=== PATIENT | female | born 1935 | race Caucasian/White ===

== ENCOUNTER 2021-10-31 13:27 | Inpatient (IN) ==
[2021-10-31 14:41] LABS: Partial Thromboplastin Ratio 0.9; Partial Thromboplastin Time 24.8 Seconds (21.0-31.0); Prothrombin Time 10.4 Seconds (9.0-12.0)
[2021-10-31 14:53] LABS: Basophils # (auto) 0.03 K/uL (0-0.2); Basophils % (auto) 0.4 %; Eosinophils # (auto) 0.03 K/uL (0-0.5); Eosinophils % (auto) 0.4 %; Hematocrit (blood only) 41.2 % (37-47); Hemoglobin 13.7 g/dL (12.0-16.0); Immature Granulocytes # (auto) 0.02 K/uL (0.00-0.02); Immature Granulocytes % (auto) 0.3 %; Lymphocytes # (auto) 1.87 K/uL (1.2-3.4); Lymphocytes % (auto) 26.7 %; Mean Corpuscular Hemoglobin 31.7 pg (25-34); Mean Corpuscular Hgb Conc 33.3 g/dL (32-36); Mean Corpuscular Volume 95.4 fL (80-100); Mean Platelet Volume 10.3 fL (7.4-10.4); Monocytes # (auto) 0.53 K/uL (0.11-0.59); Monocytes % (auto) 7.6 %; Neutrophils # (auto) 4.53 K/uL (1.4-6.5); Neutrophils % (auto) 64.6 %; Platelet Count 298 K/uL (130-400); RDW Coefficient of Variation 13.8 % (11.5-14.5); RDW Standard Deviation 47.7 fL (36.4-46.3); Red Blood Count 4.32 M/uL (4.2-5.4); White Blood Count 7.01 K/uL (4.8-10.8)
[2021-10-31 14:54] LABS: Alanine Aminotransferase 23 U/L (7-52); Albumin Globulin Ratio 1.3 (0.9-2); Albumin Level 4.2 gm/dl (3.4-5.0); Alkaline Phosphatase 40 U/L (34-104); Anion Gap 12 (3-11); Aspartate Aminotransferase 18 U/L (13-39); BUN Creatinine Ratio 25.6 (10-20); Bilirubin,Total 0.4 mg/dl (0.2-1.0); Blood Urea Nitrogen 32 mg/dl (6-23); Calcium 9.9 mg/dl (8.5-10.1); Carbon Dioxide 25 mmol/L (21-32); Chloride 100 mmol/L (98-107); Est GFR (African American) 44.8 ml/min; Est GFR (Non-African American) 38.6 ml/min; Globulin 3.2 gm/dl (2.5-4.0); Glucose 221 mg/dl (70-99(Fasting)); Potassium 4.1 mmol/L (3.5-5.1); Sodium 137 mmol/L (136-145); Total Protein 7.4 gm/dl (6.0-8.3)
--- NOTE | 2021-10-31 15:55 | Emergency Department Note ---
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 Patient states that time she did take her blood pressure was not feeling overall very well. The patient's systolic was greater than 200 systolic and when EMS arrived this was similar. The patient denies any fevers chills chest pains or shortness of br eath. The patient states that she has been having some erratic blood pressures over the last several weeks and is following Dr. Bauman with [facility]. Patient denies any alcohol tobacco or drug use. The patient denies any supplements stimulants or caffeine use. Patient did take 2 Tylenol this morning which she typically takes for arthritic changes or general body aches and had already taken this. Patient denies any numbness tingling or focal weakness. Patient denies any facial droop or slurred speech. The patient does have some GERD which is chronic but states that sometimes she has vision changes as she has a history of macular degeneration and had cataract surgeries completed within the last several months. Patient states that she has had some vision issues for some time but no acute issues today. Also of note the patient states that she currently resides in [place] but did recently moved from the [place] area to here to be closer to her family after she had developed COVID a year prior which is require hospitalization. ROS: See HPI for pertinent positives and negatives. A total of 10 systems were reviewed and otherwise negative. Past medical history: See below Surgical history: See below Social history: See below Physical Exam: GENERAL: NAD, wearing glasses, wearing a mask, non-toxic. EYE EXAM: Normal conjunctiva. PERRL, left greater than right anisocoria, extraocular muscles are intact, gross visual acuity intact with no visual field deficits. No obvious nystagmus noted. OROPHARYNX: Moist mucus membranes. Grossly normal dentition. NECK: Supple, no nuchal rigidity, no adenopathy, non-tender. No signs of meningismus. LUNGS: Clear to auscultation. Normal chest wall mechanics. HEART: NSR, no MRG. ABDOMEN: Abdomen soft, non-tender, normo-active bowel sounds, no masses, no rebound or guarding. BACK: No CVA TTP. SKIN: No rashes and no bruising. UPPER EXTREMITIES: Upper extremities are grossly normal. LOWER EXTREMITIES: Grossly normal, no edema. NEURO EXAM: A&O x3, cranial nerves II-XII grossly intact, normal speech, moves all 4 extremities on command w/o issue. Good finger to nose, no drift, no sensory deficits. Differential diagnoses: Migraine headache, meningitis, sinusitis, CO exposure, ICH, SAH, infection, tumor, headache, sinus thrombosis, arterial dissection, as well as other pathologies. Benign hypertension, hypertensive emergency, cardiovascular pathology, toxicologic, pheochromocytoma, electrolyte abnormality, renal disease, endorgan damage, as well as other pathologies. Course: Patient was seen and evaluated the bedside. Full history physical exam was performed. EKG interpreted by me Normal sinus rhythm, rate of 77, normal intervals, normal axis, slight elevation in lead III. No prior EKGs for comparison. No obvious concavity to the elevation in lead III Imaging Studies: See Below Cardiac monitoring: An order was placed for continuous cardiac monitoring. The monitor shows a rate of 87 with sinus rhythm. MDM: Patient was seen due to concern for headache and high blood pressure. The patient already had blood work completed. CT head and CT angiography of the head and neck were ordered as the patient did have some pupillary asymmetry which the patient states is unsure as whether or not there was there prior. Patient has a normal white count H&H and platelet count. The patient's kidney function with creatinine 1.2. Glucose elevated 221 patient is known diabetic. High-sensitivity troponin 17.7. EKG does show an elevation in lead III with Q waves no obvious concavity. The patient not complain of any chest pains or shortness of breath. Patient was treated with headache medication and a one- time dose of labetalol IV to help with blood pressure. Upon reassessment the patient did have improvement in her symptoms. The patient CT of the head is negative. CT angiography of the head is negative. CT angiography of the neck shows plaque within the right carotid bifurcation which is 70 per 80% stenotic in the proximal right ICA. I did convey these findings to the patient. I did discuss that given her positive troponin with associated elevated blood pressure do believe that the patient would benefit from observation and treatment. I did speak the on-call hospitalist Barber Day PA-C as well as Dr. Iverson. Past Med/Surg History Medical History DM2 (diabetes mellitus, type 2) H/O: HTN (hypertension) Surgical History Hx of cataract surgery Social History Smoking Status: Never smoker Hx Alcohol Use: No Hx Substance Use: No Feels Safe at Home: Yes Allergies Allergies Allergy/AdvReac Type Severity Reaction Status Date / Time latex Allergy Unknown Unknown Unverified 10/31/21 16:22 Penicillins Allergy Unknown Unknown Unverified 10/31/21 16:22 Sulfa (Sulfonamide Allergy Unknown Unknown Unverified 10/31/21 16:22 Antibiotics) Home Meds Home Medications Medication Instructions Recorded Confirmed Macular Degeneration Capsules 4 cap PO QAM 10/31/21 10/31/21 acetaminophen 500 mg tablet 1,000 mg PO Q8H PRN 10/31/21 10/31/21 aspirin 81 mg tablet,delayed 81 mg PO QAM 10/31/21 10/31/21 release atorvastatin 40 mg tablet 40 mg PO HS 10/31/21 10/31/21 coQ10 (ubiquinol) 100 mg capsule 100 mg PO QAM 10/31/21 10/31/21 cyanocobalamin (vitamin B-12) 1,000 mcg PO 3XWK 10/31/21 10/31/21 1,000 mcg tablet (Vitamin B-12) empagliflozin 25 mg tablet 25 mg PO QAM 10/31/21 10/31/21 (Jardiance) furosemide 20 mg tablet (Lasix) 20 mg PO 3XWK 10/31/21 10/31/21 ginkgo biloba 40 mg tablet 40 mg PO BID 10/31/21 10/31/21 glimepiride 2 mg tablet 2 mg PO DAILYBB 10/31/21 10/31/21 glimepiride 4 mg tablet 4 mg PO DAILYBB 10/31/21 10/31/21 lisinopril 20 mg tablet 20 mg PO BID 10/31/21 10/31/21 metformin 500 mg tablet 1,000 mg PO HS 10/31/21 10/31/21 metoprolol succinate 100 mg 100 mg PO QAM 10/31/21 10/31/21 tablet,extended release 24 hr polyvinyl alcohol-povidone (PF) 1 drp OPB BID 10/31/21 10/31/21 1.4 %-0.6 % eye drops in a dropperette (Refresh Classic (PF)) repaglinide 2 mg tablet 2 mg PO AC 10/31/21 10/31/21 triamcinolone acetonide 0.025 % 1 applic TOPICAL BID 10/31/21 10/31/21 topical cream Results & Data (ED) Vital Signs Vital Signs - 24 hr 10/31/21 13:57 10/31/21 15:20 10/31/21 16:10 Temperature 36.6 C Temperature Source Temporal Artery Scan Pulse Rate 89 Pulse Rate [Finger] Respiratory Rate 20 Respiratory Effort / Characteristics Non-Labored Spontaneous Non-Labored Respiratory Depth Normal Normal Respiratory Pattern Regular Regular Blood Pressure 213/111 H Blood Pressure [Right Arm] 190/96 H Blood Pressure Mean 145 Blood Pressure Mean [Right Arm] 127 Blood Pressure Position Sitting Pulse Oximetry 97 98 98 Oxygen Delivery Method Room Air Room Air Room Air Sepsis Recent Fever Within 48 Hours No Sepsis New/Unexplained Change in Mental Status No Sepsis Action Taken by Nursing No Action Required 10/31/21 16:53 10/31/21 17:00 Temperature Temperature Source Oral Pulse Rate Pulse Rate [Finger] 74 87 Respiratory Rate 18 Respiratory Effort / Characteristics Respiratory Depth Respiratory Pattern Blood Pressure Blood Pressure [Right Arm] 200/84 H 180/80 H Blood Pressure Mean Blood Pressure Mean [Right Arm] 122 113 Blood Pressure Position Pulse Oximetry 97 Oxygen Delivery Method Room Air Sepsis Recent Fever Within 48 Hours Sepsis New/Unexplained Change in Mental Status Sepsis Action Taken by [facility]dc Medications Current Medication List: was personally reviewed by me Laboratory Data Attestation: I reviewed the patient's lab results. Result diagrams: 10/31/21 14:09 10/31/21 14:09 Lab Results 10/31/21 10/31/21 10/31/21 Range/Units 14:09 14:09 14:09 WBC 7.01 (4.8-10.8) K/uL RBC 4.32 (4.2-5.4) M/uL Hgb 13.7 (12.0-16.0) g/dL Hct 41.2 (37-47) % MCV 95.4 (80-100) fL MCH 31.7 (25-34) pg MCHC 33.3 (32-36) g/dL RDW Std Deviation 47.7 H (36.4-46.3) fL RDW Coeff of Rojelio 13.8 (11.5-14.5) % Plt Count 298 (130-400) K/uL MPV 10.3 (7.4-10.4) fL Immature Gran % (Auto) 0.3 % Neut % (Auto) 64.6 % Lymph % (Auto) 26.7 % Platte % (Auto) 7.6 % Eos % (Auto) 0.4 % Baso % (Auto) 0.4 % Neut # (Auto) 4.53 (1.4-6.5) K/uL Lymph # (Auto) 1.87 (1.2-3.4) K/uL Platte # (Auto) 0.53 (0.11-0.59) K/uL Eos # (Auto) 0.03 (0-0.5) K/uL Baso # (Auto) 0.03 (0-0.2) K/uL Immature Gran # (Auto) 0.02 (0.00-0.02) K/uL PT 10.4 (9.0-12.0) Seconds INR 1.0 (0.9-1.1) APTT 24.8 (21.0-31.0) Seconds PTT Ratio 0.9 Sodium (136-145) mmol/L Potassium (3.5-5.1) mmol/L Chloride (98-107) mmol/L Carbon Dioxide (21-32) mmol/L Anion Gap (3-11) BUN (6-23) mg/dl Creatinine (0.6-1.2) mg/dl Est Cr Clr Drug Dosing Est GFR ( Amer) ml/min Est GFR (Non-Af Amer) ml/min BUN/Creatinine Ratio (10-20) Glucose (70-99(Fasting)) mg/dl Calcium (8.5-10.1) mg/dl Total Bilirubin (0.2-1.0) mg/dl AST (13-39) U/L ALT (7-52) U/L Alkaline Phosphatase (34-104) U/L Troponin I High Sens 17.7 H (0-14) pg/ml Total Protein (6.0-8.3) gm/dl Albumin (3.4-5.0) gm/dl Globulin (2.5-4.0) gm/dl Albumin/Globulin Ratio (0.9-2) 10/31/21 Range/Units 14:09 WBC (4.8-10.8) K/uL RBC (4.2-5.4) M/uL Hgb (12.0-16.0) g/dL Hct (37-47) % MCV (80-100) fL MCH (25-34) pg MCHC (32-36) g/dL RDW Std Deviation (36.4-46.3) fL RDW Coeff of Rojelio (11.5-14.5) % Plt Count (130-400) K/uL MPV (7.4-10.4) fL Immature Gran % (Auto) % Neut % (Auto) % Lymph % (Auto) % [place]atte % (Auto) % Eos % (Auto) % Baso % (Auto) % Neut # (Auto) (1.4-6.5) K/uL Lymph # (Auto) (1.2-3.4) K/uL [place]atte # (Auto) (0.11-0.59) K/uL Eos # (Auto) (0-0.5) K/uL Baso # (Auto) (0-0.2) K/uL Immature Gran # (Auto) (0.00-0.02) K/uL PT (9.0-12.0) Seconds INR (0.9-1.1) APTT (21.0-31.0) Seconds PTT Ratio Sodium 137 (136-145) mmol/L Potassium 4.1 (3.5-5.1) mmol/L Chloride 100 (98-107) mmol/L Carbon Dioxide 25 (21-32) mmol/L Anion Gap 12 H (3-11) BUN 32 H (6-23) mg/dl Creatinine 1.25 H (0.6-1.2) mg/dl Est Cr Clr Drug Dosing Not Reportable Est GFR ( Amer) 44.8 ml/min Est GFR (Non-Af Amer) 38.6 ml/min BUN/Creatinine Ratio 25.6 H (10-20) Glucose 221 H (70-99(Fasting)) mg/dl Calcium 9.9 (8.5-10.1) mg/dl Total Bilirubin 0.4 (0.2-1.0) mg/dl AST 18 (13-39) U/L ALT 23 (7-52) U/L Alkaline Phosphatase 40 (34-104) U/L Troponin I High Sens (0-14) pg/ml Total Protein 7.4 (6.0-8.3) gm/dl Albumin 4.2 (3.4-5.0) gm/dl Globulin 3.2 (2.5-4.0) gm/dl Albumin/Globulin Ratio 1.3 (0.9-2) Administered Medications Discontinued Medications Sodium Chloride (Nss) 500 mls @ 999 mls/hr IV .Q31M LUCAS Stop: 10/31/21 16:45 Last Infusion: 10/31/21 17:58 Dose: 0 mls/hr Documented by: [id number] Admin: 10/31/21 17:30 Dose: 999 mls/hr Documented by: [id number] Magnesium Sulfate/Dextrose (Magnesium Sulfate / D5w) 1 gm in 100 mls @ 100 mls/hr IV NOW ONE Stop: 10/31/21 17:06 Last Infusion: 10/31/21 17:54 Dose: 0 mls/hr Documented by: [id number] Admin: 10/31/21 16:41 Dose: 100 mls/hr Documented by: [id number] Sodium Chloride (Nss 1000ml) 500 mls @ 999 mls/hr IV .Q31M ONE Stop: 10/31/21 17:06 Last Admin: 10/31/21 17:58 Dose: 999 mls/hr Documented by: [id number] Ioversol (Optiray 320 125ml) 118 ml IV ONCE ONE Stop: 10/31/21 16:35 Last Admin: 10/31/21 16:34 Dose: 118 ml Documented by: [id number] Labetalol HCl (Labetalol Hcl Iv 5 Mg/Ml 20ml) 10 mg IV NOW STA Stop: 10/31/21 16:09 Last Admin: 10/31/21 16:26 Dose: 10 mg Documented by: [id number] Cosigned by: [id number] Ondansetron HCl (Ondansetron Inj 2 Mg/Ml 2 Ml Vial) 4 mg IV NOW STA Stop: 10/31/21 16:08 Last Admin: 10/31/21 16:26 Dose: 4 mg Documented by: [id number] Imaging Data Radiologist's Impression: Head CT 10/31/21 16:07 CT OF THE HEAD WITHOUT CONTRAST CLINICAL HISTORY: Headache. Pupillary asymmetry. COMPARISON STUDY: No previous studies for comparison. TECHNIQUE: Helical axial images of the head were obtained without IV contrast. Automated exposure control was utilized for the study. A dose lowering techn ique was utilized adhering to the principles of ALARA. FINDINGS: No acute intracranial hemorrhage, midline shift or mass effect is present. The ventricular system is unremarkable. The basal cisterns are patent. No extra-axial collections are present. There are no findings to suggest acute dural sinus thrombosis or acute territorial infarct. No significant calvarial abnormalities are present. Visualized portions of the sinuses and mastoid air cells are clear. IMPRESSION: No acute intracranial findings. ACT 112: Negative or not required by law. Electronically signed by: Demetrius Sena M.D. 10/31/2021 4:45 PM Head CTA 10/31/21 16:08 CT angio head w con CLINICAL HISTORY: L > R pupillary assymetry, frontal CAMACHO, elevated BP COMPARISON STUDY: CT brain without contrast from 10/23/2021 CT DOSE: 1054.64 mGy.cm TECHNIQUE: CT Angio of the brain was performed.followed by image post processing with coronal, and sagittal MIP reformats. Contrast Volume: Optiray 320, 118 ml FINDINGS: Vascular findings: There is normal enhancement within the internal carotid arteries bilaterally. There is normal enhancement noted within the anterior, middle and posterior cerebral arteries. Nonvascular findings: There is homogeneous attenuation of the brain parenchyma bilaterally. There is no evidence for an acute infarct or cerebral edema. IMPRESSION: Negative CT angiogram of the brain with contrast. ACT 112: Negative or not required by law. Electronically signed by: Clayton West M.D. 10/31/2021 4:47 PM Neck CTA 10/31/21 16:08 CT ANGIOGRAPHY OF THE NECK WITH CONTRAST CLINICAL HISTORY: L > R pupillary asymmetry, frontal CAMACHO, elevated BP COMPARISON STUDY: No previous studies for comparison. Technique: CT angiography of the carotid and vertebral arteries was obtained using Optiray and 3D reconstruction on an independent workstation. NASCET criteria was utilized. Automated exposure control was utilized for the study. A dose lowering technique was utilized adhering to the principles of ALARA. Findings: Visualized portions of lung apices are clear. No acute cervical spine fracture is noted. There is no cervical lymphadenopathy. Note is made of extensive calcified and not opacified plaque within the right carotid bifurcation. This results in a 70-80% stenosis of the proximal right internal carotid artery. Vessel measures approximately .7 mm in caliber at site of stenosis and 4 mm distally. The stenosis extends for approximately 5 mm in craniocaudal dimension. This plaque results in mild stenosis of the proximal right external carotid artery. No additional stenoses are identified within the bilateral common carotid or cervical internal carotid artery. There is moderate plaque within the left carotid bifurcation without stenosis. Bilateral cervical portions of the vertebral arteries are patent. There is plaque at the origin of the left vertebral artery without stenosis. There is no dissection within the neck. There is no aneurysm within the neck. IMPRESSION: 1. Extensive plaque within the right carotid bifurcation which results in 70-80% stenosis of the proximal right internal carotid artery. 2. No additional stenoses within the bilateral common carotid, cervical internal carotid or vertebral arteries. ACT 112: Negative or not required by law. Electronically signed by: Demetrius Sena M.D. 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 Patient Disposition: Admitted As Inpatient Forms Stand Alone Forms: My [facility] Prescriptions Prescriptions: No Action atorvastatin 40 mg Tablet 40 mg PO HS RF: 0 metformin 500 mg Tablet 1,000 mg PO HS RF: 0 repaglinide [Prandin] 2 mg Tablet 2 mg PO AC RF: 0 lisinopril 20 mg Tablet 20 mg PO BID RF: 0 metoprolol succinate 100 mg Tablet Extended Release 24 Hr 100 mg PO QAM RF: 0 cyanocobalamin (vitamin B-12) [Vitamin B-12] 1,000 mcg Tablet 1,000 mcg PO 3XWK RF: 0 aspirin [Aspir-81] 81 mg Tablet,Delayed Release (Dr/Ec) 81 mg PO QAM RF: 0 acetaminophen 500 mg Tablet 1,000 mg PO Q8H PRN (Reason: Pain) RF: 0 glimepiride 2 mg Tablet 2 mg PO DAILYBB RF: 0 ginkgo biloba 40 mg Tablet 40 mg PO BID RF: 0 triamcinolone acetonide [Aristocort] 0.025 % Cream 1 applic TOPICAL BID RF: 0 glimepiride 4 mg Tablet 4 mg PO DAILYBB RF: 0 furosemide [Lasix] 20 mg Tablet 20 mg PO 3XWK RF: 0 Refresh Classic (PF) 1.4-0.6 % Dropperette 1 drp OPB BID RF: 0 coQ10 (ubiquinol) 100 mg Capsule 100 mg PO QAM RF: 0 Jardiance 25 mg Tablet 25 mg PO QAM RF: 0 Macular Degeneration Capsules 4 cap PO QAM RF: 0 Referrals Referrals: PCP,NO [Physician] -
[2021-10-31] MEDS ORDERED: ONDANSETRON INJ 2 MG/ML 2 ML VIAL IV STA (16:07)
[2021-10-31] MEDS ORDERED: MAGNESIUM SULFATE / D5W 1 GM/100 ML BAG IV ONE (16:07)
[2021-10-31] MEDS ORDERED: LABETALOL HCL IV 5 MG/ML 20ML IV STA (16:08)
[2021-10-31] MEDS ORDERED: SODIUM CHLORIDE 0.9% 500 ML IV SCH (16:15)
[2021-10-31] MEDS ORDERED: OPTIRAY 320 125ml IV ONE (16:34)
[2021-10-31] MEDS ORDERED: SODIUM CHLORIDE 0.9% 1000ML 500 ML IV ONE (16:36)
--- NOTE | 2021-10-31 16:47 | CT Scan Report ---
CT OF THE HEAD WITHOUT CONTRAST CLINICAL HISTORY: Headache. Pupillary asymmetry. COMPARISON STUDY: No previous studies for comparison. TECHNIQUE: Helical axial images of the head were obtained without IV contrast. Automated exposure con trol was utilized for the study. A dose lowering technique was utilized adhering to the principles o f ALARA. FINDINGS: No acute intracranial hemorrhage, midline shift or mass effect is present. The ventricular system is unremarkable. The basal cisterns are patent. No extra-axial collections are present. There are no findings to suggest acute dural sinus thrombosis or acute territorial infarct. No significant calvarial abnormalities are present. Visualized portions of the sinuses and mastoid air cells are dayanna ar. IMPRESSION: No acute intracranial findings. ACT 112: Negative or not required by law. Electronically signed by: Demetrius Sena M.D. 10/31/2021 4:45 PM
--- NOTE | 2021-10-31 16:49 | CT Scan Report ---
CT angio head w con CLINICAL HISTORY: L > R pupillary assymetry, frontal CAMACHO, elevated BP COMPARISON STUDY: CT brain without contrast from 10/23/2021 CT DOSE: 1054.64 mGy.cm TECHNIQUE: CT Angio of the brain was performed.followed by image post processing with coronal, and s agittal MIP reformats. Contrast Volume: Optiray 320, 118 ml FINDINGS: Vascular findings: There is normal enhancement within the internal carotid arteries bilaterally. The re is normal enhancement noted within the anterior, middle and posterior cerebral arteries. Nonvascular findings: There is homogeneous attenuation of the brain parenchyma bilaterally. There is no evidence for an acute infarct or cerebral edema. IMPRESSION: Negative CT angiogram of the brain with contrast. ACT 112: Negative or not required by law. Electronically signed by: Clayton West M.D. 10/31/2021 4:47 PM
--- NOTE | 2021-10-31 16:56 | CT Scan Report ---
CT ANGIOGRAPHY OF THE NECK WITH CONTRAST CLINICAL HISTORY: L > R pupillary asymmetry, frontal CAMACHO, elevated BP COMPARISON STUDY: No previous studies for comparison. Technique: CT angiography of the carotid and vertebral arteries was obtained using Optiray and 3D rec onstruction on an independent workstation. NASCET criteria was utilized. Automated exposure control was utilized for the study. A dose lowering technique was utilized adhering to the principles of ALA RA. Findings: Visualized portions of lung apices are clear. No acute cervical spine fracture is noted. Th ere is no cervical lymphadenopathy. Note is made of extensive calcified and not opacified plaque with in the right carotid bifurcation. This results in a 70-80% stenosis of the proximal right internal ca rotid artery. Vessel measures approximately .7 mm in caliber at site of stenosis and 4 mm distally. T he stenosis extends for approximately 5 mm in craniocaudal dimension. This plaque results in mild yosi nosis of the proximal right external carotid artery. No additional stenoses are identified within the bilateral common carotid or cervical internal carotid artery. There is moderate plaque within the le ft carotid bifurcation without stenosis. Bilateral cervical portions of the vertebral arteries are pa tent. There is plaque at the origin of the left vertebral artery without stenosis. There is no dissec tion within the neck. There is no aneurysm within the neck. IMPRESSION: 1. Extensive plaque within the right carotid bifurcation which results in 70-80% stenosis of the prox imal right internal carotid artery. 2. No additional stenoses within the bilateral common carotid, cervical internal carotid or vertebral arteries. ACT 112: Negative or not required by law. Electronically signed by: Demetrius Sena M.D. 10/31/2021 4:54 PM
[2021-10-31] MEDS ORDERED: STAT IV Infusion **Titration per Protocol STA (18:50)
[2021-10-31] MEDS: niCARdipine 25 MG in SODIUM CHLORIDE 0.9% 240 ML IV SCH ×2 (19:05→23:32)
--- NOTE | 2021-10-31 19:12 | History & Physical Report ---
Date of Service October 31, 2021 Assessment & Plan (1) Hypertensive urgency: (2) Elevated troponin I level: (3) Carotid artery stenosis: (4) Diabetes mellitus with kidney complication, without long-term current use of insulin: Plan: HTNsive urgency- No hypertensive emergency at this point. BP persistently in 220s-230s despite a dose of labetalol in ED. will admit to PCU on nicardipine drip with aim to slowly decrease the blood pressure. Continue home lisinopril, toprol and lasix- will uptitrate home meds once BP better controlled - will get echo and renal duplex; low salt diet Carotid artery disease- seen in CT- 70-80% stenosis- vascular surgery eval Elevated trop- mild elevation, likely demand ischemia, no CP, no EKG changes, no prior cardiac history. Recheck in am. Continue tele. 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 History of Present Illness Chief Complaint: Frontal headache, fogginess- hypertensive urgency Primary Care Provider: Dalila Bauman MD 86 yo female with h/o HTN, DM-2, CKD who presented to the ED with hypertensive urgency. Patient is from [place] and moved here [address] Bauman. Last visit 10/16. Multiple medications were adjusted including her blood pressure medications and diabetic medications. Did not check her BP in between as asymptomatic. This morning, after breakfast around 11 am, she had a frontal headache along with worsening head fogginess (had foggy head since Covid last year but worse. She took her BP as she was not feeling very well and her BP monitor would not read. EMS was called and her BP was in 230s for EMS. In the ED, BP in 190s-230s. Labs, EKG and CT reviewed. No neurological symptoms or deficits. Denies any chest pain, lightheadedness dizziness. States she did take her lisinopril and toprol this morning. Her BP was in 230s during my encounter even after iv labetalol but she was comfortable and neurologically intact. She was asking for food and drink. States she is to get echo and renal US as OP and requested to be done here. Allergies Allergy/AdvReac Type Severity Reaction Status Date / Time latex Allergy Unknown Unknown Unverified 10/31/21 16:22 Penicillins Allergy Unknown Unknown Unverified 10/31/21 16:22 Sulfa (Sulfonamide Allergy Unknown Unknown Unverified 10/31/21 16:22 Antibiotics) Home Medications Medication Instructions Recorded Confirmed Type Macular Degeneration Capsules 4 cap PO QAM 10/31/21 10/31/21 History acetaminophen 500 mg tablet 1,000 mg PO Q8H PRN 10/31/21 10/31/21 History aspirin 81 mg tablet,delayed 81 mg PO QAM 10/31/21 10/31/21 History release atorvastatin 40 mg tablet 40 mg PO HS 10/31/21 10/31/21 History coQ10 (ubiquinol) 100 mg capsule 100 mg PO QAM 10/31/21 10/31/21 History cyanocobalamin (vitamin B-12) 1,000 mcg PO 3XWK 10/31/21 10/31/21 History 1,000 mcg tablet (Vitamin B-12) empagliflozin 25 mg tablet 25 mg PO QAM 10/31/21 10/31/21 History (Jardiance) furosemide 20 mg tablet (Lasix) 20 mg PO 3XWK 10/31/21 10/31/21 History ginkgo biloba 40 mg tablet 40 mg PO BID 10/31/21 10/31/21 History glimepiride 2 mg tablet 2 mg PO DAILYBB 10/31/21 10/31/21 History glimepiride 4 mg tablet 4 mg PO DAILYBB 10/31/21 10/31/21 History lisinopril 20 mg tablet 20 mg PO BID 10/31/21 10/31/21 History metformin 500 mg tablet 1,000 mg PO HS 10/31/21 10/31/21 History metoprolol succinate 100 mg 100 mg PO QAM 10/31/21 10/31/21 History tablet,extended release 24 hr polyvinyl alcohol-povidone (PF) 1 drp OPB BID 10/31/21 10/31/21 History 1.4 %-0.6 % eye drops in a dropperette (Refresh Classic (PF)) repaglinide 2 mg tablet 2 mg PO AC 10/31/21 10/31/21 History triamcinolone acetonide 0.025 % 1 applic TOPICAL BID 10/31/21 10/31/21 History topical cream Past Med/Surg History Medical History DM2 (diabetes mellitus, type 2) H/O: HTN (hypertension) Surgical History Hx of cataract surgery Social History Smoking Status: Never smoker Hx Alcohol Use: No Hx Substance Use: No Feels Safe at Home: Yes Review of Systems Review of Systems: All systems reviewed & are unremarkable except as noted in Subjective Physical Exam Physical Exam: General: Sitting comfortably in bed, not in distress, on room air HEENT: EOMI, ANABEL, MMM Chest: Clear breath sounds bilaterally, no wheezes or crackles CVS: Regular rate and rhythm, normal heart sounds, no murmur Abdomen: Soft, non tender, not distended, normal bowel sounds Neuro: Awake, alert, oriented, conversing well, non focal Extremities: No cyanosis, clubbing or edema Results & Data Results & Data ([facility]) Vital Signs (Past 12 Hours) Vital Signs Temp Pulse Pulse Resp BP BP Pulse Ox 10/31/21 18:33 230/100 H 10/31/21 18:25 78 234/127 H 10/31/21 17:00 87 18 180/80 H 97 10/31/21 16:53 74 200/84 H 10/31/21 16:10 98 10/31/21 15:20 190/96 H 98 10/31/21 13:57 36.6 C 89 20 213/111 H 97 Laboratory Results Short CBC 10/31/21 Range/Units 14:09 WBC 7.01 (4.8-10.8) K/uL Hgb 13.7 (12.0-16.0) g/dL Hct 41.2 (37-47) % Plt Count 298 (130-400) K/uL BMP 10/31/21 14:09 Sodium 137 Potassium 4.1 Chloride 100 Carbon Dioxide 25 BUN 32 H Creatinine 1.25 H Glucose 221 H Calcium 9.9 Liver Function 10/31/21 Range/Units 14:09 Total Bilirubin 0.4 (0.2-1.0) mg/dl AST 18 (13-39) U/L ALT 23 (7-52) U/L Alkaline Phosphatase 40 (34-104) U/L Albumin 4.2 (3.4-5.0) gm/dl Diagnostic Findings Head CT 10/31/21 16:07 CT OF THE HEAD WITHOUT CONTRAST CLINICAL HISTORY: Headache. Pupillary asymmetry. COMPARISON STUDY: No previous studies for comparison. TECHNIQUE: Helical axial images of the head were obtained without IV contrast. Automated exposure control was utilized for the study. A dose lowering technique was utilized adhering to the principles of ALARA. FINDINGS: No acute intracranial hemorrhage, midline shift or mass effect is present. The ventricular system is unremarkable. The basal cisterns are patent. No extra-axial collections are present. There are no findings to suggest acute dural sinus thrombosis or acute territorial infarct. No significant calvarial abnormalities are present. Visualized portions of the sinuses and mastoid air cells are clear. IMPRESSION: No acute intracranial findings. ACT 112: Negative or not required by law. Electronically signed by: Demetrius Sena M.D. 10/31/2021 4:45 PM Head CTA 10/31/21 16:08 CT angio head w con CLINICAL HISTORY: L > R pupillary assymetry, frontal CAMACHO, elevated BP COMPARISON STUDY: CT brain without contrast from 10/23/2021 CT DOSE: 1054.64 mGy.cm TECHNIQUE: CT Angio of the brain was performed.followed by image post processing with coronal, and sagittal MIP reformats. Contrast Volume: Optiray 320, 118 ml FINDINGS: Vascular findings: There is normal enhancement within the internal carotid arteries bilaterally. There is normal enhancement noted within the anterior, middle and posterior cerebral arteries. Nonvascular findings: There is homogeneous attenuation of the brain parenchyma bilaterally. There is no evidence for an acute infarct or cerebral edema. IMPRESSION: Negative CT angiogram of the brain with contrast. ACT 112: Negative or not required by law. Electronically signed by: Clayton West M.D. 10/31/2021 4:47 PM Neck CTA 10/31/21 16:08 CT ANGIOGRAPHY OF THE NECK WITH CONTRAST CLINICAL HISTORY: L > R pupillary asymmetry, frontal CAMACHO, elevated BP COMPARISON STUDY: No previous studies for comparison. Technique: CT angiography of the carotid and vertebral arteries was obtained using Optiray and 3D reconstruction on an independent workstation. NASCET criteria was utilized. Automated exposure control was utilized for the study. A dose lowering technique was utilized adhering to the principles of ALARA. Findings: Visualized portions of lung apices are clear. No acute cervical spine fracture is noted. There is no cervical lymphadenopathy. Note is made of extensive calcified and not opacified plaque within the right carotid bifurcation. This results in a 70-80% stenosis of the proximal right internal carotid artery. Vessel measures approximately .7 mm in caliber at site of stenosis and 4 mm distally. The stenosis extends for approximately 5 mm in craniocaudal dimension. This plaque results in mild stenosis of the proximal right external carotid artery. No additional stenoses are identified within the bilateral common carotid or cervical internal carotid artery. There is moderate plaque within the left carotid bifurcation without stenosis. Bilateral cervical portions of the vertebral arteries are patent. There is plaque at the origin of the left vertebral artery without stenosis. There is no dissection within the neck. There is no aneurysm within the neck. IMPRESSION: 1. Extensive plaque within the right carotid bifurcation which results in 70-80% stenosis of the proximal right internal carotid artery. 2. No additional stenoses within the bilateral common carotid, cervical internal carotid or vertebral arteries. ACT 112: Negative or not required by law. Electronically signed by: Demetrius Sena M.D. 10/31/2021 4:54 PM Medications Administered Current Inpatient Medications Nicardipine HCl 25 mg/ Sodium (Chloride) 250 mls @ 50 mls/hr IV .Q5H [facility]; Protocol Stop: 11/30/21 18:59
[2021-10-31] MEDS ORDERED: GLUCOSE 10 TABS/TUBE PO PRN (22:00)
[2021-10-31] MEDS ORDERED: CARBOHYDRATES FOR HYPOGLYCEMIA PO PRN (22:00)
[2021-10-31] MEDS ORDERED: GLUCOSE 40% GEL 15 GM TUBE PO PRN (22:00)
[2021-10-31] MEDS ORDERED: GLUCAGON FOR INJ 1 MG VIAL SQ PRN (22:00)
[2021-10-31] MEDS ORDERED: DEXTROSE 50% 50 ML SYRINGE IV PRN (22:00)
[2021-10-31] MEDS: ACETAMINOPHEN 500 MG TAB PO PRN (22:29)
[2021-10-31] MEDS: INSULIN ASPART PER UNIT SC SCH (23:22)
[2021-10-31] MEDS: INSULIN GLARGINE SOLOSTAR 100 UNITS/ML 3 ML PEN SC SCH (23:23)
[2021-10-31] MEDS: lisinopril 20 MG TAB PO SCH (23:24)
[2021-10-31] MEDS: ATORVASTATIN 40 MG TAB PO SCH (23:24)
[2021-11-01] MEDS: niCARdipine 25 MG in SODIUM CHLORIDE 0.9% 240 ML IV SCH ×7 (02:30→17:06)
[2021-11-01] MEDS ORDERED: NITROGLYCERIN SL 0.4 MG/TAB TAB SL STA ×2 (05:26→05:29)
[2021-11-01] MEDS ORDERED: NITROGLYCERIN SL 0.4 MG/TAB TAB ONE (05:28)
[2021-11-01] MEDS ORDERED: MoRPHine SULFATE 2 MG/ML CARP IV STA (05:48)
--- NOTE | 2021-11-01 06:06 | Electrocardiogram Report ---
Test Reason : Blood Pressure : / mmHG Vent. Rate : 077 BPM Atrial Rate : 077 BPM P-R Int : 198 ms QRS Dur : 086 ms QT Int : 374 ms P-R-T Axes : 102 033 086 degrees QTc Int : 423 ms Normal sinus rhythm Cannot rule out Anterior infarct , age undetermined Possible Inferior infarct Abnormal ECG No previous ECGs available Confirmed by Nathen Knutson ([id number]) on 11/01/2021 6:05:41 AM Referred By: Confirmed By:Nathen Knutson
[2021-11-01 07:21] LABS: Hemoglobin 12.4 g/dL (12.0-16.0); Mean Corpuscular Hgb Conc 32.6 g/dL (32-36); Mean Corpuscular Volume 98.2 fL (80-100); Mean Platelet Volume 10.2 fL (7.4-10.4); Platelet Count 280 K/uL (130-400); RDW Standard Deviation 49.7 fL (36.4-46.3); Red Blood Count 3.87 M/uL (4.2-5.4); White Blood Count 9.47 K/uL (4.8-10.8)
[2021-11-01 07:26] LABS: Troponin I High Sensitivity 33.8 pg/ml (0-14)
[2021-11-01 07:31] LABS: BUN Creatinine Ratio 19.5 (10-20); Calcium 9.1 mg/dl (8.5-10.1); Creatinine Clr Calc Pharmacy 26.4 ml/min; Est GFR (African American) 32.3 ml/min; Est GFR (Non-African American) 27.8 ml/min; Potassium 3.9 mmol/L (3.5-5.1)
[2021-11-01] MEDS ORDERED: ALUMINUM/MAGNESIUM SUSP 30 ML UDC PO STA (07:33)
[2021-11-01 08:40] LABS: Estimated Average Glucose 249 mg/dl; Hemoglobin A1C 10.3 % (4.5-5.6)
--- NOTE | 2021-11-01 08:54 | Ultrasound Report ---
US duplex renal artery CLINICAL HISTORY: uncontrolled hypertension COMPARISON STUDY: No previous studies for comparison. TECHNIQUE: Color and duplex Doppler sonography of the abdominal aorta and bilateral renal arteries wa s performed. FINDINGS: There is moderate bilateral renal cortical thinning. The right kidney measured 9.9 cm in le ngth and the left measured 11.5 cm. There is no hydronephrosis. Peak systolic velocity within the abd ominal aorta was 163 cm/s. Maximal velocity within the left renal artery was within its proximal aspe ct, with a peak systolic velocity of 239 cm/s. The left renal to aortic ratio was 1.47. Systolic upst rokes within the segmental vessels of the left kidney were within normal limits. Peak systolic veloci ty within the right renal artery was 113 cm/s. Delayed systolic upstrokes within the segmental vessel s of the right kidney were noted. IMPRESSION: 1. Mildly elevated velocities within the left renal artery with without significant increase in renal to aortic ratio. Normal segmental waveforms within the left kidney. These findings are equivocal for left-sided renal artery stenosis. A CTA of the abdomen could be obtained for further evaluation. 2. Normal velocities within the right renal artery however delayed upstrokes within the segmental ves sels raise the possibility of an upstream stenosis. This can be assessed on CTA. ACT 112: Negative or not required by law. Electronically signed by: Demetrius Sena M.D. 11/01/2021 8:53 AM
[2021-11-01] MEDS ORDERED: FUROSEMIDE 20 MG TAB PO SCH (09:00)
[2021-11-01] MEDS: lisinopril 20 MG TAB PO SCH ×2 (09:03→20:31)
[2021-11-01] MEDS: METOPROLOL SUCC 50MG EXT REL TAB PO SCH (09:03)
[2021-11-01] MEDS: PANTOprazole 40 MG TAB PO SCH (09:03)
[2021-11-01] MEDS: ASPIRIN 81 MG ECTAB PO SCH (09:03)
--- NOTE | 2021-11-01 09:06 | Consultation ---
Date of Consultation November 01, 2021 Assessment & Plan (1) More than 50 percent stenosis of right internal carotid artery: Pt with incidental finding of 70% R ICA stenosis. She is asymptomatic from this. After discussion with Dr Witt, recommends pt be reeval in 6 months with a carotid US and OV. Our office will call pt to schedule. Please call if needed. History of Present Illness Reason for Consultation: R ICA stenosis Attending Physician: Francisco Iverson MD History of Present Illness 86 yo f with hx of DMII, HTN, macular degeneration, hypercholesterolemia, vertigo, admitted with hypertensive urgency, seen in consultation today for R ICA stenosis of 70% by CTA. Pt states no prior knowledge of this. Denies amaurosis, unilateral extremity weakness or numbness, facial droop, slurred speech, fever, chest pain, SOB, abd pain, N/V, rest pain, claudication, other complaints. Pt states she lives independently but does have family nearby. CTA neck demonstrates approx 70% R ICA. Allergies Allergy/AdvReac Type Severity Reaction Status Date / Time latex Allergy Unknown Unknown Unverified 10/31/21 16:22 Penicillins Allergy Unknown Unknown Unverified 10/31/21 16:22 Sulfa (Sulfonamide Allergy Unknown Unknown Unverified 10/31/21 16:22 Antibiotics) Home Medications Medication Instructions Recorded Confirmed Type Macular Degeneration Capsules 4 cap PO QAM 10/31/21 10/31/21 History acetaminophen 500 mg tablet 1,000 mg PO Q8H PRN 10/31/21 10/31/21 History aspirin 81 mg tablet,delayed 81 mg PO QAM 10/31/21 10/31/21 History release atorvastatin 40 mg tablet 40 mg PO HS 10/31/21 10/31/21 History coQ10 (ubiquinol) 100 mg capsule 100 mg PO QAM 10/31/21 10/31/21 History cyanocobalamin (vitamin B-12) 1,000 mcg PO 3XWK 10/31/21 10/31/21 History 1,000 mcg tablet (Vitamin B-12) empagliflozin 25 mg tablet 25 mg PO QAM 10/31/21 10/31/21 History (Jardiance) furosemide 20 mg tablet (Lasix) 20 mg PO 3XWK 10/31/21 10/31/21 History ginkgo biloba 40 mg tablet 40 mg PO BID 10/31/21 10/31/21 History glimepiride 2 mg tablet 2 mg PO DAILYBB 10/31/21 10/31/21 History glimepiride 4 mg tablet 4 mg PO DAILYBB 10/31/21 10/31/21 History lisinopril 20 mg tablet 20 mg PO BID 10/31/21 10/31/21 History metformin 500 mg tablet 1,000 mg PO HS 10/31/21 10/31/21 History metoprolol succinate 100 mg 100 mg PO QAM 10/31/21 10/31/21 History tablet,extended release 24 hr polyvinyl alcohol-povidone (PF) 1 drp OPB BID 10/31/21 10/31/21 History 1.4 %-0.6 % eye drops in a dropperette (Refresh Classic (PF)) repaglinide 2 mg tablet 2 mg PO AC 10/31/21 10/31/21 History triamcinolone acetonide 0.025 % 1 applic TOPICAL BID 10/31/21 10/31/21 History topical cream Patient History Medical History DM2 (diabetes mellitus, type 2) H/O: HTN (hypertension) Surgical History Hx of cataract surgery Social History Smoking Status: Never smoker Second Hand Exposure: Yes; Do You Dip or Chew Tobacco: No; Hx Alcohol Use: Yes Alcohol type: wine Hx Substance Use: No Preferred Language: Slovenian Communication Ability: Effective Office Equipment Mechanic Required: No Beliefs That Will Affect Care: None Current Living Situation: Alone Other Information That Helps Us Care for You: No Feels Safe at Home: Yes Safety Concerns: Feels Safe At This Time Assistive Devices: Walker Review of Systems Review of Systems: All systems reviewed & are unremarkable except as noted in HPI & below CAMACHO yesterday upon admission, improved today. Physical Exam Constitutional: WD/WN, vitals as above + obese, cooperative and comfortable; not in distress ENMT: Ears: no hearing impairment Neck: trachea midline Respiratory: normal respiratory effort, lungs clear to auscultation Auscultation: + diminished lung sounds Cardiovascular: Rate/Rhythm: regular rate and regular rhythm Vessels: + carotid bruit, femoral pulses present, posterior tibial pulses present, dorsalis pedis pulses present, brachial pulses present and radial pulses present; + abno rmal peripheral pulses Extremities: normal capillary refill and + edema (trace) Gastrointestinal (Abdomen): Inspection/Auscultation: abdomen normal to inspection and normal bowel sounds Percussion/Palpation: abdomen soft; abdomen nontender Musculoskeletal: no cyanosis or clubbing, extremities motor strength 5/5 Skin: no rashes, warm and dry Neurologic: moves all extremities and awake; no focal motor deficits and not confused Psychiatric: A+Ox3, euthymic affect Results & Data ([facility]) Vital Signs (Past 12 Hours) Vital Signs Temp Pulse Pulse Resp BP Pulse Ox 11/01/21 08:38 85 163/63 H 11/01/21 07:50 91 H 163/92 H 11/01/21 07:31 68 151/57 H 11/01/21 07:00 71 126/55 L 11/01/21 06:30 83 146/56 H 11/01/21 06:00 79 165/60 H 11/01/21 05:50 146/62 H 11/01/21 05:46 79 133/50 L 11/01/21 05:09 176/64 H 11/01/21 04:48 105 H 167/62 H 11/01/21 04:00 36.9 C 85 18 140/58 L 96 11/01/21 03:30 175/67 H 11/01/21 03:00 82 146/60 H 11/01/21 02:30 83 175/85 H 11/01/21 02:00 164/53 H 11/01/21 01:30 88 16 158/56 H 11/01/21 01:00 151/55 H 11/01/21 00:30 146/53 H 11/01/21 00:15 155/57 H 11/01/21 00:00 66 161/60 H 10/31/21 23:46 140/60 10/31/21 23:30 190/99 H 10/31/21 23:15 157/60 H 10/31/21 23:00 88 177/72 H 10/31/21 22:43 173/74 H 10/31/21 22:20 36.8 C 78 18 200/72 H 96
[2021-11-01] MEDS: INSULIN GLARGINE SOLOSTAR 100 UNITS/ML 3 ML PEN SC SCH ×3 (09:11→20:31)
[2021-11-01] MEDS: INSULIN ASPART PER UNIT SC SCH ×4 (09:38→20:32)
--- NOTE | 2021-11-01 11:31 | XRay Report ---
XR chest 1V portable HISTORY: hypertension COMPARISON: None. FINDINGS: No pneumothorax. No pleural effusions. The cortex and what is mildly enlarged. A few bibasi lar linear densities consistent with subsegmental atelectasis. Otherwise, no focal lung consolidation s to suggest pneumonia. No evidence for pulmonary edema. There are calcifications within the aortic k nob. Degenerative changes noted within the shoulder. IMPRESSION: Chronic changes as described above. No acute process within the chest. ACT 112: Negative or not required by law. Electronically signed by: Alber Capellan M.D. 11/01/2021 11:30 AM
[2021-11-01] MEDS ORDERED: VERAPAMIL HCL 40 MG TAB PO ONE (12:21)
[2021-11-01] MEDS ORDERED: SODIUM CHLORIDE 0.9% 1000ML 1,000 ML IV SCH (12:30)
--- NOTE | 2021-11-01 12:33 | Cardiology Consultation ---
Date of Consultation November 01, 2021 Assessment & Plan (1) Hypertensive urgency: (2) Elevated troponin I level: (3) Carotid artery stenosis: 86 year old female (1) Hypertensive urgency: Patient with longstanding history of difficult to control hypertension. Reviewed her medication regimen for when she initially established with local care in January,. At that time she was on amlodipine 5 mg daily which had since been discontinued apparently in early October, due to concerns of edema. She had previously been on lisinopril 10 mg daily and this is most recently been titrated to 20 mg twice daily. She had previously been on spironolactone 25 mg daily. This was cut back to 12.5 mg daily in January,, and then discontinued completely in June,, apparently due to mildly elevated potassium level, 5.2 mmol/L noted at the time medication was discontinued. She has been on metoprolol succinate on a chronic basis 100 mg daily which is unchanged. More recently, Lasix 20 mg every Thursday added. Patient notes that she has some degree of frustration and feels she would understand her medication regimen if she could take the same medication every day. Present we will wean her nicardipine infusion and start short acting verapamil for blood pressure and negative inotropic effects, 40 mg 3 times daily, with plans to transition it to long-acting formulation as tolerated. Holding furosemide due to acute increase in her creatinine. She tolerates a daily dose of loop diuretic, reinitiation of low-dose spironolactone, 25 mg daily may be reasonable in the future, but noted with recent increase in the lisinopril, hyperkalemia may once again be an issue. (2) Elevated troponin I level: Transient chest tightness, in the setting of hospitalization elevated blood pressure. EKG performed x2 without acute findings. J-point elevation noted in the inferior leads at time of EKG at 10:34 AM, but she certainly does not have symptoms to suggest that she is having a transmural myocardial infarction. Her echocardiogram performed this morning revealed normal LV wall motion, with hyperdynamic left ventricular systolic function. Mild elevation in her at bedtime troponin is likely explained on the part of hyperdynamic left ventricular systolic function in the setting of high blood pressure. She denies having had a past history of coronary heart disease. Continue chronic therapy with aspirin. (3) Carotid artery stenosis: 70% right internal carotid stenosis noted on CT angiogram of the neck vessels. No neurologic symptoms. Patient seen by vascular surgery. Agree with risk factor management such as blood pressure control, ongoing statin therapy with atorvastatin 40 mg daily, vascular recommends clinic follow-up with them and repeat imaging at a 6-month interval. (4) acute kidney injury Baseline creatinine typically around 1.3, with measurement on presentation last evening 1.25, up to 1.64 today, having received a contrast dose. Proceed with gentle IV fluids, normal saline, 70 ml / hr , to stop after 1 L or sooner. History of Present Illness Attending Physician: Francisco Iverson MD History of Present Illness Ramila Urrutia is a delightful 86 year old female seen in cardiology consultation per the request of Dr Iverson for the evaluation of difficult to control hypertension , chest pain, and mild elevation in HS troponin. Patient moved to the area from [facility] in 2020. She moved to be closer to her family, and notes that her daughter works in the [employer] at [facility] [employer]. The patient describes a longstanding history of difficulty control hypertension. She had been followed intermittently by cardiology in the past for 30 years. She describes having been hospitalized on 2 separate occasions in the past for uncontrolled hypertension. The most recent episode had occurred 4 years ago at which time she had a 3-day hospital stay. Yesterday, she was in her normal state of health. She got up and had breakfast at 8 AM. She took a nap at 11 AM, and when she got up she felt a fogginess with regards to her thinking. She notes that she has had some degree of foggy thinking since having been ill with COVID several months ago. She attempted to take her BP at home , however it was so high the cuff would not register, prompting presentation to the ED. Her presenting blood pressure 10/31/2021 at 1357 was 213/111. Blood pressure reading last night at 1833 was 230/100 mmHg. Ultimately she was admitted to room 210, and placed on nicardipine infusion with significant interval improvement in her blood pressures. Most recent systolic blood pressures in the 130s to 140s. Currently nicardipine infusion has been titrated down to 5 mcg/min, with intention to cut that back to 2.5 mcg/min imminently. Present the patient feels well. She states that her mild headache symptom is improved. She did note that at 4 AM she had a transient episode of what she felt like it was a chest tightness feeling like a bag of sugar was on her chest. This is also improved. Allergies Allergy/AdvReac Type Severity Reaction Status Date / Time latex Allergy Unknown Unknown Unverified 10/31/21 16:22 Penicillins Allergy Unknown Unknown Unverified 10/31/21 16:22 Sulfa (Sulfonamide Allergy Unknown Unknown Unverified 10/31/21 16:22 Antibiotics) Home Medications Medication Instructions Recorded Confirmed Type Macular Degeneration Capsules 4 cap PO QAM 10/31/21 10/31/21 History acetaminophen 500 mg tablet 1,000 mg PO Q8H PRN 10/31/21 10/31/21 History aspirin 81 mg tablet,delayed 81 mg PO QAM 10/31/21 10/31/21 History release atorvastatin 40 mg tablet 40 mg PO HS 10/31/21 10/31/21 History coQ10 (ubiquinol) 100 mg capsule 100 mg PO QAM 10/31/21 10/31/21 History cyanocobalamin (vitamin B-12) 1,000 mcg PO 3XWK 10/31/21 10/31/21 History 1,000 mcg tablet (Vitamin B-12) empagliflozin 25 mg tablet 25 mg PO QAM 10/31/21 10/31/21 History (Jardiance) furosemide 20 mg tablet (Lasix) 20 mg PO 3XWK 10/31/21 10/31/21 History ginkgo biloba 40 mg tablet 40 mg PO BID 10/31/21 10/31/21 History glimepiride 2 mg tablet 2 mg PO DAILYBB 10/31/21 10/31/21 History glimepiride 4 mg tablet 4 mg PO DAILYBB 10/31/21 10/31/21 History lisinopril 20 mg tablet 20 mg PO BID 10/31/21 10/31/21 History metformin 500 mg tablet 1,000 mg PO HS 10/31/21 10/31/21 History metoprolol succinate 100 mg 100 mg PO QAM 10/31/21 10/31/21 History tablet,extended release 24 hr polyvinyl alcohol-povidone (PF) 1 drp OPB BID 10/31/21 10/31/21 History 1.4 %-0.6 % eye drops in a dropperette (Refresh Classic (PF)) repaglinide 2 mg tablet 2 mg PO AC 10/31/21 10/31/21 History triamcinolone acetonide 0.025 % 1 applic TOPICAL BID 10/31/21 10/31/21 History topical cream Patient History Medical History DM2 (diabetes mellitus, type 2) H/O: HTN (hypertension) Surgical History Hx of cataract surgery Social History Smoking Status: Never smoker Second Hand Exposure: Yes; Do You Dip or Chew Tobacco: No; Hx Alcohol Use: Yes Alcohol type: wine Hx Substance Use: No Preferred Language: Lao Communication Ability: Effective Automotive Alignment Specialist Required: No Beliefs That Will Affect Care: None Current Living Situation: Alone Other Information That Helps Us Care for You: No Feels Safe at Home: Yes Safety Concerns: Feels Safe At This Time Assistive Devices: Walker Review of Systems Review of Systems: All systems reviewed & are unremarkable except as noted in HPI & below Physical Exam Physical Exam: Temp Pulse Resp BP Pulse Ox 36.8 C 68 15 149/60 H 95 11/01/21 12:38 11/01/21 12:38 11/01/21 12:38 11/01/21 12:38 11/01/21 12:38 Constitutional: WD/WN, vitals as above Respiratory: normal respiratory effort, lungs clear to auscultation Cardiovascular: RRR, no murmur, no edema Gastrointestinal (Abdomen): normal bowel sounds, soft, nontender, no hepatosplenomegaly Neurologic: PERRL, EOMI, accommodation nl, no face palsy, no dysarthria Results & Data ([facility]) Laboratory Results Cardiac Enzymes 10/31/21 10/31/21 11/01/21 Range/Units 14:09 14:09 06:21 AST 18 (13-39) U/L Troponin I High Sens 17.7 H 33.8 H D (0-14) pg/ml Coagulation 10/31/21 Range/Units 14:09 PT 10.4 (9.0-12.0) Seconds APTT 24.8 (21.0-31.0) Seconds CBC 10/31/21 11/01/21 Range/Units 14:09 06:21 WBC 7.01 9.47 (4.8-10.8) K/uL RBC 4.32 3.87 L (4.2-5.4) M/uL Hgb 13.7 12.4 (12.0-16.0) g/dL Hct 41.2 38.0 (37-47) % Plt Count 298 280 (130-400) K/uL Neut # (Auto) 4.53 (1.4-6.5) K/uL Lymph # (Auto) 1.87 (1.2-3.4) K/uL Hawkins # (Auto) 0.53 (0.11-0.59) K/uL Eos # (Auto) 0.03 (0-0.5) K/uL Baso # (Auto) 0.03 (0-0.2) K/uL Comprehensive Metabolic Panel 10/31/21 11/01/21 Range/Units 14:09 06:21 Sodium 137 135 L (136-145) mmol/L Potassium 4.1 3.9 (3.5-5.1) mmol/L Chloride 100 102 (98-107) mmol/L Carbon Dioxide 25 19 L (21-32) mmol/L BUN 32 H 32 H (6-23) mg/dl Creatinine 1.25 H 1.64 H D (0.6-1.2) mg/dl Glucose 221 H 280 H (70-99(Fasting)) mg/dl Calcium 9.9 9.1 (8.5-10.1) mg/dl AST 18 (13-39) U/L ALT 23 (7-52) U/L Alkaline Phosphatase 40 (34-104) U/L Total Protein 7.4 (6.0-8.3) gm/dl Albumin 4.2 (3.4-5.0) gm/dl
--- NOTE | 2021-11-01 13:43 | Electrocardiogram Report ---
Test Reason : Blood Pressure : / mmHG Vent. Rate : 081 BPM Atrial Rate : 081 BPM P-R Int : 186 ms QRS Dur : 078 ms QT Int : 416 ms P-R-T Axes : 000 019 073 degrees QTc Int : 483 ms Sinus rhythm with Premature atrial complexes Nonspecific ST and T wave abnormality Abnormal ECG When compared with ECG of 31-OCT-2021 14:06, Premature atrial complexes are now Present QT has lengthened Confirmed by Juan Reese ([id number]) on 11/01/2021 1:43:35 PM Referred By: Dalila Bauman Confirmed By:Juan Reese
--- NOTE | 2021-11-01 13:52 | Electrocardiogram Report ---
Test Reason : Blood Pressure : / mmHG Vent. Rate : 071 BPM Atrial Rate : 071 BPM P-R Int : 210 ms QRS Dur : 078 ms QT Int : 444 ms P-R-T Axes : 029 031 073 degrees QTc Int : 482 ms Sinus rhythm with 1st degree A-V block Nonspecific ST abnormality Abnormal ECG When compared with ECG of 01-NOV-2021 05:16, (unconfirmed) Premature atrial complexes are no longer Present Confirmed by Juan Reese ([id number]) on 11/01/2021 1:52:01 PM Referred By: Dalila Bauman Confirmed By:Juan Reese
--- NOTE | 2021-11-01 14:43 | Hospitalist Progress Note ---
Date of Service November 01, 2021 Assessment & Plan (1) Hypertensive urgency: (2) Elevated troponin I level: (3) Carotid artery stenosis: (4) Diabetes mellitus with kidney complication, without long-term current use of insulin: Plan: HTNsive urgency- controlled with cardene drip. Seen by cardio- now weaning off cardene and starting on verapamil. Continue lisinopril, toprol. - Echo reviewed- normal EF, some diastolic dysfunction, no WMA, no significant valvular abnormality - Renal duplex with possible left renal artery stenosis and recommended CTA. Discussed with cardio- would hold off given her worsening creatinine, age and will manage her hypertension medically for now. 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 On presentation 1.25, currently 1.64. Did receive contrast yesterday. Hold lasix, continue gentle IVF, avoid nephrotoxic, recheck in am. Hold further contrast. Carotid artery disease- seen in CT- 70-80% stenosis- vascular surgery recommened OP follow up in 6 months with US carotid Elevated trop- mild elevation, already flattening, likely demand ischemia, no EKG changes, no prior cardiac history. Echo reviewed- no WMA. Cardio following. DM-2 with CKD3 with hyperglycemia- on 5 antidiabetics at home- on hold. On Lantus and novolog which we will continue to adjust based on hyperglycemia. Code status- full code Dispo- Pending medical stability DVT prophylaxis- wa lovenox Admission and Anticipated Discharge Date Admission Date: October 31, 2021 Subjective She had chest tightness overnight which did not improve with nitrox3, now having heart burn symptoms this morning. Headache is improved. Fogginess still there. BP improved with cardene drip but still with hyperglycemia- she says it is not new for her. Physical Exam Physical Exam: General: Lying comfortably in bed, not in distress, on room air HEENT: EOMI, ANABEL, MMM Chest: Clear breath sounds bilaterally, no wheezes or crackles CVS: Regular rate and rhythm, normal heart sounds, no murmur Abdomen: Soft, non tender, not distended, normal bowel sounds Neuro: Awake, alert, oriented, conversing well, non focal Extremities: No cyanosis, clubbing or edema Results & Data Results & Data ([facility]) Vital Signs (Past 12 Hours) Vital Signs Temp Pulse Pulse Resp BP Pulse Ox 11/01/21 14:02 72 141/54 H 11/01/21 13:31 63 136/63 11/01/21 13:08 70 133/61 11/01/21 12:38 36.8 C 68 15 149/60 H 95 11/01/21 12:00 71 147/56 H 11/01/21 11:50 83 137/56 L 11/01/21 11:25 71 153/55 H 11/01/21 11:00 87 114/71 11/01/21 10:30 66 160/53 H 11/01/21 10:00 90 153/73 H 11/01/21 09:30 86 144/57 H 11/01/21 09:00 90 154/66 H 11/01/21 08:38 85 163/63 H 11/01/21 07:50 91 H 163/92 H 11/01/21 07:31 68 151/57 H 11/01/21 07:00 71 126/55 L 11/01/21 06:30 83 146/56 H 11/01/21 06:15 66 11/01/21 06:00 79 165/60 H 11/01/21 05:50 146/62 H 11/01/21 05:46 79 133/50 L 11/01/21 05:09 176/64 H 11/01/21 04:48 105 H 167/62 H 11/01/21 04:00 36.9 C 85 18 140/58 L 96 11/01/21 03:30 175/67 H 11/01/21 03:00 82 146/60 H 11/01/21 02:30 83 175/85 H Laboratory Results Short CBC 10/31/21 11/01/21 Range/Units 14:09 06:21 WBC 7.01 9.47 (4.8-10.8) K/uL Hgb 13.7 12.4 (12.0-16.0) g/dL Hct 41.2 38.0 (37-47) % Plt Count 298 280 (130-400) K/uL BMP 10/31/21 11/01/21 14:09 06:21 Sodium 137 135 L Potassium 4.1 3.9 Chloride 100 102 Carbon Dioxide 25 19 L BUN 32 H 32 H Creatinine 1.25 H 1.64 H D Glucose 221 H 280 H Calcium 9.9 9.1 Liver Function 10/31/21 Range/Units 14:09 Total Bilirubin 0.4 (0.2-1.0) mg/dl AST 18 (13-39) U/L ALT 23 (7-52) U/L Alkaline Phosphatase 40 (34-104) U/L Albumin 4.2 (3.4-5.0) gm/dl Diagnostic Findings Renal Artery Duplex 11/01/21 00:00 US duplex renal artery CLINICAL HISTORY: uncontrolled hypertension COMPARISON STUDY: No previous studies for comparison. TECHNIQUE: Color and duplex Doppler sonography of the abdominal aorta and bilateral renal arteries was performed. FINDINGS: There is moderate bilateral renal cortical thinning. The right kidney measured 9.9 cm in length and the left measured 11.5 cm. There is no hydronephrosis. Peak systolic velocity within the abdominal aorta was 163 cm/s. Maximal velocity within the left renal artery was within its proximal aspect, with a peak systolic velocity of 239 cm/s. The left renal to aortic ratio was 1.47. Systolic upstrokes within the segmental vessels of the left kidney were within normal limits. Peak systolic velocity within the right renal artery was 113 cm/s. Delayed systolic upstrokes within the segmental vessels of the right kidney were noted. IMPRESSION: 1. Mildly elevated velocities within the left renal artery with without significant increase in renal to aortic ratio. Normal segmental waveforms within the left kidney. These findings are equivocal for left-sided renal artery stenosis. A CTA of the abdomen could be obtained for further evaluation. 2. Normal velocities within the right renal artery however delayed upstrokes within the segmental vessels raise the possibility of an upstream stenosis. This can be assessed on CTA. ACT 112: Negative or not required by law. Electronically signed by: Demetrius Sena M.D. 11/01/2021 8:53 AM Chest X-Ray 11/01/21 10:58 XR chest 1V portable HISTORY: hypertension COMPARISON: None. FINDINGS: No pneumothorax. No pleural effusions. The cortex and what is mildly enlarged. A few bibasilar linear densities consistent with subsegmental atelectasis. Otherwise, no focal lung consolidations to suggest pneumonia. No evidence for pulmonary edema. There are calcifications within the aortic knob. Degenerative changes noted within the shoulder. IMPRESSION: Chronic changes as described above. No acute process within the chest. ACT 112: Negative or not required by law. Electronically signed by: Alber Capellan M.D. 11/01/2021 11:30 AM Medications Administered Current Inpatient Medications Acetaminophen (Acetaminophen 500 Mg Tab) 1,000 mg PO Q8H PRN PRN Reason: Pain Stop: 11/30/21 21:42 Last Admin: 10/31/21 22:29 Dose: 1,000 mg Documented by: Aspirin (Aspirin 81 Mg Ectab) 81 mg PO QAM [facility] Stop: 12/01/21 08:59 Last Admin: 11/01/21 09:03 Dose: 81 mg Documented by: Atorvastatin Calcium (Atorvastatin 40 Mg Tab) 40 mg PO HS [facility] Stop: 11/30/21 21:59 Last Admin: 10/31/21 23:24 Dose: 40 mg Documented by: Dextrose (Dextrose 50% 50 Ml Syringe) 25 - 50 ml IV UD PRN; Protocol PRN Reason: Hypoglycemia Protocol Stop: 11/30/21 21:59 Furosemide (Furosemide 20 Mg Tab) 20 mg PO MoWeFr@0900 [facility] Stop: 12/01/21 08:59 Last Admin: 11/01/21 09:03 Dose: 20 mg Documented by: Glucagon (Glucagon For Inj 1 Mg Vial) 1 mg SQ UD PRN; Protocol PRN Reason: Hypoglycemia Protocol Stop: 11/30/21 21:59 Glucose (Glucose 10 Tabs/Tube) 4 - 8 tabs PO UD PRN; Protocol PRN Reason: Hypoglycemia Protocol Stop: 11/30/21 21:59 Glucose (Glucose 40% Gel 15 Gm Tube) 15 - 30 gm PO UD PRN; Protocol PRN Reason: Hypoglycemia Protocol Stop: 11/30/21 21:59 Sodium Chloride (Nss 1000ml) 1,000 mls @ 70 mls/hr IV .[id number] [facility] Stop: 11/02/21 02:47 Last Admin: 11/01/21 12:34 Dose: 70 mls/hr Documented by: Insulin Aspart (Insulin Aspart Per Unit) 0 units SC ACHS [facility] Stop: 11/30/21 21:59 Last Admin: 11/01/21 12:05 Dose: 6 units Documented by: Insulin Glargine (Insulin Glargine Solostar 100 Units/Ml 3 Ml Pen) 15 units SC BID [facility] Stop: 11/30/21 21:59 Last Admin: 11/01/21 09:11 Dose: 15 units Documented by: Lisinopril (Lisinopril 20 Mg Tab) 20 mg PO BID [facility] Stop: 11/30/21 21:59 Last Admin: 11/01/21 09:03 Dose: 20 mg Documented by: Metoprolol Succinate (Metoprolol Succ 50mg Ext Rel Tab) [facility] [place] Stop: 12/01/21 08:59 Last Admin: 11/01/21 09:03 Dose: 100 mg Documented by: Miscellaneous (Carbohydrates For Hypoglycemia ) 15 - 30 gm PO UD PRN PRN Reason: Hypoglycemia Protocol Stop: 11/30/21 21:59 Pantoprazole Sodium (Pantoprazole 40 Mg Tab) 40 mg PO [facility] Stop: 12/01/21 08:59 Last Admin: 11/01/21 09:03 Dose: 40 mg Documented by: Verapamil HCl (Verapamil Hcl 40 Mg Tab) 40 mg PO TID [facility] Stop: 12/01/21 16:59
[2021-11-01] MEDS ORDERED: ENOXAPARIN INJ 40 MG/0.4 ML SYR SQ SCH (14:45)
[2021-11-01] MEDS: ENOXAPARIN INJ 30 MG/0.3 ML SYR SQ SCH (15:43)
[2021-11-01] MEDS: VERAPAMIL HCL 40 MG TAB PO SCH ×2 (17:42→20:31)
[2021-11-01] MEDS: ATORVASTATIN 40 MG TAB PO SCH (20:31)
[2021-11-01] MEDS: ACETAMINOPHEN 500 MG TAB PO PRN (20:34)
[2021-11-02] MEDS: INSULIN ASPART PER UNIT SC SCH ×4 (08:14→20:32)
[2021-11-02] MEDS: INSULIN GLARGINE SOLOSTAR 100 UNITS/ML 3 ML PEN SC SCH ×2 (08:15→20:33)
[2021-11-02] MEDS: lisinopril 20 MG TAB PO SCH ×2 (08:22→19:46)
[2021-11-02] MEDS: METOPROLOL SUCC 50MG EXT REL TAB PO SCH (08:22)
[2021-11-02] MEDS: PANTOprazole 40 MG TAB PO SCH (08:22)
[2021-11-02] MEDS: ASPIRIN 81 MG ECTAB PO SCH (08:22)
[2021-11-02] MEDS: VERAPAMIL HCL 40 MG TAB PO SCH ×3 (08:23→19:46)
[2021-11-02] MEDS: ACETAMINOPHEN 500 MG TAB PO PRN ×2 (08:23→19:25)
[2021-11-02] MEDS: ENOXAPARIN INJ 30 MG/0.3 ML SYR SQ SCH (08:23)
--- NOTE | 2021-11-02 09:46 | Cardiology Progress Note ---
Date of Service November 02, 2021 Assessment & Plan (1) Hypertensive urgency: (2) Elevated troponin I level: (3) Carotid artery stenosis: Plan: 86 year old female (1) Hypertensive urgency: Patient with longstanding history of difficult to control hypertension. Reviewed her medication regimen for when she initially established with local care in January,. At that time she was on amlodipine 5 mg daily which had since been discontinued apparently in early October, due to concerns of edema. She had previously been on lisinopril 10 mg daily and this is most recently been titrated to 20 mg twice daily. She had previously been on spironolactone 25 mg daily. This was cut back to 12.5 mg daily in January,, and then discontinued completely in June,, apparently due to mildly elevated potassium level, 5.2 mmol/L noted at the time medication was discontinued. She has been on metoprolol succinate on a chronic basis 100 mg daily which is unchanged. More recently, Lasix 20 mg every Thursday added. Patient notes that she has some degree of frustration and feels she would understand her medication regimen if she could take the same medication every day. Present we will wean her nicardipine infusion and start short acting verapamil for blood pressure and negative inotropic effects, 40 mg 3 times daily, with plans to transition it to long-acting formulation as tolerated. Holding furosemide due to acute increase in her creatinine. (2) Elevated troponin I level: Transient chest tightness, in the setting of hospitalization elevated blood pressure. EKG performed x2 without acute findings. J-point elevation noted in the inferior leads at time of EKG at 10:34 AM, but she certainly does not have symptoms to suggest that she is having a transmural myocardial infarction. Her echocardiogram performed revealed normal LV wall motion, with hyperdynamic left ventricular systolic function. Mild elevation in her at bedtime troponin is likely explained on the part of hy perdynamic left ventricular systolic function in the setting of high blood pressure. She denies having had a past history of coronary heart disease. Continue chronic therapy with aspirin. (3) Carotid artery stenosis: 70% right internal carotid stenosis noted on CT angiogram of the neck vessels. No neurologic symptoms. Patient seen by vascular surgery. Agree with risk factor management such as blood pressure control, ongoing statin therapy with atorvastatin 40 mg daily, vascular recommends clinic follow-up with them and repeat imaging at a 6-month interval. (4) acute kidney injury Baseline creatinine typically around 1.3, with measurement on presentation last evening 1.25, up to 1.64 today, having received a contrast dose. Plan: Patient hypertensive urgency is improving. Recent history is notable for discontinuation of spironolactone 09/13/2021 due 2 mild hyperkalemia, discontinuation of amlodipine secondary to lower extremity edema 10/16/2021 Signs of fluid volume retention lower extremity edema improved in hospital Would continue current medications as ordered including oral verapamil Will follow renal function. Ultimately require low-dose diuretic possible spironolactone for chronic diastolic heart failure, hypertensive heart disease Admission and Anticipated Discharge Date Admission Date: October 31, 2021 Subjective Patient seen and examined, chart, medications, telemetry reviewed. Patient disgruntled regarding lab testing otherwise no acute complaints. Breathing improved, lower extremity edema resolved, blood pressure improved Review of Systems Review of Systems: All systems reviewed & are unremarkable except as noted in Subjective Physical Exam Physical Exam: Constitutional: WD/WN, vitals as above Eyes: PERRL, conjunctivae normal, anicteric sclerae ENMT: external ear and nose normal, oropharynx normal Respiratory: normal respiratory effort, lungs clear to auscultation Cardiovascular: RRR, no murmur, no edema Vessels: no JVD Extremities: no edema Gastrointestinal (Abdomen): normal bowel sounds, soft, nontender, no hepatosplenomegaly Neurologic: PERRL, EOMI, accommodation nl, no face palsy, no dysarthria Results & Data ([facility]) Vital Signs (Past 12 Hours) Vital Signs Temp Pulse Pulse Resp BP Pulse Ox 11/02/21 09:13 79 149/76 H 11/02/21 08:21 79 153/121 H 11/02/21 07:32 69 11/02/21 04:03 36.7 C 67 18 144/58 H 97 11/01/21 23:58 36.7 C 75 18 148/54 H 96 11/01/21 22:19 77 Laboratory Results Laboratory Results - last 24 hr 11/01/21 11/01/21 11/01/21 11:14 11:14 12:45 POC Glucose 319 H* 315 H* Troponin I High Sens 33.1 H 04/29/22 04/29/22 04/30/22 16:31 20:29 07:27 POC Glucose 97 116 H 140 H Troponin I High Sens
[2021-11-02 10:29] LABS: BUN Creatinine Ratio 17.9 (10-20); Calcium 8.9 mg/dl (8.5-10.1); Creatinine Clr Calc Pharmacy 27.2 ml/min; Est GFR (African American) 32.7 ml/min; Est GFR (Non-African American) 28.2 ml/min; Potassium 4.2 mmol/L (3.5-5.1)
--- NOTE | 2021-11-02 13:44 | Hospitalist Progress Note ---
Date of Service November 02, 2021 Assessment & Plan (1) Hypertensive urgency: (2) Elevated troponin I level: (3) Carotid artery stenosis: (4) Diabetes mellitus with kidney complication, without long-term current use of insulin: Plan: HTNsive urgency- s/p cardene drip. Seen by cardio- started on trial of verapamil. Continue lisinopril, toprol. Might need addition of aldactone. - Echo reviewed- normal EF, some diastolic dysfunction, no WMA, no significant valvular abnormality - Renal duplex with possible left renal artery stenosis and recommended CTA. Discussed with cardio- would hold off given her worsening creatinine, age and will manage her hypertension medically for now. 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 On presentation 1.25, peaked to 1.64 and now stable at 1.62. Did receive contrast on admission. Lasix on hold. S/p gentle IVF. Hold further contrast or nephrotoxics. recheck in am. Carotid artery disease- seen in CT- 70-80% stenosis- vascular surgery recommended OP follow up in 6 months with US carotid Elevated trop- mild elevation, flat trend, likely demand ischemia, no EKG changes, no prior cardiac history. Echo reviewed- no WMA. Cardio following. DM-2 with CKD3 with hyperglycemia- on 5 antidiabetics at home- on hold. On Lantus and novolog which we will continue to adjust based on hyperglycemia. Code status- full code Dispo- Pending better control of blood pressure on oral regimen, 1- 2 more days DVT prophylaxis- [place] lovenox Admission and Anticipated Discharge Date Admission Date: October 31, 2021 Subjective No new issues. She feels better. Her headache is resolved. Chest pressure is resolved. Normal appetite. Ambulating independently. Physical Exam Physical Exam: General: Lying comfortably in bed, not in distress, on room air HEENT: EOMI, ANABEL, MMM Chest: Clear breath sounds bilaterally, no wheezes or crackles CVS: Regular rate and rhythm, normal heart sounds, no murmur Abdomen: Soft, non tender, not distended, normal bowel sounds Neuro: Awake, alert, oriented, conversing well, non focal Extremities: No cyanosis, clubbing or edema Results & Data Results & Data ([facility]) Vital Signs (Past 12 Hours) Vital Signs Temp Pulse Pulse Resp BP Pulse Ox 11/02/21 11:25 36.7 C 67 18 151/69 H 96 11/02/21 09:13 79 149/76 H 11/02/21 08:21 79 153/121 H 11/02/21 07:32 69 11/02/21 04:03 36.7 C 67 18 144/58 H 97 Laboratory Results Short CBC 10/31/21 11/01/21 11/02/21 Range/Units 14:09 06:21 09:38 Creatinine 1.25 H 1.64 H D 1.62 H (0.6-1.2) mg/dl BMP 11/02/21 09:38 Sodium 135 L Potassium 4.2 Chloride 104 Carbon Dioxide 22 BUN 29 H Creatinine 1.62 H Glucose 229 H Calcium 8.9 Medications Administered Current Inpatient Medications Acetaminophen (Acetaminophen 500 Mg Tab) 1,000 mg PO Q8H PRN PRN Reason: Pain Stop: 11/30/21 21:42 Last Admin: 11/02/21 08:23 Dose: 1,000 mg Documented by: Aspirin (Aspirin 81 Mg Ectab) 81 mg PO QAM [facility] Stop: 12/01/21 08:59 Last Admin: 11/02/21 08:22 Dose: 81 mg Documented by: Atorvastatin Calcium (Atorvastatin 40 Mg Tab) 40 mg PO HS [facility] Stop: 11/30/21 21:59 Last Admin: 11/01/21 20:31 Dose: 40 mg Documented by: Dextrose (Dextrose 50% 50 Ml Syringe) 25 - 50 ml IV UD PRN; Protocol PRN Reason: Hypoglycemia Protocol Stop: 11/30/21 21:59 Enoxaparin Sodium (Enoxaparin Inj 30 Mg/0.3 Ml Syr) 30 mg SQ QAM [facility] Stop: 12/01/21 14:44 Last Admin: 11/02/21 08:23 Dose: 30 mg Documented by: Furosemide (Furosemide 20 Mg Tab) 20 mg PO MoWeFr@0900 [facility] Stop: 12/01/21 08:59 Last Admin: 11/01/21 09:03 Dose: 20 mg Documented by: Glucagon (Glucagon For Inj 1 Mg Vial) 1 mg SQ UD PRN; Protocol PRN Reason: Hypoglycemia Protocol Stop: 11/30/21 21:59 Glucose (Glucose 10 Tabs/Tube) 4 - 8 tabs PO UD PRN; Protocol PRN Reason: Hypoglycemia Protocol Stop: 11/30/21 21:59 Glucose (Glucose 40% Gel 15 Gm Tube) 15 - 30 gm PO UD PRN; Protocol PRN Reason: Hypoglycemia Protocol Stop: 11/30/21 21:59 Insulin Aspart (Insulin Aspart Per Unit) 0 units SC ACHS [facility] Stop: 11/30/21 21:59 Last Admin: 11/02/21 11:55 Dose: 4 units Documented by: Insulin Glargine (Insulin Glargine Solostar 100 Units/Ml 3 Ml Pen) 15 units SC BID [facility] Stop: 11/30/21 21:59 Last Admin: 11/02/21 08:15 Dose: 15 units Documented by: Lisinopril (Lisinopril 20 Mg Tab) 20 mg PO BID [facility] Stop: 11/30/21 21:59 Last Admin: 11/02/21 08:22 Dose: 20 mg Documented by: Metoprolol Succinate (Metoprolol Succ 50mg Ext Rel Tab) 100 mg PO QAM [facility] Stop: 12/01/21 08:59 Last Admin: 11/02/21 08:22 Dose: 100 mg Documented by: Miscellaneous (Carbohydrates For Hypoglycemia ) 15 - 30 gm PO UD PRN PRN Reason: Hypoglycemia Protocol Stop: 11/30/21 21:59 Pantoprazole Sodium (Pantoprazole 40 Mg Tab) 40 mg PO QAM [facility] Stop: 12/01/21 08:59 Last Admin: 11/02/21 08:22 Dose: 40 mg Documented by: Verapamil HCl (Verapamil Hcl 40 Mg Tab) 40 mg PO TID [facility] Stop: 12/01/21 16:59 Last Admin: 11/02/21 08:23 Dose: 40 mg Documented by:
[2021-11-02] MEDS: ATORVASTATIN 40 MG TAB PO SCH (19:46)
[2021-11-03 07:20] LABS: BUN Creatinine Ratio 22.2 (10-20); Calcium 8.8 mg/dl (8.5-10.1); Creatinine Clr Calc Pharmacy 27.9 ml/min; Est GFR (African American) 33.7 ml/min; Est GFR (Non-African American) 29.1 ml/min; Magnesium 1.7 mg/dl (1.7-2.4)
[2021-11-03] MEDS: ASPIRIN 81 MG ECTAB PO SCH (08:03)
[2021-11-03] MEDS: ENOXAPARIN INJ 30 MG/0.3 ML SYR SQ SCH (08:04)
[2021-11-03] MEDS: INSULIN GLARGINE SOLOSTAR 100 UNITS/ML 3 ML PEN SC SCH ×2 (08:04→21:00)
[2021-11-03] MEDS: VERAPAMIL HCL 40 MG TAB PO SCH ×2 (08:05→14:00)
[2021-11-03] MEDS: lisinopril 20 MG TAB PO SCH ×2 (08:05→20:56)
[2021-11-03] MEDS: METOPROLOL SUCC 50MG EXT REL TAB PO SCH (08:05)
[2021-11-03] MEDS: PANTOprazole 40 MG TAB PO SCH (08:06)
[2021-11-03] MEDS: ACETAMINOPHEN 500 MG TAB PO PRN ×2 (08:09→20:58)
[2021-11-03] MEDS: INSULIN ASPART PER UNIT SC SCH ×4 (08:10→21:06)
[2021-11-03] MEDS ORDERED: hydrALAZINE HCL 20 MG/ML VIAL ONE (09:42)
[2021-11-03] MEDS ORDERED: hydrALAZINE HCL 20 MG/ML VIAL IV STA (09:45)
--- NOTE | 2021-11-03 10:10 | Cardiology Progress Note ---
Date of Service November 03, 2021 Assessment & Plan (1) Hypertensive urgency: (2) Elevated troponin I level: (3) Carotid artery stenosis: Plan: 86 year old female (1) Hypertensive urgency: Patient with longstanding history of difficult to control hypertension. Reviewed her medication regimen for when she initially established with local care in January,. At that time she was on amlodipine 5 mg daily which had since been discontinued apparently in early October, due to concerns of edema. She had previously been on lisinopril 10 mg daily and this is most recently been titrated to 20 mg twice daily. She had previously been on spironolactone 25 mg daily. This was cut back to 12.5 mg daily in January,, and then discontinued completely in June,, apparently due to mildly elevated potassium level, 5.2 mmol/L noted at the time medication was discontinued. She has been on metoprolol succinate on a chronic basis 100 mg daily which is unchanged. More recently, Lasix 20 mg every Thursday added. (2) Elevated troponin I level: Transient chest tightness, in the setting of hospitalization elevated blood pressure. EKG performed x2 without acute findings. J-point elevation noted in the inferior leads at time of EKG at 10:34 AM, but she certainly does not have symptoms to suggest that she is having a transmural myocardial infarction. Her echocardiogram performed revealed normal LV wall motion, with hyperdynamic left ventricular systolic function. Mild elevation in her at bedtime troponin is likely explained on the part of hyperdynamic left ventricular systolic function in the setting of high blood pressure. She denies having had a past history of coronary heart disease. Continue chronic therapy with aspirin. (3) Carotid artery stenosis: 70% right internal carotid stenosis noted on CT angiogram of the neck vessels. No neurologic symptoms. Patient seen by vascular surgery. Agree with risk factor management such as blood pressure control, ongoing statin therapy with atorvastatin 40 mg daily, vascular recommends clinic follow-up with them and repeat imaging at a 6-month interval. (4) acute kidney injury Baseline creatinine typically around 1.3 Plan: Patient hypertensive urgency is improving. Recent history is notable for discontinuation of spironolactone 09/13/2021 due 2 mild hyperkalemia, discontinuation of amlodipine secondary to lower extremity edema 10/16/2021 Signs of fluid volume retention lower extremity edema improved in hospital Hypertensive heart disease with diastolic dysfunction No indications for renal artery CTA Plan continue to titrate medications. We will change verapamil to once daily dosing at 180 mg nightly. Add hydralazine 10 mg twice daily. Anticipate use of diuretic as management of blood pressure and edema as renal function stabilizes Would continue to monitor additional 24 to 48 hours Admission and Anticipated Discharge Date Admission Date: October 31, 2021 Subjective Patient seen and examined, chart, medications, telemetry reviewed. Blood pressure still trending higher. Lower extremity edema has essentially resolved. No arrhythmias or bradycardia arrhythmias on current medical therapies. No chest pain or shortness of breath Review of Systems Review of Systems: All systems reviewed & are unremarkable except as noted in Subjective Physical Exam Physical Exam: Constitutional: WD/WN, vitals as above Eyes: PERRL, conjunctivae normal, anicteric sclerae ENMT: external ear and nose normal, oropharynx normal Respiratory: normal respiratory effort, lungs clear to auscultation Cardiovascular: RRR, no murmur, no edema Vessels: no JVD Extremities: no edema Gastrointestinal (Abdomen): normal bowel sounds, soft, nontender, no hepatosplenomegaly Neurologic: PERRL, EOMI, accommodation nl, no face palsy, no dysarthria Results & Data ([facility]) Vital Signs (Past 12 Hours) Vital Signs Temp Pulse Pulse Resp BP Pulse Ox 11/03/21 07:25 36.8 C 65 18 183/90 H 94 11/03/21 04:04 36.6 C 59 L 18 165/71 H 97 11/02/21 23:29 36.6 C 63 18 141/52 H 95 11/02/21 22:19 65 Laboratory Results Laboratory Results - last 24 hr 11/02/21 11/02/21 11/02/21 09:38 11:23 16:32 Sodium 135 L Potassium 4.2 Chloride 104 Carbon Dioxide 22 Anion Gap 9 BUN 29 H Creatinine 1.62 H Est Cr Clr Drug Dosing 27.2 Est GFR ( Amer) 32.7 Est GFR (Non-Af Amer) 28.2 BUN/Creatinine Ratio 17.9 Glucose 229 H POC Glucose 191 H 124 H Calcium 8.9 Magnesium 11/02/21 11/03/21 11/03/21 20:29 06:41 07:23 Sodium 137 Potassium 4.0 Chloride 106 Carbon Dioxide 23 Anion Gap 8 BUN 35 H Creatinine 1.58 H Est Cr Clr Drug Dosing 27.9 Est GFR ( Amer) 33.7 Est GFR (Non-Af Amer) 29.1 BUN/Creatinine Ratio 22.2 H Glucose 124 H POC Glucose 123 H 140 H Calcium 8.8 Magnesium 1.7
[2021-11-03] MEDS ORDERED: hydrALAZINE 10 MG TAB PO ONE (10:15)
--- NOTE | 2021-11-03 11:40 | Hospitalist Progress Note ---
Date of Service November 03, 2021 Assessment & Plan (1) Hypertensive urgency: (2) Carotid artery stenosis: (3) Diabetes mellitus with kidney complication, without long-term current use of insulin: Plan: HTNsive urgency - s/p cardene drip. - Seen by cardio- started on trial of verapamil and changed to long acting today. HLZ added. Continue lisinopril, toprol. Might need addition of aldactone. - Echo reviewed- normal EF, some diastolic dysfunction, no WMA, no significant valvular abnormality - Renal duplex with possible left renal artery stenosis- per cardio, no indication for CTA. 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 On presentation 1.25, peaked to 1.64 and now at 1.5. Did receive contrast on admission. Lasix on hold. S/p gentle IVF. Hold further contrast or nephrotoxics. recheck in am. Carotid artery disease- seen in CT- 70-80% stenosis- vascular surgery recommended OP follow up in 6 months with US carotid Elevated trop- mild elevation, flat trend, likely demand ischemia, no EKG changes, no prior cardiac history. Echo reviewed- no WMA. Cardio following. DM-2 with CKD3 with hyperglycemia- on 5 antidiabetics at home- on hold. On Lantus and novolog which we will continue to adjust based on hyperglycemia. Code status- full code Dispo- Pending better control of blood pressure on oral regimen, 1- 2 more days DVT prophylaxis- [place] lovenox Admission and Anticipated Discharge Date Admission Date: October 31, 2021 Subjective She is pleased that her BG is under control but her BP is still out of control. Her BP was in 180s last night and 210s this morning. Discussed that her meds are being adjusted. No other issues. No chest pain, shortness of breath, headache or other issues. Discussed the case with cardiology. Physical Exam Physical Exam: General: Lying comfortably in bed, not in distress, on room air HEENT: EOMI, ANABEL, MMM Chest: Clear breath sounds bilaterally, no wheezes or crackles CVS: Regular rate and rhythm, normal heart sounds, no murmur Abdomen: Soft, non tender, not distended, normal bowel sounds Neuro: Awake, alert, oriented, conversing well, non focal Extremities: No cyanosis, clubbing or edema Results & Data Results & Data ([facility]) Vital Signs (Past 12 Hours) Vital Signs Temp Pulse Resp BP Pulse Ox 11/03/21 11:23 36.8 C 68 20 163/67 H 97 11/03/21 07:25 36.8 C 65 18 183/90 H 94 11/03/21 04:04 36.6 C 59 L 18 165/71 H 97 Laboratory Results Short CBC 10/31/21 11/01/21 11/01/21 Range/Units 22:39 08:42 08:44 POC Glucose 200 H 317 H* 315 H* (70-99) mg/dl 11/01/21 11/01/21 11/01/21 Range/Units 11:14 11:14 16:31 POC Glucose 319 H* 315 H* 97 (70-99) mg/dl 11/01/21 11/02/21 11/02/21 Range/Units 20:29 07:27 11:23 POC Glucose 116 H 140 H 191 H (70-99) mg/dl 11/02/21 11/02/21 11/03/21 Range/Units 16:32 20:29 07:23 POC Glucose 124 H 123 H 140 H (70-99) mg/dl 11/03/21 Range/Units 11:13 POC Glucose 183 H (70-99) mg/dl BMP 11/03/21 06:41 Sodium 137 Potassium 4.0 Chloride 106 Carbon Dioxide 23 BUN 35 H Creatinine 1.58 H Glucose 124 H Calcium 8.8 Medications Administered Current Inpatient Medications Acetaminophen (Acetaminophen 500 Mg Tab) 1,000 mg PO Q8H PRN PRN Reason: Pain Stop: 11/30/21 21:42 Last Admin: 11/03/21 08:09 Dose: 1,000 mg Documented by: Aspirin (Aspirin 81 Mg Ectab) [facility]: 12/01/21 08:59 Last Admin: 11/03/21 08:03 Dose: 81 mg Documented by: Atorvastatin Calcium (Atorvastatin 40 Mg Tab) 40 mg PO HS [facility] Stop: 11/30/21 21:59 Last Admin: 11/02/21 19:46 Dose: 40 mg Documented by: Dextrose (Dextrose 50% 50 Ml Syringe) 25 - 50 ml IV UD PRN; Protocol PRN Reason: Hypoglycemia Protocol Stop: 11/30/21 21:59 Enoxaparin Sodium (Enoxaparin Inj 30 Mg/0.3 Ml Syr) 30 mg SQ QAM [facility] Stop: 12/01/21 14:44 Last Admin: 11/03/21 08:04 Dose: 30 mg Documented by: Furosemide (Furosemide 20 Mg Tab) 20 mg PO MoWeFr@0900 [facility] Stop: 12/01/21 08:59 Last Admin: 11/01/21 09:03 Dose: 20 mg Documented by: Glucagon (Glucagon For Inj 1 Mg Vial) 1 mg SQ UD PRN; Protocol PRN Reason: Hypoglycemia Protocol Stop: 11/30/21 21:59 Glucose (Glucose 10 Tabs/Tube) 4 - 8 tabs PO UD PRN; Protocol PRN Reason: Hypoglycemia Protocol Stop: 11/30/21 21:59 Glucose (Glucose 40% Gel 15 Gm Tube) 15 - 30 gm PO UD PRN; Protocol PRN Reason: Hypoglycemia Protocol Stop: 11/30/21 21:59 Hydralazine HCl (Hydralazine 10 Mg Tab) 10 mg PO [id number] [facility] Stop: 12/03/21 16:59 Hydralazine HCl (Hydralazine Hcl 20 Mg/Ml Vial) 10 mg IV Q4 PRN PRN Reason: HTN Stop: 12/03/21 11:34 Insulin Aspart (Insulin Aspart Per Unit) 0 units SC ACHS [facility] Stop: 11/30/21 21:59 Last Admin: 11/03/21 08:10 Dose: 4 units Documented by: Insulin Glargine (Insulin Glargine Solostar 100 Units/Ml 3 Ml Pen) 15 units SC BID [facility] Stop: 11/30/21 21:59 Last Admin: 11/03/21 08:04 Dose: 15 units Documented by: Lisinopril (Lisinopril 20 Mg Tab) 20 mg PO BID [facility] Stop: 11/30/21 21:59 Last Admin: 11/03/21 08:05 Dose: 20 mg Documented by: Metoprolol Succinate (Metoprolol Succ 50mg Ext Rel Tab) 100 mg PO QAM [facility] Stop: 12/01/21 08:59 Last Admin: 11/03/21 08:05 Dose: 100 mg Documented by: Miscellaneous (Carbohydrates For Hypoglycemia ) 15 - 30 gm PO UD PRN PRN Reason: Hypoglycemia Protocol Stop: 11/30/21 21:59 Pantoprazole Sodium (Pantoprazole 40 Mg Tab) 40 mg PO QAM [facility] Stop: 12/01/21 08:59 Last Admin: 11/03/21 08:06 Dose: 40 mg Documented by: Verapamil HCl (Verapamil Hcl 40 Mg Tab) 40 mg PO TID [facility] Stop: 12/01/21 16:59 Last Admin: 11/03/21 08:05 Dose: 40 mg Documented by: Verapamil HCl (Verapamil Hcl 180 Mg Tabcr) 180 mg PO QPM [facility] Stop: 12/03/21 20:59
[2021-11-03] MEDS ORDERED: hydrALAZINE 10 MG TAB PO SCH (17:00)
[2021-11-03] MEDS: DOCUSATE SODIUM/SENNA 50/8.6MG TAB PO PRN (20:54)
[2021-11-03] MEDS: VERAPAMIL HCL 180 MG TABCR PO SCH (20:55)
[2021-11-03] MEDS: ATORVASTATIN 40 MG TAB PO SCH (20:55)
[2021-11-04] MEDS: hydrALAZINE HCL 20 MG/ML VIAL IV PRN (00:09)
[2021-11-04] MEDS ORDERED: hydrALAZINE TAB 50 MG TAB PO SCH (07:30)
[2021-11-04 07:44] LABS: BUN Creatinine Ratio 20.8 (10-20); Calcium 9.2 mg/dl (8.5-10.1); Creatinine Clr Calc Pharmacy 27.7 ml/min; Est GFR (African American) 33.5 ml/min; Est GFR (Non-African American) 28.9 ml/min; Potassium 4.1 mmol/L (3.5-5.1)
[2021-11-04] MEDS: ACETAMINOPHEN 500 MG TAB PO PRN (07:52)
[2021-11-04] MEDS: INSULIN ASPART PER UNIT SC SCH ×4 (07:53→20:50)
[2021-11-04] MEDS: lisinopril 20 MG TAB PO SCH ×2 (08:44→20:45)
[2021-11-04] MEDS: PANTOprazole 40 MG TAB PO SCH (08:45)
[2021-11-04] MEDS: ENOXAPARIN INJ 30 MG/0.3 ML SYR SQ SCH (08:45)
[2021-11-04] MEDS: ASPIRIN 81 MG ECTAB PO SCH (08:45)
[2021-11-04] MEDS: INSULIN GLARGINE SOLOSTAR 100 UNITS/ML 3 ML PEN SC SCH ×2 (08:45→20:43)
[2021-11-04] MEDS: METOPROLOL SUCC 50MG EXT REL TAB PO SCH (08:45)
--- NOTE | 2021-11-04 09:50 | Cardiology Progress Note ---
Date of Service November 04, 2021 Assessment & Plan (1) Hypertensive urgency: (2) Elevated troponin I level: (3) Carotid artery stenosis: Plan: 86 year old female (1) Hypertensive urgency: Patient with longstanding history of difficult to control hypertension. Reviewed her medication regimen for when she initially established with local care in January,. At that time she was on amlodipine 5 mg daily which had since been discontinued apparently in early October, due to concerns of edema. She had previously been on lisinopril 10 mg daily and this is most recently been titrated to 20 mg twice daily. She had previously been on spironolactone 25 mg daily. This was cut back to 12.5 mg daily in January,, and then discontinued completely in June,, apparently due to mildly elevated potassium level, 5.2 mmol/L noted at the time medication was discontinued. She has been on metoprolol succinate on a chronic basis 100 mg daily which is unchanged. More recently, Lasix 20 mg every Thursday added. (2) Elevated troponin I level: Transient chest tightness, in the setting of hospitalization elevated blood pressure. EKG performed x2 without acute findings. J-point elevation noted in the inferior leads at time of EKG at 10:34 AM, but she certainly does not have symptoms to suggest that she is having a transmural myocardial infarction. Her echocardiogram performed revealed normal LV wall motion, with hyperdynamic left ventricular systolic function. Mild elevation in her at bedtime troponin is likely explained on the part of hyperdynamic left ventricular systolic function in the setting of high blood pressure. She denies having had a past history of coronary heart disease. Continue chronic therapy with aspirin. (3) Carotid artery stenosis: 70% right internal carotid stenosis noted on CT angiogram of the neck vessels. No neurologic symptoms. Patient seen by vascular surgery. Agree with risk factor management such as blood pressure control, ongoing statin therapy with atorvastatin 40 mg daily, vascular recommends clinic follow-up with them and repeat imaging at a 6-month interval. (4) acute kidney injury Baseline creatinine typically around 1.3 Plan: Patient hypertensive urgency is improving. Recent history is notable for discontinuation of spironolactone 09/13/2021 due 2 mild hyperkalemia, discontinuation of amlodipine secondary to lower extremity edema 10/16/2021 Signs of fluid volume retention lower extremity edema improved in hospital Hypertensive heart disease with diastolic dysfunction No indications for renal artery CTA Plan: Continue to titrate medications. Continue current dosing of metoprolol, lisinopril and verapamil. Agree with upward titration of hydralazine will change to 25 mg every 8 hours with room to increase Will need to add back low-dose diuretic as renal function will allow Admission and Anticipated Discharge Date Admission Date: October 31, 2021 Subjective Patient seen and examined, chart, medications, telemetry reviewed. No focal complaints. No shortness of breath or chest pain. Blood pressure still running elevated and received additional dose of hydralazine this morning. No fevers chills unexplained infections. Review of Systems Review of Systems: All systems reviewed & are unremarkable except as noted in Subjective Physical Exam Physical Exam: Constitutional: WD/WN, vitals as above Eyes: PERRL, conjunctivae normal, anicteric sclerae ENMT: external ear and nose normal, oropharynx normal Respiratory: normal respiratory effort, lungs clear to auscultation Cardiovascular: RRR, no murmur, no edema Vessels: no JVD Extremities: no edema Gastrointestinal (Abdomen): normal bowel sounds, soft, nontender, no hepatosplenomegaly Neurologic: PERRL, EOMI, accommodation nl, no face palsy, no dysarthria Results & Data ([facility]) Vital Signs (Past 12 Hours) Vital Signs Temp Pulse Resp BP Pulse Ox 11/04/21 07:11 36.6 C 66 16 192/81 H 98 11/04/21 02:23 36.8 C 58 L 20 156/82 H 97 11/04/21 00:48 76 181/53 H 11/04/21 00:02 36.8 C 76 18 188/59 H 97 Laboratory Results Laboratory Results - last 24 hr 11/03/21 11/03/21 11/03/21 11:13 16:16 20:39 Sodium Potassium Chloride Carbon Dioxide Anion Gap BUN Creatinine Est Cr Clr Drug Dosing Est GFR ( Amer) Est GFR (Non-Af Amer) BUN/Creatinine Ratio Glucose POC Glucose 183 H 120 H 142 H Calcium 11/04/21 11/04/21 06:54 07:13 Sodium 138 Potassium 4.1 Chloride 107 Carbon Dioxide 24 Anion Gap 7 BUN 33 H Creatinine 1.59 H Est Cr Clr Drug Dosing 27.7 Est GFR ( Amer) 33.5 Est GFR (Non-Af Amer) 28.9 BUN/Creatinine Ratio 20.8 H Glucose 138 H POC Glucose 150 H Calcium 9.2
--- NOTE | 2021-11-04 12:01 | Hospitalist Progress Note ---
Date of Service November 04, 2021 Assessment & Plan (1) Hypertensive urgency: (2) Carotid artery stenosis: (3) Diabetes mellitus with kidney complication, without long-term current use of insulin: Plan: HTNsive urgency - s/p cardene drip. - Seen by cardio- started on trial of verapamil and changed to long acting verapamil 11/03. HLZ uptitrated today. Continue lisinopril, toprol. Might need addition of low dose diuretic based on renal function- cardio managing. Will c onsult nephro if continues to have resistant hypertension. - Echo reviewed- normal EF, some diastolic dysfunction, no WMA, no significant valvular abnormality - Renal duplex with possible left renal artery stenosis- per cardio, no indication for CTA. 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 On presentation 1.25, and now stable around 1.6 which might be her baseline. Did receive contrast on admission. Lasix on hold. S/p gentle IVF. Hold further contrast or nephrotoxics. recheck in am. Carotid artery disease- seen in CT- 70-80% stenosis- vascular surgery recommended OP follow up in 6 months with US carotid Elevated trop- mild elevation, flat trend, likely demand ischemia, no EKG changes, no prior cardiac history. Echo reviewed- no WMA. Cardio following. DM-2 with CKD3 with hyperglycemia- on 5 antidiabetics at home- on hold. On Lantus and novolog which we will continue to adjust based on hyperglycemia. Code status- full code Dispo- Pending better control of blood pressure on oral regimen, 1- 2 more days DVT prophylaxis- mt lovenox Admission and Anticipated Discharge Date Admission Date: October 31, 2021 Subjective She is concerned about the spikes in her blood pressure. States her BP was in 210s last night and she had some headache. Denies any other issues. No chest pain, shortness of breath, neurological issues. Physical Exam Physical Exam: General: Lying comfortably in bed, not in distress, on room air HEENT: EOMI, ANABEL, MMM Chest: Clear breath sounds bilaterally, no wheezes or crackles CVS: Regular rate and rhythm, normal heart sounds, no murmur Abdomen: Soft, non tender, not distended, normal bowel sounds Neuro: Awake, alert, oriented, conversing well, non focal Extremities: No cyanosis, clubbing or edema Results & Data Results & Data ([facility]) Vital Signs (Past 12 Hours) Vital Signs Temp Pulse Pulse Resp BP Pulse Ox 11/04/21 11:39 36.5 C 79 16 164/56 H 96 11/04/21 10:03 149/76 H 11/04/21 08:00 65 11/04/21 07:11 36.6 C 66 16 192/81 H 98 11/04/21 02:23 36.8 C 58 L 20 156/82 H 97 11/04/21 00:48 76 181/53 H 11/04/21 00:02 36.8 C 76 18 188/59 H 97 Laboratory Results BMP 11/04/21 06:54 Sodium 138 Potassium 4.1 Chloride 107 Carbon Dioxide 24 BUN 33 H Creatinine 1.59 H Glucose 138 H Calcium 9.2
[2021-11-04] MEDS: hydrALAZINE HCL 25 MG TAB PO SCH ×2 (14:04→20:47)
[2021-11-04] MEDS: ATORVASTATIN 40 MG TAB PO SCH (20:43)
[2021-11-04] MEDS: VERAPAMIL HCL 180 MG TABCR PO SCH (20:45)
[2021-11-05] MEDS: hydrALAZINE HCL 25 MG TAB PO SCH ×2 (06:14→11:41)
[2021-11-05 07:12] LABS: BUN Creatinine Ratio 23.8 (10-20); Calcium 9.3 mg/dl (8.5-10.1); Creatinine Clr Calc Pharmacy 34.9 ml/min; Est GFR (African American) 44.4 ml/min; Est GFR (Non-African American) 38.3 ml/min; Magnesium 1.7 mg/dl (1.7-2.4)
[2021-11-05] MEDS: INSULIN ASPART PER UNIT SC SCH ×4 (07:46→20:41)
--- NOTE | 2021-11-05 09:18 | Cardiology Progress Note ---
Date of Service November 05, 2021 Assessment & Plan (1) Hypertensive urgency: (2) Elevated troponin I level: (3) Carotid artery stenosis: Plan: 86 year old female (1) Hypertensive urgency: Patient with longstanding history of difficult to control hypertension. Reviewed her medication regimen for when she initially established with local care in January,. At that time she was on amlodipine 5 mg daily which had since been discontinued apparently in early October, due to concerns of edema. She had previously been on lisinopril 10 mg daily and this is most recently been titrated to 20 mg twice daily. She had previously been on spironolactone 25 mg daily. This was cut back to 12.5 mg daily in January,, and then discontinued completely in June,, apparently due to mildly elevated potassium level, 5.2 mmol/L noted at the time medication was discontinued. She has been on metoprolol succinate on a chronic basis 100 mg daily which is unchanged. More recently, Lasix 20 mg every Thursday added. (2) Elevated troponin I level: Transient chest tightness, in the setting of hospitalization elevated blood pressure. EKG performed x2 without acute findings. J-point elevation noted in the inferior leads at time of EKG at 10:34 AM, but she certainly does not have symptoms to suggest that she is having a transmural myocardial infarction. Her echocardiogram performed revealed normal LV wall motion, with hyperdynamic left ventricular systolic function. Mild elevation in her at bedtime troponin is likely explained on the part of hyperdynamic left ventricular systolic function in the setting of high blood pressure. She denies having had a past history of coronary heart disease. Continue chronic therapy with aspirin. (3) Carotid artery stenosis: 70% right internal carotid stenosis noted on CT angiogram of the neck vessels. No neurologic symptoms. Patient seen by vascular surgery. Agree with risk factor management such as blood pressure control, ongoing statin therapy with atorvastatin 40 mg daily, vascular recommends clinic follow-up with them and repeat imaging at a 6-month interval. (4) acute kidney injury Baseline creatinine typically around 1.3 Plan: Patient hypertensive urgency is improving. Recent history is notable for discontinuation of spironolactone 09/13/2021 due 2 mild hyperkalemia, discontinuation of amlodipine secondary to lower extremity edema 10/16/2021 Signs of fluid volume retention lower extremity edema improved in hospital Hypertensive heart disease with diastolic dysfunction/diastolic heart failure No indications for renal artery CTA Plan: Continue to titrate medications. Continue current dosing of metoprolol, lisinopril and verapamil, hydralazine Will restart spironolactone at 12.5 mg today. BMP in a.m. Patient already on Jardiance for diabetes with addition of cardiac benefits discussed in setting of diastolic dysfunction Admission and Anticipated Discharge Date Admission Date: October 31, 2021 Subjective Patient was seen and examined, chart, medications, telemetry reviewed. "Had a good night." Blood pressure trending towards better control. Renal function improving. No arrhythmias on telemetry Review of Systems Review of Systems: All systems reviewed & are unremarkable except as noted in Subjective Physical Exam Physical Exam: Constitutional: WD/WN, vitals as above Eyes: PERRL, conjunctivae normal, anicteric sclerae ENMT: external ear and nose normal, oropharynx normal Neck: trachea midline, no thyromegaly Respiratory: normal respiratory effort, lungs clear to auscultation Cardiovascular: RRR, no murmur, no edema Vessels: no JVD Extremities: no edema Gastrointestinal (Abdomen): normal bowel sounds, soft, nontender, no hepatosplenomegaly Neurologic: PERRL, EOMI, accommodation nl, no face palsy, no dysarthria Results & Data ([facility]) Vital Signs (Past 12 Hours) Vital Signs Temp Pulse Pulse Resp BP Pulse Ox 11/05/21 08:37 36.7 C 66 17 153/68 H 93 11/05/21 07:19 62 11/05/21 04:02 36.7 C 69 18 149/66 H 94 11/05/21 03:01 69 11/04/21 23:29 36.6 C 74 18 177/85 H 98 Laboratory Results Laboratory Results - last 24 hr 11/04/21 11/04/21 11/04/21 11:05 16:08 20:19 Sodium Potassium Chloride Carbon Dioxide Anion Gap BUN Creatinine Est Cr Clr Drug Dosing Est GFR ( Amer) Est GFR (Non-Af Amer) BUN/Creatinine Ratio Glucose POC Glucose 167 H 121 H 223 H Calcium Magnesium 11/05/21 11/05/21 06:06 07:22 Sodium 138 Potassium 4.0 Chloride 107 Carbon Dioxide 25 Anion Gap 6 BUN 30 H Creatinine 1.26 H D Est Cr Clr Drug Dosing 34.9 Est GFR ( Amer) 44.4 Est GFR (Non-Af Amer) 38.3 BUN/Creatinine Ratio 23.8 H Glucose 113 H POC Glucose 145 H Calcium 9.3 Magnesium 1.7
[2021-11-05] MEDS: lisinopril 20 MG TAB PO SCH ×2 (09:51→20:41)
[2021-11-05] MEDS: PANTOprazole 40 MG TAB PO SCH (09:51)
[2021-11-05] MEDS: ENOXAPARIN INJ 30 MG/0.3 ML SYR SQ SCH (09:53)
[2021-11-05] MEDS: INSULIN GLARGINE SOLOSTAR 100 UNITS/ML 3 ML PEN SC SCH ×2 (09:53→20:41)
[2021-11-05] MEDS: ASPIRIN 81 MG ECTAB PO SCH (09:55)
[2021-11-05] MEDS: METOPROLOL SUCC 50MG EXT REL TAB PO SCH (09:55)
[2021-11-05] MEDS: SPIRONOLACTONE 12.5 MG TAB PO SCH (09:56)
[2021-11-05] MEDS: ACETAMINOPHEN 500 MG TAB PO PRN ×2 (09:58→20:42)
--- NOTE | 2021-11-05 10:53 | Hospitalist Progress Note ---
Date of Service November 05, 2021 Assessment & Plan (1) Hypertensive urgency: (2) Carotid artery stenosis: (3) Diabetes mellitus with kidney complication, without long-term current use of insulin: Plan: HTNsive urgency - s/p cardene drip. - Seen by cardio- started on trial of verapamil and changed to long acting verapamil 11/03. Also started on HLZ 11/03. Aldatone added today 11/05, BMP tomorrow am. Continue lisinopril, toprol. Cardio managing. Will consult nephro if con tinues to have resistant hypertension. - Echo reviewed- normal EF, some diastolic dysfunction, no WMA, no significant valvular abnormality - Renal duplex with possible left renal artery stenosis- per cardio, no indication for CTA. 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 Did receive contrast on admission. Lasix on hold. S/p gentle IVF. Hold further contrast or nephrotoxics. recheck in am. Carotid artery disease- seen in CT- 70-80% stenosis- vascular surgery recommended OP follow up in 6 months with US carotid Elevated trop- mild elevation, flat trend, likely demand ischemia, no EKG changes, no prior cardiac history. Echo reviewed- no WMA. Cardio following. DM-2 with CKD3 with hyperglycemia- on 5 antidiabetics at home- on hold. On Lantus and novolog which we will continue to adjust based on hyperglycemia. Code status- full code Dispo- Pending better control of blood pressure on oral regimen. Anticipate discharge per patient as she states there is no one at home until . DVT prophylaxis- de lovenox Admission and Anticipated Discharge Date Admission Date: October 31, 2021 Subjective She is happy that her blood pressure finally seems to be stabilizing. Denies any headache, chest pressure, shortness of breath. She states she can't go home until as there will be no one available at home. Physical Exam Physical Exam: General: Lying comfortably in bed, not in distress, on room air HEENT: EOMI, ANABEL, MMM Chest: Clear breath sounds bilaterally, no wheezes or crackles CVS: Regular rate and rhythm, normal heart sounds, no murmur Abdomen: Soft, non tender, not distended, normal bowel sounds Neuro: Awake, alert, oriented, conversing well, non focal Extremities: No cyanosis, clubbing or edema Results & Data Results & Data ([facility]) Vital Signs (Past 12 Hours) Vital Signs Temp Pulse Pulse Resp BP Pulse Ox 11/05/21 08:37 36.7 C 66 17 153/68 H 93 11/05/21 07:19 62 11/05/21 04:02 36.7 C 69 18 149/66 H 94 11/05/21 03:01 69 11/04/21 23:29 36.6 C 74 18 177/85 H 98 Laboratory Results BMP 11/05/21 06:06 Sodium 138 Potassium 4.0 Chloride 107 Carbon Dioxide 25 BUN 30 H Creatinine 1.26 H D Glucose 113 H Calcium 9.3 Medications Administered Current Inpatient Medications Acetaminophen (Acetaminophen 500 Mg Tab) 1,000 mg PO Q8H PRN PRN Reason: Pain Stop: 11/30/21 21:42 Last Admin: 11/05/21 09:58 Dose: 1,000 mg Documented by: Aspirin (Aspirin 81 Mg Ectab) 81 mg PO QAM REPLACED BY [facility] Stop: 12/01/21 08:59 Last Admin: 11/05/21 09:55 Dose: 81 mg Documented by: Atorvastatin Calcium (Atorvastatin 40 Mg Tab) 40 mg PO HS REPLACED BY [facility] Stop: 11/30/21 21:59 Last Admin: 11/04/21 20:43 Dose: 40 mg Documented by: Dextrose (Dextrose 50% 50 Ml Syringe) 25 - 50 ml IV UD PRN; Protocol PRN Reason: Hypoglycemia Protocol Stop: 11/30/21 21:59 Enoxaparin Sodium (Enoxaparin Inj 30 Mg/0.3 Ml Syr) 30 mg SQ QAM REPLACED BY [facility] Stop: 12/01/21 14:44 Last Admin: 11/05/21 09:53 Dose: 30 mg Documented by: Furosemide (Furosemide 20 Mg Tab) 20 mg PO MoWeFr@0900 REPLACED BY [facility] Stop: 12/01/21 08:59 Last Admin: 11/01/21 09:03 Dose: 20 mg Documented by: Glucagon (Glucagon For Inj 1 Mg Vial) 1 mg SQ UD PRN; Protocol PRN Reason: Hypoglycemia Protocol Stop: 11/30/21 21:59 Glucose (Glucose 10 Tabs/Tube) 4 - 8 tabs PO UD PRN; Protocol PRN Reason: Hypoglycemia Protocol Stop: 11/30/21 21:59 Glucose (Glucose 40% Gel 15 Gm Tube) 15 - 30 gm PO UD PRN; Protocol PRN Reason: Hypoglycemia Protocol Stop: 11/30/21 21:59 Hydralazine HCl (Hydralazine Hcl 20 Mg/Ml Vial) 10 mg IV Q4 PRN PRN Reason: SBP>180 or DBP>110 Stop: 12/03/21 11:34 Last Admin: 11/04/21 00:09 Dose: 10 mg Documented by: Hydralazine HCl (Hydralazine Hcl 25 Mg Tab) 25 mg PO Q8 REPLACED BY [facility] Stop: 12/04/21 13:59 Last Admin: 11/05/21 06:14 Dose: 25 mg Documented by: Insulin Aspart (Insulin Aspart Per Unit) 0 units SC ACHS REPLACED BY [facility] Stop: 11/30/21 21:59 Last Admin: 11/05/21 07:46 Dose: 7 units Documented by: Insulin Glargine (Insulin Glargine Solostar 100 Units/Ml 3 Ml Pen) 15 units SC BID REPLACED BY [facility] Stop: 11/30/21 21:59 Last Admin: 11/05/21 09:53 Dose: 15 units Documented by: Lisinopril (Lisinopril 20 Mg Tab) 20 mg PO BID REPLACED BY [facility] Stop: 11/30/21 21:59 Last Admin: 11/05/21 09:51 Dose: 20 mg Documented by: Metoprolol Succinate (Metoprolol Succ 50mg Ext Rel Tab) 100 mg PO QAM REPLACED BY [facility] Stop: 12/01/21 08:59 Last Admin: 11/05/21 09:55 Dose: 100 mg Documented by: Miscellaneous (Carbohydrates For Hypoglycemia ) 15 - 30 gm PO UD PRN PRN Reason: Hypoglycemia Protocol Stop: 11/30/21 21:59 Pantoprazole Sodium (Pantoprazole 40 Mg Tab) 40 mg PO QAM REPLACED BY [facility] Stop: 12/01/21 08:59 Last Admin: 11/05/21 09:51 Dose: 40 mg Documented by: Senna/Docusate Sodium (Docusate Sodium/Senna 50/8.6mg Tab) 2 tab PO HS PRN PRN Reason: Constipation Stop: 12/03/21 20:59 Last Admin: 11/03/21 20:54 Dose: 2 tab Documented by: Spironolactone (Spironolactone 12.5 Mg Tab) 12.5 mg PO DAILY REPLACED BY [facility] Stop: 12/05/21 09:44 Last Admin: 11/05/21 09:56 Dose: 12.5 mg Documented by: Verapamil HCl (Verapamil Hcl 40 Mg Tab) 40 mg PO TID REPLACED BY [facility] Stop: 12/01/21 16:59 Last Admin: 11/03/21 14:00 Dose: 40 mg Documented by: Verapamil HCl (Verapamil Hcl 180 Mg Tabcr) 180 mg PO QPM REPLACED BY [facility] Stop: 12/03/21 20:59 Last Admin: 11/04/21 20:45 Dose: 180 mg Documented by:
[2021-11-05] MEDS: ATORVASTATIN 40 MG TAB PO SCH (20:41)
[2021-11-05] MEDS: VERAPAMIL HCL 180 MG TABCR PO SCH (20:41)
[2021-11-05] MEDS: DOCUSATE SODIUM/SENNA 50/8.6MG TAB PO PRN (20:42)
[2021-11-05] MEDS: hydrALAZINE TAB 50 MG TAB PO SCH (22:43)
[2021-11-06] MEDS: hydrALAZINE HCL 20 MG/ML VIAL IV PRN ×2 (04:08→10:51)
[2021-11-06] MEDS: hydrALAZINE TAB 50 MG TAB PO SCH ×3 (06:29→21:31)
[2021-11-06] MEDS ORDERED: SODIUM CHLORIDE 0.65% NA SOLN 45 ML (OCEAN) ONE ×2 (06:33→07:00)
[2021-11-06] MEDS: ACETAMINOPHEN 500 MG TAB PO PRN ×2 (06:34→20:21)
[2021-11-06 06:57] LABS: BUN Creatinine Ratio 22.9 (10-20); Calcium 9.2 mg/dl (8.5-10.1); Creatinine Clr Calc Pharmacy 31.5 ml/min; Est GFR (African American) 39.1 ml/min; Est GFR (Non-African American) 33.7 ml/min; Potassium 4.1 mmol/L (3.5-5.1)
[2021-11-06] MEDS: INSULIN ASPART PER UNIT SC SCH ×4 (08:12→21:26)
[2021-11-06] MEDS: INSULIN GLARGINE SOLOSTAR 100 UNITS/ML 3 ML PEN SC SCH ×2 (08:13→21:26)
[2021-11-06] MEDS: SPIRONOLACTONE 12.5 MG TAB PO SCH (08:14)
[2021-11-06] MEDS: lisinopril 20 MG TAB PO SCH ×2 (08:14→20:21)
[2021-11-06] MEDS: ENOXAPARIN INJ 30 MG/0.3 ML SYR SQ SCH (08:15)
[2021-11-06] MEDS: ASPIRIN 81 MG ECTAB PO SCH (08:15)
[2021-11-06] MEDS ORDERED: traMADol HCL 50 MG TABLET PO ONE (08:15)
[2021-11-06] MEDS: METOPROLOL SUCC 50MG EXT REL TAB PO SCH (08:15)
[2021-11-06] MEDS: PANTOprazole 40 MG TAB PO SCH (08:16)
--- NOTE | 2021-11-06 08:54 | Hospitalist Progress Note ---
Date of Service November 06, 2021 Assessment & Plan (1) Hypertensive urgency: (2) Carotid artery stenosis: (3) Diabetes mellitus with kidney complication, without long-term current use of insulin: Plan: HTNsive urgency - s/p natacha miramontes. Cardiology on board Currently on Long acting Verpamil, aldactone, lisinopril, hydralazine, metoprolol, iv hydralazine prn Echo > Normal EF. NO wall motion abnormality. Renal duplex with possible left renal artery stenosis, no indication for CTA as per cardio. Word finding difficulty for few seconds last night and earlier today last night BP was high when it happened Recent CTA neck Right carotid stenosis On aspirin , statin and BP meds will consult neurology and close monitor. 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 Baseline around 1.3.Today 1.4. Received contrast. To avoid contrast or nephrotoxic meds. Right Carotid artery disease- seen in CTA- 70-80% stenosis, Seen by vascular surgery recommended OP follow up in 6 months with US carotid Elevated trop, mild elevationMost likely demand ischemia, EKG ok, . Echo reviewed- no WMA. Cardio on board. DM-2 with CKD3 with hyperglycemia- on 5 antidiabetics at home- on hold. On Lantus and novolog which we will continued and adjusted Code status- full code Dispo- Pending better control of blood pressure.Anticipating discharge on DVT prophylaxis- co lovenox Admission and Anticipated Discharge Date Admission Date: October 31, 2021 Subjective Patient complaining of frontal headache 6/10 in severity Last night and earlier in morning she had few second episode of word finding difficulty but doing ok now during the first episode her BP was high Ate her breakfast denies chest pain or sob No nausea no abdominal pain ambulating in room ok Afebrile chronic on and off double vision since cataract surgery Review of Systems Review of Systems: All systems reviewed & are unremarkable except as noted in Subjective Physical Exam Eyes: EOMI Neck: trachea midline, no thyromegaly Respiratory: normal respiratory effort, lungs clear to auscultation Cardiovascular: RRR, no murmur, no edema Gastrointestinal (Abdomen): normal bowel sounds, soft, nontender, no hepatosplenomegaly Neurologic: PERRL, EOMI, accommodation nl, no face palsy, no dysarthria Cranial Nerves: EOM intact bilaterally and normal hearing Psychiatric: A+Ox3, euthymic affect Results & Data Results & Data ([facility]) Vital Signs (Past 12 Hours) Vital Signs Temp Pulse Pulse Resp BP Pulse Ox 11/06/21 07:30 74 20 159/73 H 97 11/06/21 04:20 36.6 C 55 L 18 187/80 H 97 11/06/21 01:08 56 L 11/05/21 23:19 36.6 C 61 18 151/86 H 97
--- NOTE | 2021-11-06 11:30 | Cardiology Progress Note ---
Date of Service November 06, 2021 Assessment & Plan (1) Hypertensive urgency: (2) Elevated troponin I level: (3) Carotid artery stenosis: Plan: 86 year old female (1) Hypertensive urgency: Patient with longstanding history of difficult to control hypertension. Reviewed her medication regimen for when she initially established with local care in January,. At that time she was on amlodipine 5 mg daily which had since been discontinued apparently in early October, due to concerns of edema. She had previously been on lisinopril 10 mg daily and this is most recently been titrated to 20 mg twice daily. She had previously been on spironolactone 25 mg daily. This was cut back to 12.5 mg daily in January,, and then discontinued completely in June,, apparently due to mildly elevated potassium level, 5.2 mmol/L noted at the time medication was discontinued. She has been on metoprolol succinate on a chronic basis 100 mg daily which is unchanged. More recently, Lasix 20 mg every Thursday added. (2) Elevated troponin I level: Transient chest tightness, in the setting of hospitalization elevated blood pressure. EKG performed x2 without acute findings. J-point elevation noted in the inferior leads at time of EKG at 10:34 AM, but she certainly does not have symptoms to suggest that she is having a transmural myocardial infarction. Her echocardiogram performed revealed normal LV wall motion, with hyperdynamic left ventricular systolic function. Mild elevation in her at bedtime troponin is likely explained on the part of hyperdynamic left ventricular systolic function in the setting of high blood pressure. She denies having had a past history of coronary heart disease. Continue chronic therapy with aspirin. (3) Carotid artery stenosis: 70% right internal carotid stenosis noted on CT angiogram of the neck vessels. No neurologic symptoms. Patient seen by vascular surgery. Agree with risk factor management such as blood pressure control, ongoing statin therapy with atorvastatin 40 mg daily, vascular recommends clinic follow-up with them and repeat imaging at a 6-month interval. (4) acute kidney injury Baseline creatinine typically around 1.3 Plan: Patient hypertensive urgency is improving. Recent history is notable for discontinuation of spironolactone 09/13/2021 due 2 mild hyperkalemia, discontinuation of amlodipine secondary to lower extremity edema 10/16/2021 Signs of fluid volume retention lower extremity edema improved in hospital Hypertensive heart disease with diastolic dysfunction/diastolic heart failure No indications for renal artery CTA Today having concerns reading word searching and BL arm tingling in the setting of HTN- Primary team consulted neurology and there are plans to have noncontrast head CT repeated. Mini neuro exam unremarkable on my assessment besides arm tingling. I believe that there is a component of anxiety related to her labile BP readings. Patient became very upset and she stated she does not want to be discharged at this time. BP also elevated after having a stressful call with social security- discussed financial concerns at home. Patient tearful on exam. Plan: Continue to titrate medications. Continue current dosing of metoprolol, lisinopril and verapamil, and hydralazine. Renal function stable showed a slight decline (1.4 from 1.26) with a mildly low sodium of 135 (previously 138), potassium stable. Okay to continue Aldactone at this time- repeat a BMP tomorrow am to reassess. There is some room for some titration of hydralazine, however I am hesitant given age and lability of her BP readings. I would suggest that there is some mental health/anxiety contributing to her labile readings and will defer to primary team for anxiolytics if they deem appropriate. Agree with neurology workup and head CT. Patient already on Jardiance for diabetes with addition of cardiac benefits discussed in setting of diastolic dysfunction Case discussed with Dr. Billy Admission and Anticipated Discharge Date Admission Date: October 31, 2021 Supervising Physician Co-Signing Physician Notes Patient seen and examined the bedside. Reports concerns regarding labile blood pressure. Blood pressure trending downward currently to 150/100. Notes transient paresthesias involving her fingertips as well as word finding issues this morning. Neurology recommending CT of the head which was unremarkable. Symptoms have resolved. PE: Elevated blood pressure, otherwise stable vital signs. General: NAD, anxious. Heart: Regular, normal S1-S2. No murmur. Lungs: Clear bilateral, no rales, rhonchi, wheeze. Abdomen: Soft nontender, no rebound or guarding. Extremities: No edema. 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 Continue current antihypertensive medications including lisinopril, metoprolol, verapamil, hydralazine, and furosemide. Monitor blood pressure. Consider addition of anxiolytic therapy. Subjective Patient seen and examined, chart, medications, and tele reviewed. Patient has a known history of difficult to control labile HTN. BP elevated after getting off the phone with social security- given 10 mg IV hydralazine with little improvement 230/71 >> 208/85. Continues to note fullness in the head/head ache. Upon entrance into the room- resting comfortably in bed, asleep. Woke easily- very anxious now tearful on exam. States, "I am not leaving the hospital prematurely". Concerns regarding numbness and tingling in BL upper extremities over night and into this morning. Good/equal strength, no issues with movement or coordination. Concerns regarding word searching episodes. Nursing stated that she was having difficulty finding the work "[employer]". Seen by hospitalist team- planning on repeating head CT and neuro was consulted. Review of Systems Review of Systems: All systems reviewed & are unremarkable except as noted in HPI & below Physical Exam Physical Exam: Constitutional: WD/WN, vitals as above Eyes: PERRL, conjunctivae normal, anicteric sclerae No concerning visual changes. ENMT: external ear and nose normal, oropharynx normal Neck: trachea midline, no thyromegaly Respiratory: normal respiratory effort, lungs clear to auscultation Cardiovascular: RRR, no murmur, no edema Vessels: no JVD Extremities: no edema Gastrointestinal (Abdomen): normal bowel sounds, soft, nontender, no hepatosplenomegaly Skin: no rashes, warm and dry Neurologic: PERRL, EOMI, accommodation nl, no face palsy, no dysarthria awake Speech / Cognition: no expressive aphasia Motor/Sensory: + sensory deficit (numbness and tingling in BL upper extremities); no tremor, normal movement and no pronator drift Cranial Nerves: PERRL, normal facial strength and tongue midline Coordination: normal [id number] test and normal rapid alternating movements Psychiatric: Orientation: alert, oriented x 3 and cooperative Eye Contact: good eye contact Motor Behavior: no abnormal motor movements; n tremor Speech: normal rate/rhythm/volume of speech Affect: + anxious affect and + tearful affect Mood: + anxious mood Thought Process: clear/coherent thought process Results & Data ([facility]) Vital Signs (Past 12 Hours) Vital Signs Temp Pulse Pulse Resp BP Pulse Ox 11/06/21 10:48 36.3 C L 63 20 230/71 H 97 11/06/21 07:30 74 20 159/73 H 97 11/06/21 04:20 36.6 C 55 L 18 187/80 H 97 11/06/21 01:08 56 L Laboratory Results Comprehensive Metabolic Panel 11/06/21 Range/Units 06:23 Sodium 135 L (136-145) mmol/L Potassium 4.1 (3.5-5.1) mmol/L Chloride 104 (98-107) mmol/L Carbon Dioxide 23 (21-32) mmol/L BUN 32 H (6-23) mg/dl Creatinine 1.40 H (0.6-1.2) mg/dl Glucose 141 H (70-99(Fasting)) mg/dl Calcium 9.2 (8.5-10.1) mg/dl Intake and Output 11/05/21 11/06/21 11/06/21 22:59 06:59 14:59 Intake Total 120 / 1040 Output Total Balance 120 / 1040 - Intake: Oral 120 / 1040 Output: # Bowel Movements Other: Weight 93.2 kg Weight Measurement Method Built in [facility]
--- NOTE | 2021-11-06 12:46 | CT Scan Report ---
CT OF THE HEAD WITHOUT CONTRAST CLINICAL HISTORY: BRIEF WORD FINDING DIFFICULTY COMPARISON STUDY: Head CT and CTA of the head October 31, 2021. CT DOSE: 614.27 mGy.cm TECHNIQUE: Helical axial images of the head were obtained without IV contrast. Automated exposure con trol was utilized for the study. A dose lowering technique was utilized adhering to the principles o f ALARA. FINDINGS: No acute intracranial hemorrhage, midline shift or mass effect is present. White matter hyp odensities favor small vessel disease. The ventricular system is unremarkable. The basal cisterns are patent. No extra-axial collections are present. There are no findings to suggest acute dural sinus t hrombosis or acute territorial infarct. No significant calvarial abnormalities are present. Visualize d portions of the sinuses and mastoid air cells are clear. IMPRESSION: No acute intracranial findings. ACT 112: Negative or not required by law. Electronically signed by: Demetrius Sena M.D. 11/06/2021 12:45 PM
--- NOTE | 2021-11-06 12:54 | Neurology Consultation ---
Date of Consultation November 06, 2021 Assessment & Plan (1) Word finding difficulty: 1. CT head- no acute findings 2. MRI brain if no contra indications- without contrast 3. blood pressure control moderate 4. TTE no ASD 5. CTA head neck- RCA stenosis- will see vascular as outpatient 6. continue aspirin 81 mg for now 7. HLD, DM optimize LDL <70 8. this may have been a hypertensive neurologic symptoms but will r/o stroke with MRI Supervising Physician Co-Signing Physician Notes I have seen and discussed above patient with Dr Kari Freedman, neurology. Pt seen and examined with MANUEL Fernandez via video. Exam notable only for decreased LT R hand. Pt discussed 1 episode of difficulty finding words lasting seconds to 1-2 min and another episode of numbness bl arms which has persisted but is improved. CT head neg and CTA head and neck on admission shows a SLIME stenosis of 80% which is otherwise asx. (I have reviewed vascular's note) Suspect that sx were related to a hypertensive urgency. None appear to localize to the SLIME, Rec MRI brain ,eval for new infarct, if that was noted would change antiplt tx. Rec gradual good control of bp. LDL goal <70. Will follow with you. MD Prashant History of Present Illness Reason for Consultation: TIA?? Requesting Physician: Zak Currie MD Attending Physician: Zak Currie MD History of Present Illness Ramila is a 86 year old female with PMH HTN, DM-2, CKD who presented to [facility] 10/31/21 with hypertensive urgency. She is from [place] and moved here [address] Bauman. as PCP her last was visit 10/16. some of her medications were adjusted including her blood pressure medications and diabetic medications. This morning, after breakfast around 11 am, she had a frontal headache along with worsening head fogginess (had foggy head since Covid last year but worse). She took her BP as she was not feeling very well and her BP monitor would not read. EMS was called and her BP was in 230s for EMS. After arrival her BP in 190s- 230s. No neurological symptoms or deficits. She took her lisinopril and Toprol that morning.Last evening and this am she had some word finding issues. A CT head was done with no new findings. She is feeling very "foggy" but this has been going on since she was hospitalized in [place] with [facility]. She has had issues with word finding in the past but this seemed more of a problem with getting the word out that she wanted to say. She also had some numbness in her hand the goes up her arms which she has experienced in the past since covid. denies CP, SOB, abdominal pain, one sided weakness, numbness tingling N, V. Allergies Allergy/AdvReac Type Severity Reaction Status Date / Time latex Allergy Unknown Unknown Unverified 10/31/21 16:22 Penicillins Allergy Unknown Unknown Unverified 10/31/21 16:22 Sulfa (Sulfonamide Allergy Unknown Unknown Unverified 10/31/21 16:22 Antibiotics) Home Medications Medication Instructions Recorded Confirmed Type Macular Degeneration Capsules 4 cap PO QAM 10/31/21 10/31/21 History acetaminophen 500 mg tablet 1,000 mg PO Q8H PRN 10/31/21 10/31/21 History aspirin 81 mg tablet,delayed 81 mg PO QAM 10/31/21 10/31/21 History release atorvastatin 40 mg tablet 40 mg PO HS 10/31/21 10/31/21 History coQ10 (ubiquinol) 100 mg capsule 100 mg PO QAM 10/31/21 10/31/21 History cyanocobalamin (vitamin B-12) 1,000 mcg PO 3XWK 10/31/21 10/31/21 History 1,000 mcg tablet (Vitamin B-12) empagliflozin 25 mg tablet 25 mg PO QAM 10/31/21 10/31/21 History (Jardiance) furosemide 20 mg tablet (Lasix) 20 mg PO 3XWK 10/31/21 10/31/21 History ginkgo biloba 40 mg tablet 40 mg PO BID 10/31/21 10/31/21 History glimepiride 2 mg tablet 2 mg PO DAILYBB 10/31/21 10/31/21 History glimepiride 4 mg tablet 4 mg PO DAILYBB 10/31/21 10/31/21 History lisinopril 20 mg tablet 20 mg PO BID 10/31/21 10/31/21 History metformin 500 mg tablet 1,000 mg PO HS 10/31/21 10/31/21 History metoprolol succinate 100 mg 100 mg PO QAM 10/31/21 10/31/21 History tablet,extended release 24 hr polyvinyl alcohol-povidone (PF) 1 drp OPB BID 10/31/21 10/31/21 History 1.4 %-0.6 % eye drops in a dropperette (Refresh Classic (PF)) repaglinide 2 mg tablet 2 mg PO AC 10/31/21 10/31/21 History triamcinolone acetonide 0.025 % 1 applic TOPICAL BID 10/31/21 10/31/21 History topical cream Patient History Medical History DM2 (diabetes mellitus, type 2) H/O: HTN (hypertension) Surgical History Hx of cataract surgery Social History Smoking Status: Never smoker Second Hand Exposure: Yes; Do You Dip or Chew Tobacco: No; Hx Alcohol Use: Yes Alcohol type: wine Hx Substance Use: No Preferred Language: Libyan Communication Ability: Effective [place]el Required: No Beliefs That Will Affect Care: None Current Living Situation: Alone Other Information That Helps Us Care for You: No Feels Safe at Home: Yes Safety Concerns: Feels Safe At This Time Assistive Devices: Walker Review of Systems Review of Systems: All systems reviewed & are unremarkable except as noted in HPI & below Physical Exam Physical Exam: Physical Exam: Constitutional: appearance nourished, healthy and normal Ears, Nose, Mouth and Throat: mucous membranes moist, no injection and skin normal, eyes normal Cardiovascular: opening murmur RRR Respiratory: clear to auscultation (CTA) and no rales, ronchi or wheeze Musculoskeletal: non pitting peripheral edema and good distal pulses Skin: no stigmata of neurocutaneous disease noted and normal and intact Eyes: extraocular muscles intact (EOMI) and pupils equal, round and reactive to light (PERRL) NEUROLOGIC EXAMINATION: Mental status: Alert and interactive Oriented to person Speech fluent with no evidence of aphasia Cranial Nerves some simone flattening of nasolabial fold on the left Reflexes: Deep tendon reflexes were symmetrical and decreased bilaterally LE Sensory: decrease sensation to cold hand to mid forearm. intact to vibration LE bilaterally decreased to sensation vibration bilaterally to mid lara, GT proprioception intact Coordination: finger to nose Gait/Stance: Posture normal. able to move freely from lying to sitting position Motor: Negative for pronator drift of out stretched arms with eyes closed. Strength: hand piping blocker biceps tricpes 5/5 hip flex 5/5 plantar flex 5/5 Results & Data ([facility]) Vital Signs (Past 12 Hours) Vital Signs Temp Pulse Pulse Resp BP Pulse Ox 11/06/21 11:42 61 208/85 H 11/06/21 10:48 36.3 C L 63 20 230/71 H 97 11/06/21 07:30 74 20 159/73 H 97 11/06/21 04:20 36.6 C 55 L 18 187/80 H 97 11/06/21 01:08 56 L Laboratory Results Abnormal lab results 11/05/21 11/05/21 11/06/21 Range/Units 16:29 20:15 06:23 Sodium 135 L (136-145) mmol/L BUN 32 H (6-23) mg/dl Creatinine 1.40 H (0.6-1.2) mg/dl BUN/Creatinine Ratio 22.9 H (10-20) Glucose 141 H (70-99(Fasting)) mg/dl POC Glucose 153 H 205 H (70-99) mg/dl 11/06/21 11/06/21 Range/Units 07:30 11:17 Sodium (136-145) mmol/L BUN (6-23) mg/dl Creatinine (0.6-1.2) mg/dl BUN/Creatinine Ratio (10-20) Glucose (70-99(Fasting)) mg/dl POC Glucose 159 H 178 H (70-99) mg/dl Diagnostic Findings CT head- repeated 11/06/21-No acute intracranial hemorrhage, midline shift or mass effect is present. White matter hypodensities favor small vessel disease. The ventricular system is unremarkable. The basal cisterns are patent. No extra- axial collections are present. There are no findings to suggest acute dural sinus thrombosis or acute territorial infarct. No significant calvarial abnormalities are present. Visualized portions of the sinuses and mastoid air cells are clear. TTE-70 % EF, no ASD Renal US-. Mildly elevated velocities within the left renal artery with without significant increase in renal to aortic ratio. Normal segmental waveforms within the left kidney. These findings are equivocal for left-sided renal artery stenosis. A CTA of the abdomen could be obtained for further evaluation. Normal velocities within the right renal artery however delayed upstrokes within the segmental vessels raise the possibility of an upstream stenosis. This can be assessed on CTA. CTA head-Negative CT angiogram of the brain with contrast. CTA neck-Extensive plaque within the right carotid bifurcation which results in 70-80% stenosis of the proximal right internal carotid artery. No additional stenoses within the bilateral common carotid, cervical internal carotid or vertebral arteries.
[2021-11-06] MEDS ORDERED: traMADol HCL 50 MG TABLET PO PRN (14:00)
[2021-11-06] MEDS: ATORVASTATIN 40 MG TAB PO SCH (20:20)
[2021-11-06] MEDS: VERAPAMIL HCL 180 MG TABCR PO SCH (20:21)
[2021-11-06] MEDS: DOCUSATE SODIUM/SENNA 50/8.6MG TAB PO PRN (20:23)
--- NOTE | 2021-11-06 21:11 | Magnetic Resonance Report ---
MRI OF THE BRAIN WITHOUT IV CONTRAST CLINICAL HISTORY: Transient ischemic attack. Difficulty with word finding. COMPARISON STUDY: CT of the brain dated 11/06/2021 TECHNIQUE: MRI of the brain was performed utilizing various T1 and T2-weighted sequences in the axial , sagittal, and coronal planes. IV contrast was not administered for this examination. FINDINGS: Brain parenchyma: There is age-related involutional change noting minimal microangiopathic disease. T here is no hemorrhage or mass effect. There is no restricted diffusion typical for acute ischemia. Gr ay-white matter differentiation is preserved. No extra-axial fluid collection is seen. The cerebellar tonsils are normal in configuration. Ventricles, sulci, and cisterns: Prominent secondary to involutional change. Pituitary and sella: Partially empty sella is incidentally noted. Intracranial vasculature: Normal flow voids are maintained at the skull base. Orbits: The bony orbits are grossly intact. Orbital contents are normal in appearance noting bilatera l ocular lens implants. Sinuses and mastoids: There is trace mucosal thickening, fluid, and a 1.4 cm retention cyst in the le ft maxillary antrum. Mild mucosal thickening is noted within the right ethmoid sinus. The remaining p aranasal sinuses are clear. The mastoid air cells are well pneumatized. Calvarium: Unremarkable. Cervical cord: Partially visualized cervical spinal cord is normal in morphology and signal intensity . IMPRESSION: No acute intracranial abnormality. ACT 112: Negative or not required by law. Electronically signed by: Tyler Vang M.D. 11/06/2021 9:09 PM
[2021-11-07] MEDS: hydrALAZINE TAB 50 MG TAB PO SCH ×3 (05:51→21:41)
[2021-11-07] MEDS: INSULIN ASPART PER UNIT SC SCH ×4 (08:33→21:42)
[2021-11-07] MEDS: ENOXAPARIN INJ 30 MG/0.3 ML SYR SQ SCH (08:34)
[2021-11-07] MEDS: ASPIRIN 81 MG ECTAB PO SCH (08:34)
[2021-11-07] MEDS: INSULIN GLARGINE SOLOSTAR 100 UNITS/ML 3 ML PEN SC SCH ×2 (08:34→21:42)
[2021-11-07] MEDS: PANTOprazole 40 MG TAB PO SCH (08:34)
[2021-11-07] MEDS: SPIRONOLACTONE 12.5 MG TAB PO SCH (08:34)
[2021-11-07] MEDS: METOPROLOL SUCC 50MG EXT REL TAB PO SCH (08:34)
[2021-11-07] MEDS: lisinopril 20 MG TAB PO SCH ×2 (08:34→21:39)
--- NOTE | 2021-11-07 10:34 | Cardiology Progress Note ---
Date of Service November 07, 2021 Assessment & Plan (1) Hypertensive urgency: (2) Elevated troponin I level: (3) Carotid artery stenosis: Plan: 86 year old female (1) Hypertensive urgency: Patient with longstanding history of difficult to control hypertension. Reviewed her medication regimen for when she initially established with local care in January,. At that time she was on amlodipine 5 mg daily which had since been discontinued apparently in early October, due to concerns of edema. (2) Elevated troponin I level: Transient chest tightness, in the setting of hospitalization elevated blood pressure. EKG performed x2 without acute findings. J-point elevation noted in the inferior leads at time of EKG at 10:34 AM, but she certainly does not have symptoms to suggest that she is having a transmural myocardial infarction. Her echocardiogram performed revealed normal LV wall motion, with hyperdynamic left ventricular systolic function. Mild elevation in her at bedtime troponin is likely explained on the part of hyperdynamic left ventricular systolic function in the setting of high blood pressure. She denies having had a past history of coronary heart disease. Continue chronic therapy with aspirin. (3) Carotid artery stenosis: 70% right internal carotid stenosis noted on CT angiogram of the neck vessels. No neurologic symptoms. Patient seen by vascular surgery. Agree with risk factor management such as blood pressure control, ongoing statin therapy with atorvastatin 40 mg daily, vascular recommends clinic follow-up with them and repeat imaging at a 6-month interval. (4) acute kidney injury Baseline creatinine typically around 1.3 Plan: Patient hypertensive urgency is improving. Recent history is notable for discontinuation of spironolactone 09/13/2021 due 2 mild hyperkalemia, discontinuation of amlodipine secondary to lower extremity edema 10/16/2021 Signs of fluid volume retention lower extremity edema improved in hospital Hypertensive heart disease with diastolic dysfunction/diastolic heart failure No indications for renal artery CTA Plan: Blood pressures are trending towards better control. Would not use IV hydralazine for any isolated elevation in blood pressures. Do not expect blood pressures to "normalize" in near future Creatinine up slightly but I agree with holding furosemide gentle hydration today. Ultimate goal transition to home now on current medical regimen Admission and Anticipated Discharge Date Admission Date: October 31, 2021 Subjective Patient seen and examined, chart, medications, telemetry reviewed. Feels better this morning no chest pains no neurologic complaints. Evaluation yesterday resulted in negative cerebral imaging. Blood pressures are gradually trending towards better control Review of Systems Review of Systems: All systems reviewed & are unremarkable except as noted in Subjective Physical Exam Physical Exam: Constitutional: WD/WN, vitals as above Eyes: PERRL, conjunctivae normal, anicteric sclerae ENMT: external ear and nose normal, oropharynx normal Neck: trachea midline, no thyromegaly Respiratory: normal respiratory effort, lungs clear to auscultation Cardiovascular: RRR, no murmur, no edema Vessels: no JVD Extremities: no edema Gastrointestinal (Abdomen): normal bowel sounds, soft, nontender, no hepatosplenomegaly Neurologic: PERRL, EOMI, accommodation nl, no face palsy, no dysarthria Results & Data ([facility]) Vital Signs (Past 12 Hours) Vital Signs Temp Pulse Resp BP Pulse Ox 11/07/21 07:35 36.6 C 64 18 174/98 H 94 11/07/21 05:49 60 16 137/58 L 95 11/07/21 02:39 36.7 C 63 16 137/52 L 96 11/06/21 23:21 36.8 C 64 16 125/51 L 95 Laboratory Results Diagnostic Findings Laboratory Results - last 24 hr 11/06/21 11/06/21 11/07/21 16:13 21:05 07:30 Sodium Potassium Chloride Carbon Dioxide Anion Gap BUN Creatinine Est Cr Clr Drug Dosing Est GFR ( Amer) Est GFR (Non-Af Amer) BUN/Creatinine Ratio Glucose POC Glucose 187 H 221 H 116 H Calcium 11/07/21 11/07/21 09:58 11:08 Sodium 133 L Potassium 4.4 Chloride 102 Carbon Dioxide 22 Anion Gap 9 BUN 43 H Creatinine 1.90 H D Est Cr Clr Drug Dosing 23.2 Est GFR ( Amer) 27.0 Est GFR (Non-Af Amer) 23.3 BUN/Creatinine Ratio 22.6 H Glucose 214 H POC Glucose 206 H Calcium 9.5
[2021-11-07 10:39] LABS: BUN Creatinine Ratio 22.6 (10-20); Calcium 9.5 mg/dl (8.5-10.1); Creatinine Clr Calc Pharmacy 23.2 ml/min; Est GFR (Non-African American) 23.3 ml/min; Potassium 4.4 mmol/L (3.5-5.1)
--- NOTE | 2021-11-07 10:48 | Hospitalist Progress Note ---
Date of Service November 07, 2021 Assessment & Plan (1) Hypertensive urgency: (2) Carotid artery stenosis: (3) Diabetes mellitus with kidney complication, without long-term current use of insulin: Plan: HTNsive urgency s/p natacha miramontes. Cardiology on board Currently on Long acting Verpamil, aldactone, lisinopril, hydralazine, metoprolol, iv hydralazine prn seems better controlled . continue to monitor Echo > Normal EF. NO wall motion abnormality. Renal duplex with possible left renal artery stenosis, no indication for CTA as per cardio. Word finding difficulty for few seconds yesterday morning and also on 11/05 night seems BP was high when it happened Recent CTA neck Right carotid stenosis On aspirin , statin and BP meds CT head and mRi head ok appreciate neurology inputs Anxiet/stress ok to try zoloft will start on 25mg daily and followup with PCP. 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 Baseline around 1.3.Today again 1.9. gentle fluids, avoid nephrotoxic agents. Followup labs. Right Carotid artery disease- seen in CTA- 70-80% stenosis, Seen by vascular surgery recommended OP follow up in 6 months with US carotid Elevated trop, mild elevation.Most likely demand ischemia, EKG ok, . Echo reviewed- no WMA. Cardio on board. DM-2 with CKD3 with hyperglycemia- on 5 antidiabetics at home- on hold. On Lantus and novolog . Adjsuted ISS today. Will monitor. Code status- full code Dispo- Pending better control of blood pressure.Possibe d/c tomorrow. PT/OT DVT prophylaxis- sc lovenox Admission and Anticipated Discharge Date Admission Date: October 31, 2021 Subjective says she is ahppy her BP stayed controlled last night feels like going home but want to stay one more day to be sure BP is under control Says has stress anxiety with her condition and ok to try trial of low dose zoloft denies any chest pain or sob afebrile eating good no nausea ambulating in room on normal bowel and bladder movements has mild headache and attributes to sinus congestion Review of Systems Review of Systems: All systems reviewed & are unremarkable except as noted in Subjective Physical Exam Constitutional: WD/WN, vitals as above Neck: trachea midline, no thyromegaly Respiratory: normal respiratory effort, lungs clear to auscultation Cardiovascular: RRR, no murmur, no edema Gastrointestinal (Abdomen): normal bowel sounds, soft, nontender, no hepatosplenomegaly Neurologic: EOMI, No facial palsy, No dysarthria, Moves extremties Results & Data Results & Data ([facility]) Vital Signs (Past 12 Hours) Vital Signs Temp Pulse Resp BP Pulse Ox 11/07/21 07:35 36.6 C 64 18 174/98 H 94 11/07/21 05:49 60 16 137/58 L 95 11/07/21 02:39 36.7 C 63 16 137/52 L 96 11/06/21 23:21 36.8 C 64 16 125/51 L 95
[2021-11-07] MEDS ORDERED: SODIUM CHLORIDE 0.9% 1000ML 1,000 ML IV SCH (11:00)
[2021-11-07] MEDS: SERTRALINE HCL 50 MG TABLET PO SCH (12:19)
--- NOTE | 2021-11-07 14:33 | Neurology Progress Note ---
Date of Service November 07, 2021 Assessment & Plan (1) Word finding difficulty: Plan: 1. CT head- no acute findings 2. MRI brain if no contra indications- without contrast -no acute findings 3. blood pressure control moderate - cardiology follow up 4. TTE no ASD 5. CTA head neck- RCA stenosis- will see vascular as outpatient 6. continue aspirin 81 mg for now 7. HLD, DM optimize LDL <70 8. this may have been a hypertensive neurologic symptoms but will r/o stroke with MRI no follow up in neurology needed at this time will be glad to see her with any future issues Admission and Anticipated Discharge Date Admission Date: October 31, 2021 Supervising Physician Co-Signing Physician Notes I have seen and discussed above patient with Dr Kari Freedman, neurology. PT seen. Brief episode lasting secs to 2 min of word finding difficulty and bl arm tinglin which lasted longer, both in the setting of profound hypertension. MRI brain no acute infarct. Suspect these somewhat brief, vague episodes were related to hypertensive emergency and that continued good control of vasc risk factors is appropriate. neither episode localizes the the stenotic SLIME 70-80%. in this regard pt should follow with vascular surgery post dc. Will sign off. MD Prashant Hernesto Mcgrath is a 86 year old female with PMH HTN, DM-2, CKD who presented to [facility] 10/31/21 with hypertensive urgency. She is from [place] and moved here [address] Bauman. as PCP her last was visit 10/16. some of her medications were adjusted including her blood pressure medications and diabetic medications. This morning, after breakfast around 11 am, she had a frontal headache along with worsening head fogginess (had foggy head since Covid last year but worse). She took her BP as she was not feeling very well and her BP monitor would not read. EMS was called and her BP was in 230s for EMS. After arrival her BP in 190s- 230s. No neurological symptoms or deficits. She took her lisinopril and Toprol that morning.Last evening and this am she had some word finding issues. A CT head was done with no new findings. She is feeling very "foggy" but this has been going on since she was hospitalized in [place] with covid. She has had issues with word finding in the past but this seemed more of a problem with getting the word out that she wanted to say. She also had some numbness in her hand the goes up her arms which she has experienced in the past since covid. She is going home tomorrow with follow up with cardiology and vascular. denies CP, SOB, abdominal pain, one sided weakness, numbness tingling N, V. Review of Systems Review of Systems: All systems reviewed & are unremarkable except as noted in HPI & below Physical Exam Physical Exam: Physical Exam: Constitutional: appearance nourished, healthy and normal Ears, Nose, Mouth and Throat: mucous membranes moist, no injection and skin normal, eyes normal Skin: no stigmata of neurocutaneous disease noted and normal and intact Eyes: extraocular muscles intact (EOMI) and pupils equal, round and reactive to light (PERRL) NEUROLOGIC EXAMINATION: Mental status: Alert and interactive Oriented to person Speech fluent with no evidence of aphasia Cranial Nerves facial symmetry Gait/Stance: Posture sitting up bedside eating supper Results & Data ([facility]) Vital Signs (Past 12 Hours) Vital Signs Temp Pulse Resp BP Pulse Ox 11/07/21 11:43 36.6 C 69 18 163/65 H 95 11/07/21 07:35 36.6 C 64 18 174/98 H 94 11/07/21 05:49 60 16 137/58 L 95 11/07/21 02:39 36.7 C 63 16 137/52 L 96 Laboratory Results Abnormal lab results 11/06/21 11/06/21 11/07/21 Range/Units 16:13 21:05 07:30 Sodium (136-145) mmol/L BUN (6-23) mg/dl Creatinine (0.6-1.2) mg/dl BUN/Creatinine Ratio (10-20) Glucose (70-99(Fasting)) mg/dl POC Glucose 187 H 221 H 116 H (70-99) mg/dl 11/07/21 11/07/21 Range/Units 09:58 11:08 Sodium 133 L (136-145) mmol/L BUN 43 H (6-23) mg/dl Creatinine 1.90 H D (0.6-1.2) mg/dl BUN/Creatinine Ratio 22.6 H (10-20) Glucose 214 H (70-99(Fasting)) mg/dl POC Glucose 206 H (70-99) mg/dl Diagnostic Findings MRI brain-No acute intracranial abnormality.
[2021-11-07] MEDS: VERAPAMIL HCL 180 MG TABCR PO SCH (21:40)
[2021-11-07] MEDS: ATORVASTATIN 40 MG TAB PO SCH (21:41)
[2021-11-08] MEDS: ACETAMINOPHEN 500 MG TAB PO PRN (03:56)
[2021-11-08] MEDS: hydrALAZINE TAB 50 MG TAB PO SCH ×2 (05:50→14:30)
[2021-11-08 07:27] LABS: Creatinine Clr Calc Pharmacy 22.8 ml/min; Est GFR (Non-African American) 22.4 ml/min
[2021-11-08] MEDS: INSULIN ASPART PER UNIT SC SCH ×2 (07:58→12:20)
[2021-11-08] MEDS: ASPIRIN 81 MG ECTAB PO SCH (09:06)
[2021-11-08] MEDS: PANTOprazole 40 MG TAB PO SCH (09:09)
[2021-11-08] MEDS: INSULIN GLARGINE SOLOSTAR 100 UNITS/ML 3 ML PEN SC SCH (09:09)
[2021-11-08] MEDS: METOPROLOL SUCC 50MG EXT REL TAB PO SCH (09:09)
[2021-11-08] MEDS: SERTRALINE HCL 50 MG TABLET PO SCH (09:09)
[2021-11-08] MEDS: lisinopril 20 MG TAB PO SCH (09:10)
[2021-11-08] MEDS: ENOXAPARIN INJ 30 MG/0.3 ML SYR SQ SCH (09:11)
--- NOTE | 2021-11-08 10:21 | Cardiology Progress Note ---
Date of Service November 08, 2021 Assessment & Plan (1) Hypertensive urgency: (2) Elevated troponin I level: (3) Carotid artery stenosis: Plan: 86 year old female (1) Hypertensive urgency: Patient with longstanding history of difficult to control hypertension. Reviewed her medication regimen for when she initially established with local care in January,. At that time she was on amlodipine 5 mg daily which had since been discontinued apparently in early October, due to concerns of edema. (2) Elevated troponin I level: Transient chest tightness, in the setting of hospitalization elevated blood pressure. EKG performed x2 without acute findings. J-point elevation noted in the inferior leads at time of EKG at 10:34 AM, but she certainly does not have symptoms to suggest that she is having a transmural myocardial infarction. Her echocardiogram performed revealed normal LV wall motion, with hyperdynamic left ventricular systolic function. Mild elevation in her at bedtime troponin is likely explained on the part of hyperdynamic left ventricular systolic function in the setting of high blood pressure. She denies having had a past history of coronary heart disease. Continue chronic therapy with aspirin. (3) Carotid artery stenosis: 70% right internal carotid stenosis noted on CT angiogram of the neck vessels. No neurologic symptoms. Patient seen by vascular surgery. Agree with risk factor management such as blood pressure control, ongoing statin therapy with atorvastatin 40 mg daily, vascular recommends clinic follow-up with them and repeat imaging at a 6-month interval. (4) acute kidney injury Baseline creatinine typically around 1.3 Plan: Patient hypertensive urgency is improving. Recent history is notable for discontinuation of spironolactone 09/13/2021 due 2 mild hyperkalemia, discontinuation of amlodipine secondary to lower extremity edema 10/16/2021 Signs of fluid volume retention lower extremity edema improved in hospital Hypertensive heart disease with diastolic dysfunction/diastolic heart failure No indications for renal artery CTA Plan: Blood pressures are trending towards better control. Would not use IV hydralazine for any isolated elevation in blood pressures. Recent mental status changes as well as likely acute decline in renal function following IV hydralazine Do not expect blood pressures to "normalize" in near future Creatinine up slightly continue to hold furosemide and spironolactone continue other medications as prescribed Ultimate goal transition to home now on current medical regimen Will follow closely as an outpatient. Would recommend home health with lab draws given independent living and limited mobility. BMP early next week Follow-up with cardiology scheduled on 11/22/2021 Admission and Anticipated Discharge Date Admission Date: October 31, 2021 Subjective Patient seen and examined, chart, medications, telemetry reviewed. No chest pains or worsening shortness of breath. Blood pressure trending towards good control. Creatinine elevated but stable. No worsening edema. Patient ambulatory in room without difficulty. No dizziness or lightheadedness. Review of Systems Review of Systems: All systems reviewed & are unremarkable except as noted in Subjective Physical Exam Physical Exam: Constitutional: WD/WN, vitals as above no acute distress Eyes: PERRL, conjunctivae normal, anicteric sclerae ENMT: external ear and nose normal, oropharynx normal Neck: trachea midline, no thyromegaly Respiratory: normal respiratory effort, lungs clear to auscultation Cardiovascular: RRR, no murmur, no edema Vessels: no JVD Extremities: no edema Gastrointestinal (Abdomen): normal bowel sounds, soft, nontender, no hepatosplenomegaly Neurologic: PERRL, EOMI, accommodation nl, no face palsy, no dysarthria Results & Data ([facility]) Vital Signs (Past 12 Hours) Vital Signs Temp Pulse Pulse Resp BP Pulse Ox 11/08/21 09:30 36.7 C 62 16 145/58 H 96 11/08/21 09:07 65 145/50 H 11/08/21 07:32 56 L 11/08/21 05:45 150/82 H 11/08/21 04:13 36.6 C 59 L 14 164/59 H 95 11/07/21 23:26 36.7 C 61 16 159/57 H 94 Laboratory Results Laboratory Results - last 24 hr 11/07/21 11/07/21 11/07/21 09:58 11:08 16:26 Sodium 133 L Potassium 4.4 Chloride 102 Carbon Dioxide 22 Anion Gap 9 BUN 43 H Creatinine 1.90 H D Est Cr Clr Drug Dosing 23.2 Est GFR ( Amer) 27.0 Est GFR (Non-Af Amer) 23.3 BUN/Creatinine Ratio 22.6 H Glucose 214 H POC Glucose 206 H 150 H Calcium 9.5 11/07/21 11/08/21 11/08/21 21:36 06:34 07:46 Sodium Potassium Chloride Carbon Dioxide Anion Gap BUN Creatinine 1.96 H Est Cr Clr Drug Dosing 22.8 Est GFR ( Amer) 26.0 Est GFR (Non-Af Amer) 22.4 BUN/Creatinine Ratio Glucose POC Glucose 131 H 143 H Calcium
--- NOTE | 2021-11-08 11:50 | Discharge Summary ---
Date of Service November 08, 2021 Admission HPI Per Admitting Provider 86 yo female with h/o HTN, DM-2, CKD who presented to the ED with hypertensive urgency. Patient is from [place] and moved here [address] Bauman. Last visit 10/16. Multiple medications were adjusted including her blood pressure medications and diabetic medications. Did not check her BP in between as asymptomatic. This morning, after breakfast around 11 am, she had a frontal headache along with worsening head fogginess (had foggy head since Covid last year but worse. She took her BP as she was not feeling very well and her BP monitor would not read. EMS was called and her BP was in 230s for EMS. In the ED, BP in 190s-230s. Labs, EKG and CT reviewed. No neurological symptoms or deficits. Denies any chest pain, lightheadedness dizziness. States she did take her lisinopril and toprol this morning. Her BP was in 230s during my encounter even after iv labetalol but she was comfortable and neurologically intact. She was asking for food and drink. States she is to get echo and renal US as OP and requested to be done here. Admission Exam Per Admitting Provider General: Sitting comfortably in bed, not in distress, on room air HEENT: EOMI, ANABEL, MMM Chest: Clear breath sounds bilaterally, no wheezes or crackles CVS: Regular rate and rhythm, normal heart sounds, no murmur Abdomen: Soft, non tender, not distended, normal bowel sounds Neuro: Awake, alert, oriented, conversing well, non focal Extremities: No cyanosis, clubbing or edema Principal Diagnosis Hypertensive urgency Carotid artery stenosis, right Elevated troponin Acute on chronic kidney disease III Discharge Exam Constitutional + well hydrated; no acute distress Eyes PERRL, conjunctivae normal, anicteric sclerae ENMT external ear and nose normal, oropharynx normal Respiratory normal respiratory effort, lungs clear to auscultation Cardiovascular Rate/Rhythm: regular rate and regular rhythm S1 S2 Gastrointestinal (Abdomen) normal bowel sounds, soft, nontender, no hepatosplenomegaly Musculoskeletal no cyanosis or clubbing, extremities motor strength 5/5 Neurologic PERRL, EOMI, accommodation nl, no face palsy, no dysarthria Psychiatric A+Ox3, euthymic affect Discharge Data Allergies Allergy/AdvReac Type Severity Reaction Status Date / Time latex Allergy Unknown Unknown Unverified 10/31/21 16:22 Penicillins Allergy Unknown Unknown Unverified 10/31/21 16:22 Sulfa (Sulfonamide Allergy Unknown Unknown Unverified 10/31/21 16:22 Antibiotics) Consultations 10/31/21 17:55 ED Decision to Admit Stat 10/31/21 19:24 Consult Vascular Surgery Routine 11/01/21 10:42 Consult Cardiology Routine 11/06/21 08:54 Consult Neurology Routine 11/08/21 07:51 Consult Nephrology Routine Ordered Studies 10/31/21 16:07 CT head/brain wo con Stat No acute intracranial hemorrhage, midline shift or mass effect is present. The ventricular system is unremarkable. The basal cisterns are patent. No extra- axial collections are present. There are no findings to suggest acute dural sinus thrombosis or acute territorial infarct. No significant calvarial abnormalities are present. Visualized portions of the sinuses and mastoid air cells are clear. IMPRESSION: No acute intracranial findings. 10/31/21 16:08 CT angio head w con Stat Vascular findings: There is normal enhancement within the internal carotid arteries bilaterally. There is normal enhancement noted within the anterior, middle and posterior cerebral arteries. Nonvascular findings: There is homogeneous attenuation of the brain parenchyma bilaterally. There is no evidence for an acute infarct or cerebral edema. IMPRESSION: Negative CT angiogram of the brain with contrast. CT angio neck with con Stat Visualized portions of lung apices are clear. No acute cervical spine fracture is noted. There is no cervical lymphadenopathy. Note is made of extensive calcified and not opacified plaque within the right carotid bifurcation. This results in a 70-80% stenosis of the proximal right internal carotid artery. Vessel measures approximately .7 mm in caliber at site of stenosis and 4 mm distally. The stenosis extends for approximately 5 mm in craniocaudal dimension. This plaque results in mild stenosis of the proximal right external carotid artery. No additional stenoses are identified within the bilateral common carotid or cervical internal carotid artery. There is moderate plaque within the left carotid bifurcation without stenosis. Bilateral cervical portions of the vertebral arteries are patent. There is plaque at the origin of the left vertebral artery without stenosis. There is no dissection within the neck. There is no aneurysm within the neck. IMPRESSION: 1. Extensive plaque within the right carotid bifurcation which results in 70-80% stenosis of the proximal right internal carotid artery. 2. No additional stenoses within the bilateral common carotid, cervical internal carotid or vertebral arteries. 11/01/21 US duplex renal artery Routine There is moderate bilateral renal cortical thinning. The right kidney measured 9.9 cm in length and the left measured 11.5 cm. There is no hydronephrosis. Peak systolic velocity within the abdominal aorta was 163 cm/s. Maximal velocity within the left renal artery was within its proximal aspect, with a peak systolic velocity of 239 cm/s. The left renal to aortic ratio was 1.47. Systolic upstrokes within the segmental vessels of the left kidney were within normal limits. Peak systolic velocity within the right renal artery was 113 cm/s. Delayed systolic upstrokes within the segmental vessels of the right kidney were noted. IMPRESSION: 1. Mildly elevated velocities within the left renal artery with without significant increase in renal to aortic ratio. Normal segmental waveforms within the left kidney. These findings are equivocal for left-sided renal artery stenosis. A CTA of the abdomen could be obtained for further evaluation. 2. Normal velocities within the right renal artery however delayed upstrokes within the segmental vessels raise the possibility of an upstream stenosis. This can be assessed on CTA 11/06/21 11:45 CT head/brain wo con Urgent No acute intracranial hemorrhage, midline shift or mass effect is present. White matter hypodensities favor small vessel disease. The ventricular system is unremarkable. The basal cisterns are patent. No extra-axial collections are present. There are no findings to suggest acute dural sinus thrombosis or acute territorial infarct. No significant calvarial abnormalities are present. Visualized portions of the sinuses and mastoid air cells are clear. IMPRESSION: No acute intracranial findings. 11/06/21 16:27 MR brain wo con Urgent Brain parenchyma: There is age-related involutional change noting minimal microangiopathic disease. There is no hemorrhage or mass effect. There is no restricted diffusion typical for acute ischemia. Motta-white matter differentiation is preserved. No extra-axial fluid collection is seen. The cerebellar tonsils are normal in configuration. Ventricles, sulci, and cisterns: Prominent secondary to involutional change. Pituitary and sella: Partially empty sella is incidentally noted. Intracranial vasculature: Normal flow voids are maintained at the skull base. Orbits: The bony orbits are grossly intact. Orbital contents are normal in appearance noting bilateral ocular lens implants. Sinuses and mastoids: There is trace mucosal thickening, fluid, and a 1.4 cm retention cyst in the left maxillary antrum. Mild mucosal thickening is noted within the right ethmoid sinus. The remaining paranasal sinuses are clear. The mastoid air cells are well pneumatized. Calvarium: Unremarkable. Cervical cord: Partially visualized cervical spinal cord is normal in morphology and signal intensity. IMPRESSION: No acute intracranial abnormality. Diabetes Follow up Diabetes Follow-up Needed for HgbA1c >9% Hospital Course (1) Hypertensive urgency: (2) Carotid artery stenosis: (3) Diabetes mellitus with kidney complication, without long-term current use of insulin: Patient presented with elevated blood pressure of 213/111 with report of Frontal headache and fogginess. Patient was started on nicardipine drip to titrate blood pressure control. Patient was also comanaged with cardiology. Blood pressure was difficult to control over time requiring multiple medication adjustments. Patient's echocardiogram showed normal EF with no wall motion abnormalities. Renal artery duplex showed findings equivocal for left-sided renal artery stenosis. Troponin was mildly elevated likely due to demand ischemia. Patient to continue lisinopril 20 mg twice daily, metoprolol succinate 100 mg daily. Was started on hydralazine 50 mg every 8 hours and verapamil 180 mg every afternoon. Patient to follow-up with cardiology outpatient for close monitoring and continued management CT head on presentation was negative for any acute finding. While inpatient. Had few episodes of word finding difficulty which prompted evaluation to rule out CVA CT angio head and neck showed extensive plaque within the right carotid bifurcation with 70 to 80% stenosis of proximal right internal carotid artery. CT head and MRI brain were negative for any acute findings. Patient was ev aluated by neurology as well as vascular surgery. Vascular surgery recommended outpatient follow-up. They will call patient for follow-up and repeat imaging in 6 months. Patient was started on Zoloft for anxiety. This was continued on discharge. Patient has CKD 3. Patient creatinine increased over time. 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 Patient home diuretic Lasix was discontinued for now. Patient to get BMP in 3 days (on thursday11/11/21) and follow up result with PCP Due to current renal function, patient's home glimepiride was reduced to 2 mg daily and Jardiance reduced to 10 mg daily. 7 day dose of jardiance sent to her pharm. Patient to follow up with PCP on 11/13/21 who will review lab results and adjust meds as needed. Patient advised to keep home BP and blood glucose log. Continue home eyedrops Total Time Total Time Spent Total Time Spent (In Minutes): 50 Total Time Includes: Examination of the Patient, Discharge Planning, Medication Reconciliation, Communication With Other Providers and Other (Updated PCP) Discharge Plan Discharge Items Patient Disposition: Home - Self-Care Reason For Visit: HTNSIVE URGENCY Discharge Diagnosis: Hypertensive urgency Carotid artery stenosis, right Elevated troponin Acute on chronic kidney disease III Activity: Resume your previous activity Non-emergency contact: Primary Care Provider, Sales Assistant Institutional Sales and [employer] 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 ) Dalila Bauman MD [Primary Care Provider] - (Date & Time 11/13/2021 4:00 PM Provider Dalila Bauman MD Department General Internal Medicine [facility] ) Pan Witt MD [Physician] - ( Carotid scheduled at Dr. Witt's office on Thursday05/12/22 at 3:00 pm. Please arrive to the office at 2:45 pm for your appointment. Please follow up with Dr. Witt on Thursday05/19/22 at 1:15 pm. Please arrive to the office at 1:00 pm for your appointment. If you are unable to keep these appointments, please call the office to reschedule at [phone].) Diet: Carb Consistent or DM2, Heart Healthy and Low Sodium (2gm) Ambulatory Orders: Basic Metabolic Panel (Routine) Timeframe: 20211111 Location: Determined by Patient Ordered By: Merari Barajas Attending Provider Instructions: Mrs Urrutia You came to the hospital due to elevated blood pressure. You had some headache on presentation. Your blood pressure was significantly elevated and required adjustments to achieve better control. You also had some neurological symptoms during your stay that necessitated further evaluation but you did not have any stroke. You do have a narrowing of one of the blood vessel supplying your brain which was evaluated by the Vascular surgeon. The Vascular surgeon will call you to make appointment in the future for follow up and you will need repeat imaging in about 6 months. You were started on zoloft to help with anxiety. You were started on hydralazine and verapamil for better blood pressure control. Please do the blood test called BMP (Basic metabolic panel) on thursday and follow up the result with your Primary Doctor. PLEASE STOP TAKING FUROSEMIDE FOR NOW UNTIL FOLLOW UP WITH YOUR PRIMARY DOCTOR AND TAPROOM ATTENDANT. Your glimepiride was reduced to 2mg daily and jardiance changed to 10mg daily dose for now due to your renal function until blood test on thursday. These can be resumed once lab work next week show improved renal function Please follow up with Nephrology for management of your Chronic kidney disease. It was a pleasure taking care of you. Pending Studies at Discharge: No Stand-Alone Forms: My [facility], Smoking Cessation Medications and DC Order Prescriptions: New verapamil 180 mg Tablet Extended Release 180 mg PO QPM Qty: 30 RF: 0 hydralazine 50 mg Tablet 50 mg PO Q8 Qty: 90 RF: 0 Jardiance 10 mg tablet 10 mg PO DAILY Qty: 7 RF: 0 sertraline 50 mg Tablet 25 mg PO QAM Qty: 30 RF: 0 Continued atorvastatin 40 mg Tablet 40 mg PO HS RF: 0 metformin 500 mg Tablet 1,000 mg PO HS RF: 0 repaglinide 2 mg Tablet 2 mg PO AC RF: 0 lisinopril 20 mg Tablet 20 mg PO BID RF: 0 metoprolol succinate 100 mg Tablet Extended Release 24 Hr 100 mg PO QAM RF: 0 cyanocobalamin (vitamin B-12) [Vitamin B-12] 1,000 mcg Tablet 1,000 mcg PO 3XWK RF: 0 aspirin 81 mg Tablet,Delayed Release (Dr/Ec) 81 mg PO QAM RF: 0 acetaminophen 500 mg Tablet 1,000 mg PO Q8H PRN (Reason: Pain) RF: 0 glimepiride 2 mg Tablet 2 mg PO DAILYBB RF: 0 ginkgo biloba 40 mg Tablet 40 mg PO BID RF: 0 triamcinolone acetonide 0.025 % Cream 1 applic TOPICAL BID RF: 0 coQ10 (ubiquinol) 100 mg Capsule 100 mg PO QAM RF: 0 Macular Degeneration Capsules 4 cap PO QAM RF: 0 Discontinued glimepiride 4 mg Tablet 4 mg PO DAILYBB RF: 0 furosemide [Lasix] 20 mg Tablet 20 mg PO 3XWK RF: 0 Refresh Classic (PF) 1.4-0.6 % Dropperette 1 drp OPB BID RF: 0 Jardiance 25 mg Tablet 25 mg PO QAM RF: 0 Discharge Orders: Discharge Order (Routine); Ordered 11/08/21 Ordered By: Merari Warner/Other Patient Handouts: Managing Type 2 Diabetes Admission Data Admit Date/Time: 10/31/21 19:21 Attending Provider: Merari Segura I. Admit Provider: Francisco Iverson Primary Care Provider: Dalila Bauman Other Providers: Pan Witt ; Francisco Iverson ; Dread Waller ; Martinez Lazaro ; Wiliam Schroeder ; Chavo Billy ; Phuc Louis ; Duane Montejo ; May Gipson ; Kari Tellez ; Mayra Barbour ; Cortes Acosta ; Kari Freedman ; Zak Currie ; Cornel Smith Other Interventions: Discharge Summary Assessment (RN) Last Done: 11/08/21 13:28
--- NOTE | 2021-11-08 21:25 | Consultation Report ---
NEPHROLOGY CONSULTATION NOTE DATE OF SERVICE: 11/08/2021 REASON FOR CONSULTATION: Acute renal failure on background CKD with hypertensive urgency. HISTORY OF PRESENT ILLNESS: The patient is an 86-year-old female who was admitted to the hospital ab out a week ago because of frontal headaches, fogginess and hypertensive urgency. She was found to vega ve a blood pressure in the 200s in the Emergency Department. She has been seen by cardiology for the last few days and blood pressure ____ been adjusted, but even now her blood pressure is high. I hav e been consulted for acute on chronic renal failure, creatinine is 1.96. At the time of admission, i t was 1.25, but since then has gone up. She is making urine. Currently on lisinopril, metoprolol, v erapamil, hydralazine for hypertension management. She was on Lasix, but that has since been stopped . She is supposed to be discharged home today. ALLERGIES: ALLERGY LIST REVIEWED. MEDICATIONS: Home medication list was reviewed in detail. PAST MEDICAL AND SURGICAL HISTORY: Type 2 diabetes, hypertension, cataract surgery. SOCIAL HISTORY: Never smoked. No alcohol. She lives alone in her home in an apartment and is able to do all of her cooking and basic cleaning. REVIEW OF SYSTEMS: Twelve systems reviewed and otherwise negative. She no longer has headache. PHYSICAL EXAMINATION: GENERAL: Elderly white female who actually looks younger than her stated age. She is awake, alert, oriented x3. VITAL SIGNS: Most recent vital signs show a blood pressure of 177/61, pulse rate 67, temperature 36. 4, and 94% on room air. HEENT: Mucous membrane is moist. NECK: Supple. No jugular venous distention. CHEST: Bilaterally clear to auscultation. CARDIOVASCULAR: S1 and S2, regular rate and rhythm. Normal heart sounds. No murmur. ABDOMEN: Soft, nontender. EXTREMITIES: Show no edema. LABORATORY TEST: Blood work from today shows a creatinine of 1.96, yesterday it was 1.90. On admissi on, which was 7 days ago, it was 1.25. Chest x-ray done at the time of admission was unremarkable. A renal artery duplex was also done. There was not any obvious clearcut renal artery stenosis. Hemog lobin 12.4, platelet count 280. ASSESSMENT AND PLAN: An 86-year-old female with hypertensive urgency, admitted with symptoms, which could be related with hypertensive urgency. She has developed mild acute renal failure on background chronic kidney disease III, for which I have been consulted. Acute renal failure on background chronic kidney disease: This is most likely hemodynamic given that patient has significant change in her blood pressure, multiple medications have been added/escalated. Even a rapid decline of blood pressure from very high readings to normal readings can cause hemodyn amic issue, especially in an 86-year-old. I do not think we need to do a detailed workup for acute r enal failure. She is supposed to be discharged today anyway. She is supposed to have blood work don e next week through cardiology. If there is further rise in creatinine, the patient can be seen in t nephrology clinic. I reviewed all the medications that she was going to be discharged on. As per the note, Lasix and spironolactone will be on hold, but she will be getting lisinopril as well as ot her medication. Hypertension management is being addressed by cardiology. Job ID: [id number]
== END 2021-11-08 15:10 | disposition home or self-care (01) | DRG 305 ==
LOC: ED 13:27 → SUATTDRO 19:21 → 2E 19:21

== ENCOUNTER 2021-12-16 14:40 | Inpatient (IN) ==
[2021-12-16] MEDS ORDERED: ACETAMINOPHEN 500 MG TAB PO STA (15:31)
[2021-12-16] MEDS ORDERED: LABETALOL HCL IV 5 MG/ML 20ML IV STA ×2 (15:31→19:12)
--- NOTE | 2021-12-16 15:35 | Emergency Department Note ---
Impression & Plan Hypertensive urgency, Headache, Tingling ED Provider Note NAME: BERNARD TRAN AGE: 86 SEX: F : 1935 ARRIVES VIA: Ambulance INFORMANT: [Patient] ED PROVIDER(S): [Tyler Gaines MD] CHIEF COMPLAINT: Hypertension HISTORY OF PRESENT ILLNESS: The patient is an 86-year-old female presents to the ER with about 4 hours of tingling all over her body and a feeling of uneasiness. She took her blood pressure and it was quite high. Too high to even register on her machine. She spoke with her doctors office who referred her to the ER via 911. The patient denies chest pain or dyspnea. She does have a moderate headache. She just feels uneasy. This same exact presentation occurred about a month ago when her blood pressure was too high, she was admitted to the hospital with medication adjustments. She is on her medications as prescribed, she has not missed any medications. REVIEW OF SYSTEMS: See HPI for pertinent positives and negatives. A total of ten systems were reviewed and were otherwise negative. PMHx/PSHx: See Below SOCIAL HISTORY: See Below. PHYSICAL EXAM: GENERAL: Patient is in no acute distress. HEENT: No acute trauma, normocephalic atraumatic, mucous membranes moist, no nasal congestion, no scleral icterus. NECK: No stridor, no adenopathy, no meningismus, trachea is midline. LUNGS: Clear to auscultation bilaterally, no wheeze, no rhonchi, breath sounds equal. HEART: Without murmurs gallops or rubs, regular rate and rhythm. ABDOMEN: Soft, nontender, bowel sounds positive, no peritonitis. EXTREMITIES: No cyanosis or edema, full range of motion of all the joints without pain or difficulty, no signs for acute trauma. NEUROLOGIC: Oriented x 3, no acute motor or sensory deficits, no focal weakness. SKIN: No rash, no jaundice, no diaphoresis. DIFFERENTIAL DIAGNOSIS: Infection, dehydration, metabolic abnormality, hypo/hyperglycemia, electrolyte disturbance, renal failure, missed medication, anemia, hypoxia, cardiac sources, intracerebral event, hypertensive urgency, as well as other pathologies. EMERGENCY DEPARTMENT COURSE/PROCEDURES: ECG: Indication was hypertension. The ECG shows a normal sinus rhythm with a rate of 64. There is no ST elevation. There is some nonspecific ST change. No PVCs. The QTc is 410. Continuous Cardiac Monitoring: An order was placed for continuous cardiac monitoring. The monitor shows a rate of 68 with normal sinus rhythm. MEDICAL DECISION MAKING: There is no leukocytosis or concerning anemia. There is a normal platelet count. There is some renal insufficiency but this appears to be a chronic issue. No electrolyte abnormality in need of emergent correction. No con cerning liver enzyme elevation. No evidence for thyroid dysfunction. ECG shows a normal sinus rhythm, no obvious ischemia. Cardiac enzyme testing x1 is not consistent with acute cardiac injury. COVID test returned negative. On exam, there were no focal neurologic findings. The patient presents with a high blood pressure and some body tingling. She had a mild headache. The patient received IV Ativan for some anxiety. She was given IV labetalol, she received a second dose of IV labetalol. She was given IV hydralazine and oral Tylenol. The patient's blood pressure is somewhat better, she seems to be resting comfortably. The patient is on 4 medications for her blood pressure. She presents with a high pressure and has required numerous doses of IV medications here in the ED to bring the pressure down. I do think a hospital stay and medication adjustment is warranted. I spoke with the patient and case management. The on-call hospitalist was consulted. Past Med/Surg History Medical History DM2 (diabetes mellitus, type 2) H/O: HTN (hypertension) Surgical History Hx of cataract surgery Social History Smoking Status: Never smoker Second Hand Exposure: Yes; Hx Alcohol Use: Yes Alcohol type: wine Hx Substance Use: No Preferred Language: Greek Communication Ability: Effective Physician Office Clin Asst Required: No Beliefs That Will Affect Care: None Current Living Situation: Alone Feels Safe at Home: Yes Assistive Devices: Walker Allergies Allergies Allergy/AdvReac Type Severity Reaction Status Date / Time latex Allergy Unknown Unknown Unverified 12/16/21 17:57 Penicillins Allergy Unknown Unknown Unverified 12/16/21 17:57 Sulfa (Sulfonamide Allergy Unknown Unknown Unverified 12/16/21 17:57 Antibiotics) Home Meds Home Medications Medication Instructions Recorded Confirmed acetaminophen 500 mg tablet 1,000 mg PO Q8H PRN 10/31/21 12/16/21 aspirin 81 mg tablet,delayed 81 mg PO QAM 10/31/21 12/16/21 release atorvastatin 40 mg tablet 40 mg PO HS 10/31/21 12/16/21 coQ10 (ubiquinol) 100 mg capsule 100 mg PO QAM 10/31/21 12/16/21 cyanocobalamin (vitamin B-12) 1,000 mcg PO 3XWK 10/31/21 12/16/21 1,000 mcg tablet (Vitamin B-12) ginkgo biloba 40 mg tablet 40 mg PO BID 10/31/21 12/16/21 lisinopril 20 mg tablet 20 mg PO BID 10/31/21 12/16/21 metoprolol succinate 100 mg 100 mg PO QAM 10/31/21 12/16/21 tablet,extended release 24 hr repaglinide 2 mg tablet 2 mg PO AC 10/31/21 12/16/21 triamcinolone acetonide 0.025 % 1 applic TOPICAL BID 10/31/21 12/16/21 topical cream famotidine 20 mg tablet 20 mg PO BID 12/16/21 12/16/21 linagliptin 5 mg tablet (Tradjenta) 5 mg PO DAILY 12/16/21 12/16/21 loratadine 10 mg tablet 10 mg PO HS 12/16/21 12/16/21 Previous Rx's Medication Instructions Recorded empagliflozin 10 mg tablet 10 mg PO DAILY #7 tab 11/08/21 (Jardiance) hydralazine 50 mg tablet 50 mg PO Q8 #90 tab 11/08/21 sertraline 50 mg tablet 25 mg PO QAM #30 tab 11/08/21 verapamil 180 mg tablet,extended 180 mg PO QPM #30 tab 11/08/21 release Results & Data (ED) Vital Signs Vital Signs - 24 hr 12/16/21 14:33 12/16/21 14:48 12/16/21 17:18 Temperature 37.2 C Temperature Source Oral Pulse Rate 68 Pulse Rate [Apical] 68 64 Pulse Rhythm [Apical] Regular Respiratory Rate 18 18 18 Respiratory Depth Normal Blood Pressure 219/82 H Blood Pressure [Left Arm] 219/82 H 185/77 H Blood Pressure Mean 127 Blood Pressure Mean [Left Arm] 127 113 Blood Pressure Position [Left Arm] Sitting Pulse Oximetry 97 97 95 Oxygen Delivery Method Room Air Room Air Sepsis Recent Fever Within 48 Hours No Sepsis New/Unexplained Change in Mental Status No Sepsis Action Taken by Nursing No Action Required 12/16/21 19:00 12/16/21 19:10 12/16/21 19:20 Temperature Temperature Source Pulse Rate 63 67 67 Pulse Rate [Apical] Pulse Rhythm [Apical] Respiratory Rate 15 16 17 Respiratory Depth Blood Pressure Blood Pressure [Left Arm] Blood Pressure Mean Blood Pressure Mean [Left Arm] Blood Pressure Position [Left Arm] Pulse Oximetry 94 96 96 Oxygen Delivery Method Room Air Room Air Room Air Sepsis Recent Fever Within 48 Hours Sepsis New/Unexplained Change in Mental Status Sepsis Action Taken by Nursing 12/16/21 19:30 12/16/21 19:40 12/16/21 19:41 Temperature Temperature Source Pulse Rate 60 62 Pulse Rate [Apical] Pulse Rhythm [Apical] Respiratory Rate 15 16 Respiratory Depth Blood Pressure 200/103 H Blood Pressure [Left Arm] Blood Pressure Mean 135 Blood Pressure Mean [Left Arm] Blood Pressure Position [Left Arm] Pulse Oximetry 96 96 96 Oxygen Delivery Method Room Air Room Air Room Air Sepsis Recent Fever Within 48 Hours Sepsis New/Unexplained Change in Mental Status Sepsis Action Taken by Nursing 12/16/21 19:50 12/16/21 20:00 12/16/21 20:10 Temperature Temperature Source Pulse Rate 64 64 59 L Pulse Rate [Apical] Pulse Rhythm [Apical] Respiratory Rate 14 15 13 Respiratory Depth Blood Pressure Blood Pressure [Left Arm] Blood Pressure Mean Blood Pressure Mean [Left Arm] Blood Pressure Position [Left Arm] Pulse Oximetry 96 96 95 Oxygen Delivery Method Room Air Room Air Room Air Sepsis Recent Fever Within 48 Hours Sepsis New/Unexplained Change in Mental Status Sepsis Action Taken by Nursing 12/16/21 20:20 12/16/21 20:30 12/16/21 20:34 Temperature Temperature Source Pulse Rate 57 L 55 L 55 L Pulse Rate [Apical] Pulse Rhythm [Apical] Respiratory Rate 16 20 19 Respiratory Depth Blood Pressure 149/56 H Blood Pressure [Left Arm] Blood Pressure Mean 87 Blood Pressure Mean [Left Arm] Blood Pressure Position [Left Arm] Pulse Oximetry 95 94 95 Oxygen Delivery Method Room Air Room Air Room Air Sepsis Recent Fever Within 48 Hours Sepsis New/Unexplained Change in Mental Status Sepsis Action Taken by Nursing 12/16/21 20:40 12/16/21 20:45 12/16/21 20:50 Temperature Temperature Source Pulse Rate 60 60 64 Pulse Rate [Apical] Pulse Rhythm [Apical] Respiratory Rate 14 15 18 Respiratory Depth Blood Pressure 178/74 H Blood Pressure [Left Arm] Blood Pressure Mean 108 Blood Pressure Mean [Left Arm] Blood Pressure Position [Left Arm] Pulse Oximetry 96 96 96 Oxygen Delivery Method Room Air Room Air Room Air Sepsis Recent Fever Within 48 Hours Sepsis New/Unexplained Change in Mental Status Sepsis Action Taken by Nursing 12/16/21 21:00 12/16/21 21:10 12/16/21 21:15 Temperature Temperature Source Pulse Rate 62 66 63 Pulse Rate [Apical] Pulse Rhythm [Apical] Respiratory Rate 13 21 18 Respiratory Depth Blood Pressure 206/78 H 215/74 H Blood Pressure [Left Arm] Blood Pressure Mean 120 121 Blood Pressure Mean [Left Arm] Blood Pressure Position [Left Arm] Pulse Oximetry 96 96 96 Oxygen Delivery Method Room Air Room Air Room Air Sepsis Recent Fever Within 48 Hours Sepsis New/Unexplained Change in Mental Status Sepsis Action Taken by Nursing 12/16/21 21:20 Temperature Temperature Source Pulse Rate 63 Pulse Rate [Apical] Pulse Rhythm [Apical] Respiratory Rate 14 Respiratory Depth Blood Pressure Blood Pressure [Left Arm] Blood Pressure Mean Blood Pressure Mean [Left Arm] Blood Pressure Position [Left Arm] Pulse Oximetry 96 Oxygen Delivery Method Room Air Sepsis Recent Fever Within 48 Hours Sepsis New/Unexplained Change in Mental Status Sepsis Action Taken by Group Home Medications Current Medication List: was personally reviewed by me Laboratory Data Attestation: I reviewed the patient's lab results. Result diagrams: 12/16/21 15:00 12/16/21 18:12 Lab Results 12/16/21 12/16/21 12/16/21 Range/Units 15:00 15:00 15:00 WBC 8.92 (4.8-10.8) K/uL RBC 4.08 L (4.2-5.4) M/uL Hgb 12.8 (12.0-16.0) g/dL Hct 39.1 (37-47) % MCV 95.8 (80-100) fL MCH 31.4 (25-34) pg MCHC 32.7 (32-36) g/dL RDW Std Deviation 48.3 H (36.4-46.3) fL RDW Coeff of Rojelio 13.8 (11.5-14.5) % Plt Count 336 (130-400) K/uL MPV 10.8 H (7.4-10.4) fL Immature Gran % (Auto) 0.2 % Neut % (Auto) 65.6 % Lymph % (Auto) 22.2 % [place] % (Auto) 10.9 % Eos % (Auto) 0.8 % Baso % (Auto) 0.3 % Neut # (Auto) 5.85 (1.4-6.5) K/uL Lymph # (Auto) 1.98 (1.2-3.4) K/uL [place] # (Auto) 0.97 H (0.11-0.59) K/uL Eos # (Auto) 0.07 (0-0.5) K/uL Baso # (Auto) 0.03 (0-0.2) K/uL Immature Gran # (Auto) 0.02 (0.00-0.02) K/uL Sodium 134 L (136-145) mmol/L Potassium TNP Chloride 102 (98-107) mmol/L Carbon Dioxide 21 (21-32) mmol/L Anion Gap 11 (3-11) BUN 23 (6-23) mg/dl Creatinine 1.34 H (0.6-1.2) mg/dl Est Cr Clr Drug Dosing 32.6 ml/min Est GFR ( Amer) 41.2 ml/min Est GFR (Non-Af Amer) 35.5 ml/min BUN/Creatinine Ratio 17.2 (10-20) Glucose 242 H (70-99(Fasting)) mg/dl Calcium 10.0 (8.5-10.1) mg/dl Magnesium 1.7 (1.7-2.4) mg/dl Total Bilirubin 0.5 (0.2-1.0) mg/dl AST TNP ALT 21 (7-52) U/L Alkaline Phosphatase 37 (34-104) U/L Troponin I High Sens 10.6 (0-14) pg/ml Total Protein 8.1 (6.0-8.3) gm/dl Albumin 4.5 (3.4-5.0) gm/dl Globulin 3.6 (2.5-4.0) gm/dl Albumin/Globulin Ratio 1.3 (0.9-2) TSH 2.300 (0.300-4.500) uIu/ml SARS-CoV-2, RNA, NAAT (NEGATIVE) 12/16/21 12/16/21 Range/Units 18:12 Unknown WBC (4.8-10.8) K/uL RBC (4.2-5.4) M/uL Hgb (12.0-16.0) g/dL Hct (37-47) % MCV (80-100) fL MCH (25-34) pg MCHC (32-36) g/dL RDW Std Deviation (36.4-46.3) fL RDW Coeff of Rojelio (11.5-14.5) % Plt Count (130-400) K/uL MPV (7.4-10.4) fL Immature Gran % (Auto) % Neut % (Auto) % Lymph % (Auto) % [place] % (Auto) % Eos % (Auto) % Baso % (Auto) % Neut # (Auto) (1.4-6.5) K/uL Lymph # (Auto) (1.2-3.4) K/uL [place] # (Auto) (0.11-0.59) K/uL Eos # (Auto) (0-0.5) K/uL Baso # (Auto) (0-0.2) K/uL Immature Gran # (Auto) (0.00-0.02) K/uL Sodium (136-145) mmol/L Potassium 3.7 Chloride (98-107) mmol/L Carbon Dioxide (21-32) mmol/L Anion Gap (3-11) BUN (6-23) mg/dl Creatinine (0.6-1.2) mg/dl Est Cr Clr Drug Dosing ml/min Est GFR ( Amer) ml/min Est GFR (Non-Af Amer) ml/min BUN/Creatinine Ratio (10-20) Glucose (70-99(Fasting)) mg/dl Calcium (8.5-10.1) mg/dl Magnesium (1.7-2.4) mg/dl Total Bilirubin (0.2-1.0) mg/dl AST 18 ALT (7-52) U/L Alkaline Phosphatase (34-104) U/L Troponin I High Sens (0-14) pg/ml Total Protein (6.0-8.3) gm/dl Albumin (3.4-5.0) gm/dl Globulin (2.5-4.0) gm/dl Albumin/Globulin Ratio (0.9-2) TSH (0.300-4.500) uIu/ml SARS-CoV-2, RNA, NAAT NEGATIVE (NEGATIVE) Administered Medications Discontinued Medications Acetaminophen (Acetaminophen 500 Mg Tab) 1,000 mg PO NOW STA Stop: 12/16/21 15:32 Last Admin: 12/16/21 15:44 Dose: 1,000 mg Documented by: [id number] Hydralazine HCl (Hydralazine Hcl 20 Mg/Ml Vial) 10 mg IV NOW STA Stop: 12/16/21 16:41 Last Admin: 12/16/21 16:58 Dose: 10 mg Documented by: [id number] Labetalol HCl (Labetalol Hcl Iv 5 Mg/Ml 20ml) 10 mg IV NOW STA Stop: 12/16/21 15:32 Last Admin: 12/16/21 15:44 Dose: 10 mg Documented by: [id number] Cosigned by: [id number] Labetalol HCl (Labetalol Hcl Iv 5 Mg/Ml 20ml) 10 mg IV NOW STA Stop: 12/16/21 19:13 Last Admin: 12/16/21 19:42 Dose: 10 mg Documented by: [id number] Cosigned by: [id number] Lorazepam (Lorazepam 2 Mg/1 Ml Vial) 0.5 mg IV NOW STA; Protocol Stop: 12/16/21 17:09 Last Admin: 12/16/21 17:23 Dose: 0.5 mg Documented by: [id number] Discharge Plan Visit Data Chief Complaint: Hypertension Stated Complaint: H/A ED Provider: Tyler Gaines Discharge Problem: Hypertensive urgency, Headache, Tingling Patient Disposition: Admitted As Inpatient Condition: Fair Forms Stand Alone Forms: My [facility] Prescriptions Prescriptions: No Action atorvastatin 40 mg Tablet 40 mg PO HS RF: 0 repaglinide 2 mg Tablet 2 mg PO AC RF: 0 lisinopril 20 mg Tablet 20 mg PO BID RF: 0 metoprolol succinate 100 mg Tablet Extended Release 24 Hr 100 mg PO QAM RF: 0 cyanocobalamin (vitamin B-12) [Vitamin B-12] 1,000 mcg Tablet 1,000 mcg PO 3XWK RF: 0 aspirin 81 mg Tablet,Delayed Release (Dr/Ec) 81 mg PO QAM RF: 0 acetaminophen 500 mg Tablet 1,000 mg PO Q8H PRN (Reason: Pain) RF: 0 ginkgo biloba 40 mg Tablet 40 mg PO BID RF: 0 triamcinolone acetonide 0.025 % Cream 1 applic TOPICAL BID RF: 0 coQ10 (ubiquinol) 100 mg Capsule 100 mg PO QAM RF: 0 verapamil 180 mg Tablet Extended Release 180 mg PO QPM Qty: 30 RF: 0 hydralazine 50 mg Tablet 50 mg PO Q8 Qty: 90 RF: 0 Jardiance 10 mg tablet 10 mg PO DAILY Qty: 7 RF: 0 sertraline 50 mg Tablet 25 mg PO QAM Qty: 30 RF: 0 famotidine 20 mg tablet 20 mg PO BID RF: 0 loratadine 10 mg tablet 10 mg PO HS RF: 0 Tradjenta 5 mg tablet 5 mg PO DAILY RF: 0 Referrals Referrals: Dalila Bauman MD [Primary Care Provider] -
[2021-12-16 16:02] LABS: Basophils # (auto) 0.03 K/uL (0-0.2); Basophils % (auto) 0.3 %; Eosinophils # (auto) 0.07 K/uL (0-0.5); Eosinophils % (auto) 0.8 %; Hematocrit (blood only) 39.1 % (37-47); Hemoglobin 12.8 g/dL (12.0-16.0); Immature Granulocytes # (auto) 0.02 K/uL (0.00-0.02); Immature Granulocytes % (auto) 0.2 %; Lymphocytes # (auto) 1.98 K/uL (1.2-3.4); Lymphocytes % (auto) 22.2 %; Mean Corpuscular Hemoglobin 31.4 pg (25-34); Mean Corpuscular Hgb Conc 32.7 g/dL (32-36); Mean Corpuscular Volume 95.8 fL (80-100); Mean Platelet Volume 10.8 fL (7.4-10.4); Monocytes # (auto) 0.97 K/uL (0.11-0.59); Monocytes % (auto) 10.9 %; Neutrophils # (auto) 5.85 K/uL (1.4-6.5); Neutrophils % (auto) 65.6 %; Platelet Count 336 K/uL (130-400); RDW Coefficient of Variation 13.8 % (11.5-14.5); RDW Standard Deviation 48.3 fL (36.4-46.3); Red Blood Count 4.08 M/uL (4.2-5.4); White Blood Count 8.92 K/uL (4.8-10.8)
[2021-12-16 16:25] LABS: Troponin I High Sensitivity 10.6 pg/ml (0-14)
[2021-12-16] MEDS ORDERED: hydrALAZINE HCL 20 MG/ML VIAL IV STA (16:40)
[2021-12-16] MEDS ORDERED: LORazepam 2 MG/1 ML VIAL IV STA (17:08)
[2021-12-16 17:13] LABS: Alanine Aminotransferase 21 U/L (7-52); Albumin Globulin Ratio 1.3 (0.9-2); Albumin Level 4.5 gm/dl (3.4-5.0); Alkaline Phosphatase 37 U/L (34-104); Anion Gap 11 (3-11); BUN Creatinine Ratio 17.2 (10-20); Bilirubin,Total 0.5 mg/dl (0.2-1.0); Blood Urea Nitrogen 23 mg/dl (6-23); Carbon Dioxide 21 mmol/L (21-32); Chloride 102 mmol/L (98-107); Creatinine Clr Calc Pharmacy 32.6 ml/min; Est GFR (African American) 41.2 ml/min; Est GFR (Non-African American) 35.5 ml/min; Globulin 3.6 gm/dl (2.5-4.0); Glucose 242 mg/dl (70-99(Fasting)); Magnesium 1.7 mg/dl (1.7-2.4); Sodium 134 mmol/L (136-145); Total Protein 8.1 gm/dl (6.0-8.3)
--- NOTE | 2021-12-16 18:41 | Electrocardiogram Report ---
Test Reason : Blood Pressure : / mmHG Vent. Rate : 064 BPM Atrial Rate : 064 BPM P-R Int : 206 ms QRS Dur : 076 ms QT Int : 398 ms P-R-T Axes : 026 018 088 degrees QTc Int : 410 ms Poor data quality, interpretation may be adversely affected Normal sinus rhythm When compared with ECG of 01-NOV-2021 10:34, QT has shortened Confirmed by Jaya Burrell ([id number]) on 12/16/2021 6:41:22 PM Referred By: ED Confirmed By:Jamil Burrell
[2021-12-16 19:03] LABS: Potassium 3.7 mmol/L (3.5-5.1)
[2021-12-16] MEDS: NITROGLYCERIN 2% OINTMENT 30GM TUBE EXT SCH (22:52)
--- NOTE | 2021-12-17 01:08 | History and Physical Report ---
DATE OF ADMISSION: 12/16/2021. CHIEF COMPLAINT: Hypertensive urgency. HISTORY OF PRESENT ILLNESS: This is an 86-year-old female with past medical history significant for hypertension, type 2 diabetes, chronic kidney disease, history of hypercalcemia, history of renal artery stenosis, right carotid stenosis, B12 deficiency, depression, history of COVID-19, who presents with elevated blood pressure. The patient was recently in the hospital and was discharged on 11/08/2021 with a similar hypertensive urgency, at that time seen by neurology and cardiology. Her Lasix was stopped as she was having JOSE. She is on 4 different kinds of high blood pressure medications. She says she checked her blood pressure regularly, it was running in the 160s last week. She did not go to the appointments because of transport issues, because she has vertigo and her daughter was worried that she may fall down. She lives alone, ambulates with a walker. Daughter lives close by. Today when she woke up, she felt tingliness all over the body. When checked the blood pressure, it was very high, more than 200s, that was why she came here. In ER blood pressure in 200s, she had received two doses of IV labetalol and one dose of hydralazine, still it is significantly high. She says when the blood pressure was high, she had some right-sided chest discomfort. When blood pressure was coming down, the chest pain improved. Denies any shortness of breath. Has headache today with the high blood pressure. No dizziness. Her vision is not that great. No earache, no runny nose, no sore throat. Appetite is okay. No difficulty swallowing. No shortness of breath. No nausea, no abdominal pain. Normal bowel and bladder movements. ALLERGIES: LATEX, PENICILLIN, SULFA ANTIBIOTICS. PAST MEDICAL HISTORY: As mentioned above. PAST SURGICAL HISTORY: Bilateral cataract surgery. MEDICATIONS: The patient is on Tylenol 1000 mg p.o. 8 hours p.r.n., aspirin 81 mg p.o. a.m., atorvastatin 40 mg p.o. at bedtime, Coenzyme Q10 100 mg p.o. a.m., vitamin B12 1000 mcg p.o. 3 times a week, Jardiance 10 mg p.o. daily, famotidine 20 mg p.o. b.i.d., Ginkgo Biloba 40 mg p.o. b.i.d., hydralazine 50 mg p.o. t.i.d., Tradjenta 5 mg p.o. daily, lisinopril 20 mg p.o. b.i.d., loratadine 10 mg p.o. at bedtime, metoprolol succinate 100 mg p.o. a.m., repaglinide 2 mg p.o. a.c., sertraline 25 mg p.o. a.m., triamcinolone 1 application topical b.i.d., verapamil 180 mg p.o. q.p.m. FAMILY HISTORY: Significant for family history on file. SOCIAL HISTORY: , currently lives alone. Daughter lives close by. No smoking. two standard drinks alcohol per week. No drug use. REVIEW OF SYSTEMS: As per HPI. Rest of review of systems is negative. PHYSICAL EXAMINATION: GENERAL: The patient is old and frail, not in acute distress. VITAL SIGNS: Temperature 37.2, pulse 66, respiratory rate 14, blood pressure 215/74, oxygen 96% on room air. HEENT: Pupils equal, round and reactive to light. Oral mucosa moist. NECK: No JVD, no neck masses. CARDIOVASCULAR: S1 and S2 heard, regular rate and rhythm. No murmur, no gallop. RESPIRATORY SYSTEM: Normal AP diameter. No accessory muscle use. No wheezing, no crackles. ABDOMEN: Soft. Bowel sounds are present, nontender, no distention. CENTRAL NERVOUS SYSTEM: Cranial nerves II-XII grossly intact, nonfocal. EXTREMITIES: No edema, no erythema. LABORATORY DATA: WBC 8.9, hemoglobin 12.8, hematocrit 39.1, platelets 336. Sodium 134, potassium 3.7, chloride 102, bicarbonate 21, BUN 23, creatinine 1.34, serum glucose 242, calcium 10, magnesium 1.7, total bilirubin 0.5, AST 18, ALT 21, alkaline phosphatase 37. Troponin 1 high sensitivity 10.6. TSH is 2.3. SARS-CoV-2 rapid test negative. EKG DATA: Normal sinus rhythm at a rate of 64, no acute ST changes seen. ASSESSMENT AND PLAN: This is an 86-year-old female who presents with hypertensive urgency. 1. Hypertensive urgency: She had previous admissions with similar problem. Currently on hydralazine 50 mg p.o. t.i.d., lisinopril 20 mg p.o. b.i.d., metoprolol succinate 100 mg p.o. a.m., verapamil 180 mg p.o. p.m. Currently received hydralazine and labetalol in ER.Placed on nitro paste 1 inch q. [address] on IV labetalol p.r.n. Will closely monitor in the tele floor. Consult cardiology in the a.m. for further adjustment of the medications. 2. History of diabetes: Hold her home p.o. medications. Will place on Lantus 6 units b.i.d., insulin sliding scale. Follow the blood sugars. 3. Gastroesophageal reflux disease: Continue Pepcid. 4. Hyperlipidemia: Continue statin. 5. History of carotid artery stenosis, history of left-sided renal artery stenosis: Needs followup. Looks like seen by neurology and vascular surgery at last admission and recommended outpatient followup. It looks like she did not follow up. 6. Anxiety: On Zoloft. 7. Chronic kidney disease stage III: Presently with creatinine of 1.3, seems to be around baseline. 8. Deep venous thrombosis prophylaxis: Will place on heparin subQ. DISPOSITION: Closely monitor in the tele floor. Level 1 full code. PT/OT prior to discharge. Social service to help with discharge planning. Job ID: [id number] MTDD
[2021-12-17] MEDS ORDERED: POLYETHYLENE (MIRALAX) 17 GM PACK PO PRN (01:23)
[2021-12-17] MEDS ORDERED: NITROGLYCERIN SL 0.4 MG/TAB TAB SL PRN (01:23)
[2021-12-17] MEDS ORDERED: LABETALOL HCL IV 5 MG/ML 20ML IV PRN (01:23)
[2021-12-17] MEDS: lisinopril 20 MG TAB PO SCH ×3 (03:11→21:39)
[2021-12-17] MEDS: NITROGLYCERIN 2% OINTMENT 30GM TUBE EXT SCH ×2 (03:36→08:50)
[2021-12-17] MEDS ORDERED: hydrALAZINE TAB 50 MG TAB PO SCH (06:00)
[2021-12-17] MEDS: TRIAMCINOLONE ACET 0.025% CR 15 GM TUBE TOP SCH ×2 (08:38→21:41)
[2021-12-17] MEDS: METOPROLOL SUCC 50MG EXT REL TAB PO SCH (08:40)
[2021-12-17] MEDS: SERTRALINE HCL 50 MG TABLET PO SCH (08:41)
[2021-12-17] MEDS: FAMOTIDINE 20 MG TAB PO SCH (08:41)
[2021-12-17] MEDS: ASPIRIN 81 MG ECTAB PO SCH (08:42)
[2021-12-17] MEDS: HEPARIN SOD 5,000 UNIT/0.5 ML VIAL SQ SCH ×2 (08:50→21:38)
[2021-12-17] MEDS ORDERED: NON-FORMULARY MEDICATION (Coq10 (Ubiquinol) 100 mg Capsule) PO SCH (09:00)
[2021-12-17] MEDS ORDERED: FAMOTIDINE 20 MG TAB PO SCH (09:00)
[2021-12-17] MEDS: INSULIN GLARGINE SOLOSTAR 100 UNITS/ML 3 ML PEN SC SCH ×2 (09:30→21:57)
[2021-12-17] MEDS: INSULIN ASPART PER UNIT SC SCH ×4 (09:30→21:26)
[2021-12-17 10:28] LABS: Appearance Urine Clear (Clear); Bacteria Urine Automated Negative (Negative); Bilirubin Urine Negative (Negative); Blood Urine Negative (Negative); Cast Urine Automated 0 /lpf (0-5); Color Urine Yellow; Epithelial Cell Urine Auto 0-5 /lpf (0-5); Glucose Urine UA 3+ (Negative); Ketones Urine Negative (Negative); Leukocyte Esterase Urine Negative (Negative); Nitrite Urine Negative (Negative); Protein Urine 2+ (Negative); RBC Urine Automated 0-4 /hpf (0-4); Specific Gravity Urine 1.017 (1.000-1.030); Urobilinogen Urine Negative (Negative); pH Urine 5.5 (4.5-7.5)
--- NOTE | 2021-12-17 12:55 | Hospitalist Progress Note ---
Date of Service December 17, 2021 Assessment & Plan (1) Hypertensive urgency: Plan: Patient was recently hospitalized and managed for hypertensive urgency and had evaluation with multiple antihypertensive adjustment at that time. Reports adherence to medicines Continue verapamil, hydralazine, lisinopril, metoprolol. Monitor blood pressure Will appreciate cardiology's evaluation with respect to difficulty controlling blood pressure (2) Diabetes mellitus with kidney complication, without long-term current use of insulin: Plan: Hold home oral antidiabetic's Insulin sliding scale while inpatient (3) Anxiety: Plan: Continue home Zoloft (4) CKD (chronic kidney disease) stage 3, GFR 30-59 ml/min: Plan: Monitor renal function Avoid nephrotoxins (5) DVT prophylaxis: Plan: Heparin subcu Admission and Anticipated Discharge Date Admission Date: December 16, 2021 Subjective Patient seen and examined Reported some sort of headache yesterday which is resolved. Denies any dizziness Denies any nausea today. Reported some yesterday when her blood pressure was significantly elevated at home. Denies chest pain, cough, shortness of breath Denies vomiting, abdominal pain, diarrhea Denies dysuria, frequency, urgency, incontinence Denies fevers or chills Physical Exam Constitutional: + well hydrated and + obese; no acute distress Eyes: PERRL, conjunctivae normal, anicteric sclerae ENMT: external ear and nose normal, oropharynx normal Respiratory: normal respiratory effort, lungs clear to auscultation Cardiovascular: Rate/Rhythm: regular rate and regular rhythm S1 S2 Gastrointestinal (Abdomen): normal bowel sounds, soft, nontender, no hepatosplenomegaly Musculoskeletal: No pedal edema Neurologic: PERRL, EOMI, accommodation nl, no face palsy, no dysarthria Psychiatric: A+Ox3, euthymic affect Results & Data Results & Data ([facility]) Vital Signs (Past 12 Hours) Vital Signs Temp Pulse Pulse Pulse Resp BP Pulse Ox 12/17/21 11:10 36.7 C 68 18 193/69 H 98 12/17/21 08:31 96 H 69 16 179/71 H 96 12/17/21 07:14 73 12/17/21 03:12 36.5 C 68 16 181/72 H 96 12/17/21 03:01 57 L 12/17/21 02:39 36.8 C 56 L 16 205/79 H 97 Laboratory Results Abnormal lab results 12/16/21 12/16/21 12/17/21 Range/Units 15:00 15:00 08:37 RBC 4.08 L (4.2-5.4) M/uL RDW Std Deviation 48.3 H (36.4-46.3) fL MPV 10.8 H (7.4-10.4) fL [place] # (Auto) 0.97 H (0.11-0.59) K/uL Sodium 134 L (136-145) mmol/L Creatinine 1.34 H (0.6-1.2) mg/dl Glucose 242 H (70-99(Fasting)) mg/dl POC Glucose 235 H (70-99) mg/dl Urine Protein (Negative) Urine Glucose (UA) (Negative) 12/17/21 12/17/21 Range/Units 10:00 11:22 RBC (4.2-5.4) M/uL RDW Std Deviation (36.4-46.3) fL MPV (7.4-10.4) fL [place] # (Auto) (0.11-0.59) K/uL Sodium (136-145) mmol/L Creatinine (0.6-1.2) mg/dl Glucose (70-99(Fasting)) mg/dl POC Glucose 173 H (70-99) mg/dl Urine Protein 2+ H (Negative) Urine Glucose (UA) 3+ H (Negative)
--- NOTE | 2021-12-17 13:16 | Cardiology Consultation ---
Date of Consultation December 17, 2021 Assessment & Plan (1) Hypertensive urgency: (2) CKD (chronic kidney disease) stage 3, GFR 30-59 ml/min: 86-year-old female with longstanding hypertension and past hypertensive urgency presents now once again with hypertensive urgency sense of mild tingling but no acute neurologic complaints. Blood pressures have improved since hospitalization Plan: We will increase antihypertensive regimen. Will increase hydralazine to 50 mg 4 times per day (may dose with meals and bedtime on discharge). We will add oral nitrates given good response in hospital to topical nitro paste History of Present Illness Reason for Consultation: Hypertensive urgency Requesting Physician: Merari Segura MD Attending Physician: Merari Segura MD History of Present Illness Patient is an 86-year-old female whose ongoing issues include 1. Longstanding hypertension with past hypertensive urgency 2. CKD stage III 3. Type 2 diabetes mellitus 4. Atherosclerotic carotid disease Patient was last hospitalized in late October 2021 with hypertensive urgency, symptomatic. Medications adjusted in hospital with course notable for transient renal insufficiency and discontinuation of diuretic therapy. Notes difficulty making outpatient appointments but has been compliant with medications. Yesterday awakened having sensation of tingling all over and checked blood pressures and noted spiraling higher blood pressures each time she checked. She was referred to the ER presenting with marked hypertension she was treated with IV labetalol and hydralazine and topical nitrates. Feels improved this morning. No chest pains, shortness of breath, tachypalpitations. No fevers chills or unexplained infections. No abdominal pain or discomfort. Allergies Allergy/AdvReac Type Severity Reaction Status Date / Time latex Allergy Unknown Unknown Unverified 12/16/21 17:57 Penicillins Allergy Unknown Unknown Unverified 12/16/21 17:57 Sulfa (Sulfonamide Allergy Unknown Unknown Unverified 12/16/21 17:57 Antibiotics) Home Medications Medication Instructions Recorded Confirmed Type acetaminophen 500 mg tablet 1,000 mg PO Q8H PRN 10/31/21 12/16/21 History aspirin 81 mg tablet,delayed 81 mg PO QAM 10/31/21 12/16/21 History release atorvastatin 40 mg tablet 40 mg PO HS 10/31/21 12/16/21 History coQ10 (ubiquinol) 100 mg capsule 100 mg PO QAM 10/31/21 12/16/21 History cyanocobalamin (vitamin B-12) 1,000 mcg PO 3XWK 10/31/21 12/16/21 History 1,000 mcg tablet (Vitamin B-12) ginkgo biloba 40 mg tablet 40 mg PO BID 10/31/21 12/16/21 History lisinopril 20 mg tablet 20 mg PO BID 10/31/21 12/16/21 History metoprolol succinate 100 mg 100 mg PO QAM 10/31/21 12/16/21 History tablet,extended release 24 hr repaglinide 2 mg tablet 2 mg PO AC 10/31/21 12/16/21 History triamcinolone acetonide 0.025 % 1 applic TOPICAL BID 10/31/21 12/16/21 History topical cream empagliflozin 10 mg tablet 10 mg PO DAILY #7 tab 11/08/21 12/16/21 Rx (Jardiance) hydralazine 50 mg tablet 50 mg PO Q8 #90 tab 11/08/21 12/16/21 Rx sertraline 50 mg tablet 25 mg PO QAM #30 tab 11/08/21 12/16/21 Rx verapamil 180 mg tablet,extended 180 mg PO QPM #30 tab 11/08/21 12/16/21 Rx release famotidine 20 mg tablet 20 mg PO BID 12/16/21 12/16/21 History linagliptin 5 mg tablet (Tradjenta) 5 mg PO DAILY 12/16/21 12/16/21 History loratadine 10 mg tablet 10 mg PO HS 12/16/21 12/16/21 History Patient History Medical History DM2 (diabetes mellitus, type 2) H/O: HTN (hypertension) Surgical History Hx of cataract surgery Social History Smoking Status: Never smoker Second Hand Exposure: Yes; Hx Alcohol Use: Yes Alcohol type: beer and wine Hx Substance Use: No Preferred Language: Welsh Communication Ability: Effective Field Scout Required: No Beliefs That Will Affect Care: None marital status: / Current Living Situation: Alone Other Information That Helps Us Care for You: No Feels Safe at Home: Yes Safety Concerns: Feels Safe At This Time Assistive Devices: Walker Review of Systems Review of Systems: All systems reviewed & are unremarkable except as noted in HPI & below Physical Exam Constitutional: WD/WN, vitals as above Eyes: PERRL, conjunctivae normal, anicteric sclerae ENMT: external ear and nose normal, oropharynx normal Neck: trachea midline, no thyromegaly Respiratory: normal respiratory effort, lungs clear to auscultation Cardiovascular: Rate/Rhythm: regular rate and regular rhythm Heart Sounds: normal S1 and normal S2 Vessels: no JVD and no carotid bruit Extremities: no edema Gastrointestinal (Abdomen): normal bowel sounds, soft, nontender, no hepatosplenomegaly Musculoskeletal: no cyanosis or clubbing, extremities motor strength 5/5 Results & Data ([facility]) Vital Signs (Past 12 Hours) Vital Signs Temp Pulse Pulse Pulse Resp BP Pulse Ox 12/17/21 12:53 166/74 H 12/17/21 11:10 36.7 C 68 18 193/69 H 98 12/17/21 08:31 96 H 69 16 179/71 H 96 12/17/21 07:14 73 12/17/21 03:12 36.5 C 68 16 181/72 H 96 12/17/21 03:01 57 L 12/17/21 02:39 36.8 C 56 L 16 205/79 H 97 Laboratory Results Laboratory Results - last 24 hr 12/16/21 12/16/21 12/16/21 15:00 15:00 15:00 WBC 8.92 RBC 4.08 L Hgb 12.8 Hct 39.1 MCV 95.8 MCH 31.4 MCHC 32.7 RDW Std Deviation 48.3 H RDW Coeff of Rojelio 13.8 Plt Count 336 MPV 10.8 H Immature Gran % (Auto) 0.2 Neut % (Auto) 65.6 Lymph % (Auto) 22.2 Centre % (Auto) 10.9 Eos % (Auto) 0.8 Baso % (Auto) 0.3 Neut # (Auto) 5.85 Lymph # (Auto) 1.98 Centre # (Auto) 0.97 H Eos # (Auto) 0.07 Baso # (Auto) 0.03 Immature Gran # (Auto) 0.02 Sodium 134 L Potassium TNP Chloride 102 Carbon Dioxide 21 Anion Gap 11 BUN 23 Creatinine 1.34 H Est Cr Clr Drug Dosing 32.6 Est GFR ( Amer) 41.2 Est GFR (Non-Af Amer) 35.5 BUN/Creatinine Ratio 17.2 Glucose 242 H POC Glucose Calcium 10.0 Magnesium 1.7 Total Bilirubin 0.5 AST TNP ALT 21 Alkaline Phosphatase 37 Troponin I High Sens 10.6 Total Protein 8.1 Albumin 4.5 Globulin 3.6 Albumin/Globulin Ratio 1.3 TSH 2.300 Urine Color Urine Appearance Urine pH Ur Specific [place] Urine Protein Urine Glucose (UA) Urine Ketones Urine Blood Urine Nitrite Urine Bilirubin Urine Urobilinogen Ur Leukocyte Esterase Urine WBC (Auto) Urine RBC (Auto) U Hyaline Cast (Auto) U Epithel Cells (Auto) Urine Bacteria (Auto) SARS-CoV-2, RNA, NAAT 12/16/21 12/16/21 12/17/21 18:12 Unknown 08:37 WBC RBC Hgb Hct MCV MCH MCHC RDW Std Deviation RDW Coeff of Rojelio Plt Count MPV Immature Gran % (Auto) Neut % (Auto) Lymph % (Auto) Centre % (Auto) Eos % (Auto) Baso % (Auto) Neut # (Auto) Lymph # (Auto) Centre # (Auto) Eos # (Auto) Baso # (Auto) Immature Gran # (Auto) Sodium Potassium 3.7 Chloride Carbon Dioxide Anion Gap BUN Creatinine Est Cr Clr Drug Dosing Est GFR ( Amer) Est GFR (Non-Af Amer) BUN/Creatinine Ratio Glucose POC Glucose 235 H Calcium Magnesium Total Bilirubin AST 18 ALT Alkaline Phosphatase Troponin I High Sens Total Protein Albumin Globulin Albumin/Globulin Ratio TSH Urine Color Urine Appearance Urine pH Ur Specific [place] Urine Protein Urine Glucose (UA) Urine Ketones Urine Blood Urine Nitrite Urine Bilirubin Urine Urobilinogen Ur Leukocyte Esterase Urine WBC (Auto) Urine RBC (Auto) U Hyaline Cast (Auto) U Epithel Cells (Auto) Urine Bacteria (Auto) SARS-CoV-2, RNA, NAAT NEGATIVE 12/17/21 12/17/21 10:00 11:22 WBC RBC Hgb Hct MCV MCH MCHC RDW Std Deviation RDW Coeff of Rojelio Plt Count MPV Immature Gran % (Auto) Neut % (Auto) Lymph % (Auto) Centre % (Auto) Eos % (Auto) Baso % (Auto) Neut # (Auto) Lymph # (Auto) Centre # (Auto) Eos # (Auto) Baso # (Auto) Immature Gran # (Auto) Sodium Potassium Chloride Carbon Dioxide Anion Gap BUN Creatinine Est Cr Clr Drug Dosing Est GFR ( Amer) Est GFR (Non-Af Amer) BUN/Creatinine Ratio Glucose POC Glucose 173 H Calcium Magnesium Total Bilirubin AST ALT Alkaline Phosphatase Troponin I High Sens Total Protein Albumin Globulin Albumin/Globulin Ratio TSH Urine Color Yellow Urine Appearance Clear Urine pH 5.5 Ur Specific [place] 1.017 Urine Protein 2+ H Urine Glucose (UA) 3+ H Urine Ketones Negative Urine Blood Negative Urine Nitrite Negative Urine Bilirubin Negative Urine Urobilinogen Negative Ur Leukocyte Esterase Negative Urine WBC (Auto) 1-5 Urine RBC (Auto) 0-4 U Hyaline Cast (Auto) 0 U Epithel Cells (Auto) 0-5 Urine Bacteria (Auto) Negative SARS-CoV-2, RNA, NAAT ECG Additional Comments: ID:[id number] 16-DEC-2021 14:51:07 Normal sinus rhythm When compared with ECG of 01-NOV-2021 10:34, QT has shortened, rate 64 bpm
[2021-12-17] MEDS: ISOSORBIDE DINITRATE 20 MG TAB PO SCH (17:28)
[2021-12-17] MEDS: hydrALAZINE TAB 50 MG TAB PO SCH ×2 (17:28→21:38)
[2021-12-17] MEDS: ATORVASTATIN 40 MG TAB PO SCH (21:37)
[2021-12-17] MEDS: VERAPAMIL HCL 180 MG TABCR PO SCH (21:41)
[2021-12-17] MEDS: LORATADINE 10 MG TAB PO SCH (21:42)
[2021-12-18] MEDS: ISOSORBIDE DINITRATE 20 MG TAB PO SCH ×3 (06:07→17:23)
[2021-12-18] MEDS: lisinopril 20 MG TAB PO SCH ×2 (08:24→20:35)
[2021-12-18] MEDS: SERTRALINE HCL 50 MG TABLET PO SCH (08:25)
[2021-12-18] MEDS: hydrALAZINE TAB 50 MG TAB PO SCH ×4 (08:25→21:23)
[2021-12-18] MEDS: METOPROLOL SUCC 50MG EXT REL TAB PO SCH (08:26)
[2021-12-18] MEDS: ASPIRIN 81 MG ECTAB PO SCH (08:26)
[2021-12-18] MEDS: FAMOTIDINE 20 MG TAB PO SCH (08:26)
[2021-12-18] MEDS: INSULIN ASPART PER UNIT SC SCH ×4 (08:27→21:24)
[2021-12-18] MEDS: HEPARIN SOD 5,000 UNIT/0.5 ML VIAL SQ SCH ×2 (08:28→20:32)
[2021-12-18] MEDS: TRIAMCINOLONE ACET 0.025% CR 15 GM TUBE TOP SCH ×2 (08:28→20:38)
[2021-12-18] MEDS: INSULIN GLARGINE SOLOSTAR 100 UNITS/ML 3 ML PEN SC SCH ×2 (08:28→21:25)
[2021-12-18] MEDS ORDERED: COVID-19 VACC, TRIS(PFIZER)/PF 30 MCG/0.3 ML VIAL IM ONE (13:00)
--- NOTE | 2021-12-18 15:14 | Cardiology Progress Note ---
Date of Service December 18, 2021 Assessment & Plan (1) Hypertensive urgency: (2) CKD (chronic kidney disease) stage 3, GFR 30-59 ml/min: Plan: 86-year-old female with longstanding hypertension and past hypertensive urgency presents now once again with hypertensive urgency sense of mild tingling but no acute neurologic complaints. Blood pressures have improved since hospitalization Plan: Blood pressure trending towards better control with increase hydralazine to 50 mg 4 times per day (may dose with meals and bedtime on discharge) and Isordil 20 3 times daily with room to increase Admission and Anticipated Discharge Date Admission Date: December 16, 2021 Subjective Patient seen and examined, chart, medications, telemetry reviewed. Blood pressure trending towards better control Feels well without complaint currently tolerating medication changes. Review of Systems Review of Systems: All systems reviewed & are unremarkable except as noted in Subjective Physical Exam Constitutional: WD/WN, vitals as above Eyes: PERRL, conjunctivae normal, anicteric sclerae ENMT: external ear and nose normal, oropharynx normal Neck: trachea midline, no thyromegaly Respiratory: normal respiratory effort, lungs clear to auscultation Cardiovascular: Rate/Rhythm: regular rate and regular rhythm Heart Sounds: normal S1 and normal S2 Vessels: no JVD and no carotid bruit Extremities: no edema Gastrointestinal (Abdomen): normal bowel sounds, soft, nontender, no hepatosplenomegaly Musculoskeletal: no cyanosis or clubbing, extremities motor strength 5/5 Results & Data ([facility]) Vital Signs (Past 12 Hours) Vital Signs Temp Pulse Resp BP Pulse Ox 12/18/21 11:35 36.6 C 64 18 185/79 H 96 12/18/21 07:35 36.8 C 70 18 148/69 H 94 Laboratory Results Laboratory Results - last 24 hr 12/17/21 12/17/21 12/18/21 16:12 20:53 07:31 POC Glucose 134 H 107 H 193 H 12/18/21 11:32 POC Glucose 116 H
[2021-12-18] MEDS: ACETAMINOPHEN 325 MG TAB PO PRN (20:30)
[2021-12-18] MEDS: ATORVASTATIN 40 MG TAB PO SCH (20:31)
[2021-12-18] MEDS: LORATADINE 10 MG TAB PO SCH (20:38)
[2021-12-18] MEDS: VERAPAMIL HCL 180 MG TABCR PO SCH (20:39)
[2021-12-18] MEDS ORDERED: CYANOCOBALAMIN (B-12) 500 MCG TABLET PO SCH (21:00)
--- NOTE | 2021-12-19 00:20 | Hospitalist Progress Note ---
Date of Service December 18, 2021 Assessment & Plan (1) Hypertensive urgency: Plan: Patient was recently hospitalized and managed for hypertensive urgency and had evaluation with multiple antihypertensive adjustment at that time. Reports adherence to medicines Continue verapamil, lisinopril, metoprolol. Hydralazine increased to 50mg QID Cardiology on board Continue monitor BP (2) Diabetes mellitus with kidney complication, without long-term current use of insulin: Plan: Hold home oral antidiabetic's Insulin sliding scale while inpatient (3) Anxiety: Plan: Continue home Zoloft (4) CKD (chronic kidney disease) stage 3, GFR 30-59 ml/min: Plan: Monitor renal function Avoid nephrotoxins (5) DVT prophylaxis: Plan: Heparin subcu Admission and Anticipated Discharge Date Admission Date: December 16, 2021 Subjective Pt was seen and examined for elevated BP Sitting in chair with no acute distress Pt said that she feels ok She is very anxious to go home because she does not want her BP elevates Denies any chest pain, palpitation, dizziness and SOB Review of Systems Review of Systems: All systems reviewed & are unremarkable except as noted in Subjective Physical Exam Physical Exam: General- No acute distress Head- atraumatic Eyes- PERRL, EOMI, ENT- oropharynx clear Neck- supple, no JVD Lungs- clear to auscultation Heart- regular rhythm; no murmur Abdomen- normal bowel sounds, soft, nontender Extremities- no calf tenderness Neuro- alert, oriented x 3; PERRL, EOMI; no facial palsy; no dysarthria Skin- warm & dry Results & Data Results & Data ([facility]) Vital Signs (Past 12 Hours) Vital Signs Temp Pulse Resp BP Pulse Ox 12/18/21 23:39 36.6 C 67 12 131/65 96 12/18/21 20:25 37 C 72 12 166/72 H 97 12/18/21 15:36 36.8 C 71 17 122/64 97
--- NOTE | 2021-12-19 08:19 | Cardiology Progress Note ---
Date of Service December 19, 2021 Assessment & Plan (1) Hypertensive urgency: (2) CKD (chronic kidney disease) stage 3, GFR 30-59 ml/min: Plan: 86-year-old female with longstanding hypertension and past hypertensive urgency presents now once again with hypertensive urgency sense of mild tingling but no acute neurologic complaints. Blood pressures have improved since hospitalization. Plan: Blood pressure trending towards better control with increase in hydralazin e to 50 mg 4 times per day (may dose with meals and bedtime on discharge) and Isordil 20mg 3 times daily with room to increase. Continue lisinopril 20 mg twice daily as well as verapamil 180 mg nightly at discharge. Case discussed with Dr. Ana Baird with discharge from a cardiology standpoint. Nursing and case management made aware- will anticipate the use of a wheelchair van. Admission and Anticipated Discharge Date Admission Date: December 16, 2021 Supervising Physician Co-Signing Physician Notes Patient seen and examined, chart, medications, telemetry reviewed. Full assessment as above. Patient improved and blood pressure trending towards better control. Patient asymptomatic and tolerating current medical therapies. Options of future treatments discussed in detail with patient. Will need cardiology, medicine follow-up in 3 to 4 weeks time Subjective 86-year-old female with longstanding hypertension and past hypertensive urgency presents now once again with hypertensive urgency sense of mild tingling but no acute neurologic complaints. BP improved over the last 24 hours. Tele: SR 1 AVB 80s Chart and tele reviewed. Patient seen and examined at bedside. Upon entrance into the room patient resting on the edge of the bed without concern. Stated that she was ready to get going home and she was feeling well this am. She does voice concerns regarding transportation- daughters are out of town at a and she is requesting to be provided transportation. Review of Systems Review of Systems: All systems reviewed & are unremarkable except as noted in HPI & below Physical Exam Constitutional: WD/WN, vitals as above Eyes: PERRL, conjunctivae normal, anicteric sclerae ENMT: external ear and nose normal, oropharynx normal Neck: trachea midline, no thyromegaly Respiratory: normal respiratory effort, lungs clear to auscultation Cardiovascular: Rate/Rhythm: regular rate and regular rhythm Heart Sounds: normal S1 and normal S2 Vessels: no JVD and no carotid bruit Extremities: no edema Gastrointestinal (Abdomen): normal bowel sounds, soft, nontender, no hepatosplenomegaly Musculoskeletal: no cyanosis or clubbing, extremities motor strength 5/5 Results & Data ([facility]) Vital Signs (Past 12 Hours) Vital Signs Temp Pulse Pulse Resp BP Pulse Ox 12/19/21 07:26 36.6 C 50 L 18 163/75 H 96 12/19/21 03:35 36.5 C 61 16 136/57 L 96 12/19/21 02:09 66 12/18/21 23:39 36.6 C 67 12 131/65 96 12/18/21 20:25 37 C 72 12 166/72 H 97 Laboratory Results Intake and Output 12/18/21 12/19/21 12/19/21 22:59 06:59 14:59 Intake Total 200 / 620 Balance 200 / 620 Intake: Oral 200 / 620 Other: # Unmeasured Voids 2 Weight 91.9 kg Weight Measurement Method Built in [facility]
[2021-12-19] MEDS: ASPIRIN 81 MG ECTAB PO SCH (08:39)
[2021-12-19] MEDS: ISOSORBIDE DINITRATE 20 MG TAB PO SCH ×2 (08:39→12:12)
[2021-12-19] MEDS: FAMOTIDINE 20 MG TAB PO SCH (08:39)
[2021-12-19] MEDS: hydrALAZINE TAB 50 MG TAB PO SCH ×2 (08:39→12:12)
[2021-12-19] MEDS: HEPARIN SOD 5,000 UNIT/0.5 ML VIAL SQ SCH (08:40)
[2021-12-19] MEDS: METOPROLOL SUCC 50MG EXT REL TAB PO SCH (08:40)
[2021-12-19] MEDS: lisinopril 20 MG TAB PO SCH (08:40)
[2021-12-19] MEDS: SERTRALINE HCL 50 MG TABLET PO SCH (08:41)
[2021-12-19] MEDS: TRIAMCINOLONE ACET 0.025% CR 15 GM TUBE TOP SCH (08:41)
[2021-12-19] MEDS: INSULIN GLARGINE SOLOSTAR 100 UNITS/ML 3 ML PEN SC SCH (08:43)
[2021-12-19] MEDS: INSULIN ASPART PER UNIT SC SCH ×2 (08:43→12:10)
[2021-12-19] MEDS: ACETAMINOPHEN 325 MG TAB PO PRN (08:48)
--- NOTE | 2021-12-19 13:53 | Discharge Summary ---
Date of Service December 19, 2021 Discharge Exam General- No acute distress Head- atraumatic Eyes- PERRL, EOMI, ENT- oropharynx clear Neck- supple, no JVD Lungs- clear to auscultation Heart- regular rhythm; no murmur Abdomen- normal bowel sounds, soft, nontender Extremities- no calf tenderness Neuro- alert, oriented x 3; PERRL, EOMI; no facial palsy; no dysarthria Skin- warm & dry Discharge Data Allergies Allergy/AdvReac Type Severity Reaction Status Date / Time latex Allergy Unknown Unknown Unverified 12/16/21 17:57 Penicillins Allergy Unknown Unknown Unverified 12/16/21 17:57 Sulfa (Sulfonamide Allergy Unknown Unknown Unverified 12/16/21 17:57 Antibiotics) Consultations 12/16/21 20:52 ED Decision to Admit Stat 12/17/21 01:23 Consult Cardiology Routine Hospital Course (1) Hypertensive urgency: Patient was recently hospitalized and managed for hypertensive urgency and had evaluation with multiple antihypertensive adjustment at that time. Reports adherence to medicines Continue verapamil, lisinopril, metoprolol. Hydralazine increased to 50mg QID Cardiology on board Continue monitor BP (2) Diabetes mellitus with kidney complication, without long-term current use of insulin: Hold home oral antidiabetic's Insulin sliding scale while inpatient (3) Anxiety: Continue home Zoloft (4) CKD (chronic kidney disease) stage 3, GFR 30-59 ml/min: Monitor renal function Avoid nephrotoxins (5) DVT prophylaxis: Heparin subcu Discharge Plan Discharge Items Reason For Visit: HTN Condition on Discharge: Fair Follow-up/Referrals: Dalila Bauman MD [Primary Care Provider] - (Date & Time 12/25/2021 11:00 AM Provider Francesco Thomas III, MD Department [facility] ) Medications and DC Order Prescriptions: No Action atorvastatin 40 mg Tablet 40 mg PO HS RF: 0 repaglinide 2 mg Tablet 2 mg PO AC RF: 0 lisinopril 20 mg Tablet 20 mg PO BID RF: 0 metoprolol succinate 100 mg Tablet Extended Release 24 Hr 100 mg PO QAM RF: 0 cyanocobalamin (vitamin B-12) [Vitamin B-12] 1,000 mcg Tablet 1,000 mcg PO 3XWK RF: 0 aspirin 81 mg Tablet,Delayed Release (Dr/Ec) 81 mg PO QAM RF: 0 acetaminophen 500 mg Tablet 1,000 mg PO Q8H PRN (Reason: Pain) RF: 0 ginkgo biloba 40 mg Tablet 40 mg PO BID RF: 0 triamcinolone acetonide 0.025 % Cream 1 applic TOPICAL BID RF: 0 coQ10 (ubiquinol) 100 mg Capsule 100 mg PO QAM RF: 0 verapamil 180 mg Tablet Extended Release 180 mg PO QPM Qty: 30 RF: 0 hydralazine 50 mg Tablet 50 mg PO Q8 Qty: 90 RF: 0 Jardiance 10 mg tablet 10 mg PO DAILY Qty: 7 RF: 0 sertraline 50 mg Tablet 25 mg PO QAM Qty: 30 RF: 0 famotidine 20 mg tablet 20 mg PO BID RF: 0 loratadine 10 mg tablet 10 mg PO HS RF: 0 Tradjenta 5 mg tablet 5 mg PO DAILY RF: 0 Admission Data Admit Date/Time: 12/16/21 22:13 Attending Provider: Shant Ji Admit Provider: Zak Currie Primary Care Provider: Dalila Bauman Other Providers: Zak Currie ; Dread Waller ; Martinez Lazaro ; Wiliam Schroeder ; Chavo Billy ; MissyPhuc garcia ; Duane Montejo ; May Gipson ; Kari Tellez ; Mayra Barbour ; Cortes Acosta ; Merari Segura I.
== END 2021-12-19 15:42 | disposition home or self-care (01) | DRG 305 ==
LOC: ED 14:40 → 2S 22:13 → SUATTDRO 22:13 → 2S 12-17 00:56

== ENCOUNTER 2022-09-02 17:43 | Inpatient (IN) ==
--- NOTE | 2022-09-02 17:50 | ED Triage Note ---
Date of Service September 02, 2022 History of Present Illness This patient was briefly evaluated while in triage. An abbreviated physical exam was performed. This patient is a 87-year-old Female who presents to the ED for evaluation of Sent by cards for abnormal labs from 1 and 2 days ago low sodium, high potassium feeling "wiped out and tired" no chest pain, no shortness of breath, no urinary symptoms, no diarrhea recent medication changes Physical Exam GENERAL: Elderly 87-year-old female in a wheelchair in no acute distress. CARDIOVASCULAR: RRR RESPIRATORY: CTA ABDOMEN: BS x 4. Nontender to palpation. Initial orders for labs and / or imaging were placed and patient was placed in the waiting area until a bed is available. Please see further documentation for the full ED course. MDM / Impression Impression Impression: Acute hyponatremia, Acute hyperglycemia, JOSE (acute kidney injury), Urinary tract infection Impression: Urinary tract infection Qualifiers: Urinary tract infection type: site unspecified Hematuria presence: without h ematuria Qualified Code(s): N39.0 - Urinary tract infection, site not specified
--- NOTE | 2022-09-02 20:36 | Emergency Department Note ---
Impression & Plan Acute hyponatremia, Acute hyperglycemia, JOSE (acute kidney injury), Urinary tract infection ED Provider Note NAME: BERNARD TRAN AGE: 87 SEX: F : 1935 ARRIVES VIA: Ambulance INFORMANT: Patient, ED PROVIDER(S): Juan Wild DO CHIEF COMPLAINT: Weakness HPI: The patient is an 87-year-old female who went to see her tree thinner today for routine follow-up. She has not been feeling well but she states that she did not feel necessarily sick. She recently got over an upper respiratory tract infection. She did take a COVID test which was negative. The patient denies having any nausea or vomiting. She was told to go to the emergency department for admission because of abnormal labs including elevation in her potassium and hyponatremia. ROS: See above HPI for pertinent positives & negatives. A total of 10 systems reviewed and were otherwise negative. PAST MEDICAL HISTORY: See Below PAST SURGICAL HISTORY: See Below FAMILY HISTORY: See Below SOCIAL HISTORY: See Below HOME MEDICATIONS: See Below ALLERGIES: See Below VITALS: See Below PHYSICAL EXAMINATION: GENERAL: Patient is awake alert in no acute distress patient is resting comfortably and showing no signs of anxiety EYES: The conjunctivae are clear. The pupils are round and reactive. EARS, NOSE, MOUTH AND THROAT: The nose is without any evidence of any deformity. NECK: The neck is nontender and supple. RESPIRATORY: Normal respiratory effort is noted there is no evidence of wheezing rhonchi or rales CARDIOVASCULAR: Regular rate and rhythm noted there no murmurs rubs or gallops normal S1 normal S2. GASTROINTESTINAL: The abdomen is soft. Abdomen is nontender. MUSCULOSKELETAL/EXTREMITIES: There is no evidence of gross deformity full range of motion is noted in the hips and shoulders. SKIN: There is no obvious evidence of any rash. There are no petechiae, pallor or cyanosis noted. NEUROLOGIC: Patient is awake alert and oriented x3 MEDICAL DECISION MAKING: The patient is an 87-year-old female who was sent to the emergency department for further evaluation. She was seen by her primary tree thinner today and had outpatient lab studies. She was found to have an elevation in her creatinine as well as hyponatremia elevated blood sugar and elevated potassium. Laboratory studies were repeated in the emergency department. Potassium within the normal range and her sodium had improved along with her glucose. She was treated with IV fluids as well as given her outpatient blood pressure medication. She was started on an antibiotic for presumed urinary tract infection noted on urinalysis. I discussed patient's laboratory and radiographic studies with her. I also discussed her condition with the on-call [facility] hospitalist. They have agreed to evaluate the patient in the emergency department for further management and disposition. Triage Nursing notes reviewed. Prior medical records reviewed Vital Signs: reviewed and remarkable for elevated blood pressure. Differential diagnosis: Infection, dehydration, metabolic abnormality, hypo/hyperglycemia, electrolyte disturbance, anemia, hypoxia, cardiac sources, intracerebral event, toxicologic, neurologic, as well as other pathologies. ER treatment provided: See below Diagnostics interpreted by me: ECG: EKG was obtained in the emergency department. My interpretation is sinus rhythm at [address] flattening was noted. High lateral ST segment abnormalities were noted. This was compared to a tracing from December 16, 2021. No specific changes were noted. Cardiac Monitoring: An order was placed for continuous cardiac monitoring. The monitor shows a rate of 65 bpm with sinus rhythm. Laboratory studies: As stated above and show below. Imaging studies: See below. Radiographic imaging was reviewed by myself Consultation(s): I discussed this case with Dr. Vickers [facility]. 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 Tender Required: No Beliefs That Will Affect Care: None marital status: / Current Living Situation: Alone Feels Safe at Home: Yes Assistive Devices: Walker Allergies Allergies Allergy/AdvReac Type Severity Reaction Status Date / Time latex Allergy Unknown Unknown Unverified 09/02/22 21:13 Penicillins Allergy Unknown Unknown Unverified 09/02/22 21:13 Sulfa (Sulfonamide Allergy Unknown Unknown Unverified 09/02/22 21:13 Antibiotics) Home Meds Home Medications Medication Instructions Recorded Confirmed acetaminophen 500 mg tablet 1,000 mg PO BID 10/31/21 09/02/22 aspirin 81 mg tablet,delayed 81 mg PO QAM 10/31/21 09/02/22 release coQ10 (ubiquinol) 100 mg capsule 100 mg PO QAM 10/31/21 09/02/22 cyanocobalamin (vitamin B-12) 1,000 mcg PO Q OTHER DAY 10/31/21 09/02/22 1,000 mcg tablet (Vitamin B-12) ginkgo biloba 40 mg tablet 40 mg PO BID 10/31/21 09/02/22 lisinopril 20 mg tablet 20 mg PO BID 10/31/21 09/02/22 metoprolol succinate 100 mg 100 mg PO QAM 10/31/21 09/02/22 tablet,extended release 24 hr repaglinide 2 mg tablet 2 mg PO AC 10/31/21 09/02/22 triamcinolone acetonide 0.025 % 1 applic topical BID 10/31/21 09/02/22 topical cream linagliptin 5 mg tablet (Tradjenta) 5 mg PO DAILY 12/16/21 09/02/22 loratadine 10 mg tablet 10 mg PO HS 12/16/21 09/02/22 atorvastatin 80 mg tablet 80 mg PO DAILY 09/02/22 09/02/22 empagliflozin 25 mg tablet 25 mg PO DAILY 09/02/22 09/02/22 (Jardiance) hydralazine 50 mg tablet 50 mg PO TID 09/02/22 09/02/22 Previous Rx's Medication Instructions Recorded sertraline 50 mg tablet 25 mg PO QAM #30 tabs 11/08/21 verapamil 180 mg tablet,extended 180 mg PO QPM #30 tabs 11/08/21 release isosorbide dinitrate 20 mg tablet 20 mg PO TID@0700,1200,1700 #90 12/19/21 tabs Results & Data (ED) Vital Signs Vital Signs - 24 hr 09/02/22 17:51 09/02/22 20:21 09/02/22 20:21 Temperature 36.3 C L Temperature Source Temporal Artery Scan Pulse Rate 72 65 Pulse Rate [Apical] 67 Pulse Rhythm [Apical] Regular Pulse Strength [Apical] Normal Respiratory Rate 20 16 Respiratory Effort / Characteristics Non-Labored Respiratory Depth Normal Respiratory Pattern Regular Blood Pressure 193/71 H Blood Pressure [Right Arm] 231/84 H Blood Pressure Mean 111 Blood Pressure Mean [Right Arm] 133 Blood Pressure Position [Right Arm] Lying Pulse Oximetry 94 97 Oxygen Delivery Method Room Air Room Air Sepsis Recent Fever Within 48 Hours No Sepsis New/Unexplained Change in Mental Status N/A Sepsis Action Taken by Nursing No Action Required Home Medications Current Medication List: was personally reviewed by me Laboratory Data Attestation: I reviewed the patient's lab results. 09/02/22 20:15 09/02/22 20:15 Lab Results 09/02/22 09/02/22 09/02/22 Range/Units 20:15 20:15 20:15 WBC 9.01 (4.8-10.8) K/ul RBC 3.89 L (4.20-5.40) M/uL Hgb 12.4 (12.0-16.0) g/dl Hct 37.6 (37.0-47.0) % MCV 96.7 (80.0-100.0) fL MCH 31.9 (25.0-34.0) pg MCHC 33.0 (32.0-36.0) g/dL RDW Std Deviation 41.5 (36.4-46.3) fL RDW Coeff of Rojelio 11.9 (11.5-14.5) % Plt Count 306 (130-400) K/uL MPV 10.5 (9.4-12.4) fL Immature Gran % (Auto) 0.2 % Neut % (Auto) 60.2 % Lymph % (Auto) 28.5 % [place] % (Auto) 9.2 % Eos % (Auto) 1.3 % Baso % (Auto) 0.6 % Neut # (Auto) 5.42 (1.40-6.50) K/uL Lymph # (Auto) 2.57 (1.2-3.4) K/uL [place] # (Auto) 0.83 H (0.11-0.59) K/uL Eos # (Auto) 0.12 (0-0.50) K/uL Baso # (Auto) 0.05 (0-0.2) K/uL Immature Gran # (Auto) 0.02 (0.01-0.20) K/uL VBG pH (7.36-7.41) VBG pCO2 (38-50) mmHg VBG pO2 mmHg VBG HCO3 mmol/L VBG O2 Saturation % VBG Base Excess mEq/L Sodium 131 L (136-145) mmol/L Potassium 4.6 (3.5-5.1) mmol/L Chloride 100 (98-107) mmol/L Carbon Dioxide 20 L (21-32) mmol/L Anion Gap 11 (3-11) BUN 43 H (6-23) mg/dl Creatinine 1.77 H (0.6-1.2) mg/dl Est Cr Clr Drug Dosing Not Reportable Est GFR ( Amer) 29.2 ml/min Est GFR (Non-Af Amer) 25.2 ml/min BUN/Creatinine Ratio 24.3 H (10-20) Glucose 336 H* (70-99(Fasting)) mg/dl Osmolality 306 H (280-300) mOsm/kg Calcium 10.5 H (8.5-10.1) mg/dl Phosphorus 4.2 (2.5-4.9) mg/dl Magnesium 1.8 (1.7-2.4) mg/dl Total Bilirubin 0.4 (0.2-1.0) mg/dl AST 16 (13-39) U/L ALT 19 (7-52) U/L Alkaline Phosphatase 54 (34-104) U/L Troponin I High Sens 11.7 (0-14) pg/ml Total Protein 8.5 H (6.0-8.3) gm/dl Albumin 4.6 (3.4-5.0) gm/dl Globulin 3.9 (2.5-4.0) gm/dl Albumin/Globulin Ratio 1.2 (0.9-2) Urine Color Urine Appearance (Clear) Urine pH (4.5-7.5) Ur Specific [place] (1.000-1.030) Urine Protein (Negative) Urine Glucose (UA) (Negative) Urine Ketones (Negative) Urine Blood (Negative) Urine Nitrite (Negative) Urine Bilirubin (Negative) Urine Urobilinogen (Negative) Ur Leukocyte Esterase (Negative) Urine WBC (Auto) (0-5) /hpf Urine RBC (Auto) (0-4) /hpf U Hyaline Cast (Auto) (0-5) /lpf U Epithel Cells (Auto) (0-5) /lpf Urine Bacteria (Auto) (Negative) Urine Osmolality (500-800) mOsm/kg Ur Random Sodium mmol/L SARS-CoV-2, RNA, NAAT (NEGATIVE) 09/02/22 09/02/22 09/02/22 Range/Units 20:21 20:21 20:21 WBC (4.8-10.8) K/ul RBC (4.20-5.40) M/uL Hgb (12.0-16.0) g/dl Hct (37.0-47.0) % MCV (80.0-100.0) fL MCH (25.0-34.0) pg MCHC (32.0-36.0) g/dL RDW Std Deviation (36.4-46.3) fL RDW Coeff of Rojelio (11.5-14.5) % Plt Count (130-400) K/uL MPV (9.4-12.4) fL Immature Gran % (Auto) % Neut % (Auto) % Lymph % (Auto) % [place] % (Auto) % Eos % (Auto) % Baso % (Auto) % Neut # (Auto) (1.40-6.50) K/uL Lymph # (Auto) (1.2-3.4) K/uL [place] # (Auto) (0.11-0.59) K/uL Eos # (Auto) (0-0.50) K/uL Baso # (Auto) (0-0.2) K/uL Immature Gran # (Auto) (0.01-0.20) K/uL VBG pH (7.36-7.41) VBG pCO2 (38-50) mmHg VBG pO2 mmHg VBG HCO3 mmol/L VBG O2 Saturation % VBG Base Excess mEq/L Sodium (136-145) mmol/L Potassium (3.5-5.1) mmol/L Chloride (98-107) mmol/L Carbon Dioxide (21-32) mmol/L Anion Gap (3-11) BUN (6-23) mg/dl Creatinine (0.6-1.2) mg/dl Est Cr Clr Drug Dosing Est GFR ( Amer) ml/min Est GFR (Non-Af Amer) ml/min BUN/Creatinine Ratio (10-20) Glucose (70-99(Fasting)) mg/dl Osmolality (280-300) mOsm/kg Calcium (8.5-10.1) mg/dl Phosphorus (2.5-4.9) mg/dl Magnesium (1.7-2.4) mg/dl Total Bilirubin (0.2-1.0) mg/dl AST (13-39) U/L ALT (7-52) U/L Alkaline Phosphatase (34-104) U/L Troponin I High Sens (0-14) pg/ml Total Protein (6.0-8.3) gm/dl Albumin (3.4-5.0) gm/dl Globulin (2.5-4.0) gm/dl Albumin/Globulin Ratio (0.9-2) Urine Color Yellow Urine Appearance Clear (Clear) Urine pH 5.0 (4.5-7.5) Ur Specific [place] 1.025 (1.000-1.030) Urine Protein 1+ H (Negative) Urine Glucose (UA) 3+ H (Negative) Urine Ketones Trace H (Negative) Urine Blood Negative (Negative) Urine Nitrite Negative (Negative) Urine Bilirubin Negative (Negative) Urine Urobilinogen Negative (Negative) Ur Leukocyte Esterase 1+ H (Negative) Urine WBC (Auto) >30 H (0-5) /hpf Urine RBC (Auto) 0-4 (0-4) /hpf U Hyaline Cast (Auto) 0 (0-5) /lpf U Epithel Cells (Auto) 5-10 H (0-5) /lpf Urine Bacteria (Auto) Negative (Negative) Urine Osmolality 563 (500-800) mOsm/kg Ur Random Sodium mmol/L SARS-CoV-2, RNA, NAAT NEGATIVE (NEGATIVE) 09/02/22 09/02/22 Range/Units 20:21 20:57 WBC (4.8-10.8) K/ul RBC (4.20-5.40) M/uL Hgb (12.0-16.0) g/dl Hct (37.0-47.0) % MCV (80.0-100.0) fL MCH (25.0-34.0) pg MCHC (32.0-36.0) g/dL RDW Std Deviation (36.4-46.3) fL RDW Coeff of Rojelio (11.5-14.5) % Plt Count (130-400) K/uL MPV (9.4-12.4) fL Immature Gran % (Auto) % Neut % (Auto) % Lymph % (Auto) % [place] % (Auto) % Eos % (Auto) % Baso % (Auto) % Neut # (Auto) (1.40-6.50) K/uL Lymph # (Auto) (1.2-3.4) K/uL [place] # (Auto) (0.11-0.59) K/uL Eos # (Auto) (0-0.50) K/uL Baso # (Auto) (0-0.2) K/uL Immature Gran # (Auto) (0.01-0.20) K/uL VBG pH 7.33 L (7.36-7.41) VBG pCO2 40 (38-50) mmHg VBG pO2 45 mmHg VBG HCO3 21 mmol/L VBG O2 Saturation 72.4 % VBG Base Excess -4.5 mEq/L Sodium (136-145) mmol/L Potassium (3.5-5.1) mmol/L Chloride (98-107) mmol/L Carbon Dioxide (21-32) mmol/L Anion Gap (3-11) BUN (6-23) mg/dl Creatinine (0.6-1.2) mg/dl Est Cr Clr Drug Dosing Est GFR ( Amer) ml/min Est GFR (Non-Af Amer) ml/min BUN/Creatinine Ratio (10-20) Glucose (70-99(Fasting)) mg/dl Osmolality (280-300) mOsm/kg Calcium (8.5-10.1) mg/dl Phosphorus (2.5-4.9) mg/dl Magnesium (1.7-2.4) mg/dl Total Bilirubin (0.2-1.0) mg/dl AST (13-39) U/L ALT (7-52) U/L Alkaline Phosphatase (34-104) U/L Troponin I High Sens (0-14) pg/ml Total Protein (6.0-8.3) gm/dl Albumin (3.4-5.0) gm/dl Globulin (2.5-4.0) gm/dl Albumin/Globulin Ratio (0.9-2) Urine Color Urine Appearance (Clear) Urine pH (4.5-7.5) Ur Specific [place] (1.000-1.030) Urine Protein (Negative) Urine Glucose (UA) (Negative) Urine Ketones (Negative) Urine Blood (Negative) Urine Nitrite (Negative) Urine Bilirubin (Negative) Urine Urobilinogen (Negative) Ur Leukocyte Esterase (Negative) Urine WBC (Auto) (0-5) /hpf Urine RBC (Auto) (0-4) /hpf U Hyaline Cast (Auto) (0-5) /lpf U Epithel Cells (Auto) (0-5) /lpf Urine Bacteria (Auto) (Negative) Urine Osmolality (500-800) mOsm/kg Ur Random Sodium 58 mmol/L SARS-CoV-2, RNA, NAAT (NEGATIVE) Imaging Data Attestation: I personally reviewed and interpreted this imaging study as follows: My Impression: 1 view chest x-ray was obtained in the emergency department. My interpretation is no definite infiltrate, no free air, no acute disease. This was compared to a chest x-ray from November 01, 2021. No specific changes were noted. Discharge Plan Visit Data Chief Complaint: Abnormal Labs/Diagnostic Testing Stated Complaint: ABNORMAL LABS ED Provider: Juan Wild Discharge Problem: Acute hyponatremia, Acute hyperglycemia, JOSE (acute kidney injury), Urinary tract infection Patient Disposition: Being Evaluated by Hospitalist Forms Stand Alone Forms: My [facility] Prescriptions Prescriptions: No Action repaglinide 2 mg Tablet 2 mg PO AC lisinopril 20 mg Tablet 20 mg PO BID metoprolol succinate 100 mg Tablet Extended Release 24 Hr 100 mg PO QAM cyanocobalamin (vitamin B-12) [Vitamin B-12] 1,000 mcg Tablet 1,000 mcg PO Q OTHER DAY Rx Instructions: Take on odd days aspirin 81 mg Tablet,Delayed Release (Dr/Ec) 81 mg PO QAM acetaminophen 500 mg Tablet 1,000 mg PO BID ginkgo biloba 40 mg Tablet 40 mg PO BID triamcinolone acetonide 0.025 % Cream 1 applic TOPICAL BID coQ10 (ubiquinol) 100 mg Capsule 100 mg PO QAM verapamil 180 mg Tablet Extended Release 180 mg PO QPM Qty: 30 0RF sertraline 50 mg Tablet 25 mg PO QAM Qty: 30 0RF loratadine 10 mg tablet 10 mg PO HS Tradjenta 5 mg tablet 5 mg PO DAILY isosorbide dinitrate 20 mg Tablet 20 mg PO TID@0700,1200,1700 Qty: 90 0RF atorvastatin 80 mg tablet 80 mg PO DAILY Jardiance 25 mg tablet 25 mg PO DAILY hydralazine 50 mg tablet 50 mg PO TID Referrals Referrals: Dalila Bauman MD [Primary Care Provider] -
[2022-09-02 20:44] LABS: Basophils # (auto) 0.05 K/uL (0-0.2); Basophils % (auto) 0.6 %; Eosinophils # (auto) 0.12 K/uL (0-0.50); Eosinophils % (auto) 1.3 %; Hematocrit (blood only) 37.6 % (37.0-47.0); Hemoglobin 12.4 g/dl (12.0-16.0); Immature Granulocytes # (auto) 0.02 K/uL (0.01-0.20); Immature Granulocytes % (auto) 0.2 %; Lymphocytes # (auto) 2.57 K/uL (1.2-3.4); Lymphocytes % (auto) 28.5 %; Mean Corpuscular Hemoglobin 31.9 pg (25.0-34.0); Mean Corpuscular Volume 96.7 fL (80.0-100.0); Mean Platelet Volume 10.5 fL (9.4-12.4); Monocytes # (auto) 0.83 K/uL (0.11-0.59); Monocytes % (auto) 9.2 %; Neutrophils # (auto) 5.42 K/uL (1.40-6.50); Neutrophils % (auto) 60.2 %; Platelet Count 306 K/uL (130-400); RDW Coefficient of Variation 11.9 % (11.5-14.5); RDW Standard Deviation 41.5 fL (36.4-46.3); Red Blood Count 3.89 M/uL (4.20-5.40); White Blood Count 9.01 K/ul (4.8-10.8)
[2022-09-02 20:51] LABS: Appearance Urine Clear (Clear); Bacteria Urine Automated Negative (Negative); Bilirubin Urine Negative (Negative); Blood Urine Negative (Negative); Cast Urine Automated 0 /lpf (0-5); Color Urine Yellow; Glucose Urine UA 3+ (Negative); Ketones Urine Trace (Negative); Leukocyte Esterase Urine 1+ (Negative); Nitrite Urine Negative (Negative); Protein Urine 1+ (Negative); RBC Urine Automated 0-4 /hpf (0-4); Specific Gravity Urine 1.025 (1.000-1.030); Urobilinogen Urine Negative (Negative); WBC Urine Automated >30 /hpf (0-5)
[2022-09-02 21:10] LABS: Base Excess VBG -4.5 mEq/L; HCO3 VBG 21 mmol/L; Oxygen Saturation VBG 72.4 %; PCO2 VBG 40 mmHg (38-50); PO2 VBG 45 mmHg; pH VBG 7.33 (7.36-7.41)
[2022-09-02 21:21] LABS: Alanine Aminotransferase 19 U/L (7-52); Albumin Globulin Ratio 1.2 (0.9-2); Albumin Level 4.6 gm/dl (3.4-5.0); Alkaline Phosphatase 54 U/L (34-104); Anion Gap 11 (3-11); Aspartate Aminotransferase 16 U/L (13-39); BUN Creatinine Ratio 24.3 (10-20); Bilirubin,Total 0.4 mg/dl (0.2-1.0); Blood Urea Nitrogen 43 mg/dl (6-23); Calcium 10.5 mg/dl (8.5-10.1); Carbon Dioxide 20 mmol/L (21-32); Chloride 100 mmol/L (98-107); Est GFR (African American) 29.2 ml/min; Est GFR (Non-African American) 25.2 ml/min; Globulin 3.9 gm/dl (2.5-4.0); Glucose 336 mg/dl (70-99(Fasting)); Magnesium 1.8 mg/dl (1.7-2.4); Phosphorus 4.2 mg/dl (2.5-4.9); Potassium 4.6 mmol/L (3.5-5.1); Sodium 131 mmol/L (136-145); Total Protein 8.5 gm/dl (6.0-8.3); Troponin I High Sensitivity 11.7 pg/ml (0-14)
[2022-09-02] MEDS ORDERED: cefTRIAXone SODIUM 2,000 MG/70 ML BAG IV STA (21:22)
[2022-09-02] MEDS ORDERED: SODIUM CHLORIDE 0.9% 500 ML IV ONE (21:22)
[2022-09-02] MEDS ORDERED: NovoLIN-R INSULIN PER UNIT CHARGE IV STA (21:22)
[2022-09-02] MEDS ORDERED: lisinopril 20 MG TAB PO STA (21:22)
[2022-09-02] MEDS ORDERED: hydrALAZINE HCL 25 MG TAB PO STA (21:22)
[2022-09-02] MEDS ORDERED: VERAPAMIL HCL 180 MG TABCR PO ONE (21:23)
[2022-09-02] MEDS ORDERED: hydrALAZINE HCL 20 MG/ML VIAL IV STA (21:39)
[2022-09-02] MEDS ORDERED: LANTUS PER UNIT CHARGE SQ STA (21:47)
[2022-09-02] MEDS ORDERED: GLUCOSE 40% GEL 15 GM TUBE PO PRN (21:48)
[2022-09-02] MEDS ORDERED: GLUCAGON FOR INJ 1 MG VIAL SQ PRN (21:48)
[2022-09-02] MEDS ORDERED: CARBOHYDRATES FOR HYPOGLYCEMIA PO PRN (21:48)
[2022-09-02] MEDS ORDERED: DEXTROSE 50% 50 ML SYRINGE IV PRN (21:48)
[2022-09-02] MEDS ORDERED: GLUCOSE 10 TAB/TUBE PO PRN (21:48)
[2022-09-02] MEDS: INSULIN ASPART PER UNIT SC SCH (22:23)
[2022-09-02] MEDS ORDERED: SODIUM CHLORIDE 0.9% 1000ML 1,000 ML IV STA (22:55)
[2022-09-02] MEDS ORDERED: amLODIPine BESYLATE 5 MG TAB PO STA (22:55)
--- NOTE | 2022-09-02 22:56 | History & Physical Report ---
Date of Service September 02, 2022 Assessment & Plan (1) Hypertensive crisis: Plan: Patient asymptomatic except for usual exertional SOB. ARF on CKD secondary to uncontrolled BP, medications chronic diastolic heart failure (EF 70%, TTE 2021), patient euvolemic hx PVD hyperlipidemia on statin Rx DM 2, on oral medications, patient started by Selina SCHWARTZ on Lantus subcutaneous prescription today with note of recent outpatient hemoglobin A1c blood work hx [facility] mood disorder, at baseline Asymptomatic pyuria PCU Continue home beta-pb, CCB at current doses Increase hydralazine to 75 mg p.o. 3 times daily as contemplated by Cardiology. Initiate Amlodipine Monitor creatinine response to IVF Appropriate to hold home ACEI for now for now until kidney function back to baseline Basal bolus insulin, ISS BG goal 1 10-1 40, carb count coverage DM education, poorly controlled DM2, newly on insulin home medication Follow urine CS, hold off on antibiotics for now for asymptomatic pyuria DVT prophylaxis. Heparin subcu Full code Text document was generated using [employer] voice recognition software. It may contain grammatical or spelling errors. Kindly contact undersigned for clarification of any documentation item in question. History of Present Illness Chief Complaint: Abnormal blood work Primary Care Provider: Dalila Bauman MD History obtained from patient and records. Medical history significant for chronic diastolic heart failure (EF 70%, TTE 2021), PVD, hypertension, hyperlipidemia, DM 2 (recently started on insulin ), CRI (baseline creatinine 1.6), familial hypocalciuric hypercalcemia, mood disorder. Two admissions last year for hypertensive crisis. 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 SBP at the office noted to be 170 to 210s. Patient compliant with home medications. Usual SBP at home 150s as per patient. Patient without headache, chest pain symptoms at time of visit. Usual exertional SOB. Denies fluid retention. Denies unusual stress. Admits to being tired after COVID-19 illness last year. Denies OTC NSAID intake. Not aware of PATRICK. Patient instructed to monitor BP at home and to notify tank builder supervisor office if SBP greater than 150s. Hydralazine increased from 50 to 75 mg p.o. 3 times daily contemplated if BP still uncontrolled. Abnormal outpatient lab results obtained yesterday (2/27). Serum sodium 129, potassium 5.7, glucose 434, calcium 10.5 Hemoglobin A1c noted to be 10.7. Patient instructed by cardiology provider to stop Aldactone and to repeat chemistry today (09/02). Serum sodium 126, potassium 5.3, glucose 519. Patient directed to ER for further evaluation. 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 Allergies Allergy/AdvReac Type Severity Reaction Status Date / Time latex Allergy Unknown Unknown Unverified 09/02/22 21:13 Penicillins Allergy Unknown Unknown Unverified 09/02/22 21:13 Sulfa (Sulfonamide Allergy Unknown Unknown Unverified 09/02/22 21:13 Antibiotics) Home Medications Medication Instructions Recorded Confirmed Type acetaminophen 500 mg tablet 1,000 mg PO BID 10/31/21 09/02/22 History aspirin 81 mg tablet,delayed 81 mg PO QAM 10/31/21 09/02/22 History release coQ10 (ubiquinol) 100 mg capsule 100 mg PO QAM 10/31/21 09/02/22 History cyanocobalamin (vitamin B-12) 1,000 mcg PO Q OTHER DAY 10/31/21 09/02/22 History 1,000 mcg tablet (Vitamin B-12) ginkgo biloba 40 mg tablet 40 mg PO BID 10/31/21 09/02/22 History lisinopril 20 mg tablet 20 mg PO BID 10/31/21 09/02/22 History metoprolol succinate 100 mg 100 mg PO QAM 10/31/21 09/02/22 History tablet,extended release 24 hr repaglinide 2 mg tablet 2 mg PO AC 10/31/21 09/02/22 History triamcinolone acetonide 0.025 % 1 applic topical BID 10/31/21 09/02/22 History topical cream sertraline 50 mg tablet 25 mg PO QAM #30 tabs 11/08/21 09/02/22 Rx verapamil 180 mg tablet,extended 180 mg PO QPM #30 tabs 11/08/21 09/02/22 Rx release linagliptin 5 mg tablet (Tradjenta) 5 mg PO DAILY 12/16/21 09/02/22 History loratadine 10 mg tablet 10 mg PO HS 12/16/21 09/02/22 History isosorbide dinitrate 20 mg tablet 20 mg PO TID@0700,1200,1700 #90 12/19/21 09/02/22 Rx tabs Lantus Solostar U-100 Insulin 100 units SC 09/02/22 09/02/22 History atorvastatin 80 mg tablet 80 mg PO DAILY 09/02/22 09/02/22 History empagliflozin 25 mg tablet 25 mg PO DAILY 09/02/22 09/02/22 History (Jardiance) hydralazine 50 mg tablet 50 mg PO TID 09/02/22 09/02/22 History Past Med/Surg History Medical History Anxiety CKD (chronic kidney disease) stage 3, GFR 30-59 ml/min Diabetes mellitus with kidney complication, without long-term current use of insulin DM2 (diabetes mellitus, type 2) H/O: HTN (hypertension) Headache Hypertensive urgency Tingling Surgical History Hx of cataract surgery Social History Smoking Status: Never smoker Second Hand Exposure: Yes; Hx Alcohol Use: Yes Alcohol type: beer and wine Hx Substance Use: No Preferred Language: Qatari Communication Ability: Effective Pharmacy 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 Required: No Beliefs That Will Affect Care: None marital status: / Current Living Situation: Alone Feels Safe at Home: Yes Assistive Devices: Walker Review of Systems Review of Systems: As per HPI, all other systems reviewed and negative Physical Exam Physical Exam: GENERAL: Comfortable, pleasant, looks younger than stated age, no respiratory distress SKIN: Normal color, warm HEENT: [place] palpebral conjunctivae, no ptosis, moist buccal mucosa NECK : Supple, no tenderness CHEST : CTA, no tenderness HEART : RRR, no obvious murmurs ABDOMEN: Some distention, nontender EXTREMITIES : No LE swelling/tenderness, no other conspicuous deformities noted NEUROLOGIC : Coherent, no facial asymmetry, no other gross focality Results & Data Results & Data ([facility]) Vital Signs (Past 12 Hours) Vital Signs Temp Pulse Pulse Resp BP BP Pulse Ox 09/02/22 20:21 65 09/02/22 20:21 67 16 231/84 H 97 09/02/22 17:51 36.3 C L 72 20 193/71 H 94 O2 Del Method 09/02/22 20:21 09/02/22 20:21 Room Air 09/02/22 17:51 Room Air Laboratory Results Laboratory Results WBC 9.01 K/ul (4.8-10.8) 09/02/22 20:15 RBC 3.89 M/uL (4.20-5.40) L 09/02/22 20:15 Hgb 12.4 g/dl (12.0-16.0) 09/02/22 20:15 Hct 37.6 % (37.0-47.0) 09/02/22 20:15 MCV 96.7 fL (80.0-100.0) 09/02/22 20:15 MCH 31.9 pg (25.0-34.0) 09/02/22 20:15 MCHC 33.0 g/dL (32.0-36.0) 09/02/22 20:15 RDW Std Deviation 41.5 fL (36.4-46.3) 09/02/22 20:15 RDW Coeff of Rojelio 11.9 % (11.5-14.5) 09/02/22 20:15 Plt Count 306 K/uL (130-400) 09/02/22 20:15 MPV 10.5 fL (9.4-12.4) 09/02/22 20:15 Immature Gran % (Auto) 0.2 % 09/02/22 20:15 Neut % (Auto) 60.2 % 09/02/22 20:15 Lymph % (Auto) 28.5 % 09/02/22 20:15 [place] % (Auto) 9.2 % 09/02/22 20:15 Eos % (Auto) 1.3 % 09/02/22 20:15 Baso % (Auto) 0.6 % 09/02/22 20:15 Neut # (Auto) 5.42 K/uL (1.40-6.50) 09/02/22 20:15 Lymph # (Auto) 2.57 K/uL (1.2-3.4) 09/02/22 20:15 [place] # (Auto) 0.83 K/uL (0.11-0.59) H 09/02/22 20:15 Eos # (Auto) 0.12 K/uL (0-0.50) 09/02/22 20:15 Baso # (Auto) 0.05 K/uL (0-0.2) 09/02/22 20:15 Immature Gran # (Auto) 0.02 K/uL (0.01-0.20) 09/02/22 20:15 VBG pH 7.33 (7.36-7.41) L 09/02/22 20:57 VBG pCO2 40 mmHg (38-50) 09/02/22 20:57 VBG pO2 45 mmHg 09/02/22 20:57 VBG HCO3 21 mmol/L 09/02/22 20:57 VBG O2 Saturation 72.4 % 09/02/22 20:57 VBG Base Excess -4.5 mEq/L 09/02/22 20:57 Sodium 131 mmol/L (136-145) L 09/02/22 20:15 Potassium 4.6 mmol/L (3.5-5.1) 09/02/22 20:15 Chloride 100 mmol/L (98-107) 09/02/22 20:15 Carbon Dioxide 20 mmol/L (21-32) L 09/02/22 20:15 Anion Gap 11 (3-11) 09/02/22 20:15 BUN 43 mg/dl (6-23) H 09/02/22 20:15 Creatinine 1.77 mg/dl (0.6-1.2) H 09/02/22 20:15 Est Cr Clr Drug Dosing Not Reportable 09/02/22 20:15 Est GFR ( Amer) 29.2 ml/min 09/02/22 20:15 Est GFR (Non-Af Amer) 25.2 ml/min 09/02/22 20:15 BUN/Creatinine Ratio 24.3 (10-20) H 09/02/22 20:15 Glucose 336 mg/dl (70-99(Fasting)) H* 09/02/22 20:15 Osmolality 306 mOsm/kg (280-300) H 09/02/22 20:15 Calcium 10.5 mg/dl (8.5-10.1) H 09/02/22 20:15 Phosphorus 4.2 mg/dl (2.5-4.9) 09/02/22 20:15 Magnesium 1.8 mg/dl (1.7-2.4) 09/02/22 20:15 Total Bilirubin 0.4 mg/dl (0.2-1.0) 09/02/22 20:15 AST 16 U/L (13-39) 09/02/22 20:15 ALT 19 U/L (7-52) 09/02/22 20:15 Alkaline Phosphatase 54 U/L (34-104) 09/02/22 20:15 Troponin I High Sens 11.7 pg/ml (0-14) 09/02/22 20:15 Total Protein 8.5 gm/dl (6.0-8.3) H 09/02/22 20:15 Albumin 4.6 gm/dl (3.4-5.0) 09/02/22 20:15 Globulin 3.9 gm/dl (2.5-4.0) 09/02/22 20:15 Albumin/Globulin Ratio 1.2 (0.9-2) 09/02/22 20:15 Urine Color Yellow 09/02/22 20:21 Urine Appearance Clear (Clear) 09/02/22 20:21 Urine pH 5.0 (4.5-7.5) 09/02/22 20:21 Ur Specific [place] 1.025 (1.000-1.030) 09/02/22 20:21 Urine Protein 1+ (Negative) H 09/02/22 20:21 Urine Glucose (UA) 3+ (Negative) H 09/02/22 20:21 Urine Ketones Trace (Negative) H 09/02/22 20:21 Urine Blood Negative (Negative) 09/02/22 20:21 Urine Nitrite Negative (Negative) 09/02/22 20:21 Urine Bilirubin Negative (Negative) 09/02/22 20:21 Urine Urobilinogen Negative (Negative) 09/02/22 20:21 Ur Leukocyte Esterase 1+ (Negative) H 09/02/22 20:21 Urine WBC (Auto) >30 /hpf (0-5) H 09/02/22 20:21 Urine RBC (Auto) 0-4 /hpf (0-4) 09/02/22 20:21 U Hyaline Cast (Auto) 0 /lpf (0-5) 09/02/22 20:21 U Epithel Cells (Auto) 5-10 /lpf (0-5) H 09/02/22 20:21 Urine Bacteria (Auto) Negative (Negative) 09/02/22 20:21 Urine Osmolality 563 mOsm/kg (500-800) 09/02/22 20:21 Ur Random Sodium 58 mmol/L 09/02/22 20:21 SARS-CoV-2, RNA, NAAT NEGATIVE (NEGATIVE) 09/02/22 20:21 Diagnostic Findings EKG as per my interpretation : Rate 70, NSR, normal axis, no ischemia Code Status & VTE Plan VTE Prophylaxis Plan VTE Prophylaxis will be ordered: Yes
[2022-09-03] MEDS ORDERED: PROMETHAZINE HCL 12.5 MG in SODIUM CHLORIDE 0.9% 50 ML IV PRN (00:54)
[2022-09-03] MEDS ORDERED: oxyCODONE HCL IR 5 MG TAB (IMMEDIATE RELEASE) PO PRN (00:54)
[2022-09-03] MEDS ORDERED: ACETAMINOPHEN 325 MG TAB PO PRN (00:54)
[2022-09-03] MEDS: LORATADINE 10 MG TAB PO SCH ×2 (01:24→20:59)
[2022-09-03] MEDS ORDERED: amLODIPine BESYLATE 5 MG TAB PO ONE (02:21)
[2022-09-03] MEDS: HEPARIN SOD 5,000 UNIT/0.5 ML VIAL SQ SCH ×3 (05:51→21:01)
[2022-09-03] MEDS: ISOSORBIDE DINITRATE 20 MG TAB PO SCH ×3 (05:52→17:13)
[2022-09-03] MEDS: METOPROLOL SUCC 50MG EXT REL TAB PO SCH (06:19)
[2022-09-03 07:22] LABS: Basophils # (auto) 0.04 K/uL (0-0.2); Basophils % (auto) 0.5 %; Eosinophils # (auto) 0.11 K/uL (0-0.50); Eosinophils % (auto) 1.4 %; Hematocrit (blood only) 33.6 % (37.0-47.0); Hemoglobin 11.3 g/dl (12.0-16.0); Immature Granulocytes # (auto) 0.02 K/uL (0.01-0.20); Immature Granulocytes % (auto) 0.3 %; Lymphocytes # (auto) 2.06 K/uL (1.2-3.4); Lymphocytes % (auto) 26.3 %; Mean Corpuscular Hemoglobin 32.4 pg (25.0-34.0); Mean Corpuscular Hgb Conc 33.6 g/dL (32.0-36.0); Mean Corpuscular Volume 96.3 fL (80.0-100.0); Mean Platelet Volume 10.3 fL (9.4-12.4); Monocytes % (auto) 10.2 %; Neutrophils # (auto) 4.79 K/uL (1.40-6.50); Neutrophils % (auto) 61.3 %; Platelet Count 263 K/uL (130-400); RDW Coefficient of Variation 11.9 % (11.5-14.5); RDW Standard Deviation 41.5 fL (36.4-46.3); Red Blood Count 3.49 M/uL (4.20-5.40); White Blood Count 7.82 K/ul (4.8-10.8)
[2022-09-03 07:37] LABS: BUN Creatinine Ratio 24.4 (10-20); Calcium 9.7 mg/dl (8.5-10.1); Creatinine Clr Calc Pharmacy 25.2 ml/min; Est GFR (Non-African American) 28.5 ml/min; Potassium 4.2 mmol/L (3.5-5.1)
--- NOTE | 2022-09-03 08:14 | XRay Report ---
XR chest 1V portable HISTORY: 87 years-old Female generalized illness COMPARISON: 11/01/2021 TECHNIQUE: AP view of the chest FINDINGS: Cardiac silhouette is enlarged. Atherosclerosis of the aorta. No pneumothorax, large pleural effusion , airspace consolidation or pulmonary edema. Degenerative changes of the shoulders and spine. IMPRESSION: Cardiomegaly without acute process. ACT 112: Negative or not required by law. The above report was generated using voice recognition software. It may contain grammatical, syntax o r spelling errors. Electronically signed by: Deon Mercado M.D. 09/03/2022 8:12 AM
[2022-09-03] MEDS: ATORVASTATIN 40 MG TAB PO SCH (08:19)
[2022-09-03] MEDS: SERTRALINE HCL 50 MG TABLET PO SCH (08:19)
[2022-09-03] MEDS: ASPIRIN 81 MG ECTAB PO SCH (08:20)
[2022-09-03] MEDS: hydrALAZINE HCL 25 MG TAB PO SCH ×3 (08:21→20:59)
[2022-09-03] MEDS ORDERED: PHARMACY GLYCEMIC MGMT CONSULT PRN (08:21)
[2022-09-03] MEDS: INSULIN ASPART PER UNIT SC SCH ×4 (08:24→20:52)
--- NOTE | 2022-09-03 08:39 | Cardiology Consultation ---
Date of Consultation September 03, 2022 Assessment & Plan (1) Hypertensive crisis: (2) Acute hyponatremia: (3) Acute hyperglycemia: (4) Acute on chronic kidney failure: Plan Patient admitted for hypertensive crisis and electrolyte disturbances. BP improving this morning with titration of hydralazine. Amlodipine was added last night, but patient already taking CCB with verapamil 180 mg. Will stop amlodipine. Continue verapamil. If needed, there is room to increase hydralazine, isosorbide, or verapamil if needed. Renal function returned to baseline. Potassium improved. Resume lower dose lisinopril 20 mg daily (home dose was 20 mg BID) Continue to hold spironolactone. Monitor renal function, sodium, potassium. HS troponin was unremarkable. EKG without acute changes. Patient without cardiac complaints. Once BP and electrolyte disturbances have improved, anticipate discharge in 1 day. Glucose yesterday as outpatient was > 500 would benefit from DM management while inpatient. Case discussed with Dr. Louis Supervising Physician Co-Signing Physician Notes I have reviewed the advance practitioner documentation and agree. I saw and evaluated the patient on the date of service referenced in the note and have performed a medically appropriate history and or exam. The patient needs better management of hypertension and diabetes and we will help out. History of Present Illness Reason for Consultation: HTN crisis; Electrolyte disturbances Requesting Physician: Dr. Ramos Attending Physician: Dr. Louis History of Present Illness Patient is a 87 year old female known to [facility], Dr. Schroeder/FELICITY Maynard History includes: 1. Longstanding history of hypertension with past hypertensive urgency 2. Diastolic heart failure 3. CKD stage 3 4. Type 2 diabetes 5. Atherosclerotic carotid disease, right carotid artery stenosis 70% on neck CTA- follows with vascular 6. Chronic vertigo Patient evaluated in cardiology clinic last week. Found to be hypertensive with BP ranging 170-200/80's. She was asymptomatic. She went for updated blood work which demonstrated renal dysfunction with creatinine of 1.7 (baseline around 1.5) with hyperkalemia (5.7) and hyponatremia (129). Aldactone was held and repeat labs requested in 1 day. Unfortunately these labs demonstrated worsening hyponatremia at 126, potassium improving at 5.3, and critical glucose level of 519. She was referred to the ER due to electrolyte disturbances. Upon arrival to ER, BP was significantly elevated > 200/80 suggesting hypertensive crisis. She was asymptomatic. Upon arrival as well, sodium levels were better at 131, but remained low. Potassium improved as well. Creatinine at 1.7. Hbg A1C at 10. Upon admission, hydralazine was increased to 75 mg BID. Lisinopril held due to renal dysfunction. Amlodipine was added by hospitalist. (Patient already on verapamil). chest xray was without acute process. HS troponin unremarkable. EKG demonstrating NSR without ischemic changes. She was admitted due to HTN and electrolyte disturbances. At time of consult, patient resting in bed comfortably. Denies acute complaints. BP trending down this morning. Headache resolved. No chest pain or SOB. No edema. Feels tired as she did not sleep well. Allergies Allergy/AdvReac Type Severity Reaction Status Date / Time latex Allergy Unknown Unknown Unverified 09/02/22 21:13 Penicillins Allergy Unknown Unknown Unverified 09/02/22 21:13 Sulfa (Sulfonamide Allergy Unknown Unknown Unverified 09/02/22 21:13 Antibiotics) Home Medications Medication Instructions Recorded Confirmed Type acetaminophen 500 mg tablet 1,000 mg PO BID 10/31/21 09/02/22 History aspirin 81 mg tablet,delayed 81 mg PO QAM 10/31/21 09/02/22 History release coQ10 (ubiquinol) 100 mg capsule 100 mg PO QAM 10/31/21 09/02/22 History cyanocobalamin (vitamin B-12) 1,000 mcg PO Q OTHER DAY 10/31/21 09/02/22 History 1,000 mcg tablet (Vitamin B-12) ginkgo biloba 40 mg tablet 40 mg PO BID 10/31/21 09/02/22 History lisinopril 20 mg tablet 20 mg PO BID 10/31/21 09/02/22 History metoprolol succinate 100 mg 100 mg PO QAM 10/31/21 09/02/22 History tablet,extended release 24 hr repaglinide 2 mg tablet 2 mg PO AC 10/31/21 09/02/22 History triamcinolone acetonide 0.025 % 1 applic topical BID 10/31/21 09/02/22 History topical cream sertraline 50 mg tablet 25 mg PO QAM #30 tabs 11/08/21 09/02/22 Rx verapamil 180 mg tablet,extended 180 mg PO QPM #30 tabs 11/08/21 09/02/22 Rx release linagliptin 5 mg tablet (Tradjenta) 5 mg PO DAILY 12/16/21 09/02/22 History loratadine 10 mg tablet 10 mg PO HS 12/16/21 09/02/22 History isosorbide dinitrate 20 mg tablet 20 mg PO TID@0700,1200,1700 #90 12/19/21 09/02/22 Rx tabs Lantus Solostar U-100 Insulin 30 units SC HS 09/02/22 09/03/22 History atorvastatin 80 mg tablet 80 mg PO DAILY 09/02/22 09/02/22 History empagliflozin 25 mg tablet 25 mg PO DAILY 09/02/22 09/03/22 History (Jardiance) hydralazine 50 mg tablet 50 mg PO TID 09/02/22 09/02/22 History Patient History Medical History Anxiety CKD (chronic kidney disease) stage 3, GFR 30-59 ml/min Diabetes mellitus with kidney complication, without long-term current use of insulin DM2 (diabetes mellitus, type 2) H/O: HTN (hypertension) Headache Hypertensive urgency Tingling Surgical History Hx of cataract surgery Social History Smoking Status: Never smoker Second Hand Exposure: Yes; Hx Alcohol Use: Yes Alcohol type: beer and wine Hx Substance Use: No Preferred Language: Korean Communication Ability: Effective 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 Beliefs That Will Affect Care: None marital status: / Current Living Situation: Alone Feels Safe at Home: Yes Assistive Devices: Walker Review of Systems Review of Systems: All systems reviewed & are unremarkable except as noted in HPI & below Physical Exam Constitutional: WD/WN, vitals as above well developed; no acute distress Neck: normal visual inspection Respiratory: normal respiratory effort, lungs clear to auscultation Cardiovascular: RRR, no murmur, no edema Gastrointestinal (Abdomen): normal bowel sounds, soft, nontender, no hepatosplenomegaly Skin: no rashes, warm and dry Psychiatric: A+Ox3, euthymic affect Results & Data ([place]) Vital Signs (Past 12 Hours) Vital Signs Temp Pulse Pulse Resp BP Pulse Ox O2 Del Method 09/03/22 08:17 36.8 C 69 18 150/74 H 96 Room Air 09/03/22 05:55 187/74 H 09/03/22 03:24 79 09/03/22 00:15 36.6 C 74 16 193/79 H 97 Room Air 09/03/22 00:00 74 18 166/89 H 97 Room Air 09/02/22 22:00 72 18 182/101 H 97 Room Air Laboratory Results Cardiac Enzymes 09/02/22 Range/Units 20:15 AST 16 (13-39) U/L Troponin I High Sens 11.7 (0-14) pg/ml CBC 09/02/22 09/03/22 Range/Units 20:15 06:38 WBC 9.01 7.82 (4.8-10.8) K/ul RBC 3.89 L 3.49 L (4.20-5.40) M/uL Hgb 12.4 11.3 L (12.0-16.0) g/dl Hct 37.6 33.6 L (37.0-47.0) % Plt Count 306 263 (130-400) K/uL Neut # (Auto) 5.42 4.79 (1.40-6.50) K/uL Lymph # (Auto) 2.57 2.06 (1.2-3.4) K/uL [place] # (Auto) 0.83 H 0.80 H (0.11-0.59) K/uL Eos # (Auto) 0.12 0.11 (0-0.50) K/uL Baso # (Auto) 0.05 0.04 (0-0.2) K/uL Comprehensive Metabolic Panel 09/02/22 09/03/22 Range/Units 20:15 06:38 Sodium 131 L 132 L (136-145) mmol/L Potassium 4.6 4.2 (3.5-5.1) mmol/L Chloride 100 104 (98-107) mmol/L Carbon Dioxide 20 L 20 L (21-32) mmol/L BUN 43 H 39 H (6-23) mg/dl Creatinine 1.77 H 1.60 H (0.6-1.2) mg/dl Glucose 336 H* 168 H (70-99(Fasting)) mg/dl Calcium 10.5 H 9.7 (8.5-10.1) mg/dl AST 16 (13-39) U/L ALT 19 (7-52) U/L Alkaline Phosphatase 54 (34-104) U/L Total Protein 8.5 H (6.0-8.3) gm/dl Albumin 4.6 (3.4-5.0) gm/dl Intake and Output 09/02/22 09/03/22 09/03/22 22:59 06:59 14:59 Intake Total 500 / 500 Balance 500 / 500 Intake: IV 500 / 500 Sodium Chloride 0.9% 500 ml @ 500 / 500 999 mls/hr IV .Q31M ONE Rx#: [id number] Other: # Unmeasured Voids 1 Weight 85.3 kg Weight Measurement Method Built in [facility] Diagnostic Findings Telemetry reviewed: NSR in the 70's. rare ectopy. EKG reviewed on admission: Normal sinus rhythm Nonspecific ST and T wave abnormality Abnormal ECG When compared with ECG of 16-DEC-2021 14:51, No significant change was found Chest xray: no acute process Medications Administered Current Inpatient Medications Acetaminophen (Acetaminophen 325 Mg Tab) 650 mg PO Q4H PRN PRN Reason: Pain or Fever Stop: 10/03/22 00:53 Last Admin: 09/03/22 01:25 Dose: 650 mg Aspirin (Aspirin 81 Mg Ectab) 81 mg PO QAM [facility] Stop: 10/03/22 08:59 Last Admin: 09/03/22 08:20 Dose: 81 mg Atorvastatin Calcium (Atorvastatin 40 Mg Tab) 80 mg PO DAILY [facility] Stop: 10/03/22 08:59 Last Admin: 09/03/22 08:19 Dose: 80 mg Cyanocobalamin (Cyanocobalamin (B-12) 500 Mcg Tablet) 1,000 mcg PO Q2D@0900 [facility] Stop: 10/03/22 08:59 Last Admin: 09/03/22 08:20 Dose: 1,000 mcg Dextrose (Dextrose 50% 50 Ml Syringe) 25 - 50 ml IV UD PRN; Protocol PRN Reason: Hypoglycemia Protocol Stop: 10/02/22 21:47 Glucagon (Glucagon For Inj 1 Mg Vial) 1 mg SQ UD PRN; Protocol PRN Reason: Hypoglycemia Protocol Stop: 10/02/22 21:47 Glucose (Glucose 10 Tab/Tube) 4 - 8 tab PO UD PRN; Protocol PRN Reason: Hypoglycemia Treatment Stop: 10/02/22 21:47 Glucose (Glucose 40% Gel 15 Gm Tube) 15 - 30 gm PO UD PRN; Protocol PRN Reason: Hypoglycemia Protocol Stop: 10/02/22 21:47 Heparin Sodium (Porcine) (Heparin Sod 5,000 Unit/0.5 Ml Vial) 5,000 units SQ Q8 [facility] Stop: 10/03/22 05:59 Last Admin: 09/03/22 05:51 Dose: 5,000 units Hydralazine HCl (Hydralazine Hcl 25 Mg Tab) 75 mg PO TID [facility] Stop: 10/03/22 08:59 Last Admin: 09/03/22 08:21 Dose: 75 mg Sodium Chloride (Nss 1000ml) 1,000 mls @ 60 mls/hr IV .[id number] [facility] Stop: 09/03/22 15:34 Last Admin: 09/03/22 00:56 Dose: 60 mls/hr Promethazine HCl 12.5 mg/ (Sodium Chloride) 50.5 mls @ 202 mls/hr IV Q6H PRN PRN Reason: Nausea And Vomiting Stop: 10/03/22 00:53 Insulin Aspart (Insulin Aspart Per Unit) 0 units SC ACHS [facility] Stop: 10/02/22 21:49 Last Admin: 09/03/22 08:24 Dose: 6 units Insulin Glargine (Lantus Per Unit Charge) 30 units SQ PM [facility] Stop: 10/03/22 16:29 Isosorbide Dinitrate (Isosorbide Dinitrate 20 Mg Tab) 20 mg PO TID@0700,1200,1700 [facility] Stop: 10/03/22 06:59 Last Admin: 09/03/22 05:52 Dose: 20 mg Lisinopril (Lisinopril 20 Mg Tab) 20 mg PO QAM [facility] Stop: 10/03/22 09:14 Loratadine (Loratadine 10 Mg Tab) 10 mg PO HS [facility] Stop: 10/03/22 00:53 Last Admin: 09/03/22 01:24 Dose: Not Given Metoprolol Succinate (Metoprolol Succ 50mg Ext Rel Tab) 100 mg PO QAM [facility] Stop: 10/03/22 05:59 Last Admin: 09/03/22 06:19 Dose: 100 mg Miscellaneous (Carbohydrates For Hypoglycemia ) 15 - 30 gm PO UD PRN PRN Reason: Hypoglycemia Protocol Stop: 10/02/22 21:47 Miscellaneous Information (Pharmacy Glycemic Mgmt Consult) 1 each N/A UD PRN; Protocol PRN Reason: Consult Stop: 10/03/22 08:20 Oxycodone HCl (Oxycodone Hcl Ir 5 Mg Tab (Immediate Release)) 5 mg PO Q4H PRN PRN Reason: Pain Stop: 09/17/22 00:53 Sertraline HCl (Sertraline Hcl 50 Mg Tablet) 25 mg PO QAM [facility] Stop: 10/03/22 08:59 Last Admin: 09/03/22 08:19 Dose: 25 mg Verapamil HCl (Verapamil Hcl 180 Mg Tabcr) 180 mg PO QPM [facility] Stop: 10/03/22 20:59
[2022-09-03] MEDS ORDERED: METOPROLOL SUCC 50MG EXT REL TAB PO SCH (09:00)
[2022-09-03] MEDS ORDERED: CYANOCOBALAMIN (B-12) 500 MCG TABLET PO SCH (09:00)
[2022-09-03] MEDS: lisinopril 20 MG TAB PO SCH (11:15)
--- NOTE | 2022-09-03 14:14 | Hospitalist Progress Note ---
Date of Service September 03, 2022 Assessment & Plan (1) Hypertensive crisis: Plan: Hypertensive urgency Hydralazine dose increased to 75 mg daily Continue verapamil, metoprolol, isosorbide, Resume lisinopril 20 mg daily Appreciate cardiology input Monitor blood pressure Hyperkalemia Patient blood work showed potassium 5.3 Resolved Potassium 4.2 today Lisinopril resumed Uncontrolled diabetes mellitus HbA1c 10.7 Recently initiated on Lantus Hold p.o. 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 In setting of hypoglycemia, H/O familial hypocalciuric hypercalcemia, Sodium 132 to today Monitor sodium levels Asymptomatic PVD Hyperlipidemia Continue aspirin, statin Mood disorder Continue home meds Asymptomatic pyuria Urine culture pending Asymptomatic We will consider antibiotics if needed DVT Px: Heparin SQ Code Status Full code Admission and Anticipated Discharge Date Admission Date: September 02, 2022 Subjective Patient is seen and examined at bedside States having minimal headache this morning but later improved Denies any chest pain, shortness breath, dizziness, nausea, abdominal pain No other complaints Also denies any dysuria, hematuria, increased urinary frequency Review of Systems Review of Systems: All systems reviewed & are unremarkable except as noted in Subjective Physical Exam Physical Exam: Physical Exam: Vitals signs as noted above General Appearance:Obese, no apparent distress Head: normocephalic, Atraumatic Eyes: normal inspection, EOMI Neck: supple, Trachea midline Respiratory/Chest: Normal breath sounds, CTA, No accessory muscle use Cardiovascular: S1, S2, No murmur Abdomen/GI:Soft, Non tender, Bowel sounds present Extremities/Musculoskeletal:normal inspection, Trace edema Neurologic/Psych:AAOX3, grossly no focal neurological deficits Skin: normal color, warm Results & Data Results & Data ([facility]) Vital Signs (Past 12 Hours) Vital Signs Temp Pulse Pulse Resp BP Pulse Ox O2 Del Method 09/03/22 12:22 69 09/03/22 11:12 36.7 C 71 19 149/70 H 97 Room Air 09/03/22 08:17 36.8 C 69 18 150/74 H 96 Room Air 09/03/22 05:55 187/74 H 09/03/22 03:24 79 Laboratory Results Short CBC 09/02/22 09/03/22 Range/Units 20:15 06:38 WBC 9.01 7.82 (4.8-10.8) K/ul Hgb 12.4 11.3 L (12.0-16.0) g/dl Hct 37.6 33.6 L (37.0-47.0) % Plt Count 306 263 (130-400) K/uL BMP 09/02/22 09/03/22 20:15 06:38 Sodium 131 L 132 L Potassium 4.6 4.2 Chloride 100 104 Carbon Dioxide 20 L 20 L BUN 43 H 39 H Creatinine 1.77 H 1.60 H Glucose 336 H* 168 H Calcium 10.5 H 9.7 Liver Function 09/02/22 Range/Units 20:15 Total Bilirubin 0.4 (0.2-1.0) mg/dl AST 16 (13-39) U/L ALT 19 (7-52) U/L Alkaline Phosphatase 54 (34-104) U/L Albumin 4.6 (3.4-5.0) gm/dl Urine 09/02/22 Range/Units 20:21 Urine Color Yellow Urine Appearance Clear (Clear) Urine pH 5.0 (4.5-7.5) Ur Specific [place] 1.025 (1.000-1.030) Urine Protein 1+ H (Negative) Urine Glucose (UA) 3+ H (Negative)
--- NOTE | 2022-09-03 14:35 | Pharmacy Report ---
Pharmacy Glycemic Short Note 2 - Date of Service September 03, 2022 - Glycemic Short BSG Results (Last 24 hours): 09/02/22 09/03/22 09/03/22 20:15 06:38 08:15 Glucose 336 H* 168 H POC Glucose 225 H 09/03/22 11:11 Glucose POC Glucose 176 H OUTPATIENT ANTIDIABETIC REGIMEN: * Lantus 30 units SQ qHS * Jardiance 10 mg PO daily * Tradjenta 5 mg PO daily * Prandin 2mg PO TID before meals * HbA1c: 10.7% (09/01/22) ASSESSMENT: * Ms Urrutia is an 87yo diabetic F admitted with hypertensive crisis. * BSGs were elevated on admission. * Pharmacy consulted this morning to assist with glycemic mgmt. * Lantus increased to outpt dose beginning this evening. Novolog parameters adjusted this morning to provide additional carb coverage. * Pharmacy will continue to follow and adjust regimen as indicated. PLAN FOR INPATIENT GLYCEMIC CONTROL: * Hold outpatient oral diabetes medications * Basal insulin * Lantus 30 units SQ qPM * Bolus insulin * NovoLog per scale ACHS or Q6hrs while NPO * Goal Range: Low 110 mg/dL - High 140 mg/dL * Correction Factor: 30 mg/dL/unit * Nutritional / Prandial insulin per carb ratio of 1 unit per 10 grams CHO consumed
--- NOTE | 2022-09-03 15:58 | Electrocardiogram Report ---
Test Reason : Blood Pressure : / mmHG Vent. Rate : 072 BPM Atrial Rate : 072 BPM P-R Int : 196 ms QRS Dur : 082 ms QT Int : 362 ms P-R-T Axes : 114 031 095 degrees QTc Int : 396 ms Normal sinus rhythm Nonspecific ST and T wave abnormality Abnormal ECG When compared with ECG of 16-DEC-2021 14:51, No significant change was found Confirmed by Juan Reese ([id number]) on 09/03/2022 3:57:59 PM Referred By: Wiliam Schroeder Confirmed By:Juan Reese
[2022-09-03] MEDS ORDERED: LANTUS PER UNIT CHARGE SQ SCH ×2 (16:30→21:00)
[2022-09-03] MEDS ORDERED: VERAPAMIL HCL 180 MG TABCR PO SCH (21:00)
[2022-09-03] MEDS ORDERED: amLODIPine BESYLATE 5 MG TAB PO SCH ×2 (21:00)
[2022-09-04] MEDS: HEPARIN SOD 5,000 UNIT/0.5 ML VIAL SQ SCH ×2 (06:03→14:34)
[2022-09-04] MEDS: ISOSORBIDE DINITRATE 20 MG TAB PO SCH (06:25)
[2022-09-04 06:51] LABS: Hematocrit (blood only) 33.1 % (37.0-47.0); Hemoglobin 11.1 g/dl (12.0-16.0); Mean Corpuscular Hemoglobin 32.5 pg (25.0-34.0); Mean Corpuscular Hgb Conc 33.5 g/dL (32.0-36.0); Mean Corpuscular Volume 96.8 fL (80.0-100.0); Mean Platelet Volume 10.4 fL (9.4-12.4); Platelet Count 236 K/uL (130-400); RDW Standard Deviation 42.5 fL (36.4-46.3); Red Blood Count 3.42 M/uL (4.20-5.40); White Blood Count 6.36 K/ul (4.8-10.8)
[2022-09-04 07:12] LABS: BUN Creatinine Ratio 23.2 (10-20); Calcium 9.2 mg/dl (8.5-10.1); Creatinine Clr Calc Pharmacy 22.2 ml/min; Est GFR (African American) 28.4 ml/min; Est GFR (Non-African American) 24.5 ml/min; Magnesium 1.7 mg/dl (1.7-2.4); Potassium 4.4 mmol/L (3.5-5.1)
[2022-09-04] MEDS: SERTRALINE HCL 50 MG TABLET PO SCH (08:40)
[2022-09-04] MEDS: ASPIRIN 81 MG ECTAB PO SCH (08:40)
[2022-09-04] MEDS: hydrALAZINE HCL 25 MG TAB PO SCH ×2 (08:40→15:12)
[2022-09-04] MEDS: lisinopril 20 MG TAB PO SCH (08:40)
[2022-09-04] MEDS: ATORVASTATIN 40 MG TAB PO SCH (08:40)
[2022-09-04] MEDS: METOPROLOL SUCC 50MG EXT REL TAB PO SCH (08:41)
[2022-09-04] MEDS: INSULIN ASPART PER UNIT SC SCH ×3 (08:44→16:49)
--- NOTE | 2022-09-04 10:48 | Cardiology Progress Note ---
Date of Service September 04, 2022 Assessment & Plan (1) Hypertensive crisis: (2) Acute hyponatremia: (3) Acute hyperglycemia: (4) Acute on chronic kidney failure: Plan Patient admitted for hypertensive crisis and electrolyte disturbances. BP improving throughout admission. Amlodipine was added last night, but patient already taking CCB with verapamil 180 mg. Will stop amlodipine. Continue verapamil. hydralazine increased to 75 mg TID Isosorbide increased to 30 TID Continue metoprolol and verapamil Lisinopril resumed at lower dose at 20 mg daily due to hyperkalemia and renal dysfunction. (prior dose was 20 mg BID) Renal function returned to baseline. Potassium improved. Sodium improved. Continue to hold spironolactone. May need to resume furosemide on discharge. Stable for discharge from cardiac perspective with above recommendations. Case discussed with Dr. Louis Admission and Anticipated Discharge Date Admission Date: September 02, 2022 Supervising Physician Co-Signing Physician Notes I have reviewed the advance practitioner documentation and agree. I saw and evaluated the patient on the date of service referenced in the note and have performed a medically appropriate history and or exam. We will follow patient up as an outpatient. Subjective Patient out of bed, resting comfortably. Denies acute complaints. BP has trended down since admission. Denies chest pain or SOB. No edema. Review of Systems Review of Systems: All systems reviewed & are unremarkable except as noted in HPI & below Physical Exam Constitutional: WD/WN, vitals as above well developed; no acute distress Neck: normal visual inspection Respiratory: normal respiratory effort, lungs clear to auscultation Cardiovascular: RRR, no murmur, no edema Gastrointestinal (Abdomen): normal bowel sounds, soft, nontender, no hepatosplenomegaly Skin: no rashes, warm and dry Psychiatric: A+Ox3, euthymic affect Results & Data ([facility]) Vital Signs (Past 12 Hours) Vital Signs Temp Pulse Pulse Pulse Resp BP Pulse Ox 09/04/22 07:47 65 09/04/22 07:33 36.9 C 70 20 168/75 H 96 09/04/22 05:54 62 09/04/22 04:42 36.7 C 67 18 153/80 H 95 09/04/22 02:52 67 09/04/22 01:50 75 09/04/22 01:35 79 09/03/22 23:52 37 C 71 20 136/76 98 Pulse Ox O2 Del Method O2 Del Method 09/04/22 07:47 09/04/22 07:33 Room Air 09/04/22 05:54 93 Room Air 09/04/22 04:42 Room Air 09/04/22 02:52 94 Room Air 09/04/22 01:50 09/04/22 01:35 96 Room Air 09/03/22 23:52 Room Air Laboratory Results CBC 09/04/22 Range/Units 06:13 WBC 6.36 (4.8-10.8) K/ul RBC 3.42 L (4.20-5.40) M/uL Hgb 11.1 L (12.0-16.0) g/dl Hct 33.1 L (37.0-47.0) % Plt Count 236 (130-400) K/uL Comprehensive Metabolic Panel 09/04/22 Range/Units 06:13 Sodium 135 L (136-145) mmol/L Potassium 4.4 (3.5-5.1) mmol/L Chloride 108 H (98-107) mmol/L Carbon Dioxide 19 L (21-32) mmol/L BUN 42 H (6-23) mg/dl Creatinine 1.81 H (0.6-1.2) mg/dl Glucose 158 H (70-99(Fasting)) mg/dl Calcium 9.2 (8.5-10.1) mg/dl Intake and Output 09/03/22 09/04/22 09/04/22 22:59 06:59 14:59 Intake Total 500 / 1404 100 / 1404 Balance 500 / 1404 100 / 1404 Intake: Oral 500 / 600 100 / 600 Other: # Unmeasured Voids 3 Weight 85.2 kg Weight Measurement Method Built in [facility] Diagnostic Findings Telemetry reviewed: NSR in the 60-70's. No concerning arrhythmias Medications Administered Current Inpatient Medications Acetaminophen (Acetaminophen 325 Mg Tab) 650 mg PO Q4H PRN PRN Reason: Pain or Fever Stop: 10/03/22 00:53 Last Admin: 09/03/22 01:25 Dose: 650 mg Aspirin (Aspirin 81 Mg Ectab) [facility] [place] Stop: 10/03/22 08:59 Last Admin: 09/04/22 08:40 Dose: 81 mg Atorvastatin Calcium (Atorvastatin 40 Mg Tab) 80 mg PO DAILY [facility] Stop: 10/03/22 08:59 Last Admin: 09/04/22 08:40 Dose: 80 mg Cyanocobalamin (Cyanocobalamin (B-12) 500 Mcg Tablet) 1,000 mcg PO Q2D@0900 [facility] Stop: 10/03/22 08:59 Last Admin: 09/03/22 08:20 Dose: 1,000 mcg Dextrose (Dextrose 50% 50 Ml Syringe) 25 - 50 ml IV UD PRN; Protocol PRN Reason: Hypoglycemia Protocol Stop: 10/02/22 21:47 Glucagon (Glucagon For Inj 1 Mg Vial) 1 mg SQ UD PRN; Protocol PRN Reason: Hypoglycemia Protocol Stop: 10/02/22 21:47 Glucose (Glucose 10 Tab/Tube) 4 - 8 tab PO UD PRN; Protocol PRN Reason: Hypoglycemia Treatment Stop: 10/02/22 21:47 Glucose (Glucose 40% Gel 15 Gm Tube) 15 - 30 gm PO UD PRN; Protocol PRN Reason: Hypoglycemia Protocol Stop: 10/02/22 21:47 Heparin Sodium (Porcine) (Heparin Sod 5,000 Unit/0.5 Ml Vial) 5,000 units SQ Q8 [facility] Stop: 10/03/22 05:59 Last Admin: 09/04/22 06:03 Dose: Not Given Hydralazine HCl (Hydralazine Hcl 25 Mg Tab) 75 mg PO TID [facility] Stop: 10/03/22 08:59 Last Admin: 09/04/22 08:40 Dose: 75 mg Promethazine HCl 12.5 mg/ (Sodium Chloride) 50.5 mls @ 202 mls/hr IV Q6H PRN PRN Reason: Nausea And Vomiting Stop: 10/03/22 00:53 Insulin Aspart (Insulin Aspart Per Unit) 0 units SC ACHS [facility] Stop: 10/02/22 21:49 Last Admin: 09/04/22 08:44 Dose: 6 units Insulin Glargine (Lantus Per Unit Charge) 30 units SQ PM [facility] Stop: 10/03/22 16:29 Last Admin: 09/03/22 17:12 Dose: 30 units Isosorbide Dinitrate (Isosorbide Dinitrate 10 Mg Tab) 30 mg PO TID@0700,1200,1700 [facility] Stop: 10/04/22 11:59 Lisinopril (Lisinopril 20 Mg Tab) 20 mg PO QAM [facility] Stop: 10/03/22 09:14 Last Admin: 09/04/22 08:40 Dose: 20 mg Loratadine (Loratadine 10 Mg Tab) 10 mg PO HS [facility] Stop: 10/03/22 00:53 Last Admin: 09/03/22 20:59 Dose: 10 mg Metoprolol Succinate (Metoprolol Succ 50mg Ext Rel Tab) [facility] [place] Stop: 10/03/22 05:59 Last Admin: 09/04/22 08:41 Dose: 100 mg Miscellaneous (Carbohydrates For Hypoglycemia ) 15 - 30 gm PO UD PRN PRN Reason: Hypoglycemia Protocol Stop: 10/02/22 21:47 Miscellaneous Information (Pharmacy Glycemic Mgmt Consult) 1 each N/A UD PRN; Protocol PRN Reason: Consult Stop: 10/03/22 08:20 Oxycodone HCl (Oxycodone Hcl Ir 5 Mg Tab (Immediate Release)) 5 mg PO Q4H PRN PRN Reason: Pain Stop: 09/17/22 00:53 Sertraline HCl (Sertraline Hcl 50 Mg Tablet) [facility] [place] Stop: 10/03/22 08:59 Last Admin: 09/04/22 08:40 Dose: 50 mg Verapamil HCl (Verapamil Hcl 180 Mg Tabcr) 180 mg PO QPM [facility] Stop: 10/03/22 20:59 Last Admin: 09/03/22 20:59 Dose: 180 mg
--- NOTE | 2022-09-04 11:29 | Hospitalist Progress Note ---
Date of Service September 04, 2022 Assessment & Plan (1) Hypertensive crisis: Plan: Hypertensive urgency Hydralazine dose increased to 75 mg 3 times daily Continue verapamil, metoprolol Isosorbide increased to 30 mg 3 times daily Resume lisinopril 20 mg daily (Reduced from 20mg BID) Can resume Lasix if patient develops leg edema upon discharge Hold spironolactone for now Appreciate cardiology input Plan to discharge home in next 24-48 hours Hyperkalemia Patient blood work showed potassium 5.3 Potassium 4.4 today Lisinopril resumed as above Monitor potassium levels Uncontrolled diabetes mellitus HbA1c 10.7 Recently initiated on Lantus Hold p.o. 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 In setting of hypoglycemia, H/O familial hypocalciuric hypercalcemia, Sodium 135 to today Monitor sodium levels Asymptomatic PVD Hyperlipidemia Continue aspirin, statin Mood disorder Continue home meds Asymptomatic pyuria Urine culture growing gram-positive cocci Asymptomatic Will consider antibiotics if needed DVT Px: Heparin SQ Code Status Full code Admission and Anticipated Discharge Date Admission Date: September 02, 2022 Subjective Patient is seen and examined at bedside Doing well today Bp much improved Discussed with Cardiology today Denies any chest pain, shortness breath, dizziness, nausea, abdominal pain, dysuria, hematuria No events overnight Review of Systems Review of Systems: All systems reviewed & are unremarkable except as noted in Subjective Physical Exam Physical Exam: Physical Exam: Vitals signs as noted above General Appearance:Obese, no apparent distress Head: normocephalic, Atraumatic Eyes: normal inspection, EOMI Neck: supple, Trachea midline Respiratory/Chest: Normal breath sounds, CTA, No accessory muscle use Cardiovascular: S1, S2, No murmur Abdomen/GI:Soft, Non tender, Bowel sounds present Extremities/Musculoskeletal:normal inspection, Trace edema Neurologic/Psych:AAOX3, grossly no focal neurological deficits Skin: normal color, warm Results & Data Results & Data ([facility]) Vital Signs (Past 12 Hours) Vital Signs Temp Pulse Pulse Pulse Resp BP Pulse Ox 09/04/22 11:19 36.8 C 74 16 146/65 H 95 09/04/22 07:47 65 09/04/22 07:33 36.9 C 70 20 168/75 H 96 09/04/22 05:54 62 09/04/22 04:42 36.7 C 67 18 153/80 H 95 09/04/22 02:52 67 09/04/22 01:50 75 09/04/22 01:35 79 09/03/22 23:52 37 C 71 20 136/76 98 Pulse Ox O2 Del Method O2 Del Method 09/04/22 11:19 Room Air 09/04/22 07:47 09/04/22 07:33 Room Air 09/04/22 05:54 93 Room Air 09/04/22 04:42 Room Air 09/04/22 02:52 94 Room Air 09/04/22 01:50 09/04/22 01:35 96 Room Air 09/03/22 23:52 Room Air Laboratory Results Short CBC 09/04/22 Range/Units 06:13 WBC 6.36 (4.8-10.8) K/ul Hgb 11.1 L (12.0-16.0) g/dl Hct 33.1 L (37.0-47.0) % Plt Count 236 (130-400) K/uL BMP 09/04/22 06:13 Sodium 135 L Potassium 4.4 Chloride 108 H Carbon Dioxide 19 L BUN 42 H Creatinine 1.81 H Glucose 158 H Calcium 9.2
[2022-09-04] MEDS: ISOSORBIDE DINITRATE 10 MG TAB PO SCH ×2 (12:23→16:51)
--- NOTE | 2022-09-04 13:42 | Pharmacy Report ---
Pharmacy Glycemic Short Note 2 - Date of Service September 04, 2022 - Glycemic Short BSG Results (Last 24 hours): 09/03/22 09/03/22 09/04/22 16:15 20:10 06:13 Glucose 158 H POC Glucose 226 H 270 H 09/04/22 09/04/22 09/04/22 07:29 11:27 11:51 Glucose POC Glucose 164 H 376 H* 335 H* OUTPATIENT ANTIDIABETIC REGIMEN: * Lantus 30 units SQ qHS * Jardiance 10 mg PO daily * Tradjenta 5 mg PO daily * Prandin 2mg PO TID before meals * HbA1c: 10.7% (09/01/22) ASSESSMENT: 09/04/22: * BSGs trended up throughout the day yesterday, despite insulin regimen changes. * Novolog parameters were tightened further this morning. Pre-lunch BSG was much higher than anticipated. RN reports that pt had two large pancakes for breakfast which may be contributing? * Will continue to follow. 09/03 * Ms Urrutia is an 87yo diabetic F admitted with hypertensive crisis. * BSGs were elevated on admission. * Pharmacy consulted this morning to assist with glycemic mgmt. * Lantus increased to outpt dose beginning this evening. Novolog parameters adjusted this morning to provide additional carb coverage. * Pharmacy will continue to follow and adjust regimen as indicated. PLAN FOR INPATIENT GLYCEMIC CONTROL: * Hold outpatient oral diabetes medications * Basal insulin * Lantus 30 units SQ qPM * Bolus insulin * NovoLog per scale ACHS or Q6hrs while NPO * Goal Range: Low 110 mg/dL - High 140 mg/dL * Correction Factor: 25 mg/dL/unit * Nutritional / Prandial insulin per carb ratio of 1 unit per 8 grams CHO consumed
--- NOTE | 2022-09-04 13:54 | Discharge Summary ---
Date of Service September 04, 2022 Admission HPI Per Admitting Provider History obtained from patient and records. Medical history significant for chronic diastolic heart failure (EF 70%, TTE 2021), PVD, hypertension, hyperlipidemia, DM 2 (recently started on insulin ), CRI (baseline creatinine 1.6), familial hypocalciuric hypercalcemia, mood disorder. Two admissions last year for hypertensive crisis. Patient seen at [facility] calender runner's office 5 days ago for follow-up visit. SBP at the office noted to be 170 to 210s. Patient compliant with home medications. Usual SBP at home 150s as per patient. Patient without headache, chest pain symptoms at time of visit. Usual exertional SOB. Denies fluid retention. Denies unusual stress. Admits to being tired after COVID-19 illness last year. Denies OTC NSAID intake. Not aware of PATRICK. Patient instructed to monitor BP at home and to notify calender runner office if SBP greater than 150s. Hydralazine increased from 50 to 75 mg p.o. 3 times daily contemplated if BP still uncontrolled. Abnormal outpatient lab results obtained yesterday (09/01). Serum sodium 129, potassium 5.7, glucose 434, calcium 10.5 Hemoglobin A1c noted to be 10.7. Patient instructed by cardiology provider to stop Aldactone and to repeat chemistry today (09/02). Serum sodium 126, potassium 5.3, glucose 519. Patient directed to ER for further evaluation. 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 Admission Exam Per Admitting Provider GENERAL: Comfortable, pleasant, looks younger than stated age, no respiratory distress SKIN: Normal color, warm HEENT: [place] palpebral conjunctivae, no ptosis, moist buccal mucosa NECK : Supple, no tenderness CHEST : CTA, no tenderness HEART : RRR, no obvious murmurs ABDOMEN: Some distention, nontender EXTREMITIES : No LE swelling/tenderness, no other conspicuous deformities noted NEUROLOGIC : Coherent, no facial asymmetry, no other gross focality Principal Diagnosis Hypertensive urgency Hyperkalemia Uncontrolled diabetes mellitus Chronic Hyponatremia Asymptomatic pyuria Discharge Data Allergies Allergy/AdvReac Type Severity Reaction Status Date / Time latex Allergy Unknown Unknown Unverified 09/02/22 21:13 Penicillins Allergy Unknown Unknown Unverified 09/02/22 21:13 Sulfa (Sulfonamide Allergy Unknown Unknown Unverified 09/02/22 21:13 Antibiotics) Consultations 09/02/22 21:37 ED Decision to Admit Stat 09/03/22 00:54 Consult Cardiology Routine Procedures Performed Laboratory Results WBC 6.36 K/ul (4.8-10.8) 09/04/22 06:13 RBC 3.42 M/uL (4.20-5.40) L 09/04/22 06:13 Hgb 11.1 g/dl (12.0-16.0) L 09/04/22 06:13 Hct 33.1 % (37.0-47.0) L 09/04/22 06:13 MCV 96.8 fL (80.0-100.0) 09/04/22 06:13 MCH 32.5 pg (25.0-34.0) 09/04/22 06:13 MCHC 33.5 g/dL (32.0-36.0) 09/04/22 06:13 RDW Std Deviation 42.5 fL (36.4-46.3) 09/04/22 06:13 RDW Coeff of Rojelio 12.0 % (11.5-14.5) 09/04/22 06:13 Plt Count 236 K/uL (130-400) 09/04/22 06:13 MPV 10.4 fL (9.4-12.4) 09/04/22 06:13 Immature Gran % (Auto) 0.3 % 09/03/22 06:38 Neut % (Auto) 61.3 % 09/03/22 06:38 Lymph % (Auto) 26.3 % 09/03/22 06:38 [place] % (Auto) 10.2 % 09/03/22 06:38 Eos % (Auto) 1.4 % 09/03/22 06:38 Baso % (Auto) 0.5 % 09/03/22 06:38 Neut # (Auto) 4.79 K/uL (1.40-6.50) 09/03/22 06:38 Lymph # (Auto) 2.06 K/uL (1.2-3.4) 09/03/22 06:38 [place] # (Auto) 0.80 K/uL (0.11-0.59) H 09/03/22 06:38 Eos # (Auto) 0.11 K/uL (0-0.50) 09/03/22 06:38 Baso # (Auto) 0.04 K/uL (0-0.2) 09/03/22 06:38 Immature Gran # (Auto) 0.02 K/uL (0.01-0.20) 09/03/22 06:38 VBG pH 7.33 (7.36-7.41) L 09/02/22 20:57 VBG pCO2 40 mmHg (38-50) 09/02/22 20:57 VBG pO2 45 mmHg 09/02/22 20:57 VBG HCO3 21 mmol/L 09/02/22 20:57 VBG O2 Saturation 72.4 % 09/02/22 20:57 VBG Base Excess -4.5 mEq/L 09/02/22 20:57 Sodium 135 mmol/L (136-145) L 09/04/22 06:13 Potassium 4.4 mmol/L (3.5-5.1) 09/04/22 06:13 Chloride 108 mmol/L (98-107) H 09/04/22 06:13 Carbon Dioxide 19 mmol/L (21-32) L 09/04/22 06:13 Anion Gap 8 (3-11) 09/04/22 06:13 BUN 42 mg/dl (6-23) H 09/04/22 06:13 Creatinine 1.81 mg/dl (0.6-1.2) H 09/04/22 06:13 Est Cr Clr Drug Dosing 22.2 ml/min 09/04/22 06:13 Est GFR ( Amer) 28.4 ml/min 09/04/22 06:13 Est GFR (Non-Af Amer) 24.5 ml/min 09/04/22 06:13 BUN/Creatinine Ratio 23.2 (10-20) H 09/04/22 06:13 Glucose 158 mg/dl (70-99(Fasting)) H 09/04/22 06:13 POC Glucose 335 mg/dl (70-99) H* 09/04/22 11:51 Osmolality 306 mOsm/kg (280-300) H 09/02/22 20:15 Calcium 9.2 mg/dl (8.5-10.1) 09/04/22 06:13 Phosphorus 4.2 mg/dl (2.5-4.9) 09/02/22 20:15 Magnesium 1.7 mg/dl (1.7-2.4) 09/04/22 06:13 Total Bilirubin 0.4 mg/dl (0.2-1.0) 09/02/22 20:15 AST 16 U/L (13-39) 09/02/22 20:15 ALT 19 U/L (7-52) 09/02/22 20:15 Alkaline Phosphatase 54 U/L (34-104) 09/02/22 20:15 Troponin I High Sens 11.7 pg/ml (0-14) 09/02/22 20:15 Total Protein 8.5 gm/dl (6.0-8.3) H 09/02/22 20:15 Albumin 4.6 gm/dl (3.4-5.0) 09/02/22 20:15 Globulin 3.9 gm/dl (2.5-4.0) 09/02/22 20:15 Albumin/Globulin Ratio 1.2 (0.9-2) 09/02/22 20:15 Urine Color Yellow 09/02/22 20:21 Urine Appearance Clear (Clear) 09/02/22 20:21 Urine pH 5.0 (4.5-7.5) 09/02/22 20:21 Ur Specific [place] 1.025 (1.000-1.030) 09/02/22 20:21 Urine Protein 1+ (Negative) H 09/02/22 20:21 Urine Glucose (UA) 3+ (Negative) H 09/02/22 20:21 Urine Ketones Trace (Negative) H 09/02/22 20:21 Urine Blood Negative (Negative) 09/02/22 20:21 Urine Nitrite Negative (Negative) 09/02/22 20:21 Urine Bilirubin Negative (Negative) 09/02/22 20:21 Urine Urobilinogen Negative (Negative) 09/02/22 20:21 Ur Leukocyte Esterase 1+ (Negative) H 09/02/22 20:21 Urine WBC (Auto) >30 /hpf (0-5) H 09/02/22 20:21 Urine RBC (Auto) 0-4 /hpf (0-4) 09/02/22 20:21 U Hyaline Cast (Auto) 0 /lpf (0-5) 09/02/22 20:21 U Epithel Cells (Auto) 5-10 /lpf (0-5) H 09/02/22 20:21 Urine Bacteria (Auto) Negative (Negative) 09/02/22 20:21 Urine Osmolality 563 mOsm/kg (500-800) 09/02/22 20:21 Ur Random Sodium 58 mmol/L 09/02/22 20:21 SARS-CoV-2, RNA, NAAT NEGATIVE (NEGATIVE) 09/02/22 20:21 Impressions Chest X-Ray 09/02/22 20:55 XR chest 1V portable HISTORY: 87 years-old Female generalized illness COMPARISON: 11/01/2021 TECHNIQUE: AP view of the chest FINDINGS: Cardiac silhouette is enlarged. Atherosclerosis of the aorta. No pneumothorax, large pleural effusion, airspace consolidation or pulmonary edema. Degenerative changes of the shoulders and spine. IMPRESSION: Cardiomegaly without acute process. ACT 112: Negative or not required by law. The above report was generated using voice recognition software. It may contain grammatical, syntax or spelling errors. Electronically signed by: Deon Mercado M.D. 09/03/2022 8:12 AM Hospital Course (1) Hypertensive crisis: Hypertensive urgency Hydralazine dose increased to 75 mg 3 times daily Continue verapamil, metoprolol Isosorbide increased to 30 mg 3 times daily Resume lisinopril 20 mg daily (Was on Lisinopril 20mg BID) Can resume Lasix if patient develops leg edema upon discharge Hold spironolactone for now Appreciate cardiology input Plan to discharge home today Hyperkalemia Patient blood work showed potassium 5.3 Potassium 4.4 today Lisinopril resumed as above Monitor potassium levels Uncontrolled diabetes mellitus HbA1c 10.7 Recently initiated on Lantus Hold p.o. meds while hospitalized Continue insulin per Protocol simulation educator consulted CKD III Baseline Cr ~1.6-1.7 Monitor renal function Received IV fluids Avoid nephrotoxic agents as able Chronic diastolic heart failure No signs of exacerbation Monitor volume status Currently off diuretics Chronic Hyponatremia Possible SIADH due to Zoloft In setting of hyperglycemia Sodium 135 to today Monitor sodium levels Asymptomatic H/O familial hypocalciuric hypercalcemia Monitor Calcium levels PVD Hyperlipidemia Continue aspirin, statin Mood disorder Continue home meds Asymptomatic pyuria Urine culture growing gram-positive cocci: 70,000 colonies Asymptomatic No indication for antibiotics currently DVT Px: Heparin SQ Code Status Full code Disposition Home Total Time Total Time Spent Total Time Spent (In Minutes): 58 minutes Discharge Plan Discharge Items Patient Disposition: Home - Self-Care Reason For Visit: HTN CRISIS Discharge Diagnosis: Hypertensive urgency Hyperkalemia Uncontrolled diabetes mellitus Chronic Hyponatremia Asymptomatic pyuria Activity: Per Instructions section Exercise/Sports: Gradually increase as tolerated Non-emergency contact: Primary Care Provider Call non-emergency contact if: you have any medication questions, your symptoms worsen, your pain is concerning for you and you have a fever Follow-up/Referrals: Dalila Bauman MD [Primary Care Provider] - Diet: Carb Consistent or DM2 and Heart Healthy Addtl Attending Provider Instructions: Follow-up with your primary care physician Dr. Dalila Bauman in 1 week Consider following with your calender runner as needed --- Your blood pressure medications are adjusted. Monitor your blood pressure regularly at home. Discuss with your primary care physician for further adjustment of blood pressure medications as needed. Medication changes Hydralazine dose increased to 75 mg 3 times a day Isosorbide dinitrate increased to 30 mg 3 times a day Lisinopril dose decreased to 20 mg daily --- Your urine culture is pending at the time of discharge. Follow-up with your physician for results. --- Your diuretics (spironolactone, Lasix) are discontinued for now. If you develop excessive fluid retention, weight gain--discussed with your physician for further recommendations about restarting diuretics as needed. Seek immediate medical attention if your symptoms reoccur or worsen Please take all medications as instructed on discharge list below. Please call if you have any questions or problems. You can reach a [facility] hospitalist on duty at [facility] 24 hours a day by calling [phone] Pending Studies at Discharge: Yes Studies:: Urine Culture Stand-Alone Forms: My [facility] [employer], Smoking Cessation Medications and DC Order Prescriptions: New isosorbide dinitrate 30 mg tablet 30 mg PO TID Qty: 90 1RF Rx Instructions: allow nitrate-free interval of 12-14 hrs per 24-hr period hydralazine 25 mg tablet 25 mg PO TID Qty: 90 1RF Rx Instructions: Total 75MG TID per Day Continued repaglinide 2 mg Tablet 2 mg PO AC metoprolol succinate 100 mg Tablet Extended Release 24 Hr 100 mg PO QAM cyanocobalamin (vitamin B-12) [Vitamin B-12] 1,000 mcg Tablet 1,000 mcg PO Q OTHER DAY Rx Instructions: Take on odd days aspirin 81 mg Tablet,Delayed Release (Dr/Ec) 81 mg PO QAM acetaminophen 500 mg Tablet 1,000 mg PO BID ginkgo biloba 40 mg Tablet 40 mg PO BID triamcinolone acetonide 0.025 % Cream 1 applic TOPICAL BID coQ10 (ubiquinol) 100 mg Capsule 100 mg PO QAM verapamil 180 mg Tablet Extended Release 180 mg PO QPM Qty: 30 0RF sertraline 50 mg Tablet 25 mg PO QAM Qty: 30 0RF loratadine 10 mg tablet 10 mg PO HS Tradjenta 5 mg tablet 5 mg PO DAILY atorvastatin 80 mg tablet 80 mg PO DAILY Jardiance 25 mg tablet 25 mg PO DAILY hydralazine 50 mg tablet 50 mg PO TID Lantus Solostar U-100 Insulin 30 units SC HS Rx Instructions: px has not started increase by 3 units every 3 days until a.m. BSG less than 180 glimepiride 2 mg tablet 4 mg PO DAILY Changed lisinopril 20 mg Tablet 20 mg PO DAILY Qty: 30 0RF Discontinued isosorbide dinitrate 20 mg Tablet 20 mg PO TID@0700,1200,1700 Qty: 90 0RF Discharge Orders: Discharge Order (Routine); Ordered 09/04/22 Ordered By: Masoud King Admission Data Admit Date/Time: 09/02/22 22:38 Attending Provider: Masoud King Admit Provider: Olman Ramos Primary Care Provider: Dalila Bauman Other Providers: Olman Ramos ; Mayra Isaacs ; Dread Waller ; Martinez Lazaro ; Wiliam Schroeder ; Chavo Billy ; Phuc Louis ; Duane Montejo ; May Gipson ; Kari Tellez ; Mayra Barbour ; Cortes Acosta
== END 2022-09-04 18:11 | disposition home or self-care (01) | DRG 305 ==
LOC: ED 17:43 → 2S 22:38

== ENCOUNTER 2023-08-12 19:23 | Inpatient (IN) ==
--- NOTE | 2023-08-12 19:49 | Emergency Department Note ---
Impression & Plan Hypertension, uncontrolled, Elevated troponin, CKD (chronic kidney disease) ED Provider Note ED Provider Note NAME: BERNARD TRAN AGE:88 SEX: Female : 1935 ARRIVES VIA: EMS INFORMANT: Patient ED PROVIDER(s): Mamta Cruz DO CHIEF COMPLAINT: High blood pressure HPI: This is an 88-year-old female presents emerged from due to concern for high blood pressure and feeling "unwell". Patient states she was seen in the office today for a follow-up routine visit and her blood pressure check in the office was elevated. She states she went home and tried to relax took her usual medications and got something to eat and rechecked it again with her home monitor and it was still very high. She states into the evening it remained high and she felt generally unwell. She states she developed a mild headache additionally and decided to call 911 to come in and be evaluated. En route EMS gave her 4 baby aspirin, as well as nitro. She states the nitro gave her headache and she does not want any more of it. Blood pressures en route for EMS were markedly elevated. Patient states she had a similar episode and was admitted about a year ago and her blood pressure medications need to be adjusted. She does follow with cardiology as well as with nephrology. She states no other recent change in her blood pressure medications, she has not missed or skipped any doses. No recent illness, fevers or chills. She denies any chest pain or trouble breathing. PAST MEDICAL HISTORY:See Below PAST SURGICAL HISTORY:See Below FAMILY HISTORY:See Below SOCIAL HISTORY:See Below HOME MEDICATIONS:See Below ALLERGIES:See Below VITALS:See Below PHYSICAL EXAMINATION: GENERAL: alert, well appearing, well nourished, no distress, non-toxic EYE EXAM: normal conjunctiva, PERRL and EOM's grossly intact OROPHARYNX: no exudate, no erythema, lips, buccal mucosa, and tongue normal and mucous membranes are moist NECK: supple, no nuchal rigidity, no adenopathy, non-tender LUNGS: Clear to auscultation. Normal chest wall mechanics, no w/r/r HEART: no murmurs, S1 normal and S2 normal ABDOMEN: abdomen soft, non-tender, normo-active bowel sounds, no masses, no rebound or guarding. BACK: Back is symmetrical on inspection and there is no deformity, no midline tenderness, no CVA tenderness. SKIN: no rashes, petechiae, orbruising UPPER EXTREMITIES: upper extremities are grossly normal. FROM, nml pulses b/l. LOWER EXTREMITIES: No pitting edema. FROM, nml pulses b/l. NEURO EXAM: Normal sensorium, cranial nerves II-XII grossly intact, normal speech, no facial droop,nogross weakness of arms, no gross weakness of legs. Gross sensation intact. No ataxia. Vital Signs: reviewed and remarkable Differential Diagnosis: Hypertensive urgency, hypertensive emergency, CVA, ICH, dissection, noncompliance, medication ADR, electrolyte abnormality, JOSE, nephrotic syndrome, CHF, as well as others were considered MEDICAL DECISION MAKING: This is an 88-year-old female with a history of high blood pressure who presents due to significant high blood pressure readings at home and reported not feeling well. Patient noted to have marked hypertension for EMS who did try nitro and the patient however this contributed to a headache. Patient with significant blood pressure elevation upon arrival here. Labs drawn and sent, IV established, EKG and chest x-ray performed at bedside interpreted by me and patient monitored on telemetry. We initially started by giving the patient 3 doses of hydralazine. She was given cautious IV fluid rehydration. She was sent for CT head which was unremarkable. Patient then given her usual nighttime antihypertensive medication. Repeat EKG did not show any acute changes. Troponin was noted to be elevated however I suspect this is secondary to the uncontrolled hypertension. Patient with a normal and nonfocal neuroexam. Patient with no chest pain, back pain, or abdominal pain. I do not suspect occult dissection. No findings to suggest acute CHF. Case discussed with hospitalist team for additional evaluation and management. Consultation(s): [] ER Treatment Provided: See below Diagnostics Interpreted By Me: -ECG: Normal sinus at 62, normal axis, normal intervals, no acute ST/T wave changes EKG #2 normal sinus at 63, normal axis, normal intervals, no acute ST/T wave changes -Cardiac Monitoring: An order was placed for continuous cardiac monitoring. The monitor shows a rate of 62 with normal sinus rhythm. -Laboratory studies: As stated above and show below. -Imaging studies: X-ray Chest: A single view study of the chest was reviewed and was negative for cardiomegaly, focal infiltrate, effusion, pulmonary edema, or wide mediastinum. Triage Nursing Note Reviewed Prior/Outside Records Reviewed -prior discharge summary for uncontrolled hypertension reviewed Critical Care: Critical care of 48 min performed to assess and manage high likelihood of life- threatening uncontrolled hypertension, involving labs and imaging performed with assessment to evaluate uncontrolled hypertension diagnosis with frequent reassessment. This time includes bedside time, treatment discussions with patient/family/consultants, documentation time and excludes procedure time. Past Med/Surg History Medical History CKD (chronic kidney disease) stage 3, GFR 30-59 ml/min Anxiety Tingling Headache Hypertensive urgency Diabetes mellitus with kidney complication, without long-term current use of insulin DM2 (diabetes mellitus, type 2) H/O: HTN (hypertension) Surgical History Hx of cataract surgery Social History Smoking Status: Never smoker Second Hand Exposure: Yes; Do You Dip or Chew Tobacco: No; Hx Alcohol Use: No Hx Substance Use: No Preferred Language: [place] Communication Ability: Effective Transport Technician Required: No Beliefs That Will Affect Care: None marital status: / Current Living Situation: Alone Other Information That Helps Us Care for You: No Feels Safe at Home: Yes Safety Concerns: Feels Safe At This Time Assistive Devices: Glasses, Hearing Aid - Bilateral and Walker Allergies Allergies Allergy/AdvReac Type Severity Reaction Status Date / Time latex Allergy Severe DIFFICULTY Verified 08/12/23 21:08 BREATHING, TONGUE SWELLS Penicillins Allergy Severe DIFFICULTY Verified 08/12/23 21:08 BREATHING, TONGUE SWELLS Sulfa (Sulfonamide Allergy Severe DIFFICULTY Verified 08/12/23 21:08 Antibiotics) BREATHING, TONGUE SWELLS Home Meds Home Medications Medication Instructions Recorded Confirmed acetaminophen 500 mg tablet 1,000 mg PO BID 10/31/21 08/12/23 aspirin 81 mg tablet,delayed 81 mg PO QAM 10/31/21 08/12/23 release cyanocobalamin (vitamin B-12) 1,000 mcg PO 3XWK 10/31/21 08/12/23 1,000 mcg tablet (Vitamin B-12) metoprolol succinate 100 mg 100 mg PO QAM 10/31/21 08/12/23 tablet,extended release 24 hr repaglinide 2 mg tablet 2 mg PO AC 10/31/21 08/12/23 linagliptin 5 mg tablet (Tradjenta) 5 mg PO DAILY 12/16/21 08/12/23 loratadine 10 mg tablet 10 mg PO HS 12/16/21 08/12/23 atorvastatin 80 mg tablet 80 mg PO HS 09/02/22 08/12/23 empagliflozin 25 mg tablet 25 mg PO DAILY 09/02/22 08/12/23 (Jardiance) Prevagen 10 mg PO QPM 08/12/23 08/12/23 coQ10 (ubiquinol) 200 mg capsule 200 mg PO DAILY 08/12/23 08/12/23 furosemide 20 mg tablet 20 mg PO .[id number] 08/12/23 08/12/23 hydralazine 100 mg tablet 100 mg PO TID 08/12/23 08/12/23 insulin degludec 100 unit/mL (3 33 unit subcut QAM 08/12/23 08/12/23 mL) subcutaneous pen (Tresiba FlexTouch U-100 insulin) insulin glargine 100 unit/mL 33 unit subcut DAILY 08/12/23 08/12/23 subcutaneous solution (Lantus U-100 Insulin) lisinopril 20 mg tablet 20 mg PO BID 08/12/23 08/12/23 melatonin 1 mg tablet 1 mg PO HS Sleep 08/12/23 08/12/23 [id number] 5 mg-zeaxanth 1 cap PO QID 08/12/23 08/12/23 1 mg-bilberry 7.5 mg-herbal capsule ([employer] Formula) Previous Rx's Medication Instructions Recorded sertraline 50 mg tablet 25 mg (1/2 x 50 mg) PO QAM #30 tabs 11/08/21 verapamil 180 mg tablet,extended 180 mg PO QPM #30 tabs 11/08/21 release isosorbide dinitrate 30 mg tablet 30 mg PO TID #90 tabs 09/04/22 Results & Data (ED) Vital Signs Vital Signs - 24 hr 08/12/23 19:10 08/12/23 19:10 08/12/23 19:36 Temperature 36.9 C 36.9 C Temperature Source Oral Oral Pulse Rate 61 68 Pulse Rate [Right Finger] 65 Respiratory Rate 20 18 Blood Pressure 270/81 H Blood Pressure [Right Arm] 270/81 H Blood Pressure Mean 144 Blood Pressure Mean [Right Arm] 144 Pulse Oximetry 91 99 Oxygen Delivery Method Room Air Room Air Sepsis Recent Fever Within 48 Hours No Sepsis New/Unexplained Change in Mental Status N/A Sepsis Action Taken by Nursing No Action Required Laboratory Data 08/13/23 05:53 08/13/23 06:04 Lab Results 08/12/23 08/12/23 Range/Units 19:37 20:02 WBC 9.25 (4.8-10.8) K/ul RBC 3.90 L (4.20-5.40) M/uL Hgb 12.7 (12.0-16.0) g/dl Hct 37.4 (37.0-47.0) % MCV 95.9 (80.0-100.0) fL MCH 32.6 (25.0-34.0) pg MCHC 34.0 (32.0-36.0) g/dL RDW Std Deviation 45.3 (36.4-46.3) fL RDW Coeff of Rojelio 12.9 (11.5-14.5) % Plt Count 274 (130-400) K/uL MPV 9.8 (9.4-12.4) fL Immature Gran % (Auto) 0.3 % Neut % (Auto) 60.2 % Lymph % (Auto) 27.6 % Daniels % (Auto) 10.8 % Eos % (Auto) 0.6 % Baso % (Auto) 0.5 % Neut # (Auto) 5.56 (1.40-6.50) K/uL Lymph # (Auto) 2.55 (1.20-3.40) K/uL Daniels # (Auto) 1.00 H (0.11-0.59) K/uL Eos # (Auto) 0.06 (0.00-0.50) K/uL Baso # (Auto) 0.05 (0.00-0.20) K/uL Immature Gran # (Auto) 0.03 (0.01-0.20) K/uL PT 10.4 (9.0-12.0) Seconds INR 0.9 (0.9-1.1) APTT 31 (21-31) Seconds PTT Ratio 1.1 Sodium 136 (136-145) mmol/L Potassium 3.6 (3.5-5.1) mmol/L Chloride 104 (98-107) mmol/L Carbon Dioxide 23 (21-32) mmol/L Anion Gap 9 (3-11) BUN 38 H (6-23) mg/dl Creatinine 1.55 H (0.6-1.2) mg/dl Est Cr Clr Drug Dosing 26.1 ml/min Est GFR ( Amer) 34.1 ml/min Est GFR (Non-Af Amer) 29.4 ml/min BUN/Creatinine Ratio 24.5 H (10-20) Glucose 168 H (70-99(Fasting)) mg/dl POC Glucose 158 H (70-99) mg/dl Calcium 10.1 (8.6-10.3) mg/dl Magnesium 1.7 (1.7-2.4) mg/dl Total Bilirubin 0.4 (0.2-1.0) mg/dl AST 20 (13-39) U/L ALT 20 (7-52) U/L Alkaline Phosphatase 47 (34-104) U/L Troponin I High Sens 20.0 H (0-14) pg/ml Total Protein 8.1 (6.0-8.3) gm/dl Albumin 4.2 (3.4-5.0) gm/dl Globulin 3.9 (2.5-4.0) gm/dl Albumin/Globulin Ratio 1.1 (0.9-2) Lipase 31 (11-82) U/L TSH 2.651 (0.300-4.500) uIu/ml Administered Medications Acetaminophen (Acetaminophen 500 Mg Tab) 1,000 mg PO BID [facility] Stop: 09/12/23 08:59 Last Admin: 08/13/23 20:42 Dose: 1,000 mg Documented By: JOSE ELIAS Admin: 08/13/23 10:35 Dose: 1,000 mg Documented By: SAMANTHA Aspirin (Aspirin 81 Mg Ectab) 81 mg PO [facility] Stop: 09/12/23 08:59 Last Admin: 08/13/23 10:34 Dose: 81 mg Documented By: SAMANTHA Atorvastatin Calcium (Atorvastatin 40 Mg Tab) 80 mg PO [facility] Stop: 09/12/23 20:59 Last Admin: 08/13/23 20:44 Dose: 80 mg Documented By: JOSE ELIAS Calcium Carbonate (Calcium Carbonate 500 Mg Chewable Tab) 500 mg PO TID PRN PRN Reason: Indigestion Stop: 09/12/23 11:26 Last Admin: 08/13/23 12:46 Dose: 500 mg Documented By: SAMANTHA Heparin Sodium (Porcine) (Heparin Sod 5,000 Unit/0.5 Ml Vial) 5,000 units SQ Q8 [facility] Stop: 09/12/23 05:59 Last Admin: 08/13/23 20:44 Dose: 5,000 units Documented By: JOSE ELIAS Admin: 08/13/23 15:17 Dose: 5,000 units Documented By: Admin: 08/13/23 06:05 Dose: 5,000 units Documented By: ONEYDA Hydralazine HCl (Hydralazine Tab 50 Mg Tab) 100 mg PO TID [facility] Stop: 09/12/23 08:59 Last Admin: 08/13/23 20:44 Dose: 100 mg Documented By: JOSE ELIAS Admin: 08/13/23 15:17 Dose: 100 mg Documented By: Admin: 08/13/23 10:56 Dose: Not Given Documented By: SAMANTHA Insulin Aspart (Insulin Aspart Per Unit Charge) 0 units SC ACHS [facility] Stop: 09/12/23 16:59 Last Admin: 08/13/23 20:51 Dose: 5 units Documented By: JOSE ELIAS Co-signed By: ANOOP Admin: 08/13/23 17:26 Dose: 10 units Documented By: MADDIE Co-signed By: TENA Isosorbide Dinitrate (Isosorbide Dinitrate 10 Mg Tab) 30 mg PO 0700,1200,1700 [facility] Stop: 09/12/23 06:59 Last Admin: 08/13/23 17:23 Dose: 30 mg Documented By: Admin: 08/13/23 15:46 Dose: Not Given Documented By: Admin: 08/13/23 07:43 Dose: 30 mg Documented By: SAMANTHA Labetalol HCl (Labetalol Hcl 100 Mg Tab) 100 mg PO BID [facility] Stop: 09/12/23 08:59 Last Admin: 08/13/23 20:43 Dose: 100 mg Documented By: JOSE ELIAS Admin: 08/13/23 07:42 Dose: 100 mg Documented By: SAMANTHA Lisinopril (Lisinopril 20 Mg Tab) 20 mg PO BID [facility] Stop: 09/12/23 08:59 Last Admin: 08/13/23 20:43 Dose: 20 mg Documented By: JOSE ELIAS Admin: 08/13/23 10:37 Dose: 20 mg Documented By: SAMANTHA Loratadine (Loratadine 10 Mg Tab) 10 mg PO HS [facility] Stop: 09/11/23 23:46 Last Admin: 08/13/23 20:43 Dose: 10 mg Documented By: JOSE ELIAS Admin: 08/13/23 00:52 Dose: 10 mg Documented By: ONEYDA Sertraline HCl (Sertraline Hcl 50 Mg Tablet) 25 mg PO QAM [facility] Stop: 09/12/23 08:59 Last Admin: 08/13/23 10:36 Dose: 25 mg Documented By: SAMANTHA Discontinued Medications Amlodipine Besylate (Amlodipine Besylate 5 Mg Tab) 2.5 mg PO NOW STA Stop: 08/13/23 00:46 Last Admin: 08/13/23 00:52 Dose: 2.5 mg Documented By: ONEYDA Amlodipine Besylate (Amlodipine Besylate 5 Mg Tab) 2.5 mg PO NOW STA Stop: 08/13/23 05:38 Last Admin: 08/13/23 06:04 Dose: 2.5 mg Documented By: ONEYDA Hydralazine HCl (Hydralazine Hcl 20 Mg/Ml Vial) 5 mg IV NOW ONE Stop: 08/12/23 19:54 Last Admin: 08/12/23 20:03 Dose: 5 mg Documented By: ZACH Hydralazine HCl (Hydralazine Hcl 20 Mg/Ml Vial) 5 mg IV NOW ONE Stop: 08/12/23 20:23 Last Admin: 08/12/23 20:34 Dose: 5 mg Documented By: ONEYDA Hydralazine HCl (Hydralazine Hcl 20 Mg/Ml Vial) 10 mg IV NOW STA Stop: 08/12/23 21:05 Last Admin: 08/12/23 21:08 Dose: 10 mg Documented By: ZACH Hydralazine HCl (Hydralazine Hcl 20 Mg/Ml Vial) 10 mg IV NOW STA Stop: 08/13/23 05:03 Last Admin: 08/13/23 05:06 Dose: 10 mg Documented By: ONEYDA Sodium Chloride (Nss) 500 mls @ 80 mls/hr IV .Q6H15M [facility] Stop: 09/11/23 19:59 Last Infusion: 08/13/23 00:24 Dose: Infused Documented By: Admin: 08/12/23 20:02 Dose: 80 mls/hr Documented By: ZACH Acetaminophen (Ofirmev) 1,000 mg in 100 mls @ 400 mls/hr IV NOW STA Stop: 08/12/23 21:29 Last Infusion: 08/12/23 21:59 Dose: Infused Documented By: Admin: 08/12/23 21:23 Dose: 400 mls/hr Documented By: ONEYDA Sodium Chloride (Nss) 500 mls @ 40 mls/hr IV .[id number] [facility] Stop: 08/13/23 10:00 Last Infusion: 08/13/23 07:25 Dose: Infused Documented By: Admin: 08/13/23 00:24 Dose: 40 mls/hr Documented By: SONJA Insulin Aspart (Insulin Aspart Per Unit Charge) 0 units SC Q6 [facility] Stop: 09/12/23 00:00 Last Admin: 08/13/23 14:14 Dose: 6 units Documented By: BART Co-signed By: SAMANTHA Admin: 08/13/23 06:14 Dose: Not Given Documented By: ONEYDA Co-signed By: ZACH Admin: 08/13/23 00:24 Dose: 2 units Documented By: SONJA Co-signed By: ONEYDA Insulin Glargine (Lantus Per Unit Charge) 5 units SQ DAILY [facility] Stop: 09/12/23 08:59 Last Admin: 08/13/23 10:37 Dose: 5 units Documented By: SAMANTHA Co-signed By: EDGARD Insulin Glargine (Lantus Per Unit Charge) 10 units SQ NOW STA Stop: 08/13/23 19:20 Last Admin: 08/13/23 20:55 Dose: 10 units Documented By: JOSE ELIAS Co-signed By: ANOOP Lisinopril (Lisinopril 20 Mg Tab) 20 mg PO NOW STA Stop: 08/12/23 21:12 Last Admin: 08/12/23 21:20 Dose: 20 mg Documented By: ONEYDA Oxycodone HCl (Oxycodone Hcl Ir 5 Mg Tab (Immediate Release)) 5 mg PO NOW STA Stop: 08/12/23 22:07 Last Admin: 08/12/23 22:34 Dose: 5 mg Documented By: ONEYDA Verapamil HCl (Verapamil Hcl 180 Mg Tabcr) 180 mg PO NOW STA Stop: 08/12/23 21:12 Last Admin: 08/13/23 00:26 Dose: Not Given Documented By: SONJA Imaging Data Radiologist's Impression: Head CT 08/12/23 19:49 Exam(s): CT HEAD Without Contrast EXAM: CT Head Without Intravenous Contrast CLINICAL HISTORY: Reason for exam: vega, htn. TECHNIQUE: Axial computed tomography images of the head/brain without intravenous contrast. CTDI is 36.9 mGy and DLP is 625.8 mGy-cm. Automated exposure control was utilized for the study. A dose lowering technique was utilized adhering to the principles of ALARA. COMPARISON: 11/06/2021. FINDINGS: Brain: Mild generalized brain atrophy . Decreased attenuation within the deep white matter compatible with mild microangiopathic disease. No hemorrhage. Ventricles: Unremarkable. No ventriculomegaly. Bones/joints: Unremarkable. No acute fracture. Soft tissues: Unremarkable. Sinuses: Unremarkable as visualized. No acute sinusitis. Mastoid air cells: Unremarkable as visualized. No mastoid effusion. IMPRESSION: Chronic changes as described with no acute intracranial hemorrhage or space-occupying lesion. Electronically signed by: Crys Duff MD 08/12/23 21:01 PM Discharge Plan Visit Data Chief Complaint: Hypertension Stated Complaint: HYPERTENSION, DOESNT FEEL WELL ED Provider: Mamta Cruz Discharge Problem: Hypertension, uncontrolled, Elevated troponin, CKD (chronic kidney disease) Patient Disposition: Admitted As Inpatient Discharge Instructions Interventions: ED Discharge Assessment Last Done: 08/12/23 23:48
[2023-08-12] MEDS: SODIUM CHLORIDE 0.9% 500 ML IV SCH (20:02)
[2023-08-12] MEDS: hydrALAZINE HCL 20 MG/ML VIAL IV ONE ×2 (20:03→20:34)
[2023-08-12 20:29] LABS: Basophils # (auto) 0.05 K/uL (0.00-0.20); Basophils % (auto) 0.5 %; Eosinophils # (auto) 0.06 K/uL (0.00-0.50); Eosinophils % (auto) 0.6 %; Hematocrit (blood only) 37.4 % (37.0-47.0); Hemoglobin 12.7 g/dl (12.0-16.0); Immature Granulocytes # (auto) 0.03 K/uL (0.01-0.20); Immature Granulocytes % (auto) 0.3 %; Lymphocytes # (auto) 2.55 K/uL (1.20-3.40); Lymphocytes % (auto) 27.6 %; Mean Corpuscular Hemoglobin 32.6 pg (25.0-34.0); Mean Corpuscular Volume 95.9 fL (80.0-100.0); Mean Platelet Volume 9.8 fL (9.4-12.4); Monocytes % (auto) 10.8 %; Neutrophils # (auto) 5.56 K/uL (1.40-6.50); Neutrophils % (auto) 60.2 %; Platelet Count 274 K/uL (130-400); RDW Coefficient of Variation 12.9 % (11.5-14.5); RDW Standard Deviation 45.3 fL (36.4-46.3); White Blood Count 9.25 K/ul (4.8-10.8)
[2023-08-12 20:48] LABS: Albumin Globulin Ratio 1.1 (0.9-2); Albumin Level 4.2 gm/dl (3.4-5.0); BUN Creatinine Ratio 24.5 (10-20); Bilirubin,Total 0.4 mg/dl (0.2-1.0); Calcium 10.1 mg/dl (8.6-10.3); Creatinine Clr Calc Pharmacy 26.1 ml/min; Est GFR (African American) 34.1 ml/min; Est GFR (Non-African American) 29.4 ml/min; Globulin 3.9 gm/dl (2.5-4.0); Magnesium 1.7 mg/dl (1.7-2.4); Potassium 3.6 mmol/L (3.5-5.1); Total Protein 8.1 gm/dl (6.0-8.3)
--- NOTE | 2023-08-12 21:02 | CT Scan Report ---
Exam(s): CT HEAD Without Contrast EXAM: CT Head Without Intravenous Contrast CLINICAL HISTORY: Reason for exam: vega, htn. TECHNIQUE: Axial computed tomography images of the head/brain without intravenous contrast. CTDI is 36.9 mGy and DLP is 625.8 mGy-cm. Automated exposure control was utilized for the study. A dose lowering technique was utilized adhering to the principles of ALARA. COMPARISON: 11/06/2021. FINDINGS: Brain: Mild generalized brain atrophy . Decreased attenuation within the deep white matter compatible with mild microangiopathic disease. No hemorrhage. Ventricles: Unremarkable. No ventriculomegaly. Bones/joints: Unremarkable. No acute fracture. Soft tissues: Unremarkable. Sinuses: Unremarkable as visualized. No acute sinusitis. Mastoid air cells: Unremarkable as visualized. No mastoid effusion. IMPRESSION: Chronic changes as described with no acute intracranial hemorrhage or space-occupying lesion. Electronically signed by: Crys Duff MD 08/12/23 21:01 PM
[2023-08-12 21:03] LABS: Thyroid Stimulating Hormone 2.651 uIu/ml (0.300-4.500)
[2023-08-12 21:05] LABS: INR 0.9 (0.9-1.1); Prothrombin Time 10.4 Seconds (9.0-12.0)
[2023-08-12] MEDS: hydrALAZINE HCL 20 MG/ML VIAL IV STA (21:08)
[2023-08-12] MEDS: lisinopril 20 MG TAB PO STA (21:20)
[2023-08-12] MEDS: ACETAMINOPHEN 1,000 MG/100 ML VIAL IV STA (21:23)
[2023-08-12] MEDS ORDERED: PROMETHAZINE HCL 6.25 MG in SODIUM CHLORIDE 0.9% 50 ML IV PRN (21:35)
[2023-08-12] MEDS ORDERED: HYDROmorphone INJ 0.5 MG/0.5 ML SYR IV PRN (21:35)
[2023-08-12 21:39] LABS: Partial Thromboplastin Ratio 1.1; Partial Thromboplastin Time 31 Seconds (21-31)
--- NOTE | 2023-08-12 22:05 | History & Physical Report ---
Date of Service August 12, 2023 Assessment & Plan (1) Hypertensive crisis: Plan: History labile hypertension Suboptimal BP control at baseline over the last 6 months Chest pain secondary to above Rule out ACS given troponin elevation chronic diastolic heart failure (EF 70%, TTE 2021), patient euvolemic hx PVD hyperlipidemia on statin Rx DM 2, insulin requiring, well-controlled as of recent hemoglobin A1c of 6.05 April 2023 CRI, creatinine at baseline PCU Options somewhat limited given episodic bradycardia Change patient's Toprol-XL to labetalol Add amlodipine (dihydropyridine CCB) to patient's verapamil (nondihydropyridine CCB) Aspirin for CAD prevention Follow troponin TTE if with progression Cardiology consult Re: Hypertensive crisis, chest pain N.p.o. until patient seen by Cardiology in anticipation of ischemic workup Basal bolus insulin adjusted for n.p.o. status, ISS BG goal 1 10-1 40 DVT prophylaxis. Heparin subcu Full code Text document was generated using [employer] voice recognition software. It may contain grammatical or spelling errors. Kindly contact undersigned for clarification of any documentation item in question. History of Present Illness Chief Complaint: Chest heaviness, high blood pressure Primary Care Provider: Dalila Bauman MD History obtained from patient and records. Medical history significant for chronic diastolic heart failure (EF 70%, TTE 2021), PVD, hypertension, hyperlipidemia, DM 2 insulin requiring, CRI (baseline creatinine 1.7), chronic hyponatremia, MGUS, familial hypocalciuric hypercalcemia, mood disorder. Recurrent admissions last 2 years for hypertensive crisis. Last confinement September 2022. Isosorbide dinitrate dose increased, hydralazine added to patient's regimen. SBP 150 to 180s at home as per patient. SBP 190 to 200s on outpatient cardiology and PCP follow-up visits last year. Patient felt BP elevation situational and did not wish to make medication changes as per last outpatient [facility] cardiology note from April 2023. Patient seen on outpatient [facility] vascular surgery follow-up visit today. SBP noted to be 220s. Patient denies headache, chest pain, SOB, fluid retention. Patient compliant with home medications. Denies unusual stress. Denies OTC NSAID intake. Patient woke up at home not feeling well. Achy headache symptoms and chest heaviness with some radiation to the back. Blood pressure read as "high" on her machine. EMS called to patient's home. SBP noted to be 260s. Chest heaviness improved with aspirin and nitroglycerin administration. SBP 270s upon arrival at the ER. IV hydralazine and lisinopril administered at the ER. SBP currently 210s. 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 Allergies Allergy/AdvReac Type Severity Reaction Status Date / Time latex Allergy Severe DIFFICULTY Verified 08/12/23 21:08 BREATHING, TONGUE SWELLS Penicillins Allergy Severe DIFFICULTY Verified 08/12/23 21:08 BREATHING, TONGUE SWELLS Sulfa (Sulfonamide Allergy Severe DIFFICULTY Verified 08/12/23 21:08 Antibiotics) BREATHING, TONGUE SWELLS Home Medications Medication Instructions Recorded Confirmed Type acetaminophen 500 mg tablet 1,000 mg PO BID 10/31/21 08/12/23 History aspirin 81 mg tablet,delayed 81 mg PO QAM 10/31/21 08/12/23 History release cyanocobalamin (vitamin B-12) 1,000 mcg PO 3XWK 10/31/21 08/12/23 History 1,000 mcg tablet (Vitamin B-12) metoprolol succinate 100 mg 100 mg PO QAM 10/31/21 08/12/23 History tablet,extended release 24 hr repaglinide 2 mg tablet 2 mg PO AC 10/31/21 08/12/23 History sertraline 50 mg tablet 25 mg (1/2 x 50 mg) PO QAM #30 tabs 11/08/21 08/12/23 Rx verapamil 180 mg tablet,extended 180 mg PO QPM #30 tabs 11/08/21 08/12/23 Rx release linagliptin 5 mg tablet (Tradjenta) 5 mg PO DAILY 12/16/21 08/12/23 History loratadine 10 mg tablet 10 mg PO HS 12/16/21 08/12/23 History atorvastatin 80 mg tablet 80 mg PO HS 09/02/22 08/12/23 History empagliflozin 25 mg tablet 25 mg PO DAILY 09/02/22 08/12/23 History (Jardiance) isosorbide dinitrate 30 mg tablet 30 mg PO TID #90 tabs 09/04/22 08/12/23 Rx Prevagen 10 mg PO QPM 08/12/23 08/12/23 History coQ10 (ubiquinol) 200 mg capsule 200 mg PO DAILY 08/12/23 08/12/23 History furosemide 20 mg tablet 20 mg PO .[id number] 08/12/23 08/12/23 History hydralazine 100 mg tablet 100 mg PO TID 08/12/23 08/12/23 History insulin degludec 100 unit/mL (3 33 unit subcut QAM 08/12/23 08/12/23 History mL) subcutaneous pen (Tresiba FlexTouch U-100 insulin) insulin glargine 100 unit/mL 33 unit subcut DAILY 08/12/23 08/12/23 History subcutaneous solution (Lantus U-100 Insulin) lisinopril 20 mg tablet 20 mg PO BID 08/12/23 08/12/23 History melatonin 1 mg tablet 1 mg PO HS Sleep 08/12/23 08/12/23 History sazyzbxy-ejo-rwbtws 5 mg-zeaxanth 1 cap PO QID 08/12/23 08/12/23 History 1 mg-bilberry 7.5 mg-herbal capsule (charity: water Health Formula) Past Med/Surg History Medical History Anxiety CKD (chronic kidney disease) stage 3, GFR 30-59 ml/min Diabetes mellitus with kidney complication, without long-term current use of insulin DM2 (diabetes mellitus, type 2) H/O: HTN (hypertension) Headache Hypertensive urgency Tingling Surgical History Hx of cataract surgery Social History Smoking Status: Never smoker Second Hand Exposure: Yes; Do You Dip or Chew Tobacco: No; Hx Alcohol Use: Yes Alcohol type: beer and wine Hx Substance Use: No Preferred Language: Ukrainian Communication Ability: Effective Front Tender Required: No Beliefs That Will Affect Care: Spiritual marital status: / Current Living Situation: Alone Feels Safe at Home: Yes Assistive Devices: Walker Review of Systems Review of Systems: As per HPI, all other systems reviewed and negative Physical Exam Physical Exam: GENERAL: Slightly uncomfortable, pleasant, looks younger than stated age, anxious, obese, no respiratory distress SKIN: Normal color, warm HEENT: Wister palpebral conjunctivae, no ptosis, moist buccal mucosa NECK : Supple, short neck, no tenderness CHEST : CTA, no tenderness HEART : Bradycardic, no obvious murmurs ABDOMEN: Some distention, nontender EXTREMITIES : Minimal LE swelling, no LE tenderness, no other conspicuous deformities noted NEUROLOGIC : Coherent, no facial asymmetry, no other gross focality Results & Data Results & Data Vital Signs (Past 12 Hours) Vital Signs Temp Pulse Pulse Resp BP BP Pulse Ox 08/12/23 19:36 68 08/12/23 19:10 36.9 C 61 18 270/81 H 99 08/12/23 19:10 36.9 C 65 20 270/81 H 91 O2 Del Method 08/12/23 19:36 08/12/23 19:10 Room Air 08/12/23 19:10 Room Air Laboratory Results Laboratory Results WBC 9.25 K/ul (4.8-10.8) 08/12/23 20:02 RBC 3.90 M/uL (4.20-5.40) L 08/12/23 20:02 Hgb 12.7 g/dl (12.0-16.0) 08/12/23 20:02 Hct 37.4 % (37.0-47.0) 08/12/23 20:02 MCV 95.9 fL (80.0-100.0) 08/12/23 20:02 MCH 32.6 pg (25.0-34.0) 08/12/23 20:02 MCHC 34.0 g/dL (32.0-36.0) 08/12/23 20:02 RDW Std Deviation 45.3 fL (36.4-46.3) 08/12/23 20:02 RDW Coeff of Rojelio 12.9 % (11.5-14.5) 08/12/23 20:02 Plt Count 274 K/uL (130-400) 08/12/23 20:02 MPV 9.8 fL (9.4-12.4) 08/12/23 20:02 Immature Gran % (Auto) 0.3 % 08/12/23 20: Neut % (Auto) 60.2 % 08/12/23 20:02 Lymph % (Auto) 27.6 % 08/12/23 20:02 [place] % (Auto) 10.8 % 08/12/23 20:02 Eos % (Auto) 0.6 % 08/12/23 20:02 Baso % (Auto) 0.5 % 08/12/23 20:02 Neut # (Auto) 5.56 K/uL (1.40-6.50) 08/12/23 20:02 Lymph # (Auto) 2.55 K/uL (1.20-3.40) 08/12/23 20:02 [place] # (Auto) 1.00 K/uL (0.11-0.59) H 08/12/23 20:02 Eos # (Auto) 0.06 K/uL (0.00-0.50) 08/12/23 20:02 Baso # (Auto) 0.05 K/uL (0.00-0.20) 08/12/23 20:02 Immature Gran # (Auto) 0.03 K/uL (0.01-0.20) 08/12/23 20:02 PT 10.4 Seconds (9.0-12.0) 08/12/23 20:02 INR 0.9 (0.9-1.1) 08/12/23 20:02 APTT 31 Seconds (21-31) 08/12/23 20:02 PTT Ratio 1.1 08/12/23 20:02 Sodium 136 mmol/L (136-145) 08/12/23 20:02 Potassium 3.6 mmol/L (3.5-5.1) 08/12/23 20:02 Chloride 104 mmol/L (98-107) 08/12/23 20:02 Carbon Dioxide 23 mmol/L (21-32) 08/12/23 20:02 Anion Gap 9 (3-11) 08/12/23 20:02 BUN 38 mg/dl (6-23) H 08/12/23 20:02 Creatinine 1.55 mg/dl (0.6-1.2) H 08/12/23 20:02 Est Cr Clr Drug Dosing 26.1 ml/min 08/12/23 20:02 Est GFR ( Amer) 34.1 ml/min 08/12/23 20:02 Est GFR (Non-Af Amer) 29.4 ml/min 08/12/23 20:02 BUN/Creatinine Ratio 24.5 (10-20) H 08/12/23 20:02 Glucose 168 mg/dl (70-99(Fasting)) H 08/12/23 20:02 POC Glucose 158 mg/dl (70-99) H 08/12/23 19:37 Calcium 10.1 mg/dl (8.6-10.3) 08/12/23 20:02 Magnesium 1.7 mg/dl (1.7-2.4) 08/12/23 20:02 Total Bilirubin 0.4 mg/dl (0.2-1.0) 08/12/23 20:02 AST 20 U/L (13-39) 08/12/23 20:02 ALT 20 U/L (7-52) 08/12/23 20:02 Alkaline Phosphatase 47 U/L (34-104) 08/12/23 20:02 Troponin I High Sens 20.0 pg/ml (0-14) H 08/12/23 20:02 Total Protein 8.1 gm/dl (6.0-8.3) 08/12/23 20:02 Albumin 4.2 gm/dl (3.4-5.0) 08/12/23 20:02 Globulin 3.9 gm/dl (2.5-4.0) 08/12/23 20:02 Albumin/Globulin Ratio 1.1 (0.9-2) 08/12/23 20:02 Lipase 31 U/L (11-82) 08/12/23 20:02 TSH 2.651 uIu/ml (0.300-4.500) 08/12/23 20:[address] 08/12/23 19:49 Exam(s): CT HEAD Without Contrast EXAM: CT Head Without Intravenous Contrast CLINICAL HISTORY: Reason for exam: vega, htn. TECHNIQUE: Axial computed tomography images of the head/brain without intravenous contrast. CTDI is 36.9 mGy and DLP is 625.8 mGy-cm. Automated exposure control was utilized for the study. A dose lowering technique was utilized adhering to the principles of ALARA. COMPARISON: 11/06/2021. FINDINGS: Brain: Mild generalized brain atrophy . Decreased attenuation within the deep white matter compatible with mild microangiopathic disease. No hemorrhage. Ventricles: Unremarkable. No ventriculomegaly. Bones/joints: Unremarkable. No acute fracture. Soft tissues: Unremarkable. Sinuses: Unremarkable as visualized. No acute sinusitis. Mastoid air cells: Unremarkable as visualized. No mastoid effusion. IMPRESSION: Chronic changes as described with no acute intracranial hemorrhage or space-occupying lesion. Electronically signed by: Crys Duff MD 08/12/23 21:01 PM Diagnostic Findings Chest x-ray as per my interpretation cardiomegaly EKG as per my interpretation : Rate 65, junctional rhythm
[2023-08-12] MEDS: oxyCODONE HCL IR 5 MG TAB (IMMEDIATE RELEASE) PO STA (22:34)
[2023-08-12] MEDS ORDERED: GLUCOSE 40% GEL 15 GM TUBE PO PRN (23:47)
[2023-08-12] MEDS ORDERED: NITROGLYCERIN SL 0.4 MG/TAB TAB SL PRN (23:47)
[2023-08-12] MEDS ORDERED: GLUCAGON FOR INJ 1 MG VIAL SQ PRN (23:47)
[2023-08-12] MEDS ORDERED: DEXTROSE 50% 50 ML SYRINGE IV PRN (23:47)
[2023-08-12] MEDS ORDERED: GLUCOSE 10 TAB/TUBE PO PRN (23:47)
[2023-08-12] MEDS ORDERED: CARBOHYDRATES FOR HYPOGLYCEMIA PO PRN (23:47)
[2023-08-13] MEDS: INSULIN ASPART PER UNIT CHARGE SC SCH ×2 (00:24→17:26)
[2023-08-13] MEDS: SODIUM CHLORIDE 0.9% 500 ML IV STA (00:24)
[2023-08-13] MEDS: VERAPAMIL HCL 180 MG TABCR PO STA (00:26)
[2023-08-13] MEDS: amLODIPine BESYLATE 5 MG TAB PO STA ×2 (00:52→06:04)
[2023-08-13] MEDS: LORATADINE 10 MG TAB PO SCH (00:52)
[2023-08-13] MEDS: hydrALAZINE HCL 20 MG/ML VIAL IV STA (05:06)
[2023-08-13] MEDS: HEPARIN SOD 5,000 UNIT/0.5 ML VIAL SQ SCH (06:05)
--- OUTSIDE RECORDS SUMMARY | 2023-08-13 06:44 | External Medical Summary | Summary of Care ---
Author Name Unknown Organization [facility] [address] [facility] [address] Phone [phone] Care Team Providers Care Gut Dropper Name Role Phone Dalila Bauman MD Primary Care Provider [phone] Encounter Details Date Type Department Care Team (Late st Contact Info) Description 07/31/2023 Orders Only General Internal Medicine [facility] [place] [address] [facility] [place] [address] Dalila Bauman MD [address] [facility] [address] Allergies Active Allergy Reactions Criticality Noted Date Comments Latex 01/09/2021 Penicillins 01/09/2021 Sulfa Antibiotics 01/09/2021 documented as of this encounter (statuses as of 07/31/2023) Medications Medication Sig Dispensed Refills Start Date End Date Status Aspirin EC 81 MG Oral Tablet Delayed ReleaseIndications: Type 2 diabetes mellitus with retinopathy of both eyes, without long-term current use of insulin, macular edema presence unspecified, unspecified retinopathy severity (HCC),Dyslipidemia, goal LDL below 100 Take 1 Tablet by mouth in the morning. 100 Tab 3 01/09/2021 Active Prodigy Voice Blood Glucose w/Device KitIndications:Type 2 diabetes mellitus with hemoglobin A1c goal of less than 8.0% (HCC) Use to test blood glucose 3 times daily. DX: E11.9. 1 Kit 0 07/15/2021 Active FreeStyle Jimmy 2 SensorIndications:T ype 2 diabetes mellitus with hemoglobin A1c goal of less than 8.0% (HCC) Use as directed every 14 days . Change every 14 weeks 2 Each 11 08/23/2021 Active Acetaminophen 500 MG Oral Tablet (Tylenol) Take by mouth 2 Tablets every 8 hours as needed for Pain, Moderate. STOP ibuprofen 09/13/2021 100 Tablet 0 09/13/2021 Active Additional Information Patient taking differently:1,000 mg OralBID (.AM/PM), STOP ibuprofen 09/13/2021, Reported on 08/28/2022 NATURAL SUPPLEMENT Take by mouth 4 Tablets daily . Macuhealth Plus 0 Active Insulin Pen Needle 32G X 6 MMIndications:Type 2 diabetes mellitus with hemoglobin A1c goal of less than 8.0% ([facility]) Use with Lantus once daily 100 Each 3 09/02/2022 Active Prodigy No Coding Blood Gluc In Vitro Strip (Glucose Blood)Indications:T ype 2 diabetes mellitus with hemoglobin A1c goal of less than 8.0% ([facility]) Use to test blood glucose 3 times daily as directed. 300 Strip 3 09/02/2022 Active Prevagen 10 MG Oral Capsule (Apoaequorin) Take by mouth every evening. 0 Active Furosemide 20 MG Oral Tablet (Lasix)Indications: Type 2 diabetes mellitus with stage 3b chronic kidney disease, without long-term current use of insulin ([facility]),HTN, goal below 150/90,Bilateral leg edema Take 1 to 2 tablets per week. 45 Tablet 3 09/24/2022 Active Lisinopril 20 MG Oral Tablet (Prinivil)Indicatio ns:Type 2 diabetes mellitus with stage 3b chronic kidney disease, without long-term current use of insulin ([facility]),HTN, goal below 150/90,History of hypertensive crisis Take 1 Tablet by mouth in the morning and 1 Tablet in the evening. 180 Tablet 3 09/24/2022 Active Isosorbide Dinitrate 30 MG Oral Tablet Take 1 Tablet by mouth in the morning and 1 Tablet at noon and 1 Tablet before bedtime. 270 Tablet 3 09/24/2022 Active Vitamin B-12 1000 MCG Oral Tablet (Cyanocobalamin)Ind ications:Type 2 diabetes mellitus with stage 3b chronic kidney disease, without long-term current use of insulin ([facility]) 1 tab on odd days only, start 06/13/2021--dec 3d/wk 10/18/2021 45 Tablet 3 10/13/2022 Active CoQ10 200 MG Oral Capsule Take by mouth. 0 Active Repaglinide 2 MG Oral Tablet (Prandin)Indication s:Type 2 diabetes mellitus with hemoglobin A1c goal of less than 8.0% (HCC) take 1 tablet by mouth three times a day BEFORE MEALS Strength: 2 mg 270 Tablet 3 2023 Active Sertraline HCl 50 MG Oral Tablet (Zoloft) TAKE 1/2 A TABLET BY MOUTH EVERY MORNING 45 Tablet 3 03/02/2023 Active Atorvastatin Calcium 80 MG Oral Tablet (Lipitor)Indication s:Renal artery stenosis (HCC),Carotid stenosis, asymptomatic, right,Dyslipidemia, goal LDL below 70 take 1 tablet by mouth at bedtime INCREASE 11/13/2021 90 Tablet 2 04/13/2023 Active Tresiba FlexTouch 100 UNIT/ML Subcutaneous Solution Pen-injector (Insulin Degludec)Indication s:Type 2 diabetes mellitus with hemoglobin A1c goal of less than 8.0% ([facility]) Inject 33 Units under the skin in the morning. 5 Each 3 05/04/2023 Active Additional Information Patient not taking.Reported on 05/04/2023 Melatonin ER 1 MG Oral Tablet Extended ReleaseIndications: Other insomnia daily1 tab at bedtime daily, if not improved may increase upto 5 mg daily 90 Tablet 1 05/04/2023 Active Metoprolol Succinate ER 100 MG Oral Tablet Extended Release 24 Hour (toPROL XL)Indications:HTN, goal below 150/90 take 1 tablet by mouth once daily 90 Tablet 3 05/07/2023 Active Verapamil HCl ER 180 MG Oral Tablet Extended Release (Isoptin SR)Indications:HTN, goal below 150/90,Type 2 diabetes mellitus with stage 3b chronic kidney disease, without long-term current use of insulin (HCC) take 1 tablet by mouth every evening 90 Tablet 1 05/14/2023 Active Tradjenta 5 MG Oral Tablet (linaGLIPtin)Indica tions:Type 2 diabetes mellitus with retinopathy of both eyes, without long-term current use of insulin, macular edema presence unspecified, unspecified retinopathy severity (HCC) take 1 tablet by mouth daily 90 Tablet 1 05/20/2023 Active Loratadine 10 MG Oral Tablet (Claritin)Indicatio ns:Seasonal allergic rhinitis due to pollen,Mucous retention cyst of maxillary sinus take 1 tablet by mouth at bedtime 90 Tablet 3 05/26/2023 Active hydrALAZINE HCl 100 MG Oral TabletIndications:H TN, goal below 150/90,Type 2 diabetes mellitus with stage 3b chronic kidney disease, without long-term current use of insulin (HCC) Take 1 Tablet by mouth in the morning and 1 Tablet at noon and 1 Tablet before bedtime. 270 Tablet 3 06/08/2023 Active Insulin Glargine Solostar 100 UNIT/ML Subcutaneous Solution Pen-injector (Lantus SoloStar)Indication s:Type 2 diabetes mellitus with hemoglobin A1c goal of less than 8.0% (HCC) Inject 33 Units under the skin daily. 30 mL 0 06/08/2023 Active Empagliflozin 25 MG Oral Tablet (Jardiance)Indicati ons:Type 2 diabetes mellitus with stage 3b chronic kidney disease, without long-term current use of insulin (HCC) Take 1 Tablet by mouth in the morning. 90 Tablet 3 06/08/2023 Active Prodigy Lancets 28GIndications:Type 2 diabetes mellitus with hemoglobin A1c goal of less than 8.0% ([facility]) Use to test blood glucose 3 times daily. DX: E11.9 300 Each 3 07/02/2023 Active documented as of this encounter (statuses as of 07/31/2023) Active Problems Problem Noted Date Diagnosed Date Chronic kidney disease, stage 4 (severe) 023 Overview: Per CKD protocol Hypertensive heart disease w ith chronic diastolic congestive heart failure 05/12/2023 MGUS (monoclonal gammopathy of unknown significa nce) 09/12/2022 Overview: 09/25-- -A monoclonal IgG kappa gammopathy is present. Submit urine soon; refer to Hematology for evaluation as discussed. Senile osteoporosis 04/23/2022 Type 2 diabetes mellitus wit h stage 4 chronic kidney disease, with long-term current use of insulin 03/17/2022 Overview: Per CKD protocol Renal artery stenosis 11/13/2021 Carotid stenosis, asymptomatic, right 11/13/2021 FHH (familial hypocalciuric hypercalcemia) 11/13 History of 2019 novel coronavirus disease (COVID -19) 10/16/2021 S/P bilateral cataract extraction 10/16/2021 HTN, goal below 150/90 07/26/2021 Dyslipidemia, goal LDL below 70 07/26/2021 Adjustment disorder with anxious mood 07/26/2021 B12 deficiency 07/26/2021 Type 2 diabetes mellitus wit h hemoglobin A1c goal of less than 8.0% 07/02/2021 documented as of this encounter (statuses as of 07/31/2023) Resolved Problems Problem Noted Date Diagnosed Date Resolved Date Chronic kidney disease, stage 3b 03/17/2022 05/21/2023 Overview: Per CKD protocol Type 2 diabetes mellitus wit h stage 3b chronic kidney disease, without long-term current use of insulin 07/26/2021 03/20/2022 Overview: Per CKD protocol documented as of this encounter (statuses as of 07/31/2023) Immunizations Name Administration Dates Next Due COVID-19 mRNA, LNP-s, No Pre serve, 2-Dose Series (Moderna) 12/11/2020,11/13/2020 COVID-19, LNP-s, No Preserve , Michel-sucrose, Ages 12+ (Pfizer) 12/18/2021 COVID-19, mRNA, LNP-s, PF, B ooster, 100mcg/0.5mg (Moderna) 07/11/2021 documented as of this encounter Social History Tobacco Use Types Packs/Day Years Used Date Smoking Tobacco: Never Smokeless Tobacco: Never Alcohol Use Standard Drinks/Week Comments Yes 2 (1 standard drink = 0.6 oz pur e alcohol) AUDIT-C Answer Date Recorded Q1: How often do you have a drink containing alc ohol? 2-3 times a week 07/11/2021 Q2: How many drinks containi ng alcohol do you have on a typical day when you are drinking? 1 or 2 07/11/2021 Q3: How often do you have si x or more drinks on one occasion? Never 07/11/2021 PHQ-2 Answer Date Recorded PHQ Adult Total Score 0 10/24/2022 Hunger Vital Sign Answer Date Recorded Within the past 12 months, y ou worried that your food would run out before you got the money to buy more. Never true 12/31/19 23 Within the past 12 months, t he food you bought just didn't last and you didn't have money to get more. Never true 12/30/2022 Sex and Gender Information Value Date Recorded Sex Assigned at Not on file Gender Identity Not on file Sexual Orientation Not on file Job Start Date Occupation Industry Not on file Not on file Not on file documented as of this encounter Plan of Treatment Upcoming Encounters Date Type Department Care Team (Late st Contact Info) Description 08/07/2023 1:00 PM EST [facility] [address] [facility] [place] [address] 08/12/2023 2:10 PM EST Office Visit Vascular Surgery, [facility] [address] [place] [address] Francesco Cohen MD [address] [place] [address] 09/11/2023 3:30 PM EST Office Visit Pharmacy, [facility] [place] [address] [place] [address] Pharmacist1, [facility] [address] [facility] [place] [address] 09/11/2023 4:00 PM EST Office Visit Nephrology, [facility] [address] [place] [address] Cornel Smith MD [address] [place] [id number] 10/29/2023 1:30 PM EDT Laboratory Laboratory [facility] [place] [address] [place] [id number] [place] [facility] [address] [facility] [place] [address] 11/03/2023 2:00 PM EDT Office Visit General Internal Medicine [facility] [place] [address] [place] [address] [address] Dalila Bauman MD [address] [facility] [place] [address] 11/10/2023 3:00 PM EDT Office Visit Hematology/Oncology [facility] [place] [address] [place] [address] [address] Joshua Nunez MD [address] [facility] [place] [address] Health Maintenance Due Date Last Done Comments Pneumococcal Vaccine: 65+ Years (1 - PCV) 02/18/1941 DTaP,Tdap,and Td Vaccines (1 - Tdap) 1953 Zoster Vaccines (1 of 2) 02/18/1984 Hepatitis B (1 of 3 - Risk 3-dose series) 1994 Diabetic Foot Exam 10/16/2022 10/16/2021 COVID-19 Vaccine ( season) 2023 12/18/2021, 07/11/2021, 12/11/2020, Additional history exists Influenza Vaccine (FLU shot) (#1) 2023 Albumin/Creatinine Ratio 09/01/2023 09/01/2022, 07/07 Depression Screening 10/25/2023 10/24/2022 HbA1c 10/30/2023 04/30/2023, 12/04, 09/01/2022, Additional history exists PTH 12/20/2023 12/19/2022, 03/07, 11/11/2021, Additional history exists Phosphate 12/20/2023 12/19/2022, 10/05, 03/25/2022, Additional history exists Nephrology Referral 02/20/2024 02/19/2023 DXA Scan 03/17/2024 03/17/2022, 03/17/2022 Hgb 05/04/2024 05/04/2023, 12/04, 09/01/2022, Additional history exists Diabetic Eye Exam 07/31/2024 07/30/2023, , 12/10/2022, Additional history exists VITAMIN D LEVEL ONCE IN A LIFETIME-USE SMARTSET# [id number] Completed 12/19/2022, 03/25/2022, 11/11/2021, Additional history exists GARDASIL-HPV IMMUNIZATION SERIES Aged Out No longer eligible based on patient's age to complete this topic MENINGOCOCCAL (MENACTRA/MENVEO) Aged Out No longer eligible based on patient's age to complete this topic documented as of this encounter Medical Devices Implanted Type Area Aircraft Technician Device Identifier Shelf Expiration Date Model / Serial / Lot Lens Intraoc 25.0 - [id number] - [id number] Implanted:Qty: 1 on 09/03/2021 by Deon Griffin MD at [facility] Left: Eye [employer] 10/02/2025 [id number] / [id number] / [id number] Lens Intraoc 26.0 - [id number] - [id number] Implanted:Qty: 1 on 09/17/2021 by Deon Griffin MD at OR [facility] Right: Eye [employer] 10/03/2025 [id number] / [id number] / [id number] documented as of this encounter Procedures Procedure Name Priority Date/Time Associated Diagnosis Comments DIABETIC EYE EXAM Routine 07/30/2023 documented in this encounter Results * DIABETIC EYE EXAM (07/30/2023) 07/30/2023 History Per Patient OTHER OUTSIDE LAB (SEE SCANNED REPORT) documented in this encounter Care Teams Gut Dropper Relationship Specialty Start Date End Date Dalila Bauman MD [address] [place] [address] PCP - General Internal Medicine 01/09/21 documented as of this encounter
--- OUTSIDE RECORDS SUMMARY | 2023-08-13 06:44 | External Medical Summary | Summary of Care ---
Author Name Unknown Organization [facility] Address [address] [place] [address] Phone [phone] Care Team Providers Care All Around Presser Name Role Phone Dalila Bauman MD Primary Care Provider [phone] Reason for Visit * Reason Onset Date Comments Order Request 07/29/2023 Encounter Details Date Type Department Care Team (Late st Contact Info) Description 07/29/2023 Telephone Vascular Surg [facility] [address], [place] [id number] Francesco Cohen MD [address] [place] [address] Order Request Allergies Active Allergy Reactions Criticality Noted Date [...] . Change every 14 weeks 2 Each 08/23/2021 Active Acetaminophen 500 MG Oral Tablet [...] hemoglobin A1c goal of less than 8.0% ([facility]) Use with Lantus once daily 100 Each 3 09/02/2022 Active Prodigy No Coding Blood Gluc In Vitro Strip (Glucose Blood)Indications:T ype 2 diabetes mellitus with hemoglobin A1c goal of less than 8.0% ([facility]) Use to test blood glucose 3 times daily as directed. 300 Strip 3 09/02/2022 Active Prevagen 10 MG Oral Capsule (Apoaequorin) Take by mouth every evening. 0 Active Furosemide 20 MG Oral Tablet (Lasix)Indications: Type 2 diabetes mellitus with stage 3b chronic kidney disease, without long-term current use of insulin ([facility]),HTN, goal below 150/90,Bilateral leg edema Take 1 to 2 tablets per week. 45 Tablet 3 09/24/2022 Active Lisinopril 20 MG Oral Tablet (Prinivil)Indicatio ns:Type 2 diabetes mellitus with stage 3b chronic kidney disease, without long-term current use of insulin ([facility]),HTN, goal below 150/90,History of hypertensive crisis Take [...] disease, without long-term current use of insulin ([facility]) 1 tab on odd days only, start 06/13/2021--dec 3d/wk 10/18/2021 45 Tablet 3 10/13/2022 Active CoQ10 200 MG Oral Capsule Take by mouth. 0 Active Repaglinide 2 MG Oral Tablet (Prandin)Indication s:Type 2 diabetes mellitus with hemoglobin A1c goal of less than 8.0% ([facility]) take 1 tablet by mouth three times [...] hemoglobin A1c goal of less than 8.0% ([facility]) Inject 33 Units under the skin in [...] LNP-s, No Preserve , Michel-sucrose, Ages 12+ ([employer] 12/18/2021 COVID-19, mRNA, LNP-s, PF, B ooster, [...] on file documented as of this encounter Miscellaneous Notes * Addendum Note - Sofya Mota LPN - 07/31/2023 8:53 AM ESTAddended by: SOFYA MOTA on: 07/31/2023 08:53 AM Modules accepted: Orders * Telephone Encounter - Sofya Mota LPN - 07/31/2023 8:51 AM EST Pt was last seen on 04/06/22 in [facility] with Dr. Cohen and plan was to f/u in 1 year with carotid. New order pended. Please review and sign if appropriate. Sofya Mota LPN 07/31/2023 8:52 AM * Telephone Encounter - Berenice Longoria OSA - 07/29/2023 9:52 AM EST Pt is scheduled for a vasc duplex of the carotid and needs a new order placed as the old one documented in this encounter Plan of Treatment Upcoming Encounters Date Type Department Care Team (Late st Contact Info) Description 08/07/2023 1:00 PM EST Imaging Vascular Lab, [facility] 2nd Floor, [place] [address] [facility] [place] [address] 08/12/2023 2:10 PM EST Office Visit Vascular Surgery, [facility] [address] [facility] [place] [address] Frances[facility] [address] [facility] [address] 09/11/2023 3:30 PM EST Office Visit Pharmacy, [facility] [address] [place] [address] Pharmacist1, [facility] [address] [place] [address] 09/11/2023 4:00 PM EST Office Visit Nephrology, [facility] [address] [address] Cornel Smith MD [address] [place] [address] 10/29/2023 1:30 PM EDT Laboratory Laboratory [facility] [address] [place] [id number] [facility] [address] [place] [address] 11/03/2023 2:00 PM EDT Office Visit General Internal Medicine [facility] [address] [address] Dalila Bauman MD [address] [place] [address] 11/10/2023 3:00 PM EDT Office Visit Hematology/Oncology [facility] [address] [place] [address] Joshua Nunez MD [address] [place] [address] Health Maintenance Due Date Last Done Comments Pneumococcal Vaccine: 65+ Years (1 - PCV) 02/18/1941 DTaP,Tdap,and Td Vaccines (1 - Tdap) 1953 Zoster Vaccines (1 of 2) 02/18/1984 Hepatitis B (1 of 3 - Risk 3-dose series) 1994 Diabetic Foot Exam 10/16/2022 10/16/2021 COVID-19 Vaccine ( - 2022-24 season) 2023 12/18/2021, 07/11/2021, 12/11/2020, Additional history exists Influenza Vaccine (FLU shot) (#1) 2023 Albumin/Creatinine Ratio 09/01/2023 09/01/2022, 07/07 Depression Screening 10/25/2023 10/24/2022 HbA1c 10/30/2023 04/30/2023, 12/04, 09/01/2022, Additional history exists Diabetic Eye Exam 12/11/2023 12/10/2022, , 12/10/2022, Additional history exists PTH 12/20/2023 12/19/2022, 03/07, 11/11/2021, Additional history exists Phosphate 12/20/2023 12/19/2022, 10/05, 03/25/2022, Additional history exists Nephrology Referral 02/20/2024 02/19/2023 DXA Scan 03/17/2024 03/17/2022, 03/17/2022 Hgb 05/04/2024 05/04/2023, 12/04, 09/01/2022, Additional history exists VITAMIN D LEVEL ONCE IN A LIFETIME-USE SMARTSET# [id number] Completed 12/19/2022, 03/25/2022, 11/11/2021, Additional history exists GARDASIL-HPV IMMUNIZATION SERIES Aged Out No longer eligible based on patient's age to complete this topic MENINGOCOCCAL (MENACTRA/MENVEO) Aged Out No longer eligible based on patient's age to complete this topic documented as of this encounter Medical Devices Implanted Type Area Level Vial Setter Device Identifier Shelf Expiration Date Model / Serial / Lot Lens Intraoc 25.0 - [id number] - [id number] Implanted:Qty: 1 on 09/03/2021 by Deon Griffin MD at OR [facility] Left: Eye [employer] 10/02/2025 [id number] / [id number] / [id number] Lens Intraoc 26.0 - [id number] - [id number] Implanted:Qty: 1 on 09/17/2021 by Deon Griffin MD at OR [facility] Right: Eye [employer]OM[employer] 10/03/2025 [id number] / [id number] / [id number] documented as of this encounter Visit Diagnoses Diagnosis Carotid stenosis, non-symptomatic, bilateral- Primary documented in this encounter Care Teams All Around Presser Relationship Specialty Start Date End Date Dalila Bauman MD [address] [facility] [place] [address] PCP - General Internal Medicine 01/09/21 documented as of this encounter
--- OUTSIDE RECORDS SUMMARY | 2023-08-13 06:44 | External Medical Summary | Summary of Care ---
Author Name Unknown Organization [facility] Address [address] [place] [address] Phone [phone] Care Team Providers Care Digital Computer Operator Name Role Phone Dalila Bauman MD Primary Care Provider [phone] Reason for Visit * Reason Onset Date Comments Order Request 07/29/2023 Encounter Details Date Type Department Care Team (Late st Contact Info) Description 07/29/2023 Telephone Vascular Surg [facility] [address], [place] [phone] Francesco Cohen MD [address] [place] [address] Order Request Allergies Active Allergy [...] hemoglobin A1c goal of less than 8.0% ([facility]) Use with Lantus once daily 100 Each 3 09/02/2022 Active Prodigy No Coding Blood Gluc In Vitro Strip (Glucose Blood)Indications:T ype 2 diabetes mellitus with hemoglobin A1c goal of less than 8.0% ([facility]) Use to test blood glucose 3 times daily as directed. 300 Strip 3 09/02/2022 Active Prevagen 10 MG Oral Capsule (Apoaequorin) Take by mouth every evening. 0 Active Furosemide 20 MG Oral Tablet (Lasix)Indications: Type 2 diabetes mellitus with stage 3b chronic kidney disease, without long-term current use of insulin ([facility]),HTN, goal below 150/90,Bilateral leg edema Take 1 to 2 tablets per week. 45 Tablet 3 09/24/2022 Active Lisinopril 20 MG Oral Tablet (Prinivil)Indicatio ns:Type 2 diabetes mellitus with stage 3b chronic kidney disease, without long-term current use of insulin ([facility]),HTN, goal below 150/90,History of hypertensive crisis Take [...] disease, without long-term current use of insulin ([facility]) 1 tab on odd days only, start 06/13/2021--dec 3d/wk 10/18/2021 45 Tablet 3 10/13/2022 Active CoQ10 200 MG Oral Capsule Take by mouth. 0 Active Repaglinide 2 MG Oral Tablet (Prandin)Indication s:Type 2 diabetes mellitus with hemoglobin A1c goal of less than 8.0% ([facility]) take 1 tablet by mouth three times [...] hemoglobin A1c goal of less than 8.0% ([facility]) Inject 33 Units under the skin in [...] LNP-s, No Preserve , Michel-sucrose, Ages 12+ ([employer] 12/18/2021 COVID-19, mRNA, LNP-s, PF, B [...] encounter Miscellaneous Notes * Addendum Note - Frank Yuan CRNP - 07/31/2023 8:55 AM ESTAddended by: FRANK YUAN on: 07/31/2023 08:55 AM Modules accepted: Orders * Telephone Encounter - Frank Yuan CRNP - 07/31/2023 8:55 AM EST Signed as requested * Addendum Note - Sofya Mota LPN - 07/31/2023 8:53 AM ESTAddended by: SOFYA MOTA on: 07/31/2023 08:53 AM Modules accepted: Orders * Telephone Encounter - Sofya Mota LPN - 07/31/2023 8:51 AM EST Pt was last seen on 04/06/[address] [facility] with Dr. Cohen and plan was to [...] 08/07/2023 1:00 PM EST [facility] [address] [facility] [place] [address] 08/12/2023 2:10 PM EST Office Visit Vascular Surgery, [facility] [address] [facility] [place] [address] Francesco Cohen MD [address] [place] [address] 09/11/2023 3:30 PM EST Office Visit Pharmacy, [facility] [address] [place] [address] Pharmacist1, [facility] [address] [place] [address] [address] 09/11/2023 4:00 PM EST Office Visit Nephrology, [facility] [address] [place] [address] Cornel Smith MD [address] [place] [address] 10/29/2023 1:30 PM EDT Laboratory Laboratory [facility] [address] [phone] [facility] [address] [place] [address] 11/03/2023 2:00 PM EDT Office Visit General Internal Medicine [facility] [address] [place] [address] [address] Dalila Bauman MD [address] [place] [address] 11/10/2023 3:00 PM EDT Office Visit Hematology/Oncology [facility] [address] [place] [address] Joshua Nunez MD [address] [facility] [place] [address] Scheduled Orders Name Type Priority Associated Diagnoses Orde r Schedule VASC DUPLEX CAROTID BILAT Medical Imaging Routine Carotid stenosis, non-symptomatic, bilateral Ordered: 07/31/2023 Health Maintenance Due Date Last Done Comments [...] D LEVEL ONCE IN A LIFETIME-USE SMARTSET# [id number] Completed 12/19/2022, 03/25/2022, 11/11/2021, Additional history exists GARDASIL-HPV IMMUNIZATION SERIES Aged Out No longer eligible based on patient's age to complete this topic MENINGOCOCCAL (MENACTRA/MENVEO) Aged Out No longer eligible based on patient's age to complete this topic documented as of this encounter Medical Devices Implanted Type Area Radiology Director Device Identifier Shelf Expiration Date Model / Serial / Lot Lens Intraoc 25.0 - [id number] - [id number] Implanted:Qty: 1 on 09/03/2021 by Deon Griffin MD at OR [facility] Left: Eye [employer] 10/02/2025 [id number] / [id number] / [id number] Lens Intraoc 26.0 - [id number] - [id number] Implanted:Qty: 1 on 09/17/2021 by Deon Griffin MD at OR [facility] Right: Eye [employer]OM[employer] 10/03/2025 [id number] / [id number] / [id number] documented as of this encounter Visit Diagnoses Diagnosis Carotid stenosis, non-symptomatic, bilateral- Primary documented in this encounter Care Teams Digital Computer Operator Relationship Specialty Start Date End Date Dalila Bauman MD [address] [facility] [place] [address] PCP - General Internal Medicine 01/09/21 documented as of this encounter
--- OUTSIDE RECORDS SUMMARY | 2023-08-13 06:44 | External Medical Summary | Summary of Care ---
Author Name Unknown Organization [facility] Address [address] [place] [address] Phone [phone] Care Team Providers Care Fruit Grader Operator Name Role Phone Dalila Bauman MD Primary Care Provider [phone] Reason for Visit * Reason Onset Date Comments Order Request 07/29/2023 Encounter Details Date Type Department Care Team (Late st Contact Info) Description 07/29/2023 Telephone Vascular Surg [facility] [address], [place] [phone] Francesco Cohen MD [address] [place] [address] Order Request Allergies Active Allergy [...] hemoglobin A1c goal of less than 8.0% ([facility]) Use with Lantus once daily 100 Each 3 09/02/2022 Active Prodigy No Coding Blood Gluc In Vitro Strip (Glucose Blood)Indications:T ype 2 diabetes mellitus with hemoglobin A1c goal of less than 8.0% ([facility]) Use to test blood glucose 3 times daily as directed. 300 Strip 3 09/02/2022 Active Prevagen 10 MG Oral Capsule (Apoaequorin) Take by mouth every evening. 0 Active Furosemide 20 MG Oral Tablet (Lasix)Indications: Type 2 diabetes mellitus with stage 3b chronic kidney disease, without long-term current use of insulin ([facility]),HTN, goal below 150/90,Bilateral leg edema Take 1 to 2 tablets per week. 45 Tablet 3 09/24/2022 Active Lisinopril 20 MG Oral Tablet (Prinivil)Indicatio ns:Type 2 diabetes mellitus with stage 3b chronic kidney disease, without long-term current use of insulin ([facility]),HTN, goal below 150/90,History of hypertensive crisis [...] disease, without long-term current use of insulin ([facility]) 1 tab on odd days only, start 06/13/2021--dec 3d/wk 10/18/2021 45 Tablet 3 10/13/2022 Active CoQ10 200 MG Oral Capsule Take by mouth. 0 Active Repaglinide 2 MG Oral Tablet (Prandin)Indication s:Type 2 diabetes mellitus with hemoglobin A1c goal of less than 8.0% ([facility]) take 1 tablet by mouth three [...] hemoglobin A1c goal of less than 8.0% ([facility]) Inject 33 Units under the skin [...] LNP-s, No Preserve , Michel-sucrose, Ages 12+ ([employer]) 12/18/2021 COVID-19, mRNA, LNP-s, PF, B ooster, [...] as of this encounter Miscellaneous Notes * Telephone Encounter - Berenice Longoria OSA - 07/29/2023 9:52 AM EST Pt is scheduled for a vasc duplex of the carotid and needs a new order placed as the old one documented in this encounter Plan of Treatment Upcoming Encounters Date Type Department Care Team (Late st Contact Info) Description 08/07/2023 1:00 PM EST Imaging [facility] [address] [facility] [place] [address] 08/12/2023 2:10 PM EST Office Visit [facility], [facility] [address] Francesco Cohen MD [address] [place] [address] 09/11/2023 3:30 PM EST Office Visit Pharmacy, [facility] [address] [place] [address] Pharmacist1, [facility] [address] [place] [address] 09/11/2023 4:00 PM EST Office Visit Nephrology, [facility] [address] [place] [address] Cornel Smith MD [address] [place] [address] 10/29/2023 1:30 PM EDT Laboratory Laboratory [facility] [place] [address] [place] [phone] [facility] [address] [facility] [place] [address] 11/03/2023 2:00 PM EDT Office Visit General Internal Medicine [facility] [address] [facility] [place], [place] [address] Dalila Bauman MD [address] [facility] [place], [place] [address] 11/10/2023 3:00 PM EDT Office Visit Hematology/Oncology [facility] [address] [facility] [place] [address] Joshua Nunez MD [address] [facility] [place], [place] [address] Health Maintenance Due Date Last Done Comments [...] D LEVEL ONCE IN A LIFETIME-USE SMARTSET# [id number] Completed 12/19/2022, 03/25/2022, 11/11/2021, Additional history exists GARDASIL-HPV IMMUNIZATION SERIES Aged Out No longer eligible based on patient's age to complete this topic MENINGOCOCCAL (MENACTRA/MENVEO) Aged Out No longer eligible based on patient's age to complete this topic documented as of this encounter Medical Devices Implanted Type Area Supervisor Shipping Room Device Identifier Shelf Expiration Date Model / Serial / Lot Lens Intraoc 25.0 - [id number] - [id number] Implanted:Qty: 1 on 09/03/2021 by Deon Griffin MD at OR [facility] Left: Eye [employer] 10/02/2025 [id number] / [id number] / [id number] Lens Intraoc 26.0 - [id number] - [id number] Implanted:Qty: 1 on 09/17/2021 by Deon Griffin MD at OR [facility] Right: Eye [employer] 10/03/2025 [id number] / [id number] / [id number] documented as of this encounter Care Teams Fruit Grader Operator Relationship Specialty Start Date End Date Dalila Bauman MD [address] [place] [address] PCP - General Internal Medicine 01/09/21 documented as of this encounter
--- OUTSIDE RECORDS SUMMARY | 2023-08-13 06:45 | External Medical Summary | Summary of Care ---
Author Name Unknown Organization [facility] Address [address] [place] [place] [place] [address] Phone [phone] Care Team Providers Care Safety Advisor Name Role Phone Dalila Bauman MD Primary Care Provider [phone] Reason for Visit * Reason Onset Date Comments Medication Refill 07/02/2023 Encounter Details Date Type Department Care Team (Late st Contact Info) Description 07/02/2023 Refill General Internal Medicine [facility] [place] 200 [facility] [place] [address] Dalila Bauman MD 200 [facility] [address] Type 2 diabetes mellitus with hemoglobin A1c goal of less than 8.0% (HCC) Allergies Active Allergy Reactions Criticality Noted Date Comments Latex 01/09/2021 Penicillins 01/09/2021 Sulfa Antibiotics 01/09/2021 documented as of this encounter (statuses as of 07/02/2023) Medications Medication Sig Dispensed Refills Start Date End Date Status Aspirin EC 81 MG Oral Tablet Delayed ReleaseIndications :Type 2 diabetes mellitus with retinopathy of both eyes, without long-term current use of insulin, macular edema presence unspecified, unspecified retinopathy severity (HCC),Dyslipidemia , goal LDL below 100 Take 1 Tablet by mouth in the morning. 100 Tab 3 01/09/2021 Active Prodigy Voice Blood Glucose w/Device KitIndications:Typ e 2 diabetes mellitus with hemoglobin A1c goal of less than 8.0% (HCC) Use to test blood glucose 3 times daily. DX: E11.9. 1 Kit 0 07/15/2021 Active FreeStyle Jimmy 2 SensorIndications: Type 2 diabetes mellitus with hemoglobin A1c goal [...] hemoglobin A1c goal of less than 8.0% ([facility]) Use with Lantus once daily 100 Each 3 09/02/2022 Active Prodigy No Coding Blood Gluc In Vitro Strip (Glucose Blood)Indications: Type 2 diabetes mellitus with hemoglobin A1c goal of less than 8.0% ([facility]) Use to test blood glucose 3 times daily as directed. 300 Strip 3 09/02/2022 Active Prevagen 10 MG Oral Capsule (Apoaequorin) Take by mouth every evening. 0 Active Furosemide 20 MG Oral Tablet (Lasix)Indications :Type 2 diabetes mellitus with stage 3b chronic kidney disease, without long-term current use of insulin (HCC),HTN, goal below 150/90,Bilateral leg edema Take 1 to 2 tablets per week. 45 Tablet 3 09/24/2022 Active Lisinopril 20 MG Oral Tablet (Prinivil)Indicati ons:Type 2 diabetes mellitus with stage 3b chronic kidney disease, without long-term current use of insulin ([facility]),HTN, goal below 150/90,History of hypertensive crisis Take 1 Tablet by mouth in the morning and 1 Tablet in the evening. 180 Tablet 3 09/24/2022 Active Isosorbide Dinitrate 30 MG Oral Tablet Take 1 Tablet by mouth in the morning and 1 Tablet at noon and 1 Tablet before bedtime. 270 Tablet 3 09/24/2022 Active Vitamin B-12 1000 MCG Oral Tablet (Cyanocobalamin)In dications:Type 2 diabetes mellitus with stage 3b chronic kidney disease, without long-term current use of insulin ([facility]) 1 tab on odd days only, start 06/13/2021--dec 3d/wk 10/18/2021 45 Tablet 3 10/13/2022 Active CoQ10 200 MG Oral Capsule Take by mouth. 0 Active Repaglinide 2 MG Oral Tablet (Prandin)Indicatio ns:Type 2 diabetes mellitus with hemoglobin A1c goal of less than 8.0% (HCC) take 1 tablet by mouth three times a day BEFORE MEALS Strength: 2 mg 270 Tablet 3 2023 Active Sertraline HCl 50 MG Oral Tablet (Zoloft) TAKE 1/2 A TABLET BY MOUTH EVERY MORNING 45 Tablet 3 03/02/2023 Active Atorvastatin Calcium 80 MG Oral Tablet (Lipitor)Indicatio ns:Renal artery stenosis (HCC),Carotid stenosis, asymptomatic, right,Dyslipidemia , goal LDL below 70 take 1 tablet by mouth at bedtime INCREASE 11/13/2021 90 Tablet 2 04/13/2023 Active Tresiba FlexTouch 100 UNIT/ML Subcutaneous Solution Pen-injector (Insulin Degludec)Indicatio ns:Type 2 diabetes mellitus with hemoglobin A1c goal of less than 8.0% ([facility]) Inject 33 Units under the skin in the morning. 5 Each 3 05/04/2023 Active Additional Information Patient not taking.Reported on 05/04/2023 Melatonin ER 1 MG Oral Tablet Extended ReleaseIndications :Other insomnia daily1 tab at bedtime daily, if not improved may increase upto 5 mg daily 90 Tablet 1 05/04/2023 Active Metoprolol Succinate ER 100 MG Oral Tablet Extended Release 24 Hour (toPROL XL)Indications:HTN , goal below 150/90 take 1 tablet by mouth once daily 90 Tablet 3 05/07/2023 Active Verapamil HCl ER 180 MG Oral Tablet Extended Release (Isoptin SR)Indications:HTN , goal below 150/90,Type 2 diabetes mellitus with stage 3b chronic kidney disease, without long-term current use of insulin (HCC) take 1 tablet by mouth every evening 90 Tablet 1 05/14/2023 Active Tradjenta 5 MG Oral Tablet (linaGLIPtin)Indic ations:Type 2 diabetes mellitus with retinopathy of both eyes, without long-term current use of insulin, macular edema presence unspecified, unspecified retinopathy severity (HCC) take 1 tablet by mouth daily 90 Tablet 1 05/20/2023 Active Loratadine 10 MG Oral Tablet (Claritin)Indicati ons:Seasonal allergic rhinitis due to pollen,Mucous retention cyst of maxillary sinus take 1 tablet by mouth at bedtime 90 Tablet 3 05/26/2023 Active hydrALAZINE HCl 100 MG Oral TabletIndications: HTN, goal below 150/90,Type 2 diabetes mellitus with stage 3b chronic kidney disease, without long-term current use of insulin (HCC) Take 1 Tablet by mouth in the morning and 1 Tablet at noon and 1 Tablet before bedtime. 270 Tablet 3 06/08/2023 Active Insulin Glargine Solostar 100 UNIT/ML Subcutaneous Solution Pen-injector (Lantus SoloStar)Indicatio ns:Type 2 diabetes mellitus with hemoglobin A1c goal of less than 8.0% (HCC) Inject 33 Units under the skin daily. 30 mL 0 06/08/2023 Active Empagliflozin 25 MG Oral Tablet (Jardiance)Indicat ions:Type 2 diabetes mellitus with stage 3b chronic kidney disease, without long-term current use of insulin (HCC) Take 1 Tablet by mouth in the morning. 90 Tablet 3 06/08/2023 Active Prodigy Lancets 28GIndications:Typ e 2 diabetes mellitus with hemoglobin A1c goal of less than 8.0% ([facility]) Use to test blood glucose 3 times daily. DX: E11.9 300 Each 3 07/02/2023 Active Prodigy Lancets 28GIndications:Typ e 2 diabetes mellitus with hemoglobin A1c goal of less than 8.0% ([facility]) Use to test blood glucose 3 times daily. DX: E11.9 300 Each 3 10/03/2022 3 Discontinue d(Refill) documented as of this encounter (statuses as of 07/02/2023) Active Problems Problem Noted Date Diagnosed Date [...] as of this encounter (statuses as of 07/02/2023) Resolved Problems Problem Noted Date Diagnosed Date Resolved Date Chronic kidney disease, stage 3b 03/17/2022 05/21/2023 Overview: Per CKD protocol Type 2 diabetes mellitus wit h stage 3b chronic kidney disease, without long-term current use of insulin 07/26/2021 03/20/2022 Overview: Per CKD protocol documented as of this encounter (statuses as of 07/02/2023) Immunizations Name Administration Dates Next Due COVID-19 [...] encounter Miscellaneous Notes * Telephone Encounter - Virgil Ortez MD - 07/02/2023 1:34 PM ESTSigned Prescriptions: Disp Refills Prodigy Lancets 28G 300 Ea*3 Sig: Use to test blood glucose 3 times daily. DX: E11.9 Authorizing Provider: VIRGIL ORTEZ * Telephone Encounter - Shandra Mancia LPN - 07/02/2023 12:50 PM EST Pt calling, [facility] need [facility] RX for prodigy lancets Pending Prescriptions: Disp Refills Prodigy Lancets 28G 300 Ea*3 Sig: Use to test blood glucose 3 times daily. DX: E11.9 Last Visit: 05/04/2023 (in office), Visit date not found (telemedicine) Next Visit: 11/03/2023 Last date the medication was ordered: 10/03/22 Patient Active Problem List Diagnosis Code Type 2 diabetes mellitus with hemoglobin A1c goal of less than 8.0% ([facility]) E11.9 HTN, goal below 150/90 I10 Dyslipidemia, goal LDL below 70 E78.5 Adjustment disorder with anxious mood F43.22 B12 deficiency E53.8 History of 2019 novel coronavirus disease (COVID-19) Z86.16 S/P bilateral cataract extraction Z98.41, Z98.42 Renal artery stenosis ([facility]) I70.1 Carotid stenosis, asymptomatic, right 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 disease, with long-term current use of insulin([facility]) E11.22, N18.4, Z79.4 Senile osteoporosis M81.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.2 Hypertensive heart disease with chronic diastolic congestive heart failure ([facility]) I11.0, I50.32 Chronic kidney disease, stage 4 (severe) ([facility]) N18.4 Labs: Lab Results Component Value Date/Time CREATININE - [facility] 1.7 (H) 05/04/2023 04:24 PM CREATININE, RANDOM URINE - [facility] 35 09/01/2022 01:06 PM CREATININE-OUTSIDE LAB 1.25 (A) 10/31/2021 12:00 AM CREATININE-OUTSIDE LAB 1.90 (A) 10/31/2021 12:00 AM Lab Results Component Value Date/Time POTASSIUM - [facility] 4.0 05/04/2023 04:24 PM POTASSIUM-OUTSIDE LAB 4.1 10/31/2021 12:00 AM POTASSIUM-OUTSIDE LAB 4.4 10/31/2021 12:00 AM Lab Results Component Value Date/Time TSH - [facility] 3.02 09/01/2022 01:06 PM Lab Results Component Value Date/Time LDL CHOLESTEROL (CALCULATED) - [facility] 51 12/19/2022 01:45 PM LDL CHOLESTEROL (CALCULATED) - [facility] 40 01/09/2021 03:40 PM LDL CHOLESTEROL (DIRECT MEASURE) - [facility] 63 04/30/2023 11:43 AM LDL CHOLESTEROL (DIRECT MEASURE) - [facility] 66 01/22/2022 04:26 PM Lab Results Component Value Date/Time ALT - [facility] 30 05/04/2023 04:24 PM Hemoglobin AIC Results: Lab Results Component Value Date/Time HEMOGLOBIN A1C - [facility] 6.1 (H) 04/30/2023 11:43 AM HEMOGLOBIN A1C - [facility] 7.4 (H) 12/19/2022 01:45 PM HEMOGLOBIN A1C - [facility] 10.7 (H) 09/01/2022 01:06 PM HEMOGLOBIN A1C POCT - [facility] 8.8 (H) 04/23/2022 06:15 PM HEMOGLOBIN A1C POCT - [facility] 8.9 (H) 09/13/2021 03:42 PM documented in this encounter Plan of Treatment Upcoming Encounters Date Type Department Care Team (Late st Contact Info) Description 08/07/2023 1:00 PM EST [facility] [address] [facility] [place] [address] 08/12/2023 2:10 PM EST Office Visit Vascular Surgery, [facility] [address] [facility] [place] [address] Francesco Cohen MD [address] [place], [place] [id number] 09/11/2023 3:30 PM EST Office Visit Pharmacy, [facility] [address] [place] [address] Pharmacist1, [facility] [address] [facility] [place] [address] 09/11/2023 4:00 PM EST Office Visit Nephrology, [facility] [address] [place] [address] [address] Cornel Smith MD [address] [place] [address] 10/29/2023 1:30 PM EDT Laboratory Laboratory [facility] [address] [place] [id number] [place] [facility] [address] [facility] [place] [address] 11/03/2023 2:00 PM EDT Office Visit General Internal Medicine [facility] [address] [place] [address] Dalila Bauman MD [address] [place] [address] [address] 11/10/2023 3:00 PM EDT Office Visit Hematology/Oncology [facility] [address] [place] [address] Joshua Nunez MD 200 [facility] [place] [address] Health Maintenance Due Date Last Done Comments [...] D LEVEL ONCE IN A LIFETIME-USE SMARTSET# [id number] Completed 12/19/2022, 03/25/2022, 11/11/2021, Additional history exists GARDASIL-HPV IMMUNIZATION SERIES Aged Out No longer eligible based on patient's age to complete this topic MENINGOCOCCAL (MENACTRA/MENVEO) Aged Out No longer eligible based on patient's age to complete this topic documented as of this encounter Medical Devices Implanted Type Area Hot Top Liner Helper Device Identifier Shelf Expiration Date Model / Serial / Lot Lens Intraoc 25.0 - [id number] - [id number] Implanted:Qty: 1 on 09/03/2021 by Deon Griffin MD at OR [facility] Left: Eye [employer] 10/02/2025 [id number] / [id number] / [id number] Lens Intraoc 26.0 - [id number] - [id number] Implanted:Qty: 1 on 09/17/2021 by Deon Griffin MD at OR [facility] Right: Eye [employer] 10/03/2025 [id number] / [id number] / [id number] documented as of this encounter Visit Diagnoses Diagnosis Type 2 diabetes mellitus with hemoglobin A1c goal of less than 8.0% (HCC) documented in this encounter Care Teams Safety Advisor Relationship Specialty Start Date End Date Dalila Bauman MD [address] [place] [address] PCP - General Internal Medicine 01/09/21 documented as of this encounter
--- OUTSIDE RECORDS SUMMARY | 2023-08-13 06:45 | External Medical Summary | Summary of Care ---
Author Name Unknown Organization [facility] Address [address] [place] [address] Phone [phone] Care Team Providers Care Hydroelectric Plant Structural Engineer Name Role Phone Dalila Bauman MD Primary Care Provider [phone] Reason for Visit * Reason Onset Date Comments Order Request 07/29/2023 Encounter Details Date Type Department Care Team (Late st Contact Info) Description 07/29/2023 Telephone Vascular Surg [facility] [address] [place], [place] [id number] Francesco Cohen MD [address] [place] [address] Order Request Allergies Active Allergy Reactions Criticality Noted Date Comments Latex 01/09/2021 Penicillins 01/09/2021 Sulfa Antibiotics 01/09/2021 documented as of this encounter (statuses as of 07/30/2023) Medications Medication Sig Dispensed Refills Start Date [...] A1c goal of less than 8.0% ([facility]) Use with Lantus once daily 100 Each 3 09/02/2022 Active Prodigy No Coding Blood Gluc In Vitro Strip (Glucose Blood)Indications:T ype 2 diabetes mellitus with hemoglobin A1c goal of less than 8.0% ([facility]) Use to test blood glucose 3 times daily as directed. 300 Strip 3 09/02/2022 Active Prevagen 10 MG Oral Capsule (Apoaequorin) Take by mouth every evening. 0 Active Furosemide 20 MG Oral Tablet (Lasix)Indications: Type 2 diabetes mellitus with stage 3b chronic kidney disease, without long-term current use of insulin ([facility]),HTN, goal below 150/90,Bilateral leg edema Take 1 to 2 tablets per week. 45 Tablet 3 09/24/2022 Active Lisinopril 20 MG Oral Tablet (Prinivil)Indicatio ns:Type 2 diabetes mellitus with stage 3b chronic kidney disease, without long-term current use of insulin ([facility]),HTN, goal below 150/90,History of hypertensive [...] without long-term current use of insulin ([facility]) 1 tab on odd days only, start 06/13/2021--dec 3d/wk 10/18/2021 45 Tablet 3 10/13/2022 Active CoQ10 200 MG Oral Capsule Take by mouth. 0 Active Repaglinide 2 MG Oral Tablet (Prandin)Indication s:Type 2 diabetes mellitus with hemoglobin A1c goal of less than 8.0% ([facility]) take 1 tablet by mouth three times [...] A1c goal of less than 8.0% ([facility]) Inject 33 Units under the [...] as of this encounter (statuses as of 07/30/2023) Active Problems Problem Noted Date Diagnosed Date [...] as of this encounter (statuses as of 07/30/2023) Resolved Problems Problem Noted Date Diagnosed Date Resolved Date Chronic kidney disease, stage 3b 03/17/2022 05/21/2023 Overview: Per CKD protocol Type 2 diabetes mellitus wit h stage 3b chronic kidney disease, without long-term current use of insulin 07/26/2021 03/20/2022 Overview: Per CKD protocol documented as of this encounter (statuses as of 07/30/2023) Immunizations Name Administration Dates Next Due COVID-19 mRNA, LNP-s, No Pre serve, 2-Dose Series (Moderna) 12/11/2020,11/13/2020 COVID-19, LNP-s, No Preserve , Michel-sucrose, Ages 12+ (Meiaoju) 12/18/2021 COVID-19, mRNA, LNP-s, PF, B ooster, [...] [facility] [address] [facility] [place] [address] 08/12/2023 2:10 PM EST Office Visit Vascular Surgery, [facility] [address] [facility] [address] Francesco Cohen MD [address] [place] [address] 09/11/2023 3:30 PM EST Office Visit Pharmacy, [facility] [address] [place] [address] Pharmacist1, [facility] [address] [place] [address] 09/11/2023 4:00 PM EST Office Visit Nephrology, [facility] [address] [place] [address] Cornel Smith MD [address] [place] [address] 10/29/2023 1:30 PM EDT Laboratory Laboratory [facility] [place] [address] [place] [address] [phone] Park [facility] [address] [facility] [place] [address] 11/03/2023 2:00 PM EDT Office Visit General Internal Medicine [facility] [address] [facility] [place], [place] [address] Dalila Bauman MD [address] [facility] [place], [place] [address] 11/10/2023 3:00 PM EDT Office Visit Hematology/Oncology [facility] [address] [facility] [place] [address] Joshua Nunez MD [address] [facility] [place], [place] [address] Health Maintenance Due Date Last Done Comments [...] D LEVEL ONCE IN A LIFETIME-USE SMARTSET# [id number] Completed 12/19/2022, 03/25/2022, 11/11/2021, Additional history exists GARDASIL-HPV IMMUNIZATION SERIES Aged Out No longer eligible based on patient's age to complete this topic MENINGOCOCCAL (MENACTRA/MENVEO) Aged Out No longer eligible based on patient's age to complete this topic documented as of this encounter Medical Devices Implanted Type Area [employer] Device Identifier Shelf Expiration Date Model / Serial / Lot Lens Intraoc 25.0 - [id number] - [id number] Implanted:Qty: 1 on 09/03/2021 by Deon Griffin MD at OR [facility] Left: Eye [employer] 10/02/2025 [id number] / [id number] / [id number] Lens Intraoc 26.0 - [id number] - [id number] Implanted:Qty: 1 on 09/17/2021 by Deon Griffin MD at OR [facility] Right: Eye [employer] 10/03/2025 [id number] / [id number] / [id number] documented as of this encounter Care Teams Hydroelectric Plant Structural Engineer Relationship Specialty Start Date End Date Dalila Bauman MD 200 [facility] [place] [address] PCP - General Internal Medicine 01/09/21 documented as of this encounter
--- OUTSIDE RECORDS SUMMARY | 2023-08-13 06:45 | External Medical Summary | Summary of Care ---
Author Name Unknown Organization [facility] Address [address] [facility] [address] Phone [phone] Care Team Providers Care Tape Controlled Machine Stitcher Name Role Phone Dalila Bauman MD Primary Care Provider [phone] Reason for Visit * Reason Onset Date Comments Advice 07/02/2023 Encounter Details Date Type Department Care Team (Late st Contact Info) Description 07/02/2023 Telephone General Internal Medicine [facility] [place] 200 [facility] [place] [address] Dalila Bauman MD 200 [place] [address] Advice (/) Allergies Active Allergy Reactions Criticality Noted Date Comments Latex 01/09/2021 Penicillins 01/09/2021 Sulfa Antibiotics 01/09/2021 documented as of this encounter (statuses as of 07/03/2023) Medications Medication Sig Dispensed Refills Start Date [...] hemoglobin A1c goal of less than 8.0% ([facility]) Use with Lantus once daily 100 Each 3 09/02/2022 Active Prodigy No Coding Blood Gluc In Vitro Strip (Glucose Blood)Indications:T ype 2 diabetes mellitus with hemoglobin A1c goal of less than 8.0% ([facility]) Use to test blood glucose 3 times daily as directed. 300 Strip 3 09/02/2022 Active Prevagen 10 MG Oral Capsule (Apoaequorin) Take by mouth every evening. 0 Active Furosemide 20 MG Oral Tablet (Lasix)Indications: Type 2 diabetes mellitus with stage 3b chronic kidney disease, without long-term current use of insulin ([facility]),HTN, goal below 150/90,Bilateral leg edema Take 1 to 2 tablets per week. 45 Tablet 3 09/24/2022 Active Lisinopril 20 MG Oral Tablet (Prinivil)Indicatio ns:Type 2 diabetes mellitus with stage 3b chronic kidney disease, without long-term current use of insulin ([facility]),HTN, goal below 150/90,History of hypertensive [...] disease, without long-term current use of insulin ([facility]) 1 tab on odd days only, start 06/13/2021--dec 3d/wk 10/18/2021 45 Tablet 3 10/13/2022 Active CoQ10 200 MG Oral Capsule Take by mouth. 0 Active Repaglinide 2 MG Oral Tablet (Prandin)Indication s:Type 2 diabetes mellitus with hemoglobin A1c goal of less than 8.0% ([facility]) take 1 tablet by mouth [...] (HCC) Inject 33 Units under the skin in [...] as of this encounter (statuses as of 07/03/2023) Active Problems Problem Noted Date Diagnosed Date [...] as of this encounter (statuses as of 07/03/2023) Resolved Problems Problem Noted Date Diagnosed Date Resolved Date Chronic kidney disease, stage 3b 03/17/2022 05/21/2023 Overview: Per CKD protocol Type 2 diabetes mellitus wit h stage 3b chronic kidney disease, without long-term current use of insulin 07/26/2021 03/20/2022 Overview: Per CKD protocol documented as of this encounter (statuses as of 07/03/2023) Immunizations Name Administration Dates Next Due COVID-19 [...] encounter Miscellaneous Notes * Telephone Encounter - Crow Dowling OSA - 07/03/2023 9:32 AM EST Appt summary sent 07-03-2023. * Telephone Encounter - Bernie Carlos LPN - 07/02/2023 2:58 PM EST Patient calling in stating that she has had a lot of appointment cancellations and re-scheduled appointments. She is asking if she could get a list of all her current appointments printed and sent toher home address so that she can have transportation scheduled. Thanks! documented in this encounter Plan of Treatment Upcoming Encounters Date Type Department Care Team (Late st Contact Info) Description 08/07/2023 1:00 PM EST Imaging Vascular Lab, [facility] 2nd [facility] [address] [facility] [place] [address] 08/12/2023 2:10 PM EST Office Visit Vascular Surgery, [facility] 132 [place] [address] Francesco Cohen MD [address] [place] [facility] [address] 09/11/2023 3:30 PM EST Office Visit Pharmacy, [facility] [address] [place] [address] Pharmacist1, [facility] [address] [place] [address] 09/11/2023 4:00 PM EST Office Visit Nephrology, [facility] [place] [address] [place] [address] Cornel Smith MD 200 [place] [address] 10/29/2023 1:30 PM EDT Laboratory Laboratory [facility] 200 [facility] [place] [place] [id number] [facility] [address] [place] [address] 11/03/2023 2:00 PM EDT Office Visit General Internal Medicine [facility] 200 [facility] [place] [place] [address] Dalila Bauman MD 200 [place] [address] 11/10/2023 3:00 PM EDT Office Visit Hematology/Oncology [facility] 200 [facility] [place] [place] [address] Joshua Nunez MD 200 [place] [address] Health Maintenance Due Date Last Done Comments [...] D LEVEL ONCE IN A LIFETIME-USE SMARTSET# [id number] Completed 12/19/2022, 03/25/2022, 11/11/2021, Additional history exists GARDASIL-HPV IMMUNIZATION SERIES Aged Out No longer eligible based on patient's age to complete this topic MENINGOCOCCAL (MENACTRA/MENVEO) Aged Out No longer eligible based on patient's age to complete this topic documented as of this encounter Medical Devices Implanted Type Area Deck Officer Device Identifier Shelf Expiration Date Model / Serial / Lot Lens Intraoc 25.0 - [id number] - [id number] Implanted:Qty: 1 on 09/03/2021 by Deon Griffin MD at OR [facility] Left: Eye [employer] LOMB 10/02/2025 [id number] / [id number] Lens Intraoc 26.0 - [id number] - [id number] Implanted:Qty: 1 on 09/17/2021 by Deon Griffin MD at OR [facility] Right: Eye [employer] LOMB 10/03/2025 [id number] / [id number] / [id number] documented as of this encounter Care Teams Tape Controlled Machine Stitcher Relationship Specialty Start Date End Date Dalila Bauman MD 200 [facility] [place] [address] PCP - General Internal Medicine 01/09/21 documented as of this encounter
--- OUTSIDE RECORDS SUMMARY | 2023-08-13 06:45 | External Medical Summary | Summary of Care ---
Author Name Unknown Organization [facility] Address [address] [place] [address] Phone [phone] Care Team Providers Care Diagnostic Tech Name Role Phone Dalila Bauman MD Primary Care Provider [phone] Reason for Visit * Reason Onset Date Comments Order Request 07/29/2023 Encounter Details Date Type Department Care Team (Late st Contact Info) Description 07/29/2023 Telephone Vascular Surg [facility] [address], [place] [id number] Francesco Cohen MD [address] [place] [address] Order Request Allergies Active Allergy Reactions Criticality Noted Date Comments Latex 01/09/2021 Penicillins 01/09/2021 Sulfa Antibiotics 01/09/2021 documented as of this encounter (statuses as of 07/29/2023) Medications Medication Sig Dispensed Refills Start Date [...] of insulin ([facility]),HTN, goal below 150/90,Bilateral leg edema [...] of less than 8.0% ([facility]) take 1 tablet by mouth [...] as of this encounter (statuses as of 07/29/2023) Active Problems Problem Noted Date Diagnosed Date [...] as of this encounter (statuses as of 07/29/2023) Resolved Problems Problem Noted Date Diagnosed Date Resolved Date Chronic kidney disease, stage 3b 03/17/2022 05/21/2023 Overview: Per CKD protocol Type 2 diabetes mellitus wit h stage 3b chronic kidney disease, without long-term current use of insulin 07/26/2021 03/20/2022 Overview: Per CKD protocol documented as of this encounter (statuses as of 07/29/2023) Immunizations Name Administration Dates Next Due COVID-19 mRNA, LNP-s, No Pre serve, 2-Dose Series (Moderna) 12/11/2020,11/13/2020 COVID-19, LNP-s, No Preserve , Michel-sucrose, Ages 12+ ([employer]) 12/18/2021 COVID-19, mRNA, LNP-s, PF, B ooster, [...] 08/07/2023 1:00 PM EST [facility] 132 [facility] [place] [address] 08/12/2023 2:10 PM EST Office Visit Vascular Surgery, [facility] [address] [facility] [address] Francesco Cohen MD [address] [place] [address] 09/11/2023 3:30 PM EST Office Visit Pharmacy, [facility] [address] [place] [address] Pharmacist1, [facility] [address] [place] [address] 09/11/2023 4:00 PM EST Office Visit Nephrology, [facility] [address] [place] [address] Cornel Smith MD [address] [place] [address] 10/29/2023 1:30 PM EDT Laboratory Laboratory [facility] [place] [address] [place] [phone] [facility] [address] [facility] [place] [address] 11/03/2023 2:00 PM EDT Office Visit General Internal Medicine [facility] 200 [facility] [place], [place] [address] Dalila Bauman MD 200 [facility] [place], [place] [address] 11/10/2023 3:00 PM EDT Office Visit Hematology/Oncology [facility] 200 [facility] [place] [address] Joshua Nunez MD 200 [facility] [place], [place] [address] Health Maintenance Due Date Last Done Comments [...] D LEVEL ONCE IN A LIFETIME-USE SMARTSET# [id number] Completed 12/19/2022, 03/25/2022, 11/11/2021, Additional history exists GARDASIL-HPV IMMUNIZATION SERIES Aged Out No longer eligible based on patient's age to complete this topic MENINGOCOCCAL (MENACTRA/MENVEO) Aged Out No longer eligible based on patient's age to complete this topic documented as of this encounter Medical Devices Implanted Type Area Resource Manager Forester Device Identifier Shelf Expiration Date Model / Serial / Lot Lens Intraoc 25.0 - [id number] - [id number] Implanted:Qty: 1 on 09/03/2021 by Deon Griffin MD at OR [facility] Left: Eye [employer]CH [employer] LOMB 10/02/2025 [id number] / [id number] / [id number] Lens Intraoc 26.0 - [id number] - [id number] Implanted:Qty: 1 on 09/17/2021 by Deon Griffin MD at OR [facility] Right: Eye [employer]USCH [employer] LOMB 10/03/2025 [id number] / [id number] / [id number] documented as of this encounter Care Teams Diagnostic Tech Relationship Specialty Start Date End Date Dalila Bauman MD 200 [place] [address] PCP - General Internal Medicine 01/09/21 documented as of this encounter
--- OUTSIDE RECORDS SUMMARY | 2023-08-13 06:45 | External Medical Summary | Summary of Care ---
Author Name Unknown Organization [facility] Address [address] [place] [address] Phone [phone] Care Team Providers Care High Pressure Boiler Operator Name Role Phone Dalila Bauman MD Primary Care Provider [phone] Reason for Visit * Reason Comments eRx-Medication Refill Encounter Details Date Type Department Care Team (Late st Contact Info) Description 06/05/2023 Refill Pharmacy, [facility] [place] 200 [facility] [place] [address] Dalila Bauman MD 200 [facility] [place] [address] Type 2 diabetes mellitus with hemoglobin A1c goal of less than 8.0% ([facility]); Type 2 diabetes mellitus with stage 3b chronic kidney disease, without long-term current use of insulin ([facility]) Allergies Active Allergy Reactions Criticality Noted Date Comments Latex 01/09/2021 Penicillins 01/09/2021 Sulfa Antibiotics 01/09/2021 documented as of this encounter (statuses as of 06/08/2023) Medications Medication Sig Dispensed Refills Start Date End Date Status Aspirin EC 81 MG Oral Tablet Delayed ReleaseIndication s:Type 2 diabetes mellitus with retinopathy of both eyes, without long-term current use of insulin, macular edema presence unspecified, unspecified retinopathy severity (HCC),Dyslipidemi a, goal LDL below 100 Take 1 Tablet by mouth in the morning. 100 Tab 3 01/09/2021 Active Apptimize Voice Blood Glucose w/Device KitIndications:Ty pe 2 diabetes mellitus with hemoglobin A1c goal of less than 8.0% (HCC) Use to test blood glucose 3 times daily. DX: E11.9. 1 Kit 0 07/15/2021 Active FreeStyle Jimmy 2 SensorIndications :Type 2 diabetes mellitus with hemoglobin A1c goal of less than 8.0% ([facility]) Use as directed every 14 days . [...] Active Insulin Pen Needle 32G X 6 MMIndications:Typ e 2 diabetes mellitus with hemoglobin A1c goal of less than 8.0% (HCC) Use with Lantus once daily 100 Each 09/02/2022 Active Prodigy No Coding Blood Gluc In Vitro Strip (Glucose Blood)Indications :Type 2 diabetes mellitus with hemoglobin A1c goal of less than 8.0% ([facility]) Use to test blood glucose 3 times daily as directed. 300 Strip 3 09/02/2022 Active Prevagen 10 MG Oral Capsule (Apoaequorin) Take by mouth every evening. 0 Active hydrALAZINE HCl 100 MG Oral Tablet Take 1 Tablet by mouth in the morning and 1 Tablet at noon and 1 Tablet before bedtime. 270 Tablet 09/24/2022 Active Furosemide 20 MG Oral Tablet (Lasix)Indication s:Type 2 diabetes mellitus with stage 3b chronic kidney disease, without long-term current use of insulin (HCC),HTN, goal below 150/90,Bilateral leg edema Take 1 to 2 tablets per week. 45 Tablet 09/24/2022 Active Lisinopril 20 MG Oral Tablet (Prinivil)Indicat ions:Type 2 diabetes mellitus with stage 3b chronic kidney disease, without long-term current use of insulin ([facility]),HTN, goal below 150/90,History of hypertensive crisis Take 1 Tablet by mouth in the morning and 1 Tablet in the evening. 180 Tablet 09/24/2022 Active Isosorbide Dinitrate 30 MG Oral Tablet Take 1 Tablet by mouth in the morning and 1 Tablet at noon and 1 Tablet before bedtime. 270 Tablet 09/24/2022 Active Prodigy Lancets 28GIndications:Ty pe 2 diabetes mellitus with hemoglobin A1c goal of less than 8.0% (HCC) Use to test blood glucose 3 times daily. DX: E11.9 300 Each 3 10/03/2022 Active Vitamin B-12 1000 MCG Oral Tablet (Cyanocobalamin)I ndications:Type 2 diabetes mellitus with stage 3b chronic kidney disease, without long-term current use of insulin (HCC) 1 tab on odd days only, start 06/13/2021--dec 3d/wk 10/18/2021 45 Tablet 3 10/13/2022 Active CoQ10 200 MG Oral Capsule Take by mouth. 0 Active Repaglinide 2 MG Oral Tablet (Prandin)Indicati ons:Type 2 diabetes mellitus with hemoglobin A1c goal of less than 8.0% (HCC) take 1 tablet by mouth three times a day BEFORE MEALS Strength: 2 mg 270 Tablet 3 2023 Active Sertraline HCl 50 MG Oral Tablet (Zoloft) TAKE 1/2 A TABLET BY MOUTH EVERY MORNING 45 Tablet 3 03/02/2023 Active Atorvastatin Calcium 80 MG Oral Tablet (Lipitor)Indicati ons:Renal artery stenosis (HCC),Carotid stenosis, asymptomatic, right,Dyslipidemi a, goal LDL below 70 take 1 tablet by mouth at bedtime INCREASE 11/13/2021 90 Tablet 2 04/13/2023 Active Tresiba FlexTouch 100 UNIT/ML Subcutaneous Solution Pen-injector (Insulin Degludec)Indicati ons:Type 2 diabetes mellitus with hemoglobin A1c goal of less than 8.0% ([facility]) Inject 33 Units under the skin in the morning. 5 Each 3 05/04/2023 Active Additional Information Patient not taking.Reported on 05/04/2023 Melatonin ER 1 MG Oral Tablet Extended ReleaseIndication s:Other insomnia daily1 tab at bedtime daily, if not improved may increase upto 5 mg daily 90 Tablet 1 05/04/2023 Active Metoprolol Succinate ER 100 MG Oral Tablet Extended Release 24 Hour (toPROL XL)Indications:HT N, goal below 150/90 take 1 tablet by mouth once daily 90 Tablet 3 05/07/2023 Active Verapamil HCl ER 180 MG Oral Tablet Extended Release (Isoptin SR)Indications:HT N, goal below 150/90,Type 2 diabetes mellitus with stage 3b chronic kidney disease, without long-term current use of insulin (HCC) take 1 tablet by mouth every evening 90 Tablet 1 05/14/2023 Active Tradjenta 5 MG Oral Tablet (linaGLIPtin)Dora cations:Type 2 diabetes mellitus with retinopathy of both eyes, without long-term current use of insulin, macular edema presence unspecified, unspecified retinopathy severity (HCC) take 1 tablet by mouth daily 90 Tablet 1 05/20/2023 Active Loratadine 10 MG Oral Tablet (Claritin)Indicat ions:Seasonal allergic rhinitis due to pollen,Mucous retention cyst of maxillary sinus take 1 tablet by mouth at bedtime 90 Tablet 3 05/26/2023 Active Insulin Glargine Solostar 100 UNIT/ML Subcutaneous Solution Pen-injector (Lantus SoloStar)Indicati ons:Type 2 diabetes mellitus with hemoglobin A1c goal of less than 8.0% (HCC) Inject 33 Units under the skin daily. 30 mL 0 06/08/2023 Active Empagliflozin 25 MG Oral Tablet (Jardiance)Indica tions:Type 2 diabetes mellitus with stage 3b chronic kidney disease, without long-term current use of insulin (HCC) Take 1 Tablet by mouth in the morning. 90 Tablet 3 06/08/2023 Active Jardiance 25 MG Oral Tablet (Empagliflozin)In dications:Type 2 diabetes mellitus with hemoglobin A1c goal of less than 8.0% (HCC),Type 2 diabetes mellitus with stage 3b chronic kidney disease, without long-term current use of insulin (HCC) take 1 tablet by mouth every morning INCREASE BACK 11/14/21 AND STOP METFORMIN 90 Tablet 1 01/22/2023 06/08/20 23 Discontinued documented as of this encounter (statuses as of 06/08/2023) Active Problems Problem Noted Date Diagnosed Date [...] as of this encounter (statuses as of 06/08/2023) Resolved Problems Problem Noted Date Diagnosed Date Resolved Date Chronic kidney disease, stage 3b 03/17/2022 05/21/2023 Overview: Per CKD protocol Type 2 diabetes mellitus wit h stage 3b chronic kidney disease, without long-term current use of insulin 07/26/2021 03/20/2022 Overview: Per CKD protocol documented as of this encounter (statuses as of 06/08/2023) Immunizations Name Administration Dates Next Due COVID-19 [...] encounter Miscellaneous Notes * Telephone Encounter - Maryse Tee RPh - 06/08/2023 8:26 AM ESTSigned Prescriptions: Disp Refills Insulin Glargine Solostar 100 UNIT/ML Subc*30 mL 0 Sig: Inject 33 Units under the skin daily.Authorizing Provider: Luana BAUMAN User: MARYSE WILLIS V Empagliflozin 25 MG Oral Tablet (Jardiance)90 Tab*3 Sig: Take 1 Tablet by mouth in the morning.Authorizing Pr ovider: Luana BAUMAN User: MARYSE WILLIS V * Telephone Encounter - Maryse Tee RPh - 06/08/2023 8:22 AM EST Did you pend patient's preferred pharmacy and medication before forwarding?no Pharmacy: [facility] #[id number] Pending Prescriptions: Disp Refills Lantus SoloStar 100 UNIT/ML Subcutaneous *30 mL 3 Sig: INJECT 30 UNITS NIC[place]S THE SKIN DAILY Jardiance 25 MG Oral Tablet (Empagliflozi*90 Tab*1 Sig: take 1 tablet by mouth every morning INCREASE BACK 11/14/21 AND STOP METFORMIN Last Visit: 05/04/2023 (in office), 10/11/2021 (telemedicine) Next Visit: 09/11/2023 If no future appointments scheduled, and last appointment is greater than a year ago, please schedule patient for a follow-up appointment Last date the medication was ordered: 01/22/23 Is this request for a controlled substance?No Urine Drug Screen:No results found for this or any previous visit. Patient Phone Numbers Labs: Lab Results Component Value Date/Time CREAT 1.7 (H) 05/04/2023 04:24 PM CREAT 1.25 (A) 10/31/2021 12:00 AM CREAT 1.90 (A) 10/31/2021 12:00 AM POTASSIUM 4.0 05/04/2023 04:24 PM POTASSIUM 4.1 10/31/2021 12:00 AM POTASSIUM 4.4 10/31/2021 12:00 AM TSH 3.02 09/01/2022 01:06 PM LDLCALC 51 12/19/2022 01:45 PM LDLDIRECT 63 04/30/2023 11:43 AM ALT 30 05/04/2023 04:24 PM HGBA1C 6.1 (H) 04/30/2023 11:43 AM HGBA1C 8.8 (H) 04/23/2022 06:15 PM HGBA1C 10.3 (A) 10/31/2021 12:00 AM Maryse Willis RPh, CACP, CDE Clinical Pharmacist [facility] 06/08/2023, 8:22 AM * Telephone Encounter - Jaya Amado RPh - 06/07/2023 7:40 PM EST Pending Prescriptions: Disp Refills Lantus SoloStar 100 UNIT/ML Subcutaneous S*30 mL 3 Sig: INJECT 30 UNITS [place]IC[place]S THE SKIN DAILY Jardiance 25 MG Oral Tablet [Pharmacy Med *90 Tab*1 Sig: take 1 tabletby mouth every morning INCREASE BACK 11/14/21 AND STOP METFORMIN documented in this encounter Plan of Treatment Upcoming Encounters Date Type Department Care Team (Late st Contact Info) Description 06/17/2023 3:30 PM EST Office Visit Cardiology, [facility] [address] [place] [address] Wiliam Schroeder MD [address] [place] [address] 09/11/2023 3:30 PM EST Office Visit Pharmacy, [facility] [address] [place], [place] [address] Pharmacist1, [facility] [address] [place], [place] [address] 09/11/2023 4:00 PM EST Office Visit Nephrology, [facility] [address] [place], [place] [address] Cornel Smith MD [address] [place], [place] [address] 10/29/2023 1:30 PM EDT Laboratory Laboratory [facility] [place] [address] [place], [place] [phone] Myrna Gonzalez [facility] [address] [place], [place] [address] 11/03/2023 2:00 PM EDT Office Visit General Internal Medicine [facility] [place] [address] [place], [place] [address] Dalila Bauman MD [address] [place], [place] [address] 11/10/2023 3:00 PM EDT Office Visit Hematology/Oncology [facility] [place] [address] [place] [address] Joshua Nunez MD 200 [place] [address] Health Maintenance Due Date Last Done Comments Pneumococcal Vaccine: 65+ Years (1 - PCV) 02/18/1941 DTaP,Tdap,and Td Vaccines (1 - Tdap) 1953 Zoster Vaccines (1 of 2) 02/18/1984 Hepatitis B (1 of 3 - Risk 3-dose series) 1994 Diabetic Foot Exam 10/16/2022 10/16/2021 COVID-19 Vaccine (2022- season) 2023 12/18/2021, 07/11/2021, 12/11/2020, Additional history exists Influenza Vaccine (FLU shot) (#1) 2023 Albumin/Creatinine Ratio 09/01/2023 09/01/2022, 07/07 Depression Screening 10/25/2023 10/24/2022 HbA1c 10/30/2023 04/30/2023, 12/04, 09/01/2022, Additional history exists Diabetic Eye Exam 12/11/2023 12/10/2022, , 12/10/2022, Additional history exists DXA Scan 03/17/2024 03/17/2022, 03/17/2022 VITAMIN D LEVEL ONCE IN A LIFETIME-USE SMARTSET# [id number] Completed 12/19/2022, 03/25/2022, 11/11/2021, Additional history exists GARDASIL-HPV IMMUNIZATION SERIES Aged Out No longer eligible based on patient's age to complete this topic MENINGOCOCCAL (MENACTRA/MENVEO) Aged Out No longer eligible based on patient's age to complete this topic documented as of this encounter Medical Devices Implanted Type Area Public Relations Analyst Device Identifier Shelf Expiration Date Model / Serial / Lot Lens Intraoc 25.0 - [id number] - [id number] Implanted:Qty: 1 on 09/03/2021 by Deon Griffin MD at OR [facility] Left: Eye [employer] LOMB 10/02/2025 [id number] / [id number] / [id number] Lens Intraoc 26.0 - [id number] - [id number] Implanted:Qty: 1 on 09/17/2021 by Deon Griffin MD at OR [facility] Right: Eye [employer]USCH [employer] LOMB 10/03/2025 [id number] / [id number] / [id number] documented as of this encounter Visit Diagnoses Diagnosis Type 2 diabetes mellitus with hemoglobin A1c goal of less than 8.0% (HCC) Type 2 diabetes mellitus with stage 3b chronic kidney disease, without long-term current use of insulin (HCC) documented in this encounter Care Teams High Pressure Boiler Operator Relationship Specialty Start Date End Date Dalila Bauman MD [address] [place] [address], [place] [address] PCP - General Internal Medicine 01/09/21 documented as of this encounter
--- OUTSIDE RECORDS SUMMARY | 2023-08-13 06:45 | External Medical Summary | Summary of Care ---
Author Name Unknown Organization [facility] Address [address] [place] [address] Phone [phone] Care Team Providers Care Capsule Filling Machine Operator Name Role Phone Dalila Bauman MD Primary Care Provider [phone] Reason for Visit * Reason Onset Date Comments Order Request 07/29/2023 Encounter Details Date Type Department Care Team (Late st Contact Info) Description 07/29/2023 Telephone Vascular Surg [facility] [address], [place] [id number] Francesco Cohen MD [address] [place] [address] Order Request Allergies Active Allergy [...] LNP-s, No Preserve , Michel-sucrose, Ages 12+ ([place]) 12/18/2021 COVID-19, mRNA, LNP-s, PF, B ooster, [...] 08/07/2023 1:00 PM EST [facility] [address] [facility] [place] [address] 08/12/2023 2:10 PM EST Office Visit Vascular Surgery, [facility] [address] [facility] [place] [address] Francesco Cohen MD [address] [place] [address] 09/11/2023 3:30 PM EST Office Visit Pharmacy, [facility] [address] [place] [address] Pharmacist1, [facility] [address] [place] [address] 09/11/2023 4:00 PM EST Office Visit Nephrology, [facility] [address] [place] [address] Cornel Smith MD [address] [place] [address] 10/29/2023 1:30 PM EDT Laboratory Laboratory [facility] [place] [address] [id number] [facility] [address] [facility] [place] [address] 11/03/2023 2:00 PM EDT Office Visit General Internal Medicine [facility] 200 [facility] [place], [place] [address] Dalila Bauman MD 200 [facility] [place], [place] [address] 11/10/2023 3:00 PM EDT Office Visit Hematology/Oncology [facility] [address] [facility] [place] [address] Joshua Nunez MD 200 [facility] [place], [place] [address] Health Maintenance Due Date Last Done Comments [...] D LEVEL ONCE IN A LIFETIME-USE SMARTSET# [id number] Completed 12/19/2022, 03/25/2022, 11/11/2021, Additional history exists GARDASIL-HPV IMMUNIZATION SERIES Aged Out No longer eligible based on patient's age to complete this topic MENINGOCOCCAL (MENACTRA/MENVEO) Aged Out No longer eligible based on patient's age to complete this topic documented as of this encounter Medical Devices Implanted Type Area Hoisting Laborer Device Identifier Shelf Expiration Date Model / Serial / Lot Lens Intraoc 25.0 - [id number] - [id number] Implanted:Qty: 1 on 09/03/2021 by Deon Griffin MD at OR [facility] Left: Eye [employer] 10/02/2025 [id number] / [id number] / [id number] Lens Intraoc 26.0 - [id number] - [id number] Implanted:Qty: 1 on 09/17/2021 by Deon Griffin MD at OR [facility] Right: Eye BAUSCH [employer] LOMB 10/03/2025 [id number] / [id number] / [id number] documented as of this encounter Care Teams Capsule Filling Machine Operator Relationship Specialty Start Date End Date Dalila Bauman MD 200 [facility] [place] [address] PCP - General Internal Medicine 01/09/21 documented as of this encounter
--- OUTSIDE RECORDS SUMMARY | 2023-08-13 06:45 | External Medical Summary | Summary of Care ---
Author Name Unknown Organization [facility] Address [address] [facility] [address] Phone [phone] Care Team Providers Care Pathology Laboratory Technologist Name Role Phone Dalila Bauman MD Primary Care Provider [phone] Reason for Visit * Reason Comments eRx-Medication Refill Encounter Details Date Type Department Care Team (Late st Contact Info) Description 06/05/2023 Refill Cardiology, [facility] [address] [place] [address] Wiliam Schroeder MD [address] [place] [address] HTN, goal below 150/90; Type 2 diabetes mellitus with stage 3b chronic kidney disease, without long-term current use of insulin ([facility]) Allergies Active Allergy Reactions Criticality Noted Date [...] than 8.0% ([facility]) Use to test blood glucose 3 times daily as directed. 300 Strip 3 09/02/2022 Active Prevagen 10 MG Oral Capsule (Apoaequorin) Take by mouth every evening. 0 Active Furosemide 20 MG Oral Tablet (Lasix)Indications :Type 2 diabetes mellitus with stage 3b chronic kidney disease, without long-term current use of insulin ([facility]),HTN, goal below 150/90,Bilateral leg edema Take 1 to 2 tablets per week. 45 Tablet 3 09/24/2022 Active Lisinopril 20 MG Oral Tablet (Prinivil)Indicati ons:Type 2 diabetes mellitus with stage 3b chronic kidney disease, without long-term current use of insulin ([facility]),HTN, goal below 150/90,History of hypertensive crisis Take 1 Tablet by mouth in the morning and 1 Tablet in the evening. 180 Tablet 3 09/24/2022 Active Isosorbide Dinitrate 30 MG Oral Tablet Take 1 Tablet by mouth in the morning and 1 Tablet at noon and 1 Tablet before bedtime. 270 Tablet 3 09/24/2022 Active Prodigy Lancets 28GIndications:Typ e 2 diabetes mellitus with hemoglobin A1c goal of less than 8.0% ([facility]) Use to test blood glucose 3 times [...] MG Oral Tablet (Lipitor)Indicatio ns:Renal artery stenosis ([facility]),Carotid stenosis, asymptomatic, right,Dyslipidemia , goal LDL below 70 take 1 tablet by mouth at bedtime INCREASE 11/13/2021 90 Tablet 2 04/13/2023 Active Tresiba FlexTouch 100 UNIT/ML Subcutaneous Solution Pen-injector (Insulin Degludec)Indicatio ns:Type 2 diabetes mellitus with hemoglobin A1c goal of less than 8.0% ([facility]) Inject 33 Units under the skin in [...] macular edema presence unspecified, unspecified retinopathy severity ([facility]) take 1 tablet by mouth daily 90 [...] the morning. 90 Tablet 3 06/08/2023 Active hydrALAZINE HCl 100 MG Oral Tablet Take 1 Tablet by mouth in the morning and 1 Tablet at noon and 1 Tablet before bedtime. 270 Tablet 3 09/24/2022 3 Discontinue d(Medicatio n List Clean Up) documented as of this encounter (statuses as [...] LNP-s, No Preserve , Michel-sucrose, Ages 12+ ([email or web address]) 12/18/2021 COVID-19, mRNA, LNP-s, PF, B ooster, [...] encounter Miscellaneous Notes * Telephone Encounter - Charles Coats PA-C - 06/08/2023 2:25 PM EST Signed Prescriptions: Disp Refills hydrALAZINE HCl 100 MG Oral Tablet 270 Ta*3 Sig: Take 1 Tablet by mouth in the morning and 1 Tablet at noon and 1 Tablet before bedtime. Authorizing Provider: CHARLES COATS * Telephone Encounter - Santiago Dumont RN - 06/08/2023 2:08 PM ESTPending Prescriptions: Disp Refills hydrALAZINE HCl 100 MG Oral Tablet 270 Ta*3 Sig: Take 1 Tablet by mouth in the morning and 1 Tablet at noon and 1 Tablet before bedtime. * Telephone Encounter - Santiago Dumont RN - 06/08/2023 2:03 PM EST Pending Prescriptions: Disp Refills hydrALAZINE HCl 100 MG Oral Tablet 270 Ta*3 Sig: Take 1 Tablet by mouth in the morning and 1 Tablet at noon and 1 Tablet before bedtime. Last Visit: 04/30/2023 (in office), Visit date not found (telemedicine) Next Visit: 06/17/2023 Last medication order date: 09/25/2022 Have you choosen a preferred pharm?? 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 disease, with long-term current use of insulin([facility]) E11.22, N18.4, Z79.4 Senile osteoporosis M81.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.2 Hypertensive heart disease with chronic diastolic congestive heart failure ([facility]) I11.0, I50.32 Chronic kidney disease, stage 4 (severe) ([facility]) N18.4 Labs: Lab Results Component Value Date/Time [...] 06/17/2023 3:30 PM EST Office Visit Cardiology, [facility] 132 [facility] [place] [address] Wiliam Schroeder MD [address] [place] [address] 09/11/2023 3:30 PM EST Office Visit Pharmacy, [facility] [place] [address] [place] [address] Pharmacist1, [facility] [address] [place] [address] 09/11/2023 4:00 PM EST Office Visit Nephrology, [facility] [address] [place] [address] Cornel Smith MD 200 [facility] [place] [address] 10/29/2023 1:30 PM EDT Laboratory Laboratory [facility] [address] [facility] [place] [phone] Myrna Gonzalez [facility] 200 [facility] [place] [address] 11/03/2023 2:00 PM EDT Office Visit General Internal Medicine [facility] 200 [facility] [place], [place] [address] Dalila Bauman MD 200 [facility] [place], [place] [address] 11/10/2023 3:00 PM EDT Office Visit Hematology/Oncology [facility] 200 [facility] [place], [place] [address] Joshua Nunez MD 200 [facility] [address] Health Maintenance Due Date Last Done Comments [...] D LEVEL ONCE IN A LIFETIME-USE SMARTSET# [id number] Completed 12/19/2022, 03/25/2022, 11/11/2021, Additional history exists GARDASIL-HPV IMMUNIZATION SERIES Aged Out No longer eligible based on patient's age to complete this topic MENINGOCOCCAL (MENACTRA/MENVEO) Aged Out No longer eligible based on patient's age to complete this topic documented as of this encounter Medical Devices Implanted Type Area Claims Adjuster Supervisor Device Identifier Shelf Expiration Date Model / Serial / Lot Lens Intraoc 25.0 - [id number] - [id number] Implanted:Qty: 1 on 09/03/2021 by Deon Griffin MD at OR [facility] Left: Eye [employer]OM[employer] 10/02/2025 [id number] / [id number] / [id number] Lens Intraoc 26.0 - [id number] - [id number] Implanted:Qty: 1 on 09/17/2021 by Deon Griffin MD at OR [facility] Right: Eye [employer]CH [employer] LOMB 10/03/2025 [id number] / [id number] / [id number] documented as of this encounter Visit Diagnoses Diagnosis HTN, goal below 150/90 Type 2 diabetes mellitus with stage 3b chronic kidney disease, without long-term current use of insulin (HCC) documented in this encounter Care Teams Pathology Laboratory Technologist Relationship Specialty Start Date End Date Dalila Bauman MD 200 [facility] [place] [address] PCP - General Internal Medicine 01/09/21 documented as of this encounter
--- OUTSIDE RECORDS SUMMARY | 2023-08-13 06:46 | External Medical Summary | Summary of Care ---
Author Name Unknown Organization [facility] Address [address] [place] [address] Phone [phone] Care Team Providers Care Vocational Training Instructor Name Role Phone Dalila Bauman MD Primary Care Provider [phone] Reason for Visit * Reason Onset Date Comments Appointment 06/01/2023 recall Encounter Details Date Type Department Care Team (Late st Contact Info) Description 06/01/2023 Telephone Vascular Surg [facility] [address], [place] [phone] Francesco Cohen MD [address] [place] [address] Appointment (recall) Allergies Active Allergy Reactions Criticality Noted Date Comments Latex 01/09/2021 Penicillins 01/09/2021 Sulfa Antibiotics 01/09/2021 documented as of this encounter (statuses as of 06/05/2023) Medications Medication Sig Dispensed Refills Start Date [...] hemoglobin A1c goal of less than 8.0% ([facility]) Use with Lantus once daily 100 Each 3 09/02/2022 Active Prodigy No Coding Blood Gluc In Vitro Strip (Glucose Blood)Indications:T ype 2 diabetes mellitus with hemoglobin A1c goal of less than 8.0% ([facility]) Use to test blood glucose 3 times daily as directed. 300 Strip 3 09/02/2022 Active Prevagen 10 MG Oral Capsule (Apoaequorin) Take by mouth every evening. 0 Active hydrALAZINE HCl 100 MG Oral Tablet Take 1 Tablet by mouth in the morning and 1 Tablet at noon and 1 Tablet before bedtime. 270 Tablet 3 09/24/2022 Active Furosemide 20 MG Oral Tablet (Lasix)Indications: Type 2 diabetes mellitus with stage 3b chronic kidney disease, without long-term current use of insulin ([facility]),HTN, goal below 150/90,Bilateral leg edema Take 1 to 2 tablets per week. 45 Tablet 3 09/24/2022 Active Lisinopril 20 MG Oral Tablet (Prinivil)Indicatio ns:Type 2 diabetes mellitus with stage 3b chronic kidney disease, without long-term current use of insulin ([facility]),HTN, goal below 150/90,History of hypertensive crisis Take 1 Tablet by mouth in the morning and 1 Tablet in the evening. 180 Tablet 3 09/24/2022 Active Isosorbide Dinitrate 30 MG Oral Tablet Take 1 Tablet by mouth in the morning and 1 Tablet at noon and 1 Tablet before bedtime. 270 Tablet 3 09/24/2022 Active Prodigy Lancets 28GIndications:Type 2 diabetes mellitus with hemoglobin A1c goal of less than 8.0% ([facility]) Use to test blood glucose 3 [...] Oral Capsule Take by mouth. 0 Active Jardiance 25 MG Oral Tablet (Empagliflozin)Dora cations:Type 2 diabetes mellitus with hemoglobin A1c goal of less than 8.0% ([facility]),Type 2 diabetes mellitus with stage 3b chronic kidney disease, without long-term current use of insulin ([facility]) take 1 tablet by mouth every morning INCREASE BACK 11/14/21 AND STOP METFORMIN 90 Tablet 1 01/22/2023 Active Repaglinide 2 MG Oral Tablet (Prandin)Indication s:Type 2 diabetes mellitus with hemoglobin A1c goal of less than 8.0% ([facility]) take 1 tablet by mouth three times a day BEFORE MEALS Strength: 2 mg 270 Tablet 3 2023 Active Sertraline HCl 50 MG Oral Tablet (Zoloft) TAKE 1/2 A TABLET BY MOUTH EVERY MORNING 45 Tablet 3 03/02/2023 Active Atorvastatin Calcium 80 MG Oral Tablet (Lipitor)Indication s:Renal artery stenosis ([facility]),Carotid stenosis, asymptomatic, right,Dyslipidemia, goal LDL below 70 take 1 tablet by mouth at bedtime INCREASE 11/13/2021 90 Tablet 2 04/13/2023 Active Tresiba FlexTouch 100 UNIT/ML Subcutaneous Solution Pen-injector (Insulin Degludec)Indication s:Type 2 diabetes mellitus with hemoglobin A1c goal of less than 8.0% ([facility]) Inject 33 Units under the skin [...] at bedtime 90 Tablet 3 05/26/2023 Active documented as of this encounter (statuses as of 06/05/2023) Active Problems Problem Noted Date Diagnosed Date [...] as of this encounter (statuses as of 06/05/2023) Resolved Problems Problem Noted Date Diagnosed Date Resolved Date Chronic kidney disease, stage 3b 03/17/2022 05/21/2023 Overview: Per CKD protocol Type 2 diabetes mellitus wit h stage 3b chronic kidney disease, without long-term current use of insulin 07/26/2021 03/20/2022 Overview: Per CKD protocol documented as of this encounter (statuses as of 06/05/2023) Immunizations Name Administration Dates Next Due COVID-19 [...] encounter Miscellaneous Notes * Telephone Encounter - Zeinab Bueno, PATRICK - 06/05/2023 9:50 AM EST Sent [facility] * Telephone Encounter - Zeinab Bueno OSA - 06/03/2023 11:18 AM EST Called patient x2 to reschedule her for her cancelled appt Left message * Telephone Encounter - Zeinab Bueno OSA - 06/01/2023 10:46 AM EST Patient cancelled her appt for 06/03 I called to reschedule her and left a message for her to call and reschedule [facility] documented in this encounter Plan of Treatment Upcoming Encounters Date Type Department Care Team (Late st Contact Info) Description 06/17/2023 3:30 PM EST Office Visit Cardiology, [facility] [address] [place] [address] Wiliam Schroeder MD [address] [place] [address] 09/11/2023 3:30 PM EST Office Visit Pharmacy, [facility] [place] [address] [place] [address] Pharmacist1, [facility] [address] [place] [address] [address] 09/11/2023 4:00 PM EST Office Visit Nephrology, [facility] [address] [place] [address] [address] Cornel Smith MD [address] [place] [address] 10/29/2023 1:30 PM EDT Laboratory Laboratory [facility] [place] [address] [id number] Myrna Gonzalez [facility] 200 [facility] [place] [address] 11/03/2023 2:00 PM EDT Office Visit General Internal Medicine [facility] [address] [facility] [address] [place], [place] [address] Dalila Bauman MD 200 [facility] [place] [address] 11/10/2023 3:00 PM EDT Office Visit Hematology/Oncology [facility] [place] 200 [facility] [place], [place] [address] Joshua Nunez MD 200 [facility] [place], [place] [address] Health Maintenance Due Date Last Done Comments Pneumococcal Vaccine: 65+ Years (1 - PCV) 02/18/1941 DTaP,Tdap,and Td Vaccines (1 - Tdap) 1953 Zoster Vaccines (1 of 2) 02/18/1984 Hepatitis B (1 of 3 - Risk 3-dose series) 1994 Diabetic Foot Exam 10/16/2022 10/16/2021 COVID-19 Vaccine ( - 2022- season) 2023 12/18/2021, 07/11/2021, 12/11/2020, Additional history exists Influenza Vaccine (FLU shot) (#1) 2023 Albumin/Creatinine Ratio 09/01/2023 09/01/2022, 07/07 Depression Screening 10/25/2023 10/24/2022 HbA1c 10/30/2023 04/30/2023, 12/04, 09/01/2022, Additional history exists Diabetic Eye Exam 12/11/2023 12/10/2022, , 12/10/2022, Additional history exists DXA Scan 03/17/2024 03/17/2022, 03/17/2022 VITAMIN D LEVEL ONCE IN A LIFETIME-USE SMARTSET# [id number] Completed 12/19/2022, 03/25/2022, 11/11/2021, Additional history exists GARDASIL-HPV IMMUNIZATION SERIES Aged Out No longer eligible based on patient's age to complete this topic MENINGOCOCCAL (MENACTRA/MENVEO) Aged Out No longer eligible based on patient's age to complete this topic documented as of this encounter Medical Devices Implanted Type Area Remotely Piloted Vehicle Controller Device Identifier Shelf Expiration Date Model / Serial / Lot Lens Intraoc 25.0 - [id number] - [id number] Implanted:Qty: 1 on 09/03/2021 by Deon Griffin MD at OR [facility] Left: Eye [employer] 10/02/2025 [id number] / [id number] / [id number] Lens Intraoc 26.0 - [id number] - [id number] Implanted:Qty: 1 on 09/17/2021 by Deon Griffin MD at OR [facility] Right: Eye [employer]OMB 10/03/2025 [id number] / [id number] / [id number] documented as of this encounter Care Teams Vocational Training Instructor Relationship Specialty Start Date End Date Dalila Bauman MD 200 [facility], [place] [address] PCP - General Internal Medicine 01/09/21 documented as of this encounter
--- OUTSIDE RECORDS SUMMARY | 2023-08-13 06:46 | External Medical Summary | Summary of Care ---
Author Name Unknown Organization [facility] Address [address] [place] [address] Phone [phone] Care Team Providers Care Rehabilitation Clerk Name Role Phone Dalila Bauman MD Primary Care Provider [phone] Reason for Visit * Reason Comments eRx-Medication Refill Encounter Details Date Type Department Care Team (Late st Contact Info) Description 05/19/2023 Refill General Internal Medicine [facility] [place] [address] [facility] [place] [id number] Dalila Bauman MD 200 [facility] [address] Type 2 diabetes mellitus with retinopathy of both eyes, without long-term current use of insulin, macular edema presence unspecified, unspecified retinopathy severity (HCC) Allergies Active Allergy Reactions Criticality Noted Date Comments Latex 01/09/2021 Penicillins 01/09/2021 Sulfa Antibiotics 01/09/2021 documented as of this encounter (statuses as of 05/20/2023) Medications Medication Sig Dispensed Refills Start Date [...] 01/09/2021 Active Prodigy Voice Blood Glucose w/Device KitIndications:Ty pe 2 diabetes mellitus with hemoglobin A1c goal of less than 8.0% (HCC) Use to test blood glucose 3 times daily. DX: E11.9. 1 Kit 0 07/15/2021 Active FreeStyle Jimmy 2 SensorIndications :Type 2 diabetes mellitus with hemoglobin A1c goal of less than 8.0% ([facility]) Use as directed every 14 days . [...] Tablets daily . Macuhealth Plus 0 Active RA Loratadine 10 MG Oral Tablet (Loratadine)Indic ations:Seasonal allergic rhinitis due to pollen,Mucous retention cyst of maxillary sinus take 1 tablet by mouth at bedtime 90 Tablet 3 05/14/2022 Active Insulin Pen Needle 32G X 6 MMIndications:Typ e 2 diabetes mellitus with hemoglobin A1c goal of less than 8.0% (HCC) Use with Lantus once daily 100 Each 3 09/02/2022 Active Prodigy No Coding Blood Gluc In Vitro Strip (Glucose Blood)Indications :Type 2 diabetes mellitus with hemoglobin A1c goal of less than 8.0% ([facility]) Use to test blood glucose 3 [...] long-term current use of insulin ([facility]),HTN, goal below 150/90,Bilateral leg edema Take 1 to 2 tablets per week. 45 Tablet 3 09/24/2022 Active Lisinopril 20 MG Oral Tablet (Prinivil)Indicat ions:Type 2 diabetes mellitus with stage 3b chronic kidney disease, without long-term current use of insulin ([facility]),HTN, goal below 150/90,History of hypertensive crisis Take 1 Tablet by mouth in the morning and 1 Tablet in the evening. 180 Tablet 3 09/24/2022 Active Isosorbide Dinitrate 30 MG Oral Tablet Take 1 Tablet by mouth in the morning and 1 Tablet at noon and 1 Tablet before bedtime. 270 Tablet 3 09/24/2022 Active Prodigy Lancets 28GIndications:Ty pe 2 [...] 0 Active Jardiance 25 MG Oral Tablet (Empagliflozin)In dications:Type 2 diabetes mellitus with hemoglobin A1c goal of less than 8.0% (HCC),Type 2 diabetes mellitus with stage 3b chronic kidney disease, without long-term current use of insulin (HCC) take 1 tablet by mouth every morning INCREASE BACK 11/14/21 AND STOP METFORMIN 90 Tablet 1 01/22/2023 Active Repaglinide 2 MG Oral Tablet (Prandin)Indicati [...] mouth daily 90 Tablet 1 05/20/2023 Active Tradjenta 5 MG Oral Tablet (linaGLIPtin)Dora cations:Type 2 diabetes mellitus with retinopathy of both eyes, without long-term current use of insulin, macular edema presence unspecified, unspecified retinopathy severity (HCC) take 1 tablet by mouth daily 90 Tablet 1 11/27/2022 05/20/20 23 Discontinued documented as of this encounter (statuses as of 05/20/2023) Active Problems Problem Noted Date Diagnosed Date Hypertensive heart disease w ith chronic diastolic congestive heart failure 05/12/2023 MGUS (monoclonal gammopathy of unknown significa nce) 09/12/2022 Overview: 09/25-- -A monoclonal IgG kappa gammopathy is present. Submit urine soon; refer to Hematology for evaluation as discussed. Senile osteoporosis 04/23/2022 Chronic kidney disease, stage 3b 03/17/2022 Overview: Per CKD protocol Type 2 diabetes [...] as of this encounter (statuses as of 05/20/2023) Resolved Problems Problem Noted Date Diagnosed Date Resolved Date Type 2 diabetes mellitus wit h stage 3b chronic kidney disease, without long-term current use of insulin 07/26/2021 03/20/2022 Overview: Per CKD protocol documented as of this encounter (statuses as of 05/20/2023) Immunizations Name Administration Dates Next Due COVID-19 [...] encounter Miscellaneous Notes * Telephone Encounter - Gallo Willis [facility] - 05/20/2023 10:36 AM ESTSigned Prescriptions: Disp Refills Tradjenta 5 MG Oral Tablet (linaGLIPtin) 90 Tab*1 Sig: take 1 tablet by mouth dailyAuthorizing Provider: Luana BAUMAN User: GALLO WILLIS documented in this encounter Plan of Treatment Upcoming Encounters Date Type Department Care Team (Late st Contact Info) Description 05/25/2023 2:00 PM EST Imaging Vascular Lab, [facility] [address] [facility] [place] [address] 06/03/2023 1:30 PM EST Office Visit Vascular Surgery, [facility] 132 [place] [address] Francesco Cohen MD [address] [place] [address] 06/17/2023 3:30 PM EST Office Visit Cardiology, [facility] 132 [facility] [place] [address] Wiliam Schroeder MD 132 [facility] [place] [address] 09/11/2023 3:30 PM EST Office Visit Pharmacy, [facility] [address] [facility], [facility] 200 [facility] [place] [address] 09/11/2023 4:00 PM EST Office Visit Nephrology, [facility] [address] [facility] [place] [place] [address] Cornel Smith MD 200 [facility] [place] [address] 10/29/2023 1:30 PM EDT Laboratory Laboratory [facility] [address] [facility] [place] [phone] [facility] [address] [place] [address] 11/03/2023 2:00 PM EDT Office Visit General Internal Medicine [facility] [address] [facility] [place] [address] Dalila Bauman MD 200 [facility] [place] [address] 11/10/2023 3:00 PM EDT Office Visit Hematology/Oncology [facility] [address] [facility] [place] [address] Joshua Nunez MD 200 [facility] [place] [address] Health Maintenance Due Date Last Done Comments Pneumococcal Vaccine: 65+ Years (1 - PCV) 02/18/1941 DTaP,Tdap,and Td Vaccines (1 - Tdap) 1953 Zoster Vaccines (1 of 2) 02/18/1984 Hepatitis B (1 of 3 - Risk 3-dose series) 1994 Diabetic Foot Exam 10/16/2022 10/16/2021 COVID-19 Vaccine (5 - 2022-24 season) 2023 12/18/2021, 07/11/2021, 12/11/2020, Additional history exists Influenza Vaccine (FLU shot) (#1) 2023 Albumin/Creatinine Ratio 09/01/2023 09/01/2022, 07/07 Depression Screening 10/25/2023 10/24/2022 HbA1c 10/30/2023 04/30/2023, 12/04, 09/01/2022, Additional history exists Diabetic Eye Exam 12/11/2023 12/10/2022, 05/10/2021 DXA Scan 03/17/2024 03/17/2022 VITAMIN D LEVEL ONCE IN A LIFETIME-USE SMARTSET# [id number] Completed 12/19/2022, 03/25/2022, 11/11/2021, Additional history exists GARDASIL-HPV IMMUNIZATION SERIES Aged Out No longer eligible based on patient's age to complete this topic MENINGOCOCCAL (MENACTRA/MENVEO) Aged Out No longer eligible based on patient's age to complete this topic documented as of this encounter Medical Devices Implanted Type Area Cylindrical Mixer Device Identifier Shelf Expiration Date Model / Serial / Lot Lens Intraoc 25.0 - [id number] - [id number] Implanted:Qty: 1 on 09/03/2021 by Deon Griffin MD at OR [facility] Left: Eye [employer] 10/02/2025 [id number] / [id number] / [id number] Lens Intraoc 26.0 - [id number] - [id number] Implanted:Qty: 1 on 09/17/2021 by Deon Griffin MD at OR [facility] Right: Eye [employer]OMB 10/03/2025 [id number] / [id number] / [id number] documented as of this encounter Visit Diagnoses Diagnosis Type 2 diabetes mellitus with retinopathy of both eyes, without long-term current use of insulin, macular edema presence unspecified, unspecified retinopathy severity (HCC) documented in this encounter Care Teams Rehabilitation Clerk Relationship Specialty Start Date End Date Dalila Bauman MD 200 [facility] [place] [address] PCP - General Internal Medicine 01/09/21 documented as of this encounter
--- OUTSIDE RECORDS SUMMARY | 2023-08-13 06:46 | External Medical Summary | Summary of Care ---
Author Name Unknown Organization [facility] Address [address] [place] [address] Phone [phone] Care Team Providers Care Seam Hammerer Name Role Phone Dalila Bauman MD Primary Care Provider [phone] Reason for Visit * Reason Comments eRx-Medication Refill Encounter Details Date Type Department Care Team (Late st Contact Info) Description 05/25/2023 Refill General Internal Medicine [facility] [place] [address] [facility] [place] [id number] Dalila Bauman MD [address] [facility] [address] Seasonal allergic rhinitis due to pollen; Mucous retention cyst of maxillary sinus Allergies Active Allergy Reactions Criticality Noted Date Comments Latex 01/09/2021 Penicillins 01/09/2021 Sulfa Antibiotics 01/09/2021 documented as of this encounter (statuses as of 05/26/2023) Medications Medication Sig Dispensed Refills Start Date [...] goal of less than 8.0% ([facility]) Use with Lantus once daily 100 Each 3 09/02/2022 Active Prodigy No Coding Blood Gluc In Vitro Strip (Glucose Blood)Indications :Type 2 diabetes mellitus with hemoglobin A1c goal of less than 8.0% ([facility]) Use to test blood glucose 3 [...] long-term current use of insulin ([facility]),HTN, goal below 150/90,Bilateral leg edema Take 1 to 2 tablets per week. 45 Tablet 3 09/24/2022 Active Lisinopril 20 MG Oral Tablet (Prinivil)Indicat ions:Type 2 diabetes mellitus with stage 3b chronic kidney disease, without long-term current use of insulin ([facility]),HTN, goal below 150/90,History of hypertensive crisis [...] goal of less than 8.0% ([facility]) Use to test blood glucose 3 [...] goal of less than 8.0% ([facility]) take 1 tablet by mouth three times [...] goal of less than 8.0% ([facility]) Inject 33 Units under the skin [...] at bedtime 90 Tablet 3 05/26/2023 Active RA Loratadine 10 MG Oral Tablet (Loratadine)Indic ations:Seasonal allergic rhinitis due to pollen,Mucous retention cyst of maxillary sinus take 1 tablet by mouth at bedtime 90 Tablet 3 05/14/2022 05/26/20 23 Discontinued documented as of this encounter (statuses as of 05/26/2023) Active Problems Problem Noted Date Diagnosed Date [...] as of this encounter (statuses as of 05/26/2023) Resolved Problems Problem Noted Date Diagnosed Date Resolved Date Chronic kidney disease, stage 3b 03/17/2022 05/21/2023 Overview: Per CKD protocol Type 2 diabetes mellitus wit h stage 3b chronic kidney disease, without long-term current use of insulin 07/26/2021 03/20/2022 Overview: Per CKD protocol documented as of this encounter (statuses as of 05/26/2023) Immunizations Name Administration Dates Next Due COVID-19 mRNA, LNP-s, No Pre serve, 2-Dose Series (Moderna) 12/11/2020,11/13/2020 COVID-19, LNP-s, No Preserve , Michel-sucrose, Ages 12+ (Zoomph) 12/18/2021 COVID-19, mRNA, LNP-s, PF, B ooster, [...] encounter Miscellaneous Notes * Telephone Encounter - Mario Gant [facility] - 05/26/2023 3:38 PM ESTSigned Prescriptions: Disp Refills Loratadine 10 MG Oral Tablet (Claritin) 90 Tab*3 Sig: take 1 tablet by mouth at bedtimeAuthorizing Provider: Luana BAUMAN User: MARIO GANT documented in this encounter Plan of Treatment Upcoming Encounters Date Type Department Care Team (Late st Contact Info) Description 06/03/2023 1:00 PM EST Imaging [facility] [address] [facility] [address] 06/03/2023 1:30 PM EST Office Visit Vascular Surgery, [facility] 132 [place] [address] Francesco Cohen MD [address] [place] [address] 06/17/2023 3:30 PM EST Office Visit Cardiology, [facility] 132 [facility] [place] [address] Wiliam Schroeder MD 132 [facility] [place] [address] 09/11/2023 3:30 PM EST Office Visit Pharmacy, [facility] [address] [facility] [place] [address] Pharmacist1, [facility] 200 [facility] [place] [address] 09/11/2023 4:00 PM EST Office Visit Nephrology, [facility] [address] [facility] [place] [address] Cornel Smith MD [address] [facility] [place] [address] 10/29/2023 1:30 PM EDT Laboratory Laboratory [facility] [address] [facility] [place] [phone] [facility] [address] [place] [address] 11/03/2023 2:00 PM EDT Office Visit General Internal Medicine [facility] [address] [facility] [place] [address] Dalila Bauman MD [address] [facility] [place] [address] 11/10/2023 3:00 PM EDT Office Visit Hematology/Oncology [facility] [address] [facility] [place] [address] Joshua Nunez MD [address] [facility] [place] [address] Health Maintenance Due Date Last Done Comments [...] D LEVEL ONCE IN A LIFETIME-USE SMARTSET# [id number] Completed 12/19/2022, 03/25/2022, 11/11/2021, Additional history exists GARDASIL-HPV IMMUNIZATION SERIES Aged Out No longer eligible based on patient's age to complete this topic MENINGOCOCCAL (MENACTRA/MENVEO) Aged Out No longer eligible based on patient's age to complete this topic documented as of this encounter Medical Devices Implanted Type Area Cnc Lathe Machine Operator Device Identifier Shelf Expiration Date Model / Serial / Lot Lens Intraoc 25.0 - [id number] - [id number] Implanted:Qty: 1 on 09/03/2021 by Deon Griffin MD at OR [facility] Left: Eye [employer]OMB 10/02/2025 [id number] / [id number] / [id number] Lens Intraoc 26.0 - [id number] - [id number] Implanted:Qty: 1 on 09/17/2021 by Deon Griffin MD at OR [facility] Right: Eye BA[employer]CH [employer] LOMB 10/03/2025 [id number] / [id number] / [id number] documented as of this encounter Visit Diagnoses Diagnosis Seasonal allergic rhinitis due to pollen Mucous retention cyst of maxillary sinus Other diseases of nasal cavity and sinuses documented in this encounter Care Teams Seam Hammerer Relationship Specialty Start Date End Date Dalila Bauman MD 200 [facility] [place] [address] PCP - General Internal Medicine 01/09/21 documented as of this encounter
--- OUTSIDE RECORDS SUMMARY | 2023-08-13 06:46 | External Medical Summary | Summary of Care ---
Author Name Unknown Organization [facility] Address [address] [place] [address] Phone [phone] Care Team Providers Care Flat Screen Worker Name Role Phone Dalila Bauman MD Primary Care Provider [phone] Reason for Visit * Reason Onset Date Comments Appointment 06/01/2023 recall Encounter Details Date Type Department Care Team (Late st Contact Info) Description 06/01/2023 Telephone Vascular Surg [facility] [address] [place], [place] [phone] Francesco Cohen MD [address] [place] [address] Appointment (recall) Allergies Active Allergy [...] hemoglobin A1c goal of less than 8.0% ([facility]) Use with Lantus once daily 100 Each 3 09/02/2022 Active Prodigy No Coding Blood Gluc In Vitro Strip (Glucose Blood)Indications:T ype 2 diabetes mellitus with hemoglobin A1c goal of less than 8.0% ([facility]) Use to test blood glucose [...] disease, without long-term current use of insulin ([facility]),HTN, goal below 150/90,Bilateral leg edema Take 1 to 2 tablets per week. 45 Tablet 3 09/24/2022 Active Lisinopril 20 MG Oral Tablet (Prinivil)Indicatio ns:Type 2 diabetes mellitus with stage 3b chronic kidney disease, without long-term current use of insulin ([facility]),HTN, goal below 150/90,History of hypertensive [...] hemoglobin A1c goal of less than 8.0% ([facility]) Use to test blood glucose [...] hemoglobin A1c goal of less than 8.0% ([facility]),Type 2 diabetes mellitus with stage 3b chronic kidney disease, without long-term current use of insulin ([facility]) take 1 tablet by mouth every morning INCREASE BACK 11/14/21 AND STOP METFORMIN 90 Tablet 1 01/22/2023 Active Repaglinide 2 MG Oral Tablet (Prandin)Indication s:Type 2 diabetes mellitus with hemoglobin A1c goal of less than 8.0% ([facility]) take 1 tablet by mouth three times a day BEFORE MEALS Strength: 2 mg 270 Tablet 3 2023 Active Sertraline HCl 50 MG Oral Tablet (Zoloft) TAKE 1/2 A TABLET BY MOUTH EVERY MORNING 45 Tablet 3 03/02/2023 Active Atorvastatin Calcium 80 MG Oral Tablet (Lipitor)Indication s:Renal artery stenosis ([facility]),Carotid stenosis, asymptomatic, right,Dyslipidemia, goal LDL below 70 take 1 tablet by mouth at bedtime INCREASE 11/13/2021 90 Tablet 2 04/13/2023 Active Tresiba FlexTouch 100 UNIT/ML Subcutaneous Solution Pen-injector (Insulin Degludec)Indication s:Type 2 diabetes mellitus with hemoglobin A1c goal of less than 8.0% ([facility]) Inject 33 Units under the [...] - 06/05/2023 9:50 AM EST Sent letter [facility] * Telephone Encounter - Zeinab Bueno OSA - 06/03/2023 11:18 AM EST Called patient x2 to reschedule her for her cancelled appt Left message * Telephone Encounter - Zeinab Bueno OSA - 06/01/2023 10:46 AM EST Patient cancelled her appt for 06/03 I called to reschedule her and left a message for her to call and reschedule [facility] documented in this encounter Plan of Treatment Upcoming Encounters Date Type Department Care Team (Late st Contact Info) Description 06/17/2023 3:30 PM EST Office Visit Cardiology, [facility] [address] [place] [address] Wiliam Schroeder MD [address] [place] [address] 09/11/2023 3:30 PM EST Office Visit Pharmacy, [facility] [place] [address] [place] [address] Pharmacist1, [facility] [address] [place] [address] [address] 09/11/2023 4:00 PM EST Office Visit Nephrology, [facility] [address] [place] [address] Cornel Smith MD [address] [place] [address] 10/29/2023 1:30 PM EDT Laboratory Laboratory [facility] [place] [address] [place] [address] [phone] Myrna Gonzalez [facility] 200 [facility] [place] [address] 11/03/2023 2:00 PM EDT Office Visit General Internal Medicine [facility] [address] [facility] [address] [place], [place] [address] Dalila Bauman MD 200 [facility] [place] [address] 11/10/2023 3:00 PM EDT Office Visit Hematology/Oncology [facility] [place] 200 [facility] [place], [place] [address] Joshua Nunez MD 200 [facility] [place], [place] [address] Health Maintenance Due Date Last Done Comments [...] D LEVEL ONCE IN A LIFETIME-USE SMARTSET# [id number] Completed 12/19/2022, 03/25/2022, 11/11/2021, Additional history exists GARDASIL-HPV IMMUNIZATION SERIES Aged Out No longer eligible based on patient's age to complete this topic MENINGOCOCCAL (MENACTRA/MENVEO) Aged Out No longer eligible based on patient's age to complete this topic documented as of this encounter Medical Devices Implanted Type Area Ticket Maker Device Identifier Shelf Expiration Date Model / Serial / Lot Lens Intraoc 25.0 - [id number] - [id number] Implanted:Qty: 1 on 09/03/2021 by Deon Griffin MD at OR [facility] Left: Eye [employer]OM[employer] 10/02/2025 [id number] / [id number] / [id number] Lens Intraoc 26.0 - [id number] - [id number] Implanted:Qty: 1 on 09/17/2021 by Deon Griffin MD at OR [facility] Right: Eye [employer]CH [employer] LOMB 10/03/2025 [id number] / [id number] / [id number] documented as of this encounter Care Teams Flat Screen Worker Relationship Specialty Start Date End Date Dalila Bauman MD 200 [facility], [place] [address] PCP - General Internal Medicine 01/09/21 documented as of this encounter
--- OUTSIDE RECORDS SUMMARY | 2023-08-13 06:46 | External Medical Summary | Summary of Care ---
Author Name Unknown Organization [facility] Address [address] [facility] [place] [address] Phone [phone] Care Team Providers Care Shot Blast Equipment Operator Name Role Phone Dalila Bauman MD Primary Care Provider [phone] Reason for Visit * Reason Comments eRx-Medication Refill Encounter Details Date Type Department Care Team (Late st Contact Info) Description 06/05/2023 Refill Family Practice State Amanda Dalal 200 [facility] [place] [address] Francesco Thomas III, MD [facility] [address] Allergies Active Allergy Reactions Criticality Noted Date Comments Latex 01/09/2021 Penicillins 01/09/2021 Sulfa Antibiotics 01/09/2021 documented as of this encounter (statuses as of 06/06/2023) Medications Medication Sig Dispensed Refills Start Date [...] hemoglobin A1c goal of less than 8.0% ([facility]) Use to test blood glucose 3 times [...] disease, without long-term current use of insulin ([facility]),HTN, goal below 150/90,Bilateral leg edema Take 1 to 2 tablets per week. 45 Tablet 3 09/24/2022 Active Lisinopril 20 MG Oral Tablet (Prinivil)Indicatio ns:Type 2 diabetes mellitus with stage 3b chronic kidney disease, without long-term current use of insulin ([facility]),HTN, goal below 150/90,History of hypertensive crisis Take [...] hemoglobin A1c goal of less than 8.0% ([facility]) Use to test blood glucose 3 times [...] hemoglobin A1c goal of less than 8.0% ([facility]),Type 2 diabetes mellitus with stage 3b chronic kidney disease, without long-term current use of insulin ([facility]) take 1 tablet by mouth every morning INCREASE BACK 11/14/21 AND STOP METFORMIN 90 Tablet 1 01/22/2023 Active Repaglinide 2 MG Oral Tablet (Prandin)Indication s:Type 2 diabetes mellitus with hemoglobin A1c goal of less than 8.0% ([facility]) take 1 tablet by mouth three times a day BEFORE MEALS Strength: 2 mg 270 Tablet 3 2023 Active Sertraline HCl 50 MG Oral Tablet (Zoloft) TAKE 1/2 A TABLET BY MOUTH EVERY MORNING 45 Tablet 3 03/02/2023 Active Atorvastatin Calcium 80 MG Oral Tablet (Lipitor)Indication s:Renal artery stenosis ([facility]),Carotid stenosis, asymptomatic, right,Dyslipidemia, goal LDL below 70 take 1 tablet by mouth at bedtime INCREASE 11/13/2021 90 Tablet 2 04/13/2023 Active Tresiba FlexTouch 100 UNIT/ML Subcutaneous Solution Pen-injector (Insulin Degludec)Indication s:Type 2 diabetes mellitus with hemoglobin A1c goal of less than 8.0% ([facility]) Inject 33 Units under the skin in [...] as of this encounter (statuses as of 06/06/2023) Active Problems Problem Noted Date Diagnosed Date [...] as of this encounter (statuses as of 06/06/2023) Resolved Problems Problem Noted Date Diagnosed Date Resolved Date Chronic kidney disease, stage 3b 03/17/2022 05/21/2023 Overview: Per CKD protocol Type 2 diabetes mellitus wit h stage 3b chronic kidney disease, without long-term current use of insulin 07/26/2021 03/20/2022 Overview: Per CKD protocol documented as of this encounter (statuses as of 06/06/2023) Immunizations Name Administration Dates Next Due COVID-19 [...] encounter Miscellaneous Notes * Telephone Encounter - Purnima Kaur RP - 06/06/2023 11:20 AM ESTRefused Prescriptions: Disp Refills Spironolactone 25 MG Oral Tablet ([place]*30 Tab*11 Sig: TAKE 1/2 TABLET BY MOUTH ON THURSDAY, THURSDAY AND THURSDAYRefused By: Aubrey KAUR for Refusal: Course of treatment complete documented in this encounter Plan of Treatment Upcoming Encounters Date Type Department Care Team (Late st Contact Info) Description 06/17/2023 3:30 PM EST Office Visit Cardiology, [facility] [address] [address] Wiliam Schroeder MD [address] [address] 09/11/2023 3:30 PM EST Office Visit Pharmacy, [facility] [place] [address] [place] [address] Pharmacist1, [facility] [address] [facility] [place] [address] 09/11/2023 4:00 PM EST Office Visit Nephrology, [facility] [place] [address] [place] [address] Cornel Smith MD [address] [place] [address] 10/29/2023 1:30 PM EDT Laboratory Laboratory [facility] [place] [address] [place] [address] [phone] Myrna Gonzalez [address] [facility] [place] [address] 11/03/2023 2:00 PM EDT Office Visit General Internal Medicine [facility] [place] [address] [place] [address] [address] Dalila Bauman MD 200 [facility] [place], [place] [address] 11/10/2023 3:00 PM EDT Office Visit Hematology/Oncology [address] [place] [address] [facility] [place] [address] Joshua Nunez MD 200 [facility] [place], [place] [address] Health Maintenance Due Date Last Done Comments [...] D LEVEL ONCE IN A LIFETIME-USE SMARTSET# [id number] Completed 12/19/2022, 03/25/2022, 11/11/2021, Additional history exists GARDASIL-HPV IMMUNIZATION SERIES Aged Out No longer eligible based on patient's age to complete this topic MENINGOCOCCAL (MENACTRA/MENVEO) Aged Out No longer eligible based on patient's age to complete this topic documented as of this encounter Medical Devices Implanted Type Area Dowel Sander Operator Device Identifier Shelf Expiration Date Model / Serial / Lot Lens Intraoc 25.0 - [id number] - [id number] Implanted:Qty: 1 on 09/03/2021 by Deon Griffin MD at OR [facility] Left: Eye [employer] 10/02/2025 [id number] / [id number] / [id number] Lens Intraoc 26.0 - [id number] - [id number] Implanted:Qty: 1 on 09/17/2021 by Deon Griffin MD at OR [facility] Right: Eye [employer] 10/03/2025 [id number] / [id number] / [id number] documented as of this encounter Care Teams Shot Blast Equipment Operator Relationship Specialty Start Date End Date Dalila Bauman MD 200 [place] [address] PCP - General Internal Medicine 01/09/21 documented as of this encounter
--- OUTSIDE RECORDS SUMMARY | 2023-08-13 06:46 | External Medical Summary | Summary of Care ---
Author Name Unknown Organization [facility] Address [address] [place] [address] Phone [phone] Care Team Providers Care Lodge Attendant Name Role Phone Dalila Bauman MD Primary Care Provider [phone] Reason for Visit * Reason Onset Date Comments Appointment 06/01/2023 recall Encounter Details Date Type Department Care Team (Late st Contact Info) Description 06/01/2023 Telephone Vascular Surg [facility] [address], [place] [id number] Francesco Cohen MD [address] [place] [address] Appointment (recall) Allergies Active Allergy Reactions Criticality Noted Date Comments Latex 01/09/2021 Penicillins 01/09/2021 Sulfa Antibiotics 01/09/2021 documented as of this encounter (statuses as of 06/01/2023) Medications Medication Sig Dispensed Refills Start Date [...] A1c goal of less than 8.0% ([facility]) Use with Lantus once daily 100 Each 3 09/02/2022 Active Prodigy No Coding Blood Gluc In Vitro Strip (Glucose Blood)Indications:T ype 2 diabetes mellitus with hemoglobin A1c goal of less than 8.0% ([facility]) Use to test blood glucose 3 [...] without long-term current use of insulin ([facility]),HTN, goal below 150/90,Bilateral leg edema Take 1 to 2 tablets per week. 45 Tablet 3 09/24/2022 Active Lisinopril 20 MG Oral Tablet (Prinivil)Indicatio ns:Type 2 diabetes mellitus with stage 3b chronic kidney disease, without long-term current use of insulin ([facility]),HTN, goal below 150/90,History of hypertensive crisis [...] A1c goal of less than 8.0% ([facility]) Use to test blood glucose 3 [...] A1c goal of less than 8.0% ([facility]),Type 2 diabetes mellitus with stage 3b chronic kidney disease, without long-term current use of insulin ([facility]) take 1 tablet by mouth every morning INCREASE BACK 11/14/21 AND STOP METFORMIN 90 Tablet 1 01/22/2023 Active Repaglinide 2 MG Oral Tablet (Prandin)Indication s:Type 2 diabetes mellitus with hemoglobin A1c goal of less than 8.0% ([facility]) take 1 tablet by mouth three times a day BEFORE MEALS Strength: 2 mg 270 Tablet 3 2023 Active Sertraline HCl 50 MG Oral Tablet (Zoloft) TAKE 1/2 A TABLET BY MOUTH EVERY MORNING 45 Tablet 3 03/02/2023 Active Atorvastatin Calcium 80 MG Oral Tablet (Lipitor)Indication s:Renal artery stenosis ([facility]),Carotid stenosis, asymptomatic, right,Dyslipidemia, goal LDL below 70 take 1 tablet by mouth at bedtime INCREASE 11/13/2021 90 Tablet 2 04/13/2023 Active Tresiba FlexTouch 100 UNIT/ML Subcutaneous Solution Pen-injector (Insulin Degludec)Indication s:Type 2 diabetes mellitus with hemoglobin A1c goal of less than 8.0% ([facility]) Inject 33 Units under the skin [...] as of this encounter (statuses as of 06/01/2023) Active Problems Problem Noted Date Diagnosed Date [...] as of this encounter (statuses as of 06/01/2023) Resolved Problems Problem Noted Date Diagnosed Date Resolved Date Chronic kidney disease, stage 3b 03/17/2022 05/21/2023 Overview: Per CKD protocol Type 2 diabetes mellitus wit h stage 3b chronic kidney disease, without long-term current use of insulin 07/26/2021 03/20/2022 Overview: Per CKD protocol documented as of this encounter (statuses as of 06/01/2023) Immunizations Name Administration Dates Next Due COVID-19 [...] Telephone Encounter - Zeinab Bueno, PATRICK - 06/01/2023 10:46 AM EST Patient cancelled her appt for 06/03 I called to reschedule her and left a message for her to call and reschedule [facility] documented in this encounter Plan of Treatment Upcoming Encounters Date Type Department Care Team (Late st Contact Info) Description 06/17/2023 3:30 PM EST Office Visit Cardiology, [facility] [address] [facility] [place] [address] Wiliam Schroeder MD 132 [facility] [place] [address] 09/11/2023 3:30 PM EST Office Visit Pharmacy, [facility] [place] [address] [place] [address] [address] Pharmacist1, [facility] [address] [place] [address] [address] 09/11/2023 4:00 PM EST Office Visit Nephrology, [facility] [address] [place] [address] [address] Cornel Smith MD [address] [place] [address] 10/29/2023 1:30 PM EDT Laboratory Laboratory [facility] [place] [address] [place] [address] [phone] Lisa Lab [facility] [address] [place] [address] 11/03/2023 2:00 PM EDT Office Visit General Internal Medicine [facility] [place] [address] [place] [address] Dalila Bauman MD [address] [place] [address] 11/10/2023 3:00 PM EDT Office Visit Hematology/Oncology [facility] [place] [address] [place] [address] Joshua Nunez MD 200 [facility] [place] [address] Health Maintenance Due Date Last Done Comments [...] D LEVEL ONCE IN A LIFETIME-USE SMARTSET# [id number] Completed 12/19/2022, 03/25/2022, 11/11/2021, Additional history exists GARDASIL-HPV IMMUNIZATION SERIES Aged Out No longer eligible based on patient's age to complete this topic MENINGOCOCCAL (MENACTRA/MENVEO) Aged Out No longer eligible based on patient's age to complete this topic documented as of this encounter Medical Devices Implanted Type Area Ultrasound Spec Device Identifier Shelf Expiration Date Model / Serial / Lot Lens Intraoc 25.0 - [id number] - [id number] Implanted:Qty: 1 on 09/03/2021 by Deon Griffin MD at OR [facility] Left: Eye [employer] 10/02/2025 [id number] / [id number] / [id number] Lens Intraoc 26.0 - [id number] - [id number] Implanted:Qty: 1 on 09/17/2021 by Deon Griffin MD at OR [facility] Right: Eye [employer] 10/03/2025 [id number] / [id number] / [id number] documented as of this encounter Care Teams Lodge Attendant Relationship Specialty Start Date End Date Dalila Bauman MD 200 [place] [address] PCP - General Internal Medicine 01/09/21 documented as of this encounter
--- OUTSIDE RECORDS SUMMARY | 2023-08-13 06:46 | External Medical Summary | Summary of Care ---
Author Name Unknown Organization [facility] Address [address] [place] [address] Phone [phone] Care Team Providers Care Regulatory Auditor Name Role Phone Dalila Bauman MD Primary Care Provider [phone] Reason for Visit * Reason Comments Follow Up 6m Encounter Details Date Type Department Care Team (Late st Contact Info) Description 05/11/2023 2:30 PM EST Office Visit [place]ology/[place] [facility] [address] [facility] [place] [address] Joshua Nunez MD [address] [place] [id number] MGUS (monoclonal gammopathy of unknown significance)* Allergies Active Allergy Reactions Criticality Noted Date Comments Latex 01/09/2021 Penicillins 01/09/2021 Sulfa Antibiotics 01/09/2021 documented as of this encounter (statuses as of 05/11/2023) Medications Medication Sig Dispensed Refills Start Date [...] Active RA Loratadine 10 MG Oral Tablet (Loratadine)Indicat ions:Seasonal allergic rhinitis due to pollen,Mucous retention cyst of maxillary sinus take 1 tablet by mouth at bedtime 90 Tablet 3 05/14/2022 Active Insulin Pen Needle 32G X 6 MMIndications:Type 2 diabetes mellitus with hemoglobin A1c goal of less than 8.0% ([facility]) Use with Lantus once daily 100 Each 3 09/02/2022 Active Prodigy No Coding Blood Gluc In Vitro Strip (Glucose Blood)Indications:T ype 2 diabetes mellitus with hemoglobin A1c goal of less than 8.0% ([facility]) Use to test blood glucose [...] disease, without long-term current use of insulin ([facility]),HTN, goal below 150/90,Bilateral leg edema Take 1 to 2 tablets per week. 45 Tablet 3 09/24/2022 Active Lisinopril 20 MG Oral Tablet (Prinivil)Indicatio ns:Type 2 diabetes mellitus with stage 3b chronic kidney disease, without long-term current use of insulin ([facility]),HTN, goal below 150/90,History of hypertensive [...] hemoglobin A1c goal of less than 8.0% ([facility]) Use to test blood glucose 3 times daily. DX: E11.9 300 Each 3 10/03/2022 Active Vitamin B-12 1000 MCG Oral Tablet (Cyanocobalamin)Ind ications:Type 2 diabetes mellitus with stage 3b chronic kidney disease, without long-term current use of insulin ([facility]) 1 tab on odd days only, start 06/13/2021--dec 3d/wk 10/18/2021 45 Tablet 3 10/13/2022 Active Verapamil HCl ER 180 MG Oral Tablet Extended Release (Isoptin SR)Indications:HTN, goal below 150/90,Type 2 diabetes mellitus with stage 3b chronic kidney disease, without long-term current use of insulin ([facility]) take 1 tablet by mouth every evening 90 Tablet 1 11/24/2022 Active Tradjenta 5 MG Oral Tablet (linaGLIPtin)Indica tions:Type 2 diabetes mellitus with retinopathy of both eyes, without long-term current use of insulin, macular edema presence unspecified, unspecified retinopathy severity ([facility]) take 1 tablet by mouth daily 90 Tablet 1 11/27/2022 Active CoQ10 200 MG Oral Capsule Take by mouth. 0 Active Jardiance 25 MG Oral Tablet (Empagliflozin)Dora cations:Type 2 diabetes mellitus with hemoglobin A1c goal of less than 8.0% ([facility]),Type 2 diabetes mellitus with stage 3b chronic kidney disease, without long-term current use of insulin ([facility]) take 1 tablet by mouth every morning INCREASE BACK 11/14/21 AND STOP METFORMIN 90 Tablet 1 01/22/2023 Active Repaglinide 2 MG Oral Tablet (Prandin)Indication s:Type 2 diabetes mellitus with hemoglobin A1c goal of less than 8.0% ([facility]) take 1 tablet by mouth three times a day BEFORE MEALS Strength: 2 mg 270 Tablet 3 2023 Active Sertraline HCl 50 MG Oral Tablet (Zoloft) TAKE 1/2 A TABLET BY MOUTH EVERY MORNING 45 Tablet 3 03/02/2023 Active Atorvastatin Calcium 80 MG Oral Tablet (Lipitor)Indication s:Renal artery stenosis ([facility]),Carotid stenosis, asymptomatic, right,Dyslipidemia, goal LDL [...] once daily 90 Tablet 3 05/07/2023 Active documented as of this encounter (statuses as of 05/11/2023) Active Problems Problem Noted Date Diagnosed Date MGUS (monoclonal gammopathy of unknown significa nce) [...] as of this encounter (statuses as of 05/11/2023) Resolved Problems Problem Noted Date Diagnosed Date Resolved Date Type 2 diabetes mellitus wit h stage 3b chronic kidney disease, without long-term current use of insulin 07/26/2021 03/20/2022 Overview: Per CKD protocol documented as of this encounter (statuses as of 05/11/2023) Immunizations Name Administration Dates Next Due COVID-19 mRNA, LNP-s, No Pre serve, 2-Dose Series (Moderna) 12/11/2020,11/13/2020 COVID-19, LNP-s, No Preserve , Michel-sucrose, Ages 12+ (Pfizer) 12/18/2021 COVID-19, mRNA, LNP-s, PF, B ooster, 100mcg/0.5mg (Moderna) 07/11/2021 documented as of this encounter Social History Tobacco Use Types Packs/Day Years Used Date Smoking Tobacco: Never Smokeless Tobacco: Never Tobacco Cessation:Counseling Given: Not Answered Alcohol Use Standard Drinks/Week Comments Yes 2 [...] on file documented as of this encounter Last Filed Vital Signs Vital Sign Reading Time Taken Comments Blood Pressure 198/70 05/11/2023 2:34 PM EST Pulse 68 05/11/2023 2:34 PM EST Temperature 36.7 C (98.1 F) 05/11/2023 2:34 PM ES T Respiratory Rate 16 05/11/2023 2:34 PM EST Oxygen Saturation 93% 05/11/2023 2:34 PM EST Inhaled Oxygen Concentration - - Weight 89.5 kg (197 lb 6.4 oz) 05/11/2023 2:34 P M EST Height 162.6 cm (5' 4") 05/11/2023 2:34 PM EST Body Mass Index 33.88 05/11/2023 2:34 PM EST documented in this encounter Progress Notes * Joshua Nunez MD - 05/11/2023 2:50 PM EST Outpatient Consult Note Data Source: Patient, Epic record. Data Source: Patient, Epic record. 05/11/2023 2:50 PM Ramila Urrutia [id number] 88 year old Patient Encounter: HEMATOLOGY/ONCOLOGY [facility] Cancer Diagnosis: Monoclonal IgG kappa gammopathy Current Treatment: Observation Previous Treatment: None Oncologic History : 88-year-old female with past medical history significant for hypertension, CKD, hyperlipidemia, history of COVID-19 infection and chronic diastolic CHF was referred with the above diagnosis. Clinically patient is doing well without any new symptoms of complain. She was last admitted to the hospital on 09/04/2022 with electrolytes abnormality and high blood sugar. Last CBC done on 09/01/2022 which shows WBC count of 7.49, hemoglobin 12.3 and platelet count 273. Creatinine was 1.5 and the rest of the electrolytes were in acceptable range. Urine immunofixation was positive for monoclonal intact immunoglobulins and absent of monoclonal free light chain. Immunoglobulin levels including IgG and IgA were normal and IgM was 19. Serum free light chain kappa level was 23.19 and the lambda was 17.7 with ratio of 1.31. Serum immunofixation was positive for monoclonal IgG kappa gammopathy. She denies any fever, night sweats, headache, dizziness blurred vision, chest pain, palpitation. abdominal pain or distention, bleeding, bruising, nausea, vomiting, fever, night sweats, new bone pain, hematuria, hematochezia. She denies smoking. Drinks about 3 glasses wine per week. Family history significant for 1 brother was diagnosed of squamous cell carcinoma of the throat. Other brother was diagnosed of T-cell lymphoma. Interval History: Clinically she is doing well without any new symptoms complain. Denies any headache, dizziness, blurred vision, chest pain palpitation abdominal pain or distention, bleeding, bruising, fever, night sweats, weight loss. LABS/IMAGING: Results for orders placed or performed in visit on 05/04/23 VITAMIN B12 Result Value Ref Range Vitamin B12 789 232 - 1,245 pg/mL COMPREHENSIVE METABOLIC PANEL Result Value Ref Range BUN 33 (H) 6 - 20 mg/dL Creatinine 1.7 (H) 0.5 - 1.0 mg/dL Estimated Glomerular Filtration Rate 28 (L) >=60 mL/min Sodium 137 135 - 146 mmol/L Potassium 4.0 3.5 - 5.1 mmol/L Chloride 101 98 - 107 mmol/L CO2 22 22 - 32 mmol/L Anion Gap 14 7 - 15 mmol/L Glucose 93 70 - 120 mg/dL Albumin 4.3 3.8 - 5.0 g/dL AST 28 10 - 35 U/L Alkaline Phosphatase 42 35 - 130 U/L Bilirubin, Total 0.3 <=1.2 mg/dL Calcium 9.9 8.4 - 10.2 mg/dL Protein 7.3 6.0 - 8.3 g/dL ALT 30 10 - 35 U/L SERUM PROTEIN ELECTROPHORESIS REFLEX PROFILE Result Value Ref Range Protein 7.3 6.0 - 8.3 g/dL Albumin 3.57 3.30 - 4.40 g/dL Alpha-1 Globulin 0.26 0.10 - 0.30 g/dL Alpha-2 Globulin 1.10 (H) 0.60 - 1.00 g/dL Beta-Globulin 0.86 0.80 - 1.30 g/dL Gamma-Globulin 1.51 0.70 - 1.70 g/dL M Ollie 1.11 g/dL Electrophoresis Interpretation 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 SERUM FREE LIGHT CHAINS Result Value Ref Range [place] Free Light Chains, Serum 29.12 (H) 3.30 - 19.40 mg/L Lambda Free Light Chains, Serum 21.94 5.71 - 26.30 mg/L [place] Lambda Free Light Chains Ratio 1.33 0.26 - 1.65 IMMUNOGLOBULIN QUANTITATIVE Result Value Ref Range IgG 1,527 700 - 1,600 mg/dL IgA 130 70 - 400 mg/dL IgM 25 (L) 40 - 230 mg/dL CBC Result Value Ref Range WBC 6.92 4.00 - 10.80 K/uL RBC 3.74 3.85 - 5.15 M/uL HGB 12.1 12.0 - 15.3 g/dL HCT 38.4 36.0 - 45.2 % MCV 102.7 81.5 - 97.5 fL MCH 32.4 27.0 - 34.0 pg MCHC 31.5 32.0 - 36.0 g/dL RDW 12.5 11.5 - 15.5 % PLT 268 140 - 400 K/uL MPV 9.8 6.6 - 11.1 fL nRBCs 0 <=0 /100 WBCs DIFFERENTIAL, AUTOMATED Result Value Ref Range WBC 6.92 4.00 - 10.80 K/uL Neutrophils % 49.6 40.0 - 75.0 % Lymphocytes % 37.7 18.0 - 42.0 % Monocytes % 11.1 (H) 1.0 - 11.0 % Eosinophils % 0.9 0.0 - 6.0 % Basophils % 0.6 0.0 - 2.0 % Immature Granulocytes % 0.1 0.0 - 2.0 % Absolute Neutrophils 3.43 1.80 - 7.70 K/uL Absolute Lymphocytes 2.61 1.00 - 4.80 K/ul Absolute Monocytes 0.77 0.00 - 1.10 K/uL Absolute Eosinophils 0.06 0.00 - 0.70 K/uL Absolute Basophils 0.04 0.00 - 0.20 K/uL Absolute Immature Granulocytes 0.01 0.00 - 0.20 K/uL All her blood counts are in acceptable range with stable creatinine and normal hemoglobin level. Myeloma panel is stable. REVIEW OF SYSTEMS: General: No Fever, chills, night sweats, or weight loss. HEENT: No change in visual acuity, blurred or double vision. No epistaxis, facial pain, nasal discharge or change in hearing. Denies dysphagia, no muscosal ulceration, or sores noted. Cardiovascular: No chest pain, ESCOBAR, or palpitations Respiratory: No shortness of breath, cough, hemoptysis, or pleuritic chest pain Gastrointestinal: No abdominal pain, nausea, vomiting, diarrhea, rectal pain or bleeding Genitourinary: Denies Hematuria or dysuria Musculoskeletal: Stable joint and back pain Psychiatric: No vegetative signs of depression Endocrine: No symptoms of hypothyroidism or hyperglycemia Hematologic: No bleeding or lymph nodes noted As mentioned above, all of the systems were reviewed in full and are unremarkable. Past Medical History: Diagnosis Date Hypertension Current Outpatient Medications Medication Sig Dispense Refill Aspirin EC 81 MG Oral Tablet Delayed Release Take 1 Tablet by mouth in the morning. 100 Tab 3 Prodigy Voice Blood Glucose w/Device Kit Use to test blood glucose 3 times daily. DX: E11.9. 1 Kit 0 FreeStyle Jimmy 2 Sensor Use as directed every 14 days . Change every 14 weeks 2 Each 11 Acetaminophen 500 MG Oral Tablet (Tylenol) Take by mouth 2 Tablets every 8 hours as needed for Pain, Moderate. STOP ibuprofen 09/13/2021 (Patient taking differently: Take 2 Tablets by mouth in the morning and 2 Tablets before bedtime. STOP ibuprofen 09/13/2021.) 100 Tablet 0 NATURAL SUPPLEMENT Take by mouth 4 Tablets daily . [facility] Plus RA Loratadine 10 MG Oral Tablet (Loratadine) take 1 tablet by mouth at bedtime 90 Tablet 3 Insulin Pen Needle 32G X 6 MM Use with Lantus once daily 100 Each 3 Prodigy No Coding Blood Gluc In Vitro Strip (Glucose Blood) Use to test blood glucose 3 times dailyas directed. 300 Strip 3 Prevagen 10 MG Oral Capsule (Apoaequorin) Take by mouth every evening. hydrALAZINE HCl 100 MG Oral Tablet Take 1 Tablet by mouth in the morning and 1 Tablet at noon and 1Tablet before bedtime. 270 Tablet 3 Furosemide 20 MG Oral Tablet (Lasix) Take 1 to 2 tablets per week. 45 Tablet 3 Lisinopril 20 MG Oral Tablet (Prinivil) Take 1 Tablet by mouth in the morning and 1 Tablet in the evening. 180 Tablet 3 Isosorbide Dinitrate 30 MG Oral Tablet Take 1 Tablet by mouth in the morning and 1 Tablet at noon and 1 Tablet before bedtime. 270 Tablet 3 Prodigy Lancets 28G Use to test blood glucose 3 times daily. DX: E11.9 300 Each 3 Vitamin B-12 1000 MCG Oral Tablet (Cyanocobalamin) 1 tab on odd days only, start 06/13/2021--dec 3d/wk 10/18/2021 45 Tablet 3 Verapamil HCl ER 180 MG Oral Tablet Extended Release (Isoptin SR) take 1 tablet by mouth every evening 90 Tablet 1 Tradjenta 5 MG Oral Tablet (linaGLIPtin) take 1 tablet by mouth daily 90 Tablet 1 CoQ10 200 MG Oral Capsule Take by mouth. Jardiance 25 MG Oral Tablet (Empagliflozin) take 1 tablet by mouth every morning INCREASE BACK 11/14/21 AND STOP METFORMIN 90 Tablet 1 Repaglinide 2 MG Oral Tablet (Prandin) take 1 tablet by mouth three times a day BEFORE MEALS Strength: 2 mg 270 Tablet 3 Sertraline HCl 50 MG Oral Tablet (Zoloft) TAKE 1/2 A TABLET BY MOUTH EVERY MORNING 45 Tablet 3 Atorvastatin Calcium 80 MG Oral Tablet (Lipitor) take 1 tablet by mouth at bedtime INCREASE 11/13/2021 90 Tablet 2 Tresiba FlexTouch 100 UNIT/ML Subcutaneous Solution Pen-injector (Insulin Degludec) Inject 33 Unitsunder the skin in the morning. (Patient not taking: Reported on 05/04/2023) 5 Each 3 Melatonin ER 1 MG Oral Tablet Extended Release daily1 tab at bedtime daily, if not improved may increase upto 5 mg daily 90 Tablet 1 Metoprolol Succinate ER 100 MG Oral Tablet Extended Release 24 Hour (toPROL XL) take 1 tablet by mouth once daily 90 Tablet 3 No current facility-administered medications for this visit. Social History Tobacco Use Smoking status: Never Smokeless tobacco: Never Vaping Use Vaping Use: Never used Substance Use Topics Alcohol use: Yes Alcohol/week: 2.0 standard drinks of alcohol Types: 2 5 oz of wine per week Drug use: Never Review of patient's allergies indicates: Allergen Reactions Latex Penicillins Sulfa Antibiotics PHYSICAL EXAMINATION: General Appearance: Healthy appearing patient in no acute distress BP 198/70 (BP Site: Right Arm, BP Position: Sitting, BP Cuff Size: Large) | Pulse 68 | Temp 36.7 C (98.1 F) (Oral) | Resp 16 | Ht 1.626 m (5' 4") | Wt 89.5 kg (197 lb 6.4 oz) | SpO2 93% | BMI 33.88 kg/m | BSA 2.01 m Vitals reviewed. HEENT: No oral or pharyngeal masses, ulceration or thrush noted, no sinus tenderness. Neck is supple with no thyromegaly or JVD noted. Lymph Nodes: No lymphadenopathy noted in the occipital, pre and post auricular, cervical, supra andinfraclavicular, axillary, epitrochlear, inguinal, and popliteal region. Lungs/Thorax: Clear to auscultation, no accessory muscles of respiration being used. Heart: Regular rate and rhythm, normal S1, S2 Abdomen: Soft, nontender, bowel sounds present, no appreciable hepatosplenomegaly, no palpable masses Extremeties: Good pulses bilaterally, no peripheral edema. Skin: Normal skin tone with no rash, petechiae, ecchymosis noted. Musculoskeletal: No pain on palpation over bony prominence, no edema, no evidence of gout, no jointor bony deformity ASSESSMENT: 88-year-old female with past medical history significant for hypertension, CKD, hyperlipidemia, history of COVID-19 infection and chronic diastolic CHF was referred with the diagnosis of monoclonal IgG kappa gammopathy. Clinically she is doing well in good performance status and physical examination is unremarkable. All her blood counts are stable in acceptable range with stable creatinine and normal electrolytes and calcium. Myeloma panel result is stable. Discussed with the patient about diagnosis reviewed all the available blood test result with her. PLAN: Return to clinic in 6 months with CBC, CMP and myeloma panel. The patient voiced understanding of all of the above. All questions and concerns were addressed in an apparently satisfactory manner. Joshua Nunez MD (This note was completed using the dictation program Fluency Direct. As such, there may be misspellings, word substitutions, or other variations that should not change the essence of the clinical content of this encounter note. If there is need for further clarification, please direct questions to me.) documented in this encounter Nursing Notes * Bernie Sparks LPN - 05/11/2023 3:21 PM EST Patient was contacted for Specialty HTN. Visit date not found (in office), Visit date not found (telemedicine) Care Gap Outreach Action Taken: Did not contact: After chart review outreach not indicated. Bernie Sparks LPN 05/11/2023 * Rosita Carranza CMA - 05/11/2023 2:38 PM EST Patient identifed by name and birthdate Do you have any concerns about pain management for today's visit? No Living Will or Advance Directive for Health Care as noted on the problem list. [facility] is a way you can talk to your provider on line through e-mail. Would you like to sign up? I can activate it for you? NO Filed Vitals: 05/11/23 1434 BP: 198/70 Pulse: 68 Resp: 16 Temp: 36.7 C (98.1 F) TempSrc: Oral SpO2: 93% Weight: 89.5 kg (197 lb 6.4 oz) Height: 1.626 m (5' 4") Patient was instructed to not get up on the exam table/exam chair until directed and assisted by their provider; patient is to remain seated in the chair/ wheelchair/ exam table/ exam chair for fall prevention and safety reasons. Patient is aware to have assistance to step down off exam table/exam chair with personnel. Patient voiced full comprehension of instructions. documented in this encounter Plan of Treatment Upcoming Encounters Date Type Department Care Team (Late st Contact Info) Description 05/25/2023 2:00 PM EST Imaging [facility] [address] [place] [address] 06/03/2023 1:30 PM EST Office Visit Vascular Surgery, [facility] [address] [place] [address] Francesco Cohen MD [address] [place] [address] 06/17/2023 3:30 PM EST Office Visit Cardiology, [facility] [address] [place] [address] Wiliam Schroeder MD [address] [place] [address] 09/11/2023 3:30 PM EST Office Visit Pharmacy, [facility] [address] [facility] [place] [address] Pharmacist1, [facility] [address] [facility] [place] [address] 09/11/2023 4:00 PM EST Office Visit Nephrology, [facility] [address] [facility] [place] [address] Cornel Smith MD [address] [facility] [place] [address] 10/29/2023 1:30 PM EDT Laboratory Laboratory [facility] [address] [facility] [place] [id number] [place], [address] [place] [address] 11/03/2023 2:00 PM EDT Office Visit General Internal Medicine [facility] [address] [facility] [place] [address] Dalila Bauman MD [address] [facility] [place] [address] 11/10/2023 3:00 PM EDT Office Visit Hematology/Oncology [facility] [address] [facility] [place] [address] Joshua Nunez MD [address] [place] [address] Scheduled Orders Name Type Priority Associated Diagnoses Orde r Schedule [id number], SERUM Lab Routine MGUS (monoclonal gammopathy of unknown significance) Expected: 11/09/2023, Expires: 06/10/2024 CBC WITH WBC DIFFERENTIAL Lab Routine MGUS (monoclonal gammopathy of unknown significance) Expected: 11/09/2023, Expires: 06/10/2024 COMPREHENSIVE METABOLIC PANEL Lab Routine MGUS (monoclonal gammopathy of unknown significance) Expected: 11/09/2023, Expires: 06/10/2024 IMMUNOGLOBULIN QUANTITATIVE Lab Routine MGUS (monoclonal gammopathy of unknown significance) Expected: 11/09/2023, Expires: 06/10/2024 SERUM FREE LIGHT CHAINS Lab Routine MGUS (monoclonal gammopathy of unknown significance) Expected: 11/09/2023, Expires: 06/10/2024 SERUM PROTEIN ELECTROPHORESIS REFLEX PROFILE Lab Routine MGUS (monoclonal gammopathy of unknown significance) Expected: 11/09/2023, Expires: 06/10/2024 Health Maintenance Due Date Last Done Comments [...] D LEVEL ONCE IN A LIFETIME-USE SMARTSET# [id number] Completed 12/19/2022, 03/25/2022, 11/11/2021, Additional history exists GARDASIL-HPV IMMUNIZATION SERIES Aged Out No longer eligible based on patient's age to complete this topic MENINGOCOCCAL (MENACTRA/MENVEO) Aged Out No longer eligible based on patient's age to complete this topic documented as of this encounter Medical Devices Implanted Type Area Teacher Advisor Device Identifier Shelf Expiration Date Model / Serial / Lot Lens Intraoc 25.0 - [id number] - [id number] Implanted:Qty: 1 on 09/03/2021 by Deon Griffin MD at [facility] Left: Eye [employer] 10/02/2025 [id number] / [id number] / [id number] Lens Intraoc 26.0 - [id number] - [id number] Implanted:Qty: 1 on 09/17/2021 by Deon Griffin MD at [facility] Right: Eye [employer] 10/03/2025 [id number] / [id number] / [id number] documented as of this encounter Visit Diagnoses Diagnosis 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 [place] [address] PCP - General Internal Medicine 01/09/21 documented as of this encounter
--- OUTSIDE RECORDS SUMMARY | 2023-08-13 06:46 | External Medical Summary | Summary of Care ---
Author Name Unknown Organization [facility] Address [address] [place] [address] Phone [phone] Care Team Providers Care Utility Worker Forge Name Role Phone Dalila Bauman MD Primary Care Provider [phone] Reason for Visit * Reason Onset Date Comments Appointment 05/26/2023 Vascular Study 05/26/2023 Encounter Details Date Type Department Care Team (Late st Contact Info) Description 05/26/2023 Telephone Vascular Surgery, [facility] [address] [place] [address] Phuc Hernandez PA-C [address] [place] [address] Appointment; Vascular Study Allergies Active Allergy Reactions Criticality Noted Date [...] hemoglobin A1c goal of less than 8.0% ([facility]) Use with Lantus once daily 100 Each 3 09/02/2022 Active Prodigy No Coding Blood Gluc In Vitro Strip (Glucose Blood)Indications:T ype 2 diabetes mellitus with hemoglobin A1c goal of less than 8.0% ([facility]) Use to test blood [...] disease, without long-term current use of insulin ([facility]),HTN, goal below 150/90,Bilateral leg edema Take 1 to 2 tablets per week. 45 Tablet 3 09/24/2022 Active Lisinopril 20 MG Oral Tablet (Prinivil)Indicatio ns:Type 2 diabetes mellitus with stage 3b chronic kidney disease, without long-term current use of insulin ([facility]),HTN, goal below 150/90,History of [...] hemoglobin A1c goal of less than 8.0% ([facility]) Use to test blood [...] hemoglobin A1c goal of less than 8.0% ([facility]),Type 2 diabetes mellitus with stage 3b chronic kidney disease, without long-term current use of insulin ([facility]) take 1 tablet by mouth every morning INCREASE BACK 11/14/21 AND STOP METFORMIN 90 Tablet 1 01/22/2023 Active Repaglinide 2 MG Oral Tablet (Prandin)Indication s:Type 2 diabetes mellitus with hemoglobin A1c goal of less than 8.0% ([facility]) take 1 tablet by mouth three times a day BEFORE MEALS Strength: 2 mg 270 Tablet 3 2023 Active Sertraline HCl 50 MG Oral Tablet (Zoloft) TAKE 1/2 A TABLET BY MOUTH EVERY MORNING 45 Tablet 3 03/02/2023 Active Atorvastatin Calcium 80 MG Oral Tablet (Lipitor)Indication s:Renal artery stenosis ([facility]),Carotid stenosis, asymptomatic, right,Dyslipidemia, goal LDL below 70 take 1 tablet by mouth at bedtime INCREASE 11/13/2021 90 Tablet 2 04/13/2023 Active Tresiba FlexTouch 100 UNIT/ML Subcutaneous Solution Pen-injector (Insulin Degludec)Indication s:Type 2 diabetes mellitus with hemoglobin A1c goal of less than 8.0% ([facility]) Inject 33 Units under [...] mouth daily 90 Tablet 1 05/20/2023 Active documented as of this encounter (statuses [...] (Moderna) 12/11/2020,11/13/2020 COVID-19, LNP-s, No Preserve , Mcihel-sucrose, Ages 12+ (Pfizer) 12/18/2021 COVID-19, mRNA, LNP-s, [...] encounter Miscellaneous Notes * Telephone Encounter - Tessy Browning OSA - 05/26/2023 11:23 AM EST I scheduled pt on at 1:00 for study, but no answer at home. (pt didn't cancel, the pod) * Telephone Encounter - Phuc Hernandez PA-C - 05/26/2023 10:22 AM EST MARK- Patient missed her 05/25 carotid duplex in prior to her 06/03 GWs return with Noel Can we get duplex prior or on same day as 06/03 visit, or re-schedule both? Thank you Phuc documented in this encounter Plan of Treatment Upcoming Encounters Date Type Department Care Team (Late st Contact Info) Description 06/03/2023 1:00 PM EST [facility] [address] [facility] [place] [address] 06/03/2023 1:30 PM EST Office Visit Vascular Surgery, [facility] [address] [facility] [place] [address] Francesco Cohen MD [address] [place] [address] 06/17/2023 3:30 PM EST Office Visit Cardiology, [facility] [address] [facility] [place] [address] Wiliam Schroeder MD [address] [facility] [place] [address] 09/11/2023 3:30 PM EST Office Visit Pharmacy, [facility] [address] [facility] [place] [address] Pharmacist1, [facility] [address] [facility] [place] [address] 09/11/2023 4:00 PM EST Office Visit Nephrology, [facility] [address] [facility] [place] [address] Cornel Smith MD [address] [facility] [place] [address] 10/29/2023 1:30 PM EDT Laboratory Laboratory [facility] [address] [facility] [place] [id number] [facility] [address] [place] [address] 11/03/2023 2:00 PM EDT Office Visit General Internal Medicine [facility] [place] [address] [facility] [place] [address] Dalila Bauman MD [address] [facility] [place] [address] 11/10/2023 3:00 PM EDT Office Visit Hematology/Oncology [facility] [place] [address] [facility] [place] [address] Joshua Nunez MD [address] [facility] [place] [address] Health Maintenance Due Date Last Done Comments [...] D LEVEL ONCE IN A LIFETIME-USE SMARTSET# [id number] Completed 12/19/2022, 03/25/2022, 11/11/2021, Additional history exists GARDASIL-HPV IMMUNIZATION SERIES Aged Out No longer eligible based on patient's age to complete this topic MENINGOCOCCAL (MENACTRA/MENVEO) Aged Out No longer eligible based on patient's age to complete this topic documented as of this encounter Medical Devices Implanted Type Area Chief Librarian Circulation Department Device Identifier Shelf Expiration Date Model / Serial / Lot Lens Intraoc 25.0 - [id number] - [id number] Implanted:Qty: 1 on 09/03/2021 by Deon Griffin MD at OR [facility] Left: Eye [employer] 10/02/2025 [id number] / [id number] / [id number] Lens Intraoc 26.0 - [id number] - [id number] Implanted:Qty: 1 on 09/17/2021 by Deon Griffin MD at OR [facility] Right: Eye [employer] 10/03/2025 [id number] / [id number] / [id number] documented as of this encounter Care Teams Utility Worker Forge Relationship Specialty Start Date End Date Dalila Bauman MD [address] [facility] [place] [address] PCP - General Internal Medicine 01/09/21 documented as of this encounter
--- OUTSIDE RECORDS SUMMARY | 2023-08-13 06:46 | External Medical Summary | Summary of Care ---
Author Name Unknown Organization [facility] Address [address] [place] [facility] [place] [address] Phone [phone] Care Team Providers Care Chemical Unit Operator Name Role Phone Dailla Bauman MD Primary Care Provider [phone] Reason for Visit * Reason Comments Follow Up Encounter Details Date Type Department Care Team (Late st Contact Info) Description 04/30/2023 11:00 AM EDT Office Visit Cardiology, [facility] [address] [place] [address] May Gipson PA-C [address] [place] [address] Hypertensive heart disease with chronic diastolic congestive heart failure (HCC)*; Renal artery stenosis (HCC); Dyslipidemia, goal LDL below 70; Carotid stenosis, asymptomatic, right; HTN, goal below 150/90 Allergies Active Allergy Reactions Criticality Noted Date Comments Latex 01/09/2021 Penicillins 01/09/2021 Sulfa Antibiotics 01/09/2021 documented as of this encounter (statuses as of 05/12/2023) Medications Medication Sig Dispensed Refills Start Date End Date Status Aspirin EC 81 MG Oral Tablet Delayed ReleaseIndicatio ns:Type 2 diabetes mellitus with retinopathy of both eyes, without long-term current use of insulin, macular edema presence unspecified, unspecified retinopathy severity ([facility]),Dyslipidem ia, goal LDL below 100 Take 1 Tablet by mouth in the morning. 100 Tab 3 Active Prodigy Voice Blood Glucose w/Device KitIndications:T ype 2 diabetes mellitus with hemoglobin A1c goal of less than 8.0% ([facility]) Use to test blood glucose 3 times daily. DX: E11.9. 1 Kit 0 2 Active FreeStyle Jimmy 2 SensorIndication s:Type 2 diabetes mellitus with hemoglobin A1c goal of less than 8.0% (HCC) Use as directed every 14 days . Change every 14 weeks 2 Each 2 Active Acetaminophen 500 MG Oral Tablet (Tylenol) Take by mouth 2 Tablets every 8 hours as needed for Pain, Moderate. STOP ibuprofen 09/13/2021 100 Tablet 0 2 Active Additional Information Patient taking differently:1,000 mg OralBID (.AM/PM), STOP ibuprofen 09/13/2021, Reported on 08/28/2022 NATURAL SUPPLEMENT Take by mouth 4 Tablets daily . Macuhealth Plus 0 Active RA Loratadine 10 MG Oral Tablet (Loratadine)Dora cations:Seasonal allergic rhinitis due to pollen,Mucous retention cyst of maxillary sinus take 1 tablet by mouth at bedtime 90 Tablet 3 2 Active Insulin Pen Needle 32G X 6 MMIndications:Ty pe 2 diabetes mellitus with hemoglobin A1c goal of less than 8.0% (HCC) Use with Lantus once daily 100 Each 3 3 Active Prodigy No Coding Blood Gluc In Vitro Strip (Glucose Blood)Indication s:Type 2 diabetes mellitus with hemoglobin A1c goal of less than 8.0% (HCC) Use to test blood glucose 3 times daily as directed. 300 Strip 3 3 Active Prevagen 10 MG Oral Capsule (Apoaequorin) Take by mouth every evening. 0 Active hydrALAZINE HCl 100 MG Oral Tablet Take 1 Tablet by mouth in the morning and 1 Tablet at noon and 1 Tablet before bedtime. 270 Tablet 3 3 Active Furosemide 20 MG Oral Tablet (Lasix)Indicatio ns:Type 2 diabetes mellitus with stage 3b chronic kidney disease, without long-term current use of insulin (HCC),HTN, goal below 150/90,Bilateral leg edema Take 1 to 2 tablets per week. 45 Tablet 3 3 Active Lisinopril 20 MG Oral Tablet (Prinivil)Indica tions:Type 2 diabetes mellitus with stage 3b chronic kidney disease, without long-term current use of insulin (HCC),HTN, goal below 150/90,History of hypertensive crisis Take 1 Tablet by mouth in the morning and 1 Tablet in the evening. 180 Tablet 3 3 Active Isosorbide Dinitrate 30 MG Oral Tablet Take 1 Tablet by mouth in the morning and 1 Tablet at noon and 1 Tablet before bedtime. 270 Tablet 3 3 Active Prodigy Lancets 28GIndications:T ype 2 diabetes mellitus with hemoglobin A1c goal of less than 8.0% ([facility]) Use to test blood glucose 3 times daily. DX: E11.9 300 Each 3 3 Active Vitamin B-12 1000 MCG Oral Tablet (Cyanocobalamin) Indications:Type 2 diabetes mellitus with stage 3b chronic kidney disease, without long-term current use of insulin ([facility]) 1 tab on odd days only, start 06/13/2021--dec 3d/wk 10/18/2021 45 Tablet 3 3 Active Verapamil HCl ER 180 MG Oral Tablet Extended Release (Isoptin SR)Indications:H TN, goal below 150/90,Type 2 diabetes mellitus with stage 3b chronic kidney disease, without long-term current use of insulin ([facility]) take 1 tablet by mouth every evening 90 Tablet 1 3 Active Tradjenta 5 MG Oral Tablet (linaGLIPtin)Ind ications:Type 2 diabetes mellitus with retinopathy of both eyes, without long-term current use of insulin, macular edema presence unspecified, unspecified retinopathy severity ([facility]) take 1 tablet by mouth daily 90 Tablet 1 3 Active CoQ10 200 MG Oral Capsule Take by mouth. 0 Active Jardiance 25 MG Oral Tablet (Empagliflozin)I ndications:Type 2 diabetes mellitus with hemoglobin A1c goal of less than 8.0% ([facility]),Type 2 diabetes mellitus with stage 3b chronic kidney disease, without long-term current use of insulin ([facility]) take 1 tablet by mouth every morning INCREASE BACK 11/14/21 AND STOP METFORMIN 90 Tablet 1 3 Active Repaglinide 2 MG Oral Tablet (Prandin)Indicat ions:Type 2 diabetes mellitus with hemoglobin A1c goal of less than 8.0% ([facility]) take 1 tablet by mouth three times a day BEFORE MEALS Strength: 2 mg 270 Tablet 3 3 Active Sertraline HCl 50 MG Oral Tablet (Zoloft) TAKE 1/2 A TABLET BY MOUTH EVERY MORNING 45 Tablet 3 3 Active Atorvastatin Calcium 80 MG Oral Tablet (Lipitor)Indicat ions:Renal artery stenosis (HCC),Carotid stenosis, asymptomatic, right,Dyslipidem ia, goal LDL below 70 take 1 tablet by mouth at bedtime INCREASE 11/13/2021 90 Tablet 2 3 Active Metoprolol Succinate ER 100 MG Oral Tablet Extended Release 24 Hour (toPROL XL)Indications:H TN, goal below 150/90 take 1 tablet by mouth once daily 90 Tablet 3 2 05/07/20 23 Discontinued Insulin Glargine Solostar 100 UNIT/ML Subcutaneous Solution Pen-injector Inject 36 Units under the skin daily. (increase by 3 units every 3 days until AM BG <180) 30 mL 3 3 05/04/20 23 Discontinued(For mulary/Cost) Diclofenac Sodium 1 % External Gel (Voltaren) Apply topically to affected area 3 times a day as needed for Pain, Mild or Pain, Moderate. 0 3 04/30/20 23 Discontinued(Med ication List Clean Up) Diclofenac Sodium 1 % External Gel (Voltaren) Apply topically to affected area 3 times a day. Apply 2-4 gm to affected areas for pain 50 g 3 3 04/30/20 23 Discontinued(Med ication List Clean Up) COVID-19 At Home Antigen Test In Vitro KitIndications:E ncounter for screening laboratory testing for COVID-19 virus Use as directed 3 Each 1 3 05/04/20 23 Discontinued documented as of this encounter (statuses as of 05/12/2023) Active Problems Problem Noted Date Diagnosed Date [...] as of this encounter (statuses as of 05/12/2023) Resolved Problems Problem Noted Date Diagnosed Date Resolved Date Type 2 diabetes mellitus wit h stage 3b chronic kidney disease, without long-term current use of insulin 07/26/2021 03/20/2022 Overview: Per CKD protocol documented as of this encounter (statuses as of 05/12/2023) Immunizations Name Administration Dates Next Due COVID-19 mRNA, LNP-s, No Pre serve, 2-Dose Series (Moderna) 12/11/2020,11/13/2020 COVID-19, LNP-s, No Preserve , Michel-sucrose, Ages 12+ ([facility]) 12/18/2021 COVID-19, mRNA, LNP-s, PF, B ooster, 100mcg/0.5mg (Moderna) 07/11/2021 documented as of this encounter Social History Tobacco Use Types Packs/Day Years Used Date Smoking Tobacco: Never Smokeless Tobacco: Never Tobacco Cessation:Counseling Given: No Alcohol Use Standard Drinks/Week Comments Yes 2 [...] Sign Reading Time Taken Comments Blood Pressure 192/70 04/30/2023 11:01 AM EDT Pulse 64 04/30/2023 11:01 AM EDT Temperature - - Respiratory Rate 16 04/30/2023 11:0 1 AM EDT Oxygen Saturation - - Inhaled Oxygen Concentration - - Weight 89.7 kg (197 lb 12.8 oz) 023 11:01 AM EDT Height - - Body Mass Index 33.95 11/04/2022 2:24 PM EDT documented in this encounter Progress Notes * May Gipson PA-C - 04/30/2023 11:16 AM EDT 05/12/2023 Cardiology F/U: HPI: Patient is an 88 -year-old female here today for routine cardiology hospital follow-up. Last clinic evaluation approximately 6 months ago with the undersigned. Primary delivery agent is Dr. Schroeder. History includes: Longstanding history of hypertension with past hypertensive urgency Diastolic heart failure CKD stage 3 Type 2 diabetes Atherosclerotic carotid disease and renal artery stenosis - follows with vascular Chronic vertigo Patient presents today feeling well. As her normal, BP is significantly elevated in clinic. Trending down on my repeat, but remains elevated. She is asymptomatic. Denies headache, vision changes, CP. BP at home ranging 130-140/70's. She reports compliance with medications. No chest pain, shortness of breath, palpitations, dizziness, syncope or near syncope. No orthopnea,PND, or increased lower extremity edema. No fever, chills, cough, hematochezia, melena, or hemoptysis. Review of Systems: See HPI for pertinent positives. All others negative, other than those noted in HPI. 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 Review of patient's allergies indicates: Allergen Reactions Latex Penicillins Sulfa Antibiotics Current Outpatient Medications Medication Sig Dispense Refill Aspirin EC 81 MG Oral Tablet Delayed Release Take 1 Tablet by mouth in the morning. 100 Tab 3 BiancaMed Blood Glucose w/Device Kit Use to test [...] by mouth at bedtime 90 Tablet 3 Metoprolol Succinate ER 100 MG Oral Tablet Extended Release 24 Hour (toPROL XL) take 1 tablet by mouth once daily 90 Tablet 3 Insulin Pen Needle 32G X 6 MM Use with Lantus once daily 100 Each 3 Prodigy No Coding Blood Gluc In Vitro Strip (Glucose Blood) Use to test blood glucose 3 times dailyas directed. 300 Strip 3 Prevagen 10 MG Oral Capsule (Apoaequorin) Take by mouth every evening. Insulin Glargine Solostar 100 UNIT/ML Subcutaneous Solution Pen-injector Inject 36 Units under the skin daily. (increase by 3 units every 3 days until AM BG <180) 30 mL 3 hydrALAZINE HCl 100 MG Oral Tablet Take [...] BY MOUTH EVERY MORNING 45 Tablet 3 COVID-19 At Home Antigen Test In Vitro Kit Use as directed 3 Each 1 Atorvastatin Calcium 80 MG Oral Tablet (Lipitor) take 1 tablet by mouth at bedtime INCREASE 11/13/2021 90 Tablet 2 No current facility-administered medications for this visit. Physical Exam BP 192/70 (BP Site: Left Arm, BP Position: Sitting, BP Cuff Size: Large) | Pulse 64 | Resp 16 | Wt 89.7 kg (197 lb 12.8 oz) | BMI 33.95 kg/m | BSA 2.01 m On my repeat 180/80 BP Readings from Last 4 Encounters: 04/30/23 192/70 02/19/23 201/82 12/30/22 162/64 11/04/22 166/72 General: No acute distress. A+Ox3. HEENT: Normocephalic. Atraumatic. Conjunctiva and sclera clear. NECK: No carotid bruits. No JVD. Carotid upstrokes are brisk. Heart: RRR. S1 and S2 noted without murmur, rubs, gallops. PMI non displaced. Lungs: Clear to auscultation. No wheezes, rhonchi, rales. Abdomen: Normal bowel sounds. Soft. Nontender. No masses or organomegaly. No abdominal bruits. Extremities: No edema. No clubbing or cyanosis. Pulses: radial=2/4, posterior tibial=2/4, dorsalis pedis = 2/4. NEURO: No focal deficits. PSYCH: Normal. Lab data/imaging study review: EKG reviewed from Aug 2022: Normal sinus rhythm Nonspecific ST and T wave abnormality Abnormal ECG When compared with ECG of 10-JUN-2021 12:30, No significant change was found Echo at [facility] 10/2021 LVEF >70% No WMA Grade I diastolic dysfunction Mild concentric LVH No valvular pathology Latest Reference Range & Units 05/04/23 16:24 Sodium 135 - 146 mmol/L 137 Potassium 3.5 - 5.1 mmol/L 4.0 Chloride 98 - 107 mmol/L 101 CO2 22 - 32 mmol/L 22 BUN 6 - 20 mg/dL 33 (H) Creatinine 0.5 - 1.0 mg/dL 1.7 (H) Estimated Glomerular Filtration Rate >=60 mL/min 28 (L) Anion Gap 7 - 15 mmol/L 14 Glucose 70 - 120 mg/dL 93 Calcium 8.4 - 10.2 mg/dL 9.9 (H): Data is abnormally high (L): Data is abnormally low Latest Reference Range & Units 12/19/22 13:45 04/30/23 11:43 Triglycerides <=174 mg/dL 77 Cholesterol <200 mg/dL 127 Non-HDL Cholesterol <=159 mg/dL 66 HDL Cholesterol >49 mg/dL 61 LDL Cholesterol <=129 mg/dL 51 LDL Cholesterol (Direct Measure) <=129 mg/dL 63 Impression: 88 year old female 1. Hypertensive heart disease with chronic diastolic congestive heart failure (HCC) 2. HTN, goal below 150/90 3. Labile hypertension 4. Renal artery stenosis; carotid stenosis - follows with vascular 5. CKD with history of hyperkalemia 6. Dyslipidemia PLAN: Patient with long history of xtdjresjk-ah-fupalkc hypertension. Unfortunately blood pressure remains elevated today. BP is typically well controlled at home, per patient. Options discussed. Patient does not wish to make med changes at this time. She feels BP elevation is situational. She will continue to monitor BP at home and report uncontrolled readings. Low sodium diet encouraged. Lipids controlled. Continue statin and ASA I spent a total of 30 minutes on the date of service in preparation, delivery, and documentation ofthe care provided to Ramila Urrutia excluding any time spent in the performance of separately billedservices. The patient agrees to the above plan and will call with additional questions or concerns. ER with all emergencies advised. Check-out note: Keep f/u as scheduled with Dr. Alexandre Gipson PA-C Department of Cardiology This chart was completed in part utilizing [employer] Speech Voice Recognition Software. Grammatical errors, random word insertions, prounoun errors, and incomplete sentences are an occasional consequence of this system due to software limitations, ambient noise, and hardware issues. Any formal questions or concerns about the content, text, or information contained within the body of this dictation should be directly addressed to the provider for clarification. documented in this encounter Nursing Notes * Erin Mercado RN - 04/30/2023 11:04 AM EDT Examination Room: 6 Name: Ramila Urrutia Date of : (1935). Reason for Visit: Follow up Interim Hospitalization(s): No Problems/Concerns: States feeling well, overall. Ongoing generalized fatigue, unchanged. Chest Pain/SOB: Denies [facility] Discussed: Not applicable [facility] is a way you can talk to your provider online through e-mail. Would you like to sign up? I can activate it for you? DECLINES Patient was instructed to not get up on the exam table until directed and assisted by their provider; patient is to remain seated in the chair/ wheelchair/ exam table for fall prevention and safety reasons. Patient is aware to have assistance to step down off exam table with personnel. Patient voiced full comprehension of instructions. documented in this encounter Plan of Treatment Upcoming Encounters Date Type Department Care Team (Late st Contact Info) Description 05/25/2023 2:00 PM EST [facility] [address] [place] [address] 06/03/2023 1:30 PM EST Office Visit Vascular Surgery, [facility] [address] [place] [address] Francesco Cohen MD [address] [place] [address] 06/17/2023 3:30 PM EST Office Visit Cardiology, [facility] [address] [place] [address] Wiliam Schroeder MD [address] [place] [address] 09/11/2023 3:30 PM EST Office Visit Pharmacy, [facility] [address] [place] [address] [address] Pharmacist1, [facility] [address] [facility] [place] [address] 09/11/2023 4:00 PM EST Office Visit Nephrology, [facility] [address] [place] [address] [address] Cornel Smith MD [address] [place] [address] [place] [address] 10/29/2023 1:30 PM EDT Laboratory Laboratory [facility] [place] [address] [place], [place] [id number] Myrna Gonzalez [facility] [address] [facility] [address] [place], [place] [address] 11/03/2023 2:00 PM EDT Office Visit General Internal Medicine [facility] [place] [address] [facility] [place] [address] Dalila Bauman MD [address] [facility] [address] [place], [place] [address] 11/10/2023 3:00 PM EDT Office Visit Hematology/Oncology [facility] [place] [address] [facility] [address] [place], [place] [address] Joshua Nunez MD [address] [facility] [place], [place] [address] Health Maintenance Due Date Last Done Comments [...] D LEVEL ONCE IN A LIFETIME-USE SMARTSET# [id number] Completed 12/19/2022, 03/25/2022, 11/11/2021, Additional history exists GARDASIL-HPV IMMUNIZATION SERIES Aged Out No longer eligible based on patient's age to complete this topic MENINGOCOCCAL (MENACTRA/MENVEO) Aged Out No longer eligible based on patient's age to complete this topic documented as of this encounter Medical Devices Implanted Type Area Perianesthesia Nurse Device Identifier Shelf Expiration Date Model / Serial / Lot Lens Intraoc 25.0 - [id number] - [id number] Implanted:Qty: 1 on 09/03/2021 by Deon Griffin MD at OR [facility] Left: Eye [employer] 10/02/2025 [id number] / [id number] / [id number] Lens Intraoc 26.0 - [id number] - [id number] Implanted:Qty: 1 on 09/17/2021 by Deon Griffin MD at OR [facility] Right: Eye [employer] LOMB 10/03/2025 [id number] / [id number] / [id number] documented as of this encounter Visit Diagnoses Diagnosis Hypertensive heart disease with chronic diastolic congestive heart failure (HCC)- Primary Renal artery stenosis (HCC) Atherosclerosis of renal artery Dyslipidemia, goal LDL below 70 Other and unspecified hyperlipidemia Carotid stenosis, asymptomatic, right HTN, goal below 150/90 documented in this encounter Care Teams Chemical Unit Operator Relationship Specialty Start Date End Date Dalila Bauman MD [address] [facility] [place] [address] PCP - General Internal Medicine 01/09/21 documented as of this encounter"
--- OUTSIDE RECORDS SUMMARY | 2023-08-13 06:46 | External Medical Summary | Summary of Care ---
Author Name Unknown Organization [facility] Address [address] [place] [address] Phone [phone] Care Team Providers Care Literary Agent Name Role Phone Dalila Bauman MD Primary Care Provider [phone] Reason for Visit * Reason Onset Date Comments Appointment 05/26/2023 Vascular Study 05/26/2023 Encounter Details Date Type Department Care Team (Late st Contact Info) Description 05/26/2023 Telephone Vascular Surgery, [facility] [address] [place] [address] Phuc Hernandez PA-C [address] [place] [address] Appointment; Vascular Study Allergies Active [...] less than 8.0% ([facility]),Type 2 diabetes mellitus with stage 3b chronic kidney disease, without long-term current use of insulin ([facility]) take 1 [...] Oral Tablet (Lipitor)Indication s:Renal artery stenosis ([facility]),Carotid stenosis, asymptomatic, right,Dyslipidemia, goal [...] encounter Miscellaneous Notes * Telephone Encounter - Doll, Phuc Matthew, PA-C - 05/26/2023 10:22 AM EST MARK- Patient missed her 05/25 carotid duplex in prior to her 06/03 GWs return with Noel Can we get duplex prior or on same day as 06/03 visit, or re-schedule both? Thank you Phuc documented in this encounter Plan of Treatment Upcoming Encounters Date Type Department Care Team (Late st Contact Info) Description 06/03/2023 1:30 PM EST Office Visit Vascular Surgery, [facility] [address] [facility] [place] [address] Francesco Cohen MD [address] [place] [address] 06/17/2023 3:30 PM EST Office Visit Cardiology, [facility] [address] [facility] [place] [address] Wiliam Schroeder MD [address] [facility] [place] [address] 09/11/2023 3:30 PM EST Office Visit Pharmacy, [facility] [address] [place] [address] Pharmacist1, [facility] [address] [place] [address] 09/11/2023 4:00 PM EST Office Visit Nephrology, [facility] [address] [place] [address] Cornel Smith MD [address] [place] [address] 10/29/2023 1:30 PM EDT Laboratory Laboratory [facility] [address] [place] [phone] [facility] [address] [place] [address] 11/03/2023 2:00 PM EDT Office Visit General Internal Medicine [facility] [address] [facility] [place], [place] [address] Dalila Bauman MD [address] [facility] [place], [place] [address] 11/10/2023 3:00 PM EDT Office Visit Hematology/Oncology [facility] [address] [facility] [place] [address] Joshua Nunez MD [address] [facility] [place], [place] [address] Health Maintenance Due Date Last Done Comments [...] D LEVEL ONCE IN A LIFETIME-USE SMARTSET# [id number] Completed 12/19/2022, 03/25/2022, 11/11/2021, Additional history exists GARDASIL-HPV IMMUNIZATION SERIES Aged Out No longer eligible based on patient's age to complete this topic MENINGOCOCCAL (MENACTRA/MENVEO) Aged Out No longer eligible based on patient's age to complete this topic documented as of this encounter Medical Devices Implanted Type Area Tar Kettle Runner Device Identifier Shelf Expiration Date Model / Serial / Lot Lens Intraoc 25.0 - [id number] - [id number] Implanted:Qty: 1 on 09/03/2021 by Deon Griffin MD at OR [facility] Left: Eye [employer]OM[employer] 10/02/2025 [id number] / [id number] / [id number] Lens Intraoc 26.0 - [id number] - [id number] Implanted:Qty: 1 on 09/17/2021 by Deon Griffin MD at OR [facility] Right: Eye [employer]OM[employer] 10/03/2025 [id number] / [id number] / [id number] documented as of this encounter Care Teams Literary Agent Relationship Specialty Start Date End Date Dalila Bauman MD [address] [facility] [place] [address] PCP - General Internal Medicine 01/09/21 documented as of this encounter
--- OUTSIDE RECORDS SUMMARY | 2023-08-13 06:46 | External Medical Summary | Summary of Care ---
Author Name Unknown Organization [facility] Address [address] [place] [address] Phone [phone] Care Team Providers Care Route Sales Person Name Role Phone Dalila Bauman MD Primary Care Provider [phone] Reason for Visit * Reason Onset Date Comments Appointment 06/01/2023 recall Encounter Details Date Type Department Care Team (Late st Contact Info) Description 06/01/2023 Telephone Vascular Surg [facility] [address], [place] [id number] Francesco Cohen MD [address] [place] [address] Appointment (recall) Allergies Active Allergy Reactions Criticality Noted Date Comments Latex 01/09/2021 Penicillins 01/09/2021 Sulfa Antibiotics 01/09/2021 documented as of this encounter (statuses as of 06/03/2023) Medications Medication Sig Dispensed Refills Start Date [...] goal of less than 8.0% ([facility]) Use with Lantus once daily 100 Each 3 09/02/2022 Active Prodigy No Coding Blood Gluc In Vitro Strip (Glucose Blood)Indications:T ype 2 diabetes mellitus with hemoglobin A1c goal of less than 8.0% ([facility]) Use to test blood glucose 3 [...] long-term current use of insulin ([facility]),HTN, goal below 150/90,Bilateral leg edema Take 1 to 2 tablets per week. 45 Tablet 3 09/24/2022 Active Lisinopril 20 MG Oral Tablet (Prinivil)Indicatio ns:Type 2 diabetes mellitus with stage 3b chronic kidney disease, without long-term current use of insulin ([facility]),HTN, goal below 150/90,History of hypertensive crisis [...] goal of less than 8.0% ([facility]) Use to test blood glucose 3 [...] goal of less than 8.0% ([facility]),Type 2 diabetes mellitus with stage 3b chronic kidney disease, without long-term current use of insulin ([facility]) take 1 tablet by mouth every morning INCREASE BACK 11/14/21 AND STOP METFORMIN 90 Tablet 1 01/22/2023 Active Repaglinide 2 MG Oral Tablet (Prandin)Indication s:Type 2 diabetes mellitus with hemoglobin A1c goal of less than 8.0% ([facility]) take 1 tablet by mouth three times a day BEFORE MEALS Strength: 2 mg 270 Tablet 3 2023 Active Sertraline HCl 50 MG Oral Tablet (Zoloft) TAKE 1/2 A TABLET BY MOUTH EVERY MORNING 45 Tablet 3 03/02/2023 Active Atorvastatin Calcium 80 MG Oral Tablet (Lipitor)Indication s:Renal artery stenosis ([facility]),Carotid stenosis, asymptomatic, right,Dyslipidemia, goal LDL below 70 take 1 tablet by mouth at bedtime INCREASE 11/13/2021 90 Tablet 2 04/13/2023 Active Tresiba FlexTouch 100 UNIT/ML Subcutaneous Solution Pen-injector (Insulin Degludec)Indication s:Type 2 diabetes mellitus with hemoglobin A1c goal of less than 8.0% ([facility]) Inject 33 Units under the skin [...] as of this encounter (statuses as of 06/03/2023) Active Problems Problem Noted Date Diagnosed Date [...] as of this encounter (statuses as of 06/03/2023) Resolved Problems Problem Noted Date Diagnosed Date Resolved Date Chronic kidney disease, stage 3b 03/17/2022 05/21/2023 Overview: Per CKD protocol Type 2 diabetes mellitus wit h stage 3b chronic kidney disease, without long-term current use of insulin 07/26/2021 03/20/2022 Overview: Per CKD protocol documented as of this encounter (statuses as of 06/03/2023) Immunizations Name Administration Dates Next Due COVID-19 [...] Telephone Encounter - Zeinab Bueno, PATRICK - 06/03/2023 11:18 AM EST Called patient x2 to reschedule her for her cancelled appt Left message * Telephone Encounter - Zeinab Bueno OSA - 06/01/2023 10:46 AM EST Patient cancelled her appt for 06/03 I called to reschedule her and left a message for her to call and reschedule [facility] documented in this encounter Plan of Treatment Upcoming Encounters Date Type Department Care Team (Late st Contact Info) Description 06/17/2023 3:30 PM EST Office Visit Cardiology, [facility] [address] [facility] [place] [address] Wiliam Schroeder MD [address] [place] [address] 09/11/2023 3:30 PM EST Office Visit Pharmacy, [facility] [place] [address] [place] [address] Pharmacist1, [facility] [address] [facility] [place] [address] 09/11/2023 4:00 PM EST Office Visit Nephrology, [facility] [place] [address] [place] [address] Cornel Smith MD [address] [place] [address] 10/29/2023 1:30 PM EDT Laboratory Laboratory [facility] [place] [address] [place] [address] [address] [id number] Lisa Lab [facility] [address] [facility] [place] [address] 11/03/2023 2:00 PM EDT Office Visit [facility] [address] [place] [address] Dalila Bauman MD [address] [facility] [place] [address] 11/10/2023 3:00 PM EDT Office Visit Hematology/Oncology [facility] [address] [facility] [place] [address] Joshua Nunez MD [address] [place] [address] Health Maintenance Due Date Last Done Comments [...] D LEVEL ONCE IN A LIFETIME-USE SMARTSET# [id number] Completed 12/19/2022, 03/25/2022, 11/11/2021, Additional history exists GARDASIL-HPV IMMUNIZATION SERIES Aged Out No longer eligible based on patient's age to complete this topic MENINGOCOCCAL (MENACTRA/MENVEO) Aged Out No longer eligible based on patient's age to complete this topic documented as of this encounter Medical Devices Implanted Type Area Electrical Assembly Supervisor Device Identifier Shelf Expiration Date Model / Serial / Lot Lens Intraoc 25.0 - [id number] - [id number] Implanted:Qty: 1 on 09/03/2021 by Deon Griffin MD at OR [facility] Left: Eye [employer] 10/02/2025 [id number] / [id number] / [id number] Lens Intraoc 26.0 - [id number] - [id number] Implanted:Qty: 1 on 09/17/2021 by Deon Griffin MD at OR [facility] Right: Eye [employer]OM[employer] 10/03/2025 [id number] / [id number] / [id number] documented as of this encounter Care Teams Route Sales Person Relationship Specialty Start Date End Date Dalila Bauman MD [address] [place] [address] PCP - General Internal Medicine 01/09/21 documented as of this encounter
--- OUTSIDE RECORDS SUMMARY | 2023-08-13 06:46 | External Medical Summary | Summary of Care ---
Author Name Unknown Organization [facility] Address [address] [place] [address] Phone [phone] Care Team Providers Care Cokeman Name Role Phone Dalila Bauman MD Primary Care Provider [phone] Reason for Visit * Reason Comments Follow Up 6m Encounter Details Date Type Department Care Team (Late st Contact Info) Description 05/11/2023 2:30 PM EST Office [facility] [place] [address] [facility] [place] [address] Joshua Nunez MD [address] [place] [address] MGUS (monoclonal gammopathy of unknown significance)* Allergies [...] goal of less than 8.0% ([facility]) Use with Lantus once daily 100 Each 3 09/02/2022 Active Prodigy No Coding Blood Gluc In Vitro Strip (Glucose Blood)Indications:T ype 2 diabetes mellitus with hemoglobin A1c goal of less than 8.0% ([facility]) Use to test blood glucose 3 [...] long-term current use of insulin ([facility]),HTN, goal below 150/90,Bilateral leg edema Take 1 to 2 tablets per week. 45 Tablet 3 09/24/2022 Active Lisinopril 20 MG Oral Tablet (Prinivil)Indicatio ns:Type 2 diabetes mellitus with stage 3b chronic kidney disease, without long-term current use of insulin ([facility]),HTN, goal below 150/90,History of hypertensive crisis [...] goal of less than 8.0% ([facility]) Use to test blood glucose 3 times daily. DX: E11.9 300 Each 3 10/03/2022 Active Vitamin B-12 1000 MCG Oral Tablet (Cyanocobalamin)Ind ications:Type 2 diabetes mellitus with stage 3b chronic kidney disease, without long-term current use of insulin ([facility]) 1 tab on odd days only, start 06/13/2021--dec 3d/wk 10/18/2021 45 Tablet 3 10/13/2022 Active Verapamil HCl ER 180 MG Oral Tablet Extended Release (Isoptin SR)Indications:HTN, goal below 150/90,Type 2 diabetes mellitus with stage 3b chronic kidney disease, without long-term current use of insulin ([facility]) take 1 tablet by mouth every evening 90 Tablet 1 11/24/2022 Active Tradjenta 5 MG Oral Tablet (linaGLIPtin)Indica tions:Type 2 diabetes mellitus with retinopathy of both eyes, without long-term current use of insulin, macular edema presence unspecified, unspecified retinopathy severity ([facility]) take 1 tablet by mouth daily 90 Tablet 1 11/27/2022 Active CoQ10 200 MG Oral Capsule Take by mouth. 0 Active Jardiance 25 MG Oral Tablet (Empagliflozin)Dora cations:Type 2 diabetes mellitus with hemoglobin A1c goal of less than 8.0% ([facility]),Type 2 diabetes mellitus with stage 3b chronic kidney disease, without long-term current use of insulin ([facility]) take 1 tablet by mouth every morning INCREASE BACK 11/14/21 AND STOP METFORMIN 90 Tablet 1 01/22/2023 Active Repaglinide 2 MG Oral Tablet (Prandin)Indication s:Type 2 diabetes mellitus with hemoglobin A1c goal of less than 8.0% ([facility]) take 1 tablet by mouth three times a day BEFORE MEALS Strength: 2 mg 270 Tablet 3 2023 Active Sertraline HCl 50 MG Oral Tablet (Zoloft) TAKE 1/2 A TABLET BY MOUTH EVERY MORNING 45 Tablet 3 03/02/2023 Active Atorvastatin Calcium 80 MG Oral Tablet (Lipitor)Indication s:Renal artery stenosis ([facility]),Carotid stenosis, asymptomatic, right,Dyslipidemia, goal LDL below 70 [...] Epic record. 05/11/2023 2:50 PM Ramila Urrutia [id number] 88 year old Patient Encounter: HEMATOLOGY[facility]COL[facility]Y [facility] Cancer Diagnosis: Monoclonal IgG kappa gammopathy [...] FREE LIGHT CHAINS Result Value Ref Range [place] Free Light Chains, Serum 29.12 (H) 3.30 - 19.40 mg/L Lambda Free Light Chains, Serum 21.94 5.71 - 26.30 mg/L [place] Lambda Free Light Chains Ratio 1.33 0.26 [...] documented in this encounter Nursing Notes * Rosita Carranza CMA - 05/11/2023 2:38 [...] 05/25/2023 2:00 PM EST Imaging Vascular Lab, [facility] 2nd [facility] [address] [place] [address] 06/03/2023 1:30 PM EST Office Visit Vascular Surgery, [facility] [address] [place] [address] Francesco Cohen MD [address] [place] [address] 06/17/2023 3:30 PM EST Office Visit Cardiology, [facility] [address] [place] [address] Wiliam Schroeder MD 132 [place] [address] 09/11/2023 3:30 PM EST Office Visit Pharmacy, [facility] [address] [facility] [place] [address] Pharmacist1, [facility] [address] [place] [facility] [place] [address] 09/11/2023 4:00 PM EST Office Visit Nephrology, [facility] [address] [facility] [place] [address] Cornel Smith MD [address] [place] [address] 10/29/2023 1:30 PM EDT Laboratory Laboratory [facility] [address] [place] [address] [place], Lab [facility] [address] [place] [address] 11/03/2023 2:00 PM EDT Office Visit General Internal Medicine [facility] [address] [facility] [place] [address] Dalila Bauman MD [address] [place] [address] 11/10/2023 3:00 PM EDT Office Visit Hematology/Oncology [facility] [address] [facility] [place], [place] [address] Joshua Nunez MD 200 [facility] [place] [address] Scheduled Orders Name Type Priority Associated Diagnoses Orde r Schedule [id number], SERUM Lab Routine MGUS (monoclonal gammopathy of [...] D LEVEL ONCE IN A LIFETIME-USE SMARTSET# [id number] Completed 12/19/2022, 03/25/2022, 11/11/2021, Additional history exists GARDASIL-HPV IMMUNIZATION SERIES Aged Out No longer eligible based on patient's age to complete this topic MENINGOCOCCAL (MENACTRA/MENVEO) Aged Out No longer eligible based on patient's age to complete this topic documented as of this encounter Medical Devices Implanted Type Area Gis Database Administrator Device Identifier Shelf Expiration Date Model / Serial / Lot Lens Intraoc 25.0 - [id number] - [id number] Implanted:Qty: 1 on 09/03/2021 by Deon Griffin MD at OR [facility] Left: Eye [employer]OM[employer] 10/02/2025 [id number] / [id number] / [id number] Lens Intraoc 26.0 - [id number] - [id number] Implanted:Qty: 1 on 09/17/2021 by Deon Griffin MD at OR [facility] Right: Eye [employer]CH [employer] LOMB 10/03/2025 [id number] / [id number] / [id number] documented as of this encounter Visit Diagnoses Diagnosis 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
--- OUTSIDE RECORDS SUMMARY | 2023-08-13 06:46 | External Medical Summary | Summary of Care ---
Author Name Unknown Organization [facility] Address [address] [place] [address] Phone [phone] Care Team Providers Care Program Manager Rn Name Role Phone Dalila Bauman MD Primary Care Provider [phone] Reason for Visit * Reason Comments eRx-Medication Refill Encounter Details Date Type Department Care Team (Late st Contact Info) Description 05/13/2023 Refill General Internal Medicine [facility] [place] [address] [facility] [place] [id number] [facility]ila [facility] [address] HTN, goal below 150/90; Type 2 diabetes mellitus with stage 3b chronic kidney disease, without long-term current use of insulin ([facility]) Allergies Active Allergy Reactions Criticality Noted Date Comments Latex 01/09/2021 Penicillins 01/09/2021 Sulfa Antibiotics 01/09/2021 documented as of this encounter (statuses as of 05/14/2023) Medications Medication Sig Dispensed Refills Start Date [...] hemoglobin A1c goal of less than 8.0% ([facility]) Use to test blood glucose 3 times [...] disease, without long-term current use of insulin ([facility]),HTN, goal below 150/90,Bilateral leg edema Take 1 to 2 tablets per week. 45 Tablet 3 09/24/2022 Active Lisinopril 20 MG Oral Tablet (Prinivil)Indicat ions:Type 2 diabetes mellitus with stage 3b chronic kidney disease, without long-term current use of insulin ([facility]),HTN, goal below 150/90,History of hypertensive crisis Take [...] 3d/wk 10/18/2021 45 Tablet 3 10/13/2022 Active Tradjenta 5 MG Oral Tablet (linaGLIPtin)Dora [...] every evening 90 Tablet 1 05/14/2023 Active Verapamil HCl ER 180 MG Oral Tablet Extended Release (Isoptin SR)Indications:HT N, goal below 150/90,Type 2 diabetes mellitus with stage 3b chronic kidney disease, without long-term current use of insulin ([facility]) take 1 tablet by mouth every evening 90 Tablet 1 11/24/2022 05/14/20 23 Discontinued documented as of this encounter (statuses as of 05/14/2023) Active Problems Problem Noted Date Diagnosed Date [...] as of this encounter (statuses as of 05/14/2023) Resolved Problems Problem Noted Date Diagnosed Date Resolved Date Type 2 diabetes mellitus wit h stage 3b chronic kidney disease, without long-term current use of insulin 07/26/2021 03/20/2022 Overview: Per CKD protocol documented as of this encounter (statuses as of 05/14/2023) Immunizations Name Administration Dates Next Due COVID-19 [...] encounter Miscellaneous Notes * Telephone Encounter - Dalila Bauman MD - 05/14/2023 12:37 PM ESTSigned Prescriptions: Disp Refills Verapamil HCl ER 180 MG Oral Tablet Extend*90 Tab*1 Sig: take 1 tablet by mouth every evening Authorizing Provider: DALILA BAUMAN * Telephone Encounter - Mago Valdovinos [facility] - 05/14/2023 7:48 AM ESTPending Prescriptions: Disp Refills Verapamil HCl ER 180 MG Oral Tablet Extend*90 Tab*1 Sig: take 1 tablet by mouth every evening * Telephone Encounter - Mago Valdovinos RP - 05/14/2023 7:47 AM EST Unable to authorize medication refills for pended medication(s) at this time. Part of the protocol criteria used for refill authorization was not satisfied. Patient needs creatinine within normal limits. Please approve if appropriate. Serum creatinine: 1.7 mg/dL (H) 05/04/23 1624 Estimated creatinine clearance: 24.3 mL/min (A) Mago Wang Clinical Pharmacist [facility] ([facility]) [phone] 05/14/2023, 7:47 AM * Telephone Encounter - Mago Valdovinos RPh - 05/14/2023 7:47 AM EST Did you pend patient's preferred pharmacy and medication before forwarding?yes [facility] [id number] Pending Prescriptions: Disp Refills Verapamil HCl ER 180 MG Oral Tablet Exten*90 Tab*1 Sig: take 1 tablet by mouth every evening Last Visit: 05/04/2023 (in office), Visit date not found (telemedicine) Next Visit: 11/03/2023 If no future appointments scheduled, and last appointment is greater than a year ago, please schedule patient for a follow-up appointment Last date the medication was ordered: 11/24/22 Is this request for a controlled substance?No [...] PM HGBA1C 10.3 (A) 10/31/2021 12:00 AM documented in this encounter Plan of Treatment Upcoming Encounters Date Type Department Care Team (Late st Contact Info) Description 05/25/2023 2:00 PM EST Imaging [facility] [address] [facility] [address] 06/03/2023 1:30 PM EST Office Visit Vascular Surgery, [facility] [address] [place] [address] Francesco Cohen MD [address] [place] [address] 06/17/2023 3:30 PM EST Office Visit Cardiology, [facility] [address] [place] [address] Wiliam Schroeder MD [address] [place] [address] 09/11/2023 3:30 PM EST Office Visit Pharmacy, [facility] [address] [place] [address] Pharmacist1, [facility] [address] [place] [address] 09/11/2023 4:00 PM EST Office Visit Nephrology, [facility] [address] [place], [place] [address] Cornel Smith MD [address] [place], [place] [address] 10/29/2023 1:30 PM EDT Laboratory Laboratory [facility] [address] [place], [place] [id number] Park Lab [facility] [address] [place], [place] [address] 11/03/2023 2:00 PM EDT Office Visit General Internal Medicine [facility] [address] [place], [place] [address] Dalila Bauman MD [address] [place] [address] 11/10/2023 3:00 PM EDT Office Visit Hematology/Oncology [facility] [place] 200 [facility] [place] [address] Joshua Nunez MD [address] [facility] [place] [address] Health Maintenance Due Date Last Done Comments [...] D LEVEL ONCE IN A LIFETIME-USE SMARTSET# [id number] Completed 12/19/2022, 03/25/2022, 11/11/2021, Additional history exists GARDASIL-HPV IMMUNIZATION SERIES Aged Out No longer eligible based on patient's age to complete this topic MENINGOCOCCAL (MENACTRA/MENVEO) Aged Out No longer eligible based on patient's age to complete this topic documented as of this encounter Medical Devices Implanted Type Area Combination Technician Device Identifier Shelf Expiration Date Model / Serial / Lot Lens Intraoc 25.0 - [id number] - [id number] Implanted:Qty: 1 on 09/03/2021 by Deon Griffin MD at OR [facility] Left: Eye [employer] 10/02/2025 [id number] / [id number] / [id number] Lens Intraoc 26.0 - [id number] - [id number] Implanted:Qty: 1 on 09/17/2021 by Deon Griffin MD at OR [facility] Right: Eye [employer] LOMB 10/03/2025 [id number] / [id number] / [id number] documented as of this encounter Visit Diagnoses Diagnosis HTN, goal below 150/90 Type 2 diabetes mellitus with stage 3b chronic kidney disease, without long-term current use of insulin ([facility]) documented in this encounter Care Teams Program Manager Rn Relationship Specialty Start Date End Date Dalila Bauman MD [address] [facility] [place] [address] PCP - General Internal Medicine 01/09/21 documented as of this encounter
--- OUTSIDE RECORDS SUMMARY | 2023-08-13 06:47 | External Medical Summary | Summary of Care ---
Author Name Unknown Organization [facility] Address [address] [place] [address] Phone [phone] Care Team Providers Care [employer] Professor Name Role Phone Dalila Bauman MD Primary Care Provider [phone] Reason for Visit * Reason Comments eRx-Medication Refill Encounter Details Date Type Department Care Team (Late st Contact Info) Description 05/07/2023 Refill General Internal Medicine [facility] [place] [address] [facility] [place] [id number] Dalila Bauman MD [address] [place] [address] HTN, goal below 150/90 Allergies Active Allergy Reactions Criticality Noted Date Comments Latex 01/09/2021 Penicillins 01/09/2021 Sulfa Antibiotics 01/09/2021 documented as of this encounter (statuses as of 05/07/2023) Medications Medication Sig Dispensed Refills Start Date [...] less than 8.0% ([facility]) Use as directed every 14 days . [...] less than 8.0% ([facility]) Use with Lantus once daily 100 Each [...] 11/24/2022 Active Tradjenta 5 MG Oral Tablet (linaGLIPtin)Dora [...] of less than 8.0% ([facility]) Inject 33 Units under the skin in [...] once daily 90 Tablet 3 05/07/2023 Active Metoprolol Succinate ER 100 MG Oral Tablet Extended Release 24 Hour (toPROL XL)Indications:HT N, goal below 150/90 take 1 tablet by mouth once daily 90 Tablet 3 05/31/2022 05/07/20 23 Discontinued documented as of this encounter (statuses as of 05/07/2023) Active Problems Problem Noted Date Diagnosed Date [...] as of this encounter (statuses as of 05/07/2023) Resolved Problems Problem Noted Date Diagnosed Date Resolved Date Type 2 diabetes mellitus wit h stage 3b chronic kidney disease, without long-term current use of insulin 07/26/2021 03/20/2022 Overview: Per CKD protocol documented as of this encounter (statuses as of 05/07/2023) Immunizations Name Administration Dates Next Due COVID-19 [...] encounter Miscellaneous Notes * Telephone Encounter - Rebecca [address]resp[address] - 05/07/2023 8:41 PM EDT Signed Prescriptions: Disp Refills Metoprolol Succinate ER 100 MG Oral Tablet*90 Tab*3 Sig: take 1 tablet by mouth once dailyAuthorizing Provider: Luana BAUMAN User: REBECCA CRESPO----- documented in this encounter Plan of Treatment Upcoming Encounters Date Type Department Care Team (Late st Contact Info) Description 05/11/2023 3:30 PM EST Office Visit Hematology/Oncology [address] [place] [address] Joshua Nunez MD [address] [place] [address] [place] [address] 05/25/2023 2:00 PM EST Imaging Vascular Lab, [facility] [address]nd [facility] [address] [place] [address] 06/03/2023 1:30 PM EST Office Visit Vascular Surgery, [facility] [address] [place] [address] Francesco Cohen MD [address] [place] [address] 06/17/2023 3:30 PM EST Office Visit Cardiology, [facility] [address] [facility] [place] [address] Wiliam Schroeder MD [address] [place] [address] 09/11/2023 3:30 PM EST Office Visit Pharmacy, [facility] [address] [place] [address] Pharmacist1, [facility] [address] [facility] [place], [place] [address] 09/11/2023 4:00 PM EST Office Visit Nephrology, [facility] [address] [place], [place] [address] Cornel Smith MD [address] [facility] [place] [address] 11/03/2023 2:00 PM EDT Office Visit General Internal Medicine [facility] [place] [address] [place] [address] Dalila Bauman MD [address] [facility] [place], [place] [address] Health Maintenance Due Date Last Done Comments [...] D LEVEL ONCE IN A LIFETIME-USE SMARTSET# [id number] Completed 12/19/2022, 03/25/2022, 11/11/2021, Additional history exists GARDASIL-HPV IMMUNIZATION SERIES Aged Out No longer eligible based on patient's age to complete this topic MENINGOCOCCAL (MENACTRA/MENVEO) Aged Out No longer eligible based on patient's age to complete this topic documented as of this encounter Medical Devices Implanted Type Area Strategic Analyst Device Identifier Shelf Expiration Date Model / Serial / Lot Lens Intraoc 25.0 - [id number] - [id number] Implanted:Qty: 1 on 09/03/2021 by Deon Griffin MD at [facility] Left: Eye [employer] 10/02/2025 [id number] / [id number] / [id number] Lens Intraoc 26.0 - [id number] - [id number] Implanted:Qty: 1 on 09/17/2021 by Deon Griffin MD at OR [facility] Right: Eye [employer] 10/03/2025 [id number] / [id number] / [id number] documented as of this encounter Visit Diagnoses Diagnosis HTN, goal below 150/90 documented in this encounter Care Teams [employer] Professor Relationship Specialty Start Date End Date Dalila Bauman MD [address] [place] [address] PCP - General Internal Medicine 01/09/21 documented as of this encounter
--- OUTSIDE RECORDS SUMMARY | 2023-08-13 06:47 | External Medical Summary | Summary of Care ---
Author Name Unknown Organization [facility] Address [address] [place] [address] Phone [phone] Care Team Providers Care Wave Solder Offbearer Name Role Phone Dalila Bauman MD Primary Care Provider [phone] Reason for Visit * Reason Comments Follow Up 4mo return--still c/ o being extremely tired. Small tasks are very exhausting. Encounter Details Date Type Department Care Team (Late st Contact Info) Description 05/04/2023 3:00 PM EDT Office Visit General Internal Medicine [facility] [address] [facility] [address] [place] [id number] Dalila Bauman MD [address] [facility] [place] [address] Type 2 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 disease, with long-term current use of insulin ([facility])*; Type 2 diabetes mellitus with hemoglobin A1c goal of less than 8.0% ([facility]); HTN, goal below 150/90; Dyslipidemia, goal LDL below 70; Renal artery stenosis ([facility]); MGUS (monoclonal gammopathy of unknown significance); Adjustment disorder with anxious mood; Other insomnia; B12 deficiency; Senile osteoporosis Allergies Active Allergy Reactions Criticality Noted Date Comments Latex 01/09/2021 Penicillins 01/09/2021 Sulfa Antibiotics 01/09/2021 documented as of this encounter (statuses as of 05/04/2023) Medications Medication Sig Dispensed Refills Start Date End Date Status Aspirin EC 81 MG Oral Tablet Delayed ReleaseIndication s:Type 2 diabetes mellitus with retinopathy of both eyes, without long-term current use of insulin, macular edema presence unspecified, unspecified retinopathy severity ([facility]),Dyslipidemi a, goal LDL below 100 Take 1 Tablet by mouth in the morning. 100 Tab 3 01/09/2021 Active Prodigy Voice Blood Glucose w/Device KitIndications:Ty pe 2 diabetes mellitus with hemoglobin A1c goal of less than 8.0% ([facility]) Use to test blood glucose 3 times daily. DX: E11.9. 1 Kit 0 07/15/2021 Active FreeStyle Jimmy 2 SensorIndications :Type 2 diabetes mellitus with hemoglobin A1c goal of less than 8.0% ([facility]) Use as directed every 14 days [...] at bedtime 90 Tablet 3 05/14/2022 Active Metoprolol Succinate ER 100 MG Oral Tablet Extended Release 24 Hour (toPROL XL)Indications:HT N, goal below 150/90 take 1 tablet by mouth once daily 90 Tablet 3 05/31/2022 Active Insulin Pen Needle 32G X 6 MMIndications:Typ e 2 diabetes mellitus with hemoglobin A1c goal of less than 8.0% ([facility]) Use with Lantus once daily 100 Each 3 09/02/2022 Active Prodigy No Coding Blood Gluc In Vitro Strip (Glucose Blood)Indications :Type 2 diabetes mellitus with hemoglobin A1c goal of less than 8.0% ([facility]) Use to test blood glucose [...] without long-term current use of insulin ([facility]),HTN, goal below 150/90,History of hypertensive [...] A1c goal of less than 8.0% ([facility]) Use to test blood glucose 3 times daily. DX: E11.9 300 Each 3 10/03/2022 Active Vitamin B-12 1000 MCG Oral Tablet (Cyanocobalamin)I ndications:Type 2 diabetes mellitus with stage 3b chronic kidney disease, without long-term current use of insulin ([facility]) 1 tab on odd days only, start 06/13/2021--dec 3d/wk 10/18/2021 45 Tablet 3 10/13/2022 Active Verapamil HCl ER 180 MG Oral Tablet Extended Release (Isoptin SR)Indications:HT N, goal below 150/90,Type 2 diabetes mellitus with stage 3b chronic kidney disease, without long-term current use of insulin ([facility]) take 1 tablet by mouth every evening 90 Tablet 1 11/24/2022 Active Tradjenta 5 MG Oral Tablet (linaGLIPtin)Dora cations:Type 2 diabetes mellitus with retinopathy of both eyes, without long-term current use of insulin, macular edema presence unspecified, unspecified retinopathy severity ([facility]) take 1 tablet by mouth daily 90 Tablet 1 11/27/2022 Active CoQ10 200 MG Oral Capsule Take by mouth. 0 Active Jardiance 25 MG Oral Tablet (Empagliflozin)In dications:Type 2 diabetes mellitus with hemoglobin A1c goal of less than 8.0% ([facility]),Type 2 diabetes mellitus with stage 3b chronic kidney disease, without long-term current use of insulin ([facility]) take 1 tablet by mouth [...] mg daily 90 Tablet 1 05/04/2023 Active COVID-19 At Home Antigen Test In Vitro KitIndications:En counter for screening laboratory testing for COVID-19 virus Use as directed 3 Each 1 03/11/2023 05/04/20 23 Discontinued documented as of this encounter (statuses as of 05/04/2023) Active Problems Problem Noted Date Diagnosed Date [...] as of this encounter (statuses as of 05/04/2023) Resolved Problems Problem Noted Date Diagnosed Date Resolved Date Type 2 diabetes mellitus wit h stage 3b chronic kidney disease, without long-term current use of insulin 07/26/2021 03/20/2022 Overview: Per CKD protocol documented as of this encounter (statuses as of 05/04/2023) Immunizations Name Administration Dates Next Due COVID-19 mRNA, LNP-s, No Pre serve, 2-Dose Series (Moderna) 12/11/2020,11/13/2020 COVID-19, LNP-s, No Preserve , Michel-sucrose, Ages 12+ (ImaginAb) 12/18/2021 COVID-19, mRNA, LNP-s, PF, B ooster, [...] money to buy more. Never true 12/31/19 Within the past 12 months, t he [...] Sign Reading Time Taken Comments Blood Pressure 192/72 05/04/2023 3:02 PM EDT Pulse 63 05/04/2023 3:02 PM EDT Temperature 37.1 C (98.7 F) 05/04/2023 3:02 PM ED T Respiratory Rate - - Oxygen Saturation 96% 05/04/2023 3:02 PM EDT Inhaled Oxygen Concentration - - Weight 89.9 kg (198 lb 3.2 oz) 05/04/2023 3:02 P M EDT Height 162.6 cm (5' 4") 05/04/2023 3:02 PM EDT Body Mass Index 34.02 05/04/2023 3:02 PM EDT documented in this encounter Progress Notes * Dalila Bauman MD - 05/04/2023 3:07 PM EDT SUBJECTIVE: Ramila Urrutia is a 86 year old female. Chief Complaint Patient presents with Follow Up 4mo return--still c/o being extremely tired. Small tasks are very exhausting. HPI: 4 mth fu Wt Readings from Last 6 Encounters: 05/04/23 89.9 kg (198 lb 3.2 oz) 04/30/23 89.7 kg (197 lb 12.8 oz) 02/19/23 87.1 kg (192 lb) 12/30/22 87.2 kg (192 lb 4.8 oz) 11/04/22 86.8 kg (191 lb 6.4 oz) 10/24/22 86.5 kg (190 lb 11.2 oz) BP Readings from Last 6 Encounters: 05/04/23 192/72 04/30/23 192/70 02/19/23 201/82 12/30/22 162/64 11/04/22 166/72 10/24/22 164/52 Got CAMACHO February via--online [email or web address]--(they send equipment hearting test)-[place],she can ctr setting on her phone. Cost $4500. Medicare covers 950. Has 3 lower teeth,h/I implant in past--to with ins reg list of dentist she can see. [employer] 01/2021;Medical history type 2 diabetes f/u MTM now ; hard to ctr hypertension with stage 3B CKD f/b cardiology and nephrology, prior admissions for HTN crisis; dyslipidemia, history of hyperkalemia, B12 deficiency, history of COVID- 19 infection June 2021, bilateral cataract extraction, adjustment disorder with depressed mood after her move from [place]/anxiety, chr diastolic CHF; h/o hypercalcemia .03/27--24 calcium low at 40 mg/day--c/w [facility], [facility] 05/07/22-Asymptomatic 50-69% SLIME stenosis;Asymptomatic less than 50% LICA stenosis Renal artery stenosis, left 50-69%--saw [facility] 05/27-adv to ct asa, statins-fu 1 yr One daughter lives close by, has 4 grandchildren here, another daughter lives in [place] and has 2 grand kids, 2 sons are diseased. She worked for [employer] in the past and then in [employer] at [employer] for 4-5 years. 11/13/21--hosp FU 10/23/2021, discharged 11/08/2021 -hypertensive urgency, right carotid artery stenosis, elevated troponin, acute on chronic kidney disease. CT head without contrast no acute findings. CTA head and neck-negative ex extensive plaque right carotid bifurcation resulting in 70-80% stenosis proximal RT CA. 11/01/2021-renal duplex mildly elevated velocities left renal artery equivocal for left-sided renal artery stenosis, normal on the right however delayed upstrokes raising the possibility of an upstream stenosis. (Rt 9.9, left 11.5cm) 11/06/2021-for symptoms of word-finding difficulty-repeat head CT negative, MRI brain without contrast negative, trace mucosal thickening 1.4 cm retention cyst left maxillary sinus mild mucosal thickening right ethmoid sinus. 11/01/21-Echo-EF 70%, no ASD, hyperdynamic LV,mild CLVH, gr 1 DD, normal WM. Meds at DC: Ct atorvastatin 40 mg, metformin 1000 mg HS, B12 1000 mcg 3 times per week, aspirin 81 mg daily, Tylenol as needed, gingko, Co Q10, macular degeneration capsules; glimepiride 2 mg before breakfast; lisinopril 20 mg twice a day, metoprolol 100 mg daily, started on hydralazine 50 mg threetimes daily and verapamil 180 mg in the afternoon ---tradjenta 5mg not on dc list-taking -started on Zoloft 25mg for anxiety. Creatinine at discharge 1.96, home diuretic Lasix 3d/wk was discontinued. Glimepiride 4 mg dec to 2 mg, Jardiance 25mg dec to 10 mg daily. -added Claritin 10 mg daily 11/11/2021 Follow-up appointment echocardiogram 11/22/2021, [facility] clinic and cardiology appointment. Right upper quadrant ultrasound and mesentery Doppler 12/05/2021, Dr. Witt office for carotid Doppler 05/12/22 and follow up with him 05/19/2022. Discussed labs, has elevated calcium, avoid any lers-lom-iekqmso calcium supplements including Tumsor multivitamin Seen for acute generalized postprandial abdominal pain and bloating, recommended Pepcid twice a dayas needed, ultrasound abdomen as above 01/22/2022> Was readmitted 12/16- for hypertensive urgency. Meds >-atorvastatin 40 mg, lisinopril 20 mg twice a day, metoprolol XL 100 mg am, Verapamil 180 mg q.p.m., aspirin 81 mg daily, B12 1000 mcg 3 days a week, Zoloft 25 mg daily, Jardiance 10 mg daily, Tradjenta 5 mg daily, prandin 2mg tid Co Q10, Tylenol, Claritin, Pepcid twice a day(we Dc metformin sec ckd) Medication -added Isordil 20 mg three times daily , HLZ increased to 50 mg four times daily. Saw 12/25/2021>+ Aldactone 25 mg half tablet Thursday, saw Dr. Schroeder 01/10/2022, added back Lasix 20 mg 3 days per week, referred to vascular has appointment with 05/07/2022 11/13/21 -I inc liptor 80mg, inc jardiance 25mg, +amaryl 2mg lunch >inc 4mg 01/31/2202/24-Right upper quadrant ultrasound-gallstones, no evidence of acute cholecystitis, 2.4 cm RT renal cyst.-follow low-fat diet. 03/17/22-DEXA [id number] at the left femoral neck-high risk scan for osteoporosis. Last 2 GFR below 30 due to change in her antihypertensive regimes, will not be candidate for osteoporosis therapy. If GFR were to improve >30 would consider referral to soil expert at the [facility] . For now continue follow-up with Nephrology. 04/23/22- 24 urine for calcium low at 40 mg/day.--c/w [facility], [facility] familial hypocalciuric hypercalcemia. 04/14/22-Carotid Doppler-right ICA -50-69% stenosis ,may be higher degree of stenosis due to heavily calcified plaque;left ICAless than 50% stenosis .-- vascular in May.--adv 1 yr fu With Carotid doppler. Patient admitted 09/02/2022, discharged 09/04/2022. Ht urgency,hyponatremia Seen at cardiology office on 08/28/2022, hydralazine increased from 50-75 mg three times daily labs on 09/01/2022-sodium 129, K 5.7, sugar 434 calcium 10.5, A1c 10.7%, had recently been started on Lantus. Aldactone was held, repeat labs showed sodium 126, K 5.3>ER Repeat labs-WBC 6.3, HB 11, platelets 236, sodium 135, potassium 4.4, BUN/42/1.8, serum osmolality 306, urine osmolality 563, urine sodium 58, COVID swab negative, mg 1.7, phos 4.2, normal LFT, totalprotein 8.5, UA 1+ protein 3+ glucose on a poor sample. Chest x-ray cardiomegaly, EKG non acute findings, troponin was negative 09/11/22-BMP with Na+136, K+4.7, BUN/CR 26/1.3. Calcium 10.3. Ct 2 gm K+ diet-, increase lisinopril to 20 mg 1.5 tablets daily as bp still high. -repeat BMP last week september with nurse bp check--[facility] to hold lasix, aldactone 09/12/22-SPEP_-M spike 0.82, S -A monoclonal IgG kappa gammopathy is present.-IgG kappa free light chains Urine BJP-neg Refer to Hematology for evaluation --has appt 11/04/22 10/24/2022--brings in all med occasion bottles. Compliant with medications. Home blood pressures have been 150/70, blood sugars fasting have been between 120- 140. Denies headache chest pain or shortness of breath. Minimal leg edema. Admits occasional dizziness when she changes position or after she is watching TV. Has been using her walker regularly. No blurry vision double vision difficulty with speech or swallowing weakness or numbness of the extremities. No recent diarrhea or constipation. Has chronic tinnitus, no recent URI symptoms. Recent increase in creatinine felt to be due to increasing ANANT-inhibitor dose back, repeat labs today to monitor. Has Nephrology and Hematology Oncology appointment 11/04/22--The risk of progression tomultiple myeloma is about 1% per year, fu 6 mths with labs 11/20/22- CTA renal artery-( There are simple-appearing cortical cysts in both kidneys which measureup to 2.8 cm in the right lower pole and 2.1 cm in the left lower pole.) Right kidney atrophic with severe origin stenosis. Left kidney is also small, but less so. <50% stenosis of the left renal artery. ---stenting not needed for Right Renal artery stenosis as kidney atrophic If kidney function was declining precipitously, HTN becoming unmanageable, flash pulm edema, would take for aortagram, possible L renal intervention. Francesco Cohen MD 12/26--discussed at length above results, future implications Home BP 140-150/62-68 FBS 120-140, BL 127-170--saw MTM, a1c improved on lantus +3 meds. --also brings in a form to sign to have a pet at home for stress relief, she has had pets in past, does not have the 1st page, advised to have them send us a the same. MEDS> Continue asa 81 mg, atorvastatin 80 mg, coq10.verapamil 180 mg, metoprolol xl 100 mg,, isosorbide increased 20 to 30 mg three times daily, hydralazine increased 50 to 75 mg three times daily>inc 09/24/22 100mg tid. Aldactone held, Lasix to start if edema develops-takes 1/wk, lisinopril 20 mg twice a day Ct B12 3d/wk ,claritin,Tradjenta 5mg, Jardiance 25 mg; Glimepiride 2 mg was dc 09/02/[address]-now 36 units--was chg to tresiba 33 u today but will not st till 2023; prandin 2 mg ac,,possible SIADH in the setting of hyperglycemia ? question due to Zoloft 25 mg which was started lastyear -- Eye exam DrBrown 04/26>, 12/10/22-mild NPDR, ARMD,presbyopia Foot exam--saw podiatry-10/14/22-- mild diabetic neuropathy Defesr 04/27 Daughter from [place] visited and had overindulged. Eating and gained wt BT [place];Wakes up 3 am;DOWD 6 am, sleeps 10 am to 2 pm, late lunch, dinner 6pm Melatonin did not help, in past--unsure what kind--try ER form--ph to get and will chg her C/o fatigue -chr, no leg edema,cp/sob. She has refused to get flu, tetanus Prevnar and Shingrix vaccines Discussed about covid booster, RSV vaccine. Immunization History Administered Date(s) Administered COVID-19 mRNA, LNP-s, No Preserve, 2-Dose Series (Moderna) 11/13/2020, 12/11/2020 COVID-19, LNP-s, No Preserve, Michel-sucrose, Ages 12+ (Pfizer) 12/18/2021 Covid-19 Mrna, Lnp-s, No Preserve, Booster (Moderna) 07/11/2021 Hemoglobin AIC Results: Lab Results Component Value Date/Time HEMOGLOBIN A1C - [facility] 6.1 (H) 04/30/2023 11:43 AM HEMOGLOBIN A1C - [facility] 7.4 (H) 12/19/2022 01:45 PM HEMOGLOBIN A1C - [facility] 10.7 (H) 09/01/2022 01:06 PM HEMOGLOBIN A1C POCT - [facility] 8.8 (H) 04/23/2022 06:15 PM HEMOGLOBIN A1C POCT - [facility] 8.9 (H) 09/13/2021 03:42 PM Component Latest Ref Rng 01/09/2021 06/10/2021 10/17/2021 Vitamin B12 232-1,245 pg/mL 371 252 1,475 (H) Ferritin 13 - 150 ng/mL 45 Folic Acid >4.5 ng/mL >20.0 12/19/22--nml PTH,VD,lipids,LFT,BMP with cr bun/cr 36/1.7,cbc with Hb 11.8 [facility] labs --not done - CBC, CMP and myeloma panel. Results for orders placed or performed in visit on 04/30/23 HEMOGLOBIN A1C Result Value Ref Range Hemoglobin A1C 6.1 (H) 4.0 - 5.6 % Estimated Average Glucose 128 (H) <126 mg/dL LDL CHOLESTEROL (DIRECT MEASURE) Result Value Ref Range LDL Cholesterol (Direct Measure) 63 <=129 mg/dL Component Latest Ref Rng 10/14/2022 10/24/2022 12/19/2022 BUN 6 - 20 mg/dL 36 (H) 28 (H) 36 (H) Creatinine 0.5 - 1.0 mg/dL 1.8 (H) 1.5 (H) 1.7 (H) Estimated Glomerular Filtration Rate >=60 mL/min 26 (L) 33 (L) 28 (L) Sodium 135 - 146 mmol/L 137 137 140 Potassium 3.5 - 5.1 mmol/L 4.8 4.2 4.4 Chloride 98 - 107 mmol/L 105 105 105 CO2 22 - 32 mmol/L 19 (L) 20 (L) 21 (L) Anion Gap 7 - 15 mmol/L 13 12 14 Glucose 70 - 120 mg/dL 97 147 (H) 76 Calcium 8.4 - 10.2 mg/dL 9.6 9.9 10.1 Albumin 3.8 - 5.0 g/dL 4.2 4.4 AST 10 - 35 U/L 22 Alkaline Phosphatase 35 - 130 U/L 46 ALT 10 - 35 U/L 26 Bilirubin, Total <=1.2 mg/dL 0.3 Protein 6.0 - 8.3 g/dL 7.4 Protein 6.0 - 8.3 g/dL 7.1 Patient Active Problem List Diagnosis Code Type 2 diabetes mellitus with hemoglobin A1c goal of less than 8.0% (HCC) E11.9 HTN, goal below 150/90 I10 Dyslipidemia, goal LDL below 70 E78.5 Adjustment disorder with anxious mood F43.22 B12 deficiency E53.8 History of 2019 novel coronavirus disease (COVID-19) Z86.16 S/P bilateral cataract extraction Z98.41, Z98.42 Renal artery stenosis (HCC) I70.1 Carotid stenosis, asymptomatic, right I65.21 FHH (familial hypocalciuric hypercalcemia) E83.52 Chronic kidney disease, stage 3b ([facility]) N18.32 Type 2 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 disease, with long-term current use of insulin([facility]) E11.22, N18.4, Z79.4 Senile osteoporosis M81.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.2 Current Outpatient Medications Medication Sig Dispense Refill Acetaminophen 500 MG Oral Tablet (Tylenol) Take by mouth 2 Tablets every 8 hours as needed for Pain, Moderate. STOP ibuprofen 09/13/2021 (Patient taking differently: Take 2 Tablets by mouth in the morning and 2 Tablets before bedtime. STOP ibuprofen 09/13/2021.) 100 Tablet 0 Aspirin EC 81 MG Oral Tablet Delayed Release Take 1 Tablet by mouth in the morning. 100 Tab 3 Atorvastatin Calcium 80 MG Oral Tablet (Lipitor) take 1 tablet by mouth at bedtime INCREASE 11/13/2021 90 Tablet 2 CoQ10 200 MG Oral Capsule Take by mouth. FreeStyle Jimmy 2 Sensor Use as directed every 14 days . Change every 14 weeks 2 Each 11 Furosemide 20 MG Oral Tablet (Lasix) Take 1 to 2 tablets per week. 45 Tablet 3 hydrALAZINE HCl 100 MG Oral Tablet Take 1 Tablet by mouth in the morning and 1 Tablet at noon and 1Tablet before bedtime. 270 Tablet 3 Insulin Pen Needle 32G X 6 MM Use with Lantus once daily 100 Each 3 Isosorbide Dinitrate 30 MG Oral Tablet Take 1 Tablet by mouth in the morning and 1 Tablet at noon and 1 Tablet before bedtime. 270 Tablet 3 Jardiance 25 MG Oral Tablet (Empagliflozin) take 1 tablet by mouth every morning INCREASE BACK 11/14/21 AND STOP METFORMIN 90 Tablet 1 Lisinopril 20 MG Oral Tablet (Prinivil) Take 1 Tablet by mouth in the morning and 1 Tablet in the evening. 180 Tablet 3 Metoprolol Succinate ER 100 MG Oral Tablet Extended Release 24 Hour (toPROL XL) take 1 tablet by mouth once daily 90 Tablet 3 NATURAL SUPPLEMENT Take by mouth 4 Tablets daily . [employer] Plus Prevagen 10 MG Oral Capsule (Apoaequorin) Take by mouth every evening. Prodigy Lancets 28G Use to test blood glucose 3 times daily. DX: E11.9 300 Each 3 Prodigy No Coding Blood Gluc In Vitro Strip (Glucose Blood) Use to test blood glucose 3 times dailyas directed. 300 Strip 3 Prodigy Voice Blood Glucose w/Device Kit Use to test blood glucose 3 times daily. DX: E11.9. 1 Kit 0 RA Loratadine 10 MG Oral Tablet (Loratadine) take 1 tablet by mouth at bedtime 90 Tablet 3 Repaglinide 2 MG Oral Tablet (Prandin) take 1 tablet by mouth three times a day BEFORE MEALS Strength: 2 mg 270 Tablet 3 Sertraline HCl 50 MG Oral Tablet (Zoloft) TAKE 1/2 A TABLET BY MOUTH EVERY MORNING 45 Tablet 3 Tradjenta 5 MG Oral Tablet (linaGLIPtin) take 1 tablet by mouth daily 90 Tablet 1 Tresiba FlexTouch 100 UNIT/ML Subcutaneous Solution Pen-injector (Insulin Degludec) Inject 33 Unitsunder the skin in the morning. (Patient not taking: Reported on 05/04/2023) 5 Each 3 Verapamil HCl ER 180 MG Oral Tablet Extended Release (Isoptin SR) take 1 tablet by mouth every evening 90 Tablet 1 Vitamin B-12 1000 MCG Oral Tablet (Cyanocobalamin) 1 tab on odd days only, start 06/13/2021--dec 3d/wk 10/18/2021 45 Tablet 3 No current facility-administered medications for this visit. Review of patient's allergies indicates: Allergen Reactions Latex Penicillins Sulfa Antibiotics OBJECTIVE: BP 192/72 | Pulse 63 | Temp 37.1 C (98.7 F) (Tympanic) | Ht 1.626 m (5' 4") | Wt 89.9 kg (198 lb 3.2 oz) | SpO2 96% | BMI 34.02 kg/m | BSA 2.02 m PHYSICAL EXAM: General: alert, healthy, no distress, well nourished and well developed Head: Normocephalic, atraumatic Eye Exam: PERRLA, EOMI, Conjunctiva are pink and non-injected, sclera clear Neck: supple, +rt bruits, no JVD, thyroid normal size, non-tender, without nodularity Lymph: No palpable lymphadenopathy. Heart: Regular rhythm and rate, no murmurs and no gallops Lungs: lungs clear to auscultation Abdomen: Soft, non-tender, normal bowel sounds, no masses or organomegaly, no bruits Extremities: trace pitting ankle edema, no clubbing, no cyanosis. Neuro Exam: alert & oriented x 3 with fluent speech, no focal motor/sensory deficits, gait normal Skin: skin color, texture, turgor are normal, no rashes ASSESSMENT/PLAN: Type 2 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 disease, with long-term current use of insulin([facility]) (Primary) - HEMOGLOBIN A1C; Future; Expected date: 11/03/2023 Type 2 diabetes mellitus with hemoglobin A1c goal of less than 8.0% ([facility]) - HEMOGLOBIN A1C; Future; Expected date: 11/03/2023 ct current meds Lantus chg to tresiba from jul by [place] HTN, goal below 150/90 Home bp better per pt. If >150/90--may need to inc imdur to 30mg qid --GFR 28, nephrology in feb made no chg , may consider 24 hr amb BP meter., saw card 04/30/23 Call if any Cp/CAMACHO/inc edema/sob call for eval Ct fu hemonc. Mood Stable on low dose zoloft Drop home BP readings at next offic evisit Dyslipidemia, goal LDL below 70 - LIPID PANEL WITH DIRECT LDL IF TG IS HIGH; Future; Expected date: 11/03/2023 Renal artery stenosis (HCC) Has appt vasc 06/03/23 MGUS (monoclonal gammopathy of unknown significance) Adjustment disorder with anxious mood ct current meds Other insomnia - Melatonin ER 1 MG Oral Tablet Extended Release; daily1 tab at bedtime daily, if not improved may increase upto 5 mg daily B12 deficiency - VITAMIN B12; Future; Expected date: 05/04/2023 Senile osteoporosis Follow Up: Return in about 6 months (around 11/03/2023), or if symptoms worsen or fail to improve, for Fasting Labs 2-5 Days Before Next Visit, Return with Physician. | For: Fasting Labs 2-5 Days Before Next Visit, Return with Physician | Check-out note: B12 and Dr.Memon mae today '(This note was completed using the dictation program Fluency Direct. As such, there may be misspellings, word substitutions, or other variations that should not change the essence of the clinical content of this encounter note. If there is need for further clarification, please direct questions tothe provider listed above.) Patient and / caregiver verbalize understanding of above instructions and agrees with plan of care. Dalila Bauman MD 05/04/2023 documented in this encounter Nursing Notes * Kala Baca LPN - 05/04/2023 3:01 PM EDT Chief Complaint Patient presents with Follow Up 4mo return--still c/o being extremely tired. Small tasks are very exhausting. documented in this encounter Plan of Treatment Upcoming Encounters Date Type Department Care Team (Late st Contact Info) Description 05/11/2023 3:30 PM EST Office Visit Hematology/Oncology [facility] 200 [facility] [place] [address] Joshua Nunez MD 200 [facility] [place] [address] 05/25/2023 2:00 PM EST Imaging Vascular Lab, [facility] 2nd Floor, [place] 132 [facility] [place] [address] 06/03/2023 1:30 PM EST Office Visit Vascular Surgery, [facility] 132 [facility] [place] [address] Francesco Cohen MD [address] [place] [address] 06/17/2023 3:30 PM EST Office Visit Cardiology, [facility] 132 [facility] [place] [address] Wiliam Schroeder MD 132 [facility] [place] [address] 09/11/2023 3:30 PM EST Office Visit Pharmacy, [facility] 200 [facility] [place] [address] Pharmacist1, [facility] 200 [facility] [place] [address] 09/11/2023 4:00 PM EST Office Visit Nephrology, [facility] 200 [facility] [place] [address] Cornel Smith MD 200 [facility] [place] [address] 11/03/2023 2:00 PM EDT Office Visit General Internal Medicine [facility] 200 [facility] [place] [address] Dalila Bauman MD 200 [facility] [place] [address] Scheduled Orders Name Type Priority Associated Diagnoses Orde r Schedule HEMOGLOBIN A1C Lab Routine Type 2 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 disease, with long-term current use of insulin (HCC) Type 2 diabetes mellitus with hemoglobin A1c goal of less than 8.0% (HCC) Expected: 11/03/2023 (Approximate), Expires: 05/03/2024 LIPID PANEL WITH DIRECT LDL IF TG IS HIGH Lab Routine Dyslipidemia, goal LDL below 70 Expected: 11/03/2023, Expires: 05/04/2024 VITAMIN B12 Lab Routine B12 deficiency Expected: 05/04/2023 (Approximate), Expires: 05/03/2024 Health Maintenance Due Date Last Done Comments Pneumococcal Vaccine: 65+ Years (1 - PCV) 02/18/1941 DTaP,Tdap,and Td Vaccines (1 - Tdap) 1953 Zoster Vaccines (1 of 2) 02/18/1984 Hepatitis B (1 of 3 - Risk 3-dose series) 1994 Diabetic Foot Exam 10/16/2022 10/16/2021 COVID-19 Vaccine (2022-24 season) 2023 12/18/2021, 07/11/2021, 12/11/2020, Additional history exists Influenza Vaccine (FLU shot) (#1) 2023 Albumin/Creatinine Ratio 09/01/2023 09/01/2022, 07/07 Depression Screening 10/25/2023 10/24/2022 HbA1c 10/30/2023 04/30/2023, 12/04, 09/01/2022, Additional history exists Diabetic Eye Exam 12/11/2023 12/10/2022, 05/10/2021 DXA Scan 03/17/2024 03/17/2022 VITAMIN D LEVEL ONCE IN A LIFETIME-USE SMARTSET# [id number] Completed 12/19/2022, 03/25/2022, 11/11/2021, Additional history exists GARDASIL-HPV IMMUNIZATION SERIES Aged Out No longer eligible based on patient's age to complete this topic MENINGOCOCCAL (MENACTRA/MENVEO) Aged Out No longer eligible based on patient's age to complete this topic documented as of this encounter Medical Devices Implanted Type Area Credit Processor Device Identifier Shelf Expiration Date Model / Serial / Lot Lens Intraoc 25.0 - [id number] - [id number] Implanted:Qty: 1 on 09/03/2021 by Deon Griffin MD at OR [facility] Left: Eye [employer]USCH [employer] LOMB 10/02/2025 [id number] / [id number] / [id number] Lens Intraoc 26.0 - [id number] - [id number] Implanted:Qty: 1 on 09/17/2021 by Deon Griffin MD at OR [facility] Right: Eye BAUSCH [employer] LOMB 10/03/2025 [id number] / [id number] / [id number] documented as of this encounter Visit Diagnoses Diagnosis Type 2 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 disease, with long-term current use of insulin (HCC)- Primary Type 2 diabetes mellitus with hemoglobin A1c goal of less than 8.0% ([facility]) HTN, goal below 150/90 Dyslipidemia, goal LDL below 70 Other and unspecified hyperlipidemia Renal artery stenosis (HCC) Atherosclerosis of renal artery MGUS (monoclonal gammopathy of unknown significance) Monoclonal paraproteinemia Adjustment disorder with anxious mood Adjustment disorder with anxiety Other insomnia B12 deficiency Other B-complex deficiencies Senile osteoporosis documented in this encounter Care Teams Wave Solder Offbearer Relationship Specialty Start Date End Date Dalila Bauman MD [address] [place] [address] PCP - General Internal Medicine 01/09/21 documented as of this encounter
--- OUTSIDE RECORDS SUMMARY | 2023-08-13 06:47 | External Medical Summary | Summary of Care ---
Author Name Unknown Organization [facility] Address [address] [place] [facility] [place] [address] Phone [phone] Care Team Providers Care Photocomposing Machine Operator Name Role Phone Dalila Bauman MD Primary Care Provider [phone] Reason for Visit * Reason Onset Date Comments Advice 05/11/2023 Encounter Details Date Type Department Care Team (Late st Contact Info) Description 05/11/2023 Telephone Hematology/Oncology [facility] [place] [address] [place] [address] Joshua Nunez MD [address] [place] [address] Advice Allergies Active Allergy Reactions Criticality Noted Date [...] A1c goal of less than 8.0% ([facility]) Use with Lantus once daily 100 Each 3 09/02/2022 Active Prodigy No Coding Blood Gluc In Vitro Strip (Glucose Blood)Indications:T ype 2 diabetes mellitus with hemoglobin A1c goal of less than 8.0% ([facility]) Use to test blood glucose 3 times [...] without long-term current use of insulin ([facility]),HTN, goal below 150/90,Bilateral leg edema Take 1 to 2 tablets per week. 45 Tablet 3 09/24/2022 Active Lisinopril 20 MG Oral Tablet (Prinivil)Indicatio ns:Type 2 diabetes mellitus with stage 3b chronic kidney disease, without long-term current use of insulin ([facility]),HTN, goal below 150/90,History of hypertensive crisis Take [...] A1c goal of less than 8.0% ([facility]) Use to test blood glucose 3 times [...] macular edema presence unspecified, unspecified retinopathy severity ([facility]) take 1 tablet by mouth daily 90 Tablet 1 11/27/2022 Active CoQ10 200 MG Oral Capsule Take by mouth. 0 Active Jardiance 25 MG Oral Tablet (Empagliflozin)Dora cations:Type 2 diabetes mellitus with hemoglobin A1c goal of less than 8.0% ([facility]),Type 2 diabetes mellitus with stage 3b chronic kidney disease, without long-term current use of insulin (HCC) take 1 tablet by mouth every morning INCREASE BACK 11/14/21 AND STOP METFORMIN 90 Tablet 1 01/22/2023 Active Repaglinide 2 MG Oral Tablet (Prandin)Indication s:Type 2 diabetes mellitus with hemoglobin A1c goal of less than 8.0% ([facility]) take 1 tablet by mouth three times [...] encounter Miscellaneous Notes * Telephone Encounter - Yina Lambert OSA - 05/11/2023 9:32 AM EST Called the patient and had to lmom with all info stating appt for today was moved up to 2:30pm. * Telephone Encounter - Carolyne Cisneros OSA - 05/11/2023 8:57 AM EST PT's daughter is calling in regards to a call she received for her mom's schedule. She states that she should not be phoned unless it is an emergency, but it was regarding an appointment. She states that Ramila needs to be call directly. Please advise: [phone] documented in this encounter Plan of Treatment Upcoming Encounters Date Type Department Care Team (Late st Contact Info) Description 05/11/2023 2:30 PM EST Office Visit Hematology/Oncology [facility] 200 [facility] [place] [place] [address] Joshua Nunez MD [address] [facility] [address] 05/25/2023 2:00 PM EST Imaging [facility] Lab, [facility] [address] [facility] [place] [address] 06/03/2023 1:30 PM EST Office Visit Vascular Surgery, [facility] 132 [place] [address] Francesco Cohen MD [address] [place] [address] 06/17/2023 3:30 PM EST Office Visit Cardiology, [facility] 132 [facility] [address] Wiliam Schroeder MD 132 [facility] [place] [address] 09/11/2023 3:30 PM EST Office Visit Pharmacy, [facility] [address] [place] [address] Pharmacist1, [facility] [address] [place] [address] 09/11/2023 4:00 PM EST Office Visit Nephrology, [facility] [address] [facility] [place] [address] Cornel Smith MD [address] [facility] [address] [place] [address] 11/03/2023 2:00 PM EDT Office Visit General Internal Medicine [facility] [place] [address] [facility] [place] [address] Dalila Bauman MD [address] [facility] [address] [place] [address] Health Maintenance Due Date Last Done Comments [...] D LEVEL ONCE IN A LIFETIME-USE SMARTSET# [id number] Completed 12/19/2022, 03/25/2022, 11/11/2021, Additional history exists GARDASIL-HPV IMMUNIZATION SERIES Aged Out No longer eligible based on patient's age to complete this topic MENINGOCOCCAL (MENACTRA/MENVEO) Aged Out No longer eligible based on patient's age to complete this topic documented as of this encounter Medical Devices Implanted Type Area Hosting Engineer Device Identifier Shelf Expiration Date Model / Serial / Lot Lens Intraoc 25.0 - [id number] - [id number] Implanted:Qty: 1 on 09/03/2021 by Deon Griffin MD at OR [facility] Left: Eye BAUSCH [employer] LOMB 10/02/2025 [id number] / [id number] / [id number] Lens Intraoc 26.0 - [id number] - [id number] Implanted:Qty: 1 on 09/17/2021 by Deon Griffin MD at OR [facility] Right: Eye BAUSCH [employer] LOMB 10/03/2025 [id number] / [id number] / [id number] documented as of this encounter Care Teams Photocomposing Machine Operator Relationship Specialty Start Date End Date Dalila Bauman MD [address] [facility] [place] [address] PCP - General Internal Medicine 01/09/21 documented as of this encounter
--- OUTSIDE RECORDS SUMMARY | 2023-08-13 06:47 | External Medical Summary | Summary of Care ---
Author Name Unknown Organization [facility] Address [address] [facility] [place] [address] Phone [phone] Care Team Providers Care Oncology Physician Assistant Name Role Phone Dalila Bauman MD Primary Care Provider [phone] Reason for Visit * Reason Onset Date Comments Advice 05/11/2023 Encounter Details Date Type Department Care Team (Late st Contact Info) Description 05/11/2023 Telephone Hematology/Oncology [facility] [place] [address] [place] [address] Joshau Nunez MD [address] [place] [address] Advice Allergies Active Allergy Reactions Criticality Noted [...] A1c goal of less than 8.0% ([facility]) Use with Lantus once daily 100 Each 3 09/02/2022 Active Prodigy No Coding Blood Gluc In Vitro Strip (Glucose Blood)Indications:T ype 2 diabetes mellitus with hemoglobin A1c goal of less than 8.0% ([facility]) Use to test blood glucose 3 times [...] without long-term current use of insulin ([facility]),HTN, goal below 150/90,Bilateral leg edema Take 1 to 2 tablets per week. 45 Tablet 3 09/24/2022 Active Lisinopril 20 MG Oral Tablet (Prinivil)Indicatio ns:Type 2 diabetes mellitus with stage 3b chronic kidney disease, without long-term current use of insulin ([facility]),HTN, goal below 150/90,History of hypertensive crisis Take [...] A1c goal of less than 8.0% ([facility]) Use to test blood glucose 3 times [...] edema presence unspecified, unspecified retinopathy severity ([facility]) take 1 tablet by mouth daily 90 Tablet 1 11/27/2022 Active CoQ10 200 MG Oral Capsule Take by mouth. 0 Active Jardiance 25 MG Oral Tablet (Empagliflozin)Dora cations:Type 2 diabetes mellitus with hemoglobin A1c goal of less than 8.0% ([facility]),Type 2 diabetes mellitus with stage 3b chronic kidney disease, without long-term current use of insulin (HCC) take 1 tablet by mouth every morning INCREASE BACK 11/14/21 AND STOP METFORMIN 90 Tablet 1 01/22/2023 Active Repaglinide 2 MG Oral Tablet (Prandin)Indication s:Type 2 diabetes mellitus with hemoglobin A1c goal of less than 8.0% ([facility]) take 1 tablet by mouth three times [...] needs to be call directly. Please advise: [phone] documented in this encounter Plan of Treatment Upcoming Encounters Date Type Department Care Team (Late st Contact Info) Description 05/11/2023 2:30 PM EST Office Visit Hematology/Oncology [facility] 200 [facility] [place] [place] [address] Joshua Nunez MD 200 [facility] [place] [address] 05/25/2023 2:00 PM EST Imaging [facility], [facility] 132 [place] [address] 06/03/2023 1:30 PM EST Office Visit Vascular Surgery, [facility] 132 [place] [address] Francesco Cohen MD [address] [place] [address] 06/17/2023 3:30 PM EST Office Visit Cardiology, [facility] 132 [place] [address] Wiliam Schroeder MD 132 [facility] [place] [address] 09/11/2023 3:30 PM EST Office Visit Pharmacy, [facility] [address] [place] [address] Pharmacist1, [facility] [address] [place] [place] [address] 09/11/2023 4:00 PM EST Office Visit Nephrology, [facility] 200 [facility] [place] [address] Cornel Smith MD [address] [facility] [address] [place] [address] 11/03/2023 2:00 PM EDT Office Visit General Internal Medicine [facility] [place] 200 [facility] [place] [address] Dalila Bauman MD [address] [facility] [address] [facility] [address] Health Maintenance Due Date Last Done Comments [...] D LEVEL ONCE IN A LIFETIME-USE SMARTSET# [id number] Completed 12/19/2022, 03/25/2022, 11/11/2021, Additional history exists GARDASIL-HPV IMMUNIZATION SERIES Aged Out No longer eligible based on patient's age to complete this topic MENINGOCOCCAL (MENACTRA/MENVEO) Aged Out No longer eligible based on patient's age to complete this topic documented as of this encounter Medical Devices Implanted Type Area Analytical Laboratory Technician Device Identifier Shelf Expiration Date Model / Serial / Lot Lens Intraoc 25.0 - [id number] - [id number] Implanted:Qty: 1 on 09/03/2021 by Deon Griffin MD at OR [facility] Left: Eye BAUSCH [employer] LOMB 10/02/2025 [id number] / [id number] / [id number] Lens Intraoc 26.0 - [id number] - [id number] Implanted:Qty: 1 on 09/17/2021 by Deon Griffin MD at OR [facility] Right: Eye BAUSCH & LOMB 10/03/2025 [id number] / [id number] / [id number] documented as of this encounter Care Teams Oncology Physician Assistant Relationship Specialty Start Date End Date Dalila Bauman MD 200 [facility] [place] [address] PCP - General Internal Medicine 01/09/21 documented as of this encounter
--- OUTSIDE RECORDS SUMMARY | 2023-08-13 06:47 | External Medical Summary | Summary of Care ---
Author Name Unknown Organization [facility] Address [address] [facility] [place] [address] Phone [phone] Care Team Providers Care Stock Saw Operator Name Role Phone Dalila Bauman MD Primary Care Provider [phone] Reason for Visit * Reason Onset Date Comments Advice 05/11/2023 Encounter Details Date Type Department Care Team (Late st Contact Info) Description 05/11/2023 Telephone Hematology/Oncology [facility] [place] [address] [place] [address] Joshua Nunez MD [address] [place] [address] Advice Allergies Active Allergy Reactions Criticality Noted [...] macular edema presence unspecified, unspecified retinopathy severity ([facility]) take 1 tablet by mouth daily [...] encounter Miscellaneous Notes * Telephone Encounter - Shandra Mancia, CRISTIAN - 05/11/2023 2:10 PM EST Pt calling her ride just arrived for her appt at 2:30 today. She wanted to make staff aware she is on her way. * Telephone Encounter - Yina Lambert OSA [...] needs to be call directly. Please advise: [phone] documented in this encounter Plan of Treatment Upcoming Encounters Date Type Department Care Team (Late st Contact Info) Description 05/11/2023 2:30 PM EST Office Visit Hematology/Oncology [facility] 200 [facility] [place] [address] Joshua Nunez MD [address] [place] [address] 05/25/2023 2:00 PM EST Imaging Vascular Lab, [facility] 2nd Floor, [place] 132 [facility] [place] [address] 06/03/2023 1:30 PM EST Office Visit Vascular Surgery, [facility] 132 [facility] [place] [address] Francesco Cohen MD [address] [facility] [place] [address] 06/17/2023 3:30 PM EST Office Visit Cardiology, [facility] 132 [facility] [place] [address] Wiliam Schroeder MD [address] [place] [address] 09/11/2023 3:30 PM EST Office Visit Pharmacy, [facility] 200 [facility] [place] [address] Pharmacist1, [facility] 200 [facility] [place] [address] 09/11/2023 4:00 PM EST Office Visit Nephrology, [facility] 200 [facility] [place] [address] Cornel Smith MD 200 [facility] [place] [address] 11/03/2023 2:00 PM EDT Office Visit General Internal Medicine [facility] 200 [facility] [place] [address] Dalila Bauman MD [address] [facility] [address] [facility] [place] [address] Health Maintenance Due Date Last Done Comments [...] D LEVEL ONCE IN A LIFETIME-USE SMARTSET# [id number] Completed 12/19/2022, 03/25/2022, 11/11/2021, Additional history exists GARDASIL-HPV IMMUNIZATION SERIES Aged Out No longer eligible based on patient's age to complete this topic MENINGOCOCCAL (MENACTRA/MENVEO) Aged Out No longer eligible based on patient's age to complete this topic documented as of this encounter Medical Devices Implanted Type Area School Curriculum Developer Device Identifier Shelf Expiration Date Model / Serial / Lot Lens Intraoc 25.0 - [id number] - [id number] Implanted:Qty: 1 on 09/03/2021 by Deon Griffin MD at OR [facility] Left: Eye BAUSCH & LOMB 10/02/2025 [id number] / [id number] / [id number] Lens Intraoc 26.0 - [id number] - [id number] Implanted:Qty: 1 on 09/17/2021 by Deon Griffin MD at OR [facility] Right: Eye BAUSCH & LOMB 10/03/2025 [id number] / [id number] / [id number] documented as of this encounter Care Teams Stock Saw Operator Relationship Specialty Start Date End Date Dalila Bauman MD 200 [place] [address] PCP - General Internal Medicine 01/09/21 documented as of this encounter
--- OUTSIDE RECORDS SUMMARY | 2023-08-13 06:47 | External Medical Summary | Summary of Care ---
Author Name Unknown Organization [facility] Address [address] [place] [address] Phone [phone] Care Team Providers Care Rf Technician Name Role Phone Dalila Bauman MD Primary Care Provider [phone] Reason for Visit * Reason Comments Outpatient Testing Encounter Details Date Type Department Care Team (Late st Contact Info) Description 05/04/2023 4:10 PM EDT Laboratory Laboratory [facility] State Amanda Gonzalez [address] [place] [address] [place], Lab Scenery [address] [place] [address] B12 deficiency; MGUS (monoclonal gammopathy of unknown significance) Allergies Active Allergy Reactions Criticality Noted Date [...] A1c goal of less than 8.0% ([facility]) Use with Lantus once daily 100 Each 3 09/02/2022 Active Prodigy No Coding Blood Gluc In Vitro Strip (Glucose Blood)Indications:T ype 2 diabetes mellitus with hemoglobin A1c goal of less than 8.0% ([facility]) Use to test blood [...] without long-term current use of insulin ([facility]),HTN, goal below 150/90,Bilateral leg edema Take 1 to 2 tablets per week. 45 Tablet 3 09/24/2022 Active Lisinopril 20 MG Oral Tablet (Prinivil)Indicatio ns:Type 2 diabetes mellitus with stage 3b chronic kidney disease, without long-term current use of insulin ([facility]),HTN, goal below 150/90,History of [...] A1c goal of less than 8.0% ([facility]) Use to test blood glucose 3 times daily. DX: E11.9 300 Each 3 10/03/2022 Active Vitamin B-12 1000 MCG Oral Tablet (Cyanocobalamin)Ind ications:Type 2 diabetes mellitus with stage 3b chronic kidney disease, without long-term current use of insulin ([facility]) 1 tab on odd days only, start 06/13/2021--dec 3d/wk 10/18/2021 45 Tablet 3 10/13/2022 Active Verapamil HCl ER 180 MG Oral Tablet Extended Release (Isoptin SR)Indications:HTN, goal below 150/90,Type 2 diabetes mellitus with stage 3b chronic kidney disease, without long-term current use of insulin ([facility]) take 1 tablet by mouth every evening 90 Tablet 1 11/24/2022 Active Tradjenta 5 MG Oral Tablet (linaGLIPtin)Indica tions:Type 2 diabetes mellitus with retinopathy of both eyes, without long-term current use of insulin, macular edema presence unspecified, unspecified retinopathy severity ([facility]) take 1 tablet by mouth daily 90 Tablet 1 11/27/2022 Active CoQ10 200 MG Oral Capsule Take by mouth. 0 Active Jardiance 25 MG Oral Tablet (Empagliflozin)Dora cations:Type 2 diabetes mellitus with hemoglobin A1c goal of less than 8.0% ([facility]),Type 2 diabetes mellitus with stage 3b chronic kidney disease, without long-term current use of insulin ([facility]) take 1 tablet by mouth every morning INCREASE BACK 11/14/21 AND STOP METFORMIN 90 Tablet 1 01/22/2023 Active Repaglinide 2 MG Oral Tablet (Prandin)Indication s:Type 2 diabetes mellitus with hemoglobin A1c goal of less than 8.0% ([facility]) take 1 tablet by [...] mg daily 90 Tablet 1 05/04/2023 Active documented as of this encounter (statuses [...] 05/11/2023 3:30 PM EST Office Visit Hematology/Oncology State Amanda Dalal [address] [place], [place] [id number] Joshua Nunez MD [address] [place], [place] [address] 05/25/2023 2:00 PM EST [facility] [address] [place] [address] 06/03/2023 1:30 PM EST Office Visit Vascular Surgery, [facility] [address] [place] [address] Francesco Cohen MD [address] [place] [address] 06/17/2023 3:30 PM EST Office Visit Cardiology, [facility] [address] [place] [address] Wiliam Schroeder MD [address] [place] [address] 09/11/2023 3:30 PM EST Office Visit Pharmacy, [facility] [address] [facility] [place] [address] Pharmacist1, [facility] [address] [facility] [place] [address] 09/11/2023 4:00 PM EST Office Visit Nephrology, [facility] 200 [facility] [place] [address] Cornel Smith MD 200 [facility] [place] [address] 11/03/2023 2:00 PM EDT Office Visit General Internal Medicine [facility] 200 [facility] [address] [place] [address] Dalila Bauman MD 200 [facility] [place] [address] Pending Results Name Type Priority Associated Diagnoses Date /Time VITAMIN B12 Lab Routine B12 deficiency 05/04/2023 4:24 PM EDT CBC WITH WBC DIFFERENTIAL Lab STAT MGUS (monoclonal gammopathy of unknown significance) 05/04/2023 4:24 PM EDT COMPREHENSIVE METABOLIC PANEL Lab STAT MGUS (monoclonal gammopathy of unknown significance) 05/04/2023 4:24 PM EDT SERUM PROTEIN ELECTROPHORESIS REFLEX PROFILE Lab STAT MGUS (monoclonal gammopathy of unknown significance) 05/04/2023 4:24 PM EDT SERUM FREE LIGHT CHAINS Lab STAT MGUS (monoclonal gammopathy of unknown significance) 05/04/2023 4:24 PM EDT IMMUNOGLOBULIN QUANTITATIVE Lab STAT MGUS (monoclonal gammopathy of unknown significance) 05/04/2023 4:24 PM EDT CBC Lab STAT MGUS (monoclonal gammopathy of unknown significance) 05/04/2023 4:24 PM EDT DIFFERENTIAL, AUTOMATED Lab STAT MGUS (monoclonal gammopathy of unknown significance) 05/04/2023 4:24 PM EDT Health Maintenance Due Date Last Done Comments [...] D LEVEL ONCE IN A LIFETIME-USE SMARTSET# [id number] Completed 12/19/2022, 03/25/2022, 11/11/2021, Additional history exists GARDASIL-HPV IMMUNIZATION SERIES Aged Out No longer eligible based on patient's age to complete this topic MENINGOCOCCAL (MENACTRA/MENVEO) Aged Out No longer eligible based on patient's age to complete this topic documented as of this encounter Medical Devices Implanted Type Area Rubber Stamps And Dies Supervisor Device Identifier Shelf Expiration Date Model / Serial / Lot Lens Intraoc 25.0 - [id number] - [id number] Implanted:Qty: 1 on 09/03/2021 by Deon Griffin MD at OR [facility] Left: Eye [employer] 10/02/2025 [id number] / [id number] / [id number] Lens Intraoc 26.0 - [id number] - [id number] Implanted:Qty: 1 on 09/17/2021 by Deon Griffin MD at OR [facility] Right: Eye [employer]OM[employer] 10/03/2025 [id number] / [id number] / [id number] documented as of this encounter Visit Diagnoses Diagnosis B12 deficiency Other B-complex deficiencies MGUS (monoclonal gammopathy of unknown significance) Monoclonal paraproteinemia documented in this encounter Care Teams Rf Technician Relationship Specialty Start Date End Date Dalila Bauman MD 200 [place] [address] PCP - General Internal Medicine 01/09/21 documented as of this encounter
--- OUTSIDE RECORDS SUMMARY | 2023-08-13 06:48 | External Medical Summary ---
Author Name Unknown Address Unknown Organization K01:[facility] [place] [address] [place] [address] Laboratory Report Ordering Provider Test Date Status SHADI FELIX 05/04/2023 14:11:19 Final Observation Date Value Abnormality Reference (Units) Status Protein, 24-hr Urine 05/04/2023 14:11:19 21 (mg/dL) Final Immunofixation for 24 hour Urine Narrative 05/04/2023 14:11:19 Monoclonal intact immunoglobulins present; no monoclonal free light chain detected. A monoclonal IgG kappa gammopathy is present. Final Performing Location [facility] [place] [address] [place] [address]
--- OUTSIDE RECORDS SUMMARY | 2023-08-13 06:48 | External Medical Summary | Summary of Care ---
Author Name Unknown Organization [facility] Address [address] [facility] [address] Phone [phone] Care Team Providers Care Nursing Coordinator Name Role Phone Dalila Bauman MD Primary Care Provider [phone] Reason for Visit * Reason Comments Diabetes Follow-Up Dosage Adjustment In Person (Anticoag Cl inic) Encounter Details Date Type Department Care Team Description 02/20/2023 Office Visit Pharmacy, [place] [address] [facility] [place] [address] Pharmacist1, [facility] [address] [facility] [place] [address] Type 2 diabetes mellitus with hemoglobin A1c goal of less than 8.0% (HCC)* Allergies Active Allergy Reactions Severity Noted Date Comments Latex 01/09/2021 Penicillins 01/09/2021 Sulfa Antibiotics 01/09/2021 documented as of this encounter (statuses as of 02/20/2023) Medications Medication Sig Dispensed Refills Start Date [...] Active Additional Information Patient taking differently:1,000 mg OralBID(AM/PM), (No PRN reasons reported), STOP ibuprofen 09/13/2021, Reported on 08/28/2022 NATURAL SUPPLEMENT Take by mouth 4 Tablets daily . [facility] Plus 0 Active Sertraline HCl 50 MG Oral Tablet (Zoloft) TAKE 1/2 A TABLET BY MOUTH EVERY MORNING 45 Tablet 3 03/26/2022 Active Atorvastatin Calcium 80 MG Oral Tablet (Lipitor)Indication s:Renal artery stenosis (HCC),Carotid stenosis, asymptomatic, right,Dyslipidemia, goal LDL below 70 take 1 tablet by mouth at bedtime INCREASE 11/13/2021 90 Tablet 3 05/06/2022 Active RA Loratadine 10 MG Oral Tablet [...] A1c goal of less than 8.0% ([facility]) Use with Lantus once daily 100 Each 3 09/02/2022 Active Prodigy No Coding Blood Gluc In Vitro Strip (Glucose Blood)Indications:T ype 2 diabetes mellitus with hemoglobin A1c goal of less than 8.0% ([facility]) Use to test blood glucose 3 times daily as directed. 300 Strip 3 09/02/2022 Active Prevagen 10 MG Oral Capsule (Apoaequorin) Take by mouth every evening. 0 Active Insulin Glargine Solostar 100 UNIT/ML Subcutaneous Solution Pen-injector Inject 36 Units under the skin daily. (increase by 3 units every 3 days until AM BG <180) 30 mL 3 09/10/2022 Active hydrALAZINE HCl 100 MG Oral Tablet Take 1 Tablet by mouth in the morning and 1 Tablet at noon and 1 Tablet before bedtime. 270 Tablet 3 09/24/2022 Active Furosemide 20 MG Oral Tablet (Lasix)Indications: Type 2 diabetes mellitus with stage 3b chronic kidney disease, without long-term current use of insulin ([facility]),HTN, goal below 150/90,Bilateral leg edema Take 1 to 2 tablets per week. 45 Tablet 3 09/24/2022 Active Lisinopril 20 MG Oral Tablet (Prinivil)Indicatio ns:Type 2 diabetes mellitus with stage 3b chronic kidney disease, without long-term current use of insulin ([facility]),HTN, goal below 150/90,History of [...] A1c goal of less than 8.0% ([facility]) Use to test blood glucose 3 times daily. DX: E11.9 300 Each 3 10/03/2022 Active Vitamin B-12 1000 MCG Oral Tablet (Cyanocobalamin)Ind ications:Type 2 diabetes mellitus with stage 3b chronic kidney disease, without long-term current use of insulin ([facility]) 1 tab on odd days only, start 06/13/2021--dec 3d/wk 10/18/2021 45 Tablet 3 10/13/2022 Active Verapamil HCl ER 180 MG Oral Tablet Extended Release (Isoptin SR)Indications:HTN, goal below 150/90,Type 2 diabetes mellitus with stage 3b chronic kidney disease, without long-term current use of insulin ([facility]) take 1 tablet by mouth every evening 90 Tablet 1 11/24/2022 Active Tradjenta 5 MG Oral Tablet (linaGLIPtin)Indica tions:Type 2 diabetes mellitus with retinopathy of both eyes, without long-term current use of insulin, macular edema presence unspecified, unspecified retinopathy severity ([facility]) take 1 tablet by mouth daily 90 Tablet 1 11/27/2022 Active CoQ10 200 MG Oral Capsule Take by mouth. 0 Active Diclofenac Sodium 1 % External Gel (Voltaren) Apply topically to affected area 3 times a day as needed for Pain, Mild or Pain, Moderate. 0 01/01/2023 Active Diclofenac Sodium 1 % External Gel (Voltaren) Apply topically to affected area 3 times a day. Apply 2-4 gm to affected areas for pain 50 g 3 01/02/2023 Active Jardiance 25 MG Oral Tablet (Empagliflozin)Dora cations:Type 2 diabetes mellitus with hemoglobin A1c goal of less than 8.0% (HCC),Type 2 diabetes mellitus with stage 3b chronic kidney disease, without long-term current use of insulin ([facility]) take 1 tablet by mouth every morning INCREASE BACK 11/14/21 AND STOP METFORMIN 90 Tablet 1 01/22/2023 Active Repaglinide 2 MG Oral Tablet (Prandin)Indication s:Type 2 diabetes mellitus with hemoglobin A1c goal of less than 8.0% ([facility]) take 1 tablet by mouth three times a day BEFORE MEALS Strength: 2 mg 270 Tablet 3 2023 Active documented as of this encounter (statuses as of 02/20/2023) Active Problems Problem Noted Date 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 Submit urine soon; refer to Hematology for evaluation as discussed. 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 History of 2019 novel coronavirus diseas e (COVID-19) 10/16/2021 S/P bilateral cataract extraction 2021 HTN, goal below 150/90 07/26/2021 Dyslipidemia, goal LDL below 70 07/26/19 Adjustment disorder with anxious mood B12 deficiency 07/26/2021 Type 2 diabetes mellitus with hemoglobin A1c goal of less than 8.0% 07/02/2021 documented as of this encounter (statuses as of 02/20/2023) Resolved Problems Problem Noted Date Resolved Date Type 2 diabetes mellitus wit h stage 3b chronic kidney disease, without long-term current use of insulin 07/26/202103/06 Overview: Per CKD protocol documented as of this encounter (statuses as of 02/20/2023) Immunizations Name Administration Dates Next Due COVID-19 mRNA, LNP-s, No Pre serve, 2-Dose Series (Moderna) 12/11/2020,11/13/2020 COVID-19, LNP-s, No Preserve , Michel-sucrose, Ages 12+ (Pfizer) 12/18/2021 Covid-19 Mrna, Lnp-s, No Preserve, Booster (Mode rna) 07/11/2021 documented as of this encounter Social History Tobacco Use Types Packs/Day Years Used Date Smoking Tobacco: Never Smokeless Tobacco: Never Alcohol Use Standard Drinks/Week Comments Yes 2 (1 standard drink = 0.6 oz pur e alcohol) Alcohol Habits Answer Date Recorded How often do you have a drink containing alcohol ? 2-3 times a week 07/11/2021 How many drinks containing a lcohol do you have on a typical day when you are drinking? 1 or 2 07/11/2021 How often do you have six or more drinks on one occasion? Never 07/11/2021 Food Insecurity Answer Date Recorded Within the past 12 months, y ou worried that your food would run out before you got money to buy more. Never true 12/30/2022 Within the past 12 months, t he food you bought just didn't last and you didn't have money to get more. Never true 12/30/2022 Sex Assigned at Date Recorded Not on file Job Start Date Occupation Industry Not on file Not on file Not on file documented as of this encounter Progress Notes * Pedrito Mclain V, [facility] - 02/20/2023 1:37 PM EDT Medication Therapy Disease Management [facility] - Diabetes Management Progress Note Ramila Urrutia, identified by name and date of , is a 88 year old female being seen for diabetes management/education. Patient presents for return diabetic visit. DIABETES: Current diabetic medications: Lantus 36 units daily Prandin 2mg TID with meals Tradjenta 5mg QD Jardiance 25mg QAM Medication Injection Site: Abdomen Lifestyle: Diet: unchanged History of Treatment Barriers: Lifestyle: None Therapy considerations: Retinopathy (avoid GLP1a) Medication: None Glucose Review/SMBG: Readings obtained from patient documented BG logbook Pre am Pre Lunch Pre pm HS 119 173 213 221 140 127 196 196 180 170 220 164 148 185 177 138 115 124 174 243 121 186 308 147 226 183 140 189 375 107 227 107 167 110 119 151 Pre am Pre Lunch Pre pm HS Average 131 177 196 229 Hi 180 227 220 375 Lo 107 124 174 138 Range 73 103 46 237 Hypoglycemia: Does your blood sugar go below 70 mg/dL? No Hyperglycemia symptoms present: none Recent Labs Units 12/19/22 1345 09/01/22 1306 04/23/22 1815 HEMOGLOBIN A1C - [facility] % 7.4* 10.7* -- HEMOGLOBIN A1C POCT - [facility] % -- -- 8.8* Recent Labs Units 12/19/22 1345 10/24/22 1537 10/14/22 1415 ESTIMATED GLOMERULAR FILTRATION RATE - [facility] mL/min 28* 33* 26* CREATININE - [facility] mg/dL 1.7* 1.5* 1.8* Lab Results Component Value Date/Time CREATININE - [facility] 1.7 (H) 12/19/2022 01:45 PM CREATININE - [facility] 1.5 (H) 10/24/2022 03:37 PM CREATININE - [facility] 1.8 (H) 10/14/2022 02:15 PM CREATININE, RANDOM URINE - [facility] 35 09/01/2022 01:06 PM CREATININE, RANDOM URINE - [facility] 26 03/31/2022 12:32 PM CREATININE, RANDOM URINE - [facility] 28 08/02/2021 03:14 PM CREATININE-OUTSIDE LAB 1.25 (A) 10/31/2021 12:00 AM CREATININE-OUTSIDE LAB 1.90 (A) 10/31/2021 12:00 AM HYPERTENSION: Patient on ACEi/ARB: yes, lisinopril 20mg daily BP Readings from Last 3 Encounters: 02/19/23 201/82 12/30/22 162/64 11/04/22 166/72 Blood pressure at goal: No Current regimen: Lisinopril 20mg twice daily Verapamil ER 180mg daily Metoprolol Succinate 100mg daily Hydralazine 100mg three times daily Furosemide 20mg once or twice weekly as needed Isordil 30mg 3 times daily Blood Pressure Goal: <140/90 mmHg No results for input(s): MICROALBUMIN in the last 45689 hours. Recent Labs Units 12/19/22 1345 10/24/22 1537 10/14/22 1415 POTASSIUM - [facility] mmol/L 4.4 4.2 4.8 HYPERLIPIDEMIA: Patient is taking moderate or high intensity statin: yes, Atorvastatin 80mg daily HEALTH MAINTENANCE REVIEW: Health Maintenance Due Topic Date Due Pneumococcal Vaccine: 65+ Years (1 - PCV) Never done DTaP,Tdap,and Td Vaccines (1 - Tdap) Never done Zoster Vaccines (1 of 2) Never done COVID-19 Vaccine (5 - Moderna series) 02/12/2022 DIABETES-FOOT EXAM 10/16/2022 ASSESSMENT & PLAN: ICD-10-CM 1. Type 2 diabetes mellitus with hemoglobin A1c goal of less than 8.0% ([facility]) E11.9 BG Readings - Blood sugars uncontrolled. Most elevated BG were due to dietary intake:, ice cream, beer Medications - Reviewed current regimen, patient is adherent to regimen. Diet, Exercise, Lifestyle - No significant lifestyle changes since last visit. Discussed with patient today. Patient is agreeable to SMBG 1 time(s) daily. Patient aware to contact clinic if any hypoglycemia before next visit. MEDICATION CHANGES: no change Diabetic Medications: Lantus 36 units daily Prandin 2mg TID with meals Tradjenta 5mg QD Jardiance 25mg QAM HEALTH MAINTENANCE INTERVENTIONS: Labs: Up to Date Immunizations: needs pneumococcal, tetanus, shingles Foot Exam: needs completed Eye Exam: Up to Date Annual Wellness Visit: Up to Date FOLLOW UP: Return to clinic in 10 weeks 05/04/2023 Pedrito Mclain RPh, CDE Clinical Pharmacist - Equipment Or Machinery Cleaner Medication Therapy Management Clinic 02/20/2023, 1:38 PM documented in this encounter Plan of Treatment Upcoming Encounters Date Type Specialty Care Team Description 04/30/2023 Office Visit Cardiology May Gipson PA-C [address] [place] [address] 04/30/2023 Laboratory [facility] [address] [facility] [place] [address] 05/04/2023 Office Visit Pharmacy Pharmacist1, [facility] [address] [facility] [place] [address] 05/04/2023 Office Visit Internal Medicine Dalila Bauman MD 200 [facility] [place] [address] 05/11/2023 Office Visit Hematology Oncology Joshua Nunez MD [address] [facility] [place] [address] 06/17/2023 Office Visit Cardiology Wiliam Schroeder MD 132 [facility] [place] [address] 09/11/2023 Office Visit Nephrology Cornel Smith MD 200 [place] [address] Health Maintenance Due Date Last Done Comments Pneumococcal Vaccine: 65+ Years (1 - PCV) 02/18/1941 DTaP,Tdap,and Td Vaccines (1 - Tdap) 1954 Zoster Vaccines (1 of 2) 1954 COVID-19 Vaccine (5 - Moderna series) 02/12/2022 12/18/2021, 07/11/2021, 12/11/2020, Additional history exists DIABETES-FOOT EXAM 10/16/2022 10/16/2021 Influenza Vaccine (FLU shot) (#1) 2023 HbA1c 06/20/2023 12/19/2022, 08/07, 04/23/2022, Additional history exists Albumin/Creatinine Ratio 09/01/2023 09/01/2022, 07/07 Depression Screening, Annual for Pts 12 and Over 10/25/2023 10/24/2022 DIABETES-EYE EXAM 12/11/2023 12/10/2022, 05/10/2021 DXA Scan 03/17/2024 03/17/2022 VITAMIN D LEVEL ONCE IN A LIFETIME-USE SMARTSET# [id number] Completed 12/19/2022, 03/25/2022, 11/11/2021, Additional history exists GARDASIL-HPV IMMUNIZATION SERIES Aged Out No longer eligible based on patient's age to complete this topic Hepatitis B Aged Out No longer eligi ble based on patient's age to complete this topic MENINGOCOCCAL (MENACTRA/MENVEO) Aged Out No longer eligible based on patient's age to complete this topic documented as of this encounter Medical Devices Implanted Type Area Program Associate Device Identifier Shelf Expiration Date Model / Serial / Lot Lens Intraoc 25.0 - [id number] - [id number] Implanted:Qty: 1 on 09/03/2021 by Deon Griffin MD at OR [facility] Left: Eye [employer] 10/02/2025 [id number] / [id number] / [id number] Lens Intraoc 26.0 - [id number] - [id number] Implanted:Qty: 1 on 09/17/2021 by Deon Griffin MD at OR [facility] Right: Eye [employer]OM[employer] 10/03/2025 [id number] / [id number] / [id number] documented as of this encounter Visit Diagnoses Diagnosis Type 2 diabetes mellitus with hemoglobin A1c goal of less than 8.0% ([facility])- Primary documented in this encounter Care Teams Nursing Coordinator Relationship Specialty Start Date End Date Dalila Bauman MD [address] [facility] [place] [address] PCP - General Internal Medicine 01/09/21 documented as of this encounter
--- OUTSIDE RECORDS SUMMARY | 2023-08-13 06:48 | External Medical Summary ---
Author Name Unknown Address Unknown Organization K01:[facility] [place] [address] [place] [address] Laboratory Report Ordering Provider Test Date Status KAREN FRAIRE 05/04/2023 16:24:55 [facility] Observation Date Value Abnormality Reference (Units ) Status Vitamin B12 05/04/2023 16:24:55 [id number] (pg/mL) Final Performing Location LABORATORY [facility] - [address] [place] [address]
--- OUTSIDE RECORDS SUMMARY | 2023-08-13 06:48 | External Medical Summary | Summary of Care ---
Author Name Unknown Organization [facility] Address [address] [place] [place] [place] [address] Phone [phone] Care Team Providers Care Supervisor Winding Department Name Role Phone Dalila Bauman MD Primary Care Provider [phone] Reason for Visit * Reason Comments Outpatient Testing Encounter Details Date Type Department Care Team (Late st Contact Info) Description 05/04/2023 2:10 PM EDT Laboratory Laboratory [facility] [place] [address] [place] [address] Pod3, Specimen Drop Off [facility] [address] [place], [place] [id number] MGUS (monoclonal gammopathy of unknown significance) Allergies [...] A1c goal of less than 8.0% ([facility]) Use with Lantus once daily 100 Each 3 09/02/2022 Active Prodigy No Coding Blood Gluc In Vitro Strip (Glucose Blood)Indications:T ype 2 diabetes mellitus with hemoglobin A1c goal of less than 8.0% ([facility]) Use to test blood glucose [...] without long-term current use of insulin ([facility]),HTN, goal below 150/90,History of hypertensive [...] A1c goal of less than 8.0% ([facility]) Use to test blood glucose 3 times daily. DX: E11.9 300 Each 3 10/03/2022 Active Vitamin B-12 1000 MCG Oral Tablet (Cyanocobalamin)Ind ications:Type 2 diabetes mellitus with stage 3b chronic kidney disease, without long-term current use of insulin ([facility]) 1 tab on odd days only, start 06/13/2021--dec 3d/wk 10/18/2021 45 Tablet 3 10/13/2022 Active Verapamil HCl ER 180 MG Oral Tablet Extended Release (Isoptin SR)Indications:HTN, goal below 150/90,Type 2 diabetes mellitus with stage 3b chronic kidney disease, without long-term current use of insulin ([facility]) take 1 tablet by mouth every evening 90 Tablet 1 11/24/2022 Active Tradjenta 5 MG Oral Tablet (linaGLIPtin)Indica tions:Type 2 diabetes mellitus with retinopathy of both eyes, without long-term current use of insulin, macular edema presence unspecified, unspecified retinopathy severity ([facility]) take 1 tablet by mouth daily 90 Tablet 1 11/27/2022 Active CoQ10 200 MG Oral Capsule Take by mouth. 0 Active Jardiance 25 MG Oral Tablet (Empagliflozin)Dora cations:Type 2 diabetes mellitus with hemoglobin A1c goal of less than 8.0% ([facility]),Type 2 diabetes mellitus with stage 3b chronic kidney disease, without long-term current use of insulin ([facility]) take 1 tablet by mouth every morning INCREASE BACK 11/14/21 AND STOP METFORMIN 90 Tablet 1 01/22/2023 Active Repaglinide 2 MG Oral Tablet (Prandin)Indication s:Type 2 diabetes mellitus with hemoglobin A1c goal of less than 8.0% ([facility]) take 1 tablet by mouth three times a day BEFORE MEALS Strength: 2 mg 270 Tablet 3 2023 Active Sertraline HCl 50 MG Oral Tablet (Zoloft) TAKE 1/2 A TABLET BY MOUTH EVERY MORNING 45 Tablet 3 03/02/2023 Active COVID-19 At Home Antigen Test In Vitro KitIndications:Christen allen for screening laboratory testing for COVID-19 virus Use as directed 3 Each 1 03/11/2023 Active Atorvastatin Calcium 80 MG Oral Tablet (Lipitor)Indication s:Renal artery stenosis (HCC),Carotid stenosis, asymptomatic, right,Dyslipidemia, goal LDL below 70 take 1 tablet by mouth at bedtime INCREASE 11/13/2021 90 Tablet 2 04/13/2023 Active documented as of this encounter (statuses [...] Team (Late st Contact Info) Description 05/04/2023 2:30 PM EDT Office Visit Pharmacy, [place] [address] [place] [address] Pharmacist1, [facility] [address] [place] [address] Type 2 diabetes mellitus with hemoglobin A1c goal of less than 8.0% (HCC)* 05/04/2023 3:00 PM EDT Office Visit General Internal Medicine [facility] [address] [facility] [place], [place] [address] Dalila Bauman MD [address] [facility] [place], [place] [address] 05/11/2023 3:30 PM EST Office Visit Hematology/Oncology [facility] [address] [facility] [place] [address] Joshua Nunez MD [address] [facility] [place], [place] [address] 05/25/2023 2:00 PM EST Imaging Vascular Lab, [facility] 2nd [facility] [address] [place] [address] 06/03/2023 1:30 PM EST Office Visit Vascular Surgery, [facility] [address] [place] [address] Francesco Cohen MD [address] [place] [address] 06/17/2023 3:30 PM EST Office Visit Cardiology, [facility] [address] [place] [address] Wiliam Schroeder MD [address] [place] [address] 09/11/2023 4:00 PM EST Office Visit Nephrology, [facility] [address] [facility] [place] [place], [place] [address] Cronel Smith MD [address] [facility] [place], [place] [address] Pending Results Name Type Priority Associated Diagnoses Date /Time URINE IMMUNOFIXATION, BENCE CASILLAS PROTEIN, 24 HOUR URINE Lab Routine MGUS (monoclonal gammopathy of unknown significance) 05/04/2023 2:11 PM EDT Health Maintenance Due Date Last Done Comments Pneumococcal Vaccine: 65+ Years (1 - PCV) 02/18/1941 DTaP,Tdap,and Td Vaccines (1 - Tdap) 1953 Zoster Vaccines (1 of 2) 02/18/1984 Hepatitis B (1 of 3 - Risk 3-dose series) 1994 Diabetic Foot Exam 10/16/2022 10/16/2021 COVID-19 Vaccine ( - season) 2023 12/18/2021, 07/11/2021, 12/11/2020, Additional history exists Influenza Vaccine (FLU shot) (#1) 2023 Albumin/Creatinine Ratio 09/01/2023 09/01/2022, 07/07 Depression Screening 10/25/2023 10/24/2022 HbA1c 10/30/2023 04/30/2023, 12/04, 09/01/2022, Additional history exists Diabetic Eye Exam 12/11/2023 12/10/2022, 05/10/2021 DXA Scan 03/17/2024 03/17/2022 VITAMIN D LEVEL ONCE IN A LIFETIME-USE SMARTSET# [id number] Completed 12/19/2022, 03/25/2022, 11/11/2021, Additional history exists GARDASIL-HPV IMMUNIZATION SERIES Aged Out No longer eligible based on patient's age to complete this topic MENINGOCOCCAL (MENACTRA/MENVEO) Aged Out No longer eligible based on patient's age to complete this topic documented as of this encounter Medical Devices Implanted Type Area Tube Balancer Device Identifier Shelf Expiration Date Model / Serial / Lot Lens Intraoc 25.0 - [id number] - [id number] Implanted:Qty: 1 on 09/03/2021 by Deon Griffin MD at OR [facility] Left: Eye [employer] 10/02/2025 [id number] / [id number] / [id number] Lens Intraoc 26.0 - [id number] - [id number] Implanted:Qty: 1 on 09/17/2021 by Deon Griffin MD at OR [facility] Right: Eye [employer] LOMB 10/03/2025 [id number] / [id number] / [id number] documented as of this encounter Visit Diagnoses Diagnosis Type 2 diabetes mellitus with hemoglobin A1c goal of less than 8.0% (HCC)- Primary MGUS (monoclonal gammopathy of unknown significance) Monoclonal paraproteinemia documented in this encounter Care Teams Supervisor Winding Department Relationship Specialty Start Date End Date Dalila Bauman MD [address] [facility] [place] [address] PCP - General Internal Medicine 01/09/21 documented as of this encounter
--- OUTSIDE RECORDS SUMMARY | 2023-08-13 06:48 | External Medical Summary | Summary of Care ---
Author Name Unknown Organization [facility] Address [address] [place] [address] Phone [phone] Care Team Providers Care Client Customer Manager Name Role Phone Dalila Bauman MD Primary Care Provider [phone] Reason for Visit * Reason Comments Outpatient Testing Encounter Details Date Type Department Care Team (Late st Contact Info) Description 04/30/2023 12:10 PM EDT Laboratory Laboratory, [facility] [address] [place] [address] [facility] [address] [place] [address] Arrived Allergies Active Allergy Reactions Criticality Noted Date Comments Latex 01/09/2021 Penicillins 01/09/2021 Sulfa Antibiotics 01/09/2021 documented as of this encounter (statuses as of 04/30/2023) Medications Medication Sig Dispensed Refills Start Date [...] A1c goal of less than 8.0% ([facility]) Use with Lantus once daily 100 Each 3 09/02/2022 Active Prodigy No Coding Blood Gluc In Vitro Strip (Glucose Blood)Indications:T ype 2 diabetes mellitus with hemoglobin A1c goal of less than 8.0% ([facility]) Use to test blood glucose [...] without long-term current use of insulin ([facility]),HTN, goal below 150/90,Bilateral leg edema Take 1 to 2 tablets per week. 45 Tablet 3 09/24/2022 Active Lisinopril 20 MG Oral Tablet (Prinivil)Indicatio ns:Type 2 diabetes mellitus with stage 3b chronic kidney disease, without long-term current use of insulin ([facility]),HTN, goal below 150/90,History of hypertensive [...] A1c goal of less than 8.0% ([facility]) Use to test blood glucose 3 times daily. DX: E11.9 300 Each 3 10/03/2022 Active Vitamin B-12 1000 MCG Oral Tablet (Cyanocobalamin)Ind ications:Type 2 diabetes mellitus with stage 3b chronic kidney disease, without long-term current use of insulin ([facility]) 1 tab on odd days only, start 06/13/2021--dec 3d/wk 10/18/2021 45 Tablet 3 10/13/2022 Active Verapamil HCl ER 180 MG Oral Tablet Extended Release (Isoptin SR)Indications:HTN, goal below 150/90,Type 2 diabetes mellitus with stage 3b chronic kidney disease, without long-term current use of insulin ([facility]) take 1 tablet by mouth every evening 90 Tablet 1 11/24/2022 Active Tradjenta 5 MG Oral Tablet (linaGLIPtin)Indica tions:Type 2 diabetes mellitus with retinopathy of both eyes, without long-term current use of insulin, macular edema presence unspecified, unspecified retinopathy severity ([facility]) take 1 tablet by mouth daily 90 Tablet 1 11/27/2022 Active CoQ10 200 MG Oral Capsule Take by mouth. 0 Active Jardiance 25 MG Oral Tablet (Empagliflozin)Dora cations:Type 2 diabetes mellitus with hemoglobin A1c goal of less than 8.0% ([facility]),Type 2 diabetes mellitus with stage 3b chronic kidney disease, without long-term current use of insulin ([facility]) take 1 tablet by mouth every morning INCREASE BACK 11/14/21 AND STOP METFORMIN 90 Tablet 1 01/22/2023 Active Repaglinide 2 MG Oral Tablet (Prandin)Indication s:Type 2 diabetes mellitus with hemoglobin A1c goal of less than 8.0% ([facility]) take 1 tablet by mouth [...] as of this encounter (statuses as of 04/30/2023) Active Problems Problem Noted Date Diagnosed Date [...] as of this encounter (statuses as of 04/30/2023) Resolved Problems Problem Noted Date Diagnosed Date Resolved Date Type 2 diabetes mellitus wit h stage 3b chronic kidney disease, without long-term current use of insulin 07/26/2021 03/20/2022 Overview: Per CKD protocol documented as of this encounter (statuses as of 04/30/2023) Immunizations Name Administration Dates Next Due COVID-19 [...] State Amanda [place] [address] [place] [address] [address] Pharmacist1, [facility] [address] [place] [address] [address] 05/04/2023 3:00 PM EDT Office Visit General Internal Medicine [facility] [address] [facility] [place] [address] Dalila Bauman MD [address] [facility] [place] [address] 05/11/2023 3:30 PM EST Office Visit Hematology/Oncology [facility] [address] [facility] [place] [address] Joshua Nunez MD [address] [facility] [place], [place] [address] 05/25/2023 2:00 PM EST [facility] [address] [place] [address] 06/03/2023 1:30 PM EST Office Visit Vascular Surgery, [facility] [address] [place] [address] Francesco Cohen MD [address] [place] [address] 06/17/2023 3:30 PM EST Office Visit Cardiology, [facility] [address] [place] [address] Wiliam Schroeder MD [address] [place] [address] 09/11/2023 4:00 PM EST Office Visit Nephrology, [facility] [address] [facility] [place], [place] [address] Cornel Smith MD [address] [facility] [place], [place] [address] Health Maintenance Due Date Last Done Comments Pneumococcal Vaccine: 65+ Years (1 - PCV) 02/18/1941 DTaP,Tdap,and Td Vaccines (1 - Tdap) 1953 Zoster Vaccines (1 of 2) 02/18/1984 Hepatitis B (1 of 3 - Risk 3-dose series) 1994 Diabetic Foot Exam 10/16/2022 10/16/2021 COVID-19 Vaccine ( season) 2023 12/18/2021, 07/11/2021, 12/11/2020, Additional history exists Influenza Vaccine (FLU shot) (#1) 2023 HbA1c 06/20/2023 12/19/2022, 08/07, 04/23/2022, Additional history exists Albumin/Creatinine Ratio 09/01/2023 09/01/2022, 07/07 Depression Screening 10/25/2023 10/24/2022 DIABETES-EYE EXAM 12/11/2023 12/10/2022, 05/10/2021 DXA Scan 03/17/2024 03/17/2022 VITAMIN D LEVEL ONCE IN A LIFETIME-USE SMARTSET# [id number] Completed 12/19/2022, 03/25/2022, 11/11/2021, Additional history exists GARDASIL-HPV IMMUNIZATION SERIES Aged Out No longer eligible based on patient's age to complete this topic MENINGOCOCCAL (MENACTRA/MENVEO) Aged Out No longer eligible based on patient's age to complete this topic documented as of this encounter Medical Devices Implanted Type Area Cigar Maker Device Identifier Shelf Expiration Date Model / Serial / Lot Lens Intraoc 25.0 - [id number] - [id number] Implanted:Qty: 1 on 09/03/2021 by Deon Griffin MD at OR [facility] Left: Eye [employer]OM[employer] 10/02/2025 [id number] / [id number] / [id number] Lens Intraoc 26.0 - [id number] - [id number] Implanted:Qty: 1 on 09/17/2021 by Deon Griffin MD at OR [facility] Right: Eye BAUSCH [employer] LOMB 10/03/2025 [id number] / [id number] / [id number] documented as of this encounter Care Teams Client Customer Manager Relationship Specialty Start Date End Date Dalila Bauman MD [address] [facility] [place] [address] PCP - General Internal Medicine 01/09/21 documented as of this encounter
--- OUTSIDE RECORDS SUMMARY | 2023-08-13 06:48 | External Medical Summary | Summary of Care ---
Author Name Unknown Organization [facility] Address [address] [place] [address] Phone [phone] Care Team Providers Care Soil Fertility Specialist Name Role Phone Dalila Bauman MD Primary Care Provider [phone] Reason for Visit * Reason Comments eRx-Medication Refill Encounter Details Date Type Department Care Team Description 03/01/2023 Refill General Internal Medicine [facility] [place] [facility] [address] Dalila Bauman MD [address] [place] [address] Allergies Active Allergy Reactions Severity Noted Date Comments Latex 01/09/2021 Penicillins 01/09/2021 Sulfa Antibiotics 01/09/2021 documented as of this encounter (statuses as of 03/02/2023) Medications Medication Sig Dispensed Refills Start Date [...] hemoglobin A1c goal of less than 8.0% ([facility]) Use as directed every 14 days . [...] Tablets daily . [facility] 0 Active Atorvastatin Calcium 80 MG Oral Tablet [...] hemoglobin A1c goal of less than 8.0% ([facility]) Use with Lantus once daily 100 Each 3 09/02/2022 Active Prodigy No Coding Blood Gluc In Vitro Strip (Glucose Blood)Indications :Type 2 diabetes mellitus with hemoglobin A1c goal of less than 8.0% ([facility]) Use to test blood glucose [...] disease, without long-term current use of insulin ([facility]),HTN, goal below 150/90,Bilateral leg edema Take 1 to 2 tablets per week. 45 Tablet 3 09/24/2022 Active Lisinopril 20 MG Oral Tablet (Prinivil)Indicat ions:Type 2 diabetes mellitus with stage 3b chronic kidney disease, without long-term current use of insulin ([facility]),HTN, goal below 150/90,History of hypertensive [...] hemoglobin A1c goal of less than 8.0% ([facility]) Use to test blood glucose 3 times daily. DX: E11.9 300 Each 3 10/03/2022 Active Vitamin B-12 1000 MCG Oral Tablet (Cyanocobalamin)I ndications:Type 2 diabetes mellitus with stage 3b chronic kidney disease, without long-term current use of insulin ([facility]) 1 tab on odd days only, start 06/13/2021--dec 3d/wk 10/18/2021 45 Tablet 3 10/13/2022 Active Verapamil HCl ER 180 MG Oral Tablet Extended Release (Isoptin SR)Indications:HT N, goal below 150/90,Type 2 diabetes mellitus with stage 3b chronic kidney disease, without long-term current use of insulin ([facility]) take 1 tablet by mouth every evening 90 Tablet 1 11/24/2022 Active Tradjenta 5 MG Oral Tablet (linaGLIPtin)Dora cations:Type 2 diabetes mellitus with retinopathy of both eyes, without long-term current use of insulin, macular edema presence unspecified, unspecified retinopathy severity ([facility]) take 1 tablet by mouth [...] 01/02/2023 Active Jardiance 25 MG Oral Tablet (Empagliflozin)In [...] EVERY MORNING 45 Tablet 3 03/02/2023 Active Sertraline HCl 50 MG Oral Tablet (Zoloft) TAKE 1/2 A TABLET BY MOUTH EVERY MORNING 45 Tablet 3 03/26/2022 03/02/20 23 Discontinued documented as of this encounter (statuses as of 03/02/2023) Active Problems Problem Noted Date MGUS (monoclonal [...] 07/26/2021 Dyslipidemia, goal LDL below 70 07/26/19 22 Adjustment disorder with anxious mood B12 deficiency 07/26/2021 Type 2 diabetes mellitus with hemoglobin A1c goal of less than 8.0% 07/02/2021 documented as of this encounter (statuses as of 03/02/2023) Resolved Problems Problem Noted Date Resolved Date Type 2 diabetes mellitus wit h stage 3b chronic kidney disease, without long-term current use of insulin 07/26/202103/06 Overview: Per CKD protocol documented as of this encounter (statuses as of 03/02/2023) Immunizations Name Administration Dates Next Due COVID-19 [...] encounter Miscellaneous Notes * Telephone Encounter - Romario Jay [facility] - 03/02/2023 10:46 AM EDT Signed Prescriptions: Disp Refills Sertraline HCl 50 MG Oral Tablet (Zoloft) 45 Tab*3 Sig: TAKE 1/2 A TABLET BY MOUTH EVERY MORNINGAuthorizing Provider: Luana BAUMAN User: ROMARIO JAY SE documented in this encounter Plan of Treatment Upcoming Encounters Date Type Specialty Care Team Description 04/30/2023 Office Visit Cardiology May Gipson PA-C [address] [place] [address] 04/30/[address] [facility] Christen [address] [facility] [place] [address] 05/04/2023 Office Visit Pharmacy Pharmacist1, [facility] [address] [facility] [place] [address] 05/04/2023 Office Visit Internal Medicine Dalila Bauman MD [address] [place] [address] 05/11/2023 Office Visit Hematology Oncology Joshua Nunez MD [address] [place] [address] 05/25/2023 Imaging Radiology 06/03/2023 Office Visit Vascular Surgery Francesco Cohen MD [address] [place] [address] 06/17/2023 Office Visit Cardiology Wiliam Schroeder MD [address] [place] [address] 09/11/2023 Office Visit Nephrology Cornel Smith MD [address] [place] [address] Health Maintenance Due Date Last Done Comments [...] D LEVEL ONCE IN A LIFETIME-USE SMARTSET# [id number] Completed 12/19/2022, 03/25/2022, 11/11/2021, Additional history exists [...] this encounter Medical Devices Implanted Type Area [employer] Assistant Principal Device Identifier Shelf Expiration Date Model / Serial / Lot Lens Intraoc 25.0 - [id number] - [id number] Implanted:Qty: 1 on 09/03/2021 by Deon Griffin MD at OR [facility] Left: Eye [employer] LOMB 10/02/2025 [id number] / [id number] / [id number] Lens Intraoc 26.0 - [id number] - [id number] Implanted:Qty: 1 on 09/17/2021 by Deon Griffin MD at OR [facility] Right: Eye [employer]CH [employer] LOMB 10/03/2025 [id number] / [id number] / [id number] documented as of this encounter Care Teams Soil Fertility Specialist Relationship Specialty Start Date End Date Dalila Bauman MD [address] [place] [address] PCP - General Internal Medicine 01/09/21 documented as of this encounter
--- OUTSIDE RECORDS SUMMARY | 2023-08-13 06:48 | External Medical Summary ---
Author Name Unknown Address Unknown Organization [id number]:[facility] - [address] [facility] [place] [address] Laboratory Report Ordering Provider Test Date Status SHADI FELIX 05/04/2023 16:24:55 Final Observation Date Value Abnormality Reference (Units ) Status BUN 05/04/2023 16:24:55 33 Above high normal 6-20 (mg/dL) Final Creatinine 05/04/2023 16:24:55 1.7 Above high normal 0.5-1.0 (mg/dL) Final Glomerular filtration rate/1.73 sq M.predicted [Volume Rate/Area] in Serum, Plasma or Blood by Creatinine-based formula (CKD-EPI) 05/04/2023 16:24:55 28 Below low normal >=60 (mL/min) Final eGFR is calculated based on the CKD-EPI 2020 equation SODIUM 05/04/2023 16:24:55 137 135-146 (m mol/L) Final Potassium 05/04/2023 16:24:55 4.0 3.5-5.1 (m mol/L) Final Cl 05/04/2023 16:24:55 101 98-107 (mm ol/L) Final CO2 05/04/2023 16:24:55 22 22-32 (mmo l/L) Final Anion gap 05/04/2023 16:24:55 14 7-15 (mmol /L) Final Glucose 05/04/2023 16:24:55 93 70-120 (mg /dL) Final Albumin 05/04/2023 16:24:55 4.3 3.8-5.0 (g /dL) Final AST (Aspartate aminotransferase) 05/04/2023 16:24:55 28 10-35 (U/L) Final Alk Phos 05/04/2023 16:24:55 42 35-130 (U/ L) Final Bilirubin, Total 05/04/2023 16:24:55 0.3 <=1 .2 (mg/dL) Final Calcium 05/04/2023 16:24:55 9.9 8.4-10.2 ( mg/dL) Final Protein 05/04/2023 16:24:55 7.3 6.0-8.3 (g /dL) Final ALT (Alanine aminotransferase) 05/04/2023 16:24:55 30 10-35 (U/L) Final Performing Location [facility] [place] [facility] [address] [facility] [address]
--- OUTSIDE RECORDS SUMMARY | 2023-08-13 06:48 | External Medical Summary ---
Author Name Unknown Address Unknown Organization [id number]:[facility]ATORY [facility] [place] - [address] [facility] [address] [place] [address] Laboratory Report Ordering Provider Test Date Status SHADI FELIX 05/04/2023 16:24:55 Final Observation Date Value Abnormality Reference (Units ) Status IgG 05/04/2023 16:24:55 3390 [id number] ( mg/dL) Final IgA 05/04/2023 16:24:55 130 70-400 (mg /dL) Final IgM 05/04/2023 16:24:55 25 Below low normal 40- 230 (mg/dL) Final Performing Location [facility] - [address] [place] [address]
--- OUTSIDE RECORDS SUMMARY | 2023-08-13 06:48 | External Medical Summary | Summary of Care ---
Author Name Unknown Organization [facility] Address [address] [place] [address] Phone [phone] Care Team Providers Care Sales And Support Center Agent Name Role Phone Dalila Bauman MD Primary Care Provider [phone] Reason for Visit * Reason Comments eRx-Medication Refill Encounter Details Date Type Department Care Team Description 04/11/2023 Refill General Internal Medicine [facility] Lisa [place] [address] [place] [address] Dalila Bauman MD 200 [place] [address] Renal artery stenosis (HCC); Carotid stenosis, asymptomatic, right; Dyslipidemia, goal LDL below 70 Allergies Active Allergy Reactions Severity Noted Date Comments Latex 01/09/2021 Penicillins 01/09/2021 Sulfa Antibiotics 01/09/2021 documented as of this encounter (statuses as of 04/13/2023) Medications Medication Sig Dispensed Refills Start Date [...] Information Patient taking differently:1,000 mg OralBID (.AM/PM), (No PRN reasons reported), STOP ibuprofen 09/13/2021, [...] hemoglobin A1c goal of less than 8.0% ([facility]) Use with Lantus once daily 100 Each 3 09/02/2022 Active Prodigy No Coding Blood Gluc In Vitro Strip (Glucose Blood)Indications :Type 2 diabetes mellitus with hemoglobin A1c goal of less than 8.0% ([facility]) Use to test blood glucose 3 [...] disease, without long-term current use of insulin ([facility]),HTN, goal below 150/90,Bilateral leg edema Take 1 to 2 tablets per week. 45 Tablet 3 09/24/2022 Active Lisinopril 20 MG Oral Tablet (Prinivil)Indicat ions:Type 2 diabetes mellitus with stage 3b chronic kidney disease, without long-term current use of insulin ([facility]),HTN, goal below 150/90,History of hypertensive crisis [...] hemoglobin A1c goal of less than 8.0% ([facility]) Use to test blood glucose 3 times daily. DX: E11.9 300 Each 3 10/03/2022 Active Vitamin B-12 1000 MCG Oral Tablet (Cyanocobalamin)I ndications:Type 2 diabetes mellitus with stage 3b chronic kidney disease, without long-term current use of insulin ([facility]) 1 tab on odd days only, start 06/13/2021--dec 3d/wk 10/18/2021 45 Tablet 3 10/13/2022 Active Verapamil HCl ER 180 MG Oral Tablet Extended Release (Isoptin SR)Indications:HT N, goal below 150/90,Type 2 diabetes mellitus with stage 3b chronic kidney disease, without long-term current use of insulin ([facility]) take 1 tablet by mouth every evening 90 Tablet 1 11/24/2022 Active Tradjenta 5 MG Oral Tablet (linaGLIPtin)Dora cations:Type 2 diabetes mellitus with retinopathy of both eyes, without long-term current use of insulin, macular edema presence unspecified, unspecified retinopathy severity ([facility]) take 1 tablet by mouth daily 90 [...] hemoglobin A1c goal of less than 8.0% ([facility]),Type 2 diabetes mellitus with stage 3b [...] INCREASE 11/13/2021 90 Tablet 2 04/13/2023 Active Atorvastatin Calcium 80 MG Oral Tablet (Lipitor)Indicati ons:Renal artery stenosis (HCC),Carotid stenosis, asymptomatic, right,Dyslipidemi a, goal LDL below 70 take 1 tablet by mouth at bedtime INCREASE 11/13/2021 90 Tablet 3 05/06/2022 04/13/20 23 Discontinued documented as of this encounter (statuses as of 04/13/2023) Active Problems Problem Noted Date MGUS (monoclonal [...] as of this encounter (statuses as of 04/13/2023) Resolved Problems Problem Noted Date Resolved Date Type 2 diabetes mellitus wit h stage 3b chronic kidney disease, without long-term current use of insulin 07/26/202103/06 Overview: Per CKD protocol documented as of this encounter (statuses as of 04/13/2023) Immunizations Name Administration Dates Next Due COVID-19 [...] encounter Miscellaneous Notes * Telephone Encounter - Mago Valdovinos [facility] - 04/13/2023 8:34 AM EDTSigned Prescriptions: Disp Refills Atorvastatin Calcium 80 MG Oral Tablet (Li*90 Tab*2 Sig: take 1tablet by mouth at bedtime INCREASE 11/13/2021uthorizing Provider: Luana BAUMAN User: MAGO VALDOVINOS documented in this encounter Plan of Treatment Upcoming Encounters Date Type Specialty Care Team Description 04/30/2023 Office Visit Cardiology May Gipson PA-C [address] [place] [address] 04/30/2023 Laboratory Laboratory [place], Lab [place] [address] [place] [address] 05/04/2023 Office Visit Pharmacy Pharmacist1, [facility] [address] [place] [address] 05/04/2023 Office Visit Internal Medicine Dalila Bauman MD 200 [facility] [place] [address] 05/11/2023 Office Visit Hematology Oncology Joshua Nunez MD 200 [facility] [place] [address] 05/25/2023 Imaging Radiology 06/03/2023 Office Visit Vascular Surgery Francesco Cohen MD [address] [place] [address] 06/17/2023 Office Visit Cardiology Wiliam Schroeder MD [address] [place] [address] 09/11/2023 Office Visit Nephrology Cornel Smith MD [address] [place] [address] Health Maintenance Due Date Last Done Comments Pneumococcal Vaccine: 65+ Years (1 - PCV) 02/18/1941 DTaP,Tdap,and Td Vaccines (1 - Tdap) 1954 Zoster Vaccines (1 of 2) 1954 Diabetic Foot Exam 10/16/2022 10/16/2021 COVID-19 Vaccine (5 - 2022- season) 2023 12/18/2021, 07/11/2021, 12/11/2020, Additional history exists Influenza Vaccine (FLU shot) (#1) 2023 HbA1c 06/20/2023 12/19/2022, 08/07, 04/23/2022, Additional history exists Albumin/Creatinine Ratio 09/01/2023 09/01/2022, 07/07 Depression Screening 10/25/2023 10/24/2022 DIABETES-EYE EXAM 12/11/2023 12/10/2022, 05/10/2021 DXA Scan 03/17/2024 03/17/2022 VITAMIN D LEVEL ONCE IN A LIFETIME-USE SMARTSET# [id number] Completed 12/19/2022, 03/25/2022, 11/11/2021, Additional history exists [...] this encounter Medical Devices Implanted Type Area Department Store General Manager Device Identifier Shelf Expiration Date Model / Serial / Lot Lens Intraoc 25.0 - [id number] - [id number] Implanted:Qty: 1 on 09/03/2021 by Deon Griffin MD at OR [facility] Left: Eye [employer] 10/02/2025 [id number] / [id number] Lens Intraoc 26.0 - [id number] - [id number] Implanted:Qty: 1 on 09/17/2021 by Deon Griffin MD at OR [facility] Right: Eye [employer] 10/03/2025 [id number] / [id number] / [id number] documented as of this encounter Visit Diagnoses Diagnosis Renal artery stenosis (HCC) Atherosclerosis of renal artery Carotid stenosis, asymptomatic, right Dyslipidemia, goal LDL below 70 Other and unspecified hyperlipidemia documented in this encounter Care Teams Sales And Support Center Agent Relationship Specialty Start Date End Date Dalila Bauman MD [address] [place] [address], [place] [address] PCP - General Internal Medicine 01/09/21 documented as of this encounter
--- OUTSIDE RECORDS SUMMARY | 2023-08-13 06:48 | External Medical Summary ---
Author Name Unknown Address Unknown Organization [id number]:[facility] [place] - [address] [place] [address] Laboratory Report Ordering Provider Test Date Status KAREN FRAIRE 04/30/2023 11:43:30 Final Observation Date Value Abnormality Reference (Units ) Status LDL, (direct) 04/30/2023 11:43:30 63 <=129 (mg/dL) Final LDL Cholesterol Reference Ra nges (mg/dL):
<70 Target level for high risk ASCVD patient
<100 Optimal for general population
100-129 Near optimal for general population
130-159 Borderline high
160-189 High
>=190 Very high Performing Location [facility] - [address] [place] [address]
--- OUTSIDE RECORDS SUMMARY | 2023-08-13 06:48 | External Medical Summary ---
Author Name Unknown Address Unknown Organization [id number]:[facility] [place] - [address] [facility] [address] Laboratory Report Ordering Provider Test Date Status SHADI FELIX 05/04/2023 16:24:55 Final Observation Date Value Abnormality Reference (Units) Status Protein 05/04/2023 16:24:55 7.3 6.0-8.3 (g/dL) Final Albumin/Protein.total [Pure mass fraction] in Serum or Plasma by Electrophoresis 05/04/2023 16:24:55 3.57 3.30-4.40 (g/dL) Final Alpha 1 globulin/Protein.tota l [Pure mass fraction] in Serum or Plasma by Electrophoresis 05/04/2023 16:24:55 0.26 0.10-0.30 (g/dL) Final Alpha 2 globulin/Protein.tota l [Pure mass fraction] in Serum or Plasma by Electrophoresis 05/04/2023 16:24:55 1.10 Above high normal 0.60-1.00 (g/dL) Final Beta globulin/Protein.tota l [Pure mass fraction] in Serum or Plasma by Electrophoresis 05/04/2023 16:24:55 0.86 0.80-1.30 (g/dL) Final Gamma globulin/Protein.tota l [Pure mass fraction] in Serum or Plasma by Electrophoresis 05/04/2023 16:24:55 1.51 0.70-1.70 (g/dL) Final Monoclonal protein 05/04/2023 16:24:55 1.11 (g/dL) Final Protein Fractions [Interpretation] in Serum or Plasma by Electrophoresis Narrative 05/04/2023 16:24:55 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 Final Performing Location LABORATORY C - [address] [facility] [address]
--- OUTSIDE RECORDS SUMMARY | 2023-08-13 06:48 | External Medical Summary | Summary of Care ---
Author Name Unknown Organization [facility] Address [address] [facility] [address] Phone [phone] Care Team Providers Care Email Marketing Specialist Name Role Phone Dalila Bauman MD Primary Care Provider [phone] Reason for Visit * Reason Onset Date Comments Advice 03/11/2023 Encounter Details Date Type Department Care Team Description 03/11/2023 Telephone General Internal Medicine [facility] [place] [address] [facility] [place] [address] Dalila Bauman MD [address] [facility] [address] Advice Allergies Active Allergy Reactions Severity Noted Date Comments Latex 01/09/2021 Penicillins 01/09/2021 Sulfa Antibiotics 01/09/2021 documented as of this encounter (statuses as of 03/11/2023) Medications Medication Sig Dispensed Refills Start Date [...] goal of less than 8.0% ([facility]) Use with Lantus once daily 100 Each 3 09/02/2022 Active Prodigy No Coding Blood Gluc In Vitro Strip (Glucose Blood)Indications:T ype 2 diabetes mellitus with hemoglobin A1c goal of less than 8.0% ([facility]) Use to test blood glucose 3 times [...] long-term current use of insulin ([facility]),HTN, goal below 150/90,Bilateral leg edema Take 1 to 2 tablets per week. 45 Tablet 3 09/24/2022 Active Lisinopril 20 MG Oral Tablet (Prinivil)Indicatio ns:Type 2 diabetes mellitus with stage 3b chronic kidney disease, without long-term current use of insulin ([facility]),HTN, goal below 150/90,History of hypertensive crisis Take [...] goal of less than 8.0% ([facility]) Use to test blood glucose 3 times daily. DX: E11.9 300 Each 3 10/03/2022 Active Vitamin B-12 1000 MCG Oral Tablet (Cyanocobalamin)Ind ications:Type 2 diabetes mellitus with stage 3b chronic kidney disease, without long-term current use of insulin ([facility]) 1 tab on odd days only, start 06/13/2021--dec 3d/wk 10/18/2021 45 Tablet 3 10/13/2022 Active Verapamil HCl ER 180 MG Oral Tablet Extended Release (Isoptin SR)Indications:HTN, goal below 150/90,Type 2 diabetes mellitus with stage 3b chronic kidney disease, without long-term current use of insulin ([facility]) take 1 tablet by mouth every evening 90 Tablet 1 11/24/2022 Active Tradjenta 5 MG Oral Tablet (linaGLIPtin)Indica tions:Type 2 diabetes mellitus with retinopathy of both eyes, without long-term current use of insulin, macular edema presence unspecified, unspecified retinopathy severity ([facility]) take 1 tablet by mouth daily 90 [...] COVID-19 At Home Antigen Test In Vitro KitIndications:Harinio tiffany for screening laboratory testing for COVID-19 virus Use as directed 3 Each 1 03/11/2023 Active documented as of this encounter (statuses as of 03/11/2023) Active Problems Problem Noted Date MGUS (monoclonal [...] as of this encounter (statuses as of 03/11/2023) Resolved Problems Problem Noted Date Resolved Date Type 2 diabetes mellitus wit h stage 3b chronic kidney disease, without long-term current use of insulin 07/26/202103/06 Overview: Per CKD protocol documented as of this encounter (statuses as of 03/11/2023) Immunizations Name Administration Dates Next Due COVID-19 [...] encounter Miscellaneous Notes * Telephone Encounter - Cally Hill LPN - 03/11/2023 2:14 PM EDT Provider to address: n/a Reason for Call: Advice Contact: Telephone Call Contact Type: Follow-up Outcome: Patient returned call. Informed of message. Verbalized understanding. Total Time including non face to face (minutes): 5 * Telephone Encounter - Nola Gregg CMA - 03/11/2023 1:00 PM EDT Called, left message for patient to return call. * Telephone Encounter - Dalila Bauman MD - 03/11/2023 10:52 AM EDT Last booster was in December 2021. New covid booster vaccine is said to be release mid March per CDC, can wait till then or get current bivalent vaccine now; Follow masking guidelines when she is outside, she can buy [id number] COVID vaccine kits, prescription sent * Telephone Encounter - Bernie Carlos LPN - 03/11/2023 9:27 AM EDT Provider to address: Patient lives in an apartment complex with 56 occupants. She stated that there are 7 people with COVID, one was hospitalized. She stated that across the garcia and both sides of her are among the infected with COVID. She took a test on Thursday that came back Negative but the test had an expiration date of November of 2022. She stated that she had her Initial vaccines and Booster She is asking for advice on how to stay healthy and if she should get more tests that are not . Please advise. Reason for Call: Advice Contact: Telephone Call Contact Type: Information Total Time including non face to face (minutes): 5 documented in this encounter Plan of Treatment Upcoming Encounters Date Type Specialty Care Team Description 04/30/2023 Office Visit Cardiology May Gipson PA-C 132 [facility] [place] [address] 04/30/2023 Laboratory Laboratory [place], Lab [facility] [address] [place] [address] 05/04/2023 Office Visit Pharmacy Pharmacist1, [facility] [address] [place] [address] 05/04/2023 Office Visit Internal Medicine Dalila Bauman MD 200 [place] [address] 05/11/2023 Office Visit Hematology Oncology Joshua Nunez MD 200 [place] [address] 05/25/2023 Imaging Radiology 06/03/2023 Office Visit Vascular Surgery Francesco Cohen MD [address] [place], [place] [address] 06/17/2023 Office Visit Cardiology Wiliam Schroeder MD [address] [place] [address] 09/11/2023 Office Visit Nephrology Cornel Smith MD 200 [place] [address] Health Maintenance Due Date Last Done Comments Pneumococcal Vaccine: 65+ Years (1 - PCV) 02/18/1941 DTaP,Tdap,and Td Vaccines (1 - Tdap) 1954 Zoster Vaccines (1 of 2) 1954 COVID-19 Vaccine (5 - Moderna series) 02/12/2022 12/18/2021, 07/11/2021, 12/11/2020, Additional history exists Diabetic Foot Exam 10/16/2022 10/16/2021 Influenza Vaccine (FLU shot) (#1) 2023 HbA1c 06/20/2023 12/19/2022, 02/2 01/2023, 04/23/2022, Additional history exists Albumin/Creatinine Ratio 09/01/2023 09/01/2022, 07/07 Depression Screening, Annual for Pts 12 and Over 10/25/2023 10/24/2022 DIABETES-EYE EXAM 12/11/2023 12/10/2022, 05/10/2021 DXA Scan 03/17/2024 03/17/2022 VITAMIN D LEVEL ONCE IN A LIFETIME-USE SMARTSET# [id number] Completed 12/19/2022, 03/25/2022, 11/11/2021, Additional history exists [...] this encounter Medical Devices Implanted Type Area Singing Telegram Performer Device Identifier Shelf Expiration Date Model / Serial / Lot Lens Intraoc 25.0 - [id number] - [id number] Implanted:Qty: 1 on 09/03/2021 by Deon Griffin MD at OR [facility] Left: Eye [employer] 10/02/2025 [id number] / [id number] / [id number] Lens Intraoc 26.0 - [id number] - [id number] Implanted:Qty: 1 on 09/17/2021 by Deon Griffin MD at OR [facility] Right: Eye [employer] 10/03/2025 [id number] / [id number] / [id number] documented as of this encounter Visit Diagnoses Diagnosis Encounter for screening laboratory testing for COVID-19 virus- Primary documented in this encounter Care Teams Email Marketing Specialist Relationship Specialty Start Date End Date Dalila Bauman MD [address] [place] [address], [place] [address] PCP - General Internal Medicine 01/09/21 documented as of this encounter
--- OUTSIDE RECORDS SUMMARY | 2023-08-13 06:48 | External Medical Summary ---
Author Name Unknown Address Unknown Organization K01:[facility] [place] [address] [facility] [address] Laboratory Report Ordering Provider Test Date Status KAREN FRAIRE 04/30/2023 11:43:30 Final Observation Date Value Abnormality Reference (Units ) Status HbA1C 04/30/2023 11:43:30 6.1 Above high normal 4. 0-5.6 (%) Final The use of HbA1c to monitor glycemic status is based on normal hemoglobin and HbA composition. This test should not be used in patients with abnormal hemoglobin that affects the half life of the red blood cell or the in vivo glycation rates. Glucose, estimated average 04/30/2023 11:43:30 128 Above high normal <126 (mg/dL) Agustin starks Performing Location [facility] [address] [place] [place] [address]
--- OUTSIDE RECORDS SUMMARY | 2023-08-13 06:48 | External Medical Summary | Summary of Care ---
Author Name Unknown Organization [facility] Address [address] [place] [address] Phone [phone] Care Team Providers Care Section Chief Name Role Phone aDlila Bauman MD Primary Care Provider [phone] Encounter Details Date Type Department Care Team Description 02/24/2023 Orders Only Outcomes Research Department [address] [place] [address] Cindy Webber CHRA [employer] Research Other*[id number] Allergies Active Allergy Reactions Severity Noted Date Comments Latex 01/09/2021 Penicillins 01/09/2021 Sulfa Antibiotics 01/09/2021 documented as of this encounter (statuses as of 02/24/2023) Medications Medication Sig Dispensed Refills Start Date End Date Status Aspirin EC 81 MG Oral Tablet Delayed ReleaseIndications: Type 2 diabetes mellitus with retinopathy of both eyes, without long-term current use of insulin, macular edema presence unspecified, unspecified retinopathy severity (HCC),Dyslipidemia, goal LDL below 100 Take 1 Tablet by mouth in the morning. 100 Tab 3 01/09/2021 Active ProdThe Ratnakar Banky Voice Blood Glucose w/Device KitIndications:Type 2 diabetes [...] goal of less than 8.0% ([facility]) Use with Lantus once daily 100 Each 3 09/02/2022 Active Prodigy No Coding Blood Gluc In Vitro Strip (Glucose Blood)Indications:T ype 2 diabetes mellitus with hemoglobin A1c goal of less than 8.0% ([facility]) Use to test blood glucose 3 times [...] long-term current use of insulin ([facility]),HTN, goal below 150/90,Bilateral leg edema Take 1 to 2 tablets per week. 45 Tablet 3 09/24/2022 Active Lisinopril 20 MG Oral Tablet (Prinivil)Indicatio ns:Type 2 diabetes mellitus with stage 3b chronic kidney disease, without long-term current use of insulin ([facility]),HTN, goal below 150/90,History of hypertensive crisis Take [...] goal of less than 8.0% ([facility]) Use to test blood glucose 3 times daily. DX: E11.9 300 Each 3 10/03/2022 Active Vitamin B-12 1000 MCG Oral Tablet (Cyanocobalamin)Ind ications:Type 2 diabetes mellitus with stage 3b chronic kidney disease, without long-term current use of insulin ([facility]) 1 tab on odd days only, start 06/13/2021--dec 3d/wk 10/18/2021 45 Tablet 3 10/13/2022 Active Verapamil HCl ER 180 MG Oral Tablet Extended Release (Isoptin SR)Indications:HTN, goal below 150/90,Type 2 diabetes mellitus with stage 3b chronic kidney disease, without long-term current use of insulin ([facility]) take 1 tablet by mouth every evening 90 Tablet 1 11/24/2022 Active Tradjenta 5 MG Oral Tablet (linaGLIPtin)Indica tions:Type 2 diabetes mellitus with retinopathy of both eyes, without long-term current use of insulin, macular edema presence unspecified, unspecified retinopathy severity ([facility]) take 1 tablet by mouth daily 90 [...] long-term current use of insulin ([facility]) take 1 tablet by mouth every morning INCREASE BACK 11/14/21 AND STOP METFORMIN 90 Tablet 1 01/22/2023 Active Repaglinide 2 MG Oral Tablet (Prandin)Indication s:Type 2 diabetes mellitus with hemoglobin A1c goal of less than 8.0% ([facility]) take 1 tablet by mouth three times a day BEFORE MEALS Strength: 2 mg 270 Tablet 3 2023 Active documented as of this encounter (statuses as of 02/24/2023) Active Problems Problem Noted Date MGUS (monoclonal [...] as of this encounter (statuses as of 02/24/2023) Resolved Problems Problem Noted Date Resolved Date Type 2 diabetes mellitus wit h stage 3b chronic kidney disease, without long-term current use of insulin 07/26/202103/06 Overview: Per CKD protocol documented as of this encounter (statuses as of 02/24/2023) Immunizations Name Administration Dates Next Due COVID-19 [...] Visit Cardiology May Gipson PA-C [address] [place] [address] 04/30/2023 Laboratory Laboratory Myrna [place] [address] [place] [address] 05/04/2023 Office Visit Pharmacy Pharmacist, [facility] 200 [place] [address] 05/04/2023 Office Visit Internal Medicine Dalila Bauman MD 200 [place] [address] 05/11/2023 Office Visit Hematology Oncology Joshua Nunez MD [address] [place] [address] 05/25/2023 Imaging Radiology 06/03/2023 Office Visit Vascular Surgery IrFrancesco sullivan MD [address] [place] [address] 06/17/2023 Office Visit Cardiology Wiliam Schroeder MD [address] [place] [address] 09/11/2023 Office Visit Nephrology Cornel Smith MD [address] [place] [address] Scheduled Orders Name Type Priority Associated Diagnoses Orde r Schedule MYCODE SUBSEQUENT ADULT Lab Routine My[facility] Research Other*[id number] Every 6 Months for 2 Occurrences starting 02/24/2023 until 03/15/2024 Health Maintenance Due Date Last Done Comments [...] D LEVEL ONCE IN A LIFETIME-USE SMARTSET# [id number] Completed 12/19/2022, 03/25/2022, 11/11/2021, Additional history exists [...] this encounter Medical Devices Implanted Type Area Hand Ii Tube Bender Device Identifier Shelf Expiration Date Model / Serial / Lot Lens Intraoc 25.0 - [id number] - [id number] Implanted:Qty: 1 on 09/03/2021 by Deon Griffin MD at OR [facility] Left: Eye [employer] 10/02/2025 [id number] / [id number] / [id number] Lens Intraoc 26.0 - [id number] - [id number] Implanted:Qty: 1 on 09/17/2021 by Deon Griffin MD at OR [facility] Right: Eye [employer]OM[employer] 10/03/2025 [id number] / [id number] / [id number] documented as of this encounter Visit Diagnoses Diagnosis [employer] Other*[id number] documented in this encounter Care Teams Section Chief Relationship Specialty Start Date End Date Dalila Bauman MD [address] [place] [address], [place] [address] PCP - General Internal Medicine 01/09/21 documented as of this encounter
--- OUTSIDE RECORDS SUMMARY | 2023-08-13 06:48 | External Medical Summary ---
Author Name Unknown Address Unknown Organization [id number]:[facility] [place] [address] [facility] [address] Laboratory Report Ordering Provider Test Date Status SHADI FELIX 05/04/2023 16:24:55 Final Observation Date Value Abnormality Reference (Units ) Status WBC, Total 05/04/2023 16:24:55 6.92 4.00-10.80 (K/uL) Final RBC 05/04/2023 16:24:55 3.74 3.85-5.15 (M/uL) Final Hemoglobin 05/04/2023 16:24:55 12.1 12.0-15.3 (g/dL) Final HCT 05/04/2023 16:24:55 38.4 36.0-45.2 (%) Final MCV 05/04/2023 16:24:55 102.7 81.5-97.5 (fL) Final MCH 05/04/2023 16:24:55 32.4 27.0-34.0 (pg) Final MCHC 05/04/2023 16:24:55 31.5 32.0-36.0 (g/dL) Final RDW 05/04/2023 16:24:55 12.5 11.5-15.5 (%) Final Platelets 05/04/2023 16:24:55 268 140-400 (K/uL) Final MPV 05/04/2023 16:24:55 9.8 6.6-11.1 (fL) Final Nucleated erythrocytes/100 leukocytes [Ratio] in Blood by Automated count 05/04/2023 16:24:55 0 <=0 (/100 WBCs) Final Performing Location [facility] [place] [address] [place] [address]
--- OUTSIDE RECORDS SUMMARY | 2023-08-13 06:48 | External Medical Summary | Summary of Care ---
Author Name Unknown Organization [facility] Address [address] [place] [address] Phone [phone] Care Team Providers Care Manager Property Name Role Phone Dalila Bauman MD Primary Care Provider [phone] Reason for Visit * Reason Onset Date Comments Appointment 02/18/2023 Recall Encounter Details Date Type Department Care Team Description 02/18/2023 Telephone Vascular Surg [facility] [address] [place] [address] Francesco Cohen MD [address] [place] [address] Appointment (Recall/) Allergies Active Allergy Reactions Severity Noted Date [...] use of insulin ([facility]) take 1 tablet by mouth every evening 90 Tablet 1 11/24/2022 Active Tradjenta 5 MG Oral Tablet (linaGLIPtin)Indica tions:Type 2 diabetes mellitus with retinopathy of both eyes, without long-term current use of insulin, macular edema presence unspecified, unspecified retinopathy severity ([facility]) take 1 tablet [...] encounter Miscellaneous Notes * Telephone Encounter - PATRICK Villa - 02/24/2023 7:48 AM EDT Scheduled rr * Telephone Encounter - PATRICK Villa - 02/20/2023 9:31 AM EDT Called patient x2 to schedule her year return Left message rr * Telephone Encounter - PATRICK Villa - 02/18/2023 10:13 AM EDT RTC 1 yr with carotid duplex ([facility] May 2023) Called patient to schedule her year return Left message rr documented in this encounter Plan of Treatment Upcoming Encounters Date Type Specialty Care Team Description 04/30/2023 Office Visit Cardiology May Gipson PA-C [address] [place] [address] 04/30/2023 Laboratory Laboratory [facility] [address] [place] [address] 05/04/2023 Office Visit Pharmacy Pharmacist1, [facility] [address] [place] [address] 05/04/2023 Office Visit Internal Medicine Dalila Bauman MD [address] [place] [address] 05/11/2023 Office Visit Hematology Oncology Joshua Nunez MD [address] [place] [address] 05/25/2023 Imaging Radiology 06/03/2023 Office Visit Vascular Surgery Francesco Cohen MD [address] [place] [address] 06/17/2023 Office Visit Cardiology Wiliam Schroeder MD [address] [place] [address] 09/11/2023 Office Visit NephCornel Mliler MD [address] [place] [address] Health Maintenance Due Date Last Done Comments [...] D LEVEL ONCE IN A LIFETIME-USE SMARTSET# [id number] Completed 12/19/2022, 03/25/2022, 11/11/2021, Additional history exists [...] this encounter Medical Devices Implanted Type Area Advertising Account Representative Device Identifier Shelf Expiration Date Model / Serial / Lot Lens Intraoc 25.0 - [id number] - [id number] Implanted:Qty: 1 on 09/03/2021 by Deon Griffin MD at [facility] Left: Eye [employer] 10/02/2025 [id number] / [id number] / [id number] Lens Intraoc 26.0 - [id number] - [id number] Implanted:Qty: 1 on 09/17/2021 by Deon Griffin MD at OR [facility] Right: Eye [employer] 10/03/2025 [id number] / [id number] / [id number] documented as of this encounter Care Teams Manager Property Relationship Specialty Start Date End Date Dalila Bauman MD [address] [place] [address] PCP - General Internal Medicine 01/09/21 documented as of this encounter
--- OUTSIDE RECORDS SUMMARY | 2023-08-13 06:48 | External Medical Summary | Summary of Care ---
Author Name Unknown Organization [facility] Address [address] [facility] [place] [address] Phone [phone] Care Team Providers Care Mechanical Engineering Specialist Name Role Phone Juno Bauman MD Primary Care Provider [phone] Reason for Visit * Reason Onset Date Comments Medication Refill 03/27/2023 Encounter Details Date Type Department Care Team Description 02/11/2023 Refill General Internal Medicine [facility] Amanda Gonzalez [address] [facility] [place] [address] Kadi Smith MD [address] [facility] [place] [id number] Type 2 diabetes mellitus with hemoglobin A1c goal of less than 8.0% (HCC) Allergies Active Allergy Reactions Severity Noted Date Comments Latex 01/09/2021 Penicillins 01/09/2021 Sulfa Antibiotics 01/09/2021 documented as of this encounter (statuses as of 03/27/2023) Medications Medication Sig Dispensed Refills Start Date End Date Status Aspirin EC 81 MG Oral Tablet Delayed ReleaseIndicatio ns:Type 2 diabetes mellitus with retinopathy of both eyes, without long-term current use of insulin, macular edema presence unspecified, unspecified retinopathy severity (HCC),Dyslipidem ia, goal LDL below 100 Take 1 Tablet by mouth in the morning. 100 Tab 3 1 Active Prodigy Voice Blood Glucose w/Device KitIndications:T [...] Change every 14 weeks 2 Each 11 2 Active Acetaminophen 500 MG Oral Tablet [...] at bedtime INCREASE 11/13/2021 90 Tablet 3 2 Active RA Loratadine 10 MG Oral Tablet (Loratadine)Dora cations:Seasonal allergic rhinitis due to pollen,Mucous retention cyst of maxillary sinus take 1 tablet by mouth at bedtime 90 Tablet 3 2 Active Metoprolol Succinate ER 100 MG Oral Tablet Extended Release 24 Hour (toPROL XL)Indications:H TN, goal below 150/90 take 1 tablet by mouth once daily 90 Tablet 3 2 Active Insulin Pen Needle 32G X 6 MMIndications:Ty pe 2 diabetes mellitus with hemoglobin A1c goal of less than 8.0% (HCC) Use with Lantus once daily 100 Each 3 3 Active Prodigy No Coding Blood Gluc In Vitro Strip (Glucose Blood)Indication s:Type 2 diabetes mellitus with hemoglobin A1c goal of less than 8.0% ([facility]) Use to test blood glucose 3 times daily as directed. 300 Strip 3 3 Active Prevagen 10 MG Oral Capsule (Apoaequorin) Take by mouth every evening. 0 Active Insulin Glargine Solostar 100 UNIT/ML Subcutaneous Solution Pen-injector Inject 36 Units under the skin daily. (increase by 3 units every 3 days until AM BG <180) 30 mL 3 3 Active hydrALAZINE HCl 100 MG Oral Tablet Take 1 Tablet by mouth in the morning and 1 Tablet at noon and 1 Tablet before bedtime. 270 Tablet 3 3 Active Furosemide 20 MG Oral Tablet (Lasix)Indicatio ns:Type 2 diabetes mellitus with stage 3b chronic kidney disease, without long-term current use of insulin ([facility]),HTN, goal below 150/90,Bilateral leg edema Take 1 to 2 tablets per week. 45 Tablet 3 3 Active Lisinopril 20 MG Oral Tablet (Prinivil)Indica tions:Type 2 diabetes mellitus with stage 3b chronic kidney disease, without long-term current use of insulin ([facility]),HTN, goal below 150/90,History of hypertensive [...] hemoglobin A1c goal of less than 8.0% ([facility]) Use to test blood glucose 3 times daily. DX: E11.9 300 Each 3 3 Active Vitamin B-12 1000 MCG Oral Tablet (Cyanocobalamin) Indications:Type 2 diabetes mellitus with stage 3b chronic kidney disease, without long-term current use of insulin ([facility]) 1 tab on odd days only, start 06/13/2021--dec 3d/wk 10/18/2021 45 Tablet 3 3 Active Verapamil HCl ER 180 MG Oral Tablet Extended Release (Isoptin SR)Indications:H TN, goal below 150/90,Type 2 diabetes mellitus with stage 3b chronic kidney disease, without long-term current use of insulin ([facility]) take 1 tablet by mouth every evening 90 Tablet 1 3 Active Tradjenta 5 MG Oral Tablet (linaGLIPtin)Ind ications:Type 2 diabetes mellitus with retinopathy of both eyes, without long-term current use of insulin, macular edema presence unspecified, unspecified retinopathy severity ([facility]) take 1 tablet by mouth daily 90 Tablet 1 3 Active CoQ10 200 MG Oral Capsule Take by mouth. 0 Active Diclofenac Sodium 1 % External Gel (Voltaren) Apply topically to affected area 3 times a day as needed for Pain, Mild or Pain, Moderate. 0 3 Active Diclofenac Sodium 1 % External Gel (Voltaren) Apply topically to affected area 3 times a day. Apply 2-4 gm to affected areas for pain 50 g 3 3 Active Jardiance 25 MG Oral Tablet (Empagliflozin)I [...] BY MOUTH EVERY MORNING 45 Tablet 3 2 03/02/20 23 Discontinued Repaglinide 2 MG Oral Tablet (Prandin)Indicat ions:Type 2 diabetes mellitus with hemoglobin A1c goal of less than 8.0% (HCC) take 1 tablet by mouth three times a day BEFORE MEALS Strength: 2 mg 90 Tablet 3 3 02/18/20 23 Discontinued(Ref ill) documented as of this encounter (statuses as of 03/27/2023) Active Problems Problem Noted Date MGUS (monoclonal [...] as of this encounter (statuses as of 03/27/2023) Resolved Problems Problem Noted Date Resolved Date Type 2 diabetes mellitus wit h stage 3b chronic kidney disease, without long-term current use of insulin 07/26/202103/06 Overview: Per CKD protocol documented as of this encounter (statuses as of 03/27/2023) Immunizations Name Administration Dates Next Due COVID-19 [...] encounter Miscellaneous Notes * Telephone Encounter - Juno Bauman MD - 2023 1:03 PM EDTSigned Prescriptions: Disp Refills Repaglinide 2 MG Oral Tablet (Prandin) 270 Ta*3 Sig: take 1 tablet by mouth three times a day BEFORE MEALS Strength: 2 mg Authorizing Provider: JUNO BAUMAN * Telephone Encounter - PATRICK Diop - 02/11/2023 1:15 PM EDT 90 Day Supply Request Patient requested a 90 day supply of Repaglinide 2 MG Tablet documented in this encounter Plan of Treatment Upcoming Encounters Date Type Specialty Care Team Description 04/30/2023 Office Visit [facility]iology [facility] [address] [facility] [address] 04/30/2023 Laboratory [facility] [address] [facility] [place] [address] 05/04/2023 Office Visit Pharmacy Pharmacist1, [facility] [address] [place], [place] [address] 05/04/2023 Office Visit Internal Medicine Juno Bauman MD [address] [place], [place] [address] 05/11/2023 Office Visit Hematology Oncology Joshua Nunez MD [address] [place] [address] 05/25/2023 Imaging Radiology 06/03/2023 Office Visit Vascular Surgery Francesco Cohen MD [address] [place] [address] 06/17/2023 Office Visit Cardiology Wiliam Schroeder MD [address] [place] [address] 09/11/2023 Office Visit Nephrology Cornel Smith MD [address] [facility] [place] [address] Health Maintenance Due Date Last Done Comments [...] D LEVEL ONCE IN A LIFETIME-USE SMARTSET# [id number] Completed 12/19/2022, 03/25/2022, 11/11/2021, Additional history exists [...] this encounter Medical Devices Implanted Type Area Enrollment Processor Device Identifier Shelf Expiration Date Model / Serial / Lot Lens Intraoc 25.0 - [id number] - [id number] Implanted:Qty: 1 on 09/03/2021 by Deon Griffin MD at OR [facility] Left: Eye [employer] 10/02/2025 [id number] / [id number] / [id number] Lens Intraoc 26.0 - [id number] - [id number] Implanted:Qty: 1 on 09/17/2021 by Deon Griffin MD at OR [facility] Right: Eye [employer]OM[employer] 10/03/2025 [id number] / [id number] / [id number] documented as of this encounter Visit Diagnoses Diagnosis Type 2 diabetes mellitus with hemoglobin A1c goal of less than 8.0% (HCC) documented in this encounter Care Teams Mechanical Engineering Specialist Relationship Specialty Start Date End Date Juno Bauman MD [address] [place] [address], [place] [address] PCP - General Internal Medicine 01/09/21 documented as of this encounter
--- OUTSIDE RECORDS SUMMARY | 2023-08-13 06:48 | External Medical Summary | Summary of Care ---
Author Name Unknown Organization [facility] Address [address] [place] [address] Phone [phone] Care Team Providers Care Filter Washer And Presser Name Role Phone Dalila Bauman MD Primary Care Provider [phone] Reason for Visit * Reason Comments Diabetes Follow-Up Dosage Adjustment In Person (Anticoag Cl inic) Encounter Details Date Type Department Care Team (Late st Contact Info) Description 05/04/2023 2:30 PM EDT Office Visit Pharmacy, [facility] [address] [facility] [place] [address] Pharmacist1, [facility] [address] [facility] [place] [address] Type 2 diabetes mellitus with hemoglobin A1c goal of less than 8.0% (HCC)* Allergies Active Allergy Reactions Criticality Noted Date [...] Active RA Loratadine 10 MG Oral Tablet (Loratadine)Indica tions:Seasonal allergic rhinitis due to pollen,Mucous retention cyst [...] hemoglobin A1c goal of less than 8.0% ([facility]) Use with Lantus once daily 100 Each 3 09/02/2022 Active Prodigy No Coding Blood Gluc In Vitro Strip (Glucose Blood)Indications: Type 2 diabetes mellitus with hemoglobin A1c goal of less than 8.0% ([facility]) Use to test blood glucose 3 times daily as directed. 300 Strip 3 09/02/2022 Active Prevagen 10 MG Oral Capsule (Apoaequorin) Take by mouth every evening. 0 Active hydrALAZINE HCl 100 MG Oral Tablet Take 1 Tablet by mouth in the morning and 1 Tablet at noon and 1 Tablet before bedtime. 270 Tablet 3 09/24/2022 Active Furosemide 20 MG Oral Tablet (Lasix)Indications :Type 2 diabetes mellitus with stage 3b chronic kidney disease, without long-term current use of insulin ([facility]),HTN, goal below 150/90,Bilateral leg edema Take 1 to 2 tablets per week. 45 Tablet 3 09/24/2022 Active Lisinopril 20 MG Oral Tablet (Prinivil)Indicati ons:Type 2 diabetes mellitus with stage 3b chronic kidney disease, without long-term current use of insulin ([facility]),HTN, goal below 150/90,History of hypertensive crisis Take [...] hemoglobin A1c goal of less than 8.0% ([facility]) Use to test blood glucose 3 times [...] disease, without long-term current use of insulin ([facility]) take 1 tablet by mouth every evening 90 Tablet 1 11/24/2022 Active Tradjenta 5 MG Oral Tablet (linaGLIPtin)Indic ations:Type 2 diabetes mellitus with retinopathy of both eyes, without long-term current use of insulin, macular edema presence unspecified, unspecified retinopathy severity ([facility]) take 1 tablet by mouth daily 90 Tablet 1 11/27/2022 Active CoQ10 200 MG Oral Capsule Take by mouth. 0 Active Jardiance 25 MG Oral Tablet (Empagliflozin)Ind ications:Type 2 diabetes mellitus with hemoglobin A1c goal of less than 8.0% ([facility]),Type 2 diabetes mellitus with stage 3b chronic kidney disease, without long-term current use of insulin (HCC) take 1 tablet by mouth every morning INCREASE BACK 11/14/21 AND STOP METFORMIN 90 Tablet 1 01/22/2023 Active Repaglinide 2 MG Oral Tablet (Prandin)Indicatio ns:Type 2 diabetes mellitus with hemoglobin A1c goal of less than 8.0% ([facility]) take 1 tablet by mouth three times a day BEFORE MEALS Strength: 2 mg 270 Tablet 3 2023 Active Sertraline HCl 50 MG Oral Tablet (Zoloft) TAKE 1/2 A TABLET BY MOUTH EVERY MORNING 45 Tablet 3 03/02/2023 Active COVID-19 At Home Antigen Test In Vitro KitIndications:Harini moreira for screening laboratory testing for COVID-19 virus [...] the morning. 5 Each 3 05/04/2023 Active Insulin Glargine Solostar 100 UNIT/ML Subcutaneous Solution Pen-injector Inject 36 Units under the skin daily. (increase by 3 units every 3 days until AM BG <180) 30 mL 3 09/10/2022 3 Discontinue d(Formulary /Cost) documented as of this encounter (statuses as [...] of this encounter Progress Notes * Pedrito Tee, [facility] - 05/04/2023 2:09 PM EDT Medication Therapy Disease Management Clinic - Diabetes Management Progress Note Ramila Urrutia, identified by name and date of , is a 88 year old female being seen for diabetes management/education. Patient presents for return diabetic visit. DIABETES: Current diabetic medications: Lantus 36 units daily Prandin 2mg TID with meals Tradjenta 5mg QD Jardiance 25mg QAM Medication Injection Site: Abdomen Lifestyle: Diet: improved History of Treatment Barriers: Lifestyle: None Therapy considerations: Retinopathy (avoid GLP1a) Medication: None Glucose Review/SMBG: Readings obtained from patient documented BG logbook Pre am Pre Lunch Pre pm HS -Feb 137 135 154 230 112 114 110 125 117 129 208 136 144 186 139 115 117 129 122 109 131 138 123 117 117 96 132 135 107 Pre am Pre Lunch Pre pm HS Average 125 125 147 178 Hi 139 144 208 230 Lo 107 96 109 125 Range 32 48 99 105 Hypoglycemia: Does your blood sugar go below 70 mg/dL? No Hyperglycemia symptoms present: none Recent Labs Units 04/30/23 1143 12/19/22 1345 09/01/22 1306 HEMOGLOBIN A1C - [facility] % 6.1* 7.4* 10.7* Recent Labs Units 12/19/22 1345 10/24/22 1537 [...] daily BP Readings from Last 3 Encounters: 04/30/23 192/70 02/19/23 201/82 12/30/22 162/64 Blood pressure at goal: No Current regimen: Lisinopril 20mg twice daily Verapamil ER 180mg daily Metoprolol Succinate 100mg daily Hydralazine 100mg three times daily Furosemide 20mg once or twice weekly as needed Isordil 30mg 3 times daily Blood Pressure Goal: <140/90 mmHg No results for input(s): "MICROALBUMIN" in the last 69129 hours. Recent Labs Units 12/19/22 1345 10/24/22 1537 10/14/22 1415 POTASSIUM - [facility] mmol/L 4.4 4.2 4.8 HYPERLIPIDEMIA: Patient is taking moderate or high intensity statin: yes, Atorvastatin 80mg daily HEALTH MAINTENANCE REVIEW: Health Maintenance Due Topic Date Due Pneumococcal Vaccine: 65+ Years (1 - PCV) Never done DTaP,Tdap,and Td Vaccines (1 - Tdap) Never done Zoster Vaccines (1 of 2) Never done Hepatitis B (1 of 3 - Risk 3-dose series) Never done Diabetic Foot Exam 10/16/2022 Influenza Vaccine (FLU shot) (1) Never done COVID-19 Vaccine ( - 2022- season) 2023 ASSESSMENT & PLAN: ICD-10-CM 1. Type 2 diabetes mellitus with hemoglobin A1c goal of less than 8.0% (HCC) E11.9 BG Readings - Blood sugars controlled. BG are on the lower end of her goal. WIll decrease long acting insulin 3 units daily. Medications - Reviewed current regimen, patient is adherent to regimen. Switching Lantus to Tresibafor formulary in 2023. Diet, Exercise, Lifestyle - No significant lifestyle changes since last visit. Discussed with patient today. Patient is agreeable to SMBG 1 time(s) daily. Patient aware to contact clinic if any hypoglycemia before next visit. MEDICATION CHANGES: yes, see below; preferred pharmacy: [facility] Medications: DECREASE: Tresiba U100 33 units daily in AM Prandin 2mg TID with meals Tradjenta 5mg QD Jardiance 25mg QAM HEALTH MAINTENANCE INTERVENTIONS: Labs: Up to Date Immunizations: needs pneumococcal, tetanus, shingles Foot Exam: needs completed Eye Exam: Up to Date Annual Wellness Visit: Up to Date FOLLOW UP: Return to clinic in 3 months 09/11/2023 Pedrito Mclain RPh, CDE Clinical Pharmacist - Subcontracts Manager Medication Therapy Management Clinic 05/04/2023, 2:10 PM documented in this encounter Plan of Treatment Upcoming Encounters Date Type Department Care Team (Late st Contact Info) Description 05/04/2023 3:00 PM EDT Office Visit General Internal Medicine [facility] [address] [facility] [place] [address] Dalila Bauman MD 200 [facility] [place] [address] Arrived 05/11/2023 3:30 PM EST Office Visit Hematology/Oncology [facility] 200 [facility] [place] [address] Joshua Nunez MD 200 [facility] [place] [address] 05/25/2023 2:00 PM EST Imaging Vascular Lab, [facility] 2nd Floor, [place] [address] [facility] [place] [address] 06/03/2023 1:30 PM EST Office Visit Vascular Surgery, [facility] 132 [place] [address] Francesco Cohen MD [address] [place] [address] 06/17/2023 3:30 PM EST Office Visit Cardiology, [facility] 132 [place] [address] Wiliam Schroeder MD [address] [place] [address] 09/11/2023 3:30 PM EST Office Visit [facility], [facility] [place] [address] [facility] [place] [address] Pharmacist1, [facility] 200 [facility] [address] [facility] [place] [address] 09/11/2023 4:00 PM EST Office Visit Nephrology, [facility] [address] [facility] [place] [address] Cornel Smith MD 200 [facility] [place] [address] Health Maintenance Due Date Last Done Comments [...] D LEVEL ONCE IN A LIFETIME-USE SMARTSET# [id number] Completed 12/19/2022, 03/25/2022, 11/11/2021, Additional history exists GARDASIL-HPV IMMUNIZATION SERIES Aged Out No longer eligible based on patient's age to complete this topic MENINGOCOCCAL (MENACTRA/MENVEO) Aged Out No longer eligible based on patient's age to complete this topic documented as of this encounter Medical Devices Implanted Type Area Vinyl Dipper Device Identifier Shelf Expiration Date Model / Serial / Lot Lens Intraoc 25.0 - [id number] - [id number] Implanted:Qty: 1 on 09/03/2021 by Deon Griffin MD at OR [facility] Left: Eye [employer] 10/02/2025 [id number] / [id number] / [id number] Lens Intraoc 26.0 - [id number] - [id number] Implanted:Qty: 1 on 09/17/2021 by Deon Griffin MD at OR [facility] Right: Eye [employer]OM[employer] 10/03/2025 [id number] / [id number] / [id number] documented as of this encounter Visit Diagnoses Diagnosis Type 2 diabetes mellitus with hemoglobin A1c goal of less than 8.0% (HCC)- Primary documented in this encounter Care Teams Filter Washer And Presser Relationship Specialty Start Date End Date Dalila Bauman MD 200 [place] [address] PCP - General Internal Medicine 01/09/21 documented as of this encounter
--- OUTSIDE RECORDS SUMMARY | 2023-08-13 06:49 | External Medical Summary | Summary of Care ---
Author Name Unknown Organization [facility] Address [address] [place] [address] Phone [phone] Care Team Providers Care Machine Room Operator Name Role Phone Dalila Bauman MD Primary Care Provider [phone] Reason for Visit * Reason Onset Date Comments Appointment 02/18/2023 Recall Encounter Details Date Type Department Care Team Description 02/18/2023 Telephone Vascular Surg [facility] [address] [place] [address] Francesco Cohen MD [address] [place] [address] Appointment (Recall/) Allergies Active Allergy Reactions Severity Noted Date Comments Latex 01/09/2021 Penicillins 01/09/2021 Sulfa Antibiotics 01/09/2021 documented as of this encounter (statuses as of 02/18/2023) Medications Medication Sig Dispensed Refills Start Date [...] every 14 weeks 2 Each 08/23/2021 Active Additional Information Patient not taking.Reported on 12/30/2022 Acetaminophen 500 MG Oral Tablet (Tylenol) Take [...] goal of less than 8.0% ([facility]) Use with Lantus once daily 100 Each 3 09/02/2022 Active Prodigy No Coding Blood Gluc In Vitro Strip (Glucose Blood)Indications:T ype 2 diabetes mellitus with hemoglobin A1c goal of less than 8.0% ([facility]) Use to test blood glucose 3 [...] long-term current use of insulin ([facility]),HTN, goal below 150/90,Bilateral leg edema Take 1 to 2 tablets per week. 45 Tablet 3 09/24/2022 Active Lisinopril 20 MG Oral Tablet (Prinivil)Indicatio ns:Type 2 diabetes mellitus with stage 3b chronic kidney disease, without long-term current use of insulin ([facility]),HTN, goal below 150/90,History of hypertensive crisis [...] goal of less than 8.0% ([facility]) Use to test blood glucose 3 times daily. DX: E11.9 300 Each 3 10/03/2022 Active Vitamin B-12 1000 MCG Oral Tablet (Cyanocobalamin)Ind ications:Type 2 diabetes mellitus with stage 3b chronic kidney disease, without long-term current use of insulin ([facility]) 1 tab on odd days only, start 06/13/2021--dec 3d/wk 10/18/2021 45 Tablet 3 10/13/2022 Active Verapamil HCl ER 180 MG Oral Tablet Extended Release (Isoptin SR)Indications:HTN, goal below 150/90,Type 2 diabetes mellitus with stage 3b chronic kidney disease, without long-term current use of insulin ([facility]) take 1 tablet by mouth every evening 90 Tablet 1 11/24/2022 Active Tradjenta 5 MG Oral Tablet (linaGLIPtin)Indica tions:Type 2 diabetes mellitus with retinopathy of both eyes, without long-term current use of insulin, macular edema presence unspecified, unspecified retinopathy severity ([facility]) take 1 tablet by mouth daily [...] goal of less than 8.0% ([facility]),Type 2 diabetes mellitus with stage 3b chronic kidney disease, without long-term current use of insulin ([facility]) take 1 tablet by mouth every morning INCREASE BACK 11/14/21 AND STOP METFORMIN 90 Tablet 1 01/22/2023 Active Repaglinide 2 MG Oral Tablet (Prandin)Indication s:Type 2 diabetes mellitus with hemoglobin A1c goal of less than 8.0% ([facility]) take 1 tablet by mouth three times a day BEFORE MEALS Strength: 2 mg 270 Tablet 3 2023 Active documented as of this encounter (statuses as of 02/18/2023) Active Problems Problem Noted Date MGUS (monoclonal [...] as of this encounter (statuses as of 02/18/2023) Resolved Problems Problem Noted Date Resolved Date Type 2 diabetes mellitus wit h stage 3b chronic kidney disease, without long-term current use of insulin 07/26/202103/06 Overview: Per CKD protocol documented as of this encounter (statuses as of 02/18/2023) Immunizations Name Administration Dates Next Due COVID-19 [...] EDT RTC 1 yr with carotid duplex (Noel Campoverde May 2023) Called patient to schedule her year return Left message [facility] documented in this encounter Plan of Treatment Upcoming Encounters Date Type Specialty Care Team Description 02/19/2023 Office Visit Nephrology Cornel Smith MD [address] [facility] [place] [address] 02/20/2023 Office Visit Pharmacy Pharmacist1, [facility] [address] [facility] [place] [address] 04/30/2023 Office Visit Cardiology May Gipson PA-C [address] [place] [address] 04/30/2023 Laboratory Laboratory [facility] [address] [facility] [place] [address] 05/04/2023 Office Visit Internal Medicine Dalila Bauman MD [address] [facility] [place] [address] 05/11/2023 Office Visit Hematology Oncology Joshua Nunez MD [address] [facility] [place] [address] 06/17/2023 Office Visit Cardiology Wiliam Schroeder MD [address] [place] [address] Health Maintenance Due Date Last Done Comments [...] D LEVEL ONCE IN A LIFETIME-USE SMARTSET# [id number] Completed 12/19/2022, 03/25/2022, 11/11/2021, Additional history exists [...] this encounter Medical Devices Implanted Type Area Business Applications Manager Device Identifier Shelf Expiration Date Model / Serial / Lot Lens Intraoc 25.0 - [id number] - [id number] Implanted:Qty: 1 on 09/03/2021 by Deon Griffin MD at OR [facility] Left: Eye [employer] 10/02/2025 [id number] / [id number] / [id number] Lens Intraoc 26.0 - [id number] - [id number] Implanted:Qty: 1 on 09/17/2021 by Deon Griffin MD at OR [facility] Right: Eye [employer] 10/03/2025 [id number] / [id number] / [id number] documented as of this encounter Care Teams Machine Room Operator Relationship Specialty Start Date End Date Dalila Bauman MD [address] [place] [address] PCP - General Internal Medicine 01/09/21 documented as of this encounter
--- OUTSIDE RECORDS SUMMARY | 2023-08-13 06:49 | External Medical Summary | Summary of Care ---
Author Name Unknown Organization [facility] Address [address] [place] [address] Phone [phone] Care Team Providers Care Wood Router Hand Name Role Phone Dalila Bauman MD Primary Care Provider [phone] Reason for Visit * Reason Onset Date Comments Appointment 02/18/2023 Recall Encounter Details Date Type Department Care Team Description 02/18/2023 Telephone Vascular Surg [facility] [address] [place] [address] Francesco Cohen MD [address] [place] [address] Appointment (Recall/) Allergies Active Allergy [...] than 8.0% ([facility]) Use with Lantus once daily 100 Each 3 09/02/2022 Active Prodigy No Coding Blood Gluc In Vitro Strip (Glucose Blood)Indications:T ype 2 diabetes mellitus with hemoglobin A1c goal of less than 8.0% ([facility]) Use to test blood glucose 3 [...] of insulin ([facility]),HTN, goal below 150/90,Bilateral leg edema Take 1 to 2 tablets per week. 45 Tablet 3 09/24/2022 Active Lisinopril 20 MG Oral Tablet (Prinivil)Indicatio ns:Type 2 diabetes mellitus with stage 3b chronic kidney disease, without long-term current use of insulin ([facility]),HTN, goal below 150/90,History of hypertensive crisis [...] than 8.0% ([facility]) Use to test blood glucose 3 times daily. DX: E11.9 300 Each 3 10/03/2022 Active Vitamin B-12 1000 MCG Oral Tablet (Cyanocobalamin)Ind ications:Type 2 diabetes mellitus with stage 3b chronic kidney disease, without long-term current use of insulin ([facility]) 1 tab on odd days only, start 06/13/2021--dec 3d/wk 10/18/2021 45 Tablet 3 10/13/2022 Active Verapamil HCl ER 180 MG Oral Tablet Extended Release (Isoptin SR)Indications:HTN, goal below 150/90,Type 2 diabetes mellitus with stage 3b chronic kidney disease, without long-term current use of insulin ([facility]) take 1 tablet by mouth every evening 90 Tablet 1 11/24/2022 Active Tradjenta 5 MG Oral Tablet (linaGLIPtin)Indica tions:Type 2 diabetes mellitus with retinopathy of both eyes, without long-term current use of insulin, macular edema presence unspecified, unspecified retinopathy severity ([facility]) take 1 tablet by mouth daily [...] than 8.0% ([facility]) take 1 tablet by mouth three times [...] to schedule her year return Left message [facility] * Telephone Encounter - PATRICK Villa - 02/18/2023 10:13 AM EDT RTC 1 yr with carotid duplex (Noel Velásquez Campoverde May 2023) Called patient to schedule her year return Left message [facility] documented in this encounter Plan of Treatment Upcoming Encounters Date Type Specialty Care Team Description 02/20/2023 Office Visit Pharmacy Pharmacist1, [facility] [address] [place] [address] 04/30/2023 Office Visit Cardiology May Gipson PA-C [address] [place] [address] 04/30/2023 Laboratory Laboratory [facility] [address] [facility] [place] [address] 05/04/2023 Office Visit Internal Medicine Dalila Bauman MD [address] [place] [address] 05/11/2023 Office Visit Hematology Oncology Joshua Nunez MD [address] [facility] [place] [address] 06/17/2023 Office Visit Cardiology Wiliam Schroeder MD [address] [place] [address] 09/11/2023 Office Visit Nephrology Cornel Smith MD [address] [place] [address] Health Maintenance Due Date Last Done Comments [...] D LEVEL ONCE IN A LIFETIME-USE SMARTSET# [id number] Completed 12/19/2022, 03/25/2022, 11/11/2021, Additional history exists [...] this encounter Medical Devices Implanted Type Area Equipment Installation Professional Device Identifier Shelf Expiration Date Model / Serial / Lot Lens Intraoc 25.0 - [id number] - [id number] Implanted:Qty: 1 on 09/03/2021 by Deon Griffin MD at OR [facility] Left: Eye [employer] 10/02/2025 [id number] / [id number] / [id number] Lens Intraoc 26.0 - [id number] - [id number] Implanted:Qty: 1 on 09/17/2021 by Deon Griffin MD at OR [facility] Right: Eye [employer] 10/03/2025 [id number] / [id number] / [id number] documented as of this encounter Care Teams Wood Router Hand Relationship Specialty Start Date End Date Dalila Bauman MD [address] [facility] [place] [address] PCP - General Internal Medicine 01/09/21 documented as of this encounter
--- OUTSIDE RECORDS SUMMARY | 2023-08-13 06:49 | External Medical Summary | Summary of Care ---
Author Name Unknown Organization [facility] Address [address] [place] [address] Phone [phone] Care Team Providers Care Armature Winder Repairer Name Role Phone Dalila Bauman MD Primary Care Provider [phone] Reason for Visit * Reason Comments Chronic Kidney Disease (CKD) Encounter Details Date Type Department Care Team Description 02/19/2023 Office Visit Nephrology, Marcia Gonzalez [address] [place] [address] Cornel Smith MD 200 [facility] [place] [address] Stage 3b chronic kidney disease (HCC)*; HTN, goal below 150/90 Allergies Active Allergy Reactions Severity Noted Date Comments Latex 01/09/2021 Penicillins 01/09/2021 Sulfa Antibiotics 01/09/2021 documented as of this encounter (statuses as of 02/19/2023) Medications Medication Sig Dispensed Refills Start Date [...] hemoglobin A1c goal of less than 8.0% ([facility]) Use as directed every 14 [...] hemoglobin A1c goal of less than 8.0% ([facility]) Use with Lantus once daily 100 Each 3 09/02/2022 Active Prodigy No Coding Blood Gluc In Vitro Strip (Glucose Blood)Indications:T ype 2 diabetes mellitus with hemoglobin A1c goal of less than 8.0% ([facility]) Use to test blood glucose [...] disease, without long-term current use of insulin ([facility]),HTN, goal below 150/90,Bilateral leg edema Take 1 to 2 tablets per week. 45 Tablet 3 09/24/2022 Active Lisinopril 20 MG Oral Tablet (Prinivil)Indicatio ns:Type 2 diabetes mellitus with stage 3b chronic kidney disease, without long-term current use of insulin ([facility]),HTN, goal below 150/90,History of hypertensive [...] hemoglobin A1c goal of less than 8.0% ([facility]) Use to test blood glucose 3 times daily. DX: E11.9 300 Each 3 10/03/2022 Active Vitamin B-12 1000 MCG Oral Tablet (Cyanocobalamin)Ind ications:Type 2 diabetes mellitus with stage 3b chronic kidney disease, without long-term current use of insulin ([facility]) 1 tab on odd days only, start 06/13/2021--dec 3d/wk 10/18/2021 45 Tablet 3 10/13/2022 Active Verapamil HCl ER 180 MG Oral Tablet Extended Release (Isoptin SR)Indications:HTN, goal below 150/90,Type 2 diabetes mellitus with stage 3b chronic kidney disease, without long-term current use of insulin ([facility]) take 1 tablet by mouth every evening 90 Tablet 1 11/24/2022 Active Tradjenta 5 MG Oral Tablet (linaGLIPtin)Indica tions:Type 2 diabetes mellitus with retinopathy of both eyes, without long-term current use of insulin, macular edema presence unspecified, unspecified retinopathy severity ([facility]) take 1 tablet by mouth [...] hemoglobin A1c goal of less than 8.0% ([facility]) take 1 tablet by mouth three times a day BEFORE MEALS Strength: 2 mg 270 Tablet 3 2023 Active documented as of this encounter (statuses as of 02/19/2023) Active Problems Problem Noted Date MGUS (monoclonal [...] as of this encounter (statuses as of 02/19/2023) Resolved Problems Problem Noted Date Resolved Date Type 2 diabetes mellitus wit h stage 3b chronic kidney disease, without long-term current use of insulin 07/26/202103/06 Overview: Per CKD protocol documented as of this encounter (statuses as of 02/19/2023) Immunizations Name Administration Dates Next Due COVID-19 [...] Sign Reading Time Taken Comments Blood Pressure 201/82 02/19/2023 2:21 PM EDT Pulse 66 02/19/2023 2:10 PM EDT Temperature 35.9 C (96.7 F) 02/19/2023 2:10 PM ED T Respiratory Rate 18 02/19/2023 2:10 PM EDT Oxygen Saturation 96% 02/19/2023 2:10 PM EDT Inhaled Oxygen Concentration - - Weight 87.1 kg (192 lb) 02/19/2023 2:10 PM EDT Height - - Body Mass Index 32.96 11/04/2022 2:24 PM EDT documented in this encounter Progress Notes * Cornel Smith MD - 02/19/2023 2:18 PM EDT Chief Complaint Patient presents with Chronic Kidney Disease (CKD) HPI: 88-year-old female who is here evaluation of 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 Her kidney function has fluctuated quite a bit for the last 1 year. She had a creatinine of 0.9 a year ago but since then it has fluctuated anywhere from 1.2 to as high as 1.9. She has been added on multiple medication for blood pressure including Lasix. The Lasix dose has been very different at multiple times and currently once a week. She moved from [facility] to [place] to live with her daughter and grand kids. She lives in an apartment. History of diabetes type 2 for 30+ years as well as hypertension for 30+ years . However blood pressure was relatively controlled in the past but in a challenge last 1 year. She had COVID pneumonia requiring hospitalization and according to the patient everything has been more difficult since then.She is able to keep track of all of her medical problems including medications Her blood pressure has been a challenge and is currently being managed by Cardiology. She has had 2admission in the hospital for hypertension as well as slight acute renal failure 1 time in November 2021. That ARF was related with volume depletion in the setting of new onset Lasix and got better with IV fluid. Since last visit February 2022---- NSAID No Renal Stone No Herbal Medication No Urinary Complaints No Current Outpatient Medications Medication Sig Dispense Refill Aspirin EC 81 MG Oral Tablet Delayed Release Take 1 Tablet by mouth in the morning. 100 Tab 3 FreeStyle Jimmy 2 Sensor Use as directed [...] mouth 4 Tablets daily . [facility] Plus Sertraline HCl 50 MG Oral Tablet (Zoloft) TAKE 1/2 A TABLET BY MOUTH EVERY MORNING 45 Tablet 3 Atorvastatin Calcium 80 MG Oral Tablet (Lipitor) take 1 tablet by mouth at bedtime INCREASE 11/13/2021 90 Tablet 3 RA Loratadine 10 MG Oral Tablet (Loratadine) take 1 tablet by mouth at bedtime 90 Tablet 3 Metoprolol Succinate ER 100 MG Oral Tablet Extended Release 24 Hour (toPROL XL) take 1 tablet by mouth once daily 90 Tablet 3 Prevagen 10 MG Oral Capsule (Apoaequorin) [...] 1 Tablet before bedtime. 270 Tablet 3 Vitamin B-12 1000 MCG Oral Tablet (Cyanocobalamin) 1 tab on odd days only, start 06/13/2021--dec /wk 10/18/2021 45 Tablet 3 Verapamil HCl ER 180 MG Oral Tablet Extended Release (Isoptin SR) take 1 tablet by mouth every evening 90 Tablet 1 Tradjenta 5 MG Oral Tablet (linaGLIPtin) take 1 tablet by mouth daily 90 Tablet 1 CoQ10 200 MG Oral Capsule Take by mouth. Diclofenac Sodium 1 % External Gel (Voltaren) Apply topically to affected area 3 times a day as needed for Pain, Mild or Pain, Moderate. Diclofenac Sodium 1 % External Gel (Voltaren) Apply topically to affected area 3 times a day. Apply2-4 gm to affected areas for pain 50 g 3 Jardiance 25 MG Oral Tablet (Empagliflozin) take 1 tablet by mouth every morning INCREASE BACK 11/14/21 AND STOP METFORMIN 90 Tablet 1 Repaglinide 2 MG Oral Tablet (Prandin) take 1 tablet by mouth three times a day BEFORE MEALS Strength: 2 mg 270 Tablet 3 Prodigy Voice Blood Glucose w/Device Kit Use to test blood glucose 3 times daily. DX: E11.9. 1 Kit 0 Insulin Pen Needle 32G X 6 MM Use with Lantus once daily 100 Each 3 Prodigy No Coding Blood Gluc In Vitro Strip (Glucose Blood) Use to test blood glucose 3 times dailyas directed. 300 Strip 3 Prodigy Lancets 28G Use to test blood glucose 3 times daily. DX: E11.9 300 Each 3 No current facility-administered medications for this visit. Past Medical History: Diagnosis Date Hypertension Past Surgical History: Procedure Laterality Date REMOVE CATARACT, INSERT LENS PROSTH Left 09/03/2021 Left EXTRACAPSULAR CATARACT REMOVAL WITH INTRAOCULAR LENS performed by Deon Griffin MD at OR [facility] REMOVE CATARACT, INSERT LENS PROSTH Right 09/17/2021 Right EXTRACAPSULAR CATARACT REMOVAL WITH INTRAOCULAR LENS performed by Deon Griffin MD at OR [facility] Review of patient's allergies indicates: Allergen Reactions Latex Penicillins Sulfa Antibiotics No family history on file. Family History of Renal Disease No Social History Socioeconomic History Marital status: Spouse name: Not on file Number of children: Not on file Years of education: Not on file Highest education level: Not on file Occupational History Not on file Tobacco Use Smoking status: Never Smokeless tobacco: Never Vaping Use Vaping Use: Never used Substance and Sexual Activity Alcohol use: Yes Alcohol/week: 2.0 standard drinks Types: 2 5 oz of wine per week Drug use: Never Sexual activity: Not on file Other Topics Concern Not on file Social History Narrative Not on file Social Determinants of Health Financial Resource Strain: Not on file Food Insecurity: No Food Insecurity Worried About Running Out of Food in the Last Year: Never true Ran Out of Food in the Last Year: Never true Transportation Needs: Not on file Physical Activity: Not on file Stress: Not on file Social Connections: Not on file Intimate Partner Violence: Not on file Housing Stability: Not on file Ambulation: Walker Review of Systems: She feels completely normal at this time. Twelve systems reviewed and negative OBJECTIVE: PHYSICAL EXAM: BP 208/72 (BP Site: Right Arm, BP Position: Sitting, BP Cuff Size: Large) | Pulse 66 | Temp 35.9 C (96.7 F) | Resp 18 | Wt 87.1 kg (192 lb) | SpO2 96% | BMI 32.96 kg/m | BSA 1.98 m General: alert and no distress Neck: supple, no JVD Heart: regular rate & rhythm, no murmurs and no gallops Lungs: normal respiratory rate and rhythm, lungs clear to auscultation Abdomen: abdomen soft and non-tender Back: no costovertebral angle tenderness Extremities: no edema Neuro Exam: alert & oriented x 3 with fluent speech, no focal motor/sensory deficits Skin: skin color, texture, turgor are normal, no rashes or significant lesions BP Readings from Last 4 Encounters: 02/19/23 208/72 12/30/22 162/64 11/04/22 166/72 10/24/22 164/52 Wt Readings from Last 4 Encounters: 02/19/23 87.1 kg (192 lb) 12/30/22 87.2 kg (192 lb 4.8 oz) 11/04/22 86.8 kg (191 lb 6.4 oz) 10/24/22 86.5 kg (190 lb 11.2 oz) Estimated body mass index is 32.96 kg/m as calculated from the following: Height as of 11/04/22: 1.626 m (5' 4"). Weight as of this encounter: 87.1 kg (192 lb). NEPH-FLOW Latest Ref Rng & Units 08/02/2021 08/22/2021 10/17/2021 Bun 6 - 20 mg/dL 29 (H) 28 (H) 35 (H) Cr 0.5 - 1.0 mg/dL 1.2 (H) 1.2 (H) 1.3 (H) eGFR >=60 mL/min 46 (L) 45 (L) 41 (L) K 3.5 - 5.1 mmol/L 4.2 4.2 4.9 Hb 12 - 16 G/DL NEPH-FLOW Latest Ref Rng & Units 10/31/2021 10/31/2021 11/11/2021 Bun 6 - 20 mg/dL 29 (H) Cr 0.5 - 1.0 mg/dL 1.25 (A) 1.90 (A) 1.3 (H) eGFR >=60 mL/min 38.6 22.4 39 (L) K 3.5 - 5.1 mmol/L 4.1 4.4 4.4 Hb 12 - 16 G/DL 13.7 12.4 NEPH-FLOW Latest Ref Rng & Units 01/03/2022 01/22/2022 02/03/2022 Bun 6 - 20 mg/dL 28 (H) 42 (H) 37 (H) Cr 0.5 - 1.0 mg/dL 1.5 (H) 1.9 (H) 1.8 (H) eGFR >=60 mL/min 35 (L) 25 (L) 27 (L) K 3.5 - 5.1 mmol/L 4.7 4.4 5.0 Hb 12 - 16 G/DL Results for BERNARD TRAN ( ) as of 03/03/2022 12:24 Ref. Range 08/02/2021 15:14 Albumin / Creatinine Ratio, Urine Latest Ref Range: <30 mg/g Creat 375 (H) ALBUMIN / CREATININE RATIO, URINE Unknown Rpt (A) Latest Reference Range & Units 10/14/22 14:15 10/24/22 15:37 12/19/22 13:45 Sodium 135 - 146 mmol/L 137 137 140 Potassium 3.5 - 5.1 mmol/L 4.8 4.2 4.4 Chloride 98 - 107 mmol/L 105 105 105 CO2 22 - 32 mmol/L 19 (L) 20 (L) 21 (L) BUN 6 - 20 mg/dL 36 (H) 28 (H) 36 (H) Creatinine 0.5 - 1.0 mg/dL 1.8 (H) 1.5 (H) 1.7 (H) Estimated Glomerular Filtration Rate >=60 mL/min 26 (L) 33 (L) 28 (L) Anion Gap 7 - 15 mmol/L 13 12 14 Glucose 70 - 120 mg/dL 97 147 (H) 76 Calcium 8.4 - 10.2 mg/dL 9.6 9.9 10.1 ASSESSMENT: Stage 3b chronic kidney disease (HCC) (Primary) 88 year-old female with 30+ years diabetes and hypertension and now has 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 She has moderate proteinuria but no nephrotic syndrome. GFR has declined relatively fast in the last 2 year coinciding with multiple new medication added/increased. 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 Currently minimal edema with few times a week of Lasix No acute symptoms We explain the meaning of GFR and creatinine. Risk of ESRD still fairly low. We did discuss about renovascular scan that was done in October 2021---no need of renal artery stenting Labs done December 2022 was reviewed and shows creatinine of 1.7 GFR of 28 which is within her baselinerange Continue all medications same HTN, goal below 150/90 Hypertension management as per Cardiology. Very difficult as she constantly runs high blood pressure. Always blames this on being very worried about kidney disease and dialysis and says blood pressure is much better at home. Cardiology been managing hypertension and they are aware of this significant high blood pressure in the clinic. Follow Up: Return in about 6 months (around 08/22/2023) for Clinic Visit. | For: Clinic Visit Cornel Smith MD documented in this encounter Nursing Notes * Yeimi Mckeon RN - 02/19/2023 2:12 PM EDT Follow up visit today. No recent illness or hospital stays. Pt does monitor blood pressure at home.Cardiology aware that it runs higher . documented in this encounter Plan of Treatment Upcoming Encounters Date Type Specialty Care Team Description 02/20/2023 Office Visit Pharmacy Pharmacist1, [facility] [address] [facility] [place] [address] 04/30/2023 Office Visit Cardiology May Gipson PA-C [address] [place] [address] 04/30/2023 Laboratory Laboratory Myrna Gonzalez 200 [facility] [place] [address] 05/04/2023 Office Visit Internal Medicine Dalila Bauman MD 200 [facility] [place] [address] 05/11/2023 Office Visit Hematology Oncology Joshua Nunez MD 200 [facility] [place] [address] 06/17/2023 Office Visit Cardiology Wiliam Schroeder MD [address] [place] [address] 09/11/2023 Office Visit Nephrology Cornel Smith MD 200 [facility] [place] [address] Health Maintenance Due Date Last Done Comments [...] D LEVEL ONCE IN A LIFETIME-USE SMARTSET# [id number] Completed 12/19/2022, 03/25/2022, 11/11/2021, Additional history exists [...] this encounter Medical Devices Implanted Type Area Agricultural Pilot Device Identifier Shelf Expiration Date Model / Serial / Lot Lens Intraoc 25.0 - [id number] - [id number] Implanted:Qty: 1 on 09/03/2021 by Deon Griffin MD at OR [facility] Left: Eye [employer] 10/02/2025 [id number] / [id number] / [id number] Lens Intraoc 26.0 - [id number] - [id number] Implanted:Qty: 1 on 09/17/2021 by Deon Griffin MD at OR [facility] Right: Eye [employer] 10/03/2025 [id number] / [id number] / [id number] documented as of this encounter Visit Diagnoses Diagnosis Stage 3b chronic kidney disease (HCC)- Primary HTN, goal below 150/90 documented in this encounter Care Teams Armature Winder Repairer Relationship Specialty Start Date End Date Dalila Bauman MD [address] [place] [address], [place] [address] PCP - General Internal Medicine 01/09/21 documented as of this encounter
[2023-08-13 07:02] LABS: BUN Creatinine Ratio 25.5 (10-20); Calcium 9.8 mg/dl (8.6-10.3); Chol HDL Ratio 2.5 (0-5); Creatinine Clr Calc Pharmacy 27.2 ml/min; Est GFR (African American) 35.7 ml/min; Est GFR (Non-African American) 30.8 ml/min
[2023-08-13 07:03] LABS: Basophils # (auto) 0.05 K/uL (0.00-0.20); Basophils % (auto) 0.5 %; Eosinophils # (auto) 0.02 K/uL (0.00-0.50); Eosinophils % (auto) 0.2 %; Hemoglobin 12.4 g/dl (12.0-16.0); Immature Granulocytes # (auto) 0.03 K/uL (0.01-0.20); Immature Granulocytes % (auto) 0.3 %; Lymphocytes # (auto) 1.92 K/uL (1.20-3.40); Lymphocytes % (auto) 19.6 %; Mean Corpuscular Hemoglobin 31.6 pg (25.0-34.0); Mean Corpuscular Hgb Conc 32.6 g/dL (32.0-36.0); Mean Corpuscular Volume 96.9 fL (80.0-100.0); Monocytes # (auto) 0.69 K/uL (0.11-0.59); Neutrophils % (auto) 72.4 %; Platelet Count 262 K/uL (130-400); RDW Standard Deviation 46.7 fL (36.4-46.3); Red Blood Count 3.92 M/uL (4.20-5.40); White Blood Count 9.81 K/ul (4.8-10.8)
[2023-08-13 07:09] LABS: Troponin I High Sensitivity 36.7 pg/ml (0-14)
--- NOTE | 2023-08-13 07:19 | XRay Report ---
XR chest 1V portable HISTORY: 88 years-old Female cp acute chest pain COMPARISON: 09/02/2022 TECHNIQUE: AP view of the chest FINDINGS: Cardiac silhouette is enlarged. Atherosclerosis of the aorta. Mild chronic interstitial coarsening. N o pneumothorax, large pleural effusion, airspace consolidation or pulmonary edema. Degenerative ferguson es of the shoulders and spine. IMPRESSION: Cardiomegaly without acute process. ACT 112: Negative or not required by law. The above report was generated using voice recognition software. It may contain grammatical, syntax o r spelling errors. Electronically signed by: Deon Mercado M.D. 08/13/2023 7:18 AM
[2023-08-13] MEDS: LABETALOL HCL 100 MG TAB PO SCH (07:42)
[2023-08-13] MEDS: ISOSORBIDE DINITRATE 10 MG TAB PO SCH (07:43)
[2023-08-13 07:49] LABS: Partial Thromboplastin Ratio 1.2; Partial Thromboplastin Time 33 Seconds (21-31)
--- NOTE | 2023-08-13 08:07 | Electrocardiogram Report ---
Test Reason : Blood Pressure : / mmHG Vent. Rate : 062 BPM Atrial Rate : 062 BPM P-R Int : 190 ms QRS Dur : 086 ms QT Int : 410 ms P-R-T Axes : 051 038 045 degrees QTc Int : 416 ms Normal sinus rhythm Diffuse Minor Nonspecific ST and T wave abnormality Abnormal ECG When compared with ECG of 02-SEP-2022 20:13, T wave amplitude has decreased in Anterior leads T wave inversion no longer evident in Lateral leads Confirmed by Chris Jiang ([id number]) on 08/13/2023 8:07:20 AM Referred By: REFERRED SELF Confirmed By:Chris Jiang
--- NOTE | 2023-08-13 08:09 | Electrocardiogram Report ---
Test Reason : Blood Pressure : / mmHG Vent. Rate : 063 BPM Atrial Rate : 000 BPM P-R Int : 000 ms QRS Dur : 082 ms QT Int : 418 ms P-R-T Axes : 000 038 029 degrees QTc Int : 427 ms Sinus rhythm Nonspecific ST abnormality Lateral leads Abnormal ECG When compared with ECG of 12-AUG-2023 19:42, Nonspecific T wave abnormality no longer present Confirmed by Chris Jiang ([id number]) on 08/13/2023 8:08:43 AM Referred By: REFERRED SELF Confirmed By:Chris Jiang
[2023-08-13] MEDS ORDERED: NON-FORMULARY MEDICATION (Mv-Mn-Lutein-Zeax-Bilber-Hb277 [Macular Health Formula] 5-1-7.5 PO SCH (09:00)
[2023-08-13] MEDS: ASPIRIN 81 MG ECTAB PO SCH (10:34)
[2023-08-13] MEDS: ACETAMINOPHEN 500 MG TAB PO SCH (10:35)
[2023-08-13] MEDS: SERTRALINE HCL 50 MG TABLET PO SCH (10:36)
[2023-08-13] MEDS: LANTUS PER UNIT CHARGE SQ SCH (10:37)
[2023-08-13] MEDS: lisinopril 20 MG TAB PO SCH (10:37)
[2023-08-13] MEDS: hydrALAZINE TAB 50 MG TAB PO SCH (10:56)
--- NOTE | 2023-08-13 11:00 | Cardiology Consultation ---
Date of Consultation August 13, 2023 Assessment & Plan (1) Hypertensive urgency: (2) Elevated troponin: Plan Patient admitted for hypertensive urgency with uncontrolled HTN and CAMACHO. Negative head CT. HS troponin just minimally elevated initial at 20 and increasing to 36, cons istent with uncontrolled HTN Not indicative of ACS. No chest pain reported. No acute EKG changes. Echocardiogram is pending. HTN improving with med changes overnight. Continue oral labetalol 100 mg BID. Stop home dose metoprolol. Amlodipine added and continue 5 mg daily. Stop verapamil. Continue lisinopril 20 mg BID BP is currently controlled without her hydralazine this morning. May need to reduce dose. Home dose is 100 mg TID Continue isosorbide dinitrate 30 mg TID Will review echo when available. Otherwise I do not anticipate other cardiac testing. Monitor BP Case discussed with Dr. Billy I spent a total of 60 minutes on the date of service in preparation, delivery, and documentation of the care provided to this patient, excluding any time spent in the performance of separately billed services. May Gipson PA-C Department of Cardiology, [facility] This chart was completed in part utilizing Speech Voice Recognition Software. Grammatical errors, random word insertions, pronoun errors, and incomplete sentences are an occasional consequence of this system due to software limitations, ambient noise, and hardware issues. Any formal questions or concerns about the content, text, or information contained within the body of this dictation should be directly addressed to the provider for clarification. Supervising Physician Co-Signing Physician Notes I have reviewed the advance practitioner's documentation, and I agree with, and take responsibility for the plan of care. 88-year-old female present to the ER with uncontrolled hypertension. Denies chest pain or shortness of breath. No palpitations, lightheadedness, or dizziness currently. Reports mild lightheadedness after dose of labetalol with rapid reduction of systolic blood pressure earlier today. PE: VSS, BP trending upward. General: NAD, awake, alert, and oriented x 3. Heart: Regular rhythm, normal S1-S2. No murmur. Lungs: Clear bilateral, no rales, rhonchi, wheeze. Extremities: No edema. A/P: 88-year-old female admitted with hypertensive urgency/uncontrolled hypertension. Improvement noted with transition from metoprolol to labetalol. Consider titration of labetalol to 200 mg twice daily pending clinical response. Verapamil discontinued in favor of amlodipine. Continue other antihypertensive medications including hydralazine,lisinopril, and isosorbide dinitrate. History of Present Illness Reason for Consultation: HTN urgency Requesting Physician: Dr. Ramos Attending Physician: Dr. Billy History of Present Illness Patient is a 88 year old female, known to [facility], Dr. Schroeder. History includes: 1. Longstanding history of hypertensive heart disease/labile hypertension with past hypertensive urgency 2. Diastolic heart failure 3. CKD stage 3 4. Type 2 diabetes 5. Atherosclerotic carotid disease and renal artery stenosis - follows with vascular 6. Chronic vertigo Patient's BP is persistently elevated at clinic visits, but per patient blood pressure is typically well-controlled at home. She admits to not monitoring it closely over the last several weeks. She went to see vascular surgery yesterday and blood pressure was greater than 220/100. She was told to go home and monitor her blood pressure. Her home blood pressure cuff was not reading and due to intermittent headache and dizziness, she came to [facility] for evaluation. Blood pressure was significantly elevated on arrival reading approximately 270/90. She was treated in the ER with multiple doses of IV hydralazine and then started on labetalol. Labetalol was then transitioned to oral labetalol in place of her metoprolol. Amlodipine was also added. High-sensitivity troponin minimally elevated at 20 - 32 - 36 since admission. She noted mild back pain on arrival, but now resolved. No chest pain. No SOB. No diaphoresis. EKG on admission demonstrated normal sinus rhythm without acute ischemic changes. Head CT was also negative for acute intracranial process. With these above blood pressure medication changes, her blood pressure trended downward morning ranging 130s over 60's. Patient did report episode of dizziness after receiving labetalol after a sudden drop in her blood pressure. At time of consult, patient resting in bed comfortably. She denies acute cardiac complaints. No recurrent headache or vision changes. No chest pain. No orthopnea, PND, lower extremity edema. Allergies Allergy/AdvReac Type Severity Reaction Status Date / Time latex Allergy Severe DIFFICULTY Verified 08/12/23 21:08 BREATHING, TONGUE SWELLS Penicillins Allergy Severe DIFFICULTY Verified 08/12/23 21:08 BREATHING, TONGUE SWELLS Sulfa (Sulfonamide Allergy Severe DIFFICULTY Verified 08/12/23 21:08 Antibiotics) BREATHING, TONGUE SWELLS Home Medications Medication Instructions Recorded Confirmed Type acetaminophen 500 mg tablet 1,000 mg PO BID 10/31/21 08/12/23 History aspirin 81 mg tablet,delayed 81 mg PO QAM 10/31/21 08/12/23 History release cyanocobalamin (vitamin B-12) 1,000 mcg PO 3XWK 10/31/21 08/12/23 History 1,000 mcg tablet (Vitamin B-12) metoprolol succinate 100 mg 100 mg PO QAM 10/31/21 08/12/23 History tablet,extended release 24 hr repaglinide 2 mg tablet 2 mg PO AC 10/31/21 08/12/23 History sertraline 50 mg tablet 25 mg (1/2 x 50 mg) PO QAM #30 tabs 11/08/21 08/12/23 Rx verapamil 180 mg tablet,extended 180 mg PO QPM #30 tabs 11/08/21 08/12/23 Rx release linagliptin 5 mg tablet (Tradjenta) 5 mg PO DAILY 12/16/21 08/12/23 History loratadine 10 mg tablet 10 mg PO HS 12/16/21 08/12/23 History atorvastatin 80 mg tablet 80 mg PO HS 09/02/22 08/12/23 History empagliflozin 25 mg tablet 25 mg PO DAILY 09/02/22 08/12/23 History (Jardiance) isosorbide dinitrate 30 mg tablet 30 mg PO TID #90 tabs 09/04/22 08/12/23 Rx Prevagen 10 mg PO QPM 08/12/23 08/12/23 History coQ10 (ubiquinol) 200 mg capsule 200 mg PO DAILY 08/12/23 08/12/23 History furosemide 20 mg tablet 20 mg PO .[id number] 08/12/23 08/12/23 History hydralazine 100 mg tablet 100 mg PO TID 08/12/23 08/12/23 History insulin degludec 100 unit/mL (3 33 unit subcut QAM 08/12/23 08/12/23 History mL) subcutaneous pen (Tresiba FlexTouch U-100 insulin) insulin glargine 100 unit/mL 33 unit subcut DAILY 08/12/23 08/12/23 History subcutaneous solution (Lantus U-100 Insulin) lisinopril 20 mg tablet 20 mg PO BID 08/12/23 08/12/23 History melatonin 1 mg tablet 1 mg PO HS Sleep 08/12/23 08/12/23 History [id number] 5 mg-zeaxanth 1 cap PO QID 08/12/23 08/12/23 History 1 mg-bilberry 7.5 mg-herbal capsule ([employer] Formula) Patient History Medical History CKD (chronic kidney disease) stage 3, GFR 30-59 ml/min Anxiety Tingling Headache Hypertensive urgency Diabetes mellitus with kidney complication, without long-term current use of insulin DM2 (diabetes mellitus, type 2) H/O: HTN (hypertension) Surgical History Hx of cataract surgery Social History Smoking Status: Never smoker Second Hand Exposure: Yes; Do You Dip or Chew Tobacco: No; Hx Alcohol Use: No Hx Substance Use: No Preferred Language: Malawian Communication Ability: Effective General Clerk Required: No Beliefs That Will Affect Care: None marital status: / Current Living Situation: Alone Other Information That Helps Us Care for You: No Feels Safe at Home: Yes Safety Concerns: Feels Safe At This Time Assistive Devices: Glasses, Hearing Aid - Bilateral and Walker Review of Systems Review of Systems: All systems reviewed & are unremarkable except as noted in HPI & below Physical Exam Constitutional: WD/WN, vitals as above + not well nourished and no acute distress Neck: normal visual inspection Respiratory: normal respiratory effort, lungs clear to auscultation Auscultation: lungs clear to auscultation bilaterally; no crackles and no rales Cardiovascular: RRR, no murmur, no edema Gastrointestinal (Abdomen): normal bowel sounds, soft, nontender, no hepatosplenomegaly Neurologic: PERRL, EOMI, accommodation nl, no face palsy, no dysarthria Results & Data Vital Signs (Past 12 Hours) Vital Signs Pulse Pulse Resp BP BP Pulse Ox Pulse Ox 08/13/23 10:10 66 20 08/13/23 10:01 88 18 08/13/23 10:01 133/56 L 08/13/23 10:00 66 12 08/13/23 09:50 66 19 08/13/23 09:40 64 16 08/13/23 09:30 68 18 08/13/23 09:30 124/58 L 08/13/23 09:29 112/54 L 08/13/23 09:29 66 15 08/13/23 09:20 58 L 22 08/13/23 09:10 59 L 21 08/13/23 09:00 62 18 08/13/23 08:50 60 15 08/13/23 08:40 69 17 08/13/23 08:30 56 L 12 94 08/13/23 08:30 108/64 08/13/23 08:20 63 19 96 08/13/23 08:10 70 17 95 08/13/23 08:00 64 14 97 08/13/23 08:00 181/78 H 08/13/23 07:50 67 22 94 08/13/23 07:40 85 96 08/13/23 07:14 71 08/13/23 07:10 62 20 93 08/13/23 07:00 68 17 95 08/13/23 07:00 216/79 H 08/13/23 06:30 58 L 18 226/76 H 95 08/13/23 05:30 58 L 19 216/85 H 93 08/13/23 04:30 53 L 16 202/81 H 97 08/13/23 02:30 55 L 14 194/77 H 95 08/13/23 01:32 62 16 191/80 H 97 08/13/23 00:00 56 L 15 228/84 H 96 08/12/23 23:47 97 08/12/23 23:42 58 L 08/12/23 23:00 61 14 214/86 H 97 O2 Del Method O2 Del Method 08/13/23 10:10 08/13/23 10:01 08/13/23 10:01 08/13/23 10:00 08/13/23 09:50 08/13/23 09:40 08/13/23 09:30 08/13/23 09:30 08/13/23 09:29 08/13/23 09:29 08/13/23 09:20 08/13/23 09:10 08/13/23 09:00 08/13/23 08:50 08/13/23 08:40 08/13/23 08:30 08/13/23 08:30 08/13/23 08:20 08/13/23 08:10 08/13/23 08:00 08/13/23 08:00 08/13/23 07:50 08/13/23 07:40 08/13/23 07:14 08/13/23 07:10 08/13/23 07:00 08/13/23 07:00 08/13/23 06:30 Room Air 08/13/23 05:30 Room Air 08/13/23 04:30 Room Air 08/13/23 02:30 Room Air 08/13/23 01:32 Room Air 08/13/23 00:00 Room Air 08/12/23 23:47 Room Air 08/12/23 23:42 08/12/23 23:00 Room Air Laboratory Results Cardiac Enzymes 08/12/23 08/12/23 08/13/23 Range/Units 20:02 22:48 06:04 AST 20 (13-39) U/L Troponin I High Sens 20.0 H 32.6 H D 36.7 H (0-14) pg/ml Coagulation 08/12/23 08/13/23 Range/Units 20:02 05:53 PT 10.4 (9.0-12.0) Seconds APTT 31 33 H (21-31) Seconds Lipids 08/13/23 Range/Units 06:04 Triglycerides 117 (0-150) mg/dl Cholesterol 131 (0-200) mg/dl HDL Cholesterol 52 mg/dl Cholesterol/HDL Ratio 2.5 (0-5) CBC 08/12/23 08/13/23 Range/Units 20:02 05:53 WBC 9.25 9.81 (4.8-10.8) K/ul RBC 3.90 L 3.92 L (4.20-5.40) M/uL Hgb 12.7 12.4 (12.0-16.0) g/dl Hct 37.4 38.0 (37.0-47.0) % Plt Count 274 262 (130-400) K/uL Neut # (Auto) 5.56 7.10 H (1.40-6.50) K/uL Lymph # (Auto) 2.55 1.92 (1.20-3.40) K/uL [place] # (Auto) 1.00 H 0.69 H (0.11-0.59) K/uL Eos # (Auto) 0.06 0.02 (0.00-0.50) K/uL Baso # (Auto) 0.05 0.05 (0.00-0.20) K/uL Comprehensive Metabolic Panel 08/12/23 08/13/23 Range/Units 20:02 06:04 Sodium 136 135 L (136-145) mmol/L Potassium 3.6 4.0 (3.5-5.1) mmol/L Chloride 104 105 (98-107) mmol/L Carbon Dioxide 23 20 L (21-32) mmol/L BUN 38 H 38 H (6-23) mg/dl Creatinine 1.55 H 1.49 H (0.6-1.2) mg/dl Glucose 168 H 154 H (70-99(Fasting)) mg/dl Calcium 10.1 9.8 (8.6-10.3) mg/dl AST 20 (13-39) U/L ALT 20 (7-52) U/L Alkaline Phosphatase 47 (34-104) U/L Total Protein 8.1 (6.0-8.3) gm/dl Albumin 4.2 (3.4-5.0) gm/dl Intake and Output 08/12/23 08/13/23 08/13/23 22:59 06:59 14:59 Intake Total 100 / 449.333 349.333 / 449.333 500 / 500 Balance 100 / 449.333 349.333 / 449.333 500 / 500 Intake: IV 100 / 449.333 349.333 / 449.333 500 / 500 Acetaminophen 1,000 mg In 100 100 / 100 ml @ 400 mls/hr IV NOW STA Rx#: [id number] Sodium Chloride 0.9% 500 ml @ 349.333 / 349.333 500 / 500 40 mls/hr IV .[id number] STA Rx#: [id number] Other: Weight 89.5 kg Weight Measurement Method Built in [facility] Diagnostic Findings Telemetry reviewed: Sinus bradycardia in the 50s. No pauses. EKG reviewed from 08/12/2023 on admission: Normal sinus rhythm at [address]-T wave changes EKG reviewed from this morning dated 08/13/2023: Normal sinus rhythm, no acute changes Chest x-ray without acute findings Head CT without acute findings Medications Administered Current Inpatient Medications Acetaminophen (Acetaminophen 500 Mg Tab) 1,000 mg PO BID LUCAS Stop: 09/12/23 08:59 Last Admin: 08/13/23 10:35 Dose: 1,000 mg Acetaminophen (Acetaminophen 325 Mg Tab) 650 mg PO Q4H PRN PRN Reason: Pain or Fever Stop: 09/11/23 23:46 Amlodipine Besylate (Amlodipine Besylate 5 Mg Tab) 5 mg PO DAILY LUCAS Stop: 09/13/23 08:59 Aspirin (Aspirin 81 Mg Ectab) 81 mg PO QAM LUCAS Stop: 09/12/23 08:59 Last Admin: 08/13/23 10:34 Dose: 81 mg Atorvastatin Calcium (Atorvastatin 40 Mg Tab) 80 mg PO HS LUCAS Stop: 09/12/23 20:59 Dextrose (Dextrose 50% 50 Ml Syringe) 25 - 50 ml IV UD PRN; Protocol PRN Reason: Hypoglycemia Protocol Stop: 09/11/23 23:46 Glucagon (Glucagon For Inj 1 Mg Vial) 1 mg SQ UD PRN; Protocol PRN Reason: Hypoglycemia Protocol Stop: 09/11/23 23:46 Glucose (Glucose 10 Tab/Tube) 4 - 8 tab PO UD PRN; Protocol PRN Reason: Hypoglycemia Treatment Stop: 09/11/23 23:46 Glucose (Glucose 40% Gel 15 Gm Tube) 15 - 30 gm PO UD PRN; Protocol PRN Reason: Hypoglycemia Protocol Stop: 09/11/23 23:46 Heparin Sodium (Porcine) (Heparin Sod 5,000 Unit/0.5 Ml Vial) 5,000 units SQ Q8 LUCAS Stop: 09/12/23 05:59 Last Admin: 08/13/23 06:05 Dose: 5,000 units Hydralazine HCl (Hydralazine Tab 50 Mg Tab) 100 mg PO TID LUCAS Stop: 09/12/23 08:59 Last Admin: 08/13/23 10:56 Dose: Not Given Hydromorphone HCl (Hydromorphone Inj 0.5 Mg/0.5 Ml Syr) 0.5 mg IV Q6H PRN PRN Reason: Pain Stop: 08/26/23 21:34 Promethazine HCl 6.25 mg/ (Sodium Chloride) 50.25 mls @ 201 mls/hr IV Q6H PRN PRN Reason: Nausea And Vomiting Stop: 09/11/23 21:34 Insulin Aspart (Insulin Aspart Per Unit Charge) 0 units SC Q6 LUCAS Stop: 09/12/23 00:00 Last Admin: 08/13/23 06:14 Dose: Not Given Insulin Glargine (Lantus Per Unit Charge) 5 units SQ DAILY LUCAS Stop: 09/12/23 08:59 Last Admin: 08/13/23 10:37 Dose: 5 units Isosorbide Dinitrate (Isosorbide Dinitrate 10 Mg Tab) 30 mg PO 0700,1200,1700 [facility] Stop: 09/12/23 06:59 Last Admin: 08/13/23 07:43 Dose: 30 mg Labetalol HCl (Labetalol Hcl 100 Mg Tab) 100 mg PO BID [facility] Stop: 09/12/23 08:59 Last Admin: 08/13/23 07:42 Dose: 100 mg Lisinopril (Lisinopril 20 Mg Tab) 20 mg PO BID [facility] Stop: 09/12/23 08:59 Last Admin: 08/13/23 10:37 Dose: 20 mg Loratadine (Loratadine 10 Mg Tab) 10 mg PO HS [facility] Stop: 09/11/23 23:46 Last Admin: 08/13/23 00:52 Dose: 10 mg Lorazepam (Lorazepam 0.5 Mg Tab) 0.5 mg PO TID PRN PRN Reason: Anxiety Stop: 09/11/23 21:34 Miscellaneous (Carbohydrates For Hypoglycemia ) 15 - 30 gm PO UD PRN PRN Reason: Hypoglycemia Protocol Stop: 09/11/23 23:46 Nitroglycerin (Nitroglycerin Sl 0.4 Mg/Tab Tab) 0.4 mg SL Q5M PRN PRN Reason: Chest Pain Stop: 09/11/23 23:46 Oxycodone HCl (Oxycodone Hcl Ir 5 Mg Tab (Immediate Release)) 5 mg PO Q4H PRN PRN Reason: Pain Stop: 08/26/23 21:34 Sertraline HCl (Sertraline Hcl 50 Mg Tablet) 25 mg PO QAM [facility] Stop: 09/12/23 08:59 Last Admin: 08/13/23 10:36 Dose: 25 mg
--- NOTE | 2023-08-13 11:29 | Hospitalist Progress Note ---
Date of Service August 13, 2023 Assessment & Plan (1) Hypertensive crisis: Plan: History labile hypertension Suboptimal BP control at baseline over the last 6 months Chest pain secondary to above Rule out ACS given troponin elevation chronic diastolic heart failure (EF 70%, TTE 2021), patient euvolemic hx PVD hyperlipidemia on statin Rx PCU Options somewhat limited given episodic bradycardia Change patient's Toprol-XL to labetalol Add amlodipine (dihydropyridine CCB) to patient's verapamil (nondihydropyridine CCB) Aspirin for CAD prevention Follow troponin TTE if with progression Cardiology consult Re: Hypertensive crisis, chest pain Per cardiology - HTN improving with med changes overnight. Continue oral labetalol 100 mg BID. Stop home dose metoprolol. Amlodipine added and continue 5 mg daily. Stop verapamil. Continue lisinopril 20 mg BID BP is currently controlled without her hydralazine this morning. May need to reduce dose. Home dose is 100 mg TID Continue isosorbide dinitrate 30 mg TID Will review echo when available. Otherwise I do not anticipate other cardiac testing. DM 2, insulin requiring, well-controlled as of recent hemoglobin A1c of 6.05 April 2023 Basal bolus insulin adjusted for n.p.o. status, ISS BG goal 110-140 CRI, creatinine at baseline DVT prophylaxis. Heparin subcu Full code Admission and Anticipated Discharge Date Admission Date: August 12, 2023 Subjective Pt seen in follow up of uncontrolled hypertension Was seen by her vasc. surgeon yesterday where she was found to have elev. BP This AM SBP in 200s, gave PO labetalol which decreased her BP quite a bit - holding any other AM meds and discussing w/ cardiology at the bedside Currently pt is sitting up in bed in NAD. She is awake, alert, oriented. Denies any headache or chest pain. No nausea. No vision changes, No fever, chills, abd. pain. Review of Systems Review of Systems: All systems reviewed & are unremarkable except as noted in Subjective Physical Exam Physical Exam: GENERAL: WD/WN elderly F in NAD SKIN: Normal color, warm HEENT: [place] palpebral conjunctivae NECK : Supple CHEST : CTA, no tenderness HEART : rrr, no obvious murmurs ABDOMEN: soft, positive bowel sounds, nontender EXTREMITIES : Minimal LE swelling, no LE tenderness, moves extremities NEUROLOGIC : Coherent, no facial asymmetry, speech fluent, moves extremities Results & Data Results & Data Vital Signs (Past 12 Hours) Vital Signs Pulse Pulse Resp BP BP Pulse Ox Pulse Ox 08/13/23 10:10 66 20 08/13/23 10:01 88 18 08/13/23 10:01 133/56 L 08/13/23 10:00 66 12 08/13/23 09:50 66 19 08/13/23 09:40 64 16 08/13/23 09:30 68 18 08/13/23 09:30 124/58 L 08/13/23 09:29 112/54 L 08/13/23 09:29 66 15 08/13/23 09:20 58 L 22 08/13/23 09:10 59 L 21 08/13/23 09:00 62 18 08/13/23 08:50 60 15 08/13/23 08:40 69 17 08/13/23 08:30 56 L 12 94 08/13/23 08:30 108/64 08/13/23 08:20 63 19 96 08/13/23 08:10 70 17 95 08/13/23 08:00 64 14 97 08/13/23 08:00 181/78 H 08/13/23 07:50 67 22 94 08/13/23 07:40 85 96 08/13/23 07:14 71 08/13/23 07:10 62 20 93 08/13/23 07:00 68 17 95 08/13/23 07:00 216/79 H 08/13/23 06:30 58 L 18 226/76 H 95 08/13/23 05:30 58 L 19 216/85 H 93 08/13/23 04:30 53 L 16 202/81 H 97 08/13/23 02:30 55 L 14 194/77 H 95 08/13/23 01:32 62 16 191/80 H 97 08/13/23 00:00 56 L 15 228/84 H 96 08/12/23 23:47 97 08/12/23 23:42 58 L O2 Del Method O2 Del Method 08/13/23 10:10 08/13/23 10:01 08/13/23 10:01 08/13/23 10:00 08/13/23 09:50 08/13/23 09:40 08/13/23 09:30 08/13/23 09:30 08/13/23 09:29 08/13/23 09:29 08/13/23 09:20 08/13/23 09:10 08/13/23 09:00 08/13/23 08:50 08/13/23 08:40 08/13/23 08:30 08/13/23 08:30 08/13/23 08:20 08/13/23 08:10 08/13/23 08:00 08/13/23 08:00 08/13/23 07:50 08/13/23 07:40 08/13/23 07:14 08/13/23 07:10 08/13/23 07:00 08/13/23 07:00 08/13/23 06:30 Room Air 08/13/23 05:30 Room Air 08/13/23 04:30 Room Air 08/13/23 02:30 Room Air 08/13/23 01:32 Room Air 08/13/23 00:00 Room Air 08/12/23 23:47 Room Air 08/12/23 23:42 Laboratory Results 08/13/23 08/13/23 08/13/23 Range/Units 08:50 06:04 05:53 WBC 9.81 (4.8-10.8) K/ul RBC 3.92 L (4.20-5.40) M/uL Hgb 12.4 (12.0-16.0) g/dl Hct 38.0 (37.0-47.0) % MCV 96.9 (80.0-100.0) fL MCH 31.6 (25.0-34.0) pg MCHC 32.6 (32.0-36.0) g/dL RDW Std Deviation 46.7 H (36.4-46.3) fL RDW Coeff of Rojelio 13.0 (11.5-14.5) % Plt Count 262 (130-400) K/uL MPV 10.0 (9.4-12.4) fL Immature Gran % (Auto) 0.3 % Neut % (Auto) 72.4 % Lymph % (Auto) 19.6 % [place] % (Auto) 7.0 % Eos % (Auto) 0.2 % Baso % (Auto) 0.5 % Neut # (Auto) 7.10 H (1.40-6.50) K/uL Lymph # (Auto) 1.92 (1.20-3.40) K/uL [place] # (Auto) 0.69 H (0.11-0.59) K/uL Eos # (Auto) 0.02 (0.00-0.50) K/uL Baso # (Auto) 0.05 (0.00-0.20) K/uL Immature Gran # (Auto) 0.03 (0.01-0.20) K/uL PT (9.0-12.0) Seconds INR (0.9-1.1) APTT 33 H (21-31) Seconds PTT Ratio 1.2 Sodium 135 L (136-145) mmol/L Potassium 4.0 (3.5-5.1) mmol/L Chloride 105 (98-107) mmol/L Carbon Dioxide 20 L (21-32) mmol/L Anion Gap 10 (3-11) BUN 38 H (6-23) mg/dl Creatinine 1.49 H (0.6-1.2) mg/dl Est Cr Clr Drug Dosing 27.2 ml/min Est GFR ( Amer) 35.7 ml/min Est GFR (Non-Af Amer) 30.8 ml/min BUN/Creatinine Ratio 25.5 H (10-20) Glucose 154 H (70-99(Fasting)) mg/dl POC Glucose 195 H (70-99) mg/dl Calcium 9.8 (8.6-10.3) mg/dl Magnesium (1.7-2.4) mg/dl Total Bilirubin (0.2-1.0) mg/dl AST (13-39) U/L ALT (7-52) U/L Alkaline Phosphatase (34-104) U/L Troponin I High Sens 36.7 H (0-14) pg/ml Total Protein (6.0-8.3) gm/dl Albumin (3.4-5.0) gm/dl Globulin (2.5-4.0) gm/dl Albumin/Globulin Ratio (0.9-2) Triglycerides 117 (0-150) mg/dl Cholesterol 131 (0-200) mg/dl LDL Cholesterol, Calc 56 mg/dl VLDL Cholesterol, Calc 23 (0-30) mg/dl HDL Cholesterol 52 mg/dl Cholesterol/HDL Ratio 2.5 (0-5) Lipase (11-82) U/L TSH (0.300-4.500) uIu/ml 08/13/23 08/13/23 08/12/23 Range/Units 05:42 00:14 22:48 WBC (4.8-10.8) K/ul RBC (4.20-5.40) M/uL Hgb (12.0-16.0) g/dl Hct (37.0-47.0) % MCV (80.0-100.0) fL MCH (25.0-34.0) pg MCHC (32.0-36.0) g/dL RDW Std Deviation (36.4-46.3) fL RDW Coeff of Rojelio (11.5-14.5) % Plt Count (130-400) K/uL MPV (9.4-12.4) fL Immature Gran % (Auto) % Neut % (Auto) % Lymph % (Auto) % [place] % (Auto) % Eos % (Auto) % Baso % (Auto) % Neut # (Auto) (1.40-6.50) K/uL Lymph # (Auto) (1.20-3.40) K/uL [place] # (Auto) (0.11-0.59) K/uL Eos # (Auto) (0.00-0.50) K/uL Baso # (Auto) (0.00-0.20) K/uL Immature Gran # (Auto) (0.01-0.20) K/uL PT (9.0-12.0) Seconds INR (0.9-1.1) APTT (21-31) Seconds PTT Ratio Sodium (136-145) mmol/L Potassium (3.5-5.1) mmol/L Chloride (98-107) mmol/L Carbon Dioxide (21-32) mmol/L Anion Gap (3-11) BUN (6-23) mg/dl Creatinine (0.6-1.2) mg/dl Est Cr Clr Drug Dosing ml/min Est GFR ( Amer) ml/min Est GFR (Non-Af Amer) ml/min BUN/Creatinine Ratio (10-20) Glucose (70-99(Fasting)) mg/dl POC Glucose 162 H 183 H (70-99) mg/dl Calcium (8.6-10.3) mg/dl Magnesium (1.7-2.4) mg/dl Total Bilirubin (0.2-1.0) mg/dl AST (13-39) U/L ALT (7-52) U/L Alkaline Phosphatase (34-104) U/L Troponin I High Sens 32.6 H D (0-14) pg/ml Total Protein (6.0-8.3) gm/dl Albumin (3.4-5.0) gm/dl Globulin (2.5-4.0) gm/dl Albumin/Globulin Ratio (0.9-2) Triglycerides (0-150) mg/dl Cholesterol (0-200) mg/dl LDL Cholesterol, Calc mg/dl VLDL Cholesterol, Calc (0-30) mg/dl HDL Cholesterol mg/dl Cholesterol/HDL Ratio (0-5) Lipase (11-82) U/L TSH (0.300-4.500) uIu/ml 08/12/23 08/12/23 Range/Units 20:02 19:37 WBC 9.25 (4.8-10.8) K/ul RBC 3.90 L (4.20-5.40) M/uL Hgb 12.7 (12.0-16.0) g/dl Hct 37.4 (37.0-47.0) % MCV 95.9 (80.0-100.0) fL MCH 32.6 (25.0-34.0) pg MCHC 34.0 (32.0-36.0) g/dL RDW Std Deviation 45.3 (36.4-46.3) fL RDW Coeff of Rojelio 12.9 (11.5-14.5) % Plt Count 274 (130-400) K/uL MPV 9.8 (9.4-12.4) fL Immature Gran % (Auto) 0.3 % Neut % (Auto) 60.2 % Lymph % (Auto) 27.6 % [place] % (Auto) 10.8 % Eos % (Auto) 0.6 % Baso % (Auto) 0.5 % Neut # (Auto) 5.56 (1.40-6.50) K/uL Lymph # (Auto) 2.55 (1.20-3.40) K/uL [place] # (Auto) 1.00 H (0.11-0.59) K/uL Eos # (Auto) 0.06 (0.00-0.50) K/uL Baso # (Auto) 0.05 (0.00-0.20) K/uL Immature Gran # (Auto) 0.03 (0.01-0.20) K/uL PT 10.4 (9.0-12.0) Seconds INR 0.9 (0.9-1.1) APTT 31 (21-31) Seconds PTT Ratio 1.1 Sodium 136 (136-145) mmol/L Potassium 3.6 (3.5-5.1) mmol/L Chloride 104 (98-107) mmol/L Carbon Dioxide 23 (21-32) mmol/L Anion Gap 9 (3-11) BUN 38 H (6-23) mg/dl Creatinine 1.55 H (0.6-1.2) mg/dl Est Cr Clr Drug Dosing 26.1 ml/min Est GFR ( Amer) 34.1 ml/min Est GFR (Non-Af Amer) 29.4 ml/min BUN/Creatinine Ratio 24.5 H (10-20) Glucose 168 H (70-99(Fasting)) mg/dl POC Glucose 158 H (70-99) mg/dl Calcium 10.1 (8.6-10.3) mg/dl Magnesium 1.7 (1.7-2.4) mg/dl Total Bilirubin 0.4 (0.2-1.0) mg/dl AST 20 (13-39) U/L ALT 20 (7-52) U/L Alkaline Phosphatase 47 (34-104) U/L Troponin I High Sens 20.0 H (0-14) pg/ml Total Protein 8.1 (6.0-8.3) gm/dl Albumin 4.2 (3.4-5.0) gm/dl Globulin 3.9 (2.5-4.0) gm/dl Albumin/Globulin Ratio 1.1 (0.9-2) Triglycerides (0-150) mg/dl Cholesterol (0-200) mg/dl LDL Cholesterol, Calc mg/dl VLDL Cholesterol, Calc (0-30) mg/dl HDL Cholesterol mg/dl Cholesterol/HDL Ratio (0-5) Lipase 31 (11-82) U/L TSH 2.651 (0.300-4.500) uIu/ml Medications Administered Current Inpatient Medications Acetaminophen (Acetaminophen 500 Mg Tab) 1,000 mg PO BID [facility] Stop: 09/12/23 08:59 Last Admin: 08/13/23 10:35 Dose: 1,000 mg Acetaminophen (Acetaminophen 325 Mg Tab) 650 mg PO Q4H PRN PRN Reason: Pain or Fever Stop: 09/11/23 23:46 Amlodipine Besylate (Amlodipine Besylate 5 Mg Tab) 5 mg PO DAILY [facility] Stop: 09/13/23 08:59 Aspirin (Aspirin 81 Mg Ectab) 81 mg PO QAM [facility] Stop: 09/12/23 08:59 Last Admin: 08/13/23 10:34 Dose: 81 mg Atorvastatin Calcium (Atorvastatin 40 Mg Tab) 80 mg PO HS [facility] Stop: 09/12/23 20:59 Calcium Carbonate (Calcium Carbonate 500 Mg Chewable Tab) 500 mg PO TID PRN PRN Reason: Indigestion Stop: 09/12/23 11:26 Dextrose (Dextrose 50% 50 Ml Syringe) 25 - 50 ml IV UD PRN; Protocol PRN Reason: Hypoglycemia Protocol Stop: 09/11/23 23:46 Glucagon (Glucagon For Inj 1 Mg Vial) 1 mg SQ UD PRN; Protocol PRN Reason: Hypoglycemia Protocol Stop: 09/11/23 23:46 Glucose (Glucose 10 Tab/Tube) 4 - 8 tab PO UD PRN; Protocol PRN Reason: Hypoglycemia Treatment Stop: 09/11/23 23:46 Glucose (Glucose 40% Gel 15 Gm Tube) 15 - 30 gm PO UD PRN; Protocol PRN Reason: Hypoglycemia Protocol Stop: 09/11/23 23:46 Heparin Sodium (Porcine) (Heparin Sod 5,000 Unit/0.5 Ml Vial) 5,000 units SQ Q8 [facility] Stop: 09/12/23 05:59 Last Admin: 08/13/23 06:05 Dose: 5,000 units Hydralazine HCl (Hydralazine Tab 50 Mg Tab) 100 mg PO TID [facility] Stop: 09/12/23 08:59 Last Admin: 08/13/23 10:56 Dose: Not Given Hydromorphone HCl (Hydromorphone Inj 0.5 Mg/0.5 Ml Syr) 0.5 mg IV Q6H PRN PRN Reason: Pain Stop: 08/26/23 21:34 Promethazine HCl 6.25 mg/ (Sodium Chloride) 50.25 mls @ 201 mls/hr IV Q6H PRN PRN Reason: Nausea And Vomiting Stop: 09/11/23 21:34 Insulin Aspart (Insulin Aspart Per Unit Charge) 0 units SC Q6 [facility] Stop: 09/12/23 00:00 Last Admin: 08/13/23 06:14 Dose: Not Given Insulin Glargine (Lantus Per Unit Charge) 5 units SQ DAILY [facility] Stop: 09/12/23 08:59 Last Admin: 08/13/23 10:37 Dose: 5 units Isosorbide Dinitrate (Isosorbide Dinitrate 10 Mg Tab) 30 mg PO 0700,1200,1700 [facility] Stop: 09/12/23 06:59 Last Admin: 08/13/23 07:43 Dose: 30 mg Labetalol HCl (Labetalol Hcl 100 Mg Tab) 100 mg PO BID [facility] Stop: 09/12/23 08:59 Last Admin: 08/13/23 07:42 Dose: 100 mg Lisinopril (Lisinopril 20 Mg Tab) 20 mg PO BID [facility] Stop: 09/12/23 08:59 Last Admin: 08/13/23 10:37 Dose: 20 mg Loratadine (Loratadine 10 Mg Tab) 10 mg PO HS [facility] Stop: 09/11/23 23:46 Last Admin: 08/13/23 00:52 Dose: 10 mg Lorazepam (Lorazepam 0.5 Mg Tab) 0.5 mg PO TID PRN PRN Reason: Anxiety Stop: 09/11/23 21:34 Miscellaneous (Carbohydrates For Hypoglycemia ) 15 - 30 gm PO UD PRN PRN Reason: Hypoglycemia Protocol Stop: 09/11/23 23:46 Nitroglycerin (Nitroglycerin Sl 0.4 Mg/Tab Tab) 0.4 mg SL Q5M PRN PRN Reason: Chest Pain Stop: 09/11/23 23:46 Oxycodone HCl (Oxycodone Hcl Ir 5 Mg Tab (Immediate Release)) 5 mg PO Q4H PRN PRN Reason: Pain Stop: 08/26/23 21:34 Sertraline HCl (Sertraline Hcl 50 Mg Tablet) 25 mg PO QAM [facility] Stop: 09/12/23 08:59 Last Admin: 08/13/23 10:36 Dose: 25 mg
[2023-08-13] MEDS: CALCIUM CARBONATE 500 MG CHEWABLE TAB PO PRN (12:46)
[2023-08-13] MEDS: ATORVASTATIN 40 MG TAB PO SCH (20:44)
[2023-08-13] MEDS: LANTUS PER UNIT CHARGE SQ STA (20:55)
[2023-08-13] MEDS ORDERED: NON-FORMULARY MEDICATION (Prevagen 10 MG) PO SCH (21:00)
[2023-08-13] MEDS ORDERED: amLODIPine BESYLATE 5 MG TAB PO SCH (21:00)
[2023-08-13] MEDS ORDERED: VERAPAMIL HCL 180 MG TABCR PO SCH (21:00)
[2023-08-14 05:09] LABS: Hematocrit (blood only) 30.8 % (37.0-47.0); Hemoglobin 10.4 g/dl (12.0-16.0); Mean Corpuscular Hgb Conc 33.8 g/dL (32.0-36.0); Mean Corpuscular Volume 94.8 fL (80.0-100.0); Platelet Count 220 K/uL (130-400); RDW Standard Deviation 45.1 fL (36.4-46.3); Red Blood Count 3.25 M/uL (4.20-5.40); White Blood Count 7.37 K/ul (4.8-10.8)
[2023-08-14 05:26] LABS: BUN Creatinine Ratio 25.4 (10-20); Calcium 9.2 mg/dl (8.6-10.3); Creatinine Clr Calc Pharmacy 17.6 ml/min; Est GFR (African American) 21.4 ml/min; Est GFR (Non-African American) 18.4 ml/min; Magnesium 1.7 mg/dl (1.7-2.4); Phosphorus 3.4 mg/dl (2.5-4.9); Potassium 3.7 mmol/L (3.5-5.1)
--- NOTE | 2023-08-14 08:59 | Nephrology Consultation ---
Date of Consultation August 14, 2023 Assessment & Plan (1) JOSE (acute kidney injury): in elderly female with Sig vascular disease sudden change in BP is enough to cause JOSE. Most likely related to hemodynamic changes and change in renal perfusion. Agree with holding Lisinopril for now. Sometime could get a significant ATN also if BP drop was severe enough.--time will tell. if this happens creat will rise even higher in the coming days for now Accept BP < 160/100. Dont aim for lower than that. Other meds are fine. No need of Iv fluids though. 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 Current creat is worse than usual (3) Hypertensive crisis: Not entirely clear why her BP is all over the place. At home she also gets verapamil and lasix it seems. at this time BP is at acceptable goal. verapamil as per cards. Hold lasix for now given JOSE. Plan Cardiology, H and P and notes from [employer] [facility] [place] reviewed in detail. 55 mins spent in total care History of Present Illness Attending Physician: Masoud King MD History of Present Illness 88/F CKD 3b/4-baseline creat in the mid to high 1's, longstanding history of hypertensive heart disease/labile hypertension with past hypertensive urgency , Diastolic heart failure,Type 2 diabetes ,carotid disease and renal artery stenosis - follows with vascular, Chronic vertigo. Patient's BP is persistently elevated at clinic visits, but per patient blood pressure is typically well-controlled at home. Admitted to [facility] since 08/12/2023 for HTN urgency. Blood pressure was significantly elevated on arrival reading approximately 270/90. She was treated in the ER with multiple doses of IV hydralazine and then started on labetalol. Labetalol was then transitioned to oral labetalol in place of her metoprolol. Amlodipine was also added. Creat was baseline but has gone up to 2.28 today and that led to consult. baseline creat 1.5 on admission. BP has dropped quite fast and even had Symptoms of that. Now is 151/68. Lisinopril held from this AM. ROS-- was having headache and some vertigo/lightheadedness. otherwise 12 systems reviewed and negative. Physical Exam Constitutional: Awake and alert. no acute distress Neck: Supple. no JVD Respiratory: normal respiratory effort, lungs clear to auscultation Auscultation: lungs clear to auscultation bilaterally; no crackles and no rales Cardiovascular: RRR, no murmur, no edema Gastrointestinal (Abdomen): normal bowel sounds, soft, nontender, no hepatosplenomegaly Neurologic: PERRL, EOMI, accommodation nl, no face palsy, no dysarthria Allergies Allergy/AdvReac Type Severity Reaction Status Date / Time latex Allergy Severe DIFFICULTY Verified 08/12/23 21:08 BREATHING, TONGUE SWELLS Penicillins Allergy Severe DIFFICULTY Verified 08/12/23 21:08 BREATHING, TONGUE SWELLS Sulfa (Sulfonamide Allergy Severe DIFFICULTY Verified 08/12/23 21:08 Antibiotics) BREATHING, TONGUE SWELLS Home Medications Medication Instructions Recorded Confirmed Type acetaminophen 500 mg tablet 1,000 mg PO BID 10/31/21 08/12/23 History aspirin 81 mg tablet,delayed 81 mg PO QAM 10/31/21 08/12/23 History release cyanocobalamin (vitamin B-12) 1,000 mcg PO [id number] 10/31/21 08/12/23 History 1,000 mcg tablet (Vitamin B-12) metoprolol succinate 100 mg 100 mg PO QAM 10/31/21 08/12/23 History tablet,extended release 24 hr repaglinide 2 mg tablet 2 mg PO AC 10/31/21 08/12/23 History sertraline 50 mg tablet 25 mg (1/2 x 50 mg) PO QAM #30 tabs 11/08/21 08/12/23 Rx verapamil 180 mg tablet,extended 180 mg PO QPM #30 tabs 11/08/21 08/12/23 Rx release linagliptin 5 mg tablet (Tradjenta) 5 mg PO DAILY 12/16/21 08/12/23 History loratadine 10 mg tablet 10 mg PO HS 12/16/21 08/12/23 History atorvastatin 80 mg tablet 80 mg PO HS 09/02/22 08/12/23 History empagliflozin 25 mg tablet 25 mg PO DAILY 09/02/22 08/12/23 History (Jardiance) isosorbide dinitrate 30 mg tablet 30 mg PO TID #90 tabs 09/04/22 08/12/23 Rx Prevagen 10 mg PO QPM 08/12/23 08/12/23 History coQ10 (ubiquinol) 200 mg capsule 200 mg PO DAILY 08/12/23 08/12/23 History furosemide 20 mg tablet 20 mg PO .[id number] 08/12/23 08/12/23 History hydralazine 100 mg tablet 100 mg PO TID 08/12/23 08/12/23 History insulin degludec 100 unit/mL (3 33 unit subcut QAM 08/12/23 08/12/23 History mL) subcutaneous pen (Tresiba FlexTouch U-100 insulin) insulin glargine 100 unit/mL 33 unit subcut DAILY 08/12/23 08/12/23 History subcutaneous solution (Lantus U-100 Insulin) lisinopril 20 mg tablet 20 mg PO BID 08/12/23 08/12/23 History melatonin 1 mg tablet 1 mg PO HS Sleep 08/12/23 08/12/23 History byiqzozk-yoe-facvtb 5 mg-zeaxanth 1 cap PO QID 08/12/23 08/12/23 History 1 mg-bilberry 7.5 mg-herbal capsule (Macular Health Formula) Patient History Medical History CKD (chronic kidney disease) stage 3, GFR 30-59 ml/min Anxiety Tingling Headache Hypertensive urgency Diabetes mellitus with kidney complication, without long-term current use of insulin DM2 (diabetes mellitus, type 2) H/O: HTN (hypertension) Surgical History Hx of cataract surgery Social History Smoking Status: Never smoker Second Hand Exposure: Yes; Do You Dip or Chew Tobacco: No; Hx Alcohol Use: No Hx Substance Use: No Preferred Language: Afghan Communication Ability: Effective Laundry Aide Required: No Beliefs That Will Affect Care: None marital status: / Current Living Situation: Alone Other Information That Helps Us Care for You: No Feels Safe at Home: Yes Safety Concerns: Feels Safe At This Time Assistive Devices: Glasses, Hearing Aid - Bilateral and Walker Results & Data Vital Signs (Past 12 Hours) Vital Signs Temp Pulse Pulse Resp BP Pulse Ox Pulse Ox 08/14/23 02:47 36.7 C 80 18 151/68 H 95 08/13/23 23:47 96 08/13/23 23:22 36.5 C 86 18 150/70 H 96 08/13/23 22:59 80 O2 Del Method O2 Del Method 08/14/23 02:47 Room Air 08/13/23 23:47 Room Air 08/13/23 23:22 Room Air 08/13/23 22:59
[2023-08-14] MEDS ORDERED: LANTUS PER UNIT CHARGE SQ SCH (09:00)
[2023-08-14] MEDS ORDERED: PHARMACY GLYCEMIC MGMT CONSULT PRN (09:07)
[2023-08-14] MEDS: amLODIPine BESYLATE 5 MG TAB PO SCH (09:28)
[2023-08-14] MEDS: LANTUS PER UNIT CHARGE SQ SCH (09:48)
--- NOTE | 2023-08-14 11:00 | Cardiology Progress Note ---
Date of Service August 14, 2023 Assessment & Plan (1) Hypertensive urgency: (2) Elevated troponin: (3) JOSE (acute kidney injury): Plan Patient admitted for hypertensive urgency with uncontrolled HTN and CAMACHO. Negative head CT. HS troponin just minimally elevated initial at 20 and increasing to 36, consistent with uncontrolled HTN Not indicative of ACS. No chest pain reported. No acute EKG changes. Echocardiogram is pending. HTN improving with med changes overnight. Continue oral labetalol 100 mg BID. Stop home dose metoprolol. Amlodipine added and continue 5 mg daily. Stop verapamil. Continue lisinopril 20 mg BID BP is currently controlled without her hydralazine this morning. May need to reduce dose. Home dose is 100 mg TID Continue isosorbide dinitrate 30 mg TID 08/14/23: BP improved from admission with med adjustments. Unfortunately creatinine trending higher this morning. Nephrology consulted. Holding lisinopril and lasix. BP acceptable if < 160/100. Continue labetalol 100 mg BID and titrate as needed. Home dose metoprolol discontinued Amlodipine initiated and Verapamil discontinued. Continue hydralazine and Isordil. Echo ordered and results pending. If unremarkable, no further cardiac testing warranted. Case discussed with Dr. Billy I spent a total of 30 minutes on the date of service in preparation, delivery, and documentation of the care provided to this patient, excluding any time spent in the performance of separately billed services. May Gipson PA-C Department of Cardiology, [facility] This chart was completed in part utilizing Speech Voice Recognition Software. Grammatical errors, random word insertions, pronoun errors, and incomplete sentences are an occasional consequence of this system due to software limitations, ambient noise, and hardware issues. Any formal questions or concerns about the content, text, or information contained within the body of this dictation should be directly addressed to the provider for clarification. Admission and Anticipated Discharge Date Admission Date: August 12, 2023 Supervising Physician Co-Signing Physician Notes I have reviewed the advance practitioner's documentation, and I agree with, and take responsibility for the plan of care. 88-year-old female present to the ER with uncontrolled hypertension. Feeling better today. Blood pressure control improved. Denies chest pain or shortness of breath. No palpitations, lightheadedness, or dizziness currently. Elevated creatinine noted. PE: VSS, BP trending upward. General: NAD, awake, alert, and oriented x 3. Heart: Regular rhythm, normal S1-S2. No murmur. Lungs: Clear bilateral, no rales, rhonchi, wheeze. Extremities: No edema. A/P: 88-year-old female admitted with hypertensive urgency/uncontrolled hypertension. Improvement noted with transition from metoprolol to labetalol. Verapamil discontinued in favor of amlodipine. Continue other antihypertensive medications including hydralazine,lisinopril, and isosorbide dinitrate. Creatinine mildly elevated from baseline today. She will remain hospitalized for an additional 24 hours with repeat lab testing in AM. No further cardiac testing or intervention recommended at this time. Cardiology will sign off. Please call with any additional concerns/questions. I spent a total of 20 minutes on the date of service in preparation, delivery, and documentation of the care provided to this patient, excluding any time spent in the performance of separately billed services. Subjective Patient resting in bed. Feeling "great". No recurrent headache or dizziness. Tolerating med changes. Unfortunately her creatinine sarahy to 2.28 overnight. Possibly due to sudden drop in BP yesterday? Nephrology consulted. Lasix and lisinopril now on hold. BP acceptable. Per nephrology, accept BP < 160/100. No chest pain, SOB Review of Systems Review of Systems: All systems reviewed & are unremarkable except as noted in HPI & below Physical Exam Constitutional: WD/WN, vitals as above + not well nourished and no acute distress Neck: normal visual inspection Respiratory: normal respiratory effort, lungs clear to auscultation Auscultation: lungs clear to auscultation bilaterally; no crackles and no rales Cardiovascular: RRR, no murmur, no edema Gastrointestinal (Abdomen): normal bowel sounds, soft, nontender, no hepatosplenomegaly Neurologic: PERRL, EOMI, accommodation nl, no face palsy, no dysarthria Results & Data Vital Signs (Past 12 Hours) Vital Signs Temp Pulse Pulse Resp BP Pulse Ox Pulse Ox 08/14/23 07:16 36.7 C 70 19 148/71 H 94 08/14/23 02:47 36.7 C 80 18 151/68 H 95 08/13/23 23:47 96 08/13/23 23:22 36.5 C 86 18 150/70 H 96 08/13/23 22:59 80 O2 Del Method O2 Del Method 08/14/23 07:16 Room Air 08/14/23 02:47 Room Air 08/13/23 23:47 Room Air 08/13/23 23:22 Room Air 08/13/23 22:59 Laboratory Results CBC 08/14/23 Range/Units 04:19 WBC 7.37 (4.8-10.8) K/ul RBC 3.25 L (4.20-5.40) M/uL Hgb 10.4 L (12.0-16.0) g/dl Hct 30.8 L (37.0-47.0) % Plt Count 220 (130-400) K/uL Comprehensive Metabolic Panel 08/14/23 Range/Units 04:19 Sodium 132 L (136-145) mmol/L Potassium 3.7 (3.5-5.1) mmol/L Chloride 103 (98-107) mmol/L Carbon Dioxide 20 L (21-32) mmol/L BUN 58 H D (6-23) mg/dl Creatinine 2.28 H D (0.6-1.2) mg/dl Glucose 177 H (70-99(Fasting)) mg/dl Calcium 9.2 (8.6-10.3) mg/dl Intake and Output 08/13/23 08/14/23 08/14/23 22:59 06:59 14:59 Intake Total 350 / 850 Balance 350 / 850 Intake: Oral 350 / 350 Other: Weight 88.2 kg 88.1 kg Weight Measurement Method [facility] [place] Diagnostic Findings Telemetry reviewed: NSR ranging 60-80 bmp; occ PVC Medications Administered Current Inpatient Medications Acetaminophen (Acetaminophen 500 Mg Tab) 1,000 mg PO BID [facility] Stop: 09/12/23 08:59 Last Admin: 08/14/23 09:28 Dose: 1,000 mg Acetaminophen (Acetaminophen 325 Mg Tab) 650 mg PO Q4H PRN PRN Reason: Pain or Fever Stop: 09/11/23 23:46 Amlodipine Besylate (Amlodipine Besylate 5 Mg Tab) 5 mg PO DAILY [facility] Stop: 09/13/23 08:59 Last Admin: 08/14/23 09:28 Dose: 5 mg Aspirin (Aspirin 81 Mg Ectab) 81 mg PO QAM [facility] Stop: 09/12/23 08:59 Last Admin: 08/14/23 10:46 Dose: 81 mg Atorvastatin Calcium (Atorvastatin 40 Mg Tab) 80 mg PO HS [facility] Stop: 09/12/23 20:59 Last Admin: 08/13/23 20:44 Dose: 80 mg Calcium Carbonate (Calcium Carbonate 500 Mg Chewable Tab) 500 mg PO TID PRN PRN Reason: Indigestion Stop: 09/12/23 11:26 Last Admin: 08/13/23 12:46 Dose: 500 mg Dextrose (Dextrose 50% 50 Ml Syringe) 25 - 50 ml IV UD PRN; Protocol PRN Reason: Hypoglycemia Protocol Stop: 09/11/23 23:46 Glucagon (Glucagon For Inj 1 Mg Vial) 1 mg SQ UD PRN; Protocol PRN Reason: Hypoglycemia Protocol Stop: 09/11/23 23:46 Glucose (Glucose 10 Tab/Tube) 4 - 8 tab PO UD PRN; Protocol PRN Reason: Hypoglycemia Treatment Stop: 09/11/23 23:46 Glucose (Glucose 40% Gel 15 Gm Tube) 15 - 30 gm PO UD PRN; Protocol PRN Reason: Hypoglycemia Protocol Stop: 09/11/23 23:46 Heparin Sodium (Porcine) (Heparin Sod 5,000 Unit/0.5 Ml Vial) 5,000 units SQ Q8 [facility] Stop: 09/12/23 05:59 Last Admin: 08/14/23 05:49 Dose: 5,000 units Hydralazine HCl (Hydralazine Tab 50 Mg Tab) 100 mg PO TID [facility] Stop: 09/12/23 08:59 Last Admin: 08/14/23 09:28 Dose: 100 mg Hydromorphone HCl (Hydromorphone Inj 0.5 Mg/0.5 Ml Syr) 0.5 mg IV Q6H PRN PRN Reason: Pain Stop: 08/26/23 21:34 Promethazine HCl 6.25 mg/ (Sodium Chloride) 50.25 mls @ 201 mls/hr IV Q6H PRN PRN Reason: Nausea And Vomiting Stop: 09/11/23 21:34 Insulin Aspart (Insulin Aspart Per Unit Charge) 0 units SC ACHS [facility] Stop: 09/12/23 16:59 Last Admin: 08/14/23 09:47 Dose: 2 units Insulin Glargine (Lantus Per Unit Charge) 20 units SQ DAILY [facility] Stop: 09/13/23 09:44 Last Admin: 08/14/23 09:48 Dose: 20 units Isosorbide Dinitrate (Isosorbide Dinitrate 10 Mg Tab) 30 mg PO 0700,1200,1700 [facility] Stop: 09/12/23 06:59 Last Admin: 08/14/23 05:49 Dose: 30 mg Labetalol HCl (Labetalol Hcl 100 Mg Tab) 100 mg PO BID [facility] Stop: 09/12/23 08:59 Last Admin: 08/14/23 09:27 Dose: 100 mg Lisinopril (Lisinopril 20 Mg Tab) 20 mg PO BID [facility] Stop: 09/12/23 08:59 Last Admin: 08/13/23 20:43 Dose: 20 mg Loratadine (Loratadine 10 Mg Tab) 10 mg PO HS [facility] Stop: 09/11/23 23:46 Last Admin: 08/13/23 20:43 Dose: 10 mg Lorazepam (Lorazepam 0.5 Mg Tab) 0.5 mg PO TID PRN PRN Reason: Anxiety Stop: 09/11/23 21:34 Miscellaneous (Carbohydrates For Hypoglycemia ) 15 - 30 gm PO UD PRN PRN Reason: Hypoglycemia Protocol Stop: 09/11/23 23:46 Miscellaneous Information (Pharmacy Glycemic Mgmt Consult) 1 each N/A UD PRN; Protocol PRN Reason: Consult Stop: 09/13/23 09:06 Nitroglycerin (Nitroglycerin Sl 0.4 Mg/Tab Tab) 0.4 mg SL Q5M PRN PRN Reason: Chest Pain Stop: 09/11/23 23:46 Oxycodone HCl (Oxycodone Hcl Ir 5 Mg Tab (Immediate Release)) 5 mg PO Q4H PRN PRN Reason: Pain Stop: 08/26/23 21:34 Sertraline HCl (Sertraline Hcl 50 Mg Tablet) 25 mg PO QAM [facility] Stop: 09/12/23 08:59 Last Admin: 08/14/23 09:27 Dose: 25 mg
--- NOTE | 2023-08-14 13:04 | Pharmacy Report ---
Pharmacy Glycemic Short Note 2 - Date of Service August 14, 2023 - Glycemic Short BSG Results (Last 24 hours): 08/13/23 08/13/23 08/14/23 16:24 20:05 04:19 Glucose 177 H POC Glucose 223 H 250 H 08/14/23 08/14/23 07:59 12:00 Glucose POC Glucose 208 H 243 H OUTPATIENT ANTIDIABETIC REGIMEN: * Tresiba 33 units SQ qAM * Empagliflozin 25mg PO daily * Linagliptin 5mg PO daily * Repaglinide 2mg PO before meals * HbA1c: pending w/ am labs ASSESSMENT: * Ms Urrutia is an 88yo diabetic F admitted with hypertensive crisis. * BSGs have been trending high since admission. Pharmacy consult placed today for glycemic mgmt. * Basal dose increased and Novolog parameters tightened. Exercising caution in regimen adjustments in the setting of JOSE (SCr 2.28, baseline SCr ~ 1.5). * Pharmacy will continue to follow and adjust regimen as indicated. PLAN FOR INPATIENT GLYCEMIC CONTROL: * Hold outpatient oral diabetes medications * Basal insulin * Lantus 20 units SQ today, will re-evaluate tomorrow * Bolus insulin * NovoLog per scale ACHS or Q6hrs while NPO * Goal Range: Low 110 mg/dL - High 140 mg/dL * Correction Factor: 25 mg/dL/unit * Nutritional / Prandial insulin per carb ratio of 1 unit per 10 grams CHO consumed
--- NOTE | 2023-08-14 15:40 | Hospitalist Progress Note ---
Date of Service August 14, 2023 Assessment & Plan (1) Hypertensive crisis: Plan: Hypertensive urgency Chest pain likely secondary to above Mild troponin elevation--likely demand ischemia secondary to above --ECHO: Left ventricle systolic function is normal. EF 60 to 65%. Mild concentric LVH with grade 1 diastolic dysfunction. Mild mitral regurgitation. Trace tricuspid regurgitation. Findings do not suggest pulmonary hypertension. 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 Hold lisinopril, Lasix for now Avoid nephrotoxic agents as able Appreciate nephrology input Monitor renal function Cr 2.28 today DM II Update HbA1c Continue insulin while hospitalized per protocol Monitor BGs Chronic diastolic heart failure ECHO as above Volume status seem to be at baseline Resume home diuretics as able H/O PVD Hyperlipidemia Continue aspirin, statin Macular degeneration Chronic hyponatremia Mood disorder Continue home medications DVT Px: Heparin SQ Code Status Full code Admission and Anticipated Discharge Date Admission Date: August 12, 2023 Subjective Patient is seen and examined at bedside Headache, dizziness resolved States feeling well today Renal function slightly worse today Denies any chest pain, dyspnea, nausea, vomiting, abdominal pain No other complaints Review of Systems Review of Systems: All systems reviewed & are unremarkable except as noted in Subjective Physical Exam Physical Exam: Physical Exam: Vitals signs as noted above General Appearance:Obese, no apparent distress Head: normocephalic, Atraumatic Eyes: normal inspection, EOMI Neck: supple, Trachea midline Respiratory/Chest: Normal breath sounds, CTA, No accessory muscle use Cardiovascular: S1, S2, No murmur Abdomen/GI:Soft, Non tender, Bowel sounds present Extremities/Musculoskeletal:normal inspection, Trace edema Neurologic/Psych:AAOX3, grossly no focal neurological deficits Skin: normal color, warm Results & Data Results & Data Vital Signs (Past 12 Hours) Vital Signs Temp Pulse Resp BP Pulse Ox O2 Del Method 08/14/23 11:17 36.3 C L 73 19 123/68 94 Room Air 08/14/23 07:16 36.7 C 70 19 148/71 H 94 Room Air Laboratory Results Short CBC 08/14/23 Range/Units 04:19 WBC 7.37 (4.8-10.8) K/ul Hgb 10.4 L (12.0-16.0) g/dl Hct 30.8 L (37.0-47.0) % Plt Count 220 (130-400) K/uL [facility] 08/14/23 04:19 Sodium 132 L Potassium 3.7 Chloride 103 Carbon Dioxide 20 L BUN 58 H D Creatinine 2.28 H D Glucose 177 H Calcium 9.2
[2023-08-14] MEDS: DOCUSATE SODIUM/SENNA 50/8.6MG TAB PO SCH (23:39)
--- NOTE | 2023-08-15 00:16 | CT Scan Report ---
Exam(s): CT ABDOMEN + PELVIS Without Contrast EXAM: CT Abdomen and Pelvis Without Intravenous Contrast CLINICAL HISTORY: Reason for exam: abd pain. TECHNIQUE: Axial computed tomography images of the abdomen and pelvis without intravenous contrast. CTDI is 27.14 mGy and DLP is 1264.04 mGy-cm. Automated exposure control was utilized for the study. A dose lowering technique was utilized adhering to the principles of ALARA. COMPARISON: No relevant prior studies available. FINDINGS: Lung bases: Unremarkable. No mass. No consolidation. ABDOMEN: Liver: Unremarkable. Gallbladder and bile ducts: Cholelithiasis. No ductal dilation. Pancreas: Unremarkable. No ductal dilation. Spleen: Unremarkable. No splenomegaly. Adrenals: Unremarkable. No mass. Kidneys and ureters: Atrophy of the RIGHT kidney. Renal cyst. No obstructing stones. No hydronephrosis. Stomach and bowel: Diverticulosis, without acute diverticulitis. No small bowel obstruction. No free intraperitoneal air. PELVIS: Appendix: No findings to suggest acute appendicitis. Bladder: Decompressed urinary bladder. No stones. Reproductive: Unremarkable as visualized. ABDOMEN and PELVIS: Intraperitoneal space: Unremarkable. No free air. No significant fluid collection. Bones/joints: Degenerative changes of the spine. No acute fracture. No dislocation. Soft tissues: Unremarkable. Vasculature: Atherosclerotic changes of the aorta. No abdominal aortic aneurysm. Lymph nodes: Unremarkable. No enlarged lymph nodes. IMPRESSION: 1. Cholelithiasis. 2. Diverticulosis, without acute diverticulitis. No small bowel obstruction. No free intraperitoneal air. Electronically signed by: Rick Rogers MD 08/15/23 00:15 AM
[2023-08-15] MEDS: LORazepam 0.5 MG TAB PO PRN (00:52)
[2023-08-15] MEDS: oxyCODONE HCL IR 5 MG TAB (IMMEDIATE RELEASE) PO PRN (00:52)
[2023-08-15] MEDS: INSULIN ASPART PER UNIT CHARGE SC SCH (02:14)
[2023-08-15 06:10] LABS: Hematocrit (blood only) 31.1 % (37.0-47.0); Hemoglobin 10.3 g/dl (12.0-16.0); Mean Corpuscular Hemoglobin 32.1 pg (25.0-34.0); Mean Corpuscular Hgb Conc 33.1 g/dL (32.0-36.0); Mean Corpuscular Volume 96.9 fL (80.0-100.0); Mean Platelet Volume 10.2 fL (9.4-12.4); Platelet Count 216 K/uL (130-400); RDW Coefficient of Variation 12.8 % (11.5-14.5); RDW Standard Deviation 45.9 fL (36.4-46.3); Red Blood Count 3.21 M/uL (4.20-5.40); White Blood Count 9.83 K/ul (4.8-10.8)
[2023-08-15 06:26] LABS: BUN Creatinine Ratio 28.4 (10-20); Calcium 9.2 mg/dl (8.6-10.3); Creatinine Clr Calc Pharmacy 18.5 ml/min; Est GFR (African American) 22.5 ml/min; Est GFR (Non-African American) 19.5 ml/min; Magnesium 1.6 mg/dl (1.7-2.4); Potassium 4.6 mmol/L (3.5-5.1)
[2023-08-15 07:29] LABS: Estimated Average Glucose 140 mg/dl; Hemoglobin A1C 6.5 % (4.5-5.6)
[2023-08-15] MEDS: LANTUS PER UNIT CHARGE SQ SCH (08:58)
[2023-08-15] MEDS: hydrALAZINE TAB 50 MG TAB PO STA (09:54)
[2023-08-15] MEDS: MAGNESIUM SULFATE / D5W 1 GM/100 ML BAG IV ONE ×2 (09:58→12:54)
--- NOTE | 2023-08-15 10:56 | Cardiology Progress Note ---
Date of Service August 15, 2023 Assessment & Plan (1) Hypertensive urgency: (2) Elevated troponin: (3) JOSE (acute kidney injury): Plan Very pleasant 88-year-old female admitted on August 12, 2023 with uncontrolled hypertension and headache, hypertensive urgency. Initial blood pressure was 270/81. Head CT negative. High-sensitivity troponin minimally elevated (20.0, 32.6, 36.7 pg/mL). EKG without acute changes. Patient chest pain-free. Resting echocardiography in the morning of August 14, 2023 revealed normal LV systolic function, EF 60 to 65%, with mild concentric LVH, grade 1 diastolic dysfunction, mild mitral regurgitation, trace tricuspid regurgitation. Doppler findings not suggestive of pulmonary hypertension. Blood pressures have improved considerably following medication changes made this admission. Metoprolol discontinued. Labetalol prescribed. Verapamil switched to amlodipine. Hydralazine reduced to 50 mg 3 times daily. Furosemide, lisinopril and isosorbide are currently on hold. Volume status appears euvolemic. Overnight patient noted to have transient epigastric discomfort while straining to have a bowel movement. Blood pressure 184/65 at that time. Patient has had the discomfort in the past, attributed to gallbladder issues per patient. EKG obtained at that time revealed sinus at 90 bpm with a new left bundle branch block. Review of telemetry longer shows left bundle branch block. Suspect rate related left bundle branch block. Options of management discussed with patient. Creatinine notably 2.18 mg/dL. Patient requests conservative noninterventional medical management only. Blood pressure control paramount. Admission and Anticipated Discharge Date Admission Date: August 12, 2023 Supervising Physician Co-Signing Physician Notes I have reviewed the advance practitioner's documentation, and I agree with, and take responsibility for the plan of care. 88-year-old female present to the ER with uncontrolled hypertension. Transient epigastric discomfort recorded overnight with ECG demonstrating left bundle branch block. No chest discomfort or heaviness. Nursing with questions regarding antihypertensive medication recommendations this morning. PE: VSS, BP trending upward. General: NAD, awake, alert, and oriented x 3. Heart: Regular rhythm, normal S1-S2. No murmur. Lungs: Clear bilateral, no rales, rhonchi, wheeze. Extremities: No edema. A/P: 88-year-old female admitted with hypertensive urgency/uncontrolled hypertension. Elevated creatinine possibly due to decline in blood pressure with transition to labetalol. Creatinine improving today. Recommend reduce hydralazine to 50 mg 3 times daily. Hold isosorbide dinitrate. Lisinopril and furosemide will remain on hold due to acute renal insufficiency. Repeat basic metabolic panel in the a.m. Left bundle branch block noted on ECG. Likely rate related. Continue telemetry monitoring. Replace electrolytes as indicated. I spent a total of 30 minutes on the date of service in preparation, delivery, and documentation of the care provided to this patient, excluding any time spent in the performance of separately billed services. Subjective Patient seen and examined. Chart, medications, telemetry reviewed. Overnight last night patient experienced pain below the diaphragm described as a tightening or bearhug, epigastric area definitely tender to palpation. EKG at 22:56:06 revealed normal sinus rhythm at 90 bpm with a left bundle branch block. This morning (10:00 AM) patient feels okay. No further abdominal pain. Tired. No chest pain. No further epigastric pain. No unusual shortness of breath. No cough, orthopnea, PND, or peripheral edema. No palpitations. No dizziness or syncope. No subjective fevers or chills. Telemetry: Sinus with occasional ectopy, left bundle branch block no longer present this morning. Review of Systems Review of Systems: Complete review of systems is otherwise as stated above, negative, or noncontributory. Physical Exam Physical Exam: General: A&Ox3. NAD. HENT: Normocephalic. Atraumatic. Eyes: PER. Conjunctiva pink, sclera clear. Neck: No JVD. Heart: Regular rate and rhythm, 70 bpm. Soft systolic ejection murmur. No diastolic murmur. No rub. Lungs: Clear to auscultation. Abdomen: +BS. Soft. Nontender. No masses or organomegaly. Extremities: No significant edema. Limited neurological examination is without focal deficits. Pulses: radial=2/4, posterior tibial=1/4. Results & Data Vital Signs (Past 12 Hours) Vital Signs Temp Pulse Pulse Resp BP Pulse Ox Pulse Ox 08/15/23 07:18 36.6 C 75 18 135/64 94 08/15/23 05:42 162/67 H 08/15/23 02:48 36.8 C 74 18 161/69 H 97 08/14/23 23:32 90 02/09/24 23:00 97 O2 Del Method O2 Del Method 08/15/23 07:18 Room Air 08/15/23 05:42 08/15/23 02:48 Room Air 08/14/23 23:32 08/14/23 23:00 Room Air Laboratory Results CBC 08/15/23 Range/Units 05:24 WBC 9.83 (4.8-10.8) K/ul RBC 3.21 L (4.20-5.40) M/uL Hgb 10.3 L (12.0-16.0) g/dl Hct 31.1 L (37.0-47.0) % Plt Count 216 (130-400) K/uL Comprehensive Metabolic Panel 08/15/23 Range/Units 05:24 Sodium 129 L (136-145) mmol/L Potassium 4.6 D (3.5-5.1) mmol/L Chloride 101 (98-107) mmol/L Carbon Dioxide 20 L (21-32) mmol/L BUN 62 H (6-23) mg/dl Creatinine 2.18 H (0.6-1.2) mg/dl Glucose 212 H (70-99(Fasting)) mg/dl Calcium 9.2 (8.6-10.3) mg/dl Intake and Output 08/14/23 08/15/23 08/15/23 22:59 06:59 14:59 Intake Total 800 / 1000 200 / 1000 Balance 800 / 1000 200 / 1000 Intake: Oral 800 / 1000 200 / 1000 Other: # Unmeasured Voids 2 Weight 88.9 kg
--- NOTE | 2023-08-15 11:48 | Electrocardiogram Report ---
Test Reason : Blood Pressure : / mmHG Vent. Rate : 090 BPM Atrial Rate : 090 BPM P-R Int : 174 ms QRS Dur : 138 ms QT Int : 404 ms P-R-T Axes : 081 003 142 degrees QTc Int : 494 ms Poor data quality, interpretation may be adversely affected Normal sinus rhythm Left bundle branch block Abnormal ECG When compared with ECG of 12-AUG-2023 21:13, Left bundle branch block is now Present Confirmed by Jaya Burrell ([id number]) on 08/15/2023 11:47:35 AM Referred By: REFERRED SELF Confirmed By:Jamil Burrell
--- NOTE | 2023-08-15 13:27 | Pharmacy Report ---
Pharmacy Glycemic Short Note 2 - Date of Service August 15, 2023 - Glycemic Short BSG Results (Last 24 hours): 08/14/23 08/15/23 08/15/23 20:06 02:09 05:24 Glucose 212 H POC Glucose 153 H 205 H 08/15/23 08/15/23 07:58 11:49 Glucose POC Glucose 207 H 298 H OUTPATIENT ANTIDIABETIC REGIMEN: * Tresiba 33 units SC AM * Empagliflozin 25mg PO daily * Linagliptin 5mg PO daily * Repaglinide 2mg PO before meals * HbA1c: 6.5% (08/15/23) ASSESSMENT: 08/15: * Ramila received 38 units of insulin yesterday, 20 basal + 18 bolus. BSGs were: 208-243-153 mg/dL. * Fasting BSG was 207 mg/dL this AM. Increase basal by 50%. * Novolog tightened this AM as well. 08/14: * Ms Urrutia is an 88yo diabetic F admitted with hypertensive crisis. * BSGs have been trending high since admission. Pharmacy consult placed today for glycemic mgmt. * Basal dose increased and Novolog parameters tightened. Exercising caution in regimen adjustments in the setting of JOSE (SCr 2.28, baseline SCr ~ 1.5). * Pharmacy will continue to follow and adjust regimen as indicated. PLAN FOR INPATIENT GLYCEMIC CONTROL: * Hold outpatient oral diabetes medications * Basal insulin * Lantus 30 units SC today * Bolus insulin * NovoLog per scale ACHS or Q6hrs while NPO * Goal Range: Low 110 mg/dL - High 140 mg/dL * Correction Factor: 20 mg/dL/unit * Nutritional / Prandial insulin per carb ratio of 1 unit per 7 grams CHO consumed
--- NOTE | 2023-08-15 14:25 | Hospitalist Progress Note ---
Date of Service August 15, 2023 Assessment & Plan (1) Hypertensive crisis: Plan: Hypertensive urgency Chest pain likely secondary to above Mild troponin elevation--likely demand ischemia secondary to above --ECHO: Left ventricle systolic function is normal. EF 60 to 65%. Mild concentric LVH with grade 1 diastolic dysfunction. Mild mitral regurgitation. Trace tricuspid regurgitation. Findings do not suggest pulmonary hypertension. 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 Diverticulosis, without acute diverticulitis. No small bowel obstruction. No free intraperitoneal air. Will consider surgical evaluation if recurrence of abdominal pain Currently asymptomatic New LBBB Likely rate related per Cardiology Appreciate Input Patients prefers conservative management DM II HbA1c 6.5 Continue insulin while hospitalized per protocol Monitor BGs Chronic diastolic heart failure ECHO as above Volume status seem to be at baseline Resume home diuretics as able H/O PVD Hyperlipidemia Continue aspirin, statin Macular degeneration Chronic hyponatremia Mood disorder Continue home medications DVT Px: Heparin SQ Code Status Full code Admission and Anticipated Discharge Date Admission Date: August 12, 2023 Subjective Patient is seen and examined at bedside Reports having abdominal tightness/pain overnight which currently resolved No recurrence of headache, dizziness Offers no complaints this morning Discussed with cardiology today Denies any chest pain, dyspnea, nausea, vomiting, dizziness Review of Systems Review of Systems: All systems reviewed & are unremarkable except as noted in Subjective Physical Exam Physical Exam: Physical Exam: Vitals signs as noted above General Appearance:Obese, no apparent distress Head: normocephalic, Atraumatic Eyes: normal inspection, EOMI Neck: supple, Trachea midline Respiratory/Chest: Normal breath sounds, CTA, No accessory muscle use Cardiovascular: S1, S2, No murmur Abdomen/GI:Soft, Non tender, Bowel sounds present Extremities/Musculoskeletal:normal inspection, Trace edema Neurologic/Psych:AAOX3, grossly no focal neurological deficits Skin: normal color, warm Results & Data Results & Data Vital Signs (Past 12 Hours) Vital Signs Temp Pulse Resp BP Pulse Ox O2 Del Method 08/15/23 11:10 36.7 C 71 18 126/68 95 Room Air 08/15/23 07:18 36.6 C 75 18 135/64 94 Room Air 08/15/23 05:42 162/67 H 08/15/23 02:48 36.8 C 74 18 161/69 H 97 Room Air Laboratory Results Short CBC 08/15/23 Range/Units 05:24 WBC 9.83 (4.8-10.8) K/ul Hgb 10.3 L (12.0-16.0) g/dl Hct 31.1 L (37.0-47.0) % Plt Count 216 (130-400) K/uL BMP 08/15/23 05:24 Sodium 129 L Potassium 4.6 D Chloride 101 Carbon Dioxide 20 L BUN 62 H Creatinine 2.18 H Glucose 212 H Calcium 9.2
[2023-08-15] MEDS: hydrALAZINE TAB 50 MG TAB PO SCH (14:54)
[2023-08-16 05:08] LABS: Hematocrit (blood only) 29.8 % (37.0-47.0); Hemoglobin 10.2 g/dl (12.0-16.0); Mean Corpuscular Hemoglobin 32.7 pg (25.0-34.0); Mean Corpuscular Hgb Conc 34.2 g/dL (32.0-36.0); Mean Corpuscular Volume 95.5 fL (80.0-100.0); Mean Platelet Volume 10.3 fL (9.4-12.4); Platelet Count 202 K/uL (130-400); RDW Coefficient of Variation 13.1 % (11.5-14.5); RDW Standard Deviation 45.4 fL (36.4-46.3); Red Blood Count 3.12 M/uL (4.20-5.40); White Blood Count 6.78 K/ul (4.8-10.8)
[2023-08-16 05:23] LABS: BUN Creatinine Ratio 30.7 (10-20); Calcium 8.9 mg/dl (8.6-10.3); Creatinine Clr Calc Pharmacy 21.3 ml/min; Est GFR (African American) 26.8 ml/min; Est GFR (Non-African American) 23.1 ml/min; Magnesium 2.2 mg/dl (1.7-2.4); Potassium 4.2 mmol/L (3.5-5.1)
[2023-08-16] MEDS ORDERED: SODIUM CHLORIDE 0.65% NA SOLN 45 ML (OCEAN) PRN (06:16)
--- NOTE | 2023-08-16 10:14 | Cardiology Progress Note ---
Date of Service August 16, 2023 Assessment & Plan (1) Hypertensive urgency: (2) Elevated troponin: (3) JSOE (acute kidney injury): Plan Very pleasant 88-year-old female admitted on August 12, 2023 with uncontrolled hypertension and headache, hypertensive urgency. Initial blood pressure was 270/81. Head CT negative. High-sensitivity troponin minimally elevated (20.0, 32.6, 36.7 pg/mL). EKG without acute changes. Patient chest pain-free. Resting echocardiography in the morning of August 14, 2023 revealed normal LV systolic function, EF 60 to 65%, with mild concentric LVH, grade 1 diastolic dysfunction, mild mitral regurgitation, trace tricuspid regurgitation. Doppler findings not suggestive of pulmonary hypertension. Significantly labile hypertension, uncontrolled this morning. Labetalol held last evening. Recommend targeting an SBP of 130-150. Restart Isordil. Increase hydralazine to 75 mg 3 times per day. Continue labetalol (Metoprolol discontinued this admission). Verapamil changed to amlodipine this admission. Furosemide and lisinopril are currently on hold. Volume status appears euvolemic. Rate related left bundle branch block. Asymptomatic. Without high degree heart block via telemetry review. Carotid artery stenosis, 50-69% right internal carotid artery stenosis via August 2023 carotid duplex. Chronic kidney disease. Creatinine improving, 1.89 mg/dL this morning. Potassium normal at 4.2 this AM. Admission and Anticipated Discharge Date Admission Date: August 12, 2023 Supervising Physician Co-Signing Physician Notes I have reviewed the advance practitioner's documentation, and I agree with, and take responsibility for the plan of care. 88-year-old female present to the ER with uncontrolled hypertension. Feeling well today. She did not receive p.m. dose of labetalol per discussion with nursing. Blood pressure elevated this a.m. prior to medications. Previo usly noted abdominal discomfort has resolved. Telemetry with sinus rhythm with rate related left bundle branch block. PE: VSS, BP trending upward. General: NAD, awake, alert, and oriented x 3. Hea rt: Regular rhythm, normal S1-S2. No murmur. Lungs: Clear bilateral, no rales, rhonchi, wheeze. Extremities: No edema. A/P: 88-year-old female admitted with hypertensive urgency/uncontrolled hyper tension. Blood pressure remains labile. Creatinine trending downward today. Resume Isordil 3 times daily. Increase hydralazine to 75 mg 3 times daily. Continue labetalol and amlodipine as ordered. Resume lisinopril and furosemide as per nephrology. Subjective Patient seen and examined. Chart, medications, telemetry reviewed. Blood pressures have trended upwards this morning. Labetalol not given last evening for unclear reason(s) No chest pain. No epigastric pain. No palpitations. No unusual shortness of breath. No cough, orthopnea, PND, or peripheral edema. No headaches. No dizziness or syncope. Telemetry: Sinus in the 60s to 80s, with occasional PVCs Review of Systems Review of Systems: Complete review of systems is otherwise as stated above, negative, or noncontributory. Physical Exam Physical Exam: General: A&Ox3. NAD. HENT: Normocephalic. Atraumatic. Eyes: PER. Conjunctiva pink, sclera clear. Neck: No JVD. Heart: Regular rate and rhythm, 84 bpm. Soft systolic ejection murmur. No diastolic murmur. No rub. Lungs: Clear to auscultation. Abdomen: +BS. Soft. Nontender. No masses or organomegaly. Extremities: No significant edema. Limited neurological examination is without focal deficits. Pulses: radial=2/4, posterior tibial=1/4. Results & Data Vital Signs (Past 12 Hours) Vital Signs Temp Pulse Pulse Resp BP BP Pulse Ox 08/16/23 07:38 36.7 C 71 18 188/73 H 198/69 H 95 08/16/23 02:48 36.5 C 75 18 161/73 H 97 08/15/23 23:23 79 08/15/23 22:51 36.6 C 81 18 154/72 H 94 O2 Del Method 08/16/23 07:38 Room Air 08/16/23 02:48 Room Air 08/15/23 23:23 08/15/23 22:51 Room Air Laboratory Results CBC 08/16/23 Range/Units 04:16 WBC 6.78 (4.8-10.8) K/ul RBC 3.12 L (4.20-5.40) M/uL Hgb 10.2 L (12.0-16.0) g/dl Hct 29.8 L (37.0-47.0) % Plt Count 202 (130-400) K/uL Comprehensive Metabolic Panel 08/16/23 Range/Units 04:16 Sodium 134 L (136-145) mmol/L Potassium 4.2 (3.5-5.1) mmol/L Chloride 106 (98-107) mmol/L Carbon Dioxide 20 L (21-32) mmol/L BUN 58 H (6-23) mg/dl Creatinine 1.89 H (0.6-1.2) mg/dl Glucose 77 (70-99(Fasting)) mg/dl Calcium 8.9 (8.6-10.3) mg/dl Intake and Output 08/15/23 08/16/23 08/16/23 22:59 06:59 14:59 Intake Total 1420 / 2150 150 / 2150 Output Total 1 / 2 Balance 1419 / 2148 150 / 2148 Intake: IV 100 / 200 Magnesium Sulfate / D5w 1 gm In 100 / 100 100 ml @ 50 mls/hr IV ONE ONE Rx#:[id number] Oral 1320 / 1950 150 / 1950 Output: # Bowel Movements 1 / 2 Other: # Unmeasured Voids 2 Weight 88.8 kg
--- NOTE | 2023-08-16 13:08 | Nephrology Progress Note ---
Date of Service August 16, 2023 Assessment & Plan (1) JOSE (acute kidney injury): Plan: in elderly female with Sig vascular disease sudden change in BP is enough to cause JOSE. Most likely related to hemodynamic changes and change in renal perfusion. - BP was very well controlled until today morning-- did not get evening labetelol - Renal fucntions continue to improve and is almost at baseline now. -- Contineu to hold lisinopril and lasix - BP is managed by Cardiology , Agree with changes. She needs to f/u with Dr Colbert within 1-2 weeks for discharge with [facility]. 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 (3) Hypertensive crisis: Plan Cardiology, H and P and notes from [facility] [employer] reviewed in detail. 55 mins spent in total care Admission and Anticipated Discharge Date Admission Date: August 12, 2023 Subjective Patient seen and examined. Blood pressures have trended upwards this morning. No chest pain/ palpitations/ dizziness or syncope. - Does not c/o Abdominal pain, feels back to baseline Review of Systems 2 Review of Systems: All systems reviewed & are unremarkable except as noted in HPI & below Results & Data Vital Signs (Past 12 Hours) Vital Signs Temp Pulse Resp BP BP Pulse Ox O2 Del Method 08/16/23 11:04 36.8 C 74 18 144/68 H 95 Room Air 08/16/23 07:38 36.7 C 71 18 188/73 H 198/69 H 95 Room Air 08/16/23 02:48 36.5 C 75 18 161/73 H 97 Room Air Laboratory Results 08/16/23 04:16 08/16/23 04:16
--- NOTE | 2023-08-16 13:53 | Hospitalist Progress Note ---
Date of Service August 16, 2023 Assessment & Plan (1) Hypertensive crisis: Plan: Hypertensive urgency Chest pain likely secondary to above Mild troponin elevation--likely demand ischemia secondary to above --ECHO: Left ventricle systolic function is normal. EF 60 to 65%. Mild concentric LVH with grade 1 diastolic dysfunction. Mild mitral regurgitation. Trace tricuspid regurgitation. Findings do not suggest pulmonary hypertension. 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 Diverticulosis, without acute diverticulitis. No small bowel obstruction. No free intraperitoneal air. Currently asymptomatic Patient not interested in aggressive/invasive procedures New LBBB Likely rate related per Cardiology Appreciate Input Patients prefers conservative management DM II HbA1c 6.5 Continue insulin while hospitalized per protocol Monitor BGs Chronic diastolic heart failure ECHO as above Volume status seem to be at baseline Resume home diuretics as able H/O PVD Hyperlipidemia Continue aspirin, statin Macular degeneration Chronic hyponatremia Mood disorder Continue home medications DVT Px: Heparin SQ Code Status Full code Admission and Anticipated Discharge Date Admission Date: August 12, 2023 Subjective Patient is seen and examined at bedside States feeling well today No recurrence of abdominal pain Renal function improving Offers no complaints Denies any chest pain, dyspnea, nausea, vomiting, dizziness Review of Systems Review of Systems: All systems reviewed & are unremarkable except as noted in Subjective Physical Exam Physical Exam: Physical Exam: Vitals signs as noted above General Appearance:Obese, no apparent distress Head: normocephalic, Atraumatic Eyes: normal inspection, EOMI Neck: supple, Trachea midline Respiratory/Chest: Normal breath sounds, CTA, No accessory muscle use Cardiovascular: S1, S2, No murmur Abdomen/GI:Soft, Non tender, Bowel sounds present Extremities/Musculoskeletal:normal inspection, Trace edema Neurologic/Psych:AAOX3, grossly no focal neurological deficits Skin: normal color, warm Results & Data Results & Data Vital Signs (Past 12 Hours) Vital Signs Temp Pulse Resp BP BP Pulse Ox O2 Del Method 08/16/23 11:04 36.8 C 74 18 144/68 H 95 Room Air 08/16/23 07:38 36.7 C 71 18 188/73 H 198/69 H 95 Room Air 08/16/23 02:48 36.5 C 75 18 161/73 H 97 Room Air Laboratory Results Short CBC 08/16/23 Range/Units 04:16 WBC 6.78 (4.8-10.8) K/ul Hgb 10.2 L (12.0-16.0) g/dl Hct 29.8 L (37.0-47.0) % Plt Count 202 (130-400) K/uL BMP 08/16/23 04:16 Sodium 134 L Potassium 4.2 Chloride 106 Carbon Dioxide 20 L BUN 58 H Creatinine 1.89 H Glucose 77 Calcium 8.9
[2023-08-16] MEDS: hydrALAZINE HCL 25 MG TAB PO SCH (15:22)
[2023-08-17 05:09] LABS: BUN Creatinine Ratio 30.9 (10-20); Calcium 9.2 mg/dl (8.6-10.3); Creatinine Clr Calc Pharmacy 27.1 ml/min; Est GFR (African American) 35.7 ml/min; Est GFR (Non-African American) 30.8 ml/min; Potassium 4.6 mmol/L (3.5-5.1)
--- NOTE | 2023-08-17 08:35 | Pharmacy Report ---
Pharmacy Glycemic Short Note 2 - Date of Service August 17, 2023 - Glycemic Short BSG Results (Last 24 hours): 08/16/23 08/16/23 08/16/23 12:18 16:57 20:04 Glucose POC Glucose 161 H 168 H 199 H 08/17/23 08/17/23 04:00 07:51 Glucose 142 H POC Glucose 158 H OUTPATIENT ANTIDIABETIC REGIMEN: * Tresiba 33 units SC AM * Empagliflozin 25mg PO daily * Linagliptin 5mg PO daily * Repaglinide 2mg PO before meals HbA1c: 6.5% (08/15/23) ASSESSMENT: 08/16: * Blood sugars remain reasonably controlled w/ mildly elevated fasting BSG this AM * Received 57 units of insulin yesterday (30 units of basal and 27 units of prandial/correctional bolus) * Will increase basal insulin today and maintain current Novolog parameters for now * JOSE continues to resolve (SCr is 1.49 mg/dL today, which appears to be at/near baseline) 08/15: * Ramila received 38 units of insulin yesterday, 20 basal + 18 bolus. BSGs were: 208-243-153 mg/dL. * Fasting BSG was 207 mg/dL this AM. Increase basal by 50%. * Novolog tightened this AM as well. 08/14: * Ms Urrutia is an 88yo diabetic F admitted with hypertensive crisis. * BSGs have been trending high since admission. Pharmacy consult placed today for glycemic mgmt. * Basal dose increased and Novolog parameters tightened. Exercising caution in regimen adjustments in the setting of JOSE (SCr 2.28, baseline SCr ~ 1.5). * Pharmacy will continue to follow and adjust regimen as indicated. PLAN FOR INPATIENT GLYCEMIC CONTROL: * Hold outpatient oral diabetes medications * Basal insulin * Lantus 35 units SC today * Bolus insulin * NovoLog per scale ACHS or Q6hrs while NPO * Goal Range: Low 110 mg/dL - High 140 mg/dL * Correction Factor: 25 mg/dL/unit * Nutritional / Prandial insulin per carb ratio of 1 unit per 7 grams CHO consumed
[2023-08-17] MEDS: LANTUS PER UNIT CHARGE SQ SCH (09:03)
--- NOTE | 2023-08-17 09:48 | Cardiology Progress Note ---
Date of Service August 17, 2023 Assessment & Plan (1) Hypertensive urgency: (2) Elevated troponin: (3) JOSE (acute kidney injury): Plan Very pleasant 88-year-old female admitted on August 12, 2023 with uncontrolled hypertension and headache, hypertensive urgency. Initial blood pressure was 270/81. Head CT negative. High-sensitivity troponin minimally elevated (20.0, 32.6, 36.7 pg/mL). EKG without acute changes. Patient chest pain-free. Resting echocardiography in the morning of August 14, 2023 revealed normal LV systolic function, EF 60 to 65%, with mild concentric LVH, grade 1 diastolic dysfunction, mild mitral regurgitation, trace tricuspid regurgitation. Doppler findings not suggestive of pulmonary hypertension. Significantly labile hypertension, uncontrolled. Target SBP goal 130-150. Increase hydralazine to 100 mg 3 times daily. Resume lisinopril at 10 mg twice per day. Continue Isordil. Continue labetalol (Metoprolol discontinued this admission). Verapamil changed to amlodipine this admission. Furosemide remains on hold, will likely need to resume in the next couple days Rate related left bundle branch block. Asymptomatic. Without high degree heart block via personal telemetry review. Carotid artery stenosis, 50-69% right internal carotid artery stenosis via August 2023 carotid duplex. Chronic kidney disease. Creatinine improving, 1.49 mg/dL this morning. Potassium OK. Mild hyponatremia noted. Admission and Anticipated Discharge Date Admission Date: August 12, 2023 Supervising Physician Co-Signing Physician Notes I have reviewed the advance practitioner's documentation, and I agree with, and take responsibility for the plan of care. Patient was seen and personally examined Full assessment and plan as outlined above Blood pressure still running elevated. At home patient on significantly higher dose of beta-pb Other than complaints of depression overall no clinical complaints Denies headaches or nausea, renal function Will increase labetalol to 100 mg 3 times per day Subjective Patient seen and examined. Chart, medications, telemetry reviewed. Did not sleep well last night. Received Ativan just before my evaluation. Notes mild worsening depression, feels titration of Zoloft to 50 mg/day is appropriate now Blood pressure is elevated No chest pain. No epigastric pain. No palpitations. No unusual shortness of breath. No cough, orthopnea, PND, or peripheral edema. No headaches. No dizziness or syncope. Telemetry: Sinus in the 80s Review of Systems Review of Systems: Complete review of systems is otherwise as stated above, negative, or noncontributory. Physical Exam Physical Exam: General: A&Ox3. NAD. HENT: Normocephalic. Atraumatic. Eyes: PER. Conjunctiva pink, sclera clear. Neck: No JVD. Heart: Regular rate and rhythm, 80 bpm. Soft systolic ejection murmur. No diastolic murmur. No rub. Lungs: Clear to auscultation. Abdomen: +BS. Soft. Nontender. No masses or organomegaly. Extremities: Trivial significant edema. Limited neurological examination is without focal deficits. Pulses: radial=2/4, posterior tibial=1/4. Results & Data Vital Signs (Past 12 Hours) Vital Signs Temp Pulse Pulse Resp BP BP Pulse Ox 08/17/23 07:50 36.7 C 79 18 180/64 H 186/66 H 95 08/17/23 03:11 36.9 C 75 18 178/70 H 96 08/16/23 23:29 78 08/16/23 22:48 08/16/23 22:36 36.7 C 77 18 145/71 H 97 O2 Del Method 08/17/23 07:50 Room Air 08/17/23 03:11 Room Air 08/16/23 23:29 08/16/23 22:48 Room Air 08/16/23 22:36 Room Air Laboratory Results Comprehensive Metabolic Panel 08/17/23 Range/Units 04:00 Sodium 131 L (136-145) mmol/L Potassium 4.6 (3.5-5.1) mmol/L Chloride 103 (98-107) mmol/L Carbon Dioxide 19 L (21-32) mmol/L BUN 46 H (6-23) mg/dl Creatinine 1.49 H D (0.6-1.2) mg/dl Glucose 142 H (70-99(Fasting)) mg/dl Calcium 9.2 (8.6-10.3) mg/dl Intake and Output 08/16/23 08/17/23 08/17/23 22:59 06:59 14:59 Intake Total 1170 / 1850 200 / 1850 Output Total Balance 1169 / 1849 200 / 1849 Intake: Oral 1170 / 1850 200 / 1850 Output: # Bowel Movements Other: Weight 87.5 kg Weight Measurement Method Built in [facility]
[2023-08-17] MEDS: lisinopril 10 MG TAB PO SCH (12:06)
[2023-08-17] MEDS: SERTRALINE HCL 50 MG TABLET PO ONE (14:29)
[2023-08-17] MEDS: LABETALOL HCL 100 MG TAB PO SCH (14:30)
[2023-08-17] MEDS: hydrALAZINE TAB 50 MG TAB PO SCH (14:31)
--- NOTE | 2023-08-17 15:49 | Hospitalist Progress Note ---
Date of Service August 17, 2023 Assessment & Plan (1) Hypertensive crisis: Plan: Hypertensive urgency Chest pain likely secondary to above Mild troponin elevation--likely demand ischemia secondary to above --ECHO: Left ventricle systolic function is normal. EF 60 to 65%. Mild concentric LVH with grade 1 diastolic dysfunction. Mild mitral regurgitation. Trace tricuspid regurgitation. Findings do not suggest pulmonary hypertension. 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 Diverticulosis, without acute diverticulitis. No small bowel obstruction. No free intraperitoneal air. Currently asymptomatic Patient not interested in aggressive/invasive procedures New LBBB Likely rate related per Cardiology Appreciate Input Patients prefers conservative management DM II HbA1c 6.5 Continue insulin while hospitalized per protocol Monitor BGs Chronic diastolic heart failure ECHO as above Volume status seem to be at baseline Resume home diuretics as able H/O PVD Hyperlipidemia Continue aspirin, statin Macular degeneration Chronic hyponatremia Mood disorder Continue home medications Increase Zoloft to 50 mg daily DVT Px: Heparin SQ Code Status Full code Disposition Plan to discharge home as able Admission and Anticipated Discharge Date Admission Date: August 12, 2023 Subjective Patient is seen and examined at bedside Reports poor sleep overnight Feels depressed due to prolonged need for hospitalization BP elevated this morning No other complaints Denies any chest pain, dyspnea, nausea, vomiting, dizziness, abdominal pain Review of Systems Review of Systems: All systems reviewed & are unremarkable except as noted in Subjective Physical Exam Physical Exam: Physical Exam: Vitals signs as noted above General Appearance:Obese, no apparent distress Head: normocephalic, Atraumatic Eyes: normal inspection, EOMI Neck: supple, Trachea midline Respiratory/Chest: Normal breath sounds, CTA, No accessory muscle use Cardiovascular: S1, S2, No murmur Abdomen/GI:Soft, Non tender, Bowel sounds present Extremities/Musculoskeletal:normal inspection, Trace edema Neurologic/Psych:AAOX3, grossly no focal neurological deficits Skin: normal color, warm Results & Data Results & Data Vital Signs (Past 12 Hours) Vital Signs Temp Pulse Resp BP BP Pulse Ox O2 Del Method 08/17/23 12:10 37.0 C 87 18 182/70 H 95 Room Air 08/17/23 07:50 36.7 C 79 18 180/64 H 186/66 H 95 Room Air Laboratory Results [facility] 08/17/23 04:00 Sodium 131 L Potassium 4.6 Chloride 103 Carbon Dioxide 19 L BUN 46 H Creatinine 1.49 H D Glucose 142 H Calcium 9.2
[2023-08-18 07:15] LABS: BUN Creatinine Ratio 24.1 (10-20); Calcium 9.1 mg/dl (8.6-10.3); Creatinine Clr Calc Pharmacy 22.5 ml/min; Est GFR (African American) 29.6 ml/min; Est GFR (Non-African American) 25.5 ml/min; Potassium 4.6 mmol/L (3.5-5.1)
[2023-08-18] MEDS: SERTRALINE HCL 50 MG TABLET PO SCH (09:06)
--- NOTE | 2023-08-18 11:27 | Cardiology Progress Note ---
Date of Service August 18, 2023 Assessment & Plan (1) Hypertensive urgency: (2) Elevated troponin: (3) JOSE (acute kidney injury): Plan Very pleasant 88-year-old female admitted on August 12, 2023 with uncontrolled hypertension and headache, hypertensive urgency. Initial blood pressure was 270/81. Head CT negative. High-sensitivity troponin minimally elevated (20.0, 32.6, 36.7 pg/mL). EKG without acute changes. Patient chest pain-free. Resting echocardiography in the morning of August 14, 2023 revealed normal LV systolic function, EF 60 to 65%, with mild concentric LVH, grade 1 diastolic dysfunction, mild mitral regurgitation, trace tricuspid regurgitation. Doppler findings not suggestive of pulmonary hypertension. Blood pressures have trended to good control. Will change Labetalol from 100 mg TID to 200 mg BID, continuing all other antihypertensive agents as prescribed which include Hydralazine 100 mg 3 times daily, Lisinopril 10 mg BID, Isordil 30 mg BID, and amlodipine 5 mg/day. Metoprolol and Verapamil discontinued this admission. Furosemide remains on hold; would resume as needed only for now. Rate related left bundle branch block. Asymptomatic. Without high degree heart block via personal telemetry review. Carotid artery stenosis, 50-69% right internal carotid artery stenosis via August 2023 carotid duplex. Chronic kidney disease. Creatinine 1.74 mg/dL, not unexpected. Please contact with any questions or concerns. Outpatient Cardiology Follow-up. Admission and Anticipated Discharge Date Admission Date: August 12, 2023 Supervising Physician Co-Signing Physician Notes I have reviewed the advance practitioner's documentation, and I agree with, and take responsibility for the plan of care. Patient was seen and personally examined Full assessment and plan as outlined above Longstanding history of hypertensive renal disease. Blood pressure is labile but trending towards good control. Do not expect further adjustments on medications in hospital Would not hold medications Subjective Patient seen and examined. Chart, medications, telemetry reviewed. Feeling well. BP improved. No pain or discomfort. No palpitations. No unusual shortness of breath, orthopnea, PND, or peripheral edema. Telemetry: Sinus with occasional PVC, heart rates in the 70's and 80's. Review of Systems Review of Systems: Complete review of systems is otherwise as stated above, negative, or noncontributory. Physical Exam Physical Exam: General: A&Ox3. NAD. HENT: Normocephalic. Atraumatic. Eyes: PER. Conjunctiva pink, sclera clear. Neck: No JVD. Heart: Regular rate and rhythm, 80 bpm. Soft systolic ejection murmur. No diastolic murmur. No rub. Lungs: Clear to auscultation. Abdomen: +BS. Soft. Nontender. No masses or organomegaly. Extremities: No edema. No clubbing. No cyanosis. Limited neurological examination is without focal deficits. Pulses: radial=2/4, posterior tibial=1/4. Results & Data Vital Signs (Past 12 Hours) Vital Signs Temp Pulse Pulse Resp BP BP Pulse Ox 08/18/23 07:30 68 08/18/23 07:20 36.6 C 70 18 126/62 96 08/18/23 03:42 36.5 C 77 18 158/71 H 96 08/17/23 23:53 O2 Del Method 08/18/23 07:30 08/18/23 07:20 Room Air 08/18/23 03:42 Room Air 08/17/23 23:53 Room Air Laboratory Results Comprehensive Metabolic Panel 08/18/23 Range/Units 06:04 Sodium 132 L (136-145) mmol/L Potassium 4.6 (3.5-5.1) mmol/L Chloride 105 (98-107) mmol/L Carbon Dioxide 20 L (21-32) mmol/L BUN 42 H (6-23) mg/dl Creatinine 1.74 H (0.6-1.2) mg/dl Glucose 111 H (70-99(Fasting)) mg/dl Calcium 9.1 (8.6-10.3) mg/dl Intake and Output 08/17/23 08/18/23 08/18/23 22:59 06:59 14:59 Intake Total 1175 / 1175 0 / 1175 Output Total Balance 1174 / 1174 0 / 1174 Intake: Oral 1175 / 1175 0 / 1175 Output: # Bowel Movements Other: # Unmeasured Voids 1 3 Weight 83.8 kg Weight Measurement Method Built in [facility]
--- NOTE | 2023-08-18 15:34 | Hospitalist Progress Note ---
Date of Service August 18, 2023 Assessment & Plan (1) Hypertensive crisis: Plan: Hypertensive urgency Chest pain likely secondary to above Mild troponin elevation--likely demand ischemia secondary to above --ECHO: Left ventricle systolic function is normal. EF 60 to 65%. Mild concentric LVH with grade 1 diastolic dysfunction. Mild mitral regurgitation. Trace tricuspid regurgitation. Findings do not suggest pulmonary hypertension. 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 Diverticulosis, without acute diverticulitis. No small bowel obstruction. No free intraperitoneal air. Currently asymptomatic Patient not interested in aggressive/invasive procedures New LBBB Likely rate related per Cardiology Appreciate Input Patients prefers conservative management DM II HbA1c 6.5 Continue insulin while hospitalized per protocol Monitor BGs Chronic diastolic heart failure ECHO as above Volume status seem to be at baseline Resume home diuretics as PRN per cardiology H/O PVD Hyperlipidemia Continue aspirin, statin Macular degeneration Chronic hyponatremia Mood disorder Continue home medications Increase Zoloft to 50 mg daily DVT Px: Heparin SQ Code Status Full code Disposition Plan to discharge home as able Admission and Anticipated Discharge Date Admission Date: August 12, 2023 Subjective Patient is seen and examined at bedside States having slept well overnight Subjectively feels well No new complaints Denies any chest pain, dyspnea, nausea, vomiting, dizziness, abdominal pain Blood pressure medications readjusted by cardiology today Review of Systems Review of Systems: All systems reviewed & are unremarkable except as noted in Subjective Physical Exam Physical Exam: Physical Exam: Vitals signs as noted above General Appearance:Obese, no apparent distress Head: normocephalic, Atraumatic Eyes: normal inspection, EOMI Neck: supple, Trachea midline Respiratory/Chest: Normal breath sounds, CTA, No accessory muscle use Cardiovascular: S1, S2, No murmur Abdomen/GI:Soft, Non tender, Bowel sounds present Extremities/Musculoskeletal:normal inspection, Trace edema Neurologic/Psych:AAOX3, grossly no focal neurological deficits Skin: normal color, warm Results & Data Results & Data Vital Signs (Past 12 Hours) Vital Signs Temp Pulse Pulse Resp BP BP Pulse Ox 08/18/23 11:18 36.9 C 72 18 151/71 H 96 08/18/23 07:30 68 08/18/23 07:20 36.6 C 70 18 126/62 96 08/18/23 03:42 36.5 C 77 18 158/71 H 96 O2 Del Method 08/18/23 11:18 Room Air 08/18/23 07:30 08/18/23 07:20 Room Air 08/18/23 03:42 Room Air Laboratory Results [facility] 08/18/23 06:04 Sodium 132 L Potassium 4.6 Chloride 105 Carbon Dioxide 20 L BUN 42 H Creatinine 1.74 H Glucose 111 H Calcium 9.1
[2023-08-18] MEDS: LABETALOL HCL 200 MG TAB PO SCH (19:55)
[2023-08-19 06:42] LABS: Hematocrit (blood only) 28.9 % (37.0-47.0); Hemoglobin 9.6 g/dl (12.0-16.0); Mean Corpuscular Hgb Conc 33.2 g/dL (32.0-36.0); Mean Corpuscular Volume 96.3 fL (80.0-100.0); Mean Platelet Volume 10.4 fL (9.4-12.4); Platelet Count 207 K/uL (130-400); RDW Coefficient of Variation 13.3 % (11.5-14.5); RDW Standard Deviation 47.5 fL (36.4-46.3); White Blood Count 6.93 K/ul (4.8-10.8)
[2023-08-19 08:15] LABS: Calcium 8.9 mg/dl (8.6-10.3); Potassium 4.7 mmol/L (3.5-5.1)
[2023-08-19 08:21] LABS: BUN Creatinine Ratio 24.2 (10-20); Creatinine Clr Calc Pharmacy 19.7 ml/min; Est GFR (African American) 25.3 ml/min; Est GFR (Non-African American) 21.9 ml/min
--- NOTE | 2023-08-19 09:03 | Pharmacy Report ---
Pharmacy Glycemic Short Note 2 - Date of Service August 19, 2023 - Glycemic Short BSG Results (Last 24 hours): 08/18/23 08/18/23 08/18/23 11:51 16:56 19:55 Glucose POC Glucose 169 H 118 H 144 H 08/19/23 08/19/23 05:43 07:56 Glucose 135 H POC Glucose 140 H OUTPATIENT ANTIDIABETIC REGIMEN: * Tresiba 33 units SC AM * Empagliflozin 25mg PO daily * Linagliptin 5mg PO daily * Repaglinide 2mg PO before meals HbA1c: 6.5% (08/15/23) ASSESSMENT: 08/19: * BSGs within goal the last 48h: 114-199mg/dl. Received 35 units of basal and 18 units of bolus insulin yesterday. * Tolerating diet - other stressors stable. * Continue Lantus 35 units daily and current Novolog parameters. 08/16: * Blood sugars remain reasonably controlled w/ mildly elevated fasting BSG this AM * Received 57 units of insulin yesterday (30 units of basal and 27 units of prandial/correctional bolus) * Will increase basal insulin today and maintain current Novolog parameters for now * JOSE continues to resolve (SCr is 1.49 mg/dL today, which appears to be at/near baseline) 08/15: * Ramila received 38 units of insulin yesterday, 20 basal + 18 bolus. BSGs were: 208-243-153 mg/dL. * Fasting BSG was 207 mg/dL this AM. Increase basal by 50%. * Novolog tightened this AM as well. 08/14: * Ms Urrutia is an 88yo diabetic F admitted with hypertensive crisis. * BSGs have been trending high since admission. Pharmacy consult placed today for glycemic mgmt. * Basal dose increased and Novolog parameters tightened. Exercising caution in regimen adjustments in the setting of JOSE (SCr 2.28, baseline SCr ~ 1.5). * Pharmacy will continue to follow and adjust regimen as indicated. PLAN FOR INPATIENT GLYCEMIC CONTROL: * Hold outpatient oral diabetes medications * Basal insulin * Lantus 35 units SC daily * Bolus insulin * NovoLog per scale ACHS or Q6hrs while NPO * Goal Range: Low 110 mg/dL - High 140 mg/dL * Correction Factor: 25 mg/dL/unit * Nutritional / Prandial insulin per carb ratio of 1 unit per 7 grams CHO consumed
--- NOTE | 2023-08-19 10:08 | Cardiology Progress Note ---
Date of Service August 19, 2023 Assessment & Plan (1) Hypertensive urgency: (2) Elevated troponin: (3) JOSE (acute kidney injury): Plan 88-year-old female admitted on August 12, 2023 with uncontrolled hypertension and headache, hypertensive urgency. Initial blood pressure was 270/81. Head CT negative. High-sensitivity troponin minimally elevated (20.0, 32.6, 36.7 pg/mL). EKG without acute changes. Patient chest pain-free. Resting echocardiography in the morning of August 14, 2023 revealed normal LV systolic function, EF 60 to 65%, with mild concentric LVH, grade 1 diastolic dysfunction, mild mitral regurgitation, trace tricuspid regurgitation. Doppler findings not suggestive of pulmonary hypertension. Blood pressures have trended to good control. SBP's 117-158 and DBP's 62-71 over the last 24 hours. Continue currently therapies as prescribed. Rate related left bundle branch block. Asymptomatic. Without high degree heart block via personal telemetry review. Carotid artery stenosis, 50-69% right internal carotid artery stenosis via August 2023 carotid duplex. Chronic kidney disease. Hyponatremia. Restrict oral fluid intake to less than 60 US fluid ounces per day. This requires close follow-up. Please contact with any questions or concerns. Outpatient Cardiology Follow-up. Admission and Anticipated Discharge Date Admission Date: August 12, 2023 Supervising Physician Co-Signing Physician Notes I have reviewed the advance practitioner's documentation, and I agree with, and take responsibility for the plan of care. Patient was seen and personally examined Full assessment and plan as outlined above Subjective Patient seen and examined. Chart, medications, telemetry reviewed. Tired. Didn't sleep well. Anxious about going home. Lives along though with family close. Sodium 129 mmol/L this AM. Notes drinking "a lot of water because that's what I was told to do." No chest pain, palpitations, shortness of breath, abdominal bloating, orthopnea, PND, or peripheral edema. Telemetry: Sinus with a first degree AV block, 60's. Review of Systems Review of Systems: Complete review of systems is otherwise as stated above, negative, or noncontributory. Physical Exam Physical Exam: General: A&Ox3. NAD. HENT: Normocephalic. Atraumatic. Eyes: PER. Conjunctiva pink, sclera clear. Neck: No JVD. Heart: Regular rate and rhythm, 78 bpm. Soft systolic ejection murmur. No diastolic murmur. No rub. Lungs: Clear to auscultation. Abdomen: +BS. Soft. Nontender. No masses or organomegaly. Extremities: No edema. No clubbing. No cyanosis. Limited neurological examination is without focal deficits. Pulses: radial=2/4, posterior tibial=1/4. Results & Data Vital Signs (Past 12 Hours) Vital Signs Temp Pulse Resp BP BP Pulse Ox O2 Del Method 08/19/23 07:15 36.5 C 68 17 119/65 95 Room Air 08/19/23 03:48 36.7 C 68 20 117/62 93 Room Air 08/18/23 23:00 08/18/23 22:39 36.5 C 75 18 144/67 H 96 Room Air O2 Del Method 08/19/23 07:15 08/19/23 03:48 08/18/23 23:00 Room Air 08/18/23 22:39 Laboratory Results CBC 08/19/23 Range/Units 05:43 WBC 6.93 (4.8-10.8) K/ul RBC 3.00 L (4.20-5.40) M/uL Hgb 9.6 L (12.0-16.0) g/dl Hct 28.9 L (37.0-47.0) % Plt Count 207 (130-400) K/uL Comprehensive Metabolic Panel 08/19/23 Range/Units 05:43 Sodium 129 L (136-145) mmol/L Potassium 4.7 (3.5-5.1) mmol/L Chloride 103 (98-107) mmol/L Carbon Dioxide 19 L (21-32) mmol/L BUN 48 H (6-23) mg/dl Creatinine 1.98 H (0.6-1.2) mg/dl Glucose 135 H (70-99(Fasting)) mg/dl Calcium 8.9 (8.6-10.3) mg/dl Intake and Output 08/18/23 08/19/23 08/19/23 22:59 06:59 14:59 Intake Total 200 / 700 0 / 700 Balance 200 / 699 0 / 699 Intake: Oral 200 / 700 0 / 700 Other: # Unmeasured Voids 1 2 Weight 83 kg Weight Measurement Method Built in [facility]
--- NOTE | 2023-08-19 11:33 | Nephrology Progress Note ---
Date of Service August 19, 2023 Assessment & Plan Admission and Anticipated Discharge Date Admission Date: August 12, 2023 Subjective Assessment & Plan (1) JOSE (acute kidney injury): Plan: in elderly female with Sig vascular disease sudden change in BP is enough to cause JOSE. Most likely related to hemodynamic changes and change in renal perfusion. Creat came down to much better but now rising again. Lisinopril restarted 08/17. if creat rise again tomorrow may have to hold lisinopril again. Already got AM dose. would like to see her AM labs tomorrow before we use it. so for now hold it She was on lasix at home but not now. na is dropping could be related with not getting lasix. . 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 (3) Hypertensive crisis: Much better BP now. on Labetalol now and Hydralazine raised to 100 tid. Lisinopril restarted 08/17 Subjective Patient seen and examined. Blood pressures much better now--cards managing it. No new issues. Discharge delayed now because of Drop in Na and rise in creat Physical Exam Physical Exam: General: A&Ox3. NAD. HENT: Normocephalic. Atraumatic. Eyes: PER. Conjunctiva pink, sclera clear. Neck: No JVD. Heart: Regular rate and rhythm, 78 bpm. Soft systolic ejection murmur. No diastolic murmur. No rub. Lungs: Clear to auscultation. Abdomen: +BS. Soft. Nontender. No masses or organomegaly. Extremities: No edema. No clubbing. No cyanosis. Limited neurological examination is without focal deficits. Pulses: radial=2/4, posterior tibial=1/4. Results & Data Vital Signs (Past 12 Hours) Vital Signs Temp Pulse Resp BP BP Pulse Ox O2 Del Method 08/19/23 07:15 36.5 C 68 17 119/65 95 Room Air 08/19/23 03:48 36.7 C 68 20 117/62 93 Room Air
--- NOTE | 2023-08-19 13:03 | Hospitalist Progress Note ---
Date of Service August 19, 2023 Assessment & Plan (1) Hypertensive crisis: Plan: 88 year old woman with history of HFpEF, PVD, Hypertension, HLD, DM2, CKD, hyponatremia, MGUS, familial hypocalciuric hypercalcemia, mood disorder who presented with significantly elevated blood pressure Hypertensive urgency Chest pain likely secondary to above Mild troponin elevation-likely demand ischemia secondary to above ECHO: Left ventricle systolic function is normal. EF 60 to 65%. Mild concentric LVH with grade 1 diastolic dysfunction. Mild mitral regurgitation. Trace tricuspid regurgitation. Findings do not suggest pulmonary hypertension. 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 Diverticulosis, without acute diverticulitis. No small bowel obstruction. No free intraperitoneal air. Currently asymptomatic Patient not interested in aggressive/invasive procedures New LBBB Likely rate related per Cardiology Appreciate Input Patients prefers conservative management DM II HbA1c 6.5 Continue insulin while hospitalized per protocol Monitor BGs Chronic diastolic heart failure ECHO as above Volume status seem to be at baseline Plan to possibly resume home diuretics as PRN per cardiology H/O PVD Hyperlipidemia Continue aspirin, statin Macular degeneration Chronic hyponatremia Mood disorder Continue home medications Increase Zoloft to 50 mg daily DVT Px:Heparin SQ Code Status Full code I spent a total of 45 minutes coordinating, documenting and providing care for this patient excluding time spent in performance of separately billed services Admission and Anticipated Discharge Date Admission Date: August 12, 2023 Subjective Patient seen and examined Denied any new complaints BP is better controlled Physical Exam Constitutional: + well hydrated; no acute distress Eyes: PERRL, conjunctivae normal, anicteric sclerae ENMT: external ear and nose normal, oropharynx normal Respiratory: normal respiratory effort, lungs clear to auscultation Cardiovascular: Rate/Rhythm: regular rate and regular rhythm S1 S2 Gastrointestinal (Abdomen): normal bowel sounds, soft, nontender, no hepatosplenomegaly Musculoskeletal: no cyanosis or clubbing, extremities motor strength 5/5 No pedal edema Neurologic: PERRL, EOMI, accommodation nl, no face palsy, no dysarthria Psychiatric: A+Ox3, euthymic affect Results & Data Results & Data Vital Signs (Past 12 Hours) Vital Signs Temp Pulse Resp BP BP Pulse Ox O2 Del Method 08/19/23 11:17 36.7 C 77 18 163/73 H 95 Room Air 08/19/23 07:15 36.5 C 68 17 119/65 95 Room Air 08/19/23 03:48 36.7 C 68 20 117/62 93 Room Air Laboratory Results Abnormal lab results 08/18/23 08/18/23 08/19/23 Range/Units 16:56 19:55 05:43 RBC 3.00 L (4.20-5.40) M/uL Hgb 9.6 L (12.0-16.0) g/dl Hct 28.9 L (37.0-47.0) % RDW Std Deviation 47.5 H (36.4-46.3) fL Sodium 129 L (136-145) mmol/L Carbon Dioxide 19 L (21-32) mmol/L BUN 48 H (6-23) mg/dl Creatinine 1.98 H (0.6-1.2) mg/dl BUN/Creatinine Ratio 24.2 H (10-20) Glucose 135 H (70-99(Fasting)) mg/dl POC Glucose 118 H 144 H (70-99) mg/dl 08/19/23 08/19/23 Range/Units 07:56 11:53 RBC (4.20-5.40) M/uL Hgb (12.0-16.0) g/dl Hct (37.0-47.0) % RDW Std Deviation (36.4-46.3) fL Sodium (136-145) mmol/L Carbon Dioxide (21-32) mmol/L BUN (6-23) mg/dl Creatinine (0.6-1.2) mg/dl BUN/Creatinine Ratio (10-20) Glucose (70-99(Fasting)) mg/dl POC Glucose 140 H 145 H (70-99) mg/dl
[2023-08-19] MEDS: ACETAMINOPHEN 325 MG TAB PO PRN (21:09)
[2023-08-20 06:37] LABS: Hematocrit (blood only) 28.7 % (37.0-47.0); Hemoglobin 9.3 g/dl (12.0-16.0); Mean Corpuscular Hemoglobin 31.8 pg (25.0-34.0); Mean Corpuscular Hgb Conc 32.4 g/dL (32.0-36.0); Mean Corpuscular Volume 98.3 fL (80.0-100.0); Mean Platelet Volume 10.4 fL (9.4-12.4); Platelet Count 202 K/uL (130-400); RDW Coefficient of Variation 13.5 % (11.5-14.5); RDW Standard Deviation 47.9 fL (36.4-46.3); Red Blood Count 2.92 M/uL (4.20-5.40); White Blood Count 7.79 K/ul (4.8-10.8)
[2023-08-20 07:02] LABS: BUN Creatinine Ratio 25.5 (10-20); Calcium 8.8 mg/dl (8.6-10.3); Creatinine Clr Calc Pharmacy 18.9 ml/min; Est GFR (African American) 23.9 ml/min; Est GFR (Non-African American) 20.6 ml/min; Potassium 5.1 mmol/L (3.5-5.1)
--- NOTE | 2023-08-20 11:13 | Nephrology Progress Note ---
Date of Service August 20, 2023 Assessment & Plan Admission and Anticipated Discharge Date Admission Date: August 12, 2023 Subjective Assessment & Plan (1) JOSE (acute kidney injury): Plan: in elderly female with Sig vascular disease sudden change in BP is enough to cause JOSE. Most likely related to hemodynamic changes and change in renal perfusion. Creat came down to much better but now rising again. Lisinopril restarted 08/17. Did get AM dose of 08/19. If her creat is about same tomorrow then ok for discharge but as of now still rising. Give 500 ml NS today--stop after that No Lisinopril for now. " IN fact given one functional kidney only status at advanced age " maybe better to not use ANANT/ARB ever again . BP goal to be liberalized to < 160/100 She was on lasix at home but not now. 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 (3) Hypertensive crisis: Much better BP now. on Labetalol now and Hydralazine raised to 100 tid. Lisinopril restarted 08/17 and stopped after 08/19 PM Subjective Patient seen and examined. Blood pressures much better now--cards managing it. Physical Exam Physical Exam: General: A&Ox3. NAD. HENT: Normocephalic. Atraumatic. Eyes: PER. Conjunctiva pink, sclera clear. Neck: No JVD. Heart: Regular rate and rhythm, 78 bpm. Soft systolic ejection murmur. No diastolic murmur. No rub. Lungs: Clear to auscultation. Abdomen: +BS. Soft. Nontender. No masses or organomegaly. Extremities: No edema. No clubbing. No cyanosis. Limited neurological examination is without focal deficits. Results & Data Vital Signs (Past 12 Hours) Vital Signs Temp Pulse Pulse Resp BP BP Pulse Ox 08/20/23 07:27 36.5 C 80 18 144/69 H 96 08/20/23 03:00 36.4 C L 70 16 121/66 96 08/20/23 00:31 76 O2 Del Method 08/20/23 07:27 Room Air 08/20/23 03:00 Room Air 08/20/23 00:31
[2023-08-20] MEDS: SODIUM CHLORIDE 0.9% 500 ML IV SCH (12:07)
[2023-08-20] MEDS: ISOSORBIDE DINITRATE 20 MG TAB PO SCH (12:12)
--- NOTE | 2023-08-20 13:31 | Hospitalist Progress Note ---
Date of Service August 20, 2023 Assessment & Plan (1) Hypertensive crisis: Plan: 88 year old woman with history of HFpEF, PVD, Hypertension, HLD, DM2, CKD, hyponatremia, MGUS, familial hypocalciuric hypercalcemia, mood disorder who presented with significantly elevated blood pressure Hypertensive urgency Chest pain likely secondary to above Mild troponin elevation-likely demand ischemia secondary to above ECHO: Left ventricle systolic function is normal. EF 60 to 65%. Mild concentric LVH with grade 1 diastolic dysfunction. Mild mitral regurgitation. Trace tricuspid regurgitation. Findings do not suggest pulmonary hypertension. 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 Avoid nephrotoxic agents as able Appreciate nephrology input Monitor renal function Cr had initially improved but then started trending up again Lisinopril was initially held but later resumed at Lisinopril 10mg BID (was on 20mg BID) Considering patient CKD and increasing Cr, lisinopril has been discontinued permanently Cr is 2.08 today Discussed with Business Continuity Strategy Director who recommends discontinuing ACEI going forward, 500cc IVF today, reassess renal function tomorrow and to allow BP to trend a little higher than normal Cholelithiasis Diverticulosis Reported transient abdominal pain during hospital stay -CT ABD:Cholelithiasis. Diverticulosis, without acute diverticulitis. No small bowel obstruction. No free intraperitoneal air. Currently asymptomatic Patient not interested in aggressive/invasive procedures New LBBB Likely rate related per Cardiology Appreciate Input Patients prefers conservative management DM II HbA1c 6.5 Continue insulin while hospitalized per protocol Monitor BGs Chronic diastolic heart failure ECHO as above Euvolemic Plan to possibly resume home diuretics as PRN per cardiology H/O PVD Hyperlipidemia Continue aspirin, statin Macular degeneration Chronic hyponatremia Mood disorder Continue home medications Continue zoloft DVT Px:Heparin SQ Code Status Full code I spent a total of 45 minutes coordinating, documenting and providing care for this patient excluding time spent in performance of separately billed services Admission and Anticipated Discharge Date Admission Date: August 12, 2023 Subjective Patient seen and examined Denied any complaints on ROS Physical Exam Constitutional: + well hydrated; no acute distress Eyes: PERRL, conjunctivae normal, anicteric sclerae ENMT: external ear and nose normal, oropharynx normal Respiratory: normal respiratory effort, lungs clear to auscultation Cardiovascular: Rate/Rhythm: regular rate and regular rhythm S1 S2 Gastrointestinal (Abdomen): normal bowel sounds, soft, nontender, no hepatosplenomegaly Musculoskeletal: no cyanosis or clubbing, extremities motor strength 5/5 Neurologic: PERRL, EOMI, accommodation nl, no face palsy, no dysarthria Psychiatric: A+Ox3, euthymic affect Results & Data Results & Data Vital Signs (Past 12 Hours) Vital Signs Temp Pulse Resp BP BP Pulse Ox O2 Del Method 08/20/23 10:56 36.7 C 74 19 138/70 95 Room Air 08/20/23 07:27 36.5 C 80 18 144/69 H 96 Room Air 08/20/23 03:00 36.4 C L 70 16 121/66 96 Room Air Laboratory Results Abnormal lab results 08/19/23 08/19/23 08/20/23 Range/Units 16:54 20:19 05:47 RBC 2.92 L (4.20-5.40) M/uL Hgb 9.3 L (12.0-16.0) g/dl Hct 28.7 L (37.0-47.0) % RDW Std Deviation 47.9 H (36.4-46.3) fL Sodium 131 L (136-145) mmol/L Carbon Dioxide 18 L (21-32) mmol/L BUN 53 H (6-23) mg/dl Creatinine 2.08 H (0.6-1.2) mg/dl BUN/Creatinine Ratio 25.5 H (10-20) Glucose 115 H (70-99(Fasting)) mg/dl POC Glucose 266 H 143 H (70-99) mg/dl 08/20/23 08/20/23 Range/Units 08:01 11:41 RBC (4.20-5.40) M/uL Hgb (12.0-16.0) g/dl Hct (37.0-47.0) % RDW Std Deviation (36.4-46.3) fL Sodium (136-145) mmol/L Carbon Dioxide (21-32) mmol/L BUN (6-23) mg/dl Creatinine (0.6-1.2) mg/dl BUN/Creatinine Ratio (10-20) Glucose (70-99(Fasting)) mg/dl POC Glucose 140 H 203 H (70-99) mg/dl
--- NOTE | 2023-08-20 13:56 | Cardiology Progress Note ---
Date of Service August 20, 2023 Assessment & Plan (1) Hypertension, uncontrolled: (2) Acute on chronic kidney failure: Plan Appreciate nephrology input Blood pressure trending towards good control however with ANANT inhibitor had subsequent rise in creatinine, hyponatremia. Medication on hold and likely to be discontinued indefinitely Will continue current regimen otherwise Admission and Anticipated Discharge Date Admission Date: August 12, 2023 Subjective Patient seen and examined, chart, medications, telemetry reviewed Patient feels improved No acute complaints however creatinine has risen Blood pressure is much better controlled no orthostatic complaints no headache or visual change Physical Exam Constitutional: no acute distress Eyes: PERRL, conjunctivae normal, anicteric sclerae ENMT: external ear and nose normal, oropharynx normal Neck: trachea midline, no thyromegaly Cardiovascular: Rate/Rhythm: regular rate and regular rhythm Heart Sounds: normal S1 and normal S2 Gastrointestinal (Abdomen): normal bowel sounds, soft, nontender, no hepatosp lenomegaly Results & Data Vital Signs (Past 12 Hours) Vital Signs Temp Pulse Resp BP BP Pulse Ox O2 Del Method 08/20/23 10:56 36.7 C 74 19 138/70 95 Room Air 08/20/23 07:27 36.5 C 80 18 144/69 H 96 Room Air 08/20/23 03:00 36.4 C L 70 16 121/66 96 Room Air
[2023-08-21 06:13] LABS: Hematocrit (blood only) 29.6 % (37.0-47.0); Hemoglobin 9.6 g/dl (12.0-16.0); Mean Corpuscular Hemoglobin 31.9 pg (25.0-34.0); Mean Corpuscular Hgb Conc 32.4 g/dL (32.0-36.0); Mean Corpuscular Volume 98.3 fL (80.0-100.0); Mean Platelet Volume 10.3 fL (9.4-12.4); Platelet Count 212 K/uL (130-400); RDW Coefficient of Variation 13.4 % (11.5-14.5); RDW Standard Deviation 48.9 fL (36.4-46.3); Red Blood Count 3.01 M/uL (4.20-5.40); White Blood Count 7.55 K/ul (4.8-10.8)
[2023-08-21 06:29] LABS: BUN Creatinine Ratio 28.6 (10-20); Creatinine Clr Calc Pharmacy 21.6 ml/min; Est GFR (Non-African American) 24.2 ml/min; Potassium 5.1 mmol/L (3.5-5.1)
--- NOTE | 2023-08-21 09:24 | Nephrology Progress Note ---
Date of Service August 21, 2023 Assessment & Plan Admission and Anticipated Discharge Date Admission Date: August 12, 2023 Subjective Assessment & Plan (1) JOSE (acute kidney injury): Plan: in elderly female with Sig vascular disease sudden change in BP is enough to cause JOSE. Most likely related to hemodynamic changes and change in renal perfusion. Lisinopril restarted 08/17. Did get AM dose of 08/19. Creat down a bit from yesterday No Lisinopril for now. " IN fact given one functional kidney only status at advanced age " maybe better to not use ANANT/ARB ever again . BP goal to be liberalized to < 160/100 She was on lasix at home but not now. for discharge no ANANT and No Lasix. 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 (3) Hypertensive crisis: Much better BP now. on Labetalol now and Hydralazine raised to 100 tid. Lisinopril restarted 08/17 and stopped after 08/19 PM Subjective Patient seen and examined. Blood pressures much better now. No new issues Physical Exam Physical Exam: General: A&Ox3. NAD. HENT: Normocephalic. Atraumatic. Eyes: PER. Conjunctiva pink, sclera clear. Neck: No JVD. Heart: Regular rate and rhythm, 78 bpm. Soft systolic ejection murmur. No diastolic murmur. No rub. Lungs: Clear to auscultation. Abdomen: +BS. Soft. Nontender. No masses or organomegaly. Extremities: No edema. No clubbing. No cyanosis. Limited neurological examination is without focal deficits. Results & Data Vital Signs (Past 12 Hours) Vital Signs Temp Pulse Pulse Resp BP Pulse Ox O2 Del Method 08/21/23 08:00 69 08/21/23 07:10 36.6 C 70 19 136/63 95 Room Air 08/21/23 03:15 36.6 C 74 16 136/63 95 Room Air 08/20/23 23:55 78 08/20/23 23:00 36.7 C 73 19 132/73 98 Room Air
--- NOTE | 2023-08-21 12:11 | Discharge Summary ---
Date of Service August 21, 2023 Admission HPI Per Admitting Provider History obtained from patient and records. Medical history significant for chronic diastolic heart failure (EF 70%, TTE 2021), PVD, hypertension, hyperlipidemia, DM 2 insulin requiring, CRI (baseline creatinine 1.7), chronic hyponatremia, MGUS, familial hypocalciuric hypercalcemia, mood disorder. Recurrent admissions last 2 years for hypertensive crisis. Last confinement September 2022. Isosorbide dinitrate dose increased, hydralazine added to patient's regimen. SBP 150 to 180s at home as per patient. SBP 190 to 200s on outpatient cardiology and PCP follow-up visits last year. Patient felt BP elevation situational and did not wish to make medication changes as per last outpatient [facility] cardiology note from April 2023. Patient seen on outpatient [facility] vascular surgery follow-up visit today. SBP noted to be 220s. Patient denies headache, chest pain, SOB, fluid retention. Patient compliant with home medications. Denies unusual stress. Denies OTC NSAID intake. Patient woke up at home not feeling well. Achy headache symptoms and chest heaviness with some radiation to the back. Blood pressure read as "high" on her machine. EMS called to patient's home. SBP noted to be 260s. Chest heaviness improved with aspirin and nitroglycerin administration. SBP 270s upon arrival at the ER. IV hydralazine and lisinopril administered at the ER. SBP currently 210s. 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 Admission Exam Per Admitting Provider GENERAL: Slightly uncomfortable, pleasant, looks younger than stated age, anxious, obese, no respiratory distress SKIN: Normal color, warm HEENT: [place] palpebral conjunctivae, no ptosis, moist buccal mucosa NECK : Supple, short neck, no tenderness CHEST : CTA, no tenderness HEART : Bradycardic, no obvious murmurs ABDOMEN: Some distention, nontender EXTREMITIES : Minimal LE swelling, no LE tenderness, no other conspicuous deformities noted NEUROLOGIC : Coherent, no facial asymmetry, no other gross focality Principal Diagnosis Uncontrolled Hypertension Acute on chronic kidney disease Cholelithiasis Discharge Exam Constitutional + well hydrated; no acute distress Eyes PERRL, conjunctivae normal, anicteric sclerae ENMT external ear and nose normal, oropharynx normal Respiratory normal respiratory effort, lungs clear to auscultation Cardiovascular Rate/Rhythm: regular rate and regular rhythm S1 S2 Gastrointestinal (Abdomen) normal bowel sounds, soft, nontender, no hepatosplenomegaly Musculoskeletal no cyanosis or clubbing, extremities motor strength 5/5 Neurologic PERRL, EOMI, accommodation nl, no face palsy, no dysarthria Psychiatric A+Ox3, euthymic affect Discharge Data Allergies Allergy/AdvReac Type Severity Reaction Status Date / Time latex Allergy Severe DIFFICULTY Verified 08/12/23 21:08 BREATHING, TONGUE SWELLS Penicillins Allergy Severe DIFFICULTY Verified 08/12/23 21:08 BREATHING, TONGUE SWELLS Sulfa (Sulfonamide Allergy Severe DIFFICULTY Verified 08/12/23 21:08 Antibiotics) BREATHING, TONGUE SWELLS Consultations 08/12/23 23:47 Consult Cardiology Routine 08/14/23 08:01 Consult Nephrology Routine Ordered Studies 08/12/23 19:49 CT head/brain wo con Stat 08/14/23 23:07 CT abd pelvis wo con Stat Hospital Course (1) Hypertensive crisis: 88 year old woman with history of HFpEF, PVD, Hypertension, HLD, DM2, CKD, hyponatremia, MGUS, familial hypocalciuric hypercalcemia, mood disorder who presented with significantly elevated blood pressure Hypertensive urgency Chest pain likely secondary to above Mild troponin elevation-likely demand ischemia secondary to above ECHO: Left ventricle systolic function is normal. EF 60 to 65%. Mild concentric LVH with grade 1 diastolic dysfunction. Mild mitral regurgitation. Trace tricuspid regurgitation. Findings do not suggest pulmonary hypertension. Antihypertensives were adjusted per [employer] and [employer] recommendations Metoprolol changed to labetalol 200 mg BID Verapamil discontinued Started on amlodipine 5 mg daily Continue hydralazine 100 mg TID, Isosorbide 30 mg TID. 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 Diverticulosis, without acute diverticulitis. No small bowel obstruction. No free intraperitoneal air. Currently asymptomatic Patient not interested in aggressive/invasive procedures New LBBB Likely rate related per Cardiology Appreciate Input Patients prefers conservative management DM II HbA1c 6.5 Continue home diabetic regimen Chronic diastolic heart failure ECHO as above Euvolemic Lasix stopped as above H/O PVD Hyperlipidemia Continue aspirin, statin Macular degeneration Chronic hyponatremia Mood disorder Continue home medications Total Time Total Time Spent Total Time Spent (In Minutes): 40 Total Time Includes: Examination of the Patient, Discharge Planning, Medication Reconciliation and Communication With Other Providers Discharge Plan Discharge Items Patient Disposition: Home - Self-Care Reason For Visit: Elevated Blood pressure Discharge Diagnosis: Uncontrolled Hypertension Acute on chronic kidney disease Cholelithiasis Activity: Resume your previous activity Non-emergency contact: Primary Care Provider Call non-emergency contact if: you have any medication questions Follow-up/Referrals: Cornel Smith MD [Surgeon] - (The Nephrology office will contact you for a follow up appointment.) Dalila Bauman MD [Primary Care Provider] - (Date & Time 08/25/2023 10:20 AM Provider Dalila Bauman MD Department General Internal Medicine [facility] ) Diet: Carb Consistent or DM2 and Heart Healthy Fluids: 1500ml (6 cups) Addtl Attending Provider Instructions: Mrs Urrutia You came to the hospital due to significantly elevated blood pressure. You were managed for the above listed diagnoses. Your blood pressure is better controlled. The following changes were made to your medications: -STOP Lisinopril -STOP Verapamil -STOP Lasix for now -STOP Metoprolol succinate (Replaced by Labetalol) -START Labetalol -START Amlodipine Continue taking your other medications Adhere to the 1500cc per day fluid restriction You had a brief abdominal pain and CT abdomen showed gall stone. Please ensure follow up with Nephrology and your Primary Doctor. It was a pleasure taking care of you. Pending Studies at Discharge: No Stand-Alone Forms: My [employer], Smoking Cessation Medications and DC Order Prescriptions: New labetalol 200 mg Tablet 200 mg PO BID Qty: 60 0RF amlodipine [Norvasc] 5 mg Tablet 5 mg PO DAILY Qty: 30 0RF Continued repaglinide 2 mg Tablet 2 mg PO AC cyanocobalamin (vitamin B-12) [Vitamin B-12] 1,000 mcg Tablet 1,000 mcg PO [id number] Rx Instructions: MON, WED, FRI aspirin 81 mg Tablet,Delayed Release (Dr/Ec) 81 mg PO QAM acetaminophen 500 mg Tablet 1,000 mg PO BID sertraline 50 mg Tablet 25 mg PO QAM Qty: 30 0RF loratadine 10 mg tablet 10 mg PO HS Tradjenta 5 mg tablet 5 mg PO DAILY atorvastatin 80 mg tablet 80 mg PO HS Jardiance 25 mg tablet 25 mg PO DAILY isosorbide dinitrate 30 mg tablet 30 mg PO TID Qty: 90 1RF Rx Instructions: allow nitrate-free interval of 12-14 hrs per 24-hr period insulin glargine [Lantus U-100 Insulin] 100 unit/mL Solution 33 unit SUBCUT DAILY Rx Instructions: PER [facility] "ON LANTUS 33 UNITS, UNTIL SHE GETS TRESBIA" hydralazine 100 mg tablet 100 mg PO TID melatonin 1 mg Tablet 1 mg PO HS Rx Instructions: PER [facility] "MAY INCREASE TO 5 MG AT HS". coQ10 (ubiquinol) 200 mg Capsule 200 mg PO DAILY insulin degludec [Tresiba FlexTouch U-100] 100 unit/mL (3 mL) insulin pen 33 unit SUBCUT QAM Rx Instructions: PER [facility] "ON LANTUS 33 UNITS, UNTIL SHE GETS TRESBIA" Macular Health Formula 5-1-7.5 mg Capsule 1 cap PO QID Prevagen 10 mg PO QPM Discontinued metoprolol succinate 100 mg Tablet Extended Release 24 Hr 100 mg PO QAM verapamil 180 mg Tablet Extended Release 180 mg PO QPM Qty: 30 0RF furosemide 20 mg tablet 20 mg PO .[id number] Rx Instructions: PER [facility] lisinopril 20 mg tablet 20 mg PO BID Discharge Orders: Discharge Order (Routine); Ordered 08/21/23 Ordered By: Merari Warner/Other Patient Handouts: Hypoglycemia (Low Blood Sugar), Managing Type 2 Diabetes Admission Data Admit Date/Time: 08/12/23 22:09 Attending Provider: Merari Segura I. Admit Provider: Olman Ramos Primary Care Provider: Dalila Bauman Other Providers: Eve Carney; Cornel Smith; Alee Patterson Japheth E.; Gonzalo Reece; Nicolasa De Luna; Masoud King Other Interventions: Discharge Summary Assessment (RN) Last Done: 08/21/23 14:34
== END 2023-08-21 15:32 | disposition home or self-care (01) | DRG 305 ==
LOC: ED 19:23 → SUATTDRO 22:09 → EDINP 22:09 → 4W 23:48

== ENCOUNTER 2023-09-01 08:56 | Inpatient (IN) ==
--- NOTE | 2023-09-01 09:17 | Emergency Department Note ---
Impression & Plan Hypoxia, CHF (congestive heart failure), Hypertension, SOB (shortness of breath), Elevated troponin ED Provider Note NAME: BERNARD TRAN AGE: 88 SEX: F : 1935 ARRIVES VIA: Ambulance INFORMANT: [Patient] ED PROVIDER(S): [Tyler Gaines MD] CHIEF COMPLAINT: Shortness of breath HISTORY OF PRESENT ILLNESS: The patient is an 88-year-old female who presents to the ER for shortness of breath. The patient states that her O2 saturation was 83% at home. As per EMS, the sat was in the upper 80s. The patient was in our hospital just over 2 weeks ago. She was in for high blood pressure. She had significant medication changes made during this hospitalization. She is now on labetalol and Norvasc for blood pressure control. The patient has felt woozy and dizzy and not quite herself since discharge from the hospital. She blames the medications. Today, the patient's blood pressure was high, she noticed a headache when she was standing. She has not had fever or increased cough. She has not had chest pain. She has noticed some slight pedal edema but she states this is because they stopped her Lasix with the last hospitalization. Of note, the patient has not taken any medications yet this morning. PMHx/PSHx/Social Hx: See Below PHYSICAL EXAM: GENERAL: Patient is in no acute distress. HEENT: No acute trauma, normocephalic atraumatic, mucous membranes moist, no nasal congestion. NECK: No stridor, no adenopathy, no meningismus, trachea is midline. LUNGS: A few scattered crackles heard, no wheezing, breath sounds are diminished bilaterally. No respiratory distress. HEART: No murmur, regular rate, extra beats heard. ABDOMEN: Soft, nontender, no peritonitis. EXTREMITIES: No cyanosis, full range of motion of all the joints without pain or difficulty. Mild bilateral pedal edema. NEUROLOGIC: Oriented x 3, no acute motor or sensory deficits, no focal weakness. SKIN: No jaundice, no diaphoresis. Pale. DIFFERENTIAL DIAGNOSIS: Fluid overload, CHF, bronchitis or pneumonia, anemia, cardiac ischemia, medication reaction, among others. EMERGENCY DEPARTMENT PROCEDURES: MEDICAL DECISION MAKING: There is no leukocytosis. The patient is anemic but this is a chronic finding for her. There was a normal platelet count. No coagulopathy. Creatinine was slightly elevated however, the patient does have a history of some renal insufficiency. Magnesium is low 1.5. No concerning liver enzyme elevation. ECG shows a sinus rhythm with some PVCs. No obvious acute ischemia. Cardiac enzyme testing x 1 was slightly elevated. This troponin elevation could be consistent with cardiac injury or potentially just mismatch from her hypertension and dyspnea. Of note, the patient has a history of a mild troponin elevation. BNP was elevated consistent with CHF and fluid overload. Chest x- ray does show findings of CHF. On exam, patient had a few crackles in her lungs. She was hypertensive. She was not not toxic-appearing. Respiratory bio fire was run, this returned unremarkable. The patient was maintained on nasal cannula O2 supplementation. A Delvalle catheter was ordered to monitor her urine output. She received IV Lasix, 40 mg. She was given IV hydralazine for her high blood pressure. She received IV magnesium and 1 inch of nitroglycerin paste. The patient is in need of a hospital stay. She is hypoxic and fluid overloaded. She is in CHF and quite hypertensive. She will require diuresis inpatient. I spoke with the patient and case management, the on-call hospitalist was consulted. Prior/Outside records/notes reviewed: Today's EMS notes describing her presentation and transport to this hospital. ECG per my interpretation: Indication was shortness of breath. The ECG shows a sinus rhythm with frequent PVCs. There is a left bundle branch block. The rate is 83. There is no acute ST elevation. The QTc is 467. Compared to an ECG from 14 August 2023, PVCs are now present. Continuous Cardiac Monitoring per my interpretation: An order was placed for continuous cardiac monitoring. The monitor shows a rate of 85 with sinus rhythm with PVCs. Imaging/x-ray results per my interpretation: Chest x-ray shows what appears to be CHF. No pneumothorax. Chronic Medical/Social conditions affecting care: Advanced age. Care/Management discussed with: Case management, the on-call hospitalist. Level of care consideration(s): After review of the information above and other included data: --I believe the patient requires escalation of care to admission Critical Care Note: I have personally spent 43 minutes of critical care time in the direct management of this patient. This includes bedside care, interpretation of diagnostic studies, and testing, discussion with consultants, patient, and family members, and other required patient management activities. This 43 minutes is in excess of all separately billable procedures. DISPOSITION: Admission Past Med/Surg History Medical History CKD (chronic kidney disease) stage 3, GFR 30-59 ml/min Anxiety Tingling Headache Hypertensive urgency Diabetes mellitus with kidney complication, without long-term current use of insulin DM2 (diabetes mellitus, type 2) H/O: HTN (hypertension) Surgical History Hx of cataract surgery Social History Smoking Status: Never smoker Second Hand Exposure: Yes; Do You Dip or Chew Tobacco: No; Hx Alcohol Use: No Hx Substance Use: No Preferred Language: Austrian Communication Ability: Effective Airport [employer]anner Required: No Beliefs That Will Affect Care: Spiritual marital status: / Current Living Situation: Alone Feels Safe at Home: Yes Assistive Devices: Glasses, Hearing Aid - Bilateral and Walker Allergies Allergies Allergy/AdvReac Type Severity Reaction Status Date / Time latex Allergy Severe DIFFICULTY Verified 08/12/23 21:08 BREATHING, TONGUE SWELLS Penicillins Allergy Severe DIFFICULTY Verified 08/12/23 21:08 BREATHING, TONGUE SWELLS Sulfa (Sulfonamide Allergy Severe DIFFICULTY Verified 08/12/23 21:08 Antibiotics) BREATHING, TONGUE SWELLS Home Meds Home Medications Medication Instructions Recorded Confirmed acetaminophen 500 mg tablet 1,000 mg PO BID 10/31/21 09/01/23 aspirin 81 mg tablet,delayed 81 mg PO QAM 10/31/21 09/01/23 release repaglinide 2 mg tablet 2 mg PO AC 10/31/21 09/01/23 linagliptin 5 mg tablet (Tradjenta) 5 mg PO DAILY 12/16/21 09/01/23 loratadine 10 mg tablet 10 mg PO HS 12/16/21 09/01/23 atorvastatin 80 mg tablet 80 mg PO HS 09/02/22 09/01/23 empagliflozin 25 mg tablet 25 mg PO DAILY 09/02/22 09/01/23 (Jardiance) coQ10 (ubiquinol) 200 mg capsule 200 mg PO DAILY 08/12/23 09/01/23 hydralazine 100 mg tablet 100 mg PO TID 08/12/23 09/01/23 insulin degludec 100 unit/mL (3 30 unit subcut QAM 08/12/23 09/01/23 mL) subcutaneous pen (Tresiba FlexTouch U-100 insulin) [id number]-macoux 5 mg-zeaxanth 1 cap PO QID 08/12/23 09/01/23 1 mg-bilberry 7.5 mg-herbal capsule ([employer] Formula) Previous Rx's Medication Instructions Recorded sertraline 50 mg tablet 25 mg (1/2 x 50 mg) PO QAM #30 tabs 11/08/21 isosorbide dinitrate 30 mg tablet 30 mg PO TID #90 tabs 09/04/22 amlodipine 5 mg tablet (Norvasc) 5 mg PO DAILY #30 tabs 08/21/23 labetalol 200 mg tablet 200 mg PO BID #60 tabs 08/21/23 Results & Data (ED) Vital Signs Vital Signs - 24 hr 09/01/23 09:06 09/01/23 09:07 09/01/23 09:09 Temperature Temperature Source Pulse Rate 84 88 Pulse Rate [Apical] Pulse Rate from SpO2 Sensor 88 Pulse Rhythm Regular Respiratory Rate 28 H 22 Respiratory Effort / Characteristics Respiratory Depth Respiratory Pattern Blood Pressure 217/96 H Blood Pressure [Right Arm] Blood Pressure Mean 157 Blood Pressure Mean [Right Arm] Blood Pressure Position Blood Pressure Position [Right Arm] Pulse Oximetry 95 90 Oxygen Delivery Method Nasal Cannula Oxygen Flow Rate 2 Sepsis Recent Fever Within 48 Hours Sepsis New/Unexplained Change in Mental Status Sepsis Action Taken by Nursing 09/01/23 09:10 09/01/23 09:11 09/01/23 09:20 Temperature Temperature Source Pulse Rate 85 85 82 Pulse Rate [Apical] Pulse Rate from SpO2 Sensor 85 85 Pulse Rhythm Respiratory Rate 18 22 Respiratory Effort / Characteristics Respiratory Depth Respiratory Pattern Blood Pressure Blood Pressure [Right Arm] Blood Pressure Mean Blood Pressure Mean [Right Arm] Blood Pressure Position Blood Pressure Position [Right Arm] Pulse Oximetry 93 94 Oxygen Delivery Method Oxygen Flow Rate Sepsis Recent Fever Within 48 Hours Sepsis New/Unexplained Change in Mental Status Sepsis Action Taken by Nursing 09/01/23 09:27 09/01/23 09:30 09/01/23 09:32 Temperature Temperature Source Pulse Rate 79 81 Pulse Rate [Apical] Pulse Rate from SpO2 Sensor 84 Pulse Rhythm Respiratory Rate 24 Respiratory Effort / Characteristics Non-Labored Spontaneous Respiratory Depth Normal Respiratory Pattern Regular Blood Pressure 217/96 H Blood Pressure [Right Arm] Blood Pressure Mean Blood Pressure Mean [Right Arm] Blood Pressure Position Blood Pressure Position [Right Arm] Pulse Oximetry 93 Oxygen Delivery Method Nasal Cannula Oxygen Flow Rate 2 Sepsis Recent Fever Within 48 Hours Sepsis New/Unexplained Change in Mental Status Sepsis Action Taken by Nursing 09/01/23 09:32 09/01/23 09:32 09/01/23 09:32 Temperature 36.8 C Temperature Source Temporal Artery Scan Pulse Rate 88 72 Pulse Rate [Apical] Pulse Rate from SpO2 Sensor 71 Pulse Rhythm Respiratory Rate 18 21 Respiratory Effort / Characteristics Non-Labored Spontaneous Respiratory Depth Normal Respiratory Pattern Blood Pressure 202/84 H 202/84 H Blood Pressure [Right Arm] Blood Pressure Mean 123 146 Blood Pressure Mean [Right Arm] Blood Pressure Position Sitting Blood Pressure Position [Right Arm] Pulse Oximetry 88 L 92 Oxygen Delivery Method Room Air Oxygen Flow Rate Sepsis Recent Fever Within 48 Hours No Sepsis New/Unexplained Change in Mental Status No Sepsis Action Taken by Nursing No Action Required 09/01/23 09:37 09/01/23 09:40 09/01/23 09:46 Temperature Temperature Source Pulse Rate 73 Pulse Rate [Apical] 72 Pulse Rate from SpO2 Sensor 73 Pulse Rhythm Respiratory Rate 16 18 Respiratory Effort / Characteristics Non-Labored Spontaneous Respiratory Depth Normal Respiratory Pattern Blood Pressure Blood Pressure [Right Arm] 213/72 H Blood Pressure Mean Blood Pressure Mean [Right Arm] 119 Blood Pressure Position Blood Pressure Position [Right Arm] Sitting Pulse Oximetry 97 94 97 Oxygen Delivery Method Nasal Cannula Nasal Cannula Oxygen Flow Rate 2 2 Sepsis Recent Fever Within 48 Hours Sepsis New/Unexplained Change in Mental Status Sepsis Action Taken by Nursing 09/01/23 09:46 09/01/23 09:46 09/01/23 09:50 Temperature Temperature Source Pulse Rate 74 73 Pulse Rate [Apical] Pulse Rate from SpO2 Sensor 75 74 Pulse Rhythm Respiratory Rate 20 15 Respiratory Effort / Characteristics Respiratory Depth Respiratory Pattern Blood Pressure 213/72 H Blood Pressure [Right Arm] Blood Pressure Mean 130 Blood Pressure Mean [Right Arm] Blood Pressure Position Blood Pressure Position [Right Arm] Pulse Oximetry 94 94 Oxygen Delivery Method Oxygen Flow Rate Sepsis Recent Fever Within 48 Hours Sepsis New/Unexplained Change in Mental Status Sepsis Action Taken by Nursing 09/01/23 10:00 09/01/23 10:00 09/01/23 10:01 Temperature Temperature Source Pulse Rate 69 71 Pulse Rate [Apical] 77 Pulse Rate from SpO2 Sensor 62 75 Pulse Rhythm Respiratory Rate 18 16 20 Respiratory Effort / Characteristics Non-Labored Spontaneous Respiratory Depth Normal Respiratory Pattern Blood Pressure Blood Pressure [Right Arm] 220/77 H Blood Pressure Mean Blood Pressure Mean [Right Arm] 124 Blood Pressure Position Blood Pressure Position [Right Arm] Sitting Pulse Oximetry 97 94 94 Oxygen Delivery Method Nasal Cannula Oxygen Flow Rate 2 Sepsis Recent Fever Within 48 Hours Sepsis New/Unexplained Change in Mental Status Sepsis Action Taken by Nursing 09/01/23 10:01 09/01/23 10:10 09/01/23 10:16 Temperature Temperature Source Pulse Rate 71 Pulse Rate [Apical] Pulse Rate from SpO2 Sensor 68 Pulse Rhythm Respiratory Rate 21 Respiratory Effort / Characteristics Respiratory Depth Respiratory Pattern Blood Pressure 220/77 H 211/107 H Blood Pressure [Right Arm] Blood Pressure Mean 92 165 Blood Pressure Mean [Right Arm] Blood Pressure Position Blood Pressure Position [Right Arm] Pulse Oximetry 95 Oxygen Delivery Method Oxygen Flow Rate Sepsis Recent Fever Within 48 Hours Sepsis New/Unexplained Change in Mental Status Sepsis Action Taken by Nursing 09/01/23 10:16 09/01/23 10:20 09/01/23 10:30 Temperature Temperature Source Pulse Rate 70 72 Pulse Rate [Apical] Pulse Rate from SpO2 Sensor 75 76 Pulse Rhythm Respiratory Rate 23 20 Respiratory Effort / Characteristics Respiratory Depth Respiratory Pattern Blood Pressure 213/83 H Blood Pressure [Right Arm] Blood Pressure Mean 176 Blood Pressure Mean [Right Arm] Blood Pressure Position Blood Pressure Position [Right Arm] Pulse Oximetry 95 94 Oxygen Delivery Method Oxygen Flow Rate Sepsis Recent Fever Within 48 Hours Sepsis New/Unexplained Change in Mental Status Sepsis Action Taken by Nursing 09/01/23 10:30 09/01/23 10:39 09/01/23 10:39 Temperature Temperature Source Pulse Rate 90 81 Pulse Rate [Apical] Pulse Rate from SpO2 Sensor 67 80 Pulse Rhythm Respiratory Rate 27 H 15 Respiratory Effort / Characteristics Respiratory Depth Respiratory Pattern Blood Pressure 196/99 H Blood Pressure [Right Arm] Blood Pressure Mean 139 Blood Pressure Mean [Right Arm] Blood Pressure Position Blood Pressure Position [Right Arm] Pulse Oximetry 94 94 Oxygen Delivery Method Oxygen Flow Rate Sepsis Recent Fever Within 48 Hours Sepsis New/Unexplained Change in Mental Status Sepsis Action Taken by Nursing 09/01/23 10:40 09/01/23 10:47 09/01/23 10:47 Temperature Temperature Source Pulse Rate 82 78 Pulse Rate [Apical] Pulse Rate from SpO2 Sensor 81 84 Pulse Rhythm Respiratory Rate 19 21 Respiratory Effort / Characteristics Respiratory Depth Respiratory Pattern Blood Pressure 209/127 H Blood Pressure [Right Arm] Blood Pressure Mean 171 Blood Pressure Mean [Right Arm] Blood Pressure Position Blood Pressure Position [Right Arm] Pulse Oximetry 94 95 Oxygen Delivery Method Oxygen Flow Rate Sepsis Recent Fever Within 48 Hours Sepsis New/Unexplained Change in Mental Status Sepsis Action Taken by Nursing 09/01/23 10:50 09/01/23 11:00 09/01/23 11:00 Temperature Temperature Source Pulse Rate 73 73 Pulse Rate [Apical] Pulse Rate from SpO2 Sensor 74 68 Pulse Rhythm Respiratory Rate 20 16 Respiratory Effort / Characteristics Respiratory Depth Respiratory Pattern Blood Pressure 218/88 H Blood Pressure [Right Arm] Blood Pressure Mean 169 Blood Pressure Mean [Right Arm] Blood Pressure Position Blood Pressure Position [Right Arm] Pulse Oximetry 95 92 Oxygen Delivery Method Oxygen Flow Rate Sepsis Recent Fever Within 48 Hours Sepsis New/Unexplained Change in Mental Status Sepsis Action Taken by Group Home Medications Current Medication List: was personally reviewed by me Laboratory Data Attestation: I reviewed the patient's lab results. 09/01/23 09:14 09/01/23 09:14 Lab Results 09/01/23 09/01/23 09/01/23 Range/Units 09:14 10:07 10:55 WBC 9.81 (4.8-10.8) K/ul RBC 3.30 L (4.20-5.40) M/uL Hgb 10.7 L (12.0-16.0) g/dl Hct 31.6 L (37.0-47.0) % MCV 95.8 (80.0-100.0) fL MCH 32.4 (25.0-34.0) pg MCHC 33.9 (32.0-36.0) g/dL RDW Std Deviation 47.4 H (36.4-46.3) fL RDW Coeff of Rojelio 13.3 (11.5-14.5) % Plt Count 303 (130-400) K/uL MPV 9.7 (9.4-12.4) fL Immature Gran % (Auto) 0.4 % Neut % (Auto) 80.0 % Lymph % (Auto) 11.3 % [place] % (Auto) 7.5 % Eos % (Auto) 0.5 % Baso % (Auto) 0.3 % Neut # (Auto) 7.84 H (1.40-6.50) K/uL Lymph # (Auto) 1.11 L (1.20-3.40) K/uL [place] # (Auto) 0.74 H (0.11-0.59) K/uL Eos # (Auto) 0.05 (0.00-0.50) K/uL Baso # (Auto) 0.03 (0.00-0.20) K/uL Immature Gran # (Auto) 0.04 (0.01-0.20) K/uL PT 11.4 (9.0-12.0) Seconds INR 1.0 (0.9-1.1) APTT 35 H (21-31) Seconds PTT Ratio 1.2 Sodium 136 (136-145) mmol/L Potassium 3.7 (3.5-5.1) mmol/L Chloride 105 (98-107) mmol/L Carbon Dioxide 22 (21-32) mmol/L Anion Gap 9 (3-11) BUN 27 H (6-23) mg/dl Creatinine 1.44 H (0.6-1.2) mg/dl Est Cr Clr Drug Dosing 28.5 ml/min Est GFR ( Amer) 37.2 ml/min Est GFR (Non-Af Amer) 32.1 ml/min BUN/Creatinine Ratio 18.8 (10-20) Glucose 78 (70-99(Fasting)) mg/dl Calcium 9.5 (8.6-10.3) mg/dl Magnesium 1.5 L (1.7-2.4) mg/dl Total Bilirubin 0.6 (0.2-1.0) mg/dl AST 16 (13-39) U/L ALT 16 (7-52) U/L Alkaline Phosphatase 43 (34-104) U/L Troponin I High Sens 33.8 H 39.6 H (0-14) pg/ml B-Natriuretic Peptide 1221 H (0-100) pg/ml Total Protein 7.5 (6.0-8.3) gm/dl Albumin 3.8 (3.4-5.0) gm/dl Globulin 3.7 (2.5-4.0) gm/dl Albumin/Globulin Ratio 1.0 (0.9-2) Adenovirus (PCR) Not Detected (NotDetected) B. pertussis DNA (PCR) Not Detected (NotDetected) B.parapertussis DNA PCR Not Detected (NotDetected) C. pneumoniae DNA (PCR) Not Detected (NotDetected) Coronavirus OC43 (PCR) Not Detected (NotDetected) Coronavirus HKU1 (PCR) Not Detected (NotDetected) Coronavirus 229E (PCR) Not Detected (NotDetected) SARS-CoV-2 (PCR) Not Detected (NotDetected) Coronavirus NL63 (PCR) Not Detected (NotDetected) Human Metapneumovir PCR Not Detected (NotDetected) Influenza Type A (PCR) Not Detected (NotDetected) Influenza Type B (PCR) Not Detected (NotDetected) M. pneumoniae (PCR) Not Detected (NotDetected) Parainfluenza 1 (PCR) Not Detected (NotDetected) Parainfluenza 2 (PCR) Not Detected (NotDetected) Parainfluenza 3 (PCR) Not Detected (NotDetected) Parainfluenza 4 (PCR) Not Detected (NotDetected) RSV (PCR) Not Detected (NotDetected) Entero/Rhino (PCR) Not Detected (NotDetected) Administered Medications Hydralazine HCl (Hydralazine Hcl 20 Mg/Ml Vial) 5 mg IV Q6H PRN PRN Reason: systolic blood pressure =>185 Stop: 10/01/23 12:15 Last Admin: 09/01/23 14:14 Dose: 5 mg Documented By: KMO Discontinued Medications Amlodipine Besylate (Amlodipine Besylate 5 Mg Tab) 5 mg PO NOW ONE Stop: 09/01/23 09:12 Last Admin: 09/01/23 09:20 Dose: 5 mg Documented By: CC Furosemide (Furosemide 40 Mg/4 Ml Vial) 40 mg IV ONE ONE Stop: 09/01/23 09:33 Last Admin: 09/01/23 10:04 Dose: 40 mg Documented By: CC Hydralazine HCl (Hydralazine Hcl 20 Mg/Ml Vial) 10 mg IV NOW STA Stop: 09/01/23 10:59 Last Admin: 09/01/23 11:02 Dose: 10 mg Documented By: GINA Hydralazine HCl (Hydralazine Tab 50 Mg Tab) 100 mg PO NOW STA Stop: 09/01/23 11:03 Last Admin: 09/01/23 11:42 Dose: 100 mg Documented By: BHAVANA Magnesium Sulfate/Dextrose (Magnesium Sulfate / D5w) 1 gm in 100 mls @ 100 mls/hr IV NOW STA Stop: 09/01/23 10:47 Last Infusion: 09/01/23 11:32 Dose: Infused Documented By: Admin: 09/01/23 10:04 Dose: 100 mls/hr Documented By: GINA Labetalol HCl (Labetalol Hcl Iv 5 Mg/Ml 20ml) 10 mg IV NOW STA Stop: 09/01/23 09:12 Last Admin: 09/01/23 09:27 Dose: 10 mg Documented By: GINA Co-signed By: MARGARITO Nitroglycerin (Nitroglycerin 2% Ointment 30gm Tube) 1 inch EXT NOW STA Stop: 09/01/23 09:33 Last Admin: 09/01/23 10:05 Dose: 1 inch Documented By: GINA Imaging Data Radiologist's Impression: Chest X-Ray 09/01/23 09:09 XR chest 1V portable CLINICAL HISTORY: Dyspnea. COMPARISON STUDY: Chest radiograph August 12, 2023. FINDINGS: No pneumothorax. No definite pleural effusion. Interstitial thickening has developed. Right basilar airspace opacity is present. Cardiomediastinal silhouette is stable. IMPRESSION: 1. Interval development of interstitial pulmonary edema. 2. Right basilar opacity which likely reflects alveolar pulmonary edema. Superimposed pneumonia could appear similar. ACT 112: Negative or not required by law. Electronically signed by: Demetrius Sena M.D. 09/01/2023 9:58 AM Discharge Plan Visit Data Chief Complaint: Shortness of Breath/Dyspnea ED Provider: Tyler Gaines Discharge Problem: Hypoxia, CHF (congestive heart failure), Hypertension, SOB (shortness of breath), Elevated troponin Patient Disposition: Admitted As Inpatient Condition: Fair Discharge Problem: CHF (congestive heart failure) Qualifiers: Heart failure type: unspecified Heart failure chronicity: acute Qualified Code(s): I50.9 - Heart failure, unspecified Hypertension Qualifiers: Hypertension type: unspecified Qualified Code(s): I10 - Essential (primary) hypertension
[2023-09-01] MEDS: amLODIPine BESYLATE 5 MG TAB PO ONE (09:20)
[2023-09-01] MEDS: LABETALOL HCL IV 5 MG/ML 20ML IV STA (09:27)
[2023-09-01 09:40] LABS: Basophils # (auto) 0.03 K/uL (0.00-0.20); Basophils % (auto) 0.3 %; Eosinophils # (auto) 0.05 K/uL (0.00-0.50); Eosinophils % (auto) 0.5 %; Hematocrit (blood only) 31.6 % (37.0-47.0); Hemoglobin 10.7 g/dl (12.0-16.0); Immature Granulocytes # (auto) 0.04 K/uL (0.01-0.20); Immature Granulocytes % (auto) 0.4 %; Lymphocytes # (auto) 1.11 K/uL (1.20-3.40); Lymphocytes % (auto) 11.3 %; Mean Corpuscular Hemoglobin 32.4 pg (25.0-34.0); Mean Corpuscular Hgb Conc 33.9 g/dL (32.0-36.0); Mean Corpuscular Volume 95.8 fL (80.0-100.0); Mean Platelet Volume 9.7 fL (9.4-12.4); Monocytes # (auto) 0.74 K/uL (0.11-0.59); Monocytes % (auto) 7.5 %; Neutrophils # (auto) 7.84 K/uL (1.40-6.50); Platelet Count 303 K/uL (130-400); RDW Coefficient of Variation 13.3 % (11.5-14.5); RDW Standard Deviation 47.4 fL (36.4-46.3); White Blood Count 9.81 K/ul (4.8-10.8)
[2023-09-01 09:47] LABS: Albumin Level 3.8 gm/dl (3.4-5.0); BUN Creatinine Ratio 18.8 (10-20); Bilirubin,Total 0.6 mg/dl (0.2-1.0); Calcium 9.5 mg/dl (8.6-10.3); Creatinine Clr Calc Pharmacy 28.5 ml/min; Est GFR (African American) 37.2 ml/min; Est GFR (Non-African American) 32.1 ml/min; Globulin 3.7 gm/dl (2.5-4.0); Magnesium 1.5 mg/dl (1.7-2.4); Potassium 3.7 mmol/L (3.5-5.1); Total Protein 7.5 gm/dl (6.0-8.3)
[2023-09-01 09:53] LABS: Troponin I High Sensitivity 33.8 pg/ml (0-14)
[2023-09-01 09:58] LABS: Partial Thromboplastin Ratio 1.2; Partial Thromboplastin Time 35 Seconds (21-31); Prothrombin Time 11.4 Seconds (9.0-12.0)
--- NOTE | 2023-09-01 09:59 | XRay Report ---
XR chest 1V portable CLINICAL HISTORY: Dyspnea. COMPARISON STUDY: Chest radiograph August 12, 2023. FINDINGS: No pneumothorax. No definite pleural effusion. Interstitial thickening has developed. Right basilar airspace opacity is present. Cardiomediastinal silhouette is stable. IMPRESSION: 1. Interval development of interstitial pulmonary edema. 2. Right basilar opacity which likely reflects alveolar pulmonary edema. Superimposed pneumonia could appear similar. ACT 112: Negative or not required by law. Electronically signed by: Demetrius Sena M.D. 09/01/2023 9:58 AM
[2023-09-01] MEDS: MAGNESIUM SULFATE / D5W 1 GM/100 ML BAG IV STA (10:04)
[2023-09-01] MEDS: FUROSEMIDE 40 MG/4 ML VIAL IV ONE (10:04)
[2023-09-01] MEDS: NITROGLYCERIN 2% OINTMENT 30GM TUBE EXT STA (10:05)
--- NOTE | 2023-09-01 10:17 | History & Physical Report ---
Date of Service September 01, 2023 Assessment & Plan (1) Hypertensive emergency: (2) Acute heart failure with preserved ejection fraction: (3) Elevated troponin I level: Plan Ms. Urrutia is an 88 year old woman with past medical history remarkable for chronic heart failure with preserved EF (EF 60%, TTE 2023), PVD, hypertension, hyperlipidemia, DM 2 insulin requiring, CKD 4(baseline creatinine 1.7),MGUS, familial hypocalciuric hypercalcemia, carotid disease and renal artery stenosis, mood disorder admitted for HTN emergency and acute HFpEF. Patient doing better with IV dosing and resumption of PO regimen. Plan to discontinue labetolol in favor for coreg. patient wishes to discontinue at this time. Nephrology consult for IV diuersis recommendations #Hypertensive Emergency #Acute Heart failure with persevered EF #Mild Trop elevation ECHO 08/14/2023, EF 60-65%, G1DD, no PHTN Home regimen: Hydralazine 100mg TID, Isordil 30mg TID, recently started on Labetolol 200mg BID Last admission verapamil discontinued in favor of amlodipine, ANANT discontinued, lasix held Resume home regimen: Hydralazine, isordil, labetolol, amlodipine -s/p IV lasix 40mg in ED, labetalol 10mg IV, hydralazine 10mg IV Declined liu catheter placement -Encourage IOs PO meds now Daily weights Discontinue labetalol in favor for 12.5mg coreg BID -Patient wishes to discontinue labetolol -Consult nephrology for diuresis guidance #NSVT Asymptomatic, < 30seconds -Continue BB as above -Cardiology consult #CKD IV #Renal artery stenosis. Left 50% origin stenosis & atrophic right kidney, on 2022 renal duplex Avoid nephrotoxic agents, including ANANT/ARB Nephrology consult to discuss ongoing diuresis #Asymptomatic 50-69% SLIME stenosis, stable velocities on most recent duplex #Asymptomatic < 50% LICA stenosis Followed with vascular surgery for R ICA stenosis Resume home ASA and statin #LBBB -Chronic, Labtelol to coreg Monitor on Tele #DMII Tresiba 30U daily, Jardiance, Tradjenta, repaglinide -SSI 16 U BID, correction factor #Depression Continue Sertraline DVT ppx Heparin Admit PCU tele Admission and Anticipated Discharge Date Admission Date: Time spent evaluating patient, direct bedside care, chart review, placing orders, interpretation of diagnostic studies, discussion with consultants, patient, and family members, as well as other required patient management a ctivities is 60 minutes. History of Present Illness Chief Complaint: SOB, edema Primary Care Provider: Dalila Bauman MD Ms. Urrutia is an 88 year old woman with past medical history remarkable for chronic diastolic heart failure (EF 70%, TTE 2021), PVD, hypertension, hyperlipidemia, DM 2 insulin requiring, CKD 4(baseline creatinine 1.7),MGUS, familial hypocalciuric hypercalcemia, carotid disease and renal artery stenosis, mood disorder presented to [facility] ED due to feeling more fatigued, dyspnea, and pedal edema. Patient states since discharge she initially felt "great" but noted declined just 48 hours later, marked by fatigue and feeling "zombie like." In the last 3- 4 days, she noted leg swelling--which she reports has been sometime since she last had swelling in her extremities. She last took her medications the evening of 08/31. Her pressures since discharge have sustained mostly in 160-170s Patient was admitted 08/11 for hypertension. Metoprolol transitioned to Labetalol. Verapamil to amlodipine. Hydralazine to 100mg TID. Lasix held. ACEi discontinued 2/2 progressive CKD. Patient denies headache. Endorses 1 week chest pain, SOB, fluid retention. Patient compliant with home medications, did not take this morning given timing and presentation to ED. In the ED, vitals were notable for BP up to 217, HR of 80s, and O2 sat of low 80s on RA, transitioned to NC 2L Imaging revealed pulmonary edema. EKG LBBB [chronic] PVCs ED interventions: IV hydralazine, labetalol, lasix, nitro Consultants: Nephrology consulted upon eval Patient to be admitted to PCU/tele for further evaluation and management of HTN emergency with signs of HFpEF. Allergies Allergy/AdvReac Type Severity Reaction Status Date / Time latex Allergy Severe DIFFICULTY Verified 08/12/23 21:08 BREATHING, TONGUE SWELLS Penicillins Allergy Severe DIFFICULTY Verified 08/12/23 21:08 BREATHING, TONGUE SWELLS Sulfa (Sulfonamide Allergy Severe DIFFICULTY Verified 08/12/23 21:08 Antibiotics) BREATHING, TONGUE SWELLS Home Medications Medication Instructions Recorded Confirmed Type acetaminophen 500 mg tablet 1,000 mg PO BID 10/31/21 09/01/23 History aspirin 81 mg tablet,delayed 81 mg PO QAM 10/31/21 09/01/23 History release repaglinide 2 mg tablet 2 mg PO AC 10/31/21 09/01/23 History sertraline 50 mg tablet 25 mg (1/2 x 50 mg) PO QAM #30 tabs 11/08/21 09/01/23 Rx linagliptin 5 mg tablet (Tradjenta) 5 mg PO DAILY 12/16/21 09/01/23 History loratadine 10 mg tablet 10 mg PO HS 12/16/21 09/01/23 History atorvastatin 80 mg tablet 80 mg PO HS 09/02/22 09/01/23 History empagliflozin 25 mg tablet 25 mg PO DAILY 09/02/22 09/01/23 History (Jardiance) isosorbide dinitrate 30 mg tablet 30 mg PO TID #90 tabs 09/04/22 09/01/23 Rx coQ10 (ubiquinol) 200 mg capsule 200 mg PO DAILY 08/12/23 09/01/23 History hydralazine 100 mg tablet 100 mg PO TID 08/12/23 09/01/23 History insulin degludec 100 unit/mL (3 30 unit subcut QAM 08/12/23 09/01/23 History mL) subcutaneous pen (Tresiba FlexTouch U-100 insulin) kvzrljqr-hwz-ihaylh 5 mg-zeaxanth 1 cap PO QID 08/12/23 09/01/23 History 1 mg-bilberry 7.5 mg-herbal capsule ([employer] Formula) amlodipine 5 mg tablet (Norvasc) 5 mg PO DAILY #30 tabs 08/21/23 09/01/23 Rx labetalol 200 mg tablet 200 mg PO BID #60 tabs 08/21/23 09/01/23 Rx Past Med/Surg History Medical History CKD (chronic kidney disease) stage 3, GFR 30-59 ml/min Anxiety Tingling Headache Hypertensive urgency Diabetes mellitus with kidney complication, without long-term current use of insulin DM2 (diabetes mellitus, type 2) H/O: HTN (hypertension) Surgical History Hx of cataract surgery Social History Smoking Status: Never smoker Second Hand Exposure: Yes; Do You Dip or Chew Tobacco: No; Hx Alcohol Use: No Hx Substance Use: No Preferred Language: Sami Communication Ability: Effective 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 Head: (-) headache, (-) dizziness. Eye: (-) blurring of vision, (-) double vision, (-) redness. Ear: (-) hearing loss, (-) discharge, (-) vertigo Nose: (-) discharge, (-) bleeding, (-) congestion, (-) post nasal drip. Throat: (-) sore throat, (-) hoarseness of voice, (-) odynophagia. Cardiovascular: (++) chest pain, (-) palpitations, (-) syncope, (-) orthopnea, (-) PND, (++) leg swelling. Respiratory: (-) shortness of breath, (-) cough, (-) wheezing, (-) hemoptysis. Neuro: (-) weakness in extremities, (-) numbness, (-) tingling, (-) tremor. Gastrointestinal: (-) belly pain, (-) belly distension, (-) nausea, (-) vomiting, (-) diarrhea, (-) constipation, (-) hematemesis, (-) hematochezia, (-) bowel incontinence Genitourinary: (-) hematuria, (-) dysuria, (-) polyuria, (-) hesitancy, (-) frequency, (-) urinary incontinence. Musculoskeletal: (-) myalgia, (-) arthralgia. Skin: (-) rashes. Endocrine: (-) heat/cold intolerance. Physical Exam Physical Exam: GENERAL APPEARANCE: AxOx4, generally well-appearing female no acute distress. HEENT: NC, AT. MMM. EOMI, clear conjunctiva, oropharynx clear. NECK: Supple without lymphadenopathy. No stiffness or restricted ROM. HEART: Normal rate and regular rhythm, normal S1/S1, no m/r/g LUNGS:crackles bilateral bases ABDOMEN: Soft, nontender, nondistended with good bowel sounds heard. BACK: No CVAT, no obvious deformity. EXTREMITIES: Without cyanosis, +2+ edema above ankles NEUROLOGICAL: Grossly nonfocal. Alert and oriented, moving all 4 extremities. CN not formally tested but appear grossly intact Skin: Warm and dry without any rash. Results & Data Results & Data Vital Signs (Past 12 Hours) Vital Signs Temp Pulse Resp BP Pulse Ox O2 Del Method O2 Flow Rate 09/01/23 09:37 97 Nasal Cannula 2 09/01/23 09:32 36.8 C 88 18 202/84 H 88 L Room Air 09/01/23 09:32 Nasal Cannula 2 09/01/23 09:27 79 217/96 H 09/01/23 09:11 85 Laboratory Results Short CBC 09/01/23 Range/Units 09:14 WBC 9.81 (4.8-10.8) K/ul Hgb 10.7 L (12.0-16.0) g/dl Hct 31.6 L (37.0-47.0) % Plt Count 303 (130-400) K/uL BMP 09/01/23 09:14 Sodium 136 Potassium 3.7 Chloride 105 Carbon Dioxide 22 BUN 27 H Creatinine 1.44 H Glucose 78 Calcium 9.5 Liver Function 09/01/23 Range/Units 09:14 Total Bilirubin 0.6 (0.2-1.0) mg/dl AST 16 (13-39) U/L ALT 16 (7-52) U/L Alkaline Phosphatase 43 (34-104) U/L Albumin 3.8 (3.4-5.0) gm/dl Diagnostic Findings Chest X-Ray 09/01/23 09:09 XR chest 1V portable CLINICAL HISTORY: Dyspnea. COMPARISON STUDY: Chest radiograph August 12, 2023. FINDINGS: No pneumothorax. No definite pleural effusion. Interstitial thickening has developed. Right basilar airspace opacity is present. Cardiomediastinal silhouette is stable. IMPRESSION: 1. Interval development of interstitial pulmonary edema. 2. Right basilar opacity which likely reflects alveolar pulmonary edema. Superimposed pneumonia could appear similar. ACT 112: Negative or not required by law. Electronically signed by: Demetrius Sena M.D. 09/01/2023 9:58 AM Medications Administered Home Medications Medication Instructions Recorded Confirmed Last Taken acetaminophen 500 mg tablet 1,000 mg PO BID 10/31/21 09/01/23 08/12/23 08:00 aspirin 81 mg tablet,delayed 81 mg PO QAM 10/31/21 09/01/23 08/12/23 release repaglinide 2 mg tablet 2 mg PO AC 10/31/21 09/01/23 08/12/23 12:00 sertraline 50 mg tablet 25 mg (1/2 x 50 mg) PO QAM #30 tabs 11/08/21 09/01/23 08/12/23 linagliptin 5 mg tablet (Tradjenta) 5 mg PO DAILY 12/16/21 09/01/23 08/12/23 loratadine 10 mg tablet 10 mg PO HS 12/16/21 09/01/23 08/11/23 atorvastatin 80 mg tablet 80 mg PO HS 09/02/22 09/01/23 08/11/23 empagliflozin 25 mg tablet 25 mg PO DAILY 09/02/22 09/01/23 08/12/23 (Jardiance) isosorbide dinitrate 30 mg tablet 30 mg PO TID #90 tabs 09/04/22 09/01/23 08/12/23 12:00 coQ10 (ubiquinol) 200 mg capsule 200 mg PO DAILY 08/12/23 09/01/23 08/12/23 hydralazine 100 mg tablet 100 mg PO TID 08/12/23 09/01/23 08/12/23 12:00 insulin degludec 100 unit/mL (3 30 unit subcut QAM 08/12/23 09/01/23 08/12/23 mL) subcutaneous pen (Tresiba FlexTouch U-100 insulin) kejvhcdy-xoy-ugmwyz 5 mg-zeaxanth 1 cap PO QID 08/12/23 09/01/23 08/12/23 12:00 1 mg-bilberry 7.5 mg-herbal capsule ([employer] Formula) amlodipine 5 mg tablet (Norvasc) 5 mg PO DAILY #30 tabs 08/21/23 09/01/23 Unknown labetalol 200 mg tablet 200 mg PO BID #60 tabs 08/21/23 09/01/23 Unknown
--- NOTE | 2023-09-01 10:46 | Electrocardiogram Report ---
Test Reason : Blood Pressure : / mmHG Vent. Rate : 083 BPM Atrial Rate : 083 BPM P-R Int : 176 ms QRS Dur : 138 ms QT Int : 398 ms P-R-T Axes : 000 -06 135 degrees QTc Int : 467 ms Sinus rhythm with frequent Premature ventricular complexes Left bundle branch block Abnormal ECG When compared with ECG of 14-AUG-2023 22:56, Premature ventricular complexes are now Present Confirmed by Juan Reese ([id number]) on 09/01/2023 10:46:31 AM Referred By: Confirmed By:Juan Reese
[2023-09-01] MEDS: hydrALAZINE HCL 20 MG/ML VIAL IV STA (11:02)
[2023-09-01] MEDS: hydrALAZINE TAB 50 MG TAB PO STA (11:42)
[2023-09-01 11:44] LABS: Adenovirus PCR Not Detected (NotDetected); Bordetella parapertussis PCR Not Detected (NotDetected); Bordetella pertussis PCR Not Detected (NotDetected); Chlamydia pneumoniae PCR Not Detected (NotDetected); Coronavirus 229E PCR Not Detected (NotDetected); Coronavirus CoV-2 (COVID19)PCR Not Detected (NotDetected); Coronavirus HKU1 PCR Not Detected (NotDetected); Coronavirus NL63 PCR Not Detected (NotDetected); Coronavirus OC43PCR Not Detected (NotDetected); Human Metapneumovirus PCR Not Detected (NotDetected); Influenza A PCR Not Detected (NotDetected); Influenza B PCR Not Detected (NotDetected); Mycoplasma pneumoniae PCR Not Detected (NotDetected); Parainfluenza Virus 1 PCR Not Detected (NotDetected); Parainfluenza Virus 2 PCR Not Detected (NotDetected); Parainfluenza Virus 3 PCR Not Detected (NotDetected); Parainfluenza Virus 4 PCR Not Detected (NotDetected); Respiratory Syncytial VirusPCR Not Detected (NotDetected); Rhinovirus/Enterovirus PCR Not Detected (NotDetected)
--- OUTSIDE RECORDS SUMMARY | 2023-09-01 12:50 | External Medical Summary | Summary of Care ---
Author Name Unknown Organization [facility] [address] [facility] [address] Phone [phone] Care Team Providers Care Drill Sergeant Name Role Phone Dalila Bauman MD Primary Care Provider [phone] Reason for Visit * Reason Onset Date Comments Advice 08/28/2023 Encounter Details Date Type Department Care Team (Late st Contact Info) Description 08/28/2023 Telephone General Internal Medicine [facility] [place] [address] [place] [address] Dalila Bauman MD [address] [place] [place] [address] Advice Allergies Active Allergy Reactions Criticality Noted Date Comments Latex 01/09/2021 Penicillins 01/09/2021 Sulfa Antibiotics 01/09/2021 documented as of this encounter (statuses as of 08/31/2023) Medications Medication Sig Dispensed Refills Start Date End Date Status Aspirin EC 81 MG Oral Tablet Delayed ReleaseIndications: Type 2 diabetes mellitus with retinopathy of both eyes, without long-term current use of insulin, macular edema presence unspecified, unspecified retinopathy severity (HCC),Dyslipidemia, goal LDL below 100 Take 1 Tablet by mouth in the morning. 100 Tab 3 01/09/2021 Active ProdCollectay Voice Blood Glucose w/Device KitIndications:Type 2 diabetes [...] per week. 45 Tablet 3 09/24/2022 Active Additional Information Patient not taking.Reported on 08/24/2023 Isosorbide Dinitrate 30 MG Oral Tablet Take 1 Tablet by mouth in the morning and 1 Tablet at noon and 1 Tablet before bedtime. 270 Tablet 3 09/24/2022 Active Vitamin B-12 1000 MCG Oral Tablet (Cyanocobalamin)Ind ications:Type 2 diabetes mellitus with stage 3b chronic kidney disease, without long-term current use of insulin ([facility]) 1 tab on odd days only, start [...] the morning. 5 Each 3 05/04/2023 Active Melatonin ER 1 MG Oral Tablet Extended ReleaseIndications: Other insomnia daily1 tab at bedtime daily, if not improved may increase upto 5 mg daily 90 Tablet 1 05/04/2023 Active Tradjenta 5 MG Oral Tablet (linaGLIPtin)Indica [...] DX: E11.9 300 Each 3 07/02/2023 Active Labetalol HCl 200 MG Oral Tablet (Normodyne) Take 1 Tablet by mouth in the morning and 1 Tablet before bedtime. 0 Active amLODIPine Besylate 5 MG Oral Tablet (Norvasc) Take 1 Tablet by mouth in the morning. 0 Active documented as of this encounter (statuses as of 08/31/2023) Active Problems Problem Noted Date Diagnosed Date [...] as of this encounter (statuses as of 08/31/2023) Resolved Problems Problem Noted Date Diagnosed Date Resolved Date Chronic kidney disease, stage 3b 03/17/2022 05/21/2023 Overview: Per CKD protocol Type 2 diabetes mellitus wit h stage 3b chronic kidney disease, without long-term current use of insulin 07/26/2021 03/20/2022 Overview: Per CKD protocol documented as of this encounter (statuses as of 08/31/2023) Immunizations Name Administration Dates Next Due COVID-19 [...] Date Recorded PHQ Adult Total Score 0 08/24/2023 Hunger Vital Sign Answer Date Recorded Within the past 12 months, y ou worried that your food would run out before you got the money to buy more. Never true 08/24/19 24 Within the past 12 months, t he food you bought just didn't last and you didn't have money to get more. Never true 08/24/2023 Sex and Gender Information Value Date Recorded Sex Assigned at Not on file Gender Identity Not on file Sexual Orientation Not on file Job Start Date Occupation Industry Not on file Not on file Not on file documented as of this encounter Miscellaneous Notes * Telephone Encounter - Rosetta Tony MED ASSIST - 08/31/2023 2:24 PM EST Patient aware and verbalized understanding. * Telephone Encounter - Dalila Bauman MD - 08/28/2023 12:18 PM EST Okay to miss 1 dose. * Telephone Encounter - Bernie Carlos LPN - 08/28/2023 12:10 PM EST Patient calling in stating that she takes Atorvastatin and will not have medication on Thursday. She is asking if missing Sundays dose will affect her? She will receive her medication from the pharmacyon Thursday. Please advise. documented in this encounter Plan of Treatment Upcoming Encounters Date Type Department Care Team (Late st Contact Info) Description 09/02/2023 4:00 PM EST Office Visit General Internal Medicine [facility] [place] [address] [place] [address] Dalila Bauman MD [address] [facility] [address] 09/11/2023 3:30 PM EST Office Visit Pharmacy, [facility] [place] [address] [place] [address] [address] Pharmacist1, [facility] [address] [place] [address] [address] 09/11/2023 4:00 PM EST Office Visit Nephrology, [facility] [address] [place] [address] Cornel Smith MD [address] [place] [address] 10/29/2023 1:30 PM EDT [facility] [place] [address] [place] [address] [phone] Myrna Gonzalez [facility] [address] [place] [address] 11/03/2023 2:00 PM EDT Office Visit General Internal Medicine [facility] [place] [address] [place] [address] Dalila Bauman MD [address] [place] [address] 11/10/2023 3:00 PM EDT Office Visit Hematology/Oncology [employer] [address] [place], [place] [phone] Joshua Nunez MD [address] [place] [address] Health Maintenance Due Date Last Done Comments Pneumococcal Vaccine: 65+ Years (1 of 2 - PCV) 02/18/1941 DTaP,Tdap,and Td Vaccines (1 - Tdap) 1954 Zoster Vaccines (1 of 2) 02/18/1984 Diabetic Foot Exam 10/16/2022 10/16/2021 COVID-19 Vaccine ( - 2022- season) 2023 12/18/2021, 07/11/2021, 12/11/2020, Additional history exists Influenza Vaccine (FLU shot) (#1) 2023 Albumin/Creatinine Ratio 09/01/2023 09/01/2022, 07/07 HbA1c 10/30/2023 04/30/2023, 12/04, 09/01/2022, Additional history exists PTH 12/20/2023 12/19/2022, 03/07, 11/11/2021, Additional history exists Phosphate 12/20/2023 12/19/2022, 10/05, 03/25/2022, Additional history exists Nephrology Referral 02/20/2024 02/19/2023 DXA Scan 03/17/2024 03/17/2022, 03/17/2022 Hgb 05/04/2024 05/04/2023, 12/04, 09/01/2022, Additional history exists Diabetic Eye Exam 07/30/2024 07/30/2023, , 12/10/2022, Additional history exists Depression Screening 08/24/2024 08/24/2023 VITAMIN D LEVEL ONCE IN A LIFETIME-USE SMARTSET# [id number] Completed 12/19/2022, 03/25/2022, 11/11/2021, Additional history exists [...] this encounter Medical Devices Implanted Type Area Unix Consultant Device Identifier Shelf Expiration Date Model / Serial / Lot Lens Intraoc 25.0 - [id number] - [id number] Implanted:Qty: 1 on 09/03/2021 by Deon Griffin MD at [facility] Left: Eye [employer] 10/02/2025 [id number] / [id number] / [id number] Lens Intraoc 26.0 - [id number] - [id number] Implanted:Qty: 1 on 09/17/2021 by Deon Griffin MD at OR [facility] Right: Eye [employer] 10/03/2025 [id number] / [id number] / [id number] documented as of this encounter Advance Directives Healthcare Agents on File Name Relationship Healthcare Agent Relationshi p Communication [facility] R epresentative (appointed verbally by patient or by statute hierarchy) Care Teams Drill Sergeant Relationship Specialty Start Date End Date Dalila Bauman MD [address] [place] [address], [place] [address] PCP - General Internal Medicine 01/09/21 documented as of this encounter
--- OUTSIDE RECORDS SUMMARY | 2023-09-01 12:50 | External Medical Summary | Summary of Care ---
Author Name Unknown Organization [facility] Address [address] [facility] [address] Phone [phone] Care Team Providers Care Service Line Coordinator Name Role Phone Dalila Bauman MD Primary Care Provider [phone] Encounter Details Date Type Department Care Team (Late st Contact Info) Description 08/14/2023 Result Scan Unspecified Department May Gipson PA-C [address] [place] [address] <No scans attached> Allergies Active Allergy Reactions Criticality Noted Date Comments Latex 01/09/2021 Penicillins 01/09/2021 Sulfa Antibiotics 01/09/2021 documented as of this encounter (statuses as of 08/18/2023) Medications Medication Sig Dispensed Refills Start Date End Date Status Aspirin EC 81 MG Oral Tablet Delayed ReleaseIndications: Type 2 diabetes mellitus with retinopathy of both eyes, without long-term current use of insulin, macular edema presence unspecified, unspecified retinopathy severity (HCC),Dyslipidemia, goal LDL below 100 Take 1 Tablet by mouth in the morning. 100 Tab 3 01/09/2021 Active Cardiovascular Provider [employer] Voice Blood Glucose w/Device KitIndications:Type 2 diabetes [...] goal of less than 8.0% ([facility]) Use with Lantus once daily 100 Each 3 09/02/2022 Active Prodigy No Coding Blood Gluc In Vitro Strip (Glucose Blood)Indications:T ype 2 diabetes mellitus with hemoglobin A1c goal of less than 8.0% ([facility]) Use to test blood glucose 3 times daily as directed. 300 Strip 3 09/02/2022 Active Prevagen 10 MG Oral Capsule (Apoaequorin) Take by mouth every evening. 0 Active Furosemide 20 MG Oral Tablet (Lasix)Indications: Type 2 diabetes mellitus with stage 3b chronic kidney disease, without long-term current use of insulin ([facility]),HTN, goal below 150/90,Bilateral leg edema Take 1 to 2 tablets per week. 45 Tablet 3 09/24/2022 Active Lisinopril 20 MG Oral Tablet (Prinivil)Indicatio ns:Type 2 diabetes mellitus with stage 3b chronic kidney disease, without long-term current use of insulin ([facility]),HTN, goal below 150/90,History of hypertensive [...] long-term current use of insulin ([facility]) 1 tab on odd days only, start 06/13/2021--dec 3d/wk 10/18/2021 45 Tablet 3 10/13/2022 Active CoQ10 200 MG Oral Capsule Take by mouth. 0 Active Repaglinide 2 MG Oral Tablet (Prandin)Indication s:Type 2 diabetes mellitus with hemoglobin A1c goal of less than 8.0% ([facility]) take 1 tablet by mouth [...] goal of less than 8.0% ([facility]) Inject 33 Units under the [...] long-term current use of insulin ([facility]) take 1 tablet by mouth every evening 90 Tablet 1 05/14/2023 Active Tradjenta 5 MG Oral Tablet (linaGLIPtin)Indica tions:Type 2 diabetes mellitus with retinopathy of both eyes, without long-term current use of insulin, macular edema presence unspecified, unspecified retinopathy severity ([facility]) take 1 tablet by mouth [...] long-term current use of insulin ([facility]) Take 1 Tablet by mouth in the morning and 1 Tablet at noon and 1 Tablet before bedtime. 270 Tablet 3 06/08/2023 Active Insulin Glargine Solostar 100 UNIT/ML Subcutaneous Solution Pen-injector (Lantus SoloStar)Indication s:Type 2 diabetes mellitus with hemoglobin A1c goal of less than 8.0% ([facility]) Inject 33 Units under the skin daily. [...] goal of less than 8.0% ([facility]) Use to test blood glucose 3 times daily. DX: E11.9 300 Each 3 07/02/2023 Active documented as of this encounter (statuses as of 08/18/2023) Active Problems Problem Noted Date Diagnosed Date [...] as of this encounter (statuses as of 08/18/2023) Resolved Problems Problem Noted Date Diagnosed Date Resolved Date Chronic kidney disease, stage 3b 03/17/2022 05/21/2023 Overview: Per CKD protocol Type 2 diabetes mellitus wit h stage 3b chronic kidney disease, without long-term current use of insulin 07/26/2021 03/20/2022 Overview: Per CKD protocol documented as of this encounter (statuses as of 08/18/2023) Immunizations Name Administration Dates Next Due COVID-19 [...] Care Team (Late st Contact Info) Description 09/11/2023 3:30 PM EST Office Visit Pharmacy, [facility] [place] [address] [place] [address] Pharmacist1, [facility] [address] [place] [address] 09/11/2023 4:00 PM EST Office Visit Nephrology, [facility] [address] [employer], [place] [address] Cornel Smith MD [address] [place] [address] 10/29/2023 1:30 PM EDT Laboratory Laboratory [facility] [place] [address] [facility] [facility] [place] [phone] [facility] [address] [place] [address] 11/03/2023 2:00 PM EDT Office Visit General Internal Medicine [facility] [place] [address] [place], [place] [address] Dalila Bauman MD [address] [address] [address] 11/10/2023 3:00 PM EDT Office Visit Hematology/Oncology [facility] [address] [place] [address] Joshua Nunez MD [address] [facility] [address] [facility] [place] [address] Health Maintenance Due Date Last Done Comments [...] 07/30/2024 07/30/2023, , 12/10/2022, Additional history exists VITAMIN D LEVEL ONCE IN A LIFETIME-USE SMARTSET# [id number] Completed 12/19/2022, 03/25/2022, 11/11/2021, Additional history exists GARDASIL-HPV IMMUNIZATION SERIES Aged Out No longer eligible based on patient's age to complete this topic MENINGOCOCCAL (MENACTRA/MENVEO) Aged Out No longer eligible based on patient's age to complete this topic documented as of this encounter Medical Devices Implanted Type Area [employer] Member Device Identifier Shelf Expiration Date Model / Serial / Lot Lens Intraoc 25.0 - [id number] - [id number] Implanted:Qty: 1 on 09/03/2021 by Deon Griffin MD at [facility] Left: Eye [employer] 10/02/2025 [id number] / [id number] / [id number] Lens Intraoc 26.0 - [id number] - [id number] Implanted:Qty: 1 on 09/17/2021 by Deon Griffin MD at OR [facility] Right: Eye [employer] 10/03/2025 [id number] / [id number] / [id number] documented as of this encounter Procedures Procedure Name Priority Date/Time Associated Diagnosis Comments ECHOCARDIOLOGY SCANNED RESULT 08/14/2023 documented in this encounter Results * ECHOCARDIOLOGY SCANNED RESULT (08/14/2023) 08/14/2023 May Gipson PA-C ECHOCARDIOLOGY documented in this encounter Care Teams Service Line Coordinator Relationship Specialty Start Date End Date Dalila Bauman MD [address] [place] [address] PCP - General Internal Medicine 01/09/21 documented as of this encounter
--- OUTSIDE RECORDS SUMMARY | 2023-09-01 12:50 | External Medical Summary | Summary of Care ---
Author Name Unknown Organization [facility] Address [address] [place] [address] Phone [phone] Care Team Providers Care Ceiling Cleaner Name Role Phone Dalila Bauman MD Primary Care Provider [phone] Reason for Visit * Reason Comments Follow Up Encounter Details Date Type Department Care Team (Late st Contact Info) Description 08/12/2023 2:10 PM EST Office Visit Vascular Surgery, [facility] [address] [place] [address] rFancesco Cohen MD [address] [place] [address] Carotid stenosis, non-symptomatic, bilateral*; Carotid stenosis, asymptomatic, right Allergies Active Allergy Reactions Criticality Noted Date Comments Latex 01/09/2021 Penicillins 01/09/2021 Sulfa Antibiotics 01/09/2021 documented as of this encounter (statuses as of 08/17/2023) Medications Medication Sig Dispensed Refills Start Date [...] of less than 8.0% ([facility]) Inject 33 Units under the skin in [...] as of this encounter (statuses as of 08/17/2023) Active Problems Problem Noted Date Diagnosed Date [...] as of this encounter (statuses as of 08/17/2023) Resolved Problems Problem Noted Date Diagnosed Date Resolved Date Chronic kidney disease, stage 3b 03/17/2022 05/21/2023 Overview: Per CKD protocol Type 2 diabetes mellitus wit h stage 3b chronic kidney disease, without long-term current use of insulin 07/26/2021 03/20/2022 Overview: Per CKD protocol documented as of this encounter (statuses as of 08/17/2023) Immunizations Name Administration Dates Next Due COVID-19 mRNA, LNP-s, No Pre serve, 2-Dose Series (Moderna) 12/11/2020,11/13/2020 COVID-19, LNP-s, No Preserve , Michel-sucrose, Ages 12+ ([email or web address]) 12/18/2021 COVID-19, mRNA, LNP-s, PF, B ooster, [...] Sign Reading Time Taken Comments Blood Pressure 222/80 08/12/2023 1:39 PM EST Pulse - - Temperature 36.1 C (96.9 F) 08/12/2023 1:39 PM ES T Respiratory Rate - - Oxygen Saturation - - Inhaled Oxygen Concentration - - Weight 89.7 kg (197 lb 12.8 oz) 08/12/2023 1:39 PM EST Height - - Body Mass Index 33.95 05/11/2023 2:34 PM EST documented in this encounter Progress Notes * Phuc Hernandez PA-C - 08/12/2023 2:10 PM EST Images from the original note were not included. Date of Service: 08/12/2023 1:44 PM Ramila Urrutia is a 88 year old female. Patient being seen in consultation at the request of Dalila Bauman MD Chief Complaint: Return patient, carotid stenosis HPI: Asymptomatic R ICA stenosis. Denies amaurosis or hemispheric ischemic symptoms. CAROTID DISEASE: Patient denies recent TIA, recent stroke and recent amaurosis fugax. FAMILY HISTORY: Family history is noncontributory. Current Outpatient Medications Medication Sig Dispense Refill Aspirin EC 81 MG Oral Tablet Delayed Release Take 1 Tablet by mouth in the morning. 100 Tab 3 [employer] Voice Blood Glucose w/Device Kit Use to test blood glucose 3 times daily. DX: E11.9. 1 Kit 0 Acetaminophen 500 MG Oral Tablet (Tylenol) Take by mouth 2 Tablets every 8 hours as needed for Pain, Moderate. STOP ibuprofen 09/13/2021 (Patient taking differently: Take 2 Tablets by mouth in the morning and 2 Tablets before bedtime. STOP ibuprofen 09/13/2021.) 100 Tablet 0 NATURAL SUPPLEMENT Take by mouth 4 Tablets daily . [facility] Prodigy No Coding Blood Gluc In Vitro Strip (Glucose Blood) Use to test blood glucose 3 times dailyas directed. 300 Strip 3 Prevagen 10 MG Oral Capsule (Apoaequorin) Take by mouth every evening. Furosemide 20 MG Oral Tablet (Lasix) Take [...] start 06/13/2021--dec 3d/wk 10/18/2021 45 Tablet 3 CoQ10 200 MG Oral Capsule Take by mouth. Repaglinide 2 MG Oral Tablet (Prandin) take [...] 33 Unitsunder the skin in the morning. 5 Each 3 Melatonin ER 1 MG Oral Tablet Extended Release daily1 tab at bedtime daily, if not improved may increase upto 5 mg daily 90 Tablet 1 Metoprolol Succinate ER 100 MG Oral Tablet Extended Release 24 Hour (toPROL XL) take 1 tablet by mouth once daily 90 Tablet 3 Verapamil HCl ER 180 MG Oral Tablet Extended Release (Isoptin SR) take 1 tablet by mouth every evening 90 Tablet 1 Tradjenta 5 MG Oral Tablet (linaGLIPtin) take 1 tablet by mouth daily 90 Tablet 1 Loratadine 10 MG Oral Tablet (Claritin) take 1 tablet by mouth at bedtime 90 Tablet 3 hydrALAZINE HCl 100 MG Oral Tablet Take 1 Tablet by mouth in the morning and 1 Tablet at noon and 1Tablet before bedtime. 270 Tablet 3 Empagliflozin 25 MG Oral Tablet (Jardiance) Take 1 Tablet by mouth in the morning. 90 Tablet 3 Pro[employer] Lancets 28G Use to test blood glucose 3 times daily. DX: E11.9 300 Each 3 FreeStyle Jimmy 2 Sensor Use as directed every 14 days . Change every 14 weeks 2 Each 11 Insulin Pen Needle 32G X 6 MM Use with Lantus once daily 100 Each 3 Insulin Glargine Solostar 100 UNIT/ML Subcutaneous Solution Pen-injector (Lantus SoloStar) Inject 33 Units under the skin daily. 30 mL 0 No current facility-administered medications for this visit. 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 disease, with long-term current use of insulin([facility]) E11.22, N18.4, Z79.4 Senile osteoporosis M81.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.2 Hypertensive heart disease with chronic diastolic congestive heart failure ([facility]) I11.0, I50.32 Chronic kidney disease, stage 4 (severe) ([facility]) N18.4 Past Medical History: Diagnosis Date Hypertension Past Surgical History: Procedure Laterality Date REMOVE CATARACT, INSERT LENS PROSTH Left 09/03/2021 Left EXTRACAPSULAR CATARACT REMOVAL WITH INTRAOCULAR LENS performed by Deon Griffin MD at OR [facility] REMOVE CATARACT, INSERT LENS PROSTH Right 09/17/2021 Right EXTRACAPSULAR CATARACT REMOVAL WITH INTRAOCULAR LENS performed by Deon Griffin MD at OR [facility] No family history on file. Social History Socioeconomic History Marital status: Spouse [...] on file Food Insecurity: No Food Insecurity (12/30/2022) Hunger Vital Sign Worried About Running Out of Food in the Last Year: Never true Ran Out of Food in the Last Year: Never true Transportation Needs: Not on file Physical Activity: Not on file Stress: Not on file Social Connections: Not on file Intimate Partner Violence: Not on file Housing Stability: Not on file COMPLETE REVIEW OF SYSTEMS: Cardiovascular: Negative for chest pain, shortness of breath, palpitations, angina or AK Neurological: Negative for stroke, TIA, amaurosis fugax All other systems negative except for those noted above and in the history of present illness (HPI). GENERAL MULTI-SYSTEM PHYSICAL EXAM: VITAL SIGNS: BP 222/80 (BP Site: Left Arm, BP Position: Sitting, BP Cuff Size: Large) | Temp 36.1 C (96.9 F)(Tympanic) | Wt 89.7 kg (197 lb 12.8 oz) | BMI 33.95 kg/m | BSA 2.01 m GENERAL MULTI-SYSTEM PHYSICAL EXAM:ADDITIONAL VS: pulse regular. NECK: No masses and Normal Thyroid. RESPIRATORY: CTA, nl effort CARDIOVASCULAR: RRR, no heart murmurs, no edema and no varicosities. SKIN: no ulcers, no rash, no induration, capillary refill normal and no dependent rubor. NEUROLOGIC: Cranial nerves intact, Motor function intact and Sensory exam intact PULSE SCALE: Carotid Right:----Bruit: No Left:----Bruit: No Radial Right: 2 Left: 2 PULSE SCALE: 4=Aneurysmal; 3=Normal; 2=Diminished; 1=Barely Palpable; 0=Absent DIAGNOSTIC STUDIES: 08/07/2023 Carotid Duplex: SLIME 211/31, LICA 127/29, ante verts 11/20/2022 Renal Duplex: Atrophic R kidney, 50% stenosis origin of left kidney The above diagnostic images were directly visualized and independently interpreted by me on 08/12/2023 with results as above 04/14/2022 Carotid Duplex: SLIME 257/34, LICA 105/22, Verts Ante 10/31/2021 CTA Neck: Extensive plaque within the right carotid bifurcation which results in 70-80% stenosis of the proximal right internal carotid artery. 10/31/2021 Renal Artery Duplex @ [facility]: Hemoglobin AIC Results: Lab Results Component Value Date/Time HEMOGLOBIN A1C - [facility] 6.1 (H) 04/30/2023 11:43 AM HEMOGLOBIN A1C - [facility] 7.4 (H) 12/19/2022 01:45 PM HEMOGLOBIN A1C - [facility] 10.7 (H) 09/01/2022 01:06 PM HEMOGLOBIN A1C POCT - [facility] 8.8 (H) 04/23/2022 06:15 PM HEMOGLOBIN A1C POCT - [facility] 8.9 (H) 09/13/2021 03:42 PM Lab Results Component Value Date/Time CREATININE - [facility] 1.7 (H) 05/04/2023 04:24 PM CREATININE - [facility] 1.7 (H) 12/19/2022 01:45 PM CREATININE - [facility] 1.5 (H) 10/24/2022 03:37 PM CREATININE, RANDOM URINE - [facility] 35 09/01/2022 01:06 PM CREATININE, RANDOM URINE - [facility] 26 03/31/2022 12:32 PM CREATININE, RANDOM URINE - [facility] 28 08/02/2021 03:14 PM CREATININE-OUTSIDE LAB 1.25 (A) 10/31/2021 12:00 AM CREATININE-OUTSIDE LAB 1.90 (A) 10/31/2021 12:00 AM Lab Results Component Value Date/Time LDL CHOLESTEROL (CALCULATED) - [facility] 51 12/19/2022 01:45 PM LDL CHOLESTEROL (DIRECT MEASURE) - [facility] 63 04/30/2023 11:43 AM The above clinical labs were reviewed by me on 08/12/23 IMPRESSIONS: Asymptomatic 50-69% SLIME stenosis, stable velocities on most recent duplex Asymptomatic < 50% LICA stenosis HTN, on 4 meds, followed by Cardiology GWs. BP not well controlled today. Review of recent OP visits, summer/fall 2022, reveal similar BP readings CKD III, baseline creat 1.4-1.5 range w/ GFRs in 30's DM Renal artery stenosis. Left 50% origin stenosis & atrophic right kidney, on 2022 renal duplex B12 Def Depression Dyslipidemia PLAN: The patient was counseled regarding the pathophysiology and natural history of carotid disease, as well as the symptoms of CVA/TIA/amaurosis fugax. Continue Lipitor 80 mg daily for dyslipidemia & Pleiotropic effects of statins Continue ASA 81 mg daily for arteriolosclerosis RTC 1 year with repeat carotid duplex U/S. The patient was seen and examined with Angel Cohen MD. Phuc Hernandez PA-C I have reviewed the advanced practitioner's documentation on the date of service referenced in note, and I agree with, and take responsibility for the plan of care. Francesco Cohen MD Vascular Surgeon Department of Vascular Surgery [facility] documented in this encounter Nursing Notes * Brenda Moncada LPN - 08/12/2023 1:38 PM EST 15 month ret Carotid stenosis documented in this encounter Plan of Treatment Upcoming Encounters Date Type Department Care Team (Late st Contact Info) Description 09/11/2023 3:30 PM EST Office Visit Pharmacy, [place] [address] [place] [address] Pharmacist1, [facility] [address] [place] [address] 09/11/2023 4:00 PM EST Office Visit Nephrology, [facility] [address] [place] [address] Cornel Smith MD [address] [place] [address] 10/29/2023 1:30 PM EDT Laboratory Laboratory [place] [address] [place] [id number] [facility] [address] [place] [address] 11/03/2023 2:00 PM EDT Office Visit General Internal Medicine [facility] [place] [address] [facility] [place] [address] Dalila Bauman MD [address] [facility] [place] [address] 11/10/2023 3:00 PM EDT Office Visit Hematology/Oncology [facility] [place] [address] [facility] [place] [address] Joshua Nunez MD [address] [facility] [place] [address] Scheduled Orders Name Type Priority Associated Diagnoses Orde r Schedule VASC DUPLEX CAROTID BILAT Medical Imaging Routine Carotid stenosis, asymptomatic, right Ordered: 08/12/2023 Health Maintenance Due Date Last Done Comments [...] D LEVEL ONCE IN A LIFETIME-USE SMARTSET# [id number] Completed 12/19/2022, 03/25/2022, 11/11/2021, Additional history exists GARDASIL-HPV IMMUNIZATION SERIES Aged Out No longer eligible based on patient's age to complete this topic MENINGOCOCCAL (MENACTRA/MENVEO) Aged Out No longer eligible based on patient's age to complete this topic documented as of this encounter Medical Devices Implanted Type Area [place] Device Identifier Shelf Expiration Date Model / Serial / Lot Lens Intraoc 25.0 - [id number] - [id number] Implanted:Qty: 1 on 09/03/2021 by Deon Griffin MD at OR [facility] Left: Eye [employer] 10/02/2025 [id number] / [id number] / [id number] Lens Intraoc 26.0 - [id number] - [id number] Implanted:Qty: 1 on 09/17/2021 by Deon Griffin MD at OR [facility] Right: Eye [employer]OM[employer] 10/03/2025 [id number] / [id number] / [id number] documented as of this encounter Visit Diagnoses Diagnosis Carotid stenosis, non-symptomatic, bilateral- Primary Carotid stenosis, asymptomatic, right documented in this encounter Care Teams Ceiling Cleaner Relationship Specialty Start Date End Date Dalila Bauman MD [address] [place] [address] PCP - General Internal Medicine 01/09/21 documented as of this encounter"
[2023-09-01] MEDS: hydrALAZINE HCL 20 MG/ML VIAL IV PRN (14:14)
[2023-09-01] MEDS ORDERED: NITROGLYCERIN SL 0.4 MG/TAB TAB SL PRN (15:29)
[2023-09-01] MEDS ORDERED: POLYETHYLENE (MIRALAX) 17 GM PACK PO PRN (15:29)
[2023-09-01 15:35] LABS: Appearance Urine Clear (Clear); Bacteria Urine Automated Negative (Negative); Bilirubin Urine Negative (Negative); Blood Urine Negative (Negative); Cast Urine Automated 0 /lpf (0-5); Color Urine Yellow; Glucose Urine UA 1+ (Negative); Ketones Urine Negative (Negative); Leukocyte Esterase Urine Negative (Negative); Nitrite Urine Negative (Negative); Protein Urine 2+ (Negative); RBC Urine Automated 0-4 /hpf (0-4); Specific Gravity Urine 1.009 (1.000-1.030); Urobilinogen Urine Negative (Negative); pH Urine 5.5 (4.5-7.5)
[2023-09-01] MEDS: ACETAMINOPHEN 325 MG TAB ONE (15:35)
[2023-09-01] MEDS ORDERED: GLUCOSE 10 TAB/TUBE PO PRN (18:13)
[2023-09-01] MEDS ORDERED: GLUCOSE 40% GEL 15 GM TUBE PO PRN (18:13)
[2023-09-01] MEDS ORDERED: CARBOHYDRATES FOR HYPOGLYCEMIA PO PRN (18:13)
[2023-09-01] MEDS ORDERED: GLUCAGON FOR INJ 1 MG VIAL SQ PRN (18:13)
[2023-09-01] MEDS: HEPARIN SOD 5,000 UNIT/0.5 ML VIAL SQ SCH (18:33)
[2023-09-01] MEDS: amLODIPine BESYLATE 5 MG TAB PO SCH (18:34)
[2023-09-01] MEDS: ASPIRIN 81 MG ECTAB PO SCH (18:34)
[2023-09-01] MEDS: ATORVASTATIN 40 MG TAB PO SCH (18:35)
[2023-09-01] MEDS: ACETAMINOPHEN 500 MG TAB PO SCH (18:37)
[2023-09-01] MEDS: ISOSORBIDE DINITRATE 20 MG TAB PO SCH (19:58)
[2023-09-01] MEDS: carvediloL 6.25 MG TAB PO SCH (19:58)
[2023-09-01] MEDS: hydrALAZINE TAB 50 MG TAB PO SCH (19:59)
[2023-09-01] MEDS: SERTRALINE HCL 50 MG TABLET PO SCH (19:59)
[2023-09-01] MEDS: LORATADINE 10 MG TAB PO SCH (21:16)
[2023-09-01] MEDS: INSULIN ASPART PER UNIT CHARGE SC SCH (21:17)
[2023-09-01] MEDS: LANTUS PER UNIT CHARGE SQ SCH (21:17)
[2023-09-01] MEDS ORDERED: Nursing to Pharmacy Communication SCH (22:00)
[2023-09-02 06:10] LABS: Hematocrit (blood only) 29.9 % (37.0-47.0); Hemoglobin 9.8 g/dl (12.0-16.0); Mean Corpuscular Hemoglobin 31.4 pg (25.0-34.0); Mean Corpuscular Hgb Conc 32.8 g/dL (32.0-36.0); Mean Corpuscular Volume 95.8 fL (80.0-100.0); Mean Platelet Volume 9.7 fL (9.4-12.4); Platelet Count 267 K/uL (130-400); RDW Coefficient of Variation 13.2 % (11.5-14.5); RDW Standard Deviation 46.5 fL (36.4-46.3); Red Blood Count 3.12 M/uL (4.20-5.40); White Blood Count 7.36 K/ul (4.8-10.8)
[2023-09-02 06:40] LABS: BUN Creatinine Ratio 18.9 (10-20); Calcium 9.4 mg/dl (8.6-10.3); Creatinine Clr Calc Pharmacy 24.5 ml/min; Est GFR (African American) 31.8 ml/min; Est GFR (Non-African American) 27.4 ml/min; Magnesium 1.8 mg/dl (1.7-2.4); Phosphorus 3.1 mg/dl (2.5-4.9); Potassium 3.2 mmol/L (3.5-5.1)
[2023-09-02] MEDS: DEXTROSE 50% 50 ML SYRINGE IV PRN (06:48)
[2023-09-02 07:12] LABS: Estimated Average Glucose 146 mg/dl; Hemoglobin A1C 6.7 % (4.5-5.6)
[2023-09-02] MEDS: CEROVITE ADV FORMULA TAB PO SCH (08:04)
[2023-09-02] MEDS: carvediloL 6.25 MG TAB PO ONE (09:36)
[2023-09-02] MEDS: POTASSIUM CHLORIDE CRTAB 20 MEQ TABCR PO STA (09:36)
[2023-09-02] MEDS ORDERED: SODIUM CHLORIDE 0.65% NA SOLN 45 ML (OCEAN) PRN (10:02)
--- NOTE | 2023-09-02 11:17 | Cardiology Consultation ---
Date of Consultation September 02, 2023 Assessment & Plan (1) Acute heart failure with preserved ejection fraction: (2) Hypertensive emergency: (3) Elevated troponin: (4) CKD (chronic kidney disease): (5) LBBB (left bundle branch block): Plan 88-year-old female presents with acute on chronic heart failure with preserved ejection fraction, hypertensive emergency in the setting of underlying hypertensive heart disease/labile hypertension. Troponin mildly elevated secondary to demand ischemia, CKD, and heart failure with preserved ejection fraction. I do not suspect acute coronary syndrome at this time. I will repeat a limited 2D transthoracic echocardiogram for reassessment of LV function given episode of nonsustained ventricular tachycardia overnight, however, I suspect this is related to electrolyte shifts and administration of intravenous furosemide. Mild hypokalemia noted this a.m. which has been supplemented. Labetalol discontinued due to side effects. Agree with addition of carvedilol 12.5 mg twice daily. Titrate to 25 mg twice daily as tolerated. Continue amlodipine, hydralazine, and isosorbide dinitrate as ordered. Patient will require diuretic therapy for BP and fluid management. Discussed with nephrology. Avoid thiazide diuretic due to history of hyponatremia. Loop diuretic therapy will be added per their discretion. Monitor fluid balance, daily weight, GFR, and electrolytes. I spent a total of 55 minutes on the date of service in preparation, delivery, and documentation of the care provided to this patient, excluding any time spent in the performance of separately billed services. History of Present Illness Reason for Consultation: Heart failure with preserved ejection fraction, nonsustained ventricular tachycardia Requesting Physician: Dr. Jerri Graham Attending Physician: Jerri Graham MD History of Present Illness 88-year-old female presented to the emergency department with shortness of breath, leg swelling, and elevated blood pressure. Recently hospitalized due to uncontrolled hypertension earlier this month. During admission 08/11/2023, patient transition from metoprolol to labetalol, verapamil to amlodipine, and hydralazine titrated to 100 mg 3 times daily. Due to chronic kidney disease (patient only has 1 kidney) she was not discharged on Lasix, ANANT inhibitor, or ARB. Patient treated with dose of IV furosemide in the ER with significant clinical improvement. Remains hypertensive. Denies chest pain or heaviness. Reports significant shortness of breath preceding admission. No orthopnea or PND. Lower extremity edema has improved. Reports intolerance to labetalol, (feeling foggy). Labetalol discontinued by primary service and patient received dose of carvedilol this a.m. Run of nonsustained ventricular tachycardia at a rate of approximate 150 bpm recorded overnight. No associated symptoms. Hypokalemia noted this a.m. after receiving IV furosemide. Potassium supplementation ordered. Recent echocardiogram demonstrating moderate left ventricular hypertrophy with preserved left ventricular systolic function. Allergies Allergy/AdvReac Type Severity Reaction Status Date / Time latex Allergy Severe DIFFICULTY Verified 08/12/23 21:08 BREATHING, TONGUE SWELLS Penicillins Allergy Severe DIFFICULTY Verified 08/12/23 21:08 BREATHING, TONGUE SWELLS Sulfa (Sulfonamide Allergy Severe DIFFICULTY Verified 08/12/23 21:08 Antibiotics) BREATHING, TONGUE SWELLS Home Medications Medication Instructions Recorded Confirmed Type acetaminophen 500 mg tablet 1,000 mg PO BID 10/31/21 09/01/23 History aspirin 81 mg tablet,delayed 81 mg PO QAM 10/31/21 09/01/23 History release repaglinide 2 mg tablet 2 mg PO AC 10/31/21 09/01/23 History sertraline 50 mg tablet 25 mg (1/2 x 50 mg) PO QAM #30 tabs 11/08/21 09/01/23 Rx linagliptin 5 mg tablet (Tradjenta) 5 mg PO DAILY 12/16/21 09/01/23 History loratadine 10 mg tablet 10 mg PO HS 12/16/21 09/01/23 History atorvastatin 80 mg tablet 80 mg PO HS 09/02/22 09/01/23 History empagliflozin 25 mg tablet 25 mg PO DAILY 09/02/22 09/01/23 History (Jardiance) isosorbide dinitrate 30 mg tablet 30 mg PO TID #90 tabs 09/04/22 09/01/23 Rx coQ10 (ubiquinol) 200 mg capsule 200 mg PO DAILY 08/12/23 09/01/23 History hydralazine 100 mg tablet 100 mg PO TID 08/12/23 09/01/23 History insulin degludec 100 unit/mL (3 30 unit subcut QAM 08/12/23 09/01/23 History mL) subcutaneous pen (Tresiba FlexTouch U-100 insulin) [id number] 5 mg-zeaxanth 1 cap PO QID 08/12/23 09/01/23 History 1 mg-bilberry 7.5 mg-herbal capsule ([employer] Formula) amlodipine 5 mg tablet (Norvasc) 5 mg PO DAILY #30 tabs 08/21/23 09/01/23 Rx labetalol 200 mg tablet 200 mg PO BID #60 tabs 08/21/23 09/01/23 Rx Patient History Medical History CKD (chronic kidney disease) stage 3, GFR 30-59 ml/min Anxiety Tingling Headache Hypertensive urgency Diabetes mellitus with kidney complication, without long-term current use of insulin DM2 (diabetes mellitus, type 2) H/O: HTN (hypertension) Surgical History Hx of cataract surgery Social History Smoking Status: Never smoker Second Hand Exposure: Yes; Do You Dip or Chew Tobacco: No; Hx Alcohol Use: Yes Alcohol type: wine Hx Substance Use: No Preferred Language: Welsh Communication Ability: Effective Joist Setter Required: No Beliefs That Will Affect Care: None marital status: / Current Living Situation: Alone Feels Safe at Home: Yes Safety Concerns: Feels Safe At This Time Assistive Devices: Glasses, Hearing Aid - Bilateral and Walker Review of Systems Review of Systems: All systems reviewed & are unremarkable except as noted in Subjective Physical Exam Constitutional: well nourished and + ill appearing; no acute distress Respiratory: no respiratory distress, no labored breathing and no retractions Auscultation: + crackles (Right base); no rhonchi and no wheezes Cardiovascular: Rate/Rhythm: regular rate and regular rhythm Heart Sounds: normal S1 and normal S2; no murmur Vessels: radial pulses present; no JVD Extremities: no edema Gastrointestinal (Abdomen): Inspection/Auscultation: abdomen normal to inspection and normal bowel sounds; abdomen not distended Percussion/Palpation: abdomen soft; abdomen nontender and no guarding Neurologic: CN's II-XI intact bilaterally and moves all extremities; no focal motor deficits Results & Data Vital Signs (Past 12 Hours) Vital Signs Temp Pulse Pulse Resp BP BP Pulse Ox 09/02/23 08:00 69 02/28/24 08:00 09/02/23 07:59 36.5 C 63 18 197/75 H 96 09/02/23 05:34 36.9 C 75 18 186/67 H 93 09/02/23 03:35 36.9 C 49 L 18 164/66 H 92 09/01/23 23:16 96 O2 Del Method O2 Flow Rate 09/02/23 08:00 09/02/23 08:00 Nasal Cannula 2 09/02/23 07:59 Nasal Cannula 09/02/23 05:34 Nasal Cannula 2 09/02/23 03:35 Nasal Cannula 1 09/01/23 23:16 Nasal Cannula 2 Laboratory Results Cardiac Enzymes 09/01/23 Range/Units 10:55 Troponin I High Sens 39.6 H (0-14) pg/ml CBC 09/02/23 Range/Units 05:23 WBC 7.36 (4.8-10.8) K/ul RBC 3.12 L (4.20-5.40) M/uL Hgb 9.8 L (12.0-16.0) g/dl Hct 29.9 L (37.0-47.0) % Plt Count 267 (130-400) K/uL Comprehensive Metabolic Panel 09/02/23 Range/Units 05:23 Sodium 137 (136-145) mmol/L Potassium 3.2 L (3.5-5.1) mmol/L Chloride 103 (98-107) mmol/L Carbon Dioxide 24 (21-32) mmol/L BUN 31 H (6-23) mg/dl Creatinine 1.64 H (0.6-1.2) mg/dl Glucose 49 L* (70-99(Fasting)) mg/dl Calcium 9.4 (8.6-10.3) mg/dl Intake and Output 09/01/23 09/02/23 09/02/23 22:59 06:59 14:59 Intake Total 0 / 100 Output Total 700 / 700 0 / 700 Balance -700 / -600 0 / -600 Intake: Oral 0 / 0 Output: Urine 700 / 700 0 / 700 Other: # Unmeasured Voids 0 Weight 87.9 kg Weight Measurement Method Built in [facility]
--- NOTE | 2023-09-02 11:24 | Hospitalist Progress Note ---
Date of Service September 02, 2023 Assessment & Plan (1) Hypertensive emergency: (2) Acute heart failure with preserved ejection fraction: (3) Elevated troponin I level: Plan Ms. Urrutia is an 88 year old woman with past medical history remarkable for chronic heart failure with preserved EF (EF 60%, TTE 2023), PVD, hypertension, hyperlipidemia, DM 2 insulin requiring, CKD 4(baseline creatinine 1.7),MGUS, familial hypocalciuric hypercalcemia, carotid disease and renal artery stenosis, mood disorder admitted for HTN emergency and acute HFpEF. Patient doing better with IV dosing and resumption of PO regimen. Plan to discontinue labetolol in favor for coreg. patient wishes to discontinue at this time. Cardiology notes reviewed: concurs with transition to 12.5mg coreg, with goal to increase to 25mg BID Nephrology consult for IV diuersis recommendations #Hypertensive Emergency #Acute Heart failure with persevered EF #Mild Trop elevation ECHO 08/14/2023, EF 60-65%, G1DD, no PHTN Home regimen: Hydralazine 100mg TID, Isordil 30mg TID, recently started on Labetolol 200mg BID Last admission verapamil discontinued in favor of amlodipine, ANANT discontinued, lasix held Resume home regimen: Hydralazine, isordil, labetolol, amlodipine -s/p IV lasix 40mg in ED, labetalol 10mg IV, hydralazine 10mg IV Declined liu catheter placement -Encourage IOs PO meds now Daily weights Discontinue labetalol in favor for 12.5mg coreg BID (increased from 6.25mg BID with good tolerance) -Patient wishes to discontinue labetolol -Consult nephrology for diuresis guidance -Potassium replaced this morning #NSVT #Chronic LBBB Asymptomatic, < 30seconds -Continue BB as above -Cardiology consult #CKD IV #Renal artery stenosis. Left 50% origin stenosis & atrophic right kidney, on 2022 renal duplex Avoid nephrotoxic agents, including ANANT/ARB Nephrology consult to discuss ongoing diuresis, awaiting recommendations #Asymptomatic 50-69% SLIME stenosis, stable velocities on most recent duplex #Asymptomatic < 50% LICA stenosis Followed with vascular surgery for R ICA stenosis Resume home ASA and statin #DMII Tresiba 30U daily, Jardiance, Tradjenta, repaglinide -SSI 16 U BID, correction factor -Holding glargine 2/2 hypoglycemia #Depression Continue Sertraline DVT ppx Heparin Admit PCU tele Admission and Anticipated Discharge Date Admission Date: September 01, 2023 Subjective Patient evaluated at bedside Reports feeling notably improved this am Denies headache, vision changes, ESCOBAR Sleeping flat initially upon entering room Physical Exam Constitutional: WD/WN, vitals as above Respiratory: few crackles bibasilar, good airway entry Cardiovascular: RRR minimal edema, improved since yesterday am Results & Data Results & Data Vital Signs (Past 12 Hours) Vital Signs Temp Pulse Pulse Resp BP BP Pulse Ox 09/02/23 08:00 69 09/02/23 08:00 09/02/23 07:59 36.5 C 63 18 197/75 H 96 09/02/23 05:34 36.9 C 75 18 186/67 H 93 09/02/23 03:35 36.9 C 49 L 18 164/66 H 92 O2 Del Method O2 Flow Rate 09/02/23 08:00 09/02/23 08:00 Nasal Cannula 2 09/02/23 07:59 Nasal Cannula 09/02/23 05:34 Nasal Cannula 2 09/02/23 03:35 Nasal Cannula 1 Laboratory Results Short CBC 09/02/23 Range/Units 05:23 WBC 7.36 (4.8-10.8) K/ul Hgb 9.8 L (12.0-16.0) g/dl Hct 29.9 L (37.0-47.0) % Plt Count 267 (130-400) K/uL BMP 09/02/23 05:23 Sodium 137 Potassium 3.2 L Chloride 103 Carbon Dioxide 24 BUN 31 H Creatinine 1.64 H Glucose 49 L* Calcium 9.4 Urine 09/01/23 Range/Units 14:00 Urine Color Yellow Urine Appearance Clear (Clear) Urine pH 5.5 (4.5-7.5) Ur Specific [place] 1.009 (1.000-1.030) Urine Protein 2+ H (Negative) Urine Glucose (UA) 1+ H (Negative) Medications Administered Home Medications Medication Instructions Recorded Confirmed Last Taken acetaminophen 500 mg tablet 1,000 mg PO BID 10/31/21 09/01/23 08/12/23 08:00 aspirin 81 mg tablet,delayed 81 mg PO QAM 10/31/21 09/01/23 08/12/23 release repaglinide 2 mg tablet 2 mg PO AC 10/31/21 09/01/23 08/12/23 12:00 sertraline 50 mg tablet 25 mg (1/2 x 50 mg) PO QAM #30 tabs 11/08/21 09/01/23 08/12/23 linagliptin 5 mg tablet (Tradjenta) 5 mg PO DAILY 12/16/21 09/01/23 08/12/23 loratadine 10 mg tablet 10 mg PO HS 12/16/21 09/01/23 08/11/23 atorvastatin 80 mg tablet 80 mg PO HS 09/02/22 09/01/23 08/11/23 empagliflozin 25 mg tablet 25 mg PO DAILY 09/02/22 09/01/23 08/12/23 (Jardiance) isosorbide dinitrate 30 mg tablet 30 mg PO TID #90 tabs 09/04/22 09/01/23 08/12/23 12:00 coQ10 (ubiquinol) 200 mg capsule 200 mg PO DAILY 08/12/23 09/01/23 08/12/23 hydralazine 100 mg tablet 100 mg PO TID 08/12/23 09/01/23 08/12/23 12:00 insulin degludec 100 unit/mL (3 30 unit subcut QAM 08/12/23 09/01/23 08/12/23 mL) subcutaneous pen (Tresiba FlexTouch U-100 insulin) [id number]-[id number] 5 mg-zeaxanth 1 cap PO QID 08/12/23 09/01/23 08/12/23 12:00 1 mg-bilberry 7.5 mg-herbal capsule ([employer] Formula) amlodipine 5 mg tablet (Norvasc) 5 mg PO DAILY #30 tabs 08/21/23 09/01/23 Unknown labetalol 200 mg tablet 200 mg PO BID #60 tabs 08/21/23 09/01/23 Unknown Active Medications Generic Name Dose Route Start Last Admin Trade Name Freq PRN Reason Stop Dose Admin Acetaminophen 1,000 mg 09/01/23 15:30 09/02/23 08:03 Acetaminophen 500 Mg Tab PO 10/01/23 15:29 1,000 mg BID LUCAS Administration Amlodipine Besylate 5 mg 09/02/23 09:00 09/01/23 18:34 Amlodipine Besylate 5 Mg Tab PO 10/02/23 08:59 5 mg DAILY LUCAS Administration Aspirin 81 mg 09/01/23 15:45 09/02/23 08:03 Aspirin 81 Mg Ectab PO 10/01/23 15:44 81 mg QAM LUCAS Administration Atorvastatin Calcium 80 mg 09/01/23 21:00 09/01/23 18:35 Atorvastatin 40 Mg Tab PO 10/01/23 20:59 80 mg HS LUCAS Administration Dextrose 25 - 50 ml 09/01/23 18:13 09/02/23 06:48 Dextrose 50% 50 Ml Syringe IV 10/01/23 18:12 50 ml UD PRN Administration Hypoglycemia Protocol Protocol Heparin Sodium (Porcine) 5,000 units 09/01/23 15:45 09/02/23 06:12 Heparin Sod 5,000 Unit/0.5 Ml Vial SQ 10/01/23 15:44 Not Given Q8 LUCAS Hydralazine HCl 5 mg 09/01/23 12:16 09/01/23 14:14 Hydralazine Hcl 20 Mg/Ml Vial IV 10/01/23 12:15 5 mg Q6H PRN Administration systolic blood pressure =>185 Hydralazine HCl 100 mg 09/01/23 15:45 09/02/23 08:04 Hydralazine Tab 50 Mg Tab PO 10/01/23 15:44 100 mg TID LUCAS Administration Insulin Aspart 0 units 09/01/23 21:00 09/02/23 08:37 Insulin Aspart Per Unit Charge SC 10/01/23 20:59 2 units ACHS LUCAS Administration Insulin Glargine 16 units 09/01/23 21:00 09/01/23 21:17 Lantus Per Unit Charge SQ 10/01/23 20:59 16 units BID LUCAS Administration Isosorbide Dinitrate 30 mg 09/01/23 16:00 09/02/23 08:02 Isosorbide Dinitrate 20 Mg Tab PO 10/01/23 15:59 30 mg TID@0700,1200,1700 LUCAS Administration Loratadine 10 mg 09/01/23 21:00 09/01/23 21:16 Loratadine 10 Mg Tab PO 10/01/23 20:59 10 mg HS LUCAS Administration Multivitamins/Minerals 1 tab 09/02/23 09:00 09/02/23 08:04 Cerovite Adv Formula Tab PO 10/02/23 08:59 1 tab DAILY LUCAS Administration Sertraline HCl 50 mg 09/01/23 15:45 09/02/23 08:04 Sertraline Hcl 50 Mg Tablet PO 10/01/23 15:44 50 mg QAM LUCAS Administration
--- NOTE | 2023-09-02 12:39 | Nephrology Consultation ---
Date of Consultation September 02, 2023 Assessment & Plan (1) JOSE (acute kidney injury): slight rise in creatinine compared to her baseline. So does qualify as acute kidney injury on background CKD. JOSE is hemodynamic related in the setting of congestive heart failure and hypertensive urgency. (2) CKD (chronic kidney disease): does have underlying CKD related with advanced age hypertension. Recent renal function blood test has been all over the place. However as long as her cardiac status remained stable she should not have major problem with her kidney function (3) Acute heart failure with preserved ejection fraction: based on her symptoms and her chest x-ray it appears she did have acute pulmonary edema with underlying diastolic heart failure. she had 1 dose of Lasix 40 IV yesterday will write for 20 IV today. Patient is extremely hesitant about using Lasix and very worried about how it affects the kidney function. however given the circumstances we do have to give her some diuretics both for fluid management as well as blood pressure control. her blood pressure still quite high and this will be managed by Cardiology. Plan case complexity high with multisystem involvement. I did discuss with Dr. Billy of Cardiology about the plan and we are in agreement History of Present Illness Reason for Consultation: JOSE and hypertensive urgency Attending Physician: Jerri Graham MD History of Present Illness 88/F came to the emergency department Yesterday with shortness of breath, leg swelling, and very high blood pressure. she was Recently hospitalized due to uncontrolled hypertension earlier this month. During admission 08/11/2023, patient transition from metoprolol to labetalol, verapamil to amlodipine, and hydralazine titrated to 100 mg 3 times daily. Due to chronic kidney disease (patient only has 1 kidney) she was not discharged on Lasix, ANANT inhibitor, or ARB. she did have some hyponatremia which eventually resolved. in the emergency department she was given Lasix 40 mg IV with significant clinical improvement. however she still Remains very hypertensive. Denies chest pain or heaviness. No orthopnea or PND. Lower extremity edema has improved. she was having some side-effect with labetalol and has been switched over to carvedilol. cardiology did see the patient already. she also had a Run of nonsustained ventricular tachycardia at a rate of approximate 150 bpm recorded overnight. Hypokalemia of 3.2 noted after receiving IV furosemide. Potassium supplementation already ordered. her Recent echocardiogram shows moderate left ventricular hypertrophy with preserved left ventricular systolic function. daughter who works in [facility] administration was also present at bedside review of systems------ positive for shortness of breath lower extremity edema and orthopnea. otherwise 12 systems reviewed and negative Physical Exam Constitutional: no acute distress. perfectly normal speech and mentally very sharp Respiratory: no respiratory distress, clear to auscultation no rhonchi and no wheezes Cardiovascular: Rate/Rhythm: regular rate and regular rhythm Heart Sounds: normal S1 and normal S2; no murmur Vessels: radial pulses present; no JVD Extremities: no edema Gastrointestinal (Abdomen): Inspection/Auscultation: abdomen normal to inspection and normal bowel sounds; abdomen not distended Percussion/Palpation: abdomen soft; abdomen nontender and no guarding Neurologic: CN's II-XI intact bilaterally and moves all extremities; no focal motor deficits Allergies Allergy/AdvReac Type Severity Reaction Status Date / Time latex Allergy Severe DIFFICULTY Verified 08/12/23 21:08 BREATHING, TONGUE SWELLS Penicillins Allergy Severe DIFFICULTY Verified 08/12/23 21:08 BREATHING, TONGUE SWELLS Sulfa (Sulfonamide Allergy Severe DIFFICULTY Verified 08/12/23 21:08 Antibiotics) BREATHING, TONGUE SWELLS Home Medications Medication Instructions Recorded Confirmed Type acetaminophen 500 mg tablet 1,000 mg PO BID 10/31/21 09/01/23 History aspirin 81 mg tablet,delayed 81 mg PO QAM 10/31/21 09/01/23 History release repaglinide 2 mg tablet 2 mg PO AC 10/31/21 09/01/23 History sertraline 50 mg tablet 25 mg (1/2 x 50 mg) PO QAM #30 tabs 11/08/21 09/01/23 Rx linagliptin 5 mg tablet (Tradjenta) 5 mg PO DAILY 12/16/21 09/01/23 History loratadine 10 mg tablet 10 mg PO HS 12/16/21 09/01/23 History atorvastatin 80 mg tablet 80 mg PO HS 09/02/22 09/01/23 History empagliflozin 25 mg tablet 25 mg PO DAILY 09/02/22 09/01/23 History (Jardiance) isosorbide dinitrate 30 mg tablet 30 mg PO TID #90 tabs 09/04/22 09/01/23 Rx coQ10 (ubiquinol) 200 mg capsule 200 mg PO DAILY 08/12/23 09/01/23 History hydralazine 100 mg tablet 100 mg PO TID 08/12/23 09/01/23 History insulin degludec 100 unit/mL (3 30 unit subcut QAM 08/12/23 09/01/23 History mL) subcutaneous pen (Tresiba FlexTouch U-100 insulin) [id number]-cxw-[id number] 5 mg-zeaxanth 1 cap PO QID 08/12/23 09/01/23 History 1 mg-bilberry 7.5 mg-herbal capsule ([employer] Formula) amlodipine 5 mg tablet (Norvasc) 5 mg PO DAILY #30 tabs 08/21/23 09/01/23 Rx labetalol 200 mg tablet 200 mg PO BID #60 tabs 08/21/23 09/01/23 Rx Patient History Medical History CKD (chronic kidney disease) stage 3, GFR 30-59 ml/min Anxiety Tingling Headache Hypertensive urgency Diabetes mellitus with kidney complication, without long-term current use of insulin DM2 (diabetes mellitus, type 2) H/O: HTN (hypertension) Surgical History Hx of cataract surgery Social History Smoking Status: Never smoker Second Hand Exposure: Yes; Do You Dip or Chew Tobacco: No; Hx Alcohol Use: Yes Alcohol type: wine Hx Substance Use: No Preferred Language: Citizen Of [place] Communication Ability: Effective Adult Protective Caseworker Required: No Beliefs That Will Affect Care: None marital status: / Current Living Situation: Alone Feels Safe at Home: Yes Safety Concerns: Feels Safe At This Time Assistive Devices: Glasses, Hearing Aid - Bilateral and Walker Results & Data Vital Signs (Past 12 Hours) Vital Signs Temp Pulse Pulse Resp BP BP Pulse Ox 09/02/23 11:34 36.7 C 82 18 175/71 H 96 09/02/23 08:00 69 09/02/23 08:00 09/02/23 07:59 36.5 C 63 18 197/75 H 96 09/02/23 05:34 36.9 C 75 18 186/67 H 93 09/02/23 03:35 36.9 C 49 L 18 164/66 H 92 O2 Del Method O2 Flow Rate 09/02/23 11:34 Nasal Cannula 09/02/23 08:00 09/02/23 08:00 Nasal Cannula 2 09/02/23 07:59 Nasal Cannula 09/02/23 05:34 Nasal Cannula 2 09/02/23 03:35 Nasal Cannula 1 Laboratory Results reviewed Diagnostic Findings reviewed chest x-ray which shows pulmonary edema and recent echocardiogram
[2023-09-02] MEDS: FUROSEMIDE INJ 20 MG/2 ML VIAL IV ONE (13:09)
[2023-09-02] MEDS ORDERED: carvediloL 12.5 MG TAB PO SCH (17:00)
[2023-09-02] MEDS: carvediloL 25 MG TAB PO SCH (17:04)
[2023-09-03 07:14] LABS: Hematocrit (blood only) 31.5 % (37.0-47.0); Hemoglobin 10.7 g/dl (12.0-16.0); Mean Corpuscular Hemoglobin 32.1 pg (25.0-34.0); Mean Corpuscular Volume 94.6 fL (80.0-100.0); Mean Platelet Volume 9.9 fL (9.4-12.4); Platelet Count 310 K/uL (130-400); RDW Coefficient of Variation 12.9 % (11.5-14.5); RDW Standard Deviation 44.7 fL (36.4-46.3); Red Blood Count 3.33 M/uL (4.20-5.40); White Blood Count 7.78 K/ul (4.8-10.8)
[2023-09-03 07:46] LABS: BUN Creatinine Ratio 20.9 (10-20); Calcium 9.5 mg/dl (8.6-10.3); Creatinine Clr Calc Pharmacy 23.3 ml/min; Est GFR (Non-African American) 25.9 ml/min; Magnesium 1.7 mg/dl (1.7-2.4); Phosphorus 2.9 mg/dl (2.5-4.9); Potassium 3.8 mmol/L (3.5-5.1)
[2023-09-03] MEDS: amLODIPine BESYLATE 5 MG TAB PO SCH (08:38)
--- NOTE | 2023-09-03 11:58 | Hospitalist Progress Note ---
Date of Service September 03, 2023 Assessment & Plan (1) Hypertensive emergency: (2) Acute heart failure with preserved ejection fraction: (3) Elevated troponin I level: Plan Ms. Urrutia is an 88 year old woman with past medical history remarkable for chronic heart failure with preserved EF (EF 60%, TTE 2023), PVD, hypertension, hyperlipidemia, DM 2 insulin requiring, CKD 4(baseline creatinine 1.7),MGUS, familial hypocalciuric hypercalcemia, carotid disease and renal artery stenosis, mood disorder admitted for HTN emergency and acute HFpEF. Patient doing better with IV dosing and resumption of PO regimen. Plan to discontinue labetolol in favor for coreg. patient wishes to discontinue at this time. Cardiology notes reviewed: concurs with transition to 12.5mg coreg, with goal to increase to 25mg BID Nephrology consult for IV diuersis recommendations Patient with slow improvements in pressure to prevent drastic fluctuations and maintain strong renal perfusion #Hypertensive Emergency *improved #Acute Heart failure with persevered EF #Mild Trop elevation ECHO 08/14/2023, EF 60-65%, G1DD, no PHTN Home regimen: Hydralazine 100mg TID, Isordil 30mg TID, recently started on Labetalol 200mg BID Last admission verapamil discontinued in favor of amlodipine, ANANT discontinued, lasix held Resume home regimen: Hydralazine, isordil, labetolol, amlodipine -s/p IV lasix 40mg in ED, labetalol 10mg IV, hydralazine 10mg IV Declined liu catheter placement -Encourage IOs PO meds now Daily weights Discontinue labetalol in favor for coreg -Patient wishes to discontinue labetolol -Started Coreg--increased to 25mg BID -Increased amlodipine 10mg daily -Consult nephrology for diuresis guidance -Potassium replaced this morning #NSVT #Chronic LBBB Asymptomatic, < 30seconds -Continue BB as above -Cardiology consult #CKD IV #Renal artery stenosis. Left 50% origin stenosis & atrophic right kidney, on 2022 renal duplex Avoid nephrotoxic agents, including ANANT/ARB Nephrology consult to discuss ongoing diuresis, awaiting recommendations #Asymptomatic 50-69% SLIME stenosis, stable velocities on most recent duplex #Asymptomatic < 50% LICA stenosis Followed with vascular surgery for R ICA stenosis Resume home ASA and statin #DMII Tresiba 30U daily, [place], N[place]is, repaglinide -SSI 16 U BID, correction factor -Holding glargine 2/2 hypoglycemia #Depression Continue Sertraline DVT ppx Heparin Admit PCU tele Admission and Anticipated Discharge Date Admission Date: September 01, 2023 Subjective Patient evaluated at bedside Reports feeling concern of lasix and "last kidney" Spent considerable time educating patient about medications and process of slowly increasing medications to ensure success and prevent drastic shifts in pressure Patient verbalized understanding Physical Exam Constitutional: WD/WN, vitals as above Respiratory: right basilar crackles >>left Gastrointestinal (Abdomen): normal bowel sounds, soft, nontender, no hepatosplenomegaly Results & Data Results & Data Vital Signs (Past 12 Hours) Vital Signs Temp Pulse Pulse Resp BP BP Pulse Ox 09/03/23 11:44 36.7 C 62 20 146/68 H 94 09/03/23 07:53 81 09/03/23 07:53 09/03/23 07:50 36.5 C 77 19 175/66 H 96 09/03/23 04:15 162/80 H 09/03/23 03:40 36.3 C L 80 18 195/79 H 94 O2 Del Method O2 Flow Rate 09/03/23 11:44 Room Air 09/03/23 07:53 09/03/23 07:53 Nasal Cannula 2 09/03/23 07:50 Nasal Cannula 2 09/03/23 04:15 09/03/23 03:40 Nasal Cannula 2 Laboratory Results Short CBC 09/03/23 Range/Units 06:36 WBC 7.78 (4.8-10.8) K/ul Hgb 10.7 L (12.0-16.0) g/dl Hct 31.5 L (37.0-47.0) % Plt Count 310 (130-400) K/uL BMP 09/03/23 06:36 Sodium 136 Potassium 3.8 Chloride 103 Carbon Dioxide 23 BUN 36 H Creatinine 1.72 H Glucose 150 H Calcium 9.5 Medications Administered Home Medications Medication Instructions Recorded Confirmed Last Taken acetaminophen 500 mg tablet 1,000 mg PO BID 10/31/21 09/01/23 08/12/23 08:00 aspirin 81 mg tablet,delayed 81 mg PO QAM 10/31/21 09/01/23 08/12/23 release repaglinide 2 mg tablet 2 mg PO AC 10/31/21 09/01/23 08/12/23 12:00 sertraline 50 mg tablet 25 mg (1/2 x 50 mg) PO QAM #30 tabs 11/08/21 09/01/23 08/12/23 linagliptin 5 mg tablet (Tradjenta) 5 mg PO DAILY 12/16/21 09/01/23 08/12/23 loratadine 10 mg tablet 10 mg PO HS 12/16/21 09/01/23 08/11/23 atorvastatin 80 mg tablet 80 mg PO HS 09/02/22 09/01/23 08/11/23 empagliflozin 25 mg tablet 25 mg PO DAILY 09/02/22 09/01/23 08/12/23 (Jardiance) isosorbide dinitrate 30 mg tablet 30 mg PO TID #90 tabs 09/04/22 09/01/23 08/12/23 12:00 coQ10 (ubiquinol) 200 mg capsule 200 mg PO DAILY 08/12/23 09/01/23 08/12/23 hydralazine 100 mg tablet 100 mg PO TID 08/12/23 09/01/23 08/12/23 12:00 insulin degludec 100 unit/mL (3 30 unit subcut QAM 08/12/23 09/01/23 08/12/23 mL) subcutaneous pen (Tresiba FlexTouch U-100 insulin) [id number] 5 mg-zeaxanth 1 cap PO QID 08/12/23 09/01/23 08/12/23 12:00 1 mg-bilberry 7.5 mg-herbal capsule ([employer] Formula) amlodipine 5 mg tablet (Norvasc) 5 mg PO DAILY #30 tabs 08/21/23 09/01/23 Unknown labetalol 200 mg tablet 200 mg PO BID #60 tabs 08/21/23 09/01/23 Unknown Active Medications Generic Name Dose Route Start Last Admin Trade Name Freq PRN Reason Stop Dose Admin Acetaminophen 1,000 mg 09/01/23 15:30 09/03/23 08:18 Acetaminophen 500 Mg Tab PO 10/01/23 15:29 1,000 mg BID LUCAS Administration Amlodipine Besylate 10 mg 09/03/23 09:00 09/03/23 08:38 Amlodipine Besylate 5 Mg Tab PO 10/03/23 08:59 10 mg DAILY LUCAS Administration Aspirin 81 mg 09/01/23 15:45 09/03/23 08:14 Aspirin 81 Mg Ectab PO 10/01/23 15:44 81 mg QAM LUCAS Administration Atorvastatin Calcium 80 mg 09/01/23 21:00 09/02/23 20:38 Atorvastatin 40 Mg Tab PO 10/01/23 20:59 80 mg HS LUCAS Administration Carvedilol 25 mg 09/02/23 17:00 09/03/23 08:16 Carvedilol 25 Mg Tab PO 10/02/23 16:59 25 mg BIDM LUCAS Administration Dextrose 25 - 50 ml 09/01/23 18:13 09/02/23 06:48 Dextrose 50% 50 Ml Syringe IV 10/01/23 18:12 50 ml UD PRN Administration Hypoglycemia Protocol Protocol Heparin Sodium (Porcine) 5,000 units 09/01/23 15:45 09/03/23 05:47 Heparin Sod 5,000 Unit/0.5 Ml Vial SQ 10/01/23 15:44 5,000 units Q8 LUCAS Administration Hydralazine HCl 5 mg 09/01/23 12:16 09/03/23 03:43 Hydralazine Hcl 20 Mg/Ml Vial IV 10/01/23 12:15 5 mg Q6H PRN Administration systolic blood pressure =>185 Hydralazine HCl 100 mg 09/01/23 15:45 09/03/23 08:13 Hydralazine Tab 50 Mg Tab PO 10/01/23 15:44 100 mg TID LUCAS Administration Insulin Aspart 0 units 09/01/23 21:00 09/03/23 08:20 Insulin Aspart Per Unit Charge SC 10/01/23 20:59 2 units ACHS LUCAS Administration Insulin Glargine 16 units 09/01/23 21:00 09/01/23 21:17 Lantus Per Unit Charge SQ 10/01/23 20:59 16 units BID LUCAS Administration Isosorbide Dinitrate 30 mg 09/01/23 16:00 09/03/23 08:15 Isosorbide Dinitrate 20 Mg Tab PO 10/01/23 15:59 30 mg TID@0700,1200,1700 LUCAS Administration Loratadine 10 mg 09/01/23 21:00 09/02/23 20:38 Loratadine 10 Mg Tab PO 10/01/23 20:59 10 mg HS LUCAS Administration Multivitamins/Minerals 1 tab 09/02/23 09:00 09/03/23 08:14 Cerovite Adv Formula Tab PO 10/02/23 08:59 1 tab DAILY LUCAS Administration Sertraline HCl 50 mg 09/01/23 15:45 09/03/23 08:13 Sertraline Hcl 50 Mg Tablet PO 10/01/23 15:44 50 mg QAM LUCAS Administration
--- NOTE | 2023-09-03 13:30 | Electrocardiogram Report ---
Test Reason : Blood Pressure : / mmHG Vent. Rate : 073 BPM Atrial Rate : 073 BPM P-R Int : 198 ms QRS Dur : 138 ms QT Int : 444 ms P-R-T Axes : 111 -12 102 degrees QTc Int : 489 ms Sinus rhythm with frequent Premature ventricular complexes Left bundle branch block Abnormal ECG When compared with ECG of 01-SEP-2023 09:04, No significant change was found Confirmed by Juan Reese [id number]) on 09/03/2023 1:29:44 PM Referred By: REFERRED SELF Confirmed By:Juan Reese
--- NOTE | 2023-09-03 14:21 | Nephrology Progress Note ---
Date of Service September 03, 2023 Assessment & Plan Admission and Anticipated Discharge Date Admission Date: September 01, 2023 Subjective Assessment & Plan (1) JOSE (acute kidney injury): slight rise in creatinine compared to her baseline. So does qualify as acute kidney injury on background CKD. JOSE is hemodynamic related in the setting of congestive heart failure and hypertensive urgency. (2) CKD (chronic kidney disease): does have underlying CKD related with advanced age hypertension. Recent renal function blood test has been all over the place. However as long as her cardiac status remained stable she should not have major problem with her kidney function (3) Acute heart failure with preserved ejection fraction: based on her symptoms and her chest x-ray it appears she did have acute pulmonary edema with underlying diastolic heart failure. she had 1 dose of Lasix 40 IV yesterday Patient is extremely hesitant about using Lasix and very worried about how it affects the kidney function. however given the circumstances we do have to give her some diuretics both for fluid management as well as blood pressure control. her blood pressure still quite high and this will be managed by Cardiology. lasix 20 mg po daily from now. I did explain that we have to accept a slightly higher creat to maintain BP and fluid status. Creat 1.7 slightly higher than her previous baseline Daily renal panel S---feels weak and tired. Did not get much sleep. made good bit of urine. BP is better now Physical Exam Constitutional: no acute distress. perfectly normal speech and mentally very sharp Respiratory: no respiratory distress, clear to auscultation no rhonchi and no wheezes Cardiovascular: Rate/Rhythm: regular rate and regular rhythm Heart Sounds: normal S1 and normal S2; no murmur Vessels: radial pulses present; no JVD Ext remities: no edema Gastrointestinal (Abdomen): Inspection/Auscultation: abdomen normal to inspection and normal bowel sounds; abdomen not distended Percussion/Palpation: abdomen soft; abdomen nontender and no guarding Neurologic: CN's II-XI intact bilaterally and moves all extremities; no focal motor deficits Results & Data Vital Signs (Past 12 Hours) Vital Signs Temp Pulse Pulse Resp BP BP Pulse Ox 09/03/23 11:44 36.7 C 62 20 146/68 H 94 09/03/23 07:53 81 09/03/23 07:53 09/03/23 07:50 36.5 C 77 19 175/66 H 96 09/03/23 04:15 162/80 H 09/03/23 03:40 36.3 C L 80 18 195/79 H 94 O2 Del Method O2 Flow Rate 09/03/23 11:44 Room Air 09/03/23 07:53 09/03/23 07:53 Nasal Cannula 2 09/03/23 07:50 Nasal Cannula 2 09/03/23 04:15 09/03/23 03:40 Nasal Cannula 2
--- NOTE | 2023-09-03 14:58 | Cardiology Progress Note ---
Date of Service September 03, 2023 Assessment & Plan (1) Acute heart failure with preserved ejection fraction: (2) Hypertensive emergency: (3) Elevated troponin: (4) CKD (chronic kidney disease): (5) LBBB (left bundle branch block): Plan 88-year-old female presents with acute on chronic heart failure with preserved ejection fraction, hypertensive emergency in the setting of underlying hypertensive heart disease/labile hypertension. Troponin mildly elevated secondary to demand ischemia, CKD, and heart failure with preserved ejection fraction. Agree with titration of carvedilol to 25 mg twice daily and amlodipine to 10 mg daily. Nephrology input appreciated. Add Lasix 20 mg daily. Labetalol discontinued due to side effects. Continue hydralazine, and isosorbide dinitrate as ordered. I spent a total of 35 minutes on the date of service in preparation, delivery, and documentation of the care provided to this patient, excluding any time spent in the performance of separately billed services. Admission and Anticipated Discharge Date Admission Date: September 01, 2023 Subjective 88-year-old female seen and examined at the bedside. Shortness of breath has resolved. Denies chest pain or heaviness. Blood pressure improved. Creatinine trending upward slightly today. Review of Systems Review of Systems: All systems reviewed & are unremarkable except as noted in Subjective Physical Exam Constitutional: well nourished and + ill appearing; no acute distress Respiratory: no respiratory distress, no labored breathing and no retractions Auscultation: + crackles (Right base); no rhonchi and no wheezes Cardiovascular: Rate/Rhythm: regular rate and regular rhythm Heart Sounds: normal S1 and normal S2; no murmur Vessels: radial pulses present; no JVD Extremities: no edema Gastrointestinal (Abdomen): Inspection/Auscultation: abdomen normal to inspection and normal bowel sounds; abdomen not distended Percussion /Palpation: abdomen soft; abdomen nontender and no guarding Neurologic: CN's II-XI intact bilaterally and moves all extremities; no focal motor deficits Results & Data Vital Signs (Past 12 Hours) Vital Signs Temp Pulse Pulse Resp BP BP Pulse Ox 09/03/23 11:44 36.7 C 62 20 146/68 H 94 09/03/23 07:53 81 09/03/23 07:53 09/03/23 07:50 36.5 C 77 19 175/66 H 96 09/03/23 04:15 162/80 H 09/03/23 03:40 36.3 C L 80 18 195/79 H 94 O2 Del Method O2 Flow Rate 09/03/23 11:44 Room Air 09/03/23 07:53 09/03/23 07:53 Nasal Cannula 2 09/03/23 07:50 Nasal Cannula 2 09/03/23 04:15 09/03/23 03:40 Nasal Cannula 2 Laboratory Results CBC 09/03/23 Range/Units 06:36 WBC 7.78 (4.8-10.8) K/ul RBC 3.33 L (4.20-5.40) M/uL Hgb 10.7 L (12.0-16.0) g/dl Hct 31.5 L (37.0-47.0) % Plt Count 310 (130-400) K/uL Comprehensive Metabolic Panel 09/03/23 Range/Units 06:36 Sodium 136 (136-145) mmol/L Potassium 3.8 (3.5-5.1) mmol/L Chloride 103 (98-107) mmol/L Carbon Dioxide 23 (21-32) mmol/L BUN 36 H (6-23) mg/dl Creatinine 1.72 H (0.6-1.2) mg/dl Glucose 150 H (70-99(Fasting)) mg/dl Calcium 9.5 (8.6-10.3) mg/dl Intake and Output 09/02/23 09/03/23 09/03/23 22:59 06:59 14:59 Intake Total 500 / 740 Balance 500 / 740 Intake: Oral 500 / 740 Other: # Unmeasured Voids 3 Weight 87.5 kg Weight Measurement Method Built in [facility]
[2023-09-03] MEDS: FUROSEMIDE 20 MG TAB PO SCH (15:27)
[2023-09-04 06:14] LABS: Hemoglobin 9.5 g/dl (12.0-16.0); Mean Corpuscular Hemoglobin 31.6 pg (25.0-34.0); Mean Corpuscular Hgb Conc 32.8 g/dL (32.0-36.0); Mean Corpuscular Volume 96.3 fL (80.0-100.0); Mean Platelet Volume 9.9 fL (9.4-12.4); Platelet Count 272 K/uL (130-400); RDW Coefficient of Variation 12.8 % (11.5-14.5); RDW Standard Deviation 45.2 fL (36.4-46.3); Red Blood Count 3.01 M/uL (4.20-5.40); White Blood Count 6.45 K/ul (4.8-10.8)
[2023-09-04 06:30] LABS: BUN Creatinine Ratio 26.5 (10-20); Calcium 9.4 mg/dl (8.6-10.3); Creatinine Clr Calc Pharmacy 23.6 ml/min; Est GFR (African American) 30.5 ml/min; Est GFR (Non-African American) 26.3 ml/min; Magnesium 1.7 mg/dl (1.7-2.4); Phosphorus 2.8 mg/dl (2.5-4.9)
[2023-09-04 06:58] LABS: Potassium 3.7 mmol/L (3.5-5.1)
--- NOTE | 2023-09-04 08:59 | Hospitalist Progress Note ---
Date of Service September 04, 2023 Assessment & Plan (1) Hypertensive emergency: (2) Acute heart failure with preserved ejection fraction: (3) Elevated troponin I level: Plan Ms. Urrutia is an 88 year old woman with past medical history remarkable for chronic heart failure with preserved EF (EF 60%, TTE 2023), PVD, hypertension, hyperlipidemia, DM 2 insulin requiring, CKD 4(baseline creatinine 1.7),MGUS, familial hypocalciuric hypercalcemia, carotid disease and renal artery stenosis, mood disorder admitted for HTN emergency and acute HFpEF. Patient doing better with IV dosing and resumption of PO regimen. Plan to discontinue labetolol in favor for coreg. patient wishes to discontinue at this time. Cardiology notes reviewed: ccontinue coreg, increase to 37.5mg BID Nephrology consult for IV diuersis recommendations--transitioned to PO lasix 20mg daily. Patient with slow improvements in pressure to prevent drastic fluctuations and maintain strong renal perfusion given history of liable blood pressure. #Hypertensive Emergency *improved #Acute Heart failure with persevered EF #Mild Trop elevation ECHO 08/14/2023, EF 60-65%, G1DD, no PHTN Home regimen: Hydralazine 100mg TID, Isordil 30mg TID, recently started on Labetalol 200mg BID Last admission verapamil discontinued in favor of amlodipine, ANANT discontinued, lasix held Resume home regimen: Hydralazine, isordil, labetolol, amlodipine -s/p IV lasix 40mg in ED, labetalol 10mg IV, hydralazine 10mg IV Declined liu catheter placement -Encourage IOs Daily weights Discontinued labetalol in favor for coreg -Patient wishes to discontinue labetolol -Started Coreg--increased to 37.5 mg BID to start this afternoon -Continue amlodipine 10mg daily -If increased coreg fails to reduce pressure, consider nifedipine however long history of liable blood pressure noted -Consult nephrology for diuresis guidance -Continue lasix 20mg daily -Potassium replaced this morning #Daytime fatigue given nocturnal hypertension and question of nocturnal hypoxemia, plan for overnight pulse oximetry test #NSVT #Chronic LBBB Asymptomatic, < 30seconds -Continue BB as above -Cardiology consult #CKD IV #Renal artery stenosis. Left 50% origin stenosis & atrophic right kidney, on 2022 renal duplex Avoid nephrotoxic agents, including ANANT/ARB Nephrology consult to discuss ongoing diuresis, awaiting recommendations #Asymptomatic 50-69% SLIME stenosis, stable velocities on most recent duplex #Asymptomatic < 50% LICA stenosis Followed with vascular surgery for R ICA stenosis Resume home ASA and statin #DMII Tresiba 30U daily, Jardiance, Tradjenta, repaglinide -SSI 16 U BID, correction factor -Resume glargine 2/2 hypoglycemia #Depression Continue Sertraline DVT ppx Heparin Admit PCU tele Admission and Anticipated Discharge Date Admission Date: September 01, 2023 Subjective Reports concern for "low oxygen overnight" DEnies any chest pain or palpitations Reports edema in legs has improved and no SOB/ESCOBAR Physical Exam Constitutional: WD/WN, vitals as above Respiratory: normal respiratory effort, lungs clear to auscultation Cardiovascular: RRR, no murmur, no edema Musculoskeletal: no cyanosis or clubbing, extremities motor strength 5/5 Results & Data Results & Data Vital Signs (Past 12 Hours) Vital Signs Temp Pulse Pulse Resp BP BP Pulse Ox 09/04/23 07:50 09/04/23 07:46 69 09/04/23 07:30 36.6 C 84 18 176/65 H 95 09/04/23 05:48 174/62 H 09/04/23 04:45 193/73 H 09/04/23 04:30 36.4 C L 72 204/65 H 96 09/03/23 23:09 36.7 C 72 140/54 L 93 09/03/23 21:44 79 O2 Del Method O2 Flow Rate 09/04/23 07:50 Nasal Cannula 1 09/04/23 07:46 09/04/23 07:30 Nasal Cannula 1 09/04/23 05:48 09/04/23 04:45 09/04/23 04:30 Nasal Cannula 2 09/03/23 23:09 Room Air 09/03/23 21:44 Laboratory Results Short CBC 09/04/23 Range/Units 05:33 WBC 6.45 (4.8-10.8) K/ul Hgb 9.5 L (12.0-16.0) g/dl Hct 29.0 L (37.0-47.0) % Plt Count 272 (130-400) K/uL BMP 09/04/23 05:33 Sodium 134 L Potassium 3.7 Chloride 102 Carbon Dioxide 23 BUN 45 H Creatinine 1.70 H Glucose 194 H Calcium 9.4 Medications Administered Home Medications Medication Instructions Recorded Confirmed Last Taken acetaminophen 500 mg tablet 1,000 mg PO BID 10/31/21 09/01/23 08/12/23 08:00 aspirin 81 mg tablet,delayed 81 mg PO QAM 10/31/21 09/01/23 08/12/23 release repaglinide 2 mg tablet 2 mg PO AC 10/31/21 09/01/23 08/12/23 12:00 sertraline 50 mg tablet 25 mg (1/2 x 50 mg) PO QA #30 tabs 11/08/21 09/01/23 08/12/23 linagliptin 5 mg tablet (Tradjenta) 5 mg PO DAILY 12/16/21 09/01/23 08/12/23 loratadine 10 mg tablet 10 mg PO 12/16/21 09/01/23 08/11/23 atorvastatin 80 mg tablet 80 mg PO 09/02/22 09/01/23 08/11/23 empagliflozin 25 mg tablet 25 mg PO DAILY 09/02/22 09/01/23 08/12/23 (Jardiance) isosorbide dinitrate 30 mg tablet 30 mg PO TID #90 tabs 09/04/22 09/01/23 08/12/23 12:00 coQ10 (ubiquinol) 200 mg capsule 200 mg PO DAILY 08/12/23 09/01/23 08/12/23 hydralazine 100 mg tablet 100 mg PO TID 08/12/23 09/01/23 08/12/23 12:00 insulin degludec 100 unit/mL (3 30 unit subcut [facility] 08/12/23 09/01/23 08/12/23 mL) subcutaneous pen (Tresiba FlexTouch U-100 insulin) [id number]-nfn-bscrpo 5 mg-zeaxanth 1 cap PO QID 08/12/23 09/01/23 08/12/23 12:00 1 mg-bilberry 7.5 mg-herbal capsule ([email or web address] Formula) amlodipine 5 mg tablet (Norvasc) 5 mg PO DAILY #30 tabs 08/21/23 09/01/23 Unknown labetalol 200 mg tablet 200 mg PO BID #60 tabs 08/21/23 09/01/23 Unknown Active Medications Generic Name Dose Route Start Last Admin Trade Name Freq PRN Reason Stop Dose Admin Acetaminophen 1,000 mg 09/01/23 15:30 09/04/23 08:26 Acetaminophen 500 Mg Tab PO 10/01/23 15:29 1,000 mg BID LUCAS Administration Amlodipine Besylate 10 mg 09/03/23 09:00 09/04/23 08:22 Amlodipine Besylate 5 Mg Tab PO 10/03/23 08:59 10 mg DAILY LUCAS Administration Aspirin 81 mg 09/01/23 15:45 09/04/23 08:23 Aspirin 81 Mg Ectab PO 10/01/23 15:44 81 mg QAM LUCAS Administration Atorvastatin Calcium 80 mg 09/01/23 21:00 09/03/23 20:54 Atorvastatin 40 Mg Tab PO 10/01/23 20:59 80 mg HS LUCAS Administration Dextrose 25 - 50 ml 09/01/23 18:13 09/02/23 06:48 Dextrose 50% 50 Ml Syringe IV 10/01/23 18:12 50 ml UD PRN Administration Hypoglycemia Protocol Protocol Furosemide 20 mg 09/03/23 14:30 09/04/23 08:21 Furosemide 20 Mg Tab PO 10/03/23 14:29 20 mg QAM LUCAS Administration Heparin Sodium (Porcine) 5,000 units 09/01/23 15:45 09/04/23 05:17 Heparin Sod 5,000 Unit/0.5 Ml Vial SQ 10/01/23 15:44 5,000 units Q8 LUCAS Administration Hydralazine HCl 5 mg 09/01/23 12:16 09/04/23 05:19 Hydralazine Hcl 20 Mg/Ml Vial IV 10/01/23 12:15 5 mg Q6H PRN Administration systolic blood pressure =>185 Hydralazine HCl 100 mg 09/01/23 15:45 09/04/23 08:23 Hydralazine Tab 50 Mg Tab PO 10/01/23 15:44 100 mg TID LUCAS Administration Insulin Aspart 0 units 09/01/23 21:00 09/03/23 20:58 Insulin Aspart Per Unit Charge SC 10/01/23 20:59 5 units ACHS LUCAS Administration Insulin Glargine 16 units 09/01/23 21:00 09/01/23 21:17 Lantus Per Unit Charge SQ 10/01/23 20:59 16 units BID LUCAS Administration Isosorbide Dinitrate 30 mg 09/01/23 16:00 09/04/23 07:34 Isosorbide Dinitrate 20 Mg Tab PO 10/01/23 15:59 30 mg TID@0700,1200,1700 LUCAS Administration Loratadine 10 mg 09/01/23 21:00 09/03/23 20:54 Loratadine 10 Mg Tab PO 10/01/23 20:59 10 mg HS LUCAS Administration Multivitamins/Minerals 1 tab 09/02/23 09:00 09/04/23 08:21 Cerovite Adv Formula Tab PO 10/02/23 08:59 1 tab DAILY LUCAS Administration Sertraline HCl 50 mg 09/01/23 15:45 09/04/23 08:23 Sertraline Hcl 50 Mg Tablet PO 10/01/23 15:44 50 mg QAM LUCAS Administration
[2023-09-04] MEDS: LANTUS PER UNIT CHARGE SQ SCH (09:15)
[2023-09-04] MEDS: POTASSIUM CHLORIDE 10 MEQ TABCR PO STA (09:15)
--- NOTE | 2023-09-04 10:11 | Nephrology Progress Note ---
Date of Service September 04, 2023 Assessment & Plan Admission and Anticipated Discharge Date Admission Date: September 01, 2023 Subjective Assessment & Plan (1) JOSE (acute kidney injury): slight rise in creatinine compared to her baseline. So does qualify as acute kidney injury on background CKD. JOSE is hemodynamic related in the setting of congestive heart failure and hypertensive urgency. (2) CKD (chronic kidney disease): does have underlying CKD related with advanced age hypertension. Recent renal function blood test has been all over the place. However as long as her cardiac status remained stable she should not have major problem with her kidney function (3) Acute heart failure with preserved ejection fraction: based on her symptoms and her chest x-ray it appears she did have acute pulmonary edema with underlying diastolic heart failure. she had 1 dose of Lasix 40 IV and then 20 iv next day. Patient is extremely hesitant about using Lasix and very worried about how it affects the kidney function. however given the circumstances we do have to give her some diuretics both for fluid management as well as blood pressure control. her blood pressure still quite high and this will be managed by Cardiology. Na was higher with Iv lasix but dropped with lasix 20 mg po daily. she likely needs higher maintenance dose than 20--raise to 40 daily. I did explain that we have to accept a slightly higher creat to maintain BP and fluid status. Creat 1.7 slightly higher than her previous baseline Daily renal panel S---feels weak and tired. Did not get much sleep. made good bit of urine. BP is better now Physical Exam Constitutional: no acute distress. perfectly normal speech and mentally very sharp Respiratory: no respiratory distress, clear to auscultation no rhonchi and no wheezes Cardiovascular: Rate/Rhythm: regular rate and regular rhythm Heart Sounds: normal S1 and normal S2; no murmur Vessels: radial pulses present; no JVD Extremities: no edema Gastrointestinal (Abdomen): Inspection/Auscultation: abdomen normal to inspection and normal bowel sounds; abdomen not distended Percussion/Palpation: abdomen soft; abdomen nontender and no guarding Neurologic: CN's II-XI intact bilaterally and moves all extremities; no focal motor deficits Results & Data Vital Signs (Past 12 Hours) Vital Signs Temp Pulse Pulse Resp BP BP Pulse Ox 09/04/23 07:50 09/04/23 07:46 69 09/04/23 07:30 36.6 C 84 18 176/65 H 95 09/04/23 05:48 174/62 H 09/04/23 04:45 193/73 H 09/04/23 04:30 36.4 C L 72 204/65 H 96 09/03/23 23:09 36.7 C 72 140/54 L 93 O2 Del Method O2 Flow Rate 09/04/23 07:50 Nasal Cannula 1 09/04/23 07:46 09/04/23 07:30 Nasal Cannula 1 09/04/23 05:48 09/04/23 04:45 09/04/23 04:30 Nasal Cannula 2 09/03/23 23:09 Room Air
[2023-09-04] MEDS: carvediloL 12.5 MG TAB PO ONE (12:07)
[2023-09-04] MEDS: FUROSEMIDE 40 MG TAB PO SCH (13:09)
--- NOTE | 2023-09-04 14:17 | Cardiology Progress Note ---
Date of Service September 04, 2023 Assessment & Plan (1) Acute heart failure with preserved ejection fraction: (2) Hypertensive emergency: (3) Elevated troponin: (4) CKD (chronic kidney disease): (5) LBBB (left bundle branch block): Plan 88-year-old female presents with acute on chronic heart failure with preserved ejection fraction, hypertensive emergency in the setting of underlying hypertensive heart disease/labile hypertension. Troponin mildly elevated secondary to demand ischemia, CKD, and heart failure with preserved ejection fraction. Labetalol discontinued due to side effects. Titrate carvedilol to 37.5 mg twice daily. Amlodipine titrated to 10 mg daily 09/03/2023. Lasix 40 mg daily added today. Continue hydralazine, and isosorbide dinitrate as ordered. Nocturnal pulse ox trend ordered. I spent a total of 35 minutes on the date of service in preparation, delivery, and documentation of the care provided to this patient, excluding any time spent in the performance of separately billed services. Admission and Anticipated Discharge Date Admission Date: September 01, 2023 Subjective 88-year-old patient seen and examined at the bedside. Reports sleep disturbance overnight. Voices concern regarding possible nocturnal hypoxia. Blood pressure improving this a.m. after medication. Denies chest pain or shortness of breath. First dose of oral furosemide today as per nephrology. Patient offers no other concerns/complaints. Review of Systems Review of Systems: All systems reviewed & are unremarkable except as noted in Subjective Physical Exam Constitutional: well nourished and + ill appearing; no acute distress Respiratory: no respiratory distress, no labored breathing and no retractions Auscultation: + crackles (Right base); no rhonchi and no wheezes Cardiovascular: Rate/Rhythm: regular rate and regular rhythm Heart Sounds: normal S1 and normal S2; no murmur Vessels: radial pulses present; no JVD Extremities: no edema Gastrointestinal (Abdomen): Inspection/Auscultation: abdomen normal to inspection and normal bowel sounds; abdomen not distended Percussion/Palpation: abdomen soft; abdomen nontender and no guarding Neurologic: CN's II-XI intact bilaterally and moves all extremities; no focal motor deficits Results & Data Vital Signs (Past 12 Hours) Vital Signs Temp Pulse Pulse Resp BP BP Pulse Ox 09/04/23 11:06 36.9 C 75 18 158/67 H 96 09/04/23 07:50 09/04/23 07:46 69 09/04/23 07:30 36.6 C 84 18 176/65 H 95 09/04/23 05:48 174/62 H 09/04/23 04:45 193/73 H 09/04/23 04:30 36.4 C L 72 204/65 H 96 O2 Del Method O2 Flow Rate 09/04/23 11:06 Nasal Cannula 1 09/04/23 07:50 Nasal Cannula 1 09/04/23 07:46 09/04/23 07:30 Nasal Cannula 1 09/04/23 05:48 09/04/23 04:45 09/04/23 04:30 Nasal Cannula 2 Laboratory Results CBC 09/04/23 Range/Units 05:33 WBC 6.45 (4.8-10.8) K/ul RBC 3.01 L (4.20-5.40) M/uL Hgb 9.5 L (12.0-16.0) g/dl Hct 29.0 L (37.0-47.0) % Plt Count 272 (130-400) K/uL Comprehensive Metabolic Panel 09/04/23 Range/Units 05:33 Sodium 134 L (136-145) mmol/L Potassium 3.7 (3.5-5.1) mmol/L Chloride 102 (98-107) mmol/L Carbon Dioxide 23 (21-32) mmol/L BUN 45 H (6-23) mg/dl Creatinine 1.70 H (0.6-1.2) mg/dl Glucose 194 H (70-99(Fasting)) mg/dl Calcium 9.4 (8.6-10.3) mg/dl Intake and Output 09/03/23 09/04/23 09/04/23 22:59 06:59 14:59 Intake Total 1040 / 1040 Balance 1040 / 1040 Intake: Oral 1040 / 1040 Other: # Unmeasured Voids 4 Weight 87.9 kg Weight Measurement Method Built in [facility]
[2023-09-04] MEDS: carvediloL 25 MG TAB PO SCH (18:18)
[2023-09-05 06:12] LABS: Hematocrit (blood only) 26.3 % (37.0-47.0); Hemoglobin 8.9 g/dl (12.0-16.0); Mean Corpuscular Hemoglobin 31.7 pg (25.0-34.0); Mean Corpuscular Hgb Conc 33.8 g/dL (32.0-36.0); Mean Corpuscular Volume 93.6 fL (80.0-100.0); Mean Platelet Volume 10.1 fL (9.4-12.4); Platelet Count 266 K/uL (130-400); RDW Coefficient of Variation 12.7 % (11.5-14.5); RDW Standard Deviation 43.8 fL (36.4-46.3); Red Blood Count 2.81 M/uL (4.20-5.40); White Blood Count 6.93 K/ul (4.8-10.8)
[2023-09-05 06:36] LABS: BUN Creatinine Ratio 29.4 (10-20); Calcium 8.9 mg/dl (8.6-10.3); Creatinine Clr Calc Pharmacy 23.8 ml/min; Est GFR (African American) 30.5 ml/min; Est GFR (Non-African American) 26.3 ml/min; Magnesium 1.5 mg/dl (1.7-2.4); Phosphorus 3.4 mg/dl (2.5-4.9); Potassium 3.6 mmol/L (3.5-5.1)
[2023-09-05] MEDS: MAGNESIUM SULFATE / D5W 1 GM/100 ML BAG IV SCH (07:53)
[2023-09-05] MEDS ORDERED: MAGNESIUM CHLORIDE W/CALCIUM 64MG DELAYED REL TAB PO SCH (09:00)
--- NOTE | 2023-09-05 10:15 | Electrocardiogram Report ---
Test Reason : Blood Pressure : / mmHG Vent. Rate : 071 BPM Atrial Rate : 071 BPM P-R Int : 194 ms QRS Dur : 142 ms QT Int : 444 ms P-R-T Axes : 000 -09 122 degrees QTc Int : 482 ms Normal sinus rhythm Left bundle branch block Abnormal ECG When compared with ECG of 03-SEP-2023 05:52, Premature ventricular complexes are no longer Present Confirmed by Chris Jiang ([id number]) on 09/05/2023 10:14:38 AM Referred By: REFERRED SELF Confirmed By:Chris Jiang
[2023-09-05] MEDS: MAGNESIUM CHLORIDE W/CALCIUM 64MG DELAYED REL TAB PO SCH (10:49)
--- NOTE | 2023-09-05 13:11 | Hospitalist Progress Note ---
Date of Service September 05, 2023 Assessment & Plan (1) Hypertensive emergency: (2) Acute heart failure with preserved ejection fraction: (3) Elevated troponin I level: Plan Ms. Urrutia is an 88 year old woman with past medical history remarkable for chronic heart failure with preserved EF (EF 60%, TTE 2023), PVD, hypertension, hyperlipidemia, DM 2 insulin requiring, CKD 4(baseline creatinine 1.7),MGUS, familial hypocalciuric hypercalcemia, carotid disease and renal artery stenosis, mood disorder admitted for HTN emergency and acute HFpEF. Patient doing better with IV dosing and resumption of PO regimen. Plan to discontinue labetolol in favor for coreg. patient wishes to discontinue at this time. Cardiology notes reviewed: ccontinue coreg, increase to 37.5mg BID Nephrology consult for IV diuersis recommendations--transitioned to PO lasix 20mg daily. Patient with slow improvements in pressure to prevent drastic fluctuations and maintain strong renal perfusion given history of liable blood pressure. #Hypertensive Emergency *resolved #Acute Heart failure with persevered EF *improving #Mild Trop elevation ECHO 08/14/2023, EF 60-65%, G1DD, no PHTN Home regimen: Hydralazine 100mg TID, Isordil 30mg TID, recently started on Labetalol 200mg BID Last admission verapamil discontinued in favor of amlodipine, ANANT discontinued, lasix held Resume home regimen: Hydralazine, isordil, labetolol, amlodipine -s/p IV lasix 40mg in ED, labetalol 10mg IV, hydralazine 10mg IV Declined liu catheter placement -Encourage IOs Daily weights Discontinued labetalol in favor for coreg -Patient wishes to discontinue labetolol -Started Coreg-Continue 37.5 mg BID -Continue amlodipine 10mg daily -allow for pressures in 160s at this time -Consult nephrology for diuresis guidance -Continue lasix 20mg daily -Potassium replaced this morning #Daytime fatigue given nocturnal hypertension and question of nocturnal hypoxemia, plan for overnight pulse oximetry test #NSVT #Chronic LBBB Asymptomatic, < 30seconds -Continue BB as above -Cardiology consult #CKD IV #Renal artery stenosis. Left 50% origin stenosis & atrophic right kidney, on 2022 renal duplex Avoid nephrotoxic agents, including ANANT/ARB Nephrology consult to discuss ongoing diuresis, awaiting recommendations #Asymptomatic 50-69% SLIME stenosis, stable velocities on most recent duplex #Asymptomatic < 50% LICA stenosis Followed with vascular surgery for R ICA stenosis Resume home ASA and statin #DMII Tresiba 30U daily, Jardiance, Tradjenta, repaglinide -SSI 16 U BID, correction factor -Resume glargine , intake better #Depression Continue Sertraline DVT ppx Heparin Admit PCU tele Admission and Anticipated Discharge Date Admission Date: September 01, 2023 Subjective Patient evaluated at bedside Reports feeling much better overall, denies any acute concerns Initial concern regarding the magnesium, but verbalized understanding when explained Still notes ESCOBAR, but much improved overall Physical Exam Constitutional: WD/WN, vitals as above Respiratory: normal respiratory effort, lungs clear to auscultation no crackles apprecaited Results & Data Results & Data Vital Signs (Past 12 Hours) Vital Signs Temp Pulse Pulse Pulse Resp BP BP 09/05/23 11:17 36.8 C 70 18 160/66 H 09/05/23 11:00 171/75 H 09/05/23 09:00 09/05/23 08:00 69 09/05/23 07:30 181/75 H 09/05/23 07:20 36.6 C 75 18 09/05/23 03:33 36.8 C 79 16 171/68 H 09/05/23 03:00 72 Pulse Ox Pulse Ox O2 Del Method O2 Del Method O2 Flow Rate O2 Flow Rate 09/05/23 11:17 95 Nasal Cannula 1 09/05/23 11:00 09/05/23 09:00 Nasal Cannula 2 09/05/23 08:00 09/05/23 07:30 09/05/23 07:20 95 Nasal Cannula 1 09/05/23 03:33 94 Nasal Cannula 2 09/05/23 03:00 94 Nasal Cannula 2 Laboratory Results Short CBC 09/05/23 Range/Units 05:34 WBC 6.93 (4.8-10.8) K/ul Hgb 8.9 L (12.0-16.0) g/dl Hct 26.3 L (37.0-47.0) % Plt Count 266 (130-400) K/uL BMP 09/05/23 05:34 Sodium 134 L Potassium 3.6 Chloride 102 Carbon Dioxide 22 BUN 50 H Creatinine 1.70 H Glucose 204 H Calcium 8.9 Medications Administered Home Medications Medication Instructions Recorded Confirmed Last Taken acetaminophen 500 mg tablet 1,000 mg PO BID 10/31/21 09/01/23 08/12/23 08:00 aspirin 81 mg tablet,delayed 81 mg PO QAM 10/31/21 09/01/23 08/12/23 release repaglinide 2 mg tablet 2 mg PO AC 10/31/21 09/01/23 08/12/23 12:00 sertraline 50 mg tablet 25 mg (1/2 x 50 mg) PO QAM #30 tabs 11/08/21 09/01/23 08/12/23 linagliptin 5 mg tablet (Tradjenta) 5 mg PO DAILY 12/16/21 09/01/23 08/12/23 loratadine 10 mg tablet 10 mg PO HS 12/16/21 09/01/23 08/11/23 atorvastatin 80 mg tablet 80 mg PO 09/02/22 09/01/23 08/11/23 empagliflozin 25 mg tablet 25 mg PO DAILY 09/02/22 09/01/23 08/12/23 (Jardiance) isosorbide dinitrate 30 mg tablet 30 mg PO TID #90 tabs 09/04/22 09/01/23 08/12/23 12:00 coQ10 (ubiquinol) 200 mg capsule 200 mg PO DAILY 08/12/23 09/01/23 08/12/23 hydralazine 100 mg tablet 100 mg PO TID 08/12/23 09/01/23 08/12/23 12:00 insulin degludec 100 unit/mL (3 30 unit subcut QAM 08/12/23 09/01/23 08/12/23 mL) subcutaneous pen (Tresiba FlexTouch U-100 insulin) [id number] 5 mg-zeaxanth 1 cap PO QID 08/12/23 09/01/23 08/12/23 12:00 1 mg-bilberry 7.5 mg-herbal capsule (Macular Health Formula) amlodipine 5 mg tablet (Norvasc) 5 mg PO DAILY #30 tabs 08/21/23 09/01/23 Unknown labetalol 200 mg tablet 200 mg PO BID #60 tabs 08/21/23 09/01/23 Unknown Active Medications Generic Name Dose Route Start Last Admin Trade Name Freq PRN Reason Stop Dose Admin Acetaminophen 1,000 mg 09/01/23 15:30 09/05/23 09:02 Acetaminophen 500 Mg Tab PO 10/01/23 15:29 1,000 mg BID LUCAS Administration Amlodipine Besylate 10 mg 09/03/23 09:00 09/05/23 09:02 Amlodipine Besylate 5 Mg Tab PO 10/03/23 08:59 10 mg DAILY LUCAS Administration Aspirin 81 mg 09/01/23 15:45 09/05/23 09:03 Aspirin 81 Mg Ectab PO 10/01/23 15:44 81 mg QAM LUCAS Administration Atorvastatin Calcium 80 mg 09/01/23 21:00 09/04/23 20:06 Atorvastatin 40 Mg Tab PO 10/01/23 20:59 80 mg HS LUCAS Administration Carvedilol 37.5 mg 09/04/23 17:00 09/05/23 09:03 Carvedilol 25 Mg Tab PO 10/04/23 16:59 37.5 mg BIDM LUCAS Administration Dextrose 25 - 50 ml 09/01/23 18:13 09/02/23 06:48 Dextrose 50% 50 Ml Syringe IV 10/01/23 18:12 50 ml UD PRN Administration Hypoglycemia Protocol Protocol Furosemide 40 mg 09/04/23 10:45 09/05/23 09:03 Furosemide 40 Mg Tab PO 10/04/23 10:44 40 mg QAM LUCAS Administration Heparin Sodium (Porcine) 5,000 units 09/01/23 15:45 09/05/23 05:36 Heparin Sod 5,000 Unit/0.5 Ml Vial SQ 10/01/23 15:44 5,000 units Q8 LUCAS Administration Hydralazine HCl 5 mg 09/01/23 12:16 09/04/23 05:19 Hydralazine Hcl 20 Mg/Ml Vial IV 10/01/23 12:15 5 mg Q6H PRN Administration systolic blood pressure =>185 Hydralazine HCl 100 mg 09/01/23 15:45 09/05/23 09:03 Hydralazine Tab 50 Mg Tab PO 10/01/23 15:44 100 mg TID LUCAS Administration Magnesium Sulfate/Dextrose 1 gm in 100 mls @ 50 mls/hr 09/05/23 07:30 09/05/23 11:26 Magnesium Sulfate / D5w IV 09/05/23 13:29 50 mls/hr Q2H LUCAS Administration Insulin Aspart 0 units 09/01/23 21:00 09/05/23 13:06 Insulin Aspart Per Unit Charge SC 10/01/23 20:59 9 units ACHS LUCAS Administration Isosorbide Dinitrate 30 mg 09/01/23 16:00 09/05/23 13:06 Isosorbide Dinitrate 20 Mg Tab PO 10/01/23 15:59 30 mg TID@0700,1200,1700 LUCAS Administration Loratadine 10 mg 09/01/23 21:00 09/04/23 20:05 Loratadine 10 Mg Tab PO 10/01/23 20:59 10 mg HS LUCAS Administration Magnesium Chloride 64 mg 09/05/23 09:00 09/05/23 10:49 Magnesium Chloride W/Calcium 64mg Delayed Rel Tab PO 10/05/23 08:59 64 mg DAILY LUCAS Administration Multivitamins/Minerals 1 tab 09/02/23 09:00 09/05/23 09:03 Cerovite Adv Formula Tab PO 10/02/23 08:59 1 tab DAILY LUCAS Administration Sertraline HCl 50 mg 09/01/23 15:45 09/05/23 09:03 Sertraline Hcl 50 Mg Tablet PO 10/01/23 15:44 50 mg QAM LUCAS Administration
--- NOTE | 2023-09-05 19:53 | Cardiology Progress Note ---
Date of Service September 05, 2023 Assessment & Plan (1) Acute heart failure with preserved ejection fraction: Plan: pt is no longer volume overloaded no longer needs IV diuretics on PO now (2) Hypertensive emergency: Plan: goal BP <170 systolic; continue current regiment (3) Elevated troponin: (4) CKD (chronic kidney disease): (5) LBBB (left bundle branch block): Plan 88-year-old female presents with acute on chronic heart failure with preserved ejection fraction, hypertensive emergency in the setting of underlying hypertensive heart disease/labile hypertension. Troponin mildly elevated secondary to demand ischemia, CKD, and heart failure with preserved ejection fraction. Continue current multiple anti-hypertensive agents Monitor on telemetry I would not increase the coreg dose given her age and LBBB i do not want to promote any bradycardia I would increase dose of imdur if need to keep BP systolic <170 as next option I discussed my assessment with the hospitalist and she agreed with the plan Admission and Anticipated Discharge Date Admission Date: September 01, 2023 Subjective pt seen in cardiology f/u due to hypertensive urgency Pt did not sleep well last night due to having nocturnal pulse ox monitor all night She tells me she is tired and fatigued no headache or blurry vision kidney function jumped a little BP was better after her morning medications on telemetry she has SR in the 70s and some ectopic atrial rhythms no bradycardia Review of Systems Review of Systems: All systems reviewed & are unremarkable except as noted in HPI & below Physical Exam Physical Exam: aaox3, NAD NC/AT, EOMI Supple No JVD Nrl S1/S2, No murmur CTA b/l no w/r/r soft nt/nd no LE edema b/l skin intact no focal deficits Results & Data Vital Signs (Past 12 Hours) Vital Signs Temp Pulse Pulse Resp BP Pulse Ox O2 Del Method 09/05/23 16:33 36.6 C 71 18 148/65 H 95 Nasal Cannula 09/05/23 16:00 Nasal Cannula 09/05/23 11:17 36.8 C 70 18 160/66 H 95 Nasal Cannula 09/05/23 11:00 171/75 H 09/05/23 09:00 Nasal Cannula 09/05/23 08:00 69 O2 Flow Rate 09/05/23 16:33 1 09/05/23 16:00 2 09/05/23 11:17 1 09/05/23 11:00 09/05/23 09:00 2 09/05/23 08:00 Laboratory Results Laboratory Results - last 24 hr 09/04/23 09/05/23 09/05/23 20:02 05:34 07:51 WBC 6.93 RBC 2.81 L Hgb 8.9 L Hct 26.3 L MCV 93.6 MCH 31.7 MCHC 33.8 RDW Std Deviation 43.8 RDW Coeff of Rojelio 12.7 Plt Count 266 MPV 10.1 Sodium 134 L Potassium 3.6 Chloride 102 Carbon Dioxide 22 Anion Gap 10 BUN 50 H Creatinine 1.70 H Est Cr Clr Drug Dosing 23.8 Est GFR ( Amer) 30.5 Est GFR (Non-Af Amer) 26.3 BUN/Creatinine Ratio 29.4 H Glucose 204 H POC Glucose 207 H 216 H Calcium 8.9 Phosphorus 3.4 Magnesium 1.5 L 09/05/23 09/05/23 11:51 16:46 WBC RBC Hgb Hct MCV MCH MCHC RDW Std Deviation RDW Coeff of Rojelio Plt Count MPV Sodium Potassium Chloride Carbon Dioxide Anion Gap BUN Creatinine Est Cr Clr Drug Dosing Est GFR ( Amer) Est GFR (Non-Af Amer) BUN/Creatinine Ratio Glucose POC Glucose 299 H 210 H Calcium Phosphorus Magnesium Medications Administered Current Inpatient Medications Acetaminophen (Acetaminophen 500 Mg Tab) 1,000 mg PO BID [facility] Stop: 10/01/23 15:29 Last Admin: 09/05/23 09:02 Dose: 1,000 mg Amlodipine Besylate (Amlodipine Besylate 5 Mg Tab) 10 mg PO DAILY LUCAS Stop: 10/03/23 08:59 Last Admin: 09/05/23 09:02 Dose: 10 mg Aspirin (Aspirin 81 Mg Ectab) 81 mg PO QAM LUCAS Stop: 10/01/23 15:44 Last Admin: 09/05/23 09:03 Dose: 81 mg Atorvastatin Calcium (Atorvastatin 40 Mg Tab) 80 mg PO HS [facility] Stop: 10/01/23 20:59 Last Admin: 09/04/23 20:06 Dose: 80 mg Carvedilol (Carvedilol 25 Mg Tab) 37.5 mg PO BIDM LUCAS Stop: 10/04/23 16:59 Last Admin: 09/05/23 17:18 Dose: 37.5 mg Dextrose (Dextrose 50% 50 Ml Syringe) 25 - 50 ml IV UD PRN; Protocol PRN Reason: Hypoglycemia Protocol Stop: 10/01/23 18:12 Last Admin: 09/02/23 06:48 Dose: 50 ml Furosemide (Furosemide 40 Mg Tab) 40 mg PO QAM LUCAS Stop: 10/04/23 10:44 Last Admin: 09/05/23 09:03 Dose: 40 mg Glucagon (Glucagon For Inj 1 Mg Vial) 1 mg SQ UD PRN; Protocol PRN Reason: Hypoglycemia Protocol Stop: 10/01/23 18:12 Glucose (Glucose 10 Tab/Tube) 4 - 8 tab PO UD PRN; Protocol PRN Reason: Hypoglycemia Treatment Stop: 10/01/23 18:12 Glucose (Glucose 40% Gel 15 Gm Tube) 15 - 30 gm PO UD PRN; Protocol PRN Reason: Hypoglycemia Protocol Stop: 10/01/23 18:12 Heparin Sodium (Porcine) (Heparin Sod 5,000 Unit/0.5 Ml Vial) 5,000 units SQ Q8 LUCAS Stop: 10/01/23 15:44 Last Admin: 09/05/23 13:45 Dose: 5,000 units Hydralazine HCl (Hydralazine Hcl 20 Mg/Ml Vial) 5 mg IV Q6H PRN PRN Reason: systolic blood pressure =>185 Stop: 10/01/23 12:15 Last Admin: 09/04/23 05:19 Dose: 5 mg Hydralazine HCl (Hydralazine Tab 50 Mg Tab) 100 mg PO TID LUCAS Stop: 10/01/23 15:44 Last Admin: 09/05/23 13:45 Dose: 100 mg Insulin Aspart (Insulin Aspart Per Unit Charge) 0 units SC ACHS [facility] Stop: 10/01/23 20:59 Last Admin: 09/05/23 17:21 Dose: 8 units Insulin Glargine (Lantus Per Unit Charge) 10 units SQ BID [facility] Stop: 10/05/23 20:59 Isosorbide Dinitrate (Isosorbide Dinitrate 20 Mg Tab) 30 mg PO TID@0700,1200,1700 [facility] Stop: 10/01/23 15:59 Last Admin: 09/05/23 17:17 Dose: 30 mg Loratadine (Loratadine 10 Mg Tab) 10 mg PO HS [facility] Stop: 10/01/23 20:59 Last Admin: 09/04/23 20:05 Dose: 10 mg Magnesium Chloride (Magnesium Chloride W/Calcium 64mg Delayed Rel Tab) 64 mg PO DAILY LUCAS Stop: 10/05/23 08:59 Last Admin: 09/05/23 10:49 Dose: 64 mg Miscellaneous (Carbohydrates For Hypoglycemia ) 15 - 30 gm PO UD PRN PRN Reason: Hypoglycemia Protocol Stop: 10/01/23 18:12 Multivitamins/Minerals (Cerovite Adv Formula Tab) 1 tab PO DAILY LUCAS Stop: 10/02/23 08:59 Last Admin: 09/05/23 09:03 Dose: 1 tab Nitroglycerin (Nitroglycerin Sl 0.4 Mg/Tab Tab) 0.4 mg SL Q5M PRN PRN Reason: Chest Pain Stop: 10/01/23 15:28 Polyethylene Glycol (Polyethylene (Miralax) 17 Gm Pack) 17 gm PO DAILY PRN PRN Reason: Constipation Stop: 10/01/23 15:28 Sertraline HCl (Sertraline Hcl 50 Mg Tablet) 50 mg PO QAM [facility] Stop: 10/01/23 15:44 Last Admin: 09/05/23 09:03 Dose: 50 mg Sodium Chloride (Sodium Chloride 0.65% Na Soln 45 Ml (Wolfe)) 1 sprays NA PRN PRN PRN Reason: Congestion Stop: 10/02/23 10:01
[2023-09-05] MEDS: LANTUS PER UNIT CHARGE SQ SCH (21:03)
[2023-09-06 06:52] LABS: Calcium 9.1 mg/dl (8.6-10.3); Magnesium 2.2 mg/dl (1.7-2.4); Potassium 3.6 mmol/L (3.5-5.1)
[2023-09-06 06:58] LABS: BUN Creatinine Ratio 29.4 (10-20); Creatinine Clr Calc Pharmacy 22.6 ml/min
--- NOTE | 2023-09-06 09:07 | Communication Note ---
Date of Service: September 06, 2023 Care reviewed w/ Dr Graham today regarding lasix dosing, sodium levels, BUN/creat trends, overall d/c dispo. Reasonable to d/c today w/ following plan: -d/c on lasix 40 mg MWF -d/c on current doses of hydralazine, amlodipine, coreg, imdur, and as above lasix -hospital d/c appt w/ Dr Smith (her OP therapeutic recreation director) in 1-2 wks w/ bmp, serum and urine osms, urine electrolytes to be ordered by Neph nurse and obtained a few days before appt -may be a candidate for MTM HTN monitoring or ambulatory BP study or CKD Case Management all through nephrology but defer this to Dr Smith I discussed each point above with Dr Graham and she is in agreement.
--- NOTE | 2023-09-06 14:10 | Hospitalist Progress Note ---
Date of Service September 06, 2023 Assessment & Plan (1) Hypertensive emergency: (2) Acute heart failure with preserved ejection fraction: (3) Elevated troponin I level: Plan Ms. Urrutia is an 88 year old woman with past medical history remarkable for chronic heart failure with preserved EF (EF 60%, TTE 2023), PVD, hypertension, hyperlipidemia, DM 2 insulin requiring, CKD 4(baseline creatinine 1.7),MGUS, familial hypocalciuric hypercalcemia, carotid disease and renal artery stenosis, mood disorder admitted for HTN emergency and acute HFpEF. Patient doing better with IV dosing and resumption of PO regimen. Plan to discontinue labetolol in favor for coreg. patient wishes to discontinue at this time. Cardiology notes reviewed: ccontinue coreg, increase to 37.5mg BID Nephrology consult for IV diuersis recommendations--transitioned to PO lasix 20mg daily. Patient with slow improvements in pressure to prevent drastic fluctuations and maintain strong renal perfusion given history of liable blood pressure. #Hypertensive Emergency *resolved #Acute Heart failure with persevered EF *improving #Mild Trop elevation ECHO 08/14/2023, EF 60-65%, G1DD, no PHTN Home regimen: Hydralazine 100mg TID, Isordil 30mg TID, recently started on Labetalol 200mg BID Last admission verapamil discontinued in favor of amlodipine, ANANT discontinued, lasix held Resume home regimen: Hydralazine, isordil, labetolol, amlodipine -s/p IV lasix 40mg in ED, labetalol 10mg IV, hydralazine 10mg IV Declined liu catheter placement -Encourage IOs Daily weights Discontinued labetalol in favor for coreg -Patient wishes to discontinue labetolol -Started Coreg-Continue 37.5 mg BID -Continue amlodipine 10mg daily -allow for pressures in 160s at this time -Consult nephrology for diuresis guidance -Hold lasix 20mg for now--plan for MWF on discharge #Daytime fatigue given nocturnal hypertension and question of nocturnal hypoxemia, plan for overnight pulse oximetry test Qualifies for home oxygen Plan for 2 step tomorrow #NSVT #Chronic LBBB Asymptomatic, < 30seconds -Continue BB as above -Cardiology consult, continue current coreg dosing #CKD IV #Renal artery stenosis. Left 50% origin stenosis & atrophic right kidney, on 2022 renal duplex Avoid nephrotoxic agents, including ANANT/ARB Nephrology consult to discuss ongoing diuresis, awaiting recommendations #Asymptomatic 50-69% SLIME stenosis, stable velocities on most recent duplex #Asymptomatic < 50% LICA stenosis Followed with vascular surgery for R ICA stenosis Continue home ASA and statin #DMII Tresiba 30U daily, Jardiance, Tradjenta, repaglinide -SSI 16 U BID, correction factor -Resume glargine , intake better #Depression Continue Sertraline DVT ppx Heparin Admit PCU tele Plan for discharge tomorrow Admission and Anticipated Discharge Date Admission Date: September 01, 2023 Subjective Patient evaluated at bedside Denies any acute events. Actively engaged in care and all questions answered Physical Exam Constitutional: WD/WN, vitals as above Respiratory: normal respiratory effort, lungs clear to auscultation Cardiovascular: RRR, no murmur, no edema Gastrointestinal (Abdomen): normal bowel sounds, soft, nontender, no hepatosplenomegaly Results & Data Results & Data Vital Signs (Past 12 Hours) Vital Signs Temp Pulse Resp BP Pulse Ox O2 Del Method O2 Flow Rate 09/06/23 11:40 36.5 C 67 16 137/65 95 Room Air 09/06/23 08:00 Nasal Cannula 1 09/06/23 07:51 36.6 C 76 18 177/74 H 94 Nasal Cannula 2 09/06/23 06:12 164/72 H Laboratory Results [facility] 09/06/23 05:20 Sodium 132 L Potassium 3.6 Chloride 101 Carbon Dioxide 24 BUN 52 H Creatinine 1.77 H Glucose 163 H Calcium 9.1 Medications Administered Home Medications Medication Instructions Recorded Confirmed Last Taken acetaminophen 500 mg tablet 1,000 mg PO BID 10/31/21 09/01/23 08/12/23 08:00 aspirin 81 mg tablet,delayed 81 mg PO QAM 10/31/21 09/01/23 08/12/23 release repaglinide 2 mg tablet 2 mg PO AC 10/31/21 09/01/23 08/12/23 12:00 sertraline 50 mg tablet 25 mg (1/2 x 50 mg) PO QAM #30 tabs 11/08/21 09/01/23 08/12/23 linagliptin 5 mg tablet (Tradjenta) 5 mg PO DAILY 12/16/21 09/01/23 08/12/23 loratadine 10 mg tablet 10 mg PO HS 12/16/21 09/01/23 08/11/23 atorvastatin 80 mg tablet 80 mg PO HS 09/02/22 09/01/23 08/11/23 empagliflozin 25 mg tablet 25 mg PO DAILY 09/02/22 09/01/23 08/12/23 (Jardiance) isosorbide dinitrate 30 mg tablet 30 mg PO TID #90 tabs 09/04/22 09/01/23 08/12/23 12:00 coQ10 (ubiquinol) 200 mg capsule 200 mg PO DAILY 08/12/23 09/01/23 08/12/23 hydralazine 100 mg tablet 100 mg PO TID 08/12/23 09/01/23 08/12/23 12:00 insulin degludec 100 unit/mL (3 30 unit subcut QAM 08/12/23 09/01/23 08/12/23 mL) subcutaneous pen (Tresiba FlexTouch U-100 insulin) [id number] 5 mg-zeaxanth 1 cap PO QID 08/12/23 09/01/23 08/12/23 12:00 1 mg-bilberry 7.5 mg-herbal capsule ([employer] Formula) amlodipine 5 mg tablet (Norvasc) 5 mg PO DAILY #30 tabs 08/21/23 09/01/23 Unknown labetalol 200 mg tablet 200 mg PO BID #60 tabs 08/21/23 09/01/23 Unknown Active Medications Generic Name Dose Route Start Last Admin Trade Name Shawnq PRN Reason Stop Dose Admin Acetaminophen 1,000 mg 09/01/23 15:30 09/06/23 09:09 Acetaminophen 500 Mg Tab PO 10/01/23 15:29 1,000 mg BID LUCAS Administration Amlodipine Besylate 10 mg 09/03/23 09:00 09/06/23 08:59 Amlodipine Besylate 5 Mg Tab PO 10/03/23 08:59 10 mg DAILY LUCAS Administration Aspirin 81 mg 09/01/23 15:45 09/06/23 08:59 Aspirin 81 Mg Ectab PO 10/01/23 15:44 81 mg QAM LUCAS Administration Atorvastatin Calcium 80 mg 09/01/23 21:00 09/05/23 20:57 Atorvastatin 40 Mg Tab PO 10/01/23 20:59 80 mg HS LUCAS Administration Carvedilol 37.5 mg 09/04/23 17:00 09/06/23 08:59 Carvedilol 25 Mg Tab PO 10/04/23 16:59 37.5 mg BIDM LUCAS Administration Dextrose 25 - 50 ml 09/01/23 18:13 09/02/23 06:48 Dextrose 50% 50 Ml Syringe IV 10/01/23 18:12 50 ml UD PRN Administration Hypoglycemia Protocol Protocol Furosemide 40 mg 09/04/23 10:45 09/06/23 09:01 Furosemide 40 Mg Tab PO 10/04/23 10:44 40 mg QAM LUCAS Administration Heparin Sodium (Porcine) 5,000 units 09/01/23 15:45 09/06/23 06:07 Heparin Sod 5,000 Unit/0.5 Ml Vial SQ 10/01/23 15:44 5,000 units Q8 LUCAS Administration Hydralazine HCl 5 mg 09/01/23 12:16 09/04/23 05:19 Hydralazine Hcl 20 Mg/Ml Vial IV 10/01/23 12:15 5 mg Q6H PRN Administration systolic blood pressure =>185 Hydralazine HCl 100 mg 09/01/23 15:45 09/06/23 08:58 Hydralazine Tab 50 Mg Tab PO 10/01/23 15:44 100 mg TID LUCAS Administration Insulin Aspart 0 units 09/01/23 21:00 09/06/23 12:21 Insulin Aspart Per Unit Charge SC 10/01/23 20:59 13 units ACHS LUCAS Administration Isosorbide Dinitrate 30 mg 09/01/23 16:00 09/06/23 12:23 Isosorbide Dinitrate 20 Mg Tab PO 10/01/23 15:59 30 mg TID@0700,1200,1700 LUCAS Administration Loratadine 10 mg 09/01/23 21:00 09/05/23 20:58 Loratadine 10 Mg Tab PO 10/01/23 20:59 10 mg HS LUCAS Administration Magnesium Chloride 64 mg 09/05/23 09:00 09/06/23 09:02 Magnesium Chloride W/Calcium 64mg Delayed Rel Tab PO 10/05/23 08:59 64 mg DAILY LUCAS Administration Multivitamins/Minerals 1 tab 09/02/23 09:00 09/06/23 09:01 Cerovite Adv Formula Tab PO 10/02/23 08:59 1 tab DAILY LUCAS Administration Sertraline HCl 50 mg 09/01/23 15:45 09/06/23 09:02 Sertraline Hcl 50 Mg Tablet PO 10/01/23 15:44 50 mg QAM LUCAS Administration
--- NOTE | 2023-09-06 19:34 | Nephrology Progress Note ---
Date of Service September 06, 2023 Assessment & Plan (1) JOSE (acute kidney injury): Plan: slight rise in creatinine compared to her baseline in setting of solitary kidney. Creatinine has been stable; So does qualify as acute kidney injury on background CKD. JOSE is hemodynamic related in the setting of congestive heart failure and hypertensive urgency. 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 (2) CKD (chronic kidney disease): Plan: does have underlying CKD related with advanced age hypertension. Recent renal function blood test has been all over the place. However as long as her cardiac status remained stable she should not have major problem with her kidney function (3) Acute heart failure with preserved ejection fraction: Plan: resolved now; recommend/ agree w/ 40 mg po lasix at least MWF if not daily. In fact think she will need 60 mg on some days. Presenting symptoms and her chest x-ray c/w acute pulmonary edema with under lying diastolic heart failure. Patient had been extremely hesitant about using Lasix and very worried about how it affects the kidney function > but willing to do so given need for diuretics in BP control Admission and Anticipated Discharge Date Admission Date: September 01, 2023 Subjective Seen on evening rounds. Sitting on the side of the bed with no distress. Wearing oxygen now after being found to have nocturnal hypoxia. No nausea vomiting. No worsening shortness of breath. No worsening edema. FR liberalized today Review of Systems Review of Systems: All systems reviewed & are unremarkable except as noted in Subjective Physical Exam Constitutional: well developed, well nourished, + obese, + frail appearing and cooperative; no acute distress Eyes: EOM intact bilaterally ENMT: Ears: no external ear abnormality Nose: no external nose abnormality Mouth: + dry oral mucous membranes Neck: no nuchal rigidity Respiratory: normal respiratory effort Auscultation: + diminished lung sounds Cardiovascular: Rate/Rhythm: regular rate and regular rhythm Extremities: + edema (trace BLE) Gastrointestinal (Abdomen): Inspection/Auscultation: normal bowel sounds Percussion/Palpation: abdomen soft; abdomen nontender Musculoskeletal: Extremities: strength 5/5 throughout Skin: no rashes, warm and dry Neurologic: gonzalez, fluent speech, no tremor Results & Data Vital Signs (Past 12 Hours) Vital Signs Temp Pulse Resp BP Pulse Ox O2 Del Method O2 Flow Rate 09/06/23 15:39 36.7 C 72 18 156/69 H 94 Nasal Cannula 2 09/06/23 11:40 36.5 C 67 16 137/65 95 Room Air 09/06/23 08:00 Nasal Cannula 1 09/06/23 07:51 36.6 C 76 18 177/74 H 94 Nasal Cannula 2
[2023-09-06] MEDS: LANTUS PER UNIT CHARGE SQ SCH (20:42)
--- NOTE | 2023-09-07 12:01 | Discharge Summary ---
Discharge Summary Date of Service September 07, 2023 Notes For Next Care Provider Medication Changes From Visit Discontinue Labetalol Started Coreg 37.5 BID Increased Amlodipine 10mg daily Restarted Lasix 40mg M,W, Oxygen at bedtime 2L NC Admission HPI Per Admitting Provider Ms. Urrutia is an 88 year old woman with past medical history remarkable for chronic diastolic heart failure (EF 70%, TTE 2021), PVD, hypertension, hyperlipidemia, DM 2 insulin requiring, CKD 4(baseline creatinine 1.7),MGUS, familial hypocalciuric hypercalcemia, carotid disease and renal artery stenosis, mood disorder presented to [facility] ED due to feeling more fatigued, dyspnea, and pedal edema. Patient states since discharge she initially felt "great" but noted declined just 48 hours later, marked by fatigue and feeling "zombie like." In the last 3- 4 days, she noted leg swelling--which she reports has been sometime since she last had swelling in her extremities. She last took her medications the evening of 08/31. Her pressures since discharge have sustained mostly in 160-170s Patient was admitted 08/11 for hypertension. Metoprolol transitioned to Labetalol. Verapamil to amlodipine. Hydralazine to 100mg TID. Lasix held. ACEi discontinued 2/2 progressive CKD. Patient denies headache. Endorses 1 week chest pain, SOB, fluid retention. Patient compliant with home medications, did not take this morning given timing and presentation to ED. In the ED, vitals were notable for BP up to 217, HR of 80s, and O2 sat of low 80s on RA, transitioned to NC 2L Imaging revealed pulmonary edema. EKG LBBB [chronic] PVCs ED interventions: IV hydralazine, labetalol, lasix, nitro Consultants: Nephrology consulted upon eval Patient to be admitted to PCU/tele for further evaluation and management of HTN emergency with signs of HFpEF. Admission Exam Per Admitting Provider GENERAL APPEARANCE: AxOx4, generally well-appearing female no acute distress. HEENT: NC, AT. MMM. EOMI, clear conjunctiva, oropharynx clear. NECK: Supple without lymphadenopathy. No stiffness or restricted ROM. HEART: Normal rate and regular rhythm, normal S1/S1, no m/r/g LUNGS:crackles bilateral bases ABDOMEN: Soft, nontender, nondistended with good bowel sounds heard. BACK: No CVAT, no obvious deformity. EXTREMITIES: Without cyanosis, +2+ edema above ankles NEUROLOGICAL: Grossly nonfocal. Alert and oriented, moving all 4 extremities. CN not formally tested but appear grossly intact Skin: Warm and dry without any rash. Principal Dx & Hospital Course #1 = Principal Diagnosis (1) Hypertensive emergency: (2) Acute heart failure with preserved ejection fraction: (3) Elevated troponin I level: Plan Ms. Urrutia is an 88 year old woman with past medical history remarkable for chr onic heart failure with preserved EF (EF 60%, TTE 2023), PVD, hypertension, hyperlipidemia, DM 2 insulin requiring, CKD 4(baseline creatinine 1.7),MGUS, familial hypocalciuric hypercalcemia, carotid disease and renal artery stenosis, mood disorder admitted for HTN emergency and acute HFpEF. Patient doing better with IV dosing and resumption of PO regimen. Plan to discontinue labetolol in favor for coreg. patient wishes to discontinue at this time. Cardiology notes reviewed: ccontinue coreg, increase to 37.5mg BID Nephrology consult for IV diuersis recommendations--transitioned to PO lasix 20mg daily. Patient with slow improvements in pressure to prevent drastic fluctuations and maintain strong renal perfusion given history of liable blood pressure. Patient off of oxygen after passing 2 step, just requiring nocturnal oxygen at this time. #Hypertensive Emergency *resolved #Acute Heart failure with persevered EF *improving #Mild Trop elevation ECHO 08/14/2023, EF 60-65%, G1DD, no PHTN Home regimen: Hydralazine 100mg TID, Isordil 30mg TID, recently started on Labetalol 200mg BID Last admission verapamil discontinued in favor of amlodipine, ANANT discontinued, lasix held Resume home regimen: Hydralazine, isordil, labetolol, amlodipine -s/p IV lasix 40mg in ED, labetalol 10mg IV, hydralazine 10mg IV Declined liu catheter placement -Encourage IOs Daily weights Discontinued labetalol in favor for coreg -Patient wishes to discontinue labetolol -Continue Coreg-Continue 37.5 mg BID -Continue amlodipine 10mg daily -allow for pressures in 160s at this time -Consult nephrology for diuresis guidance -Hold lasix 40mg for now--plan for MWF on discharge #Nocturnal Hypoxemia #Daytime fatigue given nocturnal hypertension and question of nocturnal hypoxemia, plan for overnight pulse oximetry test Qualifies for home oxygen 2 step: no oxygen with rest/exertion -Recommended OP sleep study #NSVT #Chronic LBBB Asymptomatic, < 30seconds -Continue BB as above -Cardiology consult, continue current coreg dosing #CKD IV #Renal artery stenosis. Left 50% origin stenosis & atrophic right kidney, on 2022 renal duplex Avoid nephrotoxic agents, including ANANT/ARB Nephrology consult to discuss ongoing diuresis, awaiting recommendations Close Op follow up #Asymptomatic 50-69% SLIME stenosis, stable velocities on most recent duplex #Asymptomatic < 50% LICA stenosis Followed with vascular surgery for R ICA stenosis Continue home ASA and statin #DMII Tresiba 30U daily, Jardiance, Tradjenta, repaglinide -SSI 16 U BID, correction factor -Resume glargine , intake better #Depression Continue Sertraline 55 mintues spent explaining medications and follow up with patient Patient denied further questions Discharge Exam Constitutional WD/WN, vitals as above Respiratory normal respiratory effort, lungs clear to auscultation Cardiovascular RRR, no murmur, no edema Gastrointestinal (Abdomen) normal bowel sounds, soft, nontender, no hepatosplenomegaly Updated Medication List Medication Instructions Recorded Confirmed Type acetaminophen 500 mg tablet 1,000 mg PO BID 10/31/21 09/01/23 History aspirin 81 mg tablet,delayed 81 mg PO QAM 10/31/21 09/01/23 History release repaglinide 2 mg tablet 2 mg PO AC 10/31/21 09/01/23 History sertraline 50 mg tablet 25 mg (1/2 x 50 mg) PO QAM #30 tabs 11/08/21 09/01/23 Rx linagliptin 5 mg tablet (Tradjenta) 5 mg PO DAILY 12/16/21 09/01/23 History loratadine 10 mg tablet 10 mg PO HS 12/16/21 09/01/23 History atorvastatin 80 mg tablet 80 mg PO HS 09/02/22 09/01/23 History empagliflozin 25 mg tablet 25 mg PO DAILY 09/02/22 09/01/23 History (Jardiance) isosorbide dinitrate 30 mg tablet 30 mg PO TID #90 tabs 09/04/22 09/01/23 Rx coQ10 (ubiquinol) 200 mg capsule 200 mg PO DAILY 08/12/23 09/01/23 History hydralazine 100 mg tablet 100 mg PO TID 08/12/23 09/01/23 History insulin degludec 100 unit/mL (3 30 unit subcut QAM 08/12/23 09/01/23 History mL) subcutaneous pen (Tresiba FlexTouch U-100 insulin) [id number]-oaw-xrhgay 5 mg-zeaxanth 1 cap PO QID 08/12/23 09/01/23 History 1 mg-bilberry 7.5 mg-herbal capsule ([employer] Formula) amlodipine 5 mg tablet (Norvasc) 10 mg (2 x 5 mg) PO DAILY #60 tabs 09/07/23 Rx carvedilol 25 mg tablet 37.5 mg (1.5 x 25 mg) PO BIDM #90 09/07/23 Rx tabs furosemide 40 mg tablet 40 mg PO 3XWK #30 tabs 09/07/23 Rx magnesium chloride 64 mg 64 mg PO DAILY #30 tabs 09/07/23 Rx (magnesium chloride) tablet,delayed release (Mag 64) Hospital Stay Data Consultations 09/01/23 10:22 ED Decision to Admit Stat 09/01/23 11:51 Consult Nephrology Routine 09/01/23 18:28 Consult Cardiology Routine Pending Results Patient Have Any Pending Studies at Discharge: No Discharge Instructions Given to Patient (Per Discharging Provider) You were admitted for heart failure exacerbation and uncontrolled high blood pressure. You blood pressure regimen was adjusted with a more liberal goal for pressure to allow for good renal (kidney) perfusion -Please discontinue Labetalol -You will start Coreg (carvedilol) 37.5mg two times a day (1 1/2 tablets two times daily) -You will increase your amlodipine from 5mg to 10mg daily (2 tablets) -Continue your Hydralazine and Imdur as previously prescribed. -You will start Lasix (furosemide) 40mg three times a week (Thursday, Thursday, Fridays) -It is encouraged you follow a 1.8 to 2 liter fluid restriction -You will start a daily magnesium supplement It was also noted that you require oxygen overnight, called nocturnal hypoxemia. This can be due to multiple reasons (sleep apnea, fluid issues, etc). You will need 2liters of Oxygen at night time. You were noted to not require oxygen while walking or at rest. Follow up with Nephrology and Cardiology will be established to monitor your blood pressure and your kidney function. Home Health Attestation I certify that this patient is under my care and that I, or a physicians office administrative assistant working with me, had a face to-face encounter that meets the home health [id number] encounter requirements with this patient. The encounter with the patient was in whole, or in part, for the following medical condition, which is the primary reason for home health care (list medical condition): CHF- hypertensive emergency I certify that, based on my findings, the following services are medically necessary home health services: My clinical findings support the need for the above services because: Skilled Nsg Assessment Further, I certify that my clinical findings support that this patient is homebound (i.e. absences from home require considerable and taxing effort and are for medical reasons or orthodoxy services or infrequently or of short duration when for other reasons) because: Supportive Aid - Walker Transportation Assistance/Unable to Leave Home Unassisted Certification for Home Health Services: Based on the above findings, I certify that this patient is confined to the home and needs intermittent fpc care, physical therapy and/or speech th erapy or continues to need occupational therapy. The patient is under my care, and I have initiated the establishment of the plan of care. This patient will be followed by a physician who will periodically review the plan of care. Total Time Total Time Spent Total Time Spent (In Minutes): 60
== END 2023-09-07 14:58 | disposition home or self-care (01) | DRG 304 ==
LOC: ED 08:56 → EDINP 11:01 → 2S 15:29 → 4W 09-02 05:30

== ENCOUNTER 2023-10-30 11:13 | Inpatient (IN) ==
[2023-10-30 12:02] LABS: Basophils # (auto) 0.04 K/uL (0.00-0.20); Basophils % (auto) 0.5 %; Eosinophils # (auto) 0.05 K/uL (0.00-0.50); Eosinophils % (auto) 0.6 %; Hematocrit (blood only) 25.1 % (37.0-47.0); Hemoglobin 7.9 g/dl (12.0-16.0); Immature Granulocytes # (auto) 0.02 K/uL (0.01-0.20); Immature Granulocytes % (auto) 0.3 %; Lymphocytes # (auto) 1.33 K/uL (1.20-3.40); Lymphocytes % (auto) 17.1 %; Mean Corpuscular Hgb Conc 31.5 g/dL (32.0-36.0); Mean Corpuscular Volume 98.4 fL (80.0-100.0); Mean Platelet Volume 9.2 fL (9.4-12.4); Monocytes # (auto) 0.54 K/uL (0.11-0.59); Monocytes % (auto) 6.9 %; Neutrophils % (auto) 74.6 %; Platelet Count 267 K/uL (130-400); RDW Coefficient of Variation 14.4 % (11.5-14.5); RDW Standard Deviation 51.1 fL (36.4-46.3); Red Blood Count 2.55 M/uL (4.20-5.40); White Blood Count 7.78 K/ul (4.8-10.8)
--- NOTE | 2023-10-30 12:08 | Emergency Department Note ---
History of Present Illness General Chief complaint: Shortness of Breath/Dyspnea Stated complaint: FLUID RETENTION, SOB W/ EXHURSTION Time Seen by Provider: 10/30/23 11:44 Source: patient, RN notes reviewed and old records reviewed (I have reviewed notes from EMS from today. Also a recent discharge summary on 09/07/23 for CHF) Mode of arrival: EMS Limitations: no limitations History of Present Illness This patient is a an 88-year-old female who comes in with concern for CHF. She was admitted to the hospital from September 01 through September 05 was diagnosed with CHF she has been on oxygen 2 L at night but has been needing it during the day she had increasing lower extremity edema she estimates has gained about 1/4 pound a day recently. She saw Dr. Schroeder in follow-up for hospital visit on October 18 and he told her to use oxygen all the time if she needed it. She says she got a phone call yesterday from the office that they had read her x-ray and told her she was in CHF and had fluid and was told to come to the ER. She says she feels fine at rest with her oxygen and runs 94 to 96% on her pulse ox but she says when she gets up and exerts herself she drops to the mid 80s. She is on Lasix 40 mg every other day and had been effective until recently. Her treatment has been complicated due to the fact that she has 1 functioning kidney and at baseline creatinine about 1.7. She is followed by Dr. Paul from a renal standpoint. She denies any syncope or fall no abdominal pain no blood or melena in her stool. No urinary symptoms no fever or cough. She denies any chest pain when she exerts herself and gets short of breath she does feel tight in her back but this has been chronic when she had the CHF and is not new. She is on no blood thinners. She is a diabetic but manages her blood sugar well she says Home Medications Medication Instructions Recorded Confirmed Type acetaminophen 500 mg tablet 1,000 mg PO BID 10/31/21 10/30/23 History aspirin 81 mg tablet,delayed 81 mg PO QAM 10/31/21 10/30/23 History release repaglinide 2 mg tablet 2 mg PO AC 10/31/21 10/30/23 History sertraline 50 mg tablet 25 mg (1/2 x 50 mg) PO QAM #30 tabs 11/08/21 10/30/23 Rx linagliptin 5 mg tablet (Tradjenta) 5 mg PO DAILY 12/16/21 10/30/23 History loratadine 10 mg tablet 10 mg PO HS 12/16/21 10/30/23 History atorvastatin 80 mg tablet 80 mg PO HS 09/02/22 10/30/23 History empagliflozin 25 mg tablet 25 mg PO DAILY 09/02/22 10/30/23 History (Jardiance) isosorbide dinitrate 30 mg tablet 30 mg PO TID #90 tabs 09/04/22 10/30/23 Rx coQ10 (ubiquinol) 200 mg capsule 200 mg PO DAILY 08/12/23 10/30/23 History insulin degludec 100 unit/mL (3 30 unit subcut QAM 08/12/23 10/30/23 History mL) subcutaneous pen (Tresiba FlexTouch U-100 insulin) [id number] 5 mg-zeaxanth 1 cap PO QID 08/12/23 10/30/23 History 1 mg-bilberry 7.5 mg-herbal capsule ([employer] Formula) amlodipine 5 mg tablet (Norvasc) 10 mg (2 x 5 mg) PO DAILY #60 tabs 09/07/23 10/30/23 Rx carvedilol 25 mg tablet 37.5 mg (1.5 x 25 mg) PO BIDM #90 09/07/23 10/30/23 Rx tabs magnesium chloride 64 mg 64 mg PO DAILY #30 tabs 09/07/23 10/30/23 Rx (magnesium chloride) tablet,delayed release (Mag 64) furosemide 40 mg tablet 40 mg PO .EVERY OTHER DAY 10/30/23 10/30/23 History potassium chloride 20 mEq 20 meq PO QAM 10/30/23 10/30/23 History tablet,extended release(part/cryst) Allergies Allergy/AdvReac Type Severity Reaction Status Date / Time latex Allergy Severe DIFFICULTY Verified 08/12/23 21:08 BREATHING, TONGUE SWELLS Penicillins Allergy Severe DIFFICULTY Verified 08/12/23 21:08 BREATHING, TONGUE SWELLS Sulfa (Sulfonamide Allergy Severe DIFFICULTY Verified 08/12/23 21:08 Antibiotics) BREATHING, TONGUE SWELLS Past Med/Surg History Medical History (Updated 10/30/23 @ 18:29 by Daniel Lindsay MD) Diabetes mellitus with kidney complication, without long-term current use of insulin CKD (chronic kidney disease) stage 3, GFR 30-59 ml/min Anxiety Tingling Headache Hypertensive urgency DM2 (diabetes mellitus, type 2) H/O: HTN (hypertension) Surgical History Hx of cataract surgery Social History Smoking Status: Never smoker Second Hand Exposure: Yes; Do You Dip or Chew Tobacco: No; Hx Alcohol Use: Yes Alcohol type: wine Hx Substance Use: No Preferred Language: Divehi Communication Ability: Effective [employer] Center Officer Required: No Beliefs That Will Affect Care: None marital status: / Current Living Situation: Alone Feels Safe at Home: Yes Assistive Devices: Walker Immunizations: Social historyshe does live independently although does have some home visiting nurses. She does not smoke she drinks occasionally. Dr. Bauman is her primary care physician Review of Systems A total of 10 systems reviewed and were otherwise negative Physical Exam Vital Signs Vital Signs - 24 hr 10/30/23 11:16 10/30/23 11:16 10/30/23 11:16 Temperature 36.6 C Temperature Source Temporal Artery Scan Pulse Rate 65 Pulse Rate [Apical] Respiratory Rate 16 Respiratory Effort / Characteristics Non-Labored Respiratory Depth Normal Blood Pressure 171/62 H Blood Pressure [Right Arm] Blood Pressure Mean 98 Blood Pressure Mean [Right Arm] Pulse Oximetry 98 98 Oxygen Delivery Method Nasal Cannula Nasal Cannula Nasal Cannula Oxygen Flow Rate 2 2 2 Sepsis Recent Fever Within 48 Hours No Sepsis New/Unexplained Change in Mental Status No Sepsis Action Taken by Nursing No Action Required 10/30/23 12:45 10/30/23 12:55 Temperature Temperature Source Pulse Rate 59 L Pulse Rate [Apical] 65 Respiratory Rate 20 Respiratory Effort / Characteristics Respiratory Depth Blood Pressure Blood Pressure [Right Arm] 117/87 Blood Pressure Mean Blood Pressure Mean [Right Arm] 97 Pulse Oximetry 100 Oxygen Delivery Method Room Air Oxygen Flow Rate Sepsis Recent Fever Within 48 Hours Sepsis New/Unexplained Change in Mental Status Sepsis Action Taken by Nursing General: Well developed well nourished older female who is wearing supplemental oxygen and sitting in a wheelchair but in no acute distress, breathing comfortably on room air. Normal speech HEENT: Normal cephalic atraumatic. Pupils are equal round and reactive to light. Extraocular movements are intact. Oropharynx is pink with moist mucous membranes. No swelling of the mouth lips or tongue. Neck: Supple with a midline trachea. No meningeal signs or stiffness, no JVD or bruits. No Stridor. Chest: Clear to auscultation bilaterally. No wheezes or rhonchi. No increased work of breathing. Heart: Regular rate and rhythm without murmurs or gallops. Abdomen: Soft nontender, nondistended without rebound guarding or rigidity. Extremities: No cyanosis clubbing. She does have 1+ pitting edema bilaterally in the lower extremities. no calf tenderness or assymetry Spine/Back. Non tender to palpation. No CVA tenderness Skin: Good turgor without rashes. Neurologic exam: Cranial nerves two through 12 are intact. Motor and sensation are intact and symmetrical throughout. Course Administered Medications Carvedilol (Carvedilol 25 Mg Tab) 37.5 mg PO BIDM [facility] Stop: 11/29/23 16:59 Last Admin: 10/30/23 18:04 Dose: 37.5 mg Documented By: BART Isosorbide Dinitrate (Isosorbide Dinitrate 20 Mg Tab) 30 mg PO TID@0700,1200,1700 [facility] Stop: 11/29/23 16:59 Last Admin: 10/30/23 18:03 Dose: 30 mg Documented By: BART Discontinued Medications Furosemide (Furosemide 40 Mg/4 Ml Vial) 40 mg IV ONE ONE Stop: 10/30/23 14:31 Last Admin: 10/30/23 14:41 Dose: 40 mg Documented By: NRB Medical Decision Making Differential Diagnosis CHF, acute coronary syndrome, arrhythmia, electrolyte or metabolic abnormality, kidney disease, anemia, infection Medical Records Attestation: I reviewed the patient's medical records. Home Medications Current Medication List: was personally reviewed by me Laboratory Data Attestation: I reviewed the patient's lab results. 10/30/23 11:35 10/30/23 11:35 Lab Results 10/30/23 10/30/23 Range/Units 11:35 12:39 WBC 7.78 (4.8-10.8) K/ul RBC 2.55 L (4.20-5.40) M/uL Hgb 7.9 L (12.0-16.0) g/dl Hct 25.1 L (37.0-47.0) % MCV 98.4 (80.0-100.0) fL MCH 31.0 (25.0-34.0) pg MCHC 31.5 L (32.0-36.0) g/dL RDW Std Deviation 51.1 H (36.4-46.3) fL RDW Coeff of Rojelio 14.4 (11.5-14.5) % Plt Count 267 (130-400) K/uL MPV 9.2 L (9.4-12.4) fL Immature Gran % (Auto) 0.3 % Neut % (Auto) 74.6 % Lymph % (Auto) 17.1 % Bonner % (Auto) 6.9 % Eos % (Auto) 0.6 % Baso % (Auto) 0.5 % Neut # (Auto) 5.80 (1.40-6.50) K/uL Lymph # (Auto) 1.33 (1.20-3.40) K/uL Bonner # (Auto) 0.54 (0.11-0.59) K/uL Eos # (Auto) 0.05 (0.00-0.50) K/uL Baso # (Auto) 0.04 (0.00-0.20) K/uL Immature Gran # (Auto) 0.02 (0.01-0.20) K/uL Polychromasia 1+ PT 11.4 (9.0-12.0) Seconds INR 1.0 (0.9-1.1) APTT 35 H (21-31) Seconds PTT Ratio 1.2 Sodium 138 (136-145) mmol/L Potassium 3.7 (3.5-5.1) mmol/L Chloride 102 (98-107) mmol/L Carbon Dioxide 27 (21-32) mmol/L Anion Gap 9 (3-11) BUN 19 (6-23) mg/dl Creatinine 1.45 H (0.6-1.2) mg/dl Est Cr Clr Drug Dosing Not Reportable Est GFR ( Amer) 36.9 ml/min Est GFR (Non-Af Amer) 31.8 ml/min BUN/Creatinine Ratio 13.1 (10-20) Glucose 153 H (70-99(Fasting)) mg/dl Calcium 9.4 (8.6-10.3) mg/dl Total Bilirubin 0.5 (0.2-1.0) mg/dl AST 14 (13-39) U/L ALT 8 (7-52) U/L Alkaline Phosphatase 34 (34-104) U/L Troponin I High Sens 19.5 H (0-14) pg/ml B-Natriuretic Peptide 414 H (0-100) pg/ml Total Protein 7.6 (6.0-8.3) gm/dl Albumin 3.9 (3.4-5.0) gm/dl Globulin 3.7 (2.5-4.0) gm/dl Albumin/Globulin Ratio 1.1 (0.9-2) Imaging Data Attestation: I personally reviewed and interpreted this imaging study as follows: My Impression: Chest x-raycardiomegaly with some interstitial pulmonary edema Radiologist's Impression: Chest X-Ray 10/30/23 11:21 XR chest 1V portable HISTORY: Chest pain, nonspecific COMPARISON: Chest 09/01/2023. FINDINGS: No pneumothorax. Trace bilateral pleural effusions. The heart remains enlarged. Aortic calcifications again noted. There is diffuse interstitial/vascular thickening likely representing mild pulmonary edema. This has improved in the interval. No acute fractures. IMPRESSION: Cardiomegaly with mild interstitial pulmonary edema and trace bilateral pleural effusions. This has improved compared to the prior study. ACT 112: Negative or not required by law. Electronically signed by: Alber Capellan M.D. 10/30/2023 12:58 PM ECG Data Attestation: I personally reviewed and interpreted this ECG as follows: Indication: + SOB/dyspnea Rate (beats per minute): 65 Rhythm: + normal sinus ECG Intervals/blocks: + Left bundle branch block, + Normal QT and + Normal [place] ECG [place]: + Normal ECG ST segments: + Normal ST segments ECG Findings: no PACs or no PVCs Comparison ECG Date: from (09/05/23) Change: no significant change MDM Narrative This patient is an 88-year-old female who has a history of CHF is concerned that she is having more fluid she says cardiology office called her and told her to come to the ER. She is wearing oxygen more and is gaining weight and having lower extremity edema again this is complicated by the fact that she does have 1 functional kidney and a baseline creatinine of 1.7. I did see her out in triage to help expedite her care. She does have stable vital signs here while at rest but she is very symptomatic with exertion she tells me her initial EKG shows a baseline left bundle branch block but no acute change compared to old. Chest x- ray multiple blood testing was obtained. She was reassessed frequently. Her troponin was mildly elevated but she has no chest pain or EKG changes and this can be trended in the hospital. Her creatinine is 1.4 which compared to her baseline looks significantly better. She has no significant electrolyte or metabolic abnormalities. Her BNP was elevated consistent with CHF. Her chest x-ray suggest CHF as well. She has a delicate balance given her renal function. She was also noted to be anemic with a hemoglobin of 7.9, she reports no blood or black colors in her stool. I do think she needs to be admitted/observed for further treatment of her CHF and evaluation for her anemia as well. 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 upon my evaluation patient was noted to be in normal sinus rhythm rate of 60 Impression & Plan CHF (congestive heart failure), Bilateral lower extremity edema, CKD (chronic kidney disease), Anemia, Elevated troponin I level Discharge Plan Visit Data Chief Complaint: Shortness of Breath/Dyspnea Stated Complaint: FLUID RETENTION, SOB W/ EXHURSTION ED Provider: Daniel Lindsay Discharge Problem: CHF (congestive heart failure), Bilateral lower extremity edema, CKD (chronic kidney disease), Anemia, Elevated troponin I level Patient Disposition: Admitted As Inpatient Discharge Instructions Interventions: ED Discharge Assessment Last Done: 10/30/23 15:52 Discharge Problem: CHF (congestive heart failure) Qualifiers: Heart failure type: unspecified Heart failure chronicity: acute on chronic Q ualified Code(s): I50.9 - Heart failure, unspecified CKD (chronic kidney disease) Qualifiers: Chronic kidney disease stage: unspecified stage Qualified Code(s): N18.9 - Chronic kidney disease, unspecified Anemia Qualifiers: Anemia type: unspecified type Qualified Code(s): D64.9 - Anemia, unspecified
[2023-10-30 12:16] LABS: Partial Thromboplastin Ratio 1.2; Partial Thromboplastin Time 35 Seconds (21-31); Prothrombin Time 11.4 Seconds (9.0-12.0)
[2023-10-30 12:20] LABS: Alanine Aminotransferase 8 U/L (7-52); Albumin Globulin Ratio 1.1 (0.9-2); Albumin Level 3.9 gm/dl (3.4-5.0); Alkaline Phosphatase 34 U/L (34-104); Anion Gap 9 (3-11); Aspartate Aminotransferase 14 U/L (13-39); BUN Creatinine Ratio 13.1 (10-20); Bilirubin,Total 0.5 mg/dl (0.2-1.0); Blood Urea Nitrogen 19 mg/dl (6-23); Calcium 9.4 mg/dl (8.6-10.3); Carbon Dioxide 27 mmol/L (21-32); Chloride 102 mmol/L (98-107); Est GFR (African American) 36.9 ml/min; Est GFR (Non-African American) 31.8 ml/min; Globulin 3.7 gm/dl (2.5-4.0); Glucose 153 mg/dl (70-99(Fasting)); Potassium 3.7 mmol/L (3.5-5.1); Sodium 138 mmol/L (136-145); Total Protein 7.6 gm/dl (6.0-8.3)
[2023-10-30 12:27] LABS: Polychromasia 1+
[2023-10-30 12:28] LABS: Troponin I High Sensitivity 19.5 pg/ml (0-14)
--- NOTE | 2023-10-30 12:59 | XRay Report ---
XR chest 1V portable HISTORY: Chest pain, nonspecific COMPARISON: Chest 09/01/2023. FINDINGS: No pneumothorax. Trace bilateral pleural effusions. The heart remains enlarged. Aortic calc ifications again noted. There is diffuse interstitial/vascular thickening likely representing mild pu lmonary edema. This has improved in the interval. No acute fractures. IMPRESSION: Cardiomegaly with mild interstitial pulmonary edema and trace bilateral pleural effusions. This has i mproved compared to the prior study. ACT 112: Negative or not required by law. Electronically signed by: Alber Capellan M.D. 10/30/2023 12:58 PM
--- NOTE | 2023-10-30 13:11 | Electrocardiogram Report ---
Test Reason : Blood Pressure : / mmHG Vent. Rate : 065 BPM Atrial Rate : 065 BPM P-R Int : 198 ms QRS Dur : 140 ms QT Int : 460 ms P-R-T Axes : 000 -28 119 degrees QTc Int : 478 ms Normal sinus rhythm Left bundle branch block Abnormal ECG When compared with ECG of 05-SEP-2023 06:56, No significant change was found Confirmed by Juan Reese ([id number]) on 10/30/2023 1:10:46 PM Referred By: Confirmed By:Juan Reese
--- NOTE | 2023-10-30 13:52 | History & Physical Report ---
Date of Service October 30, 2023 Assessment & Plan (1) CHF (congestive heart failure): (2) LBBB (left bundle branch block): (3) Bilateral lower extremity edema: (4) Hypertension: Plan: - Admit to tele - Lasix 40 mg PO dosing every other day as outpatient and was sent into hospital per cardiology due to minimal improvement - place pur wick and give lasix 40 mg IV once now, assess outs and determine further diuresis - Consult cards - Last echo was 09/02/23 - showed EF of 60-65%, mild concentric LVH,-defer to cardiology if they would like limited echo/repeat - Strict I/Os, fluid restriction, trend daily weights, dry weight is 197- 193lbs, she is weighing herself daily and states that it is transmitted electronically to [employer] system but that data is not available for my review. Standing weights here. - BP stable at 117/87 and HR acceptable in mid 60s at bedside - Cont propranolol, isosorbide dinitrate, aspirin 81 mg daily, atorvastatin 80 mg (5) Anemia: Plan: - hgb on admission of 7.9, has been referred to hematology as outpatient with recent iron studies in the [email or web address] EMR link reviewed - Macrocytic anemia with high TIBC of 227, iron 46, Transferrin 20, folic acid 7.2, vit b 12 391 - Anemia as above noted to have recent 1 g drop, pt denies acute bleeding - Pt is not on iron supplementation (6) Diabetes mellitus, type II, insulin dependent: Plan: - Tresiba 30 U daily at home, there is note in pharmacy that it could be 33 U? Pt reports she is taking 30 U daily so will continue, can adjust if necessary. Holding, repaglinide and tradjenta. - ISS with accuchecks achs ordered - Trend A1c with am labs (7) IgG gammopathy: Plan: - Hematology is scheduled to see her within 2 weeks, follow as outpatient (8) CKD (chronic kidney disease): Plan: - Chronic, stable, baseline Cr 1.5-1.6, Cr currently 1.45 and BUN 19 on admission - Follows with Dr. Smiht as outpatient DVT ppx: teds, scds Lines: PIV x 1 FEN/GI: HH/DM diet with fluid restriction of 1500ml daily CODE: Full code - discussed with pt at bedside Dispo: From home, likely to remain in the hospital x 1-2 days A total of 77 minutes were spent with greater than 50% of that time face to face with the patient, personally reviewing all current laboratories, imaging studies, past medication reconciliation, outpatient chart review, and discussion with specialists to collaborate care for the patient with attending. Please see attending documentation for corrections and/or additions. Plan I have seen and examined the patient and have discussed the case with the provider above. I have reviewed the advanced practitioner's documentation, and I agree with, and take responsibility for that plan of care. 88-year-old female presented with acute on chronic heart failure exacerbation. She denies any chest pain and reports progressive SOB over the past two weeks. She received Lasix in the ER and has had no output yet but states she is already feeling improved. She is normally not on 24/7 oxygena supplementation until just the last couple of weeks. Exam reveals NAD, WNWD No increased respiratory effort, small crackles at left base, o/w good airflow throughout all lung shepard. S1/2 heard, sinus rhythm, no murmur, no wiley edema on bilateral lower extremities. Abd: NTND Neuromsk: no gross focal deficits. Labs/Imaging/Meds reviewed 1. Acute on chronic heart failure: Cardiology on board to help with diuretic dosing and medication management. She is very ambulatory and independent and declines a potty chair or liu catheter. Continue coreg, jardiance, atorvastatin. Cont oxygen supplementation. Consider 2 step prior to discharge. DO Javier History of Present Illness Chief Complaint: Shortness of breath, edema, weight gain Primary Care Provider: Dalila Bauman MD This is an 88-year-old female with PMHx of chronic hypertension, history of hypertensive urgency, diastolic CHF, right carotid artery stenosis, CKD stage III, DM type II, HLD, IgG kappa clonal gammopathy, macrocytic anemia, who presents to the hospital with increased weight gain, edema in lower extremities and progressive shortness of breath over the past 2 weeks. She was recently seen by her automatic head sawyer as outpatient on 10/14/2023. She has been taking Lasix 40 mg p.o. every other day for lower extremity edema and weight gain. Her dry weight is somewhere between 193 and 197 however she is not quite sure. Reports that she has a scale which transmits her daily weights electronically to [facility] system. I do not have access to those records currently. Last week she took an additional Lasix tablet with minimal results. She has previously been on spironolactone but due to hyperkalemia and hyponatremia she was taken off this medication. She does follow with Dr. Colbert with nephrology as an outpatient as well. In addition she has recently been referred to see hematology for persistent anemia with history of her IgG gammopathy, that appointment was supposed to happen on 10/28 however did not go. Patient states that she feels generally well overall but is requiring oxygen whenever she does exertional things such as walking around her house as well as at bedtime, wears 2 L. She does not require oxygen at rest. Denies any cough, chest pain at rest or on exertion, fever, chills or sick contacts. She notes her appetite has remained the same. She denies any increase in salt intake or fluids. Allergies Allergy/AdvReac Type Severity Reaction Status Date / Time latex Allergy Severe DIFFICULTY Verified 08/12/23 21:08 BREATHING, TONGUE SWELLS Penicillins Allergy Severe DIFFICULTY Verified 08/12/23 21:08 BREATHING, TONGUE SWELLS Sulfa (Sulfonamide Allergy Severe DIFFICULTY Verified 08/12/23 21:08 Antibiotics) BREATHING, TONGUE SWELLS Home Medications Medication Instructions Recorded Confirmed Type acetaminophen 500 mg tablet 1,000 mg PO BID 10/31/21 10/30/23 History aspirin 81 mg tablet,delayed 81 mg PO QAM 10/31/21 10/30/23 History release repaglinide 2 mg tablet 2 mg PO AC 10/31/21 10/30/23 History sertraline 50 mg tablet 25 mg (1/2 x 50 mg) PO QAM #30 tabs 11/08/21 10/30/23 Rx linagliptin 5 mg tablet (Tradjenta) 5 mg PO DAILY 12/16/21 10/30/23 History loratadine 10 mg tablet 10 mg PO HS 12/16/21 10/30/23 History atorvastatin 80 mg tablet 80 mg PO HS 09/02/22 10/30/23 History empagliflozin 25 mg tablet 25 mg PO DAILY 09/02/22 10/30/23 History (Jardiance) isosorbide dinitrate 30 mg tablet 30 mg PO TID #90 tabs 09/04/22 10/30/23 Rx coQ10 (ubiquinol) 200 mg capsule 200 mg PO DAILY 08/12/23 10/30/23 History insulin degludec 100 unit/mL (3 30 unit subcut QAM 08/12/23 10/30/23 History mL) subcutaneous pen (Tresiba FlexTouch U-100 insulin) [id number] 5 mg-zeaxanth 1 cap PO QID 08/12/23 10/30/23 History 1 mg-bilberry 7.5 mg-herbal capsule ([employer] Formula) amlodipine 5 mg tablet (Norvasc) 10 mg (2 x 5 mg) PO DAILY #60 tabs 09/07/23 10/30/23 Rx carvedilol 25 mg tablet 37.5 mg (1.5 x 25 mg) PO BIDM #90 09/07/23 10/30/23 Rx tabs magnesium chloride 64 mg 64 mg PO DAILY #30 tabs 09/07/23 10/30/23 Rx (magnesium chloride) tablet,delayed release (Mag 64) furosemide 40 mg tablet 40 mg PO .EVERY OTHER DAY 10/30/23 10/30/23 History potassium chloride 20 mEq 20 meq PO QAM 10/30/23 10/30/23 History tablet,extended release(part/cryst) Past Med/Surg History Medical History (Updated 10/30/23 @ 18:29 by Daniel Lindsay MD) Diabetes mellitus with kidney complication, without long-term current use of insulin CKD (chronic kidney disease) stage 3, GFR 30-59 ml/min Anxiety Tingling Headache Hypertensive urgency DM2 (diabetes mellitus, type 2) H/O: HTN (hypertension) Surgical History Hx of cataract surgery Social History Smoking Status: Never smoker Second Hand Exposure: Yes; Do You Dip or Chew Tobacco: No; Hx Alcohol Use: Yes Alcohol type: wine Hx Substance Use: No Preferred Language: Beninese Communication Ability: Effective Investigations Consultant Required: No Beliefs That Will Affect Care: None marital status: / Current Living Situation: Alone Feels Safe at Home: Yes Assistive Devices: Walker Review of Systems Review of Systems: Constitutional: No fever, chills, sweats, + chronic fatigue, no generalized weakness Eyes: No diplopia, no changes in vision ENT: No sore throat, tinnitus, or trouble swallowing Respiratory: As per HPI, + shortness of breath on exertion, wears 2L with exertional activities and nighttime, no cough or sputum Cardiovascular: No chest pain, palpitations, or flutter Abdomen: No pain, No constipation, No diarrhea, No nausea, No vomiting Musculoskeletal: No calf pain, No joint pain, + swelling as per HPI in bilateral lower extremities Genitourinary : No dysuria or urinary frequency, No hematuria Neurologic: No numbness/tingling, no difficulty with ambulation, no sensory or motor deficits Psychiatric: No depression or anxiety symptoms Endocrine: No fatigue, + weight increase as per HPI Integumentary: No itch, No rash Physical Exam Physical Exam: General: awake, alert, no apparent distress, obese white female Head: Normocephalic, atraumatic ENT: PERRL, EOMI, no pharyngeal exudate, mucous membranes moist Chest: Clear to auscultation, on 2 LPM NC, O2 sats 99%, no adventitious breath sounds Cardiac: Regular rate and rhythm, + systolic murmur, no JVD, normal peripheral pulses, 1+ pitting edema in BLE up to knees good capillary refill Abdominal: NABS x 4 quadrants, soft, nondistended, nontender to palpation, no rebound or guarding Extremities: Normal inspection, 1+ pitting peripheral edema, no erythema, calfs nontender to palpation Psych: Normal mood and affect Neuro: AAO x 3, strength intact bilaterally and rated 5/5, no motor deficits, speech is clear, no peripheral sensory deficits Results & Data Results & Data Vital Signs (Past 12 Hours) Vital Signs Temp Pulse Pulse Resp BP BP Pulse Ox 10/30/23 12:55 59 L 10/30/23 12:45 65 20 117/87 100 10/30/23 11:16 98 10/30/23 11:16 10/30/23 11:16 36.6 C 65 16 171/62 H 98 O2 Del Method O2 Flow Rate 10/30/23 12:55 10/30/23 12:45 Room Air 10/30/23 11:16 Nasal Cannula 2 10/30/23 11:16 Nasal Cannula 2 10/30/23 11:16 Nasal Cannula 2 Laboratory Results 10/30/23 11:35 WBC 7.78 RBC 2.55 L Hgb 7.9 L Hct 25.1 L MCV 98.4 MCH 31.0 MCHC 31.5 L RDW Std Deviation 51.1 H RDW Coeff of Rojelio 14.4 Plt Count 267 MPV 9.2 L Immature Gran % (Auto) 0.3 Neut % (Auto) 74.6 Lymph % (Auto) 17.1 [place] % (Auto) 6.9 Eos % (Auto) 0.6 Baso % (Auto) 0.5 Neut # (Auto) 5.80 Lymph # (Auto) 1.33 [place] # (Auto) 0.54 Eos # (Auto) 0.05 Baso # (Auto) 0.04 Immature Gran # (Auto) 0.02 Polychromasia 1+ PT 11.4 INR 1.0 APTT 35 H PTT Ratio 1.2 Sodium 138 Potassium 3.7 Chloride 102 Carbon Dioxide 27 Anion Gap 9 BUN 19 Creatinine 1.45 H Est Cr Clr Drug Dosing Not Reportable Est GFR ( Amer) 36.9 Est GFR (Non-Af Amer) 31.8 BUN/Creatinine Ratio 13.1 Glucose 153 H Calcium 9.4 Total Bilirubin 0.5 AST 14 ALT 8 Alkaline Phosphatase 34 Troponin I High Sens 19.5 H Total Protein 7.6 Albumin 3.9 Globulin 3.7 Albumin/Globulin Ratio 1.1 Diagnostic Findings Chest X-Ray 10/30/23 11:21 XR chest 1V portable HISTORY: Chest pain, nonspecific COMPARISON: Chest 09/01/2023. FINDINGS: No pneumothorax. Trace bilateral pleural effusions. The heart remains enlarged. Aortic calcifications again noted. There is diffuse interstitial/vascular thickening likely representing mild pulmonary edema. This has improved in the interval. No acute fractures. IMPRESSION: Cardiomegaly with mild interstitial pulmonary edema and trace bilateral pleural effusions. This has improved compared to the prior study. ACT 112: Negative or not required by law. Electronically signed by: Alber Capellan M.D. 10/30/2023 12:58 PM ECG Additional Comments: Reviewed showing NSR, chronic LBBB, no signs of ST wave changes or signs of acute ischemia Code Status & VTE Plan Code Status Full code-discussed with the patient at bedside (4) Hypertension Hypertension type: unspecified Qualified Code(s): I10 - Essential (primary) hypertension
[2023-10-30] MEDS: FUROSEMIDE 40 MG/4 ML VIAL IV ONE (14:41)
--- NOTE | 2023-10-30 14:57 | Cardiology Consultation ---
Date of Consultation October 30, 2023 Assessment & Plan (1) IgG gammopathy: (2) Anemia: (3) Bilateral lower extremity edema: (4) Acute on chronic diastolic HF (heart failure): (5) LBBB (left bundle branch block): (6) SOB (shortness of breath): Plan 1. Acute on chronic diastolic HF 2. Hypoxia -requiring 2L supplemental 02 3. Macrocytic anemia 4. HTN 5. CKD stage III 6. T2 DM 7. Carotid artery disease 8. Renal artery stenosis 9. Chronic vertigo 10. LBBB 11. IgG kappa clonal gammopathy -Patient with hypoxia, shortness of breath in setting of progressive macrocytic anemia with a history of IgG gammopathy. Hgb trending down since 10/14/2023 8.9- >7.6 today -Appears mildly volume overloaded on examination. -Weight is fairly stable -CXR with slight improvement from prior. -CHF likely exacerbated by significant anemia -Recommend further work-up of progressive anemia per primary team -Continue gentle diuresis with IV lasix 40mg daily Case discussed with Dr. Lazaro. I spent a total of 42 minutes on the date of service in preparation, delivery, and documentation of the care provided to this patient, excluding any time spent in the performance of separately billed services. Yvonne Goodrich PA-C Department of Cardiology, [facility] This chart was completed in part utilizing Speech Voice Recognition Software. Grammatical errors, random word insertions, pronoun errors, and incomplete sentences are an occasional consequence of this system due to software limitations, ambient noise, and hardware issues. Any formal questions or concerns about the content, text, or information contained within the body of this dictation should be directly addressed to the provider for clarification. Supervising Physician Co-Signing Physician Notes Attending attestation: Case reviewed with the advanced practitioner. I have personally performed a history and physical examination on the patient. I have reviewed the advanced practitioner's documentation on the date of service referenced in note, and I agree with, and take responsibility for the plan of care. Pulse oximetry on room air went down down to 79% walking back from the bathroom. Hgb 7.9 g/dl. Continue furosemide. Given degree of shortness of breath and hypoxia would have low threshold to transfuse if Hgb remains less than 8 g/dl. I spent a total of 20 minutes coordinating, documenting, and providing care for this patient excluding time spent in the performance of separately billed services or time spent by another provider. Martinez Lazaro DO History of Present Illness Reason for Consultation: CHF, hypoxia Requesting Physician: Selina Hospitalist Attending Physician: Daniel Lindsay History of Present Illness Ramila Urrutia is an 88 year old female with PMHx HTN, HFpEF, CKD stage II, T2 DM, carotid artery disease, renal artery stenosis, chronic vertigo, anemia that presented to [facility] ED per recommendation of home health nurse today for hypoxia and shortness of breath. Patient was recent admitted to [facility] for HTN crisis, hyponatremia and acute on chronic renal failure. Blood pressure medications were adjusted and renal function stabilized. She was last evaluated in the cardiology clinic on 10/[address] Schroeder. At that time CXR was ordered as patient had BLE edema and decreased appetite. CXR with congestion and tiny b/l pleural effusions. Lasix 40mg increased to QOD dosing, previously maintained on lasix 40mg three times per week. Previously wearing 2L 02 at night only. Advised to wear 2L 02 continuously. Spironolactone was stopped due to hyperkalemia 09/01/2023. Patient reports she has been wearing 02 continuously as advised. Has noticed weight fluctuation and LE edema x 2 weeks. Continues to feel mildly short of breath particularly with activity. Notes with activity sp02 drops to 88%. She trialed ambulation on RA with sp02 dropping to 83%. Believes her legs are slightly more swollen then normal. Not painful or warm. Reports her appetite has been so-so for weeks, feels this is due to medication adjustments. Denies recent illness. Denies orthopnea/PND. Denies chest pain, palpitations. Denies abdominal distention. Denies prior history of lung disease. Never smoker, although she was exposed to second hand smoke until age 22. Reports compliance with low sodium diet and fluid restriction. Feels as though she has not been urinating as much recently. Denies urinary symptoms or changes in urine appearance. Patient was referred to hematology for history of IgG gammopathy and anemia with appointment scheduled 10/28, but patient did not attend. Allergies Allergy/AdvReac Type Severity Reaction Status Date / Time latex Allergy Severe DIFFICULTY Verified 08/12/23 21:08 BREATHING, TONGUE SWELLS Penicillins Allergy Severe DIFFICULTY Verified 08/12/23 21:08 BREATHING, TONGUE SWELLS Sulfa (Sulfonamide Allergy Severe DIFFICULTY Verified 08/12/23 21:08 Antibiotics) BREATHING, TONGUE SWELLS Home Medications Medication Instructions Recorded Confirmed Type acetaminophen 500 mg tablet 1,000 mg PO BID 10/31/21 10/30/23 History aspirin 81 mg tablet,delayed 81 mg PO QAM 10/31/21 10/30/23 History release repaglinide 2 mg tablet 2 mg PO AC 10/31/21 10/30/23 History sertraline 50 mg tablet 25 mg (1/2 x 50 mg) PO QAM #30 tabs 11/08/21 10/30/23 Rx linagliptin 5 mg tablet (Tradjenta) 5 mg PO DAILY 12/16/21 10/30/23 History loratadine 10 mg tablet 10 mg PO HS 12/16/21 10/30/23 History atorvastatin 80 mg tablet 80 mg PO HS 09/02/22 10/30/23 History empagliflozin 25 mg tablet 25 mg PO DAILY 09/02/22 10/30/23 History (Jardiance) isosorbide dinitrate 30 mg tablet 30 mg PO TID #90 tabs 09/04/22 10/30/23 Rx coQ10 (ubiquinol) 200 mg capsule 200 mg PO DAILY 08/12/23 10/30/23 History insulin degludec 100 unit/mL (3 30 unit subcut QAM 08/12/23 10/30/23 History mL) subcutaneous pen (Tresiba FlexTouch U-100 insulin) [id number] 5 mg-zeaxanth 1 cap PO QID 08/12/23 10/30/23 History 1 mg-bilberry 7.5 mg-herbal capsule ([facility] Formula) amlodipine 5 mg tablet (Norvasc) 10 mg (2 x 5 mg) PO DAILY #60 tabs 09/07/23 10/30/23 Rx carvedilol 25 mg tablet 37.5 mg (1.5 x 25 mg) PO BIDM #90 09/07/23 10/30/23 Rx tabs magnesium chloride 64 mg 64 mg PO DAILY #30 tabs 09/07/23 10/30/23 Rx (magnesium chloride) tablet,delayed release (Mag 64) furosemide 40 mg tablet 40 mg PO .EVERY OTHER DAY 10/30/23 10/30/23 History potassium chloride 20 mEq 20 meq PO QAM 10/30/23 10/30/23 History tablet,extended release(part/cryst) Patient History Medical History (Updated 10/30/23 @ 18:29 by Daniel Lindsay MD) Diabetes mellitus with kidney complication, without long-term current use of insulin CKD (chronic kidney disease) stage 3, GFR 30-59 ml/min Anxiety Tingling Headache Hypertensive urgency DM2 (diabetes mellitus, type 2) H/O: HTN (hypertension) Surgical History Hx of cataract surgery Social History Smoking Status: Never smoker Second Hand Exposure: Yes; Do You Dip or Chew Tobacco: No; Hx Alcohol Use: Yes Alcohol type: wine Hx Substance Use: No Preferred Language: Azeri Communication Ability: Effective Assembler Surgical Garment Required: No Beliefs That Will Affect Care: None marital status: / Current Living Situation: Alone Feels Safe at Home: Yes Assistive Devices: Walker Review of Systems Review of Systems: All systems reviewed & are unremarkable except as noted in HPI & below Respiratory: + dyspnea on exertion Cardiovascular: + edema Physical Exam Constitutional: WD/WN, vitals as above Eyes: PERRL, conjunctivae normal, anicteric sclerae Neck: trachea midline, no thyromegaly Respiratory: normal respiratory effort, lungs clear to auscultation Auscultation: no crackles, no rales, no rhonchi and no wheezes Cardiovascular: Rate/Rhythm: regular rate and regular rhythm Heart Sounds: normal S1, normal S2 and + murmur Vessels: no JVD Extremities: + edema +1 BLE edema extending below the knees Musculoskeletal: no cyanosis or clubbing, extremities motor strength 5/5 Skin: no rashes, warm and dry Neurologic: PERRL, EOMI, accommodation nl, no face palsy, no dysarthria Psychiatric: A+Ox3, euthymic affect Results & Data Vital Signs (Past 12 Hours) Vital Signs Temp Pulse Pulse Resp BP BP Pulse Ox 10/30/23 12:55 59 L 10/30/23 12:45 65 20 117/87 100 10/30/23 11:16 98 10/30/23 11:16 10/30/23 11:16 36.6 C 65 16 171/62 H 98 O2 Del Method O2 Flow Rate 10/30/23 12:55 10/30/23 12:45 Room Air 10/30/23 11:16 Nasal Cannula 2 10/30/23 11:16 Nasal Cannula 2 10/30/23 11:16 Nasal Cannula 2 Laboratory Results Cardiac Enzymes 10/30/23 10/30/23 Range/Units 11:35 12:39 AST 14 (13-39) U/L Troponin I High Sens 19.5 H (0-14) pg/ml B-Natriuretic Peptide 414 H (0-100) pg/ml Coagulation 10/30/23 10/30/23 Range/Units 11:35 12:39 PT 11.4 (9.0-12.0) Seconds APTT 35 H (21-31) Seconds B-Natriuretic Peptide 414 H (0-100) pg/ml CBC 10/30/23 Range/Units 11:35 WBC 7.78 (4.8-10.8) K/ul RBC 2.55 L (4.20-5.40) M/uL Hgb 7.9 L (12.0-16.0) g/dl Hct 25.1 L (37.0-47.0) % Plt Count 267 (130-400) K/uL Neut # (Auto) 5.80 (1.40-6.50) K/uL Lymph # (Auto) 1.33 (1.20-3.40) K/uL [place] # (Auto) 0.54 (0.11-0.59) K/uL Eos # (Auto) 0.05 (0.00-0.50) K/uL Baso # (Auto) 0.04 (0.00-0.20) K/uL Comprehensive Metabolic Panel 10/30/23 Range/Units 11:35 Sodium 138 (136-145) mmol/L Potassium 3.7 (3.5-5.1) mmol/L Chloride 102 (98-107) mmol/L Carbon Dioxide 27 (21-32) mmol/L BUN 19 (6-23) mg/dl Creatinine 1.45 H (0.6-1.2) mg/dl Glucose 153 H (70-99(Fasting)) mg/dl Calcium 9.4 (8.6-10.3) mg/dl AST 14 (13-39) U/L ALT 8 (7-52) U/L Alkaline Phosphatase 34 (34-104) U/L Total Protein 7.6 (6.0-8.3) gm/dl Albumin 3.9 (3.4-5.0) gm/dl Diagnostic Findings EKG 10/30/2023 NSR 65bpm LBBB ECHO 09/02/2023 RV cavity is normal. EF 60-65%. Mild concentric LVH. LV wall motion is normal Moderate mitral annular calcification
[2023-10-30] MEDS ORDERED: GLUCAGON FOR INJ 1 MG VIAL SQ PRN (15:51)
[2023-10-30] MEDS ORDERED: GLUCOSE 40% GEL 15 GM TUBE PO PRN (15:51)
[2023-10-30] MEDS ORDERED: GLUCOSE 10 TAB/TUBE PO PRN (15:51)
[2023-10-30] MEDS ORDERED: DEXTROSE 50% 50 ML SYRINGE IV PRN (15:51)
[2023-10-30] MEDS ORDERED: REPAGLINIDE 2 MG PO SCH (16:30)
[2023-10-30] MEDS: ISOSORBIDE DINITRATE 20 MG TAB PO SCH (18:03)
[2023-10-30] MEDS: carvediloL 25 MG TAB PO SCH (18:04)
[2023-10-30] MEDS: INSULIN ASPART PER UNIT CHARGE SC SCH (18:39)
[2023-10-30] MEDS: LORATADINE 10 MG TAB PO SCH (22:05)
[2023-10-30] MEDS: ACETAMINOPHEN 500 MG TAB PO SCH (22:05)
[2023-10-30] MEDS: ATORVASTATIN 40 MG TAB PO SCH (22:06)
[2023-10-30] MEDS: hydrALAZINE TAB 50 MG TAB PO SCH (22:59)
[2023-10-31 06:21] LABS: Hematocrit (blood only) 24.1 % (37.0-47.0); Hemoglobin 7.5 g/dl (12.0-16.0); Mean Corpuscular Hemoglobin 30.6 pg (25.0-34.0); Mean Corpuscular Hgb Conc 31.1 g/dL (32.0-36.0); Mean Corpuscular Volume 98.4 fL (80.0-100.0); Mean Platelet Volume 9.1 fL (9.4-12.4); Platelet Count 230 K/uL (130-400); RDW Coefficient of Variation 14.2 % (11.5-14.5); RDW Standard Deviation 50.8 fL (36.4-46.3); Red Blood Count 2.45 M/uL (4.20-5.40); White Blood Count 5.98 K/ul (4.8-10.8)
[2023-10-31 07:13] LABS: BUN Creatinine Ratio 12.2 (10-20); Calcium 8.8 mg/dl (8.6-10.3); Creatinine Clr Calc Pharmacy 25.1 ml/min; Est GFR (African American) 33.8 ml/min; Est GFR (Non-African American) 29.2 ml/min; Potassium 2.9 mmol/L (3.5-5.1)
--- NOTE | 2023-10-31 07:14 | Hospitalist Progress Note ---
Date of Service October 31, 2023 Assessment & Plan (1) CHF (congestive heart failure): (2) LBBB (left bundle branch block): (3) Bilateral lower extremity edema: (4) Hypertension: (5) Anemia: (6) Diabetes mellitus, type II, insulin dependent: (7) IgG gammopathy: (8) CKD (chronic kidney disease): Plan Ms. Urrutia is an 88 year old woman with past medical history remarkable for chronic heart failure with preserved EF (EF 60%, TTE 2023), PVD, hypertension, hyperlipidemia, DM 2 insulin requiring, CKD 4(baseline creatinine 1.7),MGUS/IgG Gammopathy, familial hypocalciuric hypercalcemia, carotid disease and renal artery stenosis, mood disorder admitted on 10/29 for acute heart failure with preserved EF. Patient follows Dr. Schroeder, who increased lasix dosing from MWF to every other day. Patient not feeling improved despite continuous oxygen use. Discussed case with Dr. Frye, heme/onc. Further anemia labs ordered and 1 UPRBC ordered. #Acute on chronic anemia, likely multifactorial iso CKD, IgG gammopathy Recent anemia labs as Op: Macrocytic anemia with low TIBC of 227, iron 46, Transferrin 20, folic acid 7.2, vit b 12 391 Referral recently placed regarding macrocytic anemia, renal insufficiency, IgG kappa clonal gammopathy to OP hematology SPEP on 10/13 revealed a monoclonal IgG kappa gammopathy This is not dissimilar to immunofixation results from 08/[address] Nunez in 05/2023 regarding this finding, however at that time anemia stable with hgb of 12. Add on reticulocyte count: notably elevated Discussed case over phone with Dr. Casey Frye -Order immunofixation -Repeat anemia labs, ferritin, iron, b12, folate, ldh, haptoglobin -Hair test -Transfuse 1 unit PRBC, goal >8 hgb #Acute Heart failure with preserved EF #Mild Trop elevation, appears to have chronic elevation ECHO 08/14/2023, EF 60-65%, G1DD, no PHTN BNP 414 10/29 *down from prior of 1221 in 08/2023 Home regimen: Hydralazine 100mg TID, Isordil 30mg TID, coreg 37.5 BID, amlodipine 10mg Prior admissions: verapamil discontinued in favor of amlodipine, ANANT discontinued, labetalol for coreg -s/p IV lasix Declined liu catheter placement -Encourage IOs Daily weights -Continue Coreg, amlodipine 10mg daily -allow for pressures in 160s at this time -Cardiology on consult, Lasix IV 40 daily at this time -Hold lasix 40mg for now--plan for MWF on discharge Continue furosemide, consider addition lasix with transfusion contingent on symptoms #Nocturnal Hypoxemia #Daytime fatigue given nocturnal hypertension and question of nocturnal hypoxemia, plan for overnight pulse oximetry test Qualifies for home oxygen at night 2L 2 step: no oxygen with rest/exertion -Recommended OP sleep study #NSVT #Chronic LBBB Asymptomatic, < 30seconds -Continue BB as above -Cardiology consult, continue current coreg dosing #CKD IV #Renal artery stenosis. Left 50% origin stenosis & atrophic right kidney, on 2022 renal duplex Avoid nephrotoxic agents, including ANANT/ARB Nephrology consult to discuss ongoing diuresis, awaiting recommendations Close Op follow up #Asymptomatic 50-69% SLIME stenosis, stable velocities on most recent duplex #Asymptomatic < 50% LICA stenosis Followed with vascular surgery for R ICA stenosis Continue home ASA and statin #Hypoglycemic episode #DMII A1C 5.0% , may be falsely low 2/2 anemia Tresiba 30U daily, Jardiance, Tradjenta, repaglinide -SSI, hold glargine 2/2 hypoglycemic episode #Depression Continue Sertraline DVT ppx: teds, scds Lines: PIV x 1 FEN/GI: HH/DM diet with fluid restriction of 2000ml daily CODE: Full code - discussed with pt at bedside Admission and Anticipated Discharge Date Admission Date: October 30, 2023 Subjective Patient evaluated at bedside Reports feeling tired and exhausted Episode of hypoglycemia overnight and reports feeling exhausted from recovering from the low sugar level Discussed question of transfusion--patient initially apprehensive but agreeable for a unit Physical Exam Constitutional: anxious, upset--able to calm and redirect, tired appearing Respiratory: clear to auscultation, no wheezing/crackles Cardiovascular: RRR Musculoskeletal: trace lower extremity edema Results & Data Results & Data Vital Signs (Past 12 Hours) Vital Signs Temp Pulse Pulse Resp BP Pulse Ox O2 Del Method 10/31/23 03:56 36.8 C 68 16 160/72 H 96 Nasal Cannula 10/30/23 23:09 72 10/30/23 22:01 36.6 C 77 16 173/67 H 96 Nasal Cannula 10/30/23 22:00 Nasal Cannula 10/30/23 19:21 37.1 C 80 16 173/74 H 97 Nasal Cannula O2 Flow Rate 10/31/23 03:56 2 10/30/23 23:09 10/30/23 22:01 2 10/30/23 22:00 2 10/30/23 19:21 2 Laboratory Results Short CBC 10/31/23 Range/Units 05:53 WBC 5.98 (4.8-10.8) K/ul Hgb 7.5 L (12.0-16.0) g/dl Hct 24.1 L (37.0-47.0) % Plt Count 230 (130-400) K/uL BMP 10/31/23 05:53 Sodium 140 Potassium 2.9 L D Chloride 105 Carbon Dioxide 30 BUN 19 Creatinine 1.56 H Glucose 48 L* Calcium 8.8 Medications Administered Home Medications Medication Instructions Recorded Confirmed Last Taken acetaminophen 500 mg tablet 1,000 mg PO BID 10/31/21 10/30/23 08/12/23 08:00 aspirin 81 mg tablet,delayed 81 mg PO QAM 10/31/21 10/30/23 08/12/23 release repaglinide 2 mg tablet 2 mg PO AC 10/31/21 10/30/23 08/12/23 12:00 sertraline 50 mg tablet 25 mg (1/2 x 50 mg) PO QAM #30 tabs 11/08/21 10/30/23 08/12/23 linagliptin 5 mg tablet (Tradjenta) 5 mg PO DAILY 12/16/21 10/30/23 08/12/23 loratadine 10 mg tablet 10 mg PO HS 12/16/21 10/30/23 08/11/23 atorvastatin 80 mg tablet 80 mg PO HS 09/02/22 10/30/23 08/11/23 empagliflozin 25 mg tablet 25 mg PO DAILY 09/02/22 10/30/23 08/12/23 (Jardiance) isosorbide dinitrate 30 mg tablet 30 mg PO TID #90 tabs 09/04/22 10/30/23 08/12/23 12:00 coQ10 (ubiquinol) 200 mg capsule 200 mg PO DAILY 08/12/23 10/30/23 08/12/23 insulin degludec 100 unit/mL (3 30 unit subcut QAM 08/12/23 10/30/23 08/12/23 mL) subcutaneous pen (Tresiba FlexTouch U-100 insulin) hlovwgim-syf-blasia 5 mg-zeaxanth 1 cap PO QID 08/12/23 10/30/23 08/12/23 12:00 1 mg-bilberry 7.5 mg-herbal capsule (ReTargeter Health Formula) amlodipine 5 mg tablet (Norvasc) 10 mg (2 x 5 mg) PO DAILY #60 tabs 09/07/23 10/30/23 Unknown carvedilol 25 mg tablet 37.5 mg (1.5 x 25 mg) PO BIDM #90 09/07/23 10/30/23 Unknown tabs magnesium chloride 64 mg 64 mg PO DAILY #30 tabs 09/07/23 10/30/23 Unknown (magnesium chloride) tablet,delayed release (Mag 64) furosemide 40 mg tablet 40 mg PO .EVERY OTHER DAY 10/30/23 10/30/23 10/29/23 hydralazine 100 mg tablet 100 mg PO TID 10/30/23 10/30/23 Unknown potassium chloride 20 mEq 20 meq PO QAM 10/30/23 10/30/23 Unknown tablet,extended release(part/cryst) Active Medications Generic Name Dose Route Start Last Admin Trade Name Freq PRN Reason Stop Dose Admin Acetaminophen 1,000 mg 10/30/23 21:00 10/31/23 09:10 Acetaminophen 500 Mg Tab PO 11/29/23 20:59 1,000 mg BID LUCAS Administration Amlodipine Besylate 10 mg 10/31/23 09:00 10/31/23 09:12 Amlodipine Besylate 5 Mg Tab PO 11/30/23 08:59 10 mg DAILY LUCAS Administration Aspirin 81 mg 10/31/23 09:00 10/31/23 09:12 Aspirin 81 Mg Ectab PO 11/30/23 08:59 81 mg QAM LUCAS Administration Atorvastatin Calcium 80 mg 10/30/23 21:00 10/30/23 22:06 Atorvastatin 40 Mg Tab PO 11/29/23 20:59 80 mg HS LUCAS Administration Carvedilol 37.5 mg 10/30/23 17:00 10/31/23 09:11 Carvedilol 25 Mg Tab PO 11/29/23 16:59 37.5 mg BIDM LUCAS Administration Empagliflozin 25 mg 10/31/23 09:00 10/31/23 09:11 Empagliflozin 25 Mg Tab PO 11/30/23 08:59 25 mg DAILY LUCAS Administration Furosemide 40 mg 10/31/23 09:00 10/31/23 09:12 Furosemide 40 Mg/4 Ml Vial IV 11/30/23 08:59 40 mg QAM LUCAS Administration Hydralazine HCl 100 mg 10/30/23 22:45 10/31/23 13:03 Hydralazine Tab 50 Mg Tab PO 11/29/23 22:44 100 mg TID LUCAS Administration Potassium Chloride 10 meq in 100 mls @ 100 mls/hr 10/31/23 10:45 10/31/23 11:57 K Ceasar / Wtr IV 10/31/23 14:44 Infused Q1H LUCAS Infusion Insulin Aspart 0 units 10/30/23 16:30 10/31/23 13:06 Insulin Aspart Per Unit Charge SC 11/29/23 16:29 3 units ACHS LUCAS Administration Isosorbide Dinitrate 30 mg 10/30/23 17:00 10/31/23 13:03 Isosorbide Dinitrate 20 Mg Tab PO 11/29/23 16:59 30 mg TID@0700,1200,1700 LUCAS Administration Loratadine 10 mg 10/30/23 21:00 10/30/23 22:05 Loratadine 10 Mg Tab PO 11/29/23 20:59 10 mg HS LUCAS Administration Lorazepam 0.5 mg 10/31/23 12:49 10/31/23 13:03 Lorazepam 0.5 Mg Tab PO 11/30/23 12:48 0.5 mg Q4H PRN Administration Anxiety Magnesium Chloride 64 mg 10/31/23 09:00 10/31/23 09:11 Magnesium Chloride W/Calcium 64mg Delayed Rel Tab PO 11/30/23 08:59 64 mg DAILY LUCAS Administration Miscellaneous 15 - 30 gm 10/30/23 15:51 10/31/23 07:21 Carbohydrates For Hypoglycemia PO 11/29/23 15:50 30 gm UD PRN Administration Hypoglycemia Protocol Multivitamins/Minerals 1 tab 10/31/23 09:00 10/31/23 09:12 Cerovite Adv Formula Tab PO 11/30/23 08:59 1 tab DAILY LUCAS Administration Potassium Chloride 20 meq 10/31/23 09:00 10/31/23 09:11 Potassium Chloride Crtab 20 Meq Tabcr PO 11/30/23 08:59 20 meq QAM LUCAS Administration Sertraline HCl 25 mg 10/31/23 09:00 10/31/23 09:11 Sertraline Hcl 50 Mg Tablet PO 11/30/23 08:59 25 mg QAM LUCAS Administration (1) CHF (congestive heart failure) Heart failure chronicity: acute on chronic Heart failure type: unspecified Qualified Code(s): I50.9 - Heart failure, unspecified (4) Hypertension Hypertension type: unspecified Qualified Code(s): I10 - Essential (primary) hypertension (8) CKD (chronic kidney disease) Chronic kidney disease stage: unspecified stage Qualified Code(s): N18.9 - Chronic kidney disease, unspecified
[2023-10-31 07:18] LABS: Estimated Average Glucose 97 mg/dl
[2023-10-31] MEDS: CARBOHYDRATES FOR HYPOGLYCEMIA PO PRN (07:21)
[2023-10-31 07:59] LABS: Immature Retic Fraction 22.3 % (2.3-15.9); Reticulated Hemoglobin 32.8 pg (28.2-36.6); Reticulocyte % 3.53 % (0.50-2.00)
[2023-10-31] MEDS ORDERED: LANTUS PER UNIT CHARGE SQ SCH (09:00)
[2023-10-31] MEDS ORDERED: NON-FORMULARY MEDICATION (Coq10 (Ubiquinol) 200 mg Capsule) PO SCH (09:00)
[2023-10-31] MEDS: SERTRALINE HCL 50 MG TABLET PO SCH (09:11)
[2023-10-31] MEDS: MAGNESIUM CHLORIDE W/CALCIUM 64MG DELAYED REL TAB PO SCH (09:11)
[2023-10-31] MEDS: POTASSIUM CHLORIDE CRTAB 20 MEQ TABCR PO SCH (09:11)
[2023-10-31] MEDS: EMPAGLIFLOZIN 25 MG TAB PO SCH (09:11)
[2023-10-31] MEDS: ASPIRIN 81 MG ECTAB PO SCH (09:12)
[2023-10-31] MEDS: CEROVITE ADV FORMULA TAB PO SCH (09:12)
[2023-10-31] MEDS: FUROSEMIDE 40 MG/4 ML VIAL IV SCH (09:12)
[2023-10-31] MEDS: amLODIPine BESYLATE 5 MG TAB PO SCH (09:12)
[2023-10-31] MEDS: POTASSIUM CHLORIDE / WTR 10 MEQ/100 ML PLCT IV SCH (10:57)
[2023-10-31] MEDS: POTASSIUM CHLORIDE CRTAB 20 MEQ TABCR PO STA (10:57)
[2023-10-31] MEDS ORDERED: SODIUM CHLORIDE 0.9% 250 ML IV PRN (11:26)
--- NOTE | 2023-10-31 12:00 | Electrocardiogram Report ---
Test Reason : Blood Pressure : / mmHG Vent. Rate : 066 BPM Atrial Rate : 066 BPM P-R Int : 204 ms QRS Dur : 144 ms QT Int : 476 ms P-R-T Axes : 000 006 113 degrees QTc Int : 499 ms Poor data quality, interpretation may be adversely affected Normal sinus rhythm Left bundle branch block Abnormal ECG When compared with ECG of 30-OCT-2023 11:31, No significant change was found Confirmed by Juan Reese ([id number]) on 10/31/2023 11:59:46 AM Referred By: Dalila Bauman Confirmed By:Juan Reese
[2023-10-31] MEDS: LORazepam 0.5 MG TAB PO PRN (13:03)
[2023-10-31 14:09] LABS: Folate (Folic Acid),Ser orPlas 7.54 ng/ml (>5.38)
--- OUTSIDE RECORDS SUMMARY | 2023-10-31 14:27 | External Medical Summary | Summary of Care ---
Author Name Unknown Organization [facility] Address [address] [place] [address] Phone [phone] Care Team Providers Care Human Resources Compensation Analyst Name Role Phone Dalila Bauman MD Primary Care Provider [phone] Reason for Referral * Evaluate & Treat - Unlimited Visits (Within 10 days (routine)) - Authorized Specialty Diagnoses / Procedures Referred By Sandra chris Referred To Contact Hematology/Oncology / Hematology Oncology Diagnoses Macrocytic anemia Renal insufficiency IgG gammopathy Wiliam Schroeder MD [address] [place] [address] Referral ID Status Reason Start Date Expiration Date Visits Requested Visits Authorized [id number] Authorized Specialty Services Required 10/23/[phone] Question Answer Referral Priority Within 10 days (routine) Where should this appointment be scheduled? [facility] Reason for Referral Anemia Reason for Visit * Reason Onset Date Comments Test Results 10/22/2023 Encounter Details Date Type Department Care Team (Late st Contact Info) Description 10/22/2023 Telephone Cardiology, [facility] [address] [address] Wiliam Schroeder MD [address] [place] [address] Test Results Allergies Active Allergy Reactions Criticality Noted Date Comments Latex 01/09/2021 Penicillins 01/09/2021 Sulfa Antibiotics 01/09/2021 documented as of this encounter (statuses as of 10/26/2023) Medications Medication Sig Dispensed Refills Start Date [...] Tablets daily . [facility] Plus 0 Active Prodigy No Coding Blood Gluc In Vitro Strip (Glucose Blood)Indications:T ype 2 diabetes mellitus with hemoglobin A1c goal of less than 8.0% (HCC) Use to test blood glucose 3 times daily as directed. 300 Strip 3 09/02/2022 Active Prevagen 10 MG Oral Capsule (Apoaequorin) Take by mouth every evening. 0 Active Isosorbide Dinitrate 30 MG Oral Tablet [...] 10/13/2022 Active CoQ10 200 MG Oral Capsule 0 Active Repaglinide 2 MG Oral Tablet (Prandin)Indication s:Type 2 diabetes mellitus with hemoglobin A1c goal of less than 8.0% (HCC) take 1 tablet by mouth three times a day BEFORE MEALS Strength: 2 mg 270 Tablet 3 2023 Active Atorvastatin Calcium 80 MG Oral Tablet (Lipitor)Indication s:Renal artery stenosis (HCC),Carotid stenosis, asymptomatic, right,Dyslipidemia, goal LDL below 70 take 1 tablet by mouth at bedtime INCREASE 11/13/2021 90 Tablet 2 04/13/2023 Active Melatonin ER 1 MG Oral Tablet [...] before bedtime. 270 Tablet 3 06/08/2023 Active Empagliflozin 25 MG Oral Tablet [...] DX: E11.9 300 Each 3 07/02/2023 Active Magnesium Chloride 64 MG Oral Tablet Take by mouth daily. 0 Active Sertraline HCl 50 MG Oral Tablet (Zoloft)Indications :Adjustment disorder with anxious mood Take 1 Tablet by mouth in the morning. Inc at DC 09/07/23. 0 09/16/2023 Active Tresiba FlexTouch 100 UNIT/ML Subcutaneous Solution Pen-injector (Insulin Degludec)Indication s:Type 2 diabetes mellitus with stage 3b chronic kidney disease, without long-term current use of insulin ([facility]),Type 2 diabetes mellitus with hemoglobin A1c goal of less than 8.0% ([facility]) Inject 30 Units under the skin in the morning. 0 09/16/2023 Active Carvedilol 25 MG Oral Tablet (Coreg) Take 1.5 Tablets by mouth 2 times a day with morning and evening meals. 270 Tablet 1 10/03/2023 Active Potassium Chloride Denise ER 20 MEQ Oral Tablet Extended ReleaseIndications: Diastolic CHF with preserved left ventricular function, NYHA class 2 ([facility]),Hypokalemia Take 1 Tablet by mouth in the morning. 90 Tablet 1 10/10/2023 Active Furosemide 40 MG Oral Tablet (Lasix) Take 1 Tablet by mouth every other day. And as directed for edema 60 Tablet 13 10/14/2023 Active amLODIPine Besylate 10 MG Oral Tablet (Norvasc) Take 1 Tablet by mouth in the morning. 90 Tablet 1 10/16/2023 Active Droplet Pen Bagdad 32G X 6 MM (NOVOFINE 32G PEN NEEDLE)Indications: Type 2 diabetes mellitus with hemoglobin A1c goal of less than 8.0% ([facility]) USE WITH LANTUS DAILY 100 Each 1 10/16/2023 Active documented as of this encounter (statuses as of 10/26/2023) Active Problems Problem Noted Date Diagnosed Date [...] asymptomatic, right 11/13/2021 FHH (familial hypocalciuric hypercalcemia) 05/11 /2022 History of 2019 novel coronavirus disease (COVID -19) 10/16/2021 S/P bilateral cataract extraction 10/16/2021 HTN, goal below 150/90 07/26/2021 Dyslipidemia, goal LDL below 70 07/26/2021 Adjustment disorder with anxious mood 07/26/2021 B12 deficiency 07/26/2021 Type 2 diabetes mellitus wit h hemoglobin A1c goal of less than 8.0% 07/02/2021 documented as of this encounter (statuses as of 10/26/2023) Resolved Problems Problem Noted Date Diagnosed Date Resolved Date Chronic kidney disease, stage 3b 03/17/2022 05/21/2023 Overview: Per CKD protocol Type 2 diabetes mellitus wit h stage 3b chronic kidney disease, without long-term current use of insulin 07/26/2021 03/20/2022 Overview: Per CKD protocol documented as of this encounter (statuses as of 10/26/2023) Immunizations Name Administration Dates Next Due COVID-19 mRNA, LNP-s, No Pre serve, 2-Dose Series (Moderna) 12/11/2020,11/13/2020 COVID-19, LNP-s, No Preserve , Michel-sucrose, Ages 12+ (ActualSun) 12/18/2021 COVID-19, mRNA, LNP-s, PF, B ooster, [...] encounter Miscellaneous Notes * Telephone Encounter - Santiago Dumont RN - 10/26/2023 2:55 PM EDT Patient returned call to the clinic. I reviewed the message with her from DR. Schroeder in regards of her lab work. She states she already sees a vacuum cooker operator here at [facility]. She has an up coming appointment with DR. Diaz on 11/10/2023. * Telephone Encounter - Erin Ram CMA - 10/26/2023 10:26 AM EDT Called patient. No answer. Left message asking patient to call back. * Telephone Encounter - Tonya Fitzgerald OSA - 10/22/2023 3:35 PM EDT Person calling: Ramila Relationship to patient: self Number to return call: [phone] Reason for call: test results Pharmacy: Provider Name: Dr. Schroeder * Telephone Encounter - Erin Mercado RN - 10/22/2023 3:26 PM EDT Called, left message for patient to return call. See result information below and advise/transfer upon return call. * Telephone Encounter - Erin Mercado RN - 10/22/2023 3:24 PM EDT ----- Message from Wiliam Schroeder MD sent at 10/20/2023 2:49 PM EDT ----- Iron studies and folic acid are normal Abnormal protein noted in the bloodstream. Would like hematology's assistance in managing anemia Please place referral for hematology Indications macrocytic anemia, renal insufficiency, IgG kappa clonal gammopathy . documented in this encounter Plan of Treatment Upcoming Encounters Date Type Department Care Team (Late st Contact Info) Description 10/29/2023 1:30 PM EDT Laboratory Laboratory [facility] [address] [place] [place] [address] [phone] Myrna Gonzalez [facility] [address] [place] [id number] 11/03/2023 2:00 PM EDT Office Visit General Internal Medicine [facility] [address] [place] [address] Dalila Bauman MD [address] [facility] [place] [address] 11/10/2023 2:30 PM EDT Office Visit Pharmacy, [facility] [address] [place] [place] [address] [address] Pharmacist1, [facility] [address] [place] [address] 11/10/2023 3:00 PM EDT Office Visit Hematology/Oncology [facility] [address] [place] [phone] Joshua Nunez MD [address] [place] [address] 01/05/2024 4:00 PM EDT [facility] [place] [address] Wiliam Schroeder MD [address] [place] [address] 02/04/2024 2:20 PM EDT Office Visit [facility] [address] [place] [phone] Kayleen Stephens, [address] [place] [address] Scheduled Referrals Name Type Priority Associated Diagnoses Orde r Schedule HEMATOLOGY/ONCOLOGY REFERRAL OP Referral Within 10 days (routine) Macrocytic anemia Renal insufficiency IgG gammopathy Ordered: 10/23/2023 Health Maintenance Due Date Last Done Comments Pneumococcal Vaccine: 65+ Years (1 of 2 - PCV) 02/18/1941 DTaP,Tdap,and Td Vaccines (1 - Tdap) 1954 Zoster Vaccines (1 of 2) 02/18/1984 Diabetic Foot Exam 10/16/2022 10/16/2021 COVID-19 Vaccine ( - season) 2023 12/18/2021, 07/11/2021, 12/11/2020, Additional history exists Albumin/Creatinine Ratio 09/01/2023 09/01/2022, 07/07 *BISPHONATE OR OTHER ACCEPTABLE MEDICATION NEEDED FOR OSTEOPOROSIS (REFER TO SMARTSET #1146) 09/19/2023 Nephrology Referral 02/20/2024 02/19/2023 HbA1c 03/02/2024 09/02/2023, 04/06, 12/19/2022, Additional history exists Influenza Vaccine (FLU shot) (Season Ended) 2024 DXA Scan 03/17/2024 03/17/2022, 03/17/2022 Diabetic Eye Exam 07/30/2024 07/30/2023, , 12/10/2022, Additional history exists Depression Screening 08/24/2024 08/24/2023 PTH 10/07/2024 10/08/2023, 09/03, 12/19/2022, Additional history exists Phosphate 10/07/2024 10/08/2023, 09/03, 12/19/2022, Additional history exists Hgb 10/13/2024 10/14/2023, 04/07, 12/19/2022, Additional history exists VITAMIN D LEVEL ONCE IN A LIFETIME-USE SMARTSET# [id number] Completed 09/16/2023, 12/19/2022, 03/25/2022, Additional history exists GARDASIL-HPV IMMUNIZATION SERIES Aged Out No longer eligible based on patient's age to complete this topic Hepatitis B Aged Out No longer eligi ble based on patient's age to complete this topic MENINGOCOCCAL (MENACTRA/MENVEO) Aged Out No longer eligible based on patient's age to complete this topic documented as of this encounter Medical Devices Implanted Type Area Sweater Operator Device Identifier Shelf Expiration Date Model / Serial / Lot Lens Intraoc 25.0 - [id number] - [id number] Implanted:Qty: 1 on 09/03/2021 by Deon Griffin MD at [facility] Left: Eye [employer] 10/02/2025 [id number] / [id number] / [id number] Lens Intraoc 26.0 - [id number] - [id number] Implanted:Qty: 1 on 09/17/2021 by Deon Griffin MD at [facility] Right: Eye [employer] 10/03/2025 [id number] / [id number] / [id number] documented as of this encounter Visit Diagnoses Diagnosis Macrocytic anemia- Primary Unspecified deficiency anemia Renal insufficiency Unspecified disorder of kidney and ureter IgG gammopathy Monoclonal paraproteinemia documented in this encounter Advance Directives Healthcare Agents on File Name Relationship Healthcare Agent Relationshi p Communication [facility] R epresentative (appointed verbally by patient or by statute hierarchy) Care Teams Human Resources Compensation Analyst Relationship Specialty Start Date End Date Dalila Bauman MD [address] [place] [address] PCP - General Internal Medicine 01/09/21 documented as of this encounter
--- OUTSIDE RECORDS SUMMARY | 2023-10-31 14:27 | External Medical Summary | Summary of Care ---
Author Name Unknown Organization [facility] Address [address] [place] [address] Phone [phone] Care Team Providers Care Federal Mediation Commissioner Name Role Phone Dalila Bauman MD Primary Care Provider [phone] Reason for Visit * Reason Comments eRx-Medication Refill Encounter Details Date Type Department Care Team (Late st Contact Info) Description 10/16/2023 Refill Pharmacy, [facility] [address] [facility] [place] [address] Dalila Bauman MD 200 [place] [address] Type 2 diabetes mellitus with hemoglobin A1c goal of less than 8.0% (HCC) Allergies Active Allergy Reactions Criticality Noted Date Comments Latex 01/09/2021 Penicillins 01/09/2021 Sulfa Antibiotics 01/09/2021 documented as of this encounter (statuses as of 10/16/2023) Medications Medication Sig Dispensed Refills Start Date [...] 05/04/2023 Active Tradjenta 5 MG Oral Tablet (linaGLIPtin)Dora [...] 05/26/2023 Active hydrALAZINE HCl 100 MG Oral TabletIndications :HTN, goal below 150/90,Type 2 diabetes mellitus with [...] 90 Tablet 3 06/08/2023 Active Prodigy Lancets 28GIndications:Ty pe 2 diabetes mellitus with hemoglobin A1c goal of less than 8.0% ([facility]) Use to test blood glucose 3 times daily. DX: E11.9 300 Each 3 07/02/2023 Active Magnesium Chloride 64 MG Oral Tablet Take by mouth daily. 0 Active Sertraline HCl 50 MG Oral Tablet (Zoloft)Indicatio ns:Adjustment disorder with anxious mood Take 1 Tablet by mouth in the morning. Inc at [place] 09/07/23. 0 09/16/2023 Active Tresiba FlexTouch 100 UNIT/ML Subcutaneous Solution Pen-injector (Insulin Degludec)Indicati ons:Type 2 diabetes mellitus with stage 3b chronic kidney disease, without long-term current use of insulin (HCC),Type 2 diabetes mellitus with hemoglobin A1c goal of less than 8.0% ([facility]) Inject 30 Units under the skin in the morning. 0 09/16/2023 Active Carvedilol 25 MG Oral Tablet (Coreg) Take 1.5 Tablets by mouth 2 times a day with morning and evening meals. 270 Tablet 1 10/03/2023 Active Potassium Chloride Denise ER 20 MEQ Oral Tablet Extended ReleaseIndication s:Diastolic CHF with preserved left ventricular function, NYHA class 2 ([facility]),Hypokalemia Take 1 Tablet by mouth in the morning. 90 Tablet 1 10/10/2023 Active Furosemide 40 MG Oral Tablet (Lasix) Take 1 Tablet by mouth every other day. And as directed for edema 60 Tablet 13 10/14/2023 Active Droplet Pen [place] 32G X 6 MM (NOVOFINE 32G PEN NEEDLE)Indication s:Type 2 diabetes mellitus with hemoglobin A1c goal of less than 8.0% (HCC) USE WITH LANTUS DAILY 100 Each 1 10/16/2023 Active Insulin Pen Needle 32G X 6 MMIndications:Typ e 2 diabetes mellitus with hemoglobin A1c goal of less than 8.0% (HCC) Use with Lantus once daily 100 Each 3 09/02/2022 10/16/19 24 Discontinued documented as of this encounter (statuses as of 10/16/2023) Active Problems Problem Noted Date Diagnosed Date [...] as of this encounter (statuses as of 10/16/2023) Resolved Problems Problem Noted Date Diagnosed Date Resolved Date Chronic kidney disease, stage 3b 03/17/2022 05/21/2023 Overview: Per CKD protocol Type 2 diabetes mellitus wit h stage 3b chronic kidney disease, without long-term current use of insulin 07/26/2021 03/20/2022 Overview: Per CKD protocol documented as of this encounter (statuses as of 10/16/2023) Immunizations Name Administration Dates Next Due COVID-19 [...] encounter Miscellaneous Notes * Telephone Encounter - Jaya Amado RP - 10/16/2023 3:33 PM EDT Signed Prescriptions: Disp Refills Droplet Pen [place] 32G X 6 MM (NOVOFINE 3*100 Ea*1 Sig: USE WITH LANTUS DAILYAuthorizing Provider: KADI MCCLAIN * Telephone Encounter - Kadi Mcclain MD - 10/16/2023 3:24 PM EDTSigned Prescriptions: Disp Refills Droplet Pen [place] 32G X 6 MM (NOVOFINE 3*100 Ea*1 Sig: USE WITH LANTUS DAILY Authorizing Provider: KADI MCCLAIN * Telephone Encounter - Bernie Carlos LPN - 10/16/2023 3:06 PM EDT Pending Prescriptions: Disp Refills Droplet Pen [place] 32G X 6 MM (NOVOFINE * Sig: USE WITH LANTUS DAILY Last Visit: 09/16/2023 (in office), 10/11/2021 (telemedicine) Next Visit: 11/10/2023 Last date the medication was ordered: 09/02/2022 Patient Active Problem List Diagnosis Code Type 2 diabetes mellitus with hemoglobin A1c goal of less than 8.0% ([facility]) E11.9 HTN, goal below 150/90 I10 Dyslipidemia, goal LDL below 70 E78.5 Adjustment disorder with anxious mood F43.22 B12 deficiency E53.8 History of 2019 novel coronavirus disease (COVID-19) Z86.16 S/P bilateral cataract extraction Z98.41, Z98.42 Renal artery stenosis ([facility]) I70.1 Carotid stenosis, asymptomatic, right 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 disease, with long-term current use of insulin([facility]) E11.22, N18.4, Z79.4 Senile osteoporosis M81.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.2 Hypertensive heart disease with chronic diastolic congestive heart failure ([facility]) I11.0, I50.32 Chronic kidney disease, stage 4 (severe) ([facility]) N18.4 Labs: Lab Results Component Value Date/Time CREATININE - [facility] 1.6 (H) 10/14/2023 03:55 PM CREATININE, RANDOM URINE - [facility] 62 10/08/2023 11:27 AM CREATININE-OUTSIDE LAB 1.25 (A) 10/31/2021 12:00 AM CREATININE-OUTSIDE LAB 1.90 (A) 10/31/2021 12:00 AM Lab Results Component Value Date/Time POTASSIUM - [facility] 3.8 10/14/2023 03:55 PM POTASSIUM-OUTSIDE LAB 4.1 10/31/2021 12:00 AM [...] Description 10/29/2023 1:30 PM EDT Laboratory Laboratory [facility] [place] [address] [facility] [place] [address] [place] [address] [place] [address] [address] [address] 11/03/2023 2:00 PM EDT Office Visit General Internal Medicine [facility] [place] [address] [facility] [place] [address] Dalila Bauman MD [address] [facility] [place] [address] 11/10/2023 2:30 PM EDT Office Visit Pharmacy, [facility] [place] [address] [facility] [place] [address] [address], [facility] 200 [facility] [place] [address] 11/10/2023 3:00 PM EDT Office Visit Hematology/Oncology [facility] [place] [address] [place] [address] [address] Joshua Nunez MD [address] [facility] [place] [address] 01/05/2024 4:00 PM EDT Office Visit Cardiology, [facility] [address] [place] [address] Wiliam Schroeder MD [address] [place] [address] 02/04/2024 2:20 PM EDT Office Visit [facility] [address] [place] [address] Kayleen Stephens, 132 [facility] [place] [address] Health Maintenance Due Date Last Done Comments Pneumococcal Vaccine: 65+ Years (1 of 2 - PCV) [birth year]18/1941 Hgb 02/18/1952 DTaP,Tdap,and Td Vaccines (1 - Tdap) 1953 [...] 10/07/2024 10/08/2023, 09/03, 12/19/2022, Additional history exists VITAMIN D LEVEL ONCE IN A LIFETIME-USE SMARTSET# [id number] Completed 09/16/2023, 12/19/2022, 03/25/2022, Additional history exists [...] this encounter Medical Devices Implanted Type Area Proposal Consultant Device Identifier Shelf Expiration Date Model / Serial / Lot Lens Intraoc 25.0 - [id number] - [id number] Implanted:Qty: 1 on 09/03/2021 by Deon Griffin MD at [facility] Left: Eye [employer]OM[employer] 10/02/2025 [id number] / [id number] / [id number] Lens Intraoc 26.0 - [id number] - [id number] Implanted:Qty: 1 on 09/17/2021 by Deon Griffin MD at OR [facility] Right: Eye [employer] LOMB 10/03/2025 [id number] / [id number] / [id number] documented as of this encounter Visit Diagnoses Diagnosis Type 2 diabetes mellitus with hemoglobin A1c goal of less than 8.0% ([facility]) documented in this encounter Advance Directives Healthcare Agents on File Name Relationship Healthcare Agent Relationshi p Communication [facility] Adult Child Health Care R epresentative (appointed verbally by patient or by statute hierarchy) Care Teams Federal Mediation Commissioner Relationship Specialty Start Date End Date Dalila Bauman MD [address] [facility] [place] [address] PCP - General Internal Medicine 01/09/21 documented as of this encounter
--- OUTSIDE RECORDS SUMMARY | 2023-10-31 14:27 | External Medical Summary | Summary of Care ---
Author Name Unknown Organization [facility] Address [address] [place] [address] Phone [phone] Care Team Providers Care Professor Of Economics Name Role Phone Dalila Bauman MD Primary Care Provider Reason for Referral * Evaluate & Treat - Unlimited Visits (Within 10 days (routine)) - Authorized Specialty Diagnoses / Procedures Referred By Sandra chris Referred To Contact Hematology/Oncology / Hematology Oncology Diagnoses Macrocytic anemia Renal insufficiency IgG gammopathy Wiliam Schroeder MD [address] [employer] [place] [address] Referral ID Status Reason Start Date Expiration Date Visits Requested Visits Authorized [id number] Authorized Specialty Services Required 10/23/2023 999 999 Question Answer Referral Priority Within 10 days (routine) Where should this appointment be scheduled? [facility] Reason for Referral Anemia Reason for Visit * Reason Onset Date Comments Test Results 10/22/2023 Encounter Details Date Type Department Care Team (Late st Contact Info) Description 10/22/2023 Telephone Cardiology, [facility] [address] [place] [address] Wiliam Schroeder MD [address] [place] [address] Test Results Allergies Active Allergy Reactions Criticality Noted Date Comments Latex 01/09/2021 Penicillins 01/09/2021 Sulfa Antibiotics 01/09/2021 documented as of this encounter (statuses as of 10/23/2023) Medications Medication Sig Dispensed Refills Start Date [...] disease, without long-term current use of insulin ([facility]),Type 2 diabetes mellitus with hemoglobin A1c goal of less than 8.0% ([facility]) Inject 30 Units under the skin in the morning. 0 09/16/2023 Active Carvedilol 25 MG Oral Tablet (Coreg) Take 1.5 Tablets by mouth 2 times a day with morning and evening meals. 270 Tablet 1 10/03/2023 Active Potassium Chloride Denise ER 20 MEQ Oral Tablet Extended ReleaseIndications: Diastolic CHF with preserved left ventricular function, NYHA class 2 ([facility]),Hypokalemia Take 1 Tablet by mouth in the morning. 90 Tablet 1 10/10/2023 Active Furosemide 40 MG Oral Tablet (Lasix) Take 1 Tablet by mouth every other day. And as directed for edema 60 Tablet 13 10/14/2023 Active amLODIPine Besylate 10 MG Oral Tablet (Norvasc) Take 1 Tablet by mouth in the morning. 90 Tablet 1 10/16/2023 Active Droplet Pen [place] 32G X 6 MM (NOVOFINE 32G PEN NEEDLE)Indications: Type 2 diabetes mellitus with hemoglobin A1c goal of less than 8.0% ([facility]) USE WITH LANTUS DAILY 100 Each 1 10/16/2023 Active documented as of this encounter (statuses as of 10/23/2023) Active Problems Problem Noted Date Diagnosed Date [...] as of this encounter (statuses as of 10/23/2023) Resolved Problems Problem Noted Date Diagnosed Date Resolved Date Chronic kidney disease, stage 3b 03/17/2022 05/21/2023 Overview: Per CKD protocol Type 2 diabetes mellitus wit h stage 3b chronic kidney disease, without long-term current use of insulin 07/26/2021 03/20/2022 Overview: Per CKD protocol documented as of this encounter (statuses as of 10/23/2023) Immunizations Name Administration Dates Next Due COVID-19 mRNA, LNP-s, No Pre serve, 2-Dose Series (Moderna) 12/11/2020,11/13/2020 COVID-19, LNP-s, No Preserve , Michel-sucrose, Ages 12+ (Lightbox) 12/18/2021 COVID-19, mRNA, LNP-s, PF, B ooster, [...] encounter Miscellaneous Notes * Telephone Encounter - Tonya Fitzgerald OSA - 10/22/2023 3:35 PM EDT Person calling: Ramila Relationship to patient: self Number to return call: [phone] Reason for call: test results Pharmacy: Provider [...] Description 10/29/2023 1:30 PM EDT Laboratory Laboratory [facility] Dalal [address] [place] [address] Myrna Gonzalez [address] [facility] [place] [address] 11/03/2023 2:00 PM EDT Office Visit General Internal Medicine [facility] 200 [facility] [place], [place] [address] Dalila Bauman MD 200 [facility] [place] [address] 11/10/2023 2:30 PM EDT Office Visit Pharmacy, [facility] [address] [facility] [place] [address] Pharmacist1, [facility] 200 [facility] [place] [address] 11/10/2023 3:00 PM EDT Office Visit Hematology/Oncology [facility] 200 [facility] [place] [phone] Joshua Nunez MD [address] [facility] [address] [place] [address] 01/05/2024 4:00 PM EDT Office Visit Cardiology, [facility] [address] [place] [address] Wiliam Schroeder MD [address] [place] [address] 02/04/2024 2:20 PM EDT Office Visit Sleep Disorders Ctr [facility] [address] [place] [phone] Kayleen Stephens DO [address] [place] [address] Scheduled Referrals Name Type Priority Associated Diagnoses [...] D LEVEL ONCE IN A LIFETIME-USE SMARTSET# [id number] Completed 09/16/2023, 12/19/2022, 03/25/2022, Additional history exists [...] this encounter Medical Devices Implanted Type Area Director Independent Device Identifier Shelf Expiration Date Model / Serial / Lot Lens Intraoc 25.0 - [id number] - [id number] Implanted:Qty: 1 on 09/03/2021 by Deon Griffin MD at OR [facility] Left: Eye [employer]OM[employer] 10/02/2025 [id number] / [id number] / [id number] Lens Intraoc 26.0 - [id number] - [id number] Implanted:Qty: 1 on 09/17/2021 by Deon Griffin MD at OR [facility] Right: Eye [employer]CH [employer] LOMB 10/03/2025 [id number] / [id number] / [id number] documented as of this encounter Visit Diagnoses Diagnosis Macrocytic anemia- Primary Unspecified deficiency anemia Renal insufficiency Unspecified disorder of kidney and ureter IgG gammopathy Monoclonal paraproteinemia documented in this encounter Advance Directives Healthcare Agents on File Name Relationship Healthcare Agent [facility] p Communication Nancy [facility] Adult Child Health Care R epresentative (appointed verbally by patient or by statute hierarchy) Care Teams Professor Of Economics Relationship Specialty Start Date End Date Dalila Bauman MD [address] [place] [address], [place] [address] PCP - General Internal Medicine 01/09/21 documented as of this encounter
--- OUTSIDE RECORDS SUMMARY | 2023-10-31 14:27 | External Medical Summary | Summary of Care ---
Author Name Unknown Organization [facility] Address [address] [facility] [place] [address] Phone [phone] Care Team Providers Care Automatic Fabric Cutter Name Role Phone Dalila Bauman MD Primary Care Provider [phone] Reason for Visit * Reason Onset Date Comments Test Results 10/27/2023 Encounter Details Date Type Department Care Team (Late st Contact Info) Description 10/27/2023 Telephone General Internal Medicine [facility] [place] [address] [facility] [place] [address] Virgil [facility]z MD [facility] [address] Test Results Allergies Active Allergy Reactions Criticality Noted Date Comments Latex 01/09/2021 Penicillins 01/09/2021 Sulfa Antibiotics 01/09/2021 documented as of this encounter (statuses as of 10/29/2023) Medications Medication Sig Dispensed Refills Start Date [...] retinopathy severity ([facility]) take 1 tablet by mouth daily [...] insulin ([facility]) Take 1 Tablet by mouth in the morning and 1 Tablet at noon and 1 Tablet before bedtime. 270 Tablet 3 06/08/2023 Active Empagliflozin 25 MG Oral Tablet (Jardiance)Indicati ons:Type 2 diabetes mellitus with stage 3b chronic kidney disease, without long-term current use of insulin ([facility]) Take 1 Tablet by mouth in the [...] by mouth in the morning. Inc at [place] 09/07/23. 0 09/16/2023 Active Tresiba FlexTouch 100 UNIT/ML Subcutaneous Solution Pen-injector (Insulin Degludec)Indication s:Type 2 diabetes mellitus with stage 3b chronic kidney disease, without long-term current use of insulin ([facility]),Type 2 diabetes mellitus with hemoglobin A1c goal of less than 8.0% ([facility]) Inject 30 Units under the skin in the morning. 0 09/16/2023 Active Carvedilol 25 MG Oral Tablet (Coreg) Take 1.5 Tablets by mouth 2 times a day with morning and evening meals. 270 Tablet 1 10/03/2023 Active Potassium Chloride Denise ER 20 MEQ Oral Tablet Extended ReleaseIndications: Diastolic CHF with preserved left ventricular function, NYHA class 2 ([facility]),Hypokalemia Take 1 Tablet by mouth in the morning. 90 Tablet 1 10/10/2023 Active Furosemide 40 MG Oral Tablet (Lasix) Take 1 Tablet by mouth every other day. And as directed for edema 60 Tablet 13 10/14/2023 Active amLODIPine Besylate 10 MG Oral Tablet (Norvasc) Take 1 Tablet by mouth in the morning. 90 Tablet 1 10/16/2023 Active Droplet Pen [place] 32G X 6 MM (NOVOFINE 32G PEN NEEDLE)Indications: Type 2 diabetes mellitus with hemoglobin A1c goal of less than 8.0% (HCC) USE WITH LANTUS DAILY 100 Each 1 10/16/2023 Active documented as of this encounter (statuses as of 10/29/2023) Active Problems Problem Noted Date Diagnosed Date [...] as of this encounter (statuses as of 10/29/2023) Resolved Problems Problem Noted Date Diagnosed Date Resolved Date Chronic kidney disease, stage 3b 03/17/2022 05/21/2023 Overview: Per CKD protocol Type 2 diabetes mellitus wit h stage 3b chronic kidney disease, without long-term current use of insulin 07/26/2021 03/20/2022 Overview: Per CKD protocol documented as of this encounter (statuses as of 10/29/2023) Immunizations Name Administration Dates Next Due COVID-19 [...] Encounter - Rosetta Tony MED ASSIST - 10/29/2023 4:21 PM EDT Patient aware and verbalized understanding * Telephone Encounter - Doberstein, Virgil F, MD - 10/29/2023 4:03 PM EDT If her oxygen is dropping and she is sob, worsening, would suggest ER * Telephone Encounter - Cally Hill LPN - 10/29/2023 3:31 PM EDT Patient calling back. She gets dyspneic on exertion. In 8 to 10 steps her pulse ox will drop down to 82 to 83 percent with oxygen on at 2 lpm Takes a few minutes to recover. When sitting she maintains between 93 to 95% Last week it was 97% while sitting and if she walked it would stay in the low 90's per the nurse who is there. The nurse, Karolyn has noticed the sob increasing over the last couple of weeks. She had oxygen at night @ 2 lpm n.c. She was told by Dr. Schroeder to use the oxygen continuously. Patient has complied. Patient concerned that she doesn't have enough in the smaller tank to come into the office on the . She gets her oxygen from [employer]. [phone] Called the office. Spoke to Paty. Informed to send message and she will make sure Dr. Ortez reads the message and will call the patient back. * Telephone Encounter - Rosetta Tony MED ASSIST - 10/27/2023 11:47 AM EDT Called patient, left message to return call. * Telephone Encounter - Rosetta Tony MED ASSIST - 10/27/2023 11:46 AM EDT ----- Message from Virgil Ortez MD sent at 10/23/2023 1:55 PM EDT ----- Mild vascular congestion with fluid. Any sob/keith? Let us know. Please keep follow up with pcp for further evaul as well documented in this encounter Plan of Treatment Upcoming Encounters Date Type Department Care Team (Late st Contact Info) Description 11/03/2023 2:00 PM EDT Office Visit General Internal Medicine [facility] [address] [facility] [place] [address] Dalila Bauman MD [address] [facility] [place] [address] 11/10/2023 2:30 PM EDT Office Visit Pharmacy, [facility] [place] [address] [facility] [place] [address] Pharmacist1, [facility] 200 [facility] [place] [address] 11/10/2023 3:00 PM EDT Office Visit Hematology/Oncology [facility] [address] [facility] [place] [phone] Joshua Nunez MD [address] [facility] [place] [address] 01/05/2024 4:00 PM EDT Office Visit Cardiology, [facility] [address] [place] [address] Wiliam Schroeder MD [address] [place] [address] 02/04/2024 2:20 PM EDT Office Visit Sleep Disorders Ctr [facility] [address] [place] [phone] Kayleen Stephens DO [address] [place] [address] Health Maintenance Due Date Last Done Comments Pneumococcal Vaccine: 65+ Years (1 of 2 - PCV) 02/18/1941 DTaP,Tdap,and Td Vaccines (1 - Tdap) 1954 Zoster Vaccines (1 of 2) 02/18/1984 Diabetic Foot Exam 10/16/2022 10/16/2021 COVID-19 Vaccine (5 - season) 2023 12/18/2021, 07/11/2021, 12/11/2020, Additional [...] D LEVEL ONCE IN A LIFETIME-USE SMARTSET# 31961 Completed 09/16/2023, 12/19/2022, 03/25/2022, Additional history exists [...] this encounter Medical Devices Implanted Type Area Per Diem Rn Device Identifier Shelf Expiration Date Model / Serial / Lot Lens Intraoc 25.0 - [id number] - [id number] Implanted:Qty: 1 on 09/03/2021 by Deon Griffin MD at OR [facility] Left: Eye [employer]OMB 10/02/2025 [id number] / [id number] / [id number] Lens Intraoc 26.0 - [id number] - [id number] Implanted:Qty: 1 on 09/17/2021 by Deon Griffin MD at OR [facility] Right: Eye [employer]CH [employer] LOMB 10/03/2025 [id number] / [id number] / [id number] documented as of this encounter Advance Directives Healthcare Agents on File Name Relationship Healthcare Agent [facility] p Communication [facility] Adult Child Health Care R epresentative (appointed verbally by patient or by statute hierarchy) Care Teams Automatic Fabric Cutter Relationship Specialty Start Date End Date Dalila Bauman MD [address] [place] [address] PCP - General Internal Medicine 01/09/21 documented as of this encounter
--- OUTSIDE RECORDS SUMMARY | 2023-10-31 14:27 | External Medical Summary | Summary of Care ---
Author Name Unknown Organization [facility] Address [address] [place] [address] Phone [phone] Care Team Providers Care Novelty Twister Tender Name Role Phone Dalila Bauman MD Primary Care Provider [phone] Reason for Referral * Evaluate & Treat - Unlimited Visits (Within 10 days (routine)) - Authorized Specialty Diagnoses / Procedures Referred By Sandra chris Referred To Contact Hematology/Oncology / Hematology Oncology Diagnoses Macrocytic anemia Renal insufficiency IgG gammopathy Wiliam Schroeder MD [address] [place] [address] Referral ID Status Reason Start Date Expiration Date Visits Requested Visits Authorized [id number] Authorized Specialty Services Required 10/23/2023 999 999 Question Answer Referral Priority Within 10 days (routine) Where should this appointment be scheduled? [facility] Reason for Referral Anemia Reason for Visit * Reason Onset Date Comments Test Results 10/22/2023 Encounter Details Date Type Department Care Team (Late st Contact Info) Description 10/22/2023 Telephone Cardiology, [facility] [address] [place] [address] Wiliam Schroeder MD [address] [place] [address] Test Results Allergies Active Allergy Reactions Criticality [...] disease, without long-term current use of insulin ([facility]),Type 2 diabetes mellitus with hemoglobin A1c goal of less than 8.0% ([facility]) Inject 30 Units under the skin in the morning. 0 09/16/2023 Active Carvedilol 25 MG Oral Tablet (Coreg) Take 1.5 Tablets by mouth 2 times a day with morning and evening meals. 270 Tablet 1 10/03/2023 Active Potassium Chloride Denise ER 20 MEQ Oral Tablet Extended ReleaseIndications: Diastolic CHF with preserved left ventricular function, NYHA class 2 ([facility]),Hypokalemia Take 1 Tablet by mouth in the morning. 90 Tablet 1 10/10/2023 Active Furosemide 40 MG Oral Tablet (Lasix) Take 1 Tablet by mouth every other day. And as directed for edema 60 Tablet 13 10/14/2023 Active amLODIPine Besylate 10 MG Oral Tablet (Norvasc) Take 1 Tablet by mouth in the morning. 90 Tablet 1 10/16/2023 Active Droplet Pen [place] 32G X 6 MM (NOVOFINE 32G PEN NEEDLE)Indications: Type 2 diabetes mellitus with hemoglobin A1c goal of less than 8.0% ([facility]) USE WITH LANTUS DAILY 100 Each 1 [...] LNP-s, No Preserve , Michel-sucrose, Ages 12+ ([employer]) 12/18/2021 COVID-19, mRNA, LNP-s, PF, B ooster, [...] encounter Miscellaneous Notes * Telephone Encounter - Erin Ram CMA - 10/26/2023 10:26 AM EDT Called patient. No answer. Left message asking patient to call back. * Telephone Encounter - Tonya Fitzgerald OSA - 10/22/2023 3:35 PM EDT Person calling: Ramila Relationship to patient: self Number to return call: [phone] Reason for call: test results Pharmacy: Provider [...] Description 10/29/2023 1:30 PM EDT Laboratory Laboratory [facility] [address] [facility] [address] [place] [phone] Myrna Gonzalez [facility] [address] [facility] [place] [address] 11/03/2023 2:00 PM EDT Office Visit General Internal Medicine [facility] [address] [facility] [address] [place] [address] Dalila Bauman MD [address] [facility] [place] [address] 11/10/2023 2:30 PM EDT Office Visit Pharmacy, [facility] [address] [facility] [place] [address] Pharmacist1, [facility] [address] [facility] [place] [address] 11/10/2023 3:00 PM EDT Office Visit Hematology/Oncology [facility] [address] [facility] [place] [phone] Joshua Nunez MD [address] [facility] [place], [place] [address] 01/05/2024 4:00 PM EDT Office Visit Cardiology, [facility] [address] [place] [address] Wiliam Schroeder MD [address] [place] [address] 02/04/2024 2:20 PM EDT Office Visit [facility] Disorders Ctr [facility] [address] [phone] Kayleen Stephens DO [address] [place] [address] Scheduled Referrals Name Type Priority Associated Diagnoses [...] D LEVEL ONCE IN A LIFETIME-USE SMARTSET# [id number] Completed 09/16/2023, 12/19/2022, 03/25/2022, Additional history exists [...] this encounter Medical Devices Implanted Type Area Account Resolution Specialist Device Identifier Shelf Expiration Date Model / Serial / Lot Lens Intraoc 25.0 - [id number] - [id number] Implanted:Qty: 1 on 09/03/2021 by Deon Griffin MD at OR [facility] Left: Eye [employer] 10/02/2025 [id number] / [id number] / [id number] Lens Intraoc 26.0 - [id number] - [id number] Implanted:Qty: 1 on 09/17/2021 by Deon Griffin MD at OR [facility] Right: Eye [employer] 10/03/2025 [id number] / [id number] / [id number] documented as of this encounter Visit Diagnoses Diagnosis Macrocytic anemia- Primary Unspecified deficiency anemia Renal insufficiency Unspecified disorder of kidney and ureter IgG gammopathy Monoclonal paraproteinemia documented in this encounter Advance Directives Healthcare Agents on File Name Relationship Healthcare Agent Relationshi p Communication [facility] R epresentative (appointed verbally by patient or by statute hierarchy) Care Teams Novelty Twister Tender Relationship Specialty Start Date End Date Dalila Bauman MD [address] [place] [address] PCP - General Internal Medicine 01/09/21 documented as of this encounter
--- OUTSIDE RECORDS SUMMARY | 2023-10-31 14:27 | External Medical Summary | Summary of Care ---
Author Name Unknown Organization [facility] Address [address] [place] [address] Phone [phone] Care Team Providers Care Credit Counselor Name Role Phone Dalila Bauman MD Primary Care Provider [phone] Reason for Visit * Reason Onset Date Comments Test Results 10/16/2023 Encounter Details Date Type Department Care Team (Late st Contact Info) Description 10/16/2023 Telephone Cardiology, [facility] [address] [place] [address] Wiliam Schroeder MD [address] [facility] [place], [place] [id number] Test Results Allergies Active Allergy Reactions Criticality Noted Date Comments Latex 01/09/2021 Penicillins 01/09/2021 Sulfa Antibiotics 01/09/2021 documented as of this encounter (statuses as of 10/28/2023) Medications Medication Sig Dispensed Refills Start Date [...] hemoglobin A1c goal of less than 8.0% ([facility]) take 1 tablet by mouth three [...] hemoglobin A1c goal of less than 8.0% ([facility]) Use to test blood glucose [...] disease, without long-term current use of insulin ([facility]),Type 2 diabetes mellitus with hemoglobin A1c goal of less than 8.0% ([facility]) Inject 30 Units under the skin in the morning. 0 09/16/2023 Active Carvedilol 25 MG Oral Tablet (Coreg) Take 1.5 Tablets by mouth 2 times a day with morning and evening meals. 270 Tablet 1 10/03/2023 Active Potassium Chloride Denise ER 20 MEQ Oral Tablet Extended ReleaseIndications: Diastolic CHF with preserved left ventricular function, NYHA class 2 ([facility]),Hypokalemia Take 1 Tablet by mouth in the morning. 90 Tablet 1 10/10/2023 Active Furosemide 40 MG Oral Tablet (Lasix) Take 1 Tablet by mouth every other day. And as directed for edema 60 Tablet 13 10/14/2023 Active documented as of this encounter (statuses as of 10/28/2023) Active Problems Problem Noted Date Diagnosed Date [...] as of this encounter (statuses as of 10/28/2023) Resolved Problems Problem Noted Date Diagnosed Date Resolved Date Chronic kidney disease, stage 3b 03/17/2022 05/21/2023 Overview: Per CKD protocol Type 2 diabetes mellitus wit h stage 3b chronic kidney disease, without long-term current use of insulin 07/26/2021 03/20/2022 Overview: Per CKD protocol documented as of this encounter (statuses as of 10/28/2023) Immunizations Name Administration Dates Next Due COVID-19 [...] encounter Miscellaneous Notes * Telephone Encounter - Brit Estrella RN - 10/16/2023 11:51 AM EDT Left message for patient to return call. Requested labs ordered as add ons to the labs she had earlier this week. Brit Estrella RN * Telephone Encounter - Brit Estrella RN - 10/16/2023 11:44 AM EDT ----- Message from Wiliam Schroeder MD sent at 10/15/2023 9:41 AM EDT ----- Renal function and electrolytes are stable. Anemia noted during hospitalization has persisted. Would like additional laboratory testing when able Iron screen, B12, folate, serum immunoelectrophoresis documented in this encounter Plan of Treatment Upcoming Encounters Date Type Department Care Team (Late st Contact Info) Description 10/29/2023 1:30 PM EDT Laboratory Laboratory [facility] [address] [facility] [place] [phone] Myrna Gonzalez [facility] [address] [facility] [place] [address] 11/03/2023 2:00 PM EDT Office Visit General Internal Medicine [facility] [address] [facility] [place] [address] Dalila Bauman MD [address] [facility] [place] [address] 11/10/2023 2:30 PM EDT Office Visit Pharmacy, [facility] [address] [place] [address] Pharmacist1, [facility] [address] [place] [address] 11/10/2023 3:00 PM EDT Office Visit Hematology/Oncology [facility] [address] [facility] [place] [phone] Joshua Nunez MD [address] [facility] [place], [place] [address] 01/05/2024 4:00 PM EDT Office Visit Cardiology, [facility] [address] [place] [address] Wiliam Schroeder MD [address] [place] [address] 02/04/2024 2:20 PM EDT Office Visit Sleep Disorders Ctr [facility] [address] [place] [phone] Kayleen Stephens, [address] [place] [address] Health Maintenance Due Date Last Done Comments [...] D LEVEL ONCE IN A LIFETIME-USE SMARTSET# [id number] Completed 09/16/2023, 12/19/2022, 03/25/2022, Additional history exists [...] this encounter Medical Devices Implanted Type Area Civil Engineering Assistant Device Identifier Shelf Expiration Date Model / Serial / Lot Lens Intraoc 25.0 - [id number] - [id number] Implanted:Qty: 1 on 09/03/2021 by Deon Griffin MD at OR [facility] Left: Eye [employer] 10/02/2025 [id number] / [id number] / [id number] Lens Intraoc 26.0 - [id number] - [id number] Implanted:Qty: 1 on 09/17/2021 by Deon Griffin MD at OR [facility] Right: Eye [employer] 10/03/2025 [id number] / [id number] / [id number] documented as of this encounter Results * (ABNORMAL) SERUM IMMUNOFIXATION (10/14/2023 3:55 PM EDT) Pathologist [facility] Normal/Abnormal Abnormal(A) Normal 10/19/19 5:02 PM EDT LABORATORY [facility] Immunofixation Interpretation Abnormal, a monoclonal IgG kappa gammopathy is present. 10/19/2023 5:02 PM EDT LABORATORY [facility] Blood Venous blood specimen / Unknown Venipuncture / Unknown 10/14/2023 3:55 PM EDT 10/14/2023 3:55 PM EDT Wiliam Schroeder MD LAB BLOOD ORDERABLES LABORATORY [facility] [address] [place] [address] * FOLIC ACID (10/14/2023 3:55 PM EDT) Pathologist [facility] Folic Acid 7.2 >4.5 ng/mL 10/16/2023 8:31 PM EDT LAB[facility]ATORY [facility] Blood Venous blood specimen / Unknown Venipuncture / Unknown 10/14/2023 3:55 PM EDT 10/14/2023 3:55 PM EDT Wiliam Schroeder MD LAB BLOOD ORDERABLES Performing Organization Address [facility] Co de Phone Number LABORATORY [facility] [address] [place] [address] * VITAMIN B12 (10/14/2023 3:55 PM EDT) Vitamin B12 391 232 - 1,245 pg/mL 10/16/2023 8:32 PM EDT LAB[facility]ORY [facility] Blood Venous blood specimen / Unknown Venipuncture / Unknown 10/14/2023 3:55 PM EDT 10/14/2023 3:55 PM EDT Wiliam Schroeder MD LAB BLOOD ORDERABLES Performing Organization Address [facility] Phone Number LABORATORY [facility] [address] [place] [address] * (ABNORMAL) IRON SCREEN, INCLUDING TIBC (10/14/2023 3:55 PM EDT) Iron 46 33 - 151 ug/dL 10/16/2023 7:58 PM EDT LAB[facility]ORY [facility] Iron Binding Capacity 227(L) 250 - 425 ug/dL 10/16/2023 7:58 PM EDT [facility] Transferrin Saturation Percent 20 15 - 55 % 10/16/2023 7:58 PM EDT LAB[facility] Blood Venous blood specimen / Unknown Venipuncture / Unknown 10/14/2023 3:55 PM EDT 10/14/2023 3:55 PM EDT Wiliam Schroeder MD LAB BLOOD ORDERABLES Performing Organization Address [facility] Co de Phone Number LABORATORY [facility] [address] [place] [address] documented in this encounter Visit Diagnoses Diagnosis Anemia- Primary Anemia, unspecified Hypertensive heart disease with chronic diastolic congestive heart failure (HCC) Stage 3 chronic kidney disease, unspecified whether stage 3a or 3b CKD (HCC) Fatigue, unspecified type B12 deficiency Other B-complex deficiencies Type 2 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 disease, with long-term current use of insulin (HCC) documented in this encounter Advance Directives Healthcare Agents on File Name Relationship Healthcare Agent Relationshi p Communication Nancy [facility] Adult Child Health Care R epresentative (appointed verbally by patient or by statute hierarchy) Care Teams Credit Counselor Relationship Specialty Start Date End Date Dalila Bauman MD [address] [place] [address] PCP - General Internal Medicine 01/09/21 documented as of this encounter
--- OUTSIDE RECORDS SUMMARY | 2023-10-31 14:27 | External Medical Summary | Summary of Care ---
Author Name Unknown Organization [facility] Address [address] [place] [address] Phone [phone] Care Team Providers Care Enginehouse Brakeman Name Role Phone Juno Bauman MD Primary Care Provider [phone] Reason for Visit * Reason Comments Hospital Follow-Up Encounter Details Date Type Department Care Team (Late st Contact Info) Description 10/14/2023 1:00 PM EDT Office Visit Cardiology, [facility] [address] [place] [address] Wiliam Schroeder MD [address] [facility] [place] [address] Hypertensive heart disease with chronic diastolic congestive heart failure (HCC)* Allergies Active Allergy Reactions Criticality Noted Date Comments Latex 01/09/2021 Penicillins 01/09/2021 Sulfa Antibiotics 01/09/2021 documented as of this encounter (statuses as of 10/14/2023) Medications Medication Sig Dispensed Refills Start Date [...] less than 8.0% ([facility]) Use as directed every 14 days . [...] DX: E11.9 300 Each 3 07/02/2023 Active amLODIPine Besylate 5 MG Oral Tablet (Norvasc) Take 2 Tablets by mouth in the morning. 0 Active Magnesium Chloride 64 MG Oral Tablet [...] long-term current use of insulin ([facility]),Type 2 diabetes mellitus with hemoglobin A1c goal of less than 8.0% ([facility]) Inject 30 Units under the skin in the morning. 0 09/16/2023 Active Carvedilol 25 MG Oral Tablet (Coreg) Take 1.5 Tablets by mouth 2 times a day with morning and evening meals. 270 Tablet 1 10/03/2023 Active Potassium Chloride Denise ER 20 MEQ Oral Tablet Extended ReleaseIndication s:Diastolic CHF with preserved left ventricular function, NYHA class 2 (HCC),Hypokalemia Take 1 Tablet by mouth in the morning. 90 Tablet 1 10/10/2023 Active Furosemide 40 MG Oral Tablet (Lasix) Take 1 Tablet by mouth every other day. And as directed for edema 60 Tablet 13 10/14/2023 Active Furosemide 40 MG Oral Tablet (Lasix) Take 1 Tablet by mouth once a day on Thursday, Thursday, and Thursday only. 0 10/14/19 24 Discontinued documented as of this encounter (statuses as of 10/14/2023) Active Problems Problem Noted Date Diagnosed Date [...] as of this encounter (statuses as of 10/14/2023) Resolved Problems Problem Noted Date Diagnosed Date Resolved Date Chronic kidney disease, stage 3b 03/17/2022 05/21/2023 Overview: Per CKD protocol Type 2 diabetes mellitus wit h stage 3b chronic kidney disease, without long-term current use of insulin 07/26/2021 03/20/2022 Overview: Per CKD protocol documented as of this encounter (statuses as of 10/14/2023) Immunizations Name Administration Dates Next Due COVID-19 [...] Sign Reading Time Taken Comments Blood Pressure 164/54 10/14/2023 2:53 PM EDT Pulse 68 10/14/2023 2:53 PM EDT Temperature - - Respiratory Rate 12 10/14/2023 2:53 PM EDT Oxygen Saturation 98% 10/14/2023 2:53 PM EDT 2 LPM NC Inhaled Oxygen Concentration - - Weight 87.8 kg (193 lb 9.6 oz) 10/14/2023 2:53 P M EDT Height - - Body Mass Index 33.23 09/16/2023 3:45 PM EDT documented in this encounter Progress Notes * Wiliam Schroeder MD - 10/14/2023 1:00 PM EDT October 14, 2023 Cardiology Follow Up Referring Provider: PCP: [place] [address] [phone] Chief Complaint: Labile hypertension post hospital follow-up for acute diastolic heart failure SUBJECTIVE: Ramila Urrutia is a 88 year old year old female with ongoing cardiac issues Longstanding history of hypertension with past hypertensive urgency Diastolic heart failure with acute hospitalization on September 01, 2023 CKD stage 3 Type 2 diabetes 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 Patient discharged from [facility] on September 07, 2023 after hospitalization with hypertensive crisis with associated hyponatremia and acute on chronic renal insufficiency. Chronic diastolic heart failure present. Patient's medications adjusted with control of blood pressure and stabilization of renal dysfunction. Since returned to home patient feels blood pressures have been generally controlled. Has had moderate lower extremity edema weights have been trending slightly downward though notes decrease in appetite. Lower extremity edema remains present of the knees Currently using furosemide 3 days per week. Took an additional dose over past weekend due to increased weight. No fevers or chills. Wears oxygen faithfully but does note lower oxygen levels when ambulating. A Complete Review of Systems is as stated above or negative. 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 100 Tab 3 Acetaminophen 500 MG Oral Tablet (Tylenol) Take [...] Capsule (Apoaequorin) Take by mouth every evening. Isosorbide Dinitrate 30 MG Oral Tablet Take 1 Tablet by mouth in the morning and 1 Tablet at noon and 1 Tablet before bedtime. 270 Tablet 3 Vitamin B-12 1000 MCG Oral Tablet (Cyanocobalamin) 1 tab on odd days only, start 06/13/2021--dec 3d/wk 10/18/2021 45 Tablet 3 CoQ10 200 MG Oral Capsule Repaglinide 2 MG Oral Tablet (Prandin) take 1 tablet by mouth three times a day BEFORE MEALS Strength: 2 mg 270 Tablet 3 Atorvastatin Calcium 80 MG Oral Tablet (Lipitor) take 1 tablet by mouth at bedtime INCREASE 11/13/2021 90 Tablet 2 Melatonin ER 1 MG Oral Tablet Extended Release daily1 tab at bedtime daily, if not improved may increase upto 5 mg daily 90 Tablet 1 Tradjenta 5 MG Oral [...] mouth in the morning. 90 Tablet 3 amLODIPine Besylate 5 MG Oral Tablet (Norvasc) Take 2 Tablets by mouth in the morning. Magnesium Chloride 64 MG Oral Tablet Take by mouth daily. Sertraline HCl 50 MG Oral Tablet (Zoloft) Take 1 Tablet by mouth in the morning. Inc at [place] 09/07/23. Tresiba FlexTouch 100 UNIT/ML Subcutaneous Solution Pen-injector (Insulin Degludec) Inject 30 Unitsunder the skin in the morning. Carvedilol 25 MG Oral Tablet (Coreg) Take 1.5 Tablets by mouth 2 times a day with morning and evening meals. 270 Tablet 1 Potassium Chloride Denise ER 20 MEQ Oral Tablet Extended Release Take 1 Tablet by mouth in the morning. 90 Tablet 1 Furosemide 40 MG Oral Tablet (Lasix) Take 1 Tablet by mouth every other day. And as directed for edema 60 Tablet 13 Prodigy Voice Blood Glucose w/Device Kit Use [...] No current facility-administered medications for this visit. OBJECTIVE/PHYSICAL EXAMINATION: BP 164/54 (BP Site: Left Arm, BP Position: Sitting, BP Cuff Size: Large) | Pulse 68 | Resp 12 | Wt 87.8 kg (193 lb 9.6 oz) | SpO2 98% Comment: 2 LPM NC | BMI 33.23 kg/m | BSA 1.99 m General: no acute distress wearing oxygen nasal cannula Head: normocephalic, no masses, lesions, tenderness or abnormalities Eyes: conjunctiva are pink and non-injected, sclera clear Throat: clear Nares: without discharge Neck: supple, no adenopathy, no bruits, normal jugular venous pulse, no hepatojugular reflux, no carotid bruits Chest: normal shape and normal respiratory effort Lungs: Diminished breath sounds few crackles left base but mostly clear Cardiac Exam: - regular rate & rhythm, no murmur, gallop or rub - normal S-1, normal S-2 Abdomen: abdomen soft, non-tender, no abnormal masses, no hepatosplenomegaly, no abdominal bruit, no femoral bruit Musculoskeletal: no gait disturbance, no joint inflammation, no deforming arthritis Extremities: 1 to 2+ edema to knees compression stockings in place, no cyanosis, pulses intact 2+/4 Neuro: grossly normal exam Data: Lipid Panel Results: Results for orders placed or performed in visit on 01/22/22 LIPID PANEL WITH DIRECT LDL IF TG IS HIGH Result Value Ref Range Triglycerides 199 (H) <=174 mg/dL Cholesterol 147 <200 mg/dL HDL Cholesterol 59 >49 mg/dL Non-HDL Cholesterol 88 <=159 mg/dL ASSESSMENT: 87 year old year old female With markedly labile hypertension and hypertensive heart disease with diastolic heart failure seen in follow-up after recent acute hospitalization with diastolic heart failure, hypertensive urgency, acute renal insufficiency PLAN: 1. Hypertension with hypertensive heart disease, diastolic heart failure . Moderate edema present will increase furosemide to every other day dosing. 2. Diastolic heart failure as above. Previously treated with spironolactone with difficulties with hyperkalemia, hyponatremia 3. Chronic renal insufficiency: BMP today 4. Asymptomatic right carotid artery stenosis. Carotid duplex ordered for later today and will be reviewed. Discussed indications for management and treatment Requiring oxygen supplementation at night and likely need for additional oxygen during the day. Will attempt to expedite evaluation has patient not provided with mobile oxygen supply BMP, chest x-ray today DISPOSITION: Return 3 months Wiliam Schroeder MD Cardiology, [address] [address] documented in this encounter Nursing Notes * Katarina Gonsalez CMA - 10/14/2023 3:12 PM EDT Examination Room: 14 Name: Ramila Urrutia Date of : (1935). Reason for Visit: Hospital f/u Interim Hospitalization(s): [facility] Problems/Concerns: Fatigue. Occasional brief palpitations. LE edema, improved but still pitting up to mid-calf. States she had a 1.5# weight gain since 10/12. Chest Pain/SOB: Chest pressure with SOB. States SOB since hospital visit. Wears O2 at night but haslow SpO2 readings in AM and with exertion. Wears O2 with readings between 90-88, [facility] Discussed: Not applicable [...] 10/29/2023 1:30 PM EDT Laboratory Laboratory [facility] [place] [address] [place] [phone] Myrna Gonzalez [place] [address] [place] [address] 11/03/2023 2:00 PM EDT Office Visit General Internal Medicine [facility] [place] [address] [place] [address] Juno Bauman MD [address] [facility] [place] [address] 11/10/2023 2:30 PM EDT Office Visit Pharmacy, [facility] [place] [address] [place] [address] [address] Pharmacist1, [facility] [address] [place] [address] [address] 11/10/2023 3:00 PM EDT Office Visit Hematology/Oncology [facility] [address] [facility] [place] [phone] Joshua Nunez MD [address] [facility] [place], [place] [address] 01/05/2024 4:00 PM EDT Office Visit Cardiology, [facility] [address] [facility] [place] [address] Wiliam Schroeder MD [address] [place] [address] 02/04/2024 2:20 PM EDT Office Visit Sleep Disorders Ctr [facility] [address] [place] [phone] Kayleen Stephens DO [address] [place] [address] Health Maintenance Due Date Last Done Comments [...] D LEVEL ONCE IN A LIFETIME-USE SMARTSET# [id number] Completed 09/16/2023, 12/19/2022, 03/25/2022, Additional history exists [...] this encounter Medical Devices Implanted Type Area Distillery Laborer Device Identifier Shelf Expiration Date Model / Serial / Lot Lens Intraoc 25.0 - [id number] - [id number] Implanted:Qty: 1 on 09/03/2021 by Deon Griffin MD at OR [facility] Left: Eye [employer] 10/02/2025 [id number] / [id number] / [id number] Lens Intraoc 26.0 - [id number] - [id number] Implanted:Qty: 1 on 09/17/2021 by Deon Griffin MD at [facility] Right: Eye [employer] 10/03/2025 [id number] / [id number] / [id number] documented as of this encounter Results * (ABNORMAL) BASIC METABOLIC PANEL (10/14/2023 3:55 PM EDT) Pathologist [facility] BUN 25(H) 6 - 20 mg/dL 10/14/2023 5:07 PM EDT [facility] [place] [facility] Creatinine 1.6(H) 0.5 - 1.0 mg/dL 10/14/2023 5:07 PM EDT [facility] [place] [facility] Estimated Glomerular Filtration Rate 32(L) >=60 mL/min 10/14/2023 5:07 PM EDT [facility] [place] [facility] Comment:eGFR is calculated b ased on the CKD-EPI 2020 equation Sodium 137 135 - 146 mmol/L 10/14/2023 5:07 PM EDT [facility] [place] [facility] Potassium 3.8 3.5 - 5.1 mmol/L 10/14/2023 5:07 PM EDT [facility] [place] [facility] Chloride 100 98 - 107 mmol/L 10/14/2023 5:07 PM EDT [facility] [place] [facility] CO2 26 22 - 32 mmol/L 10/14/2023 5:07 PM EDT [facility] [place] [facility] Anion Gap 11 7 - 15 mmol/L 10/14/2023 5:07 PM EDT [facility] [place] [facility] Glucose 136(H) 70 - 120 mg/dL 10/14/2023 5:07 PM EDT [facility] [place] [facility] Calcium 9.7 8.4 - 10.2 mg/dL 10/14/2023 5:07 PM EDT [facility] [place] [facility] Blood Venous blood specimen / Unknown Venipuncture / Unknown 10/14/2023 3:55 PM EDT 10/14/2023 3:55 PM EDT Wiliam Schroeder MD LAB BLOOD ORDERABLES [facility] [place] [facility] [address] [facility] [place] [address] documented in this encounter Visit Diagnoses Diagnosis Hypertensive heart disease with chronic diastolic congestive heart failure (HCC)- Primary documented in this encounter Advance Directives Healthcare Agents on File Name Relationship Healthcare Agent Relationshi p Communication [facility] Adult Child [facility] Care R epresentative (appointed verbally by patient or by statute hierarchy) Care Teams Enginehouse Brakeman Relationship Specialty Start Date End Date Juno Bauman MD [address] [facility] [place] [address] PCP - General Internal Medicine 01/09/21 documented as of this encounter"
--- OUTSIDE RECORDS SUMMARY | 2023-10-31 14:27 | External Medical Summary | Summary of Care ---
Author Name Unknown Organization [facility] Address [address] [facility] [address] Phone [phone] Care Team Providers Care Lead Quality Control Technician Name Role Phone Dalila Bauman MD Primary Care Provider [phone] Reason for Visit * Reason Onset Date Comments Medication Refill 10/16/2023 Encounter Details Date Type Department Care Team (Late st Contact Info) Description 10/16/2023 Refill General Internal Medicine [facility] [place] [address] [facility] [place] [address] Dalila [facility] MD [address] [facility] [address] Allergies Active Allergy Reactions Criticality Noted Date [...] use of insulin ([facility]) Take 1 Tablet by mouth in the [...] by mouth in the morning. Inc at [place] 09/07/23. 0 09/16/2023 Active Tresiba FlexTouch 100 UNIT/ML Subcutaneous Solution Pen-injector (Insulin Degludec)Indicati ons:Type 2 diabetes mellitus with stage 3b chronic kidney disease, without long-term current use of insulin ([facility]),Type 2 diabetes mellitus with hemoglobin A1c goal of less than 8.0% ([facility]) Inject 30 Units under the skin in the morning. 0 09/16/2023 Active Carvedilol 25 MG Oral Tablet (Coreg) Take 1.5 Tablets by mouth 2 times a day with morning and evening meals. 270 Tablet 1 10/03/2023 Active Potassium Chloride Denise ER 20 MEQ Oral Tablet Extended ReleaseIndication s:Diastolic CHF with preserved left ventricular function, NYHA class 2 ([facility]),Hypokalemia Take 1 Tablet by mouth in the morning. 90 Tablet 1 10/10/2023 Active Furosemide 40 MG Oral Tablet (Lasix) Take 1 Tablet by mouth every other day. And as directed for edema 60 Tablet 13 10/14/2023 Active amLODIPine Besylate 10 MG Oral Tablet (Norvasc) Take 1 Tablet by mouth in the morning. 90 Tablet 1 10/16/2023 Active Insulin Pen Needle 32G X 6 MMIndications:Typ e 2 diabetes mellitus with hemoglobin A1c goal of less than 8.0% ([facility]) Use with Lantus once daily 100 Each 3 09/02/2022 10/16/19 24 Discontinued amLODIPine Besylate 5 MG Oral Tablet (Norvasc) Take 2 Tablets by mouth in the morning. 0 10/16/19 24 Discontinued documented as of this [...] encounter Miscellaneous Notes * Telephone Encounter - Kadi Smith MD - 10/16/2023 3:24 PM EDTSigned Prescriptions: Disp Refills amLODIPine Besylate 10 MG Oral Tablet (Nor*90 Tab*1 Sig: Take 1 Tablet by mouth in the morning. Authorizing Provider: KADI SMITH * Telephone Encounter - Bernie Carlos LPN - 10/16/2023 2:53 PM EDT Images from the original note were not included. Patient calling in asking for a refill on her Amlodipine as she was in the hospital end of Aug to the beginning of September. She stated that they increased the dosage from 5mg to 10mg and only gave her a 30 day supply. Pharmacy selected. Pended medication for approval. Snip it from [facility] D[facility]ge Summary from 09/07/2023 that shows med increase. documented in this encounter Plan of Treatment Upcoming Encounters Date Type Department Care Team (Late st Contact Info) Description 10/29/2023 1:30 PM EDT Laboratory Laboratory [facility] [place] [address] [place] [address] [phone] [facility] [place] [address] 11/03/2023 2:00 PM EDT Office Visit General Internal Medicine [facility] [place] [address] Dalila Bauman MD [address] [place] [address] 11/10/2023 2:30 PM EDT Office Visit Pharmacy, [place] [address] Pharmacist1, [facility] [address] [facility] [place] [address] 11/10/2023 3:00 PM EDT Office Visit Hematology/Oncology [facility] [address] [facility] [place] [phone] Joshua Nunez MD [address] [facility] [place] [address] 01/05/2024 4:00 PM EDT Office Visit Cardiology, [facility] [address] [facility] [place] [address] Wiliam Schroeder MD [address] [place] [address] 02/04/2024 2:20 PM EDT Office Visit Sleep Disorders Ctr [facility] [address] [place] [phone] Kayleen Stephens DO [address] [place] [address] Health Maintenance Due Date Last Done Comments [...] D LEVEL ONCE IN A LIFETIME-USE SMARTSET# [id number] Completed 09/16/2023, 12/19/2022, 03/25/2022, Additional history exists [...] this encounter Medical Devices Implanted Type Area Spot Welder Line Device Identifier Shelf Expiration Date Model / Serial / Lot Lens Intraoc 25.0 - [id number] - [id number] Implanted:Qty: 1 on 09/03/2021 by Deon Griffin MD at OR [facility] Left: Eye [employer] 10/02/2025 [id number] / [id number] / [id number] Lens Intraoc 26.0 - [id number] - [id number] Implanted:Qty: 1 on 09/17/2021 by Deon Griffin MD at OR [facility] Right: Eye [employer] 10/03/2025 [id number] / [id number] / [id number] documented as of this encounter Advance Directives Healthcare Agents on File Name Relationship Healthcare Agent Relationshi p Communication Nancy [facility] Adult Child Health Care R epresentative (appointed verbally by patient or by statute hierarchy) Care Teams Lead Quality Control Technician Relationship Specialty Start Date End Date Dalila Bauman MD [address] [facility] [place] [address] PCP - General Internal Medicine 01/09/21 documented as of this encounter
--- OUTSIDE RECORDS SUMMARY | 2023-10-31 14:28 | External Medical Summary | Summary of Care ---
Author Name Unknown Organization [facility] Address [address] [place] [address] Phone [phone] Care Team Providers Care Wall Taper Helper Name Role Phone Dalila Bauman MD Primary Care Provider [phone] Reason for Visit * Reason Comments Outpatient Testing Encounter Details Date Type Department Care Team (Late st Contact Info) Description 10/14/2023 4:50 PM EDT Laboratory Laboratory, [facility] [address] [place] [address] [facility] [address] [place] [address] Hypertensive heart disease with chronic diastolic congestive heart failure (HCC) Allergies Active Allergy Reactions Criticality Noted [...] goal of less than 8.0% (HCC) Inject 30 Units under the skin in [...] Laboratory Laboratory State Amanda Dalal [address] [place] [phone] Myrna Gonzalez [address] [place] [address] 11/03/2023 2:00 PM EDT Office Visit General Internal Medicine [facility] [address] [facility] [place] [address] Dalila Bauman MD [address] [facility] [place] [address] 11/10/2023 2:30 PM EDT Office Visit Pharmacy, [facility] [address] [facility] [place] [address] Pharmacist1, [facility] 200 [facility] [place] [address] 11/10/2023 3:00 PM EDT Office Visit Hematology/Oncology [facility] [address] [facility] [place] [phone] Joshua Nunez MD [address] [facility] [place] [address] 01/05/2024 4:00 PM EDT Office Visit Cardiology, [facility] [address] [place] [address] Wiliam Schroeder MD [address] [place] [address] 02/04/2024 2:20 PM EDT Office Visit Sleep Disorders Ctr [facility] [address] [place] [phone] Kayleen Stephens DO [address] [place] [address] Pending Results Name Type Priority Associated Diagnoses Date /Time BASIC METABOLIC PANEL Lab Routine Hypertensive heart disease with chronic diastolic congestive heart failure (HCC) 10/14/2023 3:55 PM EDT Health Maintenance Due Date Last [...] D LEVEL ONCE IN A LIFETIME-USE SMARTSET# [id number] Completed 09/16/2023, 12/19/2022, 03/25/2022, Additional history exists [...] this encounter Medical Devices Implanted Type Area Auto Crane Driver Device Identifier Shelf Expiration Date Model / Serial / Lot Lens Intraoc 25.0 - [id number] - [id number] Implanted:Qty: 1 on 09/03/2021 by Deon Griffin MD at OR [facility] Left: Eye [employer]USCH [employer] LOMB 10/02/2025 [id number] / [id number] / [id number] Lens Intraoc 26.0 - [id number] - [id number] Implanted:Qty: 1 on 09/17/2021 by Deon Griffin MD at OR [facility] Right: Eye BAUSCH [employer] LOMB 10/03/2025 [id number] / [id number] / [id number] documented as of this encounter Procedures Procedure Name Priority Date/Time Associated Diagnosis Comments DIFFERENTIAL, AUTOMATED Routine 10/14/2023 3:55 PM EDT Hypertensive heart disease with chronic diastolic congestive heart failure (HCC) CBC Routine 10/14/2023 3:55 PM EDT Hypertensive heart disease with chronic diastolic congestive heart failure (HCC) CBC Routine 10/14/2023 3:55 PM EDT Hypertensive heart disease with chronic diastolic congestive heart failure (HCC) documented in this encounter Results * DIFFERENTIAL, AUTOMATED (10/14/2023 3:55 PM EDT) WBC 6.90 4.00 - 10.80 K/uL 10/14/2023 4:03 PM EDT [facility] Neutrophils % 67.1 40.0 - 75.0 % 10/14/2023 4:03 PM EDT [facility] [place] [facility] Lymphocytes % 21.3 18.0 - 42.0 % 10/14/2023 4:03 PM EDT [facility] [place] [facility] Monocytes % 10.3 1.0 - 11.0 % 10/14/2023 4:03 PM EDT [facility] [place] [facility] Eosinophils % 1.0 0.0 - 6.0 % 10/14/2023 4:03 PM EDT [facility] [place] [facility] Basophils % 0.3 0.0 - 2.0 % 10/14/2023 4:03 PM EDT [facility] [place] Absolute Neutrophils 4.63 1.80 - 7.70 K/uL 10/14/2023 4:03 PM EDT [facility] [place] [facility]10 Absolute Lymphocytes 1.47 1.00 - 4.80 K/ul 10/14/2023 4:03 PM EDT [facility] [place] [facility]10 Absolute Monocytes 0.71 0.00 - 1.10 K/uL 10/14/2023 4:03 PM EDT [facility] [place] [facility]10 Absolute Eosinophils 0.07 0.00 - 0.70 K/uL 10/14/2023 4:03 PM EDT [facility] [place] 57[facility]10 Absolute Basophils 0.02 0.00 - 0.20 K/uL 10/14/2023 4:03 PM EDT [facility] [place] 57[facility]10 Blood Venous blood specimen / Unknown Venipuncture / Unknown 10/14/2023 3:55 PM EDT 10/14/2023 3:55 PM EDT Wiliam Schroeder MD LAB BLOOD ORDERABLES Performing Organization Address City/State/[facility] Co de Phone Number LABORATORY [address] [address] * (ABNORMAL) CBC (10/14/2023 3:55 PM EDT) WBC 6.90 4.00 - 10.80 K/uL 10/14/2023 4:03 PM EDT [facility] [place] 5710 RBC 2.76 3.85 - 5.15 M/uL 10/14/2023 4:03 PM EDT [facility] [place] 5710 HGB 8.9(L) 12.0 - 15.3 g/dL 10/14/2023 4:03 PM EDT [facility] [place] 5710 HCT 27.9(L) 36.0 - 45.2 % 10/14/2023 4:03 PM EDT [facility] [place] 5710 MCV 101.1 81.5 - 97.5 fL 10/14/2023 4:03 PM EDT [facility] [place] 5710 MCH 32.2 27.0 - 34.0 pg 10/14/2023 4:03 PM EDT [facility] [place] 5710 MCHC 31.9 32.0 - 36.0 g/dL 10/14/2023 4:03 PM EDT [facility] [place] [facility] RDW 13.8 11.5 - 15.5 % 10/14/2023 4:03 PM EDT [facility] [place] [facility]10 PLT 291 140 - 400 K/uL 10/14/2023 4:03 PM EDT [facility] [place] [facility] MPV 8.7 6.6 - 11.1 fL 10/14/2023 4:03 PM EDT [facility] [place] [facility] Blood Venous blood specimen / Unknown Venipuncture / Unknown 10/14/2023 3:55 PM EDT 10/14/2023 3:55 PM EDT Wiliam Schroeder MD LAB BLOOD ORDERABLES [facility] [place] [facility] [address] [facility] [place] [address] documented in this encounter Visit Diagnoses Diagnosis Hypertensive heart disease with chronic diastolic congestive heart failure (HCC) documented in this encounter Advance Directives Healthcare Agents on File Name Relationship Healthcare Agent Relationshi p Communication [facility] Adult Child Health Care R epresentative (appointed verbally by patient or by statute hierarchy) Care Teams Wall Taper Helper Relationship Specialty Start Date End Date Dalila Bauman MD [address] [place] [address] [place] [address] PCP - General Internal Medicine 01/09/21 documented as of this encounter
--- OUTSIDE RECORDS SUMMARY | 2023-10-31 14:28 | External Medical Summary ---
Author Name Unknown Address Unknown Organization [id number]:[facility] [place] [address] [place] [address] Laboratory Report Ordering Provider Test Date Status JOHNY STAFFORD 10/08/2023 11:27:00 Final Observation Date Value Abnormality Reference (Units ) Status Parathyrin.intact [Mass/volume] in Serum or Plasma 10/08/2023 11:27:00 144 Above high normal 15-65 (pg/mL) Final Performing Location [facility] [place] [address] [place] [address]
--- OUTSIDE RECORDS SUMMARY | 2023-10-31 14:28 | External Medical Summary ---
Author Name Unknown Address Unknown Organization [id number]:[facility] [place] - [address] [facility] [address] [place] [address] Laboratory Report Ordering Provider Test Date Status JOHNY STAFFORD 10/08/2023 11:27:00 Final Observation Date Value Abnormality Reference (Units ) Status BUN 10/08/2023 11:27:00 24 Above high normal 6-20 (mg/dL) Final Creatinine 10/08/2023 11:27:00 1.5 Above high normal 0.5-1.0 (mg/dL) Final Glomerular filtration rate/1.73 sq M.predicted [Volume Rate/Area] in Serum, Plasma or Blood by Creatinine-based formula (CKD-EPI) 10/08/2023 11:27:00 33 Below low normal >=60 (mL/min) Final eGFR is calculated based on the CKD-EPI 2020 equation Sodium 10/08/2023 11:27:00 141 135-146 (m mol/L) Final Potassium 10/08/2023 11:27:00 3.7 3.5-5.1 (m mol/L) Final Cl 10/08/2023 11:27:00 105 98-107 (mm ol/L) Final CO2 10/08/2023 11:27:00 25 22-32 (mmo l/L) Final Anion gap 10/08/2023 11:27:00 11 7-15 (mmol /L) Final Glucose 10/08/2023 11:27:00 107 70-120 (mg /dL) Final Calcium 10/08/2023 11:27:00 9.8 8.4-10.2 ( mg/dL) Final Albumin 10/08/2023 11:27:00 3.9 3.8-5.0 (g /dL) Final Phosphate 10/08/2023 11:27:00 3.6 2.5-4.8 (m g/dL) Final Performing Location [facility]ORY [facility] - [address] [place] [address]
--- OUTSIDE RECORDS SUMMARY | 2023-10-31 14:28 | External Medical Summary | Summary of Care ---
Author Name Unknown Organization [facility] Address [address] [place] [facility] [place] [facility] [place] [address] Phone [phone] Care Team Providers Care Sales Promotion Representative Name Role Phone Dalila Bauman MD Primary Care Provider [phone] Reason for Visit * Reason Onset Date Comments case management 10/01/2023 Med Request 10/01/2023 DTP Encounter Details Date Type Department Care Team (Late st Contact Info) Description 10/01/2023 Telephone Cardiology, [facility] [address] [place] [address] Wiliam Schroeder MD [address] [place] [address] case management; Med Request (DTP) Allergies Active Allergy Reactions Criticality Noted Date Comments Latex 01/09/2021 Penicillins 01/09/2021 Sulfa Antibiotics 01/09/2021 documented as of this encounter (statuses as of 10/08/2023) Medications Medication Sig Dispensed Refills Start Date [...] 05/04/2023 Active Tradjenta 5 MG Oral Tablet (linaGLIPtin)Indic [...] of insulin ([facility]) Take 1 Tablet by mouth in the morning. 90 Tablet 3 06/08/2023 Active Prodigy Lancets 28GIndications:Typ e 2 diabetes mellitus with hemoglobin A1c goal of less than 8.0% ([facility]) Use to test blood glucose 3 times daily. DX: E11.9 300 Each 3 07/02/2023 Active amLODIPine Besylate 5 MG Oral Tablet (Norvasc) Take 2 Tablets by mouth in the morning. 0 Active Furosemide 40 MG Oral Tablet (Lasix) Take 1 Tablet by mouth. Thursday 3 TIMES A WEEK 0 Active Magnesium Chloride 64 MG Oral Tablet Take by mouth daily. 0 Active Sertraline HCl 50 MG Oral Tablet (Zoloft)Indication s:Adjustment disorder with anxious mood Take 1 Tablet by mouth in the morning. Inc at DC 09/07/23. 0 09/16/2023 Active Tresiba FlexTouch 100 UNIT/ML Subcutaneous Solution Pen-injector (Insulin Degludec)Indicatio ns:Type 2 diabetes mellitus with stage 3b chronic kidney disease, without long-term current use of insulin ([facility]),Type 2 diabetes mellitus with hemoglobin A1c goal of less than 8.0% (HCC) Inject 30 Units under the skin in the morning. 0 09/16/2023 Active Potassium Chloride Denise ER 20 MEQ Oral Tablet Extended ReleaseIndications :Diastolic CHF with preserved left ventricular function, NYHA class 2 (HCC),Hypokalemia Take 1 Tablet by mouth in the morning. Start 09/17/2023, lab 1 week. 30 Tablet 0 09/16/2023 Active Carvedilol 25 MG Oral Tablet (Coreg) Take 1.5 Tablets by mouth 2 times a day with morning and evening meals. 0 Discontinue d(Refill) documented as of this encounter (statuses as of 10/08/2023) Active Problems Problem Noted Date Diagnosed Date [...] as of this encounter (statuses as of 10/08/2023) Resolved Problems Problem Noted Date Diagnosed Date Resolved Date Chronic kidney disease, stage 3b 03/17/2022 05/21/2023 Overview: Per CKD protocol Type 2 diabetes mellitus wit h stage 3b chronic kidney disease, without long-term current use of insulin 07/26/2021 03/20/2022 Overview: Per CKD protocol documented as of this encounter (statuses as of 10/08/2023) Immunizations Name Administration Dates Next Due COVID-19 [...] as of this encounter Progress Notes * Mago Luis RN - 10/07/2023 11:06 AM EDT Images from the original note were not included. Attempted to call patient, no answer, left a message on machine. Cardiology; Congestion score continues to increase, please advise on diuretics. documented in this encounter Miscellaneous Notes * Telephone Encounter - Yasmeen Potter LPN - 10/08/2023 3:38 PM EDT Attempted to reach pt by phone. No answer LMOM for pt to call for information in this encounter. * Telephone Encounter - Wiliam Schroeder MD - 10/08/2023 12:55 PM EDT Please have patient take an additional 40 mg of furosemide this weekend. Will determine DTP at visit next week * Telephone Encounter - May Gipson PA-C - 10/02/2023 2:01 PM EDT Has upcoming visit with cardiology. Meds can be reviewed and diuretic protocol/dosing can be discussed at that time * Telephone Encounter - Mago Luis RN - 10/01/2023 8:45 AM EDT Cardio: patient has two recent admissions to [facility] for Congestive heart failure exacerbation and hypertensive crisis. She has a bodyport scale to measure her congestion index. We need to have an active DTP in place. Please review and place DTP order as seen fit for patient. Thank you so much! Mago Luis RN documented in this encounter Plan of Treatment Upcoming Encounters Date Type Department Care Team (Late st Contact Info) Description 10/13/2023 4:00 PM EDT Office Visit Nephrology, [address] [place], [place] [address] Cornel Smith MD [address] [place] [address] 10/14/2023 1:00 PM EDT Office Visit Cardiology, [facility] [place] [address] Wiliam Schroeder MD 132 [facility] [place] [address] 10/29/2023 1:30 PM EDT Laboratory Laboratory [facility] [address] [place] [address] [place] [facility] 200 [facility] [place] [address] 11/03/2023 2:00 PM EDT Office Visit General Internal Medicine [facility] [address] [place] [address] Dalila Bauman MD [address] [place], [place] [address] 11/10/2023 2:30 PM EDT Office Visit Pharmacy, [facility] [address] [place] [address] Pharmacist1, [facility] [address] [facility] [facility] [place] [address] 11/10/2023 3:00 PM EDT Office Visit Hematology/Oncology [facility] [place] [address] [place] [phone] Joshua Nunez MD [address] [place] [address] 02/04/2024 2:20 PM EDT Office Visit [facility] Ctr [facility] [place] [phone] Kayleen Stephens DO [facility] [place] [address] Health Maintenance Due Date Last Done Comments [...] history exists Depression Screening 08/24/2024 08/24/2023 PTH 09/15/2024 09/16/2023, 12/04, 03/25/2022, Additional history exists Phosphate 09/15/2024 09/16/2023, 12/04, 10/24/2022, Additional history exists VITAMIN D LEVEL ONCE IN A LIFETIME-USE SMARTSET# [id number] Completed 09/16/2023, 12/19/2022, 03/25/2022, Additional history exists [...] this encounter Medical Devices Implanted Type Area Mold Clamper Device Identifier Shelf Expiration Date Model / Serial / Lot Lens Intraoc 25.0 - [id number] - [id number] Implanted:Qty: 1 on 09/03/2021 by Deon Griffin MD at [facility] Left: Eye BAUSCH [employer] LOMB 10/02/2025 [id number] / [id number] / [id number] Lens Intraoc 26.0 - [id number] - [id number] Implanted:Qty: 1 on 09/17/2021 by Deon Griffin MD at [facility] Right: Eye BAUSCH [employer] LOMB 10/03/2025 [id number] / [id number] / [id number] documented as of this encounter Advance Directives Healthcare Agents on File Name Relationship Healthcare Agent Relationshi p Communication Nancy Hopkins Adult Child [facility] Care R epresentative (appointed verbally by patient or by statute hierarchy) Care Teams Sales Promotion Representative Relationship Specialty Start Date End Date Dalila Bauman MD 200 [facility] [place] [address] PCP - General Internal Medicine 01/09/21 documented as of this encounter
--- OUTSIDE RECORDS SUMMARY | 2023-10-31 14:28 | External Medical Summary | Summary of Care ---
Author Name Unknown Organization [facility] Address [address] [facility] [address] Phone [phone] Care Team Providers Care Utility Aircrewman Name Role Phone Dalila Bauman MD Primary Care Provider [phone] Reason for Visit * Reason Onset Date Comments Test Results 09/25/2023 Encounter Details Date Type Department Care Team (Late st Contact Info) Description 09/25/2023 Telephone General Internal Medicine [facility] [place] 200 [facility] [place] [address] Dalila Bauman MD 200 [place] [address] Test Results Allergies Active Allergy Reactions Criticality Noted Date Comments Latex 01/09/2021 Penicillins 01/09/2021 Sulfa Antibiotics 01/09/2021 documented as of this encounter (statuses as of 10/06/2023) Medications Medication Sig Dispensed Refills Start Date [...] goal of less than 8.0% ([facility]) Use with Lantus once daily 100 Each 3 09/02/2022 Active Prodigy No Coding Blood Gluc In Vitro Strip (Glucose Blood)Indications:T ype 2 diabetes mellitus with hemoglobin A1c goal of less than 8.0% ([facility]) Use to test blood glucose [...] long-term current use of insulin ([facility]) 1 tab on odd days only, start 06/13/2021--dec 3d/wk 10/18/2021 45 Tablet 3 10/13/2022 Active CoQ10 200 MG Oral Capsule Take by mouth. 0 Active Repaglinide 2 MG Oral Tablet (Prandin)Indication s:Type 2 diabetes mellitus with hemoglobin A1c goal of less than 8.0% ([facility]) take 1 tablet by mouth [...] goal of less than 8.0% ([facility]) Use to test blood glucose [...] long-term current use of insulin ([facility]),Type 2 diabetes mellitus with hemoglobin A1c goal of less than 8.0% ([facility]) Inject 30 Units under the skin in the morning. 0 09/16/2023 Active Potassium Chloride Denise ER 20 MEQ Oral Tablet Extended ReleaseIndications: Diastolic CHF with preserved left ventricular function, NYHA class 2 (HCC),Hypokalemia Take 1 Tablet by mouth in the morning. Start 09/17/2023, lab 1 week. 30 Tablet 0 09/16/2023 Active documented as of this encounter (statuses as of 10/06/2023) Active Problems Problem Noted Date Diagnosed Date [...] as of this encounter (statuses as of 10/06/2023) Resolved Problems Problem Noted Date Diagnosed Date Resolved Date Chronic kidney disease, stage 3b 03/17/2022 05/21/2023 Overview: Per CKD protocol Type 2 diabetes mellitus wit h stage 3b chronic kidney disease, without long-term current use of insulin 07/26/2021 03/20/2022 Overview: Per CKD protocol documented as of this encounter (statuses as of 10/06/2023) Immunizations Name Administration Dates Next Due COVID-19 [...] encounter Miscellaneous Notes * Telephone Encounter - Kilo Pablo RN - 10/06/2023 1:16 PM EDT Images from the original note were not included. Letter mailed to patient at address on file. Closing; inbasket clean-up. Provider to address: n/a Reason for Call: Test Results Contact: Letter Contact Type: Test Results Outcome: See above Face to face time spent with Patient (minutes): 0 Total Time including non face to face (minutes): 10 Kilo Pablo FIXED WING PILOT AR Primary Care Nurse Coordinator [facility] (Helping cover) * Telephone Encounter - Rosetta Tony MED ASSIST - 09/25/2023 2:58 PM EDT Called patient, left message to return call. * Telephone Encounter - Rosetta Tony MED ASSIST - 09/25/2023 2:56 PM EDT ----- Message from Dalila Bauman MD sent at 09/24/2023 11:28 PM EDT ----- Stable renal function, potassium improved to 4.1, continue supplement documented in this encounter Plan of Treatment Upcoming Encounters Date Type Department Care Team (Late st Contact Info) Description 10/08/2023 7:15 AM EDT Laboratory Lab [facility] [address] [facility] [place] [address] [facility], [facility] Draw [address] [place] [address] 10/13/2023 4:00 PM EDT Office Visit Nephrology, [facility] [place] [address] [place] [address] Cornel Smith MD [address] [place] [address] 10/14/2023 1:00 PM EDT Office Visit Cardiology, [facility] [address] [place] [address] Wiliam Schroeder MD [address] [place] [address] 10/29/2023 1:30 PM EDT Laboratory Laboratory [facility] [place] [address] [place], [place] [phone] Myrna Gonzalez [facility] [address] [facility] [address] [place], [place] [address] 11/03/2023 2:00 PM EDT Office Visit General Internal Medicine [facility] [address] [facility] [place] [address] Dalila Bauman MD [address] [facility] [address] [place], [place] [address] 11/10/2023 2:30 PM EDT Office Visit Pharmacy, [facility] [address] [facility] [address] [place], [place] [address] Pharmacist1, [facility] [address] [facility] [address] [place], [place] [address] 11/10/2023 3:00 PM EDT Office Visit Hematology/Oncology [facility] 200 [facility] [place] [address] Joshua Nunez MD [address] [facility] [address] [place], [place] [address] Health Maintenance Due Date Last Done Comments [...] D LEVEL ONCE IN A LIFETIME-USE SMARTSET# [id number] Completed 09/16/2023, 12/19/2022, 03/25/2022, Additional history exists [...] this encounter Medical Devices Implanted Type Area Site Technician Device Identifier Shelf Expiration Date Model / Serial / Lot Lens Intraoc 25.0 - [id number] - [id number] Implanted:Qty: 1 on 09/03/2021 by Deon Griffin MD at OR [facility] Left: Eye BAUSCH [employer] LOMB 10/02/2025 [id number] / [id number] / [id number] Lens Intraoc 26.0 - [id number] - [id number] Implanted:Qty: 1 on 09/17/2021 by Deon Griffin MD at OR [facility] Right: Eye BAUSCH [employer] LOMB 10/03/2025 [id number] / [id number] / [id number] documented as of this encounter Advance Directives Healthcare Agents on File Name Relationship Healthcare Agent Relationshi p Communication Nancy Hopkins Adult Child Health Care R epresentative (appointed verbally by patient or by statute hierarchy) Care Teams Utility Aircrewman Relationship Specialty Start Date End Date Dalila Bauman MD 200 [facility] [place] [address] PCP - General Internal Medicine 01/09/21 documented as of this encounter
--- OUTSIDE RECORDS SUMMARY | 2023-10-31 14:28 | External Medical Summary ---
Author Name Unknown Address Unknown Organization K0G:[facility]ATORY [place] [facility] - [address] [place] [address] Laboratory Report Ordering Provider Test Date Status ARNEL GREEN 10/14/2023 15:55:31 Final Observation Date Value Abnormality Reference (Units ) Status WBC, Total 10/14/2023 15:55:31 6.90 4.00-10.8 0 (K/uL) Final RBC 10/14/2023 15:55:31 2.76 3.85-5.15 (M/uL) Final Hemoglobin 10/14/2023 15:55:31 8.9 Below low normal 12 .0-15.3 (g/dL) Final HCT 10/14/2023 15:55:31 27.9 Below low normal 36. 0-45.2 (%) Final MCV 10/14/2023 15:55:31 101.1 81.5-97.5 (fL) Final MCH 10/14/2023 15:55:31 32.2 27.0-34.0 (pg) Final MCHC 10/14/2023 15:55:31 31.9 32.0-36.0 (g/dL) Final RDW 10/14/2023 15:55:31 13.8 11.5-15.5 (%) Final Platelets 10/14/2023 15:55:31 291 140-400 (K /uL) Final MPV 10/14/2023 15:55:31 8.7 6.6-11.1 ( fL) Final Performing Location [facility]ORY [facility] 0 - [address] [place] [address]
--- OUTSIDE RECORDS SUMMARY | 2023-10-31 14:28 | External Medical Summary | Summary of Care ---
Author Name Unknown Organization [facility] Address [address] [place] [address] Phone [phone] Care Team Providers Care Counter Hop Name Role Phone Dalila Bauman MD Primary Care Provider [phone] Reason for Visit * Reason Onset Date Comments case management 10/01/2023 Med Request 10/01/2023 DTP Encounter Details Date Type Department Care Team (Late st Contact Info) Description 10/01/2023 Telephone Cardiology, [facility] [address] [place] [address] Wiliam Schroeder MD [address] [place] [address] case management; Med Request (DTP) Allergies Active Allergy Reactions Criticality Noted Date Comments Latex 01/09/2021 Penicillins 01/09/2021 Sulfa Antibiotics 01/09/2021 documented as of this encounter (statuses as of 10/07/2023) Medications Medication Sig Dispensed Refills Start Date [...] without long-term current use of insulin ([facility]) Take 1 Tablet by mouth in the morning. 90 Tablet 3 06/08/2023 Active Prodigy Lancets 28GIndications:Typ e 2 diabetes mellitus with hemoglobin A1c goal of less than 8.0% ([facility]) Use to test blood glucose 3 [...] without long-term current use of insulin ([facility]),Type 2 diabetes mellitus with hemoglobin A1c [...] as of this encounter (statuses as of 10/07/2023) Active Problems Problem Noted Date Diagnosed Date [...] as of this encounter (statuses as of 10/07/2023) Resolved Problems Problem Noted Date Diagnosed Date Resolved Date Chronic kidney disease, stage 3b 03/17/2022 05/21/2023 Overview: Per CKD protocol Type 2 diabetes mellitus wit h stage 3b chronic kidney disease, without long-term current use of insulin 07/26/2021 03/20/2022 Overview: Per CKD protocol documented as of this encounter (statuses as of 10/07/2023) Immunizations Name Administration Dates Next Due COVID-19 [...] encounter Miscellaneous Notes * Telephone Encounter - May Gipson PA-C - 10/02/2023 2:01 PM EDT Has upcoming visit with cardiology. Meds can be reviewed and diuretic protocol/dosing can be discussed at that time * Telephone Encounter - Mago Luis RN - 10/01/2023 8:45 AM EDT Cardio: patient has two recent admissions to [facility] for Congestive heart failure exacerbation and hypertensive [...] AM EDT Laboratory Lab [facility] [address] [place] [address] [facility], [facility] [address] [facility] [place] [address] 10/13/2023 4:00 PM EDT Office Visit Nephrology, Marcia Gonzalez [address] [place] [address] Cornel Smith MD [address] [place] [address] [place] [address] 10/14/2023 1:00 PM EDT Office Visit Cardiology, [facility] [address] [address] Wiliam Schroeder MD [address] [place] [address] [address] 10/29/2023 1:30 PM EDT Laboratory Laboratory [facility] [address] [facility] [place] [phone] [facility] [address] [place] [address] 11/03/2023 2:00 PM EDT Office Visit General Internal Medicine [facility] [address] [facility] [place] [address] Dalila Bauman MD [address] [facility] [place] [address] 11/10/2023 2:30 PM EDT Office Visit Pharmacy, [facility] [address] [facility] [place] [address] Pharmacist1, [facility] 200 [facility] [place] [address] 11/10/2023 3:00 PM EDT Office Visit Hematology/Oncology [facility] [address] [facility] [place] [address] Joshua Nunez MD [address] [facility] [address] [place] [address] Health Maintenance Due Date Last Done Comments [...] Nephrology Referral 02/20/2024 02/19/2023 HbA1c 03/02/2024 09/02/2023, 10/12/2022, 12/19/2022, Additional history exists Influenza Vaccine (FLU shot) (Season Ended) 2024 DXA Scan 03/17/2024 03/17/2022, 03/17/2022 Diabetic Eye Exam 07/30/2024 07/30/2023, , 12/10/2022, Additional history exists Depression Screening 08/24/2024 08/24/2023 PTH 09/15/2024 09/16/2023, 12/04, 03/25/2022, Additional history exists Phosphate 09/15/2024 09/16/2023, 12/04, 10/24/2022, Additional history exists VITAMIN D LEVEL ONCE IN A LIFETIME-USE SMARTSET# 30176 Completed 09/16/2023, 12/19/2022, 03/25/2022, Additional history exists [...] this encounter Medical Devices Implanted Type Area Group Sales Manager Device Identifier Shelf Expiration Date Model / Serial / Lot Lens Intraoc 25.0 - [id number] - [id number] Implanted:Qty: 1 on 09/03/2021 by Deon Griffin MD at OR [facility] Left: Eye [employer]USCH [employer] LOMB 10/02/2025 [id number] / [id number] Lens Intraoc 26.0 - [id number] - [id number] Implanted:Qty: 1 on 09/17/2021 by Deon Griffin MD at OR [facility] Right: Eye BAUSCH [employer] LOMB 10/03/2025 [id number] / [id number] / [id number] documented as of this encounter Advance Directives Healthcare Agents on File Name Relationship Healthcare Agent Relationshi p Communication Nancy [facility] Adult [facility] R epresentative (appointed verbally by patient or by statute hierarchy) Care Teams Counter Hop Relationship Specialty Start Date End Date Dalila Bauman MD 200 [place] [address] PCP - General Internal Medicine 01/09/21 documented as of this encounter
--- OUTSIDE RECORDS SUMMARY | 2023-10-31 14:28 | External Medical Summary ---
Author Name Unknown Address Unknown Organization K0G:[facility] [place] [facility] - [address] [place] [address] Laboratory Report Ordering Provider Test Date Status ARNEL GREEN 10/14/2023 15:55:31 Final Observation Date Value Abnormality Reference (Units ) Status BUN 10/14/2023 15:55:31 25 Above high normal 6-20 (mg/dL) Final Creatinine 10/14/2023 15:55:31 1.6 Above high normal 0.5-1.0 (mg/dL) Final Glomerular filtration rate/1.73 sq M.predicted [Volume Rate/Area] in Serum, Plasma or Blood by Creatinine-based formula (CKD-EPI) 10/14/2023 15:55:31 32 Below low normal >=60 (mL/min) Final eGFR is calculated based on the CKD-EPI 2020 equation Sodium 10/14/2023 15:55:31 137 135-146 (m mol/L) Final Potassium 10/14/2023 15:55:31 3.8 3.5-5.1 (m mol/L) Final Cl 10/14/2023 15:55:31 100 98-107 (mm ol/L) Final CO2 10/14/2023 15:55:31 26 22-32 (mmo l/L) Final Anion gap 10/14/2023 15:55:31 11 7-15 (mmol /L) Final Glucose 10/14/2023 15:55:31 136 Above high normal 70 -120 (mg/dL) Final Calcium 10/14/2023 15:55:31 9.7 8.4-10.2 ( mg/dL) Final Performing Location [facility] [place] [facility] 0 - [address] [place] [address]
--- OUTSIDE RECORDS SUMMARY | 2023-10-31 14:28 | External Medical Summary ---
Author Name Unknown Address Unknown Organization [id number]:[facility] [place] - [address] [place] [address] Laboratory Report Ordering Provider Test Date Status JOHNY STAFFORD 10/08/2023 11:27:00 Final Normal: <150 mg/ g creatinine
High: 150-500 mg/g creatinine
Very High: >500 mg/g creatinine
Nephrotic: >3000 mg/g creatinine Observation Date Value Abnormality Reference (Units ) Status Protein/Creatinine [Ratio] in Urine 10/08/2023 11:27:00 1274 Above high normal <150 (mg/g ) Final Protein, Urine 10/08/2023 11:27:00 79 (mg/dL) Final Creatinine, Urine 10/08/2023 11:27:00 62 (mg/dL) Final Performing Location [facility] [place] - [address] [place] [address]
--- OUTSIDE RECORDS SUMMARY | 2023-10-31 14:28 | External Medical Summary | Summary of Care ---
Author Name Unknown Organization [facility] Address [address] [place] [facility] [place] [place] [address] Phone [phone] Care Team Providers Care Web Application Tester Name Role Phone Dalila Bauman MD Primary Care Provider [phone] Reason for Visit * Reason Onset Date Comments case management 10/01/2023 Med Request 10/01/2023 DTP Encounter Details Date Type Department Care Team (Late st Contact Info) Description 10/01/2023 Telephone Cardiology, [facility] [address] [place] [address] Wiliam Schroeder MD [address] [place] [address] case management; Med Request (DTP) Allergies Active [...] current use of insulin ([facility]) Take 1 Tablet by mouth [...] long-term current use of insulin ([facility]),Type 2 diabetes mellitus with hemoglobin [...] Miscellaneous Notes * Telephone Encounter - Mago Luis RN - 10/08/2023 4:07 PM EDT Called and spoke with the patient. Explained that Dr Schroeder is recommending that she take an additional 40 mg of lasix this weekend. Patient will take the additional lasix on Thursday. She states thather home health nurse just left and she thought she heard her heart skipping a beat. Patient denieschest pain. She states, "I think I might be in a-fib." Patient has never been diagnosed with a- fib before and is not on a blood thinner. Reviewed with patient that she should go to the Emergency roomfor evaluation, she does not think that is necessary at this time. She states that she does not feel like her heart is skipping a beat at this moment. She said that it can wait until her appointment on 10/[address] Schroeder. Explained the risks associated with being in a-fib, patient verbalizes understanding. Explained the importance of calling 911 with chest pain, worsening shortness of breath, slurred speech, etc. Patient verbalizes understanding. She states, "I hope I am feeling well enough to go to the appointment with Dr Schroeder on 10/13." Explained to patient that it is imperative that she attends her appointment. She verbalizes importance of attending appointment, she states that it is difficult because the only oxygen tank she has is a large portable. She will attend appointment and take the additional 40 mg of lasix on Thursday. * Telephone Encounter - Yasmeen Potter LPN [...] Cardio: patient has two recent admissions to [facility] for Congestive heart failure exacerbation and hypertensive crisis. She has a bodyport scale to measure her congestion index. We need to have an active DTP in place. Please review and place DTP order as seen fit for patient. Thank you so much! Mago Luis, RN documented in this encounter Plan of Treatment Upcoming Encounters Date Type Department Care Team (Late st Contact Info) Description 10/13/2023 4:00 PM EDT Office Visit Nephrology, [facility] [address] [place] [address] [place] [address] Cornel Smith MD [address] [place] [address] 10/14/2023 1:00 PM EDT Office Visit Cardiology, [facility] [address] [place] [address] [address] Wilaim Schroeder MD [address] [place] [address] [address] 10/29/2023 1:30 PM EDT Laboratory [facility] [place] 200 [facility] [place] [phone] Myrna Gonzalez [facility] [address] [facility] [address] [place], [place] [address] 11/03/2023 2:00 PM EDT Office Visit General Internal Medicine [facility] [address] [facility] [place] [address] Dalila Bauman MD 200 [facility] [place] [address] 11/10/2023 2:30 PM EDT Office Visit Pharmacy, [facility] [place] [address] [facility] [place] [address] Pharmacist1, [facility] [address] [facility] [place] [address] 11/10/2023 3:00 PM EDT Office Visit Hematology/Oncology [facility] 200 [facility] [place] [phone] Joshua Nunez MD 200 [facility] [place] [address] 02/04/2024 2:20 PM EDT Office Visit Sleep Disorders Ctr [facility] [place] [address] [place] [phone] Kayleen Stephens, [address] [place] [phone] Health Maintenance Due Date Last Done Comments [...] D LEVEL ONCE IN A LIFETIME-USE SMARTSET# 11369 Completed 09/16/2023, 12/19/2022, 03/25/2022, Additional history exists [...] this encounter Medical Devices Implanted Type Area Steel Melter Device Identifier Shelf Expiration Date Model / Serial / Lot Lens Intraoc 25.0 - [id number] - [id number] Implanted:Qty: 1 on 09/03/2021 by Deon Griffin MD at OR [facility] Left: Eye BAUSCH [employer] LOMB 10/02/2025 [id number] / [id number] / [id number] Lens Intraoc 26.0 - [id number] - [id number] Implanted:Qty: 1 on 09/17/2021 by Deon Griffin MD at OR [facility] Right: Eye BAUSCH [employer] LOMB 10/03/2025 [id number] / [id number] / [id number] documented as of this encounter Advance Directives Healthcare Agents on File Name Relationship Healthcare Agent Relationshi p Communication Nancy [facility] Adult Child Health Care R epresentative (appointed verbally by patient or by statute hierarchy) Care Teams Web Application Tester Relationship Specialty Start Date End Date Dalila Bauman MD [address] [place] [address] PCP - General Internal Medicine 01/09/21 documented as of this encounter
--- OUTSIDE RECORDS SUMMARY | 2023-10-31 14:28 | External Medical Summary ---
Author Name Unknown Address Unknown Organization K01:[facility] [place] - [address] [place] [address] Laboratory Report Ordering Provider Test Date Status ARNEL GREEN 10/14/2023 15:55:31 Final Observation Date Value Abnormality Reference (Units ) Status Folic Acid 10/14/2023 15:55:31 7.2 >4.5 (ng/ mL) Final Performing Location [facility] - [address] [place] [address]
--- OUTSIDE RECORDS SUMMARY | 2023-10-31 14:28 | External Medical Summary | Summary of Care ---
Author Name Unknown Organization [facility] Address [address] [place] [facility] [address] Phone [phone] Care Team Providers Care Build Technician Name Role Phone Dalila Bauman MD Primary Care Provider [phone] Reason for Visit * Reason Onset Date Comments case management 10/01/2023 Med Request 10/01/2023 DTP Encounter Details Date Type Department Care Team (Late st Contact Info) Description 10/01/2023 Telephone Cardiology, [facility] [address] [place] [address] Wiliam Schroeder MD [address] [place] [address] case management; Med Request (DTP) Allergies Active [...] insulin ([facility]) Take 1 Tablet by mouth in the [...] of insulin ([facility]),Type 2 diabetes mellitus with hemoglobin A1c goal [...] encounter Miscellaneous Notes * Telephone Encounter - Wiliam Schroeder MD [...] Cardio: patient has two recent admissions to [facility] for Congestive heart failure exacerbation and [...] EDT Office Visit Nephrology, Marcia Gonzalez [address] [place] [address] Cornel Smith MD [address] [place] [address] [address] 10/14/2023 1:00 PM EDT Office Visit Cardiology, [facility] [place] 132 [facility] [place] [address] Wiliam Schroeder MD [address] [place] [address] 10/29/2023 1:30 PM EDT Laboratory Laboratory [facility] [address] [place] [phone] Ariel, Lab [facility] 200 [facility] [place], [place] [address] 11/03/2023 2:00 PM EDT Office Visit General Internal Medicine [facility] 200 [facility] [place], [place] [address] Dalila Bauman MD 200 [facility] [place], [place] [address] 11/10/2023 2:30 PM EDT Office Visit Pharmacy, [facility] 200 [facility] [place], [place] [address] Pharmacist1, [facility] 200 [facility] [place], [place] [address] 11/10/2023 3:00 PM EDT Office Visit Hematology/Oncology [facility] 200 [facility] [place], [place] [address] Joshua Nunez MD 200 [facility] [place], [place] [address] 02/04/2024 2:20 PM EDT Office Visit Sleep Disorders Ctr [facility] [address] [place] [phone] Kayleen Stepehns DO [address] [place] [address] Health Maintenance Due Date Last Done Comments [...] D LEVEL ONCE IN A LIFETIME-USE SMARTSET# 76779 Completed 09/16/2023, 12/19/2022, 03/25/2022, Additional history exists [...] this encounter Medical Devices Implanted Type Area Diesel Locomotive Firer Device Identifier Shelf Expiration Date Model / Serial / Lot Lens Intraoc 25.0 - [id number] - [id number] Implanted:Qty: 1 on 09/03/2021 by Deon Griffin MD at OR [facility] Left: Eye BAUSCH [employer] LOMB 10/02/2025 [id number] / [id number] / [id number] Lens Intraoc 26.0 - [id number] - [id number] Implanted:Qty: 1 on 09/17/2021 by Deon Griffin MD at OR [facility] Right: Eye BAUSCH [employer] LOMB 10/03/2025 [id number] / [id number] / [id number] documented as of this encounter Advance Directives Healthcare Agents on File Name Relationship Healthcare Agent [facility] p Communication [facility] R epresentative (appointed verbally by patient or by statute hierarchy) Care Teams Build Technician Relationship Specialty Start Date End Date Dalila Bauman MD [address] [place] [address] PCP - General Internal Medicine 01/09/21 documented as of this encounter
--- OUTSIDE RECORDS SUMMARY | 2023-10-31 14:28 | External Medical Summary ---
Author Name Unknown Address Unknown Organization K01:[facility] [place] - [address] [place] [address] Laboratory Report Ordering Provider Test Date Status ARNEL GREEN 10/14/2023 15:55:31 Final Observation Date Value Abnormality Reference (Units ) Status Iron 10/14/2023 15:55:31 46 33-151 (ug/dL) Final Iron-binding capacity 10/14/2023 15:55:31 227 Below low normal 250-425 (ug/dL) Final Transferrin Sat % 10/14/2023 15:55:31 20 15-55 (%) Final Performing Location LAB[facility]ORY [facility] [place] - [address] [place] [address]
--- OUTSIDE RECORDS SUMMARY | 2023-10-31 14:28 | External Medical Summary ---
Author Name Unknown Address Unknown Organization K0G:[facility] [place] [facility] - [address] [place] [address] Laboratory Report Ordering Provider Test Date Status ARNEL GREEN 10/14/2023 15:55:31 Final Observation Date Value Abnormality Reference (Units ) Status SYNC LEUKOCYTES IN BLOOD BY AUTOMATED COUNT 10/14/2023 15:55:31 6.90 4.00-10.80 (K/uL) Final Segs 10/14/2023 15:55:31 67.1 40.0-75.0 (%) Final Lymphs % 10/14/2023 15:55:31 21.3 18.0-42.0 (%) Final Monos 10/14/2023 15:55:31 10.3 1.0-11.0 (%) Final Eosinophils 10/14/2023 15:55:31 1.0 0.0-6.0 (%) Final Basos 10/14/2023 15:55:31 0.3 0.0-2.0 (%) Final Absolute Segs 10/14/2023 15:55:31 4.63 1.80-7.70 (K/uL) Final Lymphs, absolute 10/14/2023 15:55:31 1.47 1.00-4.80 (K/ul) Final Monos, Abs 10/14/2023 15:55:31 0.71 0.00-1.10 (K/uL) Final Eos, Abs 10/14/2023 15:55:31 0.07 0.00-0.70 (K/uL) Final Basos, Abs 10/14/2023 15:55:31 0.02 0.00-0.20 (K/uL) Final Performing Location [facility] 0 - [address] [place] [address]
--- OUTSIDE RECORDS SUMMARY | 2023-10-31 14:28 | External Medical Summary ---
Author Name Unknown Address Unknown Organization K01:[facility] [place] - [address] [place] [address] Laboratory Report Ordering Provider Test Date Status ARNEL GREEN 10/14/2023 15:55:31 Final Observation Date Value Abnormality Reference (Units ) Status Vitamin B12 10/14/2023 15:55:31 437 869-0144 (pg/mL) Final Performing Location [facility] - [address] [place] [address]
--- OUTSIDE RECORDS SUMMARY | 2023-10-31 14:28 | External Medical Summary | Summary of Care ---
Author Name Unknown Organization [facility] Address [address] [place] [facility] [place] [address] Phone [phone] Care Team Providers Care Bobtail Driver Name Role Phone Dalila Bauman MD Primary Care Provider [phone] Reason for Visit * Reason Onset Date Comments case management 10/01/2023 Med Request 10/01/2023 DTP Encounter Details Date Type Department Care Team (Late st Contact Info) Description 10/01/2023 Telephone Cardiology, [facility] [address] [place] [address] Wiliam Schroeder MD [address] [employer] [place] [address] case management; Med Request (DTP) Allergies Active [...] current use of insulin ([facility]) Take 1 Tablet by mouth in the [...] long-term current use of insulin ([facility]),Type 2 diabetes mellitus with hemoglobin A1c goal [...] Telephone Encounter - Kadi Smith MD - 10/08/2023 7:04 PM EDT Noted * Telephone Encounter - Mago Luis RN - 10/08/2023 4:07 PM EDT Called and spoke with the patient. Explained that Dr Schroeder is recommending that she take an additional 40 mg of lasix this . Patient will take the additional lasix on [...] Cardio: patient has two recent admissions to [facility] for Congestive heart failure exacerbation and hypertensive [...] Visit Nephrology, Marcia Gonzalez [address] [place] [address] Cornel Smith MD [address] [place] [address] 10/14/2023 1:00 PM EDT Office Visit Cardiology, [facility] [place] [address] Wiliam Schroeder MD [address] [place] [address] 10/29/2023 1:30 PM EDT Laboratory Laboratory [facility] 200 [facility] [place], [place] [phone] [facility] [address] [facility] [place], [place] [address] 11/03/2023 2:00 PM EDT Office Visit General Internal Medicine [facility] 200 [facility] [place], [place] [address] Dalila Bauman MD [address] [facility] [place] [address] 11/10/2023 2:30 PM EDT Office Visit Pharmacy, [facility] [address] [facility] [place], [place] [address] Pharmacist1, [facility] 200 [facility] [place], [place] [address] 11/10/2023 3:00 PM EDT Office Visit Hematology/Oncology [facility] 200 [facility] [place], [place] [phone] Joshua Nunez MD [address] [facility] [place], [place] [address] 02/04/2024 2:20 PM EDT Office Visit Sleep Disorders Ctr [facility] [address] [place] [phone] Kayleen Stephens DO [address] [place] [address] Health Maintenance Due Date Last Done Comments [...] D LEVEL ONCE IN A LIFETIME-USE SMARTSET# 12723 Completed 09/16/2023, 12/19/2022, 03/25/2022, Additional history exists [...] this encounter Medical Devices Implanted Type Area Inker Machine Device Identifier Shelf Expiration Date Model / Serial / Lot Lens Intraoc 25.0 - [id number] - [id number] Implanted:Qty: 1 on 09/03/2021 by Deon Griffin MD at [facility] Left: Eye [employer]USCH [employer] LOMB 10/02/2025 [id number] / [id number] / [id number] Lens Intraoc 26.0 - [id number] - [id number] Implanted:Qty: 1 on 09/17/2021 by Deon Griffin MD at OR [facility] Right: Eye BAUSCH [employer] LOMB 10/03/2025 [id number] / [id number] / [id number] documented as of this encounter Advance Directives Healthcare Agents on File Name Relationship Healthcare Agent [facility] p Communication Nancy [facility] Adult Child Health Care R epresentative (appointed verbally by patient or by statute hierarchy) Care Teams Bobtail Driver Relationship Specialty Start Date End Date Dalila Bauman MD 200 [facility] [place] [address] PCP - General Internal Medicine 01/09/21 documented as of this encounter
--- OUTSIDE RECORDS SUMMARY | 2023-10-31 14:28 | External Medical Summary | Summary of Care ---
Author Name Unknown Organization [facility] Address [address] [place] [address] Phone [phone] Care Team Providers Care Stringer Machine Tender Name Role Phone Dalila Bauman MD Primary Care Provider [phone] Reason for Visit * Reason Comments eRx-Medication Refill Encounter Details Date Type Department Care Team (Late st Contact Info) Description 10/09/2023 Refill General Internal Medicine [facility] [place] 200 [facility] [place] [phone] Dalila Bauman MD 200 [place] [address] Diastolic CHF with preserved left ventricular function, NYHA class 2 ([facility]); Hypokalemia Allergies Active Allergy Reactions Criticality Noted Date Comments Latex 01/09/2021 Penicillins 01/09/2021 Sulfa Antibiotics 01/09/2021 documented as of this encounter (statuses as of 10/10/2023) Medications Medication Sig Dispensed Refills Start Date End Date Status Aspirin EC 81 MG Oral Tablet Delayed ReleaseIndication s:Type 2 diabetes mellitus with retinopathy of both eyes, without long-term current use of insulin, macular edema presence unspecified, unspecified retinopathy severity ([facility]),Dyslipidemi a, goal LDL below 100 Take 1 [...] than 8.0% ([facility]) Use as directed every 14 [...] the morning. 90 Tablet 1 10/10/2023 Active Potassium Chloride Denise ER 20 MEQ Oral Tablet Extended ReleaseIndication s:Diastolic CHF with preserved left ventricular function, NYHA class 2 (HCC),Hypokalemia Take 1 Tablet by mouth in the morning. Start 09/17/2023, lab 1 week. 30 Tablet 0 09/16/2023 10/10/19 24 Discontinued documented as of this encounter (statuses as of 10/10/2023) Active Problems Problem Noted Date Diagnosed Date [...] as of this encounter (statuses as of 10/10/2023) Resolved Problems Problem Noted Date Diagnosed Date Resolved Date Chronic kidney disease, stage 3b 03/17/2022 05/21/2023 Overview: Per CKD protocol Type 2 diabetes mellitus wit h stage 3b chronic kidney disease, without long-term current use of insulin 07/26/2021 03/20/2022 Overview: Per CKD protocol documented as of this encounter (statuses as of 10/10/2023) Immunizations Name Administration Dates Next Due COVID-19 [...] encounter Miscellaneous Notes * Telephone Encounter - Addy Denis RP - 10/10/2023 12:35 PM EDT Signed Prescriptions: Disp Refills Potassium Chloride Denise ER 20 MEQ Oral Tab*90 Tab*1 Sig: Take 1 Tablet by mouth in the morning.Authorizing Provider: Luana BAUMAN User: ADDY DENIS-- * Telephone Encounter - Addy Denis RPh - 10/10/2023 12:33 PM EDT Per Te 09/25/23 " ----- Message from Dalila Bauman MD sent at 09/24/2023 11:28 PM EDT ----- Stable renal function, potassium improved to 4.1, continue supplement " Refills authorized. Thank You Addy Denis, PharmD Clinical Pharmacist [facility] ([facility]) (formerly Telepharmacy) [phone] / [phone] 10/10/2023, 12:35 PM documented in this encounter Plan of Treatment Upcoming Encounters Date Type Department Care Team (Late st Contact Info) Description 10/13/2023 4:00 PM EDT Office Visit Nephrology, Marcia Gonzalez [address] [place] [address] Cornel Smith MD [address] [place] [address] 10/14/2023 1:00 PM EDT Office Visit Cardiology, [facility] [address] [facility] [place] [address] Wiliam Schroedre MD [address] [place] [address] 10/29/2023 1:30 PM EDT Laboratory Laboratory [facility] [address] [place] [phone] [place], [facility] 200 [facility] [place], [place] [address] 11/03/2023 2:00 PM EDT Office Visit General Internal Medicine [facility] 200 [facility] [place], [place] [address] Dalila Bauman MD 200 [facility] [place], [place] [address] 11/10/2023 2:30 PM EDT Office Visit Pharmacy, [facility] 200 [facility] [place], [place] [address] Pharmacist1, [facility] 200 [facility] [place], [place] [address] 11/10/2023 3:00 PM EDT Office Visit Hematology/Oncology [facility] 200 [facility] [place], [place] [phone] Joshua Nunez MD 200 [facility] [place], [place] [address] 02/04/2024 2:20 PM EDT Office Visit Sleep Disorders Ctr [facility] [address] [place] [phone] Kayleen Stephens DO [address] [place] [address] Health Maintenance Due Date Last Done Comments [...] D LEVEL ONCE IN A LIFETIME-USE SMARTSET# [id number] Completed 09/16/2023, 12/19/2022, 03/25/2022, Additional history exists [...] this encounter Medical Devices Implanted Type Area Inclusion Internship Device Identifier Shelf Expiration Date Model / Serial / Lot Lens Intraoc 25.0 - [id number] - [id number] Implanted:Qty: 1 on 09/03/2021 by Deon Griffin MD at OR [facility] Left: Eye [employer] 10/02/2025 [id number] / [id number] Lens Intraoc 26.0 - [id number] - [id number] Implanted:Qty: 1 on 09/17/2021 by Deon Griffin MD at OR [facility] Right: Eye [employer]OMB 10/03/2025 [id number] / [id number] / [id number] documented as of this encounter Visit Diagnoses Diagnosis Diastolic CHF with preserved left ventricular function, NYHA class 2 (HCC) Unspecified diastolic heart failure Hypokalemia Hypopotassemia documented in this encounter Advance Directives Healthcare Agents on File Name Relationship Healthcare Agent [facility] Communication Nancy [facility] Adult Child Health Care R epresentative (appointed verbally by patient or by statute hierarchy) Care Teams Stringer Machine Tender Relationship Specialty Start Date End Date Dalila Bauman MD [address] [place] [address] PCP - General Internal Medicine 01/09/21 documented as of this encounter
--- OUTSIDE RECORDS SUMMARY | 2023-10-31 14:28 | External Medical Summary ---
Author Name Unknown Address Unknown Organization K01:[facility] - [address] [place] [address] Laboratory Report Ordering Provider Test Date Status ARNEL GREEN 10/14/2023 15:55:31 Final Observation Date Value Abnormality Reference (Units) Status PARAPROTEIN NORMAL/ABNORMAL 10/14/2023 15:55:31 Abnormal Abnormal Normal Final Immunofixation for Serum or Plasma 10/14/2023 15:55:31 Abnormal, a monoclonal IgG kappa gammopathy is present. Final Performing Location [facility] - [address] [place] [address]
--- OUTSIDE RECORDS SUMMARY | 2023-10-31 14:28 | External Medical Summary | Summary of Care ---
Author Name Unknown Organization [facility] [address] [facility] [address] Phone [phone] Care Team Providers Care Senior Net Developer Architect Name Role Phone Dalila Bauman MD Primary Care Provider [phone] Reason for Visit * Reason Onset Date Comments Medication Refill 10/03/2023 Encounter Details Date Type Department Care Team (Late st Contact Info) Description 10/03/[address] [facility] [place] [address] [facility] [place] [address] Dalila [facility]uman MD [facility] [address] Medication Refill Allergies Active Allergy Reactions Criticality Noted Date Comments Latex 01/09/2021 Penicillins 01/09/2021 Sulfa Antibiotics 01/09/2021 documented as of this encounter (statuses as of 10/03/2023) Medications Medication Sig Dispensed Refills Start Date [...] hemoglobin A1c goal of less than 8.0% ([facility]) Use with Lantus once daily 100 Each 3 09/02/2022 Active Prodigy No Coding Blood Gluc In Vitro Strip (Glucose Blood)Indications: Type 2 diabetes mellitus with hemoglobin A1c goal of less than 8.0% ([facility]) Use to test blood glucose 3 times [...] hemoglobin A1c goal of less than 8.0% ([facility]) take 1 tablet by mouth three times [...] hemoglobin A1c goal of less than 8.0% ([facility]) Use to test blood glucose 3 times [...] disease, without long-term current use of insulin ([facility]),Type 2 diabetes mellitus with hemoglobin A1c goal of less than 8.0% ([facility]) Inject 30 Units under the skin in [...] evening meals. 270 Tablet 1 10/03/2023 Active Carvedilol 25 MG Oral Tablet (Coreg) Take 1.5 Tablets by mouth 2 times a day with morning and evening meals. 0 Discontinue d(Refill) documented as of this encounter (statuses as of 10/03/2023) Active Problems Problem Noted Date Diagnosed Date [...] as of this encounter (statuses as of 10/03/2023) Resolved Problems Problem Noted Date Diagnosed Date Resolved Date Chronic kidney disease, stage 3b 03/17/2022 05/21/2023 Overview: Per CKD protocol Type 2 diabetes mellitus wit h stage 3b chronic kidney disease, without long-term current use of insulin 07/26/2021 03/20/2022 Overview: Per CKD protocol documented as of this encounter (statuses as of 10/03/2023) Immunizations Name Administration Dates Next Due COVID-19 [...] encounter Miscellaneous Notes * Telephone Encounter - Samantha Vaughn, [facility] - 10/03/2023 8:59 AM EDT Per OV notes 09/16/23: 09/07/23-Labetalol discontinued, started Coreg 37.5 mg twice a day, Provider noted coreg dose change noted during hospital course. Sig updated and refills sent. Thank you, Samantha Vaughn PharmD Clinical Pharmacist [facility] ([facility]) 10/03/23 9:00 AM [phone] * Telephone Encounter - Jackelin Tee PHARM Tech - 10/03/2023 8:47 AM EDT Patient calling requesting the following medication below that is listed as "Historical". Pt is outof medication. The following information was provided: Medication Name: Carvedilol Strength: 25mg Directions: Take one and a half tablets daily BID Preferred Quantity: 270 Previous Prescriber: Hospitalist Pt seen for hospital follow up on 09/15 Preferred Pharmacy: [id number] Please review and approve if appropriate. Thanks, Jackelin Tee Quartz Miner III [facility] ([facility]) 10/03/2023,8:47 AM documented in this encounter Plan of Treatment Upcoming Encounters Date Type Department Care Team (Late st Contact Info) Description 10/06/2023 1:40 PM EDT Office Visit Nephrology, Marcia Gonzalez [address] [place] [address] Cornel Smith MD [address] [place] [address] 10/14/2023 1:00 PM EDT Office Visit Cardiology, [facility] [place] [address] [place] [address] [address] Wiliam Schroeder MD [address] [place] [address] 10/29/2023 1:30 PM EDT Laboratory Laboratory [facility] [address] [place] [phone] [place], Lab [facility] 200 [place] [address] 11/03/2023 2:00 PM EDT Office Visit General Internal Medicine [facility] [address] [facility] [place] [address] Dalila Bauman MD [address] [facility] [place], [place] [address] 11/10/2023 2:30 PM EDT Office Visit Pharmacy, [facility] [address] [facility] [place], [place] [address] Pharmacist1, [facility] 200 [facility] [address] 11/10/2023 3:00 PM EDT Office Visit Hematology/Oncology [facility] [address] [facility] [place], [place] [phone] Joshua Nunez MD [address] [place] [address] Health Maintenance Due Date Last Done Comments Pneumococcal Vaccine: 65+ Years (1 of 2 - PCV) 02/18/1941 Hgb 02/18/1952 DTaP,Tdap,and Td Vaccines (1 - Tdap) 1954 Zoster Vaccines (1 of 2) 02/18/1984 Diabetic Foot Exam 10/16/2022 10/16/2021 COVID-19 Vaccine (2022-24 season) 2023 12/18/2021, 07/11/2021, 12/11/2020, Additional history exists Influenza Vaccine (FLU shot) (#1) 2023 Albumin/Creatinine Ratio 09/01/2023 09/01/2022, 07/07 *BISPHONATE OR OTHER ACCEPTABLE MEDICATION NEEDED FOR OSTEOPOROSIS (REFER TO SMARTSET #1146) 09/19/2023 Nephrology Referral 02/20/2024 02/19/2023 HbA1c 03/02/2024 09/02/2023, 10/12/2022, 12/19/2022, Additional history exists DXA Scan 03/17/2024 03/17/2022, 03/17/2022 Diabetic Eye Exam 07/30/2024 07/30/2023, , 12/10/2022, Additional history exists Depression Screening 08/24/2024 08/24/2023 PTH 09/15/2024 09/16/2023, 12/04, 03/25/2022, Additional history exists Phosphate 09/15/2024 09/16/2023, 12/04, 10/24/2022, Additional history exists VITAMIN D LEVEL ONCE IN A LIFETIME-USE SMARTSET# 76095 Completed 09/16/2023, 12/19/2022, 03/25/2022, Additional history exists [...] this encounter Medical Devices Implanted Type Area Fern Picker Device Identifier Shelf Expiration Date Model / Serial / Lot Lens Intraoc 25.0 - [id number] - [id number] Implanted:Qty: 1 on 09/03/2021 by Deon Griffin MD at OR [facility] Left: Eye [employer] 10/02/2025 [id number] / [id number] / [id number] Lens Intraoc 26.0 - [id number] - [id number] Implanted:Qty: 1 on 09/17/2021 by Deon Griffin MD at OR [facility] Right: Eye [employer] LOMB 10/03/2025 [id number] / [id number] / [id number] documented as of this encounter Advance Directives Healthcare Agents on File Name Relationship Healthcare Agent Relationshi p Communication [facility] Adult Child Health Care R epresentative (appointed verbally by patient or by statute hierarchy) Care Teams Senior Net Developer Architect Relationship Specialty Start Date End Date Dalila Bauman MD 200 [place] [address] PCP - General Internal Medicine 01/09/21 documented as of this encounter
--- OUTSIDE RECORDS SUMMARY | 2023-10-31 14:29 | External Medical Summary | Summary of Care ---
Author Name Unknown Organization [facility] Address [address] [facility] [place] [address] Phone [phone] Care Team Providers Care Receptionist Telephone Operator Name Role Phone Dalila Bauman MD Primary Care Provider [phone] Reason for Visit * Reason Onset Date Comments Test Results 09/22/2023 Encounter Details Date Type Department Care Team (Late st Contact Info) Description 09/22/2023 Telephone NephrologyMarcia 200 [facility] [place] [address] Cornel Smith MD 200 [facility] [place] [address] Test Results Allergies Active Allergy Reactions Criticality Noted Date Comments Latex 01/09/2021 Penicillins 01/09/2021 Sulfa Antibiotics 01/09/2021 documented as of this encounter (statuses as of 09/24/2023) Medications Medication Sig Dispensed Refills Start Date [...] by mouth in the morning. 0 Active Carvedilol 25 MG Oral Tablet (Coreg) Take 1.5 Tablets by mouth 2 times a day with morning and evening meals. 0 Active Furosemide 40 MG Oral Tablet [...] less than 8.0% ([facility]) Inject 30 Units under the skin in the morning. 0 09/16/2023 Active Potassium Chloride Denise ER 20 MEQ Oral Tablet Extended ReleaseIndications: Diastolic CHF with preserved left ventricular function, NYHA class 2 (HCC),Hypokalemia Take 1 Tablet by mouth in the morning. Start 09/17/2023, lab 1 week. 30 Tablet 0 09/16/2023 Active documented as of this encounter (statuses as of 09/24/2023) Active Problems Problem Noted Date Diagnosed Date [...] as of this encounter (statuses as of 09/24/2023) Resolved Problems Problem Noted Date Diagnosed Date Resolved Date Chronic kidney disease, stage 3b 03/17/2022 05/21/2023 Overview: Per CKD protocol Type 2 diabetes mellitus wit h stage 3b chronic kidney disease, without long-term current use of insulin 07/26/2021 03/20/2022 Overview: Per CKD protocol documented as of this encounter (statuses as of 09/24/2023) Immunizations Name Administration Dates Next Due COVID-19 [...] encounter Miscellaneous Notes * Telephone Encounter - Radha Yeager LPN - 09/24/2023 3:49 PM EDT Pt is aware of lab results and DR Smith's recommendations will get repeat labs prior to 10/06/23 apt * Telephone Encounter - Radha Yeager LPN - 09/24/2023 2:49 PM EDT LMM to return call to office regarding lab results * Telephone Encounter - Radha Yeager LPN - 09/22/2023 3:35 PM EDT LMM to return call regarding test results Labs orders placed in [facility] lab system to be done prior to follow up apt * Telephone Encounter - Radha Yeager LPN - 09/22/2023 3:34 PM EDT ----- Message from Cornel Smith MD sent at 09/22/2023 2:56 PM EDT ----- Kidney function and Na stable/normal. Continue same . Will discuss further during appt Can have renal panel, PTH, prot/creat 1-2 day before the appt documented in this encounter Plan of Treatment Upcoming Encounters Date Type Department Care Team (Late st Contact Info) Description 09/28/2023 1:40 PM EDT Office Visit [facility] [address] [place] [phone] Kayleen Stephens DO [address] [place] [address] 10/06/2023 1:40 PM EDT Office Visit Nephrology, Marcia Gonzalez [address] [place] [address] Cornel Smith MD [address] [place] [address] [address] 10/14/2023 1:00 PM EDT Office Visit Cardiology, [facility] [address] [place] [address] Wiliam Schroeder MD [address] [place] [address] 10/29/2023 1:30 PM EDT Laboratory Laboratory [facility] 200 [facility] [place] [phone] [place], Lab [facility] [address] [facility] [place], [place] [address] 11/03/2023 2:00 PM EDT Office Visit General Internal Medicine [facility] 200 [facility] [place] [address] Dalila Bauman MD 200 [facility] [place], [place] [address] 11/10/2023 2:30 PM EDT Office Visit Pharmacy, [facility] 200 [facility] [place], [place] [address] Pharmacist1, [facility] [address] [facility] [place], [place] [address] 11/10/2023 3:00 PM EDT Office Visit Hematology/Oncology [facility] 200 [facility] [place], [place] [phone] Joshua Nunez MD 200 [facility] [place], [place] [address] Scheduled Orders Name Type Priority Associated Diagnoses Orde r Schedule RENAL FUNCTION PANEL Lab Routine Chronic kidney disease, stage 4 (severe) ([facility]) Expected: 09/22/2023 (Approximate), Expires: 09/21/2024 PTH Lab Routine Chronic kidney disease, stage 4 (severe) (HCC) Expected: 09/22/2023 (Approximate), Expires: 09/21/2024 PROTEIN/ CREATININE RATIO, URINE Lab Routine Chronic kidney disease, stage 4 (severe) (HCC) Expected: 09/22/2023 (Approximate), Expires: 09/21/2024 Health Maintenance Due Date Last Done Comments [...] 03/02/2024 09/02/2023, 04/06, 12/19/2022, Additional history exists DXA Scan 03/17/2024 03/17/2022, 03/17/2022 Diabetic Eye Exam 07/30/2024 07/30/2023, , 12/10/2022, Additional history exists Depression Screening 08/24/2024 08/24/2023 PTH 09/15/2024 09/16/2023, 12/04, 03/25/2022, Additional history exists Phosphate 09/15/2024 09/16/2023, 12/04, 10/24/2022, Additional history exists VITAMIN D LEVEL ONCE IN A LIFETIME-USE SMARTSET# [id number] Completed 09/16/2023, 12/19/2022, 03/25/2022, Additional history exists [...] this encounter Medical Devices Implanted Type Area Fleecer Device Identifier Shelf Expiration Date Model / Serial / Lot Lens Intraoc 25.0 - [id number] - [id number] Implanted:Qty: 1 on 09/03/2021 by Deon Griffin MD at OR [facility] Left: Eye [employer]OM[employer] 10/02/2025 [id number] / [id number] / [id number] Lens Intraoc 26.0 - [id number] - [id number] Implanted:Qty: 1 on 09/17/2021 by Deon Griffin MD at OR [facility] Right: Eye BAUSCH [employer] LOMB 10/03/2025 [id number] / [id number] / [id number] documented as of this encounter Visit Diagnoses Diagnosis Chronic kidney disease, stage 4 (severe) (HCC)- Primary documented in this encounter Advance Directives Healthcare Agents on File Name Relationship [facility] Communication Nancy [facility] Child Health Care R epresentative (appointed verbally by patient or by statute hierarchy) Care Teams Receptionist Telephone Operator Relationship Specialty Start Date End Date Dalila Bauman MD [address] [place] [address], [place] [address] PCP - General Internal Medicine 01/09/21 documented as of this encounter
--- OUTSIDE RECORDS SUMMARY | 2023-10-31 14:29 | External Medical Summary | Summary of Care ---
Author Name Unknown Organization [facility] Address [address] [place] [address] Phone [phone] Care Team Providers Care Barrel Painter Name Role Phone Dalila Bauman MD Primary Care Provider Reason for Referral * Ancillary Services (Within 10 days (routine)) - Authorized Specialty Diagnoses / Procedures Referred By Contac t Referred To Contact Disaster Recovery Manager Diagnoses Hospital discharge follow-up Hypertensive emergency Diastolic CHF with preserved left ventricular function, NYHA class 2 (HCC) ESCOBAR (dyspnea on exertion) Hypokalemia Dalila Bauman MD [address] [place] [address] Referral ID Status Reason Start Date Expiration Date Visits Requested Visits Authorized [id number] Authorized Ancillary Services Required 09/16/[phone] Question Answer Referral Priority Within 10 days (routine) Where should this appointment be scheduled? [facility] Comments Is Patient homebound? Yes All sections of this form must be filled out completely. Forms with missing or illegible information will be returned for completion. This form should not be modified in any way. Forms that have been modified will be returned. This form may not be submitted by a home health agency. It must be complete and submitted by the ordering provider. One full business day lead time is required and service will be scheduled based on the next service day for the [facility] Home Phlebotomy does not service every geographical location on a daily basis. Contact [facility] Client Services at to find out service days for a specific location. Medical Laboratory SP Patient Name: Ramila Urrutia : 1935 Sex: female Address [address] [address] Provider: Self? Dalila Bauman MD? Diagnosis: Z09 Hospital discharge follow-up (primary encounter diagnosis) I16.1 Hypertensive emergency I50.30 Diastolic CHF with preserved left ventricular function, NYHA class 2 (HCC) G47.34 Nocturnal hypoxia R06.09 ESCOBAR (dyspnea on exertion) R53.81,R53.83 Malaise and fatigue Tests Requested BMP - in 1 week ---09/22/23 and as directed * Evaluate & Treat - Unlimited Visits (Within 10 days (routine)) - Authorized Specialty Diagnoses / Procedures Referred By Contac t Referred To Contact Sleep Medicine / Sleep Disorders Diagnoses Hospital discharge follow-up Hypertensive emergency Diastolic CHF with preserved left ventricular function, NYHA class 2 (HCC) Nocturnal hypoxia ESCOBAR (dyspnea on exertion) Malaise and fatigue Dalila Bauman MD [address] [place] [address] [place], [place] [address] Referral ID Status Reason Start Date Expiration Date Visits Requested Visits Authorized [id number] Authorized Specialty Services Required 09/16/2023 2 2 Question Answer CAD SLEEP MED ADULT REFERRAL Sleep Apnea Testing and Management Does the patient snore and/or gasp at night or has been told they stop breathing at night? No Referral Priority Within 10 days (routine) Where should this appointment be scheduled? [facility] Reason for Visit * Reason Onset Date Comments Hospital Follow-Up [facility] 09/07/23 Hospital Follow-Up 09/16/2023 Encounter Details Date Type Department Care Team (Late st Contact Info) Description 09/16/2023 4:00 PM EDT Office Visit General Internal Medicine [address] [place] [address] [place] [address] Dalila Bauman MD [address] [facility] [place] [address] Hospital discharge follow-up*; Hypertensive emergency; Diastolic CHF with preserved left ventricular function, NYHA class 2 (HCC); Nocturnal hypoxia; ESCOBAR (dyspnea on exertion); Malaise and fatigue; Hypomagnesemia; Hypokalemia; Type 2 diabetes mellitus with stage 3b chronic kidney disease, without long-term current use of insulin (HCC); Type 2 diabetes mellitus with hemoglobin A1c goal of less than 8.0% (HCC); Adjustment disorder with anxious mood Allergies Active Allergy Reactions Criticality Noted Date Comments Latex 01/09/2021 Penicillins 01/09/2021 Sulfa Antibiotics 01/09/2021 documented as of this encounter (statuses as of 09/27/2023) Medications Medication Sig Dispensed Refills Start Date End Date Status Aspirin EC 81 MG Oral Tablet Delayed ReleaseIndicatio ns:Type 2 diabetes mellitus with retinopathy of both eyes, without long-term current use of insulin, macular edema presence unspecified, unspecified retinopathy severity ([facility]),Dyslipidem ia, goal LDL below 100 Take 1 [...] before bedtime. 270 Tablet 3 3 Active Vitamin B-12 1000 MCG Oral Tablet (Cyanocobalamin) Indications:Type 2 diabetes mellitus with stage 3b chronic kidney disease, without long-term current use of insulin ([facility]) 1 tab on odd days only, start 06/13/2021--dec 3d/wk 10/18/2021 45 Tablet 3 3 Active CoQ10 200 MG Oral Capsule Take by mouth. 0 Active Repaglinide 2 MG Oral Tablet (Prandin)Indicat ions:Type 2 diabetes mellitus with hemoglobin A1c goal of less than 8.0% ([facility]) take 1 tablet by mouth three times a day BEFORE MEALS Strength: 2 mg 270 Tablet 3 3 Active Atorvastatin Calcium 80 MG Oral Tablet (Lipitor)Indicat ions:Renal artery stenosis ([facility]),Carotid stenosis, asymptomatic, right,Dyslipidem ia, goal LDL below 70 take 1 tablet by mouth at bedtime INCREASE 11/13/2021 90 Tablet 2 3 Active Melatonin ER 1 MG Oral Tablet Extended ReleaseIndicatio ns:Other insomnia daily1 tab at bedtime daily, if not improved may increase upto 5 mg daily 90 Tablet 1 3 Active Tradjenta 5 MG Oral Tablet (linaGLIPtin)Ind ications:Type 2 diabetes mellitus with retinopathy of both eyes, without long-term current use of insulin, macular edema presence unspecified, unspecified retinopathy severity ([facility]) take 1 tablet by mouth daily 90 Tablet 1 3 Active Loratadine 10 MG Oral Tablet (Claritin)Indica tions:Seasonal allergic rhinitis due to pollen,Mucous retention cyst of maxillary sinus take 1 tablet by mouth at bedtime 90 Tablet 3 3 Active hydrALAZINE HCl 100 MG Oral TabletIndication s:HTN, goal below 150/90,Type 2 diabetes mellitus with stage 3b chronic kidney disease, without long-term current use of insulin ([facility]) Take 1 Tablet by mouth in the morning and 1 Tablet at noon and 1 Tablet before bedtime. 270 Tablet 3 3 Active Empagliflozin 25 MG Oral Tablet (Jardiance)Indic ations:Type 2 diabetes mellitus with stage 3b chronic kidney disease, without long-term current use of insulin ([facility]) Take 1 Tablet by mouth in the morning. 90 Tablet 3 3 Active Prodigy Lancets 28GIndications:T ype 2 diabetes mellitus with hemoglobin A1c goal of less than 8.0% ([facility]) Use to test blood glucose 3 times daily. DX: E11.9 300 Each 3 3 Active amLODIPine Besylate 5 MG Oral Tablet [...] Active Sertraline HCl 50 MG Oral Tablet (Zoloft)Indicati ons:Adjustment disorder with anxious mood Take 1 Tablet by mouth in the morning. Inc at [place] 09/07/23. 0 4 Active Tresiba FlexTouch 100 UNIT/ML Subcutaneous Solution Pen-injector (Insulin Degludec)Indicat ions:Type 2 diabetes mellitus with stage 3b chronic kidney disease, without long-term current use of insulin ([facility]),Type 2 diabetes mellitus with hemoglobin A1c goal of less than 8.0% ([facility]) Inject 30 Units under the skin in the morning. 0 4 Active Potassium Chloride Denise ER 20 MEQ Oral Tablet Extended ReleaseIndicatio ns:Diastolic CHF with preserved left ventricular function, NYHA class 2 ([facility]),Hypokalemi a Take 1 Tablet by mouth in the morning. Start 09/17/2023, lab 1 week. 30 Tablet 0 4 Active Furosemide 20 MG Oral Tablet (Lasix)Indicatio ns:Type 2 diabetes mellitus with stage 3b chronic kidney disease, without long-term current use of insulin ([facility]),HTN, goal below 150/90,Bilateral leg edema Take 1 to 2 tablets per week. 45 Tablet 3 3 09/16/19 24 Discontinued(Med ication/Dose Changed) Sertraline HCl 50 MG Oral Tablet (Zoloft) TAKE 1/2 A TABLET BY MOUTH EVERY MORNING 45 Tablet 3 3 09/16/19 24 Discontinued Tresiba FlexTouch 100 UNIT/ML Subcutaneous Solution Pen-injector (Insulin Degludec)Indicat ions:Type 2 diabetes mellitus with hemoglobin A1c goal of less than 8.0% (HCC) Inject 33 Units under the skin in the morning. 5 Each 3 3 09/16/19 24 Discontinued Insulin Glargine Solostar 100 UNIT/ML Subcutaneous Solution Pen-injector (Lantus SoloStar)Indicat ions:Type 2 diabetes mellitus with hemoglobin A1c goal of less than 8.0% (HCC) Inject 33 Units under the skin daily. 30 mL 0 3 09/16/19 24 Discontinued(For mulary/Cost) documented as of this encounter (statuses as of 09/27/2023) Active Problems Problem Noted Date Diagnosed Date [...] as of this encounter (statuses as of 09/27/2023) Resolved Problems Problem Noted Date Diagnosed Date Resolved Date Chronic kidney disease, stage 3b 03/17/2022 05/21/2023 Overview: Per CKD protocol Type 2 diabetes mellitus wit h stage 3b chronic kidney disease, without long-term current use of insulin 07/26/2021 03/20/2022 Overview: Per CKD protocol documented as of this encounter (statuses as of 09/27/2023) Immunizations Name Administration Dates Next Due COVID-19 [...] Sign Reading Time Taken Comments Blood Pressure 148/58 09/16/2023 3:45 PM EDT Pulse 67 09/16/2023 3:45 PM EDT Temperature - - Respiratory Rate - - Oxygen Saturation 93% 09/16/2023 3:45 PM EDT Inhaled Oxygen Concentration - - Weight 89 kg (196 lb 1.6 oz) 09/16/2023 3:45 PM EDT Height 162.6 cm (5' 4") 09/16/2023 3:45 PM EDT Body Mass Index 33.66 09/16/2023 3:45 PM EDT documented in this encounter Progress Notes * Dalila Bauman MD - 09/16/2023 4:14 PM EDT SUBJECTIVE: Ramila Urrutia is a 88 year old female. Chief Complaint Patient presents with Hospital Follow-Up [facility] 09/07/23 Hospital Follow-Up HPI: Patient presents today for hospital follow-up appointment. Reviewed available hospital records including history and physical, labs, imaging and discharge summary. Wt Readings from Last 6 Encounters: 09/16/23 89 kg (196 lb 1.6 oz) 09/16/23 89 kg (196 lb 1.6 oz) 08/12/23 89.7 kg (197 lb 12.8 oz) 05/11/23 89.5 kg (197 lb 6.4 oz) 05/04/23 89.9 kg (198 lb 3.2 oz) 04/30/23 89.7 kg (197 lb 12.8 oz) BP Readings from Last 6 Encounters: 09/16/23 148/58 09/16/23 150/46 08/12/23 222/80 05/11/23 198/70 05/04/23 192/72 04/30/23 192/70 Patient with a history of type 2 diabetes, hard to control hypertensio with admissions for hypertensive urgency, followed by Cardiology and Nephrology, CKD, history of hyperkalemia, dyslipidemia, [id number], history of COVID infection June 2021,bilateral cataract extraction, adjustment disorder with depressed mood after her move from [place]/anxiety, chr diastolic CHF; h/o hypercalcemia .03/27--24 calcium low at 40 mg/day--c/w H; MGUS diagnosed 09/2022; 05/07/22-Asymptomatic 50-69% SLIME stenosis;Asymptomatic less than 50% LICA stenosis Right kidney atrophic, left Renal artery stenosis 50-69%--saw vasc 05/27-adv to ct asa, statins-fu 1 yr, had f/u 11/25 with CTA Admitted to the hospital 09/01/2023, discharged 09/07/2023 with hypertensive emergency, acute heart failure with preserved ejection fraction, elevated troponin level. She was also admitted the hospital 08/11/2023 for hypertension and multiple medication changes have been done, elevated troponin mild felt to be due to demand ischemia; new left bundle branch block felt to be rate related per Cardiology, A1c was 6.5% Echo-08/14/2023-EF 60-65%, grade 1 DD, mild CLVH,mild MR,tr TR, no pulmonary hypertension. CT abdomen showed cholelithiasis, diverticulosis 08/11/2023-metoprolol xl 100 mg transition to labetalol 200 mg bid verapamil 180mg changed to amlodipine 5mg, hydralazine increase to 100 mgtid,continue Isordil 30 mg tid; Lasix 20mg 1-2/wk was held , lisinopril 20 mg bid DC due to progressive CKD. Cr improved to 1.82 Admitted with sx of feeling more fatigue, had dyspnea and leg edema Labs-WBC 9.8, HB 10.7, BUN/CR 27/1.4, potassium 3.7, mg 1.5, normal LFT, BNP 1221, troponin 33.8, 39.6. Chest x-ray interstitial pulmonary edema, right basilar opacity. Closely followed by Cardiology and Nephrology. 09/07/23-Labetalol discontinued, started Coreg 37.5 mg twice a day, amlodipine increase to 10 mg daily, Lasix restarted and inc 40 mg Thursday., mh 64mg/d;sertraline inc from 25 to 50 mg, -continue aspirin 81 mg, atorvastatin 80 mg, Co Q10, B12 3 days a week, Claritin, Tradjenta 5 mg, Jardiance 25 mg, Prandin 2 mg three times daily,Glimepiride 2 mg was dc 09/02/22 When lantus >then chg to tresiba 07/2023 , now at 30 units/d Given nocturnal hypertension and question of nocturnal hypoxemia, overnight pulse oximetry, qualified for home oxygen 2 L and recommended sleep study as an outpatient, 2 step PPD no oxygen desaturation with exertion. Blood pressure is improved, weight unchanged from OCT No chest pain or shortness of breath, leg edema is improved Had MTM evaluation today, Nephrology appointment 10/06/2023, Cardiology 10/14/2023 Daughter was under lot of stress and currently visiting [place] for a week, her son-in-law has been helping her. Recent potassium was low, recommend adding potassium since she is on Lasix regularly now, will refer to home phlebotomy for follow-up labs Hemoglobin AIC Results: Lab Results Component Value Date/Time HEMOGLOBIN A1C - [facility] 6.1 (H) 04/30/2023 11:43 AM HEMOGLOBIN A1C - [facility] 7.4 (H) 12/19/2022 01:45 PM HEMOGLOBIN A1C - [facility] 10.7 (H) 09/01/2022 01:06 PM HEMOGLOBIN A1C POCT - [facility] 8.8 (H) 04/23/2022 06:15 PM HEMOGLOBIN A1C POCT - [facility] 8.9 (H) 09/13/2021 03:42 PM Component Latest Ref Rng 05/04/2023 09/16/2023 BUN 6 - 20 mg/dL 33 (H) 32 (H) Creatinine 0.5 - 1.0 mg/dL 1.7 (H) 1.6 (H) Estimated Glomerular Filtration Rate >=60 mL/min 28 (L) 30 (L) Sodium 135 - 146 mmol/L 137 138 Potassium 3.5 - 5.1 mmol/L 4.0 3.5 Chloride 98 - 107 mmol/L 101 100 CO2 22 - 32 mmol/L 22 25 Anion Gap 7 - 15 mmol/L 14 13 Glucose 70 - 120 mg/dL 93 148 (H) Albumin 3.8 - 5.0 g/dL 4.3 3.9 AST 10 - 35 U/L 28 Alkaline Phosphatase 35 - 130 U/L 42 Bilirubin, Total <=1.2 mg/dL 0.3 Calcium 8.4 - 10.2 mg/dL 9.9 9.9 Protein 6.0 - 8.3 g/dL 7.3 ALT 10 - 35 U/L 30 Phosphorus 2.5 - 4.8 mg/dL 3.7 Patient Active Problem List Diagnosis Code Type 2 diabetes mellitus with hemoglobin A1c goal of less than 8.0% ([facility]) E11.9 HTN, goal below 150/90 I10 Dyslipidemia, goal LDL below 70 E78.5 Adjustment disorder with anxious mood F43.22 B12 deficiency E53.8 History of 2019 novel coronavirus disease (COVID-19) Z86.16 S/P bilateral cataract extraction Z98.41, Z98.42 Renal artery stenosis ([facility]) I70.1 Carotid stenosis, asymptomatic, right 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 [employer] Plus Insulin Pen Needle 32G X 6 MM [...] at bedtime INCREASE 11/13/2021 90 Tablet 2 Tradjenta 5 MG Oral Tablet (linaGLIPtin) take [...] times daily. DX: E11.9 300 Each 3 amLODIPine Besylate 5 MG Oral Tablet (Norvasc) Take 2 Tablets by mouth in the morning. Carvedilol 25 MG Oral Tablet (Coreg) Take 1.5 Tablets by mouth 2 times a day with morning and evening meals. Furosemide 40 MG Oral Tablet (Lasix) Take 1 Tablet by mouth. Thursday 3 TIMES A WEEK Magnesium Chloride 64 MG Oral Tablet Take by mouth daily. Sertraline HCl 50 MG Oral Tablet (Zoloft) Take 1 Tablet by mouth in the morning. Inc at [place] 09/07/23. Tresiba FlexTouch 100 UNIT/ML Subcutaneous Solution Pen-injector (Insulin Degludec) Inject 30 Unitsunder the skin in the morning. Melatonin ER 1 MG Oral Tablet Extended Release daily1 tab at bedtime daily, if not improved may increase upto 5 mg daily 90 Tablet 1 No current facility-administered medications for this visit. Review of patient's allergies indicates: Allergen Reactions Latex Penicillins Sulfa Antibiotics Immunization History Administered Date(s) Administered COVID-19 mRNA, LNP-s, No Preserve, 2-Dose Series (Moderna) 11/13/2020, 12/11/2020 COVID-19, LNP-s, No Preserve, Michel-sucrose, Ages 12+ (Pfizer) 12/18/2021 COVID-19, mRNA, LNP-s, PF, Booster, 100mcg/0.5mg (Moderna) 07/11/2021 OBJECTIVE: BP 148/58 | Pulse 67 | Ht 1.626 m (5' 4") | Wt 89 kg (196 lb 1.6 oz) | SpO2 93% | BMI 33.66 kg/m | BSA 2 m PHYSICAL EXAM: General: alert, healthy, no distress, well nourished and well developed Head: Normocephalic, atraumatic Eye Exam: PERRLA, EOMI, Conjunctiva are pink and non-injected, sclera clear Neck: supple, +rt bruits, no JVD, thyroid normal size, non-tender, without nodularity Lymph: No palpable lymphadenopathy. Heart: Regular rhythm and rate, no murmurs and no gallops Lungs: lungs clear to auscultation ex basal rales left >rt Abdomen: Soft, non-tender, normal bowel sounds, no masses or organomegaly, no bruits Extremities:1+pitting lower leg and ankle edema,--new from apr; no clubbing, no cyanosis. Neuro Exam: alert & oriented x 3 with fluent speech, no focal motor/sensory deficits, gait normal Skin: skin color, texture, turgor are normal, no rashes ASSESSMENT/PLAN: Hospital discharge follow-up (Primary) - DISCH MED RECON CUR MED LIS - PULSE OX W/ REST/EXERCISE, MULTIPLE (OP) - SLEEP MEDICINE REFERRAL OP - HOME PHLEBOTOMY REFERRAL OP - XR CHEST 2 VIEWS; Future; Expected date: 09/16/2023 - PULMONARY STRESS TESTING; Future; Expected date: 09/17/2023 Hypertensive emergency - DISCH MED RECON CUR MED LIS - SLEEP MEDICINE REFERRAL OP - MAGNESIUM; Future; Expected date: 09/16/2023 - HOME PHLEBOTOMY REFERRAL OP - XR CHEST 2 VIEWS; Future; Expected date: 09/16/2023 Diastolic CHF with preserved left ventricular function, NYHA class 2 (HCC) - DISCH MED RECON CUR MED LIS - PULSE OX W/ REST/EXERCISE, MULTIPLE (OP) - SLEEP MEDICINE REFERRAL OP - MAGNESIUM; Future; Expected date: 09/16/2023 - Potassium Chloride Denise ER 20 MEQ Oral Tablet Extended Release; Take 1 Tablet by mouth in the morning. Start 09/17/2023, lab 1 week. - HOME PHLEBOTOMY REFERRAL OP - XR CHEST 2 VIEWS; Future; Expected date: 09/16/2023 - PULMONARY STRESS TESTING; Future; Expected date: 09/17/2023 Nocturnal hypoxia - PULSE OX W/ REST/EXERCISE, MULTIPLE (OP) - SLEEP MEDICINE REFERRAL OP - PULMONARY STRESS TESTING; Future; Expected date: 09/17/2023 ESCOBAR (dyspnea on exertion) - PULSE OX W/ REST/EXERCISE, MULTIPLE (OP) - SLEEP MEDICINE REFERRAL OP - HOME PHLEBOTOMY REFERRAL OP - XR CHEST 2 VIEWS; Future; Expected date: 09/16/2023 - PULMONARY STRESS TESTING; Future; Expected date: 09/17/2023 Malaise and fatigue - PULSE OX W/ REST/EXERCISE, MULTIPLE (OP) - SLEEP MEDICINE REFERRAL OP - XR CHEST 2 VIEWS; Future; Expected date: 09/16/2023 Hypomagnesemia - MAGNESIUM; Future; Expected date: 09/16/2023 Hypokalemia - MAGNESIUM; Future; Expected date: 09/16/2023 - Potassium Chloride Denise ER 20 MEQ Oral Tablet Extended Release; Take 1 Tablet by mouth in the morning. Start 09/17/2023, lab 1 week. - HOME PHLEBOTOMY REFERRAL OP Type 2 diabetes mellitus with stage 3b chronic kidney disease, without long-term current use of insulin (HCC) Type 2 diabetes mellitus with hemoglobin A1c goal of less than 8.0% (HCC) Adjustment disorder with anxious mood Follow Up: Return if symptoms worsen or fail to improve, for Return with Physician. | For: Return with Physician | Check-out note: As nery (This note was completed using the dictation program Fluency Direct. As such, there may be misspellings, word substitutions, or other variations that should not change the essence of the clinical content of this encounter note. If there is need for further clarification, please direct questions to the provider listed above.) Patient and / caregiver verbalizes understanding of above instructions and agrees with plan of care. Dalila Bauman MD 09/16/2023 documented in this encounter Nursing Notes * Kala Baca LPN - 09/16/2023 3:45 PM EDT Chief Complaint Patient presents with Hospital Follow-Up [facility] 09/07/23 documented in this encounter Plan of Treatment Upcoming Encounters Date Type Department Care Team (Late st Contact Info) Description 09/28/2023 1:40 PM EDT Office Visit Sleep Disorders Ctr [facility] [address] [place] [id number] Kayleen Stephens DO [address] [place] [address] 10/06/2023 1:40 PM EDT Office Visit Nephrology, [facility] [address] [place] [address] Cornel Smith MD [address] [place] [address] 10/14/2023 1:00 PM EDT Office Visit Cardiology, [facility] [address] [facility] [place] [address] Wiliam Schroeder MD [address] [facility] [place] [address] 10/29/2023 1:30 PM EDT Laboratory Laboratory [facility] [address] [place] [place] [address] [phone] Lisa Lab [facility] [address] [facility] [place], [place] [address] 11/03/2023 2:00 PM EDT Office Visit General Internal Medicine [facility] [place] [address] [place] [address] Dalila Bauman MD [address] [place], [place] [address] 11/10/2023 2:30 PM EDT Office Visit Pharmacy, [facility] [place] [address] [place] [address] [id number] Pharmacist1, [facility] [address] [place] [address] [address] 11/10/2023 3:00 PM EDT Office Visit Hematology/Oncology [place] [address] [facility] [place] [phone] Joshua Nunez MD [address] [facility] [place] [address] Scheduled Orders Name Type Priority Associated Diagnoses Orde r Schedule XR CHEST 2 VIEWS Medical Imaging Routine Hospital discharge follow-up Hypertensive emergency Diastolic CHF with preserved left ventricular function, NYHA class 2 (HCC) ESCOBAR (dyspnea on exertion) Malaise and fatigue Expected: 09/16/2023, Expires: 10/16/2024 PULMONARY STRESS TESTING Procedures Routine Hospital discharge follow-up Diastolic CHF with preserved left ventricular function, NYHA class 2 (HCC) Nocturnal hypoxia ESCOBAR (dyspnea on exertion) Expected: 09/17/2023, Expires: 10/16/2024 Scheduled Referrals Name Type Priority Associated Diagnoses Orde r Schedule SLEEP MEDICINE REFERRAL OP Referral Within 10 days (routine) Hospital discharge follow-up Hypertensive emergency Diastolic CHF with preserved left ventricular function, NYHA class 2 (HCC) Nocturnal hypoxia ESCOBAR (dyspnea on exertion) Malaise and fatigue Ordered: 09/16/2023 HOME PHLEBOTOMY REFERRAL OP Referral Within 10 days (routine) Hospital discharge follow-up Hypertensive emergency Diastolic CHF with preserved left ventricular function, NYHA class 2 (HCC) ESCOBAR (dyspnea on exertion) Hypokalemia Ordered: 09/16/2023 Health Maintenance Due Date Last Done Comments [...] D LEVEL ONCE IN A LIFETIME-USE SMARTSET# [id number] Completed 09/16/2023, 12/19/2022, 03/25/2022, Additional history exists [...] this encounter Medical Devices Implanted Type Area Senior Financial Reporting Analyst Device Identifier Shelf Expiration Date Model / Serial / Lot Lens Intraoc 25.0 - [id number] - [id number] Implanted:Qty: 1 on 09/03/2021 by Deon Griffin MD at [facility] Left: Eye [employer] 10/02/2025 [id number] / [id number] / [id number] Lens Intraoc 26.0 - [id number] - [id number] Implanted:Qty: 1 on 09/17/2021 by Deon Griffin MD at OR [facility] Right: Eye [employer] 10/03/2025 [id number] / [id number] / [id number] documented as of this encounter Procedures Procedure Name Priority Date/Time Associated Diagnosis Comments PULSE OX W/ REST/EXERCISE, MULTIPLE (OP) Routine 09/16/2023 Hospital discharge follow-up Diastolic CHF with preserved left ventricular function, NYHA class 2 (HCC) Nocturnal hypoxia ESCOBAR (dyspnea on exertion) Malaise and fatigue documented in this encounter Results * MAGNESIUM (09/16/2023 2:58 PM EDT) Magnesium 1.8 1.5 - 2.6 mg/dL 09/16/2023 5:00 PM EDT [facility]02 Blood Venipuncture / Unknown 09/16/2023 2:58 PM EDT 09/16/2023 2:58 PM EDT Dalila Bauman MD LAB BLOOD ORDERABLES [facility] [address] [place] [address] * PULSE OX W/ REST/EXERCISE, MULTIPLE (OP) (09/16/2023) Pulse Oximetry-Initia l Rest 92 Comment:P 72 Pulse Oximetry-During Exercise 90 Comment:P 97 Pulse Oximetry-Post Exercise 93 Comment:p 39 Dalila Bauman MD MEDICINE documented in this encounter Visit Diagnoses Diagnosis Hospital discharge follow-up- Primary Other follow-up examination Hypertensive emergency Unspecified essential hypertension Diastolic CHF with preserved left ventricular function, NYHA class 2 (HCC) Unspecified diastolic heart failure Nocturnal hypoxia Hypoxemia ESCOBAR (dyspnea on exertion) Other dyspnea and respiratory abnormality Malaise and fatigue Other malaise and fatigue Hypomagnesemia Disorders of magnesium metabolism Hypokalemia Hypopotassemia Type 2 diabetes mellitus with stage 3b chronic kidney disease, without long-term current use of insulin (HCC) Type 2 diabetes mellitus with hemoglobin A1c goal of less than 8.0% (HCC) Adjustment disorder with anxious mood Adjustment disorder with anxiety documented in this encounter Advance Directives Healthcare Agents on File Name Relationship Healthcare Agent Relationshi p Communication Nancy Hopkins Adult Child Health Care R epresentative (appointed verbally by patient or by statute hierarchy) Care Teams Barrel Painter Relationship Specialty Start Date End Date Dalila Bauman MD [address] [place] [address] PCP - General Internal Medicine 01/09/21 documented as of this encounter
--- OUTSIDE RECORDS SUMMARY | 2023-10-31 14:29 | External Medical Summary | Summary of Care ---
Author Name Unknown Organization [facility] Address [address] [facility] [place] [address] Phone [phone] Care Team Providers Care Surgical Assistant Certified Name Role Phone Dalila Bauman MD Primary Care Provider [phone] Reason for Visit * Reason Onset Date Comments Appointment 09/11/2023 Encounter Details Date Type Department Care Team (Late st Contact Info) Description 09/11/2023 Telephone [facility] [address] [place] [address] Cornel Smith MD 200 [facility] [place] [address] Appointment Allergies Active Allergy Reactions Criticality Noted Date Comments Latex 01/09/2021 Penicillins 01/09/2021 Sulfa Antibiotics 01/09/2021 documented as of this encounter (statuses as of 09/11/2023) Medications Medication Sig Dispensed Refills Start Date [...] of less than 8.0% ([facility]) take 1 tablet by mouth three [...] Tablet Take by mouth daily. 0 Active documented as of this encounter (statuses as of 09/11/2023) Active Problems Problem Noted Date Diagnosed Date [...] as of this encounter (statuses as of 09/11/2023) Resolved Problems Problem Noted Date Diagnosed Date Resolved Date Chronic kidney disease, stage 3b 03/17/2022 05/21/2023 Overview: Per CKD protocol Type 2 diabetes mellitus wit h stage 3b chronic kidney disease, without long-term current use of insulin 07/26/2021 03/20/2022 Overview: Per CKD protocol documented as of this encounter (statuses as of 09/11/2023) Immunizations Name Administration Dates Next Due COVID-19 [...] encounter Miscellaneous Notes * Telephone Encounter - Ana Maria Winter OSA - 09/11/2023 1:23 PM EST 09/11/23 Called patient, left message. Trying to get patient's appointment on 10/06/23 moved to 1:40 pminstead of 4 pm for a hospital discharge appointment with Dr. Smith. My G not active. documented in this encounter Plan of Treatment Upcoming Encounters Date Type Department Care Team (Late st Contact Info) Description 09/16/2023 2:50 PM EDT Office Visit Pharmacy, [facility] [address] [place] [address] Pharmacist1, [facility] [address] [facility] [place] [address] 09/16/2023 4:00 PM EDT Office Visit General Internal Medicine [facility] [address] [place] [address] Dalila Bauman MD 200 [facility] [place] [address] 09/21/2023 4:50 PM EDT Laboratory Laboratory [facility] [address] [place] [phone] [facility] [address] [facility] [place] [address] 10/06/2023 4:00 PM EDT Office Visit Nephrology, [facility] [address] [place] [address] [address] [address] Cornel Smith MD 200 [facility] [place] [address] 10/14/2023 1:00 PM EDT Office Visit Cardiology, [facility] [address] [place] [address] [address] Wiliam Schroeder MD [address] [place] [address] 10/29/2023 1:30 PM EDT Laboratory Laboratory [facility] [address] [place] [place] [phone] Myrna Gonzalez [facility] [address] [facility] [place] [address] 11/03/2023 2:00 PM EDT Office Visit General Internal Medicine [facility] [address] [facility] [address] [place], [place] [address] Dalila Bauman MD 200 [facility] [place] [address] 11/10/2023 3:00 PM EDT Office Visit Hematology/Oncology [facility] 200 [facility] [place], [place] [phone] Johsua Nunez MD 200 [place] [address] Health Maintenance Due Date Last Done Comments [...] D LEVEL ONCE IN A LIFETIME-USE SMARTSET# [id number] Completed 12/19/2022, 03/25/2022, 11/11/2021, Additional history exists [...] this encounter Medical Devices Implanted Type Area Damage Inside Adjuster Device Identifier Shelf Expiration Date Model / Serial / Lot Lens Intraoc 25.0 - [id number] - [id number] Implanted:Qty: 1 on 09/03/2021 by Deon Griffin MD at OR [facility] Left: Eye [employer]OM[employer] 10/02/2025 [id number] / [id number] / [id number] Lens Intraoc 26.0 - [id number] - [id number] Implanted:Qty: 1 on 09/17/2021 by Deon Griffin MD at OR [facility] Right: Eye BA[employer]CH [employer] LOMB 10/03/2025 [id number] / [id number] / [id number] documented as of this encounter Advance Directives Healthcare Agents on File Name Relationship Healthcare Agent Relationshi p Communication Nancy Hopkins Adult Child Health Care R epresentative (appointed verbally by patient or by statute hierarchy) Care Teams Surgical Assistant Certified Relationship Specialty Start Date End Date aDlila Bauman MD 200 [facility] [place] [address] PCP - General Internal Medicine 01/09/21 documented as of this encounter
--- OUTSIDE RECORDS SUMMARY | 2023-10-31 14:29 | External Medical Summary ---
Author Name Unknown Address Unknown Organization K01:[facility] [address] [place] [address] Laboratory Report Ordering Provider Test Date Status JOHNY STAFFORD 09/16/2023 14:58:13 Final Observation Date Value Abnormality Reference (Units ) Status Osmolality 09/16/2023 14:58:13 307 Above high normal 2 78-305 (mOsm/kg) Final Performing Location [facility] [address] [place] [address]
--- OUTSIDE RECORDS SUMMARY | 2023-10-31 14:29 | External Medical Summary ---
Author Name Unknown Address Unknown Organization K09[facility] [place] [address] Laboratory Report Ordering Provider Test Date Status JOHNY STAFFORD 09/16/2023 14:58:13 Final Observation Date Value Abnormality Reference (Units ) Status BUN 09/16/2023 14:58:13 32 Above high normal 6-20 (mg/dL) Final Creatinine 09/16/2023 14:58:13 1.6 Above high normal 0.5-1.0 (mg/dL) Final Glomerular filtration rate/1.73 sq M.predicted [Volume Rate/Area] in Serum, Plasma or Blood by Creatinine-based formula (CKD-EPI) 09/16/2023 14:58:13 30 Below low normal >=60 (mL/min) Final eGFR is calculated based on the CKD-EPI 2020 equation SODIUM 09/16/2023 14:58:13 138 135-146 (m mol/L) Final Potassium 09/16/2023 14:58:13 3.5 3.5-5.1 (m mol/L) Final Cl 09/16/2023 14:58:13 100 98-107 (mm ol/L) Final CO2 09/16/2023 14:58:13 25 22-32 (mmo l/L) Final Anion gap 09/16/2023 14:58:13 13 7-15 (mmol /L) Final Glucose 09/16/2023 14:58:13 148 Above high normal 70 -120 (mg/dL) Final Calcium 09/16/2023 14:58:13 9.9 8.4-10.2 ( mg/dL) Final Albumin 09/16/2023 14:58:13 3.9 3.8-5.0 (g /dL) Final Phosphate 09/16/2023 14:58:13 3.7 2.5-4.8 (m g/dL) Final Performing Location [facility] [place] [address]
--- OUTSIDE RECORDS SUMMARY | 2023-10-31 14:29 | External Medical Summary ---
Author Name Unknown Address Unknown Organization K01:[facility] [place] [address] [facility] [address] [place] [address] Laboratory Report Ordering Provider Test Date Status JOHNY STAFFORD 09/16/2023 14:58:13 Final Observation Date Value Abnormality Reference (Units ) Status Parathyrin.intact [Mass/volume] in Serum or Plasma 09/16/2023 14:58:13 88 Above high normal 15-65 (pg/mL) Final Performing Location [facility] - [address] [place] [address]
--- OUTSIDE RECORDS SUMMARY | 2023-10-31 14:29 | External Medical Summary | Summary of Care ---
Author Name Unknown Organization [facility] Address [address] [place] [address] Phone [phone] Care Team Providers Care Field Auditor Name Role Phone Dalila Bauman MD Primary Care Provider [phone] Reason for Visit * Reason Onset Date Comments FYI 09/24/2023 Encounter Details Date Type Department Care Team (Late st Contact Info) Description 09/24/2023 Telephone Nephrology, [facility] [address] [place], [place] [id number] Services, Scheduling [address] [place] [address] Allergies Active Allergy Reactions Criticality Noted Date [...] the morning. 100 Tab 3 01/09/2021 Active [employer] Voice Blood Glucose w/Device KitIndications:Type 2 diabetes [...] A1c goal of less than 8.0% ([facility]) Use with Lantus once daily 100 Each 3 09/02/2022 Active [employer] No Coding Blood Gluc In Vitro Strip (Glucose Blood)Indications:T ype 2 diabetes mellitus with hemoglobin A1c goal of less than 8.0% ([facility]) Use to test blood [...] without long-term current use of insulin ([facility]) 1 tab on odd days only, start 06/13/2021--dec 3d/wk 10/18/2021 45 Tablet 3 10/13/2022 Active CoQ10 200 MG Oral Capsule Take by mouth. 0 Active Repaglinide 2 MG Oral Tablet (Prandin)Indication s:Type 2 diabetes mellitus with hemoglobin A1c goal of less than 8.0% ([facility]) take 1 tablet by mouth three times a day BEFORE MEALS Strength: 2 mg 270 Tablet 3 2023 Active Atorvastatin Calcium 80 MG Oral Tablet (Lipitor)Indication s:Renal artery stenosis ([facility]),Carotid stenosis, asymptomatic, right,Dyslipidemia, goal [...] A1c goal of less than 8.0% ([facility]) Use to test blood [...] by mouth in the morning. Inc at [place] 09/07/23. 0 09/16/2023 Active Tresiba FlexTouch 100 UNIT/ML Subcutaneous Solution Pen-injector (Insulin Degludec)Indication s:Type 2 diabetes mellitus with stage 3b chronic kidney disease, without long-term current use of insulin ([facility]),Type 2 diabetes mellitus with hemoglobin A1c goal of less than 8.0% ([facility]) Inject 30 Units under the [...] encounter Miscellaneous Notes * Telephone Encounter - Daniela Thompson OSA - 09/24/2023 3:27 PM EDT Pt called fatemeh back [phone] documented in this encounter Plan of Treatment Upcoming Encounters Date Type Department Care Team (Late st Contact Info) Description 09/28/2023 1:40 PM EDT Office Visit [facility] [address] [facility] [place] [phone] Kayleen Stephens DO [address] [place] [address] 10/06/2023 1:40 PM EDT Office Visit Nephrology, [facility] [address], [place] [address] Cornel Smith MD [address] [place] [address] 10/14/2023 1:00 PM EDT Office Visit Cardiology, [facility] [address] [facility] [place] [address] Wiliam Schroeder MD 132 [place] [address] 10/29/2023 1:30 PM EDT Laboratory Laboratory [facility] [address] [place] [address] [phone] Lisa [facility] [address] [place] [address] [address] 11/03/2023 2:00 PM EDT Office Visit General Internal Medicine [facility] [address] [place] [address] [address] Dalila Bauman MD [address] [place], [place] [address] 11/10/2023 2:30 PM EDT Office Visit Pharmacy, [facility] [place] [address] [place] [address] [address] Pharmacist1, [facility] [address] [place], [place] [address] 11/10/2023 3:00 PM EDT Office Visit Hematology/Oncology [facility] [place] [address] [place] [address] [phone] Joshua Nunez MD 200 [place] [address] Health Maintenance Due Date Last Done Comments [...] D LEVEL ONCE IN A LIFETIME-USE SMARTSET# [id number] Completed 09/16/2023, 12/19/2022, 03/25/2022, Additional history exists [...] this encounter Medical Devices Implanted Type Area Muffler Hand Device Identifier Shelf Expiration Date Model / Serial / Lot Lens Intraoc 25.0 - [id number] - [id number] Implanted:Qty: 1 on 09/03/2021 by Deon Griffin MD at OR [facility] Left: Eye [employer]CH [employer]OMB 10/02/2025 [id number] / [id number] / [id number] Lens Intraoc 26.0 - [id number] - [id number] Implanted:Qty: 1 on 09/17/2021 by Deon Griffin MD at OR [facility] Right: Eye BAUSCH [employer] LOMB 10/03/2025 [id number] / [id number] / [id number] documented as of this encounter Advance Directives Healthcare Agents on File Name Relationship Healthcare Agent Relationshi p Communication [facility] R epresentative (appointed verbally by patient or by statute hierarchy) Care Teams Field Auditor Relationship Specialty Start Date End Date Dalila Bauman MD 200 [facility] [place] [address] PCP - General Internal Medicine 01/09/21 documented as of this encounter
--- OUTSIDE RECORDS SUMMARY | 2023-10-31 14:29 | External Medical Summary | Summary of Care ---
Author Name Unknown Organization [facility] Address [address] [facility] [address] Phone [phone] Care Team Providers Care Code Official Name Role Phone Dalila Bauman MD Primary Care Provider [phone] Reason for Visit * Reason Onset Date Comments case management 10/01/2023 Med Request 10/01/2023 DTP Encounter Details Date Type Department Care Team (Late st Contact Info) Description 10/01/2023 Telephone Cardiology, [facility] [address] [place] [address] Wiliam Schroeder MD [address] [place] [address] case management; Med Request (DTP) Allergies Active Allergy Reactions Criticality Noted Date Comments Latex 01/09/2021 Penicillins 01/09/2021 Sulfa Antibiotics 01/09/2021 documented as of this encounter (statuses as of 10/01/2023) Medications Medication Sig Dispensed Refills Start Date [...] less than 8.0% ([facility]) Use as directed every 14 days . [...] long-term current use of insulin ([facility]),Type 2 diabetes mellitus with hemoglobin A1c goal of less than 8.0% ([facility]) Inject 30 Units under the skin in the morning. 0 09/16/2023 Active Potassium Chloride Denise ER 20 MEQ Oral Tablet Extended ReleaseIndications: Diastolic CHF with preserved left ventricular function, NYHA class 2 ([facility]),Hypokalemia Take 1 Tablet by mouth in the morning. Start 09/17/2023, lab 1 week. 30 Tablet 0 09/16/2023 Active documented as of this encounter (statuses as of 10/01/2023) Active Problems Problem Noted Date Diagnosed Date [...] as of this encounter (statuses as of 10/01/2023) Resolved Problems Problem Noted Date Diagnosed Date Resolved Date Chronic kidney disease, stage 3b 03/17/2022 05/21/2023 Overview: Per CKD protocol Type 2 diabetes mellitus wit h stage 3b chronic kidney disease, without long-term current use of insulin 07/26/2021 03/20/2022 Overview: Per CKD protocol documented as of this encounter (statuses as of 10/01/2023) Immunizations Name Administration Dates Next Due COVID-19 [...] Cardio: patient has two recent admissions to [facility] for Congestive heart failure exacerbation and [...] 10/06/2023 1:40 PM EDT Office Visit Nephrology, [facility] [address] [place] [address] Cornel Smith MD [address] [place] [address] 10/14/2023 1:00 PM EDT Office Visit Cardiology, [facility] [address] [facility] [place] [address] Wiliam Schroeder MD 132 [facility] [place] [address] 10/29/2023 1:30 PM EDT Laboratory Laboratory [facility] [place] [address] [place] [address] [place] [phone] Lisa Lab [facility] [address] [place] [address] 11/03/2023 2:00 PM EDT Office Visit General Internal Medicine [facility] [place] [address] [place] [address] Dalila Bauman MD [address] [place] [address] 11/10/2023 2:30 PM EDT Office Visit Pharmacy, [facility] [place] [address] [place] [address] [address] Pharmacist1, [facility] [address] [place] [address] 11/10/2023 3:00 PM EDT Office Visit Hematology/Oncology [facility] [place] [address] [place] [place] [address] [phone] Joshua Nunez MD 200 [facility], [place] [address] Health Maintenance Due Date Last Done Comments [...] D LEVEL ONCE IN A LIFETIME-USE SMARTSET# [id number] Completed 09/16/2023, 12/19/2022, 03/25/2022, Additional history exists [...] this encounter Medical Devices Implanted Type Area Clerk Telegraph Service Device Identifier Shelf Expiration Date Model / Serial / Lot Lens Intraoc 25.0 - [id number] - [id number] Implanted:Qty: 1 on 09/03/2021 by Deon Griffin MD at OR [facility] Left: Eye [employer]CH [employer] LOMB 10/02/2025 [id number] / [id number] / [id number] Lens Intraoc 26.0 - [id number] - [id number] Implanted:Qty: 1 on 09/17/2021 by Deon Griffin MD at OR [facility] Right: Eye [employer]CH [employer] LOMB 10/03/2025 [id number] / [id number] / [id number] documented as of this encounter Advance Directives Healthcare Agents on File Name Relationship Healthcare Agent [facility] p Communication [facility] R epresentative (appointed verbally by patient or by statute hierarchy) Care Teams Code Official Relationship Specialty Start Date End Date Dalila Bauman MD [address] [place] [address] PCP - General Internal Medicine 01/09/21 documented as of this encounter
--- OUTSIDE RECORDS SUMMARY | 2023-10-31 14:29 | External Medical Summary | Summary of Care ---
Author Name Unknown Organization [facility] Address [address] [facility] [place] [address] Phone [phone] Care Team Providers Care Mule Driver Name Role Phone Dalila Bauman MD Primary Care Provider [phone] Reason for Visit * Reason Onset Date Comments Test Results 09/17/2023 Encounter Details Date Type Department Care Team (Late st Contact Info) Description 09/17/2023 Telephone NephrologyMarcia [address] [facility] [place] [address] Cornel Smith MD 200 [facility] [place] [address] Test Results Allergies Active Allergy Reactions Criticality Noted Date Comments Latex 01/09/2021 Penicillins 01/09/2021 Sulfa Antibiotics 01/09/2021 documented as of this encounter (statuses as of 09/17/2023) Medications Medication Sig Dispensed Refills Start Date [...] 8.0% ([facility]) Inject 30 Units under the skin in the morning. 0 09/16/2023 Active Potassium Chloride Denise ER 20 MEQ Oral Tablet Extended ReleaseIndications: Diastolic CHF with preserved left ventricular function, NYHA class 2 (HCC),Hypokalemia Take 1 Tablet by mouth in the morning. Start 09/17/2023, lab 1 week. 30 Tablet 0 09/16/2023 Active documented as of this encounter (statuses as of 09/17/2023) Active Problems Problem Noted Date Diagnosed Date [...] as of this encounter (statuses as of 09/17/2023) Resolved Problems Problem Noted Date Diagnosed Date Resolved Date Chronic kidney disease, stage 3b 03/17/2022 05/21/2023 Overview: Per CKD protocol Type 2 diabetes mellitus wit h stage 3b chronic kidney disease, without long-term current use of insulin 07/26/2021 03/20/2022 Overview: Per CKD protocol documented as of this encounter (statuses as of 09/17/2023) Immunizations Name Administration Dates Next Due COVID-19 [...] encounter Miscellaneous Notes * Telephone Encounter - Yeimi Mckeon RN - 09/17/2023 2:56 PM EDT TE with pt's daughter Mago. She will update pt and other daughter of lab results. * Telephone Encounter - Yeimi Mckeon RN - 09/17/2023 2:55 PM EDT ----- Message from Cornel Smith MD sent at 09/17/2023 10:43 AM EDT ----- Kidney function stable. Na is normal. Continue same * Telephone Encounter - Yeimi Mckeon RN - 09/17/2023 2:39 PM EDT Lmam with call back number. * Telephone Encounter - Radha Yeager LPN - 09/17/2023 10:54 AM EDT LMM to return call to nephro office regarding test results * Telephone Encounter - Radha Yeager LPN - 09/17/2023 10:54 AM EDT ----- Message from Cornel Smith MD sent at 09/17/2023 10:43 AM EDT ----- Kidney function stable. Na is normal. Continue same documented in this encounter Plan of Treatment Upcoming Encounters Date Type Department Care Team (Late st Contact Info) Description 09/21/2023 4:50 PM EDT Laboratory Laboratory [facility] [place] [address] [place] [phone] Lisa Lab [facility] [address] [place] [address] 09/22/2023 8:50 AM EDT Laboratory Lab Mobile Phlebotomy [facility] [address] [place] [address] [facility], [facility] Mobile Home Draw [address] [place] [address] 10/06/2023 1:40 PM EDT Office Visit Nephrology, [facility] [address], [place] [address] Cornel Smith MD [address] [place], [place] [address] 10/14/2023 1:00 PM EDT Office Visit Cardiology, [facility] [address] [place] [address] Wiliam Schroeder MD 132 [place] [address] 10/29/2023 1:30 PM EDT Laboratory Laboratory [facility] [address], [place] [phone] Lisa Lab [place] [address] [address] [facility] [place], [place] [address] 11/03/2023 2:00 PM EDT Office Visit General Internal Medicine [facility] [address] [place], [place] [address] Dalila Bauman MD 200 [facility] [place], [place] [address] 11/10/2023 2:30 PM EDT Office Visit Pharmacy, [facility] [address], [place] [address] Pharmacist1, [facility] [address] [facility] [place], [place] [address] 11/10/2023 3:00 PM EDT Office Visit Hematology/Oncology [facility] [address], [place] [address] Joshua Nunez MD [address] [place], [place] [address] Health Maintenance Due Date Last Done Comments Pneumococcal Vaccine: 65+ Years (1 of 2 - PCV) 02/18/1941 Hgb 02/18/1953 DTaP,Tdap,and Td Vaccines (1 - Tdap) 1954 Zoster Vaccines (1 of 2) 02/18/1984 Diabetic Foot Exam 10/16/2022 10/16/2021 COVID-19 Vaccine (5 - 2022- season) 2023 12/18/2021, 07/11/2021, 12/11/2020, Additional history exists Influenza Vaccine (FLU shot) (#1) 2023 Albumin/Creatinine Ratio 09/01/2023 09/01/2022, 07/07 Nephrology Referral 02/20/2024 02/19/2023 HbA1c 03/02/2024 09/02/2023, 04/06, 12/19/2022, Additional history exists DXA Scan 03/17/2024 03/17/2022, 03/17/2022 Diabetic Eye Exam 07/30/2024 07/30/2023, , 12/10/2022, Additional history exists Depression Screening 08/24/2024 08/24/2023 PTH 09/15/2024 09/16/2023, 12/04, 03/25/2022, Additional history exists Phosphate 09/15/2024 09/16/2023, 12/04, 10/24/2022, Additional history exists VITAMIN D LEVEL ONCE IN A LIFETIME-USE SMARTSET# [id number] Completed 09/16/2023, 12/19/2022, 03/25/2022, Additional history exists [...] this encounter Medical Devices Implanted Type Area Showplace Manager Device Identifier Shelf Expiration Date Model / Serial / Lot Lens Intraoc 25.0 - [id number] - [id number] Implanted:Qty: 1 on 09/03/2021 by Deon Griffin MD at [facility] Left: Eye [employer] 10/02/2025 [id number] / [id number] / [id number] Lens Intraoc 26.0 - [id number] - [id number] Implanted:Qty: 1 on 09/17/2021 by Deon Griffin MD at OR [facility] Right: Eye [employer] 10/03/2025 [id number] / [id number] / [id number] documented as of this encounter Advance Directives Healthcare Agents on File Name Relationship Healthcare Agent [facility] p Communication [facility] Child Health Care R epresentative (appointed verbally by patient or by statute hierarchy) Care Teams Mule Driver Relationship Specialty Start Date End Date Dalila Bauman MD 200 [place] [address] PCP - General Internal Medicine 01/09/21 documented as of this encounter
--- OUTSIDE RECORDS SUMMARY | 2023-10-31 14:29 | External Medical Summary | Summary of Care ---
Author Name Unknown Organization [facility] Address [address] [facility] [address] Phone [phone] Care Team Providers Care Wine Manager Name Role Phone Dalila Bauman MD Primary Care Provider [phone] Reason for Visit * Reason Onset Date Comments case management 10/01/2023 Med Request 10/01/2023 DTP Encounter Details Date Type Department Care Team (Late st Contact Info) Description 10/01/2023 Telephone Cardiology, [facility] [address] [employer] [address] [place] [address] Wiliam Schroeder MD [address] [employer] [place] [address] case management; Med Request (DTP) Allergies Active [...] goal of less than 8.0% ([facility]) Use as directed every 14 days . [...] goal of less than 8.0% ([facility]) take 1 tablet by mouth three times [...] goal of less than 8.0% ([facility]) Use to test blood glucose 3 times [...] long-term current use of insulin ([facility]),Type 2 diabetes mellitus with hemoglobin A1c goal of less than 8.0% ([facility]) Inject 30 Units under the skin in the morning. 0 09/16/2023 Active Potassium Chloride Denise ER 20 MEQ Oral Tablet Extended ReleaseIndications: Diastolic CHF with preserved left ventricular function, NYHA class 2 ([facility]),Hypokalemia Take 1 Tablet by mouth in the [...] Cardio: patient has two recent admissions to [facility] for Congestive heart failure [...] 10/06/2023 1:40 PM EDT Office Visit Nephrology, [facility] [address] [place] [address] Cornel Smith MD [address] [place] [address] 10/14/2023 1:00 PM EDT Office Visit Cardiology, [facility] 132 [facility] [place] [address] Wiliam Schroeder MD 132 [place] [address] 10/29/2023 1:30 PM EDT Laboratory Laboratory [facility] [place] [address] [place] [address] [phone] Lisa Lab [facility] [address] [place] [address] 11/03/2023 2:00 PM EDT Office Visit General Internal Medicine [facility] [address] [place] [address] Dalila Bauman MD [address] [place] [address] [address] 11/10/2023 2:30 PM EDT Office Visit Pharmacy, [facility] [place] [address] [place] [address] [address] Pharmacist1, [facility] [address] [place] [address] [address] 11/10/2023 3:00 PM EDT Office Visit Hematology/Oncology [facility] [address] [place] [phone] Joshua Nunez MD 200 [facility], [place] [address] Health Maintenance Due Date Last Done Comments [...] D LEVEL ONCE IN A LIFETIME-USE SMARTSET# [id number] Completed 09/16/2023, 12/19/2022, 03/25/2022, Additional history exists [...] this encounter Medical Devices Implanted Type Area Trench Shovel Operator Device Identifier Shelf Expiration Date Model / Serial / Lot Lens Intraoc 25.0 - [id number] - [id number] Implanted:Qty: 1 on 09/03/2021 by Deon Griffin MD at OR [facility] Left: Eye [employer] 10/02/2025 [id number] / [id number] / [id number] Lens Intraoc 26.0 - [id number] - [id number] Implanted:Qty: 1 on 09/17/2021 by Deon Griffin MD at OR [facility] Right: Eye [employer] 10/03/2025 [id number] / [id number] / [id number] documented as of this encounter Advance Directives Healthcare Agents on File Name Relationship Healthcare Agent [facility] p Communication [facility] Child Health Care R epresentative (appointed verbally by patient or by statute hierarchy) Care Teams Wine Manager Relationship Specialty Start Date End Date Dalila Bauman MD [address] [place] [address] PCP - General Internal Medicine 01/09/21 documented as of this encounter
--- OUTSIDE RECORDS SUMMARY | 2023-10-31 14:29 | External Medical Summary | Summary of Care ---
Author Name Unknown Organization [facility] Address [address] [facility] [place] [address] Phone [phone] Care Team Providers Care Marketing Coordinator Name Role Phone Dalila Bauman MD Primary Care Provider [phone] Reason for Visit * Reason Comments Outpatient Testing Encounter Details Date Type Department Care Team (Late st Contact Info) Description 09/16/2023 3:20 PM EDT Laboratory Laboratory [facility] Amanda Gonzalez [address] [place] [phone] [place], Lab [address] [place] [address] Arrived Allergies Active Allergy Reactions Criticality Noted Date Comments Latex 01/09/2021 Penicillins 01/09/2021 Sulfa Antibiotics 01/09/2021 documented as of this encounter (statuses as of 09/16/2023) Medications Medication Sig Dispensed Refills Start Date [...] use of insulin ([facility]),HTN, goal below 150/90,Bilateral leg [...] as of this encounter (statuses as of 09/16/2023) Active Problems Problem Noted Date Diagnosed Date [...] as of this encounter (statuses as of 09/16/2023) Resolved Problems Problem Noted Date Diagnosed Date Resolved Date Chronic kidney disease, stage 3b 03/17/2022 05/21/2023 Overview: Per CKD protocol Type 2 diabetes mellitus wit h stage 3b chronic kidney disease, without long-term current use of insulin 07/26/2021 03/20/2022 Overview: Per CKD protocol documented as of this encounter (statuses as of 09/16/2023) Immunizations Name Administration Dates Next Due COVID-19 [...] Office Visit General Internal Medicine [facility] [place] [address] [place] [address] Dalila Bauman MD [address] [place] [address] Arrived 09/21/2023 4:50 PM EDT Laboratory Laboratory [facility] [address] [place] [phone] [place], Lab [facility] [address] [place] [address] 10/06/2023 1:40 PM EDT Office Visit Nephrology, [facility] [address] [place] [address] Cornel Smith MD [address] [place] [address] 10/14/2023 1:00 PM EDT Office Visit Cardiology, [facility] 132 [facility] [place] [address] Wiliam Schroeder MD 132 [facility] [address] 10/29/2023 1:30 PM EDT Laboratory Laboratory [facility] [address] [place], [place] [phone] [place], Lab [facility] [address] [place] [address] 11/03/2023 2:00 PM EDT Office Visit General Internal Medicine [facility] [address] [place] [address] Dalila Bauman MD [address] [place] [address] 11/10/2023 2:30 PM EDT Office Visit Pharmacy, [facility] [address] [place] [address] Pharmacist1, [facility] [address] [place] [address] 11/10/2023 3:00 PM EDT Office Visit Hematology/Oncology [place] [address] [place] [address] Joshua Nunez MD [address] [place] [address] Health Maintenance Due Date Last Done Comments Pneumococcal Vaccine: 65+ Years (1 of 2 - PCV) 02/18/1941 Hgb 02/18/1953 DTaP,Tdap,and Td Vaccines (1 - Tdap) 1954 Zoster Vaccines (1 of 2) 02/18/1984 Diabetic Foot Exam 10/16/2022 10/16/2021 COVID-19 Vaccine ( - 2022- season) 2023 12/18/2021, 07/11/2021, 12/11/2020, Additional history exists Influenza Vaccine (FLU shot) (#1) 2023 Albumin/Creatinine Ratio 09/01/2023 09/01/2022, 07/07 PTH 12/20/2023 12/19/2022, 03/07, 11/11/2021, Additional history exists Phosphate 12/20/2023 12/19/2022, 10/05, 03/25/2022, Additional history exists Nephrology Referral 02/20/2024 02/19/2023 HbA1c 03/02/2024 09/02/2023, 04/06, 12/19/2022, Additional history exists DXA Scan 03/17/2024 03/17/2022, 03/17/2022 Diabetic Eye Exam 07/30/2024 07/30/2023, , 12/10/2022, Additional history exists Depression Screening 08/24/2024 08/24/2023 VITAMIN D LEVEL ONCE IN A LIFETIME-USE SMARTSET# [id number] Completed 12/19/2022, 03/25/2022, 11/11/2021, Additional history exists [...] this encounter Medical Devices Implanted Type Area Social Media Job Titles Device Identifier Shelf Expiration Date Model / Serial / Lot Lens Intraoc 25.0 - [id number] - [id number] Implanted:Qty: 1 on 09/03/2021 by Deon Griffin MD at OR [facility] Left: Eye [employer] 10/02/2025 [id number] / [id number] / [id number] Lens Intraoc 26.0 - [id number] - [id number] Implanted:Qty: 1 on 09/17/2021 by Deon Griffin MD at [facility] Right: Eye [employer] 10/03/2025 [id number] / [id number] / [id number] documented as of this encounter Advance Directives Healthcare Agents on File Name Relationship [facility] p Communication [facility] Adult Child Health Care R epresentative (appointed verbally by patient or by statute hierarchy) Care Teams Marketing Coordinator Relationship Specialty Start Date End Date Dalila Bauman MD 200 [facility] [place] [address] PCP - General Internal Medicine 01/09/21 documented as of this encounter
--- OUTSIDE RECORDS SUMMARY | 2023-10-31 14:29 | External Medical Summary ---
Author Name Unknown Address Unknown Organization K09[facility] [place] [address] Laboratory Report Ordering Provider Test Date Status KAREN FRAIRE 09/16/2023 14:58:13 Final Observation Date Value Abnormality Reference (Units ) Status Magnesium 09/16/2023 14:58:13 1.8 1.5-2.6 (m g/dL) Final Performing Location [facility] [place] [address]
--- OUTSIDE RECORDS SUMMARY | 2023-10-31 14:29 | External Medical Summary ---
Author Name Unknown Address Unknown Organization K[facility] [address] [place] [address] Laboratory Report Ordering Provider Test Date Status JOHNY STAFFORD 09/16/2023 14:58:13 Final Deficient: <20 ng/mL
Ins ufficient: 20-29 ng/mL
Recommended/Optimum:30-50 ng/mL

Vitamin D intoxication is rare. If suspicious of Vitamin D toxicity, evaluation of serum Calcium and PTH is recommended. Observation Date Value Abnormality Reference (Units ) Status 25-OH Vitamin D total 09/16/2023 14:58:13 29 >19 (ng/mL) Final Performing Location [facility] - [address] [place] [address]
--- OUTSIDE RECORDS SUMMARY | 2023-10-31 14:29 | External Medical Summary | Summary of Care ---
Author Name Unknown Organization [facility] Address [address] [place] [address] Phone [phone] Care Team Providers Care Audio Operator Name Role Phone Dalila Bauman MD Primary Care Provider [phone] Reason for Visit * Reason Comments Diabetes Follow-Up Dosage Adjustment In Person (Anticoag Cl inic) Encounter Details Date Type Department Care Team (Late st Contact Info) Description 09/16/2023 2:50 PM EDT Office Visit Pharmacy, [facility] [address] [facility] [place] [address] Pharmacist1, [facility] 200 [facility] [place] [address] Type 2 diabetes mellitus with hemoglobin A1c goal of less than 8.0% (HCC)*; Chronic kidney disease, stage 4 (severe) ([facility]) Allergies Active Allergy Reactions Criticality Noted Date [...] long-term current use of insulin ([facility]),HTN, goal below 150/90,Bilateral leg edema [...] long-term current use of insulin ([facility]) 1 tab on odd days [...] this encounter Progress Notes * Pedrito Tee, [facility] - 09/16/2023 2:34 PM EDT Images from the original note were not included. Medication Therapy Disease Management [facility] - Diabetes Management Progress Note Ramila Urrutia, identified by name and date of , is a 88 year old female being seen for diabetes management/education. Patient presents for return diabetic visit. DIABETES: Current diabetic medications: DECREASE: Tresiba U100 33 units daily in AM Prandin 2mg TID with meals Tradjenta 5mg QD Jardiance 25mg QAM Medication Injection Site: Abdomen Lifestyle: Diet: unchanged History of Treatment Barriers: Lifestyle: None Therapy considerations: Retinopathy (avoid GLP1a) Medication: None Glucose Review/SMBG: Readings obtained from patient documented BG logbook Pre am Pre Lunch Pre pm HS -Apr 124 230 181 138 130 147 104 216 129 95 162 108 146 139 223 129 130 128 143 189 122 210 179 248 133 252 127 231 122 103 124 157 187 129 137 184 119 116 171 124 108 211 199 121 125 181 104 134 30 units 103 163 150 170 198 218 Pre am Pre Lunch Pre pm HS Average 131 169 153 180 Hi 198 252 223 248 Lo 103 95 104 108 Range 95 157 119 140 Hypoglycemia: Does your blood sugar go below 70 mg/dL? No. But symptomatic at 104 - treated correctly and decreased Tresiba to 30 units Hyperglycemia symptoms present: none Goal <8 Recent Labs Units 09/02/23 0000 04/30/23 1143 12/19/22 1345 HEMOGLOBIN A1C - [facility] % -- 6.1* 7.4* HEMOGLOBIN, [id number] LAB % 6.7* -- -- Recent Labs Units 05/04/23 1624 12/19/22 1345 10/24/22 1537 ESTIMATED GLOMERULAR FILTRATION RATE - [facility] mL/min 28* 28* 33* CREATININE - [facility] mg/dL 1.7* 1.7* 1.5* Lab Results Component Value Date/Time CREATININE - [facility] 1.7 (H) 05/04/2023 04:24 PM CREATININE - [facility] 1.7 (H) 12/19/2022 01:45 PM CREATININE - [facility] 1.5 (H) 10/24/2022 03:37 PM CREATININE, RANDOM URINE - [facility] 35 09/01/2022 01:06 PM CREATININE, RANDOM URINE - [facility] 03/31/2022 12:32 PM CREATININE, RANDOM URINE - [facility] 08/02/2021 03:14 PM CREATININE-OUTSIDE LAB 1.25 (A) 10/31/2021 12:00 AM CREATININE-OUTSIDE LAB 1.90 (A) 10/31/2021 12:00 AM HYPERTENSION: Patient on ACEi/ARB: yes, lisinopril 20mg daily BP Readings from Last 3 Encounters: 08/12/23 222/80 05/11/23 198/70 05/04/23 192/72 Blood pressure at goal: No Current regimen: Lisinopril 20mg twice daily Verapamil ER 180mg daily Metoprolol Succinate 100mg daily Hydralazine 100mg three times daily Furosemide 20mg once or twice weekly as needed Isordil 30mg 3 times daily Blood Pressure Goal: <140/90 mmHg No results for input(s): "MICROALBUMIN" in the last 82653 hours. Recent Labs Units 05/04/23 1624 12/19/22 1345 10/24/22 1537 POTASSIUM - [facility] mmol/L 4.0 4.4 4.2 HYPERLIPIDEMIA: Patient is taking moderate or high intensity statin: yes, Atorvastatin 80mg daily HEALTH MAINTENANCE REVIEW: Health Maintenance Due Topic Date Due Pneumococcal Vaccine: 65+ Years (1 of 2 - PCV) Never done Hgb Never done DTaP,Tdap,and Td Vaccines (1 - Tdap) Never done Zoster Vaccines (1 of 2) Never done Diabetic Foot Exam 10/16/2022 Influenza Vaccine (FLU shot) (1) Never done COVID-19 Vaccine ( - 2022- season) 2023 Albumin/Creatinine Ratio 09/01/2023 ASSESSMENT & PLAN: ICD-10-CM 1. Type 2 diabetes mellitus with hemoglobin A1c goal of less than 8.0% ([facility]) E11.9 BG Readings - Blood sugars controlled. A1C was 6.7 in [facility]. Medications - Reviewed current regimen, patient is adherent to regimen. She did decrease Tresiba to30 units a couple of weeks ago when she was hypoglycemic (BG was 104) Diet, Exercise, Lifestyle - She was in [facility] twice for CHF - and 09/01- 09/06 . Discussed with patient today. Patient is agreeable to SMBG 1 time(s) daily. Patient aware to contact clinic if any hypoglycemia before next visit. MEDICATION CHANGES: yes, see below; preferred pharmacy: [facility] Medications: DECREASE: Tresiba U100 30 units daily in AM Prandin 2mg TID with meals Tradjenta 5mg QD Jardiance 25mg QAM HEALTH MAINTENANCE INTERVENTIONS: Labs: Ordered & Scheduled: Urine Microalbumin Immunizations: needs pneumococcal, tetanus, shingles Foot Exam: needs completed Eye Exam: Up to Date Annual Wellness Visit: Up to Date FOLLOW UP: Return to clinic in 8 weeks 11/10/2023 Pedrito Mclain RPh, HAILEE Clinical Pharmacist - Power House Engineer Medication Therapy Management Clinic 09/16/2023, 2:34 PM documented in this encounter Plan of Treatment Upcoming Encounters Date Type Department Care Team (Late st Contact Info) Description 09/16/2023 4:00 PM EDT Office Visit General Internal Medicine [facility] [place] [address] [place] [address] [address] Dalila Bauman MD [address] [place] [address] [address] Arrived 09/21/2023 4:50 PM EDT Laboratory Laboratory [facility] [place] [address] [place] [phone] [facility] [place] [address] [address] 10/06/2023 1:40 PM EDT Office Visit Nephrology, [facility] [address] [place] [address] [address] Cornel Smith MD [address] [place] [address] [address] 10/14/2023 1:00 PM EDT Office Visit Cardiology, [facility] [address] [address] Wiliam Schroeder MD [address] [place] [address] 10/29/2023 1:30 PM EDT Laboratory Laboratory [facility] [address] [facility] [place], [place] [phone] [place], Lab [facility] [address] [facility], [place] [address] 11/03/2023 2:00 PM EDT Office Visit General Internal Medicine [facility] [address] [facility] [address] [place], [place] [address] Dalila Bauman MD [address] [facility] [place], [place] [address] 11/10/2023 2:30 PM EDT Office Visit Pharmacy, [facility] [address] [facility] [address] [place], [place] [address] Pharmacist1, [facility] [address] [facility] [address] [place] [facility], [place] [address] 11/10/2023 3:00 PM EDT Office Visit Hematology/Oncology [facility] [address] [facility] [place], [place] [phone] Joshua Nunez MD [address] [facility] [place], [place] [address] Pending Results Name Type Priority Associated Diagnoses Date /Time HEPATITIS B SURFACE ANTIBODY Lab STAT Chronic kidney disease, stage 4 (severe) ([facility]) 09/16/2023 2:58 PM EDT 25-HYDROXY VITAMIN D Lab STAT Chronic kidney disease, stage 4 (severe) (HCC) 09/16/2023 2:58 PM EDT PTH Lab STAT Chronic kidney disease, stage 4 (severe) (HCC) 09/16/2023 2:58 PM EDT OSMOLALITY, SERUM Lab Routine Chronic kidney disease, stage 4 (severe) (HCC) 09/16/2023 2:58 PM EDT Health Maintenance Due Date Last [...] 12/20/2023 12/19/2022, 03/07, 11/11/2021, Additional history exists Nephrology Referral 02/20/2024 02/19/2023 HbA1c 03/02/2024 09/02/2023, 04/06, 12/19/2022, Additional history exists DXA Scan 03/17/2024 03/17/2022, 03/17/2022 Diabetic Eye Exam 07/30/2024 07/30/2023, , 12/10/2022, Additional history exists Depression Screening 08/24/2024 08/24/2023 Phosphate 09/15/2024 09/16/2023, 12/04, 10/24/2022, Additional history exists VITAMIN D LEVEL ONCE IN A LIFETIME-USE SMARTSET# [id number] Completed 12/19/2022, 03/25/2022, 11/11/2021, Additional history exists [...] this encounter Medical Devices Implanted Type Area Market Analyst Device Identifier Shelf Expiration Date Model / Serial / Lot Lens Intraoc 25.0 - [id number] - [id number] Implanted:Qty: 1 on 09/03/2021 by Deon Griffin MD at [facility] Left: Eye [employer] 10/02/2025 [id number] / [id number] / [id number] Lens Intraoc 26.0 - [id number] - [id number] Implanted:Qty: 1 on 09/17/2021 by Deon Griffin MD at [facility] Right: Eye [employer] 10/03/2025 [id number] / [id number] / [id number] documented as of this encounter Procedures Procedure Name Priority Date/Time Associated Diagnosis Comments RENAL FUNCTION PANEL STAT 09/16/2023 2:58 PM EDT Chronic kidney disease, stage 4 (severe) (HCC) HEMOGLOBIN A1C Routine 09/02/2023 documented in this encounter Results * (ABNORMAL) RENAL FUNCTION PANEL (09/16/2023 2:58 PM EDT) BUN 32(H) 6 - 20 mg/dL 09/16/2023 3:27 PM EDT [address] Creatinine 1.6(H) 0.5 - 1.0 mg/dL 09/16/2023 3:27 PM EDT [address] Estimated Glomerular Filtration Rate 30(L) >=60 mL/min 09/16/2023 3:27 PM EDT [facility]- Comment:eGFR is calculated b ased on the CKD-EPI 2020 equation Sodium 138 135 - 146 mmol/L 09/16/2023 3:27 PM EDT [facility] 56- Potassium 3.5 3.5 - 5.1 mmol/L 09/16/2023 3:27 PM EDT [facility] 56- Chloride 100 98 - 107 mmol/L 09/16/2023 3:27 PM EDT [facility] 56- CO2 25 22 - 32 mmol/L 09/16/2023 3:27 PM EDT [facility] 56- Anion Gap 13 7 - 15 mmol/L 09/16/2023 3:27 PM EDT [facility] 56- Glucose 148(H) 70 - 120 mg/dL 09/16/2023 3:27 PM EDT [facility] 56- Calcium 9.9 8.4 - 10.2 mg/dL 09/16/2023 3:27 PM EDT [facility] 56- Albumin 3.9 3.8 - 5.0 g/dL 09/16/2023 3:27 PM EDT [facility] 56- Phosphorus 3.7 2.5 - 4.8 mg/dL 09/16/2023 3:27 PM EDT [facility] 56- Blood Venipuncture / Unknown 09/16/2023 2:58 PM EDT 09/16/2023 2:58 PM EDT Cornel Smith MD LAB BLOOD ORDERABLES [facility]- [address] [facility] [place] [address] * (ABNORMAL) HEMOGLOBIN A1C (09/02/2023) HEMOGLOBIN, [id number] LAB 6.7(H) 4.5 - 5.6 % Blood Venous blood specimen / Unknown 09/02/2023 History Per Patient LAB BLOOD ORDERABLES documented in this encounter Visit Diagnoses Diagnosis Type 2 diabetes mellitus with hemoglobin A1c goal of less than 8.0% (HCC)- Primary Chronic kidney disease, stage 4 (severe) (HCC) documented in this encounter Advance Directives Healthcare Agents on File Name Relationship [facility] R epresentative (appointed verbally by patient or by statute hierarchy) Care Teams Audio Operator Relationship Specialty Start Date End Date Dalila Bauman MD [address] [facility] [address] PCP - General Internal Medicine 01/09/21 documented as of this encounter
--- OUTSIDE RECORDS SUMMARY | 2023-10-31 14:29 | External Medical Summary | Summary of Care ---
Author Name Unknown Organization [facility] Address [address] [facility] [address] Phone [phone] Care Team Providers Care Od Grinder Operator Name Role Phone Dalila Bauman MD Primary Care Provider [phone] Reason for Visit * Reason Onset Date Comments case management 10/01/2023 Med Request 10/01/2023 DTP Encounter Details Date Type Department Care Team (Late st Contact Info) Description 10/01/2023 Telephone Cardiology, [facility] [address] [place] [address] Wiliam Schroeder MD [address] [place] [address] case management; Med Request (DTP) Allergies Active Allergy Reactions Criticality Noted Date Comments Latex 01/09/2021 Penicillins 01/09/2021 Sulfa Antibiotics 01/09/2021 documented as of this encounter (statuses as of 10/02/2023) Medications Medication Sig Dispensed Refills Start Date [...] goal of less than 8.0% ([facility]) Use as directed every 14 [...] goal of less than 8.0% ([facility]) take 1 tablet by mouth [...] goal of less than 8.0% ([facility]) Use to test blood glucose [...] long-term current use of insulin ([facility]),Type 2 diabetes mellitus with hemoglobin A1c goal of less than 8.0% ([facility]) Inject 30 Units under the skin in the morning. 0 09/16/2023 Active Potassium Chloride Denise ER 20 MEQ Oral Tablet Extended ReleaseIndications: Diastolic CHF with preserved left ventricular function, NYHA class 2 ([facility]),Hypokalemia Take 1 Tablet by mouth in the morning. Start 09/17/2023, lab 1 week. 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 [address] [facility] [place] [address] Wiliam Schroeder MD [address] [facility] [place] [address] 10/29/2023 1:30 PM EDT [facility] [place] [address] [phone] [place] [facility] [place] [address] [place] [place] [address] 11/03/2023 2:00 PM EDT Office Visit General Internal Medicine [facility] [place] [address] [place] [address] [address] Dalila Bauman MD [address] [place] [address] [address] [address] 11/10/2023 2:30 PM EDT Office Visit Pharmacy, [facility] [place] [address] [facility] [place] [address] Pharmacist1, [facility] [address] [facility] [place] [address] 11/10/2023 3:00 PM EDT Office Visit Hematology/Oncology [facility] [place] 200 [facility] [place] [phone] Joshua Nunez MD 200 [facility] [place] [address] Health Maintenance Due Date Last Done Comments [...] D LEVEL ONCE IN A LIFETIME-USE SMARTSET# [id number] Completed 09/16/2023, 12/19/2022, 03/25/2022, Additional history exists [...] this encounter Medical Devices Implanted Type Area Wood Gluer Device Identifier Shelf Expiration Date Model / Serial / Lot Lens Intraoc 25.0 - [id number] - [id number] Implanted:Qty: 1 on 09/03/2021 by Deon Griffin MD at [facility] Left: Eye [employer] 10/02/2025 [id number] / [id number] / [id number] Lens Intraoc 26.0 - [id number] - [id number] Implanted:Qty: 1 on 09/17/2021 by Deon Griffin MD at OR [facility] Right: Eye [employer]OM[employer] 10/03/2025 [id number] / [id number] / [id number] documented as of this encounter Advance Directives Healthcare Agents on File Name Relationship Healthcare Agent Relationshi p Communication Nancy [facility] Adult Child Health Care R epresentative (appointed verbally by patient or by statute hierarchy) Care Teams Od Grinder Operator Relationship Specialty Start Date End Date Dalila Bauman MD [address] [place] [address] PCP - General Internal Medicine 01/09/21 documented as of this encounter
--- OUTSIDE RECORDS SUMMARY | 2023-10-31 14:29 | External Medical Summary | Summary of Care ---
Author Name Unknown Organization [facility] Address [address] [facility] [place] [address] Phone [phone] Care Team Providers Care Pre School Manager Name Role Phone Juno Bauman MD Primary Care Provider [phone] Reason for Visit * Reason Onset Date Comments Test Results 09/17/2023 Encounter Details Date Type Department Care Team (Late st Contact Info) Description 09/17/2023 Telephone NephrologyMarcia [address] [facility] [place] [address] Cornel Smith MD [address] [facility] [place] [address] Test Results Allergies Active Allergy Reactions Criticality Noted Date Comments Latex 01/09/2021 Penicillins 01/09/2021 Sulfa Antibiotics 01/09/2021 documented as of this encounter (statuses as of 09/22/2023) Medications Medication Sig Dispensed Refills Start Date [...] 8.0% ([facility]) take 1 tablet by mouth three [...] 8.0% ([facility]) Inject 30 Units under the skin in the morning. 0 09/16/2023 Active Potassium Chloride Denise ER 20 MEQ Oral Tablet Extended ReleaseIndications: Diastolic CHF with preserved left ventricular function, NYHA class 2 (HCC),Hypokalemia Take 1 Tablet by mouth in the morning. Start 09/17/2023, lab 1 week. 30 Tablet 0 09/16/2023 Active documented as of this encounter (statuses as of 09/22/2023) Active Problems Problem Noted Date Diagnosed Date [...] as of this encounter (statuses as of 09/22/2023) Resolved Problems Problem Noted Date Diagnosed Date Resolved Date Chronic kidney disease, stage 3b 03/17/2022 05/21/2023 Overview: Per CKD protocol Type 2 diabetes mellitus wit h stage 3b chronic kidney disease, without long-term current use of insulin 07/26/2021 03/20/2022 Overview: Per CKD protocol documented as of this encounter (statuses as of 09/22/2023) Immunizations Name Administration Dates Next Due COVID-19 [...] encounter Miscellaneous Notes * Addendum Note - Juno Bauman MD - 09/22/2023 9:15 AM EDTAddended by: JUNO BAUMAN on: 09/22/2023 09:15 AM Modules accepted: Orders * Telephone Encounter - Juno Bauman MD - 09/22/2023 9:13 AM EDT Mg nml < K 20 meq added 09/17/23 TT from home phlebotomy team -Bmp order for today, done, informed vi TT * Telephone Encounter - Yeimi Mckeon RN - 09/17/2023 2:56 PM EDT TE with pt's daughter Mago. She will update pt and other daughter of lab results. * Telephone Encounter - Yeimi cMkeon RN - 09/17/2023 2:55 PM EDT ----- [...] PM EDT Office Visit [facility] [address] [place] [phone] Kayleen Stephens DO [address] [place] [address] 10/06/2023 1:40 PM EDT Office Visit Nephrology, [facility] [address] [place] [address] [address] Cornel Smith MD [address] [place] [address] 10/14/2023 1:00 PM EDT Office Visit Cardiology, [facility] [place] [address] Wiliam Schroeder MD 132 [facility] [place] [address] 10/29/2023 1:30 PM EDT Laboratory Laboratory [facility] [place] [address] [phone] [place] Lab [facility] [address] [facility] [place], [place] [address] 11/03/2023 2:00 PM EDT Office Visit General Internal Medicine [facility] [place] [address] [place] [address] [address] Juno Bauman MD [address] [place] [address] 11/10/2023 2:30 PM EDT Office Visit Pharmacy, [facility] [place] [address] [place] [place] [address] [address] Pharmacist1, [facility] [address] [place] [address] 11/10/2023 3:00 PM EDT Office Visit Hematology/Oncology [place] [address] [facility] [place] [phone] Joshua Nunez MD [address] [facility] [place] [address] Scheduled Orders Name Type Priority Associated Diagnoses Orde r Schedule BASIC METABOLIC PANEL Lab Routine Chronic kidney disease, stage 4 (severe) (HCC) Hypokalemia Hypertensive heart disease with chronic diastolic congestive heart failure (HCC) Expected: 09/22/2023 (Approximate), Expires: 09/21/2024 Health [...] D LEVEL ONCE IN A LIFETIME-USE SMARTSET# [id number] Completed 09/16/2023, 12/19/2022, 03/25/2022, Additional history exists [...] this encounter Medical Devices Implanted Type Area Machine Package Sealer Device Identifier Shelf Expiration Date Model / Serial / Lot Lens Intraoc 25.0 - [id number] - [id number] Implanted:Qty: 1 on 09/03/2021 by Deon Griffin MD at OR [facility] Left: Eye [employer] 10/02/2025 [id number] / [id number] / [id number] Lens Intraoc 26.0 - [id number] - [id number] Implanted:Qty: 1 on 09/17/2021 by Deon Griffin MD at OR [facility] Right: Eye [employer]OMB 10/03/2025 [id number] / [id number] / [id number] documented as of this encounter Visit Diagnoses Diagnosis Hypokalemia- Primary Hypopotassemia Chronic kidney disease, stage 4 (severe) (HCC) Hypertensive heart disease with chronic diastolic congestive heart failure (HCC) documented in this encounter Advance Directives Healthcare Agents on File Name Relationship Healthcare Agent Relationshi p Communication Nancy [facility] Adult Child Health Care R epresentative (appointed verbally by patient or by statute hierarchy) Care Teams Pre School Manager Relationship Specialty Start Date End Date Juno Bauman MD [address] [place] [address], [place] [address] PCP - General Internal Medicine 01/09/21 documented as of this encounter
--- OUTSIDE RECORDS SUMMARY | 2023-10-31 14:29 | External Medical Summary ---
Author Name Unknown Address Unknown Organization K09:[facility] [place] [address] Laboratory Report Ordering Provider Test Date Status KAREN FRAIRE 09/22/2023 12:23:33 Final Observation Date Value Abnormality Reference (Units ) Status BUN 09/22/2023 12:23:33 23 Above high normal 6-20 (mg/dL) Final Creatinine 09/22/2023 12:23:33 1.6 Above high normal 0.5-1.0 (mg/dL) Final Glomerular filtration rate/1.73 sq M.predicted [Volume Rate/Area] in Serum, Plasma or Blood by Creatinine-based formula (CKD-EPI) 09/22/2023 12:23:33 30 Below low normal >=60 (mL/min) Final eGFR is calculated based on the CKD-EPI 2020 equation SODIUM 09/22/2023 12:23:33 140 135-146 (m mol/L) Final Potassium 09/22/2023 12:23:33 4.1 3.5-5.1 (m mol/L) Final Cl 09/22/2023 12:23:33 104 98-107 (mm ol/L) Final CO2 09/22/2023 12:23:33 25 22-32 (mmo l/L) Final Anion gap 09/22/2023 12:23:33 11 7-15 (mmol /L) Final Glucose 09/22/2023 12:23:33 173 Above high normal 70 -120 (mg/dL) Final Calcium 09/22/2023 12:23:33 9.3 8.4-10.2 ( mg/dL) Final Performing Location [facility] [place] [address]
--- OUTSIDE RECORDS SUMMARY | 2023-10-31 14:30 | External Medical Summary | Summary of Care ---
Author Name Unknown Organization [facility] Address [address] [facility] [place] [address] Phone [phone] Care Team Providers Care Multiple Drum Sander Helper Name Role Phone Dalila Bauman MD Primary Care Provider [phone] Encounter Details Date Type Department Care Team (Late st Contact Info) Description 09/03/2023 Orders Only PATIENT PORTAL DO NOT DELETE THIS DEPT USED BY [place] [id number] Allergies Active Allergy Reactions Criticality Noted Date Comments Latex 01/09/2021 Penicillins 01/09/2021 Sulfa Antibiotics 01/09/2021 documented as of this encounter (statuses as of 09/03/2023) Medications Medication Sig Dispensed Refills Start Date [...] hemoglobin A1c goal of less than 8.0% ([facility]) Use with Lantus once daily 100 Each 3 09/02/2022 Active Prodigy No Coding Blood Gluc In Vitro Strip (Glucose Blood)Indications:T ype 2 diabetes mellitus with hemoglobin A1c goal of less than 8.0% ([facility]) Use to test blood glucose 3 times daily as directed. 300 Strip 3 09/02/2022 Active Prevagen 10 MG Oral Capsule (Apoaequorin) Take by mouth every evening. 0 Active Furosemide 20 MG Oral Tablet (Lasix)Indications: Type 2 diabetes mellitus with stage 3b chronic kidney disease, without long-term current use of insulin ([facility]),HTN, goal below 150/90,Bilateral leg edema [...] disease, without long-term current use of insulin ([facility]) 1 tab on odd days only, start 06/13/2021--dec 3d/wk 10/18/2021 45 Tablet 3 10/13/2022 Active CoQ10 200 MG Oral Capsule Take by mouth. 0 Active Repaglinide 2 MG Oral Tablet (Prandin)Indication s:Type 2 diabetes mellitus with hemoglobin A1c goal of less than 8.0% ([facility]) take 1 tablet by mouth three times a day BEFORE MEALS Strength: 2 mg 270 Tablet 3 2023 Active Sertraline HCl 50 MG Oral Tablet (Zoloft) TAKE 1/2 A TABLET BY MOUTH EVERY MORNING 45 Tablet 3 03/02/2023 Active Atorvastatin Calcium 80 MG Oral Tablet (Lipitor)Indication s:Renal artery stenosis ([facility]),Carotid stenosis, asymptomatic, right,Dyslipidemia, goal LDL [...] as of this encounter (statuses as of 09/03/2023) Active Problems Problem Noted Date Diagnosed Date [...] as of this encounter (statuses as of 09/03/2023) Resolved Problems Problem Noted Date Diagnosed Date Resolved Date Chronic kidney disease, stage 3b 03/17/2022 05/21/2023 Overview: Per CKD protocol Type 2 diabetes mellitus wit h stage 3b chronic kidney disease, without long-term current use of insulin 07/26/2021 03/20/2022 Overview: Per CKD protocol documented as of this encounter (statuses as of 09/03/2023) Immunizations Name Administration Dates Next Due COVID-19 [...] State Amanda Dalal [address] [place] [address] [address] Pharmacist1, [facility] [address] [place] [address] [address] 09/11/2023 4:00 PM EST Office Visit Nephrology, Marcia Gonzalez [address] [place] [address] [address] Cornel Smith MD [address] [place] [address] 10/29/2023 1:30 PM EDT Laboratory Laboratory [facility] [address] [place], [place] [phone] [place] [facility] [address] [facility] [place], [place] [address] 11/03/2023 2:00 PM EDT Office Visit General Internal Medicine [facility] [address] [facility] [address] [place], [place] [address] Dalila Bauman MD [address] [facility] [address] [place], [place] [address] 11/10/2023 3:00 PM EDT Office Visit Hematology/Oncology [facility] [address] [facility] [address] [place], [place] [address] Joshua Nunez MD [address] [facility] [place] [address] Health Maintenance Due Date Last Done Comments [...] D LEVEL ONCE IN A LIFETIME-USE SMARTSET# [id number] Completed 12/19/2022, 03/25/2022, 11/11/2021, Additional history exists [...] this encounter Medical Devices Implanted Type Area Fire Boat Engineer Device Identifier Shelf Expiration Date Model / Serial / Lot Lens Intraoc 25.0 - [id number] - [id number] Implanted:Qty: 1 on 09/03/2021 by Deon Griffin MD at OR [facility] Left: Eye [employer] 10/02/2025 [id number] / [id number] Lens Intraoc 26.0 - [id number] - [id number] Implanted:Qty: 1 on 09/17/2021 by Deon Griffin MD at OR [facility] Right: Eye [employer] 10/03/2025 [id number] / [id number] / [id number] documented as of this encounter Advance Directives Healthcare Agents on File Name Relationship Healthcare Agent Relationshi p Communication Nancy [facility] Adult Child Health Care R epresentative (appointed verbally by patient or by statute hierarchy) Care Teams Multiple Drum Sander Helper Relationship Specialty Start Date End Date Dalila Bauman MD [address] [place] [address], [place] [address] PCP - General Internal Medicine 01/09/21 documented as of this encounter
--- OUTSIDE RECORDS SUMMARY | 2023-10-31 14:30 | External Medical Summary | Summary of Care ---
Author Name Unknown Organization [facility] Address [address] [place] [address] Phone [phone] Care Team Providers Care Radius Grinder Name Role Phone Dalila Bauman MD Primary Care Provider [phone] Reason for Visit * Reason Onset Date Comments Outpatient Testing 09/01/2023 Encounter Details Date Type Department Care Team (Late st Contact Info) Description 09/01/2023 Telephone Nephrology, [place] [address] [place] [address] Evelina Bolton RN Outpatient Testing Allergies Active Allergy Reactions Criticality Noted Date Comments Latex 01/09/2021 Penicillins 01/09/2021 Sulfa Antibiotics 01/09/2021 documented as of this encounter (statuses as of 09/01/2023) Medications Medication Sig Dispensed Refills Start Date End Date Status Aspirin EC 81 MG Oral Tablet Delayed ReleaseIndications: Type 2 diabetes mellitus with retinopathy of both eyes, without long-term current use of insulin, macular edema presence unspecified, unspecified retinopathy severity (HCC),Dyslipidemia, goal LDL below 100 Take 1 Tablet by mouth in the morning. 100 Tab 3 01/09/2021 Active ProdVeristormy Voice Blood Glucose w/Device KitIndications:Type 2 diabetes [...] as of this encounter (statuses as of 09/01/2023) Active Problems Problem Noted Date Diagnosed Date [...] as of this encounter (statuses as of 09/01/2023) Resolved Problems Problem Noted Date Diagnosed Date Resolved Date Chronic kidney disease, stage 3b 03/17/2022 05/21/2023 Overview: Per CKD protocol Type 2 diabetes mellitus wit h stage 3b chronic kidney disease, without long-term current use of insulin 07/26/2021 03/20/2022 Overview: Per CKD protocol documented as of this encounter (statuses as of 09/01/2023) Immunizations Name Administration Dates Next Due COVID-19 [...] encounter Miscellaneous Notes * Telephone Encounter - Evelina Bolton RN - 09/01/2023 11:24 PM EST Please schedule a lab appointment prior to the patient's nephrology appointment. Lab orders are in place. Thank you! documented in this encounter Plan of Treatment Upcoming Encounters Date Type Department Care Team (Late st Contact Info) Description 09/11/2023 3:30 PM EST Office Visit Pharmacy, [facility] [place] [address] [facility] [place], [place] [address] Pharmacist1, [facility] 200 [facility] [place], [place] [address] 09/11/2023 4:00 PM EST Office Visit Nephrology, [facility] [address] [facility] [place], [place] [address] Cornel Smith MD [address] [facility] [place], [place] [address] 10/29/2023 1:30 PM EDT Laboratory Laboratory [facility] [address] [facility] [place], [place] [phone] [place] [facility] [address] [facility] [place] [address] 11/03/2023 2:00 PM EDT Office Visit General Internal Medicine [facility] [address] [facility] [address] [place], [place] [address] Dalila Bauman MD [address] [facility] [place] [address] 11/10/2023 3:00 PM EDT Office Visit Hematology/Oncology [facility] [address] [facility] [place], [place] [phone] Joshua Nunez MD [address] [facility] [place] [address] Scheduled Orders Name Type Priority Associated Diagnoses Orde r Schedule HEPATITIS B SURFACE ANTIBODY Lab STAT Chronic kidney disease, stage 4 (severe) (HCC) Expected: 09/01/2023 (Approximate), Expires: 09/01/2024 ALBUMIN / CREATININE RATIO, URINE Lab Routine Chronic kidney disease, stage 4 (severe) (HCC) Expected: 09/01/2023 (Approximate), Expires: 09/01/2024 RENAL FUNCTION PANEL Lab STAT Chronic kidney disease, stage 4 (severe) (HCC) Expected: 09/01/2023 (Approximate), Expires: 09/01/2024 25-HYDROXY VITAMIN D Lab STAT Chronic kidney disease, stage 4 (severe) (HCC) Expected: 09/01/2023 (Approximate), Expires: 09/01/2024 PTH Lab STAT Chronic kidney disease, stage 4 (severe) (HCC) Expected: 09/01/2023 (Approximate), Expires: 09/29/2024 Health Maintenance Due Date Last Done Comments [...] D LEVEL ONCE IN A LIFETIME-USE SMARTSET# [id number] Completed 12/19/2022, 03/25/2022, 11/11/2021, Additional history exists [...] this encounter Medical Devices Implanted Type Area Processing Supervisor Device Identifier Shelf Expiration Date Model / Serial / Lot Lens Intraoc 25.0 - [id number] - [id number] Implanted:Qty: 1 on 09/03/2021 by Deon Griffin MD at OR [facility] Left: Eye [employer] 10/02/2025 [id number] / [id number] / [id number] Lens Intraoc 26.0 - [id number] - [id number] Implanted:Qty: 1 on 09/17/2021 by Deon Griffin MD at OR [facility] Right: Eye [employer] 10/03/2025 [id number] / [id number] / [id number] documented as of this encounter Visit Diagnoses Diagnosis Chronic kidney disease, stage 4 (severe) (HCC)- Primary documented in this encounter Advance Directives Healthcare Agents on File Name Relationship Healthcare Agent Relationshi p Communication Nancy Hopkins Adult Child Health Care R epresentative (appointed verbally by patient or by statute hierarchy) Care Teams Radius Grinder Relationship Specialty Start Date End Date Dalila Bauman MD [address] [place] [address] PCP - General Internal Medicine 01/09/21 documented as of this encounter
--- OUTSIDE RECORDS SUMMARY | 2023-10-31 14:30 | External Medical Summary | Summary of Care ---
Author Name Unknown Organization [facility] Address [address] [place] [address] Phone [phone] Care Team Providers Care Can Capper Name Role Phone Dalila Bauman MD Primary Care Provider [phone] Reason for Visit * Reason Onset Date Comments Outpatient Testing 09/01/2023 Encounter Details Date Type Department Care Team (Late st Contact Info) Description 09/01/2023 Telephone Nephrology, [place] [address] [place] [address] Evelina Bolton RN Outpatient Testing Allergies Active Allergy Reactions Criticality Noted Date Comments Latex 01/09/2021 Penicillins 01/09/2021 Sulfa Antibiotics 01/09/2021 documented as of this encounter (statuses as of 09/02/2023) Medications Medication Sig Dispensed Refills Start Date End Date Status Aspirin EC 81 MG Oral Tablet Delayed ReleaseIndications: Type 2 diabetes mellitus with retinopathy of both eyes, without long-term current use of insulin, macular edema presence unspecified, unspecified retinopathy severity (HCC),Dyslipidemia, goal LDL below 100 Take 1 Tablet by mouth in the morning. 100 Tab 3 01/09/2021 Active ProdTinkoff Digitaly Voice Blood Glucose w/Device KitIndications:Type 2 diabetes [...] hemoglobin A1c goal of less than 8.0% ([facility]) Use with Lantus once daily 100 Each 3 09/02/2022 Active Prodigy No Coding Blood Gluc In Vitro Strip (Glucose Blood)Indications:T ype 2 diabetes mellitus with hemoglobin A1c goal of less than 8.0% ([facility]) Use to test blood glucose 3 times daily as directed. 300 Strip 3 09/02/2022 Active Prevagen 10 MG Oral Capsule (Apoaequorin) Take by mouth every evening. 0 Active Furosemide 20 MG Oral Tablet (Lasix)Indications: Type 2 diabetes mellitus with stage 3b chronic kidney disease, without long-term current use of insulin ([facility]),HTN, goal below 150/90,Bilateral leg edema [...] disease, without long-term current use of insulin ([facility]) 1 tab on odd days only, start 06/13/2021--dec 3d/wk 10/18/2021 45 Tablet 3 10/13/2022 Active CoQ10 200 MG Oral Capsule Take by mouth. 0 Active Repaglinide 2 MG Oral Tablet (Prandin)Indication s:Type 2 diabetes mellitus with hemoglobin A1c goal of less than 8.0% ([facility]) take 1 tablet by mouth [...] as of this encounter (statuses as of 09/02/2023) Active Problems Problem Noted Date Diagnosed Date [...] as of this encounter (statuses as of 09/02/2023) Resolved Problems Problem Noted Date Diagnosed Date Resolved Date Chronic kidney disease, stage 3b 03/17/2022 05/21/2023 Overview: Per CKD protocol Type 2 diabetes mellitus wit h stage 3b chronic kidney disease, without long-term current use of insulin 07/26/2021 03/20/2022 Overview: Per CKD protocol documented as of this encounter (statuses as of 09/02/2023) Immunizations Name Administration Dates Next Due COVID-19 [...] encounter Miscellaneous Notes * Telephone Encounter - Paulette Willis OSA - 09/02/2023 10:17 AM EST Called pt regarding labs for upcoming appt, LM * Telephone Encounter - Evelina Bolton RN - 09/01/2023 11:24 PM EST Please schedule a lab appointment prior to the patient's nephrology appointment. Lab orders are in place. Thank you! documented in this encounter Plan of Treatment Upcoming Encounters Date Type Department Care Team (Late st Contact Info) Description 09/11/2023 3:30 PM EST Office Visit Pharmacy, [facility] [address] [facility] [place] [address] Pharmacist1, [facility] [address] [place] [address] [address] 09/11/2023 4:00 PM EST Office Visit Nephrology, [facility] [place] [address] Cornel Smith MD 200 [facility] [place] [address] 10/29/2023 1:30 PM EDT Laboratory Laboratory [facility] 200 [facility] [place] [phone] [place], Lab [address] [place], [place] [address] 11/03/2023 2:00 PM EDT Office Visit General Internal Medicine [facility] [address] [place], [place] [address] Dalila Bauman MD [address] [facility] [address] [place], [place] [address] 11/10/2023 3:00 PM EDT Office Visit Hematology/Oncology [facility] [place] [address] [place] [phone] Joshua Nunez MD [address] [facility] [address] [place] [address] Scheduled Orders Name Type Priority Associated Diagnoses Orde r Schedule HEPATITIS B SURFACE ANTIBODY Lab STAT Chronic kidney disease, stage 4 (severe) (HCC) Expected: 09/01/2023 (Approximate), Expires: 09/01/2024 ALBUMIN / CREATININE RATIO, URINE Lab Routine Chronic kidney disease, stage 4 (severe) ([facility]) Expected: 09/01/2023 (Approximate), Expires: 09/01/2024 RENAL FUNCTION PANEL Lab STAT Chronic kidney disease, stage 4 (severe) ([facility]) Expected: 09/01/2023 (Approximate), Expires: 09/01/2024 25-HYDROXY VITAMIN D Lab STAT Chronic kidney disease, stage 4 (severe) ([facility]) Expected: 09/01/2023 (Approximate), Expires: 09/01/2024 PTH Lab STAT Chronic kidney disease, stage 4 (severe) ([facility]) Expected: 09/01/2023 (Approximate), Expires: 09/29/2024 Health Maintenance [...] D LEVEL ONCE IN A LIFETIME-USE SMARTSET# [id number] Completed 12/19/2022, 03/25/2022, 11/11/2021, Additional history exists [...] this encounter Medical Devices Implanted Type Area Leadership Intern Device Identifier Shelf Expiration Date Model / Serial / Lot Lens Intraoc 25.0 - [id number] - [id number] Implanted:Qty: 1 on 09/03/2021 by Deon Griffin MD at OR [facility] Left: Eye [employer] 10/02/2025 [id number] / [id number] / [id number] Lens Intraoc 26.0 - [id number] - [id number] Implanted:Qty: 1 on 09/17/2021 by Deon Griffin MD at OR [facility] Right: Eye [employer] 10/03/2025 [id number] / [id number] / [id number] documented as of this encounter Visit Diagnoses Diagnosis Chronic kidney disease, stage 4 (severe) (HCC)- Primary documented in this encounter Advance Directives Healthcare Agents on File Name Relationship [facility] Adult Child Health Care R epresentative (appointed verbally by patient or by statute hierarchy) Care Teams Can Capper Relationship Specialty Start Date End Date Dalila Bauman MD 200 [place] [address] PCP - General Internal Medicine 01/09/21 documented as of this encounter
--- OUTSIDE RECORDS SUMMARY | 2023-10-31 14:30 | External Medical Summary | Summary of Care ---
Author Name Unknown Organization [facility] Address [address] [place] [address] Phone [phone] Care Team Providers Care Medical Social Worker Name Role Phone Dalila Bauman MD Primary Care Provider [phone] Reason for Visit * Reason Onset Date Comments Advice 09/08/2023 Encounter Details Date Type Department Care Team (Late st Contact Info) Description 09/08/2023 Telephone [facility]phrology, [place] [facility] [address] [facility], Scheduling [address] [place] [address] Advice Allergies Active Allergy Reactions Criticality Noted Date Comments Latex 01/09/2021 Penicillins 01/09/2021 Sulfa Antibiotics 01/09/2021 documented as of this encounter (statuses as of 09/08/2023) Medications Medication Sig Dispensed Refills Start Date End Date Status Aspirin EC 81 MG Oral Tablet Delayed ReleaseIndications: Type 2 diabetes mellitus with retinopathy of both eyes, without long-term current use of insulin, macular edema presence unspecified, unspecified retinopathy severity (HCC),Dyslipidemia, goal LDL below 100 Take 1 Tablet by mouth in the morning. 100 Tab 3 01/09/2021 Active Impact Driven Voice Blood Glucose w/Device KitIndications:Type 2 diabetes [...] hemoglobin A1c goal of less than 8.0% ([facility]) Use with Lantus once daily 100 Each 3 09/02/2022 Active Prodigy No Coding Blood Gluc In Vitro Strip (Glucose Blood)Indications:T ype 2 diabetes mellitus with hemoglobin A1c goal of less than 8.0% ([facility]) Use to test blood glucose 3 times daily as directed. 300 Strip 3 09/02/2022 Active Prevagen 10 MG Oral Capsule (Apoaequorin) Take by mouth every evening. 0 Active Furosemide 20 MG Oral Tablet (Lasix)Indications: Type 2 diabetes mellitus with stage 3b chronic kidney disease, without long-term current use of insulin ([facility]),HTN, goal below 150/90,Bilateral leg edema Take [...] disease, without long-term current use of insulin ([facility]) 1 tab on odd days only, start 06/13/2021--dec 3d/wk 10/18/2021 45 Tablet 3 10/13/2022 Active CoQ10 200 MG Oral Capsule Take by mouth. 0 Active Repaglinide 2 MG Oral Tablet (Prandin)Indication s:Type 2 diabetes mellitus with hemoglobin A1c goal of less than 8.0% ([facility]) take 1 tablet by mouth three [...] as of this encounter (statuses as of 09/08/2023) Active Problems Problem Noted Date Diagnosed Date [...] as of this encounter (statuses as of 09/08/2023) Resolved Problems Problem Noted Date Diagnosed Date Resolved Date Chronic kidney disease, stage 3b 03/17/2022 05/21/2023 Overview: Per CKD protocol Type 2 diabetes mellitus wit h stage 3b chronic kidney disease, without long-term current use of insulin 07/26/2021 03/20/2022 Overview: Per CKD protocol documented as of this encounter (statuses as of 09/08/2023) Immunizations Name Administration Dates Next Due COVID-19 [...] Telephone Encounter - Yeimi Mckeon RN - 09/08/2023 2:46 PM EST TE with pt. She states that she is having a a difficult time adjusting since her hospital stay. Sheagrees to complete lab tests on the day she follows up with Dr Bauman next Thursday. * Telephone Encounter - Dorene Dee OSA - 09/08/2023 2:25 PM EST Pt was just discharged from [place] yesterday, September 06, and has an appt with Dr. Smith on September 10. She said she is not feeling the greatest and wanted to cancel this appt and reschedule it to next week. There is nothing available until October. There are also lab orders in that were placed on 09.01 that she said she can't get done in time forher appt on the . She said Dr. Smith should have the test results from when she was admitted. Please advise on appt and also time frame she should have the lab work done. Thank you [facility] documented in this encounter Plan of Treatment Upcoming Encounters Date Type Department Care Team (Late st Contact Info) Description 09/16/2023 4:00 PM EDT Office Visit General Internal Medicine [facility] [address] [place], [place] [address] Dalila Bauman MD [address] [place], [place] [address] 09/21/2023 4:50 PM EDT Laboratory Laboratory [facility] [place] [address] [place], [place] [phone] [place], Lab [facility] [address] [facility] [place], [place] [address] 10/06/2023 4:00 PM EDT Office Visit Nephrology, [facility] [address] [place] [address] Cornel Smith MD [address] [place] [address] 10/29/2023 1:30 PM EDT Laboratory Laboratory [facility] [place] [address] [place] [phone] [place], Lab [facility] [address] [facility] [place] [address] 11/03/2023 2:00 PM EDT Office Visit General Internal Medicine [facility] 200 [facility] [place], [place] [address] Dalila Bauman MD [address] [facility] [place] [place] [address] 11/10/2023 3:00 PM EDT Office Visit Hematology/Oncology [facility] 200 [facility] [place], [place] [phone] Joshua Nunez MD 200 [facility] [place], [place] [address] Health Maintenance Due Date Last Done Comments [...] D LEVEL ONCE IN A LIFETIME-USE SMARTSET# [id number] Completed 12/19/2022, 03/25/2022, 11/11/2021, Additional history exists [...] this encounter Medical Devices Implanted Type Area Charge Out Clerk Device Identifier Shelf Expiration Date Model / Serial / Lot Lens Intraoc 25.0 - [id number] - [id number] Implanted:Qty: 1 on 09/03/2021 by Deon Griffin MD at OR [facility] Left: Eye [employer]OMB 10/02/2025 [id number] / [id number] / [id number] Lens Intraoc 26.0 - [id number] - [id number] Implanted:Qty: 1 on 09/17/2021 by Deon Griffin MD at OR [facility] Right: Eye [employer]OM[employer] 10/03/2025 [id number] / [id number] / [id number] documented as of this encounter Advance Directives Healthcare Agents on File Name Relationship Healthcare Agent [facility] p Communication Nancy Hopkins Adult Child Health Care R epresentative (appointed verbally by patient or by statute hierarchy) Care Teams Medical Social Worker Relationship Specialty Start Date End Date Dalila Bauman MD 200 [facility] [place] [address] PCP - General Internal Medicine 01/09/21 documented as of this encounter
--- OUTSIDE RECORDS SUMMARY | 2023-10-31 14:30 | External Medical Summary | Summary of Care ---
Author Name Unknown Organization [facility] Address [address] [place] [address] Phone [phone] Care Team Providers Care Brick Setter Name Role Phone Dalila Bauman MD Primary Care Provider [phone] Reason for Visit * Reason Onset Date Comments Advice 09/08/2023 Encounter Details Date Type Department Care Team (Late st Contact Info) Description 09/08/2023 Telephone [facility]phrology, [facility] [place] [facility] [address] [facility], Scheduling [address] [place] [address] Advice Allergies Active Allergy Reactions Criticality Noted [...] the morning. 100 Tab 3 01/09/2021 [facility] [employer] Voice Blood Glucose w/Device KitIndications:Type 2 diabetes [...] encounter Miscellaneous Notes * Telephone Encounter - Dorene Dee, PATRICK - 09/08/2023 2:25 PM EST Pt was just discharged from [facility] yesterday, September 06, and has an appt [...] PM EDT Office Visit General Internal Medicine [facility] [address] [facility] [place], [place] [address] Dalila Bauman MD [address] [facility] [place] [address] 09/21/2023 4:50 PM EDT Laboratory Laboratory [facility] [address] [facility] [place], [place] [phone] [place] [facility] [address] [facility] [place] [address] 10/06/2023 4:00 PM EDT Office Visit Nephrology, [facility] [address] [facility] [place], [place] [address] Cornel Smith MD [address] [facility] [place] [address] 10/29/2023 1:30 PM EDT Laboratory Laboratory [facility] [address] [place], [place] [phone] [facility] [address] [facility] [place] [address] 11/03/2023 2:00 PM EDT Office Visit General Internal Medicine [facility] [address] [place] [address] Dalila Bauman MD [address] [facility] [place] [address] 11/10/2023 3:00 PM EDT Office Visit Hematology/Oncology [facility] [place] [address] [place] [address] Joshua Nunez MD [address] [facility] [place] [address] Health Maintenance Due Date Last Done Comments [...] D LEVEL ONCE IN A LIFETIME-USE SMARTSET# [id number] Completed 12/19/2022, 03/25/2022, 11/11/2021, Additional history exists [...] this encounter Medical Devices Implanted Type Area Mechanical Product Engineer Device Identifier Shelf Expiration Date Model / Serial / Lot Lens Intraoc 25.0 - [id number] - [id number] Implanted:Qty: 1 on 09/03/2021 by Deon Griffin MD at OR [facility] Left: Eye [employer] 10/02/2025 [id number] / [id number] / [id number] Lens Intraoc 26.0 - [id number] - [id number] Implanted:Qty: 1 on 09/17/2021 by Deon Griffin MD at OR [facility] Right: Eye [employer]OMB 10/03/2025 [id number] / [id number] / [id number] documented as of this encounter Advance Directives Healthcare Agents on File Name Relationship Healthcare Agent [facility] p Communication [facility] Adult Child Health Care R epresentative (appointed verbally by patient or by statute hierarchy) Care Teams Brick Setter Relationship Specialty Start Date End Date Dalila Bauman MD [address] [place] [address] PCP - General Internal Medicine 01/09/21 documented as of this encounter
--- OUTSIDE RECORDS SUMMARY | 2023-10-31 14:30 | External Medical Summary | Summary of Care ---
Author Name Unknown Organization [facility] Address [address] [facility] [place] [address] Phone [phone] Care Team Providers Care Laborer Mine Name Role Phone Dalila Bauman MD Primary Care Provider [phone] Encounter Details Date Type Department Care Team (Late st Contact Info) Description 09/02/2023 Result Scan Unspecified Department Chavo Billy, DO [address] [place] [address] <No scans attached> Allergies Active Allergy Reactions Criticality Noted Date Comments Latex 01/09/2021 Penicillins 01/09/2021 Sulfa Antibiotics 01/09/2021 documented as of this encounter (statuses as of 09/10/2023) Medications Medication Sig Dispensed Refills Start Date End Date Status Aspirin EC 81 MG Oral Tablet Delayed ReleaseIndication s:Type 2 diabetes mellitus with retinopathy of both eyes, without long-term current use of insulin, macular edema presence unspecified, unspecified retinopathy severity (HCC),Dyslipidemi a, goal LDL below 100 Take 1 Tablet by mouth in the morning. 100 Tab 3 01/09/2021 Active [employer] Voice Blood Glucose w/Device KitIndications:Ty pe 2 [...] goal of less than 8.0% ([facility]) Use with Lantus once daily 100 Each 3 09/02/2022 Active Pro[employer] No Coding Blood Gluc In Vitro Strip (Glucose Blood)Indications :Type 2 diabetes mellitus with hemoglobin A1c goal of less than 8.0% ([facility]) Use to test blood glucose 3 times daily as directed. 300 Strip 3 09/02/2022 Active Prevagen 10 MG Oral Capsule (Apoaequorin) Take by mouth every evening. 0 Active Furosemide 20 MG Oral Tablet (Lasix)Indication s:Type 2 diabetes mellitus with stage 3b chronic kidney disease, without long-term current use of insulin ([facility]),HTN, goal below 150/90,Bilateral leg edema Take 1 [...] long-term current use of insulin ([facility]) 1 tab on odd days only, start 06/13/2021--dec 3d/wk 10/18/2021 45 Tablet 3 10/13/2022 Active CoQ10 200 MG Oral Capsule Take by mouth. 0 Active Repaglinide 2 MG Oral Tablet (Prandin)Indicati ons:Type 2 diabetes mellitus with hemoglobin A1c goal of less than 8.0% ([facility]) take 1 tablet by mouth three times [...] by mouth in the morning. 0 Active Labetalol HCl 200 MG Oral Tablet (Normodyne) Take 1 Tablet by mouth in the morning and 1 Tablet before bedtime. 0 09/10/19 24 Discontinued documented as of this encounter (statuses as of 09/10/2023) Active Problems Problem Noted Date Diagnosed Date [...] as of this encounter (statuses as of 09/10/2023) Resolved Problems Problem Noted Date Diagnosed Date Resolved Date Chronic kidney disease, stage 3b 03/17/2022 05/21/2023 Overview: Per CKD protocol Type 2 diabetes mellitus wit h stage 3b chronic kidney disease, without long-term current use of insulin 07/26/2021 03/20/2022 Overview: Per CKD protocol documented as of this encounter (statuses as of 09/10/2023) Immunizations Name Administration Dates Next Due COVID-19 [...] PM EDT Office Visit General Internal Medicine [place] [address] [place] [address] [address] Dalila Bauman MD [address] [place] [address] [address] [address] 09/21/2023 4:50 PM EDT Laboratory Laboratory [facility] [address] [place], [place] [phone] [place], Lab [facility] [address] [facility] [place], [place] 10/06/2023 4:00 PM EDT Office Visit Nephrology, [facility] 200 [facility] [place] [address] Cornel Smith MD 200 [facility] [place] [address] 10/29/2023 1:30 PM EDT Laboratory Laboratory [facility] [address] [facility] [place], [place] [phone] [place], Lab [facility] [address] [facility] [place] [address] 11/03/2023 2:00 PM EDT Office Visit General Internal Medicine [facility] [address] [facility] [place], [place] [address] Dalila Bauman MD 200 [facility] [place] [address] 11/10/2023 3:00 PM EDT Office Visit Hematology/Oncology [facility] [address] [facility] [place] [phone] Joshua Nunez MD [address] [facility] [place] [address] Health Maintenance Due Date Last Done Comments [...] D LEVEL ONCE IN A LIFETIME-USE SMARTSET# [id number] Completed 12/19/2022, 03/25/2022, 11/11/2021, Additional history exists [...] this encounter Medical Devices Implanted Type Area Drill Press Set Up Operator Device Identifier Shelf Expiration Date Model / Serial / Lot Lens Intraoc 25.0 - [id number] - [id number] Implanted:Qty: 1 on 09/03/2021 by Deon Griffin MD at OR [facility] Left: Eye [employer]OM[employer] 10/02/2025 [id number] / [id number] / [id number] Lens Intraoc 26.0 - [id number] - [id number] Implanted:Qty: 1 on 09/17/2021 by Deon Griffin MD at [facility] Right: Eye [employer]OM[employer] 10/03/2025 [id number] / [id number] / [id number] documented as of this encounter Procedures Procedure Name Priority Date/Time Associated Diagnosis Comments ECHOCARDIOLOGY SCANNED RESULT 09/02/2023 documented in this encounter Results * ECHOCARDIOLOGY SCANNED RESULT (09/02/2023) 09/02/2023 Chavo Billy DO ECHOCARDIOLOGY documented in this encounter Advance Directives Healthcare Agents on File Name Relationship Healthcare Agent [facility] Adult Child Health Care R epresentative (appointed verbally by patient or by statute hierarchy) Care Teams Laborer Mine Relationship Specialty Start Date End Date Dalila Bauman MD 200 [place] [address] PCP - General Internal Medicine 01/09/21 documented as of this encounter
--- OUTSIDE RECORDS SUMMARY | 2023-10-31 14:30 | External Medical Summary | Summary of Care ---
Author Name Unknown Organization [facility] Address [address] [address] , [place] Care Team Providers Care Flux Tube Attendant Name Role Phone Dalila Bauman MD Primary Care Provider [phone] Reason for Visit * Reason Onset Date Comments Returning Call 09/10/2023 Encounter Details Date Type Department Care Team (Late st Contact Info) Description 09/10/2023 Telephone Pharmacy, [facility] [place] [address] [facility] [place] [address] Pharmacist1, [facility] [address] [place] [address] Returning Call (/) Allergies Active Allergy Reactions Criticality Noted [...] insulin ([facility]),HTN, goal below 150/90,Bilateral leg edema [...] less than 8.0% ([facility]) take 1 tablet [...] encounter Miscellaneous Notes * Telephone Encounter - Pedrito Tee RPh - 09/10/2023 2:25 PM EST Caller's name: Ramila Preferred call back number(OFFICE NUMBER FOR ): [phone] Reason for call: patient returning Britany's call, states she cannot answer the phone so she is asking that you call and leave a voicemail with a phone number so she can call you directly. Called and spoke to Ramila. She is coming to the clinic 09/15 at 2:50 PM. Pedrito Mclain RPh, [facility] Clinical Pharmacist [facility] 09/10/2023, 2:26 PM * Telephone Encounter - Katya Connolly, professional organizer - 09/10/2023 1:23 PM EST Caller's name: Ramila Preferred call back number(OFFICE NUMBER FOR ): [phone] Reason for call: patient returning Britany's call, states she cannot answer the phone so she is asking that you call and leave a voicemail with a phone number so she can call you directly. Katya Connolly MA Product Development Technician I [facility] ([facility]) [address] [facility] [phone] [place] [address] ext [phone] documented in this encounter Plan of Treatment Upcoming Encounters Date Type Department Care Team (Late st Contact Info) Description 09/16/2023 2:50 PM EDT Office Visit Pharmacy, [place] [address] [place] [address] [address] Pharmacist1, [facility] [address] [place] [address] [address] 09/16/2023 4:00 PM EDT Office Visit General Internal Medicine [place] [address] [place] [address] Dalila Bauman MD [address] [place] [address] 09/21/2023 4:50 PM EDT Laboratory Laboratory [place] [address] [place] [address] [phone] [place], Lab [facility] 200 [facility] [place] [address] 10/06/2023 4:00 PM EDT Office Visit Nephrology, [facility] [address] [facility] [place] [address] Cornel Smith MD [address] [facility] [place] [address] 10/29/2023 1:30 PM EDT Laboratory Laboratory [facility] [address] [facility] [place] [phone] [facility] [address] [facility] [place] [address] 11/03/2023 2:00 PM EDT Office Visit General Internal Medicine [facility] [address] [facility] [place] [address] Dalila Bauman MD [address] [facility] [place] [address] 11/10/2023 3:00 PM EDT Office Visit Hematology/Oncology [facility] [address] [facility] [place] [phone] Joshua Nunez MD 200 [place] [address] Health Maintenance Due Date Last Done Comments [...] D LEVEL ONCE IN A LIFETIME-USE SMARTSET# [id number] Completed 12/19/2022, 03/25/2022, 11/11/2021, Additional history exists [...] this encounter Medical Devices Implanted Type Area Benefits Specialist Device Identifier Shelf Expiration Date Model / Serial / Lot Lens Intraoc 25.0 - [id number] - [id number] Implanted:Qty: 1 on 09/03/2021 by Deon Griffin MD at OR [facility] Left: Eye [employer]OM[employer] 10/02/2025 [id number] / [id number] / [id number] Lens Intraoc 26.0 - [id number] - [id number] Implanted:Qty: 1 on 09/17/2021 by Deon Griffin MD at OR [facility] Right: Eye [employer]CH [employer]OMB 10/03/2025 [id number] / [id number] / [id number] documented as of this encounter Advance Directives Healthcare Agents on File Name Relationship Healthcare Agent Relationshi p Communication [facility] Adult Child Health Care R epresentative (appointed verbally by patient or by statute hierarchy) Care Teams Flux Tube Attendant Relationship Specialty Start Date End Date Dalila Bauman MD [address] [place] [address] PCP - General Internal Medicine 01/09/21 documented as of this encounter
--- NOTE | 2023-10-31 15:37 | Cardiology Progress Note ---
Date of Service October 31, 2023 Assessment & Plan (1) Acute on chronic diastolic HF (heart failure): (2) LBBB (left bundle branch block): (3) Hypertension: (4) Bilateral lower extremity edema: (5) Anemia: Plan 1. Acute on chronic diastolic HF 2. Hypoxia 3. Macrocytic anemia s/p 1 unit PRBCs 4. HTN 5. CKD stage III 6. T2 DM 7. Carotid artery disease 8. Renal artery stenosis 9. Chronic vertigo 10. 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 87.3kg -> 84kg today with -1.5L out. -Continue IV lasix 40mg daily -Hgb 7.5 today, s/p 1 unit PRBCs. Further management of anemia per primary team Case discussed with Dr. Lazaro. I spent a total of 30 minutes on the date of service in preparation, delivery, and documentation of the care provided to this patient, excluding any time spent in the performance of separately billed services. Yvonne Goodrich PA-C Department of Cardiology, [facility] This chart was completed in part utilizing Speech Voice Recognition Software. Grammatical errors, random word insertions, pronoun errors, and incomplete sentences are an occasional consequence of this system due to software limitations, ambient noise, and hardware issues. Any formal questions or concerns about the content, text, or information contained within the body of this dictation should be directly addressed to the provider for clarification. Admission and Anticipated Discharge Date Admission Date: October 30, 2023 Supervising Physician Co-Signing Physician Notes Attending attestation: Case reviewed with the advanced practitioner. I have personally performed a history and physical examination on the patient. I have reviewed the advanced practitioner's documentation on the date of service referenced in note, and I agree with, and take responsibility for the plan of care. Continue IV furosemide. Agree with transfusion for goal hemoglobin greater than 8 given significant dyspnea on exertion, hypoxia with minimal exertion. Hypokalemia noted this morning for which patient received IV and oral replacement. Patient previously on spironolactone but discontinued at time of previous hospital stay due to hyperkalemia and hyponatremia. Agree with plan for compression stockings and SCDs for DVT prophylaxis given anemia. I spent a total of 20 minutes coordinating, documenting, and providing care for this patient excluding time spent in the performance of separately billed services or time spent by another provider. Martinez Lazaro DO Subjective Patient seen in follow-up for acute on chronic diastolic HF exacerbated by anemia. Hgb 7.5 today. Recieved 1 unit of PRBCs. Patient reports feeling very tired and weak today Denies chest pain, shortness of breath, orthopnea/PND Review of Systems Review of Systems: All systems reviewed & are unremarkable except as noted in HPI & below Physical Exam Constitutional: + ill appearing (+pale. +frail elderly) Neck: trachea midline, no thyromegaly Respiratory: normal respiratory effort, lungs clear to auscultation Auscultation: no crackles, no rales, no rhonchi and no wheezes Cardiovascular: RRR, no murmur, no edema Heart Sounds: normal S1 and normal S2; no murmur Vessels: no JVD Extremities: + edema (+trace BLE edema) Gastrointestinal (Abdomen): normal bowel sounds, soft, nontender, no hepatosplenomegaly Musculoskeletal: Extremities: extremities normal to inspection Skin: no rashes, warm and dry Psychiatric: A+Ox3, euthymic affect Results & Data Vital Signs (Past 12 Hours) Vital Signs Temp Pulse Pulse Resp BP BP Pulse Ox 10/31/23 14:12 36.8 C 73 18 171/68 H 97 10/31/23 14:00 36.8 C 70 18 163/63 H 97 10/31/23 13:38 36.8 C 68 18 156/58 H 97 10/31/23 13:00 72 10/31/23 11:51 36.8 C 62 18 154/74 H 98 10/31/23 08:00 10/31/23 07:39 36.3 C L 63 18 147/58 H 99 10/31/23 07:00 67 10/31/23 03:56 36.8 C 68 16 160/72 H 96 O2 Del Method O2 Flow Rate 10/31/23 14:12 10/31/23 14:00 10/31/23 13:38 2 10/31/23 13:00 10/31/23 11:51 Nasal Cannula 2 10/31/23 08:00 Nasal Cannula 2 10/31/23 07:39 Nasal Cannula 2 10/31/23 07:00 10/31/23 03:56 Nasal Cannula 2 Laboratory Results Cardiac Enzymes 10/31/23 Range/Units 05:53 Lactate Dehydrogenase 228 (86-244) U/L CBC 10/31/23 Range/Units 05:53 WBC 5.98 (4.8-10.8) K/ul RBC 2.45 L (4.20-5.40) M/uL Hgb 7.5 L (12.0-16.0) g/dl Hct 24.1 L (37.0-47.0) % Plt Count 230 (130-400) K/uL Comprehensive Metabolic Panel 10/31/23 Range/Units 05:53 Sodium 140 (136-145) mmol/L Potassium 2.9 L D (3.5-5.1) mmol/L Chloride 105 (98-107) mmol/L Carbon Dioxide 30 (21-32) mmol/L BUN 19 (6-23) mg/dl Creatinine 1.56 H (0.6-1.2) mg/dl Glucose 48 L* (70-99(Fasting)) mg/dl Calcium 8.8 (8.6-10.3) mg/dl Intake and Output 10/31/23 10/31/23 10/31/23 06:59 14:59 22:59 Intake Total 561.667 / 561.667 Output Total 150 / 1999 601 / 601 Balance -150 / -1640 -39.333 / -39.333 Intake: IV 201.667 / 201.667 Potassium Chloride / Wtr 10 meq 201.667 / 201.667 In 100 ml @ 100 mls/hr IV Q1H [facility] Rx#:[id number] Oral 360 / 360 Intake (Blood Product) Amt 0 / 0 Packed Cells, Leukoreduced 0 / 0 Unit [id number] Output: Urine 150 / 2000 600 / 600 # Bowel Movements Other: # Unmeasured Voids 1 Diagnostic Findings ECHO 09/02/2023 RV size normal. EF 60-65%. Mild concentric LVH. LV wall motion is normal. Moderate mitral annular calcification (3) Hypertension Hypertension type: unspecified Qualified Code(s): I10 - Essential (primary) h ypertension (5) Anemia Anemia type: unspecified type Qualified Code(s): D64.9 - Anemia, unspecified
[2023-10-31 20:08] LABS: Calcium 8.7 mg/dl (8.6-10.3); Creatinine Clr Calc Pharmacy 24.5 ml/min; Est GFR (African American) 32.8 ml/min; Est GFR (Non-African American) 28.3 ml/min; Potassium 3.6 mmol/L (3.5-5.1)
--- NOTE | 2023-10-31 20:23 | Communication Note ---
Date of Service: October 31, 2023 Attempted to reach patient's daughter by phone 3 times over a one hour interval to provide updates. Unable to reach her. I left two voicemail messages. Hope to either see her during rounds tomorrow or reach her by phone tomorrow. Sandra Lazaro, Cardiology
[2023-11-01 06:08] LABS: Hemoglobin 8.7 g/dl (12.0-16.0); Mean Corpuscular Hemoglobin 31.3 pg (25.0-34.0); Mean Corpuscular Hgb Conc 32.2 g/dL (32.0-36.0); Mean Corpuscular Volume 97.1 fL (80.0-100.0); Mean Platelet Volume 8.9 fL (9.4-12.4); Platelet Count 231 K/uL (130-400); RDW Coefficient of Variation 16.1 % (11.5-14.5); RDW Standard Deviation 57.9 fL (36.4-46.3); Red Blood Count 2.78 M/uL (4.20-5.40); White Blood Count 6.36 K/ul (4.8-10.8)
[2023-11-01 06:35] LABS: Albumin Globulin Ratio 1.1 (0.9-2); Albumin Level 3.6 gm/dl (3.4-5.0); Bilirubin,Total 0.5 mg/dl (0.2-1.0); Calcium 8.7 mg/dl (8.6-10.3); Creatinine Clr Calc Pharmacy 26.8 ml/min; Est GFR (African American) 36.3 ml/min; Est GFR (Non-African American) 31.3 ml/min; Globulin 3.2 gm/dl (2.5-4.0); Magnesium 1.6 mg/dl (1.7-2.4); Phosphorus 3.6 mg/dl (2.5-4.9); Potassium 3.7 mmol/L (3.5-5.1); Total Protein 6.8 gm/dl (6.0-8.3)
--- NOTE | 2023-11-01 06:56 | Hospitalist Progress Note ---
Date of Service November 01, 2023 Assessment & Plan (1) CHF (congestive heart failure): (2) LBBB (left bundle branch block): (3) Bilateral lower extremity edema: (4) Hypertension: (5) Anemia: (6) Diabetes mellitus, type II, insulin dependent: (7) IgG gammopathy: (8) CKD (chronic kidney disease): Plan Ms. Urrutia is an 88 year old woman with past medical history remarkable for chronic heart failure with preserved EF (EF 60%, TTE 2023), PVD, hypertension, hyperlipidemia, DM 2 insulin requiring, CKD 4(baseline creatinine 1.7),MGUS/IgG Gammopathy, familial hypocalciuric hypercalcemia, carotid disease and renal artery stenosis, mood disorder admitted on 10/29 for acute heart failure with preserved EF. Patient follows Dr. Schroeder, who increased lasix dosing from MWF to every other day. Patient not feeling improved despite continuous oxygen use. Discussed case with Dr. Frye, heme/onc. Further anemia labs ordered and 1 UPRBC ordered and administered. Labs with low B12, folate, and iron (obtained prior to transfusion). Will replace PO. #Acute on chronic anemia, likely multifactorial iso CKD, IgG gammopathy #Iron Deficiency Recent anemia labs as Op: Macrocytic anemia with low TIBC of 227, iron 46, Transferrin 20, folic acid 7.2, vit b 12 391 Referral recently placed regarding macrocytic anemia, renal insufficiency, IgG kappa clonal gammopathy to OP hematology SPEP on 10/13 revealed a monoclonal IgG kappa gammopathy This is not dissimilar to immunofixation results from 08/[address] Nunez in 05/2023 regarding this finding, however at that time anemia stable with hgb of 12. Add on reticulocyte count: notably elevated Discussed case over phone with Dr. Casey Frye 10/30 -Immunofixation pending -Anemia labs, ferritin 82 , iron 30 TIBC 228, b12 199 folate 7.54 -Starting oral b12, folate, and iron supplementation as low to lower normal values for above - ldh, haptoglobin pending -Hair test negative -s/p 1 unit PRBC 10/30 for question of symptomatic anemia - goal >8 hgb -Will need follow up with Hematology upon discharge #Acute Heart failure with preserved EF #Mild Trop elevation, appears to have chronic elevation ECHO 08/14/2023, EF 60-65%, G1DD, no PHTN BNP 414 10/29 *down from prior of 1221 in 08/2023 Home regimen: Hydralazine 100mg TID, Isordil 30mg TID, coreg 37.5 BID, amlodipine 10mg Prior admissions: verapamil discontinued in favor of amlodipine, ANANT discontinued, labetalol for coreg -s/p IV lasix Declined liu catheter placement -Encourage IOs Daily weights -Continue Coreg, amlodipine 10mg daily, hydralazine 100mg TID -allow for pressures in 160s at this time -Cardiology on consult, Lasix IV 40 daily at this time, plan to likely transition to daily PO regimen #Chronic hypoxic resp failure, requiring continuous O2 #Nocturnal Hypoxemia #Daytime fatigue given nocturnal hypertension and question of nocturnal hypoxemia, plan for overnight pulse oximetry test Qualifies for home oxygen at night 2L Patient now on continuous home O2, will discuss portability with CM #NSVT #Chronic LBBB Asymptomatic, < 30seconds -Continue BB as above -Cardiology consult, continue current coreg dosing #CKD IV #Renal artery stenosis. Left 50% origin stenosis & atrophic right kidney, on 2022 renal duplex Avoid nephrotoxic agents, including ANANT/ARB Nephrology consult to discuss ongoing diuresis, awaiting recommendations Close Op follow up #Asymptomatic 50-69% SLIME stenosis, stable velocities on most recent duplex #Asymptomatic < 50% LICA stenosis Followed with vascular surgery for R ICA stenosis Continue home ASA and statin #Hypoglycemic episode #DMII A1C 5.0% , may be falsely low 2/2 anemia, however, patient doing well with no insulin requirements Tresiba 30U daily, Jardiance, Tradjenta, repaglinide -SSI, hold glargine 2/2 hypoglycemic episode -Discussed likely holding insulin upon discharge with follow up with [facility] clinic to discuss further titration #Depression Continue Sertraline DVT ppx: teds, scds Lines: PIV x 1 FEN/GI: HH/DM diet with fluid restriction of 2000ml daily CODE: Full code - discussed with pt at bedside Admission and Anticipated Discharge Date Admission Date: October 30, 2023 Subjective MARIO Reports feeling much improved overnight, denies any acute concerns and states she feels well rested. She denies acute SOB, chest pain, or other acute concerns She reports subjective improvement in her BLE swelling Physical Exam Constitutional: WD/WN, vitals as above Respiratory: normal respiratory effort, lungs clear to auscultation 2LNc Cardiovascular: RRR, no murmur, no edema Gastrointestinal (Abdomen): normal bowel sounds, soft, nontender, no hepatosplenomegaly Results & Data Results & Data Vital Signs (Past 12 Hours) Vital Signs Temp Pulse Pulse Resp BP Pulse Ox O2 Del Method 11/01/23 03:34 36.9 C 76 18 139/67 95 Nasal Cannula 10/31/23 22:43 77 10/31/23 22:39 36.8 C 78 16 156/67 H 97 Nasal Cannula 10/31/23 20:10 Nasal Cannula 10/31/23 19:42 36.8 C 80 20 148/67 H 94 Nasal Cannula O2 Flow Rate 11/01/23 03:34 2 10/31/23 22:43 10/31/23 22:39 2 10/31/23 20:10 2 10/31/23 19:42 2 Laboratory Results Short CBC 11/01/23 Range/Units 05:49 WBC 6.36 (4.8-10.8) K/ul Hgb 8.7 L (12.0-16.0) g/dl Hct 27.0 L (37.0-47.0) % Plt Count 231 (130-400) K/uL BMP 10/31/23 10/31/23 11/01/23 05:53 19:07 05:49 Sodium 140 137 138 Potassium 2.9 L D 3.6 D 3.7 Chloride 105 102 104 Carbon Dioxide 30 27 28 BUN 19 24 H 25 H Creatinine 1.56 H 1.60 H 1.47 H Glucose 48 L* 124 H 134 H Calcium 8.8 8.7 8.7 Liver Function 11/01/23 Range/Units 05:49 Total Bilirubin 0.5 (0.2-1.0) mg/dl AST 16 (13-39) U/L ALT 9 (7-52) U/L Alkaline Phosphatase 32 L (34-104) U/L Albumin 3.6 (3.4-5.0) gm/dl Medications Administered Home Medications Medication Instructions Recorded Confirmed Last Taken acetaminophen 500 mg tablet 1,000 mg PO BID 10/31/21 10/30/23 08/12/23 08:00 aspirin 81 mg tablet,delayed 81 mg PO QAM 10/31/21 10/30/2308/12/24 release repaglinide 2 mg tablet 2 mg PO AC 10/31/21 10/30/23 08/12/23 12:00 sertraline 50 mg tablet 25 mg (1/2 x 50 mg) PO QAM #30 tabs 11/08/21 10/30/23 08/12/23 linagliptin 5 mg tablet (Tradjenta) 5 mg PO DAILY 12/16/21 10/30/23 08/12/23 loratadine 10 mg tablet 10 mg PO HS 12/16/21 10/30/23 08/11/23 atorvastatin 80 mg tablet 80 mg PO HS 09/02/22 10/30/23 08/11/23 empagliflozin 25 mg tablet 25 mg PO DAILY 09/02/22 10/30/23 08/12/23 (Jardiance) isosorbide dinitrate 30 mg tablet 30 mg PO TID #90 tabs 09/04/22 10/30/23 08/12/23 12:00 coQ10 (ubiquinol) 200 mg capsule 200 mg PO DAILY 08/12/23 10/30/23 08/12/23 insulin degludec 100 unit/mL (3 30 unit subcut QAM 08/12/23 10/30/23 08/12/23 mL) subcutaneous pen (Tresiba FlexTouch U-100 insulin) oizvggea-nso-rdvucn 5 mg-zeaxanth 1 cap PO QID 08/12/23 10/30/23 08/12/23 12:00 1 mg-bilberry 7.5 mg-herbal capsule ([employer] Health Formula) amlodipine 5 mg tablet (Norvasc) 10 mg (2 x 5 mg) PO DAILY #60 tabs 09/07/23 10/30/23 Unknown carvedilol 25 mg tablet 37.5 mg (1.5 x 25 mg) PO BIDM #90 09/07/23 10/30/23 Unknown tabs magnesium chloride 64 mg 64 mg PO DAILY #30 tabs 09/07/23 10/30/23 Unknown (magnesium chloride) tablet,delayed release (Mag 64) furosemide 40 mg tablet 40 mg PO .EVERY OTHER DAY 10/30/23 10/30/23 10/29/23 hydralazine 100 mg tablet 100 mg PO TID 10/30/23 10/30/23 Unknown potassium chloride 20 mEq 20 meq PO QAM 10/30/23 10/30/23 Unknown tablet,extended release(part/cryst) Active Medications Generic Name Dose Route Start Last Admin Trade Name Esdras PRN Reason Stop Dose Admin Acetaminophen 1,000 mg 10/30/23 21:00 10/31/23 20:14 Acetaminophen 500 Mg Tab PO 11/29/23 20:59 1,000 mg BID LUCAS Administration Amlodipine Besylate 10 mg 10/31/23 09:00 10/31/23 09:12 Amlodipine Besylate 5 Mg Tab PO 11/30/23 08:59 10 mg DAILY LUCAS Administration Aspirin 81 mg 10/31/23 09:00 10/31/23 09:12 Aspirin 81 Mg Ectab PO 11/30/23 08:59 81 mg QAM LUCAS Administration Atorvastatin Calcium 80 mg 10/30/23 21:00 10/31/23 20:15 Atorvastatin 40 Mg Tab PO 11/29/23 20:59 80 mg HS LUCAS Administration Carvedilol 37.5 mg 10/30/23 17:00 10/31/23 17:30 Carvedilol 25 Mg Tab PO 11/29/23 16:59 37.5 mg BIDM LUCAS Administration Empagliflozin 25 mg 10/31/23 09:00 10/31/23 09:11 Empagliflozin 25 Mg Tab PO 11/30/23 08:59 25 mg DAILY LUCAS Administration Furosemide 40 mg 10/31/23 09:00 10/31/23 09:12 Furosemide 40 Mg/4 Ml Vial IV 11/30/23 08:59 40 mg QAM LUCAS Administration Hydralazine HCl 100 mg 10/30/23 22:45 10/31/23 20:15 Hydralazine Tab 50 Mg Tab PO 11/29/23 22:44 100 mg TID LUCAS Administration Insulin Aspart 0 units 10/30/23 16:30 10/31/23 20:33 Insulin Aspart Per Unit Charge SC 11/29/23 16:29 Not Given ACHS LUCAS Isosorbide Dinitrate 30 mg 10/30/23 17:00 10/31/23 17:30 Isosorbide Dinitrate 20 Mg Tab PO 11/29/23 16:59 30 mg TID@0700,1200,1700 LUCAS Administration Loratadine 10 mg 10/30/23 21:00 10/31/23 20:15 Loratadine 10 Mg Tab PO 11/29/23 20:59 10 mg HS LUCAS Administration Lorazepam 0.5 mg 10/31/23 12:49 10/31/23 13:03 Lorazepam 0.5 Mg Tab PO 11/30/23 12:48 0.5 mg Q4H PRN Administration Anxiety Magnesium Chloride 64 mg 10/31/23 09:00 10/31/23 09:11 Magnesium Chloride W/Calcium 64mg Delayed Rel Tab PO 11/30/23 08:59 64 mg DAILY LUCAS Administration Miscellaneous 15 - 30 gm 10/30/23 15:51 10/31/23 07:21 Carbohydrates For Hypoglycemia PO 11/29/23 15:50 30 gm UD PRN Administration Hypoglycemia Protocol Multivitamins/Minerals 1 tab 10/31/23 09:00 10/31/23 09:12 Cerovite Adv Formula Tab PO 11/30/23 08:59 1 tab DAILY LUCAS Administration Sertraline HCl 25 mg 10/31/23 09:00 10/31/23 09:11 Sertraline Hcl 50 Mg Tablet PO 11/30/23 08:59 25 mg QAM LUCAS Administration (1) CHF (congestive heart failure) Heart failure chronicity: acute on chronic Heart failure type: unspecified Qualified Code(s): I50.9 - Heart failure, unspecified (4) Hypertension Hypertension type: unspecified Qualified Code(s): I10 - Essential (primary) hypertension (8) CKD (chronic kidney disease) Chronic kidney disease stage: unspecified stage Qualified Code(s): N18.9 - Chronic kidney disease, unspecified
[2023-11-01] MEDS: MAGNESIUM SULFATE / D5W 1 GM/100 ML BAG IV SCH (07:08)
[2023-11-01] MEDS: POTASSIUM CHLORIDE CRTAB 20 MEQ TABCR PO SCH (08:25)
[2023-11-01] MEDS: CYANOCOBALAMIN (B-12) 500 MCG TABLET PO SCH (08:26)
[2023-11-01] MEDS: FOLIC ACID 1 MG TAB PO SCH (08:27)
[2023-11-01] MEDS: FERROUS SULFATE 325 MG TAB PO SCH (08:27)
--- NOTE | 2023-11-01 09:32 | Cardiology Progress Note ---
Date of Service November 01, 2023 Assessment & Plan (1) Acute on chronic diastolic HF (heart failure): (2) LBBB (left bundle branch block): Plan: -Chronic, normal LVEF echo August, at [facility] (3) Hypertension: Plan: -Longstanding h/o labile HTN (4) Bilateral lower extremity edema: (5) Anemia: Plan 1. Acute on chronic diastolic HF 2. Hypoxia 3. Macrocytic anemia s/p 1 unit PRBCs 4. HTN 5. CKD stage III 6. T2 DM 7. Carotid artery disease 8. Renal artery stenosis 9. Chronic vertigo 10. LBBB- chronic , normal LVEF 11. IgG kappa clonal gammopathy -Echocardiogram performed at [place] 08/2023, with only mild concentric left ventricular hypertrophy, septal/posterior wall thickness 1.2 cm -Continue IV lasix 40mg daily -Consider transition to torsemide 20 mg daily as compared to 40 mg every other day at time of discharge. -High blood pressure reading noted this morning, however patient with history of labile hypertension, and other readings have been acceptable. She is due for multiple morning blood pressure medications. -Hgb 7.5--> 8.7 status post transfusion of 1 unit packed red blood cells on 10/31/2023. Patient due to have outpatient hematology follow-up. Sandra Lazaro, This chart was completed in part utilizing Speech Voice Recognition Software. Grammatical errors, random word insertions, pronoun errors, and incomplete sentences are an occasional consequence of this system due to software limitations, ambient noise, and hardware issues. Any formal questions or concerns about the content, text, or information contained within the body of this dictation should be directly addressed to the provider for clarification. Admission and Anticipated Discharge Date Admission Date: October 30, 2023 Subjective Patient seen in cardiology follow up. She states that she feels significantly improved from a fatigue standpoint having received transfusion of a unit of packed red blood cells yesterday. Telemetry reveals sinus rhythm with rates in the range of 70 to 80 bpm. Physical Exam Constitutional: WD/WN, vitals as above + ill appearing (+pale. +frail elderly) Eyes: PERRL, conjunctivae normal, anicteric sclerae Neck: trachea midline, no thyromegaly Respiratory: normal respiratory effort, lungs clear to auscultation Auscultation: no crackles, no rales, no rhonchi and no wheezes Cardiovascular: RRR, no murmur, no edema Rate/Rhythm: regular rate and regular rhythm Heart Sounds: normal S1 and normal S2; no murmur Vessels: no JVD Extremities: + edema (+trace BLE edema) Gastrointestinal (Abdomen): normal bowel sounds, soft, nontender, no hepatosplenomegaly Musculoskeletal: no cyanosis or clubbing, extremities motor strength 5/5 Extremities: extremities normal to inspection Skin: no rashes, warm and dry Neurologic: PERRL, EOMI, accommodation nl, no face palsy, no dysarthria Psychiatric: A+Ox3, euthymic affect Results & Data Vital Signs (Past 12 Hours) Vital Signs Temp Pulse Pulse Resp BP Pulse Ox O2 Del Method 11/01/23 07:30 80 11/01/23 07:24 36.8 C 77 18 190/77 H 97 Nasal Cannula 11/01/23 03:34 36.9 C 76 18 139/67 95 Nasal Cannula 10/31/23 22:43 77 10/31/23 22:39 36.8 C 78 16 156/67 H 97 Nasal Cannula O2 Flow Rate 11/01/23 07:30 11/01/23 07:24 2 11/01/23 03:34 2 10/31/23 22:43 10/31/23 22:39 2 Laboratory Results Cardiac Enzymes 10/31/23 11/01/23 Range/Units 05:53 05:49 AST 16 (13-39) U/L Lactate Dehydrogenase 228 (86-244) U/L CBC 11/01/23 Range/Units 05:49 WBC 6.36 (4.8-10.8) K/ul RBC 2.78 L (4.20-5.40) M/uL Hgb 8.7 L (12.0-16.0) g/dl Hct 27.0 L (37.0-47.0) % Plt Count 231 (130-400) K/uL Comprehensive Metabolic Panel 10/31/23 11/01/23 Range/Units 19:07 05:49 Sodium 137 138 (136-145) mmol/L Potassium 3.6 D 3.7 (3.5-5.1) mmol/L Chloride 102 104 (98-107) mmol/L Carbon Dioxide 27 28 (21-32) mmol/L BUN 24 H 25 H (6-23) mg/dl Creatinine 1.60 H 1.47 H (0.6-1.2) mg/dl Glucose 124 H 134 H (70-99(Fasting)) mg/dl Calcium 8.7 8.7 (8.6-10.3) mg/dl AST 16 (13-39) U/L ALT 9 (7-52) U/L Alkaline Phosphatase 32 L (34-104) U/L Total Protein 6.8 (6.0-8.3) gm/dl Albumin 3.6 (3.4-5.0) gm/dl Intake and Output 10/31/23 11/01/23 11/01/23 22:59 06:59 14:59 Intake Total 1130 / 1691.667 100 / 100 Output Total 550 / 1151 Balance 580 / 540.667 100 / 100 Intake: IV 100 / 301.667 100 / 100 Magnesium Sulfate / D5w 1 gm In 100 / 100 100 ml @ 50 mls/hr IV Q2H LUCAS Rx#:[id number] Potassium Chloride / Wtr 10 meq 100 / 301.667 In 100 ml @ 100 mls/hr IV Q1H [facility] Rx#:[id number] Oral 720 / 1080 Intake (Blood Product) Amt 310 / 310 Packed Cells, Leukoreduced 310 / 310 Unit [id number] Output: Urine 550 / 1150 Other: Weight 84.7 kg Weight Measurement Method Built in [facility] (3) Hypertension Hypertension type: unspecified Qualified Code(s): I10 - Essential (primary) hypertension (5) Anemia Anemia type: unspecified type Qualified Code(s): D64.9 - Anemia, unspecified
--- NOTE | 2023-11-01 09:54 | Communication Note ---
Date of Service: November 01, 2023 Spoke to patient's daughter by phone. Updates provided.
[2023-11-01] MEDS: ONDANSETRON INJ 2 MG/ML 2 ML VIAL IV PRN (18:14)
--- NOTE | 2023-11-01 18:41 | XRay Report ---
KUB HISTORY: nasuea/vomting COMPARISON: Abdomen and pelvis CT 08/14/2023. FINDINGS: The bowel gas pattern is unremarkable. There are no dilated loops of small bowel to suggest an obstruction. No renal calculi. No ureteral calculi. No pneumoperitoneum or pneumatosis. Calcifie d uterine fibroid again noted within the pelvis. IMPRESSION: Nonobstructive bowel gas pattern. ACT 112: Negative or not required by law. Electronically signed by: Alber Capellan M.D. 11/01/2023 6:40 PM
--- NOTE | 2023-11-01 19:33 | Communication Note ---
Date of Service: November 01, 2023 Patient with acute nausea, vomiting, and diarrhea Patient very nervous KUB unremarkable -CT now w/o contrast 2/2 renal dysfunction -Stool pcr
[2023-11-01] MEDS: LORazepam 0.25 MG in SYRINGE 0.125 ML IV STA (19:51)
--- NOTE | 2023-11-01 21:15 | CT Scan Report ---
Exam(s): CT ABDOMEN + PELVIS Without Contrast EXAM: CT Abdomen and Pelvis Without Intravenous Contrast CLINICAL HISTORY: severe NV and diarrhea. TECHNIQUE: Axial computed tomography images of the abdomen and pelvis without intravenous contrast. CTDI is 27 mGy and DLP is 1170 mGy-cm. Automated exposure control was utilized for the study. A dose lowering technique was utilized adhering to the principles of ALARA. COMPARISON: CT abdomen and pelvis without contrast dated 08/24/2023 FINDINGS: Lung bases: Unremarkable. No mass. No consolidation. Pleural space: Layering bilateral pleural effusions, right greater than left, with the right effusion measuring approximately 2 cm in diameter. No loculation. Mediastinum: There is mild fluid in the distal thoracic esophagus without obvious esophageal mucosal thickening. ABDOMEN: Liver: Unremarkable. Gallbladder and bile ducts: Multiple calcified subcentimeter gallstones measuring up to 6 mm in diameter. The gallbladder is moderately distended without CT evidence for gallbladder wall thickening or biliary dilatation. Pancreas: Unremarkable. No ductal dilation. Spleen: Unremarkable. No splenomegaly. Adrenals: Unremarkable. No mass. Kidneys and ureters: The right kidney is atrophic in appearance. The unenhanced left kidney demonstrates normal contours. No hydronephrosis or obstructing nephrolithiasis. A cortical cyst is noted involving the inferolateral left kidney measuring 17 x 22 mm. Detailed analysis is limited on this noncontrast examination. Stomach and bowel: The stomach is mild to moderately distended with fluid and minimal hyperdense presumed ingested material. No gastric mucosal thickening. No evidence for bowel obstruction. Evaluation of the bowel mucosa is slightly limited without contrast; however, no definite focal asymmetry suggested. Diverticulosis noted most prominently involving the descending and sigmoid colon. There is focal pericolonic fat stranding adjacent to the posterior diverticula in the distal descending colonic segment. PELVIS: Appendix: The appendix is not clearly delineated. No secondary findings to suggest acute appendicitis. Bladder: Unremarkable. No stones. Reproductive: Unremarkable as visualized. ABDOMEN and PELVIS: Intraperitoneal space: Unremarkable. No free air. No significant fluid collection. Bones/joints: Grade 1 anterolisthesis of L4 on L5. Disc space narrowing with architectural hypertrophic changes and vacuum phenomenon from L3-L4 through L5-S1. No acute osseous abnormality. No dislocation. Soft tissues: Unremarkable. Vasculature: Atherosclerotic calcification of the aorta without aneurysm. Lymph nodes: Unremarkable. No enlarged lymph nodes. IMPRESSION: 1. There is mild fluid in the distal thoracic esophagus without obvious esophageal mucosal thickening. Mild to moderate fluid distention the stomach without gastric mucosal thickening. The clinical significance of this finding is indeterminant. 2. No evidence for bowel obstruction. Evaluation of the bowel mucosa is slightly limited without contrast; however, no definite focal asymmetry suggested. Diverticulosis noted most prominently involving the descending and sigmoid colon. There is focal pericolonic fat stranding adjacent to the posterior diverticula in the distal descending colonic segment. Subtle diverticulitis is suspected. 3. Layering bilateral pleural effusions, right greater than left, with the right effusion measuring approximately 2 cm in diameter. No loculation. These are new from the previous examination. 4. Cholelithiasis without associated sonographic findings to suggest acute cholecystitis. No biliary dilatation. Electronically signed by: Titus Nascimento MD 11/01/23 21:15 PM
[2023-11-02 07:09] LABS: Hematocrit (blood only) 26.7 % (37.0-47.0); Hemoglobin 8.7 g/dl (12.0-16.0); Mean Corpuscular Hemoglobin 31.2 pg (25.0-34.0); Mean Corpuscular Hgb Conc 32.6 g/dL (32.0-36.0); Mean Corpuscular Volume 95.7 fL (80.0-100.0); Mean Platelet Volume 9.1 fL (9.4-12.4); Platelet Count 197 K/uL (130-400); RDW Coefficient of Variation 15.6 % (11.5-14.5); RDW Standard Deviation 54.7 fL (36.4-46.3); Red Blood Count 2.79 M/uL (4.20-5.40); White Blood Count 6.42 K/ul (4.8-10.8)
[2023-11-02 07:24] LABS: BUN Creatinine Ratio 18.8 (10-20); Calcium 8.6 mg/dl (8.6-10.3); Creatinine Clr Calc Pharmacy 23.9 ml/min; Est GFR (African American) 31.6 ml/min; Est GFR (Non-African American) 27.2 ml/min; Magnesium 2.1 mg/dl (1.7-2.4); Phosphorus 3.5 mg/dl (2.5-4.9); Potassium 3.4 mmol/L (3.5-5.1)
[2023-11-02] MEDS: MAGNESIUM CHLORIDE W/CALCIUM 64MG DELAYED REL TAB PO SCH (08:40)
[2023-11-02 09:24] LABS: Adenovirus F 40/41 PCR Not Detected (NotDetected); Astrovirus PCR Not Detected (NotDetected); Campylobacter PCR Not Detected (NotDetected); Cryptosporidium PCR Not Detected (NotDetected); Cyclospora cayetanensis PCR Not Detected (NotDetected); Entamoeba histolytica PCR Not Detected (NotDetected); Enteroaggregative E.coli(EAEC) Not Detected (NotDetected); Enteropathogenic E.coli (EPEC) Not Detected (NotDetected); Enterotoxigenic E.coli (ETEC) Not Detected (NotDetected); Giardia lamblia PCR Not Detected (NotDetected); Plesiomonas shigelloides PCR Not Detected (NotDetected); Rotavirus A PCR Not Detected (NotDetected); Salmonella PCR Not Detected (NotDetected); Sapovirus PCR Not Detected (NotDetected); Shiga-like Toxin E.coli (STEC) Not Detected (NotDetected); Shigella/Enteroinvasive E.coli Not Detected (NotDetected); Vibrio cholerae PCR Not Detected (NotDetected); Vibrio species PCR Not Detected (NotDetected); Yersinia enterocolitica PCR Not Detected (NotDetected)
[2023-11-02 09:34] LABS: Norovirus GI/GII PCR DETECTED (NotDetected)
[2023-11-02] MEDS: ADVANCED PROBIOTIC 625 MG CAPSULE PO SCH (09:57)
[2023-11-02] MEDS: AZTREONAM 2,000 MG in DEXTROSE 5% MINI-B 100 ML IV SCH (09:57)
--- NOTE | 2023-11-02 09:58 | Surgery Consultation ---
Date of Consultation November 02, 2023 Assessment & Plan (1) Diverticulosis: doubt acute diverticulitis would not recommend abx likely GI symptoms from viral exposure no surgical issues History of Present Illness Attending Physician: Masoud King MD History of Present Illness This is an 88 female admitted with exacerbation. She was admitted to general medicine abdominal pain associated with nausea and severe diarrhea. She did claim that a provider for home care was sick and she was exposed. Currently the pain is completely resolved she still having some diarrhea but no nausea no vomiting. CT scan showed a trace of inflammation around some diverticular disease. She has not complained of any left lower quadrant abdominal pain. She denies any fevers or chills. She denies any dysuria. Allergies Allergy/AdvReac Type Severity Reaction Status Date / Time latex Allergy Severe DIFFICULTY Verified 08/12/23 21:08 BREATHING, TONGUE SWELLS Penicillins Allergy Severe DIFFICULTY Verified 08/12/23 21:08 BREATHING, TONGUE SWELLS Sulfa (Sulfonamide Allergy Severe DIFFICULTY Verified 08/12/23 21:08 Antibiotics) BREATHING, TONGUE SWELLS Home Medications Medication Instructions Recorded Confirmed Type acetaminophen 500 mg tablet 1,000 mg PO BID 10/31/21 10/30/23 History aspirin 81 mg tablet,delayed 81 mg PO QAM 10/31/21 10/30/23 History release repaglinide 2 mg tablet 2 mg PO AC 10/31/21 10/30/23 History sertraline 50 mg tablet 25 mg (1/2 x 50 mg) PO QAM #30 tabs 11/08/21 10/30/23 Rx linagliptin 5 mg tablet (Tradjenta) 5 mg PO DAILY 12/16/21 10/30/23 History loratadine 10 mg tablet 10 mg PO HS 12/16/21 10/30/23 History atorvastatin 80 mg tablet 80 mg PO HS 09/02/22 10/30/23 History empagliflozin 25 mg tablet 25 mg PO DAILY 09/02/22 10/30/23 History (Jardiance) isosorbide dinitrate 30 mg tablet 30 mg PO TID #90 tabs 09/04/22 10/30/23 Rx coQ10 (ubiquinol) 200 mg capsule 200 mg PO DAILY 08/12/23 10/30/23 History insulin degludec 100 unit/mL (3 30 unit subcut QAM 08/12/23 10/30/23 History mL) subcutaneous pen (Tresiba FlexTouch U-100 insulin) [id number] 5 mg-zeaxanth 1 cap PO QID 08/12/23 10/30/23 History 1 mg-bilberry 7.5 mg-herbal capsule (Macular Health Formula) amlodipine 5 mg tablet (Norvasc) 10 mg (2 x 5 mg) PO DAILY #60 tabs 09/07/23 10/30/23 Rx carvedilol 25 mg tablet 37.5 mg (1.5 x 25 mg) PO BIDM #90 09/07/23 10/30/23 Rx tabs magnesium chloride 64 mg 64 mg PO DAILY #30 tabs 09/07/23 10/30/23 Rx (magnesium chloride) tablet,delayed release (Mag 64) furosemide 40 mg tablet 40 mg PO .EVERY OTHER DAY 10/30/23 10/30/23 History hydralazine 100 mg tablet 100 mg PO TID 10/30/23 10/30/23 History potassium chloride 20 mEq 20 meq PO QAM 10/30/23 10/30/23 History tablet,extended release(part/cryst) Patient History Medical History (Updated 11/02/23 @ 09:59 by Phuc Caal MD) Diabetes mellitus with kidney complication, without long-term current use of insulin CKD (chronic kidney disease) stage 3, GFR 30-59 ml/min Anxiety Tingling Headache Hypertensive urgency DM2 (diabetes mellitus, type 2) H/O: HTN (hypertension) Surgical History Hx of cataract surgery Social History Smoking Status: Never smoker Second Hand Exposure: Yes; Do You Dip or Chew Tobacco: No; Hx Alcohol Use: Yes Alcohol type: wine Hx Substance Use: No Preferred Language: Setswana Communication Ability: Effective 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: No Beliefs That Will Affect Care: None marital status: / Current Living Situation: Alone Other Information That Helps Us Care for You: No Feels Safe at Home: Yes Assistive Devices: Walker Review of Systems Constitutional: no fever, no chills and no anorexia Eyes: no problem reported Ear, Nose, Mouth, Throat: no problem reported Respiratory: + dyspnea; no cough Cardiovascular: no chest pain Gastrointestinal: + diarrhea/loose stools; no abdominal pa in, no nausea and no vomiting Genitourinary: no dysuria Musculoskeletal: no back pain Integumentary: no problem reported Neurologic: no localized weakness and no generalized weakness Psychiatric: no behavioral changes Physical Exam Constitutional: WD/WN, vitals as above Eyes: PERRL, conjunctivae normal, anicteric sclerae Neck: trachea midline Respiratory: normal respiratory effort, lungs clear to auscultation Auscultation: + diminished lung sounds Cardiovascular: RRR, no murmur, no edema Gastrointestinal (Abdomen): Inspection/Auscultation: abdomen normal to inspection and normal bowel sounds; abdomen not distended Percussion/Palpation: abdomen soft; abdomen nontender, no guarding and abdomen not rigid Musculoskeletal: Head/Neck/Chest: normocephalic and head atraumatic Skin: no rashes, warm and dry Results & Data Vital Signs (Past 12 Hours) Vital Signs Temp Pulse Pulse Resp BP BP Pulse Ox 11/02/23 08:00 11/02/23 08:00 77 11/02/23 07:46 36.9 C 79 18 171/67 H 97 11/02/23 03:38 36.8 C 69 18 153/74 H 96 11/01/23 21:59 91 H O2 Del Method O2 Flow Rate 11/02/23 08:00 Nasal Cannula 2 11/02/23 08:00 11/02/23 07:46 Nasal Cannula 97 11/02/23 03:38 Nasal Cannula 2 11/01/23 21:59 Diagnostic Findings EXAM: CT Abdomen and Pelvis Without Intravenous Contrast CLINICAL HISTORY: severe NV and diarrhea. TECHNIQUE: Axial computed tomography images of the abdomen and pelvis without intravenous contrast. CTDI is 27 mGy and DLP is 1170 mGy-cm. Automated exposure control was utilized for the study. A dose lowering technique was utilized adhering to the principles of ALARA. COMPARISON: CT abdomen and pelvis without contrast dated 08/24/2023 FINDINGS: Lung bases: Unremarkable. No mass. No consolidation. Pleural space: Layering bilateral pleural effusions, right greater than left, with the right effusion measuring approximately 2 cm in diameter. No loculation. Mediastinum: There is mild fluid in the distal thoracic esophagus without obvious esophageal mucosal thickening. ABDOMEN: Liver: Unremarkable. Gallbladder and bile ducts: Multiple calcified subcentimeter gallstones measuring up to 6 mm in diameter. The gallbladder is moderately distended without CT evidence for gallbladder wall thickening or biliary dilatation. Pancreas: Unremarkable. No ductal dilation. Spleen: Unremarkable. No splenomegaly. Adrenals: Unremarkable. No mass. Kidneys and ureters: The right kidney is atrophic in appearance. The unenhanced left kidney demonstrates normal contours. No hydronephrosis or obstructing nephrolithiasis. A cortical cyst is noted involving the inferolateral left kidney measuring 17 x 22 mm. Detailed analysis is limited on this noncontrast examination. Stomach and bowel: The stomach is mild to moderately distended with fluid and minimal hyperdense presumed ingested material. No gastric mucosal thickening. No evidence for bowel obstruction. Evaluation of the bowel mucosa is slightly limited without contrast; however, no definite focal asymmetry suggested. Diverticulosis noted most prominently involving the descending and sigmoid colon. There is focal pericolonic fat stranding adjacent to the posterior diverticula in the distal descending colonic segment. PELVIS: Appendix: The appendix is not clearly delineated. No secondary findings to suggest acute appendicitis. Bladder: Unremarkable. No stones. Reproductive: Unremarkable as visualized. ABDOMEN and PELVIS: Intraperitoneal space: Unremarkable. No free air. No significant fluid collection. Bones/joints: Grade 1 anterolisthesis of L4 on L5. Disc space narrowing with architectural hypertrophic changes and vacuum phenomenon from L3-L4 through L5-S1. No acute osseous abnormality. No dislocation. Soft tissues: Unremarkable. Vasculature: Atherosclerotic calcification of the aorta without aneurysm. Lymph nodes: Unremarkable. No enlarged lymph nodes. IMPRESSION: 1. There is mild fluid in the distal thoracic esophagus without obvious esophageal mucosal thickening. Mild to moderate fluid distention the stomach without gastric mucosal thickening. The clinical significance of this finding is indeterminant. 2. No evidence for bowel obstruction. Evaluation of the bowel mucosa is slightly limited without contrast; however, no definite focal asymmetry suggested. Diverticulosis noted most prominently involving the descending and sigmoid colon. There is focal pericolonic fat stranding adjacent to the posterior diverticula in the distal descending colonic segment. Subtle diverticulitis is suspected. 3. Layering bilateral pleural effusions, right greater than left, with the right effusion measuring approximately 2 cm in diameter. No loculation. These are new from the previous examination. 4. Cholelithiasis without associated sonographic findings to suggest acute cholecystitis. No biliary dilatation.
[2023-11-02] MEDS: metroNIDAZOLE 500 MG/100 ML BAG IV SCH (10:30)
--- NOTE | 2023-11-02 12:17 | Cardiology Progress Note ---
Date of Service November 02, 2023 Assessment & Plan (1) Acute on chronic diastolic HF (heart failure): (2) LBBB (left bundle branch block): Plan: -Chronic, normal LVEF echo August, at [facility] (3) Hypertension: Plan: -Longstanding h/o labile HTN (4) Bilateral lower extremity edema: (5) Anemia: Plan 1. Acute on chronic diastolic HF 2. Hypoxia 3. Macrocytic anemia s/p 1 unit PRBCs 4. HTN 5. CKD stage III 6. T2 DM 7. Carotid artery disease 8. Renal artery stenosis 9. Chronic vertigo 10. 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 -High blood pressure reading noted this morning, however patient with history of labile hypertension, and other readings have been acceptable. She is due for multiple morning blood pressure medications. -Hgb 7.5--> 8.7 status post transfusion of 1 unit packed red blood cells on 10/31/2023. Patient due to have outpatient hematology follow-up. 11/02/23: Overnight patient developed acute nausea/vomiting/diarrhea and tested + for norovirus. CT scan also suggestive of possible diverticulitis. Volume status improved this morning. No edema noted. Oxygen status also improved. Given her acute GI illness, will hold IV diuretics today. Monitor I+O's. Supplement and monitor potassium and magnesium. Potassium 3.4 this morning and she received 40 meq of potassium. HTN noted this morning prior to AM meds. Continue amlodipine, carvedilol, Isordil, and hydralazine. Spironolactone previously discontinued due to hyperkalemia and hyponatremia. Pending GI illness and volume status, consider resuming diuretics tomorrow. Case discussed with Dr. Billy I spent a total of 35 minutes on the date of service in preparation, delivery, and documentation of the care provided to this patient, excluding any time spent in the performance of separately billed services. May Gipson PA-C Department of Cardiology, [facility] This chart was completed in part utilizing Speech Voice Recognition Software. Grammatical errors, random word insertions, pronoun errors, and incomplete sentences are an occasional consequence of this system due to software limitations, ambient noise, and hardware issues. Any formal questions or concerns about the content, text, or information contained within the body of this dictation should be directly addressed to the provider for clarification. Admission and Anticipated Discharge Date Admission Date: October 30, 2023 Supervising Physician Co-Signing Physician Notes I have personally performed a history and physical examination on the patient. I have reviewed the advanced practitioner's documentation on the date of service referenced in note, and I agree with, and take responsibility for the plan of care. Hold diuretic therapy in the setting of ongoing nausea, vomiting, and diarrhea. Monitor hemoglobin. Transfuse to maintain hemoglobin greater than 8.0 g/dL. Supplement potassium as indicated. Patient received 40 meq p.o. today. Patient previously treated with spironolactone however discontinued due to hyperkalemia and hyponatremia. I spent a total of 25 minutes on the date of service in preparation, delivery, and documentation of the care provided to this patient, excluding any time spent in the performance of separately billed services. Subjective Patient resting in bed. Feeling poorly. Last evening, patient developed abdominal pain with sudden onset nausea, vomiting, and diarrhea. CT scan demonstrating possible diverticulitis. This morning stool testing came back positive for norovirus. Apparently home nursing staff had been ill last week with GI illness. This morning she denies SOB, laying supine without dyspnea. No chest pain. ongoing abdominal pain and nausea reported. Review of Systems Review of Systems: All systems reviewed & are unremarkable except as noted in HPI & below Physical Exam Constitutional: WD/WN, vitals as above + ill appearing (+pale. +frail elderly) Eyes: PERRL, conjunctivae normal, anicteric sclerae Neck: trachea midline, no thyromegaly Respiratory: normal respiratory effort, lungs clear to auscultation Auscultation: no crackles, no rales, no rhonchi and no wheezes Cardiovascular: RRR, no murmur, no edema Rate/Rhythm: regular rate and regular rhythm Heart Sounds: normal S1 and normal S2; no murmur Vessels: no JVD Extremities: + edema (+trace BLE edema) Gastrointestinal (Abdomen): normal bowel sounds, soft, nontender, no hepatosplenomegaly Musculoskeletal: no cyanosis or clubbing, extremities motor strength 5/5 Extremities: extremities normal to inspection Skin: no rashes, warm and dry Neurologic: PERRL, EOMI, accommodation nl, no face palsy, no dysarthria Psychiatric: A+Ox3, euthymic affect Results & Data Vital Signs (Past 12 Hours) Vital Signs Temp Pulse Pulse Resp BP BP Pulse Ox 11/02/23 08:00 11/02/23 08:00 77 11/02/23 07:46 36.9 C 79 18 171/67 H 97 11/02/23 03:38 36.8 C 69 18 153/74 H 96 O2 Del Method O2 Flow Rate 11/02/23 08:00 Nasal Cannula 2 11/02/23 08:00 11/02/23 07:46 Nasal Cannula 97 11/02/23 03:38 Nasal Cannula 2 Laboratory Results CBC 11/02/23 Range/Units 06:43 WBC 6.42 (4.8-10.8) K/ul RBC 2.79 L (4.20-5.40) M/uL Hgb 8.7 L (12.0-16.0) g/dl Hct 26.7 L (37.0-47.0) % Plt Count 197 (130-400) K/uL Comprehensive Metabolic Panel 11/02/23 Range/Units 06:43 Sodium 135 L (136-145) mmol/L Potassium 3.4 L (3.5-5.1) mmol/L Chloride 102 (98-107) mmol/L Carbon Dioxide 26 (21-32) mmol/L BUN 31 H (6-23) mg/dl Creatinine 1.65 H (0.6-1.2) mg/dl Glucose 161 H (70-99(Fasting)) mg/dl Calcium 8.6 (8.6-10.3) mg/dl Intake and Output 11/01/23 11/02/23 11/02/23 22:59 06:59 14:59 Intake Total 160 / 790.833 200 / 200 Output Total 250 / 250 Balance -90 / 540.833 200 / 200 Intake: IV 200 / 200 Aztreonam 2,000 mg In Dextrose 100 / 100 5% Mini-B 100 ml @ 100 mls/hr IV Q12 LUCAS Rx#:[id number] metroNIDAZOLE 500 mg In 100 ml 100 / 100 @ 100 mls/hr IV Q8H LUC[facility] Rx#: [id number] Oral 160 / 520 Output: Urine 250 / 250 Other: Other Intake Source sips Weight 85 kg Weight Measurement Method Built in Bedscale Diagnostic Findings Telemetry reviewed: NSR in the 's; Occ PAC/PVC Medications Administered CBC 11/02/23 Range/Units 06:43 WBC 6.42 (4.8-10.8) K/ul RBC 2.79 L (4.20-5.40) M/uL Hgb 8.7 L (12.0-16.0) g/dl Hct 26.7 L (37.0-47.0) % Plt Count 197 (130-400) K/uL Comprehensive Metabolic Panel 11/02/23 Range/Units 06:43 Sodium 135 L (136-145) mmol/L Potassium 3.4 L (3.5-5.1) mmol/L Chloride 102 (98-107) mmol/L Carbon Dioxide 26 (21-32) mmol/L BUN 31 H (6-23) mg/dl Creatinine 1.65 H (0.6-1.2) mg/dl Glucose 161 H (70-99(Fasting)) mg/dl Calcium 8.6 (8.6-10.3) mg/dl Intake and Output 11/01/23 11/02/23 11/02/23 22:59 06:59 14:59 Intake Total 160 / 790.833 200 / 200 Output Total 250 / 250 Balance -90 / 540.833 200 / 200 Intake: IV 200 / 200 Aztreonam 2,000 mg In Dextrose 100 / 100 5% Mini-B 100 ml @ 100 mls/hr IV Q12 [facility]UC[facility] Rx#:[id number] metroNIDAZOLE 500 mg In 100 ml 100 / 100 @ 100 mls/hr IV Q8H [facility]UC[facility] Rx#: [id number] Oral 160 / 520 Output: Urine 250 / 250 Other: Other Intake Source sips Weight 85 kg Weight Measurement Method [facility] ([facility]) Hypertension Hypertension type: unspecified Qualified Code(s): I10 - Essential (primary) hypertension (5) Anemia Anemia type: unspecified type Qualified Code(s): D64.9 - Anemia, unspecified
[2023-11-02] MEDS: LOPERAMIDE HCL 2 MG CAP PO PRN (13:47)
[2023-11-02] MEDS: ALUMINUM/MAGNESIUM/SIMETH (MAALOX MAX) 30 ML UDC PO PRN (14:12)
--- NOTE | 2023-11-02 16:57 | Hospitalist Progress Note ---
Date of Service November 02, 2023 Assessment & Plan (1) CHF (congestive heart failure): (2) LBBB (left bundle branch block): (3) Bilateral lower extremity edema: (4) Hypertension: (5) Anemia: (6) Diabetes mellitus, type II, insulin dependent: (7) IgG gammopathy: (8) CKD (chronic kidney disease): Plan Ms. Urrutia is an 88 year old woman with past medical history remarkable for chronic heart failure with preserved EF (EF 60%, TTE 2023), PVD, hypertension, hyperlipidemia, DM 2 insulin requiring, CKD 4(baseline creatinine 1.7),MGUS/IgG Gammopathy, familial hypocalciuric hypercalcemia, carotid disease and renal artery stenosis, mood disorder admitted on 10/29 for acute heart failure with preserved EF. Patient follows Dr. Schroeder, who increased lasix dosing from MWF to every other day. Patient not feeling improved despite continuous oxygen use. Discussed case with Dr. Frye, heme/onc. Further anemia labs ordered and 1 UPRBC ordered and administered. Labs with low B12, folate, and iron (obtained prior to transfusion). Will replace PO. Acute on chronic anemia, likely multifactorial iso CKD, IgG gammopathy Iron Deficiency Recent anemia labs as Op: Macrocytic anemia with low TIBC of 227, iron 46, Transferrin 20, folic acid 7.2, vit b 12 391 Referral recently placed regarding macrocytic anemia, renal insufficiency, IgG kappa clonal gammopathy to OP hematology SPEP on 10/13 revealed a monoclonal IgG kappa gammopathy. Similar to immunofixation results from 08/[address] Nunez in 05/2023 regarding this finding, however at that time anemia stable with hgb of 12. --Reticulocyte count elevated 3.5. Immature reticulocyte fraction 22%. Haptog lobin pending. --Normal LDH -- Peripheral smear pending --Hair test negative --Prior provider discussed with Dr. Casey Frye 10/30 -Immunofixation, SPEP, UPEP pending -Anemia labs, ferritin 82 , iron 30 TIBC 228, b12 199 folate 7.54 -Started on oral b12, folate, and iron supplementation as low to lower normal values for above --S/P 1 unit PRBC on 10/30 for question of symptomatic anemia --Monitor CBC --Will need follow-up with heme oncology as outpatient Acute Heart failure with preserved EF Mild Trop elevation, appears to have chronic elevation --ECHO 08/14/2023, EF 60-65%, G1DD, no PHTN BNP 414 10/29 --Home regimen: Hydralazine 100mg TID, Isordil 30mg TID, coreg 37.5 BID, amlodipine 10mg Prior admissions: verapamil discontinued in favor of amlodipine, ANANT discontinued, labetalol for Coreg --Spironolactone discontinued previously secondary to hyperkalemia, hyponatremia -s/p IV lasix Declined ilu catheter placement --Monitor I's and O's, daily weight -Continue Coreg, amlodipine 10mg daily, hydralazine 100mg TID, isosorbide --Appreciate cardiology input IV Lasix held due to ongoing diarrhea currently Monitor volume status closely As per prior provider: Chronic hypoxic Resp failure, requiring continuous O2 Nocturnal Hypoxemia Daytime fatigue Given nocturnal hypertension and question of nocturnal hypoxemia, plan for overnight pulse oximetry test Qualifies for home oxygen at night 2L Patient now on continuous home O2 Will need 2 step prior to discharge Nausea, vomiting, diarrhea Secondary to norovirus infection Suspected diverticulitis--less likely per surgery --CT ABD:No evidence for bowel obstruction. Evaluation of the bowel mucosa is slightly limited without contrast; however, no definite focal asymmetry suggested. Diverticulosis noted most prominently involving the descending and sigmoid colon. There is focal pericolonic fat stranding adjacent to the posterior diverticula in the distal descending colonic segment. Subtle dive rticulitis is suspected. Cholelithiasis without associated sonographic findings to suggest acute cholecystitis. No biliary dilatation. -- Stool for C. difficile negative --Appreciate surgery input --Will avoid antibiotics for now Conservative management Isolation precautions Hypokalemia Hypomagnesemia Replace and monitor electrolytes as needed NSVT Chronic LBBB Asymptomatic, < 30seconds Continue carvedilol Appreciate cardiology input CKD IV Renal artery stenosis. -Left 50% origin stenosis & atrophic right kidney, on 2022 renal duplex Avoid nephrotoxic agents, including ANANT/ARB Monitor renal function Asymptomatic 50-69% SLIME stenosis, stable velocities on most recent duplex Asymptomatic < 50% LICA stenosis Followed with vascular surgery for R ICA stenosis Continue home ASA and statin Hypoglycemic episode DM II HbA1C 5.0% , may be falsely low due to Anemia, however, patient doing well with no insulin requirements Tresiba 30U daily, Jardiance, Tradjenta, repaglinide Continue insulin while hospitalized Avoid hypoglycemic episodes as able Will need follow-up with [facility] clinic on discharge for further adjustment of medications Depression Continue Sertraline DVT Px: Teds, scds CODE STATUS: Full code Admission and Anticipated Discharge Date Admission Date: October 30, 2023 Subjective Patient is seen and examined at bedside Reports having nausea associated with diarrhea this morning Denies any chest pain, dyspnea, abdominal pain Updated patient's daughter over the phone No other complaints Review of Systems Review of Systems: All systems reviewed & are unremarkable except as noted in Subjective Physical Exam Physical Exam: Physical Exam: Vitals signs as noted above General Appearance: Moderately built and nourished, elderly, no apparent distress Head: normocephalic, Atraumatic Eyes: normal inspection, EOMI Neck: supple, Trachea midline Respiratory/Chest: Normal breath sounds, CTA, No accessory muscle use Cardiovascular: S1, S2, No murmur Abdomen/GI:Soft, Non tender, Bowel sounds present Extremities/Musculoskeletal:normal inspection, Trace edema Neurologic/Psych:AAOX3, grossly no focal neurological deficits Skin: normal color, warm Results & Data Results & Data Vital Signs (Past 12 Hours) Vital Signs Temp Pulse Pulse Resp BP Pulse Ox O2 Del Method 11/02/23 14:55 78 11/02/23 08:00 Nasal Cannula 11/02/23 08:00 77 11/02/23 07:46 36.9 C 79 18 171/67 H 97 Nasal Cannula O2 Flow Rate 11/02/23 14:55 11/02/23 08:00 2 11/02/23 08:00 11/02/23 07:46 97 Laboratory Results Short CBC 11/02/23 Range/Units 06:43 WBC 6.42 (4.8-10.8) K/ul Hgb 8.7 L (12.0-16.0) g/dl Hct 26.7 L (37.0-47.0) % Plt Count 197 (130-400) K/uL BMP 11/02/23 06:43 Sodium 135 L Potassium 3.4 L Chloride 102 Carbon Dioxide 26 BUN 31 H Creatinine 1.65 H Glucose 161 H Calcium 8.6 (1) CHF (congestive heart failure) Heart failure chronicity: acute on chronic Heart failure type: unspecified Qualified Code(s): I50.9 - Heart failure, unspecified (4) Hypertension Hypertension type: unspecified Qualified Code(s): I10 - Essential (primary) hypertension (8) CKD (chronic kidney disease) Chronic kidney disease stage: unspecified stage Qualified Code(s): N18.9 - Chronic kidney disease, unspecified
[2023-11-02] MEDS: ACETAMINOPHEN 325 MG TAB PO PRN (21:02)
[2023-11-03 06:35] LABS: Hematocrit (blood only) 25.5 % (37.0-47.0); Hemoglobin 8.3 g/dl (12.0-16.0); Mean Corpuscular Hemoglobin 31.3 pg (25.0-34.0); Mean Corpuscular Hgb Conc 32.5 g/dL (32.0-36.0); Mean Corpuscular Volume 96.2 fL (80.0-100.0); Mean Platelet Volume 9.2 fL (9.4-12.4); Platelet Count 221 K/uL (130-400); RDW Standard Deviation 52.7 fL (36.4-46.3); Red Blood Count 2.65 M/uL (4.20-5.40); White Blood Count 8.56 K/ul (4.8-10.8)
[2023-11-03 06:54] LABS: Calcium 8.3 mg/dl (8.6-10.3); Magnesium 2.3 mg/dl (1.7-2.4); Potassium 3.8 mmol/L (3.5-5.1)
[2023-11-03 06:59] LABS: BUN Creatinine Ratio 19.6 (10-20); Creatinine Clr Calc Pharmacy 24.2 ml/min; Est GFR (Non-African American) 27.6 ml/min
--- NOTE | 2023-11-03 09:59 | Surgery Progress Note ---
Date of Service November 03, 2023 Assessment & Plan (1) Diverticulosis: Plan: no acute diveticulitis will sign off Admission and Anticipated Discharge Date Admission Date: October 30, 2023 Subjective no abdominal pain diarrhea improving Review of Systems Constitutional: no fever and no chills Respiratory: no cough and no dyspnea Cardiovascular: no chest pain Gastrointestinal: + diarrhea/loose stools; no abdominal pa in, no nausea and no vomiting Genitourinary: no dysuria Neurologic: no localized weakness and no generalized weakness Psychiatric: no behavioral changes Physical Exam Constitutional: WD/WN, vitals as above Respiratory: normal respiratory effort, lungs clear to auscultation Cardiovascular: RRR, no murmur, no edema Gastrointestinal (Abdomen): Inspection/Auscultation: abdomen normal to inspection and normal bowel sounds; abdomen not distended Percussion/P alpation: abdomen soft; abdomen nontender, no guarding and abdomen not rigid Musculoskeletal: Head/Neck/Chest: normocephalic and head atraumatic Results & Data Vital Signs (Past 12 Hours) Vital Signs Temp Pulse Pulse Resp BP Pulse Ox Pulse Ox 11/03/23 08:40 90 11/03/23 08:02 37.5 C 86 18 163/81 H 90 11/03/23 07:02 89 11/03/23 03:07 36.9 C 74 16 146/72 H 93 11/03/23 01:46 11/02/23 23:20 37.4 C 77 18 145/66 H 92 O2 Del Method O2 Del Method O2 Flow Rate O2 Flow Rate 11/03/23 08:40 Nasal Cannula 2 11/03/23 08:02 Nasal Cannula 2 11/03/23 07:02 11/03/23 03:07 Nasal Cannula 2 11/03/23 01:46 Nasal Cannula 2 11/02/23 23:20 Nasal Cannula 2
--- NOTE | 2023-11-03 10:26 | Cardiology Progress Note ---
Date of Service November 03, 2023 Assessment & Plan (1) Acute on chronic diastolic HF (heart failure): (2) LBBB (left bundle branch block): Plan: -Chronic, normal LVEF echo August, at [facility] (3) Hypertension: Plan: -Longstanding h/o labile HTN (4) Bilateral lower extremity edema: (5) Anemia: (6) Norovirus: Plan 1. Acute on chronic diastolic HF 2. Hypoxia 3. Macrocytic anemia s/p 1 unit PRBCs 4. HTN 5. CKD stage III 6. T2 DM 7. Carotid artery disease 8. Renal artery stenosis 9. Chronic vertigo 10. 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 -High blood pressure reading noted this morning, however patient with history of labile hypertension, and other readings have been acceptable. She is due for multiple morning blood pressure medications. -Hgb 7.5--> 8.7 status post transfusion of 1 unit packed red blood cells on 10/31/2023. Patient due to have outpatient hematology follow-up. 11/02/23: Overnight patient developed acute nausea/vomiting/diarrhea and tested + for norovirus. CT scan also suggestive of possible diverticulitis. Volume status improved this morning. No edema noted. Oxygen status also improved. Given her acute GI illness, will hold IV diuretics today. Monitor I+O's. Supplement and monitor potassium and magnesium. Potassium 3.4 this morning and she received 40 meq of potassium. HTN noted this morning prior to AM meds. Continue amlodipine, carvedilol, Isordil, and hydralazine. Spironolactone previously discontinued due to hyperkalemia and hyponatremia. Pending GI illness and volume status, consider resuming diuretics tomorrow. 11/03/23: Ongoing diarrhea persisted overnight. nausea and vomiting improving. Continue supportive care for norovirus. SOB at baseline. No chest pain. Continue to hold diuretics given GI illness. Monitor fluid status/SOB/hypoxia. Continue antihypertensive medications including amlodipine, carvedilol,, isordil, and hydralazine. Per review of records, LBBB was newly noted in Aug 2023. Preserved LVEF at that time. Ongoing med management recommended for now. No prior ischemic work up per outpatient records. However, given CKD and anemia with future hematology evaluation, she would be considered high risk to proceed with procedures at this time. Continue medical management. Case discussed with Dr. Billy I spent a total of 35 minutes on the date of service in preparation, delivery, and documentation of the care provided to this patient, excluding any time spent in the performance of separately billed services. May Gipson PA-C Department of Cardiology, [facility] This chart was completed in part utilizing Speech Voice Recognition Software. Grammatical errors, random word insertions, pronoun errors, and incomplete sentences are an occasional consequence of this system due to software limitations, ambient noise, and hardware issues. Any formal questions or concerns about the content, text, or information contained within the body of this dictation should be directly addressed to the provider for clarification. Admission and Anticipated Discharge Date Admission Date: October 30, 2023 Supervising Physician Co-Signing Physician Notes I have personally performed a history and physical examination on the patient. I have reviewed the advanced practitioner's documentation on the date of service referenced in note, and I agree with, and take responsibility for the plan of care. Hold diuretic therapy in the setting of poor appetite and frequent/ongoing diarrhea. Monitor hemoglobin. Transfuse to maintain hemoglobin greater than 8.0 g/dL. Supplement potassium as indicated. 40 mEq KCl ordered daily. Patient previously treated with spironolactone however discontinued due to hyperkalemia and hyponatremia. I spent a total of 25 minutes on the date of service in preparation, delivery, and documentation of the care provided to this patient, excluding any time spent in the performance of separately billed services. Subjective Patient resting in bed, sleeping. Feels "weak and washed out". Ongoing diarrhea through the night, but not as frequent. No abdominal pain. SOB is at baseline. No chest pain. No increased edema. No dizziness. Review of Systems Review of Systems: All systems reviewed & are unremarkable except as noted in HPI & below Physical Exam Constitutional: WD/WN, vitals as above + ill appearing Eyes: PERRL, conjunctivae normal, anicteric sclerae Neck: trachea midline, no thyromegaly Respiratory: normal respiratory effort, lungs clear to auscultation Auscultation: no crackles, no rales, no rhonchi and no wheezes Cardiovascular: RRR, no murmur, no edema Rate/Rhythm: regular rate and regular rhythm Heart Sounds: normal S1 and normal S2; no murmur Vessels: no JVD Extremities: no edema Gastrointestinal (Abdomen): normal bowel sounds, soft, nontender, no hepatosplenomegaly Musculoskeletal: no cyanosis or clubbing, extremities motor strength 5/5 Extremities: extremities normal to inspection Skin: no rashes, warm and dry Neurologic: PERRL, EOMI, accommodation nl, no face palsy, no dysarthria Psychiatric: A+Ox3, euthymic affect Results & Data Vital Signs (Past 12 Hours) Vital Signs Temp Pulse Pulse Resp BP Pulse Ox Pulse Ox 11/03/23 10:17 11/03/23 08:40 90 11/03/23 08:02 37.5 C 86 18 163/81 H 90 11/03/23 07:02 89 11/03/23 03:07 36.9 C 74 16 146/72 H 93 11/03/23 01:46 11/02/23 23:20 37.4 C 77 18 145/66 H 92 O2 Del Method O2 Del Method O2 Flow Rate O2 Flow Rate 11/03/23 10:17 Nasal Cannula 2 11/03/23 08:40 Nasal Cannula 2 11/03/23 08:02 Nasal Cannula 2 11/03/23 07:02 11/03/23 03:07 Nasal Cannula 2 11/03/23 01:46 Nasal Cannula 2 11/02/23 23:20 Nasal Cannula 2 Laboratory Results CBC 11/03/23 Range/Units 06:04 WBC 8.56 (4.8-10.8) K/ul RBC 2.65 L (4.20-5.40) M/uL Hgb 8.3 L (12.0-16.0) g/dl Hct 25.5 L (37.0-47.0) % Plt Count 221 (130-400) K/uL Comprehensive Metabolic Panel 11/03/23 Range/Units 06:04 Sodium 131 L (136-145) mmol/L Potassium 3.8 (3.5-5.1) mmol/L Chloride 100 (98-107) mmol/L Carbon Dioxide 22 (21-32) mmol/L BUN 32 H (6-23) mg/dl Creatinine 1.63 H (0.6-1.2) mg/dl Glucose 200 H (70-99(Fasting)) mg/dl Calcium 8.3 L (8.6-10.3) mg/dl Intake and Output 11/02/23 11/03/23 11/03/23 22:59 06:59 14:59 Intake Total 240 / 1340 900 / 1340 Output Total 601 / 601 Balance -361 / 739 900 / 739 Intake: Oral 240 / 1140 900 / 1140 Output: Urine 600 / 600 # Bowel Movements Other: Weight 85.5 kg Diagnostic Findings Telemetry reviewed: NSR, occ PVC's; HR 70-80's Medications Administered Current Inpatient Medications Acetaminophen (Acetaminophen 325 Mg Tab) 650 mg PO Q4H PRN PRN Reason: Moderate Pain (Scale 4, 5, 6) Stop: 11/29/23 15:50 Last Admin: 11/02/23 21:02 Dose: 650 mg Acetaminophen (Acetaminophen 500 Mg Tab) 1,000 mg PO BID [facility] Stop: 11/29/23 20:59 Last Admin: 11/03/23 08:26 Dose: 1,000 mg Al Hydrox/Mg Hydrox/Simethicone (Aluminum/Magnesium/Simeth (Maalox Max) 30 Ml Udc) 15 ml PO Q6H PRN PRN Reason: Dyspepsia Stop: 12/02/23 13:50 Last Admin: 11/02/23 14:12 Dose: 15 ml Amlodipine Besylate (Amlodipine Besylate 5 Mg Tab) 10 mg PO DAILY [facility] Stop: 11/30/23 08:59 Last Admin: 11/03/23 08:30 Dose: 10 mg Aspirin (Aspirin 81 Mg Ectab) 81 mg PO QAM [facility] Stop: 11/30/23 08:59 Last Admin: 11/03/23 08:28 Dose: 81 mg Atorvastatin Calcium (Atorvastatin 40 Mg Tab) 80 mg PO HS [facility] Stop: 11/29/23 20:59 Last Admin: 11/02/23 21:04 Dose: 80 mg Carvedilol (Carvedilol 25 Mg Tab) 37.5 mg PO BIDM [facility] Stop: 11/29/23 16:59 Last Admin: 11/03/23 08:28 Dose: 37.5 mg Cyanocobalamin (Cyanocobalamin (B-12) 500 Mcg Tablet) 1,000 mcg PO QAM [facility] Stop: 12/01/23 08:59 Last Admin: 11/03/23 08:28 Dose: 1,000 mcg Dextrose (Dextrose 50% 50 Ml Syringe) 25 - 50 ml IV UD PRN; Protocol PRN Reason: Hypoglycemia Protocol Stop: 11/29/23 15:50 Empagliflozin (Empagliflozin 25 Mg Tab) 25 mg PO DAILY [facility] Stop: 11/30/23 08:59 Last Admin: 11/03/23 08:31 Dose: 25 mg Ferrous Sulfate (Ferrous Sulfate 325 Mg Tab) 325 mg PO QAM [facility] Stop: 12/01/23 08:59 Last Admin: 11/03/23 08:29 Dose: 325 mg Folic Acid (Folic Acid 1 Mg Tab) 1 mg PO QAM [facility] Stop: 12/01/23 08:59 Last Admin: 11/03/23 08:29 Dose: 1 mg Furosemide (Furosemide 40 Mg/4 Ml Vial) 40 mg IV QAM [facility] Stop: 11/30/23 08:59 Last Admin: 11/01/23 08:34 Dose: 40 mg Glucagon (Glucagon For Inj 1 Mg Vial) 1 mg SQ UD PRN; Protocol PRN Reason: Hypoglycemia Protocol Stop: 11/29/23 15:50 Glucose (Glucose 40% Gel 15 Gm Tube) 15 - 30 gm PO UD PRN; Protocol PRN Reason: Hypoglycemia Protocol Stop: 11/29/23 15:50 Glucose (Glucose 10 Tab/Tube) 4 - 8 tab PO UD PRN; Protocol PRN Reason: Hypoglycemia Treatment Stop: 11/29/23 15:50 Hydralazine HCl (Hydralazine Tab 50 Mg Tab) 100 mg PO TID [facility] Stop: 11/29/23 22:44 Last Admin: 11/03/23 08:30 Dose: 100 mg Insulin Aspart (Insulin Aspart Per Unit Charge) 0 units SC ACHS [facility] Stop: 11/29/23 16:29 Last Admin: 11/03/23 09:20 Dose: 2 units Insulin Glargine (Lantus Per Unit Charge) 30 units SQ QAM [facility] Stop: 11/30/23 08:59 Isosorbide Dinitrate (Isosorbide Dinitrate 20 Mg Tab) 30 mg PO TID@0700 ,1200,1700 [facility] Stop: 11/29/23 16:59 Last Admin: 11/03/23 08:27 Dose: 30 mg Lactobacillus Acidophilus (Advanced Probiotic 625 Mg Capsule) 1,250 mg PO DAILY [facility] Stop: 12/02/23 09:44 Last Admin: 11/03/23 08:29 Dose: 1,250 mg Loperamide HCl (Loperamide Hcl 2 Mg Cap) 2 mg PO Q6H PRN PRN Reason: Diarrhea Stop: 12/02/23 12:13 Last Admin: 11/02/23 21:03 Dose: 2 mg Loratadine (Loratadine 10 Mg Tab) 10 mg PO HS [facility] Stop: 11/29/23 20:59 Last Admin: 11/02/23 21:04 Dose: 10 mg Lorazepam (Lorazepam 0.5 Mg Tab) 0.5 mg PO Q4H PRN PRN Reason: Anxiety Stop: 11/30/23 12:48 Last Admin: 11/02/23 14:31 Dose: 0.5 mg Magnesium Chloride (Magnesium Chloride W/Calcium 64mg Delayed Rel Tab) 64 mg PO BID [facility] Stop: 12/02/23 08:59 Last Admin: 11/03/23 08:29 Dose: 64 mg Miscellaneous (Carbohydrates For Hypoglycemia ) 15 - 30 gm PO UD PRN PRN Reason: Hypoglycemia Protocol Stop: 11/29/23 15:50 Last Admin: 11/01/23 16:55 Dose: 30 gm Multivitamins/Minerals (Cerovite Adv Formula Tab) 1 tab PO DAILY [facility] Stop: 11/30/23 08:59 Last Admin: 11/03/23 08:30 Dose: 1 tab Ondansetron HCl (Ondansetron Inj 2 Mg/Ml 2 Ml Vial) 4 mg IV Q4H PRN PRN Reason: Nausea And Vomiting Stop: 11/29/23 15:50 Last Admin: 11/01/23 18:14 Dose: 4 mg Potassium Chloride (Potassium Chloride Crtab 20 Meq Tabcr) 40 meq PO QAM [facility] Stop: 12/01/23 08:59 Last Admin: 11/03/23 08:30 Dose: 40 meq Sertraline HCl (Sertraline Hcl 50 Mg Tablet) 25 mg PO QAM [facility] Stop: 11/30/23 08:59 Last Admin: 11/03/23 08:30 Dose: 25 mg (3) Hypertension Hypertension type: unspecified Qualified Code(s): I10 - Essential (primary) hypertension (5) Anemia Anemia type: unspecified type Qualified Code(s): D64.9 - Anemia, unspecified
--- NOTE | 2023-11-03 16:21 | Hospitalist Progress Note ---
Date of Service November 03, 2023 Assessment & Plan (1) CHF (congestive heart failure): (2) LBBB (left bundle branch block): (3) Bilateral lower extremity edema: (4) Hypertension: (5) Anemia: (6) Diabetes mellitus, type II, insulin dependent: (7) IgG gammopathy: (8) CKD (chronic kidney disease): Plan Ms. Urrutia is an 88 year old woman with past medical history remarkable for chronic heart failure with preserved EF (EF 60%, TTE 2023), PVD, hypertension, hyperlipidemia, DM 2 insulin requiring, CKD 4(baseline creatinine 1.7),MGUS/IgG Gammopathy, familial hypocalciuric hypercalcemia, carotid disease and renal artery stenosis, mood disorder admitted on 10/29 for acute heart failure with preserved EF. Patient follows Dr. Schroeder, who increased lasix dosing from MWF to every other day. Patient not feeling improved despite continuous oxygen use. Discussed case with Dr. Fyre, heme/onc. Further anemia labs ordered and 1 UPRBC ordered and administered. Labs with low B12, folate, and iron (obtained prior to transfusion). Will replace PO. Acute on chronic anemia, likely multifactorial iso CKD, IgG gammopathy Iron Deficiency Recent anemia labs as Op: Macrocytic anemia with low TIBC of 227, iron 46, Transferrin 20, folic acid 7.2, vit b 12 391 Referral recently placed regarding macrocytic anemia, renal insufficiency, IgG kappa clonal gammopathy to OP hematology SPEP on 10/13 revealed a monoclonal IgG kappa gammopathy. Similar to immunofixation results from 08/[address] Nunez in 05/2023 regarding this finding, however at that time anemia stable with hgb of 12. --Reticulocyte count elevated 3.5. Immature reticulocyte fraction 22%. Haptog lobin pending. --Normal LDH -- Peripheral smear: Suggest likely multifactorial anemia due to CKD, IgA gammopathy, nutritional deficiency --Hair test negative --Prior provider discussed with Dr. Casey Frye 10/30 -Immunofixation, SPEP, UPEP pending -Anemia labs, ferritin 82 , iron 30 TIBC 228, b12 199 folate 7.54 -Started on oral b12, folate, and iron supplementation as low to lower normal values for above --S/P 1 unit PRBC on 10/30 for question of symptomatic anemia --Monitor CBC --Will need follow-up with heme oncology as outpatient --Hb stable Acute Heart failure with preserved EF Mild Trop elevation, appears to have chronic elevation --ECHO 08/14/2023, EF 60-65%, G1DD, no PHTN BNP 414 10/29 --Home regimen: Hydralazine 100mg TID, Isordil 30mg TID, coreg 37.5 BID, amlod ipine 10mg Prior admissions: verapamil discontinued in favor of amlodipine, ANANT discontinued, labetalol for Coreg --Spironolactone discontinued previously secondary to hyperkalemia, hyponatremia -s/p IV lasix Declined liu catheter placement --Monitor I's and O's, daily weight -Continue Coreg, amlodipine 10mg daily, hydralazine 100mg TID, isosorbide --Appreciate cardiology input IV Lasix held due to ongoing diarrhea currently Monitor volume status closely Resume diuretics as able As per prior provider: Chronic hypoxic Resp failure, requiring continuous O2 Nocturnal Hypoxemia Daytime fatigue Given nocturnal hypertension and question of nocturnal hypoxemia, plan for overnight pulse oximetry test Qualifies for home oxygen at night 2L Patient now on continuous home O2 Will need 2 step prior to discharge Nausea, vomiting, diarrhea Secondary to norovirus infection Suspected diverticulitis--less likely per surgery --CT ABD:No evidence for bowel obstruction. Evaluation of the bowel mucosa is slightly limited without contrast; however, no definite focal asymmetry suggested. Diverticulosis noted most prominently involving the descending and sigmoid colon. There is focal pericolonic fat stranding adjacent to the posterior diverticula in the distal descending colonic segment. Subtle diverticulitis is suspected. Cholelithiasis without associated sonographic findings to suggest acute cholecystitis. No biliary dilatation. -- Stool for C. difficile negative --Appreciate surgery input --Will avoid antibiotics for now Conservative management Isolation precautions Slowly improving Hypokalemia Hypomagnesemia Replace and monitor electrolytes as needed NSVT Chronic LBBB Asymptomatic, < 30seconds Continue carvedilol Appreciate cardiology input CKD IV Renal artery stenosis. -Left 50% origin stenosis & atrophic right kidney, on 2022 renal duplex Avoid nephrotoxic agents, including ANANT/ARB Monitor renal function Asymptomatic 50-69% SLIME stenosis, stable velocities on most recent duplex Asymptomatic < 50% LICA stenosis Followed with vascular surgery for R ICA stenosis Continue home ASA and statin Hypoglycemic episode DM II HbA1C 5.0% , may be falsely low due to Anemia, however, patient doing well with no insulin requirements Tresiba 30U daily, Jardiance, Tradjenta, repaglinide Continue insulin while hospitalized Avoid hypoglycemic episodes as able Will need follow-up with [facility] clinic on discharge for further adjustment of medications Depression Continue Sertraline DVT Px: Teds, scds CODE STATUS: Full code Admission and Anticipated Discharge Date Admission Date: October 30, 2023 Subjective Patient is seen and examined at bedside States feeling very tired today Poor appetite Diarrhea slowly improving No other complaints Denies any chest pain, dyspnea, abdominal pain Review of Systems Review of Systems: All systems reviewed & are unremarkable except as noted in Subjective Physical Exam Physical Exam: Physical Exam: Vitals signs as noted above General Appearance: Moderately built and nourished, elderly, no apparent distress Head: normocephalic, Atraumatic Eyes: normal inspection, EOMI Neck: supple, Trachea midline Respiratory/Chest: Normal breath sounds, CTA, No accessory muscle use Cardiovascular: S1, S2, No murmur Abdomen/GI:Soft, Non tender, Bowel sounds present Extremities/Musculoskeletal:normal inspection, Trace edema Neurologic/Psych:AAOX3, grossly no focal neurological deficits Skin: normal color, warm Results & Data Results & Data Vital Signs (Past 12 Hours) Vital Signs Temp Pulse Pulse Resp BP BP Pulse Ox 11/03/23 15:29 36.9 C 70 18 132/72 94 11/03/23 15:15 68 11/03/23 11:10 37.3 C 71 18 135/69 90 11/03/23 10:17 11/03/23 08:40 11/03/23 08:02 37.5 C 86 18 163/81 H 90 11/03/23 07:02 89 Pulse Ox O2 Del Method O2 Del Method O2 Flow Rate O2 Flow Rate 11/03/23 15:29 Nasal Cannula 2 11/03/23 15:15 11/03/23 11:10 Nasal Cannula 2 11/03/23 10:17 Nasal Cannula 2 11/03/23 08:40 90 Nasal Cannula 2 11/03/23 08:02 Nasal Cannula 2 11/03/23 07:02 Laboratory Results Short CBC 11/03/23 Range/Units 06:04 WBC 8.56 (4.8-10.8) K/ul Hgb 8.3 L (12.0-16.0) g/dl Hct 25.5 L (37.0-47.0) % Plt Count 221 (130-400) K/uL BMP 11/03/23 06:04 Sodium 131 L Potassium 3.8 Chloride 100 Carbon Dioxide 22 BUN 32 H Creatinine 1.63 H Glucose 200 H Calcium 8.3 L (1) CHF (congestive heart failure) Heart failure chronicity: acute on chronic Heart failure type: unspecified Qualified Code(s): I50.9 - Heart failure, unspecified (4) Hypertension Hypertension type: unspecified Qualified Code(s): I10 - Essential (primary) hypertension (8) CKD (chronic kidney disease) Chronic kidney disease stage: unspecified stage Qualified Code(s): N18.9 - Chronic kidney disease, unspecified
[2023-11-04 05:57] LABS: Creatinine Ur 53 mg/dL (20-275); Protein, Urine Random 119 mg/dL (5-24); Ur Protein/Creat Ratio mg/g 2245 mg/g creat (24-184); Urine Abnormal Protein Band 1 11 mg/dL (NONE DETECTED); Urine Abnormal Protein Band 2 DNR mg/dL (NONE DETECTED); Urine Abnormal Protein Band 3 DNR mg/dL (NONE DETECTED); Urine Protein/Creatinine Ratio 2.245 (0.024-0.184)
[2023-11-04 07:09] LABS: BUN Creatinine Ratio 23.3 (10-20); Creatinine Clr Calc Pharmacy 23.9 ml/min; Est GFR (Non-African American) 27.6 ml/min; Magnesium 2.6 mg/dl (1.7-2.4); Potassium 3.9 mmol/L (3.5-5.1)
[2023-11-04 11:38] LABS: Albumin 3.3 g/dL (3.8-4.8); Alpha 1 Globulin 0.4 g/dL (0.2-0.3); Alpha 2 Globulin 0.8 g/dL (0.5-0.9); Beta-1-Globulin 0.3 g/dL (0.4-0.6); Beta-2-Globulin 0.3 g/dL (0.2-0.5); Gamma Globulin 1.3 g/dL (0.8-1.7); Monoclonal Protein Band 2 DNR g/dL (NONE DETECTED); Monoclonal Protein Band 3 DNR g/dL (NONE DETECTED); Total Protein 6.5 g/dL (6.1-8.1)
--- NOTE | 2023-11-04 15:31 | Cardiology Progress Note ---
Date of Service November 04, 2023 Assessment & Plan (1) Acute on chronic diastolic HF (heart failure): (2) LBBB (left bundle branch block): Plan: -Chronic, normal LVEF echo August, at [facility] (3) Hypertension: Plan: -Longstanding h/o labile HTN (4) Bilateral lower extremity edema: (5) Anemia: (6) Norovirus: Plan 1. Acute on chronic diastolic HF 2. Hypoxia 3. Macrocytic anemia s/p 1 unit PRBCs 4. HTN 5. CKD stage III 6. T2 DM 7. Carotid artery disease 8. Renal artery stenosis 9. Chronic vertigo 10. 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 -High blood pressure reading noted this morning, however patient with history of labile hypertension, and other readings have been acceptable. She is due for multiple morning blood pressure medications. -Hgb 7.5--> 8.7 status post transfusion of 1 unit packed red blood cells on 10/31/2023. Patient due to have outpatient hematology follow-up. 11/02/23: Overnight patient developed acute nausea/vomiting/diarrhea and tested + for norovirus. CT scan also suggestive of possible diverticulitis. Volume status improved this morning. No edema noted. Oxygen status also improved. Given her acute GI illness, will hold IV diuretics today. Monitor I+O's. Supplement and monitor potassium and magnesium. Potassium 3.4 this morning and she received 40 meq of potassium. HTN noted this morning prior to AM meds. Continue amlodipine, carvedilol, Isordil, and hydralazine. Spironolactone previously discontinued due to hyperkalemia and hyponatremia. Pending GI illness and volume status, consider resuming diuretics tomorrow. 11/03/23: Ongoing diarrhea persisted overnight. nausea and vomiting improving. Continue supportive care for norovirus. SOB at baseline. No chest pain. Continue to hold diuretics given GI illness. Monitor fluid status/SOB/hypoxia. Continue antihypertensive medications including amlodipine, carvedilol,, isordil, and hydralazine. Per review of records, LBBB was newly noted in Aug 2023. Preserved LVEF at that time. Ongoing med management recommended for now. No prior ischemic work up per outpatient records. However, given CKD and anemia with future hematology evaluation, she would be considered high risk to proceed with procedures at this time. Continue medical management. 11/04/23: Diarrhea improving. Ongoing abdominal cramping noted. Supportive care recommended for norovirus. SOB at baseline. Weight continues to trend downward. IV diuretics remain on hold due to GI illness. Consider resuming oral diuretics when GI upset improves. Likely will need furosemide 40 mg daily. Prior home dose was every other day. Continue antihypertensive medications including amlodipine, carvedilol,, isordil, and hydralazine. Case discussed with Dr. Billy I spent a total of 30 minutes on the date of service in preparation, delivery, and documentation of the care provided to this patient, excluding any time spent in the performance of separately billed services. May Gipson PA-C Department of Cardiology, [facility] This chart was completed in part utilizing Speech Voice Recognition Software. Grammatical errors, random word insertions, pronoun errors, and incomplete sentences are an occasional consequence of this system due to software limitations, ambient noise, and hardware issues. Any formal questions or concerns about the content, text, or information contained within the body of this dictation should be directly addressed to the provider for clarification. Admission and Anticipated Discharge Date Admission Date: October 30, 2023 Supervising Physician Co-Signing Physician Notes I have personally performed a history and physical examination on the patient. I have reviewed the advanced practitioner's documentation on the date of service referenced in note, and I agree with, and take responsibility for the plan of care. GI symptoms have improved with less frequent diarrhea. Continue to hold diuretic therapy today. Likely resume Lasix 40 mg daily when GI issues have resolved. Monitor hemoglobin. Transfuse to maintain hemoglobin greater than 8.0 g/dL. Supplement potassium as indicated. 40 mEq KCl ordered daily. Patient previously treated with spironolactone however discontinued due to hyperkalemia and hyponatremia. I spent a total of 20 minutes on the date of service in preparation, delivery, and documentation of the care provided to this patient, excluding any time spent in the performance of separately billed services. Subjective Patient resting in bed. Ongoing abdominal cramping noted but diarrhea improving. SOB at baseline. No chest pain or worsening SOB. No increased edema. No orthopnea. Review of Systems Review of Systems: All systems reviewed & are unremarkable except as noted in HPI & below Physical Exam Constitutional: WD/WN, vitals as above + ill appearing Eyes: PERRL, conjunctivae normal, anicteric sclerae Neck: trachea midline, no thyromegaly Respiratory: normal respiratory effort, lungs clear to auscultation Auscultation: no crackles, no rales, no rhonchi and no wheezes Cardiovascular: RRR, no murmur, no edema Rate/Rhythm: regular rate and regular rhythm Heart Sounds: normal S1 and normal S2; no murmur Vessels: no JVD Extremities: no edema Gastrointestinal (Abdomen): normal bowel sounds, soft, nontender, no hepatosplenomegaly Musculoskeletal: no cyanosis or clubbing, extremities motor strength 5/5 Extremities: extremities normal to inspection Skin: no rashes, warm and dry Neurologic: PERRL, EOMI, accommodation nl, no face palsy, no dysarthria Psychiatric: A+Ox3, euthymic affect Results & Data Vital Signs (Past 12 Hours) Vital Signs Temp Pulse Pulse Resp BP BP Pulse Ox 11/04/23 14:49 36.9 C 73 18 151/71 H 93 11/04/23 11:20 36.7 C 71 18 168/76 H 95 11/04/23 08:00 11/04/23 08:00 11/04/23 07:46 70 11/04/23 07:35 36.7 C 72 18 171/73 H 96 11/04/23 03:37 36.9 C 70 16 143/70 H 95 Pulse Ox O2 Del Method O2 Del Method O2 Flow Rate O2 Flow Rate 11/04/23 14:49 Room Air 11/04/23 11:20 Nasal Cannula 2 11/04/23 08:00 Nasal Cannula 2 11/04/23 08:00 96 Nasal Cannula 2 11/04/23 07:46 11/04/23 07:35 Nasal Cannula 2 11/04/23 03:37 Nasal Cannula 2 Laboratory Results Comprehensive Metabolic Panel 11/04/23 Range/Units 06:06 Sodium 132 L (136-145) mmol/L Potassium 3.9 (3.5-5.1) mmol/L Chloride 103 (98-107) mmol/L Carbon Dioxide 22 (21-32) mmol/L BUN 38 H (6-23) mg/dl Creatinine 1.63 H (0.6-1.2) mg/dl Glucose 148 H (70-99(Fasting)) mg/dl Calcium 8.0 L (8.6-10.3) mg/dl Intake and Output 11/04/23 11/04/23 11/04/23 06:59 14:59 22:59 Intake Total 0 / 0 Balance 0 / 0 Intake: Oral 0 / 0 Other: Other Intake Source sips # Unmeasured Voids 2 Weight 83.3 kg Diagnostic Findings Telemetry reviewed: NSR with occ PVC's; HR in the 70's Medications Administered Current Inpatient Medications Acetaminophen (Acetaminophen 325 Mg Tab) 650 mg PO Q4H PRN PRN Reason: Moderate Pain (Scale 4, 5, 6) Stop: 11/29/23 15:50 Last Admin: 11/02/23 21:02 Dose: 650 mg Acetaminophen (Acetaminophen 500 Mg Tab) 1,000 mg PO BID [facility], [facility] Stop: 11/29/23 20:59 Last Admin: 11/04/23 08:15 Dose: 1,000 mg Al Hydrox/Mg Hydrox/Simethicone (Aluminum/Magnesium/Simeth (Maalox Max) 30 Ml Udc) 15 ml PO Q6H PRN PRN Reason: Dyspepsia Stop: 12/02/23 13:50 Last Admin: 11/03/23 16:49 Dose: 15 ml Amlodipine Besylate (Amlodipine Besylate 5 Mg Tab) 10 mg PO DAILY [facility], [facility] Stop: 11/30/23 08:59 Last Admin: 11/04/23 08:03 Dose: 10 mg Aspirin (Aspirin 81 Mg Ectab) 81 mg PO QAM [facility], [facility] Stop: 11/30/23 08:59 Last Admin: 11/04/23 08:04 Dose: 81 mg Atorvastatin Calcium (Atorvastatin 40 Mg Tab) 80 mg PO HS [facility], [facility] Stop: 11/29/23 20:59 Last Admin: 11/03/23 19:35 Dose: 80 mg Carvedilol (Carvedilol 25 Mg Tab) 37.5 mg PO BIDM [facility], [facility]1983 Stop: 11/29/23 16:59 Last Admin: 11/03/23 19:36 Dose: 37.5 mg Cyanocobalamin (Cyanocobalamin (B-12) 500 Mcg Tablet) 1,000 mcg PO QAM [facility] Stop: 12/01/23 08:59 Last Admin: 11/04/23 08:05 Dose: 1,000 mcg Dextrose (Dextrose 50% 50 Ml Syringe) 25 - 50 ml IV UD PRN; Protocol PRN Reason: Hypoglycemia Protocol Stop: 11/29/23 15:50 Empagliflozin (Empagliflozin 25 Mg Tab) 25 mg PO DAILY LUCAS Stop: 11/30/23 08:59 Last Admin: 11/04/23 08:05 Dose: 25 mg Ferrous Sulfate (Ferrous Sulfate 325 Mg Tab) 325 mg PO QAM [facility] Stop: 12/01/23 08:59 Last Admin: 11/04/23 08:05 Dose: 325 mg Folic Acid (Folic Acid 1 Mg Tab) 1 mg PO QAM [facility] Stop: 12/01/23 08:59 Last Admin: 11/04/23 08:03 Dose: 1 mg Furosemide (Furosemide 40 Mg/4 Ml Vial) 40 mg IV QAM [facility] Stop: 11/30/23 08:59 Last Admin: 11/01/23 08:34 Dose: 40 mg Glucagon (Glucagon For Inj 1 Mg Vial) 1 mg SQ UD PRN; Protocol PRN Reason: Hypoglycemia Protocol Stop: 11/29/23 15:50 Glucose (Glucose 40% Gel 15 Gm Tube) 15 - 30 gm PO UD PRN; Protocol PRN Reason: Hypoglycemia Protocol Stop: 11/29/23 15:50 Glucose (Glucose 10 Tab/Tube) 4 - 8 tab PO UD PRN; Protocol PRN Reason: Hypoglycemia Treatment Stop: 11/29/23 15:50 Hydralazine HCl (Hydralazine Tab 50 Mg Tab) 100 mg PO TID [facility] Stop: 11/29/23 22:44 Last Admin: 11/04/23 15:02 Dose: 100 mg Insulin Aspart (Insulin Aspart Per Unit Charge) 0 units SC ACHS [facility] Stop: 11/29/23 16:29 Last Admin: 11/04/23 13:53 Dose: Not Given Insulin Glargine (Lantus Per Unit Charge) 30 units SQ QAM [facility] Stop: 11/30/23 08:59 Isosorbide Dinitrate (Isosorbide Dinitrate 20 Mg Tab) 30 mg PO TID @0700,1200,1700 [facility] Stop: 11/29/23 16:59 Last Admin: 11/04/23 13:48 Dose: 30 mg Lactobacillus Acidophilus (Advanced Probiotic 625 Mg Capsule) 1,250 mg PO DAILY [facility] Stop: 12/02/23 09:44 Last Admin: 11/04/23 08:04 Dose: 1,250 mg Loperamide HCl (Loperamide Hcl 2 Mg Cap) 2 mg PO Q6H PRN PRN Reason: Diarrhea Stop: 12/02/23 12:13 Last Admin: 11/04/23 15:07 Dose: 2 mg Loratadine (Loratadine 10 Mg Tab) 10 mg PO HS LUCSA Stop: 11/29/23 20:59 Last Admin: 11/03/23 19:35 Dose: 10 mg Lorazepam (Lorazepam 0.5 Mg Tab) 0.5 mg PO Q4H PRN PRN Reason: Anxiety Stop: 11/30/23 12:48 Last Admin: 11/03/23 20:36 Dose: 0.5 mg Magnesium Chloride (Magnesium Chloride W/Calcium 64mg Delayed Rel Tab) 64 mg PO BID [facility] Stop: 12/02/23 08:59 Last Admin: 11/04/23 08:03 Dose: 64 mg Miscellaneous (Carbohydrates For Hypoglycemia ) 15 - 30 gm PO UD PRN PRN Reason: Hypoglycemia Protocol Stop: 11/29/23 15:50 Last Admin: 11/01/23 16:55 Dose: 30 gm Multivitamins/Minerals (Cerovite Adv Formula Tab) 1 tab PO DAILY LUCAS Stop: 11/30/23 08:59 Last Admin: 11/04/23 08:04 Dose: 1 tab Ondansetron HCl (Ondansetron Inj 2 Mg/Ml 2 Ml Vial) 4 mg IV Q4H PRN PRN Reason: Nausea And Vomiting Stop: 11/29/23 15:50 Last Admin: 11/01/23 18:14 Dose: 4 mg Potassium Chloride (Potassium Chloride Crtab 20 Meq Tabcr) 40 meq PO QAM [facility] Stop: 12/01/23 08:59 Last Admin: 11/04/23 08:05 Dose: 40 meq Sertraline HCl (Sertraline Hcl 50 Mg Tablet) 25 mg PO QAM [facility] Stop: 11/30/23 08:59 Last Admin: 11/04/23 08:05 Dose: 25 mg (3) Hypertension Hypertension type: unspecified Qualified Code(s): I10 - Essential (primary) hypertension (5) Anemia Anemia type: unspecified type Qualified Code(s): D64.9 - Anemia, unspecified
--- NOTE | 2023-11-04 17:24 | Hospitalist Progress Note ---
Date of Service November 04, 2023 Assessment & Plan (1) CHF (congestive heart failure): (2) LBBB (left bundle branch block): (3) Bilateral lower extremity edema: (4) Hypertension: (5) Anemia: (6) Diabetes mellitus, type II, insulin dependent: (7) IgG gammopathy: (8) CKD (chronic kidney disease): Plan Ms. Urrutia is an 88 year old woman with past medical history remarkable for chronic heart failure with preserved EF (EF 60%, TTE 2023), PVD, hypertension, hyperlipidemia, DM 2 insulin requiring, CKD 4(baseline creatinine 1.7),MGUS/IgG Gammopathy, familial hypocalciuric hypercalcemia, carotid disease and renal artery stenosis, mood disorder admitted on 10/29 for acute heart failure with preserved EF. Patient follows Dr. Schroeder, who increased lasix dosing from MWF to every other day. Patient not feeling improved despite continuous oxygen use. Discussed case with Dr. Frye, heme/onc. Further anemia labs ordered and 1 UPRBC ordered and administered. Labs with low B12, folate, and iron (obtained prior to transfusion). Will replace PO. Acute on chronic anemia, likely multifactorial iso CKD, IgG gammopathy Iron Deficiency Recent anemia labs as Op: Macrocytic anemia with low TIBC of 227, iron 46, Transferrin 20, folic acid 7.2, vit b 12 391 Referral recently placed regarding macrocytic anemia, renal insufficiency, IgG kappa clonal gammopathy to OP hematology SPEP on 10/13 revealed a monoclonal IgG kappa gammopathy. Similar to immunofixation results from 08/[address] Nunez in 05/2023 regarding this finding, however at that time anemia stable with hgb of 12. --Reticulocyte count elevated 3.5. Immature reticulocyte fraction 22%. Haptoglobin pending. --Normal LDH -- Peripheral smear: Suggest likely multifactorial anemia due to CKD, IgA gammopathy, nutritional deficiency --Hair test negative --Prior provider discussed with Dr. Casey Frye 10/30 -Immunofixation, SPEP, UPEP pending -Anemia labs, ferritin 82 , iron 30 TIBC 228, b12 199 folate 7.54 -Started on oral b12, folate, and iron supplementation as low to lower normal values for above --S/P 1 unit PRBC on 10/30 for question of symptomatic anemia --Will need follow-up with heme oncology as outpatient Continue to monitor CBC Acute Heart failure with preserved EF Mild Trop elevation, appears to have chronic elevation --ECHO 08/14/2023, EF 60-65%, G1DD, no PHTN BNP 414 10/29 --Home regimen: Hydralazine 100mg TID, Isordil 30mg TID, coreg 37.5 BID, amlodipine 10mg Prior admissions: verapamil discontinued in favor of amlodipine, ANANT discontinued, labetalol for Coreg --Spironolactone discontinued previously secondary to hyperkalemia, hyponatremia -s/p IV lasix Declined liu catheter placement --Monitor I's and O's, daily weight -Continue Coreg, amlodipine 10mg daily, hydralazine 100mg TID, isosorbide --Appreciate cardiology input IV Lasix held due to ongoing diarrhea currently Monitor volume status closely Resume diuretics as able--May need 40 mg Lasix daily As per prior provider: Chronic hypoxic Resp failure, requiring continuous O2 Nocturnal Hypoxemia Daytime fatigue Given nocturnal hypertension and question of nocturnal hypoxemia, plan for overnight pulse oximetry test Qualifies for home oxygen at night 2L Patient now on continuous home O2 Will need 2 step prior to discharge Nausea, vomiting, diarrhea Secondary to norovirus infection Suspected diverticulitis--less likely per surgery --CT ABD:No evidence for bowel obstruction. Evaluation of the bowel mucosa is slightly limited without contrast; however, no definite focal asymmetry suggested. Diverticulosis noted most prominently involving the descending and sigmoid colon. There is focal pericolonic fat stranding adjacent to the posterior diverticula in the distal descending colonic segment. Subtle diverticulitis is suspected. Cholelithiasis without associated sonographic findings to suggest acute cholecystitis. No biliary dilatation. -- Stool for C. difficile negative --Appreciate surgery input --Will avoid antibiotics for now Conservative management Isolation precautions Diarrhea improving Tolerating diet better Hypokalemia Hypomagnesemia Replace and monitor electrolytes as needed NSVT Chronic LBBB Asymptomatic, < 30seconds Continue carvedilol Appreciate cardiology input CKD IV Renal artery stenosis. -Left 50% origin stenosis & atrophic right kidney, on 2022 renal duplex Avoid nephrotoxic agents, including ANANT/ARB Monitor renal function Asymptomatic 50-69% SLIME stenosis, stable velocities on most recent duplex Asymptomatic < 50% LICA stenosis Followed with vascular surgery for R ICA stenosis Continue home ASA and statin Hypoglycemic episode DM II HbA1C 5.0% , may be falsely low due to Anemia, however, patient doing well with no insulin requirements Tresiba 30U daily, Jardiance, Tradjenta, repaglinide Continue insulin while hospitalized Avoid hypoglycemic episodes as able Will need follow-up with [facility] clinic on discharge for further adjustment of medications Depression Continue Sertraline DVT Px: Teds, scds CODE STATUS: Full code Admission and Anticipated Discharge Date Admission Date: October 30, 2023 Subjective Patient is seen and examined at bedside Subjectively feels much better today Diarrhea slowly improving No other complaints today Denies any chest pain, dyspnea, abdominal pain Review of Systems Review of Systems: All systems reviewed & are unremarkable except as noted in Subjective Physical Exam Physical Exam: Physical Exam: Vitals signs as noted above General Appearance: Moderately built and nourished, elderly, no apparent distress Head: normocephalic, Atraumatic Eyes: normal inspection, EOMI Neck: supple, Trachea midline Respiratory/Chest: Normal breath sounds, CTA, No accessory muscle use Cardiovascular: S1, S2, No murmur Abdomen/GI:Soft, Non tender, Bowel sounds present Extremities/Musculoskeletal:normal inspection, Trace edema Neurologic/Psych:AAOX3, grossly no focal neurological deficits Skin: normal color, warm Results & Data Results & Data Vital Signs (Past 12 Hours) Vital Signs Temp Pulse Pulse Resp BP Pulse Ox Pulse Ox 11/04/23 16:00 93 11/04/23 15:36 72 11/04/23 14:49 36.9 C 73 18 151/71 H 93 11/04/23 11:20 36.7 C 71 18 168/76 H 95 11/04/23 08:00 11/04/23 08:00 96 11/04/23 07:46 70 11/04/23 07:35 36.7 C 72 18 171/73 H 96 O2 Del Method O2 Del Method O2 Flow Rate O2 Flow Rate 11/04/23 16:00 Nasal Cannula 2 11/04/23 15:36 11/04/23 14:49 Nasal Cannula 2 11/04/23 11:20 Nasal Cannula 2 11/04/23 08:00 Nasal Cannula 2 11/04/23 08:00 Nasal Cannula 2 11/04/23 07:46 11/04/23 07:35 Nasal Cannula 2 Laboratory Results BMP 11/04/23 06:06 Sodium 132 L Potassium 3.9 Chloride 103 Carbon Dioxide 22 BUN 38 H Creatinine 1.63 H Glucose 148 H Calcium 8.0 L (1) CHF (congestive heart failure) Heart failure chronicity: acute on chronic Heart failure type: unspecified Qualified Code(s): I50.9 - Heart failure, unspecified (4) Hypertension Hypertension type: unspecified Qualified Code(s): I10 - Essential (primary) hypertension (8) CKD (chronic kidney disease) Chronic kidney disease stage: unspecified stage Qualified Code(s): N18.9 - C hronic kidney disease, unspecified
[2023-11-05 07:16] LABS: Hematocrit (blood only) 27.6 % (37.0-47.0); Hemoglobin 8.8 g/dl (12.0-16.0)
[2023-11-05 08:02] LABS: BUN Creatinine Ratio 24.2 (10-20); Calcium 8.3 mg/dl (8.6-10.3); Creatinine Clr Calc Pharmacy 25.2 ml/min; Est GFR (African American) 33.5 ml/min; Est GFR (Non-African American) 28.9 ml/min; Magnesium 2.7 mg/dl (1.7-2.4); Potassium 4.3 mmol/L (3.5-5.1)
--- NOTE | 2023-11-05 12:09 | Cardiology Progress Note ---
Date of Service November 05, 2023 Assessment & Plan (1) Acute on chronic diastolic HF (heart failure): (2) LBBB (left bundle branch block): Plan: -Chronic, normal LVEF echo August, at [facility] (3) Hypertension: Plan: -Longstanding h/o labile HTN (4) Bilateral lower extremity edema: (5) Anemia: (6) Norovirus: Plan 1. Acute on chronic diastolic HF 2. Hypoxia 3. Macrocytic anemia s/p 1 unit PRBCs 4. HTN 5. CKD stage III 6. T2 DM 7. Carotid artery disease 8. Renal artery stenosis 9. Chronic vertigo 10. 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 -High blood pressure reading noted this morning, however patient with history of labile hypertension, and other readings have been acceptable. She is due for multiple morning blood pressure medications. -Hgb 7.5--> 8.7 status post transfusion of 1 unit packed red blood cells on 10/31/2023. Patient due to have outpatient hematology follow-up. 11/02/23: Overnight patient developed acute nausea/vomiting/diarrhea and tested + for norovirus. CT scan also suggestive of possible diverticulitis. Volume status improved this morning. No edema noted. Oxygen status also improved. Given her acute GI illness, will hold IV diuretics today. Monitor I+O's. Supplement and monitor potassium and magnesium. Potassium 3.4 this morning and she received 40 meq of potassium. HTN noted this morning prior to AM meds. Continue amlodipine, carvedilol, Isordil, and hydralazine. Spironolactone previously discontinued due to hyperkalemia and hyponatremia. Pending GI illness and volume status, consider resuming diuretics tomorrow. 11/03/23: Ongoing diarrhea persisted overnight. nausea and vomiting improving. Continue supportive care for norovirus. SOB at baseline. No chest pain. Continue to hold diuretics given GI illness. Monitor fluid status/SOB/hypoxia. Continue antihypertensive medications including amlodipine, carvedilol,, isordil, and hydralazine. Per review of records, LBBB was newly noted in Aug 2023. Preserved LVEF at that time. Ongoing med management recommended for now. No prior ischemic work up per outpatient records. However, given CKD and anemia with future hematology evaluation, she would be considered high risk to proceed with procedures at this time. Continue medical management. 11/04/23: Diarrhea improving. Ongoing abdominal cramping noted. Supportive care recommended for norovirus. SOB at baseline. Weight continues to trend downward. IV diuretics remain on hold due to GI illness. Consider resuming oral diuretics when GI upset improves. Likely will need furosemide 40 mg daily. Prior home dose was every other day. Continue antihypertensive medications including amlodipine, carvedilol,, isordil, and hydralazine. 11/05/23: Viral illness slowly improving. Ongoing supportive care recommended. SOB at baseline. Faint bibasilar rales noted today. Resume oral diuretics today at furosemide 40 mg daily to keep I+O's balanced. Continue all other home medications including amlodipine, carvedilol, isordil, and hydralazine. Stable cardiac issues. will sign off. Please notify touring production manager cardiology provider with additional questions or concerns. Case discussed with Dr. Billy I spent a total of 30 minutes on the date of service in preparation, delivery, and documentation of the care provided to this patient, excluding any time spent in the performance of separately billed services. May Gipson PA-C Department of Cardiology, [facility] This chart was completed in part utilizing Speech Voice Recognition Software. Grammatical errors, random word insertions, pronoun errors, and incomplete sentences are an occasional consequence of this system due to software limitations, ambient noise, and hardware issues. Any formal questions or concerns about the content, text, or information contained within the body of this dictation should be directly addressed to the provider for clarification. Admission and Anticipated Discharge Date Admission Date: October 30, 2023 Supervising Physician Co-Signing Physician Notes I have reviewed the advanced practitioner's documentation on the date of service referenced in note, and I agree with, and take responsibility for the plan of care. GI symptoms have improved. Blood pressure within acceptable range. Resume oral Lasix 40 mg daily. Monitor hemoglobin. Transfuse to maintain hemoglobin greater than 8.0 g/dL. Supplement potassium as indicated. 40 mEq KCl ordered daily. Patient previously treated with spironolactone however discontinued due to hyperkalemia and hyponatremia. Cardiology will sign off. Please call with additional concerns/questions. I spent a total of 20 minutes on the date of service in preparation, delivery, and documentation of the care provided to this patient, excluding any time spent in the performance of separately billed services. Subjective Patient resting in bed. Feels tired. Abdominal pain/cramping improved. Diarrhea improving. SOB at baseline. No chest pain. Review of Systems Review of Systems: All systems reviewed & are unremarkable except as noted in HPI & below Physical Exam Constitutional: WD/WN, vitals as above + ill appearing Eyes: PERRL, conjunctivae normal, anicteric sclerae Neck: trachea midline, no thyromegaly Respiratory: normal respiratory effort, lungs clear to auscultation Auscultation: + crackles (faint bibasilar rales); no rales, no rhonchi and no wheezes Cardiovascular: RRR, no murmur, no edema Rate/Rhythm: regular rate and regular rhythm Heart Sounds: normal S1 and normal S2; no murmur Vessels: no JVD Extremities: no edema Gastrointestinal (Abdomen): normal bowel sounds, soft, nontender, no hepatosplenomegaly Musculoskeletal: no cyanosis or clubbing, extremities motor strength 5/5 Extremities: extremities normal to inspection Skin: no rashes, warm and dry Neurologic: PERRL, EOMI, accommodation nl, no face palsy, no dysarthria Psychiatric: A+Ox3, euthymic affect Results & Data Vital Signs (Past 12 Hours) Vital Signs Temp Pulse Pulse Resp BP Pulse Ox Pulse Ox 11/05/23 11:23 36.9 C 70 20 125/61 93 11/05/23 08:05 36.8 C 72 20 153/69 H 95 11/05/23 08:00 95 11/05/23 07:45 11/05/23 07:11 70 11/05/23 03:56 36.7 C 68 20 136/61 93 O2 Del Method O2 Del Method O2 Flow Rate O2 Flow Rate 11/05/23 11:23 Nasal Cannula 2 11/05/23 08:05 Nasal Cannula 2 11/05/23 08:00 Nasal Cannula 2 11/05/23 07:45 Nasal Cannula 2 11/05/23 07:11 11/05/23 03:56 Nasal Cannula 2 Laboratory Results CBC 11/05/23 Range/Units 06:18 Hgb 8.8 L (12.0-16.0) g/dl Hct 27.6 L (37.0-47.0) % Comprehensive Metabolic Panel 11/05/23 Range/Units 06:18 Sodium 132 L (136-145) mmol/L Potassium 4.3 (3.5-5.1) mmol/L Chloride 104 (98-107) mmol/L Carbon Dioxide 21 (21-32) mmol/L BUN 38 H (6-23) mg/dl Creatinine 1.57 H (0.6-1.2) mg/dl Glucose 126 H (70-99(Fasting)) mg/dl Calcium 8.3 L (8.6-10.3) mg/dl Intake and Output 11/04/23 11/05/23 11/05/23 22:59 06:59 14:59 Intake Total 260 / 500 240 / 500 Balance 260 / 500 240 / 500 Intake: Oral 260 / 500 240 / 500 Other: Weight 85.9 kg 83.6 kg Weight Measurement Method Built in Bedscale Standing Scale Patient Weight 11/06/23 06:59 Weight 83.6 kg Diagnostic Findings telemetry reviewed: NSR in the 60-70's Medications Administered Current Inpatient Medications Acetaminophen (Acetaminophen 325 Mg Tab) 650 mg PO Q4H PRN PRN Reason: Moderate Pain (Scale 4, 5, 6) Stop: 11/29/23 15:50 Last Admin: 11/02/23 21:02 Dose: 650 mg Acetaminophen (Acetaminophen 500 Mg Tab) 1,000 mg PO BID [facility] Stop: 11/29/23 20:59 Last Admin: 11/05/23 08:59 Dose: 1,000 mg Al Hydrox/Mg Hydrox/Simethicone (Aluminum/Magnesium/Simeth (Maalox Max) 30 Ml Udc) 15 ml PO Q6H PRN PRN Reason: Dyspepsia Stop: 12/02/23 13:50 Last Admin: 11/03/23 16:49 Dose: 15 ml Amlodipine Besylate (Amlodipine Besylate 5 Mg Tab) 10 mg PO DAILY [facility] Stop: 11/30/23 08:59 Last Admin: 11/05/23 09:02 Dose: 10 mg Aspirin (Aspirin 81 Mg Ectab) 81 mg PO QAM [facility] Stop: 11/30/23 08:59 Last Admin: 11/05/23 09:02 Dose: 81 mg Atorvastatin Calcium (Atorvastatin 40 Mg Tab) 80 mg PO HS [facility] Stop: 11/29/23 20:59 Last Admin: 11/04/23 19:46 Dose: 80 mg Carvedilol (Carvedilol 25 Mg Tab) 37.5 mg PO BIDM [facility] Stop: 11/29/23 16:59 Last Admin: 11/05/23 07:41 Dose: 37.5 mg Cyanocobalamin (Cyanocobalamin (B-12) 500 Mcg Tablet) 1,000 mcg PO QAM [facility] Stop: 12/01/23 08:59 Last Admin: 11/05/23 09:03 Dose: 1,000 mcg Dextrose (Dextrose 50% 50 Ml Syringe) 25 - 50 ml IV UD PRN; Protocol PRN Reason: Hypoglycemia Protocol Stop: 11/29/23 15:50 Empagliflozin (Empagliflozin 25 Mg Tab) 25 mg PO DAILY [facility] Stop: 11/30/23 08:59 Last Admin: 11/05/23 09:02 Dose: 25 mg Ferrous Sulfate (Ferrous Sulfate 325 Mg Tab) 325 mg [place] Stop: 12/01/23 08:59 Last Admin: 11/05/23 09:00 Dose: 325 mg Folic Acid (Folic Acid 1 Mg Tab) 1 mg PO QAM [facility] Stop: 12/01/23 08:59 Last Admin: 11/05/23 09:01 Dose: 1 mg Furosemide (Furosemide 40 Mg/4 Ml Vial) 40 mg IV QAM [facility] Stop: 11/30/23 08:59 Last Admin: 11/01/23 08:34 Dose: 40 mg Glucagon (Glucagon For Inj 1 Mg Vial) 1 mg SQ UD PRN; Protocol PRN Reason: Hypoglycemia Protocol Stop: 11/29/23 15:50 Glucose (Glucose 40% Gel 15 Gm Tube) 15 - 30 gm PO UD PRN; Protocol PRN Reason: Hypoglycemia Protocol Stop: 11/29/23 15:50 Glucose (Glucose 10 Tab/Tube) 4 - 8 tab PO UD PRN; Protocol PRN Reason: Hypoglycemia Treatment Stop: 11/29/23 15:50 Hydralazine HCl (Hydralazine Tab 50 Mg Tab) 100 mg PO TID [facility] Stop: 11/29/23 22:44 Last Admin: 11/05/23 09:00 Dose: 100 mg Insulin Aspart (Insulin Aspart Per Unit Charge) 0 units SC ACHS [facility] Stop: 11/29/23 16:29 Last Admin: 11/05/23 08:59 Dose: 1 units Insulin Glargine (Lantus Per Unit Charge) 30 units SQ QAM [facility] Stop: 11/30/23 08:59 Isosorbide Dinitrate (Isosorbide Dinitrate 20 Mg Tab) 30 mg PO TID@0700,1200,1700 [facility] Stop: 11/29/23 16:59 Last Admin: 11/05/23 07:41 Dose: 30 mg Lactobacillus Acidophilus (Advanced Probiotic 625 Mg Capsule) 1,250 mg PO DAILY [facility] Stop: 12/02/23 09:44 Last Admin: 11/05/23 09:02 Dose: 1,250 mg Loperamide HCl (Loperamide Hcl 2 Mg Cap) 2 mg PO Q6H PRN PRN Reason: Diarrhea Stop: 12/02/23 12:13 Last Admin: 11/04/23 20:54 Dose: 2 mg Loratadine (Loratadine 10 Mg Tab) 10 mg PO HS [facility] Stop: 11/29/23 20:59 Last Admin: 11/04/23 19:47 Dose: 10 mg Lorazepam (Lorazepam 0.5 Mg Tab) 0.5 mg PO Q4H PRN PRN Reason: Anxiety Stop: 11/30/23 12:48 Last Admin: 11/04/23 20:53 Dose: 0.5 mg Magnesium Chloride (Magnesium Chloride W/Calcium 64mg Delayed Rel Tab) 64 mg PO BID [facility] Stop: 12/02/23 08:59 Last Admin: 11/05/23 09:00 Dose: 64 mg Miscellaneous (Carbohydrates For Hypoglycemia ) 15 - 30 gm PO UD PRN PRN Reason: Hypoglycemia Protocol Stop: 11/29/23 15:50 Last Admin: 11/01/23 16:55 Dose: 30 gm Multivitamins/Minerals (Cerovite Adv Formula Tab) 1 tab PO DAILY [facility] Stop: 11/30/23 08:59 Last Admin: 11/05/23 09:01 Dose: 1 tab Ondansetron HCl (Ondansetron Inj 2 Mg/Ml 2 Ml Vial) 4 mg IV Q4H PRN PRN Reason: Nausea And Vomiting Stop: 11/29/23 15:50 Last Admin: 11/01/23 18:14 Dose: 4 mg Potassium Chloride (Potassium Chloride Crtab 20 Meq Tabcr) 20 meq PO [facility] Stop: 12/06/23 08:59 Sertraline HCl (Sertraline Hcl 50 Mg Tablet) 25 mg PO [facility] Stop: 11/30/23 08:59 Last Admin: 11/05/23 09:01 Dose: 25 mg (3) Hypertension Hypertension type: unspecified Qualified Code(s): I10 - Essential (primary) hypertension (5) Anemia Anemia type: unspecified type Qualified Code(s): D64.9 - Anemia, unspecified
[2023-11-05] MEDS: FUROSEMIDE 40 MG TAB PO SCH (13:21)
--- NOTE | 2023-11-05 16:30 | Hospitalist Progress Note ---
Date of Service November 05, 2023 Assessment & Plan (1) CHF (congestive heart failure): (2) LBBB (left bundle branch block): (3) Bilateral lower extremity edema: (4) Hypertension: (5) Anemia: (6) Diabetes mellitus, type II, insulin dependent: (7) IgG gammopathy: (8) CKD (chronic kidney disease): Plan Ms. Urrutia is an 88 year old woman with past medical history remarkable for chronic heart failure with preserved EF (EF 60%, TTE 2023), PVD, hypertension, hyperlipidemia, DM 2 insulin requiring, CKD 4(baseline creatinine 1.7),MGUS/IgG Gammopathy, familial hypocalciuric hypercalcemia, carotid disease and renal artery stenosis, mood disorder admitted on 10/29 for acute heart failure with preserved EF. Patient follows Dr. Schroeder, who increased lasix dosing from MWF to every other day. Patient not feeling improved despite continuous oxygen use. Discussed case with Dr. Frye, heme/onc. Further anemia labs ordered and 1 UPRBC ordered and administered. Labs with low B12, folate, and iron (obtained prior to transfusion). Will replace PO. Acute on chronic anemia, likely multifactorial iso CKD, IgG gammopathy Iron Deficiency Recent anemia labs as Op: Macrocytic anemia with low TIBC of 227, iron 46, Transferrin 20, folic acid 7.2, vit b 12 391 Referral recently placed regarding macrocytic anemia, renal insufficiency, IgG kappa clonal gammopathy to OP hematology SPEP on 10/13 revealed a monoclonal IgG kappa gammopathy. Similar to immunofixation results from 08/[address] Nunez in 05/2023 regarding this finding, however at that time anemia stable with hgb of 12. --Reticulocyte count elevated 3.5. Immature reticulocyte fraction 22%. Haptoglobin pending. --Normal LDH -- Peripheral smear: Suggest likely multifactorial anemia due to CKD, IgA gammopathy, nutritional deficiency --Hair test negative --Prior provider discussed with Dr. Casey Frye 10/30 -Immunofixation, SPEP, UPEP pending -Anemia labs, ferritin 82 , iron 30 TIBC 228, b12 199 folate 7.54 -Started on oral b12, folate, and iron supplementation as low to lower normal values for above --S/P 1 unit PRBC on 10/30 for question of symptomatic anemia --Will need follow-up with heme oncology as outpatient Continue to monitor CBC Hemoglobin stable Acute Heart failure with preserved EF Mild Trop elevation, appears to have chronic elevation --ECHO 08/14/2023, EF 60-65%, G1DD, no PHTN BNP 414 10/29 --Home regimen: Hydralazine 100mg TID, Isordil 30mg TID, coreg 37.5 BID, amlodipine 10mg Prior admissions: verapamil discontinued in favor of amlodipine, ANANT discontinued, labetalol for Coreg --Spironolactone discontinued previously secondary to hyperkalemia, hyponatremia -s/p IV lasix Declined liu catheter placement --Monitor I's and O's, daily weight -Continue Coreg, amlodipine 10mg daily, hydralazine 100mg TID, isosorbide --Appreciate cardiology input IV Lasix held due to ongoing diarrhea currently Monitor volume status closely Restarted Lasix 40 mg daily Needs follow-up with cardiology on discharge Will need 2 step prior to discharge As per prior provider: Chronic hypoxic Resp failure, requiring continuous O2 Nocturnal Hypoxemia Daytime fatigue Given nocturnal hypertension and question of nocturnal hypoxemia, plan for overnight pulse oximetry test Qualifies for home oxygen at night 2L Patient now on continuous home O2 Will need 2 step prior to discharge Nausea, vomiting, diarrhea Secondary to norovirus infection Suspected diverticulitis--less likely per surgery --CT ABD:No evidence for bowel obstruction. Evaluation of the bowel mucosa is slightly limited without contrast; however, no definite focal asymmetry suggested. Diverticulosis noted most prominently involving the descending and sigmoid colon. There is focal pericolonic fat stranding adjacent to the posterior diverticula in the distal descending colonic segment. Subtle diverticulitis is suspected. Cholelithiasis without associated sonographic findings to suggest acute cholecystitis. No biliary dilatation. -- Stool for C. difficile negative --Appreciate surgery input --Will avoid antibiotics for now Conservative management Isolation precautions Still has some diarrhea Slowly improving Hypokalemia Hypomagnesemia Replace and monitor electrolytes as needed NSVT Chronic LBBB Asymptomatic, < 30seconds Continue carvedilol Appreciate cardiology input CKD IV Renal artery stenosis. -Left 50% origin stenosis & atrophic right kidney, on 2022 renal duplex Avoid nephrotoxic agents, including ANANT/ARB Monitor renal function Asymptomatic 50-69% SLIME stenosis, stable velocities on most recent duplex Asymptomatic < 50% LICA stenosis Followed with vascular surgery for R ICA stenosis Continue home ASA and statin Hypoglycemic episode DM II HbA1C 5.0% , may be falsely low due to Anemia, however, patient doing well with no insulin requirements Tresiba 30U daily, Jardiance, Tradjenta, repaglinide Continue insulin while hospitalized Avoid hypoglycemic episodes as able Will need follow-up with [facility] clinic on discharge for further adjustment of medications Depression Continue Sertraline DVT Px: Teds, scds CODE STATUS: Full code Admission and Anticipated Discharge Date Admission Date: October 30, 2023 Subjective Patient is seen and examined at bedside Still feels tired today Oral diuretics restarted today Still having diarrhea per patient No new complaints Denies any chest pain, dyspnea, abdominal pain Review of Systems Review of Systems: All systems reviewed & are unremarkable except as noted in Subjective Physical Exam Physical Exam: Physical Exam: Vitals signs as noted above General Appearance: Moderately built and nourished, elderly, no apparent distress Head: normocephalic, Atraumatic Eyes: normal inspection, EOMI Neck: supple, Trachea midline Respiratory/Chest: Normal breath sounds, CTA, No accessory muscle use Cardiovascular: S1, S2, No murmur Abdomen/GI:Soft, Non tender, Bowel sounds present Extremities/Musculoskeletal:normal inspection, Trace edema Neurologic/Psych:AAOX3, grossly no focal neurological deficits Skin: normal color, warm Results & Data Results & Data Vital Signs (Past 12 Hours) Vital Signs Temp Pulse Pulse Resp BP Pulse Ox Pulse Ox 11/05/23 15:44 36.6 C 70 20 162/75 H 97 11/05/23 15:00 67 11/05/23 11:23 36.9 C 70 20 125/61 93 11/05/23 08:05 36.8 C 72 20 153/69 H 95 11/05/23 08:00 95 11/05/23 07:45 11/05/23 07:11 70 O2 Del Method O2 Del Method O2 Flow Rate O2 Flow Rate 11/05/23 15:44 Nasal Cannula 2 11/05/23 15:00 11/05/23 11:23 Nasal Cannula 2 11/05/23 08:05 Nasal Cannula 2 11/05/23 08:00 Nasal Cannula 2 11/05/23 07:45 Nasal Cannula 2 11/05/23 07:11 Laboratory Results Short CBC 11/05/23 Range/Units 06:18 Hgb 8.8 L (12.0-16.0) g/dl Hct 27.6 L (37.0-47.0) % BMP 11/05/23 06:18 Sodium 132 L Potassium 4.3 Chloride 104 Carbon Dioxide 21 BUN 38 H Creatinine 1.57 H Glucose 126 H Calcium 8.3 L (1) CHF (congestive heart failure) Heart failure chronicity: acute on chronic Heart failure type: unspecified Qualified Code(s): I50.9 - Heart failure, unspecified (4) Hypertension Hypertension type: unspecified Qualified Code(s): I10 - Essential (primary) hypertension (8) CKD (chronic kidney disease) Chronic kidney disease stage: unspecified stage Qualified Code(s): N18.9 - Chronic kidney disease, unspecified
[2023-11-06 06:31] LABS: Hematocrit (blood only) 27.1 % (37.0-47.0); Hemoglobin 8.8 g/dl (12.0-16.0)
[2023-11-06 06:58] LABS: BUN Creatinine Ratio 19.7 (10-20); Creatinine Clr Calc Pharmacy 26.6 ml/min; Est GFR (African American) 36.3 ml/min; Est GFR (Non-African American) 31.3 ml/min; Potassium 3.5 mmol/L (3.5-5.1)
[2023-11-06] MEDS: POTASSIUM CHLORIDE CRTAB 20 MEQ TABCR PO SCH (08:29)
[2023-11-06] MEDS: SERTRALINE HCL 50 MG TABLET PO SCH (08:38)
--- NOTE | 2023-11-06 17:11 | Hospitalist Progress Note ---
Date of Service November 06, 2023 Assessment & Plan (1) CHF (congestive heart failure): (2) LBBB (left bundle branch block): (3) Bilateral lower extremity edema: (4) Hypertension: (5) Anemia: (6) Diabetes mellitus, type II, insulin dependent: (7) IgG gammopathy: (8) CKD (chronic kidney disease): Plan Ms. Urrutia is an 88 year old woman with past medical history remarkable for chronic heart failure with preserved EF (EF 60%, TTE 2023), PVD, hypertension, hyperlipidemia, DM 2 insulin requiring, CKD 4(baseline creatinine 1.7),MGUS/IgG Gammopathy, familial hypocalciuric hypercalcemia, carotid disease and renal artery stenosis, mood disorder admitted on 10/29 for acute heart failure with preserved EF. Patient follows Dr. Schroeder, who increased lasix dosing from MWF to every other day. Patient not feeling improved despite continuous oxygen use. Discussed case with Dr. Frye, heme/onc. Further anemia labs ordered and 1 UPRBC ordered and administered. Labs with low B12, folate, and iron (obtained prior to transfusion). Will replace PO. Acute on chronic anemia, likely multifactorial iso CKD, IgG gammopathy Iron Deficiency Recent anemia labs as Op: Macrocytic anemia with low TIBC of 227, iron 46, Transferrin 20, folic acid 7.2, vit b 12 391 Referral recently placed regarding macrocytic anemia, renal insufficiency, IgG kappa clonal gammopathy to OP hematology SPEP on 10/13 revealed a monoclonal IgG kappa gammopathy. Similar to immunofixation results from 08/[address] Nunez in 05/2023 regarding this finding, however at that time anemia stable with hgb of 12. --Reticulocyte count elevated 3.5. Immature reticulocyte fraction 22%. Haptoglobin pending. --Normal LDH -- Peripheral smear: Suggest likely multifactorial anemia due to CKD, IgA gammopathy, nutritional deficiency --Hair test negative --Prior provider discussed with Dr. Casey Frye 10/30 -Immunofixation -Immunofixation/: Restricted band M spike migrating in the gamma globulin region. IgG [place] monoclonal band present. -UPEP : Monoclonal protein present. Electrophoresis revealed a faint band in the beta region, could indicate presence of monoclonal immunoglobulin. -Anemia labs, ferritin 82 , iron 30 TIBC 228, b12 199 folate 7.54 -Started on oral b12, folate, and iron supplementation as low to lower normal values for above --S/P 1 unit PRBC on 10/30 for question of symptomatic anemia --Will need follow-up with heme oncology as outpatient Continue to monitor CBC Hemoglobin stable Continue current management Acute Heart failure with preserved EF Mild Trop elevation, appears to have chronic elevation --ECHO 08/14/2023, EF 60-65%, G1DD, no PHTN BNP 414 10/29 --Home regimen: Hydralazine 100mg TID, Isordil 30mg TID, coreg 37.5 BID, amlodipine 10mg Prior admissions: verapamil discontinued in favor of amlodipine, ANANT discontinued, labetalol for Coreg --Spironolactone discontinued previously secondary to hyperkalemia, hyponatremia -s/p IV lasix Declined liu catheter placement --Monitor I's and O's, daily weight -Continue Coreg, amlodipine 10mg daily, hydralazine 100mg TID, isosorbide --Appreciate cardiology input IV Lasix held due to ongoing diarrhea currently Monitor volume status closely Restarted Lasix 40 mg daily Needs follow-up with cardiology on discharge Will need 2 step prior to discharge Volume status stable As per prior provider: Chronic hypoxic Resp failure, requiring continuous O2 Nocturnal Hypoxemia Daytime fatigue Given nocturnal hypertension and question of nocturnal hypoxemia, plan for overnight pulse oximetry test Qualifies for home oxygen at night 2L Patient now on continuous home O2 Nausea, vomiting, diarrhea Secondary to norovirus infection Suspected diverticulitis--less likely per surgery --CT ABD:No evidence for bowel obstruction. Evaluation of the bowel mucosa is slightly limited without contrast; however, no definite focal asymmetry suggested. Diverticulosis noted most prominently involving the descending and sigmoid colon. There is focal pericolonic fat stranding adjacent to the posterior diverticula in the distal descending colonic segment. Subtle diverticulitis is suspected. Cholelithiasis without associated sonographic findings to suggest acute cholecystitis. No biliary dilatation. -- Stool for C. difficile negative --Appreciate surgery input --Will avoid antibiotics for now Conservative management Isolation precautions Clinically continues to improve Tolerating current diet Hypokalemia Hypomagnesemia Replace and monitor electrolytes as needed NSVT Chronic LBBB Asymptomatic, < 30seconds Continue carvedilol Appreciate cardiology input CKD IV Renal artery stenosis. -Left 50% origin stenosis & atrophic right kidney, on 2022 renal duplex Avoid nephrotoxic agents, including ANANT/ARB Monitor renal function Asymptomatic 50-69% SLIME stenosis, stable velocities on most recent duplex Asymptomatic < 50% LICA stenosis Followed with vascular surgery for R ICA stenosis Continue home ASA and statin Hypoglycemic episode DM II HbA1C 5.0% , may be falsely low due to Anemia, however, patient doing well with no insulin requirements Tresiba 30U daily, Jardiance, Tradjenta, repaglinide Continue insulin while hospitalized Avoid hypoglycemic episodes as able Will need follow-up with MTM clinic on discharge for further adjustment of medications Depression Continue Sertraline DVT Px: Teds, scds CODE STATUS: Full code Admission and Anticipated Discharge Date Admission Date: October 30, 2023 Subjective Patient is seen and examined at bedside States feeling tired Also reports some dyspnea on exertion Stools slowly forming States feeling not ready for discharge Denies any chest pain, dyspnea, abdominal pain Review of Systems Review of Systems: All systems reviewed & are unremarkable except as noted in Subjective Physical Exam Physical Exam: Physical Exam: Vitals signs as noted above General Appearance: Moderately built and nourished, elderly, no apparent distress Head: normocephalic, Atraumatic Eyes: normal inspection, EOMI Neck: supple, Trachea midline Respiratory/Chest: Normal breath sounds, CTA, No accessory muscle use Cardiovascular: S1, S2, No murmur Abdomen/GI:Soft, Non tender, Bowel sounds present Extremities/Musculoskeletal:normal inspection, Trace edema Neurologic/Psych:AAOX3, grossly no focal neurological deficits Skin: normal color, warm Results & Data Results & Data Vital Signs (Past 12 Hours) Vital Signs Temp Pulse Pulse Resp BP BP Pulse Ox 11/06/23 16:18 36.8 C 57 L 16 154/62 H 96 11/06/23 15:36 71 11/06/23 14:06 36.6 C 68 18 122/67 98 11/06/23 10:05 11/06/23 07:26 65 11/06/23 07:23 36.5 C 72 16 189/76 H 94 O2 Del Method O2 Flow Rate 11/06/23 16:18 Nasal Cannula 2 11/06/23 15:36 11/06/23 14:06 Nasal Cannula 2 11/06/23 10:05 Nasal Cannula 2 11/06/23 07:26 11/06/23 07:23 Nasal Cannula 2 Laboratory Results Short CBC 11/06/23 Range/Units 06:02 Hgb 8.8 L (12.0-16.0) g/dl Hct 27.1 L (37.0-47.0) % BMP 11/06/23 06:02 Sodium 133 L Potassium 3.5 Chloride 103 Carbon Dioxide 22 BUN 29 H Creatinine 1.47 H Glucose 128 H Calcium 8.0 L (1) CHF (congestive heart failure) Heart failure chronicity: acute on chronic Heart failure type: unspecified Qualified Code(s): I50.9 - Heart failure, unspecified (4) Hypertension Hypertension type: unspecified Qualified Code(s): I10 - Essential (primary) hypertension (8) CKD (chronic kidney disease) Chronic kidney disease stage: unspecified stage Qualified Code(s): N18.9 - Chronic kidney disease, unspecified
[2023-11-07 07:55] LABS: BUN Creatinine Ratio 16.5 (10-20); Creatinine Clr Calc Pharmacy 28.2 ml/min; Est GFR (African American) 38.8 ml/min; Est GFR (Non-African American) 33.5 ml/min; Potassium 3.2 mmol/L (3.5-5.1)
[2023-11-07] MEDS: POTASSIUM CHLORIDE CRTAB 20 MEQ TABCR PO ONE ×2 (08:53→16:16)
--- NOTE | 2023-11-07 15:39 | Hospitalist Progress Note ---
Date of Service November 07, 2023 Assessment & Plan (1) CHF (congestive heart failure): (2) LBBB (left bundle branch block): (3) Bilateral lower extremity edema: (4) Hypertension: (5) Anemia: (6) Diabetes mellitus, type II, insulin dependent: (7) IgG gammopathy: (8) CKD (chronic kidney disease): Plan Ms. Urrutia is an 88 year old woman with past medical history remarkable for chronic heart failure with preserved EF (EF 60%, TTE 2023), PVD, hypertension, hyperlipidemia, DM 2 insulin requiring, CKD 4(baseline creatinine 1.7),MGUS/IgG Gammopathy, familial hypocalciuric hypercalcemia, carotid disease and renal artery stenosis, mood disorder admitted on 10/29 for acute heart failure with preserved EF. Patient follows Dr. Schroeder, who increased lasix dosing from MWF to every other day. Patient not feeling improved despite continuous oxygen use. Discussed case with Dr. Frye, heme/onc. Further anemia labs ordered and 1 UPRBC ordered and administered. Labs with low B12, folate, and iron (obtained prior to transfusion). Will replace PO. Acute on chronic anemia, likely multifactorial iso CKD, IgG gammopathy Iron Deficiency Recent anemia labs as Op: Macrocytic anemia with low TIBC of 227, iron 46, Transferrin 20, folic acid 7.2, vit b 12 391 Referral recently placed regarding macrocytic anemia, renal insufficiency, IgG kappa clonal gammopathy to OP hematology SPEP on 10/13 revealed a monoclonal IgG kappa gammopathy. Similar to immunofixation results from 08/[address] Nunez in 05/2023 regarding this finding, however at that time anemia stable with hgb of 12. --Reticulocyte count elevated 3.5. Immature reticulocyte fraction 22%. Haptoglobin pending. --Normal LDH -- Peripheral smear: Suggest likely multifactorial anemia due to CKD, IgA gammopathy, nutritional deficiency --Hair test negative --Prior provider discussed with Dr. Casey Frye 10/30 -Immunofixation -Immunofixation/: Restricted band M spike migrating in the gamma globulin region. IgG [place] monoclonal band present. -UPEP : Monoclonal protein present. Electrophoresis revealed a faint band in the beta region, could indicate presence of monoclonal immunoglobulin. -Anemia labs, ferritin 82 , iron 30 TIBC 228, b12 199 folate 7.54 -Started on oral b12, folate, and iron supplementation as low to lower normal values for above --S/P 1 unit PRBC on 10/30 for question of symptomatic anemia --Will need follow-up with heme oncology as outpatient Hb stable Acute Heart failure with preserved EF Mild Trop elevation, appears to have chronic elevation --ECHO 08/14/2023, EF 60-65%, G1DD, no PHTN BNP 414 10/29 --Home regimen: Hydralazine 100mg TID, Isordil 30mg TID, coreg 37.5 BID, amlodipine 10mg Prior admissions: verapamil discontinued in favor of amlodipine, ANANT discontinued, labetalol for Coreg --Spironolactone discontinued previously secondary to hyperkalemia, hyponatremia -s/p IV lasix Declined liu catheter placement --Monitor I's and O's, daily weight -Continue Coreg, amlodipine 10mg daily, hydralazine 100mg TID, isosorbide --Appreciate cardiology input IV Lasix held due to ongoing diarrhea currently Monitor volume status closely Continue Lasix 40 mg daily Needs follow-up with cardiology on discharge Will need 2 step prior to discharge Volume status improved Continue current management Hypokalemia Likely due to GI losses, diuretics Replace electrolytes as needed Monitor As per prior provider: Chronic hypoxic Resp failure, requiring continuous O2 Nocturnal Hypoxemia Daytime fatigue Given nocturnal hypertension and question of nocturnal hypoxemia, plan for overnight pulse oximetry test Qualifies for home oxygen at night 2L Patient now on continuous home O2 Nausea, vomiting, diarrhea Secondary to norovirus infection Suspected diverticulitis--less likely per surgery --CT ABD:No evidence for bowel obstruction. Evaluation of the bowel mucosa is slightly limited without contrast; however, no definite focal asymmetry suggested. Diverticulosis noted most prominently involving the descending and sigmoid colon. There is focal pericolonic fat stranding adjacent to the posterior diverticula in the distal descending colonic segment. Subtle diverticulitis is suspected. Cholelithiasis without associated sonographic findings to suggest acute cholecystitis. No biliary dilatation. -- Stool for C. difficile negative --Appreciate surgery input -- No indication for antibiotics Conservative management Isolation precautions Imodium as needed Hypomagnesemia Replace and monitor electrolytes as needed NSVT Chronic LBBB Asymptomatic, < 30seconds Continue carvedilol Appreciate cardiology input CKD IV Renal artery stenosis. -Left 50% origin stenosis & atrophic right kidney, on 2022 renal duplex Avoid nephrotoxic agents, including ANANT/ARB Monitor renal function Asymptomatic 50-69% SLIME stenosis, stable velocities on most recent duplex Asymptomatic < 50% LICA stenosis Followed with vascular surgery for R ICA stenosis Continue home ASA and statin Hypoglycemic episode DM II HbA1C 5.0% , may be falsely low due to Anemia, however, patient doing well with no insulin requirements Tresiba 30U daily, Jardiance, Tradjenta, repaglinide Continue insulin while hospitalized Avoid hypoglycemic episodes as able Will need follow-up with MTM clinic on discharge for further adjustment of medications Depression Continue Sertraline DVT Px: Teds, scds CODE STATUS: Full code Admission and Anticipated Discharge Date Admission Date: October 30, 2023 Subjective Patient is seen and examined at bedside Poor oral intake Reports generalized weakness No diarrhea this morning feels tired Denies any chest pain, dyspnea, abdominal pain Review of Systems Review of Systems: All systems reviewed & are unremarkable except as noted in Subjective Physical Exam Physical Exam: Physical Exam: Vitals signs as noted above General Appearance: Moderately built and nourished, elderly, no apparent distress Head: normocephalic, Atraumatic Eyes: normal inspection, EOMI Neck: supple, Trachea midline Respiratory/Chest: Normal breath sounds, CTA, No accessory muscle use Cardiovascular: S1, S2, No murmur Abdomen/GI:Soft, Non tender, Bowel sounds present Extremities/Musculoskeletal:normal inspection, Trace edema Neurologic/Psych:AAOX3, grossly no focal neurological deficits Skin: normal color, warm Results & Data Results & Data Vital Signs (Past 12 Hours) Vital Signs Temp Pulse Pulse Resp BP BP Pulse Ox 11/07/23 14:57 66 11/07/23 11:51 36.7 C 68 18 150/66 H 98 11/07/23 08:58 11/07/23 08:34 69 11/07/23 08:25 36.8 C 73 18 167/70 H 94 O2 Del Method O2 Flow Rate 11/07/23 14:57 11/07/23 11:51 Nasal Cannula 2 11/07/23 08:58 Nasal Cannula 2 11/07/23 08:34 11/07/23 08:25 Room Air Laboratory Results BMP 11/07/23 07:07 Sodium 135 L Potassium 3.2 L Chloride 103 Carbon Dioxide 24 BUN 23 Creatinine 1.39 H Glucose 142 H Calcium 8.0 L (1) CHF (congestive heart failure) Heart failure chronicity: acute on chronic Heart failure type: unspecified Qualified Code(s): I50.9 - Heart failure, unspecified (4) Hypertension Hypertension type: unspecified Qualified Code(s): I10 - Essential (primary) hypertension (8) CKD (chronic kidney disease) Chronic kidney disease stage: unspecified stage Qualified Code(s): N18.9 - Chronic kidney disease, unspecified
[2023-11-08 07:24] LABS: BUN Creatinine Ratio 14.8 (10-20); Calcium 8.1 mg/dl (8.6-10.3); Creatinine Clr Calc Pharmacy 28.8 ml/min; Est GFR (African American) 40.2 ml/min; Est GFR (Non-African American) 34.7 ml/min; Magnesium 1.9 mg/dl (1.7-2.4); Potassium 3.5 mmol/L (3.5-5.1)
--- NOTE | 2023-11-08 16:02 | Hospitalist Progress Note ---
Date of Service November 08, 2023 Assessment & Plan (1) CHF (congestive heart failure): (2) LBBB (left bundle branch block): (3) Bilateral lower extremity edema: (4) Hypertension: (5) Anemia: (6) Diabetes mellitus, type II, insulin dependent: (7) IgG gammopathy: (8) CKD (chronic kidney disease): Plan Ms. Urrutia is an 88 year old woman with past medical history remarkable for chronic heart failure with preserved EF (EF 60%, TTE 2023), PVD, hypertension, hyperlipidemia, DM 2 insulin requiring, CKD 4(baseline creatinine 1.7),MGUS/IgG Gammopathy, familial hypocalciuric hypercalcemia, carotid disease and renal artery stenosis, mood disorder admitted on 10/29 for acute heart failure with preserved EF. Patient follows Dr. Schroeder, who increased lasix dosing from MWF to every other day. Patient not feeling improved despite continuous oxygen use. Discussed case with Dr. Frye, heme/onc. Further anemia labs ordered and 1 UPRBC ordered and administered. Labs with low B12, folate, and iron (obtained prior to transfusion). Will replace PO. Acute on chronic anemia, likely multifactorial iso CKD, IgG gammopathy Iron Deficiency Recent anemia labs as Op: Macrocytic anemia with low TIBC of 227, iron 46, Transferrin 20, folic acid 7.2, vit b 12 391 Referral recently placed regarding macrocytic anemia, renal insufficiency, IgG kappa clonal gammopathy to OP hematology SPEP on 10/13 revealed a monoclonal IgG kappa gammopathy. Similar to immunofixation results from 08/[address] Nunez in 05/2023 regarding this finding, however at that time anemia stable with hgb of 12. --Reticulocyte count elevated 3.5. Immature reticulocyte fraction 22%. Haptoglobin pending. --Normal LDH -- Peripheral smear: Suggest likely multifactorial anemia due to CKD, IgA gammopathy, nutritional deficiency --Hair test negative --Prior provider discussed with Dr. Casey Frye 10/30 -Immunofixation -Immunofixation/: Restricted band M spike migrating in the gamma globulin region. IgG [place] monoclonal band present. -UPEP : Monoclonal protein present. Electrophoresis revealed a faint band in the beta region, could indicate presence of monoclonal immunoglobulin. -Anemia labs, ferritin 82 , iron 30 TIBC 228, b12 199 folate 7.54 -Started on oral b12, folate, and iron supplementation as low to lower normal values for above --S/P 1 unit PRBC on 10/30 for question of symptomatic anemia --Will need follow-up with heme oncology as outpatient Hb stable Will recheck CBC tomorrow Acute Heart failure with preserved EF Mild Trop elevation, appears to have chronic elevation --ECHO 08/14/2023, EF 60-65%, G1DD, no PHTN BNP 414 10/29 --Home regimen: Hydralazine 100mg TID, Isordil 30mg TID, coreg 37.5 BID, amlodipine 10mg Prior admissions: verapamil discontinued in favor of amlodipine, ANANT discontinued, labetalol for Coreg --Spironolactone discontinued previously secondary to hyperkalemia, hyponatremia -s/p IV lasix Declined liu catheter placement --Monitor I's and O's, daily weight -Continue Coreg, amlodipine 10mg daily, hydralazine 100mg TID, isosorbide --Appreciate cardiology input IV Lasix held due to ongoing diarrhea currently Monitor volume status closely Continue Lasix 40 mg daily Needs follow-up with cardiology on discharge Plan for 2 step tomorrow Hypokalemia Likely due to GI losses, diuretics Replace electrolytes as needed Monitor As per prior provider: Chronic hypoxic Resp failure, requiring continuous O2 Nocturnal Hypoxemia Daytime fatigue Given nocturnal hypertension and question of nocturnal hypoxemia, plan for overnight pulse oximetry test Qualifies for home oxygen at night 2L Patient now on continuous home O2 Nausea, vomiting, diarrhea Secondary to norovirus infection Suspected diverticulitis--less likely per surgery --CT ABD:No evidence for bowel obstruction. Evaluation of the bowel mucosa is slightly limited without contrast; however, no definite focal asymmetry suggested. Diverticulosis noted most prominently involving the descending and sigmoid colon. There is focal pericolonic fat stranding adjacent to the posterior diverticula in the distal descending colonic segment. Subtle diverticulitis is suspected. Cholelithiasis without associated sonographic findings to suggest acute cholecystitis. No biliary dilatation. -- Stool for C. difficile negative --Appreciate surgery input -- No indication for antibiotics Conservative management Isolation precautions Imodium as needed Clinically improved Hypomagnesemia Replace and monitor electrolytes as needed NSVT Chronic LBBB Asymptomatic, < 30seconds Continue carvedilol Appreciate cardiology input CKD IV Renal artery stenosis. -Left 50% origin stenosis & atrophic right kidney, on 2022 renal duplex Avoid nephrotoxic agents, including ANANT/ARB Monitor renal function Asymptomatic 50-69% SLIME stenosis, stable velocities on most recent duplex Asymptomatic < 50% LICA stenosis Followed with vascular surgery for R ICA stenosis Continue home ASA and statin Hypoglycemic episode DM II HbA1C 5.0% , may be falsely low due to Anemia, however, patient doing well with no insulin requirements Tresiba 30U daily, Jardiance, Tradjenta, repaglinide Continue insulin while hospitalized Avoid hypoglycemic episodes as able Will need follow-up with MTM clinic on discharge for further adjustment of medications Depression Continue Sertraline DVT Px: Teds, scds CODE STATUS: Full code Disposition Likely home tomorrow Admission and Anticipated Discharge Date Admission Date: October 30, 2023 Subjective Patient is seen and examined at bedside States feeling better today Denies any diarrhea today Offers no new complaints Denies any chest pain, dyspnea, abdominal pain Appetite slowly improving Review of Systems Review of Systems: All systems reviewed & are unremarkable except as noted in Subjective Physical Exam Physical Exam: Physical Exam: Vitals signs as noted above General Appearance: Moderately built and nourished, elderly, no apparent distress Head: normocephalic, Atraumatic Eyes: normal inspection, EOMI Neck: supple, Trachea midline Respiratory/Chest: Normal breath sounds, CTA, No accessory muscle use Cardiovascular: S1, S2, No murmur Abdomen/GI:Soft, Non tender, Bowel sounds present Extremities/Musculoskeletal:normal inspection, Trace edema Neurologic/Psych:AAOX3, grossly no focal neurological deficits Skin: normal color, warm Results & Data Results & Data Vital Signs (Past 12 Hours) Vital Signs Temp Pulse Pulse Resp BP Pulse Ox O2 Del Method 11/08/23 15:36 69 11/08/23 11:43 36.9 C 65 17 136/71 98 Nasal Cannula 11/08/23 07:52 36.8 C 74 16 157/72 H 97 Nasal Cannula 11/08/23 07:05 Nasal Cannula 11/08/23 06:56 79 11/08/23 04:00 36.9 C 69 18 152/67 H 98 Nasal Cannula O2 Flow Rate 11/08/23 15:36 11/08/23 11:43 2 11/08/23 07:52 2 11/08/23 07:05 2 11/08/23 06:56 11/08/23 04:00 2 Laboratory Results [facility] 11/08/23 06:34 Sodium 133 L Potassium 3.5 Chloride 102 Carbon Dioxide 24 BUN 20 Creatinine 1.35 H Glucose 161 H Calcium 8.1 L (1) CHF (congestive heart failure) Heart failure chronicity: acute on chronic Heart failure type: unspecified Qualified Code(s): I50.9 - Heart failure, unspecified (4) Hypertension Hypertension type: unspecified Qualified Code(s): I10 - Essential (primary) hypertension (8) CKD (chronic kidney disease) Chronic kidney disease stage: unspecified stage Qualified Code(s): N18.9 - Chronic kidney disease, unspecified
[2023-11-09 06:52] LABS: Hematocrit (blood only) 26.9 % (37.0-47.0); Hemoglobin 8.6 g/dl (12.0-16.0); Mean Corpuscular Hemoglobin 30.2 pg (25.0-34.0); Mean Corpuscular Volume 94.4 fL (80.0-100.0); Mean Platelet Volume 8.9 fL (9.4-12.4); Platelet Count 287 K/uL (130-400); RDW Coefficient of Variation 14.3 % (11.5-14.5); RDW Standard Deviation 49.9 fL (36.4-46.3); Red Blood Count 2.85 M/uL (4.20-5.40); White Blood Count 6.78 K/ul (4.8-10.8)
[2023-11-09 07:13] LABS: BUN Creatinine Ratio 13.5 (10-20); Calcium 8.1 mg/dl (8.6-10.3); Creatinine Clr Calc Pharmacy 29.3 ml/min; Est GFR (Non-African American) 35.4 ml/min; Potassium 3.1 mmol/L (3.5-5.1)
[2023-11-09] MEDS: SODIUM CHLORIDE 0.65% NA SOLN 45 ML (OCEAN) PRN (07:33)
[2023-11-09] MEDS: POTASSIUM CHLORIDE CRTAB 20 MEQ TABCR PO ONE (09:23)
--- NOTE | 2023-11-09 13:44 | Hospitalist Progress Note ---
Date of Service November 09, 2023 Assessment & Plan (1) CHF (congestive heart failure): (2) LBBB (left bundle branch block): (3) Bilateral lower extremity edema: (4) Hypertension: (5) Anemia: (6) Diabetes mellitus, type II, insulin dependent: (7) IgG gammopathy: (8) CKD (chronic kidney disease): Plan Ms. Urrutia is an 88 year old woman with past medical history remarkable for chronic heart failure with preserved EF (EF 60%, TTE 2023), PVD, hypertension, hyperlipidemia, DM 2 insulin requiring, CKD 4(baseline creatinine 1.7),MGUS/IgG Gammopathy, familial hypocalciuric hypercalcemia, carotid disease and renal artery stenosis, mood disorder admitted on 10/29 for acute heart failure with preserved EF. Patient follows Dr. Schroeder, who increased lasix dosing from MWF to every other day. Patient not feeling improved despite continuous oxygen use. Discussed case with Dr. Frye, heme/onc. Further anemia labs ordered and 1 UPRBC ordered and administered. Labs with low B12, folate, and iron (obtained prior to transfusion). Will replace PO. Acute on chronic anemia, likely multifactorial iso CKD, IgG gammopathy Iron Deficiency Recent anemia labs as Op: Macrocytic anemia with low TIBC of 227, iron 46, Transferrin 20, folic acid 7.2, vit b 12 391 Referral recently placed regarding macrocytic anemia, renal insufficiency, IgG kappa clonal gammopathy to OP hematology SPEP on 10/13 revealed a monoclonal IgG kappa gammopathy. Similar to immunofixation results from 08/[address] Nunez in 05/2023 regarding this finding, however at that time anemia stable with hgb of 12. --Reticulocyte count elevated 3.5. Immature reticulocyte fraction 22%. Haptoglobin pending. --Normal LDH -- Peripheral smear: Suggest likely multifactorial anemia due to CKD, IgA gammopathy, nutritional deficiency --Hair test negative --Prior provider discussed with Dr. Casey Frye 10/30 -Immunofixation -Immunofixation/: Restricted band M spike migrating in the gamma globulin region. IgG [place] monoclonal band present. -UPEP : Monoclonal protein present. Electrophoresis revealed a faint band in the beta region, could indicate presence of monoclonal immunoglobulin. -Anemia labs, ferritin 82 , iron 30 TIBC 228, b12 199 folate 7.54 -Started on oral b12, folate, and iron supplementation as low to lower normal values for above --S/P 1 unit PRBC on 10/30 for question of symptomatic anemia --Will need follow-up with heme oncology as outpatient Hb stable Plan to discharge home today Acute Heart failure with preserved EF Mild Trop elevation, appears to have chronic elevation --ECHO 08/14/2023, EF 60-65%, G1DD, no PHTN BNP 414 10/29 --Home regimen: Hydralazine 100mg TID, Isordil 30mg TID, coreg 37.5 BID, amlodipine 10mg Prior admissions: verapamil discontinued in favor of amlodipine, ANANT discontinued, labetalol for Coreg --Spironolactone discontinued previously secondary to hyperkalemia, hyponatremia -s/p IV lasix Declined liu catheter placement --Monitor I's and O's, daily weight -Continue Coreg, amlodipine 10mg daily, hydralazine 100mg TID, isosorbide --Appreciate cardiology input IV Lasix held due to ongoing diarrhea currently Monitor volume status closely Continue Lasix 40 mg daily Advised to follow-up with cardiology on discharge 2 step: Did not qualify for oxygen Hypokalemia Likely due to GI losses, diuretics Replace electrolytes as needed Monitor As per prior provider: Chronic hypoxic Resp failure, requiring continuous O2 Nocturnal Hypoxemia Daytime fatigue Given nocturnal hypertension and question of nocturnal hypoxemia, plan for overnight pulse oximetry test Qualifies for home oxygen at night 2L Patient now on continuous home O2 Nausea, vomiting, diarrhea Secondary to norovirus infection Suspected diverticulitis--less likely per surgery --CT ABD:No evidence for bowel obstruction. Evaluation of the bowel mucosa is slightly limited without contrast; however, no definite focal asymmetry suggested. Diverticulosis noted most prominently involving the descending and sigmoid colon. There is focal pericolonic fat stranding adjacent to the posterior diverticula in the distal descending colonic segment. Subtle diverticulitis is suspected. Cholelithiasis without associated sonographic findings to suggest acute cholecystitis. No biliary dilatation. -- Stool for C. difficile negative --Appreciate surgery input -- No indication for antibiotics Conservative management Isolation precautions Imodium as needed Resolved Hypomagnesemia Replace and monitor electrolytes as needed NSVT Chronic LBBB Asymptomatic, < 30seconds Continue carvedilol Appreciate cardiology input CKD IV Renal artery stenosis. -Left 50% origin stenosis & atrophic right kidney, on 2022 renal duplex Avoid nephrotoxic agents, including ANANT/ARB Monitor renal function Asymptomatic 50-69% SLIME stenosis, stable velocities on most recent duplex Asymptomatic < 50% LICA stenosis Followed with vascular surgery for R ICA stenosis Continue home ASA and statin Hypoglycemic episode DM II HbA1C 5.0% , may be falsely low due to Anemia, however, patient doing well with no insulin requirements Tresiba 30U daily, Jardiance, Tradjenta, repaglinide Continue insulin while hospitalized Avoid hypoglycemic episodes as able Will need follow-up with [facility] clinic on discharge for further adjustment of medications Depression Continue Sertraline DVT Px: Teds, scds CODE STATUS: Full code Disposition Home with home health Admission and Anticipated Discharge Date Admission Date: October 30, 2023 Subjective Patient is seen and examined at bedside Diarrhea resolved States feeling slightly tired but otherwise no complaints Updated patient's daughter over the phone Denies any chest pain, dyspnea, abdominal pain Plan to discharge home today Review of Systems Review of Systems: All systems reviewed & are unremarkable except as noted in Subjective Physical Exam Physical Exam: Physical Exam: Vitals signs as noted above General Appearance: Moderately built and nourished, elderly, no apparent distress Head: normocephalic, Atraumatic Eyes: normal inspection, EOMI Neck: supple, Trachea midline Respiratory/Chest: Normal breath sounds, CTA, No accessory muscle use Cardiovascular: S1, S2, No murmur Abdomen/GI:Soft, Non tender, Bowel sounds present Extremities/Musculoskeletal:normal inspection, Trace edema Neurologic/Psych:AAOX3, grossly no focal neurological deficits Skin: normal color, warm Results & Data Results & Data Vital Signs (Past 12 Hours) Vital Signs Temp Pulse Pulse Pulse Pulse Resp Resp 11/09/23 11:37 36.8 C 66 16 11/09/23 09:55 82 80 18 11/09/23 09:29 11/09/23 08:31 66 11/09/23 07:39 36.6 C 73 16 11/09/23 03:44 36.9 C 77 18 11/09/23 02:38 Resp BP BP Pulse Ox Pulse Ox Pulse Ox O2 Del Method 11/09/23 11:37 120/62 93 Room Air 11/09/23 09:55 18 90 94 11/09/23 09:29 Nasal Cannula 11/09/23 08:31 11/09/23 07:39 161/78 H 98 Nasal Cannula 11/09/23 03:44 174/70 H 95 Nasal Cannula 11/09/23 02:38 Nasal Cannula O2 Flow Rate 11/09/23 11:37 11/09/23 09:55 11/09/23 09:29 2 11/09/23 08:31 11/09/23 07:39 2 11/09/23 03:44 2 11/09/23 02:38 2 Laboratory Results Short CBC 11/09/23 Range/Units 06:24 WBC 6.78 (4.8-10.8) K/ul Hgb 8.6 L (12.0-16.0) g/dl Hct 26.9 L (37.0-47.0) % Plt Count 287 (130-400) K/uL BMP 11/09/23 06:24 Sodium 135 L Potassium 3.1 L Chloride 103 Carbon Dioxide 25 BUN 18 Creatinine 1.33 H Glucose 148 H Calcium 8.1 L (1) CHF (congestive heart failure) Heart failure chronicity: acute on chronic Heart failure type: unspecified Qualified Code(s): I50.9 - Heart failure, unspecified (4) Hypertension Hypertension type: unspecified Qualified Code(s): I10 - Essential (primary) hypertension (8) CKD (chronic kidney disease) Chronic kidney disease stage: unspecified stage Qualified Code(s): N18.9 - Chronic kidney disease, unspecified
--- NOTE | 2023-11-09 14:27 | Discharge Summary ---
Date of Service November 09, 2023 Admission HPI Per Admitting Provider This is an 88-year-old female with PMHx of chronic hypertension, history of hypertensive urgency, diastolic CHF, right carotid artery stenosis, CKD stage III, DM type II, HLD, IgG kappa clonal gammopathy, macrocytic anemia, who presents to the hospital with increased weight gain, edema in lower extremities and progressive shortness of breath over the past 2 weeks. She was recently seen by her cosmetic assembler as outpatient on 10/14/2023. She has been taking Lasix 40 mg p.o. every other day for lower extremity edema and weight gain. Her dry weight is somewhere between 193 and 197 however she is not quite sure. Reports that she has a scale which transmits her daily weights electronically to [employer] system. I do not have access to those records currently. Last week she took an additional Lasix tablet with minimal results. She has previously been on spironolactone but due to hyperkalemia and hyponatremia she was taken off this medication. She does follow with Dr. Colbert with nephrology as an outpatient as well. In addition she has recently been referred to see hematology for persistent anemia with history of her IgG gammopathy, that appointment was supposed to happen on 10/28 however did not go. Patient states that she feels generally well overall but is requiring oxygen whenever she does exertional things such as walking around her house as well as at bedtime, wears 2 L. She does not require oxygen at rest. Denies any cough, chest pain at rest or on exertion, fever, chills or sick contacts. She notes her appetite has remained the same. She denies any increase in salt intake or fluids. Admission Exam Per Admitting Provider General: awake, alert, no apparent distress, obese white female Head: Normocephalic, atraumatic ENT: PERRL, EOMI, no pharyngeal exudate, mucous membranes moist Chest: Clear to auscultation, on 2 LPM NC, O2 sats 99%, no adventitious breath sounds Cardiac: Regular rate and rhythm, + systolic murmur, no JVD, normal peripheral pulses, 1+ pitting edema in BLE up to knees good capillary refill Abdominal: NABS x 4 quadrants, soft, nondistended, nontender to palpation, no rebound or guarding Extremities: Normal inspection, 1+ pitting peripheral edema, no erythema, calfs nontender to palpation Psych: Normal mood and affect Neuro: AAO x 3, strength intact bilaterally and rated 5/5, no motor deficits, speech is clear, no peripheral sensory deficits Principal Diagnosis Acute Heart failure with preserved EF Hypokalemia Anemia Norovirus infection Nonsustained ventricular tachycardia Discharge Data Allergies Allergy/AdvReac Type Severity Reaction Status Date / Time latex Allergy Severe DIFFICULTY Verified 08/12/23 21:08 BREATHING, TONGUE SWELLS Penicillins Allergy Severe DIFFICULTY Verified 08/12/23 21:08 BREATHING, TONGUE SWELLS Sulfa (Sulfonamide Allergy Severe DIFFICULTY Verified 08/12/23 21:08 Antibiotics) BREATHING, TONGUE SWELLS Consultations 10/30/23 14:45 ED Decision to Admit Stat 10/30/23 15:51 Consult Cardiology Routine 10/31/23 10:40 Consult Hematology Routine 11/02/23 08:39 Consult General Surgery Routine Procedures Performed Laboratory Results WBC 6.78 K/ul (4.8-10.8) 11/09/23 06:24 RBC 2.85 M/uL (4.20-5.40) L 11/09/23 06:24 Hgb 8.6 g/dl (12.0-16.0) L 11/09/23 06:24 Hct 26.9 % (37.0-47.0) L 11/09/23 06:24 MCV 94.4 fL (80.0-100.0) 11/09/23 06:24 MCH 30.2 pg (25.0-34.0) 11/09/23 06:24 MCHC 32.0 g/dL (32.0-36.0) 11/09/23 06:24 RDW Std Deviation 49.9 fL (36.4-46.3) H 11/09/23 06:24 RDW Coeff of Rojelio 14.3 % (11.5-14.5) 11/09/23 06:24 Plt Count 287 K/uL (130-400) 11/09/23 06:24 MPV 8.9 fL (9.4-12.4) L 11/09/23 06:24 Immature Gran % (Auto) 0.3 % 10/30/23 11:35 Neut % (Auto) 74.6 % 10/30/23 11:35 Lymph % (Auto) 17.1 % 10/30/23 11:35 [place] % (Auto) 6.9 % 10/30/23 11:35 Eos % (Auto) 0.6 % 10/30/23 11:35 Baso % (Auto) 0.5 % 10/30/23 11:35 Reticulocyte % (Auto) 3.53 % (0.50-2.00) H 10/31/23 05:53 Neut # (Auto) 5.80 K/uL (1.40-6.50) 10/30/23 11:35 Lymph # (Auto) 1.33 K/uL (1.20-3.40) 10/30/23 11:35 [place] # (Auto) 0.54 K/uL (0.11-0.59) 10/30/23 11:35 Eos # (Auto) 0.05 K/uL (0.00-0.50) 10/30/23 11:35 Baso # (Auto) 0.04 K/uL (0.00-0.20) 10/30/23 11:35 Reticulocyte # 0.090 10^6/uL (0.020-0.100) 10/31/23 05:53 Immature Gran # (Auto) 0.02 K/uL (0.01-0.20) 10/30/23 11:35 Polychromasia 1+ 10/30/23 11:35 Peripher Smr Path Cons 11/03/23 06:04 Immature Retic Fraction 22.3 % (2.3-15.9) H 10/31/23 05:53 Retic Hgb Content 32.8 pg (28.2-36.6) 10/31/23 05:53 Haptoglobin 82 mg/dL (43-212) 10/31/23 19:07 PT 11.4 Seconds (9.0-12.0) 10/30/23 11:35 INR 1.0 (0.9-1.1) 10/30/23 11:35 APTT 35 Seconds (21-31) H 10/30/23 11:35 PTT Ratio 1.2 10/30/23 11:35 Sodium 135 mmol/L (136-145) L 11/09/23 06:24 Potassium 3.1 mmol/L (3.5-5.1) L 11/09/23 06:24 Chloride 103 mmol/L (98-107) 11/09/23 06:24 Carbon Dioxide 25 mmol/L (21-32) 11/09/23 06:24 Anion Gap 7 (3-11) 11/09/23 06:24 BUN 18 mg/dl (6-23) 11/09/23 06:24 Creatinine 1.33 mg/dl (0.6-1.2) H 11/09/23 06:24 Est Cr Clr Drug Dosing 29.3 ml/min 11/09/23 06:24 Est GFR ( Amer) 41.0 ml/min 11/09/23 06:24 Est GFR (Non-Af Amer) 35.4 ml/min 11/09/23 06:24 BUN/Creatinine Ratio 13.5 (10-20) 11/09/23 06:24 Glucose 148 mg/dl (70-99(Fasting)) H 11/09/23 06:24 POC Glucose 215 mg/dl (70-99) H 11/09/23 12:21 Estimat Average Glucose 97 mg/dl 10/31/23 05:53 Hemoglobin A1c 5.0 % (4.5-5.6) 10/31/23 05:53 Calcium 8.1 mg/dl (8.6-10.3) L 11/09/23 06:24 Phosphorus 3.5 mg/dl (2.5-4.9) 11/02/23 06:43 Magnesium 1.9 mg/dl (1.7-2.4) 11/08/23 06:34 Iron 30 mcg/dl (35-150) L 10/31/23 05:53 TIBC 228 mcg/dl (250-450) L 10/31/23 05:53 Unsaturated IBC 198 mcg/dl (155-355) 10/31/23 05:53 Transferrin % Sat 13 % (15-50) L 10/31/23 05:53 Ferritin 82.0 ng/ml (8-388) 10/31/23 05:53 Total Bilirubin 0.5 mg/dl (0.2-1.0) 11/01/23 05:49 AST 16 U/L (13-39) 11/01/23 05:49 ALT 9 U/L (7-52) 11/01/23 05:49 Alkaline Phosphatase 32 U/L (34-104) L 11/01/23 05:49 Lactate Dehydrogenase 228 U/L (86-244) 10/31/23 05:53 Troponin I High Sens 19.5 pg/ml (0-14) H 10/30/23 11:35 B-Natriuretic Peptide 414 pg/ml (0-100) H 10/30/23 12:39 Total Protein 6.8 gm/dl (6.0-8.3) 11/01/23 05:49 Total Protein (PEP) 6.5 g/dL (6.1-8.1) 11/01/23 05:49 Albumin 3.6 gm/dl (3.4-5.0) 11/01/23 05:49 Albumin (PEP) 3.3 g/dL (3.8-4.8) L 11/01/23 05:49 Globulin 3.2 gm/dl (2.5-4.0) 11/01/23 05:49 Albumin/Globulin Ratio 1.1 (0.9-2) 11/01/23 05:49 Cvfjc-1-Ccmzanjne 0.4 g/dL (0.2-0.3) H 11/01/23 05:49 Twsbx-9-Crkghvtug 0.8 g/dL (0.5-0.9) 11/01/23 05:49 Vxwk-0-Reeojuax 0.3 g/dL (0.4-0.6) L 11/01/23 05:49 Fdaj-3-Guenbpdm 0.3 g/dL (0.2-0.5) 11/01/23 05:49 Gamma Globulins 1.3 g/dL (0.8-1.7) 11/01/23 05:49 Monoclonal Peak 3 DNR g/dL (NONE DETECTED) 11/01/23 05:49 Ser Monoclonl Protein 1.0 g/dL (NONE DETECTED) H 11/01/23 05:49 Ser Monoclonal Prot 2 DNR g/dL (NONE DETECTED) 11/01/23 05:49 PEP Interpretation SEE NOTE 11/01/23 05:49 Vitamin B12 199 pg/ml (180-914) 10/31/23 05:53 Folate 7.54 ng/ml (>5.38) 10/31/23 05:53 U Random Total Protein 119 mg/dL (5-24) H 11/01/23 07:50 Ur Creatinine mg/dL 53 mg/dL (20-275) 11/01/23 07:50 Protein/Creatinin Ratio 2.245 (0.024-0.184) H 11/01/23 07:50 Urine Albumin (%) 58 % 11/01/23 07:50 U Xcsxu-5-Errdnykp (%) 6 % 11/01/23 07:50 U Pimrj-6-Hollqjgw (%) 7 % 11/01/23 07:50 U Beta Globulin (%) 13 % 11/01/23 07:50 U Gamma Globulin (%) 16 % 11/01/23 07:50 U Abnormal Prot Band 1 11 mg/dL (NONE DETECTED) H 11/01/23 07:50 U Abnormal Prot Band 2 DNR mg/dL (NONE DETECTED) 11/01/23 07:50 U Abnormal Prot Band 3 DNR mg/dL (NONE DETECTED) 11/01/23 07:50 Urine PEP Interpret SEE NOTE 11/01/23 07:50 Stool Occult Bld Scrn Negative (Negative) 11/02/23 07:27 Stl C. cayetanensis PCR Not Detected (NotDetected) 11/02/23 05:40 Stool Rotavirus A PCR Not Detected (NotDetected) 11/02/23 05:40 Stl Adenov F PCR Not Detected (NotDetected) 11/02/23 05:40 Stool Astrovirus (PCR) Not Detected (NotDetected) 11/02/23 05:40 Stool Campylobacter PCR Not Detected (NotDetected) 11/02/23 05:40 Stl C. diff Tox B Gene Negative Cdiff Gene (Neg) 11/02/23 05:40 Stool Cryptosporidium PCR Not Detected (NotDetected) 11/02/23 05:40 Stl E.coli Shiga Tox PCR Not Detected (NotDetected) 11/02/23 05:40 Stl Enterotoxigenic E PCR Not Detected (NotDetected) 11/02/23 05:40 Stool EPEC (PCR) Not Detected (NotDetected) 11/02/23 05:40 Stool EAEC (PCR) Not Detected (NotDetected) 11/02/23 05:40 Stl E. histolytica PCR Not Detected (NotDetected) 11/02/23 05:40 Stool Giardia Lamblia PCR Not Detected (NotDetected) 11/02/23 05:40 Stool Salmonella PCR Not Detected (NotDetected) 11/02/23 05:40 Stool Sapovirus (PCR) Not Detected (NotDetected) 11/02/23 05:40 Stl P. shigelloides PCR Not Detected (NotDetected) 11/02/23 05:40 Stl Shigella/EIEC PCR Not Detected (NotDetected) 11/02/23 05:40 St Y.enterocolitica PCR Not Detected (NotDetected) 11/02/23 05:40 Stool Vibrio (PCR) Not Detected (NotDetected) 11/02/23 05:40 Stl Vibrio cholerae PCR Not Detected (NotDetected) 11/02/23 05:40 Stl Norovirus GI/GII PCR DETECTED (NotDetected) A* 11/02/23 05:40 Serum Immunofixation SEE NOTE 11/01/23 05:49 Blood Type A Negative 10/31/23 11:43 Blood Type Recheck A Negative 10/31/23 12:04 Antibody Screen NEGATIVE 10/31/23 11:43 Direct Antiglob Test Negative (Negative) 10/31/23 11:43 JENNIFER (IgG-AHG) Neg (Negative) 10/31/23 11:43 JENNIFER, Polyspecific Neg (Negative) 10/31/23 11:43 JENNIFER C3b, C3d 5 Min Neg (Negative) 10/31/23 11:43 Crossmatch See Detail 10/31/23 11:43 Impressions Chest X-Ray 10/30/23 11:21 XR chest 1V portable HISTORY: Chest pain, nonspecific COMPARISON: Chest 09/01/2023. FINDINGS: No pneumothorax. Trace bilateral pleural effusions. The heart remains enlarged. Aortic calcifications again noted. There is diffuse interstitial/vascular thickening likely representing mild pulmonary edema. This has improved in the interval. No acute fractures. IMPRESSION: Cardiomegaly with mild interstitial pulmonary edema and trace bilateral pleural effusions. This has improved compared to the prior study. ACT 112: Negative or not required by law. Electronically signed by: Alber Capellan M.D. 10/30/2023 12:58 PM KUB X-Ray 11/01/23 18:10 KUB HISTORY: nasuea/vomting COMPARISON: Abdomen and pelvis CT 08/14/2023. FINDINGS: The bowel gas pattern is unremarkable. There are no dilated loops of small bowel to suggest an obstruction. No renal calculi. No ureteral calculi. No pneumoperitoneum or pneumatosis. Calcified uterine fibroid again noted within the pelvis. IMPRESSION: Nonobstructive bowel gas pattern. ACT 112: Negative or not required by law. Electronically signed by: Alber Capellan M.D. 11/01/2023 6:40 PM Abdomen/Pelvis CT 11/01/23 19:29 Exam(s): CT ABDOMEN + PELVIS Without Contrast EXAM: CT Abdomen and Pelvis Without Intravenous Contrast CLINICAL HISTORY: severe NV and diarrhea. TECHNIQUE: Axial computed tomography images of the abdomen and pelvis without intravenous contrast. CTDI is 27 mGy and DLP is 1170 mGy-cm. Automated exposure control was utilized for the study. A dose lowering technique was utilized adhering to the principles of ALARA. COMPARISON: CT abdomen and pelvis without contrast dated 08/24/2023 FINDINGS: Lung bases: Unremarkable. No mass. No consolidation. Pleural space: Layering bilateral pleural effusions, right greater than left, with the right effusion measuring approximately 2 cm in diameter. No loculation. Mediastinum: There is mild fluid in the distal thoracic esophagus without obvious esophageal mucosal thickening. ABDOMEN: Liver: Unremarkable. Gallbladder and bile ducts: Multiple calcified subcentimeter gallstones measuring up to 6 mm in diameter. The gallbladder is moderately distended without CT evidence for gallbladder wall thickening or biliary dilatation. Pancreas: Unremarkable. No ductal dilation. Spleen: Unremarkable. No splenomegaly. Adrenals: Unremarkable. No mass. Kidneys and ureters: The right kidney is atrophic in appearance. The unenhanced left kidney demonstrates normal contours. No hydronephrosis or obstructing nephrolithiasis. A cortical cyst is noted involving the inferolateral left kidney measuring 17 x 22 mm. Detailed analysis is limited on this noncontrast examination. Stomach and bowel: The stomach is mild to moderately distended with fluid and minimal hyperdense presumed ingested material. No gastric mucosal thickening. No evidence for bowel obstruction. Evaluation of the bowel mucosa is slightly limited without contrast; however, no definite focal asymmetry suggested. Diverticulosis noted most prominently involving the descending and sigmoid colon. There is focal pericolonic fat stranding adjacent to the posterior diverticula in the distal descending colonic segment. PELVIS: Appendix: The appendix is not clearly delineated. No secondary findings to suggest acute appendicitis. Bladder: Unremarkable. No stones. Reproductive: Unremarkable as visualized. ABDOMEN and PELVIS: Intraperitoneal space: Unremarkable. No free air. No significant fluid collection. Bones/joints: Grade 1 anterolisthesis of L4 on L5. Disc space narrowing with architectural hypertrophic changes and vacuum phenomenon from L3-L4 through L5-S1. No acute osseous abnormality. No dislocation. Soft tissues: Unremarkable. Vasculature: Atherosclerotic calcification of the aorta without aneurysm. Lymph nodes: Unremarkable. No enlarged lymph nodes. IMPRESSION: 1. There is mild fluid in the distal thoracic esophagus without obvious esophageal mucosal thickening. Mild to moderate fluid distention the stomach without gastric mucosal thickening. The clinical significance of this finding is indeterminant. 2. No evidence for bowel obstruction. Evaluation of the bowel mucosa is slightly limited without contrast; however, no definite focal asymmetry suggested. Diverticulosis noted most prominently involving the descending and sigmoid colon. There is focal pericolonic fat stranding adjacent to the posterior diverticula in the distal descending colonic segment. Subtle diverticulitis is suspected. 3. Layering bilateral pleural effusions, right greater than left, with the right effusion measuring approximately 2 cm in diameter. No loculation. These are new from the previous examination. 4. Cholelithiasis without associated sonographic findings to suggest acute cholecystitis. No biliary dilatation. Electronically signed by: Titus Nascimento MD 11/01/23 21:15 PM Ordered Studies 11/01/23 19:29 CT abd pelvis wo con Urgent Hospital Course (1) CHF (congestive heart failure): (2) LBBB (left bundle branch block): (3) Bilateral lower extremity edema: (4) Hypertension: (5) Anemia: (6) Diabetes mellitus, type II, insulin dependent: (7) IgG gammopathy: (8) CKD (chronic kidney disease): Plan Ms. Urrutia is an 88 year old woman with past medical history remarkable for chronic heart failure with preserved EF (EF 60%, TTE 2023), PVD, hypertension, hyperlipidemia, DM 2 insulin requiring, CKD 4(baseline creatinine 1.7),MGUS/IgG Gammopathy, familial hypocalciuric hypercalcemia, carotid disease and renal artery stenosis, mood disorder admitted on 10/29 for acute heart failure with preserved EF. Patient follows Dr. Schroeder, who increased lasix dosing from MWF to every other day. Patient not feeling improved despite continuous oxygen use. Discussed case with Dr. Frye, heme/onc. Further anemia labs ordered and 1 UPRBC ordered and administered. Labs with low B12, folate, and iron (obtained prior to transfusion). Will replace PO. Acute on chronic anemia, likely multifactorial iso CKD, IgG gammopathy Iron Deficiency Recent anemia labs as Op: Macrocytic anemia with low TIBC of 227, iron 46, Transferrin 20, folic acid 7.2, vit b 12 391 Referral recently placed regarding macrocytic anemia, renal insufficiency, IgG kappa clonal gammopathy to OP hematology SPEP on 10/13 revealed a monoclonal IgG kappa gammopathy. Similar to immunofixation results from 08/[address] Nunez in 05/2023 regarding this finding, however at that time anemia stable with hgb of 12. --Reticulocyte count elevated 3.5. Immature reticulocyte fraction 22%. Haptoglobin pending. --Normal LDH -- Peripheral smear: Suggest likely multifactorial anemia due to CKD, IgA gammopathy, nutritional deficiency --Hair test negative --Prior provider discussed with Dr. Casey Frye 10/30 -Immunofixation -Immunofixation/: Restricted band M spike migrating in the gamma globulin region. IgG [place] monoclonal band present. -UPEP : Monoclonal protein present. Electrophoresis revealed a faint band in the beta region, could indicate presence of monoclonal immunoglobulin. -Anemia labs, ferritin 82 , iron 30 TIBC 228, b12 199 folate 7.54 -Started on oral b12, folate, and iron supplementation as low to lower normal values for above --S/P 1 unit PRBC on 10/30 for question of symptomatic anemia --Will need follow-up with heme oncology as outpatient Hb stable Plan to discharge home today Acute Heart failure with preserved EF Mild Trop elevation, appears to have chronic elevation --ECHO 08/14/2023, EF 60-65%, G1DD, no PHTN BNP 414 10/29 --Home regimen: Hydralazine 100mg TID, Isordil 30mg TID, coreg 37.5 BID, amlodipine 10mg Prior admissions: verapamil discontinued in favor of amlodipine, ANANT discontinued, labetalol for Coreg --Spironolactone discontinued previously secondary to hyperkalemia, hyponatremia -s/p IV lasix Declined liu catheter placement --Monitor I's and O's, daily weight -Continue Coreg, amlodipine 10mg daily, hydralazine 100mg TID, isosorbide --Appreciate cardiology input IV Lasix held due to ongoing diarrhea currently Monitor volume status closely Continue Lasix 40 mg daily Advised to follow-up with cardiology on discharge 2 step: Did not qualify for oxygen Hypokalemia Likely due to GI losses, diuretics Replace electrolytes as needed Monitor As per prior provider: Chronic hypoxic Resp failure, requiring continuous O2 Nocturnal Hypoxemia Daytime fatigue Given nocturnal hypertension and question of nocturnal hypoxemia, plan for overnight pulse oximetry test Qualifies for home oxygen at night 2L Patient now on continuous home O2 Nausea, vomiting, diarrhea Secondary to norovirus infection Suspected diverticulitis--less likely per surgery --CT ABD:No evidence for bowel obstruction. Evaluation of the bowel mucosa is slightly limited without contrast; however, no definite focal asymmetry suggested. Diverticulosis noted most prominently involving the descending and sigmoid colon. There is focal pericolonic fat stranding adjacent to the posterior diverticula in the distal descending colonic segment. Subtle diverticulitis is suspected. Cholelithiasis without associated sonographic findings to suggest acute cholecystitis. No biliary dilatation. -- Stool for C. difficile negative --Appreciate surgery input -- No indication for antibiotics Conservative management Isolation precautions Imodium as needed Resolved Hypomagnesemia Replace and monitor electrolytes as needed NSVT Chronic LBBB Asymptomatic, < 30seconds Continue carvedilol Appreciate cardiology input CKD IV Renal artery stenosis. -Left 50% origin stenosis & atrophic right kidney, on 2022 renal duplex Avoid nephrotoxic agents, including ANANT/ARB Monitor renal function Asymptomatic 50-69% SLIME stenosis, stable velocities on most recent duplex Asymptomatic < 50% LICA stenosis Followed with vascular surgery for R ICA stenosis Continue home ASA and statin Hypoglycemic episode DM II HbA1C 5.0% , may be falsely low due to Anemia, however, patient doing well with no insulin requirements Tresiba 30U daily, Jardiance, Tradjenta, repaglinide Continue insulin while hospitalized Avoid hypoglycemic episodes as able Will need follow-up with [facility] clinic on discharge for further adjustment of medications Depression Continue Sertraline DVT Px: Teds, scds CODE STATUS: Full code Disposition Home with home health Total Time Total Time Spent Total Time Spent (In Minutes): 64 minutes Discharge Plan Discharge Items Patient Disposition: Home - Home Health Services Reason For Visit: CHF EXACERBATION Discharge Diagnosis: Acute Heart failure with preserved EF Hypokalemia Anemia Norovirus infection Nonsustained ventricular tachycardia Activity: Per Instructions section Exercise/Sports: Gradually increase as tolerated Non-emergency contact: Primary Care Provider, Specialist and Wire Steward Call non-emergency contact if: you have any medication questions, your symptoms worsen, your pain is concerning for you and you have a fever Follow-up/Referrals: Dalila Bauman MD [Primary Care Provider] - (Date & Time 11/12/2023 10:20 AM Provider Dalila Bauman MD Department General Internal Medicine [facility] ) Diet: Carb Consistent or DM2 and Heart Healthy Addtl Attending Provider Instructions: Follow-up with your primary care physician Dr. Bauman on 11/12/2023 10:20 AM Follow-up with your cosmetic assembler Dr. Billy/May Gipson PA-C in 2 to 3 weeks Follow-up with your field marketing manager Dr. Frye in 2 to 3 weeks for further evaluation of your anemia Follow-up with [facility] clinic for adjustment of your insulin/diabetic medications as needed to prevent hypoglycemic episodes -- Take potassium chloride 20 mEq 2 times a day for 3 days and then take 20 mEq once a day until follow-up with your primary care physician. Further inst ructions as per your physician. --Taking Lasix 40 mg daily as recommended by your cosmetic assembler --Obtain blood work(basic metabolic panel, magnesium levels) in 1 week to monitor your potassium, magnesium levels and kidney function Seek immediate medical attention if your symptoms reoccur or worsen Please take all medications as instructed on discharge list below. Please call if you have any questions or problems. You can reach a [facility] hospitalist on duty at [facility] 24 hours a day by calling [phone] Pending Studies at Discharge: No Stand-Alone Forms: My [facility] [employer], Smoking Cessation Medications and DC Order Prescriptions: New ferrous sulfate 325 mg (65 mg iron) Tablet,Delayed Release (Dr/Ec) 325 mg PO QAM Qty: 30 1RF furosemide 40 mg Tablet 40 mg PO QAM Qty: 30 1RF folic acid 1 mg Tablet 1 mg PO QAM Qty: 30 0RF cyanocobalamin (vitamin B-12) 500 mcg Tablet 500 mcg PO QAM Qty: 30 0RF Continued repaglinide 2 mg Tablet 2 mg PO AC aspirin 81 mg Tablet,Delayed Release (Dr/Ec) 81 mg PO QAM acetaminophen 500 mg Tablet 1,000 mg PO BID sertraline 50 mg Tablet 25 mg PO QAM Qty: 30 0RF loratadine 10 mg tablet 10 mg PO HS Tradjenta 5 mg tablet 5 mg PO DAILY atorvastatin 80 mg tablet 80 mg PO HS Jardiance 25 mg tablet 25 mg PO DAILY isosorbide dinitrate 30 mg tablet 30 mg PO TID Qty: 90 1RF Rx Instructions: allow nitrate-free interval of 12-14 hrs per 24-hr period coQ10 (ubiquinol) 200 mg Capsule 200 mg PO DAILY insulin degludec [Tresiba FlexTouch U-100] 100 unit/mL (3 mL) insulin pen 30 unit SUBCUT QAM Rx Instructions: original directions 30 units. 33 per pharmacy 10/30/23 PER [facility] "ON LANTUS 30 UNITS, UNTIL SHE GETS TRESBIA" Macular Health Formula 5-1-7.5 mg Capsule 1 cap PO QID carvedilol 25 mg Tablet 37.5 mg PO BIDM Qty: 90 0RF Mag 64 64 mg Tablet,Delayed Release (Dr/Ec) 64 mg PO DAILY Qty: 30 0RF amlodipine [Norvasc] 5 mg Tablet 10 mg PO DAILY Qty: 60 0RF hydralazine 100 mg tablet 100 mg PO TID potassium chloride 20 mEq tablet,ER particles/crystals 20 meq PO QAM Qty: 30 0RF Rx Instructions: Take potassium chloride 20 meq 2 times a day for 3 days and then take 20 meq daily Discontinued furosemide 40 mg tablet 40 mg PO .EVERY OTHER DAY Rx Instructions: every other day per pharmacy 10/30/23 original directions: 40mg on Mondays, Wednesdays, and Fridays Discharge Orders: Discharge Order (Routine); Ordered 11/09/23 Ordered By: Masoud King Admission Data Admit Date/Time: 10/30/23 14:28 Attending Provider: Masoud King Admit Provider: Mallika Herrera Primary Care Provider: Dalila Bauman Other Providers: Mallika Herrera; Martinez Lazaro; Casey Frye; John Luevano; Duane Robles; Clarisse Gar; Crow Mosquera; Phuc Caal; Dolly Wen; Bernie Hinton; Alex Betancourt Jr; Nilesh Marie; Titus Pineda; Colette Parsons
[2023-11-09] MEDS ORDERED: POTASSIUM CHLORIDE CRTAB 20 MEQ TABCR PO SCH (21:00)
== END 2023-11-09 16:56 | disposition home health service (06) | DRG 291 ==
LOC: ED 11:13 → SUATTDRO 14:28 → EDINP 14:28 → 2N 21:16

== ENCOUNTER 2023-12-06 17:41 | Inpatient (IN) ==
--- OUTSIDE RECORDS SUMMARY | 2023-12-06 17:47 | External Medical Summary | Summary of Care ---
Author Name Unknown Organization [facility] Address [address] [place] [place] [place] [address] Phone [phone] Care Team Providers Care Color Maker Name Role Phone Dalila Bauman MD Primary Care Provider [phone] Reason for Visit * Reason Onset Date Comments Advice 09/03/2023 Encounter Details Date Type Department Care Team (Late st Contact Info) Description 09/03/2023 Telephone General Internal Medicine [facility] [place] [address] [facility] [place] [address] Dalila Bauman MD 200 [facility] [place] [address] Advice Allergies Active Allergy Reactions Criticality Noted Date Comments Latex 01/09/2021 Penicillins 01/09/2021 Sulfa Antibiotics 01/09/2021 documented as of this encounter (statuses as of 12/03/2023) Medications Medication Sig Dispensed Refills Start Date [...] 3 times daily. DX: E11.9. 1 Kit 2 Active FreeStyle Jimmy 2 SensorIndication s:Type 2 diabetes mellitus with hemoglobin A1c goal of less than 8.0% (HCC) Use as directed every 14 days . Change every 14 weeks 2 Each 2 Active Acetaminophen 500 MG Oral Tablet (Tylenol) Take by mouth 2 Tablets every 8 hours as needed for Pain, Moderate. STOP ibuprofen 09/13/2021 100 Tablet 2 Active Additional Information Patient taking differently:1,000 mg OralBID (.AM/PM), STOP ibuprofen 09/13/2021, Reported on 08/28/2022 NATURAL SUPPLEMENT Take by mouth 4 Tablets daily . [facility] Plus Active Prodigy No Coding Blood Gluc In Vitro Strip (Glucose Blood)Indication s:Type 2 diabetes mellitus with hemoglobin A1c goal of less than 8.0% (HCC) Use to test blood glucose 3 times daily as directed. 300 Strip 3 3 Active Prevagen 10 MG Oral Capsule (Apoaequorin) Take by mouth every evening. Active Isosorbide Dinitrate 30 MG Oral Tablet [...] 3 Active CoQ10 200 MG Oral Capsule Active Repaglinide 2 MG Oral Tablet (Prandin)Indicat ions:Type 2 diabetes mellitus with hemoglobin A1c goal of less than 8.0% (HCC) take 1 tablet by mouth three times a day BEFORE MEALS Strength: 2 mg 270 Tablet 3 3 Active Melatonin ER 1 MG Oral [...] at bedtime 90 Tablet 3 3 Active Empagliflozin 25 MG [...] DX: E11.9 300 Each 3 3 Active Insulin Pen Needle 32G X 6 MMIndications:Ty pe 2 diabetes mellitus with hemoglobin A1c goal of less than 8.0% ([facility]) Use with Lantus once daily 100 Each 3 3 10/16/19 24 Discontinued Furosemide 20 MG Oral Tablet (Lasix)Indicatio ns:Type [...] 45 Tablet 3 3 09/16/19 24 Discontinued Atorvastatin Calcium 80 MG Oral Tablet (Lipitor)Indicat ions:Renal artery stenosis (HCC),Carotid stenosis, asymptomatic, right,Dyslipidem ia, goal LDL below 70 take 1 tablet by mouth at bedtime INCREASE 11/13/2021 90 Tablet 2 3 12/03/19 24 Discontinued(Ref ill) Tresiba FlexTouch 100 UNIT/ML Subcutaneous Solution Pen-injector (Insulin Degludec)Indicat ions:Type 2 diabetes mellitus with hemoglobin A1c goal of less than 8.0% ([facility]) Inject 33 Units under the skin in the morning. 5 Each 3 3 09/16/19 24 Discontinued hydrALAZINE HCl 100 MG Oral TabletIndication s:HTN, goal below 150/90,Type 2 diabetes mellitus with stage 3b chronic kidney disease, without long-term current use of insulin (HCC) Take 1 Tablet by mouth in the morning and 1 Tablet at noon and 1 Tablet before bedtime. 270 Tablet 3 3 12/03/19 24 Discontinued(Ref ill) Insulin Glargine Solostar 100 UNIT/ML Subcutaneous Solution Pen-injector (Lantus SoloStar)Indicat ions:Type 2 diabetes mellitus with hemoglobin A1c goal of less than 8.0% ([facility]) Inject 33 Units under the skin daily. 30 mL 3 09/16/19 24 Discontinued(For mulary/Cost) Labetalol HCl 200 MG Oral Tablet (Normodyne) Take 1 Tablet by mouth in the morning and 1 Tablet before bedtime. 09/10/19 24 Discontinued amLODIPine Besylate 5 MG Oral Tablet (Norvasc) Take 2 Tablets by mouth in the morning. 10/16/19 24 Discontinued documented as of this encounter (statuses as of 12/03/2023) Active Problems Problem Noted Date Diagnosed Date [...] as of this encounter (statuses as of 12/03/2023) Resolved Problems Problem Noted Date Diagnosed Date Resolved Date Chronic kidney disease, stage 3b 03/17/2022 05/21/2023 Overview: Per CKD protocol Type 2 diabetes mellitus wit h stage 3b chronic kidney disease, without long-term current use of insulin 07/26/2021 03/20/2022 Overview: Per CKD protocol documented as of this encounter (statuses as of 12/03/2023) Immunizations Name Administration Dates Next Due COVID-19 [...] Telephone Encounter - Dalila Bauman MD - 09/04/2023 12:26 PM EST Please nery hosp f/u appt in order to sign any HH orders. DC summary pending * Telephone Encounter - Grace Sidhu OSA - 09/03/2023 4:00 PM EST [facility] is wondering if PCP will continue to write orders for pt while at home for the home health referral provided. documented in this encounter Plan of Treatment Upcoming Encounters Date Type Department Care Team (Late st Contact Info) Description 12/08/2023 2:30 PM EDT Office Visit Hematology/Oncology [facility] [address] [facility] [place] [address] Erin Tony CRNP [address] [place] [address] [place] [address] 12/29/2023 1:00 PM EDT PulmDiagnostic Pulmonary Function Lab, [facility] [address] [facility] [place] [address] [place], [address] [facility] [place] [address] 01/05/2024 4:00 PM EDT Office Visit Cardiology, [facility] [address] [facility] [place] [address] Wiliam Schroeder MD 132 [facility] [place] [address] 01/13/2024 1:00 PM EDT Office Visit Nephrology, [facility] [address] [place] [address] Cornel Smith MD [address] [facility] [place] [address] 02/04/2024 2:20 PM EDT Office Visit Sleep Disorders Ctr [facility] [address] [place] [address] Kayleen Stephens DO [address] [place] [address] 02/26/2024 1:00 PM EDT Office Visit [facility] [address] [facility] [place] [address] Dalila Bauman MD [address] [place] [address] Health Maintenance Due Date Last Done Comments [...] 10/08/2023, 09/03, 12/19/2022, Additional history exists Hgb 11/25/2024 11/26/2023, 10/04, 05/04/2023, Additional history exists VITAMIN D LEVEL ONCE IN A LIFETIME-USE SMARTSET# [id number] Completed 09/16/2023, 12/19/2022, 03/25/2022, Additional history exists [...] this encounter Medical Devices Implanted Type Area Healthcare Sales Representative Device Identifier Shelf Expiration Date Model / Serial / Lot Lens Intraoc 25.0 - [id number] - [id number] Implanted:Qty: 1 on 09/03/2021 by Deon Griffin MD at OR [facility] Left: Eye [employer] 10/02/2025 [id number] / [id number] / [id number] Lens Intraoc 26.0 - [id number] - [id number] Implanted:Qty: 1 on 09/17/2021 by Deon Griffin MD at OR [facility] Right: Eye [employer] 10/03/2025 [id number] / [id number] / [id number] documented as of this encounter Advance Directives Healthcare Agents on File Name Relationship Healthcare Agent [facility] p Communication Nancy Hopkisn Adult Child Health Care R epresentative (appointed verbally by patient or by statute hierarchy) Care Teams Color Maker Relationship Specialty Start Date End Date Dalila Bauman MD 200 [place] [address] PCP - General Internal Medicine 01/09/21 documented as of this encounter
--- OUTSIDE RECORDS SUMMARY | 2023-12-06 17:47 | External Medical Summary ---
Author Name Unknown Address Unknown Organization K01:[facility] - [address] [facility] [address] [place] [address] Laboratory Report Ordering Provider Test Date Status SHADI FELIX 11/26/2023 11:54:55 Final Observation Date Value Abnormality Reference (Units ) Status IgG 11/26/2023 11:54:55 [phone] ( mg/dL) Final IgA 11/26/2023 11:54:55 147 70-400 (mg /dL) Final IgM 11/26/2023 11:54:55 86 40-230 (mg /dL) Final Performing Location [facility] - [address] [place] [address]
--- OUTSIDE RECORDS SUMMARY | 2023-12-06 17:47 | External Medical Summary ---
Author Name Unknown Address Unknown Organization K09:[facility] [place] [facility] - [address] [place] [address] Laboratory Report Ordering Provider Test Date Status SHADI FELIX 11/26/2023 11:54:55 Final Observation Date Value Abnormality Reference (Units ) Status BUN 11/26/2023 11:54:55 30 Above high normal 6-20 (mg/dL) Final Creatinine 11/26/2023 11:54:55 1.4 Above high normal 0.5-1.0 (mg/dL) Final Glomerular filtration rate/1.73 sq M.predicted [Volume Rate/Area] in Serum, Plasma or Blood by Creatinine-based formula (CKD-EPI) 11/26/2023 11:54:55 35 Below low normal >=60 (mL/min) Final eGFR is calculated based on the CKD-EPI 2020 equation Sodium 11/26/2023 11:54:55 141 135-146 (m mol/L) Final Potassium 11/26/2023 11:54:55 3.8 3.5-5.1 (m mol/L) Final Cl 11/26/2023 11:54:55 100 98-107 (mm ol/L) Final CO2 11/26/2023 11:54:55 26 22-32 (mmo l/L) Final Anion gap 11/26/2023 11:54:55 15 7-15 (mmol /L) Final Glucose 11/26/2023 11:54:55 125 Above high normal 70 -120 (mg/dL) Final Albumin 11/26/2023 11:54:55 3.9 3.8-5.0 (g /dL) Final AST (Aspartate aminotransferase) 11/26/2023 11:54:55 24 10-35 (U/L) Fin al Alk Phos 11/26/2023 11:54:55 41 35-130 (U/ L) Final Bilirubin, Total 11/26/2023 11:54:55 0.3 <=1 .2 (mg/dL) Final Calcium 11/26/2023 11:54:55 9.8 8.4-10.2 ( mg/dL) Final Protein 11/26/2023 11:54:55 7.5 6.0-8.3 (g /dL) Final ALT (Alanine aminotransferase) 11/26/2023 11:54:55 18 10-35 (U/L) Agustin starks Performing Location [facility] [place] [address] [place] [address]
--- OUTSIDE RECORDS SUMMARY | 2023-12-06 17:47 | External Medical Summary | Summary of Care ---
Author Name Unknown Organization [facility] Address [address] [facility] [address] Phone [phone] Care Team Providers Care Maintenance Data Analyst Name Role Phone Dalila Bauman MD Primary Care Provider [phone] Reason for Visit * Reason Onset Date Comments Medication Refill 12/03/2023 Encounter Details Date Type Department Care Team (Late st Contact Info) Description 12/03/2023 Refill General Internal Medicine [facility] [place] 200 [facility] [place] [address] Dalila [facility]uman MD [facility] [address] Renal artery stenosis (HCC); Carotid stenosis, asymptomatic, right; Dyslipidemia, goal LDL below 70 Allergies Active Allergy Reactions Criticality Noted Date [...] 3 times daily. DX: E11.9. 1 Kit 07/15/2021 Active FreeStyle Jimmy 2 SensorIndications: Type 2 diabetes mellitus with hemoglobin A1c goal of less than 8.0% (HCC) Use as directed every 14 days . Change every 14 weeks 2 Each 08/23/2021 Active Acetaminophen 500 MG Oral Tablet (Tylenol) Take by mouth 2 Tablets every 8 hours as needed for Pain, Moderate. STOP ibuprofen 09/13/2021 100 Tablet 09/13/2021 Active Additional Information Patient taking differently:1,000 [...] 10/13/2022 Active CoQ10 200 MG Oral Capsule Active Repaglinide 2 MG Oral Tablet (Prandin)Indicatio ns:Type 2 diabetes mellitus with hemoglobin A1c goal of less than 8.0% (HCC) take 1 tablet by mouth three times a day BEFORE MEALS Strength: 2 mg 270 Tablet 3 2023 Active Melatonin ER 1 MG Oral Tablet [...] use of insulin ([facility]) Take 1 Tablet by mouth in the morning and 1 Tablet at noon and 1 Tablet before bedtime. 270 Tablet 3 06/08/2023 Active Empagliflozin 25 MG Oral Tablet (Jardiance)Indicat ions:Type 2 diabetes mellitus with stage 3b chronic kidney disease, without long-term current use of insulin ([facility]) Take 1 Tablet by mouth in the morning. 90 Tablet 3 06/08/2023 Active Prodigy Lancets 28GIndications:Typ e 2 diabetes mellitus with hemoglobin A1c goal of less than 8.0% ([facility]) Use to test blood glucose 3 times daily. DX: E11.9 300 Each 3 07/02/2023 Active Magnesium Chloride 64 MG Oral Tablet Take by mouth daily. Active Tresiba FlexTouch 100 UNIT/ML Subcutaneous Solution Pen-injector (Insulin Degludec)Indicatio ns:Type 2 diabetes mellitus with stage 3b chronic kidney disease, without long-term current use of insulin ([facility]),Type 2 diabetes mellitus with hemoglobin A1c goal of less than 8.0% ([facility]) Inject 30 Units under the skin in the morning. 09/16/2023 Active Carvedilol 25 MG Oral Tablet (Coreg) Take 1.5 Tablets by mouth 2 times a day with morning and evening meals. 270 Tablet 1 10/03/2023 Active Potassium Chloride Denise ER 20 MEQ Oral Tablet Extended ReleaseIndications :Diastolic CHF with preserved left ventricular function, NYHA class 2 ([facility]),Hypokalemia Take 1 Tablet by mouth in the morning. 90 Tablet 1 10/10/2023 Active Furosemide 40 MG Oral Tablet (Lasix) Take 1 Tablet by mouth every other day. And as directed for edema 60 Tablet 13 10/14/2023 Active Additional Information Patient taking differently:40 mg OralDaily(AM), And as directed for edema, Reported on 11/20/2023 amLODIPine Besylate 10 MG Oral Tablet (Norvasc) Take 1 Tablet by mouth in the morning. 90 Tablet 1 10/16/2023 Active Droplet Pen [place] 32G X 6 MM (NOVOFINE 32G PEN NEEDLE)Indications :Type 2 diabetes mellitus with hemoglobin A1c goal of less than 8.0% (HCC) USE WITH LANTUS DAILY 100 Each 1 10/16/2023 Active Ferrous Sulfate 325 (65 Fe) MG Oral Tablet Delayed Release Take 1 Tablet by mouth. 11/09/2023 Active Folic Acid 1 MG Oral Tablet Take 1 Tablet by mouth in the morning. 11/09/2023 Active DIURETIC TITRATION PLANIndications:Di astolic CHF with preserved left ventricular function, NYHA class 2 (HCC) If no improvement on day 3, contact heart failure managing provider. 1 Each 11/20/2023 Active Vitamin B12 500 MCG Oral TabletIndications: Anemia, unspecified type one pill each day at [facility] 11/09/23 11/23/2023 Active Sertraline HCl 50 MG Oral Tablet (Zoloft)Indication s:Adjustment disorder with anxious mood Take 1 Tablet by mouth in the morning. -take with food; Inc at [place] 09/07/23. 90 Tablet 11/23/2023 Active Atorvastatin Calcium 80 MG Oral Tablet (Lipitor)Indicatio ns:Renal artery stenosis (HCC),Carotid stenosis, asymptomatic, right,Dyslipidemia , goal LDL below 70 Take 1 Tablet by mouth in the morning. 90 Tablet 3 12/03/2023 Active Atorvastatin Calcium 80 MG Oral Tablet (Lipitor)Indicatio ns:Renal artery stenosis (HCC),Carotid stenosis, asymptomatic, right,Dyslipidemia , goal LDL below 70 take 1 tablet by mouth at bedtime INCREASE 11/13/2021 90 Tablet 2 04/13/2023 Discontinue d(Refill) documented as of this encounter [...] Telephone Encounter - Dalila Bauman MD - 12/03/2023 12:42 PM EDTSigned Prescriptions: Disp Refills Atorvastatin Calcium 80 MG Oral Tablet (Li*90 Tab*3 Sig: Take 1 Tablet by mouth in the morning. Authorizing Provider: DALILA BAUMAN * Telephone Encounter - Ayala Kline LPN - 12/03/2023 12:18 PM EDT Pending Prescriptions: Disp Refills Atorvastatin Calcium 80 MG Oral Tablet (L*90 Tab*2 Sig: Take 1 Tablet by mouth in the morning. Last Visit: 11/23/2023 (in office), Visit date not found (telemedicine) Next Visit: 02/26/2024 Last date the medication was ordered: 04/13/23 Patient Active Problem List Diagnosis Type 2 diabetes mellitus with hemoglobin A1c goal of less than 8.0% (HCC) HTN, goal below 150/90 Dyslipidemia, goal LDL below 70 Adjustment disorder with anxious mood B12 deficiency History of 2019 novel coronavirus disease (COVID-19) S/P bilateral cataract extraction Renal artery stenosis (HCC) Carotid stenosis, asymptomatic, right FHH (familial hypocalciuric hypercalcemia) Type 2 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 disease, with long-term current use of insulin(HCC) Senile osteoporosis MGUS (monoclonal gammopathy of unknown significance) Hypertensive heart disease with chronic diastolic congestive heart failure ([facility]) Chronic kidney disease, stage 4 (severe) ([facility]) Labs: Lab Results Component Value Date/Time CREATININE - [facility] 1.4 (H) 11/26/2023 11:54 AM CREATININE, RANDOM URINE - [facility] 62 10/08/2023 11:27 AM CREATININE-OUTSIDE LAB 1.25 (A) 10/31/2021 12:00 AM CREATININE-OUTSIDE LAB 1.90 (A) 10/31/2021 12:00 AM Lab Results Component Value Date/Time POTASSIUM - [facility] 3.8 11/26/2023 11:54 AM POTASSIUM-OUTSIDE LAB 4.1 10/31/2021 12:00 AM POTASSIUM-OUTSIDE [...] Results Component Value Date/Time ALT - [facility] 18 11/26/2023 11:54 AM Hemoglobin AIC Results: Lab Results Component Value [...] 12/08/2023 2:30 PM EDT Office Visit [facility]ology[facility] [place] [address] [place] [id number] rEin Tony CRNP [address] [facility] [place] [address] 12/29/2023 1:00 PM EDT PulmDiagnostic Pulmonary Function Lab, [facility] [address] [place] [address] [place], [address] [place] [address] 01/05/2024 4:00 PM EDT Office Visit Cardiology, [facility] [address] [place] [address] Wiliam Schroeder MD [address] [place] [address] 01/13/2024 1:00 PM EDT Office Visit Nephrology, [facility] [address] [place] [address] Cornel Smith MD [facility] [place] [address] 02/04/2024 2:20 PM EDT Office Visit Sleep Disorders Ctr [facility] [address] [place] [phone] Kayleen Stephens DO [address] [place] [address] 02/26/2024 1:00 PM EDT Office Visit General Internal Medicine [facility] [address] [place] [address] Dalila Bauman MD [address] [place] [address] Health Maintenance Due Date Last Done Comments [...] D LEVEL ONCE IN A LIFETIME-USE SMARTSET# [id number] Completed 09/16/2023, 12/19/2022, 03/25/2022, Additional history exists [...] this encounter Medical Devices Implanted Type Area Retail Sales Merchandiser Device Identifier Shelf Expiration Date Model / Serial / Lot Lens Intraoc 25.0 - [id number] - [id number] Implanted:Qty: 1 on 09/03/2021 by Deon Griffin MD at OR [facility] Left: Eye [employer] 10/02/2025 [id number] / [id number] / [id number] Lens Intraoc 26.0 - [id number] - [id number] Implanted:Qty: 1 on 09/17/2021 by Deon Griffin MD at OR [facility] Right: Eye [employer] 10/03/2025 [id number] / [id number] / [id number] documented as of this encounter Visit Diagnoses Diagnosis Renal artery stenosis (HCC) Atherosclerosis of renal artery Carotid stenosis, asymptomatic, right Dyslipidemia, goal LDL below 70 Other and unspecified hyperlipidemia documented in this encounter Advance Directives Healthcare Agents on File Name Relationship Healthcare Agent Relationshi p Communication [facility] Adult Child Health Care R epresentative (appointed verbally by patient or by statute hierarchy) Care Teams Maintenance Data Analyst Relationship Specialty Start Date End Date Dalila Bauman MD 200 [place] [address] PCP - General Internal Medicine 01/09/21 documented as of this encounter
--- OUTSIDE RECORDS SUMMARY | 2023-12-06 17:47 | External Medical Summary | Summary of Care ---
Author Name Unknown Organization [facility] Address [address] [facility] [address] Phone [phone] Care Team Providers Care Fixer Supervisor Name Role Phone Dalila Bauman MD Primary Care Provider Reason for Visit * Reason Onset Date Comments Medication Refill 12/03/2023 Encounter Details Date Type Department Care Team (Late st Contact Info) Description 12/03/2023 Refill Cardiology, [facility] [address] [place] [address] Charles Coats PA-C [address] [place] [address] HTN, goal below 150/90; Type 2 diabetes mellitus with stage 3b chronic kidney disease, without long-term current use of insulin ([facility]) Allergies Active Allergy Reactions Criticality Noted Date [...] the morning. 100 Tab 3 01/09/2021 Active eGenerations Voice Blood Glucose w/Device KitIndications:Typ e 2 [...] at bedtime 90 Tablet 3 05/26/2023 Active Empagliflozin 25 MG Oral Tablet (Jardiance)Indicat ions:Type 2 diabetes mellitus with stage 3b chronic kidney disease, without long-term current use of insulin ([facility]) Take 1 Tablet by mouth in [...] 90 Tablet 1 10/16/2023 Active Droplet Pen Ethel 32G X 6 MM (NOVOFINE 32G PEN NEEDLE)Indications :Type 2 diabetes mellitus with hemoglobin A1c goal of less than 8.0% ([facility]) USE WITH LANTUS DAILY 100 Each [...] unspecified type one pill each day at [facility] 11/09/23 11/23/2023 Active Sertraline HCl 50 MG Oral Tablet (Zoloft)Indication s:Adjustment disorder with anxious mood Take 1 Tablet by mouth in the morning. -take with food; Inc at [place] 09/07/23. 90 Tablet 11/23/2023 Active hydrALAZINE HCl 100 MG Oral TabletIndications: HTN, goal below 150/90,Type 2 diabetes mellitus with stage 3b chronic kidney disease, without long-term current use of insulin (HCC) Take 1 Tablet by mouth in the morning and 1 Tablet at noon and 1 Tablet before bedtime. 270 Tablet 3 12/03/2023 Active hydrALAZINE HCl 100 MG Oral TabletIndications: HTN, goal below 150/90,Type 2 diabetes mellitus with stage 3b chronic kidney disease, without long-term current use of insulin (HCC) Take 1 Tablet by mouth in the morning and 1 Tablet at noon and 1 Tablet before bedtime. 270 Tablet 3 06/08/2023 Discontinue d(Refill) documented as of this encounter [...] Telephone Encounter - Charles Coats PA-C - 12/03/2023 1:43 PM EDT Signed Prescriptions: Disp Refills hydrALAZINE HCl 100 MG Oral Tablet 270 Ta*3 Sig: Take 1 Tablet by mouth in the morning and 1 Tablet at noon and 1 Tablet before bedtime. Authorizing Provider: CHARLES COATS * Telephone Encounter - Ayala Kline LPN - 12/03/2023 12:21 PM EDT Pending Prescriptions: Disp Refills hydrALAZINE HCl 100 MG Oral Tablet 270 Ta*3 Sig: Take 1 Tablet by mouth in the morning and 1 Tablet at noon and 1 Tablet before bedtime. Last Visit: 10/14/2023 (in office), Visit date not found (telemedicine) Next Visit: 01/05/2024 Last date the medication was ordered: 06/08/23 Patient Active Problem List Diagnosis Type 2 diabetes mellitus with hemoglobin A1c goal of less than 8.0% ([facility]) HTN, goal below 150/90 Dyslipidemia, goal [...] with chronic diastolic congestive heart failure (HCC) Chronic kidney disease, stage 4 (severe) ([facility]) Labs: Lab Results Component Value Date/Time CREATININE [...] 12/08/2023 2:30 PM EDT Office Visit Hematology/Oncology [facility] [place] [address] [place] [address] [place] [phone] Erin Tony CRNP [address] [place] [address] 12/29/2023 1:00 PM EDT PulmDiagnostic Pulmonary Function Lab, [facility] [address] [place] [address] [address], [address] [place] [address] 01/05/2024 4:00 PM EDT Office Visit Cardiology, [facility] [address] [place] [address] Wiliam Schroeder MD [address] [place] [address] 01/13/2024 1:00 PM EDT Office Visit Nephrology, [facility] [address] [place] [address] [address] Cornel Smith MD 200 [facility] [place] [address] 02/04/2024 2:20 PM EDT Office Visit Sleep Disorders Ctr [facility] [address] [place] [phone] Kayleen Stephens DO [address] [place] [address] 02/26/2024 1:00 PM EDT Office Visit General Internal Medicine [facility] [address] [place] [address] Dalila Bauman MD 200 [facility] [place] [address] Health Maintenance Due Date Last Done Comments [...] D LEVEL ONCE IN A LIFETIME-USE SMARTSET# [id number] Completed 09/16/2023, 12/19/2022, 03/25/2022, Additional history exists [...] this encounter Medical Devices Implanted Type Area Recreation Counselor Device Identifier Shelf Expiration Date Model / Serial / Lot Lens Intraoc 25.0 - [id number] - [id number] Implanted:Qty: 1 on 09/03/2021 by Deon Griffin MD at OR [facility] Left: Eye [employer] LOMB 10/02/2025 [id number] / [id number] / [id number] Lens Intraoc 26.0 - [id number] - [id number] Implanted:Qty: 1 on 09/17/2021 by Deon Griffin MD at OR [facility] Right: Eye BAUSCH [employer] LOMB 10/03/2025 [id number] / [id number] / [id number] documented as of this encounter Visit Diagnoses Diagnosis HTN, goal below 150/90 Type 2 diabetes mellitus with stage 3b chronic kidney disease, without long-term current use of insulin (HCC) documented in this encounter Advance Directives Healthcare Agents on File Name Relationship Healthcare Agent [facility] p Communication Nancy [facility] R epresentative (appointed verbally by patient or by statute hierarchy) Care Teams Fixer Supervisor Relationship Specialty Start Date End Date Dalila Bauman MD [address] [place] [address] PCP - General Internal Medicine 01/09/21 documented as of this encounter
--- OUTSIDE RECORDS SUMMARY | 2023-12-06 17:48 | External Medical Summary ---
Author Name Unknown Address Unknown Organization K09:[facility] [address] Laboratory Report Ordering Provider Test Date Status SHADI FELIX 11/26/2023 11:54:55 Final Observation Date Value Abnormality Reference (Units ) Status SYNC LEUKOCYTES IN BLOOD BY AUTOMATED COUNT 11/26/2023 11:54:55 6.16 4.00-10.80 (K/uL) Final Segs 11/26/2023 11:54:55 57.2 40.0-75.0 (%) Final Lymphs % 11/26/2023 11:54:55 28.7 18.0-42.0 (%) Final Monos 11/26/2023 11:54:55 12.0 Above high normal 1.0-11.0 (%) Final Eosinophils 11/26/2023 11:54:55 1.6 0.0-6.0 (%) Final Basos 11/26/2023 11:54:55 0.5 0.0-2.0 (%) Final Absolute Segs 11/26/2023 11:54:55 3.52 1.80-7.70 (K/uL) Final Lymphs, absolute 11/26/2023 11:54:55 1.77 1.00-4.80 (K/ul) Final Monos, Abs 11/26/2023 11:54:55 0.74 0.00-1.10 (K/uL) Final Eos, Abs 11/26/2023 11:54:55 0.10 0.00-0.70 (K/uL) Final Basos, Abs 11/26/2023 11:54:55 0.03 0.00-0.20 (K/uL) Final Performing Location [facility] [place] [address]
--- OUTSIDE RECORDS SUMMARY | 2023-12-06 17:48 | External Medical Summary | Summary of Care ---
Author Name Unknown Organization [facility] Address [address] [facility] [address] Phone [phone] Care Team Providers Care Girls Swimming Coach Name Role Phone Dalila Bauman MD Primary Care Provider [phone] Reason for Visit * Reason Onset Date Comments case management 11/24/2023 Encounter Details Date Type Department Care Team (Late st Contact Info) Description 11/24/2023 Telephone General Internal Medicine [facility] [place] [address] [facility] [place] [address] Dalila Bauman MD 200 [place] [address] case management Allergies Active Allergy Reactions Criticality Noted Date Comments Latex 01/09/2021 Penicillins 01/09/2021 Sulfa Antibiotics 01/09/2021 documented as of this encounter (statuses as of 11/25/2023) Medications Medication Sig Dispensed Refills Start Date [...] 1 Kit 07/15/2021 Active FreeStyle Jimmy 2 SensorIndications:T ype [...] Capsule Active Repaglinide 2 MG Oral Tablet (Prandin)Indication [...] disease, without long-term current use of insulin ([facility]) Take 1 Tablet by mouth in the morning and 1 Tablet at noon and 1 Tablet before bedtime. 270 Tablet 3 06/08/2023 Active Empagliflozin 25 MG Oral Tablet (Jardiance)Indicati ons:Type 2 diabetes mellitus with stage 3b chronic kidney disease, without long-term current use of insulin ([facility]) Take 1 Tablet by mouth in the morning. 90 Tablet 3 06/08/2023 Active Prodigy Lancets 28GIndications:Type 2 diabetes mellitus with hemoglobin A1c goal of less than 8.0% ([facility]) Use to test blood glucose 3 times daily. DX: E11.9 300 Each 3 07/02/2023 Active Magnesium Chloride 64 MG Oral Tablet Take by mouth daily. Active Tresiba FlexTouch 100 UNIT/ML Subcutaneous Solution Pen-injector (Insulin Degludec)Indication s:Type 2 diabetes mellitus with stage 3b chronic kidney disease, without long-term current use of insulin ([facility]),Type 2 diabetes mellitus with hemoglobin A1c goal of less than 8.0% ([facility]) Inject 30 Units under the skin in the morning. 09/16/2023 Active Carvedilol 25 MG Oral Tablet (Coreg) Take 1.5 Tablets by mouth 2 times a day with morning and evening meals. 270 Tablet 1 10/03/2023 Active Potassium Chloride Denise ER 20 MEQ Oral Tablet Extended ReleaseIndications: Diastolic CHF with preserved left ventricular function, NYHA class 2 ([facility]),Hypokalemia Take 1 Tablet by mouth in [...] 90 Tablet 1 10/16/2023 Active Droplet Pen [place] 32G X 6 MM (NOVOFINE 32G PEN NEEDLE)Indications: Type 2 diabetes mellitus with hemoglobin A1c goal of less than 8.0% ([facility]) USE WITH LANTUS DAILY 100 Each 1 10/16/2023 Active Ferrous Sulfate 325 (65 Fe) MG Oral Tablet Delayed Release Take 1 Tablet by mouth. 11/09/2023 Active Folic Acid 1 MG Oral Tablet Take 1 Tablet by mouth in the morning. 11/09/2023 Active DIURETIC TITRATION PLANIndications:Nessa stolic CHF with preserved left ventricular function, NYHA class 2 ([facility]) If no improvement on day 3, contact heart failure managing provider. 1 Each 11/20/2023 Active Vitamin B12 500 MCG Oral TabletIndications:A nemia, unspecified type one pill each day at [facility] 11/09/23 11/23/2023 Active Sertraline HCl 50 MG Oral Tablet (Zoloft)Indications :Adjustment disorder with anxious mood Take 1 Tablet by mouth in the morning. -take with food; Inc at [place] 09/07/23. 90 Tablet 11/23/2023 Active documented as of this encounter (statuses as of 11/25/2023) Active Problems Problem Noted Date Diagnosed Date [...] as of this encounter (statuses as of 11/25/2023) Resolved Problems Problem Noted Date Diagnosed Date Resolved Date Chronic kidney disease, stage 3b 03/17/2022 05/21/2023 Overview: Per CKD protocol Type 2 diabetes mellitus wit h stage 3b chronic kidney disease, without long-term current use of insulin 07/26/2021 03/20/2022 Overview: Per CKD protocol documented as of this encounter (statuses as of 11/25/2023) Immunizations Name Administration Dates Next Due COVID-19 [...] encounter Miscellaneous Notes * Telephone Encounter - Patricio Oviedo OSA - 11/25/2023 3:51 PM EDT Pt is already nery'd on 12/28 at . * Telephone Encounter - Mago Luis RN - 11/24/2023 1:42 PM EDT Patient needs to have six minute walk test done at [facility]. There is no documentation in [facility] that it was done during her last hospital admission. This manager case called and spoke with Medical Records, and there was no testing in record. Patient will need to be scheduled at [facility] for the 6 minute walk test. Scheduling: please call patient to schedule six minute walk test at [facility]. Thank you! documented in this encounter Plan of Treatment Upcoming Encounters Date Type Department Care Team (Late st Contact Info) Description 11/26/2023 7:05 AM EDT Laboratory Lab Mobile Phlebotomy [facility] [address] [place] [address] [facility], [facility] Mobile [facility] Draw [address] [place] [address] 12/08/2023 2:30 PM EDT Office Visit Hematology/Oncology [facility] [address] [place] [address] [address] [phone] Erin Tony CRNP [address] [place] [address] 12/29/2023 1:00 PM EDT PulmDiagnostic Pulmonary Function Lab, [facility] 132 [facility] [place] [address] [place], [address] 132 [facility] [place] [address] 01/05/2024 4:00 PM EDT Office Visit Cardiology, [facility] 132 [facility] [place] [address] Wiliam Schroeder MD 132 [facility] [place] [address] 01/13/2024 1:00 PM EDT Office Visit Nephrology, [facility] 200 [facility] [place] [address] Cornel Smith MD 200 [facility] [place] [address] 02/04/2024 2:20 PM EDT Office Visit Sleep Disorders Ctr [facility] 132 [facility] [place] [phone] Kayleen Stephens DO 132 [facility] [place] [address] 02/26/2024 1:00 PM EDT Office Visit General Internal Medicine [facility] 200 [facility] [place] [address] Dalila Bauman MD 200 [facility] [place] [address] Health Maintenance Due Date Last Done Comments [...] D LEVEL ONCE IN A LIFETIME-USE SMARTSET# 50161 Completed 09/16/2023, 12/19/2022, 03/25/2022, Additional history exists [...] this encounter Medical Devices Implanted Type Area City Clerk Device Identifier Shelf Expiration Date Model / Serial / Lot Lens Intraoc 25.0 - [id number] - [id number] Implanted:Qty: 1 on 09/03/2021 by Deon Griffin MD at [facility] Left: Eye [employer]CH [employer] LOMB 10/02/2025 [id number] / [id number] / [id number] Lens Intraoc 26.0 - [id number] - [id number] Implanted:Qty: 1 on 09/17/2021 by Deon Griffin MD at [facility] Right: Eye BAUSCH [employer] LOMB 10/03/2025 [id number] / [id number] / [id number] documented as of this encounter Advance Directives Healthcare Agents on File Name Relationship Healthcare Agent Relationsnd p Communication Nancy [facility] Adult Child Health Care R epresentative (appointed verbally by patient or by statute hierarchy) Care Teams Girls Swimming Coach Relationship Specialty Start Date End Date Dalila Bauman MD 200 [place] [address] PCP - General Internal Medicine 01/09/21 documented as of this encounter
--- OUTSIDE RECORDS SUMMARY | 2023-12-06 17:48 | External Medical Summary ---
Author Name Unknown Address Unknown Organization K09:[facility] [place] [address] Laboratory Report Ordering Provider Test Date Status SHADI FELIX 11/26/2023 11:54:55 Final Observation Date Value Abnormality Reference (Units ) Status WBC, Total 11/26/2023 11:54:55 6.16 4.00-10.8 0 (K/uL) Final RBC 11/26/2023 11:54:55 3.14 3.85-5.15 (M/uL) Final Hemoglobin 11/26/2023 11:54:55 9.6 Below low normal 12 .0-15.3 (g/dL) Final HCT 11/26/2023 11:54:55 31.1 Below low normal 36. 0-45.2 (%) Final MCV 11/26/2023 11:54:55 99.0 81.5-97.5 (fL) Final MCH 11/26/2023 11:54:55 30.6 27.0-34.0 (pg) Final MCHC 11/26/2023 11:54:55 30.9 32.0-36.0 (g/dL) Final RDW 11/26/2023 11:54:55 15.3 11.5-15.5 (%) Final Platelets 11/26/2023 11:54:55 299 140-400 (K /uL) Final MPV 11/26/2023 11:54:55 9.6 6.6-11.1 ( fL) Final Performing Location [facility] [place] [address]
--- OUTSIDE RECORDS SUMMARY | 2023-12-06 17:48 | External Medical Summary ---
Author Name Unknown Address Unknown Organization K01:[facility] [address] [place] [address] Laboratory Report Ordering Provider Test Date Status SHADI FELIX 11/26/2023 11:54:55 Final Observation Date Value Abnormality Reference (Units ) Status [place] light chains, Free, Serum 11/26/2023 11:54:55 60.99 Above high normal 3.30-19.40 (mg/L) Final Lambda light chains, free, Serum 11/26/2023 11:54:55 31.49 Above high normal 5.71-26.30 (mg/L) Final KAPPA LAMBDA [facility] RATIO 11/26/2023 11:54:55 1.94 Above high normal 0.26-1.65 Final Performing Location [facility] [address] [place] [address]
--- OUTSIDE RECORDS SUMMARY | 2023-12-06 17:48 | External Medical Summary | Summary of Care ---
Author Name Unknown Organization [facility] Address [address] [facility] [address] Phone [phone] Care Team Providers Care Couples Therapist Name Role Phone Dalila Bauman MD Primary Care Provider [phone] Reason for Visit * Reason Onset Date Comments Hospital Follow-Up 11/09/2023 Encounter Details Date Type Department Care Team (Late st Contact Info) Description 11/09/2023 Telephone General Internal Medicine [facility] [place] 200 [facility] [place] [address] Dalila [facility]uman MD 200 [facility] [address] Hospital Follow-Up Allergies Active Allergy Reactions Criticality Noted Date [...] hemoglobin A1c goal of less than 8.0% ([facility]) Use to test blood glucose 3 times daily. DX: E11.9 300 Each 3 07/02/2023 Active Magnesium Chloride 64 MG Oral Tablet Take by mouth daily. Active Tresiba FlexTouch 100 UNIT/ML Subcutaneous Solution Pen-injector (Insulin Degludec)Indicatio ns:Type 2 diabetes mellitus with stage 3b chronic kidney disease, without long-term current use of insulin ([facility]),Type 2 diabetes mellitus with hemoglobin A1c goal of less than 8.0% ([facility]) Inject 30 Units under the skin [...] 90 Tablet 1 10/16/2023 Active Droplet Pen [place] 32G X 6 MM (NOVOFINE 32G PEN NEEDLE)Indications :Type 2 diabetes mellitus with hemoglobin A1c goal of less than 8.0% (HCC) USE WITH LANTUS DAILY 100 Each 1 10/16/2023 Active Sertraline HCl 50 MG Oral Tablet (Zoloft)Indication s:Adjustment disorder with anxious mood Take 1 Tablet by mouth in the morning. Inc at [place] 09/07/23. 09/16/2023 Discontinue d(Refill) documented as of this encounter [...] encounter Miscellaneous Notes * Telephone Encounter - Thor Chen OSA - 11/25/2023 12:15 PM EDT Pt seen 11/23/23 * Telephone Encounter - Vern Acosta OSA - 11/19/2023 3:17 PM EDT Patient calling in requesting to reschedule her hospital discharge appointment. She is requesting an afternoon appointment. Please advise. * Telephone Encounter - Noemi Cantor LPN - 11/10/2023 1:16 PM EDT Discharge paperwork and lab results were printed off and placed on Dr. Bauman's desk as requested. * Telephone Encounter - Dalila Bauman MD - 11/09/2023 5:00 PM EDT [facility] Await Dc summary Pl call med records for all labs done this admission * Telephone Encounter - Jeffery Fuentes RN - 11/09/2023 2:19 PM EDT Patient discharged from [facility] 11/09/23. Patient has hospital follow up appointment with Dr Bauman on 11/12/23. Patient/daughter concerned about patient requiring oxygen during the day and with ambulation. A 2-step test was performed while inpatient and patient passed, NOT requiring oxygen with ambulation. Patient/daughter would like an ambulatory oxygen test repeated in the near future. Thank you documented in this encounter Plan of Treatment Upcoming Encounters Date Type Department Care Team (Late st Contact Info) Description 11/26/2023 7:05 AM EDT Laboratory Lab Mobile Phlebotomy [facility] [address] [facility] [place], [place] [id number] Anika, Gml Mobile Home Draw [address] [place], [place] [address] 12/08/2023 2:30 PM EDT Office Visit Hematology/Oncology [facility] [address] [place] [phone] Erin Tony, SOURCING COORDINATOR [address] [place] [address] 12/29/2023 1:00 PM EDT PulmDiagnostic Pulmonary Function Lab, [facility] [address] [place] [address] [place], [address] [facility] [place] [address] 01/05/2024 4:00 PM EDT Office Visit Cardiology, [facility] [address] [place] [address] Wiliam Schroeder MD [address] [place] [address] 01/13/2024 1:00 PM EDT Office Visit Nephrology, [facility] [place] [address] Cornel Smith MD 200 [facility] [place] [address] 02/04/2024 2:20 PM EDT Office Visit [facility] Disorders Ctr [facility] [address] [place] [phone] Kayleen Stephens DO [address] [place] [address] 02/26/2024 1:00 PM EDT Office Visit General Internal Medicine [facility] [address] [facility] [place] [address] Dalila Bauman MD [address] [facility] [place] [address] Health Maintenance Due Date Last Done Comments [...] D LEVEL ONCE IN A LIFETIME-USE SMARTSET# [id number] Completed 09/16/2023, 12/19/2022, 03/25/2022, Additional history exists [...] this encounter Medical Devices Implanted Type Area Executive Asst Device Identifier Shelf Expiration Date Model / Serial / Lot Lens Intraoc 25.0 - [id number] - [id number] Implanted:Qty: 1 on 09/03/2021 by Deon Griffin MD at OR [facility] Left: Eye BAUSCH [employer] LOMB 10/02/2025 [id number] / [id number] / [id number] Lens Intraoc 26.0 - [id number] - [id number] Implanted:Qty: 1 on 09/17/2021 by Deon Griffin MD at OR [facility] Right: Eye BAUSCH & LOMB 10/03/2025 [id number] / [id number] / [id number] documented as of this encounter Advance Directives Healthcare Agents on File Name Relationship Healthcare Agent [facility] p Communication Nancy [facility] Child Health Care R epresentative (appointed verbally by patient or by statute hierarchy) Care Teams Couples Therapist Relationship Specialty Start Date End Date Dalila Bauman MD 200 [facility] [address] PCP - General Internal Medicine 01/09/21 documented as of this encounter
--- OUTSIDE RECORDS SUMMARY | 2023-12-06 17:48 | External Medical Summary | Summary of Care ---
Author Name Unknown Organization [facility] Address [address] [place] [address] Phone [phone] Care Team Providers Care Help Desk Engineer Name Role Phone Dalila Bauman MD Primary Care Provider [phone] Reason for Referral * Ancillary Services (Within 10 days (routine)) - Authorized Specialty Diagnoses / Procedures Referred By Contac t Referred To Contact Oracle Applications Developer Diagnoses MGUS (monoclonal gammopathy of unknown significance) Joshua Nunez MD [address] [place] [address] Referral ID Status Reason Start Date Expiration Date Visits Requested Visits Authorized [id number] Authorized Ancillary Services Required 11/23/2023 999 999 Question Answer Referral Priority Within 10 days (routine) Where should this appointment be scheduled? Sheyla Comments Dx: MGUS (monoclonal gammopathy of unknown significance) [D47.2 (ICD-10-CM)] Comments: Is Patient homebound? Yes All sections of [...] on the next service day for the [facility] Home Phlebotomy does not service every geographical location on a daily basis. Contact [facility] Client Services at to find out service days for a specific location. Medical Laboratory [address] [place] [address] Ric Montes De Oca M.D. Director and Master Black Belt Patient Name: Ramila Urrutia : 1935 Sex: female Address [address] [place] [address] Provider: Dr Joshua Nunez Diagnosis: Tests Requested CBCd, CMP, SPEP, kappa, Ig, beta2 drawn x1 prior to 12/05/23 Encounter Details Date Type Department Care Team (Late st Contact Info) Description 11/23/2023 Orders Only Hematology/Oncology Treatment, [place] [address] [place] [address] Joshua Nunez MD [address] [place] [address] MGUS (monoclonal gammopathy of unknown significance)* Allergies Active Allergy Reactions Criticality Noted Date Comments Latex 01/09/2021 Penicillins 01/09/2021 Sulfa Antibiotics 01/09/2021 documented as of this encounter (statuses as of 11/23/2023) Medications Medication Sig Dispensed Refills Start Date End Date Status Aspirin EC 81 MG Oral Tablet Delayed ReleaseIndications: Type 2 diabetes mellitus with retinopathy of both eyes, without long-term current use of insulin, macular edema presence unspecified, unspecified retinopathy severity (HCC),Dyslipidemia, goal LDL below 100 Take 1 Tablet by mouth in the morning. 100 Tab 3 01/09/2021 Active Woop!Wear Voice Blood Glucose w/Device KitIndications:Type 2 diabetes [...] disease, without long-term current use of insulin ([facility]) Take 1 Tablet by mouth in the morning and 1 Tablet at noon and 1 Tablet before bedtime. 270 Tablet 3 06/08/2023 Active Empagliflozin 25 MG Oral Tablet (Jardiance)Indicati ons:Type 2 diabetes mellitus with stage 3b chronic kidney disease, without long-term current use of insulin ([facility]) Take 1 Tablet by mouth in the morning. 90 Tablet 3 06/08/2023 Active Prodigy Lancets 28GIndications:Type 2 diabetes mellitus with hemoglobin A1c goal of less than 8.0% ([facility]) Use to test blood glucose 3 times daily. DX: E11.9 300 Each 3 07/02/2023 Active Magnesium Chloride 64 MG Oral Tablet Take by mouth daily. Active Sertraline HCl 50 MG Oral Tablet (Zoloft)Indications :Adjustment disorder with anxious mood Take 1 Tablet by mouth in the morning. Inc at [place] 09/07/23. 09/16/2023 Active Tresiba FlexTouch 100 UNIT/ML Subcutaneous Solution Pen-injector (Insulin Degludec)Indication s:Type 2 diabetes mellitus with stage 3b chronic kidney disease, without long-term current use of insulin ([facility]),Type 2 diabetes mellitus with hemoglobin A1c goal of less than 8.0% ([facility]) Inject 30 Units under the skin in the morning. 09/16/2023 Active Carvedilol 25 MG Oral Tablet (Coreg) Take 1.5 Tablets by mouth 2 times a day with morning and evening meals. 270 Tablet 1 10/03/2023 Active Potassium Chloride Denise ER 20 MEQ Oral Tablet Extended ReleaseIndications: Diastolic CHF with preserved left ventricular function, NYHA class 2 ([facility]),Hypokalemia Take 1 Tablet by mouth in [...] 90 Tablet 1 10/16/2023 Active Droplet Pen [place] 32G X 6 MM (NOVOFINE 32G PEN [...] failure managing provider. 1 Each 11/20/2023 Active documented as of this encounter (statuses as of 11/23/2023) Active Problems Problem Noted Date Diagnosed Date [...] as of this encounter (statuses as of 11/23/2023) Resolved Problems Problem Noted Date Diagnosed Date Resolved Date Chronic kidney disease, stage 3b 03/17/2022 05/21/2023 Overview: Per CKD protocol Type 2 diabetes mellitus wit h stage 3b chronic kidney disease, without long-term current use of insulin 07/26/2021 03/20/2022 Overview: Per CKD protocol documented as of this encounter (statuses as of 11/23/2023) Immunizations Name Administration Dates Next Due COVID-19 [...] Care Team (Late st Contact Info) Description 11/23/2023 4:00 PM EDT Office Visit General Internal Medicine [facility] [address] [facility] [place] [address] Dalila Bauman MD 200 [place] [address] 12/01/2023 7:25 AM EDT Laboratory Lab Mobile Phlebotomy [facility] [address] [facility] [place], [place] [address] Mv[facility], Gml Mobile Home Draw [address] [facility] [place], [place] [address] 12/08/2023 2:30 PM EDT Office Visit Hematology/Oncology [facility] [address] [facility] [place], [place] [phone] Erin Tony CRNP [address] [place] [address] 01/05/2024 4:00 PM EDT Office Visit Cardiology, [facility] [address] [place] [address] Wiliam Schroeder MD [address] [place] [address] 02/04/2024 2:20 PM EDT Office Visit Sleep Disorders Ctr [facility] [address] [facility] [place] [phone] Kayleen Stephens DO [address] [place] [address] Scheduled Referrals Name Type Priority Associated Diagnoses Orde r Schedule HOME PHLEBOTOMY REFERRAL OP Referral Within 10 days (routine) MGUS (monoclonal gammopathy of unknown significance) Ordered: 11/23/2023 Health Maintenance Due Date Last Done Comments [...] D LEVEL ONCE IN A LIFETIME-USE SMARTSET# [id number] Completed 09/16/2023, 12/19/2022, 03/25/2022, Additional history exists [...] this encounter Medical Devices Implanted Type Area Process Operator Device Identifier Shelf Expiration Date Model / Serial / Lot Lens Intraoc 25.0 - [id number] - [id number] Implanted:Qty: 1 on 09/03/2021 by Deon Griffin MD at OR [facility] Left: Eye [employer] LOMB 10/02/2025 [id number] / [id number] / [id number] Lens Intraoc 26.0 - [id number] - [id number] Implanted:Qty: 1 on 09/17/2021 by Deon Griffin MD at OR [facility] Right: Eye [employer]CH [employer] LOMB 10/03/2025 [id number] / [id number] / [id number] documented as of this encounter Visit Diagnoses Diagnosis MGUS (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
--- OUTSIDE RECORDS SUMMARY | 2023-12-06 17:48 | External Medical Summary | Summary of Care ---
Author Name Unknown Organization [facility] Address [address] [place] [address] Phone [phone] Care Team Providers Care Bucket Operator Name Role Phone Dalila Bauman MD Primary Care Provider [phone] Reason for Visit * Reason Onset Date Comments Appointment 10/22/2023 Lab appt needs s witched to mobile lab Encounter Details Date Type Department Care Team (Late st Contact Info) Description 10/22/2023 Telephone General Internal Medicine [facility] [address] [facility] [address] App[facility]ment (Lab appt needs switched to mo... Allergies Active Allergy Reactions Criticality Noted Date Comments Latex 01/09/2021 Penicillins 01/09/2021 Sulfa Antibiotics 01/09/2021 documented as of this encounter (statuses as of 11/20/2023) Medications Medication Sig Dispensed Refills Start Date [...] goal of less than 8.0% ([facility]) take 1 tablet by mouth [...] goal of less than 8.0% ([facility]) Use to test blood glucose 3 times daily. DX: E11.9 300 Each 3 07/02/2023 Active Magnesium Chloride 64 MG Oral Tablet Take by mouth daily. 0 Active Sertraline HCl 50 MG Oral Tablet (Zoloft)Indications :Adjustment disorder with anxious mood Take 1 Tablet by mouth in the morning. Inc at [place] 09/07/23. 0 09/16/2023 Active Tresiba FlexTouch 100 UNIT/ML Subcutaneous Solution Pen-injector (Insulin Degludec)Indication s:Type 2 diabetes mellitus with stage 3b chronic kidney disease, without long-term current use of insulin ([facility]),Type 2 diabetes mellitus with hemoglobin A1c goal of less than 8.0% ([facility]) Inject 30 Units under the skin in the morning. 0 09/16/2023 Active Carvedilol 25 MG Oral Tablet (Coreg) Take 1.5 Tablets by mouth 2 times a day with morning and evening meals. 270 Tablet 1 10/03/2023 Active Potassium Chloride Denise ER 20 MEQ Oral Tablet Extended ReleaseIndications: Diastolic CHF with preserved left ventricular function, NYHA class 2 ([facility]),Hypokalemia Take 1 Tablet by mouth [...] 90 Tablet 1 10/16/2023 Active Droplet Pen [place] 32G X 6 MM (NOVOFINE 32G PEN NEEDLE)Indications: Type 2 diabetes mellitus with hemoglobin A1c goal of less than 8.0% ([facility]) USE WITH LANTUS DAILY 100 Each 1 10/16/2023 Active documented as of this encounter (statuses as of 11/20/2023) Active Problems Problem Noted Date Diagnosed Date [...] as of this encounter (statuses as of 11/20/2023) Resolved Problems Problem Noted Date Diagnosed Date Resolved Date Chronic kidney disease, stage 3b 03/17/2022 05/21/2023 Overview: Per CKD protocol Type 2 diabetes mellitus wit h stage 3b chronic kidney disease, without long-term current use of insulin 07/26/2021 03/20/2022 Overview: Per CKD protocol documented as of this encounter (statuses as of 11/20/2023) Immunizations Name Administration Dates Next Due COVID-19 [...] encounter Miscellaneous Notes * Telephone Encounter - Rosibel Barrientos OSA - 11/20/2023 2:33 PM EDT Done. 11/20/2023 * Telephone Encounter - Cindy Terry LPN - 10/22/2023 10:07 AM EDT Pt is calling. Reports that she is scheduled an in office lab appointment on 10/29/23 at 1:30 PM. Is asking that this is switched to a mobile lab appt. PCP place home phlebotomy order 09/16/23. Labs that need obtained were ordered by Dr. Nunez. Please assist with scheduling. documented in this encounter Plan of Treatment Upcoming Encounters Date Type Department Care Team (Late st Contact Info) Description 11/23/2023 4:00 PM EDT Office Visit General Internal Medicine [facility] 200 [facility] [place] [address] Dalila Bauman MD 200 [facility] [place] [address] 12/01/2023 7:25 AM EDT Laboratory Lab Mobile Phlebotomy [facility] [address] [facility] [place] [address] Mv[facility], Gml Mobile Home Draw [address] [facility] [place] [address] 12/08/2023 2:30 PM EDT Office Visit Hematology/Oncology [facility] 200 [facility] [place] [phone] Erin Tony CRNP [address] [place] [phone] 01/05/2024 4:00 PM EDT Office Visit Cardiology, [facility] [address] [place] [address] Wiliam Schroeder MD [address] [place] [phone] 02/04/2024 2:20 PM EDT Office Visit Sleep Disorders Ctr [facility] [address] [place] [phone] Kayleen Stephens DO [address] [place] [address] Health Maintenance Due Date Last Done Comments [...] D LEVEL ONCE IN A LIFETIME-USE SMARTSET# [id number] Completed 09/16/2023, 12/19/2022, 03/25/2022, Additional history exists [...] this encounter Medical Devices Implanted Type Area Cpo Device Identifier Shelf Expiration Date Model / Serial / Lot Lens Intraoc 25.0 - [id number] - [id number] Implanted:Qty: 1 on 09/03/2021 by Deon Griffin MD at OR [facility] Left: Eye [employer] LOMB 10/02/2025 [id number] / [id number] / [id number] Lens Intraoc 26.0 - [id number] - [id number] Implanted:Qty: 1 on 09/17/2021 by Deon Griffin MD at OR [facility] Right: Eye [employer]CH [employer] LOMB 10/03/2025 [id number] / [id number] / [id number] documented as of this encounter Advance Directives Healthcare Agents on File Name Relationship Healthcare Agent Relationshi p Communication Nancy [facility] Adult Child Health Care R epresentative (appointed verbally by patient or by statute hierarchy) Care Teams Bucket Operator Relationship Specialty Start Date End Date Dalila Bauman MD [address] [place] [address], [place] [id number] PCP - General Internal Medicine 01/09/21 documented as of this encounter
--- OUTSIDE RECORDS SUMMARY | 2023-12-06 17:48 | External Medical Summary | Summary of Care ---
Author Name Unknown Organization [facility] Address [address] [facility] [address] Phone [phone] Care Team Providers Care Laminator Name Role Phone Dalila Bauman MD Primary Care Provider [phone] Reason for Visit * Reason Onset Date Comments case management 11/24/2023 Encounter Details Date Type Department Care Team (Late st Contact Info) Description 11/24/2023 Telephone General Internal Medicine [facility] [place] [address] [facility] [place] [address] Dalila Bauman MD 200 [place] [address] case management Allergies Active Allergy Reactions Criticality Noted Date Comments Latex 01/09/2021 Penicillins 01/09/2021 Sulfa Antibiotics 01/09/2021 documented as of this encounter (statuses as of 11/24/2023) Medications Medication Sig Dispensed Refills Start Date [...] insulin ([facility]) Take 1 Tablet by mouth in the morning and 1 Tablet at noon and 1 Tablet before bedtime. 270 Tablet 3 06/08/2023 Active Empagliflozin 25 MG Oral Tablet (Jardiance)Indicati ons:Type 2 diabetes mellitus with stage 3b chronic kidney disease, without long-term current use of insulin ([facility]) Take 1 Tablet by mouth [...] of insulin ([facility]),Type 2 diabetes mellitus with hemoglobin A1c goal of less than 8.0% ([facility]) Inject 30 Units under the skin in the morning. 09/16/2023 Active Carvedilol 25 MG Oral Tablet (Coreg) Take 1.5 Tablets by mouth 2 times a day with morning and evening meals. 270 Tablet 1 10/03/2023 Active Potassium Chloride Denise ER 20 MEQ Oral Tablet Extended ReleaseIndications: Diastolic CHF with preserved left ventricular function, NYHA class 2 ([facility]),Hypokalemia Take 1 Tablet by mouth [...] 90 Tablet 1 10/16/2023 Active Droplet Pen [place] 32G X 6 MM (NOVOFINE 32G PEN NEEDLE)Indications: Type 2 diabetes mellitus with hemoglobin A1c goal of less than 8.0% ([facility]) USE WITH LANTUS DAILY 100 Each 1 10/16/2023 Active Ferrous Sulfate 325 (65 Fe) MG Oral Tablet Delayed Release Take 1 Tablet by mouth. 11/09/2023 Active Folic Acid 1 MG Oral Tablet Take 1 Tablet by mouth in the morning. 11/09/2023 Active DIURETIC TITRATION PLANIndications:Nessa stolic CHF with preserved left ventricular function, NYHA class 2 ([facility]) If no improvement on day 3, contact heart failure managing provider. 1 Each 11/20/2023 Active Vitamin B12 500 MCG Oral TabletIndications:A nemia, unspecified type one pill each day at [facility] 11/09/23 11/23/2023 Active Sertraline HCl 50 MG Oral Tablet (Zoloft)Indications :Adjustment disorder with anxious mood Take 1 Tablet by mouth in the morning. -take with food; Inc at [place] 09/07/23. 90 Tablet 11/23/2023 Active documented as of this encounter (statuses as of 11/24/2023) Active Problems Problem Noted Date Diagnosed Date [...] as of this encounter (statuses as of 11/24/2023) Resolved Problems Problem Noted Date Diagnosed Date Resolved Date Chronic kidney disease, stage 3b 03/17/2022 05/21/2023 Overview: Per CKD protocol Type 2 diabetes mellitus wit h stage 3b chronic kidney disease, without long-term current use of insulin 07/26/2021 03/20/2022 Overview: Per CKD protocol documented as of this encounter (statuses as of 11/24/2023) Immunizations Name Administration Dates Next Due COVID-19 [...] have six minute walk test done at [facility]. There is no documentation in [facility] that it was done during her last hospital admission. This corrections caseworker called and spoke with Medical Records, and there was no testing in record. Patient will need to be scheduled at [facility] for the 6 minute walk test. Scheduling: please call patient to schedule six minute walk test at [facility]. Thank you! documented in this encounter Plan of Treatment Upcoming Encounters Date Type Department Care Team (Late st Contact Info) Description 12/01/2023 7:25 AM EDT Laboratory Lab Mobile Phlebotomy [facility] [address] [facility] [place] [address] Mv[facility], Gml Mobile Home Draw [address] [facility] [place] [address] 12/08/2023 2:30 PM EDT Office Visit Hematology/Oncology [facility] 200 [facility] [place] [phone] Erin Tony CRNP [address] [place] [address] 12/29/2023 1:00 PM EDT PulmDiagnostic Pulmonary Function Lab, [facility] [address] [facility] [place] [address] [place] [address] [facility] [place] [address] 01/05/2024 4:00 PM EDT Office Visit Cardiology, [facility] 132 [facility] [place] [address] Wiliam Schroeder MD 132 [facility] [place] [address] 01/13/2024 1:00 PM EDT Office Visit Nephrology, [facility] 200 [facility] [place] [address] Cornel Smith MD [address] [facility] [place] [address] 02/04/2024 2:20 PM EDT Office Visit [facility] Disorders Ctr [facility] 132 [facility] [place] [phone] Kayleen Stephens DO [address] [facility] [place] [address] 02/26/2024 1:00 PM EDT Office Visit General Internal Medicine [facility] 200 [facility] [place] [address] Dalila Bauman MD 200 [facility] [place] [address] Health Maintenance Due Date Last Done Comments [...] D LEVEL ONCE IN A LIFETIME-USE SMARTSET# [id number] Completed 09/16/2023, 12/19/2022, 03/25/2022, Additional history exists [...] this encounter Medical Devices Implanted Type Area Bellman Captain Device Identifier Shelf Expiration Date Model / Serial / Lot Lens Intraoc 25.0 - [id number] - [id number] Implanted:Qty: 1 on 09/03/2021 by Deon Griffin MD at OR [facility] Left: Eye BA[employer]CH [employer] LOMB 10/02/2025 [id number] / [id number] / [id number] Lens Intraoc 26.0 - [id number] - [id number] Implanted:Qty: 1 on 09/17/2021 by Deon Griffin MD at OR [facility] Right: Eye [employer]USCH [employer] LOMB 10/03/2025 [id number] / [id number] / [id number] documented as of this encounter Advance Directives Healthcare Agents on File Name Relationship Healthcare Agent Relationshi p Communication Nancy Hopkins Adult Child Health Care R epresentative (appointed verbally by patient or by statute hierarchy) Care Teams Laminator Relationship Specialty Start Date End Date Dalila Bauman MD [address] [place] [address] PCP - General Internal Medicine 01/09/21 documented as of this encounter
--- OUTSIDE RECORDS SUMMARY | 2023-12-06 17:48 | External Medical Summary ---
Author Name Unknown Address Unknown Organization K09:[facility] [place] [address] Laboratory Report Ordering Provider Test Date Status KAREN FRAIRE 11/26/2023 11:54:55 Final Observation Date Value Abnormality Reference (Units ) Status Magnesium 11/26/2023 11:54:55 1.8 1.5-2.6 (m g/dL) Final Performing Location [facility] [place] [address]
--- OUTSIDE RECORDS SUMMARY | 2023-12-06 17:48 | External Medical Summary | Summary of Care ---
Author Name Unknown Organization [facility] Address [address] [facility] [address] Phone [phone] Care Team Providers Care Desulfurizer Operator Name Role Phone Dalila Bauman MD Primary Care Provider [phone] Reason for Visit * Reason Onset Date Comments Med Request 11/20/2023 Encounter Details Date Type Department Care Team (Late st Contact Info) Description 11/20/2023 Telephone General Internal Medicine [facility] [place] [address] [facility] [place] [address] Dalila Bauman MD 200 [place] [address] Med Request Allergies Active Allergy Reactions Criticality Noted [...] macular edema presence unspecified, unspecified retinopathy severity ([facility]) take 1 tablet by mouth daily 90 [...] long-term current use of insulin ([facility]) Take 1 Tablet by mouth in the [...] goal of less than 8.0% ([facility]) Use to test blood glucose 3 times daily. DX: E11.9 300 Each 3 07/02/2023 Active Magnesium Chloride 64 MG Oral Tablet Take by mouth daily. 0 Active Sertraline HCl 50 MG Oral Tablet (Zoloft)Indications :Adjustment disorder with anxious mood Take 1 Tablet by mouth in the morning. Inc at [place] 09/07/23. 0 09/16/2023 Active Tresiba FlexTouch 100 UNIT/ML Subcutaneous Solution Pen-injector (Insulin Degludec)Indication s:Type 2 diabetes mellitus with stage 3b chronic kidney disease, without long-term current use of insulin ([facility]),Type 2 diabetes mellitus with hemoglobin A1c goal of less than 8.0% ([facility]) Inject 30 Units under the skin in the morning. 0 09/16/2023 Active Carvedilol 25 MG Oral Tablet (Coreg) Take 1.5 Tablets by mouth 2 times a day with morning and evening meals. 270 Tablet 1 10/03/2023 Active Potassium Chloride Denise ER 20 MEQ Oral Tablet Extended ReleaseIndications: Diastolic CHF with preserved left ventricular function, NYHA class 2 ([facility]),Hypokalemia Take 1 Tablet by mouth in the [...] 90 Tablet 1 10/16/2023 Active Droplet Pen [place] 32G X 6 MM (NOVOFINE 32G PEN NEEDLE)Indications: Type 2 diabetes mellitus with hemoglobin A1c goal of less than 8.0% ([facility]) USE WITH LANTUS DAILY 100 Each 1 10/16/2023 Active Ferrous Sulfate 325 (65 Fe) MG Oral Tablet Delayed Release Take 1 Tablet by mouth. 0 11/09/2023 Active Folic Acid 1 MG Oral Tablet Take 1 Tablet by mouth in the morning. 0 11/09/2023 Active DIURETIC TITRATION PLANIndications:Nessa stolic CHF with preserved left ventricular function, NYHA class 2 ([facility]) If no improvement on day 3, contact heart failure managing provider. 1 Each 0 11/20/2023 Active documented as of this encounter [...] encounter Miscellaneous Notes * Telephone Encounter - Martinez Lazaro DO - 11/20/2023 4:56 PM EDT Chart reviewed and coverage of Dr. Schroeder. As of discharge on 11/09/2023 patient was to be taking furosemide 40 mg by mouth daily. For symptoms of increased swelling, shortness of breath, abdominal bloating, recommend patient doubles her furosemide dose x 3 days as specified in diuretic titration protocol. Martinez Lazaro DO * Telephone Encounter - Mago Luis RN - 11/20/2023 3:43 PM EDT TigerText sent to Dr Lazaro regarding DTP. Awaiting order for DTP. Patient has had 2 admission this year with congestive heart failure exacerbation. She has a body port scale. In the last 2 days she has had an increase in her congestion score by 23 points. Her congestion score continues to increase. She had a weight gain of 1.8 lbs overnight, with the increase in congestion score. Would like a DTP in place for the weekend. This CM can follow up with patient. documented in this encounter Plan of Treatment Upcoming Encounters Date Type Department Care Team (Late st Contact Info) Description 11/23/2023 4:00 PM EDT Office Visit General Internal Medicine [place] [address] [place] [address] [address] Dalila Bauman MD [address] [place] [address] [address] 12/01/2023 7:25 AM EDT Laboratory Lab Mobile Phlebotomy [facility] [address] [place] [address] [address] [facility], [facility] Mobile Home Draw [address] [place] [address] [address] 12/08/2023 2:30 PM EDT Office Visit Hematology/Oncology [facility] [place] [address] [facility] [place] [address] Erin Tony CRNP [address] [place] [address] 01/05/2024 4:00 PM EDT Office Visit Cardiology, [facility] [address] [facility] [place] [address] Wiliam Schroeder MD [address] [place] [address] 02/04/2024 2:20 PM EDT Office Visit [facility] Disorders Ctr [facility] [place] [address] [place] [phone] Kayleen Stephens DO [address] [place] [address] Health Maintenance Due Date Last Done Comments [...] D LEVEL ONCE IN A LIFETIME-USE SMARTSET# [id number] Completed 09/16/2023, 12/19/2022, 03/25/2022, Additional history exists [...] this encounter Medical Devices Implanted Type Area Monument Installer Device Identifier Shelf Expiration Date Model / Serial / Lot Lens Intraoc 25.0 - [id number] - [id number] Implanted:Qty: 1 on 09/03/2021 by Deon Griffin MD at OR [facility] Left: Eye [employer]OMB 10/02/2025 [id number] / [id number] / [id number] Lens Intraoc 26.0 - [id number] - [id number] Implanted:Qty: 1 on 09/17/2021 by Deon Griffin MD at OR [facility] Right: Eye [employer] LOMB 10/03/2025 [id number] / [id number] / [id number] documented as of this encounter Visit Diagnoses Diagnosis Diastolic CHF with preserved left ventricular function, NYHA class 2 (HCC)- Primary Unspecified diastolic heart failure documented in this encounter Advance Directives Healthcare Agents on File Name Relationship Healthcare Agent Relationshi p Communication Nancy Hopkins Adult Child Health Care R epresentative (appointed verbally by patient or by statute hierarchy) Care Teams Desulfurizer Operator Relationship Specialty Start Date End Date Dalila Bauman MD 200 [place] [address] PCP - General Internal Medicine 01/09/21 documented as of this encounter
--- OUTSIDE RECORDS SUMMARY | 2023-12-06 17:48 | External Medical Summary | Summary of Care ---
Author Name Unknown Organization [facility] Address [address] [facility] [address] Phone [phone] Care Team Providers Care Freight Hustler Name Role Phone Dalila Bauman MD Primary Care Provider [phone] Reason for Visit * Reason Onset Date Comments Hospital Follow-Up 08/21/2023 Encounter Details Date Type Department Care Team (Late st Contact Info) Description 08/21/2023 Telephone General Internal Medicine [facility] [place] 200 [facility] [place] [address] Dalila Bauman MD [facility] [address] Hospital Follow-Up Allergies Active Allergy Reactions Criticality [...] encounter Miscellaneous Notes * Telephone Encounter - Jeffery Fuentes RN - 08/21/2023 2:42 PM EST Patient discharged to home from [facility] 08/21/23. Nephrology consulted and recommends: Nephrology f/u with me within 1-2 weeks. Please assist with this appt with Dr Smith. Thank you documented in this encounter Plan of Treatment Upcoming Encounters Date Type Department Care Team (Late st Contact Info) Description 11/23/2023 4:00 PM EDT Office Visit General Internal Medicine [facility] [address] [place] [address] [address] Dalila Bauman MD 200 [facility] [place] [address] 12/01/2023 7:25 AM EDT Laboratory Lab Mobile Phlebotomy [facility] [address] [place] [address] [place] [address] [facility], [facility] Mobile Home Draw [address] [facility] [place] [address] 12/08/2023 2:30 PM EDT Office Visit Hematology/Oncology [facility] [address] [facility] [place] [phone] Erin Tony CRNP [address] [place] [address] [place] [address] 01/05/2024 4:00 PM EDT Office Visit Cardiology, [facility] [address] [address] Wiliam Schroeder MD [address] [address] 02/04/2024 2:20 PM EDT Office Visit [facility] Disorders Ctr [facility] [address] [place] [phone] StephensRobertpola Gomest, [address] [place] [address] Health Maintenance Due Date Last Done Comments [...] D LEVEL ONCE IN A LIFETIME-USE SMARTSET# [id number] Completed 09/16/2023, 12/19/2022, 03/25/2022, Additional history exists [...] this encounter Medical Devices Implanted Type Area Web Knitter Device Identifier Shelf Expiration Date Model / Serial / Lot Lens Intraoc 25.0 - [id number] - [id number] Implanted:Qty: 1 on 09/03/2021 by Deon Griffin MD at OR [facility] Left: Eye [employer] LOMB 10/02/2025 [id number] / [id number] / [id number] Lens Intraoc 26.0 - [id number] - [id number] Implanted:Qty: 1 on 09/17/2021 by Deon Griffin MD at OR [facility] Right: Eye [employer]CH [employer] LOMB 10/03/2025 [id number] / [id number] / [id number] documented as of this encounter Advance Directives Healthcare Agents on File Name Relationship Healthcare Agent Relationshi p Communication Nancy Hopkins Adult Child Health Care R epresentative (appointed verbally by patient or by statute hierarchy) Care Teams Freight Hustler Relationship Specialty Start Date End Date Dalila Bauman MD [address] [place] [address] PCP - General Internal Medicine 01/09/21 documented as of this encounter
--- OUTSIDE RECORDS SUMMARY | 2023-12-06 17:48 | External Medical Summary | Summary of Care ---
Author Name Unknown Organization [facility] Address [address] [place] [address] Phone [phone] Care Team Providers Care Supervisory It Specialist Name Role Phone Dalila Bauman MD Primary Care Provider [phone] Encounter Details Date Type Department Care Team (Late st Contact Info) Description 11/20/2023 11:00 AM EDT Home Visit Care Coordination and Integration [address] [place] [address] Yina Vale, Community Health Load Mixer [address], [place] [id number] Allergies Active Allergy Reactions Criticality Noted Date [...] by mouth in the morning. Inc at [place] 09/07/23. 0 09/16/2023 Active Tresiba FlexTouch 100 [...] preserved left ventricular function, NYHA class 2 ([facility]),Hypokalemia Take 1 Tablet by mouth [...] 90 Tablet 1 10/16/2023 Active Droplet Pen [place] 32G X 6 MM (NOVOFINE 32G PEN NEEDLE)Indications: Type 2 diabetes mellitus with hemoglobin A1c goal of less than 8.0% ([facility]) USE WITH LANTUS DAILY 100 Each 1 10/16/2023 Active Ferrous Sulfate 325 (65 Fe) MG Oral Tablet Delayed Release Take 1 Tablet by mouth. 0 11/09/2023 Active Folic Acid 1 MG Oral Tablet Take 1 Tablet by mouth in the morning. 0 11/09/2023 Active documented as of this encounter (statuses [...] as of this encounter Progress Notes * Yina Vale, Community Health Load Mixer - 11/20/2023 11:03 AM EDT Telemedicine visit: No Community Health Load Mixer ([place]IL[place]) documentation: CHW initiated cold home visit per CM's request Patient was receptive to CHW and willing to do the visit. CHW explained why CHW was there and patient explained what was going on. CHW sent TT to that CHW was with patient and CM requested that CHW and patient call her. CHW called CM Mago and patient spoke with CM. Patient was able to get a post d/c from hospital f/u appointment with Dr Bauman on Wednesday 11/22 at 4pm. Patient reported that she has a wonderful support systems with her daughters and is is so grateful to have them. Patient refusedto have her vitals taken. She said she was fine and that the nurse just did them yesterday. Patient called to set up transportation for Mondays pcp appointment and they did not have anything availa ble for Thursday. Patient was offered [facility] but refused. Patient will call her daughter and get something figured out and will make sure she gets to appointment. Yina Vale- Community Health Worker 1 Support Services/[facility] [email or web address] documented in this encounter Plan of Treatment Upcoming Encounters Date Type Department Care Team (Late st Contact Info) Description 11/23/2023 4:00 PM EDT Office Visit General Internal Medicine State Amanda Dalal [address] [place] [address] [address] Dalila Bauman MD [address] [place] [address] [address] 12/01/2023 7:25 AM EDT Laboratory Lab Mobile Phlebotomy [facility] [address] [place] [address] [facility], [facility] Mobile Home Draw [address] [place] [address] 12/08/2023 2:30 PM EDT Office Visit Hematology/Oncology [facility] [place] [address] [place], [place] [address] Erin Tony CRNP [address] [place] [address] 01/05/2024 4:00 PM EDT Office Visit Cardiology, [facility] [address] [facility] [place] [address] Wiliam Schroeder MD [address] [place] [address] 02/04/2024 2:20 PM EDT Office Visit Sleep Disorders Ctr [facility] [place] [address] [place] [phone] Kayleen Stephens DO [address] [place] [address] Health Maintenance Due Date Last Done Comments [...] D LEVEL ONCE IN A LIFETIME-USE SMARTSET# [id number] Completed 09/16/2023, 12/19/2022, 03/25/2022, Additional history exists [...] this encounter Medical Devices Implanted Type Area Theatre Arts Professor Device Identifier Shelf Expiration Date Model / Serial / Lot Lens Intraoc 25.0 - [id number] - [id number] Implanted:Qty: 1 on 09/03/2021 by Deon Griffin MD at OR [facility] Left: Eye [employer]CH [employer] LOMB 10/02/2025 [id number] / [id number] / [id number] Lens Intraoc 26.0 - [id number] - [id number] Implanted:Qty: 1 on 09/17/2021 by Deon Griffin MD at OR [facility] Right: Eye BAUSCH [employer] LOMB 10/03/2025 [id number] / [id number] / [id number] documented as of this encounter Advance Directives Healthcare Agents on File Name Relationship Healthcare Agent [facility] p Communication Nancy Hopkins Adult Child Health Care R epresentative (appointed verbally by patient or by statute hierarchy) Care Teams Supervisory It Specialist Relationship Specialty Start Date End Date Dalila Bauman MD 200 [place] [address] PCP - General Internal Medicine 01/09/21 documented as of this encounter
--- OUTSIDE RECORDS SUMMARY | 2023-12-06 17:48 | External Medical Summary | Summary of Care ---
Author Name Unknown Organization [facility] [address] [facility] [address] Phone [phone] Care Team Providers Care Reworker Name Role Phone Dalila Bauman MD Primary Care Provider [phone] Reason for Visit * Reason Onset Date Comments case management 11/24/2023 Encounter Details Date Type Department Care Team (Late st Contact Info) Description 11/24/2023 Telephone General Internal Medicine [facility] [place] 200 [facility] [place] [address] Dalila Bauman MD 200 [place] [address] case management Allergies Active Allergy Reactions Criticality [...] current use of insulin ([facility]) Take 1 Tablet by mouth in the morning and 1 Tablet at noon and 1 Tablet before bedtime. 270 Tablet 3 06/08/2023 Active Empagliflozin 25 MG Oral Tablet (Jardiance)Indicati ons:Type 2 diabetes mellitus with stage 3b chronic kidney disease, without long-term current use of insulin ([facility]) Take 1 Tablet by mouth in [...] long-term current use of insulin ([facility]),Type 2 diabetes mellitus with hemoglobin A1c goal of less than 8.0% ([facility]) Inject 30 Units under the skin in the morning. 09/16/2023 Active Carvedilol 25 MG Oral Tablet (Coreg) Take 1.5 Tablets by mouth 2 times a day with morning and evening meals. 270 Tablet 1 10/03/2023 Active Potassium Chloride Denise ER 20 MEQ Oral Tablet Extended ReleaseIndications: Diastolic CHF with preserved left ventricular function, NYHA class 2 ([facility]),Hypokalemia Take 1 Tablet by mouth in [...] 90 Tablet 1 10/16/2023 Active Droplet Pen [place] 32G X 6 MM (NOVOFINE 32G PEN NEEDLE)Indications: Type 2 diabetes mellitus with hemoglobin A1c goal of less than 8.0% ([facility]) USE WITH LANTUS DAILY 100 Each 1 10/16/2023 Active Ferrous Sulfate 325 (65 Fe) MG Oral Tablet Delayed Release Take 1 Tablet by mouth. 11/09/2023 Active Folic Acid 1 MG Oral Tablet Take 1 Tablet by mouth in the morning. 11/09/2023 Active DIURETIC TITRATION PLANIndications:Nessa stolic CHF with preserved left ventricular function, NYHA class 2 ([facility]) If no improvement on day 3, contact heart failure managing provider. 1 Each 11/20/2023 Active Vitamin B12 500 MCG Oral TabletIndications:A nemia, unspecified type one pill each day at [facility] 11/09/23 11/23/2023 Active Sertraline HCl 50 MG Oral Tablet (Zoloft)Indications :Adjustment disorder with anxious mood Take 1 Tablet by mouth in the morning. -take with food; Inc at [place] 09/07/23. 90 Tablet 11/23/2023 Active documented as [...] have six minute walk test done at [facility]. There is no documentation in [facility] that it was done during her last hospital admission. This rn case manager called and spoke with Medical Records, and there was no testing in record. Patient will need to be scheduled at [facility] for the 6 minute walk test. Scheduling: please call patient to schedule six minute walk test at [facility]. Thank you! documented in this encounter Plan of Treatment Upcoming Encounters Date Type Department Care Team (Late st Contact Info) Description 11/26/2023 7:05 AM EDT Laboratory Lab Mobile Phlebotomy [facility] [address] [facility] [place] [address] [facility], [facility]ml Mobile Home Draw [address] [place] [address] 12/08/2023 2:30 PM EDT Office Visit Hematology/Oncology [facility] [place] 200 [facility] [place] [phone] Erin Tony CRNP [address] [place] [address] 12/29/2023 1:00 PM EDT PulmDiagnostic Pulmonary Function Lab, [facility] 132 [facility] [place] [address] [place], [place] 132 [facility] [place] [address] 01/05/2024 4:00 PM EDT Office Visit Cardiology, [facility] 132 [facility] [place] [address] Wiliam Schroeder MD 132 [facility] [place] [address] 01/13/2024 1:00 PM EDT Office Visit Nephrology, [facility] 200 [facility] [place] [address] Cornel Smith MD 200 [facility] [place] [address] 02/04/2024 2:20 PM EDT Office Visit [facility] 132 [facility] [place] [phone] Kayleen Stephens DO 132 [facility] [place] [address] 02/26/2024 1:00 PM EDT Office Visit General Internal Medicine [facility] 200 [facility] [place] [address] Dalila Bauman MD 200 [facility] [place] [address] Health Maintenance Due Date Last Done Comments [...] D LEVEL ONCE IN A LIFETIME-USE SMARTSET# [id number] Completed 09/16/2023, 12/19/2022, 03/25/2022, Additional history exists [...] this encounter Medical Devices Implanted Type Area Skiver Heel Tap Device Identifier Shelf Expiration Date Model / Serial / Lot Lens Intraoc 25.0 - [id number] - [id number] Implanted:Qty: 1 on 09/03/2021 by Deon Griffin MD at OR [facility] Left: Eye [employer]CH [employer] LOMB 10/02/2025 [id number] / [id number] / [id number] Lens Intraoc 26.0 - [id number] - [id number] Implanted:Qty: 1 on 09/17/2021 by Deon Griffin MD at OR [facility] Right: Eye BAUSCH [employer] LOMB 10/03/2025 [id number] / [id number] / [id number] documented as of this encounter Advance Directives Healthcare Agents on File Name Relationship Healthcare Agent Relationshi p Communication Nancy Hopkins Adult Child Health Care R epresentative (appointed verbally by patient or by statute hierarchy) Care Teams Reworker Relationship Specialty Start Date End Date Dalila Bauman MD 200 [place] [address] PCP - General Internal Medicine 01/09/21 documented as of this encounter
[2023-12-06 18:18] LABS: Basophils # (auto) 0.03 K/uL (0.00-0.20); Basophils % (auto) 0.3 %; Eosinophils # (auto) 0.03 K/uL (0.00-0.50); Eosinophils % (auto) 0.3 %; Hematocrit (blood only) 29.2 % (37.0-47.0); Hemoglobin 9.4 g/dl (12.0-16.0); Immature Granulocytes # (auto) 0.03 K/uL (0.01-0.20); Immature Granulocytes % (auto) 0.3 %; Lymphocytes # (auto) 1.29 K/uL (1.20-3.40); Lymphocytes % (auto) 14.7 %; Mean Corpuscular Hemoglobin 30.2 pg (25.0-34.0); Mean Corpuscular Hgb Conc 32.2 g/dL (32.0-36.0); Mean Corpuscular Volume 93.9 fL (80.0-100.0); Mean Platelet Volume 9.4 fL (9.4-12.4); Monocytes # (auto) 0.68 K/uL (0.11-0.59); Monocytes % (auto) 7.7 %; Neutrophils # (auto) 6.73 K/uL (1.40-6.50); Neutrophils % (auto) 76.7 %; Platelet Count 278 K/uL (130-400); RDW Coefficient of Variation 15.1 % (11.5-14.5); RDW Standard Deviation 51.9 fL (36.4-46.3); Red Blood Count 3.11 M/uL (4.20-5.40); White Blood Count 8.79 K/ul (4.8-10.8)
[2023-12-06 18:35] LABS: Albumin Level 3.9 gm/dl (3.4-5.0); BUN Creatinine Ratio 17.5 (10-20); Bilirubin,Total 0.8 mg/dl (0.2-1.0); Calcium 9.5 mg/dl (8.6-10.3); Est GFR (African American) 46.4 ml/min; Globulin 3.9 gm/dl (2.5-4.0); Potassium 3.4 mmol/L (3.5-5.1); Total Protein 7.8 gm/dl (6.0-8.3)
--- NOTE | 2023-12-06 18:38 | Emergency Department Note ---
Impression & Plan Acute on chronic congestive heart failure, Hypoxia ED Provider Note NAME: BERNARD TRAN AGE: 88 SEX: F : 1935 ARRIVES VIA: Ambulance INFORMANT: Patient, ED PROVIDER(S): Gama Frye MD CHIEF COMPLAINT: Increased dyspnea HPI: This is a 88-year-old female with history of CHF, diabetes, CKD, hypertension presenting for dyspnea/chest pain. Patient states for over the past 24 hours she has had a sudden increase in dyspnea. She notes she was doing her daily activities today and her oxygen level was low at around 83%. She notes that she only uses oxygen at night, 2 L usually. She started herself on oxygen yearly and called EMS. She notes she has been orthopneic. She also notes new chest pain, sternal breath course of the day. She notes she takes provide at home and is not improving. She was improved with 2 nitroglycerin prehospital as well as 324 aspirin. She notes she has a mild lower extremity edema and cannot about 2 pounds from her previous baseline. She does not feel like her previous CHF exacerbation. ROS: See above HPI for pertinent positives & negatives. A total of 10 systems reviewed and were otherwise negative. PHYSICAL EXAMINATION: General: resting comfortably in no acute distress Head: Normocephalic and atraumatic Eyes: Normal inspection, extraocular muscles intact Ear, nose, throat: Normal external exam Neck: Normal range of motion Respiratory: Conversational dyspnea, bibasilar crackles Cardiovascular: Regular rate/rhythm, no murmur GI: soft, nontender, no guarding or rebound Extremities: nontender, moves all extremities mild pitting edema Neuro: The patient awake and alert, appropriately conversive, no focal deficits, symmetric faces Skin: Warm, dry, and intact MEDICAL DECISION MAKING: This is an 88-year-old female presenting for dyspnea/chest pain. Will do D- dimer to help elucidate for PE. Otherwise consider CHF most likely cause of patient's current symptoms. Also consider pneumonia. Overall well-appearing but is, she is dyspneic and requiring oxygen for comfort/hypoxia. -ECG independently interpreted by me with normal sinus rhythm, with frequent PVCs, rate of 80, left axis deviation, normal TX, left bundle branch block, normal QTc, no ST segment elevations consistent with STEMI criteria, no Sgarbossa criteria -Chest x-ray independent interpreted by me showing bibasilar opacities concerning for atelectasis, possible right pleural effusion, cardiomegaly -Labs reviewed showing anemia 9.4, otherwise D-dimer is elevated at 1870. Electrolytes show slight hyponatremia/hypokalemia. Troponin is mildly elevated with a significantly BMP. This could be related to patient's CHF however also could be related to PE. Will proceed to CTA. -CT reveals no signs of PE additional by bilateral pleural effusions, cardiomegaly, pulmonary edema Will admit for CHF exacerbation at this time, discussed care with Dr. Franco.- Differential diagnosis: See above ER treatment provided: See below Diagnostics interpreted by me: ECG: See above Cardiac Monitoring: An order was placed for continuous cardiac monitoring. The monitor shows a rate of 93 with sinus rhythm. Laboratory studies: As stated above and show below. Imaging studies: See below. Past Med/Surg History Problem List (Updated 12/07/23 @ 01:33 by Gama Frye MD) Hypoxia (Acute) Acute on chronic congestive heart failure (Acute) Norovirus Diverticulosis Anemia (Acute) Acute on chronic diastolic HF (heart failure) Diabetes mellitus, type II, insulin dependent IgG gammopathy Anemia Bilateral lower extremity edema (Acute) CHF (congestive heart failure) (Acute) LBBB (left bundle branch block) Acute heart failure with preserved ejection fraction Hypertensive emergency Elevated troponin (Acute) SOB (shortness of breath) (Acute) Hypertension (Acute) CHF (congestive heart failure) (Acute) Hypoxia (Acute) CKD (chronic kidney disease) (Acute) Elevated troponin (Acute) Hypertension, uncontrolled (Acute) Hypertensive crisis Acute hyponatremia (Acute) Acute hyperglycemia (Acute) JOSE (acute kidney injury) (Acute) Urinary tract infection (Acute) Acute on chronic kidney failure Word finding difficulty Carotid artery stenosis Hypertensive urgency (Acute) Elevated troponin I level (Acute) Anisocoria (Acute) Headache (Acute) More than 50 percent stenosis of right internal carotid artery (Acute) Medical History (Updated 12/07/23 @ 01:33 by Gama Frye MD) Diabetes mellitus with kidney complication, without long-term current use of insulin CKD (chronic kidney disease) stage 3, GFR 30-59 ml/min Anxiety Tingling Headache Hypertensive urgency DM2 (diabetes mellitus, type 2) H/O: HTN (hypertension) Surgical History Hx of cataract surgery Social History Smoking Status: Never smoker Second Hand Exposure: Yes; Do You Dip or Chew Tobacco: No; Hx Alcohol Use: Yes Alcohol type: wine Hx Substance Use: No Preferred Language: Occitan Communication Ability: Effective 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 Beliefs That Will Affect Care: None marital status: / Current Living Situation: Alone Feels Safe at Home: Yes Assistive Devices: Oxygen - at Night and Walker Allergies Allergies Allergy/AdvReac Type Severity Reaction Status Date / Time latex Allergy Severe DIFFICULTY Verified 12/06/23 19:25 BREATHING, TONGUE SWELLS Penicillins Allergy Severe DIFFICULTY Verified 12/06/23 19:25 BREATHING, TONGUE SWELLS Sulfa (Sulfonamide Allergy Severe DIFFICULTY Verified 12/06/23 19:25 Antibiotics) BREATHING, TONGUE SWELLS Home Meds Home Medications Medication Instructions Recorded Confirmed acetaminophen 500 mg tablet 1,000 mg PO Q8 PRN Pain 10/31/21 12/06/23 aspirin 81 mg tablet,delayed 81 mg PO QAM 10/31/21 12/06/23 release repaglinide 2 mg tablet 2 mg PO AC 10/31/21 12/06/23 linagliptin 5 mg tablet (Tradjenta) 5 mg PO DAILY 12/16/21 12/06/23 loratadine 10 mg tablet 10 mg PO HS 12/16/21 12/06/23 atorvastatin 80 mg tablet 80 mg PO HS 09/02/22 12/06/23 empagliflozin 25 mg tablet 25 mg PO DAILY 09/02/22 12/06/23 (Jardiance) coQ10 (ubiquinol) 200 mg capsule 200 mg PO DAILY 08/12/23 12/06/23 insulin degludec 100 unit/mL (3 30 unit subcut QAM 08/12/23 12/06/23 mL) subcutaneous pen (Tresiba FlexTouch U-100 insulin) [id number] 5 mg-zeaxanth 1 cap PO QID 08/12/23 12/06/23 1 mg-bilberry 7.5 mg-herbal capsule ([employer] Health Formula) hydralazine 100 mg tablet 100 mg PO TID 10/30/23 12/06/23 Prevagen 10 mg PO DAILY 12/06/23 12/06/23 amlodipine 10 mg tablet 10 mg PO QAM 12/06/23 12/06/23 melatonin 1 mg tablet,extended 1 mg PO HS 12/06/23 12/06/23 release Previous Rx's Medication Instructions Recorded sertraline 50 mg tablet 25 mg (1/2 x 50 mg) PO QAM #30 tabs 11/08/21 isosorbide dinitrate 30 mg tablet 30 mg PO TID #90 tabs 09/04/22 carvedilol 25 mg tablet 37.5 mg (1.5 x 25 mg) PO BIDM #90 09/07/23 tabs magnesium chloride 64 mg 64 mg PO DAILY #30 tabs 09/07/23 (magnesium chloride) tablet,delayed release (Mag 64) cyanocobalamin (vitamin B-12) 500 500 mcg PO QAM #30 tabs 11/09/23 mcg tablet ferrous sulfate 325 mg (65 mg 325 mg PO QAM #30 tabs 11/09/23 iron) tablet,delayed release folic acid 1 mg tablet 1 mg PO QAM #30 tabs 11/09/23 furosemide 40 mg tablet 40 mg PO QAM #30 tabs 11/09/23 potassium chloride 20 mEq 20 meq PO QAM #30 tabs 11/09/23 tablet,extended release(part/cryst) Results & Data (ED) Vital Signs Vital Signs - 24 hr 12/06/23 17:51 12/06/23 17:51 12/06/23 17:54 Temperature 37.0 C Temperature Source Oral Pulse Rate 83 78 Pulse Rate from SpO2 Sensor 82 Pulse Rhythm Irregular Respiratory Rate 24 20 Respiratory Effort / Characteristics Short of Breath SOB on Exertion Respiratory Depth Normal Respiratory Pattern Regular Blood Pressure 168/98 H Blood Pressure [Right Arm] Blood Pressure Mean 121 Blood Pressure Mean [Right Arm] Blood Pressure Position Standing Pulse Oximetry 95 97 Oxygen Delivery Method Nasal Cannula Nasal Cannula Oxygen Flow Rate 2 2 Sepsis Recent Fever Within 48 Hours No Sepsis New/Unexplained Change in Mental Status No Sepsis Action Taken by Nursing No Action Required 12/06/23 17:55 12/06/23 18:00 12/06/23 18:00 Temperature Temperature Source Pulse Rate 82 83 Pulse Rate from SpO2 Sensor 81 Pulse Rhythm Respiratory Rate 24 Respiratory Effort / Characteristics Respiratory Depth Respiratory Pattern Blood Pressure 161/104 H Blood Pressure [Right Arm] Blood Pressure Mean 133 Blood Pressure Mean [Right Arm] Blood Pressure Position Pulse Oximetry 95 Oxygen Delivery Method Oxygen Flow Rate Sepsis Recent Fever Within 48 Hours Sepsis New/Unexplained Change in Mental Status Sepsis Action Taken by Nursing 12/06/23 18:15 12/06/23 18:29 12/06/23 18:30 Temperature Temperature Source Pulse Rate 78 81 Pulse Rate from SpO2 Sensor 80 64 Pulse Rhythm Respiratory Rate 18 22 Respiratory Effort / Characteristics Respiratory Depth Respiratory Pattern Blood Pressure Blood Pressure [Right Arm] Blood Pressure Mean Blood Pressure Mean [Right Arm] Blood Pressure Position Pulse Oximetry 98 94 96 Oxygen Delivery Method Nasal Cannula Oxygen Flow Rate 2 Sepsis Recent Fever Within 48 Hours Sepsis New/Unexplained Change in Mental Status Sepsis Action Taken by Nursing 12/06/23 18:31 12/06/23 18:45 12/06/23 19:00 Temperature Temperature Source Pulse Rate 84 Pulse Rate from SpO2 Sensor 85 Pulse Rhythm Respiratory Rate 21 Respiratory Effort / Characteristics Respiratory Depth Respiratory Pattern Blood Pressure 174/91 H 173/66 H Blood Pressure [Right Arm] Blood Pressure Mean 143 128 Blood Pressure Mean [Right Arm] Blood Pressure Position Pulse Oximetry 100 Oxygen Delivery Method Oxygen Flow Rate Sepsis Recent Fever Within 48 Hours Sepsis New/Unexplained Change in Mental Status Sepsis Action Taken by Nursing 12/06/23 19:00 12/06/23 19:15 12/06/23 19:21 Temperature Temperature Source Pulse Rate 72 76 77 Pulse Rate from SpO2 Sensor 73 78 75 Pulse Rhythm Respiratory Rate 15 16 20 Respiratory Effort / Characteristics Respiratory Depth Respiratory Pattern Blood Pressure Blood Pressure [Right Arm] Blood Pressure Mean Blood Pressure Mean [Right Arm] Blood Pressure Position Pulse Oximetry 100 98 97 Oxygen Delivery Method Oxygen Flow Rate Sepsis Recent Fever Within 48 Hours Sepsis New/Unexplained Change in Mental Status Sepsis Action Taken by Nursing 12/06/23 19:51 12/06/23 19:52 12/06/23 19:56 Temperature Temperature Source Pulse Rate 85 Pulse Rate from SpO2 Sensor 90 Pulse Rhythm Respiratory Rate 30 H 24 Respiratory Effort / Characteristics SOB on Exertion Respiratory Depth Normal Respiratory Pattern Regular Blood Pressure 176/92 H Blood Pressure [Right Arm] 176/92 H Blood Pressure Mean 139 Blood Pressure Mean [Right Arm] 120 Blood Pressure Position Pulse Oximetry 93 96 Oxygen Delivery Method Nasal Cannula Oxygen Flow Rate 2 Sepsis Recent Fever Within 48 Hours Sepsis New/Unexplained Change in Mental Status Sepsis Action Taken by Nursing 12/06/23 20:03 12/06/23 20:12 12/06/23 21:03 Temperature Temperature Source Pulse Rate 80 79 78 Pulse Rate from SpO2 Sensor 80 75 79 Pulse Rhythm Respiratory Rate 24 19 20 Respiratory Effort / Characteristics Respiratory Depth Respiratory Pattern Blood Pressure Blood Pressure [Right Arm] Blood Pressure Mean Blood Pressure Mean [Right Arm] Blood Pressure Position Pulse Oximetry 97 97 98 Oxygen Delivery Method Oxygen Flow Rate Sepsis Recent Fever Within 48 Hours Sepsis New/Unexplained Change in Mental Status Sepsis Action Taken by Nursing 12/06/23 21:12 12/06/23 21:27 12/06/23 21:39 Temperature Temperature Source Pulse Rate 79 88 81 Pulse Rate from SpO2 Sensor 79 89 83 Pulse Rhythm Respiratory Rate 28 H Respiratory Effort / Characteristics Respiratory Depth Respiratory Pattern Blood Pressure Blood Pressure [Right Arm] Blood Pressure Mean Blood Pressure Mean [Right Arm] Blood Pressure Position Pulse Oximetry 98 94 97 Oxygen Delivery Method Oxygen Flow Rate Sepsis Recent Fever Within 48 Hours Sepsis New/Unexplained Change in Mental Status Sepsis Action Taken by Nursing 12/06/23 21:45 12/06/23 22:08 Temperature Temperature Source Pulse Rate 78 81 Pulse Rate from SpO2 Sensor 78 Pulse Rhythm Respiratory Rate 22 Respiratory Effort / Characteristics Respiratory Depth Respiratory Pattern Blood Pressure 176/82 H Blood Pressure [Right Arm] Blood Pressure Mean 113 Blood Pressure Mean [Right Arm] Blood Pressure Position Pulse Oximetry 97 Oxygen Delivery Method Nasal Cannula Oxygen Flow Rate 2 Sepsis Recent Fever Within 48 Hours Sepsis New/Unexplained Change in Mental Status Sepsis Action Taken by Nursing Laboratory Data 12/06/23 18:00 12/06/23 18:00 Lab Results 12/06/23 12/06/23 Range/Units 18:00 19:55 WBC 8.79 (4.8-10.8) K/ul RBC 3.11 L (4.20-5.40) M/uL Hgb 9.4 L (12.0-16.0) g/dl Hct 29.2 L (37.0-47.0) % MCV 93.9 (80.0-100.0) fL MCH 30.2 (25.0-34.0) pg MCHC 32.2 (32.0-36.0) g/dL RDW Std Deviation 51.9 H (36.4-46.3) fL RDW Coeff of Rojelio 15.1 H (11.5-14.5) % Plt Count 278 (130-400) K/uL MPV 9.4 (9.4-12.4) fL Immature Gran % (Auto) 0.3 % Neut % (Auto) 76.7 % Lymph % (Auto) 14.7 % [place] % (Auto) 7.7 % Eos % (Auto) 0.3 % Baso % (Auto) 0.3 % Neut # (Auto) 6.73 H (1.40-6.50) K/uL Lymph # (Auto) 1.29 (1.20-3.40) K/uL [place] # (Auto) 0.68 H (0.11-0.59) K/uL Eos # (Auto) 0.03 (0.00-0.50) K/uL Baso # (Auto) 0.03 (0.00-0.20) K/uL Immature Gran # (Auto) 0.03 (0.01-0.20) K/uL APTT 37 H (21-31) Seconds PTT Ratio 1.4 D-Dimer 1870 H* (0-500) ug/L FEU Sodium 133 L (136-145) mmol/L Potassium 3.4 L (3.5-5.1) mmol/L Chloride 99 (98-107) mmol/L Carbon Dioxide 24 (21-32) mmol/L Anion Gap 10 (3-11) BUN 21 (6-23) mg/dl Creatinine 1.20 (0.6-1.2) mg/dl Est Cr Clr Drug Dosing 33.0 ml/min Est GFR ( Amer) 46.4 ml/min Est GFR (Non-Af Amer) 40.0 ml/min BUN/Creatinine Ratio 17.5 (10-20) Glucose 134 H (70-99(Fasting)) mg/dl Calcium 9.5 (8.6-10.3) mg/dl Magnesium 1.6 L (1.7-2.4) mg/dl Total Bilirubin 0.8 (0.2-1.0) mg/dl AST 14 (13-39) U/L ALT 10 (7-52) U/L Alkaline Phosphatase 35 (34-104) U/L Troponin I High Sens 26.4 H 27.9 H (0-14) pg/ml B-Natriuretic Peptide 1342 H (0-100) pg/ml Total Protein 7.8 (6.0-8.3) gm/dl Albumin 3.9 (3.4-5.0) gm/dl Globulin 3.9 (2.5-4.0) gm/dl Albumin/Globulin Ratio 1.0 (0.9-2) Lipase 19 (11-82) U/L Administered Medications Acetaminophen (Acetaminophen 325 Mg Tab) 650 mg PO QID PRN PRN Reason: pain/fever Stop: 01/05/24 23:02 Last Admin: 12/07/23 00:28 Dose: 650 mg Documented By: Discontinued Medications Albuterol (Albut/Ipratrop 3mg/0.5mg Neb 3 Ml Vial) 3 ml NEB NOW STA; Protocol Stop: 12/06/23 22:04 Last Admin: 12/06/23 22:24 Dose: 3 ml Documented By: NÉSTOR Carvedilol (Carvedilol 3.125 Mg Tab) 3.125 mg PO NOW STA Stop: 12/06/23 23:04 Last Admin: 12/06/23 23:48 Dose: Not Given Documented By: ERIKA Carvedilol (Carvedilol 12.5 Mg Tab) 37.5 mg PO NOW STA Stop: 12/07/23 00:00 Last Admin: 12/07/23 00:24 Dose: 37.5 mg Documented By: Furosemide (Furosemide 40 Mg/4 Ml Vial) 40 mg IV ONE ONE Stop: 12/06/23 19:37 Last Admin: 12/06/23 19:53 Dose: 40 mg Documented By: NÉSTOR Hydralazine HCl (Hydralazine Tab 50 Mg Tab) 100 mg PO NOW STA Stop: 12/06/23 22:05 Last Admin: 12/06/23 22:49 Dose: 100 mg Documented By: NÉSTOR Ioversol (Optiray 320 125ml) 120 ml IV ONCE ONE Stop: 12/06/23 19:38 Last Admin: 12/06/23 19:41 Dose: 120 ml Documented By: JACQUI Isosorbide Mononitrate (Isosorbide [place] Extended Rel 30 Mg Tabcr) 30 mg PO NOW STA Stop: 12/06/23 23:08 Last Admin: 12/06/23 23:45 Dose: 30 mg Documented By: ERIKA Potassium Chloride (Potassium Chloride Crtab 20 Meq Tabcr) 40 meq PO NOW STA Stop: 12/06/23 22:07 Last Admin: 12/06/23 22:24 Dose: 40 meq Documented By: NÉSTOR Imaging Data Radiologist's Impression: Chest X-Ray 12/06/23 17:59 XR chest 1V portable CLINICAL HISTORY: Chest pain, nonspecific TECHNIQUE: Single frontal radiograph of the chest was obtained. Comparison: Comparison is made to chest radiograph 10/30/2023 FINDINGS: No lines and tubes are seen. Cardiomegaly is noted. The aortic arch is calcified. Bilateral lower lung predominant airspace opacities are seen. Small left pleural effusion is seen. IMPRESSION: Bilateral lower lung predominant airspace opacities which may represent atelectasis, pneumonia, and/or aspiration. Small left pleural effusion. ACT 112: Negative or not required by law. Electronically signed by: Jerry Dejesus M.D. 12/06/2023 7:44 PM Chest CTA 12/06/23 19:00 CT angio chest PE protocol CLINICAL HISTORY: PE TECHNIQUE: Multidetector row helical CT of the chest was performed with angiographic protocol. Coronal and sagittal reformations were obtained. Coronal and sagittal MIPS were obtained from the axial data set and were submitted for review. Automated dose lowering techniques and/or adjustment according to patient size were utilized for this exam. CT DOSE: 853.37 mGy.cm Comparison: Comparison is made to chest radiograph 12/06/2023 FINDINGS: Lungs and pleura: Small bilateral pleural effusions are seen. Interlobular septal thickening is seen and there is bronchial wall thickening. Heart and pericardium: Cardiomegaly is seen with biatrial enlargement. Vessels: No evidence of pulmonary embolism. Moderate atherosclerotic disease is seen. Mediastinum and rin: Mediastinal lymph nodes measure up to 12 mm in diameter. Chest wall and lower neck: Unremarkable. Abdomen: A hiatal hernia is seen. Bones: Degenerative changes in the thoracic spine. IMPRESSION: 1. No evidence of pulmonary embolus. 2. Cardiomegaly and likely moderate edema. 3. Small bilateral pleural effusions with underlying atelectasis. 4. Bladder wall thickening compatible with infectious/inflammatory airways disease and reactive lymphadenopathy. ACT 112: Negative or not required by law. Electronically signed by: Jerry Dejesus M.D. 12/06/2023 9:19 PM Discharge Plan Visit Data Chief Complaint: Chest Pain Stated Complaint: SOB, CHEST PAIN ED Provider: Gama Frye Discharge Problem: Acute on chronic congestive heart failure, Hypoxia Patient Disposition: Admitted As Inpatient Discharge Instructions Interventions: ED Discharge Assessment Last Done: 12/07/23 01:02
[2023-12-06 18:40] LABS: Troponin I High Sensitivity 26.4 pg/ml (0-14)
[2023-12-06 19:13] LABS: D Dimer 1870 ug/L FEU (0-500)
[2023-12-06] MEDS: OPTIRAY 320 125ml IV ONE (19:41)
--- NOTE | 2023-12-06 19:45 | XRay Report ---
XR chest 1V portable CLINICAL HISTORY: Chest pain, nonspecific TECHNIQUE: Single frontal radiograph of the chest was obtained. Comparison: Comparison is made to chest radiograph 10/30/2023 FINDINGS: No lines and tubes are seen. Cardiomegaly is noted. The aortic arch is calcified. Bilateral lower beth g predominant airspace opacities are seen. Small left pleural effusion is seen. IMPRESSION: Bilateral lower lung predominant airspace opacities which may represent atelectasis, pneumonia, and/o r aspiration. Small left pleural effusion. ACT 112: Negative or not required by law. Electronically signed by: Jerry Dejesus M.D. 12/06/2023 7:44 PM
[2023-12-06] MEDS: FUROSEMIDE 40 MG/4 ML VIAL IV ONE (19:53)
[2023-12-06 20:32] LABS: Troponin I High Sensitivity 27.9 pg/ml (0-14)
--- NOTE | 2023-12-06 21:20 | CT Scan Report ---
CT angio chest PE protocol CLINICAL HISTORY: PE TECHNIQUE: Multidetector row helical CT of the chest was performed with angiographic protocol. Ramirez l and sagittal reformations were obtained. Coronal and sagittal MIPS were obtained from the axial noé a set and were submitted for review. Automated dose lowering techniques and/or adjustment according to patient size were utilized for this exam. CT DOSE: 853.37 mGy.cm Comparison: Comparison is made to chest radiograph 12/06/2023 FINDINGS: Lungs and pleura: Small bilateral pleural effusions are seen. Interlobular septal thickening is seen and there is bronchial wall thickening. Heart and pericardium: Cardiomegaly is seen with biatrial enlargement. Vessels: No evidence of pulmonary embolism. Moderate atherosclerotic disease is seen. Mediastinum and rin: Mediastinal lymph nodes measure up to 12 mm in diameter. Chest wall and lower neck: Unremarkable. Abdomen: A hiatal hernia is seen. Bones: Degenerative changes in the thoracic spine. IMPRESSION: 1. No evidence of pulmonary embolus. 2. Cardiomegaly and likely moderate edema. 3. Small bilateral pleural effusions with underlying atelectasis. 4. Bladder wall thickening compatible with infectious/inflammatory airways disease and reactive lymp hadenopathy. ACT 112: Negative or not required by law. Electronically signed by: Jerry Dejesus M.D. 12/06/2023 9:19 PM
[2023-12-06 22:23] LABS: Magnesium 1.6 mg/dl (1.7-2.4)
[2023-12-06] MEDS: ALBUT/IPRATROP 3MG/0.5MG NEB 3 ML VIAL NEB STA (22:24)
[2023-12-06] MEDS: POTASSIUM CHLORIDE CRTAB 20 MEQ TABCR PO STA (22:24)
[2023-12-06 22:27] LABS: Partial Thromboplastin Ratio 1.4; Partial Thromboplastin Time 37 Seconds (21-31)
[2023-12-06] MEDS: hydrALAZINE TAB 50 MG TAB PO STA (22:49)
--- NOTE | 2023-12-06 22:58 | History & Physical Report ---
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 Lovenox subcu Full code Text document was generated using [employer] voice recognition software. It may contain grammatical or spelling errors. Kindly contact undersigned for clarification of any documentation item in que stion. History of Present Illness Chief Complaint: Chest pain, SOB Primary Care Provider: Dalila Bauman MD History obtained from patient and records. Medical history significant for chronic diastolic heart failure (EF 65%, TTE 2023), LBBB, PVD, hypertension, hyperlipidemia, DM 2 insulin requiring, CRI (baseline creatinine 1.7), chronic hyponatremia, chronic anemia (baseline hemoglobin 8-9), MGUS, familial hypocalciuric hypercalcemia, mood disorder. Monthly confinements since August 2023. Recent confinement October 29 to November 09, 2023 for decompensated heart failure, norovirus infection. 3 days ago, patient noted cough symptoms productive of white sputum with some chills. Not sure about sick contacts after attending family gathering last week. Denies aspiration. Patient later noted shortness of breath even at rest and worse on lying down. Chest heaviness at the level of her diaphragm like somebody sitting on her chest. Compliant with home medications. Not sure about weight gain. Denies leg swelling. Compliant with daily 2 L fluid restriction No unusual headache symptoms. SBP 1 50-1 60s at home. Patient consulted ER for evaluation. IV Lasix administered at the ER. 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 Allergies Allergy/AdvReac Type Severity Reaction Status Date / Time latex Allergy Severe DIFFICULTY Verified 06/02/24 19:25 BREATHING, TONGUE SWELLS Penicillins Allergy Severe DIFFICULTY Verified 12/06/23 19:25 BREATHING, TONGUE SWELLS Sulfa (Sulfonamide Allergy Severe DIFFICULTY Verified 12/06/23 19:25 Antibiotics) BREATHING, TONGUE SWELLS Home Medications Medication Instructions Recorded Confirmed Type acetaminophen 500 mg tablet 1,000 mg PO Q8 PRN Pain 10/31/21 12/06/23 History aspirin 81 mg tablet,delayed 81 mg PO QAM 10/31/21 12/06/23 History release repaglinide 2 mg tablet 2 mg PO AC 10/31/21 12/06/23 History sertraline 50 mg tablet 25 mg (1/2 x 50 mg) PO QAM #30 tabs 11/08/21 12/06/23 Rx linagliptin 5 mg tablet (Tradjenta) 5 mg PO DAILY 12/16/21 12/06/23 History loratadine 10 mg tablet 10 mg PO HS 12/16/21 12/06/23 History atorvastatin 80 mg tablet 80 mg PO HS 09/02/22 12/06/23 History empagliflozin 25 mg tablet 25 mg PO DAILY 09/02/22 12/06/23 History (Jardiance) isosorbide dinitrate 30 mg tablet 30 mg PO TID #90 tabs 09/04/22 12/06/23 Rx coQ10 (ubiquinol) 200 mg capsule 200 mg PO DAILY 08/12/23 12/06/23 History insulin degludec 100 unit/mL (3 30 unit subcut QAM 08/12/23 12/06/23 History mL) subcutaneous pen (Tresiba FlexTouch U-100 insulin) lrlqukoc-jeb-zcpzcg 5 mg-zeaxanth 1 cap PO QID 08/12/23 12/06/23 History 1 mg-bilberry 7.5 mg-herbal capsule (Macular Health Formula) carvedilol 25 mg tablet 37.5 mg (1.5 x 25 mg) PO BIDM #90 09/07/23 12/06/23 Rx tabs magnesium chloride 64 mg 64 mg PO DAILY #30 tabs 09/07/23 12/06/23 Rx (magnesium chloride) tablet,delayed release (Mag 64) hydralazine 100 mg tablet 100 mg PO TID 10/30/23 12/06/23 History cyanocobalamin (vitamin B-12) 500 500 mcg PO QAM #30 tabs 24 12/06/23 Rx mcg tablet ferrous sulfate 325 mg (65 mg 325 mg PO QAM #30 tabs 11/09/23 12/06/23 Rx iron) tablet,delayed release folic acid 1 mg tablet 1 mg PO QAM #30 tabs 11/09/23 12/06/23 Rx furosemide 40 mg tablet 40 mg PO QAM #30 tabs 11/09/23 12/06/23 Rx potassium chloride 20 mEq 20 meq PO QAM #30 tabs 11/09/23 12/06/23 Rx tablet,extended release(part/cryst) Prevagen 10 mg PO DAILY 12/06/23 12/06/23 History amlodipine 10 mg tablet 10 mg PO QAM 12/06/23 12/06/23 History melatonin 1 mg tablet,extended 1 mg PO HS 12/06/23 12/06/23 History release Past Med/Surg History Problem List Hypoxia (Acute) Acute on chronic congestive heart failure (Acute) Norovirus Diverticulosis Anemia (Acute) Acute on chronic diastolic HF (heart failure) Diabetes mellitus, type II, insulin dependent IgG gammopathy Anemia Bilateral lower extremity edema (Acute) CHF (congestive heart failure) (Acute) LBBB (left bundle branch block) Acute heart failure with preserved ejection fraction Hypertensive emergency Elevated troponin (Acute) SOB (shortness of breath) (Acute) Hypertension (Acute) CHF (congestive heart failure) (Acute) Hypoxia (Acute) CKD (chronic kidney disease) (Acute) Elevated troponin (Acute) Hypertension, uncontrolled (Acute) Hypertensive crisis Acute hyponatremia (Acute) Acute hyperglycemia (Acute) JOSE (acute kidney injury) (Acute) Urinary tract infection (Acute) Acute on chronic kidney failure Word finding difficulty Carotid artery stenosis Hypertensive urgency (Acute) Elevated troponin I level (Acute) Anisocoria (Acute) Headache (Acute) More than 50 percent stenosis of right internal carotid artery (Acute) Medical History Diabetes mellitus with kidney complication, without long-term current use of insulin CKD (chronic kidney disease) stage 3, GFR 30-59 ml/min Anxiety Tingling Headache Hypertensive urgency DM2 (diabetes mellitus, type 2) H/O: HTN (hypertension) Surgical History Hx of cataract surgery Social History Smoking Status: Never smoker Second Hand Exposure: Yes; Do You Dip or Chew Tobacco: No; Hx Alcohol Use: Yes Alcohol type: wine Hx Substance Use: No Preferred Language: Ghanaian Communication Ability: Effective Barrel Roller Required: No Beliefs That Will Affect Care: None marital status: / Current Living Situation: Alone Other Information That Helps Us Care for You: No Feels Safe at Home: Yes Safety Concerns: Feels Safe At This Time Assistive Devices: Oxygen - at Night and Walker Review of Systems Review of Systems: As per HPI, all other systems reviewed and negative Physical Exam Physical Exam: GENERAL: Slightly uncomfortable, pleasant, looks younger than stated age, anxious, obese, minimal respiratory distress SKIN: Normal color, warm HEENT: Arthur palpebral conjunctivae, no ptosis, moist buccal mucosa, nasal cannula in place NECK : Supple, short neck, no tenderness CHEST : Decreased breath sounds, no tenderness HEART : RRR, no obvious murmurs ABDOMEN: Some distention, nontender EXTREMITIES : Minimal LE swelling, no LE tenderness, no other conspicuous deformities noted NEUROLOGIC : Coherent, no facial asymmetry, no other gross focality, slightly hard of hearing Results & Data Results & Data Vital Signs (Past 12 Hours) Vital Signs Temp Pulse Resp BP BP Pulse Ox O2 Del Method 12/06/23 22:08 81 12/06/23 21:45 78 22 176/82 H 97 Nasal Cannula 12/06/23 21:39 81 97 12/06/23 21:27 88 94 12/06/23 21:12 79 28 H 98 12/06/23 21:03 78 20 98 12/06/23 20:12 79 19 97 12/06/23 20:03 80 24 97 12/06/23 19:56 24 176/92 H 96 Nasal Cannula 12/06/23 19:52 176/92 H 12/06/23 19:51 85 30 H 93 12/06/23 19:21 77 20 97 12/06/23 19:15 76 16 98 12/06/23 19:00 72 15 100 12/06/23 19:00 173/66 H 12/06/23 18:45 84 21 100 12/06/23 18:31 174/91 H 12/06/23 18:30 81 22 96 12/06/23 18:29 94 Nasal Cannula 12/06/23 18:15 78 18 98 12/06/23 18:00 83 24 95 12/06/23 18:00 161/104 H 12/06/23 17:55 82 12/06/23 17:54 78 20 97 12/06/23 17:51 Nasal Cannula 12/06/23 17:51 37.0 C 83 24 168/98 H 95 Nasal Cannula O2 Flow Rate 12/06/23 22:08 12/06/23 21:45 2 12/06/23 21:39 12/06/23 21:27 12/06/23 21:12 12/06/23 21:03 12/06/23 20:12 12/06/23 20:03 12/06/23 19:56 2 12/06/23 19:52 12/06/23 19:51 12/06/23 19:21 12/06/23 19:15 12/06/23 19:00 12/06/23 19:00 12/06/23 18:45 12/06/23 18:31 12/06/23 18:30 12/06/23 18:29 2 12/06/23 18:15 12/06/23 18:00 12/06/23 18:00 12/06/23 17:55 12/06/23 17:54 12/06/23 17:51 2 12/06/23 17:51 2 Laboratory Results Laboratory Results WBC 8.79 K/ul (4.8-10.8) 12/06/23 18:00 RBC 3.11 M/uL (4.20-5.40) L 12/06/23 18:00 Hgb 9.4 g/dl (12.0-16.0) L 12/06/23 18:00 Hct 29.2 % (37.0-47.0) L 12/06/23 18:00 MCV 93.9 fL (80.0-100.0) 12/06/23 18:00 MCH 30.2 pg (25.0-34.0) 12/06/23 18:00 MCHC 32.2 g/dL (32.0-36.0) 12/06/23 18:00 RDW Std Deviation 51.9 fL (36.4-46.3) H 12/06/23 18:00 RDW Coeff of Rojelio 15.1 % (11.5-14.5) H 12/06/23 18:00 Plt Count 278 K/uL (130-400) 12/06/23 18:00 MPV 9.4 fL (9.4-12.4) 12/06/23 18:00 Immature Gran % (Auto) 0.3 % 12/06/23 18:00 Neut % (Auto) 76.7 % 12/06/23 18:00 Lymph % (Auto) 14.7 % 12/06/23 18:00 Graham % (Auto) 7.7 % 12/06/23 18:00 Eos % (Auto) 0.3 % 12/06/23 18:00 Baso % (Auto) 0.3 % 12/06/23 18:00 Neut # (Auto) 6.73 K/uL (1.40-6.50) H 12/06/23 18:00 Lymph # (Auto) 1.29 K/uL (1.20-3.40) 12/06/23 18:00 Graham # (Auto) 0.68 K/uL (0.11-0.59) H 12/06/23 18:00 Eos # (Auto) 0.03 K/uL (0.00-0.50) 12/06/23 18:00 Baso # (Auto) 0.03 K/uL (0.00-0.20) 12/06/23 18:00 Immature Gran # (Auto) 0.03 K/uL (0.01-0.20) 12/06/23 18:00 APTT 37 Seconds (21-31) H 12/06/23 18:00 PTT Ratio 1.4 12/06/23 18:00 D-Dimer 1870 ug/L FEU (0-500) H* 12/06/23 18:00 Sodium 133 mmol/L (136-145) L 12/06/23 18:00 Potassium 3.4 mmol/L (3.5-5.1) L 12/06/23 18:00 Chloride 99 mmol/L (98-107) 12/06/23 18:00 Carbon Dioxide 24 mmol/L (21-32) 12/06/23 18:00 Anion Gap 10 (3-11) 12/06/23 18:00 BUN 21 mg/dl (6-23) 12/06/23 18:00 Creatinine 1.20 mg/dl (0.6-1.2) 12/06/23 18:00 Est Cr Clr Drug Dosing 33.0 ml/min 12/06/23 18:00 Est GFR ( Amer) 46.4 ml/min 12/06/23 18:00 Est GFR (Non-Af Amer) 40.0 ml/min 12/06/23 18:00 BUN/Creatinine Ratio 17.5 (10-20) 12/06/23 18:00 Glucose 134 mg/dl (70-99(Fasting)) H 12/06/23 18:00 Calcium 9.5 mg/dl (8.6-10.3) 12/06/23 18:00 Magnesium 1.6 mg/dl (1.7-2.4) L 12/06/23 19:55 Total Bilirubin 0.8 mg/dl (0.2-1.0) 12/06/23 18:00 AST 14 U/L (13-39) 12/06/23 18:00 ALT 10 U/L (7-52) 12/06/23 18:00 Alkaline Phosphatase 35 U/L (34-104) 12/06/23 18:00 Troponin I High Sens 27.9 pg/ml (0-14) H 12/06/23 19:55 B-Natriuretic Peptide 1342 pg/ml (0-100) H 12/06/23 18:00 Total Protein 7.8 gm/dl (6.0-8.3) 12/06/23 18:00 Albumin 3.9 gm/dl (3.4-5.0) 12/06/23 18:00 Globulin 3.9 gm/dl (2.5-4.0) 12/06/23 18:00 Albumin/Globulin Ratio 1.0 (0.9-2) 12/06/23 18:00 Lipase 19 U/L (11-82) 12/06/23 18:00 Impressions Chest X-Ray 12/06/23 17:59 XR chest 1V portable CLINICAL HISTORY: Chest pain, nonspecific TECHNIQUE: Single frontal radiograph of the chest was obtained. Comparison: Comparison is made to chest radiograph 10/30/2023 FINDINGS: No lines and tubes are seen. Cardiomegaly is noted. The aortic arch is calcified. Bilateral lower lung predominant airspace opacities are seen. Small left pleural effusion is seen. IMPRESSION: Bilateral lower lung predominant airspace opacities which may represent atelectasis, pneumonia, and/or aspiration. Small left pleural effusion. ACT 112: Negative or not required by law. Electronically signed by: Jerry Dejesus M.D. 12/06/2023 7:44 PM Chest CTA 12/06/23 19:00 CT angio chest PE protocol CLINICAL HISTORY: PE TECHNIQUE: Multidetector row helical CT of the chest was performed with angiographic protocol. Coronal and sagittal reformations were obtained. Coronal and sagittal MIPS were obtained from the axial data set and were submitted for review. Automated dose lowering techniques and/or adjustment according to patient size were utilized for this exam. CT DOSE: 853.37 mGy.cm Comparison: Comparison is made to chest radiograph 12/06/2023 FINDINGS: Lungs and pleura: Small bilateral pleural effusions are seen. Interlobular septal thickening is seen and there is bronchial wall thickening. Heart and pericardium: Cardiomegaly is seen with biatrial enlargement. Vessels: No evidence of pulmonary embolism. Moderate atherosclerotic disease is seen. Mediastinum and rin: Mediastinal lymph nodes measure up to 12 mm in diameter. Chest wall and lower neck: Unremarkable. Abdomen: A hiatal hernia is seen. Bones: Degenerative changes in the thoracic spine. IMPRESSION: 1. No evidence of pulmonary embolus. 2. Cardiomegaly and likely moderate edema. 3. Small bilateral pleural effusions with underlying atelectasis. 4. Bladder wall thickening compatible with infectious/inflammatory airways disease and reactive lymphadenopathy. ACT 112: Negative or not required by law. Electronically signed by: Jerry Dejesus M.D. 12/06/2023 9:19 PM Diagnostic Findings EKG as per my interpretation :Rate 80, NSR, LAD, LAFB, LBBB, PVCs
[2023-12-06] MEDS ORDERED: PROMETHAZINE HCL 6.25 MG in SODIUM CHLORIDE 0.9% 50 ML IV PRN (23:03)
[2023-12-06] MEDS ORDERED: traMADol HCL 50 MG TABLET PO PRN (23:03)
[2023-12-06] MEDS: ISOSORBIDE MONO EXTENDED REL 30 MG TABCR PO STA (23:45)
[2023-12-06] MEDS: carvediloL 3.125 MG TAB PO STA (23:48)
[2023-12-06 23:53] LABS: Base Excess VBG 2.2 mEq/L; HCO3 VBG 25 mmol/L; PCO2 VBG 34 mmHg (38-50); PO2 VBG 52 mmHg; pH VBG 7.48 (7.36-7.41)
[2023-12-07] MEDS: carvediloL 12.5 MG TAB PO STA (00:24)
[2023-12-07] MEDS: ACETAMINOPHEN 325 MG TAB PO PRN (00:28)
[2023-12-07 00:47] LABS: Adenovirus PCR Not Detected (NotDetected); Bordetella parapertussis PCR Not Detected (NotDetected); Bordetella pertussis PCR Not Detected (NotDetected); Chlamydia pneumoniae PCR Not Detected (NotDetected); Coronavirus 229E PCR Not Detected (NotDetected); Coronavirus CoV-2 (COVID19)PCR Not Detected (NotDetected); Coronavirus HKU1 PCR Not Detected (NotDetected); Coronavirus NL63 PCR Not Detected (NotDetected); Coronavirus OC43PCR Not Detected (NotDetected); Human Metapneumovirus PCR Not Detected (NotDetected); Influenza A PCR Not Detected (NotDetected); Influenza B PCR Not Detected (NotDetected); Mycoplasma pneumoniae PCR Not Detected (NotDetected); Parainfluenza Virus 1 PCR Not Detected (NotDetected); Parainfluenza Virus 2 PCR Not Detected (NotDetected); Parainfluenza Virus 3 PCR Not Detected (NotDetected); Parainfluenza Virus 4 PCR Not Detected (NotDetected); Respiratory Syncytial VirusPCR Not Detected (NotDetected); Rhinovirus/Enterovirus PCR Not Detected (NotDetected)
[2023-12-07] MEDS ORDERED: DEXTROSE 50% 50 ML SYRINGE IV PRN (01:03)
[2023-12-07] MEDS ORDERED: CARBOHYDRATES FOR HYPOGLYCEMIA PO PRN (01:03)
[2023-12-07] MEDS ORDERED: GLUCOSE 10 TAB/TUBE PO PRN (01:03)
[2023-12-07] MEDS ORDERED: GLUCOSE 40% GEL 15 GM TUBE PO PRN (01:03)
[2023-12-07] MEDS ORDERED: GLUCAGON FOR INJ 1 MG VIAL SQ PRN (01:03)
[2023-12-07] MEDS ORDERED: MELATONIN 1 MG PO SCH (01:03)
--- OUTSIDE RECORDS SUMMARY | 2023-12-07 01:22 | External Medical Summary ---
Author Name Unknown Address Unknown Organization : Laboratory Report Ordering Provider Test Date Status SHADI FELIX 11/26/2023 11:54:55 Final Observation Date Value Abnormality Reference (Units ) Status Beta-2 Microglobulin 11/26/2023 11:54:55 6.95 Above high normal <=2.51 (mg/L) Final
Test Performed at:
[id number]
[id number]
[place] [address]
Alber Santiago M.D., Ph.D.,Director of Laboratories Performing Location
[2023-12-07] MEDS: INSULIN ASPART PER UNIT CHARGE SC SCH (01:32)
[2023-12-07] MEDS: MAGNESIUM SULFATE / D5W 1 GM/100 ML BAG IV SCH (02:46)
[2023-12-07 04:46] LABS: Basophils # (auto) 0.04 K/uL (0.00-0.20); Basophils % (auto) 0.4 %; Eosinophils # (auto) 0.02 K/uL (0.00-0.50); Eosinophils % (auto) 0.2 %; Hemoglobin 8.2 g/dl (12.0-16.0); Immature Granulocytes # (auto) 0.03 K/uL (0.01-0.20); Immature Granulocytes % (auto) 0.3 %; Lymphocytes # (auto) 1.21 K/uL (1.20-3.40); Lymphocytes % (auto) 13.3 %; Mean Corpuscular Hemoglobin 30.3 pg (25.0-34.0); Mean Corpuscular Hgb Conc 32.8 g/dL (32.0-36.0); Mean Corpuscular Volume 92.3 fL (80.0-100.0); Mean Platelet Volume 9.6 fL (9.4-12.4); Monocytes # (auto) 0.78 K/uL (0.11-0.59); Monocytes % (auto) 8.6 %; Neutrophils # (auto) 7.01 K/uL (1.40-6.50); Neutrophils % (auto) 77.2 %; Platelet Count 266 K/uL (130-400); RDW Coefficient of Variation 15.4 % (11.5-14.5); RDW Standard Deviation 51.7 fL (36.4-46.3); Red Blood Count 2.71 M/uL (4.20-5.40); White Blood Count 9.09 K/ul (4.8-10.8)
[2023-12-07 04:57] LABS: BUN Creatinine Ratio 15.5 (10-20); Calcium 8.9 mg/dl (8.6-10.3); Creatinine Clr Calc Pharmacy 27.8 ml/min; Est GFR (African American) 37.9 ml/min; Est GFR (Non-African American) 32.7 ml/min; Magnesium 1.8 mg/dl (1.7-2.4); Potassium 3.3 mmol/L (3.5-5.1)
[2023-12-07] MEDS: ISOSORBIDE DINITRATE 20 MG TAB PO SCH ×2 (08:47→12:32)
[2023-12-07] MEDS: carvediloL 12.5 MG TAB PO SCH (08:48)
[2023-12-07] MEDS: POTASSIUM CHLORIDE CRTAB 20 MEQ TABCR PO ONE ×2 (08:48→14:17)
[2023-12-07] MEDS: hydrALAZINE TAB 50 MG TAB PO SCH (08:49)
[2023-12-07] MEDS: ASPIRIN 81 MG ECTAB PO SCH (08:49)
[2023-12-07] MEDS: FOLIC ACID 1 MG TAB PO SCH (08:50)
[2023-12-07] MEDS: CYANOCOBALAMIN (B-12) 500 MCG TABLET PO SCH (08:50)
[2023-12-07] MEDS: MAGNESIUM CHLORIDE W/CALCIUM 64MG DELAYED REL TAB PO SCH (08:50)
[2023-12-07] MEDS: ENOXAPARIN INJ 40 MG/0.4 ML SYR SQ SCH (08:53)
[2023-12-07] MEDS: amLODIPine BESYLATE 5 MG TAB PO SCH (08:56)
[2023-12-07] MEDS: POTASSIUM CHLORIDE CRTAB 20 MEQ TABCR PO SCH (08:57)
[2023-12-07] MEDS ORDERED: SERTRALINE HCL 50 MG TABLET PO SCH (09:00)
[2023-12-07] MEDS ORDERED: NON-FORMULARY MEDICATION (Mv-Mn-Lutein-Zeax-Bilber-Hb277 [Macular Health Formula] 5-1-7.5 PO SCH (09:00)
[2023-12-07] MEDS: SERTRALINE HCL 50 MG TABLET PO SCH (09:30)
[2023-12-07] MEDS: LANTUS PER UNIT CHARGE SC SCH (09:45)
--- NOTE | 2023-12-07 10:41 | Cardiology Consultation ---
Date of Consultation December 07, 2023 Assessment & Plan (1) Acute on chronic congestive heart failure: (2) Hypoxia: (3) Anemia: (4) LBBB (left bundle branch block): (5) Elevated troponin: (6) Hypertension, uncontrolled: Plan 88 year old female admitted with signs and symptoms of acute decompensated congestive heart failure with associated hypoxemia and uncontrolled hypertension. Patient with longstanding history of hypertension, diastolic heart failure, stage III chronic kidney disease, atherosclerotic carotid disease, renal artery stenosis, presumed underlying coronary artery disease. Troponin mildly elevated likely secondary to demand ischemia in the setting of acute decompensated heart failure, hypertension, CKD. Symptoms improved following breathing treatment as well as IV Lasix. Hyponatremia remains mild and stable. Hypokalemia to be corrected prior to additional IV furosemide administration Recommendations: Supplement potassium orally Additional IV furosemide later today, after correcting hypokalemia Refer for resting echocardiography to assess LV systolic function Increase carvedilol and Isordil for additional blood pressure control Monitor fluid balance, daily weight, GFR, and electrolytes. Avoid thiazide diuretic, ANANT, ARB, Entresto, spironolactone and eplerenone due to renal dysfunction, solitary functional kidney, past poor tolerance. Conservative cardiac medical management requested by patient. 2-Step oxygen assessment prior to discharge. Further recommendations pending the above, evaluation by Dr. Lazaro, and patient's hospital course. I spent a total of 60 minutes on the date of service in preparation, delivery, and documentation of the care provided to this patient excluding any time spent in the performance of separately billed services. This visit was a split-shared visit with the substantive portion of the medical decision making performed by the supervising fine dining server/billing provider. Supervising Physician Co-Signing Physician Notes Attending attestation: Case reviewed with the advanced practitioner. I have personally performed a history and physical examination on the patient. I have reviewed the advanced practitioner's documentation on the date of service referenced in note, and I agree with, and take responsibility for the plan of care. I spent a total of 20 minutes coordinating, documenting, and providing care for this patient excluding time spent in the performance of separately billed services or time spent by another provider. Martinez Lazaro, History of Present Illness Reason for Consultation: CHF Requesting Physician: Dr. Ramos Attending Physician: Dr. King History of Present Illness Ramila Urrutia is a very pleasant [id number]-year-old female who presented to the [facility] ER on December 06, 2023 with complaints of acute on chronic dyspnea as well as "a precipitous drop in oxygen readings with movement." Additional signs/symptoms include cough productive of sputum, chest heaviness, orthopnea, mild lower extremity peripheral edema, possible preceding respiratory illness. Blood pressure elevated on presentation and throughout hospitalization thus far with systolic readings in the 160-190 range, diastolic readings in the 60s to 104 mmHg. EKG revealed sinus rhythm at 80 bpm with frequent premature ventricular complexes, left axis deviation, chronic left bundle branch block. High-sensitivity troponin elevated as follows: 26.4, 27.9, 34.0, 40.9 pg/mL. B natruretic peptide 1342. Hemoglobin 8.2 g/dL this AM. Chest imaging with cardiomegaly and likely moderate edema, small bilateral pleural effusions with underlying atelectasis Patient notes improvement following breathing treatment and IV furosemide. Mild hyponatremia (133 mmol/L) noted along with hypokalemia with a potassium of 3.3 mmol/L this AM. Patient notes request for conservative cardiac medical management. Allergies Allergy/AdvReac Type Severity Reaction Status Date / Time latex Allergy Severe DIFFICULTY Verified 12/06/23 19:25 BREATHING, TONGUE SWELLS Penicillins Allergy Severe DIFFICULTY Verified 12/06/23 19:25 BREATHING, TONGUE SWELLS Sulfa (Sulfonamide Allergy Severe DIFFICULTY Verified 12/06/23 19:25 Antibiotics) BREATHING, TONGUE SWELLS Home Medications Medication Instructions Recorded Confirmed Type acetaminophen 500 mg tablet 1,000 mg PO Q8 PRN Pain 10/31/21 12/06/23 History aspirin 81 mg tablet,delayed 81 mg PO QAM 10/31/21 12/06/23 History release repaglinide 2 mg tablet 2 mg PO AC 10/31/21 12/06/23 History sertraline 50 mg tablet 25 mg (1/2 x 50 mg) PO QAM #30 tabs 11/08/21 12/06/23 Rx linagliptin 5 mg tablet (Tradjenta) 5 mg PO DAILY 12/16/21 12/06/23 History loratadine 10 mg tablet 10 mg PO HS 12/16/21 12/06/23 History atorvastatin 80 mg tablet 80 mg PO HS 09/02/22 12/06/23 History empagliflozin 25 mg tablet 25 mg PO DAILY 09/02/22 12/06/23 History (Jardiance) isosorbide dinitrate 30 mg tablet 30 mg PO TID #90 tabs 09/04/22 12/06/23 Rx coQ10 (ubiquinol) 200 mg capsule 200 mg PO DAILY 08/12/23 12/06/23 History insulin degludec 100 unit/mL (3 30 unit subcut QAM 08/12/23 12/06/23 History mL) subcutaneous pen (Tresiba FlexTouch U-100 insulin) ouwwfgoo-[id number] 5 mg-zeaxanth 1 cap PO QID 08/12/23 12/06/23 History 1 mg-bilberry 7.5 mg-herbal capsule ([facility] Formula) carvedilol 25 mg tablet 37.5 mg (1.5 x 25 mg) PO BIDM #90 09/07/23 12/06/23 Rx tabs magnesium chloride 64 mg 64 mg PO DAILY #30 tabs 09/07/23 12/06/23 Rx (magnesium chloride) tablet,delayed release (Mag 64) hydralazine 100 mg tablet 100 mg PO TID 10/30/23 12/06/23 History cyanocobalamin (vitamin B-12) 500 500 mcg PO QAM #30 tabs 11/09/23 12/06/23 Rx mcg tablet ferrous sulfate 325 mg (65 mg 325 mg PO QAM #30 tabs 11/09/23 12/06/23 Rx iron) tablet,delayed release folic acid 1 mg tablet 1 mg PO QAM #30 tabs 24 12/06/23 Rx furosemide 40 mg tablet 40 mg PO QAM #30 tabs 24 12/06/23 Rx potassium chloride 20 mEq 20 meq PO QAM #30 tabs 11/09/23 12/06/23 Rx tablet,extended release(part/cryst) Prevagen 10 mg PO DAILY 12/06/23 12/06/23 History amlodipine 10 mg tablet 10 mg PO QAM 12/06/23 12/06/23 History melatonin 1 mg tablet,extended 1 mg PO HS 12/06/23 12/06/23 History release Patient History Medical History Diabetes mellitus with kidney complication, without long-term current use of insulin CKD (chronic kidney disease) stage 3, GFR 30-59 ml/min Anxiety Tingling Headache Hypertensive urgency DM2 (diabetes mellitus, type 2) H/O: HTN (hypertension) Surgical History Hx of cataract surgery Social History Smoking Status: Never smoker Second Hand Exposure: Yes; Do You Dip or Chew Tobacco: No; Hx Alcohol Use: Yes Alcohol type: wine Hx Substance Use: No Preferred Language: Maltese Communication Ability: Effective Sorter Lumber Straightener Required: No Beliefs That Will Affect Care: None marital status: / Current Living Situation: Alone Other Information That Helps Us Care for You: No Feels Safe at Home: Yes Safety Concerns: Feels Safe At This Time Assistive Devices: Oxygen - at Night and Walker Review of Systems Review of Systems: Complete review of systems is otherwise as stated above, negative, or noncontributory Physical Exam Physical Exam: General: A&Ox3. NAD. Younger than physiologic age. HENT: Normocephalic. Atraumatic. Eyes: PER. Conjunctiva pink, sclera clear. Neck: + JVD. + HJR. Heart: RRR, 76 bpm. + Gallop. Soft systolic ejection murmur. Lungs: Right basilar rales. No wheeze. Abdomen: +BS. Soft. Nontender. No masses or organomegaly. Extremities: Minimal edema. No clubbing. No cyanosis Limited neurological examination is without focal deficits. Results & Data Vital Signs (Past 12 Hours) Vital Signs Pulse Pulse Resp BP BP Pulse Ox Pulse Ox 12/07/23 10:39 12/07/23 10:00 68 27 H 12/07/23 09:00 73 17 12/07/23 09:00 161/89 H 12/07/23 08:00 74 27 H 153/65 H 12/07/23 07:35 63 12/07/23 07:06 74 15 96 12/07/23 07:06 70 18 97 12/07/23 06:48 12/07/23 06:12 66 23 94 12/07/23 06:00 69 24 145/71 H 95 12/07/23 05:51 64 25 H 96 12/07/23 05:48 67 18 99 12/07/23 05:18 66 26 H 98 12/07/23 05:06 69 24 98 12/07/23 04:42 67 27 H 94 12/07/23 04:30 72 22 99 12/07/23 04:24 64 26 H 97 12/07/23 04:18 69 28 H 96 12/07/23 03:51 66 24 155/61 H 98 12/07/23 03:42 72 25 H 97 12/07/23 03:30 77 27 H 96 12/07/23 03:21 72 26 H 95 12/07/23 03:18 66 21 96 12/07/23 03:06 67 22 95 12/07/23 02:51 69 19 97 12/07/23 02:48 70 22 97 12/07/23 02:33 73 18 97 12/07/23 02:31 12/07/23 02:00 71 29 H 96 12/07/23 01:51 71 27 H 96 12/07/23 01:42 75 26 H 95 12/07/23 01:30 74 31 H 12/07/23 01:21 75 28 H 100 12/07/23 01:12 73 31 H 94 12/07/23 01:03 12/07/23 01:03 92 12/07/23 00:39 83 32 H 94 12/07/23 00:25 93 H 24 138/81 99 12/07/23 00:24 93 H 23 94 12/07/23 00:06 81 26 H 95 12/06/23 23:46 190/83 H 12/06/23 23:09 83 96 O2 Del Method O2 Del Method O2 Flow Rate 12/07/23 10:39 Nasal Cannula 3 12/07/23 10:00 12/07/23 09:00 12/07/23 09:00 12/07/23 08:00 12/07/23 07:35 12/07/23 07:06 12/07/23 07:06 Room Air 12/07/23 06:48 Nasal Cannula 12/07/23 06:12 12/07/23 06:00 12/07/23 05:51 12/07/23 05:48 12/07/23 05:18 12/07/23 05:06 12/07/23 04:42 12/07/23 04:30 12/07/23 04:24 12/07/23 04:18 12/07/23 03:51 12/07/23 03:42 12/07/23 03:30 12/07/23 03:21 12/07/23 03:18 12/07/23 03:06 12/07/23 02:51 12/07/23 02:48 12/07/23 02:33 12/07/23 02:31 Nasal Cannula 12/07/23 02:00 12/07/23 01:51 12/07/23 01:42 12/07/23 01:30 12/07/23 01:21 12/07/23 01:12 12/07/23 01:03 Nasal Cannula 12/07/23 01:03 Nasal Cannula 12/07/23 00:39 12/07/23 00:25 Nasal Cannula 2 12/07/23 00:24 12/07/23 00:06 12/06/23 23:46 12/06/23 23:09 Laboratory Results Cardiac Enzymes 12/06/23 12/06/23 12/06/23 Range/Units 18:00 19:55 23:20 AST 14 (13-39) U/L Troponin I High Sens 26.4 H 27.9 H 34.0 H (0-14) pg/ml B-Natriuretic Peptide 1342 H (0-100) pg/ml 12/07/23 Range/Units 03:43 AST (13-39) U/L Troponin I High Sens 40.9 H (0-14) pg/ml B-Natriuretic Peptide (0-100) pg/ml Coagulation 12/06/23 Range/Units 18:00 APTT 37 H (21-31) Seconds B-Natriuretic Peptide 1342 H (0-100) pg/ml CBC 12/06/23 12/07/23 Range/Units 18:00 03:43 WBC 8.79 9.09 (4.8-10.8) K/ul RBC 3.11 L 2.71 L (4.20-5.40) M/uL Hgb 9.4 L 8.2 L (12.0-16.0) g/dl Hct 29.2 L 25.0 L (37.0-47.0) % Plt Count 278 266 (130-400) K/uL Neut # (Auto) 6.73 H 7.01 H (1.40-6.50) K/uL Lymph # (Auto) 1.29 1.21 (1.20-3.40) K/uL Dooly # (Auto) 0.68 H 0.78 H (0.11-0.59) K/uL Eos # (Auto) 0.03 0.02 (0.00-0.50) K/uL Baso # (Auto) 0.03 0.04 (0.00-0.20) K/uL Comprehensive Metabolic Panel 12/06/23 12/07/23 Range/Units 18:00 03:43 Sodium 133 L 133 L (136-145) mmol/L Potassium 3.4 L 3.3 L (3.5-5.1) mmol/L Chloride 99 99 (98-107) mmol/L Carbon Dioxide 24 26 (21-32) mmol/L BUN 21 22 (6-23) mg/dl Creatinine 1.20 1.42 H (0.6-1.2) mg/dl Glucose 134 H 116 H (70-99(Fasting)) mg/dl Calcium 9.5 8.9 (8.6-10.3) mg/dl AST 14 (13-39) U/L ALT 10 (7-52) U/L Alkaline Phosphatase 35 (34-104) U/L Total Protein 7.8 (6.0-8.3) gm/dl Albumin 3.9 (3.4-5.0) gm/dl Intake and Output 12/06/23 12/07/23 12/07/23 22:59 06:59 14:59 Intake Total 100 / 100 100 / 100 Output Total 300 / 950 650 / 950 Balance -300 / -850 -550 / -850 100 / 100 Intake: IV 100 / 100 100 / 100 Magnesium Sulfate / D5w 1 gm In 100 / 100 100 / 100 100 ml @ 50 mls/hr IV Q2H [facility] Rx#:[id number] Output: Urine 300 / 950 650 / 950 Other: Weight 85.6 kg 85.6 kg Weight Measurement Method Built in Bedscale Built in Bedscale Patient Weight 12/08/23 06:59 Weight 85.6 kg (3) Anemia Anemia type: unspecified type Qualified Code(s): D64.9 - Anemia, unspecified
[2023-12-07] MEDS: LEVALBUTEROL HCL 0.63 MG/3 ML NEB NEB PRN (11:09)
[2023-12-07] MEDS: FUROSEMIDE 40 MG/4 ML VIAL IV ONE (14:17)
--- NOTE | 2023-12-07 16:25 | Hospitalist Progress Note ---
Date of Service December 07, 2023 Assessment & Plan (1) Acute on chronic congestive heart failure: Plan: Acute on chronic diastolic heart failure Chronic left bundle branch block --CTA:No evidence of pulmonary embolus. Cardiomegaly and likely moderate edema. Small bilateral pleural effusions with underlying atelectasis. Bladder wall thickening compatible with infectious/inflammatory airways disease and reactive lymphadenopathy. -- Echo pending Continue IV Lasix as per cardiology Appreciate cardiology input Carvedilol dose increased to 37.5 mg twice a day Imdur dose increased to 40 mg 3 times a day Continue supplemental oxygen as needed Monitor volume status, I's and O's, daily weight Avoid HCTZ, ANANT, ARB, Entresto, spironolactone, eplerenone due to renal dysfunction/solitary kidney/poor tolerance per cardiology Will need to step prior to discharge Mild troponin elevation Likely demand ischemia secondary to above Monitor Chronic hyponatremia Likely due to diuretics Hypokalemia Monitor sodium levels Replete electrolytes as needed PVD Continue aspirin, statin Hypertension Continue amlodipine, Coreg, hydralazine Also on isosorbide Monitor BP Hyperlipidemia on statin DM II Last HbA1c 5.0 Continue insulin while hospitalized Monitor BGs CKD IV H/O renal artery stenosis Avoid nephrotoxic agents as able Monitor renal function Chronic Anemia MUGS No acute bleeding issues Monitor CBC Follows with [facility] program professional Mood disorder Continue sertraline DVT Px: Lovenox SQ Code Status Full code Admission and Anticipated Discharge Date Admission Date: December 06, 2023 Subjective Patient is seen and examined in person States having shortness of breath associated with orthopnea Also reports cough with clear expectoration Had transient chest discomfort earlier today Saturating well on 3 L supplemental oxygen No other complaints Review of Systems Review of Systems: All systems reviewed & are unremarkable except as noted in Subjective Physical Exam Physical Exam: Physical Exam: Vitals signs as noted above General Appearance: Moderately built and nourished, elderly, no apparent distre ss Head: normocephalic, Atraumatic Eyes: normal inspection, EOMI Neck: supple, Trachea midline Respiratory/Chest: Decreased breath sounds, basal crackles, No accessory muscle use Cardiovascular: S1, S2, +murmur Abdomen/GI:Soft, Non tender, Bowel sounds present Extremities/Musculoskeletal:normal inspection, 1+ edema Neurologic/Psych:AAOX3, grossly no focal neurological deficits Skin: normal color, warm Results & Data Results & Data Vital Signs (Past 12 Hours) Vital Signs Temp Pulse Pulse Resp BP BP Pulse Ox 12/07/23 15:04 36.7 C 79 20 157/65 H 95 12/07/23 12:33 72 23 116/65 97 12/07/23 11:09 69 30 H 97 12/07/23 10:39 12/07/23 10:00 68 27 H 12/07/23 09:00 73 17 12/07/23 09:00 161/89 H 12/07/23 08:00 12/07/23 08:00 74 27 H 153/65 H 12/07/23 07:35 63 12/07/23 07:06 74 15 96 12/07/23 07:06 70 18 97 12/07/23 06:48 12/07/23 06:12 66 23 94 12/07/23 06:00 69 24 145/71 H 95 12/07/23 05:51 64 25 H 96 12/07/23 05:48 67 18 99 12/07/23 05:18 66 26 H 98 12/07/23 05:06 69 24 98 12/07/23 04:42 67 27 H 94 12/07/23 04:30 72 22 99 12/07/23 04:24 64 26 H 97 Pulse Ox O2 Del Method O2 Del Method O2 Flow Rate O2 Flow Rate 12/07/23 15:04 Nasal Cannula 3 12/07/23 12:33 Nasal Cannula 3 12/07/23 11:09 Nasal Cannula 3 12/07/23 10:39 Nasal Cannula 3 12/07/23 10:00 12/07/23 09:00 12/07/23 09:00 12/07/23 08:00 92 Nasal Cannula 3 12/07/23 08:00 12/07/23 07:35 12/07/23 07:06 12/07/23 07:06 Room Air 12/07/23 06:48 Nasal Cannula 12/07/23 06:12 12/07/23 06:00 12/07/23 05:51 12/07/23 05:48 12/07/23 05:18 12/07/23 05:06 12/07/23 04:42 12/07/23 04:30 12/07/23 04:24 Laboratory Results Short CBC 12/06/23 12/07/23 Range/Units 18:00 03:43 WBC 8.79 9.09 (4.8-10.8) K/ul Hgb 9.4 L 8.2 L (12.0-16.0) g/dl Hct 29.2 L 25.0 L (37.0-47.0) % Plt Count 278 266 (130-400) K/uL BMP 12/06/23 12/07/23 18:00 03:43 Sodium 133 L 133 L Potassium 3.4 L 3.3 L Chloride 99 99 Carbon Dioxide 24 26 BUN 21 22 Creatinine 1.20 1.42 H Glucose 134 H 116 H Calcium 9.5 8.9 Liver Function 12/06/23 Range/Units 18:00 Total Bilirubin 0.8 (0.2-1.0) mg/dl AST 14 (13-39) U/L ALT 10 (7-52) U/L Alkaline Phosphatase 35 (34-104) U/L Albumin 3.9 (3.4-5.0) gm/dl
[2023-12-07] MEDS: ATORVASTATIN 40 MG TAB PO SCH (20:07)
[2023-12-07] MEDS: LORATADINE 10 MG TAB PO SCH (20:08)
[2023-12-08 06:41] LABS: Hematocrit (blood only) 25.9 % (37.0-47.0); Hemoglobin 8.4 g/dl (12.0-16.0); Mean Corpuscular Hemoglobin 30.5 pg (25.0-34.0); Mean Corpuscular Hgb Conc 32.4 g/dL (32.0-36.0); Mean Corpuscular Volume 94.2 fL (80.0-100.0); Mean Platelet Volume 9.6 fL (9.4-12.4); Platelet Count 261 K/uL (130-400); RDW Coefficient of Variation 15.2 % (11.5-14.5); RDW Standard Deviation 52.9 fL (36.4-46.3); Red Blood Count 2.75 M/uL (4.20-5.40); White Blood Count 8.37 K/ul (4.8-10.8)
[2023-12-08 06:57] LABS: BUN Creatinine Ratio 14.6 (10-20); Calcium 9.2 mg/dl (8.6-10.3); Creatinine Clr Calc Pharmacy 22.6 ml/min; Est GFR (African American) 30.2 ml/min; Est GFR (Non-African American) 26.1 ml/min; Magnesium 2.3 mg/dl (1.7-2.4); Potassium 4.4 mmol/L (3.5-5.1)
--- NOTE | 2023-12-08 09:19 | Cardiology Progress Note ---
Date of Service December 08, 2023 Assessment & Plan (1) Acute on chronic congestive heart failure: (2) Hypoxia: (3) Anemia: (4) LBBB (left bundle branch block): (5) Elevated troponin: (6) Hypertension, uncontrolled: Plan 88 year old female admitted with signs and symptoms of acute decompensated congestive heart failure with associated hypoxemia and uncontrolled hypertension. Patient with longstanding history of hypertension, diastolic heart failure, stage III chronic kidney disease, atherosclerotic carotid disease, renal artery stenosis, presumed underlying coronary artery disease. Troponin mildly elevated likely secondary to demand ischemia in the setting of acute decompensated heart failure, hypertension, CKD. Hyponatremia mildly improved. Hypokalemia corrected. Patient with persistent symptoms. Recommendations: IV furosemide 20 mg now, repeat dose late afternoon. Monitor fluid balance, daily weight, GFR, and electrolytes. CT head, RE: Headache, hypertension Avoid ANANT, ARB, Entresto, spironolactone or eplerenone and thiazide diuretic due to renal dysfunction, solitary functional kidney, past poor tolerance. I spent a total of 35 minutes on the date of service in preparation, delivery, and documentation of the care provided to this patient excluding any time spent in the performance of separately billed services. This visit was a split-shared visit with the substantive portion of the medical decision making performed by the supervising blueprint machine operator/billing provider. Admission and Anticipated Discharge Date Admission Date: December 06, 2023 Supervising Physician Co-Signing Physician Notes Attending attestation: Case reviewed with the advanced practitioner. I have personally performed a history and physical examination on the patient. I have reviewed the advanced practitioner's documentation on the date of service referenced in note, and I agree with, and take responsibility for the plan of care. Telemetry reveals SR in the 70s with chronic LBBB, and PVCs. Agree with furosemide plan as documented. I spent a total of 20 minutes coordinating, documenting, and providing care for this patient excluding time spent in the performance of separately billed services or time spent by another provider. Martinez Lazaro, Subjective Patient seen and examined. Chart, medications, telemetry reviewed. Complaints voiced include headache (improving, "Keyur took care of that"), breathlessness, "tightness along the diaphragm," and no energy. Patient notes transient improvement in the tightness along the diaphragm following prior IV furosemide administration. Creatinine increased to 1.7 mg/dL this AM Blood pressures improved, currently with systolic readings in the 150s, previously in the 170s to 190s range. Review of Systems Review of Systems: Complete review of systems is otherwise as stated above, negative, or noncontributory Physical Exam Physical Exam: General: A&Ox3. NAD. Younger than physiologic age. HENT: Normocephalic. Atraumatic. Eyes: PER. Conjunctiva pink, sclera clear. Neck: + JVD. Heart: RRR, 70 bpm. + Gallop. Soft systolic ejection murmur. Lungs: Clear. No wheeze. Abdomen: +BS. Soft. Nontender. No masses or organomegaly. Extremities: Minimal edema. No clubbing. No cyanosis Limited neurological examination is without focal deficits. Results & Data Vital Signs (Past 12 Hours) Vital Signs Temp Pulse Pulse Resp BP Pulse Ox Pulse Ox 12/08/23 08:00 12/08/23 08:00 96 12/08/23 07:05 36.8 C 71 18 150/56 H 94 12/08/23 02:30 36.8 C 71 18 150/67 H 93 12/07/23 22:43 36.7 C 73 18 150/76 H 95 12/07/23 22:30 76 O2 Del Method O2 Del Method O2 Flow Rate O2 Flow Rate 12/08/23 08:00 Nasal Cannula 3 12/08/23 08:00 Nasal Cannula 3 12/08/23 07:05 Nasal Cannula 12/08/23 02:30 Nasal Cannula 3 12/07/23 22:43 Nasal Cannula 3 12/07/23 22:30 Laboratory Results CBC 12/08/23 Range/Units 05:49 WBC 8.37 (4.8-10.8) K/ul RBC 2.75 L (4.20-5.40) M/uL Hgb 8.4 L (12.0-16.0) g/dl Hct 25.9 L (37.0-47.0) % Plt Count 261 (130-400) K/uL Comprehensive Metabolic Panel 12/08/23 Range/Units 05:49 Sodium 134 L (136-145) mmol/L Potassium 4.4 D (3.5-5.1) mmol/L Chloride 101 (98-107) mmol/L Carbon Dioxide 25 (21-32) mmol/L BUN 25 H (6-23) mg/dl Creatinine 1.71 H (0.6-1.2) mg/dl Glucose 157 H (70-99(Fasting)) mg/dl Calcium 9.2 (8.6-10.3) mg/dl Intake and Output 12/07/23 12/08/23 12/08/23 22:59 06:59 14:59 Output Total 250 / 250 Balance -250 / -150 Output: Urine 250 / 250 Other: Other Intake Source Sips # Unmeasured Voids 450 Weight 81.7 kg Weight Measurement Method Standing Scale Diagnostic Findings December 07, 2023 TTE Interpretation Summary ([facility], Dr. Lazaro): Abnormal septal motion consistent with underlying left bundle branch block. Otherwise, LV wall motion is normal. Mildly reduced LV systolic function. Left ventricular ejection fraction 45 to 50%. Mild mitral regurgitation. Mild to moderate tricuspid regurgitation. Pulmonary artery systolic pressure estimated to be 58 mmHg (moderately elevated). Grade 2 diastolic dysfunction. Compared to the images obtained at the time of previous studies on August 14, 2023 and September 02, 2023, with abnormal septal motion related to the left bundle branch block is more pronounced on the present study. There has been an interval mild decline in left ventricular ejection fraction. Mild to moderate tricuspid regurgitation is now noted with moderate pulmonary hypertension along with grade 2 diastolic dysfunction. Telemetry: Sinus rhythm with occasional premature ectopic beats, heart rates predominantly in the 70s. (3) Anemia Anemia type: unspecified type Qualified Code(s): D64.9 - Anemia, unspecified
[2023-12-08] MEDS: ENOXAPARIN INJ 30 MG/0.3 ML SYR SQ SCH (10:24)
[2023-12-08] MEDS: LANTUS PER UNIT CHARGE SC SCH (10:28)
[2023-12-08] MEDS: FUROSEMIDE INJ 20 MG/2 ML VIAL IV ONE ×2 (10:28→15:09)
--- NOTE | 2023-12-08 11:03 | CT Scan Report ---
CT SCAN OF THE BRAIN WITHOUT IV CONTRAST CLINICAL HISTORY: Headache. Hypertension COMPARISON STUDY: CT of the brain dated 08/12/2023. TECHNIQUE: Unenhanced axial CT scan of the brain is performed from the vertex to the skull base. A do se lowering technique was utilized adhering to the principles of ALARA. CT DOSE: 547.75 mGy.cm FINDINGS: Brain parenchyma: There is age-related involutional change noting mild subcortical and periventricula r microangiopathic disease. There is no hemorrhage, mass effect, or evidence of acute territorial isc hemia by CT criteria. Motta-white matter differentiation is preserved. No extra-axial fluid collection is seen. Ventricles, sulci, cisterns: Prominent secondary to involutional change. Intracranial vasculature: There is atherosclerotic calcification of the cavernous carotid and vertebr al arteries. Calvarium: Unremarkable. Sinuses and mastoids: The visualized paranasal sinuses are clear. The mastoid air cells are well pneu matized. Orbits: The bony orbits are grossly intact. There are bilateral ocular lens implants. IMPRESSION: There is no hemorrhage, mass effect, or evidence of acute territorial ischemia by CT saúl garcia. ACT 112: Negative or not required by law. Electronically signed by: Tyler Vang M.D. 12/08/2023 11:01 AM
--- NOTE | 2023-12-08 14:47 | XRay Report ---
XR chest 1V portable HISTORY: Shortness of breath. COMPARISON: Chest 12/06/2023. FINDINGS: No pneumothorax. The heart remains enlarged. Small bilateral pleural effusions are again no lenin. There are patchy bibasilar densities, unchanged. There is mild interstitial pulmonary edema agai n noted. IMPRESSION: 1. No significant change in the cardiomegaly with small bilateral pleural effusions and mild intersti tial pulmonary edema. 2. Patchy bibasilar densities persist and may represent atelectasis from the pleural effusions. A pne umonia would be difficult to exclude. ACT 112: Negative or not required by law. Electronically signed by: Alber Capellan M.D. 12/08/2023 2:45 PM
[2023-12-08 15:01] LABS: Base Excess ABG 0.7 mEq/L (-9-1.8); HCO3 ABG 24 mmol/L (19-24); Oxygen Saturation ABG 99.2 % (90-95); PCO2 ABG 35 mmHg (35-46); PO2 ABG 131 mmHg (80-95); pH ABG 7.45 (7.35-7.45)
--- NOTE | 2023-12-08 15:40 | Hospitalist Progress Note ---
Date of Service December 08, 2023 Assessment & Plan (1) Acute on chronic congestive heart failure: Plan: Acute on chronic systolic and diastolic heart failure--POA Chronic left bundle branch block --CTA:No evidence of pulmonary embolus. Cardiomegaly and likely moderate edema. Small bilateral pleural effusions with underlying atelectasis. Bladder wall thickening compatible with infectious/inflammatory airways disease and reactive lymphadenopathy. -- Echo: Abnormal septal motion consistent with underlying LBBB. EF 45 to 50%. Mild mitral regurgitation with mild to moderate tricuspid regurgitation. Pulmonary artery systolic pressure estimated to be 50 mmHg. Grade 2 diastolic dysfunction Continue IV Lasix as per cardiology Appreciate cardiology input Carvedilol dose increased to 37.5 mg twice a day Imdur dose increased to 40 mg 3 times a day Continue supplemental oxygen as needed Monitor volume status, I's and O's, daily weight Avoid HCTZ, ANANT, ARB, Entresto, spironolactone, eplerenone due to renal dysfunction/solitary kidney/poor tolerance per cardiology Will need 2 step prior to discharge Continue IV diuresis as able Nebs as needed Mild troponin elevation Likely demand ischemia secondary to above Monitor Chronic hyponatremia Likely due to diuretics Hypokalemia Monitor sodium levels Replete electrolytes as needed Sodium 134 today PVD Continue aspirin, statin Hypertension Continue amlodipine, Coreg, hydralazine Also on isosorbide Monitor BP Hyperlipidemia on statin DM II Last HbA1c 5.0 Continue insulin while hospitalized Monitor BGs CKD IV H/O renal artery stenosis Avoid nephrotoxic agents as able Monitor renal function Consider to involve nephrology if renal function continues to worsen Creatinine 1.7 today Chronic Anemia MUGS No acute bleeding issues Monitor CBC Follows with [facility] title i director Mood disorder Continue sertraline DVT Px: Heparin SQ Code Status Full code Admission and Anticipated Discharge Date Admission Date: December 06, 2023 Subjective Patient is seen and examined in person States having shortness of breath, feels slightly anxious Also reports some abdominal tightness which she attributes to fluid overload Minimal cough with clear expectoration Discussed with cardiology today Chest x-ray unchanged from yesterday Denies any chest pain, abdominal pain, dizziness Review of Systems Review of Systems: All systems reviewed & are unremarkable except as noted in Subjective Physical Exam Physical Exam: Physical Exam: Vitals signs as noted above General Appearance: Moderately built and nourished, elderly, no apparent distress Head: normocephalic, Atraumatic Eyes: normal inspection, EOMI Neck: supple, Trachea midline Respiratory/Chest: Decreased breath sounds, basal crackles, No accessory muscle use Cardiovascular: S1, S2, +murmur Abdomen/GI:Soft, Non tender, Bowel sounds present Extremities/Musculoskeletal:normal inspection, 1+ edema Neurologic/Psych:AAOX3, grossly no focal neurological deficits Skin: normal color, warm Results & Data Results & Data Vital Signs (Past 12 Hours) Vital Signs Temp Pulse Resp BP Pulse Ox Pulse Ox O2 Del Method 12/08/23 15:24 37.0 C 69 13 158/58 H 91 Oxymask 12/08/23 15:12 97 12/08/23 14:56 80 20 95 Oxymask 12/08/23 11:17 36.6 C 63 18 131/60 96 Nasal Cannula 12/08/23 08:00 Nasal Cannula 12/08/23 08:00 96 12/08/23 07:05 36.8 C 71 18 150/56 H 94 Nasal Cannula O2 Del Method O2 Flow Rate O2 Flow Rate 12/08/23 15:24 12/08/23 15:12 Oxymask 3 12/08/23 14:56 3 12/08/23 11:17 12/08/23 08:00 3 12/08/23 08:00 Nasal Cannula 3 12/08/23 07:05 Laboratory Results Short CBC 12/08/23 Range/Units 05:49 WBC 8.37 (4.8-10.8) K/ul Hgb 8.4 L (12.0-16.0) g/dl Hct 25.9 L (37.0-47.0) % Plt Count 261 (130-400) K/uL BMP 12/08/23 05:49 Sodium 134 L Potassium 4.4 D Chloride 101 Carbon Dioxide 25 BUN 25 H Creatinine 1.71 H Glucose 157 H Calcium 9.2
[2023-12-08] MEDS: LORazepam 0.5 MG TAB PO ONE (15:41)
[2023-12-08] MEDS ORDERED: FUROSEMIDE INJ 20 MG/2 ML VIAL IV ONE (16:00)
[2023-12-08 16:20] LABS: Allen Test Pos (Pos)
[2023-12-09] MEDS: ALBUT/IPRATROP 3MG/0.5MG NEB 3 ML VIAL NEB STA (04:53)
[2023-12-09] MEDS: ALBUMIN 25% 12.5 GM/50 ML VIAL IV ONE (05:03)
[2023-12-09] MEDS: FUROSEMIDE 40 MG/4 ML VIAL IV STA (05:12)
[2023-12-09] MEDS: hydrOXYzine HCl 10 MG TAB PO STA (05:12)
[2023-12-09] MEDS: carvediloL 12.5 MG TAB PO ONE (05:12)
--- NOTE | 2023-12-09 05:29 | Electrocardiogram Report ---
Test Reason : Blood Pressure : / mmHG Vent. Rate : 080 BPM Atrial Rate : 080 BPM P-R Int : 174 ms QRS Dur : 138 ms QT Int : 436 ms P-R-T Axes : 100 -45 118 degrees QTc Int : 502 ms Sinus rhythm with frequent Premature ventricular complexes Left axis deviation Left bundle branch block Abnormal ECG When compared with ECG of 31-OCT-2023 05:32, Premature ventricular complexes are now Present QRS axis Shifted left Confirmed by Nathen Knutson ([id number]) on 12/09/2023 5:29:11 AM Referred By: REFERRED SELF Confirmed By:Nathen Knutson
[2023-12-09 06:23] LABS: Hematocrit (blood only) 24.2 % (37.0-47.0); Hemoglobin 7.9 g/dl (12.0-16.0); Mean Corpuscular Hemoglobin 30.4 pg (25.0-34.0); Mean Corpuscular Hgb Conc 32.6 g/dL (32.0-36.0); Mean Corpuscular Volume 93.1 fL (80.0-100.0); Mean Platelet Volume 9.7 fL (9.4-12.4); Platelet Count 245 K/uL (130-400); RDW Coefficient of Variation 14.8 % (11.5-14.5); RDW Standard Deviation 50.5 fL (36.4-46.3); White Blood Count 8.07 K/ul (4.8-10.8)
[2023-12-09 06:41] LABS: BUN Creatinine Ratio 19.2 (10-20); Calcium 8.8 mg/dl (8.6-10.3); Creatinine Clr Calc Pharmacy 21.2 ml/min; Est GFR (Non-African American) 24.2 ml/min; Magnesium 2.1 mg/dl (1.7-2.4)
[2023-12-09] MEDS: HEPARIN SOD 5,000 UNIT/0.5 ML VIAL SQ SCH (08:32)
--- NOTE | 2023-12-09 09:14 | Cardiology Progress Note ---
Date of Service December 09, 2023 Assessment & Plan (1) Acute on chronic congestive heart failure: (2) Hypoxia: (3) Anemia: (4) LBBB (left bundle branch block): (5) Elevated troponin: (6) Hypertension, uncontrolled: (7) JOSE (acute kidney injury): Plan 88 year old female admitted with signs and symptoms of acute decompensated congestive heart failure with associated hypoxemia and uncontrolled hypertension. Patient with longstanding history of hypertension, diastolic heart failure, stage III chronic kidney disease, atherosclerotic carotid disease, renal artery stenosis, presumed underlying coronary artery disease. Troponin mildly elevated likely secondary to demand ischemia in the setting of acute decompensated heart failure, hypertension, CKD. Shortness of breath continues despite cautious IV diuresis. Dyspnea appears to be multifactorial in etiology (CHF, bronchitis/pneumonia, anxiety). Worsening renal dysfunction noted with patient having received IV contrast via chest CTA on December 06, 2023. Patient received 60 mg of IV furosemide earlier this morning. Will hold on further IV diuretics for now. Nephrology consultation requested. Add Mucinex. Continue nebulizer treatments. I spent a total of 33 minutes on the date of service in preparation, delivery, and documentation of the care provided to this patient excluding any time spent in the performance of separately billed services. This visit was a split-shared visit with the substantive portion of the medical decision making performed by the supervising canal boat operator/billing provider. Admission and Anticipated Discharge Date Admission Date: December 06, 2023 Supervising Physician Co-Signing Physician Notes Attending attestation: Case reviewed with the advanced practitioner. I have personally performed a history and physical examination on the patient. I have reviewed the advanced practitioner's documentation on the date of service referenced in note, and I agree with, and take responsibility for the plan of care. Telemetry reveals SR in the 70s with chronic LBBB, and PVCs. Nephrology input noted and appreciate. Case discussed with Dr Smith. Increase furosemide to 80 mg IV BID, next dose this afternoon. I spent a total of 20 minutes coordinating, documenting, and providing care for this patient excluding time spent in the performance of separately billed services or time spent by another provider. Martinez Lazaro, Subjective Patient seen and examined. Chart, medications, and telemetry reviewed. Patient became acutely short of breath overnight, felt to be multifactorial in etiology per conversation with nursing staff. Patient received hydroxyzine, lorazepam, a DuoNeb treatment, and 60 mg of IV furosemide with some improvement. She is currently saturating 95% on 4.5 L via Oxymask. Creatinine continues to climb, now 1.82 mg/dL. Patient received IV contrast via chest CT on December 06, 2023 Telemetry: Sinus with occasional ventricular ectopy, heart rates predominantly in the 70s. Review of Systems Review of Systems: Complete review of systems is otherwise as stated above, negative, or noncontributory Physical Exam Physical Exam: General: A&Ox3. NAD. HENT: Normocephalic. Atraumatic. Eyes: PER. Conjunctiva pink, sclera clear. Neck: No JVD. Heart: RRR, 70 bpm. + Gallop. Soft systolic ejection murmur. Lungs: Right basilar Rales. No wheeze. Abdomen: +BS. Soft. Nontender. No masses or organomegaly. Extremities: Minimal nonpitting edema. No clubbing. No cyanosis Limited neurological examination is without focal deficits. Results & Data Vital Signs (Past 12 Hours) Vital Signs Temp Pulse Pulse Resp BP Pulse Ox Pulse Ox 12/09/23 08:12 37.1 C 72 16 142/68 H 95 12/09/23 04:53 72 16 92 12/09/23 02:51 36.7 C 75 18 160/68 H 95 12/09/23 01:17 74 98 H 97 12/09/23 01:00 94 12/09/23 00:00 96 12/08/23 23:20 36.8 C 73 16 153/66 H 95 12/08/23 22:00 71 O2 Del Method O2 Del Method O2 Flow Rate O2 Flow Rate 12/09/23 08:12 Oxymask 4.5 12/09/23 04:53 Oxymask 3 12/09/23 02:51 Oxymask 3 12/09/23 01:17 Oxymask 3 12/09/23 01:00 Oxymask 3 12/09/23 00:00 Oxymask 3 12/08/23 23:20 Oxymask 3 12/08/23 22:00 Laboratory Results CBC 12/09/23 Range/Units 05:56 WBC 8.07 (4.8-10.8) K/ul RBC 2.60 L (4.20-5.40) M/uL Hgb 7.9 L (12.0-16.0) g/dl Hct 24.2 L (37.0-47.0) % Plt Count 245 (130-400) K/uL Comprehensive Metabolic Panel 12/09/23 Range/Units 05:56 Sodium 132 L (136-145) mmol/L Potassium 4.0 (3.5-5.1) mmol/L Chloride 100 (98-107) mmol/L Carbon Dioxide 23 (21-32) mmol/L BUN 35 H (6-23) mg/dl Creatinine 1.82 H (0.6-1.2) mg/dl Glucose 161 H (70-99(Fasting)) mg/dl Calcium 8.8 (8.6-10.3) mg/dl Intake and Output 12/08/23 12/09/23 12/09/23 22:59 06:59 14:59 Intake Total 275 / 775 200 / 775 Output Total 450 / 950 500 / 950 Balance -175 / -175 -300 / -175 Intake: IV 50 / 50 Albumin 25% 12.5 gm In 50 ml @ 50 / 50 50 mls/hr IV ONE ONE Rx#: [id number] Oral 275 / 725 150 / 725 Output: Urine 450 / 950 500 / 950 (3) Anemia Anemia type: unspecified type Qualified Code(s): D64.9 - Anemia, unspecified
--- NOTE | 2023-12-09 10:35 | Nephrology Consultation ---
Date of Consultation December 09, 2023 Assessment & Plan (1) JOSE (acute kidney injury): (2) Acute on chronic kidney failure: She has JOSE component with abnormal creatinine coming mainly from her underlying CKd 3B. 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 Despite all that creat at baselineis usually about 1.4. Current creat of 1.8 is slightly higher than baseline. JOSE is from Current issue with Acute CHF/ contrast exposure. however most likely her creat would have gone up even if she did not get the contrast. Agree with cards about not using alissa/ARb/entresto/Aldacotne. No further workup needed for JOSE. her current problem is SOB and needs to be managed first and foremost. She is very worried about the renal numbers--maybe more than she should and I did try to reassure her that it is expected to have some rise in creatinine in acute clinical setting. however unlikely that she will progress to renal replacement therapy. she does need diuretics even if it means somewhat worsened kidney function. at this point the goal is to make her breathing better (3) Acute on chronic congestive heart failure: Increase dose of lasix to 80 bid. Some rise in creat is acceptable and expected given her underlying issues with CKD/Dm/Age/WILSON/Single functional Kidney. Agree with cards about not using alissa/ARb/entresto/Aldactone. Plan case complexity high. Reviewed Cardiology note from inpatient as well as outpatient. Total time spent 60 minutes History of Present Illness Reason for Consultation: Jose on CKD with CHF Attending Physician: Patricio Miramontes MD History of Present Illness 88/F with CKD -baseline creat of 1.3---1.7 for last 2 years. Most recent labs Creat 1.4 GFR 35 as of 11/26/2023. Admitted on December 06, 2023 for SOB and hypoxia. found to be in CHF. had CT contrast to r/o PE. On admission creat was better than usual at 1.2 but since then has gone up to 1.8 today. making urine--no liu though. had lasix 60 iv earlier today. urine still quite dark/Concentrated despite iv lasix. she has Atrophic rt kidney and also has know WILSON b/l. She is SOB currently and needing o2 with oxymask. BP is not low--has been high mostly. At home on lasix 60 every other day through cardiology. Review of systems---- positive for shortness of breath and orthopnea. otherwise 12 systems reviewed and negative physical examination elderly white female who is awake alert oriented x3 and she is very knowledgeable with all her complicated medical problems. excellent cognitive status she is however very short of breath and unable to speak in full long sentence mucous membrane is moist neck is supple JVD is present chest bilateral decreased breath sound at the bases with occasional bilateral rhonchi CVS S1 and S2 regular soft systolic murmur heard trace edema abdomen is soft nontender extremities shows trace to 1+ edema skin does not show any obvious rash Allergies Allergy/AdvReac Type Severity Reaction Status Date / Time latex Allergy Severe DIFFICULTY Verified 12/06/23 19:25 BREATHING, TONGUE SWELLS Penicillins Allergy Severe DIFFICULTY Verified 12/06/23 19:25 BREATHING, TONGUE SWELLS Sulfa (Sulfonamide Allergy Severe DIFFICULTY Verified 12/06/23 19:25 Antibiotics) BREATHING, TONGUE SWELLS Home Medications Medication Instructions Recorded Confirmed Type acetaminophen 500 mg tablet 1,000 mg PO Q8 PRN Pain 10/31/21 12/06/23 History aspirin 81 mg tablet,delayed 81 mg PO QAM 10/31/21 12/06/23 History release repaglinide 2 mg tablet 2 mg PO AC 10/31/21 12/06/23 History sertraline 50 mg tablet 25 mg (1/2 x 50 mg) PO QAM #30 tabs 11/08/21 12/06/23 Rx linagliptin 5 mg tablet (Tradjenta) 5 mg PO DAILY 12/16/21 12/06/23 History loratadine 10 mg tablet 10 mg PO HS 12/16/21 12/06/23 History atorvastatin 80 mg tablet 80 mg PO HS 09/02/22 12/06/23 History empagliflozin 25 mg tablet 25 mg PO DAILY 09/02/22 12/06/23 History (Jardiance) isosorbide dinitrate 30 mg tablet 30 mg PO TID #90 tabs 09/04/22 12/06/23 Rx coQ10 (ubiquinol) 200 mg capsule 200 mg PO DAILY 08/12/23 12/06/23 History insulin degludec 100 unit/mL (3 30 unit subcut QAM 08/12/23 12/06/23 History mL) subcutaneous pen (Tresiba FlexTouch U-100 insulin) [id number] 5 mg-zeaxanth 1 cap PO QID 08/12/23 12/06/23 History 1 mg-bilberry 7.5 mg-herbal capsule (iSuppli Health Formula) carvedilol 25 mg tablet 37.5 mg (1.5 x 25 mg) PO BIDM #90 09/07/23 12/06/23 Rx tabs magnesium chloride 64 mg 64 mg PO DAILY #30 tabs 09/07/23 12/06/23 Rx (magnesium chloride) tablet,delayed release (Mag 64) hydralazine 100 mg tablet 100 mg PO TID 10/30/23 12/06/23 History cyanocobalamin (vitamin B-12) 500 500 mcg PO QAM #30 tabs 11/09/23 12/06/23 Rx mcg tablet ferrous sulfate 325 mg (65 mg 325 mg PO QAM #30 tabs 11/09/23 12/06/23 Rx iron) tablet,delayed release folic acid 1 mg tablet 1 mg PO QAM #30 tabs 11/09/23 12/06/23 Rx furosemide 40 mg tablet 40 mg PO QAM #30 tabs 24 12/06/23 Rx potassium chloride 20 mEq 20 meq PO QAM #30 tabs 11/09/23 12/06/23 Rx tablet,extended release(part/cryst) Prevagen 10 mg PO DAILY 12/06/23 12/06/23 History amlodipine 10 mg tablet 10 mg PO QAM 12/06/23 12/06/23 History melatonin 1 mg tablet,extended 1 mg PO HS 12/06/23 12/06/23 History release Patient History Medical History Diabetes mellitus with kidney complication, without long-term current use of insulin CKD (chronic kidney disease) stage 3, GFR 30-59 ml/min Anxiety Tingling Headache Hypertensive urgency DM2 (diabetes mellitus, type 2) H/O: HTN (hypertension) Surgical History Hx of cataract surgery Social History Smoking Status: Never smoker Second Hand Exposure: Yes; Do You Dip or Chew Tobacco: No; Hx Alcohol Use: Yes Alcohol type: wine Hx Substance Use: No Preferred Language: [place]er Communication Ability: Effective 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 Required: No Beliefs That Will Affect Care: None marital status: / Current Living Situation: Alone Other Information That Helps Us Care for You: No Feels Safe at Home: Yes Safety Concerns: Feels Safe At This Time Assistive Devices: Oxygen - at Night and Walker Results & Data Vital Signs (Past 12 Hours) Vital Signs Temp Pulse Resp BP Pulse Ox Pulse Ox O2 Del Method 12/09/23 08:12 37.1 C 72 16 142/68 H 95 Oxymask 12/09/23 04:53 72 16 92 Oxymask 12/09/23 02:51 36.7 C 75 18 160/68 H 95 Oxymask 12/09/23 01:17 74 98 H 97 Oxymask 12/09/23 01:00 94 12/09/23 00:00 96 12/08/23 23:20 36.8 C 73 16 153/66 H 95 Oxymask O2 Del Method O2 Flow Rate O2 Flow Rate 12/09/23 08:12 4.5 12/09/23 04:53 3 12/09/23 02:51 3 12/09/23 01:17 3 12/09/23 01:00 Oxymask 3 12/09/23 00:00 Oxymask 3 12/08/23 23:20 3 Laboratory Results reviewed outpatient as well as inpatient labs Diagnostic Findings chest x-ray CT angio of the chest reviewed in detail
[2023-12-09] MEDS: guaiFENesin 600 MG TABCR PO SCH (11:13)
[2023-12-09] MEDS: FUROSEMIDE 40 MG/4 ML VIAL IV SCH (13:48)
--- NOTE | 2023-12-09 13:50 | Hospitalist Progress Note ---
Date of Service December 09, 2023 Assessment & Plan (1) Acute on chronic congestive heart failure: Plan: Acute respiratory failure with hypoxia Acute on chronic systolic and diastolic heart failure--POA Chronic left bundle branch block --CTA:No evidence of pulmonary embolus. Cardiomegaly and likely moderate edema. Small bilateral pleural effusions with underlying atelectasis. Bladder wall thickening compatible with infectious/inflammatory airways disease and reactive lymphadenopathy. -- Echo: Abnormal septal motion consistent with underlying LBBB. EF 45 to 50%. Mild mitral regurgitation with mild to moderate tricuspid regurgitation. Pulmonary artery systolic pressure estimated to be 50 mmHg. Grade 2 diastolic dysfunction Continue IV Lasix as per cardiology and nephrology - > now increased to 80 lasix iv bid Appreciate cardiology input Carvedilol dose increased to 37.5 mg twice a day Imdur dose increased to 40 mg 3 times a day Continue supplemental oxygen as needed, currently on 4.5 L of suppl.O2 Monitor volume status, I's and O's, daily weight Avoid HCTZ, ANANT, ARB, Entresto, spironolactone, eplerenone due to renal dysfunction/solitary kidney/poor tolerance per cardiology Will need 2 step prior to discharge Continue IV diuresis as able Nebs as needed Mild troponin elevation Likely demand ischemia secondary to above Monitor Chronic hyponatremia Likely due to diuretics Hypokalemia Monitor sodium levels Replete electrolytes as needed Sodium 132 today Nephrology following PVD Continue aspirin, statin Hypertension Continue amlodipine, Coreg, hydralazine Also on isosorbide Monitor BP Hyperlipidemia on statin DM II Last HbA1c 5.0 Continue insulin while hospitalized Monitor BGs CKD IV H/O renal artery stenosis Avoid nephrotoxic agents as able Monitor renal function Nephrology following Creatinine 1.8 today Chronic Anemia MUGS No acute bleeding issues Monitor CBC 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 o2 Daughter Nancy present at the bedside Pt denies any chest pain, abdominal pain, dizziness Review of Systems Review of Systems: All systems reviewed & are unremarkable except as noted in Subjective Physical Exam Physical Exam: General Appearance: Moderately built and nourished, elderly F in NAD Head: NC/AT Eyes: normal inspection, EOMI Neck: supple Respiratory/Chest: Decreased breath sounds, basal crackles, No accessory muscle use Cardiovascular: S1, S2, +murmur Abdomen/GI:Soft, Non tender, Bowel sounds present Extremities/Musculoskeletal:normal inspection, 1+ edema Neurologic/Psych:AAOX3, answers appropriately, speech fluent, moves extremities Skin: normal color, warm Results & Data Results & Data Vital Signs (Past 12 Hours) Vital Signs Temp Pulse Resp BP Pulse Ox O2 Del Method O2 Del Method 12/09/23 13:36 80 20 92 Oxymask 12/09/23 11:18 Nasal Cannula, Oxymask 12/09/23 10:47 37.1 C 75 16 173/83 H 97 Oxymask 12/09/23 08:12 37.1 C 72 16 142/68 H 95 Oxymask 12/09/23 08:00 Nasal Cannula, Oxymask 12/09/23 04:53 72 16 92 Oxymask 12/09/23 02:51 36.7 C 75 18 160/68 H 95 Oxymask O2 Flow Rate O2 Flow Rate 12/09/23 13:36 4.5 12/09/23 11:18 6 12/09/23 10:47 6 12/09/23 08:12 4.5 12/09/23 08:00 6 12/09/23 04:53 3 12/09/23 02:51 3 Laboratory Results 12/09/23 12/09/23 12/09/23 Range/Units 11:16 07:23 05:56 WBC 8.07 (4.8-10.8) K/ul RBC 2.60 L (4.20-5.40) M/uL Hgb 7.9 L (12.0-16.0) g/dl Hct 24.2 L (37.0-47.0) % MCV 93.1 (80.0-100.0) fL MCH 30.4 (25.0-34.0) pg MCHC 32.6 (32.0-36.0) g/dL RDW Std Deviation 50.5 H (36.4-46.3) fL RDW Coeff of Rojelio 14.8 H (11.5-14.5) % Plt Count 245 (130-400) K/uL MPV 9.7 (9.4-12.4) fL ABG pH (7.35-7.45) ABG pCO2 (35-46) mmHg ABG pO2 (80-95) mmHg ABG HCO3 (19-24) mmol/L ABG O2 Saturation (90-95) % ABG Base Excess (-9-1.8) mEq/L Vishal Test (Pos) Oxygen Given Sodium 132 L (136-145) mmol/L Potassium 4.0 (3.5-5.1) mmol/L Chloride 100 (98-107) mmol/L Carbon Dioxide 23 (21-32) mmol/L Anion Gap 9 (3-11) BUN 35 H (6-23) mg/dl Creatinine 1.82 H (0.6-1.2) mg/dl Est Cr Clr Drug Dosing 21.2 ml/min Est GFR ( Amer) 28.0 ml/min Est GFR (Non-Af Amer) 24.2 ml/min BUN/Creatinine Ratio 19.2 (10-20) Glucose 161 H (70-99(Fasting)) mg/dl POC Glucose 259 H 190 H (70-99) mg/dl Calcium 8.8 (8.6-10.3) mg/dl Magnesium 2.1 (1.7-2.4) mg/dl Procalcitonin 0.05 (0-0.5) ng/ml 12/08/23 12/08/23 12/08/23 Range/Units 20:33 16:02 14:46 WBC (4.8-10.8) K/ul RBC (4.20-5.40) M/uL Hgb (12.0-16.0) g/dl Hct (37.0-47.0) % MCV (80.0-100.0) fL MCH (25.0-34.0) pg MCHC (32.0-36.0) g/dL RDW Std Deviation (36.4-46.3) fL RDW Coeff of Rojelio (11.5-14.5) % Plt Count (130-400) K/uL MPV (9.4-12.4) fL ABG pH 7.45 (7.35-7.45) ABG pCO2 35 (35-46) mmHg ABG pO2 131 H (80-95) mmHg ABG HCO3 24 (19-24) mmol/L ABG O2 Saturation 99.2 H (90-95) % ABG Base Excess 0.7 (-9-1.8) mEq/L Vishal Test Pos (Pos) Oxygen Given 3L Sodium (136-145) mmol/L Potassium (3.5-5.1) mmol/L Chloride (98-107) mmol/L Carbon Dioxide (21-32) mmol/L Anion Gap (3-11) BUN (6-23) mg/dl Creatinine (0.6-1.2) mg/dl Est Cr Clr Drug Dosing ml/min Est GFR ( Amer) ml/min Est GFR (Non-Af Amer) ml/min BUN/Creatinine Ratio (10-20) Glucose (70-99(Fasting)) mg/dl POC Glucose 157 H 188 H (70-99) mg/dl Calcium (8.6-10.3) mg/dl Magnesium (1.7-2.4) mg/dl Procalcitonin (0-0.5) ng/ml Medications Administered Current Inpatient Medications Acetaminophen (Acetaminophen 325 Mg Tab) 650 mg PO QID PRN PRN Reason: pain/fever Stop: 01/05/24 23:02 Last Admin: 12/08/23 07:53 Dose: 650 mg Amlodipine Besylate (Amlodipine Besylate 5 Mg Tab) 10 mg PO [facility] Stop: 01/06/24 08:59 Last Admin: 12/09/23 08:31 Dose: 10 mg Aspirin (Aspirin 81 Mg Ectab) [facility] Stop: 01/06/24 08:59 Last Admin: 12/09/23 08:32 Dose: 81 mg Atorvastatin Calcium (Atorvastatin 40 Mg Tab) 80 mg PO [facility] Stop: 01/06/24 20:59 Last Admin: 12/08/23 20:11 Dose: 80 mg Carvedilol (Carvedilol 12.5 Mg Tab) 37.5 mg PO BIDM [facility] Stop: 01/08/24 16:59 Cyanocobalamin (Cyanocobalamin (B-12) 500 Mcg Tablet) 500 [facility]cg [facility] Stop: 01/06/24 08:59 Last Admin: 12/09/23 08:31 Dose: 500 mcg Dextrose (Dextrose 50% 50 Ml Syringe) 25 - 50 ml IV UD PRN; Protocol PRN Reason: Hypoglycemia Protocol Stop: 01/06/24 01:02 Folic Acid (Folic Acid 1 Mg Tab) 1 mg PO QAM [facility] Stop: 01/06/24 08:59 Last Admin: 12/09/23 08:31 Dose: 1 mg Furosemide (Furosemide 40 Mg/4 Ml Vial) 80 mg IV [id number] [facility] Stop: 01/08/24 13:59 Last Admin: 12/09/23 13:48 Dose: 80 mg Glucagon (Glucagon For Inj 1 Mg Vial) 1 mg SQ UD PRN; Protocol PRN Reason: Hypoglycemia Protocol Stop: 01/06/24 01:02 Glucose (Glucose 40% Gel 15 Gm Tube) 15 - 30 gm PO UD PRN; Protocol PRN Reason: Hypoglycemia Protocol Stop: 01/06/24 01:02 Glucose (Glucose 10 Tab/Tube) 4 - 8 tab PO UD PRN; Protocol PRN Reason: Hypoglycemia Treatment Stop: 01/06/24 01:02 Guaifenesin (Guaifenesin 600 Mg Tabcr) 600 mg PO Q12 [facility] Stop: 01/08/24 09:34 Last Admin: 12/09/23 11:13 Dose: 600 mg Heparin Sodium (Porcine) (Heparin Sod 5,000 Unit/0.5 Ml Vial) 5,000 units SQ Q8 [facility] Stop: 01/08/24 07:59 Last Admin: 12/09/23 13:29 Dose: 5,000 units Hydralazine HCl (Hydralazine Tab 50 Mg Tab) 100 mg PO TID [facility] Stop: 01/06/24 08:59 Last Admin: 12/09/23 13:29 Dose: 100 mg Promethazine HCl 6.25 mg/ (Sodium Chloride) 50.25 mls @ 201 mls/hr IV Q6H PRN PRN Reason: Nausea And Vomiting Stop: 01/05/24 23:02 Insulin Aspart (Insulin Aspart Per Unit Charge) 0 units SC ACHS [facility] Stop: 01/06/24 01:29 Last Admin: 12/09/23 11:38 Dose: 7 units Insulin Glargine (Lantus Per Unit Charge) 15 units SC QAM [facility] Stop: 01/07/24 08:59 Last Admin: 12/09/23 08:32 Dose: 15 units Isosorbide Dinitrate (Isosorbide Dinitrate 20 Mg Tab) 40 mg PO TID@0700,1200,1700 [facility] Stop: 01/06/24 11:59 Last Admin: 12/09/23 11:42 Dose: 40 mg Levalbuterol HCl (Levalbuterol Hcl 0.63 Mg/3 Ml Neb) 0.63 mg NEB Q6H PRN; Protocol PRN Reason: Shortness Of Breath Or Wheezing Stop: 01/06/24 10:39 Last Admin: 12/09/23 13:46 Dose: 0.63 mg Loratadine (Loratadine 10 Mg Tab) 10 mg PO HS [facility] Stop: 01/06/24 20:59 Last Admin: 12/08/23 20:11 Dose: 10 mg Magnesium Chloride (Magnesium Chloride W/Calcium 64mg Delayed Rel Tab) 64 mg PO DAILY [facility] Stop: 01/06/24 08:59 Last Admin: 12/09/23 08:31 Dose: 64 mg Miscellaneous (Carbohydrates For Hypoglycemia ) 15 - 30 gm PO UD PRN PRN Reason: Hypoglycemia Protocol Stop: 01/06/24 01:02 Potassium Chloride (Potassium Chloride Crtab 20 Meq Tabcr) 20 meq PO BID17 [facility] Stop: 01/06/24 08:59 Last Admin: 12/09/23 08:43 Dose: 20 meq Sertraline HCl (Sertraline Hcl 50 Mg Tablet) 50 mg PO QAM [facility] Stop: 01/06/24 09:14 Last Admin: 12/09/23 08:31 Dose: 50 mg Tramadol HCl (Tramadol Hcl 50 Mg Tablet) 25 mg PO Q4H PRN PRN Reason: Pain Stop: 01/05/24 23:02
[2023-12-09] MEDS: carvediloL 12.5 MG TAB PO SCH (16:32)
[2023-12-10 06:56] LABS: BUN Creatinine Ratio 23.3 (10-20); Calcium 8.8 mg/dl (8.6-10.3); Creatinine Clr Calc Pharmacy 23.7 ml/min; Est GFR (Non-African American) 27.6 ml/min; Magnesium 2.1 mg/dl (1.7-2.4); Phosphorus 3.7 mg/dl (2.5-4.9); Potassium 3.4 mmol/L (3.5-5.1)
[2023-12-10] MEDS: POTASSIUM CHLORIDE CRTAB 20 MEQ TABCR PO ONE (07:55)
--- NOTE | 2023-12-10 09:09 | Hospitalist Progress Note ---
Date of Service December 10, 2023 Assessment & Plan (1) Acute on chronic congestive heart failure: Plan: Acute respiratory failure with hypoxia Acute on chronic systolic and diastolic heart failure--POA Chronic left bundle branch block --CTA:No evidence of pulmonary embolus. Cardiomegaly and likely moderate edema. Small bilateral pleural effusions with underlying atelectasis. Bladder wall thickening compatible with infectious/inflammatory airways disease and reactive lymphadenopathy. -- Echo: Abnormal septal motion consistent with underlying LBBB. EF 45 to 50%. Mild mitral regurgitation with mild to moderate tricuspid regurgitation. Pulmonary artery systolic pressure estimated to be 50 mmHg. Grade 2 diastolic dysfunction Continue IV Lasix as per cardiology and nephrology - > now increased to 80 lasix iv bid Appreciate cardiology input Carvedilol dose increased to 37.5 mg twice a day Imdur dose increased to 40 mg 3 times a day Continue supplemental oxygen as needed, currently on 3 L of suppl.O2 Monitor volume status, I's and O's, daily weight Avoid HCTZ, ANANT, ARB, Entresto, spironolactone, eplerenone due to renal dysfunction/solitary kidney/poor tolerance per cardiology Will need 2 step prior to discharge Continue IV diuresis as able Nebs as needed Mild troponin elevation Likely demand ischemia secondary to above Monitor Chronic hyponatremia Likely due to diuretics Hypokalemia Monitor sodium levels Replete electrolytes as needed Sodium 133 today Nephrology following PVD Continue aspirin, statin Hypertension Continue amlodipine, Coreg, hydralazine Also on isosorbide Monitor BP Hyperlipidemia on statin DM II Last HbA1c 5.0 Continue insulin while hospitalized Monitor BGs CKD IV H/O renal artery stenosis Avoid nephrotoxic agents as able Monitor renal function Nephrology following Creatinine 1.6 today Chronic Anemia MUGS No acute bleeding issues Monitor CBC 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 O2 Cardiology and nephrology following - discussed w/ nephro - will cont. lasix 80 iv bid as clinically improved and Cr also improved today Daughter Nancy present at the bedside yesterday and updated Pt denies any chest pain, abdominal pain, dizziness Review of Systems Review of Systems: All systems reviewed & are unremarkable except as noted in Subjective Physical Exam Physical Exam: General Appearance: Moderately built and nourished, elderly F in NAD Head: NC/AT Eyes: normal inspection, EOMI Neck: supple Respiratory/Chest: Decreased breath sounds, basal crackles, No accessory muscle use Cardiovascular: S1, S2, +murmur Abdomen/GI:Soft, Non tender, Bowel sounds present Extremities/Musculoskeletal:normal inspection, 1+ edema Neurologic/Psych:AAOX3, answers appropriately, speech fluent, moves extremities Skin: normal color, warm Results & Data Results & Data Vital Signs (Past 12 Hours) Vital Signs Temp Pulse Pulse Resp BP Pulse Ox O2 Del Method 12/10/23 08:00 36.9 C 78 18 179/82 H 96 Nasal Cannula 12/10/23 07:29 79 16 98 Nasal Cannula 12/10/23 03:22 37.1 C 73 20 153/67 H 98 Nasal Cannula 12/09/23 23:53 36.5 C 74 19 137/66 97 Nasal Cannula 12/09/23 23:50 69 O2 Flow Rate 12/10/23 08:00 3.0 12/10/23 07:29 4 12/10/23 03:22 12/09/23 23:53 12/09/23 23:50 Laboratory Results 12/10/23 12/10/23 12/09/23 Range/Units 07:17 05:42 23:08 Sodium 133 L (136-145) mmol/L Potassium 3.4 L (3.5-5.1) mmol/L Chloride 99 (98-107) mmol/L Carbon Dioxide 25 (21-32) mmol/L Anion Gap 9 (3-11) BUN 38 H (6-23) mg/dl Creatinine 1.63 H (0.6-1.2) mg/dl Est Cr Clr Drug Dosing 23.7 ml/min Est GFR ( Amer) 32.0 ml/min Est GFR (Non-Af Amer) 27.6 ml/min BUN/Creatinine Ratio 23.3 H (10-20) Glucose 174 H (70-99(Fasting)) mg/dl POC Glucose 181 H 164 H (70-99) mg/dl Calcium 8.8 (8.6-10.3) mg/dl Phosphorus 3.7 (2.5-4.9) mg/dl Magnesium 2.1 (1.7-2.4) mg/dl 12/09/23 12/09/23 12/09/23 Range/Units 19:54 16:08 15:01 Sodium (136-145) mmol/L Potassium (3.5-5.1) mmol/L Chloride (98-107) mmol/L Carbon Dioxide (21-32) mmol/L Anion Gap (3-11) BUN (6-23) mg/dl Creatinine (0.6-1.2) mg/dl Est Cr Clr Drug Dosing ml/min Est GFR ( Amer) ml/min Est GFR (Non-Af Amer) ml/min BUN/Creatinine Ratio (10-20) Glucose (70-99(Fasting)) mg/dl POC Glucose 112 H 97 93 (70-99) mg/dl Calcium (8.6-10.3) mg/dl Phosphorus (2.5-4.9) mg/dl Magnesium (1.7-2.4) mg/dl 12/09/23 12/09/23 12/09/23 Range/Units 14:38 14:33 11:16 Sodium (136-145) mmol/L Potassium (3.5-5.1) mmol/L Chloride (98-107) mmol/L Carbon Dioxide (21-32) mmol/L Anion Gap (3-11) BUN (6-23) mg/dl Creatinine (0.6-1.2) mg/dl Est Cr Clr Drug Dosing ml/min Est GFR ( Amer) ml/min Est GFR (Non-Af Amer) ml/min BUN/Creatinine Ratio (10-20) Glucose (70-99(Fasting)) mg/dl POC Glucose 55 L* 53 L* 259 H (70-99) mg/dl Calcium (8.6-10.3) mg/dl Phosphorus (2.5-4.9) mg/dl Magnesium (1.7-2.4) mg/dl Medications Administered Current Inpatient Medications Acetaminophen (Acetaminophen 325 Mg Tab) 650 mg PO QID PRN PRN Reason: pain/fever Stop: 01/05/24 23:02 Last Admin: 12/08/23 07:53 Dose: 650 mg Amlodipine Besylate (Amlodipine Besylate 5 Mg Tab) 10 mg PO QAM [facility] Stop: 01/06/24 08:59 Last Admin: 12/10/23 07:56 Dose: 10 mg Aspirin (Aspirin 81 Mg Ectab) 81 mg PO QAM [facility] Stop: 01/06/24 08:59 Last Admin: 12/10/23 07:57 Dose: 81 mg Atorvastatin Calcium (Atorvastatin 40 Mg Tab) 80 mg PO HS [facility] Stop: 01/06/24 20:59 Last Admin: 12/09/23 20:04 Dose: 80 mg Carvedilol (Carvedilol 12.5 Mg Tab) 37.5 mg PO BIDM [facility] Stop: 01/08/24 16:59 Last Admin: 12/10/23 07:57 Dose: 37.5 mg Cyanocobalamin (Cyanocobalamin (B-12) 500 Mcg Tablet) 500 mcg PO QAM [facility] Stop: 01/06/24 08:59 Last Admin: 12/10/23 07:57 Dose: 500 mcg Dextrose (Dextrose 50% 50 Ml Syringe) 25 - 50 ml IV UD PRN; Protocol PRN Reason: Hypoglycemia Protocol Stop: 01/06/24 01:02 Folic Acid (Folic Acid 1 Mg Tab) 1 mg PO QAM [facility] Stop: 01/06/24 08:59 Last Admin: 12/10/23 07:56 Dose: 1 mg Furosemide (Furosemide 40 Mg/4 Ml Vial) 80 mg IV [id number] [facility] Stop: 01/08/24 13:59 Last Admin: 12/10/23 07:55 Dose: 80 mg Glucagon (Glucagon For Inj 1 Mg Vial) 1 mg SQ UD PRN; Protocol PRN Reason: Hypoglycemia Protocol Stop: 01/06/24 01:02 Glucose (Glucose 40% Gel 15 Gm Tube) 15 - 30 gm PO UD PRN; Protocol PRN Reason: Hypoglycemia Protocol Stop: 01/06/24 01:02 Glucose (Glucose 10 Tab/Tube) 4 - 8 tab PO UD PRN; Protocol PRN Reason: Hypoglycemia Treatment Stop: 01/06/24 01:02 Guaifenesin (Guaifenesin 600 Mg Tabcr) 600 mg PO Q12 [facility] Stop: 01/08/24 09:34 Last Admin: 12/10/23 07:56 Dose: 600 mg Heparin Sodium (Porcine) (Heparin Sod 5,000 Unit/0.5 Ml Vial) 5,000 units SQ Q8 [facility] Stop: 01/08/24 07:59 Last Admin: 12/10/23 06:17 Dose: 5,000 units Hydralazine HCl (Hydralazine Tab 50 Mg Tab) 100 mg PO TID [facility] Stop: 01/06/24 08:59 Last Admin: 12/10/23 07:56 Dose: 100 mg Promethazine HCl 6.25 mg/ (Sodium Chloride) 50.25 mls @ 201 mls/hr IV Q6H PRN PRN Reason: Nausea And Vomiting Stop: 01/05/24 23:02 Insulin Aspart (Insulin Aspart Per Unit Charge) 0 units SC ACHS [facility] Stop: 01/06/24 01:29 Last Admin: 12/10/23 07:41 Dose: 4 units Insulin Glargine (Lantus Per Unit Charge) 15 units SC QAM [facility] Stop: 01/07/24 08:59 Last Admin: 12/10/23 07:42 Dose: 15 units Isosorbide Dinitrate (Isosorbide Dinitrate 20 Mg Tab) 40 mg PO TID@0700,1200,1700 [facility] Stop: 01/06/24 11:59 Last Admin: 12/10/23 07:57 Dose: 40 mg Levalbuterol HCl (Levalbuterol Hcl 0.63 Mg/3 Ml Neb) 0.63 mg NEB Q6H PRN; Protocol PRN Reason: Shortness Of Breath Or Wheezing Stop: 01/06/24 10:39 Last Admin: 12/10/23 07:28 Dose: 0.63 mg Loratadine (Loratadine 10 Mg Tab) 10 mg PO HS [facility] Stop: 01/06/24 20:59 Last Admin: 12/09/23 20:02 Dose: Not Given Magnesium Chloride (Magnesium Chloride W/Calcium 64mg Delayed Rel Tab) 64 mg PO DAILY [facility] Stop: 01/06/24 08:59 Last Admin: 12/10/23 07:56 Dose: 64 mg Miscellaneous (Carbohydrates For Hypoglycemia ) 15 - 30 gm PO UD PRN PRN Reason: Hypoglycemia Protocol Stop: 01/06/24 01:02 Potassium Chloride (Potassium Chloride Crtab 20 Meq Tabcr) 20 meq PO BID17 [facility] Stop: 01/06/24 08:59 Last Admin: 12/10/23 07:55 Dose: 20 meq Sertraline HCl (Sertraline Hcl 50 Mg Tablet) 50 mg PO QAM [facility] Stop: 01/06/24 09:14 Last Admin: 12/10/23 07:56 Dose: 50 mg Tramadol HCl (Tramadol Hcl 50 Mg Tablet) 25 mg PO Q4H PRN PRN Reason: Pain Stop: 01/05/24 23:02
--- NOTE | 2023-12-10 11:49 | Cardiology Progress Note ---
Date of Service December 10, 2023 Assessment & Plan (1) Acute on chronic congestive heart failure: (2) Hypoxia: (3) Anemia: (4) LBBB (left bundle branch block): (5) Elevated troponin: (6) Hypertension, uncontrolled: (7) JOSE (acute kidney injury): Plan 88 year old female admitted with signs and symptoms of acute decompensated congestive heart failure with associated hypoxemia and uncontrolled hypertension. Patient with longstanding history of hypertension, diastolic heart failure, stage III chronic kidney disease, atherosclerotic carotid disease, renal artery stenosis, presumed underlying coronary artery disease. Troponin mildly elevated likely secondary to demand ischemia in the setting of acute decompensated heart failure, hypertension, and CKD with acute renal dysfunction noted following administration of IV contrast. Nephrology input noted and appreciated. IV furosemide dosing increased with symptomatic improvement, improved creatinine. Will continue IV furosemide as presently prescribed along with all other measures including nebulizer treatments and Muc inex. Oral potassium supplementation ordered noting mild hypokalemia on a.m. labs. I spent a total of 27 minutes on the date of service in preparation, delivery, and documentation of the care provided to this patient excluding any time spent in the performance of separately billed services. This visit was a split-shared visit with the substantive portion of the medical decision making performed by the supervising malthouse laborer/billing provider. Admission and Anticipated Discharge Date Admission Date: December 06, 2023 Supervising Physician Co-Signing Physician Notes Attending attestation: Case reviewed with the advanced practitioner. I have personally performed a history and physical examination on the patient. I have reviewed the advanced practitioner's documentation on the date of service referenced in note, and I agree with, and take responsibility for the plan of care. Telemetry reveals SR in the 70s with chronic LBBB, and PVCs. Potassium supplemented. Continue furosemide 80 mg IV twice daily. I spent a total of 20 minutes coordinating, documenting, and providing care for this patient excluding time spent in the performance of separately billed services or time spent by another provider. Martinez Lazaro, DO Subjective Patient seen and examined. Chart, medications, and telemetry reviewed. "Everything is better." Notes benefit from IV furosemide, nebulizer treatments, and Mucinex. No chest pain. No palpitations. No orthopnea or PND. No lower extremity peripheral edema. Creatinine improved Telemetry: Sinus with occasional ventricular ectopy, heart rates predominantly in the 60s and 70s. Review of Systems Review of Systems: Complete review of systems is otherwise as stated above, negative, or noncontributory Physical Exam Physical Exam: General: A&Ox3. NAD. HENT: Normocephalic. Atraumatic. Eyes: PER. Conjunctiva pink, sclera clear. Neck: No JVD. Heart: RRR, 70 bpm. + Gallop. Soft systolic ejection murmur. Lungs: Right basilar Rales. No wheeze. Abdomen: +BS. Soft. Nontender. No masses or organomegaly. Extremities: No edema. No clubbing. No cyanosis Limited neurological examination is without focal deficits. Results & Data Vital Signs (Past 12 Hours) Vital Signs Temp Pulse Pulse Resp BP Pulse Ox O2 Del Method 12/10/23 10:12 Nasal Cannula 12/10/23 08:00 36.9 C 78 18 179/82 H 96 Nasal Cannula 12/10/23 07:29 79 16 98 Nasal Cannula 12/10/23 03:22 37.1 C 73 20 153/67 H 98 Nasal Cannula 12/09/23 23:53 36.5 C 74 19 137/66 97 Nasal Cannula 12/09/23 23:50 69 O2 Flow Rate 12/10/23 10:12 4 12/10/23 08:00 3.0 12/10/23 07:29 4 12/10/23 03:22 12/09/23 23:53 12/09/23 23:50 Laboratory Results Comprehensive Metabolic Panel 12/10/23 Range/Units 05:42 Sodium 133 L (136-145) mmol/L Potassium 3.4 L (3.5-5.1) mmol/L Chloride 99 (98-107) mmol/L Carbon Dioxide 25 (21-32) mmol/L BUN 38 H (6-23) mg/dl Creatinine 1.63 H (0.6-1.2) mg/dl Glucose 174 H (70-99(Fasting)) mg/dl Calcium 8.8 (8.6-10.3) mg/dl Intake and Output 12/09/23 12/10/23 12/10/23 22:59 06:59 14:59 Output Total 1427 / 2727 450 / 2727 250 / 250 Balance -1427 / -2727 -450 / -2727 -250 / -250 Output: Urine 1427 / 2727 450 / 2727 250 / 250 Other: Weight 81.5 kg (3) Anemia Anemia type: unspecified type Qualified Code(s): D64.9 - Anemia, unspecified
[2023-12-11 06:23] LABS: Hematocrit (blood only) 23.7 % (37.0-47.0); Hemoglobin 7.8 g/dl (12.0-16.0); Mean Corpuscular Hemoglobin 30.2 pg (25.0-34.0); Mean Corpuscular Hgb Conc 32.9 g/dL (32.0-36.0); Mean Corpuscular Volume 91.9 fL (80.0-100.0); Mean Platelet Volume 9.7 fL (9.4-12.4); Platelet Count 261 K/uL (130-400); RDW Coefficient of Variation 14.7 % (11.5-14.5); RDW Standard Deviation 49.4 fL (36.4-46.3); Red Blood Count 2.58 M/uL (4.20-5.40); White Blood Count 6.73 K/ul (4.8-10.8)
[2023-12-11 06:27] LABS: BUN Creatinine Ratio 24.3 (10-20); Creatinine Clr Calc Pharmacy 22.3 ml/min; Est GFR (African American) 29.8 ml/min; Est GFR (Non-African American) 25.7 ml/min; Magnesium 1.9 mg/dl (1.7-2.4); Phosphorus 3.4 mg/dl (2.5-4.9); Potassium 3.3 mmol/L (3.5-5.1)
--- NOTE | 2023-12-11 08:56 | Cardiology Progress Note ---
Date of Service December 11, 2023 Assessment & Plan (1) Acute on chronic congestive heart failure: (2) Hypoxia: (3) Anemia: (4) LBBB (left bundle branch block): (5) Elevated troponin: (6) Hypertension, uncontrolled: (7) JOSE (acute kidney injury): Plan 88 year old female admitted with signs and symptoms of acute decompensated congestive heart failure with associated hypoxemia and uncontrolled hypertension. Patient with longstanding history of hypertension, diastolic heart failure, stage III chronic kidney disease, atherosclerotic carotid disease, renal artery stenosis, presumed underlying coronary artery disease. Troponin mildly elevated likely secondary to demand ischemia in the setting of acute decompensated heart failure, hypertension, and CKD with acute renal dysfunction noted following administration of IV contrast. Nephrology input noted and appreciated. Recommendations: 1. Consider transfusion of pRBC's today 2. Continue IV furosemide today then likely switch to oral in AM of 12/12/2023 3. Additional potassium supplementation today. I spent a total of 32 minutes on the date of service in preparation, delivery, and documentation of the care provided to this patient excluding any time spent in the performance of separately billed services. This visit was a split-shared visit with the substantive portion of the medical decision making performed by the supervising environmental services floor tech/billing provider. Admission and Anticipated Discharge Date Admission Date: December 06, 2023 Supervising Physician Co-Signing Physician Notes I have personally performed a history and physical examination on the patient. I have reviewed the advance practitioner's documentation, and I agree with, and take responsibility for the plan of care. Blood pressure control improved. Continue IV diuresis. Transition to oral diuretic therapy in a.m. 12/12/2023. Monitor fluid balance, daily weight, GFR, and electrolytes. I spent a total of 20 minutes on the date of service in preparation, delivery, and documentation of the care provided to this patient, excluding any time spent in the performance of separately billed services. Subjective Patient seen and examined. Chart, medications, telemetry reviewed. Complaints: Weak and tired. Breathing continues to improve, not yet back to baseline. No chest discomfort. Some of her family is now in [facility]; her daughter will be coming in from [place] on Thursday. I's/O's -2727, -1211; negative 5,113 overall Hemoglobin 7.8 g/dL Creatinine 1.73 Potassium 3.3. Telemetry sinus with ventricular ectopy, heart rates predominantly in the 60s and 70s Review of Systems Review of Systems: Complete review of systems is otherwise as stated above, negative, or noncontributory Physical Exam Physical Exam: General: A&Ox3. NAD. HENT: Normocephalic. Atraumatic. Eyes: PER. Conjunctiva pink, sclera clear. Neck: No JVD. Heart: Irregular with occasional ectopy, 70 bpm. + Gallop. Soft systolic ejection murmur. Lungs: Clear. No wheeze. Abdomen: +BS. Soft. Nontender. No masses or organomegaly. Extremities: No edema. No clubbing. No cyanosis Limited neurological examination is without focal deficits. Results & Data Vital Signs (Past 12 Hours) Vital Signs Temp Pulse Pulse Resp BP Pulse Ox O2 Del Method 12/11/23 07:58 36.9 C 70 19 161/78 H 99 Nasal Cannula 12/11/23 07:18 65 16 99 Nasal Cannula 12/11/23 03:06 36.8 C 65 18 152/53 H 98 Nasal Cannula 12/11/23 00:00 71 12/10/23 23:10 36.7 C 68 19 152/68 H 99 Nasal Cannula O2 Flow Rate 12/11/23 07:58 3.0 12/11/23 07:18 3 12/11/23 03:06 12/11/23 00:00 12/10/23 23:10 Laboratory Results CBC 12/11/23 Range/Units 05:44 WBC 6.73 (4.8-10.8) K/ul RBC 2.58 L (4.20-5.40) M/uL Hgb 7.8 L (12.0-16.0) g/dl Hct 23.7 L (37.0-47.0) % Plt Count 261 (130-400) K/uL Comprehensive Metabolic Panel 12/11/23 Range/Units 05:44 Sodium 133 L (136-145) mmol/L Potassium 3.3 L (3.5-5.1) mmol/L Chloride 98 (98-107) mmol/L Carbon Dioxide 25 (21-32) mmol/L BUN 42 H (6-23) mg/dl Creatinine 1.73 H (0.6-1.2) mg/dl Glucose 208 H (70-99(Fasting)) mg/dl Calcium 9.0 (8.6-10.3) mg/dl Intake and Output 12/10/23 12/11/23 12/11/23 22:59 06:59 14:59 Intake Total 1190 / 1190 Output Total 901 / 2401 700 / 2401 Balance 289 / -1211 -700 / -1211 Intake: Oral 1190 / 1190 Output: Urine 901 / 2401 700 / 2401 Other: Weight 81.3 kg Weight Measurement Method Built in [facility] (3) Anemia Anemia type: unspecified type Qualified Code(s): D64.9 - Anemia, unspecified
--- NOTE | 2023-12-11 09:27 | Hospitalist Progress Note ---
Date of Service December 11, 2023 Assessment & Plan (1) Acute on chronic congestive heart failure: Plan: Acute respiratory failure with hypoxia Acute on chronic systolic and diastolic heart failure--POA Chronic left bundle branch block --CTA:No evidence of pulmonary embolus. Cardiomegaly and likely moderate edema. Small bilateral pleural effusions with underlying atelectasis. Bladder wall thickening compatible with infectious/inflammatory airways disease and reactive lymphadenopathy. -- Echo: Abnormal septal motion consistent with underlying LBBB. EF 45 to 50%. Mild mitral regurgitation with mild to moderate tricuspid regurgitation. Pulmonary artery systolic pressure estimated to be 50 mmHg. Grade 2 diastolic dysfunction Continue IV Lasix as per cardiology and nephrology - > now increased to 80 lasix iv bid Appreciate cardiology input Carvedilol dose increased to 37.5 mg twice a day Imdur dose increased to 40 mg 3 times a day Continue supplemental oxygen as needed, currently on 1.5 L of suppl.O2 Monitor volume status, I's and O's, daily weight Avoid HCTZ, ANANT, ARB, Entresto, spironolactone, eplerenone due to renal dysfunction/solitary kidney/poor tolerance per cardiology May need 2 step prior to discharge Continue IV diuresis 80 iv bid -> plan to switch to PO tmrw Nebs as needed Mild troponin elevation Likely demand ischemia secondary to above Monitor Chronic hyponatremia Likely due to diuretics Hypokalemia Monitor sodium levels Replete electrolytes as needed Nephrology following PVD Continue aspirin, statin Hypertension Continue amlodipine, Coreg, hydralazine Also on isosorbide Monitor BP Hyperlipidemia on statin DM II Last HbA1c 5.0 Continue insulin while hospitalized Monitor BGs CKD IV H/O renal artery stenosis Avoid nephrotoxic agents as able Monitor renal function Nephrology following Creatinine 1.7 today Chronic Anemia MUGS No acute bleeding issues Monitor CBC 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 O2 Cardiology and nephrology following - discussed w/ nephro - plan to switch to lasix 80 iv bid to PO tmrw Pt denies any chest pain, abdominal pain, dizziness She says she feels anxious as her children are away on vacation Review of Systems Review of Systems: All systems reviewed & are unremarkable except as noted in Subjective Physical Exam Physical Exam: General Appearance: Moderately built and nourished, elderly F in NAD, on suppl. O2 Head: NC/AT Eyes: normal inspection, EOMI Neck: supple Respiratory/Chest: Decreased breath sounds, basal crackles, No accessory muscle use Cardiovascular: S1, S2, +murmur Abdomen/GI:Soft, Non tender, Bowel sounds present Extremities/Musculoskeletal:normal inspection, 1+ edema Neurologic/Psych:AAOX3, answers appropriately, speech fluent, moves extremities Skin: normal color, warm Results & Data Results & Data Vital Signs (Past 12 Hours) Vital Signs Temp Pulse Pulse Resp BP Pulse Ox O2 Del Method 12/11/23 07:58 36.9 C 70 19 161/78 H 99 Nasal Cannula 12/11/23 07:18 65 16 99 Nasal Cannula 12/11/23 03:06 36.8 C 65 18 152/53 H 98 Nasal Cannula 12/11/23 00:00 71 12/10/23 23:10 36.7 C 68 19 152/68 H 99 Nasal Cannula O2 Flow Rate 12/11/23 07:58 3.0 12/11/23 07:18 3 12/11/23 03:06 12/11/23 00:00 12/10/23 23:10 Laboratory Results 12/11/23 12/11/23 12/10/23 Range/Units 07:12 05:44 20:29 WBC 6.73 (4.8-10.8) K/ul RBC 2.58 L (4.20-5.40) M/uL Hgb 7.8 L (12.0-16.0) g/dl Hct 23.7 L (37.0-47.0) % MCV 91.9 (80.0-100.0) fL MCH 30.2 (25.0-34.0) pg MCHC 32.9 (32.0-36.0) g/dL RDW Std Deviation 49.4 H (36.4-46.3) fL RDW Coeff of Rojelio 14.7 H (11.5-14.5) % Plt Count 261 (130-400) K/uL MPV 9.7 (9.4-12.4) fL Sodium 133 L (136-145) mmol/L Potassium 3.3 L (3.5-5.1) mmol/L Chloride 98 (98-107) mmol/L Carbon Dioxide 25 (21-32) mmol/L Anion Gap 10 (3-11) BUN 42 H (6-23) mg/dl Creatinine 1.73 H (0.6-1.2) mg/dl Est Cr Clr Drug Dosing 22.3 ml/min Est GFR ( Amer) 29.8 ml/min Est GFR (Non-Af Amer) 25.7 ml/min BUN/Creatinine Ratio 24.3 H (10-20) Glucose 208 H (70-99(Fasting)) mg/dl POC Glucose 229 H 163 H (70-99) mg/dl Calcium 9.0 (8.6-10.3) mg/dl Phosphorus 3.4 (2.5-4.9) mg/dl Magnesium 1.9 (1.7-2.4) mg/dl 12/10/23 12/10/23 Range/Units 16:19 11:24 WBC (4.8-10.8) K/ul RBC (4.20-5.40) M/uL Hgb (12.0-16.0) g/dl Hct (37.0-47.0) % MCV (80.0-100.0) fL MCH (25.0-34.0) pg MCHC (32.0-36.0) g/dL RDW Std Deviation (36.4-46.3) fL RDW Coeff of Rojelio (11.5-14.5) % Plt Count (130-400) K/uL MPV (9.4-12.4) fL Sodium (136-145) mmol/L Potassium (3.5-5.1) mmol/L Chloride (98-107) mmol/L Carbon Dioxide (21-32) mmol/L Anion Gap (3-11) BUN (6-23) mg/dl Creatinine (0.6-1.2) mg/dl Est Cr Clr Drug Dosing ml/min Est GFR ( Amer) ml/min Est GFR (Non-Af Amer) ml/min BUN/Creatinine Ratio (10-20) Glucose (70-99(Fasting)) mg/dl POC Glucose 107 H 208 H (70-99) mg/dl Calcium (8.6-10.3) mg/dl Phosphorus (2.5-4.9) mg/dl Magnesium (1.7-2.4) mg/dl Medications Administered Current Inpatient Medications Acetaminophen (Acetaminophen 325 Mg Tab) 650 mg PO QID PRN PRN Reason: pain/fever Stop: 01/05/24 23:02 Last Admin: 12/08/23 07:53 Dose: 650 mg Amlodipine Besylate (Amlodipine Besylate 5 Mg Tab) 10 mg PO QAM [facility] Stop: 01/06/24 08:59 Last Admin: 12/11/23 07:55 Dose: 10 mg Aspirin (Aspirin 81 Mg Ectab) [facility] Stop: 01/06/24 08:59 Last Admin: 12/11/23 07:56 Dose: 81 mg Atorvastatin Calcium (Atorvastatin 40 Mg Tab) 80 mg PO HS [facility] Stop: 01/06/24 20:59 Last Admin: 12/10/23 21:10 Dose: 80 mg Carvedilol (Carvedilol 12.5 Mg Tab) 37.5 mg PO BIDM [facility] Stop: 01/08/24 16:59 Last Admin: 12/11/23 07:55 Dose: 37.5 mg Cyanocobalamin (Cyanocobalamin (B-12) 500 Mcg Tablet) 500 mcg PO QAM [facility] Stop: 01/06/24 08:59 Last Admin: 12/11/23 07:56 Dose: 500 mcg Dextrose (Dextrose 50% 50 Ml Syringe) 25 - 50 ml IV UD PRN; Protocol PRN Reason: Hypoglycemia Protocol Stop: 01/06/24 01:02 Folic Acid (Folic Acid 1 Mg Tab) 1 mg PO QAM [facility] Stop: 01/06/24 08:59 Last Admin: 12/11/23 07:56 Dose: 1 mg Furosemide (Furosemide 40 Mg/4 Ml Vial) 80 mg IV [id number] [facility] Stop: 01/08/24 13:59 Last Admin: 12/11/23 06:41 Dose: 80 mg Glucagon (Glucagon For Inj 1 Mg Vial) 1 mg SQ UD PRN; Protocol PRN Reason: Hypoglycemia Protocol Stop: 01/06/24 01:02 Glucose (Glucose 40% Gel 15 Gm Tube) 15 - 30 gm PO UD PRN; Protocol PRN Reason: Hypoglycemia Protocol Stop: 01/06/24 01:02 Glucose (Glucose 10 Tab/Tube) 4 - 8 tab PO UD PRN; Protocol PRN Reason: Hypoglycemia Treatment Stop: 01/06/24 01:02 Guaifenesin (Guaifenesin 600 Mg Tabcr) 600 mg PO Q12 [facility] Stop: 01/08/24 09:34 Last Admin: 12/11/23 07:57 Dose: 600 mg Heparin Sodium (Porcine) (Heparin Sod 5,000 Unit/0.5 Ml Vial) 5,000 units SQ Q8 [facility] Stop: 01/08/24 07:59 Last Admin: 12/11/23 05:50 Dose: 5,000 units Hydralazine HCl (Hydralazine Tab 50 Mg Tab) 100 mg PO TID [facility] Stop: 01/06/24 08:59 Last Admin: 12/11/23 07:56 Dose: 100 mg Promethazine HCl 6.25 mg/ (Sodium Chloride) 50.25 mls @ 201 mls/hr IV Q6H PRN PRN Reason: Nausea And Vomiting Stop: 01/05/24 23:02 Insulin Aspart (Insulin Aspart Per Unit Charge) 0 units SC ACHS [facility] Stop: 01/06/24 01:29 Last Admin: 12/11/23 07:57 Dose: 6 units Insulin Glargine (Lantus Per Unit Charge) 15 units SC QAM [facility] Stop: 01/07/24 08:59 Last Admin: 12/11/23 07:58 Dose: 15 units Isosorbide Dinitrate (Isosorbide Dinitrate 20 Mg Tab) 40 mg PO TID@0700,1200,1700 [facility] Stop: 01/06/24 11:59 Last Admin: 12/11/23 06:42 Dose: 40 mg Levalbuterol HCl (Levalbuterol Hcl 0.63 Mg/3 Ml Neb) 0.63 mg NEB Q6H PRN; Protocol PRN Reason: Shortness Of Breath Or Wheezing Stop: 01/06/24 10:39 Last Admin: 12/11/23 07:18 Dose: 0.63 mg Loratadine (Loratadine 10 Mg Tab) 10 mg PO HS [facility] Stop: 01/06/24 20:59 Last Admin: 12/10/23 21:11 Dose: Not Given Magnesium Chloride (Magnesium Chloride W/Calcium 64mg Delayed Rel Tab) 64 mg PO DAILY [facility] Stop: 01/06/24 08:59 Last Admin: 12/11/23 07:56 Dose: 64 mg Miscellaneous (Carbohydrates For Hypoglycemia ) 15 - 30 gm PO UD PRN PRN Reason: Hypoglycemia Protocol Stop: 01/06/24 01:02 Potassium Chloride (Potassium Chloride Crtab 20 Meq Tabcr) 20 meq PO BID17 [facility] Stop: 01/06/24 08:59 Last Admin: 12/11/23 08:10 Dose: 20 meq Potassium Chloride (Potassium Chloride Crtab 20 Meq Tabcr) 20 meq PO ONE ONE Stop: 12/11/23 14:01 Sertraline HCl (Sertraline Hcl 50 Mg Tablet) 50 mg PO QAM [facility] Stop: 01/06/24 09:14 Last Admin: 12/11/23 07:56 Dose: 50 mg Tramadol HCl (Tramadol Hcl 50 Mg Tablet) 25 mg PO Q4H PRN PRN Reason: Pain Stop: 01/05/24 23:02
--- NOTE | 2023-12-11 09:30 | Nephrology Progress Note ---
Date of Service December 11, 2023 Assessment & Plan Admission and Anticipated Discharge Date Admission Date: December 06, 2023 Subjective Assessment & Plan (1) JOSE (acute kidney injury): (2) Acute on chronic kidney failure: She has JOSE component with abnormal creatinine coming mainly from her underlying CKd 3B. 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 Despite all that creat at baseline is usually about 1.4. JOSE is from Current issue with Acute CHF/ contrast exposure. however most likely her creat would have gone up even if she did not get the contrast. Agree with cards about not using alissa/ARb/entresto/Aldacotne. No further workup needed for JOSE. her current problem is SOB and needs to be managed first and foremost. She is very worried about the renal numbers--maybe more than she should and I did try to reassure her that it is expected to have some rise in creatinine in acute clinical setting. however unlikely that she will progress to renal replacement therapy. she does need diuretics even if it means somewhat worsened kidney function. at this point the goal is to make her breathing better. Creat running similar at 1.6---1.8 last few days. will count this as baseline (3) Acute on chronic congestive heart failure: Continue iv lasix 80 bid. Change to oral lasix 80 po bid from tomorrow. k is 3.3. got extra 20 today. Give another 20 on top of 20 bid. Some rise in creat is acceptable and expected given her underlying issues with CKD/Dm/Age/WILSON/Single functional Kidney. Agree with cards about not using alissa/ARb/entresto/Aldactone. S--breathing better. Good urine Output. BP is still somewhat high. On NC 3lit. K was low. physical examination elderly white female who is awake alert oriented x3 and she is very knowledgeable with all her complicated medical problems. excellent cognitive status she is however very short of breath and unable to speak in full long sentence mucous membrane is moist neck is supple JVD is present chest bilateral decreased breath sound at the bases with occasional bilateral rhonchi CVS S1 and S2 regular soft systolic murmur heard trace edema abdomen is soft nontender extremities shows trace to 1+ edema skin does not show any obvious rash Results & Data Vital Signs (Past 12 Hours) Vital Signs Temp Pulse Pulse Resp BP Pulse Ox O2 Del Method 12/11/23 07:58 36.9 C 70 19 161/78 H 99 Nasal Cannula 12/11/23 07:18 65 16 99 Nasal Cannula 12/11/23 03:06 36.8 C 65 18 152/53 H 98 Nasal Cannula 12/11/23 00:00 71 12/10/23 23:10 36.7 C 68 19 152/68 H 99 Nasal Cannula O2 Flow Rate 12/11/23 07:58 3.0 12/11/23 07:18 3 12/11/23 03:06 12/11/23 00:00 12/10/23 23:10
[2023-12-11] MEDS: POTASSIUM CHLORIDE CRTAB 20 MEQ TABCR PO STA (09:35)
[2023-12-11] MEDS: POTASSIUM CHLORIDE 20 MEQ/15 ML UDC PO STA (11:56)
[2023-12-11] MEDS: hydrOXYzine HCl 25 MG TAB PO STA (12:32)
[2023-12-11] MEDS: POTASSIUM CHLORIDE CRTAB 20 MEQ TABCR PO ONE (15:19)
[2023-12-11] MEDS: MELATONIN 3 MG TAB PO PRN (21:23)
[2023-12-12 07:02] LABS: BUN Creatinine Ratio 25.5 (10-20); Calcium 9.4 mg/dl (8.6-10.3); Creatinine Clr Calc Pharmacy 23.4 ml/min; Est GFR (African American) 31.6 ml/min; Est GFR (Non-African American) 27.2 ml/min; Hematocrit (blood only) 23.9 % (37.0-47.0); Hemoglobin 7.7 g/dl (12.0-16.0); Magnesium 1.9 mg/dl (1.7-2.4); Potassium 3.4 mmol/L (3.5-5.1)
--- NOTE | 2023-12-12 07:46 | Hospitalist Progress Note ---
Date of Service December 12, 2023 Assessment & Plan (1) Acute on chronic congestive heart failure: Plan: Acute respiratory failure with hypoxia Acute on chronic systolic and diastolic heart failure--POA Chronic left bundle branch block --CTA:No evidence of pulmonary embolus. Cardiomegaly and likely moderate edema. Small bilateral pleural effusions with underlying atelectasis. Bladder wall thickening compatible with infectious/inflammatory airways disease and reactive lymphadenopathy. -- Echo: Abnormal septal motion consistent with underlying LBBB. EF 45 to 50%. Mild mitral regurgitation with mild to moderate tricuspid regurgitation. Pulmonary artery systolic pressure estimated to be 50 mmHg. Grade 2 diastolic dysfunction Continue IV Lasix as per cardiology and nephrology - > now increased to 80 lasix iv bid Appreciate cardiology input Carvedilol dose increased to 37.5 mg twice a day Imdur dose increased to 40 mg 3 times a day Continue supplemental oxygen as needed, currently on 1.5 L of suppl.O2 Monitor volume status, I's and O's, daily weight Avoid HCTZ, ANANT, ARB, Entresto, spironolactone, eplerenone due to renal dysfunction/solitary kidney/poor tolerance per cardiology May need 2 step prior to discharge Continued IV diuresis 80 iv bid -> now switched to PO lasix Nebs as needed Mild troponin elevation Likely demand ischemia secondary to above Monitor Chronic hyponatremia Likely due to diuretics Hypokalemia Monitor sodium levels Replete electrolytes as needed Current Na 136 Nephrology following PVD Continue aspirin, statin Hypertension Continue amlodipine, Coreg, hydralazine Also on isosorbide Monitor BP Hyperlipidemia on statin DM II Last HbA1c 5.0 Continue insulin while hospitalized Monitor BGs CKD IV H/O renal artery stenosis Avoid nephrotoxic agents as able Monitor renal function Nephrology following Creatinine 1.6 today Chronic Anemia MUGS No acute bleeding issues Monitor CBC 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 O2 Cardiology and nephrology following - switched lasix to PO Pt denies any chest pain, abdominal pain, dizziness Review of Systems Review of Systems: All systems reviewed & are unremarkable except as noted in Subjective Physical Exam Physical Exam: General Appearance: Moderately built and nourished, elderly F in NAD, on suppl. O2 Head: NC/AT Eyes: normal inspection, EOMI Neck: supple Respiratory/Chest: Decreased breath sounds, basal crackles, No accessory muscle use Cardiovascular: S1, S2, +murmur Abdomen/GI:Soft, Non tender, Bowel sounds present Extremities/Musculoskeletal:normal inspection, 1+ edema Neurologic/Psych:AAOX3, answers appropriately, speech fluent, moves extremities Skin: normal color, warm Results & Data Results & Data Vital Signs (Past 12 Hours) Vital Signs Temp Pulse Pulse Resp BP BP Pulse Ox 12/12/23 07:07 64 12/12/23 06:27 172/70 H 12/12/23 03:40 36.7 C 67 17 126/74 96 12/12/23 00:00 66 12/11/23 23:52 36.6 C 63 18 123/67 98 12/11/23 20:00 O2 Del Method O2 Flow Rate 12/12/23 07:07 12/12/23 06:27 12/12/23 03:40 Nasal Cannula 1.5 12/12/23 00:00 12/11/23 23:52 Nasal Cannula 1.5 12/11/23 20:00 Nasal Cannula 2 Laboratory Results 12/12/23 12/12/23 12/11/23 Range/Units 07:29 06:14 21:13 Hgb 7.7 L (12.0-16.0) g/dl Hct 23.9 L (37.0-47.0) % Sodium 136 (136-145) mmol/L Potassium 3.4 L (3.5-5.1) mmol/L Chloride 101 (98-107) mmol/L Carbon Dioxide 26 (21-32) mmol/L Anion Gap 9 (3-11) BUN 42 H (6-23) mg/dl Creatinine 1.65 H (0.6-1.2) mg/dl Est Cr Clr Drug Dosing 23.4 ml/min Est GFR ( Amer) 31.6 ml/min Est GFR (Non-Af Amer) 27.2 ml/min BUN/Creatinine Ratio 25.5 H (10-20) Glucose 146 H (70-99(Fasting)) mg/dl POC Glucose 191 H 238 H (70-99) mg/dl Calcium 9.4 (8.6-10.3) mg/dl Magnesium 1.9 (1.7-2.4) mg/dl 12/11/23 12/11/23 Range/Units 16:15 11:21 Hgb (12.0-16.0) g/dl Hct (37.0-47.0) % Sodium (136-145) mmol/L Potassium (3.5-5.1) mmol/L Chloride (98-107) mmol/L Carbon Dioxide (21-32) mmol/L Anion Gap (3-11) BUN (6-23) mg/dl Creatinine (0.6-1.2) mg/dl Est Cr Clr Drug Dosing ml/min Est GFR ( Amer) ml/min Est GFR (Non-Af Amer) ml/min BUN/Creatinine Ratio (10-20) Glucose (70-99(Fasting)) mg/dl POC Glucose 136 H 231 H (70-99) mg/dl Calcium (8.6-10.3) mg/dl Magnesium (1.7-2.4) mg/dl Medications Administered Current Inpatient Medications Acetaminophen (Acetaminophen 325 Mg Tab) 650 mg PO QID PRN PRN Reason: pain/fever Stop: 01/05/24 23:02 Last Admin: 12/08/23 07:53 Dose: 650 mg Amlodipine Besylate (Amlodipine Besylate 5 Mg Tab) [facility] [place] Stop: 01/06/24 08:59 Last Admin: 12/11/23 07:55 Dose: 10 mg Aspirin (Aspirin 81 Mg Ectab) [facility] [place] Stop: 01/06/24 08:59 Last Admin: 12/11/23 07:56 Dose: 81 mg Atorvastatin Calcium (Atorvastatin 40 Mg Tab) 80 mg PO [facility] Stop: 01/06/24 20:59 Last Admin: 12/11/23 21:22 Dose: 80 mg Carvedilol (Carvedilol 12.5 Mg Tab) 37.5 mg PO BIDM [facility] Stop: 01/08/24 16:59 Last Admin: 12/11/23 16:59 Dose: 37.5 mg Cyanocobalamin (Cyanocobalamin (B-12) 500 Mcg Tablet) 500 mcg [facility] [place] Stop: 01/06/24 08:59 Last Admin: 12/11/23 07:56 Dose: 500 mcg Dextrose (Dextrose 50% 50 Ml Syringe) 25 - 50 ml IV UD PRN; Protocol PRN Reason: Hypoglycemia Protocol Stop: 01/06/24 01:02 Folic Acid (Folic Acid 1 Mg Tab) 1 mg PO QAM [facility] Stop: 01/06/24 08:59 Last Admin: 12/11/23 07:56 Dose: 1 mg Furosemide (Furosemide 40 Mg/4 Ml Vial) 80 mg IV [id number] [facility] Stop: 01/08/24 13:59 Last Admin: 12/12/23 06:28 Dose: 80 mg Glucagon (Glucagon For Inj 1 Mg Vial) 1 mg SQ UD PRN; Protocol PRN Reason: Hypoglycemia Protocol Stop: 01/06/24 01:02 Glucose (Glucose 40% Gel 15 Gm Tube) 15 - 30 gm PO UD PRN; Protocol PRN Reason: Hypoglycemia Protocol Stop: 01/06/24 01:02 Glucose (Glucose 10 Tab/Tube) 4 - 8 tab PO UD PRN; Protocol PRN Reason: Hypoglycemia Treatment Stop: 01/06/24 01:02 Guaifenesin (Guaifenesin 600 Mg Tabcr) 600 mg PO Q12 [facility] Stop: 01/08/24 09:34 Last Admin: 12/11/23 21:22 Dose: 600 mg Heparin Sodium (Porcine) (Heparin Sod 5,000 Unit/0.5 Ml Vial) 5,000 units SQ Q8 [facility] Stop: 01/08/24 07:59 Last Admin: 12/12/23 06:28 Dose: 5,000 units Hydralazine HCl (Hydralazine Tab 50 Mg Tab) 100 mg PO TID [facility] Stop: 01/06/24 08:59 Last Admin: 12/11/23 21:22 Dose: 100 mg Promethazine HCl 6.25 mg/ (Sodium Chloride) 50.25 mls @ 201 mls/hr IV Q6H PRN PRN Reason: Nausea And Vomiting Stop: 01/05/24 23:02 Insulin Aspart (Insulin Aspart Per Unit Charge) 0 units SC ACHS [facility] Stop: 01/06/24 01:29 Last Admin: 12/11/23 21:19 Dose: 4 units Insulin Glargine (Lantus Per Unit Charge) 15 units SC QAM [facility] Stop: 01/07/24 08:59 Last Admin: 12/11/23 07:58 Dose: 15 units Isosorbide Dinitrate (Isosorbide Dinitrate 20 Mg Tab) 40 mg PO TID@0700,1200,1700 [facility] Stop: 01/06/24 11:59 Last Admin: 12/12/23 06:28 Dose: 40 mg Levalbuterol HCl (Levalbuterol Hcl 0.63 Mg/3 Ml Neb) 0.63 mg NEB Q6H PRN; Protocol PRN Reason: Shortness Of Breath Or Wheezing Stop: 01/06/24 10:39 Last Admin: 12/11/23 07:18 Dose: 0.63 mg Loratadine (Loratadine 10 Mg Tab) 10 mg PO HS [facility] Stop: 01/06/24 20:59 Last Admin: 12/11/23 21:23 Dose: Not Given Magnesium Chloride (Magnesium Chloride W/Calcium 64mg Delayed Rel Tab) 64 mg PO DAILY [facility] Stop: 01/06/24 08:59 Last Admin: 12/11/23 07:56 Dose: 64 mg Melatonin (Melatonin 3 Mg Tab) 3 mg PO HS PRN PRN Reason: Sleep Stop: 01/10/24 19:23 Last Admin: 12/11/23 21:23 Dose: 3 mg Miscellaneous (Carbohydrates For Hypoglycemia ) 15 - 30 gm PO UD PRN PRN Reason: Hypoglycemia Protocol Stop: 01/06/24 01:02 Potassium Chloride (Potassium Chloride Crtab 20 Meq Tabcr) 20 meq PO BID17 [facility] Stop: 01/06/24 08:59 Last Admin: 12/11/23 17:03 Dose: 20 meq Potassium Chloride (Potassium Chloride Crtab 20 Meq Tabcr) 40 meq PO NOW STA Stop: 12/12/23 07:46 Sertraline HCl (Sertraline Hcl 50 Mg Tablet) 50 mg PO QAM [facility] Stop: 01/06/24 09:14 Last Admin: 12/11/23 07:56 Dose: 50 mg Tramadol HCl (Tramadol Hcl 50 Mg Tablet) 25 mg PO Q4H PRN PRN Reason: Pain Stop: 01/05/24 23:02
[2023-12-12] MEDS: POTASSIUM CHLORIDE CRTAB 20 MEQ TABCR PO STA (08:12)
--- NOTE | 2023-12-12 12:22 | Nephrology Progress Note ---
Date of Service December 12, 2023 Assessment & Plan Admission and Anticipated Discharge Date Admission Date: December 06, 2023 Subjective Assessment & Plan (1) JOSE (acute kidney injury): (2) Acute on chronic kidney failure: She has JOSE component with abnormal creatinine coming mainly from her underlying CKd 3B. 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 Despite all that creat at baseline is usually about 1.4. JOSE is from Current issue with Acute CHF/ contrast exposure. however most likely her creat would have gone up even if she did not get the contrast. Agree with cards about not using alissa/ARb/entresto/Aldacotne. No further workup needed for JOSE. her current problem is SOB and needs to be managed first and foremost. She is very worried about the renal numbers--maybe more than she should and I did try to reassure her that it is expected to have some rise in creatinine in acute clinical setting. however unlikely that she will progress to renal replacement therapy. Gave her general guideline that as long as creat is < 2 and BUN < 100 no need to lower diuretics. She does not respond to low dose lasix dose. she does need diuretics even if it means somewhat worsened kidney function. at this point the goal is to make her breathing better. Creat running similar at 1.6---1.8 last few days. will count this as baseline (3) Acute on chronic congestive heart failure: Change to oral lasix 80 po bid from tomorrow. k is 3.3. raise kcl to 40 bid. Some rise in creat is acceptable and expected given her underlying issues with CKD/Dm/Age/WILSON/Single functional Kidney. Agree with cards about not using alissa/ARb/entresto/Aldactone. S--breathing better but keith snot feel 100% back to baseline. Good urine Output. BP is still somewhat high. K was low. physical examination elderly white female who is awake alert oriented x3 and she is very knowledgeable with all her complicated medical problems. excellent cognitive status she is however very short of breath and unable to speak in full long sentence mucous membrane is moist neck is supple JVD is present chest bilateral decreased breath sound at the bases with occasional bilateral rhonchi CVS S1 and S2 regular soft systolic murmur heard trace edema abdomen is soft nontender extremities shows trace edema skin does not show any obvious rash Results & Data Vital Signs (Past 12 Hours) Vital Signs Temp Pulse Pulse Resp BP BP Pulse Ox 12/12/23 11:47 36.8 C 66 16 146/64 H 96 12/12/23 08:16 12/12/23 08:00 12/12/23 07:30 36.9 C 72 18 147/66 H 95 12/12/23 07:07 64 12/12/23 06:27 172/70 H 12/12/23 03:40 36.7 C 67 17 126/74 96 Pulse Ox O2 Del Method O2 Del Method O2 Flow Rate O2 Flow Rate 12/12/23 11:47 Nasal Cannula 12/12/23 08:16 Nasal Cannula 2 12/12/23 08:00 95 Nasal Cannula 2 12/12/23 07:30 Nasal Cannula 2 12/12/23 07:07 12/12/23 06:27 12/12/23 03:40 Nasal Cannula 1.5
--- NOTE | 2023-12-12 12:25 | Cardiology Progress Note ---
Date of Service December 12, 2023 Assessment & Plan (1) Acute on chronic congestive heart failure: (2) Hypoxia: (3) Anemia: (4) LBBB (left bundle branch block): (5) Elevated troponin: (6) Hypertension, uncontrolled: (7) JOSE (acute kidney injury): Plan 88 year old female admitted with signs and symptoms of acute decompensated congestive heart failure with associated hypoxemia and uncontrolled hypertension. Patient with longstanding history of hypertension, diastolic heart failure, stage III chronic kidney disease, atherosclerotic carotid disease, renal artery stenosis, presumed underlying coronary artery disease. Troponin mildly elevated likely secondary to demand ischemia in the setting of acute decompensated heart failure, hypertension, and CKD with acute renal dysfunction noted following administration of IV contrast. Recommendations: 1. IV furosemide discontinued, transitioned to oral furosemide by Nephrology early today. 2. Consider transfusion of pRBC's 3. Increase activity as tolerated. I spent a total of 19 minutes on the date of service in preparation, delivery, and documentation of the care provided to this patient excluding any time spent in the performance of separately billed services. This visit was a split-shared visit with the substantive portion of the medical decision making performed by the supervising rn liaison/billing provider. Admission and Anticipated Discharge Date Admission Date: December 06, 2023 Supervising Physician Co-Signing Physician Notes I have personally performed a history and physical examination on the patient. I have reviewed the advance practitioner's documentation, and I agree with, and take responsibility for the plan of care. Blood pressure control improved. Continue IV diuresis. I spent a total of 10 minutes on the date of service in preparation, delivery, and documentation of the care provided to this patient, excluding any time spent in the performance of separately billed services. Subjective Patient seen and examined. Chart, medications, telemetry reviewed. Notes feeling better emotionally and physically today. Telemetry: Sinus with ventricular ectopy, heart rates in the 70s Review of Systems Review of Systems: Complete review of systems is otherwise as stated above, negative, or noncontributory Physical Exam Physical Exam: General: A&Ox3. NAD. HENT: Normocephalic. Atraumatic. Eyes: PER. Conjunctiva pink, sclera clear. Neck: No JVD. Heart: Irregular with occasional ectopy, 70 bpm. + Gallop. Soft systolic ejection murmur. Lungs: Clear. No wheeze. Abdomen: +BS. Soft. Nontender. No masses or organomegaly. Extremities: No edema. No clubbing. No cyanosis Limited neurological examination is without focal deficits. Results & Data Vital Signs (Past 12 Hours) Vital Signs Temp Pulse Pulse Resp BP BP Pulse Ox 12/12/23 11:47 36.8 C 66 16 146/64 H 96 12/12/23 08:16 12/12/23 08:00 12/12/23 07:30 36.9 C 72 18 147/66 H 95 12/12/23 07:07 64 12/12/23 06:27 172/70 H 12/12/23 03:40 36.7 C 67 17 126/74 96 Pulse Ox O2 Del Method O2 Del Method O2 Flow Rate O2 Flow Rate 12/12/23 11:47 Nasal Cannula 12/12/23 08:16 Nasal Cannula 2 12/12/23 08:00 95 Nasal Cannula 2 12/12/23 07:30 Nasal Cannula 2 12/12/23 07:07 12/12/23 06:27 12/12/23 03:40 Nasal Cannula 1.5 Laboratory Results CBC 12/12/23 Range/Units 06:14 Hgb 7.7 L (12.0-16.0) g/dl Hct 23.9 L (37.0-47.0) % Comprehensive Metabolic Panel 12/12/23 Range/Units 06:14 Sodium 136 (136-145) mmol/L Potassium 3.4 L (3.5-5.1) mmol/L Chloride 101 (98-107) mmol/L Carbon Dioxide 26 (21-32) mmol/L BUN 42 H (6-23) mg/dl Creatinine 1.65 H (0.6-1.2) mg/dl Glucose 146 H (70-99(Fasting)) mg/dl Calcium 9.4 (8.6-10.3) mg/dl Intake and Output 12/11/23 12/12/23 12/12/23 22:59 06:59 14:59 Intake Total 360 / 360 Output Total 500 / 2351 900 / 2351 Balance -500 / -1591 -900 / -1591 360 / 360 Intake: Oral 360 / 360 Output: Urine 500 / 2350 900 / 2350 Other: Weight 82 kg (3) Anemia Anemia type: unspecified type Qualified Code(s): D64.9 - Anemia, unspecified
[2023-12-12] MEDS: POTASSIUM CHLORIDE CRTAB 20 MEQ TABCR PO SCH (17:26)
[2023-12-12] MEDS: FUROSEMIDE 80 MG TAB PO SCH (17:26)
[2023-12-13 08:22] LABS: Hematocrit (blood only) 25.2 % (37.0-47.0); Hemoglobin 8.2 g/dl (12.0-16.0)
[2023-12-13 08:43] LABS: BUN Creatinine Ratio 26.7 (10-20); Calcium 9.9 mg/dl (8.6-10.3); Creatinine Clr Calc Pharmacy 23.6 ml/min; Est GFR (African American) 32.5 ml/min; Est GFR (Non-African American) 28.1 ml/min; Magnesium 1.7 mg/dl (1.7-2.4); Potassium 3.8 mmol/L (3.5-5.1)
--- NOTE | 2023-12-13 11:18 | Cardiology Progress Note ---
Date of Service December 13, 2023 Assessment & Plan (1) Acute on chronic congestive heart failure: (2) Hypoxia: (3) Anemia: (4) LBBB (left bundle branch block): (5) Elevated troponin: (6) Hypertension, uncontrolled: (7) JOSE (acute kidney injury): Plan 88 year old female admitted with signs and symptoms of acute decompensated congestive heart failure with associated hypoxemia and uncontrolled hypertension. Patient with longstanding history of hypertension, diastolic heart failure, stage III chronic kidney disease, atherosclerotic carotid disease, renal artery stenosis, presumed underlying coronary artery disease. Troponin mildly elevated likely secondary to demand ischemia in the setting of acute decompensated heart failure, hypertension, and CKD with acute renal dysfunction noted following administration of IV contrast. Medications as presently prescribed. Patient has already been transitioned to oral furosemide. Increase activity as tolerated. Please contact with any questions or concerns. I spent a total of 16 minutes on the date of service in preparation, delivery, and documentation of the care provided to this patient excluding any time spent in the performance of separately billed services. This visit was a split-shared visit with the substantive portion of the medical decision making performed by the supervising assembler arranger/billing provider. Admission and Anticipated Discharge Date Admission Date: December 06, 2023 Supervising Physician Co-Signing Physician Notes I have personally performed a history and physical examination on the patient. I have reviewed the advance practitioner's documentation, and I agree with, and take responsibility for the plan of care. Acute on chronic heart failure has improved with transition to p.o. diuretics Blood pressure control has improved. Please call with questions we will sign off I spent a total of 10 minutes on the date of service in preparation, delivery, and documentation of the care provided to this patient, excluding any time spent in the performance of separately billed services. Subjective Patient seen and examined. Chart, medications, and telemetry reviewed. Notes not sleeping well last night, little tired this morning. Otherwise feels well. No chest pain. No palpitations. No new or worsening shortness of breath. No lower extremity peripheral edema. Telemetry: Sinus with occasional atrial and ventricular ectopy, heart rates predominantly in the 60s. Hemoglobin 8.2, improved. Creatinine stable. Sodium 135. Review of Systems Review of Systems: Complete review of systems is otherwise as stated above, negative, or noncontributory Physical Exam Physical Exam: General: A&Ox3. NAD. HENT: Normocephalic. Atraumatic. Eyes: PER. Conjunctiva pink, sclera clear. Neck: No JVD. Heart: Regular at 66 bpm. Soft systolic ejection murmur. Lungs: Right basilar crackles. No wheeze. Abdomen: +BS. Soft. Nontender. No masses or organomegaly. Extremities: No edema. No clubbing. No cyanosis Limited neurological examination is without focal deficits. Results & Data Vital Signs (Past 12 Hours) Vital Signs Temp Pulse Pulse Resp BP Pulse Ox Pulse Ox 12/13/23 11:02 36.8 C 70 12 158/58 H 98 12/13/23 09:29 12/13/23 08:37 65 12/13/23 08:00 97 12/13/23 07:35 37.1 C 65 18 166/79 H 97 12/13/23 02:10 36.9 C 66 18 149/60 H 96 12/13/23 01:00 94 12/13/23 00:00 94 O2 Del Method O2 Del Method O2 Flow Rate O2 Flow Rate 12/13/23 11:02 Nasal Cannula 2 12/13/23 09:29 Nasal Cannula 2 12/13/23 08:37 12/13/23 08:00 Nasal Cannula 2 12/13/23 07:35 Nasal Cannula 2 12/13/23 02:10 Room Air 12/13/23 01:00 Nasal Cannula 2 12/13/23 00:00 Nasal Cannula 2 Laboratory Results CBC 12/13/23 Range/Units 07:51 Hgb 8.2 L (12.0-16.0) g/dl Hct 25.2 L (37.0-47.0) % Comprehensive Metabolic Panel 12/13/23 Range/Units 07:51 Sodium 135 L (136-145) mmol/L Potassium 3.8 (3.5-5.1) mmol/L Chloride 99 (98-107) mmol/L Carbon Dioxide 28 (21-32) mmol/L BUN 43 H (6-23) mg/dl Creatinine 1.61 H (0.6-1.2) mg/dl Glucose 181 H (70-99(Fasting)) mg/dl Calcium 9.9 (8.6-10.3) mg/dl Intake and Output 12/12/23 12/13/23 12/13/23 22:59 06:59 14:59 Intake Total 1120 / 2420 220 / 2420 Output Total 1200 / 1200 Balance 1120 / 1220 -980 / 1220 Intake: Oral 1120 / 2420 220 / 2420 Output: Urine 1200 / 1200 Other: # Unmeasured Voids 1 3 Weight 79.2 kg Weight Measurement Method Standing Scale (3) Anemia Anemia type: unspecified type Qualified Code(s): D64.9 - Anemia, unspecified
--- NOTE | 2023-12-13 14:47 | Hospitalist Progress Note ---
Date of Service December 13, 2023 Assessment & Plan (1) Acute on chronic congestive heart failure: Plan: Acute respiratory failure with hypoxia Acute on chronic systolic and diastolic heart failure--POA Chronic left bundle branch block --CTA:No evidence of pulmonary embolus. Cardiomegaly and likely moderate edema. Small bilateral pleural effusions with underlying atelectasis. Bladder wall thickening compatible with infectious/inflammatory airways disease and reactive lymphadenopathy. -- Echo: Abnormal septal motion consistent with underlying LBBB. EF 45 to 50%. Mild mitral regurgitation with mild to moderate tricuspid regurgitation. Pulmonary artery systolic pressure estimated to be 50 mmHg. Grade 2 diastolic dysfunction Continue IV Lasix as per cardiology and nephrology - > now increased to 80 lasix iv bid Appreciate cardiology input Carvedilol dose increased to 37.5 mg twice a day Imdur dose increased to 40 mg 3 times a day Continue supplemental oxygen as needed, currently on 1.5 L of suppl.O2 Monitor volume status, I's and O's, daily weight Avoid HCTZ, ANANT, ARB, Entresto, spironolactone, eplerenone due to renal dysfunction/solitary kidney/poor tolerance per cardiology May need 2 step prior to discharge Continued IV diuresis 80 iv bid -> already switched to PO lasix Nebs as needed Mild troponin elevation Likely demand ischemia secondary to above Monitor Chronic hyponatremia Likely due to diuretics Hypokalemia Monitor sodium levels Replete electrolytes as needed Current Na 135 Nephrology following PVD Continue aspirin, statin Hypertension Continue amlodipine, Coreg, hydralazine Also on isosorbide Monitor BP Hyperlipidemia on statin DM II Last HbA1c 5.0 Continue insulin while hospitalized Monitor BGs CKD IV H/O renal artery stenosis Avoid nephrotoxic agents as able Monitor renal function Nephrology following Creatinine 1.6 today Chronic Anemia MUGS No acute bleeding issues Monitor CBC 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 O2 Cardiology and nephrology following - switched lasix to PO yesterday Pt denies any chest pain, abdominal pain, dizziness Review of Systems Review of Systems: All systems reviewed & are unremarkable except as noted in Subjective Physical Exam Physical Exam: General Appearance: Moderately built and nourished, elderly F in NAD, on suppl. O2 Head: NC/AT Eyes: normal inspection, EOMI Neck: supple Respiratory/Chest: Decreased breath sounds, basal crackles, No accessory muscle use Cardiovascular: S1, S2, +murmur Abdomen/GI:Soft, Non tender, Bowel sounds present Extremities/Musculoskeletal:normal inspection, + min LE edema Neurologic/Psych:AAOX3, answers appropriately, speech fluent, moves extremities Skin: normal color, warm Results & Data Results & Data Vital Signs (Past 12 Hours) Vital Signs Temp Pulse Pulse Resp BP Pulse Ox Pulse Ox 12/13/23 11:02 36.8 C 70 12 158/58 H 98 12/13/23 09:29 12/13/23 08:37 65 12/13/23 08:00 97 12/13/23 07:35 37.1 C 65 18 166/79 H 97 O2 Del Method O2 Del Method O2 Flow Rate O2 Flow Rate 12/13/23 11:02 Nasal Cannula 2 12/13/23 09:29 Nasal Cannula 2 12/13/23 08:37 12/13/23 08:00 Nasal Cannula 2 12/13/23 07:35 Nasal Cannula 2 Laboratory Results 12/13/23 12/13/23 12/13/23 Range/Units 11:08 07:51 07:18 Hgb 8.2 L (12.0-16.0) g/dl Hct 25.2 L (37.0-47.0) % Sodium 135 L (136-145) mmol/L Potassium 3.8 (3.5-5.1) mmol/L Chloride 99 (98-107) mmol/L Carbon Dioxide 28 (21-32) mmol/L Anion Gap 8 (3-11) BUN 43 H (6-23) mg/dl Creatinine 1.61 H (0.6-1.2) mg/dl Est Cr Clr Drug Dosing 23.6 ml/min Est GFR ( Amer) 32.5 ml/min Est GFR (Non-Af Amer) 28.1 ml/min BUN/Creatinine Ratio 26.7 H (10-20) Glucose 181 H (70-99(Fasting)) mg/dl POC Glucose 286 H 172 H (70-99) mg/dl Calcium 9.9 (8.6-10.3) mg/dl Magnesium 1.7 (1.7-2.4) mg/dl 12/12/23 12/12/23 Range/Units 20:35 15:57 Hgb (12.0-16.0) g/dl Hct (37.0-47.0) % Sodium (136-145) mmol/L Potassium (3.5-5.1) mmol/L Chloride (98-107) mmol/L Carbon Dioxide (21-32) mmol/L Anion Gap (3-11) BUN (6-23) mg/dl Creatinine (0.6-1.2) mg/dl Est Cr Clr Drug Dosing ml/min Est GFR ( Amer) ml/min Est GFR (Non-Af Amer) ml/min BUN/Creatinine Ratio (10-20) Glucose (70-99(Fasting)) mg/dl POC Glucose 250 H 152 H (70-99) mg/dl Calcium (8.6-10.3) mg/dl Magnesium (1.7-2.4) mg/dl Medications Administered Current Inpatient Medications Acetaminophen (Acetaminophen 325 Mg Tab) 650 mg PO QID PRN PRN Reason: pain/fever Stop: 01/05/24 23:02 Last Admin: 12/08/23 07:53 Dose: 650 mg Amlodipine Besylate (Amlodipine Besylate 5 Mg Tab) 10 mg PO [facility] Stop: 01/06/24 08:59 Last Admin: 12/13/23 09:05 Dose: 10 mg Aspirin (Aspirin 81 Mg Ectab) [facility]: 01/06/24 08:59 Last Admin: 12/13/23 09:04 Dose: 81 mg Atorvastatin Calcium (Atorvastatin 40 Mg Tab) 80 mg PO [facility] Stop: 01/06/24 20:59 Last Admin: 12/12/23 21:30 Dose: 80 mg Carvedilol (Carvedilol 12.5 Mg Tab) 37.5 mg PO BIDM [facility] Stop: 01/08/24 16:59 Last Admin: 12/13/23 09:06 Dose: 37.5 mg Cyanocobalamin (Cyanocobalamin (B-12) 500 Mcg Tablet) 500 [facility] [place] Stop: 01/06/24 08:59 Last Admin: 12/13/23 09:04 Dose: 500 mcg Dextrose (Dextrose 50% 50 Ml Syringe) 25 - 50 ml IV UD PRN; Protocol PRN Reason: Hypoglycemia Protocol Stop: 01/06/24 01:02 Folic Acid (Folic Acid 1 Mg Tab) 1 mg PO QAM [facility] Stop: 01/06/24 08:59 Last Admin: 12/13/23 09:05 Dose: 1 mg Furosemide (Furosemide 80 Mg Tab) 80 mg PO BID17 [facility] Stop: 01/11/24 16:59 Last Admin: 12/13/23 09:04 Dose: 80 mg Glucagon (Glucagon For Inj 1 Mg Vial) 1 mg SQ UD PRN; Protocol PRN Reason: Hypoglycemia Protocol Stop: 01/06/24 01:02 Glucose (Glucose 40% Gel 15 Gm Tube) 15 - 30 gm PO UD PRN; Protocol PRN Reason: Hypoglycemia Protocol Stop: 01/06/24 01:02 Glucose (Glucose 10 Tab/Tube) 4 - 8 tab PO UD PRN; Protocol PRN Reason: Hypoglycemia Treatment Stop: 01/06/24 01:02 Guaifenesin (Guaifenesin 600 Mg Tabcr) 600 mg PO Q12 [facility] Stop: 01/08/24 09:34 Last Admin: 12/13/23 09:04 Dose: 600 mg Heparin Sodium (Porcine) (Heparin Sod 5,000 Unit/0.5 Ml Vial) 5,000 units SQ Q8 [facility] Stop: 01/08/24 07:59 Last Admin: 12/13/23 13:31 Dose: 5,000 units Hydralazine HCl (Hydralazine Tab 50 Mg Tab) 100 mg PO TID [facility] Stop: 01/06/24 08:59 Last Admin: 12/13/23 13:31 Dose: 100 mg Promethazine HCl 6.25 mg/ (Sodium Chloride) 50.25 mls @ 201 mls/hr IV Q6H PRN PRN Reason: Nausea And Vomiting Stop: 01/05/24 23:02 Insulin Aspart (Insulin Aspart Per Unit Charge) 0 units SC ACHS [facility] Stop: 01/06/24 01:29 Last Admin: 12/13/23 12:22 Dose: 7 units Insulin Glargine (Lantus Per Unit Charge) 15 units SC QAM [facility] Stop: 01/07/24 08:59 Last Admin: 12/13/23 08:57 Dose: 15 units Isosorbide Dinitrate (Isosorbide Dinitrate 20 Mg Tab) 40 mg PO TID@0700,1200,1700 [facility] Stop: 01/06/24 11:59 Last Admin: 12/13/23 11:04 Dose: 40 mg Levalbuterol HCl (Levalbuterol Hcl 0.63 Mg/3 Ml Neb) 0.63 mg NEB Q6H PRN; Protocol PRN Reason: Shortness Of Breath Or Wheezing Stop: 01/06/24 10:39 Last Admin: 12/11/23 07:18 Dose: 0.63 mg Loratadine (Loratadine 10 Mg Tab) 10 mg PO HS [facility] Stop: 01/06/24 20:59 Last Admin: 12/12/23 21:30 Dose: 10 mg Magnesium Chloride (Magnesium Chloride W/Calcium 64mg Delayed Rel Tab) 64 mg PO DAILY [facility] Stop: 01/06/24 08:59 Last Admin: 12/13/23 09:06 Dose: 64 mg Melatonin (Melatonin 3 Mg Tab) 3 mg PO HS PRN PRN Reason: Sleep Stop: 01/10/24 19:23 Last Admin: 12/12/23 21:37 Dose: 3 mg Miscellaneous (Carbohydrates For Hypoglycemia ) 15 - 30 gm PO UD PRN PRN Reason: Hypoglycemia Protocol Stop: 01/06/24 01:02 Potassium Chloride (Potassium Chloride Crtab 20 Meq Tabcr) 40 meq PO BID17 [facility] Stop: 01/11/24 16:59 Last Admin: 12/13/23 09:04 Dose: 40 meq Sertraline HCl (Sertraline Hcl 50 Mg Tablet) 50 mg PO QAM [facility] Stop: 01/06/24 09:14 Last Admin: 12/13/23 09:04 Dose: 50 mg Tramadol HCl (Tramadol Hcl 50 Mg Tablet) 25 mg PO Q4H PRN PRN Reason: Pain Stop: 01/05/24 23:02
[2023-12-14 06:22] LABS: Hematocrit (blood only) 25.2 % (37.0-47.0); Hemoglobin 8.1 g/dl (12.0-16.0)
[2023-12-14 06:30] LABS: BUN Creatinine Ratio 24.6 (10-20); Calcium 9.8 mg/dl (8.6-10.3); Creatinine Clr Calc Pharmacy 22.7 ml/min; Est GFR (African American) 31.1 ml/min; Est GFR (Non-African American) 26.8 ml/min; Magnesium 1.7 mg/dl (1.7-2.4); Phosphorus 3.6 mg/dl (2.5-4.9); Potassium 3.7 mmol/L (3.5-5.1)
--- NOTE | 2023-12-14 09:36 | Hospitalist Progress Note ---
Date of Service December 14, 2023 Assessment & Plan (1) Acute on chronic congestive heart failure: Plan: Acute respiratory failure with hypoxia Acute on chronic systolic and diastolic heart failure--POA Chronic left bundle branch block --CTA:No evidence of pulmonary embolus. Cardiomegaly and likely moderate edema. Small bilateral pleural effusions with underlying atelectasis. Bladder wall thickening compatible with infectious/inflammatory airways disease and reactive lymphadenopathy. -- Echo: Abnormal septal motion consistent with underlying LBBB. EF 45 to 50%. Mild mitral regurgitation with mild to moderate tricuspid regurgitation. Pulmonary artery systolic pressure estimated to be 50 mmHg. Grade 2 diastolic dysfunction Continued IV Lasix as per cardiology and nephrology Appreciate cardiology input Carvedilol dose increased to 37.5 mg twice a day Imdur dose increased to 40 mg 3 times a day Continue supplemental oxygen as needed, currently on 2 L of suppl.O2 Monitor volume status, I's and O's, daily weight Avoid HCTZ, ANANT, ARB, Entresto, spironolactone, eplerenone due to renal dysfunction/solitary kidney/poor tolerance per cardiology May need 2 step prior to discharge Continued IV diuresis 80 iv bid -> already switched to PO lasix 80 BID - discussed w/ nephrology - plan to DC on the current dose Nebs as needed Mild troponin elevation Likely demand ischemia secondary to above Monitor Chronic hyponatremia Likely due to diuretics Hypokalemia Monitor sodium levels Replete electrolytes as needed Current Na 135 Nephrology following PVD Continue aspirin, statin Hypertension Continue amlodipine, Coreg, hydralazine Also on isosorbide Monitor BP Hyperlipidemia on statin DM II Last HbA1c 5.0 Continue insulin while hospitalized Monitor BGs CKD IV H/O renal artery stenosis Avoid nephrotoxic agents as able Monitor renal function Nephrology following Creatinine 1.6 today Chronic Anemia MUGS No acute bleeding issues Monitor 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 O2 Cardiology and nephrology consulted - switched lasix to PO. Discussed w/ nephrology today plan for 80 bid as outpt as well. Pt will have family at home tmrw - plan to DC tmrw. Will need 2 step. Pt denies any chest pain, abdominal pain, dizziness Review of Systems Review of Systems: All systems reviewed & are unremarkable except as noted in Subjective Physical Exam Physical Exam: General Appearance: Moderately built and nourished, elderly F in NAD, on suppl. O2 Head: NC/AT Eyes: normal inspection, EOMI Neck: supple Respiratory/Chest: Decreased breath sounds, mild basal crackles, No accessory muscle use Cardiovascular: S1, S2, +murmur Abdomen/GI:Soft, Non tender, Bowel sounds present Extremities/Musculoskeletal:normal inspection, + min LE edema Neurologic/Psych:AAOX3, answers appropriately, speech fluent, moves extremities Skin: normal color, warm Results & Data Results & Data Vital Signs (Past 12 Hours) Vital Signs Temp Pulse Pulse Resp BP BP Pulse Ox 12/14/23 07:15 36.8 C 57 L 19 168/52 H 98 12/14/23 07:00 65 12/14/23 03:08 36.9 C 63 18 148/62 H 99 12/14/23 01:00 12/14/23 00:00 12/13/23 23:04 36.6 C 66 18 122/59 L 97 12/13/23 22:00 60 Pulse Ox O2 Del Method O2 Del Method O2 Flow Rate O2 Flow Rate 12/14/23 07:15 Nasal Cannula 2 12/14/23 07:00 12/14/23 03:08 Nasal Cannula 2.0 12/14/23 01:00 96 Nasal Cannula 2 12/14/23 00:00 96 Nasal Cannula 2 12/13/23 23:04 Nasal Cannula 2.0 12/13/23 22:00 Laboratory Results 12/14/23 12/14/23 12/13/23 Range/Units 07:12 05:32 20:41 Hgb 8.1 L (12.0-16.0) g/dl Hct 25.2 L (37.0-47.0) % Sodium 135 L (136-145) mmol/L Potassium 3.7 (3.5-5.1) mmol/L Chloride 99 (98-107) mmol/L Carbon Dioxide 27 (21-32) mmol/L Anion Gap 9 (3-11) BUN 41 H (6-23) mg/dl Creatinine 1.67 H (0.6-1.2) mg/dl Est Cr Clr Drug Dosing 22.7 ml/min Est GFR ( Amer) 31.1 ml/min Est GFR (Non-Af Amer) 26.8 ml/min BUN/Creatinine Ratio 24.6 H (10-20) Glucose 153 H (70-99(Fasting)) mg/dl POC Glucose 179 H 268 H (70-99) mg/dl Calcium 9.8 (8.6-10.3) mg/dl Phosphorus 3.6 (2.5-4.9) mg/dl Magnesium 1.7 (1.7-2.4) mg/dl 12/13/23 12/13/23 Range/Units 16:09 11:08 Hgb (12.0-16.0) g/dl Hct (37.0-47.0) % Sodium (136-145) mmol/L Potassium (3.5-5.1) mmol/L Chloride (98-107) mmol/L Carbon Dioxide (21-32) mmol/L Anion Gap (3-11) BUN (6-23) mg/dl Creatinine (0.6-1.2) mg/dl Est Cr Clr Drug Dosing ml/min Est GFR ( Amer) ml/min Est GFR (Non-Af Amer) ml/min BUN/Creatinine Ratio (10-20) Glucose (70-99(Fasting)) mg/dl POC Glucose 142 H 286 H (70-99) mg/dl Calcium (8.6-10.3) mg/dl Phosphorus (2.5-4.9) mg/dl Magnesium (1.7-2.4) mg/dl Medications Administered Current Inpatient Medications Acetaminophen (Acetaminophen 325 Mg Tab) 650 mg PO QID PRN PRN Reason: pain/fever Stop: 01/05/24 23:02 Last Admin: 12/08/23 07:53 Dose: 650 mg Amlodipine Besylate (Amlodipine Besylate 5 Mg Tab) [address] [facility] Stop: 01/06/24 08:59 Last Admin: 12/14/23 08:24 Dose: 10 mg Aspirin (Aspirin 81 Mg Ectab) [address] [facility] Stop: 01/06/24 08:59 Last Admin: 12/14/23 08:25 Dose: 81 mg Atorvastatin Calcium (Atorvastatin 40 Mg Tab) 80 mg PO [facility] Stop: 01/06/24 20:59 Last Admin: 12/13/23 21:22 Dose: 80 mg Carvedilol (Carvedilol 12.5 Mg Tab) 37.5 mg PO BIDM [facility] Stop: 01/08/24 16:59 Last Admin: 12/14/23 08:25 Dose: 37.5 mg Cyanocobalamin (Cyanocobalamin (B-12) 500 Mcg Tablet) 500 mcg PO QAM [facility] Stop: 01/06/24 08:59 Last Admin: 12/14/23 08:27 Dose: 500 mcg Dextrose (Dextrose 50% 50 Ml Syringe) 25 - 50 ml IV UD PRN; Protocol PRN Reason: Hypoglycemia Protocol Stop: 01/06/24 01:02 Folic Acid (Folic Acid 1 Mg Tab) 1 mg PO QAM [facility] Stop: 01/06/24 08:59 Last Admin: 12/14/23 08:25 Dose: 1 mg Furosemide (Furosemide 80 Mg Tab) 80 mg PO BID17 [facility] Stop: 01/11/24 16:59 Last Admin: 12/14/23 08:25 Dose: 80 mg Glucagon (Glucagon For Inj 1 Mg Vial) 1 mg SQ UD PRN; Protocol PRN Reason: Hypoglycemia Protocol Stop: 01/06/24 01:02 Glucose (Glucose 40% Gel 15 Gm Tube) 15 - 30 gm PO UD PRN; Protocol PRN Reason: Hypoglycemia Protocol Stop: 01/06/24 01:02 Glucose (Glucose 10 Tab/Tube) 4 - 8 tab PO UD PRN; Protocol PRN Reason: Hypoglycemia Treatment Stop: 01/06/24 01:02 Guaifenesin (Guaifenesin 600 Mg Tabcr) 600 mg PO Q12 [facility] Stop: 01/08/24 09:34 Last Admin: 12/14/23 08:26 Dose: 600 mg Heparin Sodium (Porcine) (Heparin Sod 5,000 Unit/0.5 Ml Vial) 5,000 units SQ Q8 [facility] Stop: 01/08/24 07:59 Last Admin: 12/14/23 06:03 Dose: 5,000 units Hydralazine HCl (Hydralazine Tab 50 Mg Tab) 100 mg PO TID [facility] Stop: 01/06/24 08:59 Last Admin: 12/14/23 08:26 Dose: 100 mg Promethazine HCl 6.25 mg/ (Sodium Chloride) 50.25 mls @ 201 mls/hr IV Q6H PRN PRN Reason: Nausea And Vomiting Stop: 01/05/24 23:02 Magnesium Sulfate/Dextrose (Magnesium Sulfate / D5w) 1 gm in 100 mls @ 50 mls/hr IV ONE ONE Stop: 12/14/23 11:34 Insulin Aspart (Insulin Aspart Per Unit Charge) 0 units SC ACHS [facility] Stop: 01/06/24 01:29 Last Admin: 12/14/23 08:24 Dose: 4 units Insulin Glargine (Lantus Per Unit Charge) 15 units SC QAM [facility] Stop: 01/07/24 08:59 Last Admin: 12/14/23 08:23 Dose: 15 units Isosorbide Dinitrate (Isosorbide Dinitrate 20 Mg Tab) 40 mg PO TID@0700,1200,1700 [facility] Stop: 01/06/24 11:59 Last Admin: 12/14/23 08:27 Dose: 40 mg Levalbuterol HCl (Levalbuterol Hcl 0.63 Mg/3 Ml Neb) 0.63 mg NEB Q6H PRN; Protocol PRN Reason: Shortness Of Breath Or Wheezing Stop: 01/06/24 10:39 Last Admin: 12/11/23 07:18 Dose: 0.63 mg Loratadine (Loratadine 10 Mg Tab) 10 mg PO HS [facility] Stop: 01/06/24 20:59 Last Admin: 12/13/23 21:20 Dose: 10 mg Magnesium Chloride (Magnesium Chloride W/Calcium 64mg Delayed Rel Tab) 64 mg PO DAILY [facility] Stop: 01/06/24 08:59 Last Admin: 12/14/23 08:25 Dose: 64 mg Melatonin (Melatonin 3 Mg Tab) 3 mg PO HS PRN PRN Reason: Sleep Stop: 01/10/24 19:23 Last Admin: 12/13/23 21:50 Dose: 3 mg Miscellaneous (Carbohydrates For Hypoglycemia ) 15 - 30 gm PO UD PRN PRN Reason: Hypoglycemia Protocol Stop: 01/06/24 01:02 Potassium Chloride (Potassium Chloride Crtab 20 Meq Tabcr) 40 meq PO BID17 [facility] Stop: 01/11/24 16:59 Last Admin: 12/13/23 21:21 Dose: 40 meq Sertraline HCl (Sertraline Hcl 50 Mg Tablet) 50 mg PO QAM [facility] Stop: 01/06/24 09:14 Last Admin: 12/14/23 08:25 Dose: 50 mg Tramadol HCl (Tramadol Hcl 50 Mg Tablet) 25 mg PO Q4H PRN PRN Reason: Pain Stop: 01/05/24 23:02
[2023-12-14] MEDS: MAGNESIUM SULFATE / D5W 1 GM/100 ML BAG IV ONE (10:54)
--- NOTE | 2023-12-14 13:49 | Nephrology Progress Note ---
Date of Service December 14, 2023 Assessment & Plan Admission and Anticipated Discharge Date Admission Date: December 06, 2023 Subjective Subjective Assessment & Plan (1) JOSE (acute kidney injury): (2) Acute on chronic kidney failure: She has JOSE component with abnormal creatinine coming mainly from her underlying CKd 3B. 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 Despite all that creat at baseline is usually about 1.4. JOSE is from Current issue with Acute CHF/ contrast exposure. however most likely her creat would have gone up even if she did not get the contrast. Agree with cards about not using alissa/ARb/entresto/Aldacotne. No further workup needed for JOSE. her current problem is SOB and needs to be managed first and foremost. She is very worried about the renal numbers--maybe more than she should and I did try to reassure her that it is expected to have some rise in creatinine in acute clinical setting. however unlikely that she will progress to renal replacement therapy. Gave her general guideline that as long as creat is < 2 and BUN < 100 no need to lower diuretics. She does not and will not respond to low dose lasix dose. she does need diuretics even if it means somewhat worsened kidney function. at this point the goal is to make her breathing better. Creat running similar at 1.6---1.8 last few days. will count this as baseline for discharge lasix 80 bid and kcl 40 bid. Do labs on thu or at PCP office to be done through nephrology ( result to me). f/u nephrology within 2-3 weeks. (3) Acute on chronic congestive heart failure: oral lasix 80 po bid for discharge also and kcl 40 bid. Some rise in creat is acceptable and expected given her underlying issues with CKD/Dm/Age/WILSON/Single functional Kidney. Agree with cards about not using alissa/ARb/entresto/Aldactone. S--breathing better but does not feel 100% back to baseline. Good urine Output. physical examination elderly white female who is awake alert oriented x3 and she is very knowledgeable with all her complicated medical problems. excellent cognitive status she is however very short of breath and unable to speak in full long sentence mucous membrane is moist neck is supple JVD is present chest bilateral decreased breath sound at the bases with occasional bilateral rhonchi CVS S1 and S2 regular soft systolic murmur heard trace edema abdomen is soft nontender extremities shows trace edema skin does not show any obvious rash Results & Data Vital Signs (Past 12 Hours) Vital Signs Temp Pulse Pulse Resp BP BP Pulse Ox 12/14/23 11:20 36.8 C 66 19 146/60 H 99 12/14/23 08:00 12/14/23 07:15 36.8 C 57 L 19 168/52 H 98 12/14/23 07:00 65 12/14/23 03:08 36.9 C 63 18 148/62 H 99 Pulse Ox O2 Del Method O2 Del Method O2 Flow Rate O2 Flow Rate 12/14/23 11:20 Nasal Cannula 2 12/14/23 08:00 95 Nasal Cannula 2 12/14/23 07:15 Nasal Cannula 2 12/14/23 07:00 12/14/23 03:08 Nasal Cannula 2.0
[2023-12-14] MEDS: SODIUM CHLORIDE 0.65% NA SOLN 45 ML (OCEAN) ONE (16:42)
[2023-12-15 06:32] LABS: Hemoglobin 8.7 g/dl (12.0-16.0)
[2023-12-15 06:48] LABS: BUN Creatinine Ratio 23.7 (10-20); Calcium 10.1 mg/dl (8.6-10.3); Creatinine Clr Calc Pharmacy 22.3 ml/min; Est GFR (African American) 30.7 ml/min; Est GFR (Non-African American) 26.5 ml/min; Magnesium 1.8 mg/dl (1.7-2.4); Phosphorus 3.4 mg/dl (2.5-4.9); Potassium 3.9 mmol/L (3.5-5.1)
--- NOTE | 2023-12-15 10:12 | Discharge Summary ---
Date of Service December 15, 2023 Admission HPI Per Admitting Provider History obtained from patient and records. Medical history significant for chronic diastolic heart failure (EF 65%, TTE 2023), LBBB, PVD, hypertension, hyperlipidemia, DM 2 insulin requiring, CRI (baseline creatinine 1.7), chronic hyponatremia, chronic anemia (baseline hemoglobin 8-9), MGUS, familial hypocalciuric hypercalcemia, mood disorder. Monthly confinements since August 2023. Recent confinement October 29 to November 09, 2023 for decompensated heart failure, norovirus infection. 3 days ago, patient noted cough symptoms productive of white sputum with some chills. Not sure about sick contacts after attending family gathering last week. Denies aspiration. Patient later noted shortness of breath even at rest and worse on lying down. Chest heaviness at the level of her diaphragm like somebody sitting on her chest. Compliant with home medications. Not sure about weight gain. Denies leg swelling. Compliant with daily 2 L fluid restriction No unusual headache symptoms. SBP 1 50-1 60s at home. Patient consulted ER for evaluation. IV Lasix administered at the ER. 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 Admission Exam Per Admitting Provider GENERAL: Slightly uncomfortable, pleasant, looks younger than stated age, anxious, obese, minimal respiratory distress SKIN: Normal color, warm HEENT: [place] palpebral conjunctivae, no ptosis, moist buccal mucosa, nasal cannula in place NECK : Supple, short neck, no tenderness CHEST : Decreased breath sounds, no tenderness HEART : RRR, no obvious murmurs ABDOMEN: Some distention, nontender EXTREMITIES : Minimal LE swelling, no LE tenderness, no other conspicuous deformities noted NEUROLOGIC : Coherent, no facial asymmetry, no other gross focality, slightly hard of hearing Principal Diagnosis Acute respiratory failure with hypoxia Acute on chronic congestive heart failure Discharge Exam General Appearance: WD/WN pleasant elderly F in NAD, on suppl. O2 Head: NC/AT Eyes: normal inspection, EOMI Neck: supple Respiratory/Chest: CTAB, minimal basal crackles (improved), no wheezes, No accessory muscle use Cardiovascular: S1, S2, +murmur Abdomen/GI:Soft, Non tender, Bowel sounds present Extremities/Musculoskeletal:normal inspection, + min LE edema Neurologic/Psych:AAOX3, answers appropriately, speech fluent, moves extremities Skin: normal color, warm Discharge Data Allergies Allergy/AdvReac Type Severity Reaction Status Date / Time latex Allergy Severe DIFFICULTY Verified 12/06/23 19:25 BREATHING, TONGUE SWELLS Penicillins Allergy Severe DIFFICULTY Verified 12/06/23 19:25 BREATHING, TONGUE SWELLS Sulfa (Sulfonamide Allergy Severe DIFFICULTY Verified 12/06/23 19:25 Antibiotics) BREATHING, TONGUE SWELLS Consultations 12/06/23 21:37 ED Decision to Admit Stat 12/07/23 01:03 Consult Cardiology Routine 12/09/23 09:33 Consult Nephrology Routine Ordered Studies 12/06/23 19:00 CT for pulmonary embolism PE [CT angio chest PE protocol] Stat FINDINGS: Lungs and pleura: Small bilateral pleural effusions are seen. Interlobular septal thickening is seen and there is bronchial wall thickening. Heart and pericardium: Cardiomegaly is seen with biatrial enlargement. Vessels: No evidence of pulmonary embolism. Moderate atherosclerotic disease is seen. Mediastinum and rin: Mediastinal lymph nodes measure up to 12 mm in diameter. Chest wall and lower neck: Unremarkable. Abdomen: A hiatal hernia is seen. Bones: Degenerative changes in the thoracic spine. IMPRESSION: 1. No evidence of pulmonary embolus. 2. Cardiomegaly and likely moderate edema. 3. Small bilateral pleural effusions with underlying atelectasis. 4. Bladder wall thickening compatible with infectious/inflammatory airways disease and reactive lymphadenopathy. 12/08/23 09:43 CT head/brain wo con Routine FINDINGS: Brain parenchyma: There is age-related involutional change noting mild subcortical and periventricular microangiopathic disease. There is no hemorrhage, mass effect, or evidence of acute territorial ischemia by CT criteria. [place]-white matter differentiation is preserved. No extra-axial fluid collection is seen. Ventricles, sulci, cisterns: Prominent secondary to involutional change. Intracranial vasculature: There is atherosclerotic calcification of the cavernous carotid and vertebral arteries. Calvarium: Unremarkable. Sinuses and mastoids: The visualized paranasal sinuses are clear. The mastoid air cells are well pneumatized. Orbits: The bony orbits are grossly intact. There are bilateral ocular lens im plants. IMPRESSION: There is no hemorrhage, mass effect, or evidence of acute territorial ischemia by CT criteria. Hospital Course (1) Acute on chronic congestive heart failure: Acute respiratory failure with hypoxia Acute on chronic systolic and diastolic heart failure--POA Chronic left bundle branch block --CTA:No evidence of pulmonary embolus. Cardiomegaly and likely moderate edema. Small bilateral pleural effusions with underlying atelectasis. Bladder wall thickening compatible with infectious/inflammatory airways disease and reactive lymphadenopathy. -- Echo: Abnormal septal motion consistent with underlying LBBB. EF 45 to 50%. Mild mitral regurgitation with mild to moderate tricuspid regurgitation. Pulmonary artery systolic pressure estimated to be 50 mmHg. Grade 2 diastolic dysfunction Continued IV Lasix as per cardiology and nephrology Appreciate cardiology input Carvedilol dose increased to 37.5 mg twice a day Imdur dose increased to 40 mg 3 times a day Continue supplemental oxygen as needed, currently on 2 L of suppl.O2 Monitor volume status, I's and O's, daily weight Avoid HCTZ, ANANT, ARB, Entresto, spironolactone, eplerenone due to renal dysfunction/solitary kidney/poor tolerance per cardiology May need 2 step prior to discharge Continued IV diuresis 80 iv bid -> already switched to PO lasix 80 BID - discussed w/ nephrology - plan to DC on the current dose Nebs as needed 2 step - needs 2L w/ ambulation Mild troponin elevation Likely demand ischemia secondary to above Monitor Chronic hyponatremia Likely due to diuretics Hypokalemia Monitor sodium levels Replete electrolytes as needed Current Na 135 Nephrology following - will also need outpt follow up - recommend BMP on Thu or - results to be sent to Dr. Smith ([facility] nephrology) PVD Continue aspirin, statin Hypertension Continue amlodipine, Coreg, hydralazine Also on isosorbide - dose was increased Monitor BP Hyperlipidemia on statin DM II Last HbA1c 5.0 Continue insulin while hospitalized Monitor BGs CKD IV H/O renal artery stenosis Avoid nephrotoxic agents as able Monitor renal function Nephrology following Creatinine 1.6 today Chronic Anemia MUGS No acute bleeding issues Monitor CBC Follows with [facility] area forester Mood disorder Continue sertraline Total Time Total Time Spent Total Time Spent (In Minutes): 60 Discharge Plan Discharge Items Patient Disposition: Home - Home Health Services Reason For Visit: RESP FAILURE Discharge Diagnosis: Acute respiratory failure with hypoxia Acute on chronic congestive heart failure Activity: Per Instructions section Non-emergency contact: Primary Care Provider, Gyroscopic Instrument Tester and Rehabilitation Director Call non-emergency contact if: you have any medication questions and your symptoms worsen Follow-up/Referrals: Cornel Smith MD [Surgeon] - (The Nephrology office will contact you for a follow up appointment/ lab work. ) Dalila Bauman MD [Primary Care Provider] - (Date & Time 12/21/2023 10:20 AM Provider Dalila Bauman MD Department General Internal Medicine [facility] ) Diet: Carb Consistent or DM2 and Heart Healthy Fluids: 2000ml (8 cups) Addtl Attending Provider Instructions: Follow up with your primary care doctor, dining room hostess, and resource development director. You will need blood work - BMP - done on Thursday or - results should be sent to nephrology (Dr. Smith). Take lasix 80 mg twice a day and potassium supplement 40 twice a day. Review you current medication list and take your medications as prescribed. Review your medications at your upcoming appointments with your health care providers. Use oxygen 2L via NC with ambulation. Pending Studies at Discharge: No Stand-Alone Forms: My [facility], Smoking Cessation Medications and DC Order Prescriptions: New potassium chloride 20 mEq Tablet,Er Particles/Crystals 40 meq PO BID Qty: 60 0RF furosemide 80 mg Tablet 80 mg PO BID Qty: 60 0RF carvedilol 12.5 mg Tablet 37.5 mg PO BIDM Qty: 60 0RF isosorbide dinitrate 20 mg Tablet 40 mg PO TID Qty: 60 0RF Continued repaglinide 2 mg Tablet 2 mg PO AC aspirin 81 mg Tablet,Delayed Release (Dr/Ec) 81 mg PO QAM acetaminophen 500 mg Tablet 1,000 mg PO Q8 PRN (Reason: Pain) sertraline 50 mg Tablet 25 mg PO QAM Qty: 30 0RF loratadine 10 mg tablet 10 mg PO HS Tradjenta 5 mg tablet 5 mg PO DAILY atorvastatin 80 mg tablet 80 mg PO HS Jardiance 25 mg tablet 25 mg PO DAILY coQ10 (ubiquinol) 200 mg Capsule 200 mg PO DAILY insulin degludec [Tresiba FlexTouch U-100] 100 unit/mL (3 mL) insulin pen 30 unit SUBCUT QAM Rx Instructions: original directions 30 units. 33 per pharmacy 10/30/23 PER [facility] "ON LANTUS 30 UNITS, UNTIL SHE GETS TRESBIA" Macular Health Formula 5-1-7.5 mg Capsule 1 cap PO QID carvedilol 25 mg Tablet 37.5 mg PO BIDM Qty: 90 0RF magnesium chloride [Mag 64] 64 mg Tablet,Delayed Release (Dr/Ec) 64 mg PO DAILY Qty: 30 0RF amlodipine 10 mg tablet 10 mg PO QAM melatonin 1 mg Tablet Extended Release 1 mg PO HS Rx Instructions: If not improved may increase t5 mg Prevagen 10 mg PO DAILY hydralazine 100 mg tablet 100 mg PO TID ferrous sulfate 325 mg (65 mg iron) Tablet,Delayed Release (Dr/Ec) 325 mg PO QAM Qty: 30 1RF folic acid 1 mg Tablet 1 mg PO QAM Qty: 30 0RF cyanocobalamin (vitamin B-12) 500 mcg Tablet 500 mcg PO QAM Qty: 30 0RF Discontinued isosorbide dinitrate 30 mg tablet 30 mg PO TID Qty: 90 1RF Rx Instructions: allow nitrate-free interval of 12-14 hrs per 24-hr period furosemide 40 mg Tablet 40 mg PO QAM Qty: 30 1RF potassium chloride 20 mEq tablet,ER particles/crystals 20 meq PO QAM Qty: 30 0RF Rx Instructions: Take potassium chloride 20 meq 2 times a day for 3 days and then take 20 meq daily Discharge Orders: Discharge Order (Routine); Ordered 12/15/23 Ordered By: Patricio Miramontes Admission Data Admit Date/Time: 12/06/23 23:01 Attending Provider: Patricio Miramontes Admit Provider: Olman Ramos Primary Care Provider: Dalila Bauman Other Providers: Olman Ramos; Mayra Isaacs; Martinez Lazaro; Wiliam Schroeder; Chavo Billy; Phuc Louis; Duane Montejo; May Gipson; Kari Tellez; Sheila Us; Mayra Barbour; Russ Lim; Cortes Acosta; Jaymie Park; Lila Alvarez; Idalmis Islas; Penny Mayfield; Asim Huff; Yvonne Goodrich; Masoud King; Eve Carney; Cornel Smith; Amina Anthony; Gonzalo Reece; Nicolasa De Luna
--- NOTE | 2023-12-15 13:35 | XRay Report ---
XR chest 1V portable HISTORY: 88 years-old Female follow up/ improvement COMPARISON: 12/08/2023 TECHNIQUE: AP view of the chest FINDINGS: Cardiac silhouette is enlarged. Atherosclerosis of the aorta. No pneumothorax. There is improvement o f the previously described pulmonary edema with decreased size of the pleural effusions and improved aeration of the lung bases. Bones appear grossly intact. IMPRESSION: 1. Cardiomegaly with improvement of the pulmonary edema. 2. Decreased size of the pleural effusions with improved aeration of the lung bases. ACT 112: Negative or not required by law. The above report was generated using voice recognition software. It may contain grammatical, syntax o r spelling errors. Electronically signed by: Deon Mercado M.D. 12/15/2023 1:34 PM
== END 2023-12-15 14:15 | disposition home health service (06) | DRG 291 ==
LOC: ED 17:41 → EDINP 23:01 → SUATTDRO 23:01 → 2E 12-07 01:02